=== PATIENT | male | born 1985 | race Caucasian/White ===

== ENCOUNTER 2023-06-08 20:18 | Emergency (ER) | payer OTHER, SELFPAY ==
[2023-06-08] VITALS (8 sets, daily range): BP systolic 119–181; BP diastolic 71–90; PULSE 90–125; RESP 14–55; TEMP 36.6; O2SAT 93–99; BMI 34.7
--- NOTE | 2023-06-08 20:33 | ECG_ITS ---
The [facility] Test Date: 2023-06-08 Pat Name: LOLIS QUINONES Department: Room: - Gender: Male All Source Intelligence: : 1985 Requested By: Order Number: [id number] Reading MD: QUOC KWONG Measurements Intervals [place] Rate: 89 P: 53 WV: 174 QRS: 85 QRSD: 112 T: 35 QT: 370 QTc: 416 Interpretive Statements 1100 Sinus rhythm 2440 Incomplete right bundle branch block 4068 Nonspecific Twave abnormality 9130 borderline ECG No previous ECG available for comparison Electronically Signed On 06-09-2023 18:42:19 EDT by QUOC KWONG
--- NOTE | 2023-06-08 20:34 | ED.GENADUL1 ---
HPI - General Adult General Chief complaint: Headache Stated complaint: STOKE LIKE SYMTOMS Time Seen by Provider: 06/08/23 20:27 History of Present Illness HPI narrative: 38-year-old male presents for a feeling of dizziness. It started about noon, the over eight hours ago. He doesn't seem to complain of a headache but he feels off balance and he felt like he was walking off to the side. He feels like he is spinning and he prefers to keep his eyes closed. No fever cough chest pain or shortness of breath. No localized weakness. Upon arrival he doesn't complain of weakness or headache, he just didn't feel good. He has no personal history of seizures. Related Data Allergies Allergy/AdvReac Type Severity Reaction Status Date / Time fentanyl Allergy Verified 06/08/23 20:27 Review of Systems ROS Narrative A ten point review of systems is negative except as noted above. Exam Narrative Exam Narrative: Nurses note and vital signs reviewed and patient is not hypoxic. General: The patient appears well and in no apparent distress. Patient is resting comfortably on cart. Skin: Warm, dry, no pallor noted. There is no rash noted. Head: Normocephalic, atraumatic Eye: Normal conjunctiva, no drainage, EOMI. PERRL Ears, Nose, Mouth, and Throat: oral mucosa is moist. Nares patent. Cardiovascular: Regular Rate and Rhythm Respiratory: Patient is in no distress, no accessory muscle use, lungs are clear to auscultation, no wheezing, rales or rhonchi Back: non-tender GI: no tenderness to palpation, no masses appreciated. No rebound, guarding, or rigidity noted. Musculoskeletal: The patient has no evidence of calf tenderness, no pitting edema, symmetrical pulses noted bilaterally Neurological: A&O x4, normal speech; upper and lower extremity strength five out five and symmetric. Cranial nerves II through XII are intact. no pronator drift. Psychiatric: Cooperative Constitutional Vital Signs, click to edit/add: Last Vital Signs Temp 97.9 F 06/08/23 20:21 Pulse 113 H 06/08/23 23:35 Resp 16 06/08/23 23:35 BP 135/78 06/08/23 23:35 Pulse Ox 94 L 06/08/23 23:35 O2 Del Method Mechanical Ventilator 09/30/23 23:35 FiO2 70 06/08/23 22:20 Course Vital Signs Vital signs: Vital Signs Temperature 97.9 F 06/08/23 20:21 Pulse Rate 90 06/08/23 20:21 Respiratory Rate 14 06/08/23 20:21 Blood Pressure 141/90 06/08/23 20:21 Pulse Oximetry 94 L 06/08/23 20:21 Temperature 97.9 F 06/08/23 20:21 Pulse Rate 113 H 06/08/23 23:35 Respiratory Rate 16 06/08/23 23:35 Blood Pressure 135/78 06/08/23 23:35 Pulse Oximetry 94 L 06/08/23 23:35 Oxygen Delivery Method Mechanical Ventilator 06/08/23 23:35 Fraction of Inspired Oxygen 70 06/08/23 22:20 Medical Decision Making MDM Narrative Medical decision making narrative: Tests were ordered and this included CAT scan. 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 No acute bleed was found. The patient started stating that he didn't feel good and then he became unresponsive. He appeared to be having a seizure and he was given IV Ativan. This did not change the seizure so he was given more IV Ativan and again this did not have any effect on his seizure. He became tachypneic and his oxygen saturation was dropping and decision was made by me to intubate the patient. He was given IV Ativan and IV etomidate and ultimately IV vecuronium after he was intubated for airway control. I discussed the case thoroughly with his mother and father and they're requesting transfer to [facility]. I've spoken to the accepting physician there, Dr. Barreto who accepts the patient. Family is in agreement. She recommends loading with 4 g of IV Keppra but only 2500 mg are available to me so this was ordered. She also recommended CTA of head and neck and this was ordered as well. Result is pending at the time of this dictation. His workup shows a normal white blood cell count and normal electrolytes. No evidence of urinary tract infection and his drug screen is negative. I've no clinical suspicion of meningitis. Alcohol level is negative. Arrangements are made for transfer. Initial attempt was made to have him flown but due to weather this is not possible so mobile ICU is ordered. He was given another dose of IV vecuronium for the CTA of head and neck. The initial dose of vecuronium had worn off at that point and he does not appear to be having any seizures but was apparently uncomfortable and was moving. Family was updated throughout the entire emergency department encounter. Differential Diagnosis Differential Diagnosis: intracranial hemorrhage, seizure, stroke Lab Data Lab results reviewed: Yes I reviewed the patient's lab results Labs: Lab Results 06/08/23 06/08/23 06/08/23 Range/Units 20:30 22:15 22:16 WBC 8.9 (4.0-11.0) 10^3/uL RBC 5.31 (4.70-6.10) 10^6/uL Hgb 15.8 (14.0-18.0) g/dL Hct 47.4 (42.0-54.0) % MCV 89.3 (80.0-94.0) fL MCH 29.8 (25.9-34.0) pg MCHC 33.3 (29.9-35.2) g/dL RDW 13.3 (11.0-15.0) % Plt Count 266 (150-450) 10^3/uL MPV 10.1 (9.5-13.5) fL Neut % (Auto) 57.9 (43.0-75.0) % Lymph % (Auto) 31.8 (20.5-60.0) % [place] % (Auto) 7.6 (1.7-12.0) % Eos % (Auto) 1.6 (0.9-7.0) % Baso % (Auto) 0.9 (0.2-2.0) % Neut # (Auto) 5.2 (1.4-6.5) 10^3/uL Lymph # (Auto) 2.8 (1.2-3.8) 10^3/uL [place] # (Auto) 0.7 (0.3-0.8) 10^3/uL Eos # (Auto) 0.1 (0.0-0.7) 10^3/uL Baso # (Auto) 0.1 (0.0-0.1) 10^3/uL Abs Immat Gran (auto) 0.02 (0.00-0.03) 10^3/uL Imm/Tot Granulo (auto) 0.2 (0.0-0.5) % Sodium 138 (136-145) mmol/L Potassium 3.7 (3.5-5.1) mmol/L Chloride 104 (98-107) mmol/L Carbon Dioxide 25.7 (21.0-32.0) mmol/L Anion Gap 12.0 BUN 16.0 (7.0-18.0) mg/dL Creatinine 0.79 (0.70-1.30) mg/dL Est GFR ( Amer) >60 (>=60) Est GFR (Non-Af Amer) >60 (>=60) BUN/Creatinine Ratio 20.3 Glucose 107 H (74-106) mg/dL Calcium 8.8 (8.5-10.1) mg/dL Urine Color Lt. yellow (YELLOW) Urine Clarity Clear (CLEAR) Urine pH 6.5 (5.0-9.0) Ur Specific [place] 1.015 (1.005-1.025) Urine Protein Negative (NEG/TRACE) mg/dL Urine Glucose (UA) Negative (NEGATIVE) mg/dL Urine Ketones Negative (NEGATIVE) mg/dL Urine Occult Blood Negative (NEGATIVE) Urine Nitrite Negative (NEGATIVE) Urine Bilirubin Negative (NEGATIVE) Urine Urobilinogen 0.2 (0.2-1.0) EU/dL Ur Leukocyte Esterase Negative (NEGATIVE) Urine RBC 0-2 (0-2) #/HPF Urine WBC 0-2 A (NONE SEEN) #/HPF Ur Squamous Epith Cells Rare (NONE/RARE) #/LPF Urine Crystals None seen (None Seen) #/HPF Urine Bacteria None seen (NONE SEEN) #/HPF Urine Casts Seen A (NONE SEEN) #/LPF Hyaline Casts Few Urine Mucus None seen (NONE SEEN) Urine Opiates Screen Negative (NEGATIVE) Ur Buprenorphine Scrn Negative (NEGATIVE) Ur Oxycodone Screen Negative (NEGATIVE) Urine Methadone Screen Negative (NEGATIVE) Ur Propoxyphene Screen Negative (NEGATIVE) Ur Barbiturates Screen Negative (NEGATIVE) U Tricyclic Antidepress Negative (NEGATIVE) Ur Phencyclidine Scrn Negative (NEGATIVE) Ur Amphetamines Screen Negative (NEGATIVE) U Methamphetamines Scrn Negative (NEGATIVE) U Benzodiazepines Scrn Negative (NEGATIVE) Urine Cocaine Screen Negative (NEGATIVE) U Cannabinoids Screen Negative (NEGATIVE) Ethanol Quant <3 mg/dL Imaging Data CT scan - head: Radiologist's impression: Procedure: CT head/brain wo con EXAM: CT head/brain wo con REASON FOR EXAM: Male, 38 years, dizzy. TECHNIQUE: Computed tomography of the head is performed in the axial projection from the base of the skull to the vertex. Sagittal and coronal reconstructed images are performed. Dose reduction techniques were achieved by using automated exposure control and/or adjustment of mA and/or KVP according to patient size and/or use of iterative reconstruction technique. COMPARISON: MRI 08/03/2015. 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 Normal calvarium. There is slight asymmetry to the ventricles, with the right lateral ventricle larger than the left. Normal brain parenchyma. Normal basal ganglia. Normal brainstem. The foramen magnum appears somewhat small. There is basilar invagination. There is calcification along the falx. There is no evidence for acute ischemia. There is no evidence for acute hemorrhage. The visualized paranasal sinuses are clear. 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 This finding was present on remote MRI is dating back to 04/20/2013 and 07/21/2015. 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 No acute hemorrhage is seen. The artificial intelligence algorithm dustlike this study as positive for intracranial hemorrhage, but this finding is due to the serpiginous vessel in the posterior fossa rather than a true hemorrhage. Electronically authenticated by: FRANCHESKA DANIELLE Date: 06/08/2023 21:40 Procedure: XR chest 1V EXAM: XR chest 1V HISTORY: postintubation COMPARISON: Chest radiographs dated 03/30/2021. TECHNIQUE: One view of the chest was obtained. FINDINGS: ACDF hardware is partially imaged in the lower cervical spine. An endotracheal tube terminates approximately 3.5 cm above the yazan. A nasogastric tube courses toward the upper abdomen though the tip is not seen. The cardiac silhouette is enlarged and increased in size compared to prior examination. There is linear atelectasis in the mid lungs. There are bibasilar opacities. There is no significant pneumothorax or pleural effusion. No acute osseous abnormality is seen. IMPRESSION: 1. An endotracheal tube terminates approximately 3.5 cm above the yazan. 2. Enlarged cardiac silhouette with bibasilar opacities which could represent atelectasis, aspiration changes, and/or pneumonia. Electronically authenticated by: Samara IBANEZ Date: 06/08/2023 22:48 ECG Data Attestation: I personally reviewed and interpreted this ECG as follows: (EKG on my interpretation shows normal sinus rhythm without acute change and a rate of 89.) Critical Care Time Critical Care Time Critical Care Time: Yes Total Critical Care Time: 120 Attestation: Due to the high probability of sudden and clinically significant deterioration in the patient's condition he/she required the highest level of my preparedness to intervene urgently I provided critical care time including documentation time, medication orders and management, reevaluation, vital sign assessment, ordering and reviewing of lab tests, ordering and reviewing of x-ray studies, and admission orders. Aggregate critical care time is 120 minutes including only time during which I was engaged in work directly related to his/her care and did not include time spent treating other patients simultaneously. Discharge Plan Discharge Chief Complaint: Headache Clinical Impression: Respiratory failure, Status epilepticus Patient Disposition: [facility] Time of Disposition Decision: 22:00 Discharge Location: [facility] Condition: Critical Mode of Transportation: EMS Procedures ED Procedure Instructions Procedures Procedures: The following procedure was performed by me. I made the decision to intubate this patient for airway control. His O2 sat was dropping and his teeth were clenched and he was becoming more tachypneic. He was given IV Ativan and IV etomidate. He was orotracheally intubated by me with a 7-0 tube with direct visualization of the tube passing between the cords and appropriate change on the capnometer. O2 saturation came up.
--- NOTE | 2023-06-08 20:41 | PC.NURSE ---
patients states around noon at work he developed some left sided weakness and felt like he had slurred speech. patient states he then went home and tried to get some rest but then around 730pm patientss mother states she is a nurse and assessed patient and felt like he had a left droop. this RN assessed patient and called dr stokes into room to assess patient. this RN did not observe slurred speech, no droop, patient trasferred self from wheelchair to bed. dr stokes at bedside and assessed patient and discussed plan of care with patient and patients mother. both verbalized understanding and agreement. IV established, EKG obtained.
[2023-06-08 20:58] LABS: Basophils Absolute Auto 0.1 10^3/uL (0.0-0.1); Basophils Percent Auto 0.9 % (0.2-2.0); Eosinophils Absolute Auto 0.1 10^3/uL (0.0-0.7); Eosinophils Percent Auto 1.6 % (0.9-7.0); Hematocrit 47.4 % (42.0-54.0); Hemoglobin 15.8 g/dL (14.0-18.0); Immature Granulocytes Abs Auto 0.02 10^3/uL (0.00-0.03); Immature Granulocytes Pct Auto 0.2 % (0.0-0.5); Lymphocytes Absolute Auto 2.8 10^3/uL (1.2-3.8); Lymphocytes Percent Auto 31.8 % (20.5-60.0); Mean Corpuscular HGB Conc 33.3 g/dL (29.9-35.2); Mean Corpuscular Hemoglobin 29.8 pg (25.9-34.0); Mean Corpuscular Volume 89.3 fL (80.0-94.0); Mean Platelet Volume 10.1 fL (9.5-13.5); Monocytes Absolute Auto 0.7 10^3/uL (0.3-0.8); Monocytes Percent Auto 7.6 % (1.7-12.0); Neutrophils Absolute Auto 5.2 10^3/uL (1.4-6.5); Neutrophils Percent Auto 57.9 % (43.0-75.0); Platelet Count 266 10^3/uL (150-450); Red Blood Count 5.31 10^6/uL (4.70-6.10); Red Cell Distribution Width 13.3 % (11.0-15.0); White Blood Count 8.9 10^3/uL (4.0-11.0)
[2023-06-08] MEDS: LORAZEPAM 2 MG/ML 1 ML VIAL 1 MG IV (21:27)
[2023-06-08 21:38] LABS: BUN Creatinine Ratio 20.3; Calcium 8.8 mg/dL (8.5-10.1); Carbon Dioxide 25.7 mmol/L (21.0-32.0); Chloride 104 mmol/L (98-107); Estimated GFR (African America >60 (>=60); Estimated GFR (Non-African Ame >60 (>=60); Glucose 107 mg/dL (74-106); Potassium 3.7 mmol/L (3.5-5.1); Sodium 138 mmol/L (136-145)
[2023-06-08] MEDS: VECURONIUM BROMIDE 10 MG VIAL IV (21:44)
--- NOTE | 2023-06-08 22:00 | XR_ITS ---
The [address] [address] Patient Name: LOLIS QUINONES MRN: [id number] date: 1985 Sex: M Assigned Patient Location: ER Current Patient Location: ER Accession/Order Number: [id number] Exam Date: 06/08/2023 22:01 Report Date: 06/08/2023 22:48 At the request of: ADRIÁN NICKERSON Procedure: XR chest 1V EXAM: XR chest 1V HISTORY: postintubation COMPARISON: Chest radiographs dated 03/30/2021. TECHNIQUE: One view of the chest was obtained. FINDINGS: ACDF hardware is partially imaged in the lower cervical spine. An endotracheal tube terminates approximately 3.5 cm above the yazan. A nasogastric tube courses toward the upper abdomen though the tip is not seen. The cardiac silhouette is enlarged and increased in size compared to prior examination. There is linear atelectasis in the mid lungs. There are bibasilar opacities. There is no significant pneumothorax or pleural effusion. No acute osseous abnormality is seen. XR/XR chest 1V IMPRESSION: 1. An endotracheal tube terminates approximately 3.5 cm above the yazan. 2. Enlarged cardiac silhouette with bibasilar opacities which could represent atelectasis, aspiration changes, and/or pneumonia. Electronically authenticated by: Samara IBANEZ Date: 06/08/2023 22:48
--- NOTE | 2023-06-08 22:15 | CT_ITS ---
[address] [address] Patient Name: LOLIS QUINONES MRN: [id number] date: 1985 Sex: M Assigned Patient Location: ER Current Patient Location: .MAIN Accession/Order Number: [id number] Exam Date: 06/08/2023 23:20 Report Date: 06/09/2023 00:17 At the request of: ADRIÁN NICKERSON Procedure: CT angio head CT angio neck, CT angio head INDICATION:38 years old; headache. Left-sided weakness and slurred speech with headache since noon today. Tingling and numbness in left hand since 7:30 PM.. TECHNIQUE: CT angiogram of the head and neck was performed. Coronal, sagittal and 3-D reformats were created and reviewed. Images were obtained both before and after contrast administration. Carotid stenosis measurements were made according to the NASCET criteria. Ionizing radiation dose reduced via iterative reconstruction/FBP blend and body size kV/mA adjustment. COMPARISON: Head CT dated 06/08/2023 at 8:51 PM. Brain MRI dated 08/03/2015. Chest CT dated 12/11/2021. FINDINGS: NECK FINDINGS: AORTIC ARCH: Normal origin of the innominate, left common carotid and left subclavian arteries. ANTERIOR CIRCULATION: Carotid arteries are patent. Carotid bifurcations are patent. Cervical ICA are patent up to the skull base. There is a vascular loop in the distal cervical ICA on the right. No stenosis or thrombus. No dissection. POSTERIOR CIRCULATION: The V1, V2, and V3 segments of vertebral artery on the left are patent. The right vertebral artery is occluded in the proximal V1 segment. No distal reconstitution is seen. DEVELOPMENTAL ANOMALIES: None. OTHER: Atelectasis versus dense consolidation within the visualized portion of the right lung. Recommend chest CT. HEAD BRAIN: Please see the report of the noncontrast head CT. ANTERIOR CIRCULATION: The intrapetrous, intracavernous, supraclinoid ICA are patent. Intracranial termini are patent. LEONIDAS patent bilaterally. MCA patent bilaterally. No stenosis or thrombus. No large vessel occlusion. Distal distributions are bilaterally symmetric. POSTERIOR CIRCULATION: The right vertebral artery is occluded with no intracranial reconstitution. There is fusiform dilatation and enlargement of the V4 segment of the left vertebral artery and basilar artery consistent with fusiform aneurysmal dilatation. This extends up to the midportion of the basilar artery. The basilar artery measures 10.88 mm in largest diameter. No intraluminal thrombus is appreciated. The AICA on the right arises from the aneurysmal dilatation. The PICA on the left arises from the dilated portion of the distal V4 segment. Basilar tip is a normal appearance. SCA patent bilaterally. PRESSURE WASHER patent bilaterally. Distal PRESSURE WASHER distributions are symmetric. No large vessel occlusion. DEVELOPMENTAL ANOMALIES: None. OTHER: No enhancing masses are seen. CT/CT angio head IMPRESSION: 1. 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 Previous MRI showed normal flow void in the right vertebral artery. 2. 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 Basilar artery measures up to 10.88 mm in largest diameter. The right AICA arises from the aneurysmal portion of the basilar artery. The left PICA arises from the aneurysmal portion of the left vertebral artery. Allowing for differences in technique, this appears to be larger as compared to the prior MRI This study was read during a downtime in the [employer] PACS system. The actual time dictated and approved is in the body of the report. A telephone call regarding the findings in examination was made to and acknowledged by Dr. Nickerson in emergency department at 12:00 AM on 06/09/2023. Electronically authenticated by: NAVEEN BAIRD Date: 06/09/2023 00:17
--- NOTE | 2023-06-08 22:15 | CT_ITS ---
[address] [address] Patient Name: LOLIS QUINONES MRN: [id number] date: 1985 Sex: M Assigned Patient Location: ER Current Patient Location: .MAIN Accession/Order Number: [id number] Exam Date: 06/08/2023 23:20 Report Date: 06/09/2023 00:17 At the request of: ADRIÁN NICKERSON Procedure: CT angio neck CT angio neck, CT angio head INDICATION:38 years old; headache. Left-sided weakness and slurred speech with headache since noon today. Tingling and numbness in left hand since 7:30 PM.. TECHNIQUE: CT angiogram of the head and neck was performed. Coronal, sagittal and 3-D reformats were created and reviewed. Images were obtained both before and after contrast administration. Carotid stenosis measurements were made according to the NASCET criteria. Ionizing radiation dose reduced via iterative reconstruction/FBP blend and body size kV/mA adjustment. COMPARISON: Head CT dated 06/08/2023 at 8:51 PM. Brain MRI dated 08/03/2015. Chest CT dated 12/11/2021. FINDINGS: NECK FINDINGS: AORTIC ARCH: Normal origin of the innominate, left common carotid and left subclavian arteries. ANTERIOR CIRCULATION: Carotid arteries are patent. Carotid bifurcations are patent. Cervical ICA are patent up to the skull base. There is a vascular loop in the distal cervical ICA on the right. No stenosis or thrombus. No dissection. POSTERIOR CIRCULATION: The V1, V2, and V3 segments of vertebral artery on the left are patent. The right vertebral artery is occluded in the proximal V1 segment. No distal reconstitution is seen. DEVELOPMENTAL ANOMALIES: None. OTHER: Atelectasis versus dense consolidation within the visualized portion of the right lung. Recommend chest CT. HEAD BRAIN: Please see the report of the noncontrast head CT. ANTERIOR CIRCULATION: The intrapetrous, intracavernous, supraclinoid ICA are patent. Intracranial termini are patent. LEONIDAS patent bilaterally. MCA patent bilaterally. No stenosis or thrombus. No large vessel occlusion. Distal distributions are bilaterally symmetric. POSTERIOR CIRCULATION: The right vertebral artery is occluded with no intracranial reconstitution. There is fusiform dilatation and enlargement of the V4 segment of the left vertebral artery and basilar artery consistent with fusiform aneurysmal dilatation. This extends up to the midportion of the basilar artery. The basilar artery measures 10.88 mm in largest diameter. No intraluminal thrombus is appreciated. The AICA on the right arises from the aneurysmal dilatation. The PICA on the left arises from the dilated portion of the distal V4 segment. Basilar tip is a normal appearance. SCA patent bilaterally. NET REPAIRER patent bilaterally. Distal NET REPAIRER distributions are symmetric. No large vessel occlusion. DEVELOPMENTAL ANOMALIES: None. OTHER: No enhancing masses are seen. CT/CT angio neck IMPRESSION: 1. 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 Previous MRI showed normal flow void in the right vertebral artery. 2. 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 Basilar artery measures up to 10.88 mm in largest diameter. The right AICA arises from the aneurysmal portion of the basilar artery. The left PICA arises from the aneurysmal portion of the left vertebral artery. Allowing for differences in technique, this appears to be larger as compared to the prior MRI This study was read during a downtime in the [employer] PACS system. The actual time dictated and approved is in the body of the report. A telephone call regarding the findings in examination was made to and acknowledged by Dr. Nickerson in emergency department at 12:00 AM on 06/09/2023. Electronically authenticated by: NAVEEN BAIRD Date: 06/09/2023 00:17
--- NOTE | 2023-06-08 22:35 | PC.NURSE ---
2109 was called to room by mother. Patient had stated to her he could not swallow and felt SOB. Vomited while in the room. Dr aware and orders received. In to medicated at 2214 and found patient unresponsive with grunting respirations and decorticate posturing. Dr called to room. Patient moved to room 6.
[2023-06-08 22:42] LABS: Ethanol <3 mg/dL
--- NOTE | 2023-06-08 22:44 | PC.NURSE ---
Addendum entered by Preeti Louie 06/08/23 23:30: Patient was placed on 70% not 40%. Original Note: 0535 Dr at cart side to intubate with 3 RN's and Respiratory. Placed a #7 ET tube 24 at lip. Vent settings Rate 18 TV 550 O2 40% Peep of 5 and rate of 14.
[2023-06-08 22:58] LABS: Amphetamine Screen Urine NEGATIVE (NEGATIVE); Barbiturates Screen Urine NEGATIVE (NEGATIVE); Benzodiazepines Screen Urine NEGATIVE (NEGATIVE); Buprenorphine Screen Urine NEGATIVE (NEGATIVE); Cannabinoid Screen Urine NEGATIVE (NEGATIVE); Cocaine Screen Urine NEGATIVE (NEGATIVE); Methadone Screen Urine NEGATIVE (NEGATIVE); Methamphetamines Screen Urine NEGATIVE (NEGATIVE); Opiate Screen Urine NEGATIVE (NEGATIVE); Oxycodone Screen Urine NEGATIVE (NEGATIVE); Phencyclidine Screen Urine NEGATIVE (NEGATIVE); Tricyclic Antidepressant Urine NEGATIVE (NEGATIVE)
[2023-06-08 22:59] LABS: Bilirubin Urine NEGATIVE (NEGATIVE); Blood Urine NEGATIVE (NEGATIVE); Clarity Urine CLEAR (CLEAR); Color Urine LT. YELLOW (YELLOW); Glucose Urine UA NEGATIVE (NEGATIVE); Ketones Urine NEGATIVE (NEGATIVE); Leukocyte Esterase Urine NEGATIVE (NEGATIVE); Nitrite Urine NEGATIVE (NEGATIVE); Protein Urine NEGATIVE (NEG/TRACE); Specific Gravity Urine 1.015 (1.005-1.025); Urobilinogen Urine 0.2 EU/dL (0.2-1.0); pH Urine 6.5 (5.0-9.0)
[2023-06-08 23:13] LABS: Bacteria Urine NONE SEEN #/HPF (NONE SEEN); RBC Urine 0-2 #/HPF (0-2); WBC Urine 0-2 #/HPF (NONE SEEN)
[2023-06-08 23:15] LABS: Cast Seen? SEEN #/LPF (NONE SEEN); Crystals Seen? None Seen #/HPF (None Seen); Hyaline Casts Urine FEW; Mucus Urine NONE SEEN (NONE SEEN); Squamous Epithelial Cell Urine RARE #/LPF (NONE/RARE)
--- NOTE | 2023-06-08 23:34 | PC.NURSE ---
2155 #16 Fr. NG placed left nare. Placement verified and hooked to suction with return of reddish cervantes
--- NOTE | 2023-06-08 23:39 | PC.NURSE ---
2215 Soft restraints placed.
[2023-06-09] MEDS: VECURONIUM BROMIDE 10 MG VIAL IV (00:08)
--- NOTE | 2023-06-09 00:58 | PC.NURSE ---
Report to [facility].[phone]
[2023-06-09] MEDS: LORAZEPAM 2 MG/ML 1 ML VIAL IV ×2 (01:01→01:02)
[2023-06-09] MEDS: LORAZEPAM 2 MG/ML 1 ML VIAL 1 MG IV (01:01)
== END 2023-06-09 00:50 | disposition short-term general hospital (02) ==
PROVIDERS: Emergency Provider Emergency Medicine; PCP Family Medicine
DX: G40.801 Other epilepsy, not intractable, with status epilepticus (principal); J96.90 Respiratory failure, unspecified, unspecified whether with hypoxia or hypercapnia
CPT/HCPCS: 31500; 36415; 70450; 70496; 70498; 71045; 80048; 80307; 80320; 81001; 85025; 93005; 94002; 96374; 96375; 96376; 99291; 99292; Q9967

== ENCOUNTER 2023-10-29 16:29 | Outpatient (REF) | payer OTHER, SELFPAY ==
[2023-10-29 16:40] LABS: Estimated GFR (African America >60 (>=60); Estimated GFR (Non-African Ame >60 (>=60)
[2023-10-29 16:48] LABS: Basophils Absolute Auto 0.1 10^3/uL (0.0-0.1); Basophils Percent Auto 0.9 % (0.2-2.0); Eosinophils Absolute Auto 0.2 10^3/uL (0.0-0.7); Hematocrit 32.3 % (42.0-54.0); Hemoglobin 9.2 g/dL (14.0-18.0); Immature Granulocytes Abs Auto 0.04 10^3/uL (0.00-0.03); Immature Granulocytes Pct Auto 0.4 % (0.0-0.5); Lymphocytes Absolute Auto 1.9 10^3/uL (1.2-3.8); Lymphocytes Percent Auto 16.9 % (20.5-60.0); Mean Corpuscular HGB Conc 28.5 g/dL (29.9-35.2); Mean Corpuscular Hemoglobin 25.1 pg (25.9-34.0); Mean Corpuscular Volume 88.3 fL (80.0-94.0); Mean Platelet Volume 11.1 fL (9.5-13.5); Monocytes Absolute Auto 0.5 10^3/uL (0.3-0.8); Monocytes Percent Auto 4.2 % (1.7-12.0); Neutrophils Absolute Auto 8.5 10^3/uL (1.4-6.5); Neutrophils Percent Auto 75.6 % (43.0-75.0); Platelet Count 489 10^3/uL (150-450); Red Blood Count 3.66 10^6/uL (4.70-6.10); Red Cell Distribution Width 18.4 % (11.0-15.0); White Blood Count 11.3 10^3/uL (4.0-11.0)
== END 2023-10-29 16:30 | disposition home or self-care (01) ==
LOC: LAB 16:29
PROVIDERS: PCP Family Medicine
DX: J96.10 Chronic respiratory failure, unspecified whether with hypoxia or hypercapnia (principal)
CPT/HCPCS: 36415; 82565; 85025

== ENCOUNTER 2023-11-04 18:24 | Outpatient (REF) | payer OTHER, SELFPAY ==
[2023-11-04 23:20] LABS: Basophils Absolute Auto 0.1 10^3/uL (0.0-0.1); Basophils Percent Auto 0.9 % (0.2-2.0); Eosinophils Absolute Auto 0.3 10^3/uL (0.0-0.7); Eosinophils Percent Auto 3.9 % (0.9-7.0); Hematocrit 33.4 % (42.0-54.0); Hemoglobin 9.5 g/dL (14.0-18.0); Immature Granulocytes Abs Auto 0.02 10^3/uL (0.00-0.03); Immature Granulocytes Pct Auto 0.2 % (0.0-0.5); Lymphocytes Absolute Auto 2.3 10^3/uL (1.2-3.8); Lymphocytes Percent Auto 27.3 % (20.5-60.0); Mean Corpuscular HGB Conc 28.4 g/dL (29.9-35.2); Mean Corpuscular Hemoglobin 25.5 pg (25.9-34.0); Mean Corpuscular Volume 89.5 fL (80.0-94.0); Mean Platelet Volume 11.4 fL (9.5-13.5); Monocytes Absolute Auto 0.5 10^3/uL (0.3-0.8); Monocytes Percent Auto 6.1 % (1.7-12.0); Neutrophils Absolute Auto 5.3 10^3/uL (1.4-6.5); Neutrophils Percent Auto 61.6 % (43.0-75.0); Platelet Count 469 10^3/uL (150-450); Red Blood Count 3.73 10^6/uL (4.70-6.10); Red Cell Distribution Width 18.6 % (11.0-15.0); White Blood Count 8.6 10^3/uL (4.0-11.0)
[2023-11-04 23:22] LABS: Estimated GFR (African America >60 (>=60); Estimated GFR (Non-African Ame >60 (>=60)
== END 2023-11-04 18:25 | disposition home or self-care (01) ==
LOC: LAB 18:24
PROVIDERS: PCP Family Medicine
DX: J96.00 Acute respiratory failure, unspecified whether with hypoxia or hypercapnia (principal)
CPT/HCPCS: 36415; 82565; 85025

== ENCOUNTER 2023-11-21 07:26 | Emergency (ER) | payer OTHER, SELFPAY ==
[2023-11-21] VITALS (33 sets, daily range): BP systolic 97–150; BP diastolic 57–78; PULSE 75–159; RESP 14–38; TEMP 38.6; O2SAT 91–100; BMI 24.4
--- NOTE | 2023-11-21 07:27 | XR_ITS ---
The [address] [address] Patient Name: LOLIS QUINONES MRN: [id number] date: 1985 Sex: M Assigned Patient Location: ED.MAIN Current Patient Location: ED.MAIN Accession/Order Number: [id number] Exam Date: 11/21/2023 07:40 Report Date: 11/21/2023 08:15 At the request of: ADRIÁN NICKERSON Procedure: XR chest 1V EXAMINATION: XR chest 1V HISTORY: Vomiting, possible aspiration COMPARISON: XR chest 06/08/2023 FINDINGS: LUNGS: Tracheostomy tube versus endotracheal tube with tip 6.2 cm above the yazan. Underexpanded lungs with patchy opacities within right lung base and partial obscuration of left hemidiaphragm. MEDIASTINUM: No abnormal widening. BOWEL GAS PATTERN: Non-obstructed. FREE AIR: None. CALCIFICATIONS: None significant. BONES: No fracture or visible bone lesion. OTHER: Negative. XR/XR chest 1V IMPRESSION: 1. Tracheostomy tube present endotracheal tube with tip 6.2 cm above the yazan. 2. Underexpanded lungs with mild bibasilar infiltrates versus atelectasis, right greater than left. Electronically authenticated by: JOSE DENT Date: 11/21/2023 08:15
--- NOTE | 2023-11-21 07:27 | ECG_ITS ---
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
--- NOTE | 2023-11-21 07:28 | CT_ITS ---
[address] [address] Patient Name: LOLIS QUINONES MRN: [id number] date: 1985 Sex: M Assigned Patient Location: ER Current Patient Location: ER Accession/Order Number: [id number] Exam Date: 11/21/2023 09:15 Report Date: 11/21/2023 10:36 At the request of: ADRIÁN NICKERSON Procedure: CT abdomen pelvis w con EXAMINATION: CT abdomen pelvis w con HISTORY: Vomiting, possible GI bleed COMPARISON: CT abdomen pelvis 01/20/2019 TECHNIQUE: Axial, Coronal, and Sagittal images were obtained without and/or with IV contrast as indicated by examination type. Dose reduction techniques were achieved by using automated exposure control and/or adjustment of mA and/or kV according to patient size and/or use of iterative reconstruction technique. FINDINGS: LUNG BASES: Complete consolidation of the visible portions of bilateral lower lobes. Small left pleural effusion. LIVER: No enlargement, atrophy, suspicious density, or significant focal lesion. BILIARY: No dilatation or calcification. PANCREAS: No lesion, fluid collection, or abnormal duct dilatation. SPLEEN: No enlargement or focal lesion. ADRENALS: No mass or enlargement. KIDNEYS: 2 mm nonobstructing stone within right kidney. Unremarkable left kidney and bilateral ureters. BOWEL/MESENTERY: Questionable mild circumferential wall thickening of distal rectum. PEG tube within stomach without evidence of leakage. No focal wall thickening or appreciable abnormality of the small bowel. AORTA/VASCULAR: No aneurysm or dissection. RETROPERITONEUM: No mass or adenopathy. LYMPH NODES: No adenopathy. URINARY BLADDER: Contains numerous small stones. No wall thickening or inflammatory changes. PELVIC ORGANS: No visible mass. Pelvic organs appropriate for patient age. ABDOMINAL WALL: 6.5 cm fat filled umbilical hernia without strangulation. Small fat filled left inguinal hernia. BONES: Grade 2 left lateral and grade 1 anterior listhesis of L2 on 3 with marked degenerative disc disease resulting in central canal and foraminal stenosis. Prominent degenerative sclerotic endplate changes at this level. OTHER: Negative. CT/CT abdomen pelvis w con IMPRESSION: 1. Consolidation of bilateral lower lobe; pneumonia versus pneumonitis? 2. Small left pleural effusion. 3. Nonobstructing right nephrolithiasis and multiple small stones within urinary bladder. 4. PEG tube within stomach; no appreciable leakage or bowel wall thickening. 5. Questionable circumferential wall thickening of distal rectum; possible mild proctitis. 6. Fat filled umbilical and left inguinal hernias without strangulation. 7. Marked degenerative changes of lumbar spine at L2-3 resulting in central canal and foraminal stenosis; not significantly changed. Electronically authenticated by: JOSE DENT Date: 11/21/2023 10:36
--- NOTE | 2023-11-21 07:31 | ED_ITS ---
HPI - General Adult General Chief complaint: Shortness of Breath/Dyspnea Stated complaint: Shortness of Breath Time Seen by Provider: 11/21/23 07:27 History of Present Illness HPI narrative: 38-year-old male presents to the emergency department for evaluation. Paramedics brought him in from [facility]. He has a trach and they had to suction out a great deal of coffee-ground emesis from the trach and he had vomited it out of his mouth as well. He is nonverbal and is unable to provide us any history at all. Related Data Home Medications Medication Instructions Recorded Confirmed acetaminophen 325 mg tablet (Pain 650 mg PO Q4H PRN fever or pain 11/21/23 11/21/23 Relief (acetaminophen)) albuterol sulfate 2.5 mg/3 mL 2.5 mg inhalation Q4H PRN 11/21/23 11/21/23 (0.083 %) solution for nebulization shortness of breath or wheezing alprazolam 1 mg tablet 1 mg PO TID PRN anxiety 11/21/23 11/21/23 apixaban 5 mg tablet (Eliquis) 5 mg PO Q12H 11/21/23 11/21/23 baclofen 5 mg tablet 5 mg feeding tube Q8H 11/21/23 11/21/23 cetirizine 10 mg capsule (All Day 10 mg PO DAILY 11/21/23 11/21/23 Allergy (cetirizine)) escitalopram oxalate 10 mg tablet 10 mg feeding tube DAILY 11/21/23 11/21/23 gabapentin 250 mg/5 mL oral 300 mg feeding tube TID 11/21/23 11/21/23 solution metoprolol tartrate 25 mg tablet 25 mg feeding tube Q12H 11/21/23 11/21/23 oxycodone 10 mg tablet 10 mg feeding tube Q6H 11/21/23 11/21/23 polyethylene glycol 3350 17 17 g PO DAILY 11/21/23 11/21/23 gram/dose oral powder (ClearLax) sennosides 8.6 mg tablet (Keena-jigar) 8.6 mg PO DAILY 11/21/23 11/21/23 Allergies Allergy/AdvReac Type Severity Reaction Status Date / Time fentanyl Allergy Severe Anaphylaxis Verified 11/21/23 09:59 Calcium Channel Blocking Allergy Unknown Unknown Verified 11/21/23 07:36 Agents-Dih fluoxetine [From Prozac] Allergy Unknown Verified 11/21/23 07:36 Review of Systems ROS Narrative Not obtainable, nonverbal Exam Narrative Exam Narrative: Nurses note and vital signs reviewed and patient is not hypoxic. General: The patient is nonverbal. He appears somewhat pale Skin: Warm, dry, pallor noted. There is no rash noted. Head: Prominent forehead, atraumatic Eye: Normal conjunctiva, no drainage Ears, Nose, Mouth, and Throat: oral mucosa is moist. Nares patent. He has some dried coffee-ground emesis around his mouth Cardiovascular: Regular Rate and Rhythm, tachycardic Respiratory: Tracheostomy in place with bilateral breath sounds GI: The abdomen is mildly distended. He may have a small umbilical hernia Musculoskeletal: No acute joint deformity Neurological: Nonverbal, looking around the room Psychiatric: Cannot be assessed Constitutional Vital Signs, click to edit/add: Last Vital Signs Pulse 145 H 11/21/23 10:45 Resp 19 11/21/23 10:45 BP 108/62 11/21/23 10:45 Pulse Ox 96 11/21/23 10:47 O2 Del Method Mechanical Ventilator 11/21/23 10:47 FiO2 45 11/21/23 10:47 Course Vital Signs Vital signs: Vital Signs Pulse Rate 158 H 11/21/23 07:28 Respiratory Rate 24 11/21/23 07:28 Pulse Oximetry 95 11/21/23 07:28 Pulse Rate 145 H 11/21/23 10:45 Respiratory Rate 19 11/21/23 10:45 Blood Pressure 108/62 11/21/23 10:45 Pulse Oximetry 96 11/21/23 10:47 Oxygen Delivery Method Mechanical Ventilator 11/21/23 10:47 Fraction of Inspired Oxygen 45 11/21/23 10:47 Medical Decision Making MDM Narrative Medical decision making narrative: The patient is found to have pneumonia and a white count of 21,000. Blood cultures were obtained and then he was given IV Zosyn and vancomycin. He had recent biliary issues and had a biliary drain that was removed several weeks ago. CT scan and LFTs however are normal in that regard. No evidence of intracranial process. I have spoken with Dr. Benavidez at the [facility] and the nurse practitioner at the [facility] who accept the patient. Mother is requesting transfer there and he is stable for transfer and she is agreeable to have him transferred there. No evidence of UTI. Differential Diagnosis Differential Diagnosis: Pneumonia, UTI, intra-abdominal infection Medical Records Medical records reviewed: Yes I reviewed the patient's medical records Lab Data Lab results reviewed: Yes I reviewed the patient's lab results Labs: Lab Results 11/21/23 11/21/23 11/21/23 Range/Units 07:30 08:05 08:13 WBC 21.7 H (4.0-11.0) 10^3/uL RBC 4.15 L (4.70-6.10) 10^6/uL Hgb 10.3 L (14.0-18.0) g/dL Hct 35.5 L (42.0-54.0) % MCV 85.5 (80.0-94.0) fL MCH 24.8 L (25.9-34.0) pg MCHC 29.0 L (29.9-35.2) g/dL RDW 17.1 H (11.0-15.0) % Plt Count 496 H (150-450) 10^3/uL MPV 11.1 (9.5-13.5) fL Neut % (Auto) 88.9 H (43.0-75.0) % Lymph % (Auto) 6.3 L (20.5-60.0) % [place] % (Auto) 3.4 (1.7-12.0) % Eos % (Auto) 0.4 L (0.9-7.0) % Baso % (Auto) 0.5 (0.2-2.0) % Neut # (Auto) 19.3 H (1.4-6.5) 10^3/uL Lymph # (Auto) 1.4 (1.2-3.8) 10^3/uL [place] # (Auto) 0.7 (0.3-0.8) 10^3/uL Eos # (Auto) 0.1 (0.0-0.7) 10^3/uL Baso # (Auto) 0.1 (0.0-0.1) 10^3/uL Abs Immat Gran (auto) 0.10 H (0.00-0.03) 10^3/uL Imm/Tot Granulo (auto) 0.5 (0.0-0.5) % Sodium 143 (136-145) mmol/L Potassium 4.1 (3.5-5.1) mmol/L Chloride 101 (98-107) mmol/L Carbon Dioxide 33.6 H (21.0-32.0) mmol/L Anion Gap 12.5 BUN 26.0 H (7.0-18.0) mg/dL Creatinine 0.87 (0.70-1.30) mg/dL Est GFR ( Amer) >60 (>=60) Est GFR (Non-Af Amer) >60 (>=60) BUN/Creatinine Ratio 29.9 Glucose 135 H (74-106) mg/dL Lactate 1.8 (0.4-2.0) mmol/L Calcium 9.6 (8.5-10.1) mg/dL Total Bilirubin 0.3 (0.2-1.0) mg/dL Direct Bilirubin 0.1 (0.0-0.2) mg/dL AST 25 (15-37) U/L ALT 45 (16-63) U/L Alkaline Phosphatase 130 H (46-116) U/L Total Protein 7.3 (6.4-8.2) g/dL Albumin 2.4 L (3.4-5.0) g/dL Globulin 4.9 g/dL Albumin/Globulin Ratio 0.5 Amylase 50 (25-115) U/L Lipase 12.0 L (16.0-77.0) U/L Procalcitonin 0.45 (0.00-0.50) ng/mL Urine Color (YELLOW) Urine Clarity (CLEAR) Urine pH (5.0-9.0) Ur Specific Hydro (1.005-1.025) Urine Protein (NEG/TRACE) mg/dL Urine Glucose (UA) (NEGATIVE) mg/dL Urine Ketones (NEGATIVE) mg/dL Urine Occult Blood (NEGATIVE) Urine Nitrite (NEGATIVE) Urine Bilirubin (NEGATIVE) Urine Urobilinogen (0.2-1.0) EU/dL Ur Leukocyte Esterase (NEGATIVE) Urine RBC (0-2) #/HPF Urine WBC (NONE SEEN) #/HPF Ur Squamous Epith Cells (NONE/RARE) #/LPF Urine Crystals (None Seen) #/HPF Calcium Phosphate Cryst Calcium Oxalate Crystal Amorphous Sediment Urine Bacteria (NONE SEEN) #/HPF Urine Casts (NONE SEEN) #/LPF Urine Mucus (NONE SEEN) Ur Culture Indicated? Stool Occult Blood Negative POC Glucose 123 H (74-106) mg/dL 11/21/23 Range/Units 10:35 WBC (4.0-11.0) 10^3/uL RBC (4.70-6.10) 10^6/uL Hgb (14.0-18.0) g/dL Hct (42.0-54.0) % MCV (80.0-94.0) fL MCH (25.9-34.0) pg MCHC (29.9-35.2) g/dL RDW (11.0-15.0) % Plt Count (150-450) 10^3/uL MPV (9.5-13.5) fL Neut % (Auto) (43.0-75.0) % Lymph % (Auto) (20.5-60.0) % [place] % (Auto) (1.7-12.0) % Eos % (Auto) (0.9-7.0) % Baso % (Auto) (0.2-2.0) % Neut # (Auto) (1.4-6.5) 10^3/uL Lymph # (Auto) (1.2-3.8) 10^3/uL [place] # (Auto) (0.3-0.8) 10^3/uL Eos # (Auto) (0.0-0.7) 10^3/uL Baso # (Auto) (0.0-0.1) 10^3/uL Abs Immat Gran (auto) (0.00-0.03) 10^3/uL Imm/Tot Granulo (auto) (0.0-0.5) % Sodium (136-145) mmol/L Potassium (3.5-5.1) mmol/L Chloride (98-107) mmol/L Carbon Dioxide (21.0-32.0) mmol/L Anion Gap BUN (7.0-18.0) mg/dL Creatinine (0.70-1.30) mg/dL Est GFR ( Amer) (>=60) Est GFR (Non-Af Amer) (>=60) BUN/Creatinine Ratio Glucose (74-106) mg/dL Lactate (0.4-2.0) mmol/L Calcium (8.5-10.1) mg/dL Total Bilirubin (0.2-1.0) mg/dL Direct Bilirubin (0.0-0.2) mg/dL AST (15-37) U/L ALT (16-63) U/L Alkaline Phosphatase (46-116) U/L Total Protein (6.4-8.2) g/dL Albumin (3.4-5.0) g/dL Globulin g/dL Albumin/Globulin Ratio Amylase (25-115) U/L Lipase (16.0-77.0) U/L Procalcitonin (0.00-0.50) ng/mL Urine Color Lt. yellow (YELLOW) Urine Clarity Clear (CLEAR) Urine pH 7.5 (5.0-9.0) Ur Specific Hydro 1.010 (1.005-1.025) Urine Protein Negative (NEG/TRACE) mg/dL Urine Glucose (UA) Negative (NEGATIVE) mg/dL Urine Ketones Negative (NEGATIVE) mg/dL Urine Occult Blood Moderate A (NEGATIVE) Urine Nitrite Negative (NEGATIVE) Urine Bilirubin Negative (NEGATIVE) Urine Urobilinogen 0.2 (0.2-1.0) EU/dL Ur Leukocyte Esterase Large A (NEGATIVE) Urine RBC 2-5 A (0-2) #/HPF Urine WBC 5-10 A (NONE SEEN) #/HPF Ur Squamous Epith Cells Rare (NONE/RARE) #/LPF Urine Crystals Seen A (None Seen) #/HPF Calcium Phosphate Cryst Few Calcium Oxalate Crystal Moderate Amorphous Sediment Few Urine Bacteria Moderate A (NONE SEEN) #/HPF Urine Casts None seen (NONE SEEN) #/LPF Urine Mucus None seen (NONE SEEN) Ur Culture Indicated? Yes Stool Occult Blood POC Glucose (74-106) mg/dL Imaging Data Chest x-ray: Radiologist's impression: ITS Impressions Chest X-Ray 11/21/23 07:27 IMPRESSION: 1. Tracheostomy tube present endotracheal tube with tip 6.2 cm above the yazan. 2. Underexpanded lungs with mild bibasilar infiltrates versus atelectasis, right greater than left. Electronically authenticated by: JOSE DENT Date: 11/21/2023 08:15 Abdomen/Pelvis CT 11/21/23 07:28 IMPRESSION: 1. Consolidation of bilateral lower lobe; pneumonia versus pneumonitis? 2. Small left pleural effusion. 3. Nonobstructing right nephrolithiasis and multiple small stones within urinary bladder. 4. PEG tube within stomach; no appreciable leakage or bowel wall thickening. 5. Questionable circumferential wall thickening of distal rectum; possible mild proctitis. 6. Fat filled umbilical and left inguinal hernias without strangulation. 7. Marked degenerative changes of lumbar spine at L2-3 resulting in central canal and foraminal stenosis; not significantly changed. Electronically authenticated by: JOSE DENT Date: 11/21/2023 10:[address] 11/21/23 07:56 IMPRESSION: 1. No intracranial hemorrhage or appreciable acute abnormality. 2. Patent, but markedly abnormal dilation of the intracranial portions of the vertebral arteries and their confluence leading up to a normal caliber and patent basilar artery. No evidence of thrombus. Electronically authenticated by: JOSE DENT Date: 11/21/2023 10:24 ECG Data Attestation: I personally reviewed and interpreted this ECG as follows: (EKG on my interpretation shows sinus tachycardia with a rate of 149.) Critical Care Time Critical Care Time Critical Care Time: Yes Total Critical Care Time: 45 Attestation: Due to the high probability of sudden and clinically significant deterioration in the patient's condition he/she required the highest level of my preparedness to intervene urgently I provided critical care time including documentation time, medication orders and management, reevaluation, vital sign assessment, ordering and reviewing of lab tests, ordering and reviewing of x-ray studies, and admission orders. Aggregate critical care time is 45 minutes including only time during which I was engaged in work directly related to his/her care and did not include time spent treating other patients simultaneously. Discharge Plan Discharge Chief Complaint: Shortness of Breath/Dyspnea Clinical Impression: Pneumonia Patient Disposition: [facility] Time of Disposition Decision: 11:44 Discharge location: [facility] Mode of Transportation: EMS
[2023-11-21 07:40] LABS: Glucometer 123 mg/dL (74-106)
--- NOTE | 2023-11-21 07:56 | CT_ITS ---
The [address] [address] Patient Name: LOLIS QUINONES MRN: [id number] date: 1985 Sex: M Assigned Patient Location: ED.MAIN Current Patient Location: ED.MAIN Accession/Order Number: [id number] Exam Date: 11/21/2023 09:15 Report Date: 11/21/2023 10:24 At the request of: ADRIÁN NICKERSON Procedure: CT head/brain wo con EXAMINATION: CT head/brain wo con HISTORY: Vomiting, on blood thinner COMPARISON: No relevant comparison available. TECHNIQUE: Axial CT images were obtained without IV contrast. Dose reduction techniques were achieved by using automated exposure control and/or adjustment of mA and/or kV according to patient size and/or use of iterative reconstruction technique. FINDINGS: BRAIN: No edema, hemorrhage, mass, acute infarction, or inappropriate atrophy. CSF SPACES: No hydrocephalus, subarachnoid hemorrhage, or mass. Appropriate for age. SKULL: No fracture, mass, or other significant visible lesion. SINUSES: No significant mucosal thickening or fluid on the limited views. ORBITS: No appreciable abnormality on the limited views. OTHER: Radiopaque contrast within the brain secondary to recent CT abdomen pelvis study. Abnormal dilation of the intracranial portions of the right and left vertebral arteries and their confluence leading up to the normal caliber basilar artery. The left vertebral artery is 11 mm in diameter; the diameter after their confluence is 12 mm. Normal caliber [address]/CT head/brain wo con IMPRESSION: 1. No intracranial hemorrhage or appreciable acute abnormality. 2. Patent, but markedly abnormal dilation of the intracranial portions of the vertebral arteries and their confluence leading up to a normal caliber and patent basilar artery. No evidence of thrombus. Electronically authenticated by: JOSE DENT Date: 11/21/2023 10:24
--- OUTSIDE RECORDS SUMMARY | 2023-11-21 08:03 | XMS_ITS | CCD ---
Author Name Unknown Address [address] [place] [address] Organization [facility] Care Team Providers Care Master Glazier Name Role Phone Christine Ochoa Attending Unavailable ELAINE BHATIA Primary Care Unavailable SELF, REFERRED Referring Unavailable DAT PERALTA Admitting Unavailable Olexa, Tayler Unavailable KRIS, DR ELAINE Alvarado Primary Care Unavailable RHONDA, DR FLORENCIO Rodas Admitting Unavailable RHONDA, DR FLORENCIO Rodas Attending Unavailable RHONDA, DR FLORENCIO Rodas Consulting Unavailable KRIS, DR ELAINE Alvarado Primary Care Unavailable BG, DR HUI David Admitting Unavailabl e REINECK, DR HUI David Attending Unavailabl e REINECK, DR HUI David Consulting Unavailabl e OLEXA, TAYLER Admitting Unavailable OLEXA, TAYLER Attending Unavailable KRIS, DR ELAINE Alvarado Primary Care Unavailable Yandel, DR Ochoa Consulting Unavailable OLEXA, TAYLER Consulting Unavailable SAMSA, HAROLDO Admitting Unavailable SAMHAROLDO SLOAN Attending Unavailable KRIS, DR ELAINE Alvarado Primary Care Unavailable Yandel, DR Ochoa Consulting Unavailable SAMSA, HAROLDO Consulting Unavailable KRIS, DR ELAINE Alvarado Admitting Unavailable KRIS, DR ELAINE Alvarado Attending Unavailable KRIS, DR ELAINE Alvarado Primary Care Unavailable Yandel, DR Ochoa Consulting Unavailable KRIS, DR ELAINE Alvarado Consulting Unavailable KRIS, DR ELAINE Alvarado Admitting Unavailable KRIS, DR ELAINE Alvarado Attending Unavailable KRIS, DR ELAINE Alvarado Primary Care Unavailable Yandel, DR Ochoa Consulting Unavailable KRIS, DR ELAINE Alvarado Consulting Unavailable KRIS, DR ELAINE Alvarado Primary Care Unavailable JYOTSNA CHATTERJEE Admitting Unavailable JYOTSNA CHATTERJEE Attending Unavailable Yandel, DR Ochoa Consulting Unavailable JYOTSNA CHATTERJEE Consulting Unavailable ELAINE PONCE Primary Care Physician Cj SHAFER Attending Unavailable Cj SHAFER Attending Unavailable DELATORRE, ALISA B Referring Unavailable DELATORRE, ALISA B Primary Care Unavailable DELATORRE, ALISA B Referring Unavailable DELATORRE, ALISA B Primary Care Unavailable DELATORRE, ALISA B Primary Care Unavailable CHEHADE, ADOLFO E Attending Unavailable CHEHADE, ADOLFO E Attending Unavailable CHEHADE, ADOLFO E Referring Unavailable DELATORRE, ALISA B Primary Care Unavailable CHEHADE, ADOLFO E Attending Unavailable CHEHADE, ADOLFO E Referring Unavailable DELATORRE, ALISA B Primary Care Unavailable Unavailable Primary Care Provider Unavailabl e CHEHADE, ADOLFO Referring Unavailable MASSIEL, MARCO ANTONIO Admitting Unavailable GAVINO FUNEZ Attending Unavailable Allergies Allergy Classification Reported Allergen(s) Allergy Type Date of Onset Reaction(s) Facility (6 sources) fentaNYL; Translations: [fentaNYL] Drug Allergy 5 [facility] (1 source) alpha blockers; Translations: [alpha blockers] Propensity to adverse reactions (disorder) 8 [facility] (5 sources) Angiotensin Converting Enzyme (Jorge) Inhibitors; Translations: [Angiotensin-conv erting enzyme inhibitor agent (substance)] Propensity to adverse reactions Eruption of skin (disorder) [facility] (7 sources) fentaNYL; Translations: [fentanyl] Drug Allergy 5 anaphylaxis, Moderate (severity modifier) (qualifier value), Shortness of Breath [facility] (1 source) Ciprofloxacin Drug Allergy 9 [facility] Rep[facility] (3 sources) Clindamycin; Translations: [CALCIUM CHANNEL BLOCKING AGENTS-DIHYDROPYR IDINES] Drug Allergy 7 [facility] (4 sources) FLUoxetine; Translations: [fluoxetine] Drug Allergy 3 Suicidal behavior (finding) [facility] (1 source) Adrenergic Beta-Antagonists; Translations: [beta blockers] Propensity to adverse reactions (disorder) [facility] Repository (1 source) Ciprofloxacin; Translations: [ciprofloxacin] Drug Allergy [facility] Repository (1 source) Sodium Chloride; Translations: [sodium chloride] Drug Allergy [facility] Rep[facility] Medications Current Medications Medication Drug Class(es) Dates Sig (Normalized) Sig (Original) ALPRAZolam 1 mg oral tablet (1 source) Benzodiazepine Start: 10-23-2023 End: 10-30-2023 take 1 tablet enteral route every eight hours as needed ALPRAZolam (XANAX) 1 mg tablet 1 tablet by ORAL/FEEDING TUBE route three times a day as needed for up to 7 days. 0 10/23/2023 10/30/2023 Active Comment on above: 1 tablet by ORAL/FEE DING TUBE route three times a day as needed for up to 7 days. gabapentin 50 mg/ml oral solution (2 sources) Anti-epileptic Agent Start: 10-23-2023 End: 11-22-2023 take 6 mL by mouth three times daily gabapentin (NEURONTIN) 300 mg/6 mL (6 mL) oral solution 6 mL by ORAL/FEEDING TUBE route three times a day for 30 days. 0 10/23/2023 11/22/2023 Active Comment on above: 6 mL by ORAL/FEEDING TUBE route three times a day for 30 days. Vistaril (4 sources) Antihistamine Start: 10-03-2020 Vistaril Oral, QID, Refills(s) 0 Start Date: 10/03/20 Status: Ordered take 1 capsule by mouth every ei ght hours Vistaril 25 MG 1 capsule as needed Orally every 8 hrs Active ibuprofen 200 mg oral capsule (1 source) Nonsteroidal Anti-inflammatory Drug Start: 10-02-2021 take 1 mg by mouth every six hours ibuprofen 200 mg oral capsule mg cap(s), Oral, q6hr, Refills(s) 0 Start Date: 10/02/21 Status: Ordered iv contrast (will be provided with radiology test) (1 source) Start: 10-23-2023 End: 10-24-2023 iv contrast (will be provided with radiology test) MRI Pelvis Inject, intravenously, once for 1 dose. No IV access, insert saline lock prior to the beginning of sedation, infusion, injection of imaging exam. Discontinue saline lock post exam. If Pt has a central line or IVAD, may access for administration according to line specific nursing protocol. Once exam is complete flush line and de-access according to line specific nursing protocol in the MR contrast administration guidelines link. 1 Each 0 10/23/2023 10/24/2023 Active Comment on above: MRI Pelvis Inject, i ntravenously, once for 1 dose. No IV access, insert saline lock prior to the beginning of sedation, infusion, injection of imaging exam. Discontinue saline lock post exam. If Pt has a central line or IVAD, may access for administration according to line specific nursing protocol. Once exam is complete flush line and de-access according to line specific nursing protocol in the MR contrast administration guidelines link. Multi Vitamin+ (1 source) Start: 09-30-2019 Multi Vitamin+ Refill(s) 0 Start Date: 09/30/19 Status: Ordered Multivitamin preparation (3 sources) Multivitamin BID PRN Active oxyCODONE hydrochloride 10 mg oral tablet (1 source) Opioid Agonist Start: 10-23-2023 End: 10-26-2023 take 1 tablet by mouth every six hours oxyCODONE IR (ROXICODONE) 10 mg tab 1 tablet by ORAL/FEEDING TUBE route every 6 hours for 3 days. 0 10/23/2023 10/26/2023 Active Comment on above: 1 tablet by ORAL/FEE DING TUBE route every 6 hours for 3 days. Completed/Discontinued Medications Medication Drug Class(es) Dates Sig (Normalized) Sig (Original) acetaminophen 325 mg oral tablet (3 sources) Start: 10-23-2023 take 2 tablets enteral route every four hours as needed acetaminophen (TYLENOL) 325 mg tablet 2 tablets by ORAL/FEEDING TUBE route every 4 hours as needed for fever (specify temp.). 0 10/23/2023 Active Start: 09-30-2019 Tylenol Oral, Refills(s) 0 Start Date: 09/30/19 Status: Ordered Comment on above: 2 tablets by ORAL/FE EDING TUBE route every 4 hours as needed for fever (specify temp.). acetaminophen 325 mg / HYDROcodone bitartrate 5 mg oral tablet (3 sources) Opioid Agonist take 1 tablet by mouth every six hours HYDROcodone-Aceta minophen 5-325 MG 1 tablet as needed Orally every 6 hrs Not-Taking albuterol 0.83 mg/ml inhalation solution (5 sources) beta2-Adrenergic Agonist Start: 10-23-19 24 take 2.5 mg by inhalation every four hours as needed albuterol (PROVENTIL) 2.5 mg /3 mL (0.083 %) nebulizer solution Use 3 mL via nebulizer every 4 hours as needed for wheezing/shortnes s of breath. 0 10/23/2023 Active Start: 10-23-2023 albuterol (PRO VENTIL) 2.5 mg /3 mL (0.083 %) nebulizer solution Use 3 mL via nebulizer two times a day. 0 10/23/2023 Active Start: 10-02-2021 albuterol Refi lls(s) 0 Start Date: 10/02/21 Status: Ordered Comment on above: Use 3 mL via nebuliz er every 4 hours as needed for wheezing/shortness of breath. Use 3 mL via nebuliz er two times a day. apixaban 5 mg oral tablet (2 sources) Factor Xa Inhibitor Start: take 1 tablet by mouth twice daily apixaban (ELIQUIS) 5 mg tab(s) Take 1 tablet by mouth two times a day. 0 10/23/2023 Active Comment on above: Take 1 tablet by stacy th two times a day. baclofen 5 mg oral tablet (2 sources) gamma-Aminobutyric Acid-ergic Agonist Start: take 3 tablets by mouth three times daily baclofen 5 mg tablet 3 tablets by ORAL/FEEDING TUBE route three times a day. 0 10/23/2023 Active Comment on above: 3 tablets by ORAL/FE EDING TUBE route three times a day. cetirizine hydrochloride 10 mg oral tablet (2 sources) Histamine-1 Receptor Antagonist Start: take 1 tablet by mouth once daily cetirizine (ZYRTEC) 10 mg tablet Take 1 tablet by mouth once daily. 0 10/23/2023 Active Comment on above: Take 1 tablet by stacy th once daily. escitalopram 10 mg oral tablet (2 sources) Serotonin Reuptake Inhibitor Start: take 1 tablet by mouth once daily escitalopram oxalate (LEXAPRO) 10 mg tablet 1 tablet by ORAL/FEEDING TUBE route once daily. 0 10/23/2023 Active Comment on above: 1 tablet by ORAL/FEE DING TUBE route once daily. glucagon (rdna) 1 mg injection (2 sources) Antihypoglycemic Agent Start: glucagon 1 mg/mL injection Inject 1 mg subcutaneously as needed. 0 10/23/2023 Active Comment on above: Inject 1 mg subcutan eously as needed. 1000 ml glucose 100 mg/ml injection (4 sources) Start: dextrose (TRUEPLUS) 15 gram/32 mL oral gel Take 32 mL by mouth as needed. 0 10/23/2023 Active Start: 10-23-2023 dextrose 10% I nject 125-250 mL intravenously as needed (low blood sugar). 0 10/23/2023 Active Comment on above: Inject 125-250 mL in travenously as needed (low blood sugar). Take 32 mL by mouth as needed. melatonin 3 mg oral tablet (2 sources) Start: 10-23-19 24 take 1 tablet enteral route every twenty-four hours as needed melatonin 3 mg tablet 1 tablet by ORAL/FEEDING TUBE route at bedtime as needed for insomnia. 0 10/23/2023 Active Comment on above: 1 tablet by ORAL/FEE DING TUBE route at bedtime as needed for insomnia. metoprolol tartrate 25 mg oral tablet (2 sources) beta-Adrenergic Andrew Start: 10-23-19 24 take 0.5 tablet by mouth every twelve hours metoprolol tartrate, short acting, (LOPRESSOR) 25 mg tablet 0.5 tablets by ORAL/FEEDING TUBE route every 12 hours. 0 10/23/2023 Active Comment on above: 0.5 tablets by ORAL/ FEEDING TUBE route every 12 hours. mineral oil 0.2 mg/mg / petrolatum 0.8 mg/mg ophthalmic ointment (2 sources) Start: 10-23-19 24 white petrolatum-mineral oil (SOOTHE LUBRICANT EYE NIGHT TIME OINTMENT) ointment Use 1 Drop in both eyes as needed. 0 10/23/2023 Active Comment on above: Use 1 Drop in both e yes as needed. MULTIVITAMIN ORAL TAB (3 sources) Start: 01-17-20 05 take 1 tablet by mouth once daily MULTIVITAMIN ORAL TAB Take one(1) tablet daily. HOLD 0 01/16/2005 Active Comment on above: Take one(1) tablet d aily. HOLD polyethylene glycol 3350 18897 mg powder for oral solution (2 sources) Osmotic Laxative Start: 10-23-19 24 polyethylene glycol 3350 17 gram packet 1 Packet by ORAL/FEEDING TUBE route once daily. Dissolve dose in 4 - 8 ounces of liquid and take as directed. 0 10/23/2023 Active Comment on above: 1 Packet by ORAL/FEE DING TUBE route once daily. Dissolve dose in 4 - 8 ounces of liquid and take as directed. potassium phosphate 155 mg / sodium phosphate, dibasic 852 mg / sodium phosphate, monobasic 130 mg oral tablet (2 sources) Start: 10-23-19 phosphorus (K PHOS NEUTRAL) 250 mg tablet 1 tablet by ORAL/FEEDING TUBE route as needed (for phosphorus less than 2.5 mg/dL - see admin instructions). 0 10/23/2023 Active Comment on above: 1 tablet by ORAL/FEE DING TUBE route as needed (for phosphorus less than 2.5 mg/dL - see admin instructions). sennosides, senior living 8.6 mg oral tablet (2 sources) Start: 10-23-19 take 1 tablet by mouth twice daily senna (SENOKOT) 8.6 mg tab 1 tablet by ORAL/FEEDING TUBE route two times a day. 0 10/23/2023 Active Comment on above: 1 tablet by ORAL/FEE DING TUBE route two times a day. sodium chloride 70 mg/ml inhalation solution (2 sources) Start: 10-23-19 take 4 mL by inhalation twice daily sodium chloride 7% solution 7 % solution for nebulization Inhale 4 mL as instructed two times a day. 0 10/23/2023 Active Comment on above: Inhale 4 mL as instr ucted two times a day. zinc oxide 130 mg/ml topical cream (4 sources) Start: 10-23-19 zinc oxide (DESITIN) 13 % crea Apply to affected area as needed (incontinence). 0 10/23/2023 Active Comment on above: Apply to affected ar ea as needed (incontinence). Apply to affected ar ea two times a day. Problems Active Problems Problem Classification Problem Date Documented Date Episodic/Chronic Abdominal pain (5 sources) Unspecified abdominal pain; Translations: [Flank pain] Onset: 2 Episodic Acute cerebrovascular disease (3 sources) Ischemic stroke; Translations: [Cerebral infarction, unspecified] Onset: 3 10-10-2023 Chronic Biliary tract disease (3 sources) Calculus of gallbladder with acute cholecystitis; Translations: [Calculus of gallbladder with acute cholecystitis without obstruction] Onset: 4 10-14-2023 Episodic Chronic ulcer of skin (10 sources) Pressure ulcer of unspecified site, unspecified stage; Translations: [Pressure ulcer, unspecified site] Onset: 3 10-09-2023 Chronic Complications of surgical procedures or medical care (3 sources) Ventilator associated pneumonia; Translations: [Ventilator associated pneumonia] Onset: 4 10-12-2023 Episodic Genitourinary symptoms and ill-defined conditions (4 sources) Retention of urine; Translations: [Retention of urine, unspecified] Onset: 3 Episodic Headache; including migraine (3 sources) Refractory migraine variants; Translations: [Migraine with aura, intractable, without status migrainosus] Onset: 4 01-03-2004 Chronic Inflammatory conditions of male genital organs (2 sources) Chronic prostatitis; Translations: [Chronic prostatitis] Onset: 3 Chronic Mood disorders (1 source) Depressive disorder 09-30-2019 Chronic Nutritional deficiencies (3 sources) Malnutrition (calorie); Translations: [Moderate protein-calorie malnutrition] Onset: 4 10-11-2023 Chronic Osteoarthritis (1 source) Arthritis 09-30-2019 Chronic Other acquired deformities (1 source) Scoliosis deformity of spine 09-30-2019 Chronic Other bone disease and musculoskeletal deformities (5 sources) Other idiopathic scoliosis, thoracolumbar region; Translations: [OTH IDIOPATH SCOLIOSIS TL REGION] Onset: 2 Chronic Other connective tissue disease (3 sources) Infective myositis; Translations: [Infective myositis, unspecified left leg] Onset: 4 10-21-2023 Episodic Other connective tissue disease (1 source) Infective myositis, unspecified left leg; Translations: [Infective myositis of left lower extremity] Onset: 4 Episodic Other diseases of bladder and urethra (5 sources) Flaccid neurogenic bladder; 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, not elsewhere classified] Onset: 3 Chronic Other infections; including parasitic (3 sources) H/O: infectious disease; Translations: [Personal history of other infectious and parasitic diseases] Onset: 4 10-12-2023 Episodic Other nervous system disorders (1 source) Other chronic pain; Translations: [OTHER CHRONIC PAIN] Onset: 2 Chronic Other non-traumatic joint disorders (3 sources) Hip pain; Translations: [Pain in left hip] Onset: 4 10-17-2023 Episodic Other non-traumatic joint disorders (3 sources) Effusion of joint of left hip; Translations: [Effusion, left hip] Onset: 4 10-17-2023 Episodic Other screening for suspected conditions (not mental disorders or infectious disease) (6 sources) Electrocardiogram abnormal; Translations: [Abnormal electrocardiogram [ECG] [EKG]] Onset: 4 10-10-2023 Episodic Other upper respiratory disease (3 sources) Tracheostomy present; Translations: [Tracheostomy status] Onset: 4 10-18-2023 Chronic Paralysis (4 sources) 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; 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] Onset: 3 10-10-2023 Chronic Residual codes; unclassified (3 sources) Urinary catheter in situ; Translations: [Presence of other specified devices] Onset: 4 10-12-2023 Episodic Respiratory failure; insufficiency; arrest (adult) (9 sources) Chronic respiratory failure; Translations: [Chronic respiratory failure, unspecified whether with hypoxia or hypercapnia] Onset: 4 10-14-2023 Chronic Septicemia (except in labor) (4 sources) Sepsis, unspecified organism; Translations: [Sepsis] Onset: 4 10-15-2023 Episodic Unclassified (2 sources) LOW BACK PAIN, UNSPECIFIED; Translations: [LOW BACK PAIN, UNSPECIFIED] Onset: 2 Unclassified (1 source) Wound Check Onset: 4 Unclassified (1 source) EMS Onset: 4 Urinary tract infections (3 sources) Urinary tract infection caused by Klebsiella; Translations: [Urinary tract infection, site not specified] Onset: 4 10-12-2023 Episodic Past or Other Problems Problem Classification Problem Date Documented Da te Episodic/Chronic Acquired foot deformities (3 sources) Flat foot [pes planus] (acquired), unspecified foot; Translations: [Flat foot] Onset: 07-02-2003 01-03-2004 Episodic E Codes: Fall (1 source) Fall on same level due to ice and snow, initial encounter; Translations: [FALL SAME LEVEL D/T ICE SNOW INIT] Onset: 10-18-2021 Episodic Fracture of upper limb (8 sources) Unspecified fracture of the lower end of right radius, subsequent encounter for closed fracture with routine healing; Translations: [Unspecified fracture of the lower end of right radius, initial encounter for closed fracture] Onset: 10-17-2021 Resolved: 11-28-2021 Episodic Joint disorders and dislocations; trauma-related (1 source) Recurrent dislocation, right finger; Translations: [RECURRENT DISLOCATION RIGHT FINGER] Onset: 10-18-2021 Episodic Other acquired deformities (1 source) Spondylolisthesis, site unspecified; Translations: [SPONDYLOLISTHESIS SITE UNSPECIFIED] Onset: 03-09-2022 Episodic Other lower respiratory disease (4 sources) Solitary pulmonary nodule; Translations: [SOLITARY PULMONARY NODULE] Onset: 12-11-2021 Episodic Other non-traumatic joint disorders (3 sources) Pain in right wrist; Translations: [PAIN IN RIGHT WRIST] Onset: 10-16-2021 Episodic Spondylosis; intervertebral disc disorders; other back problems (7 sources) Lumbago with sciatica, right side; Translations: [Pain in thoracic spine] Onset: 02-16-2022 Episodic Unclassified (1 source) LOW BACK PAIN, UNSPECIFIED; Translations: [LOW BACK PAIN, UNSPECIFIED] Onset: 01-13-2022 Results Test Name Value Interpretation Reference Range Facility CASE MANAGEMon 10-23-2023 CASE MANAGEM Normal [facility] CBC panel Auto (Bld)on 10-23 Erythrocyte distribution width (RBC) [Ratio] 18.6 % High 11.5-15.0 [facility] Comment on above: Order Comment: Speci men Type: BLOOD SPECIMENOrdering Facility: [facility] Address: [address] [place] [address] Performed By: #### 5 8410-2 ####[facility] LABCLIA [id number] [place] [address] [place] Hematocrit (Bld) [Volume fraction] 34.4 % Low 39.0-51.0 [facility] Comment on above: Order Comment: Speci men Type: BLOOD SPECIMENOrdering Facility: [facility] Address: [address] [place] [address] Performed By: #### 5 8410-2 ####[facility] LABIA [id number] [place] [address] [place] Hemoglobin (Bld) [Mass/Vol] 10.4 g/dL Low 13.0-17.0 [facility] Comment on above: Order Comment: Speci men Type: BLOOD SPECIMENOrdering Facility: [facility] Address: [address] [place] [address] Performed By: #### 5 8410-2 ####[facility] LABIA [id number] [place] [address] [place] MCH (RBC) [Entitic mass] 25.6 pg Low 26.0-34.0 [facility] Comment on above: Order Comment: Speci men Type: BLOOD SPECIMENOrdering Facility: [facility] Address: [address] [place] [address] Performed By: #### 5 8410-2 ####[facility] LABIA [id number] [place] [address] [place] MCHC (RBC) [Mass/Vol] 30.2 g/dL Low 30.5-36.0 [facility] Comment on above: Order Comment: Speci men Type: BLOOD SPECIMENOrdering Facility: [facility] Address: [address] [place] [address] Performed By: #### 5 8410-2 ####[facility] LABIA [id number] [place] [address] [place] MCV (RBC) [Entitic vol] 84.5 fL Normal 80.0-100.0 [facility] Comment on above: Order Comment: Speci men Type: BLOOD SPECIMENOrdering Facility: [facility] Address: [address] [place] [address] Performed By: #### 5 8410-2 ####[facility]CLIA [id number] [place] [address] [place] Nucleated RBC (Bld) [#/Vol] 10*3/uL Normal <0.01 [facility] Comment on above: Order Comment: Speci men Type: BLOOD SPECIMENOrdering Facility: [facility] Address: [address] [place] [address] Performed By: #### 5 8410-2 ####[facility] LABIA [id number] [place] [address] [place] Platelet mean volume (Bld) [Entitic vol] 10.4 fL Normal 9.0-12.7 [facility] Comment on above: Order Comment: Speci men Type: BLOOD SPECIMENOrdering Facility: [facility] Address: [address] [place] [address] Performed By: #### 5 8410-2 ####[facility] LABIA [id number] [place] [address] [place] Platelets (Bld) [#/Vol] 479 10*3/uL High 150-400 [facility] Comment on above: Order Comment: Speci men Type: BLOOD SPECIMENOrdering Facility: [facility] Address: [address] [place] [address] Performed By: #### 5 8410-2 ####[facility] LABIA [id number] [place] [address] [place] RBC (Bld) [#/Vol] 4.07 10*6/uL Low 4.20-6.00 [facility] Comment on above: Order Comment: Speci men Type: BLOOD SPECIMENOrdering Facility: [facility] Address: [address] [place] [address] Performed By: #### 5 8410-2 ####[facility] LABIA [id number] [place] [address] [place] WBC (Bld) [#/Vol] 13.67 10*3/uL High 3.70-11.00 [facility] Comment on above: Order Comment: Speci men Type: BLOOD SPECIMENOrdering Facility: [facility] Address: [address] [place] [address] Performed By: #### 5 8410-2 ####[facility] LABCLIA [id number] [place] [address] [place] CNDSon 10-23-2023 CNDS Normal [facility] CONSULT PROGon 10-23-2023 CONSULT PROG Normal [facility] Comprehensive metabolic 2000 panelon 10-23-2023 Albumin [Mass/Vol] 2.9 g/dL Low 3.9-4.9 [facility] Comment on above: Order Comment: Speci men Type: BLOOD SPECIMENOrdering Facility: [facility] Address: [address] [place] [address] Performed By: #### 2 4323-8, 27703-09, ####[facility] LABCLIA [id number] [place] [address] [place] ALP [Catalytic activity/Vol] 215 U/L High 38-113 [facility] Comment on above: Order Comment: Speci men Type: BLOOD SPECIMENOrdering Facility: [facility] Address: [address] [place] [address] Performed By: #### 2 4323-8, 27703-09, ####[facility] LABCLIA [id number] [address] [address] [place] ALT [Catalytic activity/Vol] 22 U/L Normal 10-54 [facility] Comment on above: Order Comment: Speci men Type: BLOOD SPECIMENOrdering Facility: [facility] Address: [address] [place] [address] Performed By: #### 2 4323-8, 27703-09, ####[facility] LABCLIA [id number] [place] [id number] [place] Anion gap [Moles/Vol] 11 mmol/L Normal 9-18 [facility] Comment on above: Order Comment: Speci men Type: BLOOD SPECIMENOrdering Facility: [facility] Address: [address] [place] [address] Performed By: #### 2 4323-8, 2777-1, ####[facility] LABCLIA [id number] [place] [address] [place] AST [Catalytic activity/Vol] 14 U/L Normal 14-40 [facility] Comment on above: Order Comment: Speci men Type: BLOOD SPECIMENOrdering Facility: [facility] Address: [address] [place] [address] Performed By: #### 2 4323-8, 27771, ####[facility] LABCLIA [id number] [place] [address] [place] Bilirubin [Mass/Vol] 0.2 mg/dL Normal 0.2-1.3 [facility] Comment on above: Order Comment: Speci men Type: BLOOD SPECIMENOrdering Facility: [facility] Address: [address] [place] [address] Performed By: #### 2 4323-8, 27771, ####[facility] LABCLIA [id number] [place] [address] [place] Calcium [Mass/Vol] 9.9 mg/dL Normal 8.5-10.2 [facility] Comment on above: Order Comment: Speci men Type: BLOOD SPECIMENOrdering Facility: [facility] Address: [address] [place] [address] Performed By: #### 2 4323-8, 277-1, ####[facility] LABCLIA [id number] [place] [id number] [place] Chloride [Moles/Vol] 96 mmol/L Low 97-105 [facility] Comment on above: Order Comment: Speci men Type: BLOOD SPECIMENOrdering Facility: [facility] Address: [address] [place], [place] [address] Performed By: #### 2 4323-8, 2777-1, ####[facility] LABCLIA [id number] [place] [id number] [place] CO2 [Moles/Vol] 31 mmol/L High 22-30 [facility] Comment on above: Order Comment: Speci men Type: BLOOD SPECIMENOrdering Facility: [facility] Address: [address] [place] [address] Performed By: #### 2 4323-8, 2777-1, ####[facility] LABCLIA [id number] [place] [address] [place] Creatinine [Mass/Vol] 0.46 mg/dL Low 0.73-1.22 [facility] Comment on above: Order Comment: Speci men Type: BLOOD SPECIMENOrdering Facility: [facility] Address: [address] [place] [address] Performed By: #### 2 4323-8, 27771, ####[facility] LABCLIA [id number] [place] [address] [place] Creatinine and Glomerular filtration rate.predicted panel (S/P/Bld) 136 mL/min/1.73m??? Normal >=60 [facility] Comment on above: Order Comment: Speci men Type: BLOOD SPECIMENOrdering Facility: [facility] Address: [address] [place], [place] [address] Result Comment: Rae mated Glomerular Filtration Rate (eGFR) is calculated using the 2020 CKD-EPI creatinine equation. This equation utilizes serum creatinine, sex, and age as parameters. The creatinine assay has traceable calibration to isotope dilution-mass spectrometry. Refer to KDIGO guidelines for clinical interpretation. In patients with unstable renal function, e.g. those with acute kidney injury, the eGFR may not accurately reflect actual GFR. Performed By: #### 2 4323-8, 2776-09, ####[facility] LABCLIA [id number] [address] [address] [place] Glucose [Mass/Vol] 108 mg/dL High 74-99 [facility] Comment on above: Order Comment: Speci men Type: BLOOD SPECIMENOrdering Facility: [facility] Address: [address] [place] [address] Result Comment: The [place] [employer] (ADA) provides guidance for cutoff values for fasting glucose and random glucose. The ADA defines fasting as no caloric intake for at least 8 hours. Fasting plasma glucose results between 100 to 125 mg/dL indicate increased risk for diabetes (prediabetes).Fasting plasma glucose results greater than or equal to 126 mg/dL meet the criteria for diagnosis of diabetes. In the absence of unequivocal hyperglycemia, results should be confirmed by repeat testing. In a patient with classic symptoms of hyperglycemia or hyperglycemic crisis, random plasma glucose results greater than or equal to 200 mg/dL meet the criteria for diagnosis of diabetes.Reference: Standards of Medical Care in Diabetes 2016, [place] [employer]. Diabetes Care. 2016.39(Suppl 1). Performed By: #### 2 4323-8, 2776-09, ####[facility] LABCLIA [id number] [place] [id number] [place] Potassium [Moles/Vol] 4.3 mmol/L Normal 3.7-5.1 [facility] Comment on above: Order Comment: Darwin men Type: BLOOD SPECIMENOrdering Facility: [facility] Address: [address] [place] [address] Performed By: #### 2 4323-8, 2776-09, ####[facility] LABCLIA [id number] [address] [address] [place] Protein [Mass/Vol] 6.2 g/dL Low 6.3-8.0 [facility] Comment on above: Order Comment: Speci men Type: BLOOD SPECIMENOrdering Facility: [facility] Address: [address] [place] [address] Performed By: #### 2 4323-8, 2776-09, ####[facility] LABCLIA [id number] [place] [address] [place] Urea nitrogen [Mass/Vol] 12 mg/dL Normal 9-24 [facility] Comment on above: Order Comment: Speci men Type: BLOOD SPECIMENOrdering Facility: [facility] Address: [address] [place] [address] Performed By: #### 2 4323-8, 2776-09, ####[facility] LABIA [id number] [place] [address] [place] Gas + CO Pnl BldVon 10-23-19 24 Sodium [Moles/Vol] 138 mmol/L Normal 136-144 [facility] Comment on above: Order Comment: Speci men Type: VENOUS BLOOD SPECIMENOrdering Facility: [facility] Address: [address] [place] [address] Performed By: #### 2 4344-4 ####[facility] LABIA [id number] [place] [address] [place] Order Comment: Speci men Type: BLOOD SPECIMENOrdering Facility: [facility] Address: [address] [place] [address] Performed By: #### 2 4323-8, 2776-09, ####[facility] LABIA [id number] [place] [id number] [place] Gas and Carbon monoxide pane l (BldV)on 10-23-2023 Base excess Calc (BldV) [Moles/Vol] 10 mmol/L High 0-2 [facility] Comment on above: Order Comment: Speci men Type: VENOUS BLOOD SPECIMENOrdering Facility: [facility] Address: [address] [place] [address] Performed By: #### 2 4344-4 ####[facility] LABIA [id number] [place] [address] [place] Body temperature 100.22 [degF] Normal [facility] Comment on above: Order Comment: Speci men Type: VENOUS BLOOD SPECIMENOrdering Facility: [facility] Address: [address] [place] [address] Performed By: #### 2 4344-4 ####[facility] [id number] [place] [address] [place] Calcium.ionized (Bld) [Mass/Vol] 1.25 mmol/L Normal 1.08-1.30 [facility] Comment on above: Order Comment: Speci men Type: VENOUS BLOOD SPECIMENOrdering Facility: [facility] Address: [address] [place] [address] Performed By: #### 2 4344-4 ####[facility] [id number] [place] [address] [place] Calcium.ionized adjusted to pH 7.4 (BldA) [Moles/Vol] 1.26 mmol/L Normal 1.08-1.30 [facility] Comment on above: Order Comment: Speci men Type: VENOUS BLOOD SPECIMENOrdering Facility: [facility] Address: [address] [place] [address] Performed By: #### 2 4344-4 ####[facility] [id number] [place] [address] [place] Carboxyhemoglobin (BldV) [Mass fraction] 1.2 % Normal 0.0-2.0 [facility] Comment on above: Order Comment: Speci men Type: VENOUS BLOOD SPECIMENOrdering Facility: [facility] Address: [address] [place] [address] Result Comment: Carb oxyhemoglobin Reference Range for Smokers: 2.0-8.0% Performed By: #### 2 4344-4 ####[facility] LABCLIA [id number] [facility] [address] [address] [place] CO2 (BldV) [Partial pressure] 56 mm[Hg] High 42-55 [facility] Comment on above: Order Comment: Speci men Type: VENOUS BLOOD SPECIMENOrdering Facility: [facility] Address: [address] [place] [address] Performed By: #### 2 4344-4 ####[facility] LABCLIA [id number] [place] [address] [place] CO2 adjusted to patient's actual temperature (BldV) [Partial pressure] 58 mmHg High 42-55 [facility] Comment on above: Order Comment: Speci men Type: VENOUS BLOOD SPECIMENOrdering Facility: [facility] Address: [address] [place] [address] Performed By: #### 2 4344-4 ####[facility] LABCLIA [id number] [place] [address] [place] FIO2 35 % Normal [facility] Comment on above: Order Comment: Speci men Type: VENOUS BLOOD SPECIMENOrdering Facility: [facility] Address: [address] [place] [address] Performed By: #### 2 4344-4 ####[facility] LABCLIA [id number] [place] [address] [place] Glucose [Mass/Vol] 114 mg/dL High 60-105 [facility] Comment on above: Order Comment: Speci men Type: VENOUS BLOOD SPECIMENOrdering Facility: [facility] Address: [facility] [place] [address] Performed By: #### 2 4344-4 ####[facility] LABCLIA [id number] [address] [address] [place] HCO3 (Bld) [Moles/Vol] 35 mmol/L High 24-28 [facility] Comment on above: Order Comment: Speci men Type: VENOUS BLOOD SPECIMENOrdering Facility: [facility] Address: [address] [place] [address] Performed By: #### 2 4344-4 ####[facility] LABCLIA [id number] [place] [address] [place] Hematocrit (Bld) [Volume fraction] 32.6 % Low 39.0-51.0 [facility] Comment on above: Order Comment: Speci men Type: VENOUS BLOOD SPECIMENOrdering Facility: [facility] Address: [address] [place] [address] Performed By: #### 2 4344-4 ####[facility] LABCLIA [id number] [place] [address] [place] Hemoglobin (Bld) [Mass/Vol] 10.6 g/dL Low 13.0-17.0 [facility] Comment on above: Order Comment: Speci men Type: VENOUS BLOOD SPECIMENOrdering Facility: [facility] Address: [address] [place] [address] Performed By: #### 2 4344-4 ####[facility] LABIA [id number] [place] [address] [place] Lactate [Moles/Vol] 0.9 mmol/L Normal 0.5-2.2 [facility] Comment on above: Order Comment: Speci men Type: VENOUS BLOOD SPECIMENOrdering Facility: [facility] Address: [address] [place] [address] Performed By: #### 2 4344-4 ####[facility] LABCLIA [id number] [place] [address] [place] Methemoglobin (Bld) [Mass fraction] 0.9 % Normal 0.0-1.5 [facility] Comment on above: Order Comment: Speci men Type: VENOUS BLOOD SPECIMENOrdering Facility: [facility] Address: [address] [place] [address] Performed By: #### 2 4344-4 ####[facility] LABCLIA [id number] [address] [address] [place] O2 THERAPY Ventilator Normal [facility] Comment on above: Order Comment: Speci men Type: VENOUS BLOOD SPECIMENOrdering Facility: [facility] Address: [address] [place] [id number] Performed By: #### 2 4344-4 ####[facility] LABCLIA [id number] [address] [address] [place] Oxygen (BldV) [Partial pressure] 54 mm[Hg] High 35-45 [facility] Comment on above: Order Comment: Speci men Type: VENOUS BLOOD SPECIMENOrdering Facility: [facility] Address: [address] [place], [place] [address] Performed By: #### 2 4344-4 ####[facility] LABCLIA [id number] [address] [address] [place] Oxygen adjusted to patient's actual temperature (BldV) [Partial pressure] 58 mmHg High 35-45 [facility] Comment on above: Order Comment: Speci men Type: VENOUS BLOOD SPECIMENOrdering Facility: [facility] Address: [address] [place], [place] [address] Performed By: #### 2 4344-4 ####[facility] LABCLIA [id number] [address] [address] [place] Oxygen saturation in Venous blood 86 % High 60-85 [facility] Comment on above: Order Comment: Speci men Type: VENOUS BLOOD SPECIMENOrdering Facility: [facility] Address: [address] [place] [address] Performed By: #### 2 4344-4 ####[facility] LABCLIA [id number] [address] [address] [place] Oxyhemoglobin (BldV) [Mass fraction] 84 % Normal 60-85 [facility] Comment on above: Order Comment: Speci men Type: VENOUS BLOOD SPECIMENOrdering Facility: [facility] Address: [address] [place] [address] Performed By: #### 2 4344-4 ####[facility] LABIA [id number] [place] [address] [place] pH (BldV) 7.42 [pH] Normal 7.32-7.42 [facility] Comment on above: Order Comment: Speci men Type: VENOUS BLOOD SPECIMENOrdering Facility: [facility] Address: [address] [place] [address] Performed By: #### 2 4344-4 ####[facility] LABIA [id number] [place] [address] [place] pH adjusted to patient's actual temperature (BldV) 7.41 Normal 7.32-7.42 [facility] Comment on above: Order Comment: Speci men Type: VENOUS BLOOD SPECIMENOrdering Facility: [facility] Address: [address] [place] [address] Performed By: #### 2 4344-4 ####[facility] LABIA [id number] [place] [address] [place] Potassium [Moles/Vol] 4.1 mmol/L Normal 3.5-5.0 [facility] Comment on above: Order Comment: Speci men Type: VENOUS BLOOD SPECIMENOrdering Facility: [facility] Address: [address] [place] [address] Performed By: #### 2 4344-4 ####[facility] LABIA [id number] [place] [address] [place] Magnesium SerPl-mCncon 10-23 Magnesium [Mass/Vol] 2.1 mg/dL Normal 1.7-2.3 [facility] Comment on above: Order Comment: Speci men Type: BLOOD SPECIMENOrdering Facility: [facility] Address: [address] [place] [address] Performed By: #### 2 4323-8, 2777-1, 97699-2 ####[facility] LABCLIA [id number] [place] [address] [place] Phosphate SerPl-mCncon 10-23 Phosphate [Mass/Vol] 3.7 mg/dL Normal 2.7-4.8 [facility] Comment on above: Order Comment: Speci men Type: BLOOD SPECIMENOrdering Facility: [facility] Address: [address] [place] [address] Performed By: #### 2 4323-8, 2777-1, 00576-4 ####[facility] LABCLIA [id number] [place] [address] [place] aPTT PPPon 10-23-2023 aPTT Coag (PPP) [Time] 34.2 s High 23.0-32.4 [facility] Comment on above: Order Comment: Speci men Type: BLOOD SPECIMENOrdering Facility: [facility] Address: [address] [place] [address] Performed By: #### 1 4979-9 ####[facility] LABIA [id number] [place] [address] [place] CASE MANAGEMon 10-22-2023 CASE MANAGEM Normal [facility] CBC W Auto Differential pane l (Bld)on 10-22-2023 Basophils (Bld) [#/Vol] 0.09 10*3/uL Normal <0.11 [facility] Comment on above: Order Comment: Speci men Type: BLOOD SPECIMENOrdering Facility: [facility] Address: [address] [place] [address] Performed By: #### 5 8410-2, 13770-5 ####[facility] LABCLIA [id number] [place] [address] [place] Basophils/100 WBC (Bld) 0.6 % Normal [facility] Comment on above: Order Comment: Speci men Type: BLOOD SPECIMENOrdering Facility: [facility] Address: [address] [place] [address] Performed By: #### 5 8410-2, 71958-7 ####[facility] LABCLIA [id number] [place] [address] [place] Differential cell count method Nom (Bld) Auto Normal [facility] Comment on above: Order Comment: Speci men Type: BLOOD SPECIMENOrdering Facility: [facility] Address: [address] [place] [address] Performed By: #### 5 8410-2, 42089-8 ####[facility] LABCLIA [id number] [place] [address] [place] Eosinophils (Bld) [#/Vol] 0.12 10*3/uL Normal <0.46 [facility] Comment on above: Order Comment: Speci men Type: BLOOD SPECIMENOrdering Facility: [facility] Address: [address] [place] [address] Performed By: #### 5 8410-2, 22482-7 ####[facility] LABCLIA [id number] [place] [address] [place] Eosinophils/100 WBC (Bld) 0.8 % Normal [facility] Comment on above: Order Comment: Speci men Type: BLOOD SPECIMENOrdering Facility: [facility] Address: [address] [place] [address] Performed By: #### 5 8410-2, 21678-6 ####[facility] LABCLIA [id number] [place] [address] [place] Immature granulocytes (Bld) [#/Vol] 0.09 10*3/uL Normal <0.10 [facility] Comment on above: Order Comment: Speci men Type: BLOOD SPECIMENOrdering Facility: [facility] Address: [address] [place] [address] Performed By: #### 5 8410-2, 21115-3 ####[facility] LABCLIA [id number] [place] [address] [place] Immature granulocytes/100 WBC (Bld) 0.6 % Normal [facility] Comment on above: Order Comment: Speci men Type: BLOOD SPECIMENOrdering Facility: [facility] Address: [address] [place] [address] Performed By: #### 5 8410-2, 95995-9 ####[facility] LABCLIA [id number] [place] [address] [place] Lymphocytes (Bld) [#/Vol] 1.46 10*3/uL Normal 1.00-4.00 [facility] Comment on above: Order Comment: Speci men Type: BLOOD SPECIMENOrdering Facility: [facility] Address: [address] [place] [address] Performed By: #### 5 8410-2, 64392-0 ####[facility] LABCLIA [id number] [place] [address] [place] Lymphocytes/100 WBC (Bld) 9.1 % Normal [facility] Comment on above: Order Comment: Speci men Type: BLOOD SPECIMENOrdering Facility: [facility] Address: [address] [place] [address] Performed By: #### 5 8410-2, 97761-2 ####[facility] LABCLIA [id number] [place] [address] [place] Monocytes (Bld) [#/Vol] 0.70 10*3/uL Normal <0.87 [facility] Comment on above: Order Comment: Speci men Type: BLOOD SPECIMENOrdering Facility: [facility] Address: [address] [place] [address] Performed By: #### 5 8410-2, 42092-7 ####[facility] LABCLIA [id number] [place] [address] [place] Monocytes/100 WBC (Bld) 4.4 % Normal [facility] Comment on above: Order Comment: Speci men Type: BLOOD SPECIMENOrdering Facility: [facility] Address: [address] [place] [address] Performed By: #### 5 8410-2, 00309-9 ####[facility] LABCLIA [id number] [place] [address] [place] Neutrophils (Bld) [#/Vol] 13.50 10*3/uL High 1.45-7.50 [facility] Comment on above: Order Comment: Speci men Type: BLOOD SPECIMENOrdering Facility: [facility] Address: [address] [place] [address] Performed By: #### 5 8410-2, 96284-1 ####[facility] LABCLIA [id number] [place] [address] [place] Neutrophils/100 WBC (Bld) 84.5 % Normal [facility] Comment on above: Order Comment: Speci men Type: BLOOD SPECIMENOrdering Facility: [facility] Address: [address] [place] [address] Performed By: #### 5 8410-2, 38247-0 ####[facility] LABCLIA [id number] [place] [address] [place] CBC panel Auto (Bld)on 10-22 Erythrocyte distribution width (RBC) [Ratio] 18.4 % High 11.5-15.0 [facility] Comment on above: Order Comment: Speci men Type: BLOOD SPECIMENOrdering Facility: [facility] Address: [address] [place] [address] Performed By: #### 5 8410-2, 77277-4 ####[facility] LABCLIA [id number] [place] [address] [place] Hematocrit (Bld) [Volume fraction] 37.6 % Low 39.0-51.0 [facility] Comment on above: Order Comment: Speci men Type: BLOOD SPECIMENOrdering Facility: [facility] Address: [address] [place] [address] Performed By: #### 5 8410-2, 61232-0 ####[facility] LABCLIA [id number] [place] [address] [place] Hemoglobin (Bld) [Mass/Vol] 11.3 g/dL Low 13.0-17.0 [facility] Comment on above: Order Comment: Speci men Type: BLOOD SPECIMENOrdering Facility: [facility] Address: [address] [place] [address] Performed By: #### 5 8410-2, 33983-6 ####[facility] LABCLIA [id number] [place] [address] [place] MCH (RBC) [Entitic mass] 25.2 pg Low 26.0-34.0 [facility] Comment on above: Order Comment: Speci men Type: BLOOD SPECIMENOrdering Facility: [facility] Address: [address] [place] [address] Performed By: #### 5 8410-2, 12317-3 ####[facility] LABCLIA [id number] [place] [address] [place] MCHC (RBC) [Mass/Vol] 30.1 g/dL Low 30.5-36.0 [facility] Comment on above: Order Comment: Speci men Type: BLOOD SPECIMENOrdering Facility: [facility] Address: [address] [place] [address] Performed By: #### 5 8410-2, 47998-9 ####[facility] LABCLIA [id number] [place] [address] [place] MCV (RBC) [Entitic vol] 83.7 fL Normal 80.0-100.0 [facility] Comment on above: Order Comment: Speci men Type: BLOOD SPECIMENOrdering Facility: [facility] Address: [address] [place] [address] Performed By: #### 5 8410-2, 43762-6 ####[facility] LABCLIA [id number] [place] [address] [place] Nucleated RBC (Bld) [#/Vol] 10*3/uL Normal <0.01 [facility] Comment on above: Order Comment: Speci men Type: BLOOD SPECIMENOrdering Facility: [facility] Address: [address] [place] [address] Performed By: #### 5 8410-2, 15167-5 ####[facility] LABCLIA [id number] [place] [address] [place] Platelet mean volume (Bld) [Entitic vol] 10.2 fL Normal 9.0-12.7 [facility] Comment on above: Order Comment: Speci men Type: BLOOD SPECIMENOrdering Facility: [facility] Address: [address] [place] [address] Performed By: #### 5 8410-2, 04079-9 ####[facility] LABCLIA [id number] [place] [address] [place] Platelets (Bld) [#/Vol] 495 10*3/uL High 150-400 [facility] Comment on above: Order Comment: Speci men Type: BLOOD SPECIMENOrdering Facility: [facility] Address: [address] [place] [address] Performed By: #### 5 8410-2, 63106-6 ####[facility] LABCLIA [id number] [place] [address] [place] RBC (Bld) [#/Vol] 4.49 10*6/uL Normal 4.20-6.00 [facility] Comment on above: Order Comment: Speci men Type: BLOOD SPECIMENOrdering Facility: [facility] Address: [address] [place] [address] Performed By: #### 5 8410-2, 10368-4 ####[facility] LABCLIA [id number] [place] [address] [place] WBC (Bld) [#/Vol] 16.08 10*3/uL High 3.70-11.00 [facility] Comment on above: Order Comment: Speci men Type: BLOOD SPECIMENOrdering Facility: [facility] Address: [address] [place] [address] Performed By: #### 5 8410-2, 77728-0 ####[facility] LABCLIA [id number] [place] [address] [place] CONSULT PROGon 10-22-2023 CONSULT PROG Normal [facility] Comprehensive metabolic 2000 panelon 10-22-2023 Albumin [Mass/Vol] 3.0 g/dL Low 3.9-4.9 [facility] Comment on above: Order Comment: Speci men Type: BLOOD SPECIMENOrdering Facility: [facility] Address: [address] [place] [address] Performed By: #### 2 4323-8, 65067-0 ####[facility] LABCLIA [id number] [place] [address] [place] ALP [Catalytic activity/Vol] 263 U/L High 38-113 [facility] Comment on above: Order Comment: Speci men Type: BLOOD SPECIMENOrdering Facility: [facility] Address: [address] [place] [address] Performed By: #### 2 4323-8, 52451-7 ####[facility] LABCLIA [id number] [place] [address] [place] ALT [Catalytic activity/Vol] 29 U/L Normal 10-54 [facility] Comment on above: Order Comment: Speci men Type: BLOOD SPECIMENOrdering Facility: [facility] Address: [address] [place] [address] Performed By: #### 2 4323-8, 59168-8 ####[facility] LABCLIA [id number] [place] [address] [place] Anion gap [Moles/Vol] 9 mmol/L Normal 9-18 [facility] Comment on above: Order Comment: Speci men Type: BLOOD SPECIMENOrdering Facility: [facility] Address: [address] [place] [address] Performed By: #### 2 4323-8, 74691-5 ####[facility] LABCLIA [id number] [place] [address] [place] AST [Catalytic activity/Vol] 14 U/L Normal 14-40 [facility] Comment on above: Order Comment: Speci men Type: BLOOD SPECIMENOrdering Facility: [facility] Address: [address] [place] [address] Performed By: #### 2 4323-8, 16104-2 ####[facility] LABCLIA [id number] [place] [address] [place] Bilirubin [Mass/Vol] 0.2 mg/dL Normal 0.2-1.3 [facility] Comment on above: Order Comment: Speci men Type: BLOOD SPECIMENOrdering Facility: [facility] Address: [address] [place] [address] Performed By: #### 2 4323-8, 72663-5 ####[facility] LABCLIA [id number] [place] [address] [place] Calcium [Mass/Vol] 9.9 mg/dL Normal 8.5-10.2 [facility] Comment on above: Order Comment: Speci men Type: BLOOD SPECIMENOrdering Facility: [facility] Address: [address] [place] [address] Performed By: #### 2 4323-8, 54777-8 ####[facility] LABCLIA [id number] [place] [address] [place] Chloride [Moles/Vol] 96 mmol/L Low 97-105 [facility] Comment on above: Order Comment: Speci men Type: BLOOD SPECIMENOrdering Facility: [facility] Address: [address] [place] [address] Performed By: #### 2 4323-8, 02880-2 ####[facility] LABIA [id number] [place] [address] [place] CO2 [Moles/Vol] 34 mmol/L High 22-30 [facility] Comment on above: Order Comment: Speci men Type: BLOOD SPECIMENOrdering Facility: [facility] Address: [address] [place] [address] Performed By: #### 2 4323-8, 18404-3 ####[facility] LABIA [id number] [place] [address] [place] Creatinine [Mass/Vol] 0.41 mg/dL Low 0.73-1.22 [facility] Comment on above: Order Comment: Speci men Type: BLOOD SPECIMENOrdering Facility: [facility] Address: [address] [place] [address] Performed By: #### 2 4323-8, 26142-8 ####[facility] LABIA [id number] [place] [address] [place] Creatinine and Glomerular filtration rate.predicted panel (S/P/Bld) 141 mL/min/1.73m??? Normal >=60 [facility] Comment on above: Order Comment: Speci men Type: BLOOD SPECIMENOrdering Facility: [facility] Address: [address] [place] [address] Result Comment: Rae mated Glomerular Filtration Rate (eGFR) is calculated using the 2020 CKD-EPI creatinine equation. This equation utilizes serum creatinine, sex, and age as parameters. The creatinine assay has traceable calibration to isotope dilution-mass spectrometry. Refer to KDIGO guidelines for clinical interpretation. In patients with unstable renal function, e.g. those with acute kidney injury, the eGFR may not accurately reflect actual GFR. Performed By: #### 2 4323-8, 91250-5 ####[facility] LABCLIA [id number] [address] [address] [place] Glucose [Mass/Vol] 106 mg/dL High 74-99 [facility] Comment on above: Order Comment: Darwin schwarz Type: BLOOD SPECIMENOrdering Facility: [facility] Address: [address] [place] [address] Result Comment: The [place] [employer] (ADA) provides guidance for cutoff values for fasting glucose and random glucose. The ADA defines fasting as no caloric intake for at least 8 hours. Fasting plasma glucose results between 100 to 125 mg/dL indicate increased risk for diabetes (prediabetes).Fasting plasma glucose results greater than or equal to 126 mg/dL meet the criteria for diagnosis of diabetes. In the absence of unequivocal hyperglycemia, results should be confirmed by repeat testing. In a patient with classic symptoms of hyperglycemia or hyperglycemic crisis, random plasma glucose results greater than or equal to 200 mg/dL meet the criteria for diagnosis of diabetes.Reference: Standards of Medical Care in Diabetes 2016, [place] [employer]. Diabetes Care. 2016.39(Suppl 1). Performed By: #### 2 4323-8, 17374-3 ####[facility] LABCLIA [id number] [facility] [address] [address] [place] Potassium [Moles/Vol] 4.2 mmol/L Normal 3.7-5.1 [facility] Comment on above: Order Comment: Darwin schwarz Type: BLOOD SPECIMENOrdering Facility: [facility] Address: [address] [place] [address] Performed By: #### 2 4323-8, 27636-1 ####[facility] LABCLIA [id number] [facility] [address] [address] [place] Protein [Mass/Vol] 6.5 g/dL Normal 6.3-8.0 [facility] Comment on above: Order Comment: Speci men Type: BLOOD SPECIMENOrdering Facility: [facility] Address: [address] [place] [address] Performed By: #### 2 4323-8, 98348-4 ####[facility] LABCLIA [id number] [place] [address] [place] Sodium [Moles/Vol] 139 mmol/L Normal 136-144 [facility] Comment on above: Order Comment: Speci men Type: BLOOD SPECIMENOrdering Facility: [facility] Address: [address] [place] [address] Performed By: #### 2 4323-8, 20940-6 ####[facility] LABIA [id number] [place] [address] [place] Urea nitrogen [Mass/Vol] 11 mg/dL Normal 9-24 [facility] Comment on above: Order Comment: Speci men Type: BLOOD SPECIMENOrdering Facility: [facility] Address: [address] [place] [address] Performed By: #### 2 4323-8, 62512-7 ####[facility] LABIA [id number] [place] [address] [place] Procalcitonin SerPl-mCncon 0 10-22-2023 Procalcitonin [Mass/Vol] 0.09 ng/mL High <0.09 [facility] Comment on above: Order Comment: Speci men Type: BLOOD SPECIMENOrdering Facility: [facility] Address: [address] [place] [address] Result Comment: For a guided interpretation of test results, please visit the Change in Procalcitonin Calculator, [email or web address]. Performed By: #### 2 4323-8, 32862-7 ####[facility] LABIA [id number] [place] [address] [place] THERAPY NTon 10-22-2023 THERAPY NT Normal [facility] Urinalysis complete panel (U )on 10-22-2023 Bacteria LM.HPF (Urine sed) [#/Area] Negative Normal Negative [facility] Comment on above: Order Comment: Speci men Type: URINE SPECIMENOrdering Facility: [facility] Address: [address] [place] [address] Performed By: #### 2 4356-8 ####[facility] LABCLIA [id number] [place] [address] [place] Bilirubin Ql (U) Negative Normal Negative [facility] Comment on above: Order Comment: Speci men Type: URINE SPECIMENOrdering Facility: [facility] Address: [address] [place] [address] Performed By: #### 2 4356-8 ####[facility] LABCLIA [id number] [place] [address] [place] Clarity (Unsp spec) Cloudy Abnormal Clear [facility] Comment on above: Order Comment: Speci men Type: URINE SPECIMENOrdering Facility: [facility] Address: [address] [place] [address] Performed By: #### 2 4356-8 ####[facility] LABCLIA [id number] [place] [address] [place] Color (U) Yellow Normal Yellow [facility] Comment on above: Order Comment: Speci men Type: URINE SPECIMENOrdering Facility: [facility] Address: [address] [place] [address] Performed By: #### 2 4356-8 ####[facility] LABCLIA [id number] [place] [address] [place] Epithelial cells LM.HPF (Urine sed) [#/Area] None Seen Normal [facility] Comment on above: Order Comment: Speci men Type: URINE SPECIMENOrdering Facility: [facility] Address: [address] [place] [address] Performed By: #### 2 4356-8 ####[facility] LABCLIA [id number] [place] [address] [place] Glucose Test strip (U) [Mass/Vol] Negative Normal Negative [facility] Comment on above: Order Comment: Speci men Type: URINE SPECIMENOrdering Facility: [facility] Address: [address] [place] [address] Performed By: #### 2 4356-8 ####[facility] LABCLIA [id number] [place] [address] [place] Hemoglobin Ql (U) 2+ Abnormal Negative [facility] Comment on above: Order Comment: Speci men Type: URINE SPECIMENOrdering Facility: [facility] Address: [address] [place] [address] Performed By: #### 2 4356-8 ####[facility] LABCLIA [id number] [place] [address] [place] Hyaline casts (Urine sed) [#/Area] 1-3 /LPF Abnormal 0 /LPF [facility] Comment on above: Order Comment: Speci men Type: URINE SPECIMENOrdering Facility: [facility] Address: [address] [place] [address] Performed By: #### 2 4356-8 ####[facility] LABCLIA [id number] [place] [address] [place] Ketones Ql (U) Negative Normal Negative [facility] Comment on above: Order Comment: Speci men Type: URINE SPECIMENOrdering Facility: [facility] Address: [address] [place] [address] Performed By: #### 2 4356-8 ####[facility] LABCLIA [id number] [place] [address] [place] Leukocyte esterase Test strip Ql (U) Negative Normal Negative [facility] Comment on above: Order Comment: Speci men Type: URINE SPECIMENOrdering Facility: [facility] Address: [address] [place] [address] Performed By: #### 2 4356-8 ####[facility] LABCLIA [id number] [place] [address] [place] Nitrite Ql (U) Negative Normal Negative [facility] Comment on above: Order Comment: Speci men Type: URINE SPECIMENOrdering Facility: [facility] Address: [address] [place] [address] Performed By: #### 2 4356-8 ####[facility] LABCLIA [id number] [place] [address] [place] pH (U) 8.0 [pH] Normal <8.5 [facility] Comment on above: Order Comment: Speci men Type: URINE SPECIMENOrdering Facility: [facility] Address: [address] [place] [address] Performed By: #### 2 4356-8 ####[facility] LABCLIA [id number] [place] [address] [place] Protein (U) [Mass/Vol] 1+ Abnormal Negative [facility] Comment on above: Order Comment: Speci men Type: URINE SPECIMENOrdering Facility: [facility] Address: [address] [place] [address] Performed By: #### 2 4356-8 ####[facility] LABCLIA [id number] [place] [address] [place] RBC LM.HPF (Urine sed) [#/Area] /[HPF] Abnormal 0-2 /HPF [facility] Comment on above: Order Comment: Speci men Type: URINE SPECIMENOrdering Facility: [facility] Address: [address] [place] [address] Performed By: #### 2 4356-8 ####[facility] LABCLIA [id number] [place] [address] [place] Specific gravity (U) [Rel density] 1.016 Normal 1.005-1.030 [facility] Comment on above: Order Comment: Speci men Type: URINE SPECIMENOrdering Facility: [facility] Address: [address] [place] [address] Performed By: #### 2 4356-8 ####[facility] LABCLIA [id number] [place] [address] [place] Urobilinogen Ql (U) 0.2 EU/dL Normal 0.2-1.0 EU/dL [facility] Comment on above: Order Comment: Speci men Type: URINE SPECIMENOrdering Facility: [facility] Address: [address] [place] [address] Performed By: #### 2 4356-8 ####[facility] LABCLIA [id number] [place] [address] [place] WBC LM.HPF (Urine sed) [#/Area] 0-5 /HPF Normal 0-5 /HPF [facility] Comment on above: Order Comment: Speci men Type: URINE SPECIMENOrdering Facility: [facility] Address: [address] [place] [address] Performed By: #### 2 4356-8 ####[facility] LABIA [id number] [place] [address] [place] XR CHEST 1V FRONTAL PORTon 0 10-22-2023 XR CHEST 1V FRONTAL PORT Normal [facility] aPTT PPPon 10-22-2023 aPTT Coag (PPP) [Time] 33.9 s High 23.0-32.4 [facility] Comment on above: Order Comment: Speci men Type: BLOOD SPECIMENOrdering Facility: [facility] Address: [address] [place] [address] Performed By: #### 1 4979-9 ####[facility] LABIA [id number] [place] [address] [place] CASE MANAGEMon 10-21-2023 CASE MANAGEM Normal [facility] CBC panel Auto (Bld)on 10-21 Erythrocyte distribution width (RBC) [Ratio] 18.9 % High 11.5-15.0 [facility] Comment on above: Order Comment: Speci men Type: BLOOD SPECIMENOrdering Facility: [facility] Address: [address] [place] [address] Performed By: #### 5 8410-2 ####[facility] LABIA [id number] [place] [address] [place] Hematocrit (Bld) [Volume fraction] 35.4 % Low 39.0-51.0 [facility] Comment on above: Order Comment: Speci men Type: BLOOD SPECIMENOrdering Facility: [facility] Address: [address] [place] [address] Performed By: #### 5 8410-2 ####[facility] LABIA [id number] [place] [address] [place] Hemoglobin (Bld) [Mass/Vol] 10.4 g/dL Low 13.0-17.0 [facility] Comment on above: Order Comment: Speci men Type: BLOOD SPECIMENOrdering Facility: [facility] Address: [address] [place] [address] Performed By: #### 5 8410-2 ####[facility] LABIA [id number] [place] [address] [place] MCH (RBC) [Entitic mass] 25.1 pg Low 26.0-34.0 [facility] Comment on above: Order Comment: Speci men Type: BLOOD SPECIMENOrdering Facility: [facility] Address: [address] [place] [address] Performed By: #### 5 8410-2 ####[facility] LABCLIA [id number] [place] [address] [place] MCHC (RBC) [Mass/Vol] 29.4 g/dL Low 30.5-36.0 [facility] Comment on above: Order Comment: Speci men Type: BLOOD SPECIMENOrdering Facility: [facility] Address: [address] [place] [address] Performed By: #### 5 8410-2 ####[facility] LABIA [id number] [place] [address] [place] MCV (RBC) [Entitic vol] 85.3 fL Normal 80.0-100.0 [facility] Comment on above: Order Comment: Speci men Type: BLOOD SPECIMENOrdering Facility: [facility] Address: [address] [place] [address] Performed By: #### 5 8410-2 ####[facility] [id number] [place] [address] [place] Nucleated RBC (Bld) [#/Vol] 10*3/uL Normal <0.01 [facility] Comment on above: Order Comment: Speci men Type: BLOOD SPECIMENOrdering Facility: [facility] Address: [address] [place] [address] Performed By: #### 5 8410-2 ####[facility] [id number] [place] [address] [place] Platelet mean volume (Bld) [Entitic vol] 10.4 fL Normal 9.0-12.7 [facility] Comment on above: Order Comment: Speci men Type: BLOOD SPECIMENOrdering Facility: [facility] Address: [address] [place] [address] Performed By: #### 5 8410-2 ####[facility] LABIA [id number] [place] [address] [place] Platelets (Bld) [#/Vol] 530 10*3/uL High 150-400 [facility] Comment on above: Order Comment: Speci men Type: BLOOD SPECIMENOrdering Facility: [facility] Address: [address] [place] [address] Performed By: #### 5 8410-2 ####[facility] [facility] [id number] [address] [address] [place] RBC (Bld) [#/Vol] 4.15 10*6/uL Low 4.20-6.00 [facility] Comment on above: Order Comment: Speci men Type: BLOOD SPECIMENOrdering Facility: [facility] Address: [address] [place] [address] Performed By: #### 5 8410-2 ####[facility] [id number] [place] [address] [place] WBC (Bld) [#/Vol] 11.74 10*3/uL High 3.70-11.00 [facility] Comment on above: Order Comment: Speci men Type: BLOOD SPECIMENOrdering Facility: [facility] Address: [address] [place] [address] Performed By: #### 5 8410-2 ####[facility] [id number] [place] [address] [place] CONSULT PROGon 10-21-2023 CONSULT PROG Normal [facility] Comprehensive metabolic 2000 panelon 10-21-2023 Albumin [Mass/Vol] 2.9 g/dL Low 3.9-4.9 [facility] Comment on above: Order Comment: Speci men Type: BLOOD SPECIMENOrdering Facility: [facility] Address: [address] [place] [address] Performed By: #### 2 4323-8 ####[facility] [id number] [place] [id number] [place] ALP [Catalytic activity/Vol] 290 U/L High 38-113 [facility] Comment on above: Order Comment: Speci men Type: BLOOD SPECIMENOrdering Facility: [facility] Address: [address] [place] [address] Performed By: #### 2 4323-8 ####[facility] [id number] [address] [address] [place] ALT [Catalytic activity/Vol] 34 U/L Normal 10-54 [facility] Comment on above: Order Comment: Speci men Type: BLOOD SPECIMENOrdering Facility: [facility] Address: [address] [place] [address] Performed By: #### 2 4323-8 ####[facility] [id number] [place] [address] [place] Anion gap [Moles/Vol] 11 mmol/L Normal 9-18 [facility] Comment on above: Order Comment: Speci men Type: BLOOD SPECIMENOrdering Facility: [facility] Address: [address] [place] [address] Performed By: #### 2 4323-8 ####[facility] [id number] [place] [address] [place] AST [Catalytic activity/Vol] 13 U/L Low 14-40 [facility] Comment on above: Order Comment: Speci men Type: BLOOD SPECIMENOrdering Facility: [facility] Address: [address] [place], [place] [address] Performed By: #### 2 4323-8 ####[facility] [id number] [place] [address] [place] Bilirubin [Mass/Vol] 0.2 mg/dL Normal 0.2-1.3 [facility] Comment on above: Order Comment: Speci men Type: BLOOD SPECIMENOrdering Facility: [facility] Address: [address] [place] [address] Performed By: #### 2 4323-8 ####[facility] [id number] [place] [id number] [place] Calcium [Mass/Vol] 9.5 mg/dL Normal 8.5-10.2 [facility] Comment on above: Order Comment: Speci men Type: BLOOD SPECIMENOrdering Facility: [facility] Address: [address] [place] [address] Performed By: #### 2 4323-8 ####[facility] [id number] [place] [address] [place] Chloride [Moles/Vol] 96 mmol/L Low 97-105 [facility] Comment on above: Order Comment: Speci men Type: BLOOD SPECIMENOrdering Facility: [facility] Address: [address] [place] [address] Performed By: #### 2 4323-8 ####[facility] [id number] [place] [address] [place] CO2 [Moles/Vol] 33 mmol/L High 22-30 [facility] Comment on above: Order Comment: Speci men Type: BLOOD SPECIMENOrdering Facility: [facility] Address: [address] [place] [address] Performed By: #### 2 4323-8 ####[facility] [id number] [place] [address] [place] Creatinine [Mass/Vol] 0.46 mg/dL Low 0.73-1.22 [facility] Comment on above: Order Comment: Speci men Type: BLOOD SPECIMENOrdering Facility: [facility] Address: [address] [place] [address] Performed By: #### 2 4323-8 ####[facility] [id number] [place] [address] [place] Creatinine and Glomerular filtration rate.predicted panel (S/P/Bld) 136 mL/min/1.73m??? Normal >=60 [facility] Comment on above: Order Comment: Speci men Type: BLOOD SPECIMENOrdering Facility: [facility] Address: [address] [place] [address] Result Comment: Rae mated Glomerular Filtration Rate (eGFR) is calculated using the 2020 CKD-EPI creatinine equation. This equation utilizes serum creatinine, sex, and age as parameters. The creatinine assay has traceable calibration to isotope dilution-mass spectrometry. Refer to KDIGO guidelines for clinical interpretation. In patients with unstable renal function, e.g. those with acute kidney injury, the eGFR may not accurately reflect actual GFR. Performed By: #### 2 4323-8 ####[facility] [id number] [place] [address] [place] Glucose [Mass/Vol] 99 mg/dL Normal 74-99 [facility] Comment on above: Order Comment: Darwin schwarz Type: BLOOD SPECIMENOrdering Facility: [facility] Address: [address] [place] [address] Result Comment: The [place] [employer] (ADA) provides guidance for cutoff values for fasting glucose and random glucose. The ADA defines fasting as no caloric intake for at least 8 hours. Fasting plasma glucose results between 100 to 125 mg/dL indicate increased risk for diabetes (prediabetes).Fasting plasma glucose results greater than or equal to 126 mg/dL meet the criteria for diagnosis of diabetes. In the absence of unequivocal hyperglycemia, results should be confirmed by repeat testing. In a patient with classic symptoms of hyperglycemia or hyperglycemic crisis, random plasma glucose results greater than or equal to 200 mg/dL meet the criteria for diagnosis of diabetes.Reference: Standards of Medical Care in Diabetes 2016, [place] [employer]. Diabetes Care. 2016.39(Suppl 1). Performed By: #### 2 4323-8 ####[facility] [id number] [place] [id number] [place] Potassium [Moles/Vol] 4.3 mmol/L Normal 3.7-5.1 [facility] Comment on above: Order Comment: Darwin schwarz Type: BLOOD SPECIMENOrdering Facility: [facility] Address: [address] [place] [address] Performed By: #### 2 4323-8 ####[facility] [id number] [place] [id number] [place] Protein [Mass/Vol] 6.0 g/dL Low 6.3-8.0 [facility] Comment on above: Order Comment: Speci men Type: BLOOD SPECIMENOrdering Facility: [facility] Address: [address] [place] [address] Performed By: #### 2 4323-8 ####[facility] [id number] [place] [address] [place] Sodium [Moles/Vol] 140 mmol/L Normal 136-144 [facility] Comment on above: Order Comment: Speci men Type: BLOOD SPECIMENOrdering Facility: [facility] Address: [address] [place] [address] Performed By: #### 2 4323-8 ####[facility] [id number] [place] [address] [place] Urea nitrogen [Mass/Vol] 12 mg/dL Normal 9-24 [facility] Comment on above: Order Comment: Speci men Type: BLOOD SPECIMENOrdering Facility: [facility] Address: [address] [place] [address] Performed By: #### 2 4323-8 ####[facility] [id number] [place] [address] [place] NUTRITIONon 10-21-2023 NUTRITION Normal [facility] THERAPY NTon 10-21-2023 THERAPY NT Normal [facility] XR CHEST 1V FRONTAL PORTon 0 10-21-2023 XR CHEST 1V FRONTAL PORT Normal [facility] aPTT PPPon 10-21-2023 aPTT Coag (PPP) [Time] 33.3 s High 23.0-32.4 [facility] Comment on above: Order Comment: Speci men Type: BLOOD SPECIMENOrdering Facility: [facility] Address: [address] [place] [address] Performed By: #### 1 4979-9 ####[facility] [id number] [place] [address] [place] CBC panel Auto (Bld)on 10-20 Erythrocyte distribution width (RBC) [Ratio] 18.6 % High 11.5-15.0 [facility] Comment on above: Order Comment: Speci men Type: BLOOD SPECIMENOrdering Facility: [facility] Address: [address] [place] [address] Performed By: #### 5 8410-2 ####[facility] [id number] [place] [address] [place] Hematocrit (Bld) [Volume fraction] 33.1 % Low 39.0-51.0 [facility] Comment on above: Order Comment: Speci men Type: BLOOD SPECIMENOrdering Facility: [facility] Address: [address] [place] [address] Performed By: #### 5 8410-2 ####[facility] [id number] [address] [place] Hemoglobin (Bld) [Mass/Vol] 9.7 g/dL Low 13.0-17.0 [facility] Comment on above: Order Comment: Speci men Type: BLOOD SPECIMENOrdering Facility: [facility] Address: [address] [place] [address] Performed By: #### 5 8410-2 ####[facility] [id number] [place] [address] [place] MCH (RBC) [Entitic mass] 24.8 pg Low 26.0-34.0 [facility] Comment on above: Order Comment: Speci men Type: BLOOD SPECIMENOrdering Facility: [facility] Address: [address] [place] [address] Performed By: #### 5 8410-2 ####[facility] [id number] [place] [address] [place] MCHC (RBC) [Mass/Vol] 29.3 g/dL Low 30.5-36.0 [facility] Comment on above: Order Comment: Speci men Type: BLOOD SPECIMENOrdering Facility: [facility] Address: [address] [place] [address] Performed By: #### 5 8410-2 ####[facility] [id number] [place] [address] [place] MCV (RBC) [Entitic vol] 84.7 fL Normal 80.0-100.0 [facility] Comment on above: Order Comment: Speci men Type: BLOOD SPECIMENOrdering Facility: [facility] Address: [address] [place] [address] Performed By: #### 5 8410-2 ####[facility] [id number] [place] [address] [place] Nucleated RBC (Bld) [#/Vol] 10*3/uL Normal <0.01 [facility] Comment on above: Order Comment: Speci men Type: BLOOD SPECIMENOrdering Facility: [facility] Address: [address] [place] [address] Performed By: #### 5 8410-2 ####[facility] [id number] [place] [address] [place] Platelet mean volume (Bld) [Entitic vol] 10.1 fL Normal 9.0-12.7 [facility] Comment on above: Order Comment: Speci men Type: BLOOD SPECIMENOrdering Facility: [facility] Address: [address] [place] [address] Performed By: #### 5 8410-2 ####[facility] [id number] [place] [address] [place] Platelets (Bld) [#/Vol] 470 10*3/uL High 150-400 [facility] Comment on above: Order Comment: Speci men Type: BLOOD SPECIMENOrdering Facility: [facility] Address: [address] [place] [address] Performed By: #### 5 8410-2 ####[facility] [id number] [place] [address] [place] RBC (Bld) [#/Vol] 3.91 10*6/uL Low 4.20-6.00 [facility] Comment on above: Order Comment: Speci men Type: BLOOD SPECIMENOrdering Facility: [facility] Address: [address] [place] [address] Performed By: #### 5 8410-2 ####[facility] [id number] [place] [address] [place] WBC (Bld) [#/Vol] 8.55 10*3/uL Normal 3.70-11.00 [facility] Comment on above: Order Comment: Speci men Type: BLOOD SPECIMENOrdering Facility: [facility] Address: [address] [place] [address] Performed By: #### 5 8410-2 ####[facility] [id number] [place] [address] [place] Comprehensive metabolic 2000 panelon 10-20-2023 Albumin [Mass/Vol] 2.8 g/dL Low 3.9-4.9 [facility] Comment on above: Order Comment: Speci men Type: BLOOD SPECIMENOrdering Facility: [facility] Address: [address] [place] [address] Performed By: #### 2 4323-8 ####[facility] [id number] [place] [address] [place] ALP [Catalytic activity/Vol] 328 U/L High 38-113 [facility] Comment on above: Order Comment: Speci men Type: BLOOD SPECIMENOrdering Facility: [facility] Address: [address] [place] [address] Performed By: #### 2 4323-8 ####[facility] [id number] [place] [address] [place] ALT [Catalytic activity/Vol] 45 U/L Normal 10-54 [facility] Comment on above: Order Comment: Speci men Type: BLOOD SPECIMENOrdering Facility: [facility] Address: [address] [place] [address] Performed By: #### 2 4323-8 ####[facility] [id number] [place] [address] [place] Anion gap [Moles/Vol] 8 mmol/L Low 9-18 [facility] Comment on above: Order Comment: Speci men Type: BLOOD SPECIMENOrdering Facility: [facility] Address: [address] [place] [address] Performed By: #### 2 4323-8 ####[facility] [id number] [place] [address] [place] AST [Catalytic activity/Vol] 16 U/L Normal 14-40 [facility] Comment on above: Order Comment: Speci men Type: BLOOD SPECIMENOrdering Facility: [facility] Address: [address] [place] [address] Performed By: #### 2 4323-8 ####[facility] [id number] [place] [address] [place] Bilirubin [Mass/Vol] 0.2 mg/dL Normal 0.2-1.3 [facility] Comment on above: Order Comment: Speci men Type: BLOOD SPECIMENOrdering Facility: [facility] Address: [address] [place], [place] [address] Performed By: #### 2 4323-8 ####[facility] [id number] [place] [address] [place] Calcium [Mass/Vol] 10.0 mg/dL Normal 8.5-10.2 [facility] Comment on above: Order Comment: Speci men Type: BLOOD SPECIMENOrdering Facility: [facility] Address: [address] [place] [address] Performed By: #### 2 4323-8 ####[facility] [id number] [place] [address] [place] Chloride [Moles/Vol] 96 mmol/L Low 97-105 [facility] Comment on above: Order Comment: Speci men Type: BLOOD SPECIMENOrdering Facility: [facility] Address: [address] [place] [address] Performed By: #### 2 4323-8 ####[facility] [id number] [place] [address] [place] CO2 [Moles/Vol] 35 mmol/L High 22-30 [facility] Comment on above: Order Comment: Speci men Type: BLOOD SPECIMENOrdering Facility: [facility] Address: [address] [place] [address] Performed By: #### 2 4323-8 ####[facility] [id number] [place] [address] [place] Creatinine [Mass/Vol] 0.43 mg/dL Low 0.73-1.22 [facility] Comment on above: Order Comment: Speci men Type: BLOOD SPECIMENOrdering Facility: [facility] Address: [address] [place] [address] Performed By: #### 2 4323-8 ####[facility] [id number] [place] [address] [place] Creatinine and Glomerular filtration rate.predicted panel (S/P/Bld) 139 mL/min/1.73m??? Normal >=60 [facility] Comment on above: Order Comment: Speci men Type: BLOOD SPECIMENOrdering Facility: [facility] Address: [address] [place] [address] Result Comment: Rae mated Glomerular Filtration Rate (eGFR) is calculated using the 2020 CKD-EPI creatinine equation. This equation utilizes serum creatinine, sex, and age as parameters. The creatinine assay has traceable calibration to isotope dilution-mass spectrometry. Refer to KDIGO guidelines for clinical interpretation. In patients with unstable renal function, e.g. those with acute kidney injury, the eGFR may not accurately reflect actual GFR. Performed By: #### 2 4323-8 ####[facility] [id number] [place] [address] [place] Glucose [Mass/Vol] 110 mg/dL High 74-99 [facility] Comment on above: Order Comment: Darwin schwarz Type: BLOOD SPECIMENOrdering Facility: [facility] Address: [address] [place] [address] Result Comment: The [place] [employer] (ADA) provides guidance for cutoff values for fasting glucose and random glucose. The ADA defines fasting as no caloric intake for at least 8 hours. Fasting plasma glucose results between 100 to 125 mg/dL indicate increased risk for diabetes (prediabetes).Fasting plasma glucose results greater than or equal to 126 mg/dL meet the criteria for diagnosis of diabetes. In the absence of unequivocal hyperglycemia, results should be confirmed by repeat testing. In a patient with classic symptoms of hyperglycemia or hyperglycemic crisis, random plasma glucose results greater than or equal to 200 mg/dL meet the criteria for diagnosis of diabetes.Reference: Standards of Medical Care in Diabetes 2016, [place] [employer]. Diabetes Care. 2016.39(Suppl 1). Performed By: #### 2 4323-8 ####[facility] [id number] [place] [id number] [place] Potassium [Moles/Vol] 4.2 mmol/L Normal 3.7-5.1 [facility] Comment on above: Order Comment: Darwin schwarz Type: BLOOD SPECIMENOrdering Facility: [facility] Address: [address] [place] [address] Performed By: #### 2 4323-8 ####[facility] [id number] [address] [address] [place] Protein [Mass/Vol] 6.2 g/dL Low 6.3-8.0 [facility] Comment on above: Order Comment: Speci men Type: BLOOD SPECIMENOrdering Facility: [facility] Address: [address] [place] [address] Performed By: #### 2 4323-8 ####[facility] [id number] [place] [address] [place] Sodium [Moles/Vol] 139 mmol/L Normal 136-144 [facility] Comment on above: Order Comment: Speci men Type: BLOOD SPECIMENOrdering Facility: [facility] Address: [address] [place] [address] Performed By: #### 2 4323-8 ####[facility] [id number] [place] [address] [place] Urea nitrogen [Mass/Vol] 8 mg/dL Low 9-24 [facility] Comment on above: Order Comment: Speci men Type: BLOOD SPECIMENOrdering Facility: [facility] Address: [address] [place] [address] Performed By: #### 2 4323-8 ####[facility] [id number] [place] [address] [place] PTT, ANTICOAGULANT THERAPYon 10-20-2023 aPTT Coag (PPP) [Time] 34.6 s High 23.0-32.4 [facility] Comment on above: Order Comment: Speci men Type: BLOOD SPECIMENOrdering Facility: [facility] Address: [address] [place] [address] Performed By: #### P TTAC ####[facility] [id number] [place] [address] [place] CBC panel Auto (Bld)on 10-19 Erythrocyte distribution width (RBC) [Ratio] 18.5 % High 11.5-15.0 [facility] Comment on above: Order Comment: Speci men Type: BLOOD SPECIMENOrdering Facility: [facility] Address: [address] [place] [address] Performed By: #### 5 8410-2 ####[facility] [id number] [place] [address] [place] Hematocrit (Bld) [Volume fraction] 35.4 % Low 39.0-51.0 [facility] Comment on above: Order Comment: Speci men Type: BLOOD SPECIMENOrdering Facility: [facility] Address: [address] [place] [address] Performed By: #### 5 8410-2 ####[facility] [id number] [place] [address] [place] Hemoglobin (Bld) [Mass/Vol] 10.5 g/dL Low 13.0-17.0 [facility] Comment on above: Order Comment: Speci men Type: BLOOD SPECIMENOrdering Facility: [facility] Address: [address] [place] [address] Performed By: #### 5 8410-2 ####[facility] [id number] [place] [address] [place] MCH (RBC) [Entitic mass] 24.9 pg Low 26.0-34.0 [facility] Comment on above: Order Comment: Speci men Type: BLOOD SPECIMENOrdering Facility: [facility] Address: [address] [place] [address] Performed By: #### 5 8410-2 ####[facility] [id number] [place] [address] [place] MCHC (RBC) [Mass/Vol] 29.7 g/dL Low 30.5-36.0 [facility] Comment on above: Order Comment: Speci men Type: BLOOD SPECIMENOrdering Facility: [facility] Address: [address] [place] [address] Performed By: #### 5 8410-2 ####[facility] [id number] [place] [address] [place] MCV (RBC) [Entitic vol] 83.9 fL Normal 80.0-100.0 [facility] Comment on above: Order Comment: Speci men Type: BLOOD SPECIMENOrdering Facility: [facility] Address: [address] [place] [address] Performed By: #### 5 8410-2 ####[facility] [id number] [place] [address] [place] [place] Nucleated RBC (Bld) [#/Vol] 10*3/uL Normal <0.01 [facility] Comment on above: Order Comment: Speci men Type: BLOOD SPECIMENOrdering Facility: [facility] Address: [address] [place] [address] Performed By: #### 5 8410-2 ####[facility] LABCLIA [id number] [place] [address] [place] Platelet mean volume (Bld) [Entitic vol] 10.2 fL Normal 9.0-12.7 [facility] Comment on above: Order Comment: Speci men Type: BLOOD SPECIMENOrdering Facility: [facility] Address: [address] [place] [address] Performed By: #### 5 8410-2 ####[facility] LABCLIA [id number] [place] [address] [place] Platelets (Bld) [#/Vol] 508 10*3/uL High 150-400 [facility] Comment on above: Order Comment: Speci men Type: BLOOD SPECIMENOrdering Facility: [facility] Address: [address] [place] [address] Performed By: #### 5 8410-2 ####[facility] LABCLIA [id number] [place] [address] [place] RBC (Bld) [#/Vol] 4.22 10*6/uL Normal 4.20-6.00 [facility] Comment on above: Order Comment: Speci men Type: BLOOD SPECIMENOrdering Facility: [facility] Address: [address] [place] [address] Performed By: #### 5 8410-2 ####[facility] LABCLIA [id number] [place] [address] [place] WBC (Bld) [#/Vol] 12.37 10*3/uL High 3.70-11.00 [facility] Comment on above: Order Comment: Speci men Type: BLOOD SPECIMENOrdering Facility: [facility] Address: [address] [place] [address] Performed By: #### 5 8410-2 ####[facility] LABCLIA [id number] [place] [address] [place] Comprehensive metabolic 2000 panelon 10-19-2023 Albumin [Mass/Vol] 2.8 g/dL Low 3.9-4.9 [facility] Comment on above: Order Comment: Speci men Type: BLOOD SPECIMENOrdering Facility: [facility] Address: [address] [place] [address] Performed By: #### 2 4323-8 ####[facility] LABCLIA [id number] [place] [address] [place] ALP [Catalytic activity/Vol] 422 U/L High 38-113 [facility] Comment on above: Order Comment: Speci men Type: BLOOD SPECIMENOrdering Facility: [facility] Address: [address] [place] [address] Performed By: #### 2 4323-8 ####[facility] LABCLIA [id number] [place] [address] [place] ALT [Catalytic activity/Vol] 67 U/L High 10-54 [facility] Comment on above: Order Comment: Speci men Type: BLOOD SPECIMENOrdering Facility: [facility] Address: [address] [place], [place] [address] Performed By: #### 2 4323-8 ####[facility] LABCLIA [id number] [place] [address] [place] Anion gap [Moles/Vol] 8 mmol/L Low 9-18 [facility] Comment on above: Order Comment: Speci men Type: BLOOD SPECIMENOrdering Facility: [facility] Address: [address] [place] [address] Performed By: #### 2 4323-8 ####[facility] LABCLIA [id number] [place] [address] [place] AST [Catalytic activity/Vol] 23 U/L Normal 14-40 [facility] Comment on above: Order Comment: Speci men Type: BLOOD SPECIMENOrdering Facility: [facility] Address: [address] [place] [address] Performed By: #### 2 4323-8 ####[facility] LABCLIA [id number] [place] [address] [place] Bilirubin [Mass/Vol] mg/dL Low 0.2-1.3 [facility] Comment on above: Order Comment: Speci men Type: BLOOD SPECIMENOrdering Facility: [facility] Address: [address] [place] [address] Performed By: #### 2 4323-8 ####[facility] LABCLIA [id number] [place] [address] [place] Calcium [Mass/Vol] 9.5 mg/dL Normal 8.5-10.2 [facility] Comment on above: Order Comment: Speci men Type: BLOOD SPECIMENOrdering Facility: [facility] Address: [address] [place] [address] Performed By: #### 2 4323-8 ####[facility] LABCLIA [id number] [place] [address] [place] Chloride [Moles/Vol] 97 mmol/L Normal 97-105 [facility] Comment on above: Order Comment: Speci men Type: BLOOD SPECIMENOrdering Facility: [facility] Address: [address] [place] [address] Performed By: #### 2 4323-8 ####[facility] LABIA [id number] [place] [address] [place] CO2 [Moles/Vol] 34 mmol/L High 22-30 [facility] Comment on above: Order Comment: Speci men Type: BLOOD SPECIMENOrdering Facility: [facility] Address: [address] [place] [address] Performed By: #### 2 4323-8 ####[facility] LABIA [id number] [address] [place] Creatinine [Mass/Vol] 0.46 mg/dL Low 0.73-1.22 [facility] Comment on above: Order Comment: Speci men Type: BLOOD SPECIMENOrdering Facility: [facility] Address: [address] [place] [address] Performed By: #### 2 4323-8 ####[facility] LABIA [id number] [address] [place] [facility] Creatinine and Glomerular filtration rate.predicted panel (S/P/Bld) 136 mL/min/1.73m??? Normal >=60 [facility] Comment on above: Order Comment: Speci men Type: BLOOD SPECIMENOrdering Facility: [facility] Address: [address] [place] [address] Result Comment: Rae mated Glomerular Filtration Rate (eGFR) is calculated using the 2020 CKD-EPI creatinine equation. This equation utilizes serum creatinine, sex, and age as parameters. The creatinine assay has traceable calibration to isotope dilution-mass spectrometry. Refer to KDIGO guidelines for clinical interpretation. In patients with unstable renal function, e.g. those with acute kidney injury, the eGFR may not accurately reflect actual GFR. Performed By: #### 2 4323-8 ####[facility] LABCLIA [id number] [address] [address] [place] Glucose [Mass/Vol] 121 mg/dL High 74-99 [facility] Comment on above: Order Comment: Speci men Type: BLOOD SPECIMENOrdering Facility: [facility] Address: [address] [place] [address] Result Comment: The [place] [employer] (ADA) provides guidance for cutoff values for fasting glucose and random glucose. The ADA defines fasting as no caloric intake for at least 8 hours. Fasting plasma glucose results between 100 to 125 mg/dL indicate increased risk for diabetes (prediabetes).Fasting plasma glucose results greater than or equal to 126 mg/dL meet the criteria for diagnosis of diabetes. In the absence of unequivocal hyperglycemia, results should be confirmed by repeat testing. In a patient with classic symptoms of hyperglycemia or hyperglycemic crisis, random plasma glucose results greater than or equal to 200 mg/dL meet the criteria for diagnosis of diabetes.Reference: Standards of Medical Care in Diabetes 2016, [place] [employer]. Diabetes Care. 2016.39(Suppl 1). Performed By: #### 2 4323-8 ####[facility] LABCLIA [id number] [place] [address] [place] Potassium [Moles/Vol] 3.7 mmol/L Normal 3.7-5.1 [facility] Comment on above: Order Comment: Speci men Type: BLOOD SPECIMENOrdering Facility: [facility] Address: [address] [place] [address] Performed By: #### 2 4323-8 ####[facility] LABCLIA [id number] [place] [id number] [place] Protein [Mass/Vol] 6.0 g/dL Low 6.3-8.0 [facility] Comment on above: Order Comment: Speci men Type: BLOOD SPECIMENOrdering Facility: [facility] Address: [address] [place] [address] Performed By: #### 2 4323-8 ####[facility] LABCLIA [id number] [place] [address] [place] Sodium [Moles/Vol] 139 mmol/L Normal 136-144 [facility] Comment on above: Order Comment: Speci men Type: BLOOD SPECIMENOrdering Facility: [facility] Address: [address] [place] [address] Performed By: #### 2 4323-8 ####[facility] LABCLIA [id number] [place] [address] [place] Urea nitrogen [Mass/Vol] 6 mg/dL Low 9-24 [facility] Comment on above: Order Comment: Speci men Type: BLOOD SPECIMENOrdering Facility: [facility] Address: [address] [place] [address] Performed By: #### 2 4323-8 ####[facility] LABCLIA [id number] [place] [address] [place] TYPE + SCREENon 10-19-2023 ABO A Normal [facility] Comment on above: Order Comment: Speci men Type: BLOOD SPECIMENOrdering Facility: [facility] Address: [address] [place] [address] Performed By: #### T SCR ####[facility] BLOOD BANKCLIA [id number] [place] [address] [place] HISTORICAL AB SCR STATUS Negative Normal [facility] Comment on above: Order Comment: Speci men Type: BLOOD SPECIMENOrdering Facility: [facility] Address: [address] [place] [address] Performed By: #### T SCR ####[facility] B[facility] BANKCLIA [id number] [place] [address] [place] Rh Nom (Bld) Positive Normal [facility] Comment on above: Order Comment: Speci men Type: BLOOD SPECIMENOrdering Facility: [facility] Address: [address] [place] [address] Performed By: #### T SCR ####[facility] BLOOD BANKCLIA [id number] [place] [id number] [place] TYPE AND SCREEN EXPIRATION 10/21/2023 23:59 Normal [facility] Comment on above: Order Comment: Speci men Type: BLOOD SPECIMENOrdering Facility: [facility] Address: [address] [place] [address] Performed By: #### T SCR ####[facility] BLOOD BANKCLIA [id number] [place] [address] [place] aPTT PPPon 10-19-2023 aPTT Coag (PPP) [Time] 110.7 s High 23.0-32.4 [facility] Comment on above: Order Comment: Speci men Type: BLOOD SPECIMENOrdering Facility: [facility] Address: [address] [place] [address] Performed By: #### 1 4979-9 ####[facility] LABCLIA [id number] [address] [place] aPTT Coag (PPP) [Time] 60.6 s High 23.0-32.4 [facility] Comment on above: Order Comment: Speci men Type: BLOOD SPECIMENOrdering Facility: [facility] Address: [address] [place] [address] Performed By: #### 1 4979-9 ####[facility] LABCLIA [id number] [place] [address] [place] CBC panel Auto (Bld)on 10-18 Erythrocyte distribution width (RBC) [Ratio] 18.5 % High 11.5-15.0 [facility] Comment on above: Order Comment: Speci men Type: BLOOD SPECIMENOrdering Facility: [facility] Address: [address] [place] [address] Performed By: #### 5 8410-2 ####[facility] LABCLIA [id number] [place] [address] [place] Hematocrit (Bld) [Volume fraction] 33.6 % Low 39.0-51.0 [facility] Comment on above: Order Comment: Speci men Type: BLOOD SPECIMENOrdering Facility: [facility] Address: [address] [place] [address] Performed By: #### 5 8410-2 ####[facility] LABIA [id number] [place] [address] [place] Hemoglobin (Bld) [Mass/Vol] 10.1 g/dL Low 13.0-17.0 [facility] Comment on above: Order Comment: Speci men Type: BLOOD SPECIMENOrdering Facility: [facility] Address: [address] [place] [address] Performed By: #### 5 8410-2 ####[facility] LABIA [id number] [place] [address] [place] MCH (RBC) [Entitic mass] 25.3 pg Low 26.0-34.0 [facility] Comment on above: Order Comment: Speci men Type: BLOOD SPECIMENOrdering Facility: [facility] Address: [address] [place] [address] Performed By: #### 5 8410-2 ####[facility] LABIA [id number] [place] [address] [place] MCHC (RBC) [Mass/Vol] 30.1 g/dL Low 30.5-36.0 [facility] Comment on above: Order Comment: Speci men Type: BLOOD SPECIMENOrdering Facility: [facility] Address: [address] [place] [address] Performed By: #### 5 8410-2 ####[facility] LABIA [id number] [place] [address] [place] MCV (RBC) [Entitic vol] 84.2 fL Normal 80.0-100.0 [facility] Comment on above: Order Comment: Speci men Type: BLOOD SPECIMENOrdering Facility: [facility] Address: [address] [place] [address] Performed By: #### 5 8410-2 ####[facility] LABCLIA [id number] [place] [address] [place] Nucleated RBC (Bld) [#/Vol] 10*3/uL Normal <0.01 [facility] Comment on above: Order Comment: Speci men Type: BLOOD SPECIMENOrdering Facility: [facility] Address: [address] [place] [address] Performed By: #### 5 8410-2 ####[facility] LABCLIA [id number] [place] [address] [place] Platelet mean volume (Bld) [Entitic vol] 10.7 fL Normal 9.0-12.7 [facility] Comment on above: Order Comment: Speci men Type: BLOOD SPECIMENOrdering Facility: [facility] Address: [address] [place] [address] Performed By: #### 5 8410-2 ####[facility] LABCLIA [id number] [place] [address] [place] Platelets (Bld) [#/Vol] 460 10*3/uL High 150-400 [facility] Comment on above: Order Comment: Speci men Type: BLOOD SPECIMENOrdering Facility: [facility] Address: [address] [place] [address] Performed By: #### 5 8410-2 ####[facility] LABCLIA [id number] [place] [address] [place] RBC (Bld) [#/Vol] 3.99 10*6/uL Low 4.20-6.00 [facility] Comment on above: Order Comment: Speci men Type: BLOOD SPECIMENOrdering Facility: [facility] Address: [address] [place] [address] Performed By: #### 5 8410-2 ####[facility] LABCLIA [id number] [address] [address] [place] WBC (Bld) [#/Vol] 9.57 10*3/uL Normal 3.70-11.00 [facility] Comment on above: Order Comment: Speci men Type: BLOOD SPECIMENOrdering Facility: [facility] Address: [address] [place] [address] Performed By: #### 5 8410-2 ####[facility] LABIA [id number] [place] [address] [place] CONSULT PROGon 10-18-2023 CONSULT PROG Normal [facility] CONSULT PROG Normal [facility] CONSULT PROG Normal [facility] Comprehensive metabolic 2000 panelon 10-18-2023 Albumin [Mass/Vol] 2.5 g/dL Low 3.9-4.9 [facility] Comment on above: Order Comment: Speci men Type: BLOOD SPECIMENOrdering Facility: [facility] Address: [address] [place] [address] Performed By: #### 2 4323-8 ####[facility] LABIA [id number] [place] [address] [place] ALP [Catalytic activity/Vol] 480 U/L High 38-113 [facility] Comment on above: Order Comment: Speci men Type: BLOOD SPECIMENOrdering Facility: [facility] Address: [address] [place] [address] Performed By: #### 2 4323-8 ####[facility] LABIA [id number] [place] [id number] [place] ALT [Catalytic activity/Vol] 87 U/L High 10-54 [facility] Comment on above: Order Comment: Speci men Type: BLOOD SPECIMENOrdering Facility: [facility] Address: [address] [place] [address] Performed By: #### 2 4323-8 ####[facility] LABCLIA [id number] [place] [address] [place] Anion gap [Moles/Vol] 10 mmol/L Normal 9-18 [facility] Comment on above: Order Comment: Speci men Type: BLOOD SPECIMENOrdering Facility: [facility] Address: [address] [place] [address] Performed By: #### 2 4323-8 ####[facility] LABCLIA [id number] [place] [address] [place] AST [Catalytic activity/Vol] 28 U/L Normal 14-40 [facility] Comment on above: Order Comment: Speci men Type: BLOOD SPECIMENOrdering Facility: [facility] Address: [address] [place] [address] Performed By: #### 2 4323-8 ####[facility] LABCLIA [id number] [place] [address] [place] Bilirubin [Mass/Vol] 0.2 mg/dL Normal 0.2-1.3 [facility] Comment on above: Order Comment: Speci men Type: BLOOD SPECIMENOrdering Facility: [facility] Address: [address] [place] [address] Performed By: #### 2 4323-8 ####[facility] LABCLIA [id number] [place] [address] [place] Calcium [Mass/Vol] 9.5 mg/dL Normal 8.5-10.2 [facility] Comment on above: Order Comment: Speci men Type: BLOOD SPECIMENOrdering Facility: [facility] Address: [address] [place] [address] Performed By: #### 2 4323-8 ####[facility] LABCLIA [id number] [place] [address] [place] Chloride [Moles/Vol] 98 mmol/L Normal 97-105 [facility] Comment on above: Order Comment: Speci men Type: BLOOD SPECIMENOrdering Facility: [facility] Address: [address] [place] [address] Performed By: #### 2 4323-8 ####[facility] LABCLIA [id number] [place] [address] [place] CO2 [Moles/Vol] 30 mmol/L Normal 22-30 [facility] Comment on above: Order Comment: Speci men Type: BLOOD SPECIMENOrdering Facility: [facility] Address: [address] [place] [address] Performed By: #### 2 4323-8 ####[facility] LABIA [id number] [address] [place] Creatinine [Mass/Vol] 0.45 mg/dL Low 0.73-1.22 [facility] Comment on above: Order Comment: Speci men Type: BLOOD SPECIMENOrdering Facility: [facility] Address: [address] [place] [address] Performed By: #### 2 4323-8 ####[facility] LABIA [id number] [address] Creatinine and Glomerular filtration rate.predicted panel (S/P/Bld) 137 mL/min/1.73m??? Normal >=60 [facility] Comment on above: Order Comment: Speci men Type: BLOOD SPECIMENOrdering Facility: [facility] Address: [address] [place] [address] Result Comment: Rae mated Glomerular Filtration Rate (eGFR) is calculated using the 2020 CKD-EPI creatinine equation. This equation utilizes serum creatinine, sex, and age as parameters. The creatinine assay has traceable calibration to isotope dilution-mass spectrometry. Refer to KDIGO guidelines for clinical interpretation. In patients with unstable renal function, e.g. those with acute kidney injury, the eGFR may not accurately reflect actual GFR. Performed By: #### 2 4323-8 ####[facility] LABCLIA [id number] [place] [address] [place] Glucose [Mass/Vol] 133 mg/dL High 74-99 [facility] Comment on above: Order Comment: Speci men Type: BLOOD SPECIMENOrdering Facility: [facility] Address: [address] [place] [address] Result Comment: The [place] [employer] (ADA) provides guidance for cutoff values for fasting glucose and random glucose. The ADA defines fasting as no caloric intake for at least 8 hours. Fasting plasma glucose results between 100 to 125 mg/dL indicate increased risk for diabetes (prediabetes).Fasting plasma glucose results greater than or equal to 126 mg/dL meet the criteria for diagnosis of diabetes. In the absence of unequivocal hyperglycemia, results should be confirmed by repeat testing. In a patient with classic symptoms of hyperglycemia or hyperglycemic crisis, random plasma glucose results greater than or equal to 200 mg/dL meet the criteria for diagnosis of diabetes.Reference: Standards of Medical Care in Diabetes 2016, [place] [employer]. Diabetes Care. 2016.39(Suppl 1). Performed By: #### 2 4323-8 ####[facility] LABCLIA [id number] [place] [address] [place] Potassium [Moles/Vol] 3.8 mmol/L Normal 3.7-5.1 [facility] Comment on above: Order Comment: Speci men Type: BLOOD SPECIMENOrdering Facility: [facility] Address: [address] [place] [address] Performed By: #### 2 4323-8 ####[facility] LABCLIA [id number] [place] [address] [place] Protein [Mass/Vol] 5.6 g/dL Low 6.3-8.0 [facility] Comment on above: Order Comment: Speci men Type: BLOOD SPECIMENOrdering Facility: [facility] Address: [address] [place] [address] Performed By: #### 2 4323-8 ####[facility] LABCLIA [id number] [place] [address] [place] Sodium [Moles/Vol] 138 mmol/L Normal 136-144 [facility] Comment on above: Order Comment: Speci men Type: BLOOD SPECIMENOrdering Facility: [facility] Address: [address] [place] [address] Performed By: #### 2 4323-8 ####[facility] LABCLIA [id number] [place] [address] [place] Urea nitrogen [Mass/Vol] 6 mg/dL Low 9-24 [facility] Comment on above: Order Comment: Speci men Type: BLOOD SPECIMENOrdering Facility: [facility] Address: [address] [place] [address] Performed By: #### 2 4323-8 ####[facility] [facility] [id number] [place] [address] [place] XR CHEST 1V FRONTAL PORTon 0 10-18-2023 XR CHEST 1V FRONTAL PORT Normal [facility] aPTT PPPon 10-18-2023 aPTT Coag (PPP) [Time] 63.3 s High 23.0-32.4 [facility] Comment on above: Order Comment: Speci men Type: BLOOD SPECIMENOrdering Facility: [facility] Address: [address] [place] [address] Performed By: #### 1 4979-9 ####[facility] [id number] [place] [address] [place] aPTT Coag (PPP) [Time] 73.9 s High 23.0-32.4 [facility] Comment on above: Order Comment: Speci men Type: BLOOD SPECIMENOrdering Facility: [facility] Address: [address] [place] [address] Performed By: #### 1 4979-9 ####[facility] [id number] [place] [address] [place] Bacteria Fld Culton 10-17-19 24 Bacteria identified Cx Nom (Body fld) CULTURE, BODY FLD: No growth GRAM STAIN: No organisms seen Moderate Polymorphonuclear leukocytes Gram stain from primary specimen Normal [facility] Comment on above: Performed By: #### 6 11-4, 31184-9 ####[facility] [id number] [place] [address] [place] CASE MANAGEMon 10-17-2023 CASE MANAGEM Normal [facility] CBC panel Auto (Bld)on 10-17 Erythrocyte distribution width (RBC) [Ratio] 18.5 % High 11.5-15.0 [facility] Comment on above: Order Comment: Speci men Type: BLOOD SPECIMENOrdering Facility: [facility] Address: [address] [place] [address] Performed By: #### 5 8410-2 ####[facility] [id number] [place] [address] [place] Hematocrit (Bld) [Volume fraction] 33.1 % Low 39.0-51.0 [facility] Comment on above: Order Comment: Speci men Type: BLOOD SPECIMENOrdering Facility: [facility] Address: [address] [place] [address] Performed By: #### 5 8410-2 ####[facility] [id number] [place] [address] [place] Hemoglobin (Bld) [Mass/Vol] 9.8 g/dL Low 13.0-17.0 [facility] Comment on above: Order Comment: Speci men Type: BLOOD SPECIMENOrdering Facility: [facility] Address: [address] [place] [address] Performed By: #### 5 8410-2 ####[facility] [id number] [place] [address] [place] MCH (RBC) [Entitic mass] 24.9 pg Low 26.0-34.0 [facility] Comment on above: Order Comment: Speci men Type: BLOOD SPECIMENOrdering Facility: [facility] Address: [address] [place] [address] Performed By: #### 5 8410-2 ####[facility] [id number] [place] [address] [place] MCHC (RBC) [Mass/Vol] 29.6 g/dL Low 30.5-36.0 [facility] Comment on above: Order Comment: Speci men Type: BLOOD SPECIMENOrdering Facility: [facility] Address: [address] [place] [address] Performed By: #### 5 8410-2 ####[facility] [id number] [place] [address] [place] MCV (RBC) [Entitic vol] 84.2 fL Normal 80.0-100.0 [facility] Comment on above: Order Comment: Speci men Type: BLOOD SPECIMENOrdering Facility: [facility] Address: [address] [place] [address] Performed By: #### 5 8410-2 ####[facility] [id number] [place] [address] [place] Nucleated RBC (Bld) [#/Vol] 10*3/uL Normal <0.01 [facility] Comment on above: Order Comment: Speci men Type: BLOOD SPECIMENOrdering Facility: [facility] Address: [address] [place] [address] Performed By: #### 5 8410-2 ####[facility] [id number] [place] [address] [place] Platelet mean volume (Bld) [Entitic vol] 11.0 fL Normal 9.0-12.7 [facility] Comment on above: Order Comment: Speci men Type: BLOOD SPECIMENOrdering Facility: [facility] Address: [address] [place] [address] Performed By: #### 5 8410-2 ####[facility] [id number] [address] [address] [place] Platelets (Bld) [#/Vol] 476 10*3/uL High 150-400 [facility] Comment on above: Order Comment: Speci men Type: BLOOD SPECIMENOrdering Facility: [facility] Address: [address] [place] [address] Performed By: #### 5 8410-2 ####[facility] [id number] [place] [address] [place] RBC (Bld) [#/Vol] 3.93 10*6/uL Low 4.20-6.00 [facility] Comment on above: Order Comment: Speci men Type: BLOOD SPECIMENOrdering Facility: [facility] Address: [address] [place] [address] Performed By: #### 5 8410-2 ####[facility] [id number] [place] [address] [place] WBC (Bld) [#/Vol] 10.02 10*3/uL Normal 3.70-11.00 [facility] Comment on above: Order Comment: Speci men Type: BLOOD SPECIMENOrdering Facility: [facility] Address: [address] [place] [address] Performed By: #### 5 8410-2 ####[facility] [id number] [place] [id number] [place] CONSULT PROGon 10-17-2023 CONSULT PROG Normal [facility] CONSULT PROG Normal [facility] Comprehensive metabolic 2000 panelon 10-17-2023 Albumin [Mass/Vol] 2.6 g/dL Low 3.9-4.9 [facility] Comment on above: Order Comment: Speci men Type: BLOOD SPECIMENOrdering Facility: [facility] Address: [address] [place] [address] Performed By: #### 2 4323-8 ####[facility] [id number] [place] [address] [place] ALP [Catalytic activity/Vol] 628 U/L High 38-113 [facility] Comment on above: Order Comment: Speci men Type: BLOOD SPECIMENOrdering Facility: [facility] Address: [address] [place] [address] Performed By: #### 2 4323-8 ####[facility] [id number] [place] [address] [place] ALT [Catalytic activity/Vol] 131 U/L High 10-54 [facility] Comment on above: Order Comment: Speci men Type: BLOOD SPECIMENOrdering Facility: [facility] Address: [address] [place] [address] Performed By: #### 2 4323-8 ####[facility] [id number] [place] [address] [place] Anion gap [Moles/Vol] 9 mmol/L Normal 9-18 [facility] Comment on above: Order Comment: Speci men Type: BLOOD SPECIMENOrdering Facility: [facility] Address: [address] [place] [address] Performed By: #### 2 4323-8 ####[facility] [id number] [place] [address] [place] AST [Catalytic activity/Vol] 40 U/L Normal 14-40 [facility] Comment on above: Order Comment: Speci men Type: BLOOD SPECIMENOrdering Facility: [facility] Address: [address] [place], [place] [address] Performed By: #### 2 4323-8 ####[facility] [id number] [place] [id number] [place] Bilirubin [Mass/Vol] 0.2 mg/dL Normal 0.2-1.3 [facility] Comment on above: Order Comment: Speci men Type: BLOOD SPECIMENOrdering Facility: [facility] Address: [address] [place] [place] [id number] Performed By: #### 2 4323-8 ####[facility] [id number] [place] [address] [place] Calcium [Mass/Vol] 9.1 mg/dL Normal 8.5-10.2 [facility] Comment on above: Order Comment: Speci men Type: BLOOD SPECIMENOrdering Facility: [facility] Address: [address] [place], [place] [address] Performed By: #### 2 4323-8 ####[facility] [id number] [place] [address] [place] Chloride [Moles/Vol] 98 mmol/L Normal 97-105 [facility] Comment on above: Order Comment: Speci men Type: BLOOD SPECIMENOrdering Facility: [facility] Address: [address] [place] [address] Performed By: #### 2 4323-8 ####[facility] [id number] [place] [address] [place] CO2 [Moles/Vol] 30 mmol/L Normal 22-30 [facility] Comment on above: Order Comment: Speci men Type: BLOOD SPECIMENOrdering Facility: [facility] Address: [address] [place], [place] [address] Performed By: #### 2 4323-8 ####[facility] [id number] [place] [id number] [place] Creatinine [Mass/Vol] 0.41 mg/dL Low 0.73-1.22 [facility] Comment on above: Order Comment: Speci men Type: BLOOD SPECIMENOrdering Facility: [facility] Address: [address] [place], [place] [address] Performed By: #### 2 4323-8 ####[facility] [id number] [place] [address] [place] Creatinine and Glomerular filtration rate.predicted panel (S/P/Bld) 141 mL/min/1.73m??? Normal >=60 [facility] Comment on above: Order Comment: Darwin schwarz Type: BLOOD SPECIMENOrdering Facility: [facility] Address: [address] [place] [address] Result Comment: Rae mated Glomerular Filtration Rate (eGFR) is calculated using the 2020 CKD-EPI creatinine equation. This equation utilizes serum creatinine, sex, and age as parameters. The creatinine assay has traceable calibration to isotope dilution-mass spectrometry. Refer to KDIGO guidelines for clinical interpretation. In patients with unstable renal function, e.g. those with acute kidney injury, the eGFR may not accurately reflect actual GFR. Performed By: #### 2 4323-8 ####[facility] [id number] [place] [address] [place] Glucose [Mass/Vol] 133 mg/dL High 74-99 [facility] Comment on above: Order Comment: Darwin schwarz Type: BLOOD SPECIMENOrdering Facility: [facility] Address: [address] [place] [address] Result Comment: The [place] [employer] (ADA) provides guidance for cutoff values for fasting glucose and random glucose. The ADA defines fasting as no caloric intake for at least 8 hours. Fasting plasma glucose results between 100 to 125 mg/dL indicate increased risk for diabetes (prediabetes).Fasting plasma glucose results greater than or equal to 126 mg/dL meet the criteria for diagnosis of diabetes. In the absence of unequivocal hyperglycemia, results should be confirmed by repeat testing. In a patient with classic symptoms of hyperglycemia or hyperglycemic crisis, random plasma glucose results greater than or equal to 200 mg/dL meet the criteria for diagnosis of diabetes.Reference: Standards of Medical Care in Diabetes 2016, [place] [employer]. Diabetes Care. 2016.39(Suppl 1). Performed By: #### 2 4323-8 ####[facility] [id number] [place] [address] [place] Potassium [Moles/Vol] 3.6 mmol/L Low 3.7-5.1 [facility] Comment on above: Order Comment: Speci men Type: BLOOD SPECIMENOrdering Facility: [facility] Address: [address] [place] [address] Performed By: #### 2 4323-8 ####[facility] [id number] [place] [address] [place] Protein [Mass/Vol] 5.5 g/dL Low 6.3-8.0 [facility] Comment on above: Order Comment: Speci men Type: BLOOD SPECIMENOrdering Facility: [facility] Address: [address] [place] [address] Performed By: #### 2 4323-8 ####[facility] [id number] [place] [address] [place] Sodium [Moles/Vol] 137 mmol/L Normal 136-144 [facility] Comment on above: Order Comment: Speci men Type: BLOOD SPECIMENOrdering Facility: [facility] Address: [address] [place] [address] Performed By: #### 2 4323-8 ####[facility] [id number] [place] [address] [place] Urea nitrogen [Mass/Vol] 6 mg/dL Low 9-24 [facility] Comment on above: Order Comment: Speci men Type: BLOOD SPECIMENOrdering Facility: [facility] Address: [address] [place] [address] Performed By: #### 2 4323-8 ####[facility] [id number] [place] [address] [place] Microorganism Spec Culton Microorganism identified Cx Nom (Unsp spec) CULTURE, FUNGAL: No Fungus isolated after 28 days FUNGAL SMEAR: No fungus seen Normal [facility] Comment on above: Performed By: #### 6 11-4, 15268-4 ####[facility] [id number] [place] [address] [place] PTT, ANTICOAGULANT THERAPYon 10-17-2023 aPTT Coag (PPP) [Time] 32.6 s High 23.0-32.4 [facility] Comment on above: Order Comment: Speci men Type: BLOOD SPECIMENOrdering Facility: [facility] Address: [address] [place] [address] Performed By: #### P TTAC ####[facility] [id number] [place] [address] [place] SYNOVIAL FL,CRYSTAL ID/STAFF REVon 10-17-2023 CRYSTAL PRELIM, SF PRELIMINARY REPORT N o diagnostic crystals seen. SEE FINAL SF PATH REVIEW Normal [facility] Comment on above: Order Comment: Speci men Type: BODY FLUID SPECIMENOrdering Facility: [facility] Address: [address] [place] [address] Performed By: #### R JORGE ALBERTO HAGEN, [id number] ####[facility] [id number] [place] [address] [place] CRYSTAL REVIEW Reviewed by Oscar Mccarthy MD Normal [facility] Comment on above: Order Comment: Speci men Type: BODY FLUID SPECIMENOrdering Facility: [facility] Address: [address] [place] [address] Performed By: #### R JORGE ALBERTO HAGEN, [id number] ####[facility] [id number] [place] [address] [place] Crystals LM Nom (Syn fld) None seen Normal None seen [facility] Comment on above: Order Comment: Speci men Type: BODY FLUID SPECIMENOrdering Facility: [facility] Address: [address] [place] [address] Performed By: #### R JORGE ALBERTO HAGEN, [id number] ####[facility] [id number] [place] [address] [place] SYNOVIAL FLUID MANUAL DIFFon 10-17-2023 DIF TTL, SYNOVIAL FLUID 100 cells counted Normal [facility] Comment on above: Order Comment: Speci men Type: BODY FLUID SPECIMENOrdering Facility: [facility] Address: [address] [place] [address] Performed By: #### R CHIN HAGENCRID, [id number] ####[facility] [id number] [place] [address] [place] EOSIN %, SF 1 Normal [facility] Comment on above: Order Comment: Speci men Type: BODY FLUID SPECIMENOrdering Facility: [facility] Address: [address] [place] [address] Performed By: #### R CHIN HAGENCRID, [id number] ####[facility] [id number] [place] [address] [place] LYMPH%, SF 16 Normal [facility] Comment on above: Order Comment: Speci men Type: BODY FLUID SPECIMENOrdering Facility: [facility] Address: [address] [place] [address] Performed By: #### R CHIN HAGENCRID, [id number] ####[facility] [id number] [place] [address] [place] MONO%, SF 17 Normal [facility] Comment on above: Order Comment: Speci men Type: BODY FLUID SPECIMENOrdering Facility: [facility] Address: [address] [place] [address] Performed By: #### CHIN CLAIRECRID, [id number] ####[facility] [id number] [place] [address] [place] NEUT% 63 High 0-<25 [facility] Comment on above: Order Comment: Speci men Type: BODY FLUID SPECIMENOrdering Facility: [facility] Address: [address] [place] [address] Performed By: #### JORGE ALBERTO CLAIRE, [id number] ####[facility] [id number] [place] [address] [place] SYNOVIAL C1% 3 Normal [facility] Comment on above: Order Comment: Speci men Type: BODY FLUID SPECIMENOrdering Facility: [facility] Address: [address] [place] [address] Performed By: #### R JORGE ALBERTO HAGEN, [id number] ####[facility] [id number] [place] [address] [place] SYNOVIAL FLUID, ROUTINEon Clarity (Unsp spec) Clear Normal Clear [facility] Comment on above: Order Comment: Speci men Type: BODY FLUID SPECIMENOrdering Facility: [facility] Address: [address] [place] [address] Performed By: #### JORGE ALBERTO CLAIRE, [id number] ####[facility] [id number] [place] [address] [place] Color (Syn fld) Yellow Normal Yellow [facility] Comment on above: Order Comment: Speci men Type: BODY FLUID SPECIMENOrdering Facility: [facility] Address: [address] [place] [address] Performed By: #### JORGE ALBERTO CLAIRE, [id number] ####[facility] [id number] [place] [address] [place] RBC Manual cnt (Syn fld) [#/Vol] <2000 Normal <2000 [facility] Comment on above: Order Comment: Speci men Type: BODY FLUID SPECIMENOrdering Facility: [facility] Address: [address] [place] [address] Performed By: #### JORGE ALBERTO CLAIRE, [id number] ####[facility] [id number] [address] [place] Specimen source Nom (Unsp spec) HIP LEFT Normal [facility] Comment on above: Order Comment: Speci men Type: BODY FLUID SPECIMENOrdering Facility: [facility] Address: [address] [place] [address] Performed By: #### R TSCHRISTIANF, DEEPD, [id number] ####[facility] [id number] [place] [address] [place] WBC Manual cnt (Syn fld) [#/Vol] 1661 /uL High 0-200 [facility] Comment on above: Order Comment: Speci men Type: BODY FLUID SPECIMENOrdering Facility: [facility] Address: [address] [place] [address] Performed By: #### R YULIANAF, DEEPD, [id number] ####[facility] [id number] [place] [address] [place] XR HIP/ILIOPSOAS ASPIRATION LTon 10-17-2023 XR HIP/ILIOPSOAS ASPIRATION LT Normal [facility] aPTT PPPon 10-17-2023 aPTT Coag (PPP) [Time] 53.5 s High 23.0-32.4 [facility] Comment on above: Order Comment: Speci men Type: BLOOD SPECIMENOrdering Facility: [facility] Address: [address] [place] [address] Performed By: #### 1 4979-9 ####[facility] [id number] [address] [place] aPTT Coag (PPP) [Time] 40.4 s High 23.0-32.4 [facility] Comment on above: Order Comment: Speci men Type: BLOOD SPECIMENOrdering Facility: [facility] Address: [address] [place] [address] Performed By: #### 1 4979-9 ####[facility] [id number] [place] [address] [place] CBC W Auto Differential pane l (Bld)on 10-16-2023 Basophils (Bld) [#/Vol] 0.07 10*3/uL Normal <0.11 [facility] Comment on above: Order Comment: Speci men Type: BLOOD SPECIMENOrdering Facility: [facility] Address: [address] [place] [address] Performed By: #### 4 537-7, 55454-6 ####[facility] [id number] [place] [address] [place] Basophils/100 WBC (Bld) 0.8 % Normal [facility] Comment on above: Order Comment: Speci men Type: BLOOD SPECIMENOrdering Facility: [facility] Address: [address] [place] [address] Performed By: #### 4 537-7, 44560-7 ####[facility] [id number] [place] [address] [place] Differential cell count method Nom (Bld) Auto Normal [facility] Comment on above: Order Comment: Speci men Type: BLOOD SPECIMENOrdering Facility: [facility] Address: [address] [place] [address] Performed By: #### 4 537-7, 86572-4 ####[facility] [id number] [place] [address] [place] Eosinophils (Bld) [#/Vol] 0.26 10*3/uL Normal <0.46 [facility] Comment on above: Order Comment: Speci men Type: BLOOD SPECIMENOrdering Facility: [facility] Address: [address] [place] [address] Performed By: #### 4 537-7, 74838-7 ####[facility] [id number] [place] [address] [place] Eosinophils/100 WBC (Bld) 3.0 % Normal [facility] Comment on above: Order Comment: Speci men Type: BLOOD SPECIMENOrdering Facility: [facility] Address: [address] [place] [address] Performed By: #### 4 537-7, 21353-3 ####[facility] [id number] [place] [address] [place] Erythrocyte distribution width (RBC) [Ratio] 18.2 % High 11.5-15.0 [facility] Comment on above: Order Comment: Speci men Type: BLOOD SPECIMENOrdering Facility: [facility] Address: [address] [place] [address] Performed By: #### 4 537-7, 05536-8 ####[facility] [id number] [place] [address] [place] [place] Hematocrit (Bld) [Volume fraction] 32.3 % Low 39.0-51.0 [facility] Comment on above: Order Comment: Speci men Type: BLOOD SPECIMENOrdering Facility: [facility] Address: [address] [place] [address] Performed By: #### 4 537-7, 48465-4 ####[facility] LABIA [id number] [place] [address] [place] Hemoglobin (Bld) [Mass/Vol] 9.6 g/dL Low 13.0-17.0 [facility] Comment on above: Order Comment: Speci men Type: BLOOD SPECIMENOrdering Facility: [facility] Address: [address] [place] [address] Performed By: #### 4 537-7, 64418-3 ####[facility] LABIA [id number] [place] [address] [place] Immature granulocytes (Bld) [#/Vol] 0.07 10*3/uL Normal <0.10 [facility] Comment on above: Order Comment: Speci men Type: BLOOD SPECIMENOrdering Facility: [facility] Address: [address] [place] [address] Performed By: #### 4 537-7, 14418-1 ####[facility] LABIA [id number] [place] [address] [place] Immature granulocytes/100 WBC (Bld) 0.8 % Normal [facility] Comment on above: Order Comment: Speci men Type: BLOOD SPECIMENOrdering Facility: [facility] Address: [address] [place] [address] Performed By: #### 4 537-7, 17168-6 ####[facility] LABIA [id number] [place] [address] [place] Lymphocytes (Bld) [#/Vol] 2.35 10*3/uL Normal 1.00-4.00 [facility] Comment on above: Order Comment: Speci men Type: BLOOD SPECIMENOrdering Facility: [facility] Address: [address] [place] [address] Performed By: #### 4 537-7, 08507-8 ####[facility] LABIA [id number] [place] [address] [place] Lymphocytes/100 WBC (Bld) 27.5 % Normal [facility] Comment on above: Order Comment: Speci men Type: BLOOD SPECIMENOrdering Facility: [facility] Address: [address] [place] [address] Performed By: #### 4 537-7, 06333-6 ####[facility] LABIA [id number] [place] [address] [place] MCH (RBC) [Entitic mass] 24.9 pg Low 26.0-34.0 [facility] Comment on above: Order Comment: Speci men Type: BLOOD SPECIMENOrdering Facility: [facility] Address: [address] [place] [address] Performed By: #### 4 537-7, 30983-6 ####[facility] LABCLIA [id number] [place] [address] [place] MCHC (RBC) [Mass/Vol] 29.7 g/dL Low 30.5-36.0 [facility] Comment on above: Order Comment: Speci men Type: BLOOD SPECIMENOrdering Facility: [facility] Address: [address] [place] [address] Performed By: #### 4 537-7, 60938-3 ####[facility] LABIA [id number] [place] [address] [place] MCV (RBC) [Entitic vol] 83.9 fL Normal 80.0-100.0 [facility] Comment on above: Order Comment: Speci men Type: BLOOD SPECIMENOrdering Facility: [facility] Address: [address] [place] [address] Performed By: #### 4 537-7, 04215-1 ####[facility] LABIA [id number] [place] [address] [place] Monocytes (Bld) [#/Vol] 0.48 10*3/uL Normal <0.87 [facility] Comment on above: Order Comment: Speci men Type: BLOOD SPECIMENOrdering Facility: [facility] Address: [address] [place] [address] Performed By: #### 4 537-7, 18643-3 ####[facility] LABIA [id number] [place] [address] [place] Monocytes/100 WBC (Bld) 5.6 % Normal [facility] Comment on above: Order Comment: Speci men Type: BLOOD SPECIMENOrdering Facility: [facility] Address: [address] [place] [address] Performed By: #### 4 537-7, 19164-4 ####[facility] LABIA [id number] [place] [address] [place] Neutrophils (Bld) [#/Vol] 5.31 10*3/uL Normal 1.45-7.50 [facility] Comment on above: Order Comment: Speci men Type: BLOOD SPECIMENOrdering Facility: [facility] Address: [address] [place] [address] Performed By: #### 4 537-7, 73020-9 ####[facility] LABCLIA [id number] [place] [address] [place] Neutrophils/100 WBC (Bld) 62.3 % Normal [facility] Comment on above: Order Comment: Speci men Type: BLOOD SPECIMENOrdering Facility: [facility] Address: [address] [place] [address] Performed By: #### 4 537-7, 44673-8 ####[facility] LABCLIA [id number] [place] [address] [place] Nucleated RBC (Bld) [#/Vol] 10*3/uL Normal <0.01 [facility] Comment on above: Order Comment: Speci men Type: BLOOD SPECIMENOrdering Facility: [facility] Address: [address] [place] [address] Performed By: #### 4 537-7, 07410-9 ####[facility] LABIA [id number] [place] [address] [place] Nucleated RBC/100 WBC (Bld) [Ratio] 0.0 /100 WBC Normal [facility] Comment on above: Order Comment: Speci men Type: BLOOD SPECIMENOrdering Facility: [facility] Address: [address] [place] [address] Performed By: #### 4 537-7, 42375-3 ####[facility] LABCLIA [id number] [place] [address] [place] Platelet mean volume (Bld) [Entitic vol] 10.1 fL Normal 9.0-12.7 [facility] Comment on above: Order Comment: Speci men Type: BLOOD SPECIMENOrdering Facility: [facility] Address: [address] [place] [address] Performed By: #### 4 537-7, 21597-2 ####[facility] LABCLIA [id number] [place] [address] [place] Platelets (Bld) [#/Vol] 438 10*3/uL High 150-400 [facility] Comment on above: Order Comment: Speci men Type: BLOOD SPECIMENOrdering Facility: [facility] Address: [address] [place] [address] Performed By: #### 4 537-7, 88246-8 ####[facility] LABCLIA [id number] [place] [address] [place] RBC (Bld) [#/Vol] 3.85 10*6/uL Low 4.20-6.00 [facility] Comment on above: Order Comment: Speci men Type: BLOOD SPECIMENOrdering Facility: [facility] Address: [address] [place] [address] Performed By: #### 4 537-7, 28071-9 ####[facility] LABCLIA [id number] [place] [address] [place] WBC (Bld) [#/Vol] 8.54 10*3/uL Normal 3.70-11.00 [facility] Comment on above: Order Comment: Speci men Type: BLOOD SPECIMENOrdering Facility: [facility] Address: [address] [place] [address] Performed By: #### 4 537-7, 76799-6 ####[facility] LABCLIA [id number] [place] [id number] [place] CONSULTon 10-16-2023 CONSULT Normal [facility] CONSULT PROGon 10-16-2023 CONSULT PROG Normal [facility] CRP SerPl-mCncon 10-16-2023 CRP [Mass/Vol] 6.7 mg/dL High <0.9 [facility] Comment on above: Order Comment: Speci men Type: BLOOD SPECIMENOrdering Facility: [facility] Address: [address] [place] [address] Performed By: #### 1 988-5 ####[facility] LABCLIA [id number] [place] [address] [place] CRP [Mass/Vol] 6.7 mg/dL High <0.9 [facility] Comment on above: Order Comment: Speci men Type: BLOOD SPECIMENOrdering Facility: [facility] Address: [address] [place] [address] Performed By: #### 1 988-5, 07207-3 ####[facility] LABCLIA [id number] [place] [address] [place] Comprehensive metabolic 2000 panelon 10-16-2023 Albumin [Mass/Vol] 2.8 g/dL Low 3.9-4.9 [facility] Comment on above: Order Comment: Speci men Type: BLOOD SPECIMENOrdering Facility: [facility] Address: [address] [place] [address] Performed By: #### 1 988-5, 22731-4 ####[facility] LABCLIA [id number] [place] [address] [place] ALP [Catalytic activity/Vol] 772 U/L High 38-113 [facility] Comment on above: Order Comment: Speci men Type: BLOOD SPECIMENOrdering Facility: [facility] Address: [address] [place] [address] Performed By: #### 1 988-5, 12158-9 ####[facility] LABCLIA [id number] [place] [id number] [place] ALT [Catalytic activity/Vol] 187 U/L High 10-54 [facility] Comment on above: Order Comment: Speci men Type: BLOOD SPECIMENOrdering Facility: [facility] Address: [address] [place] [address] Performed By: #### 1 988-5, 45044-4 ####[facility] LABCLIA [id number] [place] [id number] [place] Anion gap [Moles/Vol] 8 mmol/L Low 9-18 [facility] Comment on above: Order Comment: Speci men Type: BLOOD SPECIMENOrdering Facility: [facility] Address: [address] [place] [address] Performed By: #### 1 988-5, 88257-8 ####[facility] LABCLIA [id number] [place] [address] [place] AST [Catalytic activity/Vol] 53 U/L High 14-40 [facility] Comment on above: Order Comment: Speci men Type: BLOOD SPECIMENOrdering Facility: [facility] Address: [address] [place] [address] Performed By: #### 1 988-5, 02924-1 ####[facility] LABCLIA [id number] [place] [address] [place] Bilirubin [Mass/Vol] 0.2 mg/dL Normal 0.2-1.3 [facility] Comment on above: Order Comment: Speci men Type: BLOOD SPECIMENOrdering Facility: [facility] Address: [address] [place] [address] Performed By: #### 1 988-5, 58272-4 ####[facility] LABCLIA [id number] [place] [address] [place] Calcium [Mass/Vol] 9.5 mg/dL Normal 8.5-10.2 [facility] Comment on above: Order Comment: Speci men Type: BLOOD SPECIMENOrdering Facility: [facility] Address: [address] [place] [address] Performed By: #### 1 988-5, 08424-8 ####[facility] LABCLIA [id number] [place] [id number] [place] Chloride [Moles/Vol] 100 mmol/L Normal 97-105 [facility] Comment on above: Order Comment: Speci men Type: BLOOD SPECIMENOrdering Facility: [facility] Address: [address] [place] [address] Performed By: #### 1 988-5, 19893-7 ####[facility] LABCLIA [id number] [place] [address] [place] CO2 [Moles/Vol] 31 mmol/L High 22-30 [facility] Comment on above: Order Comment: Speci men Type: BLOOD SPECIMENOrdering Facility: [facility] Address: [address] [place] [address] Performed By: #### 1 988-5, 08720-2 ####[facility] LABCLIA [id number] [place] [address] [place] Creatinine [Mass/Vol] 0.42 mg/dL Low 0.73-1.22 [facility] Comment on above: Order Comment: Speci men Type: BLOOD SPECIMENOrdering Facility: [facility] Address: [address] [place] [address] Performed By: #### 1 988-5, 07104-9 ####[facility] LABIA [id number] [place] [address] [place] Creatinine and Glomerular filtration rate.predicted panel (S/P/Bld) 140 mL/min/1.73m??? Normal >=60 [facility] Comment on above: Order Comment: Speci men Type: BLOOD SPECIMENOrdering Facility: [facility] Address: [address] [place] [address] Result Comment: Rae mated Glomerular Filtration Rate (eGFR) is calculated using the 2020 CKD-EPI creatinine equation. This equation utilizes serum creatinine, sex, and age as parameters. The creatinine assay has traceable calibration to isotope dilution-mass spectrometry. Refer to KDIGO guidelines for clinical interpretation. In patients with unstable renal function, e.g. those with acute kidney injury, the eGFR may not accurately reflect actual GFR. Performed By: #### 1 988-5, 67000-3 ####[facility] LABCLIA [id number] [place] [address] [place] Glucose [Mass/Vol] 116 mg/dL High 74-99 [facility] Comment on above: Order Comment: Darwin schwarz Type: BLOOD SPECIMENOrdering Facility: [facility] Address: [address] [place] [address] Result Comment: The [place] [employer] (ADA) provides guidance for cutoff values for fasting glucose and random glucose. The ADA defines fasting as no caloric intake for at least 8 hours. Fasting plasma glucose results between 100 to 125 mg/dL indicate increased risk for diabetes (prediabetes).Fasting plasma glucose results greater than or equal to 126 mg/dL meet the criteria for diagnosis of diabetes. In the absence of unequivocal hyperglycemia, results should be confirmed by repeat testing. In a patient with classic symptoms of hyperglycemia or hyperglycemic crisis, random plasma glucose results greater than or equal to 200 mg/dL meet the criteria for diagnosis of diabetes.Reference: Standards of Medical Care in Diabetes 2016, [place] [employer]. Diabetes Care. 2016.39(Suppl 1). Performed By: #### 1 988-5, 22239-8 ####[facility] LABCLIA [id number] [place] [id number] [place] Potassium [Moles/Vol] 4.3 mmol/L Normal 3.7-5.1 [facility] Comment on above: Order Comment: Darwin schwarz Type: BLOOD SPECIMENOrdering Facility: [facility] Address: [address] [place] [address] Performed By: #### 1 988-5, 53223-8 ####[facility] LABCLIA [id number] [place] [id number] [place] Protein [Mass/Vol] 6.0 g/dL Low 6.3-8.0 [facility] Comment on above: Order Comment: Speci men Type: BLOOD SPECIMENOrdering Facility: [facility] Address: [address] [place] [address] Performed By: #### 1 988-5, 32174-5 ####[facility] LABCLIA [id number] [place] [address] [place] Sodium [Moles/Vol] 139 mmol/L Normal 136-144 [facility] Comment on above: Order Comment: Speci men Type: BLOOD SPECIMENOrdering Facility: [facility] Address: [address] [place] [address] Performed By: #### 1 988-5, 16485-5 ####[facility] LABCLIA [id number] [place] [address] [place] Urea nitrogen [Mass/Vol] 7 mg/dL Low 9-24 [facility] Comment on above: Order Comment: Speci men Type: BLOOD SPECIMENOrdering Facility: [facility] Address: [address] [place] [address] Performed By: #### 1 988-5, 46959-3 ####[facility] LABCLIA [id number] [place] [address] [place] ESR Westergren method (Bld) [Velocity]on 10-16-2023 ESR (Bld) [Velocity] 46 mm/h High 0-15 [facility] Comment on above: Order Comment: Speci men Type: BLOOD SPECIMENOrdering Facility: [facility] Address: [address] [place] [address] Performed By: #### 4 537-7 ####[facility] LABCLIA [id number] [place] [address] [place] ESR (Bld) [Velocity] 52 mm/h High 0-15 [facility] Comment on above: Order Comment: Speci men Type: BLOOD SPECIMENOrdering Facility: [facility] Address: [address] [place] [address] Performed By: #### 4 537-7, 09564-9 ####[facility] LABCLIA [id number] [place] [address] [place] NM HEPATOBILIARY WO RXon NM HEPATOBILIARY WO RX Normal [facility] NUTRITIONon 10-16-2023 NUTRITION Normal [facility] PTT, ANTICOAGULANT THERAPYon 10-16-2023 aPTT Coag (PPP) [Time] 83.7 s High 23.0-32.4 [facility] Comment on above: Order Comment: Speci men Type: BLOOD SPECIMENOrdering Facility: [facility] Address: [address] [place] [address] Performed By: #### 1 4979-9, PTTAC ####[facility] LABCLIA [id number] [place] [address] [place] aPTT Coag (PPP) [Time] 88.3 s High 23.0-32.4 [facility] Comment on above: Order Comment: Speci men Type: BLOOD SPECIMENOrdering Facility: [facility] Address: [address] [place] [address] Performed By: #### 1 4979-9, PTTAC ####[facility] LABCLIA [id number] [place] [address] [place] TYPE + SCREENon 10-16-2023 ABO A Normal [facility] Comment on above: Order Comment: Speci men Type: BLOOD SPECIMENOrdering Facility: [facility] Address: [address] [place] [address] Performed By: #### T SCR ####[facility] BLOOD BANKCLIA [id number] [place] [address] [place] HISTORICAL AB SCR STATUS Negative Normal [facility] Comment on above: Order Comment: Speci men Type: BLOOD SPECIMENOrdering Facility: [facility] Address: [address] [place] [address] Performed By: #### T SCR ####[facility] BANKCLIA [id number] [place] [address] [place] Rh Nom (Bld) Positive Normal [facility] Comment on above: Order Comment: Speci men Type: BLOOD SPECIMENOrdering Facility: [facility] Address: [address] [place] [address] Performed By: #### T SCR ####[facility] BLO[facility] BANKCLIA [id number] [place] [address] [place] TYPE AND SCREEN EXPIRATION 10/18/2023 23:59 Normal [facility] Comment on above: Order Comment: Speci men Type: BLOOD SPECIMENOrdering Facility: [facility] Address: [address] [place] [address] Performed By: #### T SCR ####[facility] BLOOD BANKIA [id number] [place] [address] [place] XR HIP 3V PELV+ AP/LAT LTon 10-16-2023 XR HIP 3V PELV+ AP/LAT LT Normal [facility] aPTT PPPon 10-16-2023 aPTT Coag (PPP) [Time] 62.8 s High 23.0-32.4 [facility] Comment on above: Order Comment: Speci men Type: BLOOD SPECIMENOrdering Facility: [facility] Address: [address] [place] [address] Performed By: #### 1 4979-9 ####[facility] LABCLIA [id number] [place] [address] [place] Bacteria Spec Resp Culton Bacteria identified Respiratory culture Nom (Unsp spec) Abnormal [facility] Comment on above: Performed By: #### 3 2355-0 ####[facility] LABCLIA [id number] [place] [address] [place] CBC panel Auto (Bld)on 10-15 Erythrocyte distribution width (RBC) [Ratio] 17.9 % High 11.5-15.0 [facility] Comment on above: Order Comment: Speci men Type: BLOOD SPECIMENOrdering Facility: [facility] Address: [address] [place] [address] Performed By: #### 5 8410-2 ####[facility] LABCLIA [id number] [place] [address] [place] Hematocrit (Bld) [Volume fraction] 32.4 % Low 39.0-51.0 [facility] Comment on above: Order Comment: Speci men Type: BLOOD SPECIMENOrdering Facility: [facility] Address: [address] [place] [address] Performed By: #### 5 8410-2 ####[facility] LABCLIA [id number] [address] [place] Hemoglobin (Bld) [Mass/Vol] 9.6 g/dL Low 13.0-17.0 [facility] Comment on above: Order Comment: Speci men Type: BLOOD SPECIMENOrdering Facility: [facility] Address: [address] [place] [address] Performed By: #### 5 8410-2 ####[facility] LABIA [id number] [place] [address] [place] MCH (RBC) [Entitic mass] 24.7 pg Low 26.0-34.0 [facility] Comment on above: Order Comment: Speci men Type: BLOOD SPECIMENOrdering Facility: [facility] Address: [address] [place] [address] Performed By: #### 5 8410-2 ####[facility] LABCLIA [id number] [place] [address] [place] MCHC (RBC) [Mass/Vol] 29.6 g/dL Low 30.5-36.0 [facility] Comment on above: Order Comment: Speci men Type: BLOOD SPECIMENOrdering Facility: [facility] Address: [address] [place] [address] Performed By: #### 5 8410-2 ####[facility] LABIA [id number] [place] [address] [place] MCV (RBC) [Entitic vol] 83.3 fL Normal 80.0-100.0 [facility] Comment on above: Order Comment: Speci men Type: BLOOD SPECIMENOrdering Facility: [facility] Address: [address] [place] [address] Performed By: #### 5 8410-2 ####[facility] LABIA [id number] [place] [address] [place] Nucleated RBC (Bld) [#/Vol] 10*3/uL Normal <0.01 [facility] Comment on above: Order Comment: Speci men Type: BLOOD SPECIMENOrdering Facility: [facility] Address: [address] [place] [address] Performed By: #### 5 8410-2 ####[facility] LABIA [id number] [place] [address] [place] Platelet mean volume (Bld) [Entitic vol] 10.8 fL Normal 9.0-12.7 [facility] Comment on above: Order Comment: Speci men Type: BLOOD SPECIMENOrdering Facility: [facility] Address: [address] [place] [address] Performed By: #### 5 8410-2 ####[facility] LABIA [id number] [place] [address] [place] Platelets (Bld) [#/Vol] 475 10*3/uL High 150-400 [facility] [facility] Comment on above: Order Comment: Speci men Type: BLOOD SPECIMENOrdering Facility: [facility] Address: [address] [place] [address] Performed By: #### 5 8410-2 ####[facility] LABCLIA [id number] [address] [address] [place] RBC (Bld) [#/Vol] 3.89 10*6/uL Low 4.20-6.00 [facility] Comment on above: Order Comment: Speci men Type: BLOOD SPECIMENOrdering Facility: [facility] Address: [address] [place] [address] Performed By: #### 5 8410-2 ####[facility] LABIA [id number] [address] [address] [place] WBC (Bld) [#/Vol] 5.56 10*3/uL Normal 3.70-11.00 [facility] Comment on above: Order Comment: Speci men Type: BLOOD SPECIMENOrdering Facility: [facility] Address: [address] [place] [address] Performed By: #### 5 8410-2 ####[facility] [id number] [place] [id number] [place] CONSULTon 10-15-2023 CONSULT Normal [facility] CONSULT PROGon 10-15-2023 CONSULT PROG Normal [facility] Comprehensive metabolic 2000 panelon 10-15-2023 Albumin [Mass/Vol] 2.5 g/dL Low 3.9-4.9 [facility] Comment on above: Order Comment: Speci men Type: BLOOD SPECIMENOrdering Facility: [facility] Address: [address] [place] [address] Performed By: #### 2 4323-8, 2777-1, 26383-4 ####[facility] [id number] [place] [id number] [place] ALP [Catalytic activity/Vol] 960 U/L High 38-113 [facility] Comment on above: Order Comment: Speci men Type: BLOOD SPECIMENOrdering Facility: [facility] Address: [address] [place] [address] Performed By: #### 2 4323-8, 27703-09, ####[facility] LABCLIA [id number] [address] [address] [place] ALT [Catalytic activity/Vol] 353 U/L High 10-54 [facility] Comment on above: Order Comment: Speci men Type: BLOOD SPECIMENOrdering Facility: [facility] Address: [address] [place], [place] [address] Performed By: #### 2 4323-8, 27703-09, ####[facility] LABCLIA [id number] [place] [address] [place] Anion gap [Moles/Vol] 7 mmol/L Low 9-18 [facility] Comment on above: Order Comment: Speci men Type: BLOOD SPECIMENOrdering Facility: [facility] Address: [address] [place] [address] Performed By: #### 2 4323-8, 2776-09, ####[facility] LABCLIA [id number] [place] [address] [place] AST [Catalytic activity/Vol] 370 U/L High 14-40 [facility] Comment on above: Order Comment: Speci men Type: BLOOD SPECIMENOrdering Facility: [facility] Address: [address] [place] [address] Performed By: #### 2 4323-8, 2776-09, ####[facility] LABCLIA [id number] [address] [address] [place] Bilirubin [Mass/Vol] 0.3 mg/dL Normal 0.2-1.3 [facility] Comment on above: Order Comment: Speci men Type: BLOOD SPECIMENOrdering Facility: [facility] Address: [address] [place] [address] Performed By: #### 2 4323-8, 27703-09, ####[facility] LABCLIA [id number] [address] [address] [place] Calcium [Mass/Vol] 8.7 mg/dL Normal 8.5-10.2 [facility] Comment on above: Order Comment: Speci men Type: BLOOD SPECIMENOrdering Facility: [facility] Address: [address] [place] [address] Performed By: #### 2 4323-8, 2776-09, ####[facility] LABCLIA [id number] [address] [address] [place] Chloride [Moles/Vol] 100 mmol/L Normal 97-105 [facility] Comment on above: Order Comment: Speci men Type: BLOOD SPECIMENOrdering Facility: [facility] Address: [address] [place] [address] Performed By: #### 2 4323-8, 2776-09, ####[facility] LABCLIA [id number] [place] [id number] [place] CO2 [Moles/Vol] 30 mmol/L Normal 22-30 [facility] Comment on above: Order Comment: Speci men Type: BLOOD SPECIMENOrdering Facility: [facility] Address: [address] [place], [place] [address] Performed By: #### 2 4323-8, 2776-09, ####[facility] LABCLIA [id number] [address] [address] [place] Creatinine [Mass/Vol] 0.41 mg/dL Low 0.73-1.22 [facility] Comment on above: Order Comment: Speci men Type: BLOOD SPECIMENOrdering Facility: [facility] Address: [address] [place] [address] Performed By: #### 2 4323-8, 27703-09, ####[facility] LABCLIA [id number] [place] [address] [place] Creatinine and Glomerular filtration rate.predicted panel (S/P/Bld) 141 mL/min/1.73m??? Normal >=60 [facility] Comment on above: Order Comment: Darwin schwarz Type: BLOOD SPECIMENOrdering Facility: [facility] Address: [address] [place] [address] Result Comment: Rae mated Glomerular Filtration Rate (eGFR) is calculated using the 2020 CKD-EPI creatinine equation. This equation utilizes serum creatinine, sex, and age as parameters. The creatinine assay has traceable calibration to isotope dilution-mass spectrometry. Refer to KDIGO guidelines for clinical interpretation. In patients with unstable renal function, e.g. those with acute kidney injury, the eGFR may not accurately reflect actual GFR. Performed By: #### 2 4323-8, 2777-, ####[facility] LABIA [id number] [place] [address] [place] Glucose [Mass/Vol] 133 mg/dL High 74-99 [facility] Comment on above: Order Comment: Darwin schwarz Type: BLOOD SPECIMENOrdering Facility: [facility] Address: [address] [place] [address] Result Comment: The [place] Diabetes [employer] (ADA) provides guidance for cutoff values for fasting glucose and random glucose. The ADA defines fasting as no caloric intake for at least 8 hours. Fasting plasma glucose results between 100 to 125 mg/dL indicate increased risk for diabetes (prediabetes).Fasting plasma glucose results greater than or equal to 126 mg/dL meet the criteria for diagnosis of diabetes. In the absence of unequivocal hyperglycemia, results should be confirmed by repeat testing. In a patient with classic symptoms of hyperglycemia or hyperglycemic crisis, random plasma glucose results greater than or equal to 200 mg/dL meet the criteria for diagnosis of diabetes.Reference: Standards of Medical Care in Diabetes 2016, [place] [employer]. Diabetes Care. 2016.39(Suppl 1). Performed By: #### 2 4323-8, 2777-1, 79911-1 ####[facility] LABIA [id number] [place] [address] [place] Potassium [Moles/Vol] 3.8 mmol/L Normal 3.7-5.1 [facility] Comment on above: Order Comment: Speci men Type: BLOOD SPECIMENOrdering Facility: [facility] Address: [address] [place] [address] Performed By: #### 2 4323-8, 27703-09, ####[facility] LABCLIA [id number] [place] [address] [place] Protein [Mass/Vol] 5.4 g/dL Low 6.3-8.0 [facility] Comment on above: Order Comment: Speci men Type: BLOOD SPECIMENOrdering Facility: [facility] Address: [address] [place] [address] Performed By: #### 2 4323-8, 2776-09, ####[facility] LABCLIA [id number] [place] [address] [place] Sodium [Moles/Vol] 137 mmol/L Normal 136-144 [facility] Comment on above: Order Comment: Speci men Type: BLOOD SPECIMENOrdering Facility: [facility] Address: [address] [place] [address] Performed By: #### 2 4323-8, 2776-09, ####[facility] LABCLIA [id number] [place] [address] [place] Urea nitrogen [Mass/Vol] 6 mg/dL Low 9-24 [facility] Comment on above: Order Comment: Speci men Type: BLOOD SPECIMENOrdering Facility: [facility] Address: [address] [place] [address] Performed By: #### 2 4323-8, 2776-, ####[facility] LABCLIA [id number] [address] [address] [place] Gas and Carbon monoxide pane l (BldV)on 10-15-2023 Base excess Calc (BldV) [Moles/Vol] 6 mmol/L High 0-2 [facility] Comment on above: Order Comment: Speci men Type: VENOUS BLOOD SPECIMENOrdering Facility: [facility] Address: [address] [place] [address] Performed By: #### 2 4344-4 ####[facility] LABIA [id number] [place] [address] [place] Body temperature 98.6 [degF] Normal [facility] Comment on above: Order Comment: Speci men Type: VENOUS BLOOD SPECIMENOrdering Facility: [facility] Address: [address] [place] [address] Performed By: #### 2 4344-4 ####[facility] LABIA [id number] [place] [address] [place] Calcium.ionized (Bld) [Mass/Vol] 1.22 mmol/L Normal 1.08-1.30 [facility] Comment on above: Order Comment: Speci men Type: VENOUS BLOOD SPECIMENOrdering Facility: [facility] Address: [address] [place] [address] Performed By: #### 2 4344-4 ####[facility] LABIA [id number] [place] [address] [place] Calcium.ionized adjusted to pH 7.4 (BldA) [Moles/Vol] 1.21 mmol/L Normal 1.08-1.30 [facility] Comment on above: Order Comment: Speci men Type: VENOUS BLOOD SPECIMENOrdering Facility: [facility] Address: [address] [place] [address] Performed By: #### 2 4344-4 ####[facility] LABCLIA [id number] [place] [address] [place] Carboxyhemoglobin (BldV) [Mass fraction] 1.5 % Normal 0.0-2.0 [facility] Comment on above: Order Comment: Speci men Type: VENOUS BLOOD SPECIMENOrdering Facility: [facility] Address: [address] [place] [address] Result Comment: Carb oxyhemoglobin Reference Range for Smokers: 2.0-8.0% Performed By: #### 2 4344-4 ####[facility] LABCLIA [id number] [place] [address] [place] CO2 (BldV) [Partial pressure] 52 mm[Hg] Normal 42-55 [facility] Comment on above: Order Comment: Speci men Type: VENOUS BLOOD SPECIMENOrdering Facility: [facility] Address: [address] [place] [address] Performed By: #### 2 4344-4 ####[facility] LABCLIA [id number] [place] [address] [place] FIO2 30 % Normal [facility] Comment on above: Order Comment: Speci men Type: VENOUS BLOOD SPECIMENOrdering Facility: [facility] Address: [address] [place] [address] Performed By: #### 2 4344-4 ####[facility] LABCLIA [id number] [place] [address] [place] Glucose [Mass/Vol] 111 mg/dL High 60-105 [facility] Comment on above: Order Comment: Speci men Type: VENOUS BLOOD SPECIMENOrdering Facility: [facility] Address: [address] [place] [address] Performed By: #### 2 4344-4 ####[facility] LABCLIA [id number] [place] [address] [place] HCO3 (Bld) [Moles/Vol] 32 mmol/L High 24-28 [facility] Comment on above: Order Comment: Speci men Type: VENOUS BLOOD SPECIMENOrdering Facility: [facility] Address: [address] [place] [address] Performed By: #### 2 4344-4 ####[facility] LABIA [id number] [place] [address] [place] Hematocrit (Bld) [Volume fraction] 31.0 % Low 39.0-51.0 [facility] Comment on above: Order Comment: Speci men Type: VENOUS BLOOD SPECIMENOrdering Facility: [facility] Address: [address] [place] [address] Performed By: #### 2 4344-4 ####[facility] LABIA [id number] [place] [address] [place] Hemoglobin (Bld) [Mass/Vol] 10.0 g/dL Low 13.0-17.0 [facility] Comment on above: Order Comment: Speci men Type: VENOUS BLOOD SPECIMENOrdering Facility: [facility] Address: [address] [place] [address] Performed By: #### 2 4344-4 ####[facility] LABIA [id number] [place] [address] [place] Lactate [Moles/Vol] 0.9 mmol/L Normal 0.5-2.2 [facility] Comment on above: Order Comment: Speci men Type: VENOUS BLOOD SPECIMENOrdering Facility: [facility] Address: [address] [place] [address] Performed By: #### 2 4344-4 ####[facility] LABIA [id number] [place] [address] [place] Methemoglobin (Bld) [Mass fraction] 0.8 % Normal 0.0-1.5 [facility] Comment on above: Order Comment: Speci men Type: VENOUS BLOOD SPECIMENOrdering Facility: [facility] Address: [address] [place] [address] Performed By: #### 2 4344-4 ####[facility] [id number] [place] [address] [id number] [address] [place] O2 THERAPY Ventilator Normal [facility] Comment on above: Order Comment: Speci men Type: VENOUS BLOOD SPECIMENOrdering Facility: [facility] Address: [address] [place] [id number] Performed By: #### 2 4344-4 ####[facility] LABCLIA [id number] [address] [address] [place] Oxygen (BldV) [Partial pressure] 51 mm[Hg] High 35-45 [facility] Comment on above: Order Comment: Speci men Type: VENOUS BLOOD SPECIMENOrdering Facility: [facility] Address: [address] [place], [place] [address] Performed By: #### 2 4344-4 ####[facility] LABCLIA [id number] [place] [address] [place] Oxygen saturation in Venous blood 83 % Normal 60-85 [facility] Comment on above: Order Comment: Speci men Type: VENOUS BLOOD SPECIMENOrdering Facility: [facility] Address: [address] [place], [place] [address] Performed By: #### 2 4344-4 ####[facility] LABCLIA [id number] [place] [address] [place] Oxyhemoglobin (BldV) [Mass fraction] 82 % Normal 60-85 [facility] Comment on above: Order Comment: Speci men Type: VENOUS BLOOD SPECIMENOrdering Facility: [facility] Address: [address] [place], [place] [address] Performed By: #### 2 4344-4 ####[facility] LABCLIA [id number] [place] [id number] [place] PEEP/CPAP 5 cmH2O Normal [facility] Comment on above: Order Comment: Speci men Type: VENOUS BLOOD SPECIMENOrdering Facility: [facility] Address: [address] [place], [place] [address] Performed By: #### 2 4344-4 ####[facility] LABCLIA [id number] [place] [address] [place] pH (BldV) 7.40 [pH] Normal 7.32-7.42 [facility] Comment on above: Order Comment: Speci men Type: VENOUS BLOOD SPECIMENOrdering Facility: [facility] Address: [address] [place] [address] Performed By: #### 2 4344-4 ####[facility] LABCLIA [id number] [place] [address] [place] Potassium [Moles/Vol] 3.9 mmol/L Normal 3.5-5.0 [facility] Comment on above: Order Comment: Speci men Type: VENOUS BLOOD SPECIMENOrdering Facility: [facility] Address: [address] [place] [address] Performed By: #### 2 4344-4 ####[facility] LABCLIA [id number] [place] [address] [place] Sodium [Moles/Vol] 137 mmol/L Normal 136-144 [facility] Comment on above: Order Comment: Speci men Type: VENOUS BLOOD SPECIMENOrdering Facility: [facility] Address: [address] [place] [address] Performed By: #### 2 4344-4 ####[facility] LABCLIA [id number] [place] [address] [place] Magnesium SerPl-mCncon 10-15 Magnesium [Mass/Vol] 2.0 mg/dL Normal 1.7-2.3 [facility] Comment on above: Order Comment: Speci men Type: BLOOD SPECIMENOrdering Facility: [facility] Address: [address] [place] [address] Performed By: #### 2 4323-8, 2777-1, 58110-8 ####[facility] LABCLIA [id number] [place] [address] [place] Phosphate SerPl-mCncon 10-15 Phosphate [Mass/Vol] 3.0 mg/dL Normal 2.7-4.8 [facility] Comment on above: Order Comment: Speci men Type: BLOOD SPECIMENOrdering Facility: [facility] Address: [address] [place] [address] Performed By: #### 2 4323-8, 2777-1, 15530-0 ####[facility] LABCLIA [id number] [place] [address] [place] US ABD RIGHT UPPER QUADRANTo n 10-15-2023 US ABD RIGHT UPPER QUADRANT Normal [facility] US ABD SPLEEN -NBon 10-15-19 US ABD SPLEEN -NB Normal [facility] XR CHEST 1V FRONTAL PORTon 0 10-15-2023 XR CHEST 1V FRONTAL PORT Normal [facility] aPTT PPPon 10-15-2023 aPTT Coag (PPP) [Time] 67.1 s High 23.0-32.4 [facility] Comment on above: Order Comment: Speci men Type: BLOOD SPECIMENOrdering Facility: [facility] Address: [address] [place] [address] Performed By: #### 1 4979-9 ####[facility] LABCLIA [id number] [place] [address] [place] ALLIED HEALTHon 10-14-2023 ALLIED HEALTH Normal [facility] CASE MANAGEMon 10-14-2023 CASE MANAGEM Normal [facility] CASE MANAGEM Normal [facility] CASE MGT INIT ASSESon 2023 CASE MGT INIT ASSES Normal [facility] CBC panel Auto (Bld)on 10-14 Erythrocyte distribution width (RBC) [Ratio] 18.2 % High 11.5-15.0 [facility] Comment on above: Order Comment: Speci men Type: BLOOD SPECIMENOrdering Facility: [facility] Address: [address] [place] [address] Performed By: #### 5 8410-2 ####[facility] LABCLIA [id number] [place] [address] [place] Hematocrit (Bld) [Volume fraction] 32.8 % Low 39.0-51.0 [facility] Comment on above: Order Comment: Speci men Type: BLOOD SPECIMENOrdering Facility: [facility] Address: [address] [place] [address] Performed By: #### 5 8410-2 ####[facility] LABIA [id number] [place] [address] [place] Hemoglobin (Bld) [Mass/Vol] 9.4 g/dL Low 13.0-17.0 [facility] Comment on above: Order Comment: Speci men Type: BLOOD SPECIMENOrdering Facility: [facility] Address: [address] [place] [address] Performed By: #### 5 8410-2 ####[facility] [id number] [place] [address] [place] MCH (RBC) [Entitic mass] 24.6 pg Low 26.0-34.0 [facility] Comment on above: Order Comment: Speci men Type: BLOOD SPECIMENOrdering Facility: [facility] Address: [address] [place] [address] Performed By: #### 5 8410-2 ####[facility] [id number] [place] [address] [place] MCHC (RBC) [Mass/Vol] 28.7 g/dL Low 30.5-36.0 [facility] Comment on above: Order Comment: Speci men Type: BLOOD SPECIMENOrdering Facility: [facility] Address: [address] [place] [address] Performed By: #### 5 8410-2 ####[facility] [id number] [place] [address] [place] MCV (RBC) [Entitic vol] 85.9 fL Normal 80.0-100.0 [facility] Comment on above: Order Comment: Speci men Type: BLOOD SPECIMENOrdering Facility: [facility] Address: [address] [place] [address] Performed By: #### 5 8410-2 ####[facility] LABCLIA [id number] [place] [address] [place] Nucleated RBC (Bld) [#/Vol] 10*3/uL Normal <0.01 [facility] Comment on above: Order Comment: Speci men Type: BLOOD SPECIMENOrdering Facility: [facility] Address: [address] [place] [address] Performed By: #### 5 8410-2 ####[facility] LABIA [id number] [place] [address] [place] Platelet mean volume (Bld) [Entitic vol] 10.9 fL Normal 9.0-12.7 [facility] Comment on above: Order Comment: Speci men Type: BLOOD SPECIMENOrdering Facility: [facility] Address: [address] [place] [address] Performed By: #### 5 8410-2 ####[facility] LABIA [id number] [place] [address] [place] Platelets (Bld) [#/Vol] 448 10*3/uL High 150-400 [facility] Comment on above: Order Comment: Speci men Type: BLOOD SPECIMENOrdering Facility: [facility] Address: [address] [place] [address] Performed By: #### 5 8410-2 ####[facility] LABIA [id number] [place] [address] [place] RBC (Bld) [#/Vol] 3.82 10*6/uL Low 4.20-6.00 [facility] Comment on above: Order Comment: Speci men Type: BLOOD SPECIMENOrdering Facility: [facility] Address: [address] [place] [address] Performed By: #### 5 8410-2 ####[facility] LABIA [id number] [place] [address] [place] WBC (Bld) [#/Vol] 8.07 10*3/uL Normal 3.70-11.00 [facility] Comment on above: Order Comment: Speci men Type: BLOOD SPECIMENOrdering Facility: [facility] Address: [address] [place] [address] Performed By: #### 5 8410-2 ####[facility] LABIA [id number] [place] [address] [place] CNCOon 10-14-2023 CNCO Letter Text Normal [facility] metabolic 2000 panelon 10-14-2023 Albumin [Mass/Vol] 2.4 g/dL Low 3.9-4.9 [facility] Comment on above: Order Comment: Speci men Type: BLOOD SPECIMENOrdering Facility: [facility] Address: [address] [place] [address] Performed By: #### 1 9123-9, 2777-1, 07954-7 ####[facility]IA [id number] [place] [address] [place] ALP [Catalytic activity/Vol] 387 U/L High 38-113 [facility] Comment on above: Order Comment: Speci men Type: BLOOD SPECIMENOrdering Facility: [facility] Address: [address] [place] [address] Performed By: #### 1 9123-9, 2777-1, 07351-7 ####[facility]IA [id number] [place] [address] [place] ALT [Catalytic activity/Vol] 60 U/L High 10-54 [facility] Comment on above: Order Comment: Speci men Type: BLOOD SPECIMENOrdering Facility: [facility] Address: [address] [place] [address] Performed By: #### 1 9123-9, 2777-1, 21173-1 ####[facility] LABCLIA [id number] [place] [address] [place] Anion gap [Moles/Vol] 11 mmol/L Normal 9-18 [facility] Comment on above: Order Comment: Speci men Type: BLOOD SPECIMENOrdering Facility: [facility] Address: [address] [place] [address] Performed By: #### 1 9123-9, 27771, 65915-7 ####[facility] LABCLIA [id number] [place] [address] [place] AST [Catalytic activity/Vol] 86 U/L High 14-40 [facility] Comment on above: Order Comment: Speci men Type: BLOOD SPECIMENOrdering Facility: [facility] Address: [address] [place] [address] Performed By: #### 1 9123-9, 2777, 54892-3 ####[facility] LABCLIA [id number] [place] [address] [place] Bilirubin [Mass/Vol] mg/dL Low 0.2-1.3 [facility] Comment on above: Order Comment: Speci men Type: BLOOD SPECIMENOrdering Facility: [facility] Address: [address] [place] [address] Performed By: #### 1 9123-9, 27703-09, 30055-3 ####[facility]IA [id number] [place] [address] [place] Calcium [Mass/Vol] 8.9 mg/dL Normal 8.5-10.2 [facility] Comment on above: Order Comment: Speci men Type: BLOOD SPECIMENOrdering Facility: [facility] Address: [address] [place] [address] Performed By: #### 1 9123-9, 2777-, 46763-8 ####[facility] LABCLIA [id number] [address] [address] [place] Chloride [Moles/Vol] 103 mmol/L Normal 97-105 [facility] Comment on above: Order Comment: Speci men Type: BLOOD SPECIMENOrdering Facility: [facility] Address: [address] [place] [address] Performed By: #### 1 9123-9, 27703-09, 58789-2 ####[facility]IA [id number] [place] [address] [place] CO2 [Moles/Vol] 25 mmol/L Normal 22-30 [facility] Comment on above: Order Comment: Speci men Type: BLOOD SPECIMENOrdering Facility: [facility] Address: [address] [place] [address] Performed By: #### 1 9123-9, 27703-09, 33456-4 ####[facility]IA [id number] [place] [address] [place] Creatinine [Mass/Vol] 0.40 mg/dL Low 0.73-1.22 [facility] Comment on above: Order Comment: Speci men Type: BLOOD SPECIMENOrdering Facility: [facility] Address: [address] [place] [address] Performed By: #### 1 9123-9, 27703-09, 17691-5 ####[facility] LABIA [id number] [place] [id number] [place] Creatinine and Glomerular filtration rate.predicted panel (S/P/Bld) 142 mL/min/1.73m??? Normal >=60 [facility] Comment on above: Order Comment: Speci men Type: BLOOD SPECIMENOrdering Facility: [facility] Address: [address] [place] [address] Result Comment: Rae mated Glomerular Filtration Rate (eGFR) is calculated using the 2020 CKD-EPI creatinine equation. This equation utilizes serum creatinine, sex, and age as parameters. The creatinine assay has traceable calibration to isotope dilution-mass spectrometry. Refer to KDIGO guidelines for clinical interpretation. In patients with unstable renal function, e.g. those with acute kidney injury, the eGFR may not accurately reflect actual GFR. Performed By: #### 1 9123-9, 2777, ####[facility] LABCLIA [id number] [address] [address] [place] Glucose [Mass/Vol] 120 mg/dL High 74-99 [facility] Comment on above: Order Comment: Speci men Type: BLOOD SPECIMENOrdering Facility: [facility] Address: [address] [place] [address] Result Comment: The [place] [employer] (ADA) provides guidance for cutoff values for fasting glucose and random glucose. The ADA defines fasting as no caloric intake for at least 8 hours. Fasting plasma glucose results between 100 to 125 mg/dL indicate increased risk for diabetes (prediabetes).Fasting plasma glucose results greater than or equal to 126 mg/dL meet the criteria for diagnosis of diabetes. In the absence of unequivocal hyperglycemia, results should be confirmed by repeat testing. In a patient with classic symptoms of hyperglycemia or hyperglycemic crisis, random plasma glucose results greater than or equal to 200 mg/dL meet the criteria for diagnosis of diabetes.Reference: Standards of Medical Care in Diabetes 2016, [place] [employer]. Diabetes Care. 2016.39(Suppl 1). Performed By: #### 1 9123-9, 2776-09, ####[facility]IA [id number] [address] [address] [place] Potassium [Moles/Vol] 3.8 mmol/L Normal 3.7-5.1 [facility] Comment on above: Order Comment: Darwin schwarz Type: BLOOD SPECIMENOrdering Facility: [facility] Address: [address] [place] [address] Performed By: #### 1 9123-9, 27703-09, ####[facility] LABCLIA [id number] [place] [address] [place] Protein [Mass/Vol] 5.5 g/dL Low 6.3-8.0 [facility] Comment on above: Order Comment: Speci men Type: BLOOD SPECIMENOrdering Facility: [facility] Address: [address] [place] [address] Performed By: #### 1 9123-9, 2777-1, 47725-9 ####[facility] LABCLIA [id number] [place] [address] [place] Sodium [Moles/Vol] 139 mmol/L Normal 136-144 [facility] Comment on above: Order Comment: Speci men Type: BLOOD SPECIMENOrdering Facility: [facility] Address: [address] [place] [address] Performed By: #### 1 9123-9, 2777-1, 45472-1 ####[facility]IA [id number] [place] [address] [place] Urea nitrogen [Mass/Vol] 9 mg/dL Normal 9-24 [facility] Comment on above: Order Comment: Speci men Type: BLOOD SPECIMENOrdering Facility: [facility] Address: [address] [place] [address] Performed By: #### 1 9123-9, 2777-1, 20234-3 ####[facility] LABCLIA [id number] [place] [address] [place] GGT SerPl-cCncon 10-14-2023 Gamma glutamyl transferase [Catalytic activity/Vol] 272 U/L High 10-70 [facility] Comment on above: Order Comment: Speci men Type: BLOOD SPECIMENOrdering Facility: [facility] Address: [address] [place] [address] Performed By: #### 2 324-2 ####[facility] LABCLIA [id number] [place] [address] [place] MRI PELVIS WO/W IVCONon 02-0 MRI PELVIS WO/W IVCON Normal [facility] Magnesium SerPl-mCncon 10-14 Magnesium [Mass/Vol] 1.8 mg/dL Normal 1.7-2.3 [facility] Comment on above: Order Comment: Speci men Type: BLOOD SPECIMENOrdering Facility: [facility] Address: [address] [place] [address] Performed By: #### 1 9123-9, 2777-1, 97024-4 ####[facility] LABCLIA [id number] [place] [address] [place] NURSING PROGon 10-14-2023 NURSING PROG Normal [facility] PTT, ANTICOAGULANT THERAPYon 10-14-2023 aPTT Coag (PPP) [Time] 72.9 s High 23.0-32.4 [facility] Comment on above: Order Comment: Speci men Type: BLOOD SPECIMENOrdering Facility: [facility] Address: [address] [place] [address] Performed By: #### P TTAC ####[facility] LABIA [id number] [address] [place] aPTT Coag (PPP) [Time] 72.2 s High 23.0-32.4 [facility] Comment on above: Order Comment: Speci men Type: BLOOD SPECIMENOrdering Facility: [facility] Address: [address] [place] [address] Performed By: #### P TTAC ####[facility] LABIA [id number] [place] [address] [place] Phosphate SerPl-mCncon 10-14 Phosphate [Mass/Vol] 2.9 mg/dL Normal 2.7-4.8 [facility] Comment on above: Order Comment: Speci men Type: BLOOD SPECIMENOrdering Facility: [facility] Address: [address] [place] [address] Performed By: #### 1 9123-9, 2777-1, 83549-0 ####[facility]IA [id number] [place] [address] [place] THERAPY NTon 10-14-2023 THERAPY NT Normal [facility] CBC panel Auto (Bld)on 10-13 Erythrocyte distribution width (RBC) [Ratio] 18.1 % High 11.5-15.0 [facility] Comment on above: Order Comment: Speci men Type: BLOOD SPECIMENOrdering Facility: [facility] Address: [address] [place] [address] Performed By: #### 5 8410-2 ####[facility] [id number] [address] [place] Hematocrit (Bld) [Volume fraction] 31.1 % Low 39.0-51.0 [facility] Comment on above: Order Comment: Speci men Type: BLOOD SPECIMENOrdering Facility: [facility] Address: [address] [place] [address] Performed By: #### 5 8410-2 ####[facility]IA [id number] [address] [place] Hemoglobin (Bld) [Mass/Vol] 9.0 g/dL Low 13.0-17.0 [facility] Comment on above: Order Comment: Speci men Type: BLOOD SPECIMENOrdering Facility: [facility] Address: [address] [place] [address] Performed By: #### 5 8410-2 ####[facility] [id number] [place] [address] [place] MCH (RBC) [Entitic mass] 24.7 pg Low 26.0-34.0 [facility] Comment on above: Order Comment: Speci men Type: BLOOD SPECIMENOrdering Facility: [facility] Address: [address] [place] [address] Performed By: #### 5 8410-2 ####[facility]IA [id number] [place] [address] [place] MCHC (RBC) [Mass/Vol] 28.9 g/dL Low 30.5-36.0 [facility] Comment on above: Order Comment: Speci men Type: BLOOD SPECIMENOrdering Facility: [facility] Address: [address] [place] [address] Performed By: #### 5 8410-2 ####[facility]IA [id number] [place] [address] [place] MCV (RBC) [Entitic vol] 85.2 fL Normal 80.0-100.0 [facility] Comment on above: Order Comment: Speci men Type: BLOOD SPECIMENOrdering Facility: [facility] Address: [address] [place] [address] Performed By: #### 5 8410-2 ####[facility]IA [id number] [place] [address] [place] Nucleated RBC (Bld) [#/Vol] 10*3/uL Normal <0.01 [facility] Comment on above: Order Comment: Speci men Type: BLOOD SPECIMENOrdering Facility: [facility] Address: [address] [place] [address] Performed By: #### 5 8410-2 ####[facility]IA [id number] [place] [address] [place] Platelet mean volume (Bld) [Entitic vol] 10.9 fL Normal 9.0-12.7 [facility] Comment on above: Order Comment: Speci men Type: BLOOD SPECIMENOrdering Facility: [facility] Address: [address] [place] [address] Performed By: #### 5 8410-2 ####[facility]IA [id number] [place] [address] [place] Platelets (Bld) [#/Vol] 433 10*3/uL High 150-400 [facility] Comment on above: Order Comment: Speci men Type: BLOOD SPECIMENOrdering Facility: [facility] Address: [address] [place] [address] Performed By: #### 5 8410-2 ####[facility] LABCLIA [id number] [place] [address] [place] RBC (Bld) [#/Vol] 3.65 10*6/uL Low 4.20-6.00 [facility] Comment on above: Order Comment: Speci men Type: BLOOD SPECIMENOrdering Facility: [facility] Address: [address] [place] [address] Performed By: #### 5 8410-2 ####[facility] LABCLIA [id number] [place] [address] [place] WBC (Bld) [#/Vol] 9.13 10*3/uL Normal 3.70-11.00 [facility] Comment on above: Order Comment: Speci men Type: BLOOD SPECIMENOrdering Facility: [facility] Address: [address] [place] [address] Performed By: #### 5 8410-2 ####[facility] LABCLIA [id number] [place] [address] [place] Comprehensive metabolic 2000 panelon 10-13-2023 Albumin [Mass/Vol] 2.6 g/dL Low 3.9-4.9 [facility] Comment on above: Order Comment: Speci men Type: BLOOD SPECIMENOrdering Facility: [facility] Address: [address] [place] [address] Performed By: #### 2 4323-8 ####[facility] LABCLIA [id number] [place] [address] [place] ALP [Catalytic activity/Vol] 188 U/L High 38-113 [facility] Comment on above: Order Comment: Speci men Type: BLOOD SPECIMENOrdering Facility: [facility] Address: [address] [place] [id number] Performed By: #### 2 4323-8 ####[facility] LABCLIA [id number] [place] [address] [place] ALT [Catalytic activity/Vol] 18 U/L Normal 10-54 [facility] Comment on above: Order Comment: Speci men Type: BLOOD SPECIMENOrdering Facility: [facility] Address: [address] [place] [address] Performed By: #### 2 4323-8 ####[facility] LABCLIA [id number] [place] [address] [place] Anion gap [Moles/Vol] 8 mmol/L Low 9-18 [facility] Comment on above: Order Comment: Speci men Type: BLOOD SPECIMENOrdering Facility: [facility] Address: [address] [place] [address] Performed By: #### 2 4323-8 ####[facility] LABCLIA [id number] [place] [address] [place] AST [Catalytic activity/Vol] 9 U/L Low 14-40 [facility] Comment on above: Order Comment: Speci men Type: BLOOD SPECIMENOrdering Facility: [facility] Address: [address] [place], [place] [address] Performed By: #### 2 4323-8 ####[facility] LABCLIA [id number] [place] [address] [place] Bilirubin [Mass/Vol] 0.2 mg/dL Normal 0.2-1.3 [facility] Comment on above: Order Comment: Speci men Type: BLOOD SPECIMENOrdering Facility: [facility] Address: [address] [place] [address] Performed By: #### 2 4323-8 ####[facility] LABCLIA [id number] [place] [address] [place] Calcium [Mass/Vol] 9.0 mg/dL Normal 8.5-10.2 [facility] Comment on above: Order Comment: Speci men Type: BLOOD SPECIMENOrdering Facility: [facility] Address: [address] [place] [address] Performed By: #### 2 4323-8 ####[facility] LABCLIA [id number] [place] [address] [place] Chloride [Moles/Vol] 105 mmol/L Normal 97-105 [facility] Comment on above: Order Comment: Speci men Type: BLOOD SPECIMENOrdering Facility: [facility] Address: [address] [place] [address] Performed By: #### 2 4323-8 ####[facility] LABCLIA [id number] [place] [address] [place] CO2 [Moles/Vol] 28 mmol/L Normal 22-30 [facility] Comment on above: Order Comment: Speci men Type: BLOOD SPECIMENOrdering Facility: [facility] Address: [address] [place] [address] Performed By: #### 2 4323-8 ####[facility] LABCLIA [id number] [place] [address] [place] Creatinine [Mass/Vol] 0.48 mg/dL Low 0.73-1.22 [facility] Comment on above: Order Comment: Speci men Type: BLOOD SPECIMENOrdering Facility: [facility] Address: [address] [place] [address] Performed By: #### 2 4323-8 ####[facility] LABCLIA [id number] [place] [address] [place] Creatinine and Glomerular filtration rate.predicted panel (S/P/Bld) 135 mL/min/1.73m??? Normal >=60 [facility] Comment on above: Order Comment: Darwin schwarz Type: BLOOD SPECIMENOrdering Facility: [facility] Address: [address] [place] [address] Result Comment: Rae mated Glomerular Filtration Rate (eGFR) is calculated using the 2020 CKD-EPI creatinine equation. This equation utilizes serum creatinine, sex, and age as parameters. The creatinine assay has traceable calibration to isotope dilution-mass spectrometry. Refer to KDIGO guidelines for clinical interpretation. In patients with unstable renal function, e.g. those with acute kidney injury, the eGFR may not accurately reflect actual GFR. Performed By: #### 2 4323-8 ####[facility]IA [id number] [place] [address] [place] Glucose [Mass/Vol] 115 mg/dL High 74-99 [facility] Comment on above: Order Comment: Darwin schwarz Type: BLOOD SPECIMENOrdering Facility: [facility] Address: [address] [place] [address] Result Comment: The [place] Diabetes [employer] (ADA) provides guidance for cutoff values for fasting glucose and random glucose. The ADA defines fasting as no caloric intake for at least 8 hours. Fasting plasma glucose results between 100 to 125 mg/dL indicate increased risk for diabetes (prediabetes).Fasting plasma glucose results greater than or equal to 126 mg/dL meet the criteria for diagnosis of diabetes. In the absence of unequivocal hyperglycemia, results should be confirmed by repeat testing. In a patient with classic symptoms of hyperglycemia or hyperglycemic crisis, random plasma glucose results greater than or equal to 200 mg/dL meet the criteria for diagnosis of diabetes.Reference: Standards of Medical Care in Diabetes 2016, [place] [employer]. Diabetes Care. 2016.39(Suppl 1). Performed By: #### 2 4323-8 ####[facility]IA [id number] [place] [address] [place] Potassium [Moles/Vol] 3.6 mmol/L Low 3.7-5.1 [facility] Comment on above: Order Comment: Darwin schwarz Type: BLOOD SPECIMENOrdering Facility: [facility] Address: [address] [place] [address] Performed By: #### 2 4323-8 ####[facility] LABCLIA [id number] [place] [address] [place] Protein [Mass/Vol] 5.6 g/dL Low 6.3-8.0 [facility] Comment on above: Order Comment: Speci men Type: BLOOD SPECIMENOrdering Facility: [facility] Address: [address] [place] [address] Performed By: #### 2 4323-8 ####[facility]IA [id number] [place] [address] [place] Sodium [Moles/Vol] 141 mmol/L Normal 136-144 [facility] Comment on above: Order Comment: Speci men Type: BLOOD SPECIMENOrdering Facility: [facility] Address: [address] [place] [address] Performed By: #### 2 4323-8 ####[facility]IA [id number] [place] [address] [place] Urea nitrogen [Mass/Vol] 11 mg/dL Normal 9-24 [facility] Comment on above: Order Comment: Speci men Type: BLOOD SPECIMENOrdering Facility: [facility] Address: [address] [place] [address] Performed By: #### 2 4323-8 ####[facility] [id number] [place] [address] [place] Gas and Carbon monoxide pane l (BldV)on 10-13-2023 Base excess Calc (BldV) [Moles/Vol] 4 mmol/L High 0-2 [facility] Comment on above: Order Comment: Speci men Type: VENOUS BLOOD SPECIMENOrdering Facility: [facility] Address: [address] [place] [address] Performed By: #### 2 4344-4 ####[facility] [id number] [place] [address] [place] Body temperature 98.6 [degF] Normal [facility] Comment on above: Order Comment: Speci men Type: VENOUS BLOOD SPECIMENOrdering Facility: [facility] Address: [address] [place] [address] Performed By: #### 2 4344-4 ####[facility] LABCLIA [id number] [place] [address] [place] Calcium.ionized (Bld) [Mass/Vol] 1.26 mmol/L Normal 1.08-1.30 [facility] Comment on above: Order Comment: Speci men Type: VENOUS BLOOD SPECIMENOrdering Facility: [facility] Address: [address] [place] [address] Performed By: #### 2 4344-4 ####[facility] LABCLIA [id number] [place] [address] [place] Calcium.ionized adjusted to pH 7.4 (BldA) [Moles/Vol] 1.25 mmol/L Normal 1.08-1.30 [facility] Comment on above: Order Comment: Speci men Type: VENOUS BLOOD SPECIMENOrdering Facility: [facility] Address: [address] [place] [address] Performed By: #### 2 4344-4 ####[facility] LABIA [id number] [place] [address] [place] Carboxyhemoglobin (BldV) [Mass fraction] 1.5 % Normal 0.0-2.0 [facility] Comment on above: Order Comment: Speci men Type: VENOUS BLOOD SPECIMENOrdering Facility: [facility] Address: [address] [place] [address] Result Comment: Carb oxyhemoglobin Reference Range for Smokers: 2.0-8.0% Performed By: #### 2 4344-4 ####[facility] LABCLIA [id number] [place] [address] [place] CO2 (BldV) [Partial pressure] 49 mm[Hg] Normal 42-55 [facility] Comment on above: Order Comment: Speci men Type: VENOUS BLOOD SPECIMENOrdering Facility: [facility] Address: [address] [place] [address] Performed By: #### 2 4344-4 ####[facility] LABCLIA [id number] [place] [address] [place] FIO2 35 % Normal [facility] Comment on above: Order Comment: Speci men Type: VENOUS BLOOD SPECIMENOrdering Facility: [facility] Address: [address] [place] [address] Performed By: #### 2 4344-4 ####[facility] LABCLIA [id number] [place] [address] [place] Glucose [Mass/Vol] 117 mg/dL High 60-105 [facility] Comment on above: Order Comment: Speci men Type: VENOUS BLOOD SPECIMENOrdering Facility: [facility] Address: [address] [place] [address] Performed By: #### 2 4344-4 ####[facility] LABCLIA [id number] [place] [address] [place] HCO3 (Bld) [Moles/Vol] 29 mmol/L High 24-28 [facility] Comment on above: Order Comment: Speci men Type: VENOUS BLOOD SPECIMENOrdering Facility: [facility] Address: [address] [place] [address] Performed By: #### 2 4344-4 ####[facility] LABCLIA [id number] [place] [address] [place] Hematocrit (Bld) [Volume fraction] 28.2 % Low 39.0-51.0 [facility] Comment on above: Order Comment: Speci men Type: VENOUS BLOOD SPECIMENOrdering Facility: [facility] Address: [address] [place] [address] Performed By: #### 2 4344-4 ####[facility] LABCLIA [id number] [address] [address] [place] Hemoglobin (Bld) [Mass/Vol] 9.1 g/dL Low 13.0-17.0 [facility] Comment on above: Order Comment: Speci men Type: VENOUS BLOOD SPECIMENOrdering Facility: [facility] Address: [address] [place] [address] Performed By: #### 2 4344-4 ####[facility] LABIA [id number] [place] [address] [place] Lactate [Moles/Vol] 0.8 mmol/L Normal 0.5-2.2 [facility] Comment on above: Order Comment: Speci men Type: VENOUS BLOOD SPECIMENOrdering Facility: [facility] Address: [address] [place] [address] Performed By: #### 2 4344-4 ####[facility] LABIA [id number] [place] [address] [place] Methemoglobin (Bld) [Mass fraction] 0.7 % Normal 0.0-1.5 [facility] Comment on above: Order Comment: Speci men Type: VENOUS BLOOD SPECIMENOrdering Facility: [facility] Address: [address] [place] [address] Performed By: #### 2 4344-4 ####[facility] LABIA [id number] [place] [address] [place] O2 THERAPY Ventilator Normal [facility] Comment on above: Order Comment: Speci men Type: VENOUS BLOOD SPECIMENOrdering Facility: [facility] Address: [address] [place] [address] Performed By: #### 2 4344-4 ####[facility] LABIA [id number] [place] [address] [place] Oxygen (BldV) [Partial pressure] 50 mm[Hg] High 35-45 [facility] Comment on above: Order Comment: Speci men Type: VENOUS BLOOD SPECIMENOrdering Facility: [facility] Address: [address] [place] [id number] Performed By: #### 2 4344-4 ####[facility] LABCLIA [id number] [address] [address] [place] Oxygen saturation in Venous blood 82 % Normal 60-85 [facility] Comment on above: Order Comment: Speci men Type: VENOUS BLOOD SPECIMENOrdering Facility: [facility] Address: [address] [place], [place] [address] Performed By: #### 2 4344-4 ####[facility] LABCLIA [id number] [place] [address] [place] Oxyhemoglobin (BldV) [Mass fraction] 80 % Normal 60-85 [facility] Comment on above: Order Comment: Speci men Type: VENOUS BLOOD SPECIMENOrdering Facility: [facility] Address: [address] [place] [address] Performed By: #### 2 4344-4 ####[facility] LABCLIA [id number] [place] [address] [place] PEEP/CPAP 5 cmH2O Normal [facility] Comment on above: Order Comment: Speci men Type: VENOUS BLOOD SPECIMENOrdering Facility: [facility] Address: [address] [place], [place] [address] Performed By: #### 2 4344-4 ####[facility] LABCLIA [id number] [place] [id number] [place] pH (BldV) 7.39 [pH] Normal 7.32-7.42 [facility] Comment on above: Order Comment: Speci men Type: VENOUS BLOOD SPECIMENOrdering Facility: [facility] Address: [address] [place], [place] [address] Performed By: #### 2 4344-4 ####[facility] LABCLIA [id number] [place] [address] [place] Potassium [Moles/Vol] 3.5 mmol/L Normal 3.5-5.0 [facility] Comment on above: Order Comment: Speci men Type: VENOUS BLOOD SPECIMENOrdering Facility: [facility] Address: [address] [place] [address] Performed By: #### 2 4344-4 ####[facility] LABCLIA [id number] [place] [address] [place] Sodium [Moles/Vol] 140 mmol/L Normal 136-144 [facility] Comment on above: Order Comment: Speci men Type: VENOUS BLOOD SPECIMENOrdering Facility: [facility] Address: [address] [place] [address] Performed By: #### 2 4344-4 ####[facility] LABCLIA [id number] [place] [address] [place] PTT, ANTICOAGULANT THERAPYon 10-13-2023 aPTT Coag (PPP) [Time] 33.6 s High 23.0-32.4 [facility] Comment on above: Order Comment: Speci men Type: BLOOD SPECIMENOrdering Facility: [facility] Address: [address] [place] [address] Performed By: #### P TTAC ####[facility] LABCLIA [id number] [place] [address] [place] TYPE + SCREENon 10-13-2023 ABO A Normal [facility] Comment on above: Order Comment: Speci men Type: BLOOD SPECIMENOrdering Facility: [facility] Address: [address] [place] [address] Performed By: #### T SCR ####[facility] BLOOD BANKCLIA [id number] [place] [address] [place] HISTORICAL AB SCR STATUS Negative Normal [facility] Comment on above: Order Comment: Speci men Type: BLOOD SPECIMENOrdering Facility: [facility] Address: [address] [place] [address] Performed By: #### T SCR ####[facility] B[facility] BANKCLIA [id number] [place] [id number] [place] Rh Nom (Bld) Positive Normal [facility] Comment on above: Order Comment: Speci men Type: BLOOD SPECIMENOrdering Facility: [facility] Address: [address] [place] [address] Performed By: #### T SCR ####[facility] BLO[facility] BANKCLIA [id number] [place] [address] [place] TYPE AND SCREEN EXPIRATION 10/16/2023 23:59 Normal [facility] Comment on above: Order Comment: Speci men Type: BLOOD SPECIMENOrdering Facility: [facility] Address: [address] [place] [address] Performed By: #### T SCR ####[facility] BLOOD BANKCLIA [id number] [place] [id number] [place] aPTT PPPon 10-13-2023 aPTT Coag (PPP) [Time] 88.5 s High 23.0-32.4 [facility] Comment on above: Order Comment: Speci men Type: BLOOD SPECIMENOrdering Facility: [facility] Address: [address] [place] [address] Performed By: #### 1 4979-9 ####[facility] LABCLIA [id number] [place] [id number] [place] aPTT Coag (PPP) [Time] 36.7 s High 23.0-32.4 [facility] Comment on above: Order Comment: Speci men Type: BLOOD SPECIMENOrdering Facility: [facility] Address: [address] [place] [address] Performed By: #### 1 4979-9 ####[facility] LABCLIA [id number] [place] [address] [place] aPTT Coag (PPP) [Time] 33.3 s High 23.0-32.4 [facility] Comment on above: Order Comment: Speci men Type: BLOOD SPECIMENOrdering Facility: [facility] Address: [address] [place] [address] Performed By: #### 1 4979-9 ####[facility] LABCLIA [id number] [place] [address] [place] CBC panel Auto (Bld)on 10-12 Erythrocyte distribution width (RBC) [Ratio] 18.3 % High 11.5-15.0 [facility] Comment on above: Order Comment: Speci men Type: BLOOD SPECIMENOrdering Facility: [facility] Address: [address] [place] [address] Performed By: #### 5 8410-2 ####[facility] LABCLIA [id number] [place] [address] [place] Hematocrit (Bld) [Volume fraction] 30.4 % Low 39.0-51.0 [facility] Comment on above: Order Comment: Speci men Type: BLOOD SPECIMENOrdering Facility: [facility] Address: [address] [place] [address] Performed By: #### 5 8410-2 ####[facility] LABCLIA [id number] [place] [address] [place] Hemoglobin (Bld) [Mass/Vol] 8.7 g/dL Low 13.0-17.0 [facility] Comment on above: Order Comment: Speci men Type: BLOOD SPECIMENOrdering Facility: [facility] Address: [address] [place] [address] Performed By: #### 5 8410-2 ####[facility] LABCLIA [id number] [place] [address] [place] MCH (RBC) [Entitic mass] 24.4 pg Low 26.0-34.0 [facility] Comment on above: Order Comment: Speci men Type: BLOOD SPECIMENOrdering Facility: [facility] Address: [address] [place] [address] Performed By: #### 5 8410-2 ####[facility] LABIA [id number] [place] [address] [place] MCHC (RBC) [Mass/Vol] 28.6 g/dL Low 30.5-36.0 [facility] Comment on above: Order Comment: Speci men Type: BLOOD SPECIMENOrdering Facility: [facility] Address: [address] [place] [address] Performed By: #### 5 8410-2 ####[facility] [id number] [place] [address] [place] MCV (RBC) [Entitic vol] 85.4 fL Normal 80.0-100.0 [facility] Comment on above: Order Comment: Speci men Type: BLOOD SPECIMENOrdering Facility: [facility] Address: [address] [place] [address] Performed By: #### 5 8410-2 ####[facility] [id number] [place] [address] [place] Nucleated RBC (Bld) [#/Vol] 10*3/uL Normal <0.01 [facility] Comment on above: Order Comment: Speci men Type: BLOOD SPECIMENOrdering Facility: [facility] Address: [address] [place] [address] Performed By: #### 5 8410-2 ####[facility] LABROCKING[facility] [id number] [place] [address] [place] Platelet mean volume (Bld) [Entitic vol] 11.0 fL Normal 9.0-12.7 [facility] Comment on above: Order Comment: Speci men Type: BLOOD SPECIMENOrdering Facility: [facility] Address: [address] [place] [address] Performed By: #### 5 8410-2 ####[facility] LABCLIA [id number] [address] [address] [place] Platelets (Bld) [#/Vol] 467 10*3/uL High 150-400 [facility] Comment on above: Order Comment: Speci men Type: BLOOD SPECIMENOrdering Facility: [facility] Address: [address] [place] [address] Performed By: #### 5 8410-2 ####[facility] LABIA [id number] [place] [address] [place] RBC (Bld) [#/Vol] 3.56 10*6/uL Low 4.20-6.00 [facility] Comment on above: Order Comment: Speci men Type: BLOOD SPECIMENOrdering Facility: [facility] Address: [address] [place] [address] Performed By: #### 5 8410-2 ####[facility] LABIA [id number] [place] [address] [place] WBC (Bld) [#/Vol] 9.91 10*3/uL Normal 3.70-11.00 [facility] Comment on above: Order Comment: Speci men Type: BLOOD SPECIMENOrdering Facility: [facility] Address: [address] [place] [address] Performed By: #### 5 8410-2 ####[facility] LABIA [id number] [place] [id number] [place] CONSULTon 10-12-2023 CONSULT Normal [facility] Comp Metab 2000 Pnl SerPlon 10-12-2023 Sodium [Moles/Vol] 143 mmol/L Normal 136-144 [facility] Comment on above: Order Comment: Speci men Type: BLOOD SPECIMENOrdering Facility: [facility] Address: [address] [place] [address] Performed By: #### 2 4323-8 ####[facility] LABCLIA [id number] [place] [address] [place] Order Comment: Speci men Type: VENOUS BLOOD SPECIMENOrdering Facility: [facility] Address: [address] [place] [address] Performed By: #### 2 4344-4 ####[facility] LABCLIA [id number] [place] [address] [place] Comprehensive metabolic 2000 panelon 10-12-2023 Albumin [Mass/Vol] 2.7 g/dL Low 3.9-4.9 [facility] Comment on above: Order Comment: Speci men Type: BLOOD SPECIMENOrdering Facility: [facility] Address: [address] [place] [address] Performed By: #### 2 4323-8 ####[facility] LABIA [id number] [place] [address] [place] ALP [Catalytic activity/Vol] 222 U/L High 38-113 [facility] Comment on above: Order Comment: Speci men Type: BLOOD SPECIMENOrdering Facility: [facility] Address: [address] [place] [address] Performed By: #### 2 4323-8 ####[facility] LABIA [id number] [place] [address] [place] ALT [Catalytic activity/Vol] 22 U/L Normal 10-54 [facility] Comment on above: Order Comment: Speci men Type: BLOOD SPECIMENOrdering Facility: [facility] Address: [address] [place] [address] Performed By: #### 2 4323-8 ####[facility] LABCLIA [id number] [place] [address] [place] Anion gap [Moles/Vol] 11 mmol/L Normal 9-18 [facility] Comment on above: Order Comment: Speci men Type: BLOOD SPECIMENOrdering Facility: [facility] Address: [address] [place] [id number] Performed By: #### 2 4323-8 ####[facility] LABCLIA [id number] [place] [address] [place] AST [Catalytic activity/Vol] 11 U/L Low 14-40 [facility] Comment on above: Order Comment: Speci men Type: BLOOD SPECIMENOrdering Facility: [facility] Address: [address] [place] [address] Performed By: #### 2 4323-8 ####[facility] LABCLIA [id number] [place] [address] [place] Bilirubin [Mass/Vol] 0.2 mg/dL Normal 0.2-1.3 [facility] Comment on above: Order Comment: Speci men Type: BLOOD SPECIMENOrdering Facility: [facility] Address: [address] [place] [address] Performed By: #### 2 4323-8 ####[facility] LABCLIA [id number] [place] [address] [place] Calcium [Mass/Vol] 9.2 mg/dL Normal 8.5-10.2 [facility] Comment on above: Order Comment: Speci men Type: BLOOD SPECIMENOrdering Facility: [facility] Address: [address] [place] [address] Performed By: #### 2 4323-8 ####[facility] LABCLIA [id number] [place] [address] [place] Chloride [Moles/Vol] 107 mmol/L High 97-105 [facility] Comment on above: Order Comment: Speci men Type: BLOOD SPECIMENOrdering Facility: [facility] Address: [address] [place] [address] Performed By: #### 2 4323-8 ####[facility] LABCLIA [id number] [place] [address] [place] CO2 [Moles/Vol] 25 mmol/L Normal 22-30 [facility] Comment on above: Order Comment: Speci men Type: BLOOD SPECIMENOrdering Facility: [facility] Address: [address] [place] [address] Performed By: #### 2 4323-8 ####[facility] LABCLIA [id number] [place] [address] [place] Creatinine [Mass/Vol] 0.53 mg/dL Low 0.73-1.22 [facility] Comment on above: Order Comment: Speci men Type: BLOOD SPECIMENOrdering Facility: [facility] Address: [address] [place] [address] Performed By: #### 2 4323-8 ####[facility] LABCLIA [id number] [place] [address] [place] Creatinine and Glomerular filtration rate.predicted panel (S/P/Bld) 131 mL/min/1.73m??? Normal >=60 [facility] Comment on above: Order Comment: Speci men Type: BLOOD SPECIMENOrdering Facility: [facility] Address: [address] [place] [address] Result Comment: Rae mated Glomerular Filtration Rate (eGFR) is calculated using the 2020 CKD-EPI creatinine equation. This equation utilizes serum creatinine, sex, and age as parameters. The creatinine assay has traceable calibration to isotope dilution-mass spectrometry. Refer to KDIGO guidelines for clinical interpretation. In patients with unstable renal function, e.g. those with acute kidney injury, the eGFR may not accurately reflect actual GFR. Performed By: #### 2 4323-8 ####[facility] LABCLIA [id number] [place] [address] [place] Glucose [Mass/Vol] 102 mg/dL High 74-99 [facility] Comment on above: Order Comment: Speci men Type: BLOOD SPECIMENOrdering Facility: [facility] Address: [address] [place] [address] Result Comment: The [place] [employer] (ADA) provides guidance for cutoff values for fasting glucose and random glucose. The ADA defines fasting as no caloric intake for at least 8 hours. Fasting plasma glucose results between 100 to 125 mg/dL indicate increased risk for diabetes (prediabetes).Fasting plasma glucose results greater than or equal to 126 mg/dL meet the criteria for diagnosis of diabetes. In the absence of unequivocal hyperglycemia, results should be confirmed by repeat testing. In a patient with classic symptoms of hyperglycemia or hyperglycemic crisis, random plasma glucose results greater than or equal to 200 mg/dL meet the criteria for diagnosis of diabetes.Reference: Standards of Medical Care in Diabetes 2016, [place] [employer]. Diabetes Care. 2016.39(Suppl 1). Performed By: #### 2 4323-8 ####[facility] LABCLIA [id number] [place] [address] [place] Potassium [Moles/Vol] 3.3 mmol/L Low 3.7-5.1 [facility] Comment on above: Order Comment: Speci men Type: BLOOD SPECIMENOrdering Facility: [facility] Address: [address] [place] [address] Performed By: #### 2 4323-8 ####[facility] LABCLIA [id number] [place] [address] [place] Protein [Mass/Vol] 5.8 g/dL Low 6.3-8.0 [facility] Comment on above: Order Comment: Speci men Type: BLOOD SPECIMENOrdering Facility: [facility] Address: [address] [place] [address] Performed By: #### 2 4323-8 ####[facility] LABCLIA [id number] [place] [address] [place] Urea nitrogen [Mass/Vol] 10 mg/dL Normal 9-24 [facility] Comment on above: Order Comment: Speci men Type: BLOOD SPECIMENOrdering Facility: [facility] Address: [address] [place] [address] Performed By: #### 2 4323-8 ####[facility] LABCLIA [id number] [place] [address] [place] Gas and Carbon monoxide pane l (BldV)on 10-12-2023 Base excess Calc (BldV) [Moles/Vol] 3 mmol/L High 0-2 [facility] Comment on above: Order Comment: Speci men Type: VENOUS BLOOD SPECIMENOrdering Facility: [facility] Address: [address] [place] [address] Performed By: #### 2 4344-4 ####[facility] [id number] [place] [address] [place] Body temperature 98.24 [degF] Normal [facility] Comment on above: Order Comment: Speci men Type: VENOUS BLOOD SPECIMENOrdering Facility: [facility] Address: [address] [place] [address] Performed By: #### 2 4344-4 ####[facility] [id number] [place] [address] [place] Calcium.ionized (Bld) [Mass/Vol] 1.26 mmol/L Normal 1.08-1.30 [facility] Comment on above: Order Comment: Speci men Type: VENOUS BLOOD SPECIMENOrdering Facility: [facility] Address: [address] [place] [address] Performed By: #### 2 4344-4 ####[facility] [facility] [id number] [place] [address] [place] Calcium.ionized adjusted to pH 7.4 (BldA) [Moles/Vol] 1.29 mmol/L Normal 1.08-1.30 [facility] Comment on above: Order Comment: Speci men Type: VENOUS BLOOD SPECIMENOrdering Facility: [facility] Address: [address] [place] [address] Performed By: #### 2 4344-4 ####[facility] [id number] [place] [address] [place] Carboxyhemoglobin (BldV) [Mass fraction] 1.8 % Normal 0.0-2.0 [facility] Comment on above: Order Comment: Speci men Type: VENOUS BLOOD SPECIMENOrdering Facility: [facility] Address: [address] [place] [address] Result Comment: Carb oxyhemoglobin Reference Range for Smokers: 2.0-8.0% Performed By: #### 2 4344-4 ####[facility] LABCLIA [id number] [place] [address] [place] CO2 (BldV) [Partial pressure] 41 mm[Hg] Low 42-55 [facility] Comment on above: Order Comment: Speci men Type: VENOUS BLOOD SPECIMENOrdering Facility: [facility] Address: [address] [place] [address] Performed By: #### 2 4344-4 ####[facility] LABCLIA [id number] [address] [place] CO2 adjusted to patient's actual temperature (BldV) [Partial pressure] 41 mmHg Low 42-55 [facility] Comment on above: Order Comment: Speci men Type: VENOUS BLOOD SPECIMENOrdering Facility: [facility] Address: [address] [place] [address] Performed By: #### 2 4344-4 ####[facility] LABCL[facility] [id number] [place] [address] [place] FIO2 35 % Normal [facility] Comment on above: Order Comment: Speci men Type: VENOUS BLOOD SPECIMENOrdering Facility: [facility] Address: [address] [place] [address] Performed By: #### 2 4344-4 ####[facility] LABCL[facility] [id number] [place] [address] [place] Glucose [Mass/Vol] 107 mg/dL High 60-105 [facility] Comment on above: Order Comment: Speci men Type: VENOUS BLOOD SPECIMENOrdering Facility: [facility] Address: [address] [place] [address] Performed By: #### 2 4344-4 ####[facility] LABCL[facility] [id number] [place] [address] [place] HCO3 (Bld) [Moles/Vol] 27 mmol/L Normal 24-28 [facility] Comment on above: Order Comment: Speci men Type: VENOUS BLOOD SPECIMENOrdering Facility: [facility] Address: [address] [place] [address] Performed By: #### 2 4344-4 ####[facility] LABCL[facility] [id number] [place] [address] [place] Hematocrit (Bld) [Volume fraction] 28.4 % Low 39.0-51.0 [facility] Comment on above: Order Comment: Speci men Type: VENOUS BLOOD SPECIMENOrdering Facility: [facility] Address: [address] [place] [address] Performed By: #### 2 4344-4 ####[facility] LABCL[facility] [id number] [place] [address] [place] Hemoglobin (Bld) [Mass/Vol] 9.1 g/dL Low 13.0-17.0 [facility] Comment on above: Order Comment: Speci men Type: VENOUS BLOOD SPECIMENOrdering Facility: [facility] Address: [address] [place] [address] Performed By: #### 2 4344-4 ####[facility] LABCLIA [id number] [place] [address] [place] Lactate [Moles/Vol] 0.8 mmol/L Normal 0.5-2.2 [facility] Comment on above: Order Comment: Speci men Type: VENOUS BLOOD SPECIMENOrdering Facility: [facility] Address: [address] [place] [address] Performed By: #### 2 4344-4 ####[facility] LABCLIA [id number] [address] [address] [place] Methemoglobin (Bld) [Mass fraction] 0.9 % Normal 0.0-1.5 [facility] Comment on above: Order Comment: Speci men Type: VENOUS BLOOD SPECIMENOrdering Facility: [facility] Address: [address] [place], [place] [address] Performed By: #### 2 4344-4 ####[facility] LABCLIA [id number] [place] [id number] [place] O2 THERAPY Ventilator Normal [facility] Comment on above: Order Comment: Speci men Type: VENOUS BLOOD SPECIMENOrdering Facility: [facility] Address: [address] [place] [address] Performed By: #### 2 4344-4 ####[facility] LABCLIA [id number] [place] [address] [place] Oxygen (BldV) [Partial pressure] 58 mm[Hg] High 35-45 [facility] Comment on above: Order Comment: Speci men Type: VENOUS BLOOD SPECIMENOrdering Facility: [facility] Address: [address] [place], [place] [address] Performed By: #### 2 4344-4 ####[facility] LABCLIA [id number] [place] [address] [place] Oxygen adjusted to patient's actual temperature (BldV) [Partial pressure] 57 mmHg High 35-45 [facility] Comment on above: Order Comment: Speci men Type: VENOUS BLOOD SPECIMENOrdering Facility: [facility] Address: [address] [place], [place] [address] Performed By: #### 2 4344-4 ####[facility] LABCL[facility] [id number] [address] [address] [place] Oxygen saturation in Venous blood 90 % High 60-85 [facility] Comment on above: Order Comment: Speci men Type: VENOUS BLOOD SPECIMENOrdering Facility: [facility] Address: [address] [place] [id number] Performed By: #### 2 4344-4 ####[facility] LABCL[facility] [id number] [place] [address] [place] Oxyhemoglobin (BldV) [Mass fraction] 87 % High 60-85 [facility] Comment on above: Order Comment: Speci men Type: VENOUS BLOOD SPECIMENOrdering Facility: [facility] Address: [address] [place] [address] Performed By: #### 2 4344-4 ####[facility]CL[facility] [id number] [place] [address] [place] PEEP/CPAP 5 cmH2O Normal [facility] Comment on above: Order Comment: Speci men Type: VENOUS BLOOD SPECIMENOrdering Facility: [facility] Address: [address] [place] [address] Performed By: #### 2 4344-4 ####[facility] LABCLIA [id number] [place] [address] [place] pH (BldV) 7.44 [pH] High 7.32-7.42 [facility] Comment on above: Order Comment: Speci men Type: VENOUS BLOOD SPECIMENOrdering Facility: [facility] Address: [address] [place], [place] [address] Performed By: #### 2 4344-4 ####[facility] LABCLIA [id number] [place] [id number] [place] pH adjusted to patient's actual temperature (BldV) 7.44 High 7.32-7.42 [facility] Comment on above: Order Comment: Speci men Type: VENOUS BLOOD SPECIMENOrdering Facility: [facility] Address: [address] [place], [place] [address] Performed By: #### 2 4344-4 ####[facility] LABCL[facility] [id number] [place] [address] [place] Potassium [Moles/Vol] 3.2 mmol/L Low 3.5-5.0 [facility] Comment on above: Order Comment: Speci men Type: VENOUS BLOOD SPECIMENOrdering Facility: [facility] Address: [address] [place] [address] Performed By: #### 2 4344-4 ####[facility] LABIA [id number] [place] [address] [place] PTT, ANTICOAGULANT THERAPYon 10-12-2023 aPTT Coag (PPP) [Time] 50.1 s High 23.0-32.4 [facility] Comment on above: Order Comment: Speci men Type: BLOOD SPECIMENOrdering Facility: [facility] Address: [address] [place] [address] Performed By: #### P TTAC ####[facility] LABCL[facility] [id number] [address] [place] [facility] aPTT Coag (PPP) [Time] 55.6 s High 23.0-32.4 [facility] Comment on above: Order Comment: Speci men Type: BLOOD SPECIMENOrdering Facility: [facility] Address: [address] [place] [address] Performed By: #### P TTAC ####[facility] LABIA [id number] [place] [address] [place] THERAPY NTon 10-12-2023 THERAPY NT Normal [facility] aPTT PPPon 10-12-2023 aPTT Coag (PPP) [Time] 56.1 s High 23.0-32.4 [facility] Comment on above: Order Comment: Speci men Type: BLOOD SPECIMENOrdering Facility: [facility] Address: [address] [place] [address] Performed By: #### 1 4979-9 ####[facility]CL[facility] [id number] [place] [address] [place] CBC panel Auto (Bld)on 10-11 Erythrocyte distribution width (RBC) [Ratio] 18.3 % High 11.5-15.0 [facility] Comment on above: Order Comment: Speci men Type: BLOOD SPECIMENOrdering Facility: [facility] Address: [address] [place] [address] Performed By: #### 5 8410-2 ####[facility] LABCL[facility] [id number] [place] [address] [place] Hematocrit (Bld) [Volume fraction] 33.0 % Low 39.0-51.0 [facility] Comment on above: Order Comment: Speci men Type: BLOOD SPECIMENOrdering Facility: [facility] Address: [address] [place] [address] Performed By: #### 5 8410-2 ####[facility] LABCL[facility] [id number] [address] [place] Hemoglobin (Bld) [Mass/Vol] 9.7 g/dL Low 13.0-17.0 [facility] Comment on above: Order Comment: Speci men Type: BLOOD SPECIMENOrdering Facility: [facility] Address: [address] [place] [address] Performed By: #### 5 8410-2 ####[facility] LABIA [id number] [place] [address] [place] MCH (RBC) [Entitic mass] 25.2 pg Low 26.0-34.0 [facility] Comment on above: Order Comment: Speci men Type: BLOOD SPECIMENOrdering Facility: [facility] Address: [address] [place] [address] Performed By: #### 5 8410-2 ####[facility]CL[facility] [id number] [place] [address] [place] MCHC (RBC) [Mass/Vol] 29.4 g/dL Low 30.5-36.0 [facility] Comment on above: Order Comment: Speci men Type: BLOOD SPECIMENOrdering Facility: [facility] Address: [address] [place] [address] Performed By: #### 5 8410-2 ####[facility] LABIA [id number] [place] [address] [place] MCV (RBC) [Entitic vol] 85.7 fL Normal 80.0-100.0 [facility] Comment on above: Order Comment: Speci men Type: BLOOD SPECIMENOrdering Facility: [facility] Address: [address] [place] [address] Performed By: #### 5 8410-2 ####[facility] [id number] [place] [address] [place] Nucleated RBC (Bld) [#/Vol] 10*3/uL Normal <0.01 [facility] Comment on above: Order Comment: Speci men Type: BLOOD SPECIMENOrdering Facility: [facility] Address: [address] [place] [address] Performed By: #### 5 8410-2 ####[facility] [id number] [place] [address] [place] Platelet mean volume (Bld) [Entitic vol] 11.1 fL Normal 9.0-12.7 [facility] Comment on above: Order Comment: Speci men Type: BLOOD SPECIMENOrdering Facility: [facility] Address: [address] [place] [address] Performed By: #### 5 8410-2 ####[facility] LABIA [id number] [place] [address] [place] Platelets (Bld) [#/Vol] 443 10*3/uL High 150-400 [facility] Comment on above: Order Comment: Speci men Type: BLOOD SPECIMENOrdering Facility: [facility] Address: [address] [place] [address] Performed By: #### 5 8410-2 ####[facility] LABCLIA [id number] [place] [address] [place] RBC (Bld) [#/Vol] 3.85 10*6/uL Low 4.20-6.00 [facility] Comment on above: Order Comment: Speci men Type: BLOOD SPECIMENOrdering Facility: [facility] Address: [address] [place] [address] Performed By: #### 5 8410-2 ####[facility] LABIA [id number] [place] [address] [place] WBC (Bld) [#/Vol] 9.74 10*3/uL Normal 3.70-11.00 [facility] Comment on above: Order Comment: Speci men Type: BLOOD SPECIMENOrdering Facility: [facility] Address: [address] [place] [address] Performed By: #### 5 8410-2 ####[facility] LABIA [id number] [place] [address] [place] CONSULTon 10-11-2023 CONSULT Normal [facility] CONSULT PROGon 10-11-2023 CONSULT PROG Normal [facility] CT ABD/PEL W IVCONon 024 CT ABD/PEL W IVCON Invalid Interpretation Code [facility] Comprehensive metabolic 2000 panelon 10-11-2023 Albumin [Mass/Vol] 2.9 g/dL Low 3.9-4.9 [facility] Comment on above: Order Comment: Speci men Type: BLOOD SPECIMENOrdering Facility: [facility] Address: [address] [place] [address] Performed By: #### 2 4323-8 ####[facility] LABIA [id number] [place] [address] [place] ALP [Catalytic activity/Vol] 250 U/L High 38-113 [facility] Comment on above: Order Comment: Speci men Type: BLOOD SPECIMENOrdering Facility: [facility] Address: [address] [place] [id number] Performed By: #### 2 4323-8 ####[facility] LABCLIA [id number] [place] [address] [place] ALT [Catalytic activity/Vol] 22 U/L Normal 10-54 [facility] Comment on above: Order Comment: Speci men Type: BLOOD SPECIMENOrdering Facility: [facility] Address: [address] [place] [address] Performed By: #### 2 4323-8 ####[facility] LABCLIA [id number] [place] [address] [place] Anion gap [Moles/Vol] 12 mmol/L Normal 9-18 [facility] Comment on above: Order Comment: Speci men Type: BLOOD SPECIMENOrdering Facility: [facility] Address: [address] [place] [address] Performed By: #### 2 4323-8 ####[facility] LABCLIA [id number] [place] [address] [place] AST [Catalytic activity/Vol] 12 U/L Low 14-40 [facility] Comment on above: Order Comment: Speci men Type: BLOOD SPECIMENOrdering Facility: [facility] Address: [address] [place], [place] [address] Performed By: #### 2 4323-8 ####[facility] LABCLIA [id number] [place] [address] [place] Bilirubin [Mass/Vol] 0.4 mg/dL Normal 0.2-1.3 [facility] Comment on above: Order Comment: Speci men Type: BLOOD SPECIMENOrdering Facility: [facility] Address: [address] [place], [place] [address] Performed By: #### 2 4323-8 ####[facility] LABCLIA [id number] [place] [address] [place] Calcium [Mass/Vol] 9.4 mg/dL Normal 8.5-10.2 [facility] Comment on above: Order Comment: Speci men Type: BLOOD SPECIMENOrdering Facility: [facility] Address: [address] [place] [address] Performed By: #### 2 4323-8 ####[facility] LABCLIA [id number] [place] [address] [place] Chloride [Moles/Vol] 109 mmol/L High 97-105 [facility] Comment on above: Order Comment: Speci men Type: BLOOD SPECIMENOrdering Facility: [facility] Address: [address] [place] [address] Performed By: #### 2 4323-8 ####[facility] LABCLIA [id number] [place] [address] [place] CO2 [Moles/Vol] 23 mmol/L Normal 22-30 [facility] Comment on above: Order Comment: Speci men Type: BLOOD SPECIMENOrdering Facility: [facility] Address: [address] [place] [address] Performed By: #### 2 4323-8 ####[facility]CL[facility] [id number] [place] [address] [place] Creatinine [Mass/Vol] 0.52 mg/dL Low 0.73-1.22 [facility] Comment on above: Order Comment: Speci men Type: BLOOD SPECIMENOrdering Facility: [facility] Address: [address] [place] [address] Performed By: #### 2 4323-8 ####[facility] LABCL[facility] [id number] [place] [address] [place] Creatinine and Glomerular filtration rate.predicted panel (S/P/Bld) 131 mL/min/1.73m??? Normal >=60 [facility] Comment on above: Order Comment: Speci men Type: BLOOD SPECIMENOrdering Facility: [facility] Address: [address] [place] [address] Result Comment: Rae mated Glomerular Filtration Rate (eGFR) is calculated using the 2020 CKD-EPI creatinine equation. This equation utilizes serum creatinine, sex, and age as parameters. The creatinine assay has traceable calibration to isotope dilution-mass spectrometry. Refer to KDIGO guidelines for clinical interpretation. In patients with unstable renal function, e.g. those with acute kidney injury, the eGFR may not accurately reflect actual GFR. Performed By: #### 2 4323-8 ####[facility] LABIA [id number] [place] [address] [place] Glucose [Mass/Vol] 94 mg/dL Normal 74-99 [facility] Comment on above: Order Comment: Darwin schwarz Type: BLOOD SPECIMENOrdering Facility: [facility] Address: [address] [place] [address] Result Comment: The [place] [employer] (ADA) provides guidance for cutoff values for fasting glucose and random glucose. The ADA defines fasting as no caloric intake for at least 8 hours. Fasting plasma glucose results between 100 to 125 mg/dL indicate increased risk for diabetes (prediabetes).Fasting plasma glucose results greater than or equal to 126 mg/dL meet the criteria for diagnosis of diabetes. In the absence of unequivocal hyperglycemia, results should be confirmed by repeat testing. In a patient with classic symptoms of hyperglycemia or hyperglycemic crisis, random plasma glucose results greater than or equal to 200 mg/dL meet the criteria for diagnosis of diabetes.Reference: Standards of Medical Care in Diabetes 2016, [place] [employer]. Diabetes Care. 2016.39(Suppl 1). Performed By: #### 2 4323-8 ####[facility] LABIA [id number] [place] [id number] [place] Potassium [Moles/Vol] 4.0 mmol/L Normal 3.7-5.1 [facility] Comment on above: Order Comment: Darwin schwarz Type: BLOOD SPECIMENOrdering Facility: [facility] Address: [address] [place] [address] Performed By: #### 2 4323-8 ####[facility] LABCLIA [id number] [place] [address] [place] Protein [Mass/Vol] 6.0 g/dL Low 6.3-8.0 [facility] Comment on above: Order Comment: Speci men Type: BLOOD SPECIMENOrdering Facility: [facility] Address: [address] [place] [address] Performed By: #### 2 4323-8 ####[facility] LABCLIA [id number] [place] [address] [place] Sodium [Moles/Vol] 144 mmol/L Normal 136-144 [facility] Comment on above: Order Comment: Speci men Type: BLOOD SPECIMENOrdering Facility: [facility] Address: [address] [place] [address] Performed By: #### 2 4323-8 ####[facility] LABIA [id number] [place] [address] [place] Urea nitrogen [Mass/Vol] 10 mg/dL Normal 9-24 [facility] Comment on above: Order Comment: Speci men Type: BLOOD SPECIMENOrdering Facility: [facility] Address: [address] [place] [address] Performed By: #### 2 4323-8 ####[facility] LABIA [id number] [place] [address] [place] Gas and Carbon monoxide pane l (BldV)on 10-11-2023 Base excess Calc (BldV) [Moles/Vol] 3 mmol/L High 0-2 [facility] Comment on above: Order Comment: Speci men Type: VENOUS BLOOD SPECIMENOrdering Facility: [facility] Address: [address] [place] [address] Performed By: #### 2 4344-4 ####[facility] LABCLIA [id number] [id number] [address] [place] Body temperature 98.96 [degF] Normal [facility] Comment on above: Order Comment: Speci men Type: VENOUS BLOOD SPECIMENOrdering Facility: [facility] Address: [address] [place] [address] Performed By: #### 2 4344-4 ####[facility] LABCLIA [id number] [place] [address] [place] Calcium.ionized (Bld) [Mass/Vol] 1.26 mmol/L Normal 1.08-1.30 [facility] Comment on above: Order Comment: Speci men Type: VENOUS BLOOD SPECIMENOrdering Facility: [facility] Address: [address] [place] [address] Performed By: #### 2 4344-4 ####[facility] LABCLIA [id number] [place] [address] [place] Calcium.ionized adjusted to pH 7.4 (BldA) [Moles/Vol] 1.29 mmol/L Normal 1.08-1.30 [facility] Comment on above: Order Comment: Speci men Type: VENOUS BLOOD SPECIMENOrdering Facility: [facility] Address: [address] [place] [address] Performed By: #### 2 4344-4 ####[facility] LABIA [id number] [place] [address] [place] Carboxyhemoglobin (BldV) [Mass fraction] 1.7 % Normal 0.0-2.0 [facility] Comment on above: Order Comment: Speci men Type: VENOUS BLOOD SPECIMENOrdering Facility: [facility] Address: [address] [place] [address] Result Comment: Carb oxyhemoglobin Reference Range for Smokers: 2.0-8.0% Performed By: #### 2 4344-4 ####[facility] LABCLIA [id number] [place] [address] [place] CO2 (BldV) [Partial pressure] 41 mm[Hg] Low 42-55 [facility] Comment on above: Order Comment: Speci men Type: VENOUS BLOOD SPECIMENOrdering Facility: [facility] Address: [address] [id number] Performed By: #### 2 4344-4 ####[facility] LABCLIA [id number] [address] [address] [place] CO2 adjusted to patient's actual temperature (BldV) [Partial pressure] 41 mmHg Low 42-55 [facility] Comment on above: Order Comment: Speci men Type: VENOUS BLOOD SPECIMENOrdering Facility: [facility] Address: [address] [place], [place] [address] Performed By: #### 2 4344-4 ####[facility] LABCLIA [id number] [place] [address] [place] FIO2 35 % Normal [facility] Comment on above: Order Comment: Speci men Type: VENOUS BLOOD SPECIMENOrdering Facility: [facility] Address: [address] [place], [place] [address] Performed By: #### 2 4344-4 ####[facility] LABCLIA [id number] [place] [address] [place] Glucose [Mass/Vol] 98 mg/dL Normal 60-105 [facility] Comment on above: Order Comment: Speci men Type: VENOUS BLOOD SPECIMENOrdering Facility: [facility] Address: [address] [id number] Performed By: #### 2 4344-4 ####[facility] LABCLIA [id number] [address] [address] [place] HCO3 (Bld) [Moles/Vol] 27 mmol/L Normal 24-28 [facility] Comment on above: Order Comment: Speci men Type: VENOUS BLOOD SPECIMENOrdering Facility: [facility] Address: [address] [id number] Performed By: #### 2 4344-4 ####[facility] LABCLIA [id number] [place] [address] [place] Hematocrit (Bld) [Volume fraction] 30.0 % Low 39.0-51.0 [facility] Comment on above: Order Comment: Speci men Type: VENOUS BLOOD SPECIMENOrdering Facility: [facility] Address: [address] [place] [address] Performed By: #### 2 4344-4 ####[facility] LABIA [id number] [place] [address] [place] Hemoglobin (Bld) [Mass/Vol] 9.7 g/dL Low 13.0-17.0 [facility] Comment on above: Order Comment: Speci men Type: VENOUS BLOOD SPECIMENOrdering Facility: [facility] Address: [address] [place] [address] Performed By: #### 2 4344-4 ####[facility] LABIA [id number] [place] [address] [place] Lactate [Moles/Vol] 0.8 mmol/L Normal 0.5-2.2 [facility] Comment on above: Order Comment: Speci men Type: VENOUS BLOOD SPECIMENOrdering Facility: [facility] Address: [address] [place] [address] Performed By: #### 2 4344-4 ####[facility] LABIA [id number] [place] [address] [place] Methemoglobin (Bld) [Mass fraction] 1.1 % Normal 0.0-1.5 [facility] Comment on above: Order Comment: Speci men Type: VENOUS BLOOD SPECIMENOrdering Facility: [facility] Address: [address] [place] [address] Performed By: #### 2 4344-4 ####[facility] LABIA [id number] [place] [address] [place] O2 THERAPY Ventilator Normal [facility] Comment on above: Order Comment: Speci men Type: VENOUS BLOOD SPECIMENOrdering Facility: [facility] Address: [address] [place] [address] Performed By: #### 2 4344-4 ####[facility] LABCLIA [id number] [address] [address] [place] Oxygen (BldV) [Partial pressure] 70 mm[Hg] High 35-45 [facility] Comment on above: Order Comment: Speci men Type: VENOUS BLOOD SPECIMENOrdering Facility: [facility] Address: [address] [place] [address] Performed By: #### 2 4344-4 ####[facility] LABCLIA [id number] [address] [address] [place] Oxygen adjusted to patient's actual temperature (BldV) [Partial pressure] 71 mmHg High 35-45 [facility] Comment on above: Order Comment: Speci men Type: VENOUS BLOOD SPECIMENOrdering Facility: [facility] Address: [address] [place] [address] Performed By: #### 2 4344-4 ####[facility] LABCLIA [id number] [address] [address] [place] Oxygen saturation in Venous blood 95 % High 60-85 [facility] Comment on above: Order Comment: Speci men Type: VENOUS BLOOD SPECIMENOrdering Facility: [facility] Address: [address] [place] [address] Performed By: #### 2 4344-4 ####[facility] LABCLIA [id number] [address] [address] [place] Oxyhemoglobin (BldV) [Mass fraction] 92 % High 60-85 [facility] Comment on above: Order Comment: Speci men Type: VENOUS BLOOD SPECIMENOrdering Facility: [facility] Address: [address] [place] [address] Performed By: #### 2 4344-4 ####[facility] LABCLIA [id number] [place] [address] [place] PEEP/CPAP 5 cmH2O Normal [facility] Comment on above: Order Comment: Speci men Type: VENOUS BLOOD SPECIMENOrdering Facility: [facility] Address: [address] [place] [address] Performed By: #### 2 4344-4 ####[facility] LABCLIA [id number] [place] [address] [place] pH (BldV) 7.44 [pH] High 7.32-7.42 [facility] Comment on above: Order Comment: Speci men Type: VENOUS BLOOD SPECIMENOrdering Facility: [facility] Address: [address] [place] [address] Performed By: #### 2 4344-4 ####[facility] LABCLIA [id number] [place] [address] [place] pH adjusted to patient's actual temperature (BldV) 7.43 High 7.32-7.42 [facility] Comment on above: Order Comment: Speci men Type: VENOUS BLOOD SPECIMENOrdering Facility: [facility] Address: [address] [place] [address] Performed By: #### 2 4344-4 ####[facility] LABIA [id number] [place] [address] [place] Potassium [Moles/Vol] 4.3 mmol/L Normal 3.5-5.0 [facility] Comment on above: Order Comment: Speci men Type: VENOUS BLOOD SPECIMENOrdering Facility: [facility] Address: [address] [place] [address] Performed By: #### 2 4344-4 ####[facility] LABCLIA [id number] [place] [address] [place] Sodium [Moles/Vol] 143 mmol/L Normal 136-144 [facility] Comment on above: Order Comment: Speci men Type: VENOUS BLOOD SPECIMENOrdering Facility: [facility] Address: [address] [place] [address] Performed By: #### 2 4344-4 ####[facility] LABIA [id number] [address] [id number] [place] NUTRITIONon 10-11-2023 NUTRITION Normal [facility] PTT, ANTICOAGULANT THERAPYon 10-11-2023 aPTT Coag (PPP) [Time] 24.9 s Normal 23.0-32.4 [facility] Comment on above: Order Comment: Speci men Type: BLOOD SPECIMENOrdering Facility: [facility] Address: [address] [place] [address] Performed By: #### P TTAC ####[facility] LABIA [id number] [place] [address] [place] aPTT Coag (PPP) [Time] 40.3 s High 23.0-32.4 [facility] Comment on above: Order Comment: Speci men Type: BLOOD SPECIMENOrdering Facility: [facility] Address: [address] [place] [address] Performed By: #### P TTAC ####[facility] LABIA [id number] [place] [address] [place] aPTT Coag (PPP) [Time] 35.6 s High 23.0-32.4 [facility] Comment on above: Order Comment: Speci men Type: BLOOD SPECIMENOrdering Facility: [facility] Address: [address] [place] [address] Performed By: #### P TTAC ####[facility] LABIA [id number] [place] [address] [place] THERAPY NTon 10-11-2023 THERAPY NT Normal [facility] THERAPY NT Normal [facility] aPTT PPPon 10-11-2023 aPTT Coag (PPP) [Time] 118.8 s High 23.0-32.4 [facility] Comment on above: Order Comment: Speci men Type: BLOOD SPECIMENOrdering Facility: [facility] Address: [address] [place] [address] Result Comment: Renata woo checked for clot.Result rechecked. Performed By: #### 1 4979-9 ####[facility] LABCLIA [id number] [place] [address] [place] BRIEF OP NOTon 10-10-2023 BRIEF OP NOT Normal [facility] Bacteria Bld Culton 10-10-19 24 Bacteria identified Cx Nom (Bld) CULTURE, BLOOD: No growth 5 days Normal [facility] Comment on above: Performed By: #### 6 00-7 ####[facility] LABCLIA [id number] [place] [address] [place] Bacteria identified Cx Nom (Bld) CULTURE, BLOOD: No growth 5 days Normal [facility] Comment on above: Performed By: #### 6 00-7 ####[facility] LABCLIA [id number] [place] [address] [place] Bacteria Spec Resp Culton Bacteria identified Respiratory culture Nom (Unsp spec) Abnormal [facility] Comment on above: Performed By: #### 3 2355-0 ####[facility] LABCLIA [id number] [place] [address] [place] Bacteria Ur Culton 4 Bacteria identified Cx Nom (U) Abnormal [facility] Comment on above: Performed By: #### 6 30-4 ####[facility] LABCLIA [id number] [place] [address] [place] Bacteria Wnd Culton 10-10-19 24 Bacteria identified Cx Nom (Wound) Abnormal [facility] Comment on above: Performed By: #### 6 462-6 ####[facility] LABCLIA [id number] [place] [address] [place] CBC panel Auto (Bld)on 10-10 Erythrocyte distribution width (RBC) [Ratio] 18.0 % High 11.5-15.0 [facility] Comment on above: Order Comment: Speci men Type: BLOOD SPECIMENOrdering Facility: [facility] Address: [address] [place] [address] Performed By: #### 5 8410-2 ####[facility] LABIA [id number] [place] [address] [place] Hematocrit (Bld) [Volume fraction] 32.9 % Low 39.0-51.0 [facility] Comment on above: Order Comment: Speci men Type: BLOOD SPECIMENOrdering Facility: [facility] Address: [address] [place] [address] Performed By: #### 5 8410-2 ####[facility] LABIA [id number] [address] [place] Hemoglobin (Bld) [Mass/Vol] 9.7 g/dL Low 13.0-17.0 [facility] Comment on above: Order Comment: Speci men Type: BLOOD SPECIMENOrdering Facility: [facility] Address: [address] [place] [address] Performed By: #### 5 8410-2 ####[facility] LABIA [id number] [place] [address] [place] MCH (RBC) [Entitic mass] 25.1 pg Low 26.0-34.0 [facility] Comment on above: Order Comment: Speci men Type: BLOOD SPECIMENOrdering Facility: [facility] Address: [address] [place] [address] Performed By: #### 5 8410-2 ####[facility] LABCLIA [id number] [place] [address] [place] MCHC (RBC) [Mass/Vol] 29.5 g/dL Low 30.5-36.0 [facility] Comment on above: Order Comment: Speci men Type: BLOOD SPECIMENOrdering Facility: [facility] Address: [address] [place] [address] Performed By: #### 5 8410-2 ####[facility] LABIA [id number] [place] [address] [place] MCV (RBC) [Entitic vol] 85.2 fL Normal 80.0-100.0 [facility] Comment on above: Order Comment: Speci men Type: BLOOD SPECIMENOrdering Facility: [facility] Address: [address] [place] [address] Performed By: #### 5 8410-2 ####[facility] LABIA [id number] [place] [address] [place] Nucleated RBC (Bld) [#/Vol] 10*3/uL Normal <0.01 [facility] Comment on above: Order Comment: Speci men Type: BLOOD SPECIMENOrdering Facility: [facility] Address: [address] [place] [address] Performed By: #### 5 8410-2 ####[facility] LABIA [id number] [place] [address] [place] Platelet mean volume (Bld) [Entitic vol] 11.2 fL Normal 9.0-12.7 [facility] Comment on above: Order Comment: Speci men Type: BLOOD SPECIMENOrdering Facility: [facility] Address: [address] [place] [address] Performed By: #### 5 8410-2 ####[facility] LABIA [id number] [place] [address] [place] Platelets (Bld) [#/Vol] 446 10*3/uL High 150-400 [facility] Comment on above: Order Comment: Speci men Type: BLOOD SPECIMENOrdering Facility: [facility] Address: [address] [place] [address] Performed By: #### 5 8410-2 ####[facility] LABCLIA [id number] [place] [address] [place] RBC (Bld) [#/Vol] 3.86 10*6/uL Low 4.20-6.00 [facility] Comment on above: Order Comment: Speci men Type: BLOOD SPECIMENOrdering Facility: [facility] Address: [address] [place] [address] Performed By: #### 5 8410-2 ####[facility] LABCLIA [id number] [place] [address] [place] WBC (Bld) [#/Vol] 10.27 10*3/uL Normal 3.70-11.00 [facility] Comment on above: Order Comment: Speci men Type: BLOOD SPECIMENOrdering Facility: [facility] Address: [address] [place] [address] Performed By: #### 5 8410-2 ####[facility] LABCLIA [id number] [place] [address] [place] CONFIRM BLOOD TYPEon 024 ABO A Normal [facility] Comment on above: Order Comment: Speci men Type: BLOOD SPECIMENOrdering Facility: [facility] Address: [address] [place] [address] Performed By: #### C ONABO ####[facility] BLOOD BANKCLIA [id number] [place] [address] [place] Rh Nom (Bld) Positive Normal [facility] Comment on above: Order Comment: Speci men Type: BLOOD SPECIMENOrdering Facility: [facility] Address: [address] [place] [address] Performed By: #### C ONABO ####[facility] BLOOD BANKCLIA [id number] [place] [address] [place] CONSULTon 10-10-2023 CONSULT Normal [facility] CONSULT Normal [facility] CONSULT PROGon 10-10-2023 CONSULT PROG Normal [facility] CONSULT PROG Normal [facility] Comprehensive metabolic 2000 panelon 10-10-2023 Albumin [Mass/Vol] 3.0 g/dL Low 3.9-4.9 [facility] Comment on above: Order Comment: Speci men Type: BLOOD SPECIMENOrdering Facility: [facility] Address: [address] [place] [address] Performed By: #### H STNT, 10615-3 ####[facility] LABCLIA [id number] [place] [address] [place] ALP [Catalytic activity/Vol] 295 U/L High 38-113 [facility] Comment on above: Order Comment: Speci men Type: BLOOD SPECIMENOrdering Facility: [facility] Address: [address] [place] [address] Performed By: #### H STNT, 32168-1 ####[facility] LABCLIA [id number] [place] [address] [place] ALT [Catalytic activity/Vol] 38 U/L Normal 10-54 [facility] Comment on above: Order Comment: Speci men Type: BLOOD SPECIMENOrdering Facility: [facility] Address: [address] [place] [address] Performed By: #### H STNT, 13930-0 ####[facility] LABCLIA [id number] [place] [address] [place] Anion gap [Moles/Vol] 14 mmol/L Normal 9-18 [facility] Comment on above: Order Comment: Speci men Type: BLOOD SPECIMENOrdering Facility: [facility] Address: [address] [place] [address] Performed By: #### H STNT, 88948-7 ####[facility] LABCLIA [id number] [place] [address] [place] AST [Catalytic activity/Vol] 26 U/L Normal 14-40 [facility] Comment on above: Order Comment: Speci men Type: BLOOD SPECIMENOrdering Facility: [facility] Address: [address] [place] [address] Performed By: #### H STNT, 22909-4 ####[facility] LABCLIA [id number] [place] [address] [place] Bilirubin [Mass/Vol] 0.5 mg/dL Normal 0.2-1.3 [facility] Comment on above: Order Comment: Speci men Type: BLOOD SPECIMENOrdering Facility: [facility] Address: [address] [place] [address] Performed By: #### H STNT, 84346-9 ####[facility] LABCLIA [id number] [place] [address] [place] Calcium [Mass/Vol] 9.4 mg/dL Normal 8.5-10.2 [facility] Comment on above: Order Comment: Speci men Type: BLOOD SPECIMENOrdering Facility: [facility] Address: [address] [place] [address] Performed By: #### H STNT, 59246-6 ####[facility] LABCLIA [id number] [place] [address] [place] Chloride [Moles/Vol] 106 mmol/L High 97-105 [facility] Comment on above: Order Comment: Speci men Type: BLOOD SPECIMENOrdering Facility: [facility] Address: [address] [place] [address] Performed By: #### H STNT, 34706-2 ####[facility] LABCLIA [id number] [place] [address] [place] CO2 [Moles/Vol] 25 mmol/L Normal 22-30 [facility] Comment on above: Order Comment: Speci men Type: BLOOD SPECIMENOrdering Facility: [facility] Address: [address] [place] [address] Performed By: #### H STNT, 85040-7 ####[facility] LABIA [id number] [place] [id number] [place] Creatinine [Mass/Vol] 0.51 mg/dL Low 0.73-1.22 [facility] Comment on above: Order Comment: Speci men Type: BLOOD SPECIMENOrdering Facility: [facility] Address: [address] [place] [address] Performed By: #### H STNT, 09153-4 ####[facility] LABIA [id number] [place] [address] [place] Creatinine and Glomerular filtration rate.predicted panel (S/P/Bld) 132 mL/min/1.73m??? Normal >=60 [facility] Comment on above: Order Comment: Speci men Type: BLOOD SPECIMENOrdering Facility: [facility] Address: [address] [place] [address] Result Comment: Rea mated Glomerular Filtration Rate (eGFR) is calculated using the 2020 CKD-EPI creatinine equation. This equation utilizes serum creatinine, sex, and age as parameters. The creatinine assay has traceable calibration to isotope dilution-mass spectrometry. Refer to KDIGO guidelines for clinical interpretation. In patients with unstable renal function, e.g. those with acute kidney injury, the eGFR may not accurately reflect actual GFR. Performed By: #### H STNT, 83264-2 ####[facility] LABIA [id number] [place] [address] [place] Glucose [Mass/Vol] 83 mg/dL Normal 74-99 [facility] Comment on above: Order Comment: Speci men Type: BLOOD SPECIMENOrdering Facility: [facility] Address: [address] [place] [address] Result Comment: The [place] [employer] (ADA) provides guidance for cutoff values for fasting glucose and random glucose. The ADA defines fasting as no caloric intake for at least 8 hours. Fasting plasma glucose results between 100 to 125 mg/dL indicate increased risk for diabetes (prediabetes).Fasting plasma glucose results greater than or equal to 126 mg/dL meet the criteria for diagnosis of diabetes. In the absence of unequivocal hyperglycemia, results should be confirmed by repeat testing. In a patient with classic symptoms of hyperglycemia or hyperglycemic crisis, random plasma glucose results greater than or equal to 200 mg/dL meet the criteria for diagnosis of diabetes.Reference: Standards of Medical Care in Diabetes 2016, [place] [employer]. Diabetes Care. 2016.39(Suppl 1). Performed By: #### H STNT, ####[facility] LABCLIA [id number] [place] [address] [place] Potassium [Moles/Vol] 3.7 mmol/L Normal 3.7-5.1 [facility] Comment on above: Order Comment: Speci men Type: BLOOD SPECIMENOrdering Facility: [facility] Address: [address] [place] [address] Performed By: #### H STNT, ####[facility] LABCLIA [id number] [place] [address] [place] Protein [Mass/Vol] 6.3 g/dL Normal 6.3-8.0 [facility] Comment on above: Order Comment: Speci men Type: BLOOD SPECIMENOrdering Facility: [facility] Address: [address] [place] [address] Performed By: #### H STNT, ####[facility] LABCLIA [id number] [place] [address] [place] Sodium [Moles/Vol] 145 mmol/L High 136-144 [facility] Comment on above: Order Comment: Speci men Type: BLOOD SPECIMENOrdering Facility: [facility] Address: [address] [place] [address] Performed By: #### H STNT, ####[facility] LABCLIA [id number] [place] [address] [place] Urea nitrogen [Mass/Vol] 12 mg/dL Normal 9-24 [facility] Comment on above: Order Comment: Speci men Type: BLOOD SPECIMENOrdering Facility: [facility] Address: [address] [place] [address] Performed By: #### H STNT, 71710-5 ####[facility] LABCLIA [id number] [place] [address] [place] ECG COMPLETEon 10-10-2023 ECG COMPLETE Normal [facility] Gas and Carbon monoxide pane l (BldV)on 10-10-2023 Base excess Calc (BldV) [Moles/Vol] 4 mmol/L High 0-2 [facility] Comment on above: Order Comment: Speci men Type: VENOUS BLOOD SPECIMENOrdering Facility: [facility] Address: [address] [place] [address] Performed By: #### 2 4344-4 ####[facility] LABCLIA [id number] [place] [address] [place] Body temperature 99.32 [degF] Normal [facility] Comment on above: Order Comment: Speci men Type: VENOUS BLOOD SPECIMENOrdering Facility: [facility] Address: [address] [place] [address] Performed By: #### 2 4344-4 ####[facility] LABCLIA [id number] [place] [address] [place] Calcium.ionized (Bld) [Mass/Vol] 1.26 mmol/L Normal 1.08-1.30 [facility] Comment on above: Order Comment: Speci men Type: VENOUS BLOOD SPECIMENOrdering Facility: [facility] Address: [address] [place] [address] Performed By: #### 2 4344-4 ####[facility] LABIA [id number] [place] [address] [place] Calcium.ionized adjusted to pH 7.4 (BldA) [Moles/Vol] 1.32 mmol/L High 1.08-1.30 [facility] Comment on above: Order Comment: Speci men Type: VENOUS BLOOD SPECIMENOrdering Facility: [facility] Address: [address] [place] [address] Performed By: #### 2 4344-4 ####[facility] LABCLIA [id number] [place] [address] [place] Carboxyhemoglobin (BldV) [Mass fraction] 2.2 % High 0.0-2.0 [facility] Comment on above: Order Comment: Speci men Type: VENOUS BLOOD SPECIMENOrdering Facility: [facility] Address: [address] [place] [address] Result Comment: Carb oxyhemoglobin Reference Range for Smokers: 2.0-8.0% Performed By: #### 2 4344-4 ####[facility] LABCLIA [id number] [place] [address] [place] CO2 (BldV) [Partial pressure] 36 mm[Hg] Low 42-55 [facility] Comment on above: Order Comment: Speci men Type: VENOUS BLOOD SPECIMENOrdering Facility: [facility] Address: [address] [place] [address] Performed By: #### 2 4344-4 ####[facility] LABCLIA [id number] [place] [address] [place] CO2 adjusted to patient's actual temperature (BldV) [Partial pressure] 37 mmHg Low 42-55 [facility] Comment on above: Order Comment: Speci men Type: VENOUS BLOOD SPECIMENOrdering Facility: [facility] Address: [address] [place] [address] Performed By: #### 2 4344-4 ####[facility] LABCLIA [id number] [place] [address] [place] FIO2 40 % Normal [facility] Comment on above: Order Comment: Speci men Type: VENOUS BLOOD SPECIMENOrdering Facility: [facility] Address: [address] [place] [id number] Performed By: #### 2 4344-4 ####[facility] LABCLIA [id number] [place] [address] [place] Glucose [Mass/Vol] 87 mg/dL Normal 60-105 [facility] Comment on above: Order Comment: Speci men Type: VENOUS BLOOD SPECIMENOrdering Facility: [facility] Address: [address] [place] [address] Performed By: #### 2 4344-4 ####[facility] LABCLIA [id number] [place] [address] [place] HCO3 (Bld) [Moles/Vol] 27 mmol/L Normal 24-28 [facility] Comment on above: Order Comment: Speci men Type: VENOUS BLOOD SPECIMENOrdering Facility: [facility] Address: [address] [place] [address] Performed By: #### 2 4344-4 ####[facility] LABCLIA [id number] [place] [address] [place] Hematocrit (Bld) [Volume fraction] 30.0 % Low 39.0-51.0 [facility] Comment on above: Order Comment: Speci men Type: VENOUS BLOOD SPECIMENOrdering Facility: [facility] Address: [address] [place] [address] Performed By: #### 2 4344-4 ####[facility] LABCLIA [id number] [place] [id number] [place] Hemoglobin (Bld) [Mass/Vol] 9.7 g/dL Low 13.0-17.0 [facility] Comment on above: Order Comment: Speci men Type: VENOUS BLOOD SPECIMENOrdering Facility: [facility] Address: [address] [place] [address] Performed By: #### 2 4344-4 ####[facility] LABCLIA [id number] [place] [id number] [place] Lactate [Moles/Vol] 0.8 mmol/L Normal 0.5-2.2 [facility] Comment on above: Order Comment: Speci men Type: VENOUS BLOOD SPECIMENOrdering Facility: [facility] Address: [address] [place] [address] Performed By: #### 2 4344-4 ####[facility] LABIA [id number] [place] [address] [place] Methemoglobin (Bld) [Mass fraction] 0.9 % Normal 0.0-1.5 [facility] Comment on above: Order Comment: Speci men Type: VENOUS BLOOD SPECIMENOrdering Facility: [facility] Address: [address] [place] [address] Performed By: #### 2 4344-4 ####[facility] LABIA [id number] [place] [address] [place] O2 THERAPY Ventilator Normal [facility] Comment on above: Order Comment: Speci men Type: VENOUS BLOOD SPECIMENOrdering Facility: [facility] Address: [address] [place] [address] Performed By: #### 2 4344-4 ####[facility] LABIA [id number] [place] [address] [place] Oxygen (BldV) [Partial pressure] 56 mm[Hg] High 35-45 [facility] Comment on above: Order Comment: Speci men Type: VENOUS BLOOD SPECIMENOrdering Facility: [facility] Address: [address] [place], [place] [address] Performed By: #### 2 4344-4 ####[facility] LABCLIA [id number] [place] [id number] [place] Oxygen adjusted to patient's actual temperature (BldV) [Partial pressure] 57 mmHg High 35-45 [facility] Comment on above: Order Comment: Speci men Type: VENOUS BLOOD SPECIMENOrdering Facility: [facility] Address: [address] [place] [address] Performed By: #### 2 4344-4 ####[facility] LABCLIA [id number] [address] [address] [place] Oxygen saturation in Venous blood 90 % High 60-85 [facility] Comment on above: Order Comment: Speci men Type: VENOUS BLOOD SPECIMENOrdering Facility: [facility] Address: [address] [place], [place] [address] Performed By: #### 2 4344-4 ####[facility] LABCLIA [id number] [place] [address] [place] Oxyhemoglobin (BldV) [Mass fraction] 87 % High 60-85 [facility] Comment on above: Order Comment: Speci men Type: VENOUS BLOOD SPECIMENOrdering Facility: [facility] Address: [address] [place] [address] Performed By: #### 2 4344-4 ####[facility] LABCLIA [id number] [place] [address] [place] PEEP/CPAP 5 cmH2O Normal [facility] Comment on above: Order Comment: Speci men Type: VENOUS BLOOD SPECIMENOrdering Facility: [facility] Address: [address] [place], [place] [address] Performed By: #### 2 4344-4 ####[facility] LABCLIA [id number] [place] [id number] [place] pH (BldV) 7.49 [pH] High 7.32-7.42 [facility] Comment on above: Order Comment: Speci men Type: VENOUS BLOOD SPECIMENOrdering Facility: [facility] Address: [address] [place], [place] [address] Performed By: #### 2 4344-4 ####[facility] LABCLIA [id number] [place] [address] [place] pH adjusted to patient's actual temperature (BldV) 7.48 High 7.32-7.42 [facility] Comment on above: Order Comment: Speci men Type: VENOUS BLOOD SPECIMENOrdering Facility: [facility] Address: [address] [place] [address] Performed By: #### 2 4344-4 ####[facility] LABCLIA [id number] [place] [address] [place] Potassium [Moles/Vol] 3.2 mmol/L Low 3.5-5.0 [facility] Comment on above: Order Comment: Speci men Type: VENOUS BLOOD SPECIMENOrdering Facility: [facility] Address: [address] [place] [address] Performed By: #### 2 4344-4 ####[facility] LABCLIA [id number] [place] [address] [place] Sodium [Moles/Vol] 145 mmol/L High 136-144 [facility] Comment on above: Order Comment: Speci men Type: VENOUS BLOOD SPECIMENOrdering Facility: [facility] Address: [address] [place] [address] Performed By: #### 2 4344-4 ####[facility] LABCLIA [id number] [place] [address] [place] Base excess Calc (BldV) [Moles/Vol] 5 mmol/L High 0-2 [facility] Comment on above: Order Comment: Speci men Type: VENOUS BLOOD SPECIMENOrdering Facility: [facility] Address: [address] [place] [address] Performed By: #### 2 4344-4 ####[facility] LABCLIA [id number] [place] [address] [place] Body temperature 99.32 [degF] Normal [facility] Comment on above: Order Comment: Speci men Type: VENOUS BLOOD SPECIMENOrdering Facility: [facility] Address: [address] [place] [address] Performed By: #### 2 4344-4 ####[facility] LABIA [id number] [place] [address] [place] Calcium.ionized (Bld) [Mass/Vol] 1.25 mmol/L Normal 1.08-1.30 [facility] Comment on above: Order Comment: Speci men Type: VENOUS BLOOD SPECIMENOrdering Facility: [facility] Address: [address] [place] [address] Performed By: #### 2 4344-4 ####[facility] [id number] [place] [address] [place] Calcium.ionized adjusted to pH 7.4 (BldA) [Moles/Vol] 1.32 mmol/L High 1.08-1.30 [facility] Comment on above: Order Comment: Speci men Type: VENOUS BLOOD SPECIMENOrdering Facility: [facility] Address: [address] [place] [address] Performed By: #### 2 4344-4 ####[facility] [id number] [place] [address] [place] Carboxyhemoglobin (BldV) [Mass fraction] 1.2 % Normal 0.0-2.0 [facility] Comment on above: Order Comment: Speci men Type: VENOUS BLOOD SPECIMENOrdering Facility: [facility] Address: [address] [place] [address] Result Comment: Carb oxyhemoglobin Reference Range for Smokers: 2.0-8.0% Performed By: #### 2 4344-4 ####[facility] [id number] [place] [address] [place] CO2 (BldV) [Partial pressure] 36 mm[Hg] Low 42-55 [facility] Comment on above: Order Comment: Speci men Type: VENOUS BLOOD SPECIMENOrdering Facility: [facility] Address: [address] [place] [address] Performed By: #### 2 4344-4 ####[facility] LABCLIA [id number] [place] [address] [place] CO2 adjusted to patient's actual temperature (BldV) [Partial pressure] 36 mmHg Low 42-55 [facility] Comment on above: Order Comment: Speci men Type: VENOUS BLOOD SPECIMENOrdering Facility: [facility] Address: [address] [place] [address] Performed By: #### 2 4344-4 ####[facility] LABCLIA [id number] [place] [address] [place] FIO2 40 % Normal [facility] Comment on above: Order Comment: Speci men Type: VENOUS BLOOD SPECIMENOrdering Facility: [facility] Address: [address] [place] [address] Performed By: #### 2 4344-4 ####[facility] LABCLIA [id number] [place] [address] [place] Glucose [Mass/Vol] 87 mg/dL Normal 60-105 [facility] Comment on above: Order Comment: Speci men Type: VENOUS BLOOD SPECIMENOrdering Facility: [facility] Address: [address] [place] [address] Performed By: #### 2 4344-4 ####[facility] LABCLIA [id number] [place] [address] [place] HCO3 (Bld) [Moles/Vol] 28 mmol/L Normal 24-28 [facility] Comment on above: Order Comment: Speci men Type: VENOUS BLOOD SPECIMENOrdering Facility: [facility] Address: [address] [place] [id number] Performed By: #### 2 4344-4 ####[facility] LABCLIA [id number] [place] [address] [place] Hematocrit (Bld) [Volume fraction] 30.6 % Low 39.0-51.0 [facility] Comment on above: Order Comment: Speci men Type: VENOUS BLOOD SPECIMENOrdering Facility: [facility] Address: [address] [place] [address] Performed By: #### 2 4344-4 ####[facility] LABCLIA [id number] [place] [address] [place] Hemoglobin (Bld) [Mass/Vol] 9.9 g/dL Low 13.0-17.0 [facility] Comment on above: Order Comment: Speci men Type: VENOUS BLOOD SPECIMENOrdering Facility: [facility] Address: [address] [place] [address] Performed By: #### 2 4344-4 ####[facility] LABCLIA [id number] [place] [address] [place] Lactate [Moles/Vol] 1.1 mmol/L Normal 0.5-2.2 [facility] Comment on above: Order Comment: Speci men Type: VENOUS BLOOD SPECIMENOrdering Facility: [facility] Address: [address] [place] [address] Performed By: #### 2 4344-4 ####[facility] LABCLIA [id number] [place] [address] [place] Methemoglobin (Bld) [Mass fraction] 0.9 % Normal 0.0-1.5 [facility] Comment on above: Order Comment: Speci men Type: VENOUS BLOOD SPECIMENOrdering Facility: [facility] Address: [address] [place] [address] Performed By: #### 2 4344-4 ####[facility] LABCLIA [id number] [place] [address] [place] O2 THERAPY Ventilator Normal [facility] Comment on above: Order Comment: Speci men Type: VENOUS BLOOD SPECIMENOrdering Facility: [facility] Address: [address] [place] [address] Performed By: #### 2 4344-4 ####[facility] LABCLIA [id number] [address] [address] [place] Oxygen (BldV) [Partial pressure] 60 mm[Hg] High 35-45 [facility] Comment on above: Order Comment: Speci men Type: VENOUS BLOOD SPECIMENOrdering Facility: [facility] Address: [address] [place], [place] [address] Performed By: #### 2 4344-4 ####[facility] LABCLIA [id number] [address] [address] [place] Oxygen adjusted to patient's actual temperature (BldV) [Partial pressure] 61 mmHg High 35-45 [facility] Comment on above: Order Comment: Speci men Type: VENOUS BLOOD SPECIMENOrdering Facility: [facility] Address: [address] [place], [place] [address] Performed By: #### 2 4344-4 ####[facility] LABCLIA [id number] [address] [address] [place] Oxygen saturation in Venous blood 91 % High 60-85 [facility] Comment on above: Order Comment: Speci men Type: VENOUS BLOOD SPECIMENOrdering Facility: [facility] Address: [address] [place], [place] [address] Performed By: #### 2 4344-4 ####[facility] LABCLIA [id number] [address] [address] [place] Oxyhemoglobin (BldV) [Mass fraction] 89 % High 60-85 [facility] Comment on above: Order Comment: Speci men Type: VENOUS BLOOD SPECIMENOrdering Facility: [facility] Address: [address] [place] [address] Performed By: #### 2 4344-4 ####[facility] LABCLIA [id number] [address] [address] [place] PEEP/CPAP 5 cmH2O Normal [facility] Comment on above: Order Comment: Speci men Type: VENOUS BLOOD SPECIMENOrdering Facility: [facility] Address: [address] [place] [address] Performed By: #### 2 4344-4 ####[facility] LABIA [id number] [place] [address] [place] pH (BldV) 7.50 [pH] High 7.32-7.42 [facility] Comment on above: Order Comment: Speci men Type: VENOUS BLOOD SPECIMENOrdering Facility: [facility] Address: [address] [place] [address] Performed By: #### 2 4344-4 ####[facility] LABIA [id number] [place] [address] [place] pH adjusted to patient's actual temperature (BldV) 7.50 High 7.32-7.42 [facility] Comment on above: Order Comment: Speci men Type: VENOUS BLOOD SPECIMENOrdering Facility: [facility] Address: [address] [place] [address] Performed By: #### 2 4344-4 ####[facility] LABIA [id number] [place] [address] [place] Potassium [Moles/Vol] 3.5 mmol/L Normal 3.5-5.0 [facility] Comment on above: Order Comment: Speci men Type: VENOUS BLOOD SPECIMENOrdering Facility: [facility] Address: [address] [place] [address] Performed By: #### 2 4344-4 ####[facility] LABIA [id number] [place] [address] [place] Sodium [Moles/Vol] 145 mmol/L High 136-144 [facility] Comment on above: Order Comment: Speci men Type: VENOUS BLOOD SPECIMENOrdering Facility: [facility] Address: [address] [place], [place] [address] Performed By: #### 2 4344-4 ####[facility] LABCLIA [id number] [place] [address] [place] HIGH SENSITIVITY TROPONIN To n 10-10-2023 Troponin T.cardiac High sensitivity method [Mass/Vol] 66 ng/L High <12 [facility] Comment on above: Order Comment: Darwin schwarz Type: BLOOD SPECIMENOrdering Facility: [facility] Address: [address] [place] [address] Result Comment: When assessing risk for acute coronary syndromes: In patients undergoing blood draw greater than or equal to 2 hours from symptom onset, with history of very low to moderate risk and non-ischemic ECG, an initial hs-Troponin T less than 12 ng/L AND a 1 hour delta hs-Troponin T less than 3 ng/L should be considered very low risk for 30 day MACE. Performed By: #### H STNT ####[facility] LABIA [id number] [address] [place] Troponin T.cardiac High sensitivity method [Mass/Vol] 66 ng/L High <12 [facility] Comment on above: Order Comment: Darwin schwarz Type: BLOOD SPECIMENOrdering Facility: [facility] Address: [address] [place] [address] Result Comment: When assessing risk for acute coronary syndromes: In patients undergoing blood draw greater than or equal to 2 hours from symptom onset, with history of very low to moderate risk and non-ischemic ECG, an initial hs-Troponin T less than 12 ng/L AND a 1 hour delta hs-Troponin T less than 3 ng/L should be considered very low risk for 30 day MACE. Performed By: #### H STNT, 73561-9 ####[facility] LABCLIA [id number] [place] [address] [place] HISTORY PHYSICALon HISTORY PHYSICAL Normal [facility] IR PERC KWASI EXISTING ACCES Son 10-10-2023 IR PERC KWASI EXISTING ACCESS Normal [facility] PT EDon 10-10-2023 PT ED Normal [facility] PT panel Coag (PPP)on 2023 INR Coag (PPP) [Relative time] 1.1 {INR} Normal 0.9-1.3 [facility] Comment on above: Order Comment: Darwin schwarz Type: BLOOD SPECIMENOrdering Facility: [facility] Address: [address] [place] [address] Result Comment: Edilma min K Antagonist (VKA) Therapeutic Range: INR 2 to 3 (Target INR of 2.5)Note: For patients treated with VKA drugs, such as warfarin, the [employer] [place] [employer] 2012 Guideline recommends a therapeutic INR range of 2 to 3 (target INR of 2.5). This recommendation includes high-risk patients with antiphospholipid syndrome with previous arterial or venous thromboembolism, current-generation mechanical or bioprosthetic aortic heart valve replacement.Note: Patients with mechanical aortic valve replacement and additional risk factors for thromboembolic events (atrial fibrillation, previous thromboembolism, LV dysfunction, hypercoagulable conditions) or an older generation mechanical AVR (i.e., ball in-Cage) or any mechanical MVR should have a INR therapeutic range of 2.5 to 3.5 (target INR of 3).oHlger LLANES, et al. Chest 2012, 141:7S-47SNishimyong RA, et al. [facility] 2017, 70: 252-289 Performed By: #### 3 4528-0, 15848-7 ####[facility] LABIA [id number] [place] [address] [place] PT Coag (PPP) [Time] 12.0 s Normal 9.7-13.0 [facility] Comment on above: Order Comment: Darwin schwarz Type: BLOOD SPECIMENOrdering Facility: [facility] Address: [address] [place] [address] Performed By: #### 3 4528-0, 55370-1 ####[facility] LABIA [id number] [place] [address] [place] PTT, ANTICOAGULANT THERAPYon 10-10-2023 aPTT Coag (PPP) [Time] 28.6 s Normal 23.0-32.4 [facility] Comment on above: Order Comment: Speci men Type: BLOOD SPECIMENOrdering Facility: [facility] Address: [address] [place] [address] Performed By: #### P TTAC ####[facility] LABCLIA [id number] [place] [address] [place] STAPH AUREUS PCRon S. aureus and MRSA panel COMPA+probe (Nose) Normal Negative [facility] Comment on above: Order Comment: Speci men Type: SWAB OF INTERNAL NOSEOrdering Facility: [facility] Address: [address] [place] [address] Result Comment: Nega tive for Staphylococcus aureus by PCR.Negative for MRSA by PCR Performed By: #### S APCR ####[facility] LABCLIA [id number] [place] [address] [place] TYPE + SCREENon 10-10-2023 ABO A Normal [facility] Comment on above: Order Comment: Speci men Type: BLOOD SPECIMENOrdering Facility: [facility] Address: [address] [place] [address] Performed By: #### T SCR ####[facility] BLOOD BANKCLIA [id number] [place] [address] [place] HISTORICAL AB SCR STATUS Negative Normal [facility] Comment on above: Order Comment: Speci men Type: BLOOD SPECIMENOrdering Facility: [facility] Address: [address] [place] [address] Performed By: #### T SCR ####[facility] BLO[facility] BANKCLIA [id number] [place] [id number] [place] Rh Nom (Bld) Positive Normal [facility] Comment on above: Order Comment: Speci men Type: BLOOD SPECIMENOrdering Facility: [facility] Address: [address] [place] [address] Performed By: #### T SCR ####CC [facility] BLOOD BANKCLIA [id number] [place] [address] [place] TYPE AND SCREEN EXPIRATION 10/12/2023 23:59 Normal [facility] Comment on above: Order Comment: Speci men Type: BLOOD SPECIMENOrdering Facility: [facility] Address: [address] [place] [address] Performed By: #### T SCR ####CC [facility] BLOOD [facility] [id number] [place] [address] [place] URINALYSIS, REFLEX MICROSCOP ICon 10-10-2023 BACTERIA UL >9821 High Negative [facility] Comment on above: Order Comment: Speci men Type: URINE SPECIMENOrdering Facility: [facility] Address: [address] [place] [address] Performed By: #### L [id number] ####[facility] LABCLIA [id number] [place] [address] [place] Bilirubin Ql (U) 1+ Abnormal Negative [facility] Comment on above: Order Comment: Speci men Type: URINE SPECIMENOrdering Facility: [facility] Address: [address] [place] [address] Result Comment: Sugg est correlation with clinical findings and serum bilirubin if clinically indicated. Performed By: #### L [id number] ####[facility] LABCLIA [id number] [place] [address] [place] CALCIUM OXALATE CRYSTALS (UA) Few Abnormal None Seen [facility] Comment on above: Order Comment: Speci men Type: URINE SPECIMENOrdering Facility: [facility] Address: [address] [place] [address] Performed By: #### L [id number] ####[facility] LABCLIA [id number] [place] [address] [place] Clarity (Unsp spec) Turbid Abnormal Clear [facility] Comment on above: Order Comment: Speci men Type: URINE SPECIMENOrdering Facility: [facility] Address: [address] [place] [address] Performed By: #### L [id number] ####[facility] LABCLIA [id number] [place] [address] [place] Color (U) Dark Yellow Abnormal Yellow [facility] Comment on above: Order Comment: Speci men Type: URINE SPECIMENOrdering Facility: [facility] Address: [address] [place] [address] Performed By: #### L [id number] ####[facility] LABCLIA [id number] [place] [address] [place] Epithelial cells LM.HPF (Urine sed) [#/Area] None Seen Normal [facility] Comment on above: Order Comment: Speci men Type: URINE SPECIMENOrdering Facility: [facility] Address: [address] [place] [address] Performed By: #### L [id number] ####[facility] LABCLIA [id number] [place] [address] [place] Glucose Test strip (U) [Mass/Vol] Negative Normal Negative [facility] Comment on above: Order Comment: Speci men Type: URINE SPECIMENOrdering Facility: [facility] Address: [address] [place] [address] Performed By: #### L [id number] ####[facility] LABCLIA [id number] [place] [address] [place] Hemoglobin Ql (U) 3+ Abnormal Negative [facility] Comment on above: Order Comment: Speci men Type: URINE SPECIMENOrdering Facility: [facility] Address: [address] [place] [address] Performed By: #### L [id number] ####[facility] LABCLIA [id number] [place] [address] [place] Hyaline casts (Urine sed) [#/Area] 4-10 /LPF Abnormal 0 /LPF [facility] Comment on above: Order Comment: Speci men Type: URINE SPECIMENOrdering Facility: [facility] Address: [address] [place] [address] Performed By: #### L [id number] ####[facility] LABCLIA [id number] [place] [address] [place] Ketones Ql (U) 2+ Abnormal Negative [facility] Comment on above: Order Comment: Speci men Type: URINE SPECIMENOrdering Facility: [facility] Address: [address] [place] [address] Performed By: #### L [id number] ####[facility] LABCLIA [id number] [place] [address] [place] Leukocyte esterase Test strip Ql (U) 1+ Abnormal Negative [facility] Comment on above: Order Comment: Speci men Type: URINE SPECIMENOrdering Facility: [facility] Address: [address] [place] [address] Performed By: #### L [id number] ####[facility] LABCLIA [id number] [place] [address] [place] Nitrite Ql (U) Positive Abnormal Negative [facility] Comment on above: Order Comment: Speci men Type: URINE SPECIMENOrdering Facility: [facility] Address: [address] [place] [address] Performed By: #### L [id number] ####[facility] LABCLIA [id number] [place] [address] [place] pH (U) 5.5 [pH] Normal <8.5 [facility] Comment on above: Order Comment: Speci men Type: URINE SPECIMENOrdering Facility: [facility] Address: [address] [place] [address] Performed By: #### L [id number] ####[facility] LABCLIA [id number] [place] [address] [place] Protein (U) [Mass/Vol] 1+ Abnormal Negative [facility] Comment on above: Order Comment: Speci men Type: URINE SPECIMENOrdering Facility: [facility] Address: [address] [place] [address] Performed By: #### L [id number] ####[facility] [id number] [place] [address] [place] RBC LM.HPF (Urine sed) [#/Area] /[HPF] Abnormal 0-2 /HPF [facility] Comment on above: Order Comment: Speci men Type: URINE SPECIMENOrdering Facility: [facility] Address: [address] [place] [address] Performed By: #### L [id number] ####[facility] [id number] [place] [address] [place] Specific gravity (U) [Rel density] 1.037 High 1.005-1.030 [facility] Comment on above: Order Comment: Speci men Type: URINE SPECIMENOrdering Facility: [facility] Address: [address] [place] [address] Performed By: #### L [id number] ####[facility] [id number] [place] [address] [place] Urobilinogen Ql (U) 1.0 EU/dL Normal 0.2-1.0 EU/dL [facility] Comment on above: Order Comment: Speci men Type: URINE SPECIMENOrdering Facility: [facility] Address: [address] [place] [address] Performed By: #### L [id number] ####[facility] [id number] [place] [address] [place] WBC LM.HPF (Urine sed) [#/Area] /[HPF] Abnormal 0-5 /HPF [facility] Comment on above: Order Comment: Speci men Type: URINE SPECIMENOrdering Facility: [facility] Address: [address] [place] [address] Performed By: #### L [id number] ####[facility] LABCLIA [id number] [place] [id number] [place] US ABD RIGHT UPPER QUADRANTo n 10-10-2023 US ABD RIGHT UPPER QUADRANT Normal [facility] XR ABDOMEN 1V SUPINEon 10-10 XR ABDOMEN 1V SUPINE Normal [facility] XR CHEST 1V FRONTAL PORTon 0 10-10-2023 XR CHEST 1V FRONTAL PORT Normal [facility] aPTT PPPon 10-10-2023 aPTT Coag (PPP) [Time] 47.7 s High 23.0-32.4 [facility] Comment on above: Order Comment: Speci men Type: BLOOD SPECIMENOrdering Facility: [facility] Address: [address] [place] [address] Performed By: #### 1 4979-9 ####[facility] [id number] [address] [place] aPTT Coag (PPP) [Time] 24.9 s Normal 23.0-32.4 [facility] Comment on above: Order Comment: Speci men Type: BLOOD SPECIMENOrdering Facility: [facility] Address: [address] [place] [address] Performed By: #### 3 4528-0, 21833-2 ####[facility] [id number] [place] [address] [place] HISTORY PHYSICALon HISTORY PHYSICAL Normal [facility] SARS/FLU A+B/RSV by NAAT/Mol ecularon 10-09-2023 SARS/FLU A+B/RSV by NAAT/Molecular FLU A PCR Negative (qualifier value) FLU B PCR Negative (qualifier value) RSV by PCR Negative (qualifier value) SARS CoV 2 Not detected (qualifier value) NOTE The Xpert Xpress SARS-CoV-2/Flu/RSV Plus test is a rapid, multiplexed real-time RT-PCR test intended for the simultaneous qualitative detection and differentiation of SARS-CoV-2, influenza A, influenza B and respiratory syncytial virus (RSV) viral RNA from individuals suspected of respiratory viral infection consistent with COVID-19 by their healthcare provider. This test has not been validated in asymptomatic patients. The Xpert Xpress SARS-CoV-2 test is intended for use by qualified and trained operators who are performing tests using either GeneQuanttus DX or KeVita systems and is limited to laboratories that meet the CLIA requirements to perform high and moderate complexity tests. The Xpert Xpress SARS-CoV-2/Flu/RSV Plus is only for use under the Food and Drug Administration's Emergency Use Authorization. Results are for the simultaneous detection and differentiation of SARS-CoV-2, influenza A, influenza B and RSV nucleic acids in clinical specimens. SARS-CoV-2, influenza A, influenza B and RSV RNA identified by this test are generally detectable in upper respiratory samples during the acute phase of infection. Positive results are indicative of the presence of the identified virus, but do not rule out bacterial infection or co-infection with other pathogens not detected by this test. Clinical correlation with patient history and other diagnostic information is necessary to determine patient infection status. The agent detected may not be the definite cause of disease. Negative results do not preclude SARS-CoV-2, influenza A, influenza B and RSV infection and should not be used as the sole basis for treatment or other patient management decisions. Negative results must be combined with clinical observations, patient history and epidemiological information. An Invalid result may occur with specimen-associated inhibition unable to be resolved with specimen repeat. Fact Sheet for Healthcare Providers: https://www.fda.gov/m edia/031083/download Fact Sheet for Patients: https://www.fda.gov/m edia/937545/download Normal [facility] Comment on above: Performed By: #### C DOM, ALYSSA, 3040-3, 73896-5, 52318-9, 88177- 9, 84019-2, PINR, 57121-2 #### [facility] ([id number]) [address] [place] [address], [place] [id number] BLOOD CULTUREon 10-08-2023 Bacteria identified Aer cx Nom (Bld) SPECIMEN NOTES RAC CULTURE RESULTS NO GROWTH 5 DAYS Normal [facility] Comment on above: Performed By: #### C BCA, CMP, 3040-3, 46093-3, 92886-4, 05547- 9, 47266-3, PINR, 34970-2 #### [facility] ([id number]) [address] [place] [address]1245 Bacteria identified Aer cx Nom (Bld) SPECIMEN NOTES LAC CULTURE RESULTS NO GROWTH 5 DAYS Normal [facility] Comment on above: Performed By: #### C BCA, CMP, 3040-3, 50717-5, 80517-9, 70379- 9, 96618-7, PINR, 88518-5 #### [facility] ([id number]) [address] [place] [address] 46756 CBC AND AUTO DIFFon 10-08-19 24 ABSOLUTE BASOPHIL 0.1 X10E9/L Normal 0.0-0.2 [facility] Comment on above: Performed By: #### C BCA, CMP, 3040-3, 16160-7, 66402-6, 20093- 9, 21240-0, PINR, 10433-7 #### [facility] ([id number]) [address] [place] [address] 71667 ABSOLUTE NEUTROPHIL 7.8 X10E9/L High 1.5-6.6 [facility] Comment on above: Performed By: #### C BCA, CMP, 3040-3, 59819-1, 23775-9, 08077- 9, 42204-1, PINR, 13090-6 #### [facility] ([id number]) [address] [place] [address] 05272 Basophils/100 WBC (Bld) 0.9 % Normal [facility] Comment on above: Performed By: #### C BCA, CMP, 3040-3, 49874-5, 92063-3, 47380- 9, 18017-2, PINR, 77172-8 #### [facility] ([id number]) [address] [place] [address] 83306 Eosinophils (Bld) [#/Vol] 0.3 10*3/uL Normal 0.0-0.4 [facility] Comment on above: Performed By: #### C BCA, CMP, 3040-3, 33898-1, 89243-3, 07870- 9, 52267-5, PINR, 05449-9 #### [facility] ([id number]) [address] [place] [address] 21317 Eosinophils/100 WBC (Bld) 2.8 % Normal [facility] Comment on above: Performed By: #### C BCA, CMP, 3040-3, 68859-0, 12852-3, 63999- 9, 28163-2, PINR, 60430-5 #### [facility] ([id number]) [address] [place] [address] 93263 Erythrocyte distribution width (RBC) [Ratio] 20.1 % High 11.5-15.0 [facility] Comment on above: Performed By: #### C BCA, CMP, 3040-3, 93221-3, 90328-2, 78499- 9, 27675-4, PINR, 79429-4 #### [facility] ([id number]) [address] [place] [address] 93330 Hematocrit (Bld) [Volume fraction] 35.6 % Low 39-49 [facility] Comment on above: Performed By: #### C BCA, CMP, 3040-3, 89961-2, 42754-7, 17083- 9, 96122-2, PINR, 52284-7 #### [facility] ([id number]) [address] [place] [address] 09134 Hemoglobin (Bld) [Mass/Vol] 11.1 g/dL Low 13.0-17.0 [facility] Comment on above: Performed By: #### C BCA, CMP, 3040-3, 79581-4, 77033-8, 59993- 9, 72655-8, PINR, 10542-3 #### [facility] ([id number]) [address] [place] [address] 00300 Lymphocytes (Bld) [#/Vol] 1.8 10*3/uL Normal 1.0-3.5 [facility] Comment on above: Performed By: #### C BCA, CMP, 3040-3, 90562-2, 86977-7, 36107- 9, 78122-4, PINR, 58434-2 #### [facility] ([id number]) [address] [place] [address] 05795 Lymphocytes/100 WBC (Bld) 17.1 % Normal [facility] Comment on above: Performed By: #### C BCA, CMP, 3040-3, 62173-9, 19361-8, 65506- 9, 62596-6, PINR, 61462-2 #### [facility] ([id number]) [address] [place] [address] 02498 MCH (RBC) [Entitic mass] 24.9 pg Low 27-34 [facility] Comment on above: Performed By: #### C BCA, CMP, 3040-3, 07285-8, 40383-5, 67859- 9, 57537-4, PINR, 21247-1 #### [facility] ([id number]) [address] [place] [address] 79699 MCHC (RBC) [Mass/Vol] 31.2 g/dL Low 32-36 [facility] Comment on above: Performed By: #### C BCA, CMP, 3040-3, 83106-3, 17777-2, 58075- 9, 84882-5, PINR, 62977-0 #### [facility] ([id number]) [address] [place] [address] 20345 MCV (RBC) [Entitic vol] 80 fL Normal 80-100 [facility] Comment on above: Performed By: #### C BCA, CMP, 3040-3, 34850-0, 41691-9, 13636- 9, 44504-9, PINR, 27893-5 #### [facility] ([id number]) [address] [place] [address] 43035 Monocytes (Bld) [#/Vol] 0.6 10*3/uL Normal 0-0.9 [facility] Comment on above: Performed By: #### C BCA, CMP, 3040-3, 27938-1, 25309-4, 30476- 9, 11358-1, PINR, 79712-7 #### [facility] ([id number]) [address] [place] [address] 17808 Monocytes/100 WBC (Bld) 5.9 % Normal [facility] Comment on above: Performed By: #### C BCA, CMP, 3040-3, 94366-6, 18399-6, 28036- 9, 67399-6, PINR, 94986-4 #### [facility] ([id number]) [address] [place] [address] 30509 Neutrophils/100 WBC (Bld) 73.3 % Normal [facility] Comment on above: Performed By: #### C BCA, CMP, 3040-3, 69929-7, 55969-3, 95874- 9, 79870-6, PINR, 52847-9 #### [facility] ([id number]) [address] [place] [address] 57739 Platelet mean volume (Bld) [Entitic vol] 8.7 fL Normal 7-12 [facility] Comment on above: Performed By: #### C BCA, CMP, 3040-3, 32275-2, 79902-1, 47996- 9, 42791-0, PINR, 12901-4 #### [facility] ([id number]) [address] [place] [address] 42826 Platelets (Bld) [#/Vol] 429 10*3/uL Normal 150-450 [facility] Comment on above: Performed By: #### C BCA, CMP, 3040-3, 64950-0, 19530-3, 35050- 9, 67041-0, PINR, 39357-1 #### [facility] ([id number]) [address] [place] [address] 54543 RBC COUNT 4.46 X10E12/L Normal 4.10-5.70 [facility] Comment on above: Performed By: #### C BCA, CMP, 3040-3, 79728-8, 60314-3, 12390- 9, 59097-8, PINR, 94952-2 #### [facility] ([id number]) [address] [place] [address] 32421 WBC (Bld) [#/Vol] 10.6 10*3/uL Normal 4.0-11.0 [facility] Comment on above: Performed By: #### C BCA, CMP, 3040-3, 37940-1, 33253-2, 02160- 9, 56579-2, PINR, 92409-4 #### [facility] ([id number]) [address] [place] [address] 93613 COMPREHENSIVE METABOLIC PANE Ever 10-08-2023 Albumin [Mass/Vol] 2.7 g/dL Low 3.2-5.3 [facility] Comment on above: Performed By: #### C BCA, CMP, 3040-3, 12306-9, 56489-2, 27647- 9, 12564-1, PINR, 47430-4 #### [facility] ([id number]) [address] [place] [address] 79412 ALP [Catalytic activity/Vol] 318 U/L High 39-130 [facility] Comment on above: Performed By: #### C BCA, CMP, 3040-3, 10550-3, 59853-0, 19828- 9, 12738-9, PINR, 34553-8 #### [facility] ([id number]) [address] [place] [address] 77430 ALT [Catalytic activity/Vol] 58 U/L High 0-40 [facility] Comment on above: Performed By: #### C BCA, CMP, 3040-3, 28736-7, 93271-8, 16303- 9, 63261-0, PINR, 33127-8 #### [facility] ([id number]) [address] [place] [address] 39854 Anion gap [Moles/Vol] 9 mmol/L Normal 5-15 [facility] Comment on above: Performed By: #### C BCA, CMP, 3040-3, 39602-4, 54287-8, 45909- 9, 38463-3, PINR, 14483-9 #### [facility] ([id number]) [address] [place] [address] 92674 AST [Catalytic activity/Vol] 30 U/L Normal 0-41 [facility] Comment on above: Performed By: #### C BCA, CMP, 3040-3, 10566-4, 55633-7, 64985- 9, 04658-1, PINR, 43954-6 #### [facility] ([id number]) [address] [place] [address] 75804 Bilirubin [Mass/Vol] 0.5 mg/dL Normal 0.3-1.2 [facility] Comment on above: Performed By: #### C BCA, CMP, 3040-3, 97438-0, 00605-3, 31182- 9, 67878-1, PINR, 22577-1 #### [facility] ([id number]) [address] [place] [address] 02395 Calcium [Mass/Vol] 9.2 mg/dL Normal 8.5-10.5 [facility] Comment on above: Performed By: #### C BCA, CMP, 3040-3, 73763-8, 62070-5, 38340- 9, 60051-0, PINR, 32684-8 #### [facility] ([id number]) [address] [place] [address] 14029 Chloride [Moles/Vol] 99 mmol/L Normal 98-109 [facility] Comment on above: Performed By: #### C BCA, CMP, 3040-3, 70420-2, 13043-8, 15769- 9, 53525-8, PINR, 65359-1 #### [facility] ([id number]) [address] [place] [address] 61265 CO2 [Moles/Vol] 31 mmol/L Normal 22-32 [facility] Comment on above: Performed By: #### C BCA, CMP, 3040-3, 61800-3, 97593-0, 67743- 9, 88090-1, PINR, 37579-9 #### [facility] ([id number]) [address] [place] [address] 37233 Creatinine [Mass/Vol] 0.51 mg/dL Low 0.70-1.20 [facility] Comment on above: Result Comment: METH OD TRACEABLE TO IDMS STANDARD Performed By: #### C BCA, CMP, 3040-3, 55697-8, 05515-5, 12213-5, 47529-3, PINR, 78471-1 #### [facility] ([id number]) [address] [place] [address] 31397 eGFR (CKD-EPI) NON-RACE DEPENDENT >90 Normal >59 [facility] Comment on above: Result Comment: Reported eGFR is based on the CKD-EPI 2020 equation that does not use a race coefficient. Performed By: #### C BCA, CMP, 3040-3, 07989-2, 25817-4, 21338-9, 78736-3, PINR, 29244-1 #### [facility] ([id number]) [address] [place] [address] [id number] Glucose [Mass/Vol] 114 mg/dL High 65-99 [facility] Comment on above: Performed By: #### C BCA, CMP, 3040-3, 31203-6, 76472-0, 67370- 9, 64867-2, PINR, 02316-4 #### [facility] ([id number]) [address] [place] [address] [id number] Potassium [Moles/Vol] 4.3 mmol/L Normal 3.5-5.0 [facility] Comment on above: Performed By: #### C BCA, CMP, 3040-3, 73209-1, 41548-7, 33408- 9, 87841-8, PINR, 60111-9 #### [facility] ([id number]) [address] [place], [place] [address] Protein [Mass/Vol] 7.2 g/dL Normal 6.0-8.0 [facility] Comment on above: Performed By: #### C BCA, CMP, 3040-3, 85499-4, 07580-3, 58806- 9, 74799-8, PINR, 71205-7 #### [facility] ([id number]) [address] [place] [address]139 Sodium [Moles/Vol] 139 mmol/L Normal 134-146 [facility] Comment on above: Performed By: #### C BCA, CMP, 3040-3, 25640-1, 96422-7, 06390- 9, 14984-5, PINR, 14142-9 #### [facility] ([id number]) [address] [place] [address] 04846 Urea nitrogen [Mass/Vol] 20 mg/dL Normal 5-23 [facility] Comment on above: Performed By: #### C BCA, CMP, 3040-3, 87199-8, 30902-2, 52045- 9, 26345-1, PINR, 96673-3 #### [facility] ([id number]) [address] [place] [address] CT LUMBAR SPINE W CONTon CT LUMBAR SPINE W CONT CT LUMBAR SPINE W CONT CT lumbar spine following myelogram History: Sacral wound. 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 Abnormal physical examination. Deep wound Comparison: 06/22/2023 Technique: Following the myelogram the patient was sent to the CT suite. Imaging through the lumbar spine was obtained. Initially axial images were obtained followed by sagittal and coronal reconstructed images. Automated exposure control was used Findings: Air and soft tissue defect is appreciated superficial to the sacrococcygeal junction. No CT evidence of osteomyelitis. No obvious cortical destruction or heterotopic calcification. Wound nearly abuts the sacrococcygeal junction. If concern for infection persists consider follow-up MR. Chronic changes about L1-2 are appreciated. These have slightly progressed since the prior study this protrusion osteophyte complex formation is appreciated. There is underlying scoliosis noted. Asymmetric disc collapse is appreciated at this level. Intramedullary pyramids of the kidneys are increased in their attenuation. Small urinary bladder stones are appreciated layering dependently. Catheter is noted in the bladder. Impression: * No CT evidence of osteomyelitis. Air and soft tissue abnormality abuts the sacrococcygeal junction. No drainable abscess is seen. If concern for osteomyelitis remains consider follow-up MR imaging. Additional more chronic findings are detailed above. Follow-up is requested All CT scans at this facility use dose modulation, iterative reconstruction, and/or weight based dosing when appropriate to reduce radiation dose to as low as reasonably achievable. Finalized by Catina Kimbrough MD on 10/08/2023 1:33 PM Normal [facility] LIPASEon 10-08-2023 Lipase [Catalytic activity/Vol] 23 U/L Normal 17-40 [facility] Comment on above: Performed By: #### C BCA, CMP, 3040-3, 55524-2, 62091-9, 03688- 9, 80418-4, PINR, 47392-0 #### [facility] ([id number]) [address] [place] [address] 07068 Lactate (P rufina) [Moles/Vol]o n 10-08-2023 LACTATE W/REFLEX 1.1 mmol/L Normal 0.4-2.0 [facility] Comment on above: Result Comment: Result did not trigger repeat Lactate, re-order if needed. Performed By: #### C BCA, CMP, 3040-3, 22090-3, 91173-7, 57638-9, 09324-9, PINR, 64402-5 #### [facility] ([id number]) [address] [place] [address] MAGNESIUMon 10-08-2023 Magnesium [Mass/Vol] 2.1 mg/dL Normal 1.8-2.6 [facility] Comment on above: Performed By: #### C BCA, CMP, 3040-3, 64061-4, 67962-5, 34124- 9, 53189-0, PINR, 29277-3 #### [facility] ([id number]) [address] [place] [address] 98531 Natriuretic peptide B [Mass/ Vol]on 10-08-2023 BRN NATRIURETIC PEP <5 Normal <100.0 [facility] Comment on above: Performed By: #### C BCA, CMP, 3040-3, 83306-5, 23233-9, 96415- 9, 26384-6, PINR, 78081-8 #### [facility] ([id number]) [address] [place] [address] 57345 PROTIME AND INRon 10-08-2023 INR Coag (PPP) [Relative time] 1.4 {INR} High 0.8-1.1 [facility] Comment on above: Performed By: #### C BCA, CMP, 3040-3, 76345-7, 63319-4, 71056- 9, 82122-4, PINR, 17075-8 #### [facility] ([id number]) [address] [place] [address] 36948 PT Coag (PPP) [Time] 16.3 s High 9.8-13.2 [facility] Comment on above: Result Comment: NEW REFERENCE RANGE Performed By: #### C BCA, CMP, 3040-3, 31977-2, 51869-0, 89649-3, 18706-8, PINR, 73538-5 #### [facility] ([id number]) [address] [place] [address] 46362 SUPERFICIAL WOUND CULTUREon 10-08-2023 Bacteria identified Aer cx Nom (Wound) GRAM STAIN 0 WHITE BLOOD CELLS/LPF 0 to 1 SQUAMOUS EPITHELIAL CELLS/LPF MODERATE GRAM POSITIVE COCCI IN PAIRS CULTURE RESULTS FEW MIXED GRAM POSITIVE AND GRAM NEGATIVE ORGANISMS NO STAPHYLOCOCCUS AUREUS ISOLATED NO BETA HEMOLYTIC STREPTOCOCCI ISOLATED NO PSEUDOMONAS AERUGINOSA ISOLATED Normal [facility] Comment on above: Performed By: #### C BCA, CMP, 3040-3, 90133-3, 57930-2, 37871- 9, 60750-9, PINR, 94125-9 #### [facility] ([id number]) [address] [place] [address] 03410 TROPONIN Ion 10-08-2023 Troponin I.cardiac [Mass/Vol] 0.03 ng/mL Normal 0.00-0.04 [facility] Comment on above: Performed By: #### C BCA, CMP, 3040-3, 38344-1, 45032-8, 49959- 9, 15380-3, PINR, 65748-8 #### [facility] ([id number]) [address] [place] [address] 75339 XR CHEST 1 VWon 10-08-2023 XR CHEST 1 VW XR CHEST 1 VW Clinical history: Sepsis Views: 1 Comparison: 08/23/2023 Findings/Impression: 1. Shallow inspiration with lower lobe atelectasis and small effusions. Findings are similar to the previous exam. 2. Heart size stable. 3. Tracheostomy unchanged in position. Finalized by Tayler Mccoy MD on 10/08/2023 12:59 PM Normal [facility] aPTT Coag (PPP) [Time]on aPTT Coag (Bld) [Time] 38 s High 26-37 [facility] Comment on above: Result Comment: NEW REFERENCE RANGE Performed By: #### C BCA, CMP, 3040-3, 01653-0, 99063-2, 96950-3, 50247-9, PINR, 79092-8 #### [facility] ([id number]) [address] [place] [address], [place] [address] XR CHEST PORTABLEon 07-25-20 XR CHEST PORTABLE EXAMINATION: ONE XRAY VIEW OF THE CHEST 07/25/2023 8:08 am COMPARISON: 07/22/2023 HISTORY: ORDERING SYSTEM PROVIDED HISTORY: pneumonia TECHNOLOGIST PROVIDED HISTORY: Reason for Exam:->pneumonia Height:157.5cm Weight:80.287kg Reason for Exam: pneumonia FINDINGS: Stable tracheostomy tube. Suboptimal inspiration.. Slightly improved bibasal infiltrates and small bilateral pleural effusions.. No evidence of pneumothorax. No other significant changes are seen. IMPRESSION: Slightly improved bibasal infiltrates and small bilateral pleural effusions when compared to the prior exam Interpreted by: Thom Rhoades MD Signed by: Thom Rhoades MD 07/25/23 Final result Normal [facility] XR CHEST PORTABLEon 07-22-20 XR CHEST PORTABLE EXAMINATION: ONE XRAY VIEW OF THE CHEST 07/22/2023 9:20 am COMPARISON: 07/19/2023 HISTORY: ORDERING SYSTEM PROVIDED HISTORY: f/u RLL infiltrate TECHNOLOGIST PROVIDED HISTORY: Reason for Exam:->f/u RLL infiltrate Portable?->Yes Height:157.5cm Weight:78.926kg Reason for Exam: rll infiltrate FINDINGS: Cardiac silhouette is within normal limits. Pulmonary vasculature is within normal limits. Tracheostomy tube is stable. No pneumothorax is identified. There is persistent increased density in the retrocardiac left lung and medially at the right lung base. Infiltrates cannot be excluded. Fusion hardware is noted in the cervical spine. IMPRESSION: Stable bibasilar increased density suspicious for infiltrates. Follow-up recommended. Interpreted by: Logan aVlera MD Signed by: Logan Valera MD 07/22/23 Final result Normal [facility] XR CHEST PORTABLEon 07-19-20 XR CHEST PORTABLE EXAMINATION: ONE XRAY VIEW OF THE CHEST 07/19/2023 9:32 am COMPARISON: 07/15/2023 HISTORY: ORDERING SYSTEM PROVIDED HISTORY: fever TECHNOLOGIST PROVIDED HISTORY: Reason for Exam:->fever Height:157.5cm Weight:83.915kg Reason for Exam: fever FINDINGS: Tracheostomy tube remains place. Heart size stable. Increased bibasilar opacities. No pneumothorax. IMPRESSION: Increased bibasilar opacities suggesting multifocal pneumonia Interpreted by: Nghia Suarez MD Signed by: Nghia Suarez MD 07/19/23 Final result Normal [facility] XR CHEST PORTABLEon 07-15-20 XR CHEST PORTABLE EXAMINATION: ONE XRAY VIEW OF THE CHEST 07/15/2023 6:55 am COMPARISON: 07/11/2023 HISTORY: ORDERING SYSTEM PROVIDED HISTORY: pneumonia TECHNOLOGIST PROVIDED HISTORY: Reason for Exam:->pneumonia Portable?->Yes Height:157.5cm Weight:81.194kg Reason for Exam: Pneumonia FINDINGS: Tracheostomy tube remains in place. Heart size stable. Bibasilar hypoaeration. Persistent consolidation in the right lower lobe. No pneumothorax. IMPRESSION: Persistent right lower lobe consolidation suggesting pneumonia Interpreted by: Nghia Suarez MD Signed by: Nghia Suarez MD 07/15/23 Final result Normal [facility] XR CHEST PORTABLEon 07-11-20 XR CHEST PORTABLE EXAMINATION: ONE XRAY VIEW OF THE CHEST 07/11/2023 10:46 am COMPARISON: 07/07/2023 HISTORY: ORDERING SYSTEM PROVIDED HISTORY: resp failure TECHNOLOGIST PROVIDED HISTORY: Reason for Exam:->resp failure Height:157.5cm Weight:82.555kg Reason for Exam: respiratory failure FINDINGS: Tracheostomy tube remains in place. Improved aeration in the left lower lobe. Stable right basilar infiltrate. Right pleural effusion. No pneumothorax. IMPRESSION: Improved aeration left lower lobe Persistent right lower lobe infiltrate Interpreted by: Nghia Suarez MD Signed by: Nghia Suarez MD 07/11/23 Final result Normal [facility] XR CHEST PORTABLEon 07-07-20 XR CHEST PORTABLE EXAMINATION: ONE XRAY VIEW OF THE CHEST 07/07/2023 9:08 am COMPARISON: None HISTORY: ORDERING SYSTEM PROVIDED HISTORY: resp failure TECHNOLOGIST PROVIDED HISTORY: Reason for Exam:->resp failure Portable?->Yes Height:157.5cm Weight:84.369kg Reason for Exam: resp failure FINDINGS: Stable tracheostomy. Bilateral lower lobe infiltrates worse on the left consistent with pneumonia. Increased opacity over the left chest likely representing pleural effusion. Cardiomegaly. IMPRESSION: Stable tracheostomy. Bilateral lower lobe infiltrates worse on the left with likely pleural effusions worse on the left. Pneumonia is likely. Aspiration should be considered. Interpreted by: Heavenly Kent MD Signed by: Heavenly Kent MD 07/07/23 Final result Normal [facility] Retail - Clinical Noteon Retail - Clinical Note [id number]:127 Normal [facility] Ambulatory Visit Summaryon 0 10-01-2022 Ambulatory Visit Summary LOLIS SALCEDO III :1985 Visit Date:10/01/2022 Ambulatory Visit Instructions Your Diagnosis Chronic prostatitis Flaccid neurogenic bladder Incomplete bladder emptying Tests Performed Urnls Dip Stick Auto w/o Microscopy POC 09459 Your Care Team Attending Physician - Cj SHAFER MD Primary Care Physician - ELAINE PONCE MD This Is Your Medications List Contact prescribing physician if questions or concerns acetaminophen (Tylenol) albuterol hydrOXYzine (Vistaril) ibuprofen (ibuprofen 200 mg oral capsule) multivitamin (Multi Vitamin+) Procedures Performed Diagnostic endoscopic examination on colon (01/22/2019), back surgery, Repair of inguinal hernia. Discharge Vitals Heart Rate (Peripheral) 70 Respiratory Rate 16 Blood Pressure 129/80 Height 160 cm Height 63 in Weight 95 kg Weight 209 lb BMI 37.11 What to do next Scheduled Follow-Up Appointments Saturday 10:15 AM EST With: ANNABELLE ANGUIANO, jC Rodas Where: [facility] Normal [facility] Patient Educationon 10-01-19 Patient Education Infectious Disease Prostatitis Prostatitis is swelling or inflammation of the prostate gland. The prostate is a walnut-sized gland that is involved in the production of semen. It is located below a man's bladder, in front of the rectum. There are four types of prostatitis: ? Chronic nonbacterial prostatitis. This is the most common type of prostatitis. It may be associated with a viral infection or autoimmune disorder. ? Acute bacterial prostatitis. This is the least common type of prostatitis. It starts quickly and is usually associated with a bladder infection, high fever, and shaking chills. It can occur at any age. ? Chronic bacterial prostatitis. This type usually results from acute bacterial prostatitis that happens repeatedly (is recurrent) or has not been treated properly. It can occur in men of any age but is most common among middle-aged men whose prostate has begun to get larger. The symptoms are not as severe as symptoms caused by acute bacterial prostatitis. ? Prostatodynia or chronic pelvic pain syndrome (CPPS). This type is also called pelvic floor disorder. It is associated with increased muscular tone in the pelvis surrounding the prostate. What are the causes? Bacterial prostatitis is caused by infection from bacteria. Chronic nonbacterial prostatitis may be caused by: ? Urinary tract infections (UTIs). ? Nerve damage. ? A response by the body?s disease-fighting system (autoimmune response). ? Chemicals in the urine. The causes of the other types of prostatitis are usually not known. What are the signs or symptoms? Symptoms of this condition vary depending upon the type of prostatitis. If you have acute bacterial prostatitis, you may experience: ? Urinary symptoms, such as: ? Painful urination. ? Burning during urination. ? Frequent and sudden urges to urinate. ? Inability to start urinating. ? A weak or interrupted stream of urine. ? Vomiting. ? Nausea. ? Fever. ? Chills. ? Inability to empty the bladder completely. ? Pain in the: ? Muscles or joints. ? Lower back. ? Lower abdomen. If you have any of the other types of prostatitis, you may experience: ? Urinary symptoms, such as: ? Sudden urges to urinate. ? Frequent urination. ? Difficulty starting urination. ? Weak urine stream. ? Dribbling after urination. ? Discharge from the urethra. The urethra is a tube that opens at the end of the penis. ? Pain in the: ? Testicles. ? Penis or tip of the penis. ? Rectum. ? Area in front of the rectum and below the scrotum (perineum). ? Problems with sexual function. ? Painful ejaculation. ? Bloody semen. How is this diagnosed? This condition may be diagnosed based on: ? A physical and medical exam. ? Your symptoms. ? A urine test to check for bacteria. ? An exam in which a health care provider uses a finger to feel the prostate (digital rectal exam). ? A test of a sample of semen. ? Blood tests. ? Ultrasound. ? Removal of prostate tissue to be examined under a microscope (biopsy). ? Tests to check how your body handles urine (urodynamic tests). ? A test to look inside your bladder or urethra (cystoscopy). How is this treated? Treatment for this condition depends on the type of prostatitis. Treatment may involve: ? Medicines to relieve pain or inflammation. ? Medicines to help relax your muscles. ? Physical therapy. ? Heat therapy. ? Techniques to help you control certain body functions (biofeedback). ? Relaxation exercises. ? Antibiotic medicine, if your condition is caused by bacteria. ? Warm water baths (sitz baths). Sitz baths help with relaxing your pelvic floor muscles, which helps to relieve pressure on the prostate. Follow these instructions at home: ? Take khhe-byc-fqvcvjg and prescription medicines only as told by your health care provider. ? If you were prescribed an antibiotic, take it as told by your health care provider. Do not stop taking the antibiotic even if you start to feel better. ? If physical therapy, biofeedback, or relaxation exercises were prescribed, do exercises as instructed. ? Take sitz baths as directed by your health care provider. For a sitz bath, sit in warm water that is deep enough to cover your hips and buttocks. ? Keep all follow-up visits as told by your health care provider. This is important. Contact a health care provider if: ? Your symptoms get worse. ? You have a fever. Get help right away if: ? You have chills. ? You feel nauseous. ? You vomit. ? You feel light-headed or feel like you are going to faint. ? You are unable to urinate. ? You have blood or blood clots in your urine. This information is not intended to replace advice given to you by your health care provider. Make sure you discuss any questions you have with your health care provider. Document Released: 08/23/2001 Document Revised: 11/08/2018 Docum (more content not included)... Normal [facility] Urology Office/Clinic Noteon 10-01-2022 Urology Office/Clinic Note Chief Complaint 1 year f/u HPI Staff Pt is here for 1 year f/u. Previous dx of chronic prostatitis, flaccid neurogenic bladder and incomplete emptying of bladder. Pt states that he is doing CIC daily 4-6x. Dysuria: pt does not void on his own Incomplete bladder emptying: yes he does CIC Hematuria: no Frequency: no Urgency: no Nocturia: no Stream: does not void on his own Leaking: no Post void dripping: no Wearing pads/ Depends: no Urge incontinence: no Stress incontinence: no Incontinence without Sensory Awareness: no Abdominal pain: no Flank pain: has back pain due to scoliosis Sexual complaints: no History of Present Illness Tests reviewed: reviewed UA. I have reviewed the previous health record information and history for this patient from Dr. Shafer. I have reviewed and verified the staff HPI to be accurate for this encounter. There have been no associated fever, chills, flank pain, or blood in the urine. Denies any urinary infections since last encounter. Review of Systems PHQ Score Initial Depression Screen Score: 0 ROS - Provider Constitutional: denies weight loss, denies hot flashes. Eyes: denies eye problems. Gastrointestinal: denies nausea, denies vomiting. Cardiovascular: denies chest pain or angina. Integumentary: no dryness Musculoskeletal: denies musculoskeletal symptoms. ENMT: denies otolaryngeal symptoms. Respiratory: no shortness of breath. Heme/Lymph: denies easy bleeding tendency, denies easy bruising tendency. Psychiatric: no confusion, no anxiety. Genitourinary: See HPI. Physical Exam Vitals & Measurements HR: 70(Peripheral) RR: 16 BP: 129/80 HT: 63 in HT: 160 cm WT: 95 kg WT: 209 lb BMI: 37.11 General Appearance: alert, no distress, well nourished, well developed male. Genitourinary: normal scrotum, normal testes, normal urethra, normal epididymis, normal vas deferens/spermatic cord. Flank Pain: none. Bladder: nonpalpable. Assessment/Plan 1. Chronic prostatitis (N41.1: Chronic prostatitis) Pt reports [facility] Was having lower pain, discharge. Completed abx course for 1 month. Has not had any infections since. Pt to call if he has an infection. Overall pt is doing well and has only had 1 infections since our last encounter. Follow up in 1 year. All questions/concerns were discussed. Pt to call the office if heencounters any issues prior. Pt acknowledges understanding and agrees with plan. 2. 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 Pt does not void on his own. Continues CIC 4-6x/day. UA today shows small leuks, pt does CIC. Pt not taking any bladder or prostate medications. 3. Incomplete bladder emptying (R33.9: Retention of urine, unspecified) Pt continues CIC 4-6x/day. Occasionally has the urge to urinate Pt will cath before bed and does not always sleep until morning, will have to cath in the night. 2pm is the largest volume. Has not been leaking. Pt to not make any changes and to continue CIC. Follow-up With When Contact Information ANNABELLE ANGUIANO, Cj Rodas, URL [facility] [address], [place] [address]- Additional Instructions: f/u 1 yr Patient Education Prostatitis Sapphire Hightower, personally scribed for Dr. Shafer on 10/01/2022 11:20:11. . Documentation recorded by the scribe, Sapphire Fuller, accurately reflects the services(s) I performed and decisions made by me. Authenticated by Dr. Shafer on 10/01/2022 11:21:22. Problem List/Past Medical History Ongoing Chronic prostatitis Flaccid neurogenic bladder Flank pain Incomplete bladder emptying Retention of urine Weak urinary stream Historical Arthritis Depression Scoliosis Procedure/Surgical History Diagnostic endoscopic examination on colon (01/22/2019), back surgery, Repair of inguinal hernia. Medications albuterol ibuprofen 200 mg oral capsule, Oral, q6hr Multi Vitamin+ Tylenol, Oral Vistaril, Oral, QID Allergies JORGE inhibitors (Rash) PROzac (Suicidal behavior) fentaNYL (Moderate) Social History Tobacco Never (less than 100 in lifetime) Tobacco Use:., 10/05/2019 Never (less than 100 in lifetime) Tobacco Use:., 09/30/2019 Family History Family history is unknown Immunizations Vaccine Date Status Comments influenza virus vaccine, inactivated 06/11/2022 Recorded SARS-CoV-2 (COVID-19) mRNA-1273 vaccine 09/12/2021 Recorded influenza virus vaccine, inactivated 07/03/2021 Recorded influenza virus vaccine, inactivated 06/2021 Recorded SARS-CoV-2 (COVID-19) mRNA-1273 vaccine 10/21/2020 Recorded SARS-CoV-2 (COVID-19) mRNA-1273 vaccine 09/23/2020 Recorded SARS-CoV-2 (COVID-19) mRNA-1273 vaccine 2020 Recorded Pt has had all 3 shots to date but does not have his card today. influenza virus vaccine, inac (more content not included)... Normal [facility] Comment on above: Result Comment: Elec tronically Signed By: Cj SHAFER MD R\.br\Date and Time Signed: 10/01/22 11:21 EST\.br\Electronically Co-Signed By: Sapphire Fuller\.br\Date and Time Co-Signed: 10/01/22 11:20 EST ER URINE PROFILEon 2 Bilirubin Ql (U) Negative Normal NEGATIVE [facility] Comment on above: Performed By: #### CATHY BOGGS #### [facility] [address] [place] [address] Dr. Alecia Trejo Clarity (U) CLEAR Normal CLEAR [facility] Comment on above: Performed By: #### REMY BOGGSRO #### [facility] [address] [place] [address] Dr. Alecia Trejo Color (U) LT. YELLOW Normal YELLOW [facility] Comment on above: Performed By: #### REMY BOGGSRO #### [facility] [address] [place] [address] Dr. Alecia Treoj ERUANJUD A micrscopic examination will be performed if indicated. Normal [facility] Comment on above: Performed By: #### REMY BOGGSRO #### [facility] [address] [place] [address] Dr. Alecia Trejo Glucose Ql (U) Negative Normal NEGATIVE [facility] Comment on above: Performed By: #### REMY BOGGSRO #### [facility] [address] [place] [address] Dr. Alecia Trejo Hemoglobin Ql (U) Negative Normal NEGATIVE [facility] Comment on above: Performed By: #### REMY BOGGSRO #### [facility] [address] [place] [address] Dr. Alecia Trejo Ketones Ql (U) Negative Normal NEGATIVE [facility] Comment on above: Performed By: #### REMY BOGGSRO #### [facility] [address] [place] [address] Dr. Alecia Trejo LEUKOCYTES TRACE Abnormal NEGATIVE [facility] Comment on above: Performed By: #### REMY BOGGSRO #### [facility] [address] [place] [address] Dr. Alecia Trejo Nitrite Ql (U) Negative Normal NEGATIVE [facility] Comment on above: Performed By: #### REMY BOGGSRO #### [facility] [address] [place] [address] Dr. Alecia Trejo pH (U) 6.5 [pH] Normal 5-9 [facility] Comment on above: Performed By: #### REMY BOGGSRO #### [facility] [address] [place] [address] Dr. Alecia Trejo SPEC GRAVITY 1.015 Normal 1.005-<=1.02 5 [facility] Comment on above: Performed By: #### REMY BOGGSRO #### [facility] [address] [place] [address] Dr. Alecia Trejo UA PROTEIN Negative Normal NEGATIVE/ TRACE The [facility] Comment on above: Performed By: #### REMY BOGGSRO #### [facility] [address] [place] [address] Dr. Alecia Trejo UR MICRO IND INDICATED Normal [facility] Comment on above: Performed By: #### E RUR, UMICRO #### [facility] [address] [place] [address] Dr. Alecia Trejo Urobilinogen Qn (U) 0.2 {Mayra'U}/dL Normal 0.2 - 1. 0 [facility] Comment on above: Performed By: #### E RUR, UMICRO #### [facility] [address] [place] [address] Dr. Alecia Trejo URINE MICROSCOPIC ONLYon BACTERIA NONE SEEN Normal NONE SEEN The [facility] Comment on above: Performed By: #### E RUR, UMICRO #### [facility] [address] [place] [address] Dr. Alecia Trejo Bacteria identified Cx Nom (U) NOT INDICATED Normal [facility] Comment on above: Performed By: #### E RUR, UMICRO #### [facility] [address] [place] [address] Dr. Alecia Trejo CAST NONE SEEN Normal NONE SEEN [facility] Comment on above: Performed By: #### E RUR, UMICRO #### [facility] [address] [place] [address] Dr. Alecia Trejo Crystals LM Nom (Urine sed) NONE SEEN Normal NONE SEEN [facility] Comment on above: Performed By: #### E RUR, UMICRO #### [facility] [address] [place] [address] Dr. Alecia Trejo Epithelial cells LM Ql (Urine sed) NONE SEEN Normal NONE SEEN /RARE The [facility] Comment on above: Performed By: #### E RUR, UMICRO #### [facility] [address] [place] [address] Dr. Alecia Trejo MUCOUS NONE SEEN Normal NONE SEEN The [facility] Comment on above: Performed By: #### E RUR, UMICRO #### [facility] [address] [place] [address] Dr. Alecia Trejo RBC 0-2 Normal 0-2 The [facility] Comment on above: Performed By: #### E RUR, UMICRO #### [facility] [address] [place], [place] [address] Dr. Alecia Trejo WBC 0-2 Abnormal NONE SEEN The [facility] Comment on above: Performed By: #### E CATHY SAAVEDRA #### [facility] [address] [place], [place] [address] Dr. Alecia Trejo MRI LSPINE WO CONon 03-07-20 MRI LSPINE WO CON EXAMINATION: MRI LSPINE WO CON HISTORY: Lumbago co-occurrent with right-side sciatica COMPARISON: No relevant comparison available. TECHNIQUE: A variety of imaging planes and parameters were utilized for visualization of suspected pathology. FINDINGS: For the purposes of numbering, sagittal T2 image # 10 extends from the T10 vertebral body superiorly to the S3 level inferiorly. PARASPINAL AREA: Normal with no visible mass. BONES: Rotatory levoscoliosis. 5 mm retrolisthesis of right L1 on L2. Degenerative spondylosis. Moderate decreased T1 increased T2 signal lower half of the L1 and upper half of the L3 vertebral bodies, Modic 2 changes CORD/CAUDA EQUINA: Normal caliber, contour, and signal intensity. DISC LEVELS: 12-L1: Disc desiccation. Mild posterior broad-based disc protrusion and facet osteoarthropathy. No definite central or foraminal stenosis. L1-L2: Disc collapse with endplate sclerosis right greater than left. 5 mm retrolisthesis of the right L1 on L2. Moderate diffuse disc/osteophyte complex and facet osteoarthropathy Moderate central canal stenosis best seen on axial image #9. Moderate right and mild left foraminal stenosis L2-L3: Disc desiccation. Minimal diffuse disc bulge and facet osteoarthropathy. No central or foraminal stenosis L3-L4: Disc desiccation. Minimal diffuse disc bulge and facet osteoarthropathy. No central or right foraminal stenosis. Mild left foraminal stenosis L4-L5: Disc desiccation. Minimal diffuse disc bulge and facet osteoarthropathy. No central or right foraminal stenosis. Mild left foraminal stenosis L5-S1: No significant disc/facet abnormality, spinal stenosis, or foraminal stenosis. IMPRESSION: Severe degenerative changes and asymmetric spondylolisthesis along the right L1-L2 vertebral body. Associated significant central and foraminal stenosis Additional degenerative changes resulting in mild left L3-L4 and L4-L5 foraminal stenosis Modic type I changes at the L1-L2 level suggesting edema and inflammation Electronically authenticated by: CLAIR CORTES Date: 2022-03-07 14:18 Normal [facility] XR CSPINE 2_3 VIEWSon 2021 XR CSPINE 2_3 VIEWS EXAMINATION: XR TSPINE 3 VIEWS, XR CSPINE 2_3 VIEWS, XR LSPINE MIN 4 VIEWS HISTORY: Idiopathic scoliosis of thoracic and lumbar spine COMPARISON: No relevant comparison available. FINDINGS: BONES: Reversal of normal cervical lordosis with 2 mm anterolisthesis of C4 on C5. Anterior fusion C5-C7. 20 degrees of cervicothoracic levocurvature measured from C2 to T2. No thoracic spondylolisthesis. 7 mm of retrolisthesis of L1 on L2. Rotatory levoscoliosis of the thoracolumbar spine measuring 23 degrees from T12 to L4. Moderate to severe degenerative spondylosis L1-L2 DISC SPACES: Disc collapse at L1-L2 with sclerosis of the vertebral bodies. Interbody spacer C5-6 and C6-C7 PARASPINOUS: Negative. No paraspinous abnormality is seen. IMPRESSION: Levoscoliosis of the cervical thoracic spine and thoracolumbar spine as detailed above Moderate to severe diffuse degenerative changes 7 mm retrolisthesis of L1 on L2 Electronically authenticated by: CLAIR CORTES Date: 2022-02-12 20:52 Normal [facility] ELBOW LEFT 3 VWSon 2 ELBOW LEFT 3 [facility] Department of Radiology [address] [place] [id number] Patient Name: LOLIS SALCEDO : 1985 Sex: M Age: Race: White Pt. Location: [facility] Patient Status: E Ordered Date: 12/22/2021 5:55:00 PM Completed Date: 12/22/2021 06:12 PM Requesting Provider: CHRISTINE OCHOA Attending Provider: DAT PERALTA Report Copy To: Signs & Symptoms: Pain History: Comments: FX Exam: ELBOW LEFT 3 [facility] ELBOW LEFT 3 [facility] 12/22/2021 6:12 PM CLINICAL INDICATIONS: Pain TECHNOLOGIST COMMENTS: pt states he fell on his elbows today at 4:00pm, pain in bilateral elbows, history of dislocation to both elbows twice each best possible images QUESTION FOR THE RADIOLOGIST: FX PROTOCOL: AP,Lateral and Oblique views were obtained. COMPARISON: None FINDINGS: Posterior soft tissue swelling. No elbow joint effusion. No acute fracture. No dislocation. IMPRESSION: 1. No acute osseous abnormalities or elbow joint effusion. 2. Posterior soft tissue swelling. Electronically signed: Haroldo Trivedi. Transcribed by: [email or web address], User Resident: Electronically Signed by: HAROLDO TRIVEDI @ 12/22/2021 06:22 PM Normal [facility] Comment on above: Order Comment: FX ELBOW RIGHT 3 [facility] 12-23-19 22 ELBOW RIGHT 3 [facility] Department of Radiology [address] [place] [phone] Patient Name: LOLIS SALCEDO : 1985 Sex: M Age: Race: White Pt. Location: [facility] Patient Status: E Ordered Date: 12/22/2021 5:55:00 PM Completed Date: 12/22/2021 06:10 PM Requesting Provider: CHRISTINE OCHOA Attending Provider: DAT PERALTA Report Copy To: Signs & Symptoms: Pain History: Comments: FX Exam: ELBOW RIGHT 3 VWS ELBOW RIGHT 3 VWS 12/22/2021 6:10 PM CLINICAL INDICATIONS: Pain TECHNOLOGIST COMMENTS: pt states he fell on both of his elbows at 4:00pm today, pain in bilateral elbows, history of dislocations to both elbows 2 times best possible images QUESTION FOR THE RADIOLOGIST: FX PROTOCOL: AP,Lateral and Oblique views were obtained. COMPARISON: 01/31/2018 FINDINGS: No elbow joint effusion. No fracture or dislocation. Posterior soft tissue swelling. IMPRESSION: 1. No acute osseous abnormalities or elbow joint effusion. 2. Posterior soft tissue swelling. Electronically signed: Haroldo Trivedi. Transcribed by: [email or web address], User Resident: Electronically Signed by: HAROLDO TRIVEDI @ 12/22/2021 06:23 PM Normal [facility] Comment on above: Order Comment: FX CT CHEST WO CONon 12-11-2021 CT CHEST WO CON EXAMINATION: CT CHES T WO CON HISTORY: Solitary nodule of lung COMPARISON: 05/22/2021 TECHNIQUE: Multi-planar CT images were created with IV contrast. Axial, Coronal, and Sagittal images. Dose reduction techniques were achieved by using automated exposure control and/or adjustment of mA and/or kV according to patient size and/or use of iterative reconstruction technique. FINDINGS: LUNGS: 1.9 x 1.4 cm centrally calcified lobular mildly spiculated left lower lobe nodule best seen on axial image 105, stable from the prior exam. No additional pulmonary nodule or mass. No bronchiectasis or peribronchial thickening. PLEURA: No mass, effusion, or pneumothorax. VASCULATURE: No abnormality. YESIKA: Calcified left hilar lymph nodes MEDIASTINUM: No pathologic lymphadenopathy CARDIAC: No enlargement, pericardial thickening, or significant calcification. AORTA: No aneurysm or dissection. CHEST WALL: No mass or axillary adenopathy. BONES: No bone lesion or fracture. LIMITED ABDOMEN: No suspicious findings. Limited images of the upper abdomen. OTHER: Negative. IMPRESSION: Stable centrally calcified 1.9 cm left lower lobe nodule. Electronically authenticated by: CLAIR CORTES Date: 2021-12-11 15:45 Normal [facility] XR wrist RT 2Von 11-28-2021 XR wrist RT 2V [facility] Main [place] [id number] XRay Report Signed Patient: Lolis Salcedo III MR#: [id number] : 1985 Acct:[id number] Age/Sex: 36 / M ADM Date: 11/28/21 Loc: [facility] Room: Type: [facility] CLI Attending Dr: Tayler Dill MD Ordering Provider: Tayler Dill MD Date of Service: 11/28/21 XR/XR wrist RT 2V: Closed fracture of distal end of right radius with routine h Copies to: Tayler Dill MD 2 viewsRIGHT wrist plain film COMPARISON:11/07/21 HISTORY:Status post RIGHT distal radius fracture Healing distal fibular fracture identified. Bony alignment unchanged. Old ulnar styloid fracture identified. Distal radioulnar dissociation redemonstrated. 1st metacarpal phalangeal dislocation present. XR/XR wrist RT 2V IMPRESSION:Healing distal radius fracture. Impression dictated by: Ivan Allan M.D.11/28/2021 1:13 PM Dictation Location: [place] [address] Transcribed By: [facility] 11/28/21 1313 Dictated By: Ivan Allan DO 11/28/21 1311 Signed By: 11/28/21 1313 Normal [facility] XR chest 2V*on 03-30-2021 XR chest 2V* [facility] Main [address] [address] XRay Report Signed Patient: Lolis Salcedo III MR#: [id number] : 1985 Acct:[id number] Age/Sex: 36 / M ADM Date: 03/30/21 Loc: [facility] Room: Type: [facility] CLI Attending Dr: Eden Healy NP Ordering Provider: Eden Healy NP Date of Service: 03/30/21 XR/XR chest 2V*: Cough Copies to: Eden Healy [employer]ILY [employer] PA AND LATERAL CHEST: CLINICAL HISTORY: Dry cough, shortness of breath, wheezing and chest congestion COMPARISON: CT abdomen 01/20/[address] 03/27/2011. There is a nodular symmetry at the periphery of the left lung base that may correlate with a nodule seen on the comparison [address] It was not present in 2010. Minor chronic appearing interstitial changes noted. There is no focal parenchymal consolidation, effusion or pneumothorax. The heart is top normal in size. The visualized bony structures are osteopenic. There is slight dextroscoliotic curvature. As a fusion plate at the lower cervical spine. XR/XR chest 2V* IMPRESSION: LEFT LOWER LOBE NODULARITY. THIS IS PROBABLY THE SAME NODULE SEEN IN 2019 HOWEVER IT WAS NOT PRESENT IN 2010. FOLLOW-UP COULD BE CONSIDERED TO ASSURE STABILITY. MINOR NONSPECIFIC INTERSTITIAL CHANGE. NO OTHER ACUTE FINDINGS. Impression dictated by: Kathie Salamanca M.D.03/30/2021 3:35 PM Dictation Location: [place] [address] Transcribed By: [facility] 03/30/21 1535 Dictated By: Kathie Salamanca MD 03/30/21 1455 Signed By: 03/30/21 1535 [facility] Vital Signs Date Time Vital Sign Value Performing Clinician Facility 10-01-2022 10:11-0500 Blood Pressure Location Cj SHAFER [facility] 10-01-2022 10:11-0500 Diastolic blood pressure 80 mm[Hg] Cj SHAFER [facility] 10-01-2022 10:11-0500 Heart rate 70 /min Cj SHAFER [facility] 10-01-2022 10:11-0500 Respiratory rate 16 /min Cj SHAFER [facility] 10-01-2022 10:11-0500 Systolic blood pressure 129 mm[Hg] Cj SHAFER [facility] 10-17-2021 14:15-0500 Body height 160.02 cm Tayler Hurstxa Other [facility] Other 10-17-2021 14:15-0500 Body mass index (BMI) [Ratio] 34.54 kg/m2 Tayler Olexa Other [facility] Other 10-17-2021 14:15-0500 Body weight 88.45 kg Tayler Olexa Other [facility] Other Encounters Encounter Date Encounter Type Care Provider Facility Start: 11-08-2023 ambulatory Leon Plascencia MD Work Phone: Infectious Disease Comment on above: [employer] Start: 10-24-2023 ambulatory Leon Plascencia MD Work Phone: Infectious Disease Comment on above: [employer] Start: 10-23-2023 ambulatory Leon Plascencia MD Work Phone: Infectious Disease Comment on above: [employer] [facility] Start: 10-17-2023 End: 10-17-2023 Evaluation and management of inpatient ADOLFO VALENTINE Facility:[facility] Start: 10-16-2023 End: 10-16-2023 Evaluation and management of inpatient ADOLFOCALIN VALENTINE Facility:[facility] Start: 10-10-2023 End: 10-10-2023 ambulatory ALISA Mcdaniel [facility] Start: 10-10-2023 End: 10-23-2023 Evaluation and management of inpatient ADOLFO SERGE Facility:[facility] Start: 10-08-2023 End: 10-10-2023 [facility] Start: 10-08-2023 End: 10-09-2023 Emergency department patient visit ALISA DELATORRE [facility] Start: 10-07-2023 ambulatory Cj Todd ty:[facility]LYE [facility] Start: 08-26-2023 End: 08-26-2023 ambulatory ALISA Jonas DELATORRE [facility] Start: 10-01-2022 End: 10-02-2022 ambulatory Cj SHAFER Facility:[facility] Start: 10-01-2022 End: 10-01-2022 Patient encounter procedure Cj SHAFER [facility] Start: 08-18-2022 End: 08-18-[address] ELAINE PONCE Facility: Start: 03-07-2022 End: 03-08-[address] ELAINE PONCE Facility: Start: 02-12-2022 End: 02-13-[address] ELAINE PONCE Facility: Start: 01-13-2022 End: 01-13-[address] ELAINE PONCE Facility: Start: 12-22-2021 End: 12-22-2021 Emergency department patient visit Christine Ochoa Facility:[facility] Start: 12-11-2021 End: 12-12-2021 ambulatory HAROLDO ORTIZ Facility: Start: 11-28-2021 End: 11-28-2021 ambulatory Tayler Olexa Other [facility] Other Start: 11-28-2021 Postop follow up vis it related to original px Tayler Olexa [facility] Start: 11-07-2021 End: 11-08-2021 ambulatory TAYLER OLEXA [facility] [employer] Other Start: 11-07-2021 Postop follow up vis it related to original px Tayler Olexa [facility] Start: 10-17-2021 End: 10-17-2021 ambulatory Tayler Olexa Other [facility] Other Start: 10-17-2021 [facility] visit new patient Tayler Hurstxa [facility] Start: 10-16-2021 End: 10-16-[address] ELAINE PONCE Facility: Procedures Date Procedure Procedure Detail Performing Clinician Start: 10-19-2023 Antibody screen ADOLFO RUIZ Comment on above: Order Comment: Speci men Type: BLOOD SPECIMENOrdering Facility: [facility] Address: [address] [place] [address] Performed By: #### T SCR ####CC MAIN BLOOD BANKCLIA [id number] [address] Start: 10-18-2023 H/O: tracheostomy History of tracheostomy Leon Plascencia MD Work Phone: Start: 10-16-2023 Antibody screen ADOLFO RUIZ Comment on above: Order Comment: Speci men Type: BLOOD SPECIMENOrdering Facility: [facility] Address: [address] [place] [address] Performed By: #### T SCR ####CC MAIN BLOOD BANKCLIA [id number] [address] Start: 10-13-2023 Antibody screen ADOLFO RUIZ Comment on above: Order Comment: Speci men Type: BLOOD SPECIMENOrdering Facility: [facility] Address: [address] [place] [address] Performed By: #### T SCR ####CC MAIN BLOOD BANKCLIA [id number] [address] Start: 10-10-2023 Maia VALENTINE Start: 10-10-2023 Antibody screen ADOLFO RUIZ Comment on above: Order Comment: Speci men Type: BLOOD SPECIMENOrdering Facility: [facility] Address: [address] [place] [address] Performed By: #### T SCR ####CC MAIN BLOOD BANKCLIA [id number] [address] Start: 06-11-2023 Lipid 1996 panel - S emely or Plasma Leon Plascencia MD Work Phone: Start: 01-22-2019 Diagnostic endoscopi c examination on colon Cj SHAFER back surgery Cjmaurice SHAFER Repair of inguinal hernia Kian lairdsarah SHAFER Plan of Treatment Date Care Activity Detail Author Start: 06-11-2028 Lipid panel Lipid Screening [facility] Start: 09-09-2023 Depression Assessment Depression Ass essment [facility] Start: 05-10-2023 Covid-19 Vaccine () Covid-19 Vaccine () [facility] Start: 05-10-2023 Influenza vaccination Influenza Vacc ine (#1) [facility] Start: 01-29-2003 Urine microalbumin profile DTa P,Tdap,Td Vaccine (1 - Tdap) [facility] Start: 01-29-2002 Hepatitis C screening Hepatitis C Sc reening [facility] Start: 01-29-2002 HIV screening HIV Screening [facility] Start: 1985 Hepatitis B Vaccine (1 of 3 - 3-dose series) Hepatitis B Vaccine (1 of 3 - 3-dose series) [facility] Immunizations Immunization Date Immunization Notes Care Provider Fa cility 06-11-2022 influenza virus vaccine, unspecified formulation Cj SHAFER [facility] 09-12-2021 SARS-CoV-2 (COVID-19 ) mRNA-1273 vaccine Cj SHAFER [facility] 07-03-2021 influenza virus vaccine, unspecified formulation Cj SHAFER [facility] 06-09-2021 influenza virus vaccine, unspecified formulation Cj SHAFER [facility] 10-21-2020 SARS-CoV-2 (COVID-19 ) mRNA-1273 vaccine Cj SHAFER [facility] 09-23-2020 SARS-CoV-2 (COVID-19 ) mRNA-1273 vaccine Cj SHAFER [facility] 09-09-2020 SARS-CoV-2 (COVID-19 ) mRNA-1273 vaccine Cj SHAFER [facility] Comment on above: Result Comment: Pt h as had all 3 shots to date but does not have his card today. 06-23-2020 influenza virus vaccine, unspecified formulation Cj SHAFER [facility] 06-20-2020 influenza virus vaccine, unspecified formulation Cj SHAFER [facility] 06-23-2019 influenza virus vaccine, unspecified formulation Cj SHAFER [facility] 06-02-2018 influenza virus vaccine, unspecified formulation Cj SHAFER [facility] 06-05-2017 influenza virus vaccine, unspecified formulation Cj SHAFER [facility] 07-17-2016 influenza virus vaccine, unspecified formulation Cj SHAFER [facility] 02-09-2014 influenza virus vaccine, unspecified formulation Cj SHAFER [facility] 02-13-2007 hepatitis B vaccine, pediatric or pediatric/adolescent dosage Cj SHAFER [facility] 10-16-2006 hepatitis B vaccine, pediatric or pediatric/adolescent dosage Cj SHAFER [facility] 08-28-2006 hepatitis B vaccine, pediatric or pediatric/adolescent dosage Cj SHAFER [facility] Payers Date Payer Category Payer Unknown MMO MMO SUPERMED PPO [id number] 2023-Present [phone] [address] [place] [address] PPO [id number] 2020 Worker's Compensation [id number] 1985 Unknown [id number] [id number]. 647 1984 Unknown [id number] 2.16.840.1.782344.3.579.2. 593 1985 Unknown [id number] 2.16.840.1.054281.3.579.2. 593 1984 Unknown [id number] 2.16.840.1.349332.3.579.2. 593 1984 Unknown [id number] 2.16.840.1.611048.3.579.2. 593 1984 Unknown [id number] 2.16.840.1.870438.3.579.2. 593 1984 Unknown [id number] 2.16.840.1.114154.3.579.2. 593 1984 Unknown [id number] 2.16.840.1.034527.3.579.2. 593 1984 Unknown [id number] 2.16.840.1.518800.3.579.2. 727 1984 Unknown [id number] 2.16.840.1.585874.3.579.2. 727 1984 Unknown [id number] 2.16.840.1.661191.3.579.2. 1286 1984 Unknown [id number] 2.16.840.1.713052.3.579.2. 1286 1984 Unknown [id number] 2.16.840.1.095394.3.579.2. 1286 1984 Unknown [id number] 2.16.840.1.819408.3.579.2. 1286 1984 Unknown [id number] 2.16.840.1.837521.3.579.2. 1286 1959 Unknown [id number] [id number] Social History Date Type Detail Facility Start: 10-10-2023 Sex Assigned At F [facility] Start: 10-05-2019 Tobacco smoking status Never s moked tobacco (finding) [facility] Start: 10-10-2023 Alcohol intake Current non-dr gladys of alcohol (finding) [facility] Start: 10-10-2023 History of Social function [facility] Start: 1985 Sex Assigned At Not on file C [facility] Functional Status Date Assessment Result Facility 10-01-2022 Functional Status N/A [facility] Clinical Notes 10-16-2021 to 11-08-2023 Iveth Kelly - 11/08/2023 2:05 PM EST Note Date & Type Note Facility 11-08-2023 Note HNO ID: [id number] Author: ?, ?, ? Service: ? Author Type: ? Type: Progress Notes Filed: 11/08/2023 14:05 Note Text: [place] copat stop date No follow up needed [facility] 11-08-2023 History of Presen t illness Narrative [place] copat stop date No follow up needed documented in this encounter [facility] 10-22-2023 Note [facility] 10-21-2023 Note [facility] 10-20-2023 Note [facility] 10-19-2023 Note [facility] 10-18-2023 Note [facility] 10-17-2023 Note [facility] 10-16-2023 Note [facility] 10-16-2023 Note [facility] 10-16-2023 Note [facility] 10-15-2023 Note [facility] 10-15-2023 Note [facility] 10-14-2023 Note [facility] 10-13-2023 Note [facility] 10-12-2023 Note [facility] 10-11-2023 Note [facility] [facility] 10-11-2023 Note [facility] 10-11-2023 Note [facility] 10-10-2023 Note [facility] 10-01-2022 Hospital Discharg e instructions Patient Education 10/01/2022 08:20:01 Prostatitis Prostatitis Prostatitis is swelling or inflammation of the prostate gland. The prostate is a walnut-sized gland that is involved in the production of semen. It is located below a man's bladder, in front of the rectum. There are four types of prostatitis: Chronic nonbacterial prostatitis. This is the most common type of prostatitis. It may be associated with a viral infection or autoimmune disorder. Acute bacterial prostatitis. This is the least common type of prostatitis. It starts quickly and is usually associated with a bladder infection, high fever, and shaking chills. It can occur at any age. Chronic bacterial prostatitis. This type usually results from acute bacterial prostatitis that happens repeatedly (is recurrent) or has not been treated properly. It can occur in men of any age but is most common among middle-aged men whose prostate has begun to get larger. The symptoms are not as severe as symptoms caused by acute bacterial prostatitis. Prostatodynia or chronic pelvic pain syndrome (CPPS). This type is also called pelvic floor disorder. It is associated with increased muscular tone in the pelvis surrounding the prostate. What are the causes? Bacterial prostatitis is caused by infection from bacteria. Chronic nonbacterial prostatitis may be caused by: Urinary tract infections (UTIs). Nerve damage. A response by the body s disease-fighting system (autoimmune response). Chemicals in the urine. The causes of the other types of prostatitis are usually not known. What are the signs or symptoms? Symptoms of this condition vary depending upon the type of prostatitis. If you have acute bacterial prostatitis, you may experience: Urinary symptoms, such as: ?Painful urination. ?Burning during urination. ?Frequent and sudden urges to urinate. ?Inability to start urinating. ?A weak or interrupted stream of urine. Vomiting. Nausea. Fever. Chills. Inability to empty the bladder completely. Pain in the: ?Muscles or joints. ?Lower back. ?Lower abdomen. If you have any of the other types of prostatitis, you may experience: Urinary symptoms, such as: ?Sudden urges to urinate. ?Frequent urination. ?Difficulty starting urination. ?Weak urine stream. ?Dribbling after urination. Discharge from the urethra. The urethra is a tube that opens at the end of the penis. Pain in the: ?Testicles. ?Penis or tip of the penis. ?Rectum. ?Area in front of the rectum and below the scrotum (perineum). Problems with sexual function. Painful ejaculation. Bloody semen. How is this diagnosed? This condition may be diagnosed based on: A physical and medical exam. Your symptoms. A urine test to check for bacteria. An exam in which a health care provider uses a finger to feel the prostate (digital rectal exam). A test of a sample of semen. Blood tests. Ultrasound. Removal of prostate tissue to be examined under a microscope (biopsy). Tests to check how your body handles urine (urodynamic tests). A test to look inside your bladder or urethra (cystoscopy). How is this treated? Treatment for this condition depends on the type of prostatitis. Treatment may involve: Medicines to relieve pain or inflammation. Medicines to help relax your muscles. Physical therapy. Heat therapy. Techniques to help you control certain body functions (biofeedback). Relaxation exercises. Antibiotic medicine, if your condition is caused by bacteria. Warm water baths (sitz baths). Sitz baths help with relaxing your pelvic floor muscles, which helps to relieve pressure on the prostate. Follow these instructions at home: Take [id number] and prescription medicines only as told by your health care provider. If you were prescribed an antibiotic, take it as told by your health care provider. Do not stop taking the antibiotic even if you start to feel better. If physical therapy, biofeedback, or relaxation exercises were prescribed, do exercises as instructed. Take sitz baths as directed by your health care provider. For a sitz bath, sit in warm water that is deep enough to cover your hips and buttocks. Keep all follow-up visits as told by your health care provider. This is important. Contact a health care provider if: Your symptoms get worse. You have a fever. Get help right away if: You have chills. You feel nauseous. You vomit. You feel light-headed or feel like you are going to faint. You are unable to urinate. You have blood or blood clots in your urine. This information is not intended to replace advice given to you by your health care provider. Make sure you discuss any questions you have with your health care provider. Document Released: 08/23/2001 Document Revised: 11/08/2018 Document Reviewed: 05/16/2017 [employer] Patient [employer]. Follow Up Care 10/02/2021 11:05:28 With:ANNABELLE ANGUIANO, Cj Rodas, URL Address: [facility] [address] , [place] [id number]- When: Unknown [facility] 11-28-2021 Evaluation note Encounter Date Diagnosis Assessment Notes Nov, Closed fracture of distal end of right radius with routine healing, unspecified fracture morphology, subsequent encounter (ICD-10 - S52.501D) Radiographs reviewed with patient as healed fracture. May progress activity at this time. Continue motion and strengthenin g. Call with questions/co ncerns. [employer] Other 03-01-2022 NotePROCEDURE: XR WRIST RT 2V COMPARISON: 10/16/2021 HISTORY: Closed fracture of distal end of radius FINDINGS: BONES:Stable appearance of the distal radius with no interval sclerosis. No acute or subacute fracture suspected. Persistent dislocation first carpal metacarpal and first metacarpal phalangeal joints SOFT TISSUES:Negative. No visible soft tissue swelling. EFFUSION:None visible. OTHER: Negative. IMPRESSION: No interval healing to suggest a radius fracture Electronically authenticated by: CLAIR CORTES Date: 2021-11-07 14:07[facility]03-01-[facility] Evaluation note* Encounter Date Diagnosis Assessment Notes Treatment Notes Treatment Clinical Notes Nov, Closed fracture of distal end of right radius with routine healing, unspecified fracture morphology, subsequent encounter (ICD-10 - S52.501D) Radiographs reviewed with patient. Instructed on continued avoidance of strenuous activity of the wrist, as well as continued use of the splint. May remove splint for gentle range of motion exercises. Call with questions/concerns . Patient may continue off work at this time. [employer] Other 02-08-2022 Evaluation note* Encounter Date Diagnosis Assessment Notes Treatment Notes Treatment Clinical Notes Oct, Closed fracture of distal end of right radius, unspecified fracture morphology, initial encounter (ICD-10 - S52.501A) Radiographs reviewed with patient and company. The patient has suffered a minimally displaced radius fracture. This fracture is stable and we will treat this non-operatively. We will treat this in a removable splint. The patient appears to be tolerating this well. We discussed that this injury can take at least six weeks to have early healing will need gentle motion and strength exercise for months after healing. We discussed the need to limit any weight bearing to arm or strenuous activity such as lifting. We discussed the need to keep the splint clean and dry. We discussed that this injury can lead to group home pain and wrist stiffness. [employer] Other 02-07-2022 NotePROCEDURE: XR WRIST RT MIN 3 V COMPARISON: None. HISTORY: Injury of right wrist FINDINGS: BONES:Contour deformity of the distal radius, I favor a nondisplaced acute fracture with possible intra-articular extension. Ulna styloid process fracture, corticated bone fragment suggests a remote injury. Contour deformity of the scaphoid, remote injury favored. Dislocation of the first carpometacarpal joint and suspected dislocation of the first metacarpal phalangeal joint SOFT TISSUES:Negative. No visible soft tissue swelling. EFFUSION:None visible. OTHER: Negative. IMPRESSION: Dislocation of the first carpometacarpal and metacarpophalangeal joints, lack of soft tissue swelling makes the dislocation indeterminate Suspected nondisplaced intra-articular fracture of the distal radius Electronically authenticated by: CLAIR CORTES Date: 2021-10-16 11:24[facility] Future Appointments Appointment Date:10/07/2023 10:15:00 AM Scheduled Provider:Cj SHAFER MD Location:[facility] Appointment Type:URO Office Visit [facility] TappTime History general Narrative - Reported* Type Description Date Medical History hypertension Surgical History Foot Surgery Surgical History tonsillectomy and adenoidectomy Hospitalization History See Above [facility] Other Hospital course Narrative No data available for this section [facility] [employer]Time progress note No data available for this section [facility] [employer] Summary Purpose Family History No Family History Records FoundNo Family History Records FoundNo Family History Records FoundNo Family History Records FoundNo Family History Records FoundNo Family History Records FoundNo Family History Records FoundNo Family History Records Found Advance Directives No Advanced Directives Records FoundLatest Code Status on File Code Status Date Activated Date Inactivated Comments Full Code 10/09/2023 11:25 PM Question Answer Comments Full Code Order Discussed With: Patient Latest Code Status on File Code Status Date Activated Date Inactivated Comments Full Code 10/09/2023 11:25 PM 10/23/2023 7:56 PM Question Answer Comments Full Code Order Discussed With: Patient Additional Source Comments (unrecognized sect ion and content) No Status Records FoundNo Status Records FoundNo Status Records FoundNo Status Records FoundNo Status Records FoundNo Status Records FoundNo Status Records FoundNo Status Records Found INFORMATION SOURCE (unrecogn ized section and content) DATE CREATED AUTHOR 11/29/2021 [facility] DATE CREATED AUTHOR AUTHOR'S ORGANIZ ATION 12/27/2021 [facility] DATE CREATED AUTHOR AUTHOR'S ORGANIZ ATION 08/20/2022 [facility] DATE CREATED AUTHOR AUTHOR'S ORGANIZ ATION 11/05/2022 [facility] DATE CREATED AUTHOR AUTHOR'S ORGANIZ ATION 07/27/2023 [facility] DATE CREATED AUTHOR AUTHOR'S ORGANIZ ATION 10/13/2023 [facility] DATE CREATED AUTHOR AUTHOR'S ORGANIZ ATION 10/13/2023 [facility] DATE CREATED AUTHOR AUTHOR'S ORGANIZ ATION 11/16/2023 [facility] REASON FOR VISIT (unrecogniz ed section and content) Reason Comments [employer] Reason Comments [employer] Reason Comments [employer] Patient Care team informatio n (unrecognized section and content) Personnel Name: ELAINE PONCE MD Address: Address: [address] [place], [place] [address] Source Comments (unrecognize d section and content) In the event this informatio n is protected by the Federal Confidentiality of Alcohol and Drug Abuse Patient Records regulations: The Federal rules restrict any use of the information to criminally investigate or prosecute any alcohol or drug abuse patient.[facility] the event this information is protected by the Federal Confidentiality of Alcohol and Drug Abuse Patient Records regulations: The Federal rules restrict any use of the information to criminally investigate or prosecute any alcohol or drug abuse patient.[facility] the event this information is protected by the Federal Confidentiality of Alcohol and Drug Abuse Patient Records regulations: The Federal rules restrict any use of the information to criminally investigate or prosecute any alcohol or drug abuse patient.[facility] FOR RECORDS PERTAINING TO PATIENTS WHO ARE OR HAVE BEEN ENROLLED IN A CHEMICAL DEPENDENCY/SUBSTANCEABUSE PROGRAM, SOME INFORMATION MAY BE OMITTED. This clinical summary was aggregated from multiple sources. Caution should be exercised in using it in the provision of clinical care. This summary normalizes information from multiple sources, and as a consequence, information in this document may materially change the coding, format and clinical context of patient data. In addition, data may be omitted in some cases. CLINICAL DECISIONS SHOULD BE BASED ON THE PRIMARY CLINICAL RECORDS. [facility]. provides no warranty or guarantee of the accuracy or completeness of information in this document.
[2023-11-21] MEDS: 0.9 % SODIUM CHLORIDE 1,000 ML 1000 ML IV ×2 (08:13→10:22)
[2023-11-21 08:23] LABS: Occult Blood Negative
[2023-11-21 08:27] LABS: Basophils Absolute Auto 0.1 10^3/uL (0.0-0.1); Basophils Percent Auto 0.5 % (0.2-2.0); Eosinophils Absolute Auto 0.1 10^3/uL (0.0-0.7); Eosinophils Percent Auto 0.4 % (0.9-7.0); Hematocrit 35.5 % (42.0-54.0); Hemoglobin 10.3 g/dL (14.0-18.0); Immature Granulocytes Pct Auto 0.5 % (0.0-0.5); Lymphocytes Absolute Auto 1.4 10^3/uL (1.2-3.8); Lymphocytes Percent Auto 6.3 % (20.5-60.0); Mean Corpuscular Hemoglobin 24.8 pg (25.9-34.0); Mean Corpuscular Volume 85.5 fL (80.0-94.0); Mean Platelet Volume 11.1 fL (9.5-13.5); Monocytes Absolute Auto 0.7 10^3/uL (0.3-0.8); Monocytes Percent Auto 3.4 % (1.7-12.0); Neutrophils Absolute Auto 19.3 10^3/uL (1.4-6.5); Neutrophils Percent Auto 88.9 % (43.0-75.0); Platelet Count 496 10^3/uL (150-450); Red Blood Count 4.15 10^6/uL (4.70-6.10); Red Cell Distribution Width 17.1 % (11.0-15.0); White Blood Count 21.7 10^3/uL (4.0-11.0)
[2023-11-21 08:34] LABS: Anion Gap 12.5; BUN Creatinine Ratio 29.9; Calcium 9.6 mg/dL (8.5-10.1); Carbon Dioxide 33.6 mmol/L (21.0-32.0); Chloride 101 mmol/L (98-107); Estimated GFR (African America >60 (>=60); Estimated GFR (Non-African Ame >60 (>=60); Glucose 135 mg/dL (74-106); Potassium 4.1 mmol/L (3.5-5.1); Sodium 143 mmol/L (136-145)
[2023-11-21 08:37] LABS: Alanine Aminotransferase 45 U/L (16-63); Albumin Globulin Ratio 0.5; Albumin Level 2.4 g/dL (3.4-5.0); Alkaline Phosphatase 130 U/L (46-116); Amylase 50 U/L (25-115); Aspartate Amino Transferase 25 U/L (15-37); Bilirubin Direct 0.1 mg/dL (0.0-0.2); Bilirubin Total 0.3 mg/dL (0.2-1.0); Globulin 4.9 g/dL; Total Protein 7.3 g/dL (6.4-8.2)
[2023-11-21 08:40] LABS: Lactate/Lactic Acid 1.8 mmol/L (0.4-2.0)
[2023-11-21] MEDS: PIPERACILLIN SODIUM/TAZOBACTAM 3.375 GM in 0.9 % SODIUM CHLORIDE 50 ML IV (08:45)
[2023-11-21] MEDS: PANTOPRAZOLE SODIUM 40 MG VIAL IV (08:46)
[2023-11-21] MEDS: ONDANSETRON PF 4 MG/2 ML VIAL IV (08:46)
[2023-11-21] MEDS: ACETAMINOPHEN 650 MG RECTAL SUPPOSITORY PR (08:47)
[2023-11-21 09:12] LABS: PROCALCITONIN 0.45 ng/mL (0.00-0.50)
[2023-11-21] MEDS: VANCOMYCIN HCL 1,250 MG in 0.9 % SODIUM CHLORIDE 250 ML 166.667000000000002 MG IV (09:46)
[2023-11-21 10:50] LABS: Bilirubin Urine NEGATIVE (NEGATIVE); Blood Urine MODERATE (NEGATIVE); Clarity Urine CLEAR (CLEAR); Color Urine LT. YELLOW (YELLOW); Glucose Urine UA NEGATIVE (NEGATIVE); Ketones Urine NEGATIVE (NEGATIVE); Leukocyte Esterase Urine LARGE (NEGATIVE); Nitrite Urine NEGATIVE (NEGATIVE); Protein Urine NEGATIVE (NEG/TRACE); Urobilinogen Urine 0.2 EU/dL (0.2-1.0); pH Urine 7.5 (5.0-9.0)
[2023-11-21 10:54] LABS: Urine Microscopic Indicated YES
[2023-11-21 11:07] LABS: Bacteria Urine MODERATE #/HPF (NONE SEEN); Calcium Oxalate Crystals Urine MODERATE; Crystals Seen? Seen #/HPF (None Seen); Mucus Urine NONE SEEN (NONE SEEN)
[2023-11-21 11:11] LABS: Amorphous Sediment Urine FEW; Calcium Phosphate Crystals Ur FEW; Cast Seen? NONE SEEN #/LPF (NONE SEEN); Squamous Epithelial Cell Urine RARE #/LPF (NONE/RARE)
[2023-11-21 11:12] LABS: Urine Culture Indicated YES
[2023-11-21 12:21] LABS: Influenza Virus A Antigen Negative; Influenza Virus B Antigen Negative; Internal Control Within Normal Limits; SARS-CoV-2 Ag NEGATIVE (NEGATIVE)
--- NOTE | 2023-11-21 12:23 | PC.NURSE ---
Report given to Ariadne bed coordinator at [facility]. Bed assignment received, ICU bed #2, accepting physician Dr. Schrader. Mother at bedside and updated on room assignment. [facility] transport ETA 60-90 minutes, patient and Mother aware of transport time.
[2023-11-21] MEDS: MORPHINE SULFATE 4 MG/ML VIAL IV (13:05)
--- NOTE | 2023-11-21 13:30 | PC.NURSE ---
[facility] transport arrives at this time. Bedside report given to transport team.
--- NOTE | 2023-11-21 13:56 | PC.NURSE ---
Report called to JEWELL Camilo at [facility].
== END 2023-11-21 13:57 | disposition short-term general hospital (02) ==
PROVIDERS: Emergency Provider Emergency Medicine; PCP Family Medicine
DX: J18.9 Pneumonia, unspecified organism (principal); Z93.0 Tracheostomy status; Z79.899 Other long term (current) drug therapy; Z79.01 Long term (current) use of anticoagulants; Z20.822 Contact with and (suspected) exposure to COVID-19
CPT/HCPCS: 36415; 70450; 71045; 74177; 80048; 80076; 81001; 82150; 83605; 83690; 84145; 85025; 87040; 87086; 87150; 87186; 87804; 87811; 93005; 96361; 96365; 96375; 99291; 99292; G0328; J3370; Q9967

== ENCOUNTER 2024-01-20 15:38 | Inpatient (IN) | payer OTHER, SELFPAY ==
[2024-01-20] VITALS (40 sets, daily range): BP systolic 93–121; BP diastolic 49–71; PULSE 89–116; TEMP 37.3–37.5; O2SAT 93–99; BMI 34.5; BMI 27.1
--- NOTE | 2024-01-20 15:49 | ED_ITS ---
HPI HPI - General Adult General Chief complaint: GI Bleed Stated complaint: POSS GI BLEED Time Seen by Provider: 01/20/24 15:49 Source: caregiver and EMR Mode of arrival: ambulance Limitations: language barrier, altered mental status and physical limitation History of Present Illness HPI narrative: Patient is a 38-year-old male who is presenting to ER by EMS staff from longterm home secondary to bleeding concerns from rectum, nasal, tracheostomy, PEG tube. Patient is on Eliquis. Patient is a full code. Patient has history of traumatic brain injury, seizures, cerebral infarction, trach, neuromuscular dysfunction of the bladder, GERD, malnutrition, acute respiratory failure with hypoxia, incomplete right bundle branch block, hernias. Patient was initially sent to the ER secondary to concern for blood noted rectum, G-tube, possibly left in the ER and in the trach by nursing staff. I do not see any evidence of any type of bleeding that was in patient's nostrils, respiratory staff did suction and trach care when he initially arrived, no blood noted in the trachea, scant amount of sputum, this was collected and sent to the lab as a sputum culture. It is noted that patient will answer yes with looking down with his eyes. He will answer no with looking up with his eyes. This is help patient is able to answer questions, he is nonverbal. 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 Some the vomiting came out of patient's left nostril. Mother was not aware of any type of bleeding from trach or nostril, and neither we. There may been a false nursing report or incorrect communication with the concern of blood coming from nostril or trach. Mother is not aware of this nor do we see any evidence on initial physical exam. Other says that patient has had 2 gastrointestinal bleeds in the past, he has eliquis. Mother did not see any significant evidence of bleeding at the nursing facility today. Mother states that patient is able to answers questions With looking up or down, which looking up is NO, looking down is YES. Patient is also able to squeeze his eyes for yes. Patient can give pain scales as well on how many times he will squint his eyes out of 10. All systems are negative except as noted/marked. All systems reviewed and otherwise negative. Nurses note and vital signs reviewed and patient is not hypoxic. General: The patient appears stable. Patient is resting comfortably on cart. Patient is not toxic, lethargic, or listless. Patient does not appear to be in pain. Skin: Warm, dry, no pallor noted. There is no rash noted. No petechiae, purpura. Patient does have a stage III ulceration to his sacrum that is packed, no drainage, mild stage I ulceration to sacrum around the opening of the stage III ulceration to his sacrum . No ulcers or signs of skin infections. No other signs of open sores. Head: Normocephalic, atraumatic, chronic changes to patient's eyes, head slightly swollen, normal for his baseline. Eye: Normal conjunctiva, no drainage, EOMI. PERRL, 3/2, sluggish bilateral, patient is able to look up and down and answer questions appropriately. Patient will look down for the answer yes patient will look up for the answer of no Ears, Nose, Mouth, and Throat: oral mucosa is moist. Mucous membranes are moist, no obvious signs of intraoral pathology. Patient does have clear secretions coming from his mouth, no obstruction, no airway compromise. Nares patent. Mouth without vesicles. Cardiovascular: Regular Rate and Rhythm, no murmur, gallop, rub Respiratory: Patient is in no distress, no accessory muscle use, lungs are clear to auscultation, no wheezing, rales or rhonchi. Trach is intact, Back: non-tender, no CVA tenderness bilaterally to percussion. No CT LS midline pain GI: no tenderness to palpation, no masses appreciated. No rebound, guarding, or rigidity noted. No distention. Obese, PEG tube is in place, is clear, dry, intact. Musculoskeletal: Patient no purposeful movement to all extremities Neurological: A&O x0, patient is trach dependent, nonverbal Psychiatric: Cooperative Related Data Home Medications ?Medication ?Instructions ?Recorded ?Confirmed acetaminophen 325 mg tablet (Pain 650 mg PO Q4H PRN fever or pain 11/21/23 01/20/24 Relief (acetaminophen)) albuterol sulfate 2.5 mg/3 mL 2.5 mg inhalation Q4H PRN 11/21/23 01/20/24 (0.083 %) solution for nebulization shortness of breath or wheezing alprazolam 1 mg tablet 1 mg PO TID PRN anxiety 11/21/23 01/20/24 apixaban 5 mg tablet (Eliquis) 5 mg PO Q12H 11/21/23 01/20/24 baclofen 5 mg tablet 5 mg feeding tube Q8H 11/21/23 01/20/24 cetirizine 10 mg capsule (All Day 10 mg PO DAILY 11/21/23 01/20/24 Allergy (cetirizine)) escitalopram oxalate 10 mg tablet 10 mg feeding tube DAILY 11/21/23 01/20/24 gabapentin 250 mg/5 mL oral 300 mg feeding tube TID 11/21/23 01/20/24 solution metoprolol tartrate 25 mg tablet 25 mg feeding tube Q12H 11/21/23 01/20/24 oxycodone 10 mg tablet 10 mg feeding tube Q6H 11/21/23 01/20/24 polyethylene glycol 3350 17 17 g PO DAILY 11/21/23 01/20/24 gram/dose oral powder (ClearLax) sennosides 8.6 mg tablet (Keena-jigar) 8.6 mg PO DAILY 11/21/23 01/20/24 buspirone 5 mg tablet 5 mg PO BID 01/20/24 01/20/24 esomeprazole magnesium 40 mg 40 mg G-tube Q24H 01/20/24 01/20/24 granules delayed release for susp melatonin 3 mg capsule 3 mg PO DAILY 01/20/24 01/20/24 sucralfate 1 gram tablet 1 g feeding tube Q6H 01/20/24 01/20/24 Allergies Allergy/AdvReac Type Severity Reaction Status Date / Time fentanyl Allergy Severe Anaphylaxis Verified 11/21/23 09:59 Calcium Channel Blocking Allergy Unknown Unknown Verified 11/21/23 07:36 Agents-Dih fluoxetine [From Prozac] Allergy Unknown Verified 11/21/23 07:36 Opioid HPI Opioid Management Most Recent Opioid Data: Last Pain Scale 7 01/20/24 19:01 Last MAR Pain Assessment 01/20/24 19:01 Ur Phencyclidine Scrn Negative (NEGATIVE) 06/08/23 22:16 Exam Constitutional Vital Signs, click to edit/add: Last Vital Signs Pulse 99 H 01/20/24 19:15 Resp 21 H 01/20/24 19:15 BP 103/65 01/20/24 19:15 Pulse Ox 95 01/20/24 19:15 O2 Del Method Trach Collar, Mechanical Ventilator 01/20/24 15:41 FiO2 45 01/20/24 17:39 Course Vital Signs Vital signs: Vital Signs Pulse Rate 116 H 01/20/24 15:41 Respiratory Rate 14 01/20/24 15:41 Blood Pressure 111/71 01/20/24 15:41 Pulse Oximetry 98 01/20/24 15:41 Oxygen Delivery Method Trach Collar, Mechanical Ventilator 01/20/24 15:41 Pulse Rate 99 H 01/20/24 19:15 Respiratory Rate 21 H 01/20/24 19:15 Blood Pressure 103/65 01/20/24 19:15 Pulse Oximetry 95 01/20/24 19:15 Oxygen Delivery Method Trach Collar, Mechanical Ventilator 01/20/24 15:41 Fraction of Inspired Oxygen 45 01/20/24 17:39 Medical Decision Making [facility] Narrative Medical decision making narrative: 1700 patient's Iverson catheter has a significant amount of sediment noted in the tubing. Patient was started on Zosyn prophylactically. Patient does have a white blood cell count of 19.5, pH is 7.45. Troponin negative. D-dimer negative. CT of the abdomen pelvis was done secondary right lower quadrant pain was producing grimace and pain to the patient with palpation, no rigidity, no tympany. Patient would look in the direction of down which me yes for his nonverbal communication where he moves his eyes down for yes and he will look up for the answer of no Patient has been given IV fluids, patient is given Zosyn prophylactically initially. Patient's urine did come back with significant urinary tract infection noted. Dr. Roe was contacted, he can be available for consult for admission. Patient has questionable infiltrate findings on chest x-ray. Patient has had no fever, no hypoxia. Patient has possible concern for aspiration from one episode of vomiting earlier this afternoon. Patient does have urinary tract infection, sediment noted in the Iverson catheter. Iverson catheter will be changed out, urine culture will be resent from a new urine sample from the new Iverson catheter. Patient was given IV Zosyn. I did speak to Dr. Solomon recently about this admission. I also spoke into the lipstick molder, Dr. Roe, he is going to be in consultation. Patient has been admitted once to the [facility], and once to [facility]. Patient's PCP is Dr. Root. There has been no evidence of any type of obvious bleeding. There is no bleeding coming from nostrils, trachea, no continuous or obvious bleeding coming from PEG tube, no bleeding from rectum, brown stool, Hemoccult was sent. Patient will be admitted to the ICU, patient received 2 L of IV fluid, so sent. Patient will be admitted to the intensive care unit, parents agree to this. Patient has not been hypoxic, IV fluids have helped improve patient's heart rate. Abdominal CT shows no acute findings. Dr Hall had a 15 minute conversation with parents and patient at disposition time. Patient would like to stay in the intensive care unit at [facility], patient understands decision he is making, parents agree with this decision. Father is the guardian/power of [place] attorney. Patient be admitted for further evaluation and treatment. Critical care time 35 minutes exclusive from separate billable procedures that were performed. The following was considered in the determination of critical care but not limited to the level of medical decision making, intensive cardiac and/or respiratory monitoring, frequent vital sign monitoring, evaluation of laboratory studies, evaluation of radiographic studies, oxygen monitoring, and constant monitoring and speaking to family at bedside Lab Data Lab results reviewed: Yes I reviewed the patient's lab results Labs: Lab Results 01/20/24 01/20/24 Range/Units 16:00 16:20 WBC 19.5 H (4.0-11.0) 10^3/uL RBC 4.51 L (4.70-6.10) 10^6/uL Hgb 11.0 L (14.0-18.0) g/dL Hct 38.4 L (42.0-54.0) % MCV 85.1 (80.0-94.0) fL MCH 24.4 L (25.9-34.0) pg MCHC 28.6 L (29.9-35.2) g/dL RDW 19.1 H (11.0-15.0) % Plt Count 358 (150-450) 10^3/uL MPV 11.8 (9.5-13.5) fL Neut % (Auto) 88.1 H (43.0-75.0) % Lymph % (Auto) 7.5 L (20.5-60.0) % [place] % (Auto) 3.4 (1.7-12.0) % Eos % (Auto) 0.2 L (0.9-7.0) % Baso % (Auto) 0.5 (0.2-2.0) % Neut # (Auto) 17.3 H (1.4-6.5) 10^3/uL Lymph # (Auto) 1.5 (1.2-3.8) 10^3/uL [place] # (Auto) 0.7 (0.3-0.8) 10^3/uL Eos # (Auto) 0.0 (0.0-0.7) 10^3/uL Baso # (Auto) 0.1 (0.0-0.1) 10^3/uL Abs Immat Gran (auto) 0.05 H (0.00-0.03) 10^3/uL Imm/Tot Granulo (auto) 0.3 (0.0-0.5) % PT 11.4 (9.0-11.6) sec INR 1.08 APTT 29.1 (22.3-36.2) sec Fibrinogen 643 H (200-400) mg/dL D-Dimer 0.32 (<=0.59) mg/L FEU VBG pH 7.451 H (7.330-7.430) VBG pCO2 47.1 (40.0-52.0) mmHg Sodium 141 (136-145) mmol/L Potassium 4.0 (3.5-5.1) mmol/L Chloride 103 (98-107) mmol/L Carbon Dioxide 31.3 (21.0-32.0) mmol/L Anion Gap 10.7 BUN 20.0 H (7.0-18.0) mg/dL Creatinine 0.73 (0.70-1.30) mg/dL Est GFR ( Amer) >60 (>=60) Est GFR (Non-Af Amer) >60 (>=60) BUN/Creatinine Ratio 27.4 Glucose 117 H (74-106) mg/dL Lactate 1.9 (0.4-2.0) mmol/L Calcium 9.5 (8.5-10.1) mg/dL Magnesium 2.1 (1.8-2.4) mg/dL Total Bilirubin 0.4 (0.2-1.0) mg/dL AST 18 (15-37) U/L ALT 33 (16-63) U/L Alkaline Phosphatase 118 H (46-116) U/L Troponin I High Sens 7.2 (4.0-76.1) pg/mL NT-Pro-B Natriuret Pep 104.0 (<=450.0) pg/mL Total Protein 7.0 (6.4-8.2) g/dL Albumin 2.6 L (3.4-5.0) g/dL Globulin 4.4 g/dL Albumin/Globulin Ratio 0.6 Procalcitonin 1.14 H (0.00-0.50) ng/mL Urine Color Yellow (YELLOW) Urine Clarity Sl cloudy (CLEAR) Urine pH 7.5 (5.0-9.0) Ur Specific [place] 1.015 (1.005-1.025) Urine Protein Negative (NEG/TRACE) mg/dL Urine Glucose (UA) Negative (NEGATIVE) mg/dL Urine Ketones Negative (NEGATIVE) mg/dL Urine Occult Blood Trace-i (NEGATIVE) Urine Nitrite Positive A (NEGATIVE) Urine Bilirubin Negative (NEGATIVE) Urine Urobilinogen 0.2 (0.2-1.0) EU/dL Ur Leukocyte Esterase Large A (NEGATIVE) Urine RBC 2-5 A (0-2) #/HPF Urine WBC 50-75 A (NONE SEEN) #/HPF Ur Squamous Epith Cells Few A (NONE/RARE) #/LPF Urine Crystals None seen (None Seen) #/HPF Urine Bacteria Moderate A (NONE SEEN) #/HPF Urine Casts None seen (NONE SEEN) #/LPF Urine Mucus None seen (NONE SEEN) Blood Type A Positive Antibody Screen Negative ECG Data Attestation: I personally reviewed and interpreted this ECG as follows: (EKG interpretation. Sinus tachycardia at 107. Normal axis deviation. Q waves noted throughout, QTc of 394. Incomplete right bundle branch block noted.) Discharge Plan Discharge Chief Complaint: GI Bleed Clinical Impression: UTI (urinary tract infection) due to urinary indwelling Iverson catheter, Leukocytosis, Abdominal pain, Vomiting Patient Disposition: Admitted As Inpatient Time of Disposition Decision: 18:55 Condition: Good
--- NOTE | 2024-01-20 15:54 | XR_ITS ---
The [address] [address] Patient Name: LOLIS QUINONES MRN: [id number] date: 1985 Sex: M Assigned Patient Location: ED.MAIN Current Patient Location: ED.MAIN Accession/Order Number: [id number] Exam Date: 01/20/2024 16:00 Report Date: 01/20/2024 16:34 At the request of: ARTEM ALLEN Procedure: XR chest 1V EXAMINATION: XR chest 1V HISTORY: sob COMPARISON: 11/21/2023 TECHNIQUE: FINDINGS: LUNGS: Right hilar fullness possibly related to rotation. Moderate infiltrate left mid to lower lung zone obscuring the left hemidiaphragm. Tracheostomy cannula is stable VASCULATURE: No increased pulmonary vasculature. PLEURA: No pneumothorax. Left pleural effusion CARDIAC: No cardiomegaly or cardiac silhouette abnormality. MEDIASTINUM: No visible mass or adenopathy. BONES: No fracture or visible bone lesion. OTHER: Negative. XR/XR chest 1V IMPRESSION: Moderate left parenchymal infiltrates and small pleural effusion Right perihilar infiltrate versus rotation Electronically authenticated by: CLAIR CORTES Date: 01/20/2024 16:34
--- NOTE | 2024-01-20 15:54 | ECG_ITS ---
The 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
[2024-01-20 16:10] LABS: PCO2 VBG 47.1 mmHg (40.0-52.0); pH VBG 7.451 (7.330-7.430)
[2024-01-20 16:11] LABS: Basophils Absolute Auto 0.1 10^3/uL (0.0-0.1); Basophils Percent Auto 0.5 % (0.2-2.0); Eosinophils Percent Auto 0.2 % (0.9-7.0); Hematocrit 38.4 % (42.0-54.0); Immature Granulocytes Abs Auto 0.05 10^3/uL (0.00-0.03); Immature Granulocytes Pct Auto 0.3 % (0.0-0.5); Lymphocytes Absolute Auto 1.5 10^3/uL (1.2-3.8); Lymphocytes Percent Auto 7.5 % (20.5-60.0); Mean Corpuscular HGB Conc 28.6 g/dL (29.9-35.2); Mean Corpuscular Hemoglobin 24.4 pg (25.9-34.0); Mean Corpuscular Volume 85.1 fL (80.0-94.0); Mean Platelet Volume 11.8 fL (9.5-13.5); Monocytes Absolute Auto 0.7 10^3/uL (0.3-0.8); Monocytes Percent Auto 3.4 % (1.7-12.0); Neutrophils Absolute Auto 17.3 10^3/uL (1.4-6.5); Neutrophils Percent Auto 88.1 % (43.0-75.0); Platelet Count 358 10^3/uL (150-450); Red Blood Count 4.51 10^6/uL (4.70-6.10); Red Cell Distribution Width 19.1 % (11.0-15.0); White Blood Count 19.5 10^3/uL (4.0-11.0)
[2024-01-20 16:33] LABS: Alanine Aminotransferase 33 U/L (16-63); Albumin Globulin Ratio 0.6; Albumin Level 2.6 g/dL (3.4-5.0); Alkaline Phosphatase 118 U/L (46-116); Anion Gap 10.7; Aspartate Amino Transferase 18 U/L (15-37); BUN Creatinine Ratio 27.4; Bilirubin Total 0.4 mg/dL (0.2-1.0); Calcium 9.5 mg/dL (8.5-10.1); Carbon Dioxide 31.3 mmol/L (21.0-32.0); Chloride 103 mmol/L (98-107); Estimated GFR (African America >60 (>=60); Estimated GFR (Non-African Ame >60 (>=60); Globulin 4.4 g/dL; Glucose 117 mg/dL (74-106); Sodium 141 mmol/L (136-145)
[2024-01-20 16:34] LABS: Lactate/Lactic Acid 1.9 mmol/L (0.4-2.0)
[2024-01-20] MEDS: LACTATED RINGER'S SOLUTION 1,000 ML 999 ML IV (16:35)
[2024-01-20 16:40] LABS: Magnesium 2.1 mg/dL (1.8-2.4); Troponin I High Sensitivity 7.2 pg/mL (4.0-76.1)
[2024-01-20 16:45] LABS: Bilirubin Urine NEGATIVE (NEGATIVE); Blood Urine TRACE-I (NEGATIVE); Clarity Urine SL CLOUDY (CLEAR); Color Urine YELLOW (YELLOW); Glucose Urine UA NEGATIVE (NEGATIVE); Ketones Urine NEGATIVE (NEGATIVE); Leukocyte Esterase Urine LARGE (NEGATIVE); Nitrite Urine POSITIVE (NEGATIVE); Protein Urine NEGATIVE (NEG/TRACE); Specific Gravity Urine 1.015 (1.005-1.025); Urobilinogen Urine 0.2 EU/dL (0.2-1.0); pH Urine 7.5 (5.0-9.0)
[2024-01-20 16:51] LABS: D Dimer 0.32 mg/L FEU (<=0.59); INR 1.08; Partial Thromboplastin Time 29.1 sec (22.3-36.2); Prothrombin Time 11.4 sec (9.0-11.6)
--- NOTE | 2024-01-20 17:02 | CT_ITS ---
[address] [address] Patient Name: LOLIS QUINONES MRN: [id number] date: 1985 Sex: M Assigned Patient Location: ER Current Patient Location: Accession/Order Number: [id number] Exam Date: 01/20/2024 17:22 Report Date: 01/20/2024 18:19 At the request of: ARTEM ALLEN Procedure: CT abdomen pelvis w con EXAM: CT abdomen pelvis w con; [id number] REASON FOR EXAM: rlq pain TECHNIQUE: Helical CT images of the abdomen and pelvis were obtained after the administration of IV contrast. Multiplanar reformats were generated at the scanner. Dose reduction technique used: Automated exposure control and/or adjustment of the mA and/or kV according to patient size and/or use of iterative reconstruction technique. COMPARISON: CT abdomen/pelvis 11/21/2023 and PET/CT 06/10/2021. FINDINGS: Visualized Chest: -Moderate bibasilar consolidation with volume loss, mildly improved in the right base compared with 11/21/2023. -Small left pleural effusion, similar. -Mild/moderate cardiomegaly. Abdomen: Liver: Borderline hepatomegaly with the liver measuring 18.2 cm (normal up to 18 cm). Gallbladder: No calcified gallstones. No acute inflammatory changes. Bile Ducts: No significant biliary ductal dilatation. Pancreas: No mass, ductal dilatation, or inflammatory changes. Spleen: No splenomegaly or focal lesion. Adrenals: No nodules. Kidneys: -Single nonobstructing 3 mm stone in the right kidney. No left-sided stones and no hydronephrosis. -No mass. Vascular: No aortic aneurysm. Lymph Nodes: No adenopathy. Abdominal Wall: Medium-sized fat-containing left renal hernia. Large fat-containing periumbilical hernia. Left upper quadrant percutaneous gastrostomy tube is appropriately positioned. Pelvis: The bladder is partially decompressed with a Iverson catheter. Layering hyperattenuation in the dependent bladder likely representing small bladder stones. Bowel/Peritoneal Cavity/Mesentery: -There is pre-existing hyperdense material within the colon. -No bowel obstruction or significant ileus. -No acute inflammatory changes. -No free air or free fluid. Musculoskeletal: No acute fracture or suspicious osseous lesion. Moderate leftward listhesis and retrolisthesis of L2 on L3 with severe spondylosis at that level.. CT/CT abdomen pelvis w con IMPRESSION: 1. Note that there is oral contrast versus other hyperattenuating material in the colon which would obscure an active colonic bleed. 2. No acute intra-abdominal abnormality demonstrated. 3. Borderline hepatomegaly. 4. The bladder is only partially decompressed by the Iverson catheter. Several layering bladder stones are present. Electronically authenticated by: COLETTE PATEL Date: 01/20/2024 18:19
[2024-01-20 17:07] LABS: PROCALCITONIN 1.14 ng/mL (0.00-0.50)
[2024-01-20 17:08] LABS: WBC Urine 50-75 #/HPF (NONE SEEN)
[2024-01-20 17:09] LABS: Bacteria Urine MODERATE #/HPF (NONE SEEN); Cast Seen? NONE SEEN #/LPF (NONE SEEN); Crystals Seen? None Seen #/HPF (None Seen); Mucus Urine NONE SEEN (NONE SEEN); Squamous Epithelial Cell Urine FEW #/LPF (NONE/RARE)
[2024-01-20 17:42] LABS: Fibrinogen 643 mg/dL (200-400)
--- NOTE | 2024-01-20 17:45 | RESP.RT ---
Pt PPV'd for transport to CT and back without incident.
[2024-01-20] MEDS: LACTATED RINGER'S SOLUTION 1,000 ML 1000 ML IV (17:53)
[2024-01-20] MEDS: PIPERACILLIN SODIUM/TAZOBACTAM 3.375 GM in 0.9 % SODIUM CHLORIDE 50 ML IV (17:54)
[2024-01-20] MEDS: ONDANSETRON PF 4 MG/2 ML VIAL IV (19:01)
[2024-01-20] MEDS: MORPHINE SULFATE 4 MG/ML VIAL IV (19:01)
[2024-01-20] MEDS: LACTATED RINGER'S SOLUTION 1,000 ML 125 ML IV (20:15)
[2024-01-20] MEDS: SENNOSIDES/DOCUSATE SODIUM 1 TAB TABLET PEG (21:49)
[2024-01-20] MEDS: APIXABAN 5 MG TABLET G-TUBE (21:49)
[2024-01-20] MEDS: METOPROLOL TARTRATE 25 MG TABLET G-TUBE (21:49)
[2024-01-20] MEDS: SUCRALFATE 1 GM TABLET G-TUBE (21:49)
[2024-01-20] MEDS: BACLOFEN 10 MG TABLET 5 MG FEED TUBE (21:49)
[2024-01-20] MEDS: GABAPENTIN 300 MG CAPSULE PO (21:49)
[2024-01-20] MEDS: POLYETHYLENE GLYCOL 3350 17 GM POWDER PACKET G-TUBE (21:49)
[2024-01-20] MEDS: OXYCODONE HCL 5 MG TABLET 10 MG PO (21:50)
[2024-01-21] VITALS (132 sets, daily range): BP systolic 82–102; BP diastolic 40–58; PULSE 80–119; TEMP 37.2; O2SAT 84–99; BMI 27.1
[2024-01-21] MEDS: PIPERACILLIN SODIUM/TAZOBACTAM 3.375 GM in 0.9 % SODIUM CHLORIDE 50 ML IV ×3 (01:04→16:00)
[2024-01-21] MEDS: LACTATED RINGER'S SOLUTION 1,000 ML 125 ML IV ×3 (03:55→19:57)
[2024-01-21 04:21] LABS: Basophils Absolute Auto 0.1 10^3/uL (0.0-0.1); Basophils Percent Auto 0.7 % (0.2-2.0); Eosinophils Absolute Auto 0.3 10^3/uL (0.0-0.7); Eosinophils Percent Auto 2.1 % (0.9-7.0); Hematocrit 34.2 % (42.0-54.0); Hemoglobin 9.7 g/dL (14.0-18.0); Immature Granulocytes Abs Auto 0.04 10^3/uL (0.00-0.03); Immature Granulocytes Pct Auto 0.3 % (0.0-0.5); Lymphocytes Absolute Auto 1.9 10^3/uL (1.2-3.8); Lymphocytes Percent Auto 12.9 % (20.5-60.0); Mean Corpuscular HGB Conc 28.4 g/dL (29.9-35.2); Mean Corpuscular Hemoglobin 24.6 pg (25.9-34.0); Mean Corpuscular Volume 86.6 fL (80.0-94.0); Mean Platelet Volume 11.7 fL (9.5-13.5); Monocytes Absolute Auto 0.6 10^3/uL (0.3-0.8); Monocytes Percent Auto 4.2 % (1.7-12.0); Neutrophils Absolute Auto 11.6 10^3/uL (1.4-6.5); Neutrophils Percent Auto 79.8 % (43.0-75.0); Platelet Count 281 10^3/uL (150-450); Red Blood Count 3.95 10^6/uL (4.70-6.10); Red Cell Distribution Width 19.2 % (11.0-15.0); White Blood Count 14.6 10^3/uL (4.0-11.0)
[2024-01-21 04:22] LABS: PCO2 VBG 50.9 mmHg (40.0-52.0); pH VBG 7.422 (7.330-7.430)
[2024-01-21 04:40] LABS: Alanine Aminotransferase 24 U/L (16-63); Albumin Globulin Ratio 0.6; Albumin Level 2.4 g/dL (3.4-5.0); Alkaline Phosphatase 100 U/L (46-116); Anion Gap 3.5; Aspartate Amino Transferase 11 U/L (15-37); BUN Creatinine Ratio 23.4; Bilirubin Total 0.7 mg/dL (0.2-1.0); Calcium 9.5 mg/dL (8.5-10.1); Carbon Dioxide 34.2 mmol/L (21.0-32.0); Chloride 107 mmol/L (98-107); Estimated GFR (African America >60 (>=60); Estimated GFR (Non-African Ame >60 (>=60); Globulin 3.8 g/dL; Glucose 79 mg/dL (74-106); Potassium 3.7 mmol/L (3.5-5.1); Sodium 141 mmol/L (136-145); Total Protein 6.2 g/dL (6.4-8.2)
[2024-01-21] MEDS: OXYCODONE HCL 5 MG TABLET 10 MG PO ×3 (05:23→17:57)
[2024-01-21] MEDS: BACLOFEN 10 MG TABLET 5 MG FEED TUBE ×3 (05:24→21:23)
[2024-01-21] MEDS: ACETAMINOPHEN 325 MG TABLET 650 MG G-TUBE ×2 (05:24→15:58)
[2024-01-21] MEDS: GABAPENTIN 300 MG CAPSULE PO ×3 (05:24→21:23)
--- NOTE | 2024-01-21 07:20 | PM.PLCN ---
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 No active bleeding was noted in ER, but UA was suggestive of UTI with sepsis. WBC 19.5, procalcitonin 1.14, lactate 1.9. He was admitted to the ICU d/t the ventilator and I was consulted for vent management. Mother is present and is able to give history. His baseline FiO2 is ~40%, though currently FiO2 is 45% with SpO2 88%. I spoke with RN and RT - they have been suctioning some thick green secretions. The patient has a cough reflex during suctioning, but does not have a good arrieta maneuver. Mother notes that he has increased thick greenish secretions recently. He was seen in [facility] ER 11/21/2023 with pneumonia and Klebsiella/Acinetobacter UTI (transferred to [facility]). Abdominal/pevlic CT 01/20/2024 notes moderate bibasilar consolidations which have mildly improved from 11/21/2023. 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) [facility] Social History Highest level of school completed/degree received: Associate degree: occupational, technical, vocational program Gender Identity: male Meds Home Medications and Allergies Home Medications ?Medication ?Instructions ?Recorded ?Confirmed ?Type acetaminophen 325 mg tablet (Pain 650 mg PO Q4H PRN fever or pain 11/21/23 01/20/24 History Relief (acetaminophen)) albuterol sulfate 2.5 mg/3 mL 2.5 mg inhalation Q4H PRN 11/21/23 01/20/24 History (0.083 %) solution for nebulization shortness of breath or wheezing alprazolam 1 mg tablet 1 mg PO TID PRN anxiety 11/21/23 01/20/24 History apixaban 5 mg tablet (Eliquis) 5 mg PO Q12H 11/21/23 01/20/24 History baclofen 5 mg tablet 5 mg feeding tube Q8H 11/21/23 01/20/24 History cetirizine 10 mg capsule (All Day 10 mg PO DAILY 11/21/23 01/20/24 History Allergy (cetirizine)) escitalopram oxalate 10 mg tablet 10 mg feeding tube DAILY 11/21/23 01/20/24 History gabapentin 250 mg/5 mL oral 300 mg feeding tube TID 11/21/23 01/20/24 History solution metoprolol tartrate 25 mg tablet 25 mg feeding tube Q12H 11/21/23 01/20/24 History oxycodone 10 mg tablet 10 mg feeding tube Q6H 11/21/23 01/20/24 History polyethylene glycol 3350 17 17 g PO DAILY 11/21/23 01/20/24 History gram/dose oral powder (ClearLax) sennosides 8.6 mg tablet (Keena-jigar) 8.6 mg PO DAILY 11/21/23 01/20/24 History buspirone 5 mg tablet 5 mg PO BID 01/20/24 01/20/24 History esomeprazole magnesium 40 mg 40 mg G-tube Q24H 01/20/24 01/20/24 History granules delayed release for susp melatonin 3 mg capsule 3 mg PO DAILY 01/20/24 01/20/24 History sucralfate 1 gram tablet 1 g feeding tube Q6H 01/20/24 01/20/24 History Allergies Allergy/AdvReac Type Severity Reaction Status Date / Time fentanyl Allergy Severe Anaphylaxis Verified 11/21/23 09:59 Calcium Channel Blocking Allergy Unknown Unknown Verified 11/21/23 07:36 Agents-Dih fluoxetine [From Prozac] Allergy Unknown Verified 11/21/23 07:36 Exam Constitutional Vital Signs, click to edit/add: Last Vital Signs Temp 99.2 F 01/20/24 23:05 Pulse 88 01/21/24 05:52 Resp 15 01/21/24 05:15 BP 95/49 01/21/24 05:15 Pulse Ox 94 L 01/21/24 05:15 O2 Del Method Mechanical Ventilator 01/21/24 05:15 FiO2 45 01/21/24 05:15 Documenting provider has reviewed patient's vital signs: yes Common normals: no apparent distress HENMT Common normals: normocephalic Neck & C-Spine General: trachea midline and tracheostomy present; no tracheal deviation Chest Common normals: inspection of chest normal Respiratory Other: Diffuse bilateral inspiratory and expiratory moist rhonchi. No wheezes. Cardio Common normals: regular rate and regular rhythm GI Inspection: normal to inspection Extremity General: edema (1+ BLE) Neuro Other: Limited movement, confined mainly to eyes and a few other facial gestures Psych Attitude: calm Results Laboratory Findings ABG, PT/INR, D-dimer: PT/INR, D-dimer PT 11.4 sec (9.0-11.6) 01/20/24 16:00 INR 1.08 01/20/24 16:00 D-Dimer 0.32 mg/L FEU (<=0.59) 01/20/24 16:00 Abnormal lab findings: Abnormal Labs 01/20/24 01/20/24 01/21/24 16:00 16:20 04:15 WBC 19.5 H 14.6 H RBC 4.51 L 3.95 L Hgb 11.0 L 9.7 L Hct 38.4 L 34.2 L MCH 24.4 L 24.6 L MCHC 28.6 L 28.4 L RDW 19.1 H 19.2 H Neut % (Auto) 88.1 H 79.8 H Lymph % (Auto) 7.5 L 12.9 L Eos % (Auto) 0.2 L Neut # (Auto) 17.3 H 11.6 H Abs Immat Gran (auto) 0.05 H 0.04 H Fibrinogen 643 H VBG pH 7.451 H Carbon Dioxide 34.2 H BUN 20.0 H Glucose 117 H AST 11 L Alkaline Phosphatase 118 H Total Protein 6.2 L Albumin 2.6 L 2.4 L Procalcitonin 1.14 H Urine Nitrite Positive A Ur Leukocyte Esterase Large A Urine RBC 2-5 A Urine WBC 50-75 A Ur Squamous Epith Cells Few A Urine Bacteria Moderate A Assessment and Plan Assessment and Plan (1) Acute and chronic respiratory failure with hypoxia: Assessment and Plan: 1. [id number] hypoxic respiratory failure. 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 Acute is secondary to severe sepsis +/- HCAP given change in secretions. SpO2 currently 88% on FiO2 45%. Unclear if there is chronic hypercapnic respiratory failure or not - VBG suggests a degree of CO2 retention, but unclear if it meets the actual threshold of pCO2 55 to diagnose hypercapnic respiratory failure. Will obtain ABG to better evaluate the pH, pCO2, and pO2 status for this patient. 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 2. HCAP. Working diagnosis. Had HCAP 11/21/2023 and was transferred to [facility]. I do not have any sputum or culture results from [facility] regarding this. Abdominal/pelvic CT 01/20/2024 notes persistent moderate bilateral consolidations, though mildly improved from 11/21/2023. Patient is currently on Zosyn for UTI, which should have good coverage for typical HCAP agents. Do not feel he requires vancomycin at this time. He needs a good pulmonary toilet - he is quite rhonchorus. Will add hypertonic saline nebs to help loosen secretions. If this fails, will consider Mucomyst. 3. UTI. History of Klebsiella pneumoniae and Acinetobacter baumanii UTI 11/20/2013. Acinetobacter was susceptible to Zosyn in November, so reasonable to start with that. Awaiting C&S. 4. Severe sepsis seondary to #2 & #3. Though lactate is just below threshold of 2 for severe sepsis criteria, he did present with HR 116 and RR 23 along with WBC 19.5. There is end-organ involvement as he is hypoxic on baseline FiO2 settings - SpO2 88% on FiO2 45%. Continue to treat underlying conditions. 5. GI bleed. Presenting complaint - no active GI bleeding seen at this time. On Eliquis d/t stroke. 6. 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 Affects pulmonary toilet and communication. He is able to communicate with eyes however.
[2024-01-21 07:46] LABS: pH ABG 7.389 (7.350-7.450)
[2024-01-21 07:48] LABS: ABG PCO2 54.8 mmHg (35.0-45.0); HCO3 ABG 33.1 mmol/L (22.0-26.0); PO2 ABG 56.7 mmHg (80.0-100.0)
[2024-01-21 07:49] LABS: Allen Test POSITIVE (POSITIVE); Base Excess ABG 8.1 mmol/L (-2.0-2.0); O2 Mode VENT; Oxygen Saturation ABG 90.6 %
[2024-01-21 07:50] LABS: Fractionated Inspired Oxygen 45 %; Puncture Site L RAD; Rate 14; Tidal Volume 400; Vent Mode A/C
[2024-01-21] MEDS: SODIUM CHLORIDE 3% INHALATION 15 ML NEB 3 ML IH ×3 (07:58→20:05)
[2024-01-21] MEDS: ALBUTEROL SULFATE 2.5 MG/3 ML VIAL NEB IH ×3 (07:58→20:05)
[2024-01-21] MEDS: SENNOSIDES/DOCUSATE SODIUM 1 TAB TABLET PEG (08:17)
[2024-01-21] MEDS: SUCRALFATE 1 GM TABLET G-TUBE ×4 (08:18→21:22)
[2024-01-21] MEDS: APIXABAN 5 MG TABLET G-TUBE ×2 (08:18→21:24)
[2024-01-21] MEDS: BUSPIRONE HCL 10 MG TABLET 5 MG G-TUBE (08:18)
[2024-01-21] MEDS: POLYETHYLENE GLYCOL 3350 17 GM POWDER PACKET G-TUBE (08:18)
[2024-01-21] MEDS: OMEPRAZOLE 40 MG CAPSULE.DR G-TUBE (08:18)
[2024-01-21] MEDS: METOPROLOL TARTRATE 25 MG TABLET G-TUBE (08:18)
[2024-01-21] MEDS: ESCITALOPRAM 10 MG TABLET G-TUBE (08:18)
[2024-01-21] MEDS: CETIRIZINE HCL 10 MG TABLET FEED TUBE (08:18)
--- NOTE | 2024-01-21 09:39 | SWNOTE1 ---
Pt is from [facility] checking to verify if he is rn long term care or skilled.
--- NOTE | 2024-01-21 10:01 | P.HP_ITS ---
<Statement entered by Rad Solomon MD - 01/21/24 13:16> Patient seen and examined, agree with assessment and plan below. Presented with pneumonia and UTI. Noted worsening hypoxia and pulmonology managing. Resumed home medication. Continue zosyn and await cultures. Wound care consulted. Diagnosis: 1. Pneumonia 2. Catheter associated UTI 3. Acute on chronic hypoxic respiratory failure 4. Sepsis 5. Cerebrovascular disease 6. 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 Emesis 8. 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 The patient reportedly vomited yesterday and emesis reportedly came out of his nose and was noted to be dark in color. Aspirate from his G-tube was checked for Gastroccult and was reportedly positive at the facility. He was sent to the ED for further evaluation. Workup in the ED revealed leukocytosis (19.5 with left shift), tachycardia (116), tachypnea (up to 33 in ED), soft blood pressures (96/58). Lactic acid was high normal (1.9), but a procalcitonin was positive in the sepsis range (1.14) and a UA was positive for UTI. A chest x-ray revealed moderate left parenchymal infiltrates and right perihilar infiltrate. As the patient complained of abdominal pain on exam, a CT of the abdomen was obtained which was unremarkable. There was no evidence of bleeding in the ED and a fecal occult blood was reportedly negative although we do not see that in the electronic chart. The patient's hemoglobin is stable at his baseline chronic anemia (11.0). He was admitted overnight as an inpatient for a UTI and pneumonia to the hospitalist service. At the time of my exam the patient is resting in bed in the ICU. He has been seen in consult by Dr. Roe, head operator sulfide, who was providing ventilator management and we appreciate his assistance with this patient's care. The patient is requiring higher O2 delivery than his baseline (40%) and thus is exhibiting acute on chronic respiratory failure with hypoxia. HCAP is suspected and possibly aspiration pneumonia. His FIO2 has been increased to 50% d/t persistent hypoxia (88-89% on 45% FIO2). His BP remains soft with a MAP of 55 early this morning (MAP 70-80s overnight). We do not see any evidence of bleeding, but we will repeat a Gastroccult test. For now we have continued his apixaban due to his recent ischemic stroke. Opioid HPI Opioid Management Most Recent Opioid Data: Last Pain Scale 4 01/21/24 09:00 Last Pain Assessment 01/21/24 10:00 Last MAR Pain Assessment 01/21/24 06:15 Last ORT Total Score 2 01/20/24 20:19 Last ORT Risk Category Low Risk 01/20/24 20:19 Ur Phencyclidine Scrn Negative (NEGATIVE) 06/08/23 22:16 Review of Systems ROS Status of ROS 10 or more systems reviewed and unremark able except as noted in history and below (answers yes/no questions by blinking. ) [facility] Medical History (Updated 01/21/24 @ 11:22 by Danii Bartholomew NP) HTN (hypertension) ?I10 - Essential (primary) hypertension (ICD-10) Decubital ulcer ?L89.90 - Pressure ulcer of unspecified site, unspecified stage (ICD-10) Anemia ?D64.9 - Anemia, unspecified (ICD-10) 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 ?G83.5 - 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 (ICD-10) CVA (cerebral vascular accident) ?I63.9 - Cerebral infarction, unspecified (ICD-10) Status epilepticus ?G40.901 - Epilepsy, unspecified, not intractable, with status epilepticus (ICD-10) Respiratory failure ?J96.90 - Respiratory failure, unspecified, unspecified whether with hypoxia or hypercapnia (ICD-10) Social History Highest level of school completed/degree received: Associate degree: occupational, technical, vocational program Gender Identity: male Meds Home Medications and Allergies Home Medications ?Medication ?Instructions ?Recorded ?Confirmed ?Type acetaminophen 325 mg tablet (Pain 650 mg feeding tube Q4H PRN fever 11/21/23 01/21/24 History Relief (acetaminophen)) or pain albuterol sulfate 2.5 mg/3 mL 2.5 mg inhalation Q4H PRN 11/21/23 01/20/24 History (0.083 %) solution for nebulization shortness of breath or wheezing alprazolam 1 mg tablet 1 mg PO TID PRN anxiety 11/21/23 01/20/24 History apixaban 5 mg tablet (Eliquis) 5 mg PO Q12H 11/21/23 01/20/24 History baclofen 5 mg tablet 5 mg feeding tube Q8H 11/21/23 01/20/24 History cetirizine 10 mg capsule (All Day 10 mg PO DAILY 11/21/23 01/20/24 History Allergy (cetirizine)) escitalopram oxalate 10 mg tablet 10 mg feeding tube DAILY 11/21/23 01/21/24 History gabapentin 250 mg/5 mL oral 300 mg feeding tube TID 11/21/23 01/20/24 History solution metoprolol tartrate 25 mg tablet 25 mg feeding tube Q12H 11/21/23 01/20/24 History oxycodone 10 mg tablet 10 mg feeding tube Q6H 11/21/23 01/20/24 History polyethylene glycol 3350 17 17 g PO DAILY 11/21/23 01/20/24 History gram/dose oral powder (ClearLax) sennosides 8.6 mg tablet (Keena-jigar) 8.6 mg PO BID 11/21/23 01/21/24 History buspirone 5 mg tablet 5 mg feeding tube BID 01/20/24 01/21/24 History esomeprazole magnesium 40 mg 40 mg G-tube Q24H 01/20/24 01/20/24 History granules delayed release for susp melatonin 3 mg capsule 3 mg PO .QHS 01/20/24 01/21/24 History sucralfate 1 gram tablet 1 g feeding tube TID 01/20/24 01/21/24 History albuterol sulfate 2.5 mg/3 mL 2.5 mg inhalation BID 01/21/24 01/21/24 History (0.083 %) solution for nebulization alprazolam 1 mg tablet (Xanax) 1 mg PO .QHS 01/21/24 01/21/24 History carboxymethylcellulose sodium 1 % 1 drp ophthalmic (eye) Q6H 01/21/24 01/21/24 History eye drops (Artificial Tears (carboxymethylcellulose)) glucagon 1 mg solution for 1 mg subcut PRN PRN hypoglycemia 01/21/24 01/21/24 History injection (Glucagon Emergency Kit) Allergies Allergy/AdvReac Type Severity Reaction Status Date / Time fentanyl Allergy Severe Anaphylaxis Verified 11/21/23 09:59 Calcium Channel Blocking Allergy Unknown Unknown Verified 11/21/23 07:36 Agents-Dih fluoxetine [From Prozac] Allergy Unknown Verified 11/21/23 07:36 Exam Constitutional Vital Signs, click to edit/add: Last Vital Signs Temp 99.2 F 01/20/24 23:05 Pulse 103 H 01/21/24 08:40 Resp 22 H 01/21/24 08:03 BP 102/53 01/21/24 08:16 Pulse Ox 86 L 01/21/24 08:40 O2 Del Method Mechanical Ventilator 01/21/24 08:01 FiO2 50 01/21/24 08:47 Common normals: no apparent distress, alert and well nourished General appearance: cooperative Orientation/consciousness: Yes awake HENMT Common normals: normocephalic, head/scalp atraumatic, hearing grossly normal bilaterally, external nose normal and moist oral mucous membranes Eye Common normals: PERRL, EOMs intact bilaterally, conjunctivae normal and no scleral icterus Alignment: alignment normal Eyelid: eyelids normal Neck & C-Spine Common normals: full ROM, supple and no JVD Chest Common normals: inspection of chest normal Chest: symmetrical chest wall rise Respiratory Common normals: normal respiratory effort, no retractions and no use of accessory muscles Auscultation: rales (Faint, scattered ) and rhonchi (R side, worse RLL) Cardio Common normals: no JVD, regular rate, regular rhythm, S1 normal heart sound, S2 normal heart sound, no gallops, no clicks, no murmurs, no rub and peripheral pulses 2+ throughout GI Common normals: Normal to inspection, nondistended, normoactive bowel sounds present, soft to palpation, no hepatosplenomegaly, no masses and no bruits Palpation: tender (RUQ 7/10. 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 Awake/alert. Answers yes/no questions appropriately. All limbs flaccid. Flat faccies.) Results Labs Labs: Short CBC 01/20/24 01/21/24 Range/Units 16:00 04:15 WBC 19.5 H 14.6 H (4.0-11.0) 10^3/uL Hgb 11.0 L 9.7 L (14.0-18.0) g/dL Hct 38.4 L 34.2 L (42.0-54.0) % Plt Count 358 281 (150-450) 10^3/uL BMP 01/20/24 01/21/24 16:00 04:15 Sodium 141 141 Potassium 4.0 3.7 Chloride 103 107 Carbon Dioxide 31.3 34.2 H BUN 20.0 H 18.0 Creatinine 0.73 0.77 Glucose 117 H 79 Calcium 9.5 9.5 Liver Function 01/20/24 01/21/24 Range/Units 16:00 04:15 Total Bilirubin 0.4 0.7 (0.2-1.0) mg/dL AST 18 11 L (15-37) U/L ALT 33 24 (16-63) U/L Alkaline Phosphatase 118 H 100 (46-116) U/L Albumin 2.6 L 2.4 L (3.4-5.0) g/dL Urine 01/20/24 Range/Units 16:20 Urine Color Yellow (YELLOW) Urine Clarity Sl cloudy (CLEAR) Urine pH 7.5 (5.0-9.0) Ur Specific [place] 1.015 (1.005-1.025) Urine Protein Negative (NEG/TRACE) mg/dL Urine Glucose (UA) Negative (NEGATIVE) mg/dL ABG ABG results: 01/20/24 01/21/24 01/21/24 16:00 04:15 07:36 ABG pH 7.389 ABG pCO2 54.8 H* ABG pO2 56.7 L* ABG HCO3 33.1 H ABG O2 Saturation 90.6 ABG Base Excess 8.1 H VBG pH 7.451 H 7.422 VBG pCO2 47.1 50.9 Pulse Oximetry Attestation: I have reviewed the pertinent pulse oximetry results. Imaging CT scan - abdomen: Attestation: I have reviewed the pertinent imaging results. Radiologist's impression: IMPRESSION: 1. Note that there is oral contrast versus other hyperattenuating material in the colon which would obscure an active colonic bleed. 2. No acute intra-abdominal abnormality demonstrated. 3. Borderline hepatomegaly. 4. The bladder is only partially decompressed by the Iverson catheter. Several layering bladder stones are present. Chest x-ray: Attestation: I have reviewed the pertinent imaging results. Radiologist's impression: IMPRESSION: Moderate left parenchymal infiltrates and small pleural effusion Right perihilar infiltrate versus rotation Assessment and Plan Assessment and Plan (1) Sepsis: Assessment and Plan: Acute * Adm inpatient * We anticipate greater than a 2 midnight stay for medically necessary hospital care including IVF, IV antibiotics, close nursing monitoring of VS, specialty pulmonology care * AEB: * SEP1 criteria (Severe Sepsis): Tachycardia (116), Tachypnea (33), SBP (96/58), WBC (19,500), Source - Pneumonia, UTI * SEP3 criteria (Sepsis w/o septic opal): SOFA score of 4 (PF ratio 124 on support, MAP < 70), Source - Pneumonia, UTI * 2 Liter IVF boluses administered in the ED * LR at 125/hr for maintenance * BP remains soft but stable with a MAP > 70 at the time of exam * Low threshold to give further IVF boluses pending clinical course * Hold home antihypertensives for now d/t hypotension * ABX - see below * Lactic acid WNL in ED * Blood cultures x 2 obtained in the ED - pending * Procalcitonin elevated to sepsis level in ED (1.14) - repeat in AM * CBC, CMP daily Qualifiers: Sepsis type: sepsis due to unspecified organism Sepsis acute organ dysfunction status: with acute organ dysfunction Severe sepsis acute organ dysfunction type: acute respiratory failure Acute respiratory failure type: with hypoxia Severe sepsis shock status: without septic shock Qualified Code(s): A41.9 - Sepsis, unspecified organism; R65.20 - Severe sepsis without septic shock; J96.01 - Acute respiratory failure with hypoxia (2) HCAP (healthcare-associated pneumonia): Assessment and Plan: Acute * IVPB Zosyn for broad spectrum coverage * Consider adding MRSA coverage with Vanco pending clinical course. * Risk for ventilator associated infection - Zosyn adequate treatment for now as it covers pseudomonas * Consult Dr Roe, pulmonology - we appreciate his assistance with this pt's care * Defer ventilator managment to Dr Roe * Sputum culture - sent from ED, but secretions are now thick and yellow/green. Repeat sputum culture today. * CBC, CMP daily (3) Acute and chronic respiratory failure with hypoxia: Assessment and Plan: Acute * 2/2 HCAP/aspiration/vent associated infection * Currently requiring 50% FIO2 delivery - sats 91-94% * Baseline FIO2 delivery 40% * Defer management to pulmonology (4) UTI (urinary tract infection) due to urinary indwelling Iverson catheter: Assessment and Plan: Acute * IVPB Zosyn - broad coverage for gram neg pathogens * UA C&S pending Qualifiers: Indwelling urinary catheter type: indwelling urethral catheter Encounter type: initial encounter Qualified Code(s): T83.511A - Infection and i nflammatory reaction due to indwelling urethral catheter, initial encounter; N39.0 - Urinary tract infection, site not specified (5) Vomiting: Assessment and Plan: Acute * Unclear etiology * CT abdomen neg for acute pathology * Zofran for nausea - currently denies * Resume TF per dietary recommendations - slow initiation Qualifiers: Vomiting type: unspecified Nausea presence: unspecified Qualified Code(s): R11.10 - Vomiting, unspecified (6) Abdominal pain: Assessment and Plan: Acute * benign in absence of palpation * CT abdomen neg for acute liver/gallbladder/pancreas pathology or inflammation * Monitor Qualifiers: Abdominal location: right upper quadrant Qualified Code(s): R10.11 - Right upper quadrant pain (7) GIB (gastrointestinal bleeding): Assessment and Plan: Suspected * Reported from NH, but no clinical evidence of bleeding since arrival in ED * Gastroccult from GT aspirate * Repeat fecal occult blood test * Continue home Apixaban for now * Continue home PPI and sucralfate (8) 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 * Communication possible w/ Yes/No questions or using blinking to spell out words * Supportive care (9) CVA (cerebral vascular accident): Assessment and Plan: Chronic * Ischemic brainstem CVA 05/2023 * Continue home apixaban (10) Anemia: Assessment and Plan: Chronic * Stable at baseline * Pt following outpatient with hematology for complete work up * Obtain LDH in AM as pt unable to obtain to date as outpatient * Consider venofer infusion pending clinical course (11) Decubital ulcer: Assessment and Plan: Chronic * Wound nurse c/s (12) HTN (hypertension): Assessment and Plan: Chronic * Hold home metoprolol for now d/t hypotension/sepsis Urinary Catheter Management Urinary Catheter Management Urethral: Cath placed during this visit: yes Urethral indwelling: Yes Reason for continuing: prolonged immobilization Insertion date: 01/20/24 Insertion time: 19:13
--- NOTE | 2024-01-21 10:13 | W.PM.WC ---
Wound Consult Note Assessment and Plan (1) Acute and chronic respiratory failure with hypoxia: Plan Consult: Coccyx ulcer Patient seen today in ICU bed. Mom at bedside. States patient developed stage 4 pressure ulcer (was once down to bone) after having a brain stem stroke and was hospitalized. States it has been debrided multiple times at the bedside and was treated with Negative Pressure Wound Therapy (NPWT) at the senior living nursing facility he is currently residing at. No other areas of skin breakdown noted. He does have edema to BLE and BUE. Puffy hands and feet. No breakdown or dryness noted. Heels intact. Mom assisted with repositioning to assess coccyx ulcer. Dressing removed. Green/yellow drainage noted with some odor noted as well. Wound bed is smooth, red, moist. No visible slough or eschar. Edges slightly macerated. Measurements [id number] with 3cm undermining from 9:00-3:00. Recommendations: Dakins moist dressing to open coccyx ulcer, tuck loosely. Cover with ABD pad. Change daily. Reposition frequently Air mattress overlay Float heels off bed Photo taken. Orders placed in chart. Please call [phone] for any questions or concerns. Ramírez Marion, GWENDOLYNN, RN, CWON
--- NOTE | 2024-01-21 10:48 | CM.NOTE ---
Rounds made with Dr. Solomon. Dr. Solomon discusses plan of care and tests results with Mother and Mr. Salcedo. No plan for discharge today.
--- NOTE | 2024-01-21 11:18 | SWNOTE1 ---
Pt is fpc at [facility], pending medicaid, no bed hold. Viky at [facility] did let DAMEON know that she does try to skill him when he leaves facility and returns. DAMEON sent updates, Viky let SW know they are not going to try to skill him and he can return at any time.
--- NOTE | 2024-01-21 11:36 | DIETREC ---
Recommend Jevity 1.5 formula@ 45 mL/hour continuous feed. Flush tube w/125 mL water q4 hours/6x daily. Provide 30 mL PRO-stat BID.
[2024-01-21 11:43] LABS: Internal Control Within Normal Limits; Occult Blood Gastric Fluid NEGATIVE; pH Gastric Fluid 4
[2024-01-21 13:32] LABS: Glucometer 90 mg/dL (74-106)
--- NOTE | 2024-01-21 13:57 | PC.NURSE ---
pt diaphoretic, checked bg, 90.
[2024-01-21] MEDS: SODIUM HYPOCHLORITE HALF STRENGTH (0.25%) 473 ML BOTTLE 30 ML TOPICAL (14:00)
--- NOTE | 2024-01-21 14:45 | SWNOTE1 ---
DAMEON spoke with pt's mother and father in [facility] as they were walking out. DAMEON did ask pt's parents if they were happy with his care at [facility]. They voiced they are very happy with his care and he is in the vent unit. Pt's mother stated if there are any issues, [facility] does address them. Plan is for pt to return. Pt's mother did ask SW about medicaid. SW let her know that Viky in admissions at [facility] did let SW know that it is still pending. Pt's mother did ask if SW knew anything more about medicaid. DAMEON advised pt's mother that the nursing facilities tend to know more about longterm medicaid at facilities. She voiced understanding. DAMEON did assure pt's mother that there are various medicaid programs and it is not always cut and dry in regards to qualifications when it comes to longterm.
[2024-01-21] MEDS: JEVITY 1.5 CAL 237 ML LIQUID 10 ML G-TUBE (15:18)
--- NOTE | 2024-01-21 15:31 | RESP.RT ---
trach gauze changed
[2024-01-21] MEDS: PROSTAT 15 GM PROTEIN/100 CAL 30 ML LIQUID PACKET PO (21:22)
[2024-01-21] MEDS: ALPRAZOLAM 1 MG TABLET G-TUBE (21:22)
[2024-01-21] MEDS: LACTATED RINGER'S SOLUTION 1,000 ML 500 ML IV (23:49)
[2024-01-22] VITALS (163 sets, daily range): BP systolic 75–137; BP diastolic 41–88; PULSE 60–130; TEMP 36.5–38.4; O2SAT 83–100
[2024-01-22] MEDS: PIPERACILLIN SODIUM/TAZOBACTAM 3.375 GM in 0.9 % SODIUM CHLORIDE 50 ML IV ×3 (00:53→17:17)
[2024-01-22] MEDS: OXYCODONE HCL 5 MG TABLET 10 MG PO ×5 (00:57→22:45)
[2024-01-22] MEDS: ALBUTEROL SULFATE 2.5 MG/3 ML VIAL NEB IH (01:28)
--- NOTE | 2024-01-22 01:35 | RESP.RT ---
Sp02 ranging from 87%-89% and Vent alarming low tidal volume. Pt taken off of vent and PPV was provided and saline was instilled and RT suctioned trach and thick creamy secretions were obtained. Gauze also changed around trach.
[2024-01-22] MEDS: ACETYLCYSTEINE 400 MG/4 ML VIAL 100 MG IH (03:04)
[2024-01-22] MEDS: GUAIFENESIN 200 MG/10 ML LIQUID G-TUBE (03:16)
[2024-01-22 04:58] LABS: Basophils Percent Auto 0.2 % (0.2-2.0); Eosinophils Absolute Auto 0.1 10^3/uL (0.0-0.7); Eosinophils Percent Auto 0.8 % (0.9-7.0); Hematocrit 29.3 % (42.0-54.0); Hemoglobin 8.1 g/dL (14.0-18.0); Immature Granulocytes Abs Auto 0.02 10^3/uL (0.00-0.03); Immature Granulocytes Pct Auto 0.2 % (0.0-0.5); Lymphocytes Absolute Auto 1.2 10^3/uL (1.2-3.8); Lymphocytes Percent Auto 9.1 % (20.5-60.0); Mean Corpuscular HGB Conc 27.6 g/dL (29.9-35.2); Mean Corpuscular Volume 86.9 fL (80.0-94.0); Mean Platelet Volume 12.3 fL (9.5-13.5); Monocytes Absolute Auto 0.4 10^3/uL (0.3-0.8); Neutrophils Absolute Auto 11.2 10^3/uL (1.4-6.5); Neutrophils Percent Auto 86.7 % (43.0-75.0); Platelet Count 261 10^3/uL (150-450); Red Blood Count 3.37 10^6/uL (4.70-6.10); Red Cell Distribution Width 18.9 % (11.0-15.0); White Blood Count 12.9 10^3/uL (4.0-11.0)
[2024-01-22 05:21] LABS: Alanine Aminotransferase 20 U/L (16-63); Albumin Globulin Ratio 0.6; Albumin Level 2.1 g/dL (3.4-5.0); Alkaline Phosphatase 90 U/L (46-116); Aspartate Amino Transferase 14 U/L (15-37); BUN Creatinine Ratio 23.2; Bilirubin Total 0.3 mg/dL (0.2-1.0); Calcium 8.9 mg/dL (8.5-10.1); Carbon Dioxide 32.1 mmol/L (21.0-32.0); Chloride 103 mmol/L (98-107); Estimated GFR (African America >60 (>=60); Estimated GFR (Non-African Ame >60 (>=60); Globulin 3.8 g/dL; Glucose 166 mg/dL (74-106); Potassium 3.1 mmol/L (3.5-5.1); Sodium 141 mmol/L (136-145); Total Protein 5.9 g/dL (6.4-8.2)
[2024-01-22 05:22] LABS: Lactate Dehydrogenase 165 U/L (85-227)
[2024-01-22] MEDS: LACTATED RINGER'S SOLUTION 1,000 ML 125 ML IV ×2 (05:25→15:00)
[2024-01-22] MEDS: BACLOFEN 10 MG TABLET 5 MG FEED TUBE ×3 (05:25→22:45)
[2024-01-22 05:28] LABS: PROCALCITONIN 1.05 ng/mL (0.00-0.50)
--- NOTE | 2024-01-22 05:57 | PC.NURSE ---
Patient was turned Q2H. When the Patient was turned to his left side his blood pressure would drop significantly this shift. He was cradled this morning instead of turning on his left side and the blood pressure stayed stable. Patient resting comfortable. Tube feed infusing at 45 ml/hr and Patient tolerating it well. Minimal residual noted.UOP 325cc for the shift. Patient was suctioned every hour with thick creamy secretion brought up.Will continue to monitor.
[2024-01-22] MEDS: GABAPENTIN 300 MG CAPSULE PO ×3 (06:15→22:44)
[2024-01-22] MEDS: SUCRALFATE 1 GM TABLET G-TUBE ×3 (06:49→22:45)
--- NOTE | 2024-01-22 07:12 | XR_ITS ---
The [address] [address] Patient Name: LOLIS QUINONES MRN: [id number] date: 1985 Sex: M Assigned Patient Location: ICU Current Patient Location: ICU Accession/Order Number: [id number] Exam Date: 01/22/2024 07:35 Report Date: 01/22/2024 08:12 At the request of: HAROLDO ORTIZ Procedure: XR chest 1V EXAM: XR chest 1V HISTORY: Respiratory failure, pneumonia COMPARISON: 01/20/2024 TECHNIQUE: AP semierect portable FINDINGS: LUNGS: Moderate bilateral mid to lower lung infiltrates obscuring the left hemidiaphragm, significantly increased. Stable tracheostomy cannula VASCULATURE: No increased pulmonary vasculature. PLEURA: No pneumothorax. Likely left pleural effusion CARDIAC: No cardiomegaly or cardiac silhouette abnormality. MEDIASTINUM: No visible mass or adenopathy. BONES: No fracture or visible bone lesion. Cervical fusion hardware OTHER: Negative. XR/XR chest 1V IMPRESSION: Progression of moderate bilateral parenchymal infiltrates left greater than right Electronically authenticated by: CLAIR CORTES Date: 01/22/2024 08:12
--- NOTE | 2024-01-22 07:14 | PM.PLPN ---
Progress Note: A&P Assessment and Plan (1) Acute and chronic respiratory failure with hypoxia: Assessment and Plan: 1. Tstsp-cd-[id number] hypoxic respiratory failure. 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 Acute is secondary to severe sepsis +/- HCAP given change in secretions. ?Increased FiO2 requirements ? unclear if related to severe sepsis, worsening HCAP, etc.? Borderline hypercapnia with pCO2 54.8.? 2. HCAP. Sputum C&S pending.? Increased secretions yesterday ? hypertonic saline had some benefit, but had episode last night (? mucus plugging) with 1 dose of Mucomyst administered.? Currently less rhonchi, but has increased FiO2 requirements and breathing over vent.? Will check CXR. ?More aggressive pulmonary toilet ? change albuterol to levalbuterol given tachycardia and add ipratropium scheduled TID in conjunction with hypertonic saline ? as well as PRN use.? Discussed possibility for bronchoscopy if patient is having recurrent episodes of mucus plugging. 3. UTI. History of Klebsiella pneumoniae and Acinetobacter baumanii UTI 11/20/2013. ?UA consistent with another UTI ? awaiting C&S. 4. Severe sepsis seondary to #2 & #3. Procalcitonin and WBC still elevated, but slight improvement today. 5. GI bleed. Currently no objective evidence of active GI bleed, but Hb has dropped from 11 to 8.1 in the past ~40 hours (? dilutional).? Defer to hospitalist for plan of care. 6. Normocytic anemia. As above, question GI loss, dilutional, etc.? Transfuse if Hb <7. 7. 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 Remains on Eliquis for now.? Communicates with blinks and eye movements. Subjective Subjective Interval history: Discussed case with RN and RT. Addition yesterday of hypertonic saline produced increased amount of secretions. Despite this, last night he developed increased respiratory distress and required a minor period requiring bagging and a dose of Mucomyst. Currently appears calm. Reviewed labs - Hb has dropped to 8.1 from 11 two days ago, though no active source is currently seen. Procalcitonin and WBC still elevated but trending down. ABG showed borderline hypercapnia with pCO2 54.8. Exam Constitutional Vital Signs, click to edit/add: Last Vital Signs Temp 97.8 F 01/22/24 00:00 Pulse 107 H 01/22/24 05:00 Resp 17 01/22/24 03:04 BP 117/63 01/22/24 01:30 Pulse Ox 96 01/22/24 05:00 O2 Del Method Mechanical Ventilator 01/22/24 03:04 FiO2 60 01/22/24 05:40 Documenting provider has reviewed patient's vital signs: yes Common normals: no apparent distress General appearance: patient mechanically ventilated HENNC Common normals: normocephalic Eye Other: Able to blink and move eyes Neck & C-Spine General: trachea midline and tracheostomy present (No exudate or bleeding); no tracheal deviation Chest Common normals: inspection of chest normal Respiratory Other: Slightly more air movement than yesterday with decreased rhonchi. RR ~24 (over vent settings) Cardio Other: Sinus tachycardia - regular rhythm GI Inspection: normal to inspection and GI tube present Bladder/kidney exam: catheter in place Extremity General: edema (1+ BLE) Neuro Other: Limited movement, confined mainly to eyes and a few other facial gestures Psych Attitude: calm
[2024-01-22] MEDS: [UNRECOGNIZED DRUG - REMARK] 125 EACH PO ×3 (08:00→16:00)
[2024-01-22] MEDS: OMEPRAZOLE 40 MG CAPSULE.DR G-TUBE (08:06)
[2024-01-22] MEDS: JEVITY 1.5 CAL 237 ML LIQUID 45 ML G-TUBE ×3 (08:06→23:53)
[2024-01-22] MEDS: ESCITALOPRAM 10 MG TABLET G-TUBE (08:07)
[2024-01-22] MEDS: BUSPIRONE HCL 10 MG TABLET 5 MG G-TUBE ×2 (08:07→21:04)
[2024-01-22] MEDS: APIXABAN 5 MG TABLET G-TUBE ×2 (08:07→21:04)
[2024-01-22] MEDS: SENNOSIDES 8.6 MG TABLET 8.59999999999999964 MG PO (08:07)
[2024-01-22] MEDS: POTASSIUM CHLORIDE 10 MEQ ER TABLET 40 MEQ G-TUBE (08:07)
[2024-01-22] MEDS: PROSTAT 15 GM PROTEIN/100 CAL 30 ML LIQUID PACKET PO ×2 (08:08→21:04)
[2024-01-22] MEDS: CETIRIZINE HCL 10 MG TABLET FEED TUBE (08:08)
[2024-01-22] MEDS: POLYETHYLENE GLYCOL 3350 17 GM POWDER PACKET G-TUBE (08:08)
[2024-01-22] MEDS: LEVALBUTEROL HCL 0.63 MG/3 ML VIAL.NEB 0.630000000000000004 MG IH ×3 (08:34→21:44)
[2024-01-22] MEDS: IPRATROPIUM BROMIDE 0.5 MG/2.5 ML VIAL.NEB IH ×3 (08:35→21:44)
[2024-01-22] MEDS: POTASSIUM CHLORIDE 40 MEQ in 0.9 % SODIUM CHLORIDE 250 ML 67.5 MEQ IV (08:35)
[2024-01-22] MEDS: SODIUM CHLORIDE 3% INHALATION 15 ML NEB 3 ML IH ×3 (08:35→21:44)
--- NOTE | 2024-01-22 10:40 | P.PN_ITS ---
Progress Note: Subjective Subjective Interval history: Patient not doing well today. Worsening respiratory status with increased oxygen demands. Continues to have thick secretions. Pulmonology monitoring and will perform bronchoscopy later today. Afebrile. WBC improved but still elevated. Reviewed dietary recommendations. Hgb decreased since admission. No evidence of GI bleeding and gastro occult negative. Occult stool pending. Cultures pending. Exam Constitutional Vital Signs, click to edit/add: Last Vital Signs Temp 97.8 F 01/22/24 07:00 Pulse 115 H 01/22/24 10:00 Resp 19 01/22/24 09:40 BP 96/50 01/22/24 09:00 Pulse Ox 94 L 01/22/24 10:00 O2 Del Method Mechanical Ventilator 01/22/24 09:40 O2 Flow Rate 14 01/22/24 07:00 FiO2 60 01/22/24 10:00 Documenting provider has reviewed patient's vital signs: yes Common normals: no apparent distress and alert HENMT Common normals: normocephalic Eye Common normals: PERRL and EOMs intact bilaterally Respiratory Auscultation: rhonchi throughout Cardio Common normals: regular rate, regular rhythm, no gallops, no murmurs and no rub GI Common normals: Normal to inspection, nondistended, normoactive bowel sounds present and non-tender Extremity General: edema (1+ nonpitting edema) Progress Note: Objective Labs Labs: Short CBC 01/22/24 Range/Units 04:30 WBC 12.9 H (4.0-11.0) 10^3/uL Hgb 8.1 L (14.0-18.0) g/dL Hct 29.3 L (42.0-54.0) % Plt Count 261 (150-450) 10^3/uL BMP 01/22/24 04:30 Sodium 141 Potassium 3.1 L Chloride 103 Carbon Dioxide 32.1 H BUN 16.0 Creatinine 0.69 L Glucose 166 H Calcium 8.9 Liver Function 01/22/24 Range/Units 04:30 Total Bilirubin 0.3 (0.2-1.0) mg/dL AST 14 L (15-37) U/L ALT 20 (16-63) U/L Alkaline Phosphatase 90 (46-116) U/L Albumin 2.1 L (3.4-5.0) g/dL Progress Note: A&P Assessment and Plan (1) HCAP (healthcare-associated pneumonia): (2) UTI (urinary tract infection) due to urinary indwelling Iverson catheter: Qualifiers: Encounter type: initial encounter Indwelling urinary catheter type: indwelling urethral catheter Qualified Code(s): T83.511A - Infection and inflammatory reaction due to indwelling urethral catheter, initial encounter; N39.0 - Urinary tract infection, site not specified (3) Acute and chronic respiratory failure with hypoxia: (4) Sepsis: Qualifiers: Sepsis type: sepsis due to unspecified organism Sepsis acute organ dysfunction status: with acute organ dysfunction Severe sepsis acute organ dy sfunction type: acute respiratory failure Acute respiratory failure type: with hypoxia Severe sepsis shock status: without septic shock Qualified Code(s): A41.9 - Sepsis, unspecified organism; R65.20 - Severe sepsis without septic shock; J96.01 - Acute respiratory failure with hypoxia (5) Anemia: Qualifiers: Anemia type: other cause Other causes of anemia: nutritional, protein deficiency Qualified Code(s): D53.0 - Protein deficiency anemia (6) Decubital ulcer: (7) Moderate protein-calorie malnutrition: (8) HTN (hypertension): Qualifiers: Hypertension type: primary hypertension Qualified Code(s): I10 - Essential (primary) hypertension (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 Cultures pending and add vanco and continue zosyn. Pulmonology will perform bronchoscopy later today. Monitor labs and vitals. Hgb decreased and possibly dilutional, no evidence of acute GI bleeding. Will continue to monitor. Urinary Catheter Management Urinary Catheter Management Urethral: Cath placed during this visit: yes Urethral indwelling: Yes Reason for continuing: prolonged immobilization Insertion date: 01/20/24 Insertion time: 19:13
--- NOTE | 2024-01-22 10:48 | CM.NOTE ---
Rounds made with Dr. Solomon. Dr. Solomon explains plan of care to father and to Mr. Salcedo. Plan for bronchoscopy today.
--- NOTE | 2024-01-22 11:16 | RESP.RT ---
titrated down to 50%
--- NOTE | 2024-01-22 11:18 | SWNOTE1 ---
DAMEON sent updates to Viky at [facility]. Updates included pulmonolgy note, physician note, wound care note, labs, vitals, dietary recommendations and notes, diagnostic imaging, and nursing notes. No discharge today, plan for a bronch around noon.
--- NOTE | 2024-01-22 11:51 | PT.DAILY ---
Physical Therapy Daily Note PT Daily Note/Assess Start: 01/22/24 11:43 Freq: Status: Active Protocol: Document 01/22/24 11:44 CHINTANTOSHIARODO (Rec: 01/22/24 11:51 TROY [id number]) Physical Therapy Daily Note/Assessment Time In/Time Out Time In 11:07 Time Out 11:20 Pain In Pain N/A Pain Out Pain N/A Subjective Subjective Pt supine upon arrival. His father is present. Pt does give consent for treatment by blinking and looking down for YES. Therapeutic Exercise Time Therapeutic Exercise Minutes (minutes) 10 Therapeutic Exercise Units 1 Therapeutic Exercise Treatment Therapeutic Exercise Treatment PROM performed to bilat UE and L LE - unable to get R leg out from under his left due to severe contractor. Remains supine upon completion with respiratory therapy present. Total Physical Therapy Time Total Therapy Minutes 10 Total Physical Therapy Units 1 Summary Daily Note Summary Fair tolerance to PROM stretches with no signs of distress. Was unable to stretch R LE due to position and severe contractor into knee flexion.
[2024-01-22] MEDS: MIDAZOLAM HCL 5 MG/ML VIAL 10 MG IV (12:09)
--- NOTE | 2024-01-22 12:50 | W.PM.PROCNOT ---
Date of procedure: 01/22/24 Procedure: Procedure Diagnostic and therapeutic flexible bronchoscopy with bronchoalveolar lavage (BAL) Indication Pneumonia with worsening infiltrates, mucus plugging Findings 1. Diffuse small mucus plugs throughout the bronchial tree 2. Granulation tissue in the right lower lobe consistent with suction trauma 3. Diffuse inflammation throughout the bronchial tree Anesthesia Moderate sedation (20 minutes) with Versed 10mg IV push Specimens BAL of the right middle lobe Estimated blood loss 0 Complications None Description Informed consent was obtained after risks, benefits, and alternatives were discussed with the patient and father who provided consent on the patient's behalf as his guardian.? Time out was initiated to confirm the correct patient, site, and procedure with all present voicing in the affirmative. 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 The bronchoscopy was performed at the patient's bedside in the ICU. Moderate sedation was administered and supervised by myself. Versed 10mg was administered and adequate sedation was achieved. Towel was placed over the patient's eyes to prevent spillage of secretions. The inner cannula of the tracheostomy was removed, the capnography was detached, and the swivel adapter was placed in circuit to allow insertion of the bronchoscope. The BFlex 2 Regular 5.0 bronchoscope was inserted into the circuit and passed into the trachea, advancing to the main yazan. Mildly diffuse inflammation was noted. The bronchoscope was then advanced through the right main bronchus to the right upper lobe, where the apical, posterior, and anterior segments were visualized.? The bronchoscope was advanced through the bronchus intermedius to the right middle lobe or the medial and lateral segments visualized.? The bronchoscope was then advanced to the right lower lobe superior, medial, anterior, lateral, and posterior basilar segments.? Granulation tissue was noted in the right lower lobe carinii consistent with suction trauma. Diffuse mild inflammation was seen throughout. Mild scatted mucus plugging was noted. The bronchoscope was then wedged into the right middle lobe where a BAL was obtained of opaque yellow & orangish secretions were obtained for culture. Next bronchoscope was retracted to the main yazan and advanced through the left main bronchus to the left upper lobe where the upper division apicoposterior and anterior, as well as lingular superior and inferior segments were visualized.? The bronchoscope was then advanced into the left lower lobe where the superior, anteromedial, lateral, and posterior basilar segments visualized.? As with the right side, mildly diffuse inflammation and scattered mucus plugs were noted throughout the left lung. The scattered mucus plugs were lavaged and suctioned, attempting to clear the secretions. Once the major airways appeared clear of secretions, the bronchoscope was removed. The inner cannula was inserted back into the tracheostomy, the capnography was placed back on the outer cannula, and the swivel adapter was removed and the ventilator tubing was reattached in circut. The patient tolerated the procedure well. The patient's father was updated on the findings. Anesthesia: Moderate Sedation Surgeon: Leonel Roe Condition: stable Disposition: ICU
--- NOTE | 2024-01-22 13:40 | SWNOTE1 ---
Operative and PT note sent to Viky at [facility].
[2024-01-22] MEDS: SODIUM HYPOCHLORITE HALF STRENGTH (0.25%) 473 ML BOTTLE 30 ML TOPICAL (13:53)
[2024-01-22] MEDS: VANCOMYCIN HCL 1,500 MG in 0.9 % SODIUM CHLORIDE 500 ML 250 MG IV ×2 (13:58→22:50)
[2024-01-22 15:16] LABS: Occult Blood Negative
[2024-01-22] MEDS: ACETAMINOPHEN 325 MG TABLET 650 MG G-TUBE (15:19)
[2024-01-22] MEDS: FUROSEMIDE 40 MG/4 ML VIAL IVP (16:10)
[2024-01-22] MEDS: NOREPINEPHRINE BITARTRATE/D5W 4 MG/250 ML PREMIX 30 MG IV (18:11)
[2024-01-22] MEDS: LEVOFLOXACIN IN DEXTROSE 5 % 750 MG/150 ML IV.SOLN 100 MG IV (21:04)
[2024-01-22] MEDS: WATER 125 EACH FEED TUBE ×2 (21:04→22:45)
[2024-01-23] VITALS (174 sets, daily range): BP systolic 84–147; BP diastolic 44–90; PULSE 78–130; TEMP 36.9–39.3; O2SAT 84–98
[2024-01-23] MEDS: NOREPINEPHRINE BITARTRATE/D5W 4 MG/250 ML PREMIX 30 MG IV (00:53)
[2024-01-23] MEDS: IPRATROPIUM BROMIDE 0.5 MG/2.5 ML VIAL.NEB IH ×4 (01:04→21:47)
[2024-01-23] MEDS: LEVALBUTEROL HCL 0.63 MG/3 ML VIAL.NEB 0.630000000000000004 MG IH ×4 (01:04→21:47)
[2024-01-23] MEDS: PIPERACILLIN SODIUM/TAZOBACTAM 3.375 GM in 0.9 % SODIUM CHLORIDE 50 ML IV ×3 (01:33→16:29)
[2024-01-23] MEDS: WATER 125 EACH FEED TUBE ×6 (03:10→22:36)
[2024-01-23] MEDS: LACTATED RINGER'S SOLUTION 1,000 ML 125 ML IV ×3 (03:10→22:27)
[2024-01-23 04:45] LABS: Basophils Absolute Auto 0.1 10^3/uL (0.0-0.1); Basophils Percent Auto 0.5 % (0.2-2.0); Eosinophils Absolute Auto 0.4 10^3/uL (0.0-0.7); Eosinophils Percent Auto 2.9 % (0.9-7.0); Hematocrit 30.7 % (42.0-54.0); Hemoglobin 8.5 g/dL (14.0-18.0); Immature Granulocytes Abs Auto 0.04 10^3/uL (0.00-0.03); Immature Granulocytes Pct Auto 0.3 % (0.0-0.5); Lymphocytes Absolute Auto 1.7 10^3/uL (1.2-3.8); Lymphocytes Percent Auto 12.2 % (20.5-60.0); Mean Corpuscular HGB Conc 27.7 g/dL (29.9-35.2); Mean Corpuscular Hemoglobin 24.1 pg (25.9-34.0); Mean Platelet Volume 12.3 fL (9.5-13.5); Monocytes Absolute Auto 0.7 10^3/uL (0.3-0.8); Monocytes Percent Auto 4.9 % (1.7-12.0); Neutrophils Absolute Auto 10.8 10^3/uL (1.4-6.5); Neutrophils Percent Auto 79.2 % (43.0-75.0); Platelet Count 293 10^3/uL (150-450); Red Blood Count 3.53 10^6/uL (4.70-6.10); Red Cell Distribution Width 18.9 % (11.0-15.0); White Blood Count 13.6 10^3/uL (4.0-11.0)
--- NOTE | 2024-01-23 04:48 | PC.NURSE ---
Patient suctioned via Trach for thick yellow/cervantes secretions. SPO2 increased to 92%
--- NOTE | 2024-01-23 04:54 | PC.NURSE ---
RT in with patient for low SPO2 levels, 88-89%. FIO2 increased from 55% to 65%.
[2024-01-23 05:25] LABS: Alanine Aminotransferase 16 U/L (16-63); Albumin Globulin Ratio 0.5; Alkaline Phosphatase 106 U/L (46-116); Anion Gap 7.5; Aspartate Amino Transferase 17 U/L (15-37); BUN Creatinine Ratio 15.9; Bilirubin Total 0.3 mg/dL (0.2-1.0); Calcium 8.7 mg/dL (8.5-10.1); Carbon Dioxide 32.1 mmol/L (21.0-32.0); Chloride 104 mmol/L (98-107); Estimated GFR (African America >60 (>=60); Estimated GFR (Non-African Ame >60 (>=60); Globulin 3.9 g/dL; Glucose 124 mg/dL (74-106); Potassium 3.6 mmol/L (3.5-5.1); Sodium 140 mmol/L (136-145); Total Protein 5.9 g/dL (6.4-8.2)
[2024-01-23 05:30] LABS: PROCALCITONIN 0.74 ng/mL (0.00-0.50)
[2024-01-23] MEDS: JEVITY 1.5 CAL 237 ML LIQUID 45 ML G-TUBE (06:20)
[2024-01-23] MEDS: VANCOMYCIN HCL 1,500 MG in 0.9 % SODIUM CHLORIDE 500 ML 250 MG IV (06:21)
[2024-01-23] MEDS: OXYCODONE HCL 5 MG TABLET 10 MG PO ×4 (06:21→22:36)
[2024-01-23] MEDS: BACLOFEN 10 MG TABLET 5 MG FEED TUBE ×3 (06:21→22:35)
[2024-01-23] MEDS: GABAPENTIN 300 MG CAPSULE PO ×3 (06:21→22:36)
--- NOTE | 2024-01-23 07:32 | PC.NURSE ---
Patient care in progress. Patient is Tachypneic with care and turning. Patient suctioned via inline suctioning for moderate amount of creamy cervantes, thick mucous.
--- NOTE | 2024-01-23 07:40 | RESP.RT ---
Pt had an episode of desaturation into low to mid 80s. Pt put on 100% FiO2, Instilled saline and bag suctioned patient . SpO2 back to 94% on 60%
--- NOTE | 2024-01-23 08:00 | XR_ITS ---
The [address] [address] Patient Name: LOLIS QUINONES MRN: [id number] date: 1985 Sex: M Assigned Patient Location: ICU Current Patient Location: ICU Accession/Order Number: [id number] Exam Date: 01/23/2024 08:20 Report Date: 01/23/2024 08:50 At the request of: HAROLDO ORTIZ Procedure: XR chest 1V EXAM: Portable chest REASON FOR EXAM: Pneumonia with acute hypoxic respiratory failure. TECHNIQUE: A portable frontal view of the chest was obtained. COMPARISON: 01/22/2024. FINDINGS: The lungs are grossly stable in appearance. The tracheostomy tube is stable in position. The heart and mediastinum are stable in appearance. There is no mass or pathologic adenopathy. Osseous structures are normal. XR/XR chest 1V IMPRESSION: Overall stable exam. The appearance of lungs could be seen with bilateral pneumonia or with changes of congestive heart failure. Electronically authenticated by: NAVEEN NAVA Date: 01/23/2024 08:50
[2024-01-23] MEDS: SUCRALFATE 1 GM TABLET G-TUBE ×4 (08:03→22:36)
[2024-01-23] MEDS: SODIUM CHLORIDE 3% INHALATION 15 ML NEB 3 ML IH ×3 (08:08→21:47)
--- NOTE | 2024-01-23 08:12 | PM.PLPN ---
Progress Note: A&P Assessment and Plan (1) Acute and chronic respiratory failure with hypoxia: Assessment and Plan: 1. Udtmg-ib-hkiumvg hypoxic respiratory failure. 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 Acute is secondary to severe sepsis +/- HCAP given change in secretions. ?Bronchoscopy yesterday (01/22/2024) cleared mucus plugging, but he continues to have episodes of copious secretions occasionally causing acute desaturations. Ordering CXR to evaluate for any new abnormalities to suggest further mucus plugging. 2. Pneumonia secondary to Klebsiella pneumoniae, Pseudomonas aeruginosa, and Streptococcus agalactiae. Sensitivities pending.? With light growth of Pseudomonas & Streptococcus, unclear if colonization vs. active infection.? Bronchoscopy yesterday (01/22/2024) noted scattered mucus plugging.? BAL of RML was obtained ? hopefully these deeper cultures can better determine the true infective agent(s).? He had fever yesterday afternoon (101.2?F ~ 14:30-15:19), but that could be secondary to the bronchoscopy; last recorded temperature was 97.7?F last evening @ 20:10.? Given presence of Pseudomonas, added Levaquin on top of Zosyn for double coverage; remains on vancomycin ? though majority of bacteria are Gram negative, will await to see Steptococcus sensitivities to determine if we can discontinue that or not. 3. UTI, secondary to Morganella morganii. Klebsiella pneumoniae present, but with 30,000 - 40,000 CFU/mL, question colonization.? However, Klebsiella pneumoniae is also noted in the sputum, so question colonization there or translocation.? Sensitivities are pending ? depending on the patterns, can tell if same or different strain.? History of Klebsiella pneumoniae and Acinetobacter baumanii UTI 11/20/2013. ?Will also compare sensitivities with prior Klebsiella urine culture. 4. Severe sepsis seondary to #2 & #3. Procalcitonin trending down, but WBC up slightly to 13.6.? There can be a transient increase in WBC post-bronchoscopy.? Continue to monitor WBC, temps. 5. GI bleed. Patient had large stool this AM when I was in the room.? It was pasty and brown ? I did not see any gross hematochezia. 6. Normocytic anemia. Hb currently @ 8.5g/dL.? ?GI bleed, dilutional, etc.? Transfuse if Hb <7. 7. 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 Remains on Eliquis for now.? Communicates with blinks and eye movements.? Status unchanged. Subjective Subjective Interval history: Case discussed with RN & RT. Bronchoscopy was performed yesterday at bedside. Scattered mucus plugs were removed. BAL obtained from [facility] with cultures pending. UA returned positive for Morganella morganii & Klebsiella pneumoniae, though Klebsiella was only 30,000 - 40,000 CFU/mL. Sputum returned positive for Klebsiella pneumoniae, Pseudomonas aeruginosa, and Streptococcus agalactiae - the former was moderate growth and latter two were light growth. Patient had fever of 101.2'F post-bronchoscopy. Though the fever could be associated with the bronchoscopy, Levaquin was added on top of Zosyn for double coverage of Pseudomonas. He continues to have occasional episodes of transient desaturations. FiO2 required occasional increases. He was okay this AM @ 06:50 when I saw him, had large stool without evidence of mason blood/hematochezia. Had another desaturation episode ~07:50. RT & RN continue to suction thick secretions out at times. Overall though, he is less rhonchorous on exam. Exam Constitutional Vital Signs, click to edit/add: Last Vital Signs Temp 97.7 F 01/22/24 20:10 Pulse 109 H 01/23/24 07:16 Resp 20 01/23/24 07:15 BP 139/75 01/23/24 07:15 Pulse Ox 90 L 01/23/24 07:16 O2 Del Method Mechanical Ventilator 01/23/24 08:10 O2 Flow Rate 14 01/22/24 07:00 FiO2 65 01/23/24 07:15 Documenting provider has reviewed patient's vital signs: yes General appearance: patient mechanically ventilated Other: Had large bowel movement, being cleaned by nurses. HENMT Common normals: normocephalic Eye Other: Able to blink and move eyes Neck & C-Spine General: trachea midline and tracheostomy present (No exudate or bleeding - site appears clean); no tracheal deviation Chest Common normals: inspection of chest normal Respiratory Other: Slightly more air movement than yesterday with decreased rhonchi. RR ~24 (over vent settings) Cardio Other: Continues to have sinus tachycardia - regular rhythm; rate 100-110's. GI Inspection: normal to inspection and GI tube present Bladder/kidney exam: catheter in place Extremity General: edema (1+ BLE) Neuro Other: Limited movement, confined mainly to eyes and a few other facial gestures - no change Psych Attitude: calm
[2024-01-23] MEDS: PROSTAT 15 GM PROTEIN/100 CAL 30 ML LIQUID PACKET PO ×2 (09:19→21:18)
[2024-01-23] MEDS: OMEPRAZOLE 40 MG CAPSULE.DR G-TUBE (09:20)
[2024-01-23] MEDS: APIXABAN 5 MG TABLET G-TUBE ×2 (09:20→21:18)
[2024-01-23] MEDS: GUAIFENESIN 200 MG/10 ML LIQUID G-TUBE ×2 (09:20→21:18)
[2024-01-23] MEDS: BUSPIRONE HCL 10 MG TABLET 5 MG G-TUBE ×2 (09:20→21:18)
[2024-01-23] MEDS: CETIRIZINE HCL 10 MG TABLET FEED TUBE (09:21)
[2024-01-23] MEDS: SENNOSIDES 8.6 MG TABLET 8.59999999999999964 MG PO (09:21)
[2024-01-23] MEDS: NOREPINEPHRINE BITARTRATE/D5W 4 MG/250 ML PREMIX 26.25 MG IV (09:22)
[2024-01-23] MEDS: ESCITALOPRAM 10 MG TABLET G-TUBE (09:23)
[2024-01-23] MEDS: SODIUM HYPOCHLORITE HALF STRENGTH (0.25%) 473 ML BOTTLE 30 ML TOPICAL (09:24)
--- NOTE | 2024-01-23 10:00 | PC.NURSE ---
O2 placed at 100%, Trach care performed, inner cannula cleaned using sterile kit and replaced, cleaned around trach with sterile water, new dressing placed. Patient tolerated well.
--- NOTE | 2024-01-23 10:23 | PM.PN ---
Progress Note: Subjective Subjective Interval history: Continues to have thick secretions. Patient had bronchoscopy yesterday and removed mucus plugs. Urine culture showed UTI due to K. pneumonia and M. morganii both sensitive to zosyn. Sputum with k. pneumonia and same sensitivity as urine. Sputum also growing Pseudomonas and group B strep with pending sensitivity. Pulmonology added levaquin. Afebrile. Continues to have increased oxygen requirements. C/o SOB but no pain. Exam Constitutional Vital Signs, click to edit/add: Last Vital Signs Temp 97.7 F 01/22/24 20:10 Pulse 93 H 01/23/24 08:11 Resp 23 H 01/23/24 08:11 BP 139/75 01/23/24 07:15 Pulse Ox 90 L 01/23/24 07:16 O2 Del Method Mechanical Ventilator 01/23/24 08:10 O2 Flow Rate 14 01/22/24 07:00 FiO2 65 01/23/24 08:11 Documenting provider has reviewed patient's vital signs: yes Common normals: no apparent distress and alert HENKY Common normals: normocephalic Eye Common normals: PERRL and EOMs intact bilaterally Respiratory Common normals: normal respiratory effort Auscultation: rhonchi Cardio Common normals: regular rate, regular rhythm, no gallops, no murmurs and no rub GI Common normals: Normal to inspection, nondistended, normoactive bowel sounds present and non-tender Extremity General: edema (1+ bipedal edema) Progress Note: Objective Labs Labs: Short CBC 01/23/24 Range/Units 03:54 WBC 13.6 H (4.0-11.0) 10^3/uL Hgb 8.5 L (14.0-18.0) g/dL Hct 30.7 L (42.0-54.0) % Plt Count 293 (150-450) 10^3/uL BMP 01/23/24 03:54 Sodium 140 Potassium 3.6 Chloride 104 Carbon Dioxide 32.1 H BUN 11.0 Creatinine 0.69 L Glucose 124 H Calcium 8.7 Liver Function 01/23/24 Range/Units 03:54 Total Bilirubin 0.3 (0.2-1.0) mg/dL AST 17 (15-37) U/L ALT 16 (16-63) U/L Alkaline Phosphatase 106 (46-116) U/L Albumin 2.0 L (3.4-5.0) g/dL Progress Note: A&P Assessment and Plan (1) HCAP (healthcare-associated pneumonia): (2) UTI (urinary tract infection) due to urinary indwelling Iverson catheter: Qualifiers: Encounter type: initial encounter Indwelling urinary catheter type: indwelling urethral catheter Qualified Code(s): T83.511A - Infection and inflammatory reaction due to indwelling urethral catheter, initial encounter; N39.0 - Urinary tract infection, site not specified (3) Acute and chronic respiratory failure with hypoxia: (4) Sepsis: Qualifiers: Sepsis type: sepsis due to unspecified organism Sepsis acute organ dysfunction status: with acute organ dysfunction Severe sepsis acute organ dysfunction type: acute respiratory failure Acute respiratory failure type: with hypoxia Severe sepsis shock status: without septic shock Qualified Code(s): A41.9 - Sepsis, unspecified organism; R65.20 - Severe sepsis without septic shock; J96.01 - Acute respiratory failure with hypoxia (5) Anemia: Qualifiers: Anemia type: other cause Other causes of anemia: nutritional, protein deficiency Qualified Code(s): D53.0 - Protein deficiency anemia (6) Decubital ulcer: (7) Moderate protein-calorie malnutrition: (8) HTN (hypertension): Qualifiers: Hypertension type: primary hypertension Qualified Code(s): I10 - Essential (primary) hypertension (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 Pulmonology following. Await sensitivity of sputum and can adjust antibiotics. Occult blood negative and no evidence of GI bleed. Will monitor. Monitor labs and vitals. Urinary Catheter Management Urinary Catheter Management Urethral: Cath placed during this visit: yes Urethral indwelling: Yes Reason for continuing: prolonged immobilization Insertion date: 01/20/24 Insertion time: 19:13
--- NOTE | 2024-01-23 10:29 | CM.NOTE ---
Rounds made with Dr. Solomon. Dr. Solomon discussed plan of care, bronchoscopy results, urine and sputum culture results with patient. No plan for discharge today.
--- NOTE | 2024-01-23 10:29 | PT.DAILY ---
Physical Therapy Daily Note PT Daily Note/Assess Start: 01/22/24 11:43 Freq: Status: Active Protocol: Document 01/23/24 10:06 TROY (Rec: 01/23/24 10:27 TROY [id number]) Physical Therapy Daily Note/Assessment Time In/Time Out Time In 09:30 Time Out 10:05 Pain In Pain N/A Pain Out Pain N/A Subjective Subjective Pt supine upon arrival. His dad is present. Pt able to consent to PROM by blinking and looking down for YES. Therapeutic Exercise Time Therapeutic Exercise Minutes (minutes) 25 Therapeutic Exercise Units 2 Therapeutic Exercise Treatment Therapeutic Exercise Treatment PROM performed to bilat LE and UE on this date. In a favorable position to stretch both LEs on this date. Has notable tone/spasticity in R>L LE. CROM rotation and lateral flexion performs 10x ea. Therapeutic Activity Time Therapeutic Activity Minutes (minutes) 5 Therapeutic Activity Units 0 Therapeutic Activity Treatment Bed Mobility Ability Total Assist,2 Person Assist Therapeutic Activity Comments Assisted nursing to reposition pt in bed from laying on L side to R side with total assist of two to scoot him up in bed and to reposition pillows to avoid pressure sores. Manual Therapy Time Manual Therapy Minutes (minutes) 10 Manual Therapy Units 1 Joint Mobilization Joint Mobilization *MANUAL THERAPY* Retrograde massage to bilat hands and wrists with lotion to reduce edema- 5 min ea. Total Physical Therapy Time Total Therapy Minutes 40 Total Physical Therapy Units 3 Summary Daily Note Summary Min discomfort noticed with repositioning. R LE more spastic vs L with PROM stretches. Edit Result 01/23/24 10:06 TROY (Rec: 01/23/24 10:28 TROY [id number]) Physical Therapy Daily Note/Assessment Time In/Time Out Time In 09:20
--- NOTE | 2024-01-23 10:39 | SWNOTE1 ---
No discharge to pt today. DAMEON sent updated pulmonology notes, physician notes, labs, med list, culture results, vitals, respiratory notes, and diagnostic imaging to Viky at [facility].
--- NOTE | 2024-01-23 10:41 | SWNOTE1 ---
Also sent PT note from today and nursing notes.
[2024-01-23] MEDS: JEVITY 1.5 CAL 237 ML LIQUID G-TUBE ×3 (11:35→21:19)
[2024-01-23] MEDS: ACETAMINOPHEN 325 MG TABLET 650 MG G-TUBE (14:14)
[2024-01-23 14:17] LABS: Vancomycin Trough 28.7 ug/mL (5.0-20.0)
--- NOTE | 2024-01-23 15:15 | RESP.RT ---
Addendum entered by Sadaf Canales, LEGAL SUPPORT ASSISTANT 01/23/24 15:18: post tx SpO2 dropped to 88%. Sx small amount thick cream/yellow and SpO2 recovered Original Note: No Sx, as nurse just sx prior to tx
[2024-01-23] MEDS: VANCOMYCIN HCL 1,250 MG in 0.9 % SODIUM CHLORIDE 250 ML 166.667000000000002 MG IV (18:06)
[2024-01-23] MEDS: NOREPINEPHRINE BITARTRATE/D5W 4 MG/250 ML PREMIX 18.75 MG IV (19:45)
[2024-01-23] MEDS: LEVOFLOXACIN IN DEXTROSE 5 % 750 MG/150 ML IV.SOLN 100 MG IV (21:18)
[2024-01-24] VITALS (90 sets, daily range): BP systolic 96–137; BP diastolic 49–78; PULSE 93–116; TEMP 37–37.6; O2SAT 90–98
[2024-01-24] MEDS: PIPERACILLIN SODIUM/TAZOBACTAM 3.375 GM in 0.9 % SODIUM CHLORIDE 50 ML IV ×2 (01:35→08:38)
[2024-01-24] MEDS: JEVITY 1.5 CAL 237 ML LIQUID G-TUBE ×4 (01:36→18:17)
[2024-01-24] MEDS: WATER 125 EACH FEED TUBE ×6 (04:14→22:04)
[2024-01-24] MEDS: GUAIFENESIN 200 MG/10 ML LIQUID G-TUBE ×3 (04:14→18:16)
[2024-01-24 04:42] LABS: Hematocrit 26.1 % (42.0-54.0); Hemoglobin 7.2 g/dL (14.0-18.0); Mean Corpuscular HGB Conc 27.6 g/dL (29.9-35.2); Platelet Count 212 10^3/uL (150-450)
[2024-01-24 05:01] LABS: Alanine Aminotransferase 13 U/L (16-63); Albumin Globulin Ratio 0.5; Albumin Level 1.7 g/dL (3.4-5.0); Alkaline Phosphatase 96 U/L (46-116); Anion Gap 4.5; Aspartate Amino Transferase 11 U/L (15-37); Bilirubin Total 0.3 mg/dL (0.2-1.0); Calcium 8.2 mg/dL (8.5-10.1); Carbon Dioxide 34.9 mmol/L (21.0-32.0); Chloride 106 mmol/L (98-107); Estimated GFR (African America >60 (>=60); Estimated GFR (Non-African Ame >60 (>=60); Globulin 3.6 g/dL; Glucose 112 mg/dL (74-106); Potassium 3.4 mmol/L (3.5-5.1); Sodium 142 mmol/L (136-145); Total Protein 5.3 g/dL (6.4-8.2)
[2024-01-24 05:35] LABS: Band Neutrophils Absolute 0.2 10^3/uL (0.0-0.3); Basophils Abs Manual 0.09 10^3/uL (0.00-0.10); Eosinophils Absolute Manual 0.36 10^3/uL (0.00-0.70); Lymphocytes Absolute Manual 1.89 10^3/uL (1.20-3.80); Monocytes Absolute Manual 0.18 10^3/uL (0.30-0.80)
[2024-01-24 05:36] LABS: Hypochromasia 1+
[2024-01-24 05:57] LABS: PROCALCITONIN 0.38 ng/mL (0.00-0.50)
[2024-01-24] MEDS: LACTATED RINGER'S SOLUTION 1,000 ML 125 ML IV ×2 (06:11→20:30)
[2024-01-24] MEDS: GABAPENTIN 300 MG CAPSULE PO ×3 (06:11→21:48)
[2024-01-24] MEDS: BACLOFEN 10 MG TABLET 5 MG FEED TUBE ×3 (06:11→21:48)
[2024-01-24] MEDS: VANCOMYCIN HCL 1,250 MG in 0.9 % SODIUM CHLORIDE 250 ML 166 MG IV (06:11)
[2024-01-24] MEDS: OXYCODONE HCL 5 MG TABLET 10 MG PO ×4 (06:11→21:47)
[2024-01-24] MEDS: SUCRALFATE 1 GM TABLET G-TUBE ×4 (07:46→21:48)
[2024-01-24] MEDS: OMEPRAZOLE 40 MG CAPSULE.DR G-TUBE (08:36)
[2024-01-24] MEDS: PROSTAT 15 GM PROTEIN/100 CAL 30 ML LIQUID PACKET PO ×2 (08:36→21:47)
[2024-01-24] MEDS: APIXABAN 5 MG TABLET G-TUBE ×2 (08:37→21:48)
[2024-01-24] MEDS: CETIRIZINE HCL 10 MG TABLET FEED TUBE (08:37)
[2024-01-24] MEDS: ESCITALOPRAM 10 MG TABLET G-TUBE (08:37)
[2024-01-24] MEDS: BUSPIRONE HCL 10 MG TABLET 5 MG G-TUBE ×2 (08:37→21:48)
[2024-01-24] MEDS: SENNOSIDES 8.6 MG TABLET 8.59999999999999964 MG PO (08:37)
[2024-01-24] MEDS: POLYETHYLENE GLYCOL 3350 17 GM POWDER PACKET G-TUBE (08:37)
[2024-01-24] MEDS: SODIUM CHLORIDE 3% INHALATION 15 ML NEB 3 ML IH ×3 (10:03→19:56)
[2024-01-24] MEDS: LEVALBUTEROL HCL 0.63 MG/3 ML VIAL.NEB 0.630000000000000004 MG IH ×3 (10:03→19:56)
[2024-01-24] MEDS: IPRATROPIUM BROMIDE 0.5 MG/2.5 ML VIAL.NEB IH ×3 (10:03→19:56)
[2024-01-24] MEDS: ACETAMINOPHEN 500 MG TABLET 1000 MG PO (10:18)
[2024-01-24] MEDS: DIPHENHYDRAMINE HCL 50 MG/ML (1ML) VIAL 25 MG IV (10:19)
[2024-01-24] MEDS: SODIUM HYPOCHLORITE HALF STRENGTH (0.25%) 473 ML BOTTLE 30 ML TOPICAL (10:20)
--- NOTE | 2024-01-24 10:50 | PT.DAILY ---
Physical Therapy Daily Note PT Daily Note/Assess Start: 01/22/24 11:43 Freq: Status: Active Protocol: Document 01/24/24 10:43 TROY (Rec: 01/24/24 10:50 TROY [id number]) Physical Therapy Daily Note/Assessment Time In/Time Out Time In 09:45 Time Out 10:40 Pain In Pain N/A Pain Out Pain N/A Subjective Subjective Pt supine upon arrival. Nursing present. Pt gives consents for session by blinking twice and looking down for YES. Therapeutic Exercise Time Therapeutic Exercise Minutes (minutes) 25 Therapeutic Exercise Units 2 Therapeutic Exercise Treatment Therapeutic Exercise Treatment PROM performed to bilat LE and UE on this date. Pt is in favorable position for stretches today - supine. Some facial grimmis with hip abd on L side initially today but after the first rep pt is not as apprehensive and hip does loosen up for stretches. Pt has increased bilat foot edema today R > L. Minimal range with bilat ankles achieved today. No new sores on feet or legs. CROM rotation and lateral flexion complete 10x ea. *use caution with UE stretches as dad reports pt having multiple elbow dislocations throughout his life* Manual Therapy Time Manual Therapy Minutes (minutes) 20 Manual Therapy Units 1 Joint Mobilization Joint Mobilization *MANUAL THERAPY* retro grade massage with lotion to bilat hands and feet/lower legs on this date for 5 min ea to reduce edema and flush fluid out of extremities. Boots donned after massage. Nursing present for blood transfusion at this time. Total Physical Therapy Time Total Therapy Minutes 45 Total Physical Therapy Units 3 Summary Daily Note Summary Increased edema noticed in R foot on this date - retrograde massage applied. Min discomfort with first rep of hip abd on L but subsides with further stretches. No other signs of discomfort or pain throughout session.
--- NOTE | 2024-01-24 11:12 | CM.NOTE ---
Rounds made with Dr. Solomon. Plan for PRBCs explained to Carlos d/t low hemoglobin. Understands with blinking eyes. No plan for discharge today.
--- NOTE | 2024-01-24 11:26 | PM.PN ---
Progress Note: Subjective Subjective Interval history: Patient improved this am. WBC improved and afebrile. Secretions starting to slow and not as thick. Sputum culture shows pneumonia due to Pseudomonas, K. pneumonia, P. mirabilis, and group B strep. Currently on vanco, levaquin, and zosyn. Vitals stable. Hgb down to 7.5 this am but no active bleeding. Denies pain. Exam Constitutional Vital Signs, click to edit/add: Last Vital Signs Temp 98.6 F 01/24/24 10:55 Pulse 102 H 01/24/24 10:55 Resp 20 01/24/24 10:55 BP 114/67 01/24/24 10:55 Pulse Ox 95 01/24/24 10:55 O2 Del Method Mechanical Ventilator 01/24/24 10:55 O2 Flow Rate 14 01/22/24 07:00 FiO2 60 01/24/24 10:05 Documenting provider has reviewed patient's vital signs: yes Common normals: no apparent distress and alert HENMT Common normals: normocephalic Eye Common normals: PERRL and EOMs intact bilaterally Respiratory Auscultation: rhonchi; no wheezes Cardio Common normals: regular rate, regular rhythm, no gallops, no murmurs and no rub GI Common normals: Normal to inspection, nondistended, normoactive bowel sounds present and non-tender Extremity General: edema (1+ bipedal edema) Progress Note: Objective Labs Labs: Short CBC 01/24/24 Range/Units 04:00 WBC 9.0 (4.0-11.0) 10^3/uL Hgb 7.2 L (14.0-18.0) g/dL Hct 26.1 L (42.0-54.0) % Plt Count 212 (150-450) 10^3/uL BMP 01/24/24 04:00 Sodium 142 Potassium 3.4 L Chloride 106 Carbon Dioxide 34.9 H BUN 9.0 Creatinine 0.69 L Glucose 112 H Calcium 8.2 L Liver Function 01/24/24 Range/Units 04:00 Total Bilirubin 0.3 (0.2-1.0) mg/dL AST 11 L (15-37) U/L ALT 13 L (16-63) U/L Alkaline Phosphatase 96 (46-116) U/L Albumin 1.7 L (3.4-5.0) g/dL Progress Note: A&P Assessment and Plan (1) HCAP (healthcare-associated pneumonia): (2) UTI (urinary tract infection) due to urinary indwelling Iverson catheter: Qualifiers: Encounter type: initial encounter Indwelling urinary catheter type: indwelling urethral catheter Qualified Code(s): T83.511A - Infection and inflammatory reaction due to indwelling urethral catheter, initial encounter; N39.0 - Urinary tract infection, site not specified (3) Acute and chronic respiratory failure with hypoxia: (4) Sepsis: Qualifiers: Sepsis type: sepsis due to unspecified organism Sepsis acute organ dysfunction status: with acute organ dysfunction Severe sepsis acute organ dysfunction type: acute respiratory failure Acute respiratory failure type: with hypoxia Severe sepsis shock status: without septic shock Qualified Code(s): A41.9 - Sepsis, unspecified organism; R65.20 - Severe sepsis without septic shock; J96.01 - Acute respiratory failure with hypoxia (5) Anemia: Qualifiers: Anemia type: other cause Other causes of anemia: nutritional, protein deficiency Qualified Code(s): D53.0 - Protein deficiency anemia (6) Decubital ulcer: (7) Moderate protein-calorie malnutrition: (8) HTN (hypertension): Qualifiers: Hypertension type: primary hypertension Qualified Code(s): I10 - Essential (primary) hypertension (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 Sensitivity returned on sputum. Will stop vanco and zosyn and continue levaquin. Add rocephin and combination will cover organisms in sputum and urine. Continue to wean oxygen as tolerated. Suction PRN. Monitor vitals. Urinary Catheter Management Urinary Catheter Management Urethral: Cath placed during this visit: yes Urethral indwelling: Yes Reason for continuing: prolonged immobilization Insertion date: 01/20/24 Insertion time: 19:13
--- NOTE | 2024-01-24 11:53 | PC.NURSE ---
Trach care done per policy
[2024-01-24] MEDS: FUROSEMIDE 20 MG/2 ML VIAL IVP (13:11)
[2024-01-24] MEDS: IMIPENEM/CILASTATIN SODIUM 1,000 MG in 0.9 % SODIUM CHLORIDE 100 ML 100 MG IV ×2 (15:29→21:55)
[2024-01-24 16:48] LABS: Hematocrit 31.6 % (42.0-54.0); Hemoglobin 9.2 g/dL (14.0-18.0); Mean Corpuscular HGB Conc 29.1 g/dL (29.9-35.2); Mean Corpuscular Hemoglobin 25.3 pg (25.9-34.0); Mean Corpuscular Volume 86.8 fL (80.0-94.0); Mean Platelet Volume 11.5 fL (9.5-13.5); Platelet Count 227 10^3/uL (150-450); Red Blood Count 3.64 10^6/uL (4.70-6.10); Red Cell Distribution Width 18.7 % (11.0-15.0); White Blood Count 9.4 10^3/uL (4.0-11.0)
[2024-01-24] MEDS: LEVOFLOXACIN IN DEXTROSE 5 % 750 MG/150 ML IV.SOLN 100 MG IV (21:50)
[2024-01-24 23:33] LABS: Glucometer 94 mg/dL (74-106)
[2024-01-25] VITALS (27 sets, daily range): BP systolic 101–122; BP diastolic 53–65; PULSE 82–98; TEMP 37.4; O2SAT 92–919
[2024-01-25] MEDS: JEVITY 1.5 CAL 237 ML LIQUID G-TUBE ×3 (01:08→10:25)
[2024-01-25] MEDS: GUAIFENESIN 200 MG/10 ML LIQUID G-TUBE ×3 (01:08→12:14)
[2024-01-25] MEDS: ACETAMINOPHEN 325 MG TABLET 650 MG G-TUBE ×2 (01:08→09:35)
[2024-01-25 05:31] LABS: Basophils Percent Auto 0.5 % (0.2-2.0); Eosinophils Absolute Auto 0.4 10^3/uL (0.0-0.7); Eosinophils Percent Auto 4.4 % (0.9-7.0); Hematocrit 30.3 % (42.0-54.0); Hemoglobin 8.8 g/dL (14.0-18.0); Immature Granulocytes Abs Auto 0.02 10^3/uL (0.00-0.03); Immature Granulocytes Pct Auto 0.2 % (0.0-0.5); Lymphocytes Absolute Auto 1.4 10^3/uL (1.2-3.8); Lymphocytes Percent Auto 16.1 % (20.5-60.0); Mean Corpuscular Hemoglobin 25.1 pg (25.9-34.0); Mean Corpuscular Volume 86.3 fL (80.0-94.0); Mean Platelet Volume 11.6 fL (9.5-13.5); Monocytes Absolute Auto 0.5 10^3/uL (0.3-0.8); Monocytes Percent Auto 5.5 % (1.7-12.0); Neutrophils Absolute Auto 6.4 10^3/uL (1.4-6.5); Neutrophils Percent Auto 73.3 % (43.0-75.0); Platelet Count 222 10^3/uL (150-450); Red Blood Count 3.51 10^6/uL (4.70-6.10); White Blood Count 8.7 10^3/uL (4.0-11.0)
[2024-01-25 05:44] LABS: Alanine Aminotransferase 12 U/L (16-63); Albumin Globulin Ratio 0.4; Albumin Level 1.7 g/dL (3.4-5.0); Alkaline Phosphatase 110 U/L (46-116); Anion Gap 2.7; Aspartate Amino Transferase 11 U/L (15-37); Bilirubin Total 0.3 mg/dL (0.2-1.0); Calcium 8.5 mg/dL (8.5-10.1); Carbon Dioxide 37.7 mmol/L (21.0-32.0); Chloride 106 mmol/L (98-107); Estimated GFR (African America >60 (>=60); Estimated GFR (Non-African Ame >60 (>=60); Globulin 3.9 g/dL; Glucose 122 mg/dL (74-106); Potassium 3.4 mmol/L (3.5-5.1); Sodium 143 mmol/L (136-145); Total Protein 5.6 g/dL (6.4-8.2)
[2024-01-25] MEDS: BACLOFEN 10 MG TABLET 5 MG FEED TUBE (06:04)
[2024-01-25] MEDS: OXYCODONE HCL 5 MG TABLET 10 MG PO ×2 (06:04→12:14)
[2024-01-25] MEDS: GABAPENTIN 300 MG CAPSULE PO (06:04)
[2024-01-25] MEDS: LACTATED RINGER'S SOLUTION 1,000 ML 125 ML IV (06:05)
[2024-01-25] MEDS: IMIPENEM/CILASTATIN SODIUM 1,000 MG in 0.9 % SODIUM CHLORIDE 100 ML 100 MG IV ×2 (06:06→10:24)
[2024-01-25] MEDS: WATER 125 EACH FEED TUBE ×3 (06:07→10:24)
--- NOTE | 2024-01-25 08:31 | PM.PN ---
Progress Note: Subjective Subjective Interval history: Patient improved this am. WBC improved and afebrile. Secretions starting to slow and not as thick. Sputum culture shows pneumonia due to Pseudomonas, K. pneumonia, P. mirabilis, and group B strep. Currently on vanco, levaquin, and zosyn. Vitals stable. Hgb down to 7.5 this am but no active bleeding. Denies pain. Exam Constitutional Vital Signs, click to edit/add: Last Vital Signs Temp 99.3 F 01/25/24 01:08 Pulse 94 H 01/25/24 06:00 Resp 17 01/25/24 04:15 BP 101/55 01/25/24 00:00 Pulse Ox 93 L 01/25/24 06:00 O2 Del Method Mechanical Ventilator 01/25/24 04:15 O2 Flow Rate 14 01/22/24 07:00 FiO2 60 01/25/24 04:15 Progress Note: Objective Labs Labs: Short CBC 01/24/24 01/25/24 Range/Units 16:30 04:30 WBC 9.4 8.7 (4.0-11.0) 10^3/uL Hgb 9.2 L 8.8 L (14.0-18.0) g/dL Hct 31.6 L 30.3 L (42.0-54.0) % Plt Count 227 222 (150-450) 10^3/uL BMP 01/25/24 04:30 Sodium 143 Potassium 3.4 L Chloride 106 Carbon Dioxide 37.7 H BUN 9.0 Creatinine 0.69 L Glucose 122 H Calcium 8.5 Liver Function 01/25/24 Range/Units 04:30 Total Bilirubin 0.3 (0.2-1.0) mg/dL AST 11 L (15-37) U/L ALT 12 L (16-63) U/L Alkaline Phosphatase 110 (46-116) U/L Albumin 1.7 L (3.4-5.0) g/dL Progress Note: A&P Assessment and Plan (1) HCAP (healthcare-associated pneumonia): (2) UTI (urinary tract infection) due to urinary indwelling Iverson catheter: Qualifiers: Encounter type: initial encounter Indwelling urinary catheter type: indwelling urethral catheter Qualified Code(s): T83.511A - Infection and inflammatory reaction due to indwelling urethral catheter, initial encounter; N39.0 - Urinary tract infection, site not specified (3) Acute and chronic respiratory failure with hypoxia: (4) Sepsis: Qualifiers: Sepsis type: sepsis due to unspecified organism Sepsis acute organ dysfunction status: with acute organ dysfunction Severe sepsis acute organ dysfunction type: acute respiratory failure Acute respiratory failure type: with hypoxia Severe sepsis shock status: without septic shock Qualified Code(s): A41.9 - Sepsis, unspecified organism; R65.20 - Severe sepsis without septic shock; J96.01 - Acute respiratory failure with hypoxia (5) Anemia: Qualifiers: Anemia type: other cause Other causes of anemia: nutritional, protein deficiency Qualified Code(s): D53.0 - Protein deficiency anemia (6) Decubital ulcer: (7) Moderate protein-calorie malnutrition: (8) HTN (hypertension): Qualifiers: Hypertension type: primary hypertension Qualified Code(s): I10 - Essential (primary) hypertension (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
--- NOTE | 2024-01-25 09:18 | P.DS_ITS ---
DS: Providers Provider Date of admission: 01/20/24 19:52 Primary care physician: ALISA DELATORRE Consults: 01/21/24 Consult to Dietitian Routine Reason for consultation: NPO, Gastric tube feeds Consult to Wound Care Routine Consulting Provider: Ramírez Marion Reason for consultation: sacral decub 01/21/24 07:00 Consult to Pulmonology Routine Consulting Provider: Leonel Roe Reason for consultation: Trach/Vent management Has provider been notified: Yes 01/21/24 09:00 Occupational Therapy Eval and Treat Routine Reason for consultation: debility Physical Therapy Eval and Treat Routine Reason for consultation: Debility Has provider been notified: No DS: Diagnosis Discharge Diagnosis (1) HCAP (healthcare-associated pneumonia): (2) UTI (urinary tract infection) due to urinary indwelling Iverson catheter: Qualifiers: Encounter type: initial encounter Indwelling urinary catheter type: indwelling urethral catheter Qualified Code(s): T83.511A - Infection and inflammatory reaction due to indwelling urethral catheter, initial encounter; N39.0 - Urinary tract infection, site not specified (3) Acute and chronic respiratory failure with hypoxia: (4) Sepsis: Qualifiers: Acute respiratory failure type: with hypoxia Sepsis acute organ dysfunction status: with acute organ dysfunction Sepsis type: sepsis due to unspecified organism Severe sepsis acute organ dysfunction type: acute respiratory failure Severe sepsis shock status: without septic shock Qualified Code(s): A41.9 - Sepsis, unspecified organism; R65.20 - Severe sepsis without septic shock; J96.01 - Acute respiratory failure with hypoxia (5) Anemia: Qualifiers: Anemia type: other cause Other causes of anemia: nutritional, protein deficiency Qualified Code(s): D53.0 - Protein deficiency anemia (6) Decubital ulcer: (7) Moderate protein-calorie malnutrition: (8) HTN (hypertension): Qualifiers: Hypertension type: primary hypertension Qualified Code(s): I10 - Essential (primary) hypertension (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 Improving at the time of discharge. Sepsis: Due to the pneumonia and UTI. Check on blood cultures. Labs improving at the time of discharge. Anemia: Fairly stable at the time of discharge, Hemoccult pending Decubital ulcer: Long-term treatment Severe protein-calorie malnutrition: Tube feeding suggested on the day of dis charge HTN (hypertension): By history. 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 In ER patient found to have severe sepsis with septic shock. Given fluids for the fever, tachycardia, respiratory distress, leukocytosis. Levophed used initially to improve blood pressure. Has been off of Levophed for couple days now. White blood cell count continues to improve. He has a total of 4 different organisms between the sputum and urine culture. Klebsiella initially sensitive to Levaquin, repeat sputum from bronchoscopy showed Klebsiella resistant to levofloxacin. Will require imipenem for period of 10 more days. Will Levaquin to cover the rest of the organisms is found. Checking on his status for his baseline FiO2. Currently at 50%. If this is close to his baseline FiO2 at his long-term care facility, he will be transferred back to his long-term care facility in improving condition. Medications see list. Follow-up with his routine care providers at a long-term care facility. Status at Discharge Overall status at discharge: patient is not back to baseline Time Spent with Patient Time attestation: Total time spent providing and/or coordinating discharge services: Time spent: greater than 30 minutes Exam Constitutional Vital Signs, click to edit/add: Last Vital Signs Temp 99.3 F 01/25/24 01:08 Pulse 94 H 01/25/24 06:00 Resp 17 01/25/24 04:15 BP 101/55 01/25/24 00:00 Pulse Ox 93 L 01/25/24 06:00 O2 Del Method Mechanical Ventilator 01/25/24 04:15 O2 Flow Rate 14 01/22/24 07:00 FiO2 60 01/25/24 04:15 Documenting provider has reviewed patient's vital signs: yes Common normals: no apparent distress Exam limitations: no altered mental status (Answers questions by blinking) HENMN Common normals: normocephalic and head/scalp atraumatic Respiratory Common normals: normal respiratory effort (On ventilator) Effort & inspection: no respiratory distress Auscultation: diminished lung sounds Cardio Common normals: regular rate and regular rhythm Neuro Common normals: oriented x3 (Answer questions by blinking) DS: Data Data Completed and Pending Labs on day of discharge: Labs from last 24 hours 01/25/24 01/24/24 01/24/24 04:30 23:27 16:30 WBC 8.7 9.4 RBC 3.51 L 3.64 L Hgb 8.8 L 9.2 L Hct 30.3 L 31.6 L MCV 86.3 86.8 MCH 25.1 L 25.3 L MCHC 29.0 L 29.1 L RDW 19.0 H 18.7 H Plt Count 222 227 MPV 11.6 11.5 Neut % (Auto) 73.3 Lymph % (Auto) 16.1 L [place] % (Auto) 5.5 Eos % (Auto) 4.4 Baso % (Auto) 0.5 Neut # (Auto) 6.4 Lymph # (Auto) 1.4 [place] # (Auto) 0.5 Eos # (Auto) 0.4 Baso # (Auto) 0.0 Abs Immat Gran (auto) 0.02 Imm/Tot Granulo (auto) 0.2 Sodium 143 Potassium 3.4 L Chloride 106 Carbon Dioxide 37.7 H Anion Gap 2.7 BUN 9.0 Creatinine 0.69 L Est GFR ( Amer) >60 Est GFR (Non-Af Amer) >60 BUN/Creatinine Ratio 13.0 Glucose 122 H Calcium 8.5 Total Bilirubin 0.3 AST 11 L ALT 12 L Alkaline Phosphatase 110 Total Protein 5.6 L Albumin 1.7 L Globulin 3.9 Albumin/Globulin Ratio 0.4 POC Glucose 94 Blood Type Antibody Screen Crossmatch 01/24/24 08:50 WBC RBC Hgb Hct MCV MCH MCHC RDW Plt Count MPV Neut % (Auto) Lymph % (Auto) [place] % (Auto) Eos % (Auto) Baso % (Auto) Neut # (Auto) Lymph # (Auto) [place] # (Auto) Eos # (Auto) Baso # (Auto) Abs Immat Gran (auto) Imm/Tot Granulo (auto) Sodium Potassium Chloride Carbon Dioxide Anion Gap BUN Creatinine Est GFR ( Amer) Est GFR (Non-Af Amer) BUN/Creatinine Ratio Glucose Calcium Total Bilirubin AST ALT Alkaline Phosphatase Total Protein Albumin Globulin Albumin/Globulin Ratio POC Glucose Blood Type A Positive Antibody Screen Negative Crossmatch See Detail Preliminary micro results at discharge 01/21/24 10:50 Sputum Culture - Preliminary Sputum - Endotracheal Tube Aspirate Pseudomonas aeruginosa Klebsiella pneumoniae Strep agalactiae - (group b) Proteus mirabilis 01/22/24 12:35 Bronchoalveolar Lavage Culture - Preliminary Bronchial Washings Pseudomonas aeruginosa Klebsiella pneumoniae Proteus mirabilis 01/20/24 16:10 - Preliminary Blood NO GROWTH AT 36-48 HOURS. FINAL TO FOLLOW. 01/20/24 16:00 Blood Culture Result 1 - Preliminary Blood NO GROWTH AT 36-48 HOURS. FINAL TO FOLLOW. Discharge Plan Discharge Disposition: Xfer [facility] Condition: Good Discharge Medications: New Pro-Stat Sugar Free 15 gram- 100 kcal/30 mL Liquid In Packet 1 ea PO BID Qty: 2880 12RF ipratropium bromide 0.02 % Solution 0.5 mg inhalation Q2H PRN (Reason: Shortness Of Breath Or Wheezing) Qty: 150 12RF ipratropium bromide 0.02 % Solution 0.5 mg inhalation RTTID Qty: 150 11RF Jevity 1.5 Khurram 0.06 gram-1.5 kcal/mL Liquid 1 ea G-tube Q4H Qty: 9000 11RF Imipenem/Cilastatin Sodium [Primaxin 500 mg Vial] 1000 MG 0.9 % Sodium Chloride [Sodium Chloride 0.9% 100 ml] 100 ML 100 mls/hr IV Q6H Ordered By: Wilder Phelps MD Last Taken: 01/25/24 06:06 100 mls/hr levalbuterol HCl 0.63 mg/3 mL Solution For Nebulization 0.63 mg inhalation Q2H PRN (Reason: Shortness Of Breath Or Wheezing) Qty: 90 11RF levalbuterol HCl 0.63 mg/3 mL Solution For Nebulization 0.63 mg inhalation RTTID Qty: 90 7RF levofloxacin in D5W 750 mg/150 mL Piggyback 750 mg IV Q24H Qty: 3600 0RF sodium chloride 3 % Solution For Nebulization 3 ml inhalation RTTID Qty: 750 12RF Dakin's Solution 0.25 % Solution 30 ml topical QD Qty: 473 12RF potassium chloride 10 mEq Tablet,Er Particles/Crystals 20 meq G-tube BID Qty: 120 11RF Continued alprazolam 1 mg tablet 1 mg PO TID PRN (Reason: anxiety) Eliquis 5 mg tablet 5 mg PO Q12H baclofen 5 mg tablet 5 mg feeding tube Q8H escitalopram oxalate 10 mg tablet 10 mg feeding tube DAILY Rx Instructions: G-TUBE gabapentin 250 mg/5 mL solution 300 mg feeding tube TID metoprolol tartrate 25 mg tablet 25 mg feeding tube Q12H Patient Comments: HOLD FOR SBP < 100 HOLD FOR HR < 60 oxycodone 10 mg tablet 10 mg feeding tube Q6H acetaminophen [Pain Relief (acetaminophen)] 325 mg tablet 650 mg feeding tube Q4H PRN (Reason: fever or pain) Rx Instructions: GTUBE All Day Allergy (cetirizine) 10 mg capsule 10 mg PO DAILY polyethylene glycol 3350 [ClearLax] 17 gram/dose powder 17 g PO DAILY sennosides [Keena-jigar] 8.6 mg tablet 8.6 mg PO BID esomeprazole magnesium [address] for susp in packet 40 mg G-tube Q24H sucralfate 1 gram tablet 1 g feeding tube TID buspirone 5 mg tablet 5 mg feeding tube BID Rx Instructions: GTUBE melatonin 3 mg capsule 3 mg PO .QHS Rx Instructions: G-TUBE Artificial Tears (cmc) 1 % drops 1 drp ophthalmic (eye) Q6H Glucagon Emergency Kit (human) 1 mg recon soln 1 mg subcut PRN PRN (Reason: hypoglycemia) Rx Instructions: until target blood sugar attained Discontinued albuterol sulfate 2.5 mg /3 mL (0.083 %) solution for nebulization 2.5 mg inhalation Q4H PRN (Reason: shortness of breath or wheezing) albuterol sulfate 2.5 mg /3 mL (0.083 %) solution for nebulization 2.5 mg inhalation BID alprazolam [Xanax] 1 mg tablet 1 mg PO .QHS Print Language: Eritrean Forms: Portal Instructions
[2024-01-25] MEDS: POLYETHYLENE GLYCOL 3350 17 GM POWDER PACKET G-TUBE (09:35)
[2024-01-25] MEDS: SUCRALFATE 1 GM TABLET G-TUBE ×2 (09:35→12:14)
[2024-01-25] MEDS: ESCITALOPRAM 10 MG TABLET G-TUBE (09:35)
[2024-01-25] MEDS: POTASSIUM CHLORIDE 10 MEQ ER TABLET 20 MEQ G-TUBE (09:35)
[2024-01-25] MEDS: APIXABAN 5 MG TABLET G-TUBE (09:35)
[2024-01-25] MEDS: PROSTAT 15 GM PROTEIN/100 CAL 30 ML LIQUID PACKET PO (09:35)
[2024-01-25] MEDS: OMEPRAZOLE 40 MG CAPSULE.DR G-TUBE (09:35)
[2024-01-25] MEDS: CETIRIZINE HCL 10 MG TABLET FEED TUBE (09:35)
[2024-01-25] MEDS: ALPRAZOLAM 1 MG TABLET G-TUBE (09:35)
[2024-01-25] MEDS: SENNOSIDES 8.6 MG TABLET 8.59999999999999964 MG PO (09:35)
[2024-01-25] MEDS: BUSPIRONE HCL 10 MG TABLET 5 MG G-TUBE (09:35)
[2024-01-25] MEDS: LEVALBUTEROL HCL 0.63 MG/3 ML VIAL.NEB 0.630000000000000004 MG IH (09:36)
[2024-01-25] MEDS: SODIUM HYPOCHLORITE HALF STRENGTH (0.25%) 473 ML BOTTLE 30 ML TOPICAL (09:36)
[2024-01-25] MEDS: SODIUM CHLORIDE 3% INHALATION 15 ML NEB 3 ML IH (09:37)
[2024-01-25] MEDS: IPRATROPIUM BROMIDE 0.5 MG/2.5 ML VIAL.NEB IH (09:37)
--- NOTE | 2024-01-25 10:47 | PC.NURSE ---
patient is baseline non verbal but communicates through eye movements. Patient answering yes and no questions appropriately via eye movements.
--- NOTE | 2024-01-25 13:08 | PC.NURSE ---
report given to Nke[facility] at [facility]. All questions answered
== END 2024-01-25 13:19 | DRG 870 ==
LOC: ER 19:07 → ICU 19:56
PROVIDERS: Family Medicine; Internal Medicine; Registered Nurse; Admitting Provider Nurse Practitioner; Emergency Provider Emergency Medicine; PCP Internal Medicine; Visit Provider Family Medicine
DX: A41.9 Sepsis, unspecified organism (principal); L89.153 Pressure ulcer of sacral region, stage 3; G83.5 Locked-in state; J96.21 Acute and chronic respiratory failure with hypoxia; J15.0 Pneumonia due to Klebsiella pneumoniae; J15.1 Pneumonia due to Pseudomonas; J15.3 Pneumonia due to streptococcus, group B; T83.511A Infection and inflammatory reaction due to indwelling urethral catheter, initial encounter; T17.590A Other foreign object in bronchus causing asphyxiation, initial encounter; Z99.11 Dependence on respirator [ventilator] status; N39.0 Urinary tract infection, site not specified; E44.0 Moderate protein-calorie malnutrition; Z66 Do not resuscitate; W44.F9XA Other object of natural or organic material, entering into or through a natural orifice, initial encounter; R65.20 Severe sepsis without septic shock; Z87.820 Personal history of traumatic brain injury; K21.9 Gastro-esophageal reflux disease without esophagitis; F41.9 Anxiety disorder, unspecified; B96.4 Proteus (mirabilis) (morganii) as the cause of diseases classified elsewhere; D53.0 Protein deficiency anemia; I10 Essential (primary) hypertension; G40.909 Epilepsy, unspecified, not intractable, without status epilepticus; R10.9 Unspecified abdominal pain; I69.898 Other sequelae of other cerebrovascular disease; F32.A Depression, unspecified; Y95 Nosocomial condition; N31.9 Neuromuscular dysfunction of bladder, unspecified; Z93.1 Gastrostomy status; Z93.0 Tracheostomy status; I45.10 Unspecified right bundle-branch block; Z88.5 Allergy status to narcotic agent; Z79.01 Long term (current) use of anticoagulants; Z88.8 Allergy status to other drugs, medicaments and biological substances; Z79.899 Other long term (current) drug therapy; Z86.19 Personal history of other infectious and parasitic diseases; Z68.23 Body mass index [BMI] 23.0-23.9, adult; Z79.891 Long term (current) use of opiate analgesic
CPT/HCPCS: 36410; 36415; 36430; 36592; 36600; 51702; 71045; 74177; 80053; 80202; 81001; 82271; 82800; 82805; 82948; 83605; 83615; 83735; 83880; 84145; 84484; 85007; 85025; 85027; 85378; 85384; 85610; 85730; 86850; 86900; 86901; 87040; 87070; 87086; 87150; 87186; 87205; 93005; 94002; 94003; 94640; 94761; 96361; 96365; 96366; 96367; 96368; 96375; 96376; 97110; 97140; 97162; 99291; C1887; G0328; J3370; J3480; P9016; Q9967

== ENCOUNTER 2024-03-23 00:14 | Inpatient (IN) | payer OTHER, SELFPAY ==
[2024-03-23] VITALS (94 sets, daily range): BP systolic 93–145; BP diastolic 45–91; PULSE 61–133; TEMP 36.7–39.2; O2SAT 4–100; BMI 33.3; BMI 31.4
--- NOTE | 2024-03-23 00:21 | XR_ITS ---
[facility] [place] [id number] Patient Name: LOLIS QUINONES MRN: [id number] date: 1985 Sex: M Assigned Patient Location: ED.MAIN Current Patient Location: ED.MAIN Accession/Order Number: [id number] Exam Date: 03/23/2024 00:50 Report Date: 03/23/2024 02:59 At the request of: BROOKS CABA Procedure: XR chest 1V CLINICAL HISTORY: Short of breath COMPARISON: Most recent chest radiograph 01/23/2024 FINDINGS: Portable AP view of the chest obtained. Cardiomediastinal silhouette is markedly enlarged. Dense consolidation is present in the lung bases, right greater than left. Moderate left effusion. The patient has a tracheostomy. No acute bony abnormality. XR/XR chest 1V IMPRESSION: Marked cardiomegaly with dense bibasilar consolidation, right greater than left, and left-sided pleural effusion. Electronically authenticated by: DEIB PINA Date: 03/23/2024 02:59
--- NOTE | 2024-03-23 00:21 | ECG_ITS ---
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
--- NOTE | 2024-03-23 00:21 | ED.GENADUL1 ---
HPI HPI - General Adult General Chief complaint: Shortness of Breath/Dyspnea Stated complaint: OTHER Time Seen by Provider: 03/23/24 00:21 Source: family Limitations: physical limitation Limitations comment: Pt has trach History of Present Illness HPI narrative: This 39-year-old male was transferred from the [facility] where he currently resides for evaluation of copious secretions and hypoxia. We did not receive a usp report but according to EMS they were called because the patient was desaturating. Patient has a trach and PEG. They stated that they suctioned approximately 200 cc of secretions out of his mouth and from his trach. Upon arrival the patient is febrile, tachycardic with frothy sputum in his mouth. Respiratory therapy was called and he was suctioned and placed back on a ventilator. Additional history was obtained from the patient's mother. 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 Since that time he has had a trach and PEG. He was recently treated with antibiotics. He finished Levaquin on 03/15/24 and he finished Levaquin on 03/17/2024 for pneumonia. She states that for the past several days he has had marked secretions and every time they roll him the secretions are coming up. She states he also has a history of congestive heart failure. He also developed a back eye with subconjunctival hemorrhage to the right eye - his mom thinks this may be related to his excessive coughing. She is not aware of any episodes of aspiration. Pt is a Full Code Related Data Home Medications ?Medication ?Instructions ?Recorded ?Confirmed acetaminophen 325 mg tablet (Pain 650 mg feeding tube Q4H PRN fever 11/21/23 03/23/24 Relief (acetaminophen)) or pain alprazolam 1 mg tablet 1 mg PO TID PRN anxiety 11/21/23 03/23/24 apixaban 5 mg tablet (Eliquis) 5 mg PO Q12H 11/21/23 03/23/24 baclofen 5 mg tablet 5 mg feeding tube Q8H 11/21/23 03/23/24 cetirizine 10 mg capsule (All Day 10 mg PO DAILY 11/21/23 03/23/24 Allergy (cetirizine)) escitalopram oxalate 10 mg tablet 10 mg feeding tube DAILY 11/21/23 03/23/24 gabapentin 250 mg/5 mL oral 300 mg feeding tube TID 11/21/23 03/23/24 solution metoprolol tartrate 25 mg tablet 25 mg feeding tube Q12H 11/21/23 03/23/24 oxycodone 10 mg tablet 10 mg feeding tube Q6H 11/21/23 03/23/24 polyethylene glycol 3350 17 17 g PO DAILY 11/21/23 03/23/24 gram/dose oral powder (ClearLax) sennosides 8.6 mg tablet (Keena-jigar) 8.6 mg PO BID 11/21/23 03/23/24 buspirone 5 mg tablet 10 mg feeding tube BID 01/20/24 03/23/24 esomeprazole magnesium 40 mg 40 mg G-tube Q24H 01/20/24 03/23/24 granules delayed release for susp melatonin 3 mg capsule 3 mg PO .QHS 01/20/24 03/23/24 sucralfate 1 gram tablet 1 g feeding tube TID 01/20/24 03/23/24 carboxymethylcellulose sodium 1 % 1 drp ophthalmic (eye) Q6H 01/21/24 03/23/24 eye drops (Artificial Tears (carboxymethylcellulose)) glucagon 1 mg solution for 1 mg subcut PRN PRN hypoglycemia 01/21/24 03/23/24 injection (Glucagon Emergency Kit) cholecalciferol (vitamin D3) 25 1,000 unit feeding tube DAILY 03/23/24 03/23/24 mcg (1,000 unit) capsule ferrous sulfate 325 mg (65 mg 325 mg feeding tube DAILY 03/23/24 03/23/24 iron) tablet (Feosol) folic acid 1 mg tablet 1 mg feeding tube DAILY 03/23/24 03/23/24 food supplemt, lactose-reduced 300 ea feeding tube .Q4hour 03/23/24 03/23/24 0.05 gram-1.2 kcal/mL liquid for tube feed (Isosource HN) ipratropium 0.5 mg-albuterol 3 mg 3 ml inhalation Q8H 03/23/24 03/23/24 (2.5 mg base)/3 mL nebulization soln sodium chloride 3 % for 4 ml inhalation Q6H PRN secretions 03/23/24 03/23/24 nebulization Previous Rx's ?Medication ?Instructions ?Recorded amino acids-protein hydrolysate 15 1 ea PO BID #2,880 mL 01/25/24 gram-100 kcal/30 mL oral liquid pkt (Pro-Stat Sugar Free) potassium chloride 10 mEq 20 meq (2 x 10 mEq) G-tube BID 01/25/24 tablet,extended release(part/cryst) #120 tabs sodium hypochlorite 0.25 % 30 ml topical QD #473 mL 01/25/24 solution (Dakin's Solution) Allergies Allergy/AdvReac Type Severity Reaction Status Date / Time fentanyl Allergy Severe Anaphylaxis Verified 11/21/23 09:59 Calcium Channel Blocking Allergy Unknown Unknown Verified 11/21/23 07:36 Agents-Dih fluoxetine [From Prozac] Allergy Unknown Verified 11/21/23 07:36 Opioid HPI Opioid Management Most Recent Opioid Data: Last Pain Scale 5 01/25/24 13:00 Last ORT Total Score 2 01/20/24 20:19 Last ORT Risk Category Low Risk 01/20/24 20:19 Ur Phencyclidine Scrn Negative (NEGATIVE) 06/08/23 22:16 Review of Systems ROS Status of ROS 10 or more systems reviewed and unremarkable except as noted in history and below [facility] Medical History (Updated 03/23/24 @ 02:51 by Linda Del Toro MD) Moderate protein-calorie malnutrition ?E44.0 - Moderate protein-calorie malnutrition (ICD-10) HTN (hypertension) ?I10 - Essential (primary) hypertension (ICD-10) Decubital ulcer ?L89.90 - Pressure ulcer of unspecified site, unspecified stage (ICD-10) Anemia ?D64.9 - Anemia, unspecified (ICD-10) HCAP (healthcare-associated pneumonia) ?J18.9 - Pneumonia, unspecified organism (ICD-10) 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 ?G83.5 - 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 (ICD-10) CVA (cerebral vascular accident) ?I63.9 - Cerebral infarction, unspecified (ICD-10) Sepsis ?A41.9 - Sepsis, unspecified organism (ICD-10) Acute and chronic respiratory failure with hypoxia ?J96.21 - Acute and chronic respiratory failure with hypoxia (ICD-10) UTI (urinary tract infection) due to urinary indwelling Iverson catheter ?T83.511A - Infection and inflammatory reaction due to indwelling urethral catheter, initial encounter (ICD-10) ?N39.0 - Urinary tract infection, site not specified (ICD-10) GIB (gastrointestinal bleeding) ?K92.2 - Gastrointestinal hemorrhage, unspecified (ICD-10) Leukocytosis ?D72.829 - Elevated white blood cell count, unspecified (ICD-10) Abdominal pain ?R10.9 - Unspecified abdominal pain (ICD-10) Vomiting ?R11.10 - Vomiting, unspecified (ICD-10) Status epilepticus ?G40.901 - Epilepsy, unspecified, not intractable, with status epilepticus (ICD-10) Respiratory failure ?J96.90 - Respiratory failure, unspecified, unspecified whether with hypoxia or hypercapnia (ICD-10) Social History Highest level of school completed/degree received: Associate degree: occupational, technical, vocational program Gender Identity: male Exam Narrative Exam Narrative: Vital signs and Nursing Notes reviewed: Patient is febrile, tachycardic with a pulse in the 120s, blood pressure is stable at 145/91, he was noted to be hypoxic with pulse ox of 89% General: Awake, alert, answers questions by blinking his eyes, chronically ill-appearing male HEENT: Normocephalic atraumatic, right periorbital ecchymosis is noted, face is edematous, lips are chapped and tongue is partially sticking out of his mouth and appears dry Neck: Supple, tracheostomy in neck with copious secretions suctioned by respiratory therapy- secretions were sent for culture Chest: Lungs are coarse diffusely, no rales appreciated CVS: Regular rate and rhythm, tachycardic at 120 ABD: Obese, soft, PEG tube in mid abdomen Extremities: Lower extremities are in soft boots, pts knees are bent in the bed Skin: Clean, dry, no rashes Neuro: Chronically debilitated with tracheostomy and PEG tube Constitutional Vital Signs, click to edit/add: Last Vital Signs Temp 101.9 F H 03/23/24 00:21 Pulse 131 H 03/23/24 02:10 Resp 22 H 03/23/24 02:10 BP 103/69 03/23/24 01:25 Pulse Ox 98 03/23/24 02:10 O2 Del Method Mechanical Ventilator 03/23/24 01:59 O2 Flow Rate 80 03/23/24 01:10 FiO2 70 03/23/24 01:59 Course Vital Signs Vital signs: Vital Signs Temperature 101.9 F H 03/23/24 00:21 Pulse Rate 61 03/23/24 00:21 Respiratory Rate 24 H 03/23/24 00:21 Blood Pressure 140/82 03/23/24 00:21 Pulse Oximetry 89 L 03/23/24 00:21 Oxygen Delivery Method Trach Collar, Ambu Bag 03/23/24 00:21 Oxygen Delivery Flow Rate 15 03/23/24 00:21 Temperature 101.9 F H 03/23/24 00:21 Pulse Rate 131 H 03/23/24 02:10 Respiratory Rate 22 H 03/23/24 02:10 Blood Pressure 103/69 03/23/24 01:25 Pulse Oximetry 98 03/23/24 02:10 Oxygen Delivery Method Mechanical Ventilator 03/23/24 01:59 Oxygen Delivery Flow Rate 80 03/23/24 01:10 Fraction of Inspired Oxygen 70 03/23/24 01:59 Medical Decision Making MDM Narrative Medical decision making narrative: This 39-year-old male who had a stroke in 2022 and is currently residing in an extended care facility is transferred for evaluation of copious secretions with fever and recent cough. He was recently treated for pneumonia with Augmentin and Levaquin. Upon arrival the patient was noted to be febrile, tachycardic, he is ill-appearing. He does have a PEG tube and a trach. The patient's mother provided additional history. She did not think that he had had any episodes of aspiration. He has had pneumonia in the past and had A bronchoscopy with Dr. Roe in which he had mucous plugs removed and a lavage. An IV established and he was treated with IV fluids, Tylenol was given to him via his PEG tube. Respiratory therapy was called and suctioned copious secretions from him and placed him back on the ventilator with clinical improvement. Septic workup was ordered including 2 sets of blood cultures, lactic acid, CBC with differential, comprehensive metabolic profile, COVID-19, urinalysis and BNP as the patient has a history of congestive heart failure according to his mother. His white count is elevated at 14.8. Hemoglobin is stable. Lactic acid is normal. Comprehensive metabolic profile is essentially normal. BNP is normal. Urinalysis is positive for greater than 100 white blood cells per high-power field however this was taken from the bag and may not be an accurate reflection of his urine. Culture is pending at this time. COVID 19 testing is negative. Chest x-ray shows a right lower lobe infiltrate and left-sided pleural effusion. He was treated for healthcare acquired pneumonia with IV Zosyn and vancomycin. After IV fluids and Tylenol his temperature did not respond and he was given ibuprofen via the PEG tube. The results and findings of the labs and x-ray were discussed with the patient's family. They are in agreement with admission to this facility. The case was discussed with the hospitalist service and he is excepted for admission to the ICU. Medical Records Medical records narrative: [place] [address] XRay Report Draft Patient: LOLIS QUINONES III MR#: [id number] : 1985 Acct:[id number] Age/Sex: 39 / M ADM Date: 03/23/24 Loc: ER Attending Dr: Ordering Physician: Linda Del Toro Date of Service: 03/23/24 Procedure(s): XR chest 1V Accession Number(s): [id number] cc: ~ [facility] [place] [address] Patient Name: LOLIS QUINONES MRN: [id number] date: 1985 Sex: M Assigned Patient Location: ED.MAIN Current Patient Location: ER Accession/Order Number: [id number] Exam Date: 03/23/2024 00:50 Report Date: 03/23/2024 01:39 At the request of: LINDA DEL TORO Procedure: XR chest 1V CLINICAL HISTORY: Short of breath COMPARISON: Most recent chest radiograph 01/23/2024 FINDINGS: Portable AP view of the chest obtained. Cardiomediastinal silhouette is markedly enlarged. Dense consolidation is present in the lung bases, right greater than left. Moderate left effusion. The patient has a tracheostomy. No acute bony abnormality. XR/XR chest 1V IMPRESSION: Marked cardiomegaly with dense bibasilar consolidation, right greater than left, and left-sided pleural effusion. Electronically authenticated by: DEBI PINA Date: 03/23/2024 01:39 Lab Data Lab results reviewed: Yes I reviewed the patient's lab results Labs: Lab Results 0703/23/24 03/23/24 Range/Units 00:45 01:05 01:57 WBC 14.8 H (4.0-11.0) 10^3/uL RBC 4.16 L (4.70-6.10) 10^6/uL Hgb 10.8 L (14.0-18.0) g/dL Hct 36.6 L (42.0-54.0) % MCV 88.0 (80.0-94.0) fL MCH 26.0 (25.9-34.0) pg MCHC 29.5 L (29.9-35.2) g/dL RDW 17.7 H (11.0-15.0) % Plt Count 284 (150-450) 10^3/uL MPV 11.7 (9.5-13.5) fL Neut % (Auto) 88.0 H (43.0-75.0) % Lymph % (Auto) 5.2 L (20.5-60.0) % Foard % (Auto) 4.1 (1.7-12.0) % Eos % (Auto) 2.1 (0.9-7.0) % Baso % (Auto) 0.4 (0.2-2.0) % Neut # (Auto) 13.1 H (1.4-6.5) 10^3/uL Lymph # (Auto) 0.8 L (1.2-3.8) 10^3/uL Foard # (Auto) 0.6 (0.3-0.8) 10^3/uL Eos # (Auto) 0.3 (0.0-0.7) 10^3/uL Baso # (Auto) 0.1 (0.0-0.1) 10^3/uL Abs Immat Gran (auto) 0.03 (0.00-0.03) 10^3/uL Imm/Tot Granulo (auto) 0.2 (0.0-0.5) % Sodium 137 (136-145) mmol/L Potassium 4.6 (3.5-5.1) mmol/L Chloride 100 (98-107) mmol/L Carbon Dioxide 35.7 H (21.0-32.0) mmol/L Anion Gap 5.9 BUN 20.0 H (7.0-18.0) mg/dL Creatinine 0.72 (0.70-1.30) mg/dL Est GFR ( Amer) >60 (>=60) Est GFR (Non-Af Amer) >60 (>=60) BUN/Creatinine Ratio 27.8 Glucose 114 H (74-106) mg/dL Lactate 1.4 (0.4-2.0) mmol/L Calcium 9.2 (8.5-10.1) mg/dL Total Bilirubin 0.4 (0.2-1.0) mg/dL AST 27 (15-37) U/L ALT 65 H (16-63) U/L Alkaline Phosphatase 227 H (46-116) U/L NT-Pro-B Natriuret Pep 112.0 (<=450.0) pg/mL Total Protein 7.9 (6.4-8.2) g/dL Albumin 2.3 L (3.4-5.0) g/dL Globulin 5.6 g/dL Albumin/Globulin Ratio 0.4 Urine Color Lt. yellow (YELLOW) Urine Clarity Clear (CLEAR) Urine pH 7.0 (5.0-9.0) Ur Specific [place] 1.020 (1.005-1.025) Urine Protein 30 A (NEG/TRACE) mg/dL Urine Glucose (UA) Negative (NEGATIVE) mg/dL Urine Ketones Negative (NEGATIVE) mg/dL Urine Occult Blood Large A (NEGATIVE) Urine Nitrite Negative (NEGATIVE) Urine Bilirubin Negative (NEGATIVE) Urine Urobilinogen 0.2 (0.2-1.0) EU/dL Ur Leukocyte Esterase Large A (NEGATIVE) Urine RBC 5-10 A (0-2) #/HPF Urine WBC >100 A (NONE SEEN) #/HPF Ur Squamous Epith Cells None seen (NONE/RARE) #/LPF Urine Crystals None seen (None Seen) #/HPF Urine Bacteria Moderate A (NONE SEEN) #/HPF Urine Casts None seen (NONE SEEN) #/LPF Urine Mucus None seen (NONE SEEN) Ur Culture Indicated? Already ordered SARS-CoV-2 Ag (CV2AG) Negative (NEGATIVE) ECG Data Attestation: I personally reviewed and interpreted this ECG as follows: (Sinus tachycardia at 121 bpm, normal axis, nonspecific ST changes, no acute ST segment elevation or T wave inversion) Critical Care Time Critical Care Time Critical Care Time: Yes Total Critical Care Time: 40 Attestation: . Discharge Plan Discharge Chief Complaint: Shortness of Breath/Dyspnea Clinical Impression: Pneumonia, Sepsis, Acute UTI Patient Disposition: Admitted As Inpatient Time of Disposition Decision: 02:50 Condition: Serious Prescriptions / Home Meds: No Action alprazolam 1 mg tablet 1 mg PO TID PRN (Reason: anxiety) Eliquis 5 mg tablet 5 mg PO Q12H baclofen 5 mg tablet 5 mg feeding tube Q8H escitalopram oxalate 10 mg tablet 10 mg feeding tube DAILY Rx Instructions: G-TUBE gabapentin 250 mg/5 mL solution 300 mg feeding tube TID metoprolol tartrate 25 mg tablet 25 mg feeding tube Q12H Patient Comments: HOLD FOR SBP < 100 HOLD FOR HR < 60 oxycodone 10 mg tablet 10 mg feeding tube Q6H acetaminophen [Pain Relief (acetaminophen)] 325 mg tablet 650 mg feeding tube Q4H PRN (Reason: fever or pain) Rx Instructions: GTUBE All Day Allergy (cetirizine) 10 mg capsule 10 mg PO DAILY polyethylene glycol 3350 [ClearLax] 17 gram/dose powder 17 g PO DAILY sennosides [Keena-jigar] 8.6 mg tablet 8.6 mg PO BID esomeprazole magnesium [address] for susp in packet 40 mg G-tube Q24H sucralfate 1 gram tablet 1 g feeding tube TID buspirone 5 mg tablet 10 mg feeding tube BID Rx Instructions: GTUBE melatonin 3 mg capsule 3 mg PO .QHS Rx Instructions: G-TUBE Artificial Tears (cmc) 1 % drops 1 drp ophthalmic (eye) Q6H Glucagon Emergency Kit (human) 1 mg recon soln 1 mg subcut PRN PRN (Reason: hypoglycemia) Rx Instructions: until target blood sugar attained Pro-Stat Sugar Free 15 gram- 100 kcal/30 mL Liquid In Packet 1 ea PO BID Qty: 2880 12RF Dakin's Solution 0.25 % Solution 30 ml topical QD Qty: 473 12RF potassium chloride 10 mEq Tablet,Er Particles/Crystals 20 meq G-tube BID Qty: 120 11RF ferrous sulfate [Feosol] 325 mg (65 mg iron) tablet 325 mg feeding tube DAILY folic acid 1 mg tablet 1 mg feeding tube DAILY ipratropium-albuterol 0.5 mg-3 mg(2.5 mg base)/3 mL solution for nebulization 3 ml INHALATION Q8H cholecalciferol (vitamin D3) 25 mcg (1,000 unit) capsule 1,000 unit feeding tube DAILY Isosource HN 0.05 gram- 1.2 kcal/mL liquid 300 ea feeding tube .Q4hour Rx Instructions: Isosource 1.2 300ml bolus. Administer first bolus at 275mL then advance to 300mL for next bolus. May use formulary interchange per RD recommendation sodium chloride 3 % Solution For Nebulization 4 ml inhalation Q6H PRN (Reason: secretions) Print Language: German Referrals: ALISA DELATORRE [Primary Care Provider] - 1 week
[2024-03-23 01:18] LABS: Basophils Absolute Auto 0.1 10^3/uL (0.0-0.1); Basophils Percent Auto 0.4 % (0.2-2.0); Eosinophils Absolute Auto 0.3 10^3/uL (0.0-0.7); Eosinophils Percent Auto 2.1 % (0.9-7.0); Hematocrit 36.6 % (42.0-54.0); Hemoglobin 10.8 g/dL (14.0-18.0); Immature Granulocytes Abs Auto 0.03 10^3/uL (0.00-0.03); Immature Granulocytes Pct Auto 0.2 % (0.0-0.5); Lymphocytes Absolute Auto 0.8 10^3/uL (1.2-3.8); Lymphocytes Percent Auto 5.2 % (20.5-60.0); Mean Corpuscular HGB Conc 29.5 g/dL (29.9-35.2); Mean Platelet Volume 11.7 fL (9.5-13.5); Monocytes Absolute Auto 0.6 10^3/uL (0.3-0.8); Monocytes Percent Auto 4.1 % (1.7-12.0); Neutrophils Absolute Auto 13.1 10^3/uL (1.4-6.5); Platelet Count 284 10^3/uL (150-450); Red Blood Count 4.16 10^6/uL (4.70-6.10); Red Cell Distribution Width 17.7 % (11.0-15.0); White Blood Count 14.8 10^3/uL (4.0-11.0)
[2024-03-23] MEDS: 0.9 % SODIUM CHLORIDE 1,000 ML 999 ML IV (01:19)
[2024-03-23] MEDS: ACETAMINOPHEN 160 MG/5 ML ORAL.SUSP 640 MG G-TUBE (01:20)
[2024-03-23 01:34] LABS: Bilirubin Urine NEGATIVE (NEGATIVE); Blood Urine LARGE (NEGATIVE); Clarity Urine CLEAR (CLEAR); Color Urine LT. YELLOW (YELLOW); Glucose Urine UA NEGATIVE (NEGATIVE); Ketones Urine NEGATIVE (NEGATIVE); Leukocyte Esterase Urine LARGE (NEGATIVE); Nitrite Urine NEGATIVE (NEGATIVE); Protein Urine 30 mg/dL (NEG/TRACE); Urobilinogen Urine 0.2 EU/dL (0.2-1.0)
[2024-03-23 01:37] LABS: Urine Microscopic Indicated YES
[2024-03-23 01:41] LABS: Alanine Aminotransferase 65 U/L (16-63); Albumin Globulin Ratio 0.4; Albumin Level 2.3 g/dL (3.4-5.0); Alkaline Phosphatase 227 U/L (46-116); Anion Gap 5.9; Aspartate Amino Transferase 27 U/L (15-37); BUN Creatinine Ratio 27.8; Bilirubin Total 0.4 mg/dL (0.2-1.0); Calcium 9.2 mg/dL (8.5-10.1); Carbon Dioxide 35.7 mmol/L (21.0-32.0); Chloride 100 mmol/L (98-107); Estimated GFR (African America >60 (>=60); Estimated GFR (Non-African Ame >60 (>=60); Globulin 5.6 g/dL; Glucose 114 mg/dL (74-106); Potassium 4.6 mmol/L (3.5-5.1); Sodium 137 mmol/L (136-145); Total Protein 7.9 g/dL (6.4-8.2)
[2024-03-23 01:42] LABS: Bacteria Urine MODERATE #/HPF (NONE SEEN); Crystals Seen? None Seen #/HPF (None Seen); Mucus Urine NONE SEEN (NONE SEEN); Squamous Epithelial Cell Urine NONE SEEN #/LPF (NONE/RARE); WBC Urine >100 #/HPF (NONE SEEN)
[2024-03-23 01:43] LABS: Cast Seen? NONE SEEN #/LPF (NONE SEEN); Urine Culture Indicated ALREADY ORDERED
[2024-03-23 01:44] LABS: Lactate/Lactic Acid 1.4 mmol/L (0.4-2.0)
[2024-03-23] MEDS: ONDANSETRON PF 4 MG/2 ML VIAL IV (01:48)
[2024-03-23] MEDS: PIPERACILLIN SODIUM/TAZOBACTAM 3.375 GM in 0.9 % SODIUM CHLORIDE 50 ML IV ×3 (01:48→16:22)
[2024-03-23] MEDS: MORPHINE SULFATE 4 MG/ML VIAL IV (01:48)
[2024-03-23 02:13] LABS: Internal Control Within Normal Limits; SARS-CoV-2 Ag NEGATIVE (NEGATIVE)
[2024-03-23] MEDS: VANCOMYCIN HCL 1,500 MG in 0.9 % SODIUM CHLORIDE 500 ML 250 MG IV (02:23)
[2024-03-23] MEDS: IBUPROFEN 200 MG/10 ML ORAL.SUSP 600 MG PO (02:51)
[2024-03-23] MEDS: 0.9 % SODIUM CHLORIDE 1,000 ML 126 ML IV (04:34)
[2024-03-23] MEDS: BACLOFEN 10 MG TABLET 5 MG FEED TUBE ×3 (06:28→21:53)
[2024-03-23] MEDS: OXYCODONE HCL 5 MG TABLET 10 MG PO ×4 (06:28→22:04)
[2024-03-23] MEDS: SUCRALFATE 1 GM TABLET G-TUBE ×3 (06:28→21:52)
--- NOTE | 2024-03-23 07:40 | P.HP_ITS ---
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 Normally he does respond with blinking to answer questions yes and no. In ER found to have pneumonia with copious amounts of secretions, possible aspiration with a large amount of residual in his PEG tube aspirate. Also found to have possible acute UTI When I saw the patient up in the intensive care unit, patient was not resting comfortably, seems somewhat labored with his breathing, and was not responding like he typically has in the past. 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 - 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 (ICD-10) Moderate protein-calorie malnutrition ?E44.0 - Moderate protein-calorie malnutrition (ICD-10) HTN (hypertension) ?I10 - Essential (primary) hypertension (ICD-10) Decubital ulcer ?L89.90 - Pressure ulcer of unspecified site, unspecified stage (ICD-10) Anemia ?D64.9 - Anemia, unspecified (ICD-10) 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 ?G83.5 - 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 (ICD-10) CVA (cerebral vascular accident) ?I63.9 - Cerebral infarction, unspecified (ICD-10) Sepsis ?A41.9 - Sepsis, unspecified organism (ICD-10) Acute and chronic respiratory failure with hypoxia ?J96.21 - Acute and chronic respiratory failure with hypoxia (ICD-10) UTI (urinary tract infection) due to urinary indwelling Iverson catheter ?T83.511A - Infection and inflammatory reaction due to indwelling urethral catheter, initial encounter (ICD-10) ?N39.0 - Urinary tract infection, site not specified (ICD-10) GIB (gastrointestinal bleeding) ?K92.2 - Gastrointestinal hemorrhage, unspecified (ICD-10) Leukocytosis ?D72.829 - Elevated white blood cell count, unspecified (ICD-10) Abdominal pain ?R10.9 - Unspecified abdominal pain (ICD-10) Vomiting ?R11.10 - Vomiting, unspecified (ICD-10) Status epilepticus ?G40.901 - Epilepsy, unspecified, not intractable, with status epilepticus (ICD-10) Respiratory failure ?J96.90 - Respiratory failure, unspecified, unspecified whether with hypoxia or hypercapnia (ICD-10) Social History Highest level of school completed/degree received: Associate degree: occupational, technical, vocational program Gender Identity: male Meds Home Medications and Allergies Home Medications ?Medication ?Instructions ?Recorded ?Confirmed ?Type acetaminophen 325 mg tablet (Pain 650 mg feeding tube Q4H PRN fever 11/21/23 03/23/24 History Relief (acetaminophen)) or pain alprazolam 1 mg tablet 1 mg PO TID PRN anxiety 11/21/23 03/23/24 History apixaban 5 mg tablet (Eliquis) 5 mg PO Q12H 11/21/23 03/23/24 History baclofen 5 mg tablet 5 mg feeding tube Q8H 11/21/23 03/23/24 History cetirizine 10 mg capsule (All Day 10 mg PO DAILY 11/21/23 03/23/24 History Allergy (cetirizine)) escitalopram oxalate 10 mg tablet 10 mg feeding tube DAILY 11/21/23 03/23/24 History gabapentin 250 mg/5 mL oral 300 mg feeding tube TID 11/21/23 03/23/24 History solution metoprolol tartrate 25 mg tablet 25 mg feeding tube Q12H 11/21/23 03/23/24 History oxycodone 10 mg tablet 10 mg feeding tube Q6H 11/21/23 03/23/24 History polyethylene glycol 3350 17 17 g PO DAILY 11/21/23 03/23/24 History gram/dose oral powder (ClearLax) sennosides 8.6 mg tablet (Keena-jigar) 8.6 mg PO BID 11/21/23 03/23/24 History buspirone 5 mg tablet 10 mg feeding tube BID 01/20/24 03/23/24 History esomeprazole magnesium 40 mg 40 mg G-tube DAILY 01/20/24 03/23/24 History granules delayed release for susp melatonin 3 mg capsule 3 mg PO .QHS 01/20/24 03/23/24 History sucralfate 1 gram tablet 1 g feeding tube TID 01/20/24 03/23/24 History carboxymethylcellulose sodium 1 % 1 drp ophthalmic (eye) Q6H 01/21/24 03/23/24 History eye drops (Artificial Tears (carboxymethylcellulose)) glucagon 1 mg solution for 1 mg subcut PRN PRN hypoglycemia 01/21/24 03/23/24 History injection (Glucagon Emergency Kit) potassium chloride 10 mEq 20 meq (2 x 10 mEq) G-tube BID 01/25/24 03/23/24 Rx tablet,extended release(part/cryst) #120 tabs cholecalciferol (vitamin D3) 25 1,000 unit feeding tube DAILY 03/23/24 03/23/24 History mcg (1,000 unit) capsule ferrous sulfate 325 mg (65 mg 325 mg feeding tube DAILY 03/23/24 03/23/24 History iron) tablet (Feosol) folic acid 1 mg tablet 1 mg feeding tube DAILY 03/23/24 03/23/24 History food supplemt, lactose-reduced 300 ea feeding tube .Q4hour 03/23/24 03/23/24 History 0.05 gram-1.2 kcal/mL liquid for tube feed (Isosource HN) guaifenesin 200 mg/5 mL oral 400 mg feeding tube .q12 03/23/24 03/23/24 History liquid (Liquituss GG) ipratropium 0.5 mg-albuterol 3 mg 3 ml inhalation Q8H 03/23/24 03/23/24 History (2.5 mg base)/3 mL nebulization soln sodium chloride 3 % for 4 ml inhalation Q6H PRN secretions 03/23/24 03/23/24 History nebulization Allergies Allergy/AdvReac Type Severity Reaction Status Date / Time fentanyl Allergy Severe Anaphylaxis Verified 11/21/23 09:59 Calcium Channel Blocking Allergy Unknown Unknown Verified 11/21/23 07:36 Agents-Dih fluoxetine [From Prozac] Allergy Unknown Verified 11/21/23 07:36 Exam Constitutional Vital Signs, click to edit/add: Last Vital Signs Temp 98.9 F 03/23/24 04:00 Pulse 99 H 03/23/24 12:00 Resp 18 03/23/24 12:00 BP 96/57 03/23/24 06:30 Pulse Ox 92 L 03/23/24 12:00 O2 Del Method Mechanical Ventilator 03/23/24 11:23 O2 Flow Rate 80 03/23/24 01:10 FiO2 40 03/23/24 11:23 Common normals: apparent distress (Moderate rest) Exam limitations: altered mental status Eye General eye: abnormal appearance of eye(s) Eyelid: eyelid(s) not normal (Little bruising over the eyelid,) Conjunctiva: conjunctiva(e) not normal (Right-sided sub conjunctival hemorrhage) Chest Common normals: inspection of chest normal Respiratory Common normals: no retractions; abnormal respiratory effort Auscultation: rhonchi and diminished lung sounds GI Common normals: negative for Normal to inspection, nondistended, normoactive bowel sounds present (Peg tube in place, abdomen soft) Extremity Common normals: normal to inspection, full ROM and no clubbing, cyanosis or edema Results Labs Labs: Short CBC 03/23/24 Range/Units 01:05 WBC 14.8 H (4.0-11.0) 10^3/uL Hgb 10.8 L (14.0-18.0) g/dL Hct 36.6 L (42.0-54.0) % Plt Count 284 (150-450) 10^3/uL BMP 03/23/24 01:05 Sodium 137 Potassium 4.6 Chloride 100 Carbon Dioxide 35.7 H BUN 20.0 H Creatinine 0.72 Glucose 114 H Calcium 9.2 Liver Function 03/23/24 Range/Units 01:05 Total Bilirubin 0.4 (0.2-1.0) mg/dL AST 27 (15-37) U/L ALT 65 H (16-63) U/L Alkaline Phosphatase 227 H (46-116) U/L Albumin 2.3 L (3.4-5.0) g/dL Urine 03/23/24 Range/Units 00:45 Urine Color Lt. yellow (YELLOW) Urine Clarity Clear (CLEAR) Urine pH 7.0 (5.0-9.0) Ur Specific [place] 1.020 (1.005-1.025) Urine Protein 30 A (NEG/TRACE) mg/dL Urine Glucose (UA) Negative (NEGATIVE) mg/dL ABG ABG results: 03/23/24 09:00 ABG pH 7.332 L ABG pCO2 63.3 H* ABG pO2 63.3 L ABG HCO3 33.5 H ABG O2 Saturation 92.2 ABG Base Excess 7.6 H Assessment and Plan Assessment and Plan (1) HCAP (healthcare-associated pneumonia): (2) Acute UTI: (3) Sepsis: Plan Fever of 2.5, sinus tachycardia, respiratory distress, significant hypotension with blood pressure 93/45, mean arterial pressure of 62, leukocytosis, CO2 retention, elevated liver function test secondary to healthcare acquired pneumonia resulting in sepsis with acute hypercapnic respiratory failure. Expand antibiotic coverage, consult to pulmonology for ventilator management and evaluation and management of healthcare acquired pneumonia. 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 Not as responsive as typically but sounds like did not sleep significantly last night and obviously ill as outlined above. Subconjunctival hemorrhage, also bruising over the upper eyelid, will check CT scan of head Moderate protein calorie malnutrition-diet supplement but will hold off on feeding today as he did have a large residual possible developing ileus secondary to the pneumonia and UTI History of blood clots, continue with Eliquis History of gastric bleed-continue with current medications Admission status: Patient was attended to be treated as an outpatient for his pneumonia, failing treatment and increasing respiratory distress and developing acute hypercapnic respiratory failure secondary to healthcare acquired pneumonia, medically necessary treatment will span more than 2 midnights, inpatient status.
--- NOTE | 2024-03-23 07:42 | PM.HP ---
HPI H&P: HPI History of Present Illness Chief complaint: OTHER PNEUMONIA SEPSIS UTI Opioid HPI Opioid Management Most Recent Pain and Opioid Data: Last Pain Scale 5 03/23/24 02:51 Last Pain Assessment 03/23/24 06:09 Last MAR Pain Assessment 03/23/24 06:28 Last ORT Total Score 2 03/23/24 04:18 Last ORT Risk Category Low Risk 03/23/24 04:18 Ur Phencyclidine Scrn Negative (NEGATIVE) 06/08/23 22:16 PFSH PFSH Medical History (Updated 03/23/24 @ 04:44 by Catina Mendez) 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 ?G83.5 - 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 (ICD-10) Moderate protein-calorie malnutrition ?E44.0 - Moderate protein-calorie malnutrition (ICD-10) HTN (hypertension) ?I10 - Essential (primary) hypertension (ICD-10) Decubital ulcer ?L89.90 - Pressure ulcer of unspecified site, unspecified stage (ICD-10) Anemia ?D64.9 - Anemia, unspecified (ICD-10) HCAP (healthcare-associated pneumonia) ?J18.9 - Pneumonia, unspecified organism (ICD-10) 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 ?G83.5 - 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 (ICD-10) CVA (cerebral vascular accident) ?I63.9 - Cerebral infarction, unspecified (ICD-10) Sepsis ?A41.9 - Sepsis, unspecified organism (ICD-10) Acute and chronic respiratory failure with hypoxia ?J96.21 - Acute and chronic respiratory failure with hypoxia (ICD-10) UTI (urinary tract infection) due to urinary indwelling Iverson catheter ?T83.511A - Infection and inflammatory reaction due to indwelling urethral catheter, initial encounter (ICD-10) ?N39.0 - Urinary tract infection, site not specified (ICD-10) GIB (gastrointestinal bleeding) ?K92.2 - Gastrointestinal hemorrhage, unspecified (ICD-10) Leukocytosis ?D72.829 - Elevated white blood cell count, unspecified (ICD-10) Abdominal pain ?R10.9 - Unspecified abdominal pain (ICD-10) Vomiting ?R11.10 - Vomiting, unspecified (ICD-10) Status epilepticus ?G40.901 - Epilepsy, unspecified, not intractable, with status epilepticus (ICD-10) Respiratory failure ?J96.90 - Respiratory failure, unspecified, unspecified whether with hypoxia or hypercapnia (ICD-10) Social History Highest level of school completed/degree received: Associate degree: occupational, technical, vocational program Gender Identity: male Meds Home Medications and Allergies Home Medications ?Medication ?Instructions ?Recorded ?Confirmed ?Type acetaminophen 325 mg tablet (Pain 650 mg feeding tube Q4H PRN fever 11/21/23 03/23/24 History Relief (acetaminophen)) or pain alprazolam 1 mg tablet 1 mg PO TID PRN anxiety 11/21/23 03/23/24 History apixaban 5 mg tablet (Eliquis) 5 mg PO Q12H 11/21/23 03/23/24 History baclofen 5 mg tablet 5 mg feeding tube Q8H 11/21/23 03/23/24 History cetirizine 10 mg capsule (All Day 10 mg PO DAILY 11/21/23 03/23/24 History Allergy (cetirizine)) escitalopram oxalate 10 mg tablet 10 mg feeding tube DAILY 11/21/23 03/23/24 History gabapentin 250 mg/5 mL oral 300 mg feeding tube TID 11/21/23 03/23/24 History solution metoprolol tartrate 25 mg tablet 25 mg feeding tube Q12H 11/21/23 03/23/24 History oxycodone 10 mg tablet 10 mg feeding tube Q6H 11/21/23 03/23/24 History polyethylene glycol 3350 17 17 g PO DAILY 11/21/23 03/23/24 History gram/dose oral powder (ClearLax) sennosides 8.6 mg tablet (Keena-jigar) 8.6 mg PO BID 11/21/23 03/23/24 History buspirone 5 mg tablet 10 mg feeding tube BID 01/20/24 03/23/24 History esomeprazole magnesium 40 mg 40 mg G-tube DAILY 01/20/24 03/23/24 History granules delayed release for susp melatonin 3 mg capsule 3 mg PO .QHS 01/20/24 03/23/24 History sucralfate 1 gram tablet 1 g feeding tube TID 01/20/24 03/23/24 History carboxymethylcellulose sodium 1 % 1 drp ophthalmic (eye) Q6H 01/21/24 03/23/24 History eye drops (Artificial Tears (carboxymethylcellulose)) glucagon 1 mg solution for 1 mg subcut PRN PRN hypoglycemia 01/21/24 03/23/24 History injection (Glucagon Emergency Kit) potassium chloride 10 mEq 20 meq (2 x 10 mEq) G-tube BID 01/25/24 03/23/24 Rx tablet,extended release(part/cryst) #120 tabs cholecalciferol (vitamin D3) 25 1,000 unit feeding tube DAILY 03/23/24 03/23/24 History mcg (1,000 unit) capsule ferrous sulfate 325 mg (65 mg 325 mg feeding tube DAILY 03/23/24 03/23/24 History iron) tablet (Feosol) folic acid 1 mg tablet 1 mg feeding tube DAILY 03/23/24 03/23/24 History food supplemt, lactose-reduced 300 ea feeding tube .Q4hour 03/23/24 03/23/24 History 0.05 gram-1.2 kcal/mL liquid for tube feed (Isosource HN) guaifenesin 200 mg/5 mL oral 400 mg feeding tube .q12 03/23/24 03/23/24 History liquid (Liquituss GG) ipratropium 0.5 mg-albuterol 3 mg 3 ml inhalation Q8H 03/23/24 03/23/24 History (2.5 mg base)/3 mL nebulization soln sodium chloride 3 % for 4 ml inhalation Q6H PRN secretions 03/23/24 03/23/24 History nebulization Allergies Allergy/AdvReac Type Severity Reaction Status Date / Time fentanyl Allergy Severe Anaphylaxis Verified 11/21/23 09:59 Calcium Channel Blocking Allergy Unknown Unknown Verified 11/21/23 07:36 Agents-Dih fluoxetine [From Prozac] Allergy Unknown Verified 11/21/23 07:36 Exam Constitutional Vital Signs, click to edit/add: Last Vital Signs Temp 98.9 F 03/23/24 04:00 Pulse 102 H 03/23/24 07:13 Resp 25 H 03/23/24 07:13 BP 96/57 03/23/24 06:30 Pulse Ox 99 03/23/24 07:13 O2 Del Method Mechanical Ventilator 03/23/24 07:13 O2 Flow Rate 80 03/23/24 01:10 FiO2 60 03/23/24 07:13 Results Labs Labs: Short CBC 03/23/24 Range/Units 01:05 WBC 14.8 H (4.0-11.0) 10^3/uL Hgb 10.8 L (14.0-18.0) g/dL Hct 36.6 L (42.0-54.0) % Plt Count 284 (150-450) 10^3/uL BMP 03/23/24 01:05 Sodium 137 Potassium 4.6 Chloride 100 Carbon Dioxide 35.7 H BUN 20.0 H Creatinine 0.72 Glucose 114 H Calcium 9.2 Liver Function 03/23/24 Range/Units 01:05 Total Bilirubin 0.4 (0.2-1.0) mg/dL AST 27 (15-37) U/L ALT 65 H (16-63) U/L Alkaline Phosphatase 227 H (46-116) U/L Albumin 2.3 L (3.4-5.0) g/dL Urine 03/23/24 Range/Units 00:45 Urine Color Lt. yellow (YELLOW) Urine Clarity Clear (CLEAR) Urine pH 7.0 (5.0-9.0) Ur Specific [place] 1.020 (1.005-1.025) Urine Protein 30 A (NEG/TRACE) mg/dL Urine Glucose (UA) Negative (NEGATIVE) mg/dL
--- NOTE | 2024-03-23 07:51 | P.PLCN_ITS ---
History of Present Illness History of Present Illness Consult date: 03/23/24 Requesting physician: Wilder Phelps Reason for consult: pneumonia Chief complaint: OTHER PNEUMONIA SEPSIS UTI Narrative: 39yo male on a ventilator chronically secondary to locked-in syndrome presents from [facility] with increased secretions. Patient was admitted to [facility] mid-January with pneumonia & respiratory failure. Performed a bronchoscopy on 01/22/2024 with clearance of multiple mucous plugs. BAL cultures were positive for Klebsiella pneumoniae, Pseudomonas aeruginosa, and Streptococcus agalactiae. He was treated with Levaquin ~2 weeks ago for increased secretions. Yesterday, he once again had increased secretions and this time was unable to maintain his saturations. He was brought to [facility] ER and was found to have worsening right-sided infiltrate, leukocytosis (WBC 14.8), febrile (102.5F), and tachycardic (133). RT suctioned him aggressively. He was started on Zosyn and Vancomycin. Discussed with RN. Temperature and HR are improved, but BP is dropping - BP is 96/57 (MAP 70). 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 ?G83.5 - 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 (ICD-10) Moderate protein-calorie malnutrition ?E44.0 - Moderate protein-calorie malnutrition (ICD-10) HTN (hypertension) ?I10 - Essential (primary) hypertension (ICD-10) Decubital ulcer ?L89.90 - Pressure ulcer of unspecified site, unspecified stage (ICD-10) Anemia ?D64.9 - Anemia, unspecified (ICD-10) 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 ?G83.5 - 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 (ICD-10) CVA (cerebral vascular accident) ?I63.9 - Cerebral infarction, unspecified (ICD-10) Sepsis ?A41.9 - Sepsis, unspecified organism (ICD-10) Acute and chronic respiratory failure with hypoxia ?J96.21 - Acute and chronic respiratory failure with hypoxia (ICD-10) UTI (urinary tract infection) due to urinary indwelling Iverson catheter ?T83.511A - Infection and inflammatory reaction due to indwelling urethral catheter, initial encounter (ICD-10) ?N39.0 - Urinary tract infection, site not specified (ICD-10) GIB (gastrointestinal bleeding) ?K92.2 - Gastrointestinal hemorrhage, unspecified (ICD-10) Leukocytosis ?D72.829 - Elevated white blood cell count, unspecified (ICD-10) Abdominal pain ?R10.9 - Unspecified abdominal pain (ICD-10) Vomiting ?R11.10 - Vomiting, unspecified (ICD-10) Status epilepticus ?G40.901 - Epilepsy, unspecified, not intractable, with status epilepticus (ICD-10) Respiratory failure ?J96.90 - Respiratory failure, unspecified, unspecified whether with hypoxia or hypercapnia (ICD-10) Social History Highest level of school completed/degree received: Associate degree: occupational, technical, vocational program Gender Identity: male Meds Home Medications and Allergies Home Medications ?Medication ?Instructions ?Recorded ?Confirmed ?Type acetaminophen 325 mg tablet (Pain 650 mg feeding tube Q4H PRN fever 11/21/23 03/23/24 History Relief (acetaminophen)) or pain alprazolam 1 mg tablet 1 mg PO TID PRN anxiety 11/21/23 03/23/24 History apixaban 5 mg tablet (Eliquis) 5 mg PO Q12H 11/21/23 03/23/24 History baclofen 5 mg tablet 5 mg feeding tube Q8H 11/21/23 03/23/24 History cetirizine 10 mg capsule (All Day 10 mg PO DAILY 11/21/23 03/23/24 History Allergy (cetirizine)) escitalopram oxalate 10 mg tablet 10 mg feeding tube DAILY 11/21/23 03/23/24 History gabapentin 250 mg/5 mL oral 300 mg feeding tube TID 11/21/23 03/23/24 History solution metoprolol tartrate 25 mg tablet 25 mg feeding tube Q12H 11/21/23 03/23/24 History oxycodone 10 mg tablet 10 mg feeding tube Q6H 11/21/23 03/23/24 History polyethylene glycol 3350 17 17 g PO DAILY 11/21/23 03/23/24 History gram/dose oral powder (ClearLax) sennosides 8.6 mg tablet (Keena-jigar) 8.6 mg PO BID 11/21/23 03/23/24 History buspirone 5 mg tablet 10 mg feeding tube BID 01/20/24 03/23/24 History esomeprazole magnesium 40 mg 40 mg G-tube DAILY 01/20/24 03/23/24 History granules delayed release for susp melatonin 3 mg capsule 3 mg PO .QHS 01/20/24 03/23/24 History sucralfate 1 gram tablet 1 g feeding tube TID 01/20/24 03/23/24 History carboxymethylcellulose sodium 1 % 1 drp ophthalmic (eye) Q6H 01/21/24 03/23/24 History eye drops (Artificial Tears (carboxymethylcellulose)) glucagon 1 mg solution for 1 mg subcut PRN PRN hypoglycemia 01/21/24 03/23/24 History injection (Glucagon Emergency Kit) potassium chloride 10 mEq 20 meq (2 x 10 mEq) G-tube BID 01/25/24 03/23/24 Rx tablet,extended release(part/cryst) #120 tabs cholecalciferol (vitamin D3) 25 1,000 unit feeding tube DAILY 03/23/24 03/23/24 History mcg (1,000 unit) capsule ferrous sulfate 325 mg (65 mg 325 mg feeding tube DAILY 03/23/24 03/23/24 History iron) tablet (Feosol) folic acid 1 mg tablet 1 mg feeding tube DAILY 03/23/24 03/23/24 History food supplemt, lactose-reduced 300 ea feeding tube .Q4hour 03/23/24 03/23/24 History 0.05 gram-1.2 kcal/mL liquid for tube feed (Isosource HN) guaifenesin 200 mg/5 mL oral 400 mg feeding tube .q12 03/23/24 03/23/24 History liquid (Liquituss GG) ipratropium 0.5 mg-albuterol 3 mg 3 ml inhalation Q8H 03/23/24 03/23/24 History (2.5 mg base)/3 mL nebulization soln sodium chloride 3 % for 4 ml inhalation Q6H PRN secretions 03/23/24 03/23/24 History nebulization Allergies Allergy/AdvReac Type Severity Reaction Status Date / Time fentanyl Allergy Severe Anaphylaxis Verified 11/21/23 09:59 Calcium Channel Blocking Allergy Unknown Unknown Verified 11/21/23 07:36 Agents-Dih fluoxetine [From Prozac] Allergy Unknown Verified 11/21/23 07:36 Exam Constitutional Vital Signs, click to edit/add: Last Vital Signs Temp 98.9 F 03/23/24 04:00 Pulse 102 H 03/23/24 07:13 Resp 25 H 03/23/24 07:13 BP 96/57 03/23/24 06:30 Pulse Ox 99 03/23/24 07:13 O2 Del Method Mechanical Ventilator 03/23/24 07:13 O2 Flow Rate 80 03/23/24 01:10 FiO2 60 03/23/24 07:13 Documenting provider has reviewed patient's vital signs: yes General appearance: patient mechanically ventilated Eye Other: Small ecchymosis right eyelid Neck & C-Spine General: trachea midline and tracheostomy present (No exudate or bleeding - site appears clean); no tracheal deviation Chest Common normals: inspection of chest normal Chest: symmetrical chest wall rise Respiratory Other: Diminished breath sounds on left side. Right side diffuse rhonchi and expiratory wheezes. Cardio Other: RRR - currently in the 90's GI Inspection: normal to inspection and GI tube present Bladder/kidney exam: catheter in place Extremity Other: Trace edema Neuro Other: Does not spontaneously move extremities Psych Attitude: calm Results Laboratory Findings Abnormal lab findings: Abnormal Labs 03/23/24 03/23/24 00:45 01:05 WBC 14.8 H RBC 4.16 L Hgb 10.8 L Hct 36.6 L MCHC 29.5 L RDW 17.7 H Neut % (Auto) 88.0 H Lymph % (Auto) 5.2 L Neut # (Auto) 13.1 H Lymph # (Auto) 0.8 L Carbon Dioxide 35.7 H BUN 20.0 H Glucose 114 H ALT 65 H Alkaline Phosphatase 227 H Albumin 2.3 L Urine Protein 30 A Urine Occult Blood Large A Ur Leukocyte Esterase Large A Urine RBC 5-10 A Urine WBC >100 A Urine Bacteria Moderate A Assessment and Plan Assessment and Plan (1) HCAP (healthcare-associated pneumonia): Assessment and Plan: 1. Healthcare acquired pneumonia - right lung. Cultures currently pending. Prior bronchoscopy 01/22/2024 BAL was positive for Klebsiella pneumoniae, Pseudomonas aeruginosa, and Streptococcus agalactiae - unclear if any of these were colonization vs. actual pneumonia. For now, he remains on Zosyn + Vancomycin (was on these in January) and completed a course of Levaquin 1 week ago (was on this in January as well). Awaiting cultures. Will recheck CXR tomorrow - if infiltrates are worsening, will consider bronchoscopy. 2. Severe sepsis secondary to pneumonia. SIRS criteria on admission. Required increase in FiO2 in ER to 100% d/t SpO2 86% on baseline FiO2 60%. MAP 70 - goal is >65. May need to consider pressors if MAP <65. Changing IVF from NS to LR to reduce risk of developing hyperchloremic acidosis on top of his chronic respiratory acidosis. 3. [id number] hypoxic respiratory failure. As above. Monitor SpO2. May require bronchoscopy for clearance of secretions if mucus plugging seems to worsen. 4. Chronic hypercapnic respiratory failure. HCO3 35.7 - will attempt to obtain ABG. 5. 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 Remains on Eliquis.
--- NOTE | 2024-03-23 08:01 | CM.NOTE ---
Rounds made with Dr. Phelps. Continue with current treatment plan. No discharge today.
[2024-03-23] MEDS: CETIRIZINE HCL 10 MG TABLET PO (08:06)
[2024-03-23] MEDS: ESCITALOPRAM 10 MG TABLET G-TUBE (08:06)
[2024-03-23] MEDS: SENNOSIDES 8.6 MG TABLET PO ×2 (08:06→20:32)
[2024-03-23] MEDS: FERROUS SULFATE 325 MG TABLET G-TUBE (08:06)
[2024-03-23] MEDS: FOLIC ACID 1 MG TABLET G-TUBE (08:06)
[2024-03-23] MEDS: BUSPIRONE HCL 10 MG TABLET FEED TUBE ×2 (08:06→20:32)
[2024-03-23] MEDS: LACTATED RINGER'S SOLUTION 1,000 ML 125 ML IV ×2 (08:11→16:25)
[2024-03-23] MEDS: CHOLECALCIFEROL (VITAMIN D3) 25 MCG/1,000 UNITS TABLET FEED TUBE (08:28)
[2024-03-23] MEDS: GUAIFENESIN 200 MG/10 ML LIQUID 400 MG G-TUBE (08:28)
[2024-03-23] MEDS: ACETAMINOPHEN 500 MG TABLET 1000 MG G-TUBE (09:05)
[2024-03-23 09:11] LABS: Base Excess ABG 7.6 mmol/L (-2.0-2.0); HCO3 ABG 33.5 mmol/L (22.0-26.0); Oxygen Saturation ABG 92.2 %; PO2 ABG 63.3 mmHg (80.0-100.0); pH ABG 7.332 (7.350-7.450)
[2024-03-23 09:12] LABS: Allen Test POSITIVE (POSITIVE); Fractionated Inspired Oxygen 40 %; O2 Mode VENTILATOR; Puncture Site RIGHT RADIAL; Rate 18; Tidal Volume 400; Vent Mode AC VC
[2024-03-23 09:13] LABS: Minute Volume 7.7
[2024-03-23 09:14] LABS: ABG PCO2 63.3 mmHg (35.0-45.0)
--- NOTE | 2024-03-23 10:11 | DIETREC ---
Recommend Jevity 1.5 formula, 200 mL bolus q4 hours to provide 100 kcal, 77 gm PRO, 912 mL free water in 1200 mL TV. Recommend 30 mL PRO-stat BID to provide 200 kcal, 30 gm PRO in 60 mL TV. Provide 125 mL water flushes q4 hours.
--- NOTE | 2024-03-23 10:25 | SWNOTE1 ---
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 SW faxed over updates to Viky at [facility]. No discharge today.
[2024-03-23] MEDS: IPRATROPIUM/ALBUTEROL SULFATE 3 ML AMPUL.NEB IH ×3 (11:21→20:32)
[2024-03-23] MEDS: SODIUM CHLORIDE 0.9% IV (11:56)
[2024-03-23] MEDS: JEVITY 1.5 CAL 237 ML LIQUID FEED TUBE ×4 (11:56→23:57)
[2024-03-23] MEDS: AMIKACIN SULFATE IV (11:56)
[2024-03-23] MEDS: ARTIFICIAL TEARS 300 DROP/15 ML BOTTLE OP ×3 (11:56→23:57)
[2024-03-23] MEDS: VANCOMYCIN HCL 1,250 MG in 0.9 % SODIUM CHLORIDE 250 ML 166.667 MG IV ×2 (13:31→20:43)
--- NOTE | 2024-03-23 14:09 | SWNOTE1 ---
DAMEON met with pt's mother in room. DAMEON confirmed with pt's mother that the plan is for pt to return to [facility] at discharge. She voiced that is the plan and the staff take great care of him. She did voice concerns that the columnist is talking about cutting staffing hours. She would like the number for the [facility], DAMEON provided her with the number. No other concerns at this time.
--- NOTE | 2024-03-23 14:11 | CT_ITS ---
The [address] [address] Patient Name: LOLIS QUINONES MRN: [id number] date: 1985 Sex: M Assigned Patient Location: ICU Current Patient Location: ICU Accession/Order Number: [id number] Exam Date: 03/23/2024 14:34 Report Date: 03/23/2024 15:20 At the request of: JEFF VERDUZCO Procedure: CT head/brain wo con EXAM: CT head/brain wo con HISTORY: R eye swelling COMPARISON: CT brain 11/21/2023. TECHNIQUE: Axial CT scans through the head were obtained without IV contrast administration. Dose reduction techniques were achieved by using: automated exposure control and/or adjustment of mA and /or kV according to patient size and/or use of iterative reconstruction technique. FINDINGS: There is no acute intracranial hemorrhage or abnormal extra-axial fluid collection. No mass effect or midline shift is seen. There is no evidence of large acute territorial infarction. There is no hydrocephalus. To the limit of CT, the posterior fossa appears unremarkable. Redemonstrated is dolichoectasia of bilateral V4 vertebral arteries. 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 No acute fracture. The extra cranial soft tissues are unremarkable. The visualized orbits show no abnormality. There is near complete opacification of ethmoid air cells and partially visualized bilateral maxillary sinuses. There is aplasia of bilateral frontal and hypoplasia of bilateral sphenoid sinuses. There are opacifications of bilateral mastoid air cells and middle ear cavities. CT/CT head/brain wo con IMPRESSION: No acute intracranial process. 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 Partially visualized paranasal sinus disease, as described. Opacification within the mastoid air cells and middle ear cavities bilaterally. Recommend clinical correlation for bilateral otitis media, mastoiditis and sinusitis. Electronically authenticated by: [facility] Date: 03/23/2024 15:20
[2024-03-23] MEDS: GABAPENTIN 300 MG CAPSULE PO ×2 (16:22→21:53)
[2024-03-23] MEDS: SODIUM HYPOCHLORITE 30 ML TOPICAL (16:23)
[2024-03-23 18:51] LABS: A. calcoaceticus-baumannii Cpx NOT DETECTED (NOT DETECTE); Bacteroides fragilis NOT DETECTED (NOT DETECTE); Candida albicans NOT DETECTED (NOT DETECTE); Candida auris NOT DETECTED (NOT DETECTE); Candida glabrata NOT DETECTED (NOT DETECTE); Candida krusei NOT DETECTED (NOT DETECTE); Candida parapsilosis NOT DETECTED (NOT DETECTE); Candida tropicalis NOT DETECTED (NOT DETECTE); Cryptococcus neoformans/gattii NOT DETECTED (NOT DETECTE); Enterobacter cloacae complex NOT DETECTED (NOT DETECTE); Enterobacterales NOT DETECTED (NOT DETECTE); Enterococcus faecalis NOT DETECTED (NOT DETECTE); Enterococcus faecium NOT DETECTED (NOT DETECTE); Haemophilus influenzae NOT DETECTED (NOT DETECTE); Klebsiella aerogenes NOT DETECTED (NOT DETECTE); Klebsiella pneumoniae group NOT DETECTED (NOT DETECTE); Listeria monocytogenes NOT DETECTED (NOT DETECTE); Neisseria meningitidis NOT DETECTED (NOT DETECTE); Proteus spp. NOT DETECTED (NOT DETECTE); Pseudomonas aeruginosa NOT DETECTED (NOT DETECTE); Salmonella spp. NOT DETECTED (NOT DETECTE); Serratia marcescens NOT DETECTED (NOT DETECTE); Staphylococcus epidermidis NOT DETECTED (NOT DETECTE); Staphylococcus lugdunensis NOT DETECTED (NOT DETECTE); Stenotrophomonas maltophilia NOT DETECTED (NOT DETECTE); Streptococcus agalactiae NOT DETECTED (NOT DETECTE); Streptococcus pneumoniae NOT DETECTED (NOT DETECTE); Streptococcus pyogenes NOT DETECTED (NOT DETECTE); Streptococcus spp. NOT DETECTED (NOT DETECTE)
[2024-03-23] MEDS: APIXABAN 5 MG TABLET PO (20:32)
[2024-03-23] MEDS: METOPROLOL TARTRATE 25 MG TABLET G-TUBE (20:32)
[2024-03-23 21:50] LABS: Source BLOOD; Staphylococcus spp. DETECTED (NOT DETECTE)
[2024-03-24] VITALS (93 sets, daily range): BP systolic 86–157; BP diastolic 44–95; PULSE 95–125; TEMP 36.6–39.4; O2SAT 88–99
[2024-03-24] MEDS: GUAIFENESIN 200 MG/10 ML LIQUID 400 MG G-TUBE ×4 (02:20→22:12)
[2024-03-24] MEDS: ALPRAZOLAM 1 MG TABLET PO (02:21)
[2024-03-24] MEDS: ACETAMINOPHEN 500 MG TABLET 1000 MG G-TUBE ×2 (02:21→16:36)
[2024-03-24] MEDS: VANCOMYCIN HCL 1,250 MG in 0.9 % SODIUM CHLORIDE 250 ML 167 MG IV (04:12)
[2024-03-24] MEDS: IPRATROPIUM/ALBUTEROL SULFATE 3 ML AMPUL.NEB IH ×4 (05:04→20:22)
[2024-03-24] MEDS: BACLOFEN 10 MG TABLET 5 MG FEED TUBE ×3 (05:32→22:13)
[2024-03-24] MEDS: SUCRALFATE 1 GM TABLET G-TUBE ×3 (05:32→22:12)
[2024-03-24] MEDS: OMEPRAZOLE 40 MG CAPSULE.DR G-TUBE (05:33)
[2024-03-24] MEDS: GABAPENTIN 300 MG CAPSULE PO ×3 (05:33→22:12)
[2024-03-24] MEDS: OXYCODONE HCL 5 MG TABLET 10 MG PO ×4 (05:33→22:12)
[2024-03-24] MEDS: ARTIFICIAL TEARS 300 DROP/15 ML BOTTLE OP ×3 (05:33→18:24)
--- NOTE | 2024-03-24 06:00 | XR_ITS ---
[address] [address] Patient Name: LOLIS QUINONES MRN: [id number] date: 1985 Sex: M Assigned Patient Location: ICU Current Patient Location: ICU Accession/Order Number: [id number] Exam Date: 03/24/2024 06:00 Report Date: 03/24/2024 07:28 At the request of: HAROLDO ORTIZ Procedure: XR chest 1V EXAM: XR chest 1V HISTORY: Right lung pneumonia COMPARISON: 03/23/2024 TECHNIQUE: Portable FINDINGS: LUNGS: Tracheostomy cannula is stable, the tip projects over the upper trachea. Moderate bibasilar infiltrates partially obscuring the right hemidiaphragm, slightly increased on the right, slightly improved on the left VASCULATURE: No increased pulmonary vasculature. PLEURA: No pneumothorax. Likely right pleural effusion CARDIAC: No cardiomegaly or cardiac silhouette abnormality. MEDIASTINUM: No visible mass or adenopathy. BONES: No fracture or visible bone lesion. OTHER: Right PICC catheter tip projects over the right atrium XR/XR chest 1V IMPRESSION: Moderate bilateral parenchymal infiltrates, slightly increased on the right, slightly improved on the left Electronically authenticated by: CLAIR CORTES Date: 03/24/2024 07:28
[2024-03-24 06:08] LABS: Basophils Absolute Auto 0.1 10^3/uL (0.0-0.1); Basophils Percent Auto 0.4 % (0.2-2.0); Eosinophils Absolute Auto 0.7 10^3/uL (0.0-0.7); Eosinophils Percent Auto 4.7 % (0.9-7.0); Hematocrit 30.4 % (42.0-54.0); Hemoglobin 8.6 g/dL (14.0-18.0); Immature Granulocytes Abs Auto 0.04 10^3/uL (0.00-0.03); Immature Granulocytes Pct Auto 0.3 % (0.0-0.5); Lymphocytes Absolute Auto 1.4 10^3/uL (1.2-3.8); Mean Corpuscular HGB Conc 28.3 g/dL (29.9-35.2); Mean Corpuscular Hemoglobin 25.4 pg (25.9-34.0); Mean Corpuscular Volume 89.7 fL (80.0-94.0); Monocytes Absolute Auto 0.7 10^3/uL (0.3-0.8); Neutrophils Absolute Auto 10.9 10^3/uL (1.4-6.5); Neutrophils Percent Auto 79.6 % (43.0-75.0); Platelet Count 237 10^3/uL (150-450); Red Blood Count 3.39 10^6/uL (4.70-6.10); Red Cell Distribution Width 17.9 % (11.0-15.0); White Blood Count 13.7 10^3/uL (4.0-11.0)
[2024-03-24 06:30] LABS: Alanine Aminotransferase 36 U/L (16-63); Albumin Globulin Ratio 0.4; Albumin Level 1.7 g/dL (3.4-5.0); Alkaline Phosphatase 174 U/L (46-116); Anion Gap 4.6; Aspartate Amino Transferase 13 U/L (15-37); BUN Creatinine Ratio 18.5; Bilirubin Total 0.4 mg/dL (0.2-1.0); Calcium 8.7 mg/dL (8.5-10.1); Carbon Dioxide 35.1 mmol/L (21.0-32.0); Chloride 105 mmol/L (98-107); Estimated GFR (African America >60 (>=60); Estimated GFR (Non-African Ame >60 (>=60); Globulin 4.8 g/dL; Glucose 128 mg/dL (74-106); Potassium 3.7 mmol/L (3.5-5.1); Sodium 141 mmol/L (136-145); Total Protein 6.5 g/dL (6.4-8.2)
--- NOTE | 2024-03-24 06:49 | RESP.RT ---
Pt resting comfortably. No indication for suctioning at this time.
--- NOTE | 2024-03-24 08:10 | P.PN_ITS ---
Progress Note: Subjective Subjective Interval history: Not as alert as in the past, seems more comfortable with his breathing though Exam Constitutional Vital Signs, click to edit/add: Last Vital Signs Temp 98.1 F 03/24/24 06:00 Pulse 97 H 03/24/24 07:34 Resp 18 03/24/24 06:45 BP 94/49 03/24/24 06:00 Pulse Ox 93 L 03/24/24 07:34 O2 Del Method Mechanical Ventilator 03/24/24 06:00 O2 Flow Rate 80 03/23/24 01:10 FiO2 30 03/24/24 06:45 Common normals: apparent distress (Moderate rest) Exam limitations: altered mental status Eye General eye: abnormal appearance of eye(s) Eyelid: eyelid(s) not normal (Little bruising over the eyelid,) Conjunctiva: conjunctiva(e) not normal (Right-sided sub conjunctival hemorrhage) Chest Common normals: inspection of chest normal Respiratory Common normals: no retractions; abnormal respiratory effort Auscultation: rhonchi (Better air changed today) and diminished lung sounds GI Common normals: negative for Normal to inspection, nondistended, normoactive bowel sounds present (Peg tube in place, abdomen soft) Extremity Common normals: normal to inspection and full ROM General: edema (1+ edema-chronic for him) Progress Note: Objective Labs Labs: Short CBC 03/24/24 Range/Units 04:40 WBC 13.7 H (4.0-11.0) 10^3/uL Hgb 8.6 L (14.0-18.0) g/dL Hct 30.4 L (42.0-54.0) % Plt Count 237 (150-450) 10^3/uL BMP 03/24/24 04:40 Sodium 141 Potassium 3.7 Chloride 105 Carbon Dioxide 35.1 H BUN 15.0 Creatinine 0.81 Glucose 128 H Calcium 8.7 Liver Function 03/24/24 Range/Units 04:40 Total Bilirubin 0.4 (0.2-1.0) mg/dL AST 13 L (15-37) U/L ALT 36 (16-63) U/L Alkaline Phosphatase 174 H (46-116) U/L Albumin 1.7 L (3.4-5.0) g/dL Progress Note: A&P Assessment and Plan (1) HCAP (healthcare-associated pneumonia): (2) Acute UTI: (3) Sepsis: Plan Finding on admission: Fever of 102.5, sinus tachycardia, respiratory distress, significant hypotension with blood pressure 93/45, mean arterial pressure of 62, leukocytosis, CO2 retention, elevated liver function test secondary to healthcare acquired pneumonia resulting in severe sepsis with acute hypercapnic respiratory failure. Discussed care with pulmonology this morning, will check lactate level, consider changing antibiotics with fever spike overnight, hypotensive this morning, small fluid bolus, pulmonology planning bronchoscopy later today Bilateral pleural effusion-evaluation by pulmonology Cardiomegaly-consider echocardiogram but will hold off at this time not likely to change treatment plan Acute UTI-culture pending, blood cultures pending Elevated liver function test on admission-improved today. 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 Not as responsive as typically but sounds like did not sleep significantly last night and obviously ill as outlined above. Subconjunctival hemorrhage, also bruising over the upper eyelid, head CT without significant findings around the eye Moderate protein calorie malnutrition-diet supplement but will hold off on feeding today as he did have a large residual possible developing ileus secondary to the pneumonia and UTI if continues to improve tomorrow likely restart feeds History of blood clots, continue with Eliquis History of gastric bleed-continue with current medications Admission status: Patient was attended to be treated as an outpatient for his pneumonia, failing treatment and increasing respiratory distress and developing acute hypercapnic respiratory failure secondary to healthcare acquired pneumonia, medically necessary treatment will span more than 2 midnights, inpatient status. Urinary Catheter Management Urinary Catheter Management Urethral: Cath placed during this visit: no
[2024-03-24] MEDS: POLYETHYLENE GLYCOL 3350 17 GM POWDER PACKET PO (08:20)
[2024-03-24] MEDS: SENNOSIDES 8.6 MG TABLET PO ×2 (08:21→22:13)
[2024-03-24] MEDS: FOLIC ACID 1 MG TABLET G-TUBE (08:21)
[2024-03-24] MEDS: BUSPIRONE HCL 10 MG TABLET FEED TUBE ×2 (08:21→22:12)
[2024-03-24] MEDS: CETIRIZINE HCL 10 MG TABLET PO (08:21)
[2024-03-24] MEDS: PIPERACILLIN SODIUM/TAZOBACTAM 3.375 GM in 0.9 % SODIUM CHLORIDE 50 ML IV ×3 (08:21→16:40)
[2024-03-24] MEDS: ESCITALOPRAM 10 MG TABLET G-TUBE (08:21)
[2024-03-24] MEDS: CHOLECALCIFEROL (VITAMIN D3) 25 MCG/1,000 UNITS TABLET FEED TUBE (08:21)
[2024-03-24] MEDS: FERROUS SULFATE 325 MG TABLET G-TUBE (08:21)
[2024-03-24] MEDS: APIXABAN 5 MG TABLET PO ×2 (08:21→22:13)
[2024-03-24] MEDS: JEVITY 1.5 CAL 237 ML LIQUID FEED TUBE ×2 (08:22→14:00)
--- NOTE | 2024-03-24 08:28 | CM.NOTE ---
Rounds made with Dr. Phelps. Dr. Phelps explains that labs will be ordered and continue with current treatment plan. No discharge today.
[2024-03-24 08:46] LABS: Lactate/Lactic Acid 0.7 mmol/L (0.4-2.0)
[2024-03-24] MEDS: 0.9 % SODIUM CHLORIDE 500 ML IV (09:28)
--- NOTE | 2024-03-24 09:49 | REH.PTDLY ---
Physical Therapy Daily Note PT Daily Note/Assess Start: 03/23/24 11:48 Freq: Status: Active Protocol: Document 03/24/24 09:45 NIALL (Rec: 03/24/24 09:49 NIALL [id number]) Visit Not Completed Visit Not Completed Due to: Nursing request to hold Other Reason Visit Not Completed Danilo CORCORAN states 'Getting a bronch in an hour. Pt spiked a fever last night and has not been able to wake him this morning'. Requests to hold at this time. Physical Therapy Daily Note/Assessment Time In 09:40 Time Out 09:41
[2024-03-24] MEDS: AMIKACIN SULFATE IV (10:45)
[2024-03-24] MEDS: LACTATED RINGER'S SOLUTION 1,000 ML 125 ML IV ×2 (10:45)
[2024-03-24] MEDS: SODIUM CHLORIDE 0.9% IV (10:45)
[2024-03-24] MEDS: MIDAZOLAM HCL 2 MG/2 ML VIAL 4 MG IV (12:30)
[2024-03-24] MEDS: VANCOMYCIN HCL 1,250 MG in 0.9 % SODIUM CHLORIDE 250 ML 166 MG IV (14:04)
--- NOTE | 2024-03-24 14:17 | SWNOTE1 ---
Updates sent to [facility]. Updates included physician note from today, vitals, labs, nursing notes, med list, PT/OT notes, and diagnostic imaging.
[2024-03-24 14:25] LABS: Base Excess ABG 7.4 mmol/L (-2.0-2.0); HCO3 ABG 33.2 mmol/L (22.0-26.0); PO2 ABG 75.2 mmHg (80.0-100.0); pH ABG 7.338 (7.350-7.450)
[2024-03-24 14:26] LABS: Allen Test POSITIVE (POSITIVE); Fractionated Inspired Oxygen 40 %; O2 Mode VENT; Oxygen Saturation ABG 95.4 %; Puncture Site L RADIAL; Vent Mode AC-VC
[2024-03-24 14:27] LABS: Minute Volume 7.21; Rate 18; Tidal Volume 400
[2024-03-24 14:29] LABS: ABG PCO2 61.8 mmHg (35.0-45.0)
--- NOTE | 2024-03-24 14:47 | XR_ITS ---
The [address] [address] Patient Name: LOLIS QUINONES MRN: [id number] date: 1985 Sex: M Assigned Patient Location: ICU Current Patient Location: ICU Accession/Order Number: [id number] Exam Date: 03/24/2024 14:40 Report Date: 03/24/2024 14:58 At the request of: JEFF VERDUZCO Procedure: XR chest 1V EXAM: XR chest 1V HISTORY: elevated CO2 COMPARISON: None. TECHNIQUE: 03/24/2024 FINDINGS: LUNGS: Low lung volumes. Moderate parenchymal infiltrates with a mid to lower lung predominance, significantly progressed from the prior exam obscuring both hemidiaphragms and partially obscuring the heart borders. Stable tracheostomy VASCULATURE: Increased pulmonary vascularity, slightly progressed PLEURA: No pneumothorax. Bilateral pleural effusions CARDIAC: No cardiomegaly or cardiac silhouette abnormality. MEDIASTINUM: No visible mass or adenopathy. BONES: No fracture or visible bone lesion. Cervical fusion hardware OTHER: Right PICC catheter tip projects over the cavoatrial junction XR/XR chest 1V IMPRESSION: Slight progression of pulmonary vascular congestion Significant interval progression of bilateral parenchymal infiltrates/pleural effusions Electronically authenticated by: CLAIR CORTES Date: 03/24/2024 14:58
--- NOTE | 2024-03-24 14:47 | PM.PLPN ---
Progress Note: A&P Assessment and Plan (1) HCAP (healthcare-associated pneumonia): Assessment and Plan: 1. Healthcare acquired pneumonia right lung. Cultures remain pending. Currently on Zosyn + Vancomycin. Transient temp spike last night. Slight decrease in WBC. Copious amount of secretions note. Previously had bronchoscopy 01/22/2024 with BAL positive for Klebsiella pneumoniae, Pseudomonas aeruginosa, and Streptococcus agalactiae. CXR worse on right today - this is the side with the mucus plugging in January. Discussed with patient's father, who is his POA, about a bronchoscopy. Discussed risks including pain, bleeding, additional infection, and pneumothorax. He is allergic to fentanyl. Consent was obtained, bronchoscopy to be performed. From a pulmonary toilet standpoint, will see if vest helps to mobilize secretions. Also, encourage nebulized mucolytics to thin secretions (saline or hypertonic saline or Mucomyst) on a more regular basis outpatient to prevent further mucus plugging. 2. Severe sepsis secondary to pneumonia. Had isolated temp spike last night. WBC down slightly from admission. Check lactate to see if worsening. Procalcitonin would be send-out currently 3. Rnels-xm-zfgbbm hypoxic respiratory failure. Monitoring oxygenation improvement. 4. Uclbx-jm-txxygeo hypercapnic respiratory failure. Patient has mild increase in CO2 compared to baseline ~55. Concerned that mucus plugging is affecting tidal volume to expunge CO2. 5. 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 Remains on Eliquis. Subjective Subjective Interval history: Discussed with RN and RT. Patient has been relatively somnolent. CXR this AM showed worsening of right lung and slight improvement in left. Copious amounts of secretions are being suctioned. Had transient temp spike last night but none since. Exam Constitutional Vital Signs, click to edit/add: Last Vital Signs Temp 99.1 F 03/24/24 14:32 Pulse 105 H 03/24/24 14:30 Resp 20 03/24/24 14:11 BP 112/61 03/24/24 14:00 Pulse Ox 94 L 03/24/24 14:30 O2 Del Method Mechanical Ventilator 03/24/24 11:10 O2 Flow Rate 80 03/23/24 01:10 FiO2 40 03/24/24 14:11 Documenting provider has reviewed patient's vital signs: yes General appearance: patient mechanically ventilated Eye Other: Small ecchymosis right eyelid Neck & C-Spine General: trachea midline and tracheostomy present (No exudate or bleeding - site appears clean); no tracheal deviation Chest Common normals: inspection of chest normal Chest: symmetrical chest wall rise Respiratory Other: Wheezes on right are decreased with more rhonchi. Left remains diminished. Cardio Other: RRR - currently in the 90's GI Inspection: normal to inspection and GI tube present Bladder/kidney exam: catheter in place Extremity Other: Trace edema Neuro Other: Does not spontaneously move extremities Psych Other: Somnolent
--- NOTE | 2024-03-24 15:00 | W.PM.PROCNOT ---
Date of procedure: 03/24/24 Procedure: Procedure Diagnostic and therapeutic flexible bronchoscopy Indication Pneumonia with mucus plugging Findings Large mucus plug in the right mainstem bronchus extending down to the right middle and lower lobes Anesthesia Moderate sedation (managed by me) 15 minutes. Versed 4mg IVP administered. Specimens Bronchoalveolar lavage of the right lower lobe Estimated blood loss None Complications None Description Informed consent was obtained after risks, benefits, and alternatives were discussed with the patient?s fatherwho provided consent on the patient's behalf as his guardian.? Time out was initiated to confirm the correct patient, site, and procedure with all present voicing in the affirmative. 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 The bronchoscopy was performed at the patient's bedside in the ICU. Moderate sedation was administered and supervised by myself with Versed 4mg was administered and adequate sedation was achieved. Towel was placed over the patient's eyes to prevent spillage of secretions. The inner cannula of the tracheostomy was removed and the swivel adapter was placed in circuit to allow insertion of the bronchoscope. The BFlex 2 Regular 5.0 bronchoscope was inserted into the circuit and passed into the trachea, advancing to the main yazan. A moderate amount of secretions were noted and suctioned.? As the bronchoscope advanced towards the main yazan, a large mucus plug was noted in the right mainstem bronchus.? This was suctioned, and as the bronchoscope was advanced, the plug was noted to be extending from the right middle and lower lobes.? Once this mucus plug was removed, further examination of the airways were performed.? The bronchoscope was then advanced through the right main bronchus to the right upper lobe, where the apical, posterior, and anterior segments were visualized.? The bronchoscope was advanced through the bronchus intermedius to the right middle lobe or the medial and lateral segments visualized.? The bronchoscope was then advanced to the right lower lobe superior, medial, anterior, lateral, and posterior basilar segments.? Once again, granulation tissue was noted in the right lower lobe carinii consistent with suction trauma. Diffuse mild inflammation was seen throughout. Mild scatted mucus plugging was noted, mostly in the right lower lobe, lesser in the right middle lobe. Next, bronchoscope was wedged into the right lower lobe and a BAL was obtained.? Following this, the bronchoscope was retracted to the main yazan and advanced through the left main bronchus to the left upper lobe where the upper division apicoposterior and anterior, as well as lingular superior and inferior segments were visualized.? The bronchoscope was then advanced into the left lower lobe where the superior, anteromedial, lateral, and posterior basilar segments visualized.? Only scattered mucus was noted in the left bronchial tree, along with mild inflammation. The right bronchial tree was once again scanned and remnant mucus plugs and secretions were removed.? The bronchoscope was withdrawn.? The inner cannula was inserted back into the tracheostomy and the patient was attached back on the ventilator circuit.? The family was updated of the findings and the patient?s condition. Surgeon: Leonel Roe Disposition: ICU
[2024-03-24 21:07] LABS: Vancomycin Trough 32.8 ug/mL (5.0-20.0)
--- NOTE | 2024-03-24 21:08 | PC.NURSE ---
Critcal Vancomycin trough called 32.8 results verified and will tiger text night hopsitalist.
--- NOTE | 2024-03-24 21:21 | PC.NURSE ---
night hospitalist contacted with critical Vancomycin trough and then was told to contact night pharmacy. told to hold off on 2100 dose and will be adjusted.
[2024-03-24] MEDS: METOPROLOL TARTRATE 25 MG TABLET G-TUBE (22:12)
[2024-03-24] MEDS: SODIUM HYPOCHLORITE 30 ML TOPICAL (22:13)
[2024-03-25] VITALS (40 sets, daily range): BP systolic 85–128; BP diastolic 45–68; PULSE 87–110; TEMP 36.5–36.6; O2SAT 92–100
[2024-03-25] MEDS: ARTIFICIAL TEARS 300 DROP/15 ML BOTTLE OP ×5 (00:30→23:11)
[2024-03-25] MEDS: PIPERACILLIN SODIUM/TAZOBACTAM 3.375 GM in 0.9 % SODIUM CHLORIDE 50 ML IV (01:09)
[2024-03-25 04:44] LABS: Basophils Absolute Auto 0.1 10^3/uL (0.0-0.1); Basophils Percent Auto 0.4 % (0.2-2.0); Eosinophils Absolute Auto 0.9 10^3/uL (0.0-0.7); Eosinophils Percent Auto 6.7 % (0.9-7.0); Hematocrit 30.2 % (42.0-54.0); Hemoglobin 8.6 g/dL (14.0-18.0); Immature Granulocytes Abs Auto 0.07 10^3/uL (0.00-0.03); Immature Granulocytes Pct Auto 0.5 % (0.0-0.5); Lymphocytes Absolute Auto 1.7 10^3/uL (1.2-3.8); Lymphocytes Percent Auto 12.7 % (20.5-60.0); Mean Corpuscular HGB Conc 28.5 g/dL (29.9-35.2); Mean Corpuscular Hemoglobin 25.4 pg (25.9-34.0); Mean Corpuscular Volume 89.1 fL (80.0-94.0); Mean Platelet Volume 11.4 fL (9.5-13.5); Monocytes Absolute Auto 0.8 10^3/uL (0.3-0.8); Monocytes Percent Auto 6.1 % (1.7-12.0); Neutrophils Percent Auto 73.6 % (43.0-75.0); Platelet Count 243 10^3/uL (150-450); Red Blood Count 3.39 10^6/uL (4.70-6.10); Red Cell Distribution Width 18.2 % (11.0-15.0); White Blood Count 13.6 10^3/uL (4.0-11.0)
[2024-03-25] MEDS: IPRATROPIUM/ALBUTEROL SULFATE 3 ML AMPUL.NEB IH ×4 (04:54→20:13)
[2024-03-25 05:07] LABS: Alanine Aminotransferase 28 U/L (16-63); Albumin Globulin Ratio 0.3; Albumin Level 1.7 g/dL (3.4-5.0); Alkaline Phosphatase 169 U/L (46-116); Anion Gap 6.9; Aspartate Amino Transferase 15 U/L (15-37); BUN Creatinine Ratio 10.8; Bilirubin Total 0.5 mg/dL (0.2-1.0); Carbon Dioxide 33.1 mmol/L (21.0-32.0); Chloride 104 mmol/L (98-107); Estimated GFR (African America 56 (>=60); Estimated GFR (Non-African Ame 46 (>=60); Globulin 5.1 g/dL; Glucose 88 mg/dL (74-106); Sodium 140 mmol/L (136-145); Total Protein 6.8 g/dL (6.4-8.2)
[2024-03-25] MEDS: GUAIFENESIN 200 MG/10 ML LIQUID 400 MG G-TUBE ×4 (05:32→20:56)
[2024-03-25] MEDS: OXYCODONE HCL 5 MG TABLET 10 MG PO ×3 (05:32→23:10)
[2024-03-25] MEDS: BACLOFEN 10 MG TABLET 5 MG FEED TUBE ×3 (05:34→23:10)
[2024-03-25] MEDS: GABAPENTIN 300 MG CAPSULE PO ×3 (05:34→23:10)
[2024-03-25] MEDS: SUCRALFATE 1 GM TABLET G-TUBE ×3 (05:34→23:11)
[2024-03-25] MEDS: OMEPRAZOLE 40 MG CAPSULE.DR G-TUBE (05:35)
[2024-03-25] MEDS: FUROSEMIDE 40 MG/4 ML VIAL 60 MG IVP (06:51)
[2024-03-25] MEDS: LEVOFLOXACIN IN DEXTROSE 5 % 750 MG/150 ML IV.SOLN 100 MG IV (06:53)
[2024-03-25 07:27] LABS: Allen Test POSITIVE (POSITIVE); Base Excess ABG 6.8 mmol/L (-2.0-2.0); Fractionated Inspired Oxygen 30 %; O2 Mode VENT; Oxygen Saturation ABG 92.3 %; Puncture Site L RADIAL; pH ABG 7.379 (7.350-7.450)
[2024-03-25 07:28] LABS: Rate 18; Tidal Volume 450; Vent Mode AC/VC
[2024-03-25 07:30] LABS: ABG PCO2 54.3 mmHg (35.0-45.0); PO2 ABG 59.7 mmHg (80.0-100.0)
--- NOTE | 2024-03-25 07:43 | PM.PLPN ---
Progress Note: A&P Assessment and Plan (1) HCAP (healthcare-associated pneumonia): Assessment and Plan: 1. Healthcare acquired pneumonia right lung. Cultures are still pending. s/p bronchoscopy 03/24/2024 with removal of mucus plugging from right lung. Prior bronchoscopy 01/22/2024 was positive for Klebsiella pneumoniae, Pseudomonas aeruginosa, and Streptococcus agalactiae. d/t worsening renal function, Zosyn was changed to Invanz and Levaquin was added. Need to pay careful attention to cultures as Invanz does not have good coverage with Pseudomonas and he was just on Levaquin. Continue with pulmonary toilet - vest for now, consider scheduled saline vs. Mucomyst outpatient. 2. Severe sepsis secondary to pneumonia. Lactate yesterday was 0.7. No further temperature spikes. WBC down only slightly, but that could be d/t bronchoscopy yesterday. CXR appeared worse yesterday s/p bronchoscopy because I instilled saline and agitated the secretions. 3. Vynnl-id-ejedlv hypoxic respiratory failure. FiO2 weaned down to 30% - improved from prior to bronchoscopy yesterday. pO2 was 59 - will have goal SpO2 88-92% to avoid hyperoxic-induced hypercapnia. 4. Qtahx-oh-bfriget hypercapnic respiratory failure. Improved with ventilator change tidal volume from 400 to 450mL. 5. Acute renal failure. Creatinine doubled from 0.81 to 1.67. Etiology unclear. 6. 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 Remains on Eliquis. Head CT did not show any evidence of intracranial hemorrhage. Subjective Subjective Interval history: Bronchoscopy was done yesterday with right bronchial mucus plugging. ABG was done after the bronchoscopy and he continued to have mild uzgam-ep-qefazmg hypercapnia. Adjusted ventilator (increased Vt to 450mL). Repeated ABG this morning, and it improved and is near his baseline - pH 7.379 and pCO2 54.3. Added vest external percussive device to see if it would help mobilize secretions. The patient remains somnolent. He is opening his eyes a little more, but then goes back to sleep. WBC has a miniscule decrease from yesterday (13.7 to 13.6). No further temp spikes. BUN normal range 18, but creatinine doubled from 0.81 to 1.67. Exam Constitutional Vital Signs, click to edit/add: Last Vital Signs Temp 97.8 F 03/25/24 00:00 Pulse 102 H 03/25/24 06:36 Resp 19 03/25/24 06:36 BP 115/66 03/25/24 06:51 Pulse Ox 93 L 03/25/24 06:36 O2 Del Method Mechanical Ventilator 03/25/24 05:00 O2 Flow Rate 80 03/23/24 01:10 FiO2 30 03/25/24 06:36 Documenting provider has reviewed patient's vital signs: yes General appearance: patient mechanically ventilated Eye Other: Small ecchymosis right eyelid Neck & C-Spine General: trachea midline and tracheostomy present (No exudate or bleeding - site appears clean); no tracheal deviation Chest Common normals: inspection of chest normal Chest: symmetrical chest wall rise Respiratory Other: Improved aeration of right lung - scattered mild crackles. Diminished on left. Cardio Other: Mild sinus tachycardia - regular rhyhtm (HR 102) GI Inspection: normal to inspection and GI tube present Bladder/kidney exam: catheter in place Extremity Other: Trace edema Neuro Other: Does not spontaneously move extremities Psych Other: Remains somnolent
--- NOTE | 2024-03-25 08:20 | P.PN_ITS ---
Progress Note: Subjective Subjective Interval history: Still not as alert as in the past. Exam Constitutional Vital Signs, click to edit/add: Last Vital Signs Temp 97.8 F 03/25/24 00:00 Pulse 102 H 03/25/24 06:36 Resp 19 03/25/24 06:36 BP 115/66 03/25/24 06:51 Pulse Ox 93 L 03/25/24 06:36 O2 Del Method Mechanical Ventilator 03/25/24 05:00 O2 Flow Rate 80 03/23/24 01:10 FiO2 30 03/25/24 06:36 Common normals: apparent distress (Moderate rest) Exam limitations: altered mental status Eye General eye: abnormal appearance of eye(s) Eyelid: eyelid(s) not normal (Little bruising over the eyelid,) Conjunctiva: conjunctiva(e) not normal (Right-sided sub conjunctival hemorrhage) Chest Common normals: inspection of chest normal Respiratory Common normals: no retractions; abnormal respiratory effort Auscultation: rales (New today), rhonchi (Persisting today) and diminished lung sounds GI Common normals: negative for Normal to inspection, nondistended, normoactive bowel sounds present (Peg tube in place, abdomen soft) Extremity Common normals: normal to inspection and full ROM General: edema (2-3+ edema today) Progress Note: Objective Labs Labs: Short CBC 03/25/24 Range/Units 04:10 WBC 13.6 H (4.0-11.0) 10^3/uL Hgb 8.6 L (14.0-18.0) g/dL Hct 30.2 L (42.0-54.0) % Plt Count 243 (150-450) 10^3/uL BMP 03/25/24 04:10 Sodium 140 Potassium 4.0 Chloride 104 Carbon Dioxide 33.1 H BUN 18.0 Creatinine 1.67 H Glucose 88 Calcium 9.0 Liver Function 03/25/24 Range/Units 04:10 Total Bilirubin 0.5 (0.2-1.0) mg/dL AST 15 (15-37) U/L ALT 28 (16-63) U/L Alkaline Phosphatase 169 H (46-116) U/L Albumin 1.7 L (3.4-5.0) g/dL Progress Note: A&P Assessment and Plan (1) HCAP (healthcare-associated pneumonia): (2) Acute UTI: (3) Sepsis: Plan Finding on admission: Fever of 102.5, sinus tachycardia, respiratory distress, significant hypotension with blood pressure 93/45, mean arterial pressure of 62, leukocytosis, CO2 retention, elevated liver function test secondary to healthcare acquired pneumonia resulting in severe sepsis with acute hypercapnic respiratory failure. Discussed care with pulmonology this morning, adjusted antibiotics secondary to acute renal failure. Check ammonia level for the alt ered mental status. S Staph infection noted on screening blood culture. Final blood culture pending., Altered mental status-likely secondary to the severe sepsis as outlined above- check ammonia level Acute renal failure likely secondary to IV antibiotics. He is 232% above his baseline creatinine. Baseline creatinine 0.72, 1.67 today. Fluid overload-edema worse, BNP now elevated, 1 dose of IV Lasix, still trying to protect kidneys. Bilateral pleural effusion-evaluation by pulmonology Cardiomegaly-consider echocardiogram but will hold off at this time not likely to change treatment plan Acute UTI due to Iverson catheter-culture pending, blood cultures pending Elevated liver function test on admission-improved today. 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 Not as responsive as typically but sounds like did not sleep significantly last night and obviously ill as outlined above. Subconjunctival hemorrhage, also bruising over the upper eyelid, head CT without significant findings around the eye Severe protein calorie malnutrition-resume tube feeds today History of blood clots, continue with Eliquis History of gastric bleed-continue with current medications Admission status: Patient was attended to be treated as an outpatient for his pneumonia, failing treatment and increasing respiratory distress and developing acute hypercapnic respiratory failure secondary to healthcare acquired pneumonia, medically necessary treatment will span more than 2 midnights, inpatient status. Overall condition worse today, minimum 2-3 more days. Culture still pending. Urinary Catheter Management Urinary Catheter Management Urethral: Cath placed during this visit: no
--- NOTE | 2024-03-25 08:27 | CM.NOTE ---
Rounds made with Dr. Phelps. Plan to order additional labs and change IV antibiotics. No discharge today.
--- NOTE | 2024-03-25 08:48 | REH.PTDLY ---
Physical Therapy Daily Note PT Daily Note/Assess Start: 03/23/24 11:48 Freq: Status: Active Protocol: Document 03/25/24 08:45 NIALL (Rec: 03/25/24 08:48 NIALL [id number]) Physical Therapy Daily Note/Assessment Time In 08:20 Time Out 08:40 Subjective Nursing in room with mom. Pt able to open eyes. Agreeable to therapy by blinking twice. Therapeutic Exercise Minutes (minutes) 8 Therapeutic Exercise Units 1 Therapeutic Exercise Treatment PROM to B LEs to reduce tightness and improve contractures. Pt blinks twice to say that the stretching feels good. Therapeutic Activity Minutes (minutes) 5 Therapeutic Activity Units 0 Therapeutic Activity Comments Repositioned pt with nursing to roll pt to opposite side, pt is a total assist. Total Therapy Minutes 13 Total Physical Therapy Units 1 Daily Note Summary PROM to legs to help reduce contractures. [facility] [place]
[2024-03-25 09:01] LABS: Ammonia 30 umol/L (11-32)
[2024-03-25] MEDS: JEVITY 1.5 CAL 237 ML LIQUID FEED TUBE ×4 (09:05→20:56)
[2024-03-25] MEDS: CHOLECALCIFEROL (VITAMIN D3) 25 MCG/1,000 UNITS TABLET FEED TUBE (09:06)
[2024-03-25] MEDS: SENNOSIDES 8.6 MG TABLET PO ×2 (09:06→20:56)
[2024-03-25] MEDS: CETIRIZINE HCL 10 MG TABLET PO (09:06)
[2024-03-25] MEDS: FOLIC ACID 1 MG TABLET G-TUBE (09:06)
[2024-03-25] MEDS: FERROUS SULFATE 325 MG TABLET G-TUBE (09:06)
[2024-03-25] MEDS: BUSPIRONE HCL 10 MG TABLET FEED TUBE ×2 (09:06→20:57)
[2024-03-25] MEDS: POLYETHYLENE GLYCOL 3350 17 GM POWDER PACKET PO (09:06)
[2024-03-25] MEDS: ESCITALOPRAM 10 MG TABLET G-TUBE (09:06)
[2024-03-25] MEDS: ERTAPENEM SODIUM 1 GM in 0.9 % SODIUM CHLORIDE 50 ML IV (09:07)
[2024-03-25] MEDS: SODIUM HYPOCHLORITE 30 ML TOPICAL (09:08)
[2024-03-25] MEDS: APIXABAN 5 MG TABLET PO ×2 (09:13→20:56)
[2024-03-25] MEDS: LINEZOLID IN DEXTROSE 5% 600 MG/300 ML PIGGYBACK 300 MG IV ×2 (10:39→23:10)
--- NOTE | 2024-03-25 10:41 | SWNOTE1 ---
Updates sent to [facility]. Updates included physician note from today, pulmonology note from yesterday and today, vitals, vent settings, labs, surgery note, PT note, and nursing notes.
[2024-03-25 13:09] LABS: Procalcitonin 0.18 ng/mL (0.00-0.08)
[2024-03-25] MEDS: METOPROLOL TARTRATE 25 MG TABLET G-TUBE (20:56)
[2024-03-26] VITALS (114 sets, daily range): BP systolic 89–127; BP diastolic 47–70; PULSE 70–109; TEMP 37.4; O2SAT 90–99
[2024-03-26] MEDS: JEVITY 1.5 CAL 237 ML LIQUID FEED TUBE ×6 (00:48→20:05)
[2024-03-26] MEDS: GUAIFENESIN 200 MG/10 ML LIQUID 400 MG G-TUBE ×4 (04:00→20:06)
[2024-03-26] MEDS: IPRATROPIUM/ALBUTEROL SULFATE 3 ML AMPUL.NEB IH ×4 (04:05→20:25)
[2024-03-26 05:04] LABS: Basophils Percent Auto 0.3 % (0.2-2.0); Eosinophils Absolute Auto 0.9 10^3/uL (0.0-0.7); Eosinophils Percent Auto 8.4 % (0.9-7.0); Hematocrit 28.3 % (42.0-54.0); Hemoglobin 8.2 g/dL (14.0-18.0); Immature Granulocytes Abs Auto 0.05 10^3/uL (0.00-0.03); Immature Granulocytes Pct Auto 0.5 % (0.0-0.5); Lymphocytes Absolute Auto 1.5 10^3/uL (1.2-3.8); Mean Corpuscular Hemoglobin 25.5 pg (25.9-34.0); Mean Corpuscular Volume 87.9 fL (80.0-94.0); Mean Platelet Volume 11.6 fL (9.5-13.5); Monocytes Absolute Auto 0.6 10^3/uL (0.3-0.8); Monocytes Percent Auto 5.9 % (1.7-12.0); Neutrophils Absolute Auto 7.1 10^3/uL (1.4-6.5); Neutrophils Percent Auto 69.9 % (43.0-75.0); Platelet Count 247 10^3/uL (150-450); Red Blood Count 3.22 10^6/uL (4.70-6.10); Red Cell Distribution Width 17.7 % (11.0-15.0); White Blood Count 10.2 10^3/uL (4.0-11.0)
[2024-03-26] MEDS: OXYCODONE HCL 5 MG TABLET 10 MG PO ×4 (05:09→22:53)
[2024-03-26] MEDS: ARTIFICIAL TEARS 300 DROP/15 ML BOTTLE OP ×3 (05:10→17:14)
[2024-03-26 05:27] LABS: Alanine Aminotransferase 20 U/L (16-63); Albumin Globulin Ratio 0.3; Albumin Level 1.7 g/dL (3.4-5.0); Alkaline Phosphatase 154 U/L (46-116); Anion Gap 8.1; Aspartate Amino Transferase 13 U/L (15-37); BUN Creatinine Ratio 9.6; Bilirubin Total 0.3 mg/dL (0.2-1.0); Calcium 8.9 mg/dL (8.5-10.1); Carbon Dioxide 33.6 mmol/L (21.0-32.0); Chloride 101 mmol/L (98-107); Estimated GFR (African America 39 (>=60); Estimated GFR (Non-African Ame 32 (>=60); Globulin 4.9 g/dL; Glucose 109 mg/dL (74-106); Potassium 3.7 mmol/L (3.5-5.1); Sodium 139 mmol/L (136-145); Total Protein 6.6 g/dL (6.4-8.2)
[2024-03-26] MEDS: BACLOFEN 10 MG TABLET 5 MG FEED TUBE ×3 (06:02→20:08)
[2024-03-26] MEDS: OMEPRAZOLE 40 MG CAPSULE.DR G-TUBE (06:02)
[2024-03-26] MEDS: GABAPENTIN 300 MG CAPSULE PO ×3 (06:02→20:07)
[2024-03-26] MEDS: SUCRALFATE 1 GM TABLET G-TUBE ×3 (06:03→20:07)
--- NOTE | 2024-03-26 06:25 | P.PN_ITS ---
Progress Note: Subjective Subjective Interval history: Much more alert today. I saw him late last night was alert as well. Exam Constitutional Vital Signs, click to edit/add: Last Vital Signs Temp 97.7 F 03/25/24 08:00 Pulse 107 H 03/26/24 04:19 Resp 26 H 03/26/24 04:19 BP 99/62 03/25/24 22:00 Pulse Ox 95 03/26/24 04:19 O2 Del Method Mechanical Ventilator 03/26/24 04:19 O2 Flow Rate 30 03/25/24 20:13 FiO2 30 03/26/24 04:19 Common normals: apparent distress (Moderate rest) Exam limitations: altered mental status Eye General eye: abnormal appearance of eye(s) Eyelid: eyelid(s) not normal (Little bruising over the eyelid,) Conjunctiva: conjunctiva(e) not normal (Right-sided sub conjunctival hemorrhage) Chest Common normals: inspection of chest normal Respiratory Common normals: no retractions; abnormal respiratory effort (Still dyspneic but more comfortable) Auscultation: rales (Minimal today), rhonchi (Improved from previous day) and diminished lung sounds GI Common normals: negative for Normal to inspection, nondistended, normoactive bowel sounds present (Peg tube in place, abdomen soft) Extremity Common normals: normal to inspection and full ROM General: edema (1-2+ edema today closer to his baseline) Progress Note: Objective Labs Labs: Short CBC 03/26/24 Range/Units 04:50 WBC 10.2 (4.0-11.0) 10^3/uL Hgb 8.2 L (14.0-18.0) g/dL Hct 28.3 L (42.0-54.0) % Plt Count 247 (150-450) 10^3/uL BMP 03/26/24 04:50 Sodium 139 Potassium 3.7 Chloride 101 Carbon Dioxide 33.6 H BUN 22.0 H Creatinine 2.29 H Glucose 109 H Calcium 8.9 Liver Function 03/26/24 Range/Units 04:50 Total Bilirubin 0.3 (0.2-1.0) mg/dL AST 13 L (15-37) U/L ALT 20 (16-63) U/L Alkaline Phosphatase 154 H (46-116) U/L Albumin 1.7 L (3.4-5.0) g/dL Progress Note: A&P Assessment and Plan (1) HCAP (healthcare-associated pneumonia): (2) Acute UTI: (3) Sepsis: Plan Finding on admission: Fever of 102.5, sinus tachycardia, respiratory distress, significant hypotension with blood pressure 93/45, mean arterial pressure of 62, leukocytosis, CO2 retention, elevated liver function test secondary to healthcare acquired pneumonia resulting in severe sepsis with acute hypercapnic respiratory failure. much improved from previous day. Still awaiting final results on cultures. Blood culture initially showed staph but not a species. Altered mental status-likely secondary to the severe sepsis as outlined above-improved from previous day Acute renal failure likely secondary to IV antibiotics. Creatinine further elevated today. I still suspect this is likely secondary to antibiotics given. He has been off those for 24 hours but anticipate improvement tomorrow. 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 Not as responsive as typically but sounds like did not sleep significantly last night and obviously ill as outlined above. Subconjunctival hemorrhage, also bruising over the upper eyelid, head CT without significant findings around the eye Severe protein calorie malnutrition-resume tube feeds today History of blood clots, continue with Eliquis History of gastric bleed-continue with current medications Admission status: Patient was attended to be treated as an outpatient for his pneumonia, failing treatment and increasing respiratory distress and developing acute hypercapnic respiratory failure secondary to healthcare acquired pneumonia, medically necessary treatment will span more than 2 midnights, inpatient status. Improved today. If continues to make significant improvement he could be transferred back to his facility tomorrow Urinary Catheter Management Urinary Catheter Management Urethral: Cath placed during this visit: no
[2024-03-26] MEDS: BUSPIRONE HCL 10 MG TABLET FEED TUBE ×2 (08:18→20:05)
[2024-03-26] MEDS: CHOLECALCIFEROL (VITAMIN D3) 25 MCG/1,000 UNITS TABLET FEED TUBE (08:18)
[2024-03-26] MEDS: SENNOSIDES 8.6 MG TABLET PO ×2 (08:18→20:06)
[2024-03-26] MEDS: CETIRIZINE HCL 10 MG TABLET PO (08:19)
[2024-03-26] MEDS: POLYETHYLENE GLYCOL 3350 17 GM POWDER PACKET PO (08:19)
[2024-03-26] MEDS: FOLIC ACID 1 MG TABLET G-TUBE (08:19)
[2024-03-26] MEDS: FERROUS SULFATE 325 MG TABLET G-TUBE (08:19)
[2024-03-26] MEDS: ESCITALOPRAM 10 MG TABLET G-TUBE (08:19)
[2024-03-26] MEDS: METOPROLOL TARTRATE 25 MG TABLET G-TUBE ×2 (08:22→20:06)
[2024-03-26] MEDS: APIXABAN 5 MG TABLET PO ×2 (08:22→20:05)
[2024-03-26] MEDS: 0.9 % SODIUM CHLORIDE 250 ML 10 ML IV (08:49)
[2024-03-26] MEDS: ERTAPENEM SODIUM 1 GM in 0.9 % SODIUM CHLORIDE 50 ML IV (08:49)
--- NOTE | 2024-03-26 08:54 | CM.NOTE ---
06:[address] Phelps discussed labs and awaiting cultures and need to continue to monitor kidney function. No discharge planned for today
[2024-03-26] MEDS: LINEZOLID IN DEXTROSE 5% 600 MG/300 ML PIGGYBACK 300 MG IV ×2 (09:24→22:53)
[2024-03-26] MEDS: SODIUM HYPOCHLORITE 30 ML TOPICAL (09:26)
--- NOTE | 2024-03-26 10:09 | REH.PTDLY ---
Physical Therapy Daily Note PT Daily Note/Assess Start: 03/23/24 11:48 Freq: Status: Active Protocol: Document 03/26/24 10:04 NIALL (Rec: 03/26/24 10:08 NIALL [id number]) Physical Therapy Daily Note/Assessment Time In 09:43 Time Out 09:55 Subjective Pt agrees to therapy with two blinks meaning yes. Father in room with pt reading. Therapeutic Exercise Minutes (minutes) 9 Therapeutic Exercise Units 1 Therapeutic Exercise Treatment Performed PROM to B LEs to reduce stiffness. Pt denies any pain when asked with one blink meaning no. Performed ankle, knee, and hip PROM 10x ea direction. Assisted nursing with bed mobility of turning pt to opposite side to prevent bed sores. Total Therapy Minutes 9 Total Physical Therapy Units 1 Daily Note Summary PROM to B LEs to help reduce tightness and for pt comfort. Pt denies pain when performing .
[2024-03-26] MEDS: SODIUM CHLORIDE 3% INHALATION 15 ML NEB 4 ML IH ×2 (10:43→20:25)
[2024-03-26 13:11] LABS: Procalcitonin 1.05 ng/mL (0.00-0.08)
--- NOTE | 2024-03-26 14:24 | SWNOTE1 ---
SW sent updates to [facility] including; physician notes, PT note, vitals, nursing notes, labs, and med list.
[2024-03-27] VITALS (53 sets, daily range): BP systolic 94–120; BP diastolic 54–74; PULSE 83–900; TEMP 36.6–37.3; O2SAT 92–96
[2024-03-27] MEDS: ARTIFICIAL TEARS 300 DROP/15 ML BOTTLE OP ×3 (00:07→11:47)
[2024-03-27] MEDS: JEVITY 1.5 CAL 237 ML LIQUID FEED TUBE ×3 (00:07→11:46)
[2024-03-27] MEDS: IPRATROPIUM/ALBUTEROL SULFATE 3 ML AMPUL.NEB IH ×3 (04:06→14:39)
[2024-03-27] MEDS: GUAIFENESIN 200 MG/10 ML LIQUID 400 MG G-TUBE ×3 (04:19→14:38)
[2024-03-27] MEDS: OMEPRAZOLE 40 MG CAPSULE.DR G-TUBE ×2 (05:09→11:47)
[2024-03-27] MEDS: OXYCODONE HCL 5 MG TABLET 10 MG PO ×3 (05:09→16:17)
[2024-03-27] MEDS: GABAPENTIN 300 MG CAPSULE PO ×2 (05:09→14:38)
[2024-03-27] MEDS: SUCRALFATE 1 GM TABLET G-TUBE ×2 (05:09→14:38)
[2024-03-27] MEDS: LEVOFLOXACIN IN DEXTROSE 5 % 750 MG/150 ML IV.SOLN 100 MG IV (05:12)
[2024-03-27] MEDS: BACLOFEN 10 MG TABLET 5 MG FEED TUBE ×2 (05:12→14:39)
[2024-03-27 06:06] LABS: Basophils Absolute Auto 0.1 10^3/uL (0.0-0.1); Basophils Percent Auto 0.7 % (0.2-2.0); Eosinophils Absolute Auto 0.8 10^3/uL (0.0-0.7); Eosinophils Percent Auto 7.6 % (0.9-7.0); Hematocrit 28.1 % (42.0-54.0); Hemoglobin 8.2 g/dL (14.0-18.0); Immature Granulocytes Abs Auto 0.07 10^3/uL (0.00-0.03); Immature Granulocytes Pct Auto 0.7 % (0.0-0.5); Lymphocytes Absolute Auto 1.9 10^3/uL (1.2-3.8); Mean Corpuscular HGB Conc 29.2 g/dL (29.9-35.2); Mean Corpuscular Hemoglobin 25.5 pg (25.9-34.0); Mean Corpuscular Volume 87.5 fL (80.0-94.0); Mean Platelet Volume 11.9 fL (9.5-13.5); Monocytes Absolute Auto 0.7 10^3/uL (0.3-0.8); Monocytes Percent Auto 6.8 % (1.7-12.0); Neutrophils Absolute Auto 6.9 10^3/uL (1.4-6.5); Neutrophils Percent Auto 66.2 % (43.0-75.0); Platelet Count 274 10^3/uL (150-450); Red Blood Count 3.21 10^6/uL (4.70-6.10); Red Cell Distribution Width 18.3 % (11.0-15.0); White Blood Count 10.4 10^3/uL (4.0-11.0)
[2024-03-27 06:28] LABS: Alanine Aminotransferase 18 U/L (16-63); Albumin Globulin Ratio 0.3; Albumin Level 1.7 g/dL (3.4-5.0); Alkaline Phosphatase 143 U/L (46-116); Anion Gap 8.4; Aspartate Amino Transferase 12 U/L (15-37); BUN Creatinine Ratio 9.4; Bilirubin Total 0.3 mg/dL (0.2-1.0); Calcium 8.9 mg/dL (8.5-10.1); Carbon Dioxide 34.8 mmol/L (21.0-32.0); Chloride 104 mmol/L (98-107); Estimated GFR (African America 32 (>=60); Estimated GFR (Non-African Ame 27 (>=60); Glucose 91 mg/dL (74-106); Potassium 4.2 mmol/L (3.5-5.1); Sodium 143 mmol/L (136-145); Total Protein 6.7 g/dL (6.4-8.2)
--- NOTE | 2024-03-27 08:21 | P.DS_ITS ---
DS: Providers Provider Date of admission: 03/23/24 03:41 Primary care physician: ALISA DELATORRE Consults: 03/23/24 Consult to Dietitian Routine Reason for consultation: decubitis wound, gastric tube fed Wound Assessment Consult Routine Consulting Provider: Wilder Phelps Reason for consultation: decub ulcer with wound vac dressing only to his coccyx 03/23/24 05:54 Consult to Pharmacy Routine Consulting Provider: Reason for consultation: Please [place] me when Med Rec is Updated Has provider been notified: No Occupational Therapy Eval and Treat Routine Reason for consultation: Only if needed for Rehab Has provider been notified: No Physical Therapy Eval and Treat Routine Reason for consultation: Eval and Treat Has provider been notified: No 03/23/24 07:00 Consult to Pulmonology Routine Consulting Provider: Leonel Roe Reason for consultation: Chronic respiratory failure s/p trach; [place] Has provider been notified: No 03/23/24 09:00 Occupational Therapy Eval and Treat Routine Reason for consultation: Debility Has provider been notified: No Physical Therapy Eval and Treat Routine Reason for consultation: Debility Has provider been notified: No DS: Diagnosis Discharge Diagnosis (1) HCAP (healthcare-associated pneumonia): (2) Acute UTI: (3) Sepsis: Plan Finding on admission: Fever of 102.5, sinus tachycardia, respiratory distress, significant hypotension with blood pressure 93/45, mean arterial pressure of 62, leukocytosis, CO2 retention, elevated liver function test secondary to healthcare acquired pneumonia resulting in severe sepsis with acute hypercapnic respiratory failure. much improved from previous day. Still awaiting final results on cultures. Blood culture initially showed staph but not a species. Altered mental status-likely secondary to the severe sepsis as outlined above- improved from previous day Acute upper gastrointestinal blood loss anemia secondary to acute upper gastrointestinal bleeding-stable at discharge Acute renal failure likely secondary to IV antibiotics. Creatinine further elevated today. I still suspect this is likely secondary to antibiotics given. He has been off those for 24 hours but anticipate improvement tomorrow. 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 Not as responsive as typically but sounds like did not sleep significantly last night and obviously ill as outlined above. Subconjunctival hemorrhage, also bruising over the upper eyelid, head CT without significant findings around the eye Severe protein calorie malnutrition-resume tube feeds today History of blood clots, continue with Eliquis History of gastric bleed-continue with current medications Admission status: Patient was attended to be treated as an outpatient for his pneumonia, failing treatment and increasing respiratory distress and developing acute hypercapnic respiratory failure secondary to healthcare acquired pneumonia, medically necessary treatment will span more than 2 midnights, inpatient status. Improved today. If continues to make significant improvement he could be transferred back to his facility tomorrow DS: Summary Hospital Course Hospital Course: Patient admitted with Fever of 102.5, sinus tachycardia, respiratory distress, significant hypotension with blood pressure 93/45, mean arterial pressure of 62, leukocytosis, CO2 retention, elevated liver function test secondary to healthcare acquired pneumonia resulting in severe sepsis with acute hypercapnic respiratory failure. Patient did not respond to initial antibiotic choices, those were adjusted to ertapenem, levofloxacin, linezolid. He did receive doses of amikacin and vancomycin based on previous culture results. He developed acute renal failure secondary to those antibiotics. His kidney function is up a little bit today. Will give Bactrim a little bit of fluids before discharge. Medically respiratory howard he is much improved. Mental status is much improved. Does have staph growing in 1 blood culture, with white blood cell count down to normal he is likely responding to these 3 agents. Will maintain those 3 until all final cultures blood, sputum, urine have returned. Patient also had acute upper gastrointestinal blood loss anemia secondary to acute upper gastrointestinal bleeding-on omeprazole and Carafate, increase the dose of the omeprazole, hemoglobin has been stable over the last 24 hours or not continuing to bleed but will need to be monitored as an outpatient Medications see list. Follow-up PCP at his long-term care facility Time Spent with Patient Time attestation: Total time spent providing and/or coordinating discharge services: Exam Constitutional Vital Signs, click to edit/add: Last Vital Signs Temp 97.9 F 03/27/24 00:32 Pulse 99 H 03/27/24 06:10 Resp 18 03/27/24 05:52 BP 110/73 03/27/24 06:00 Pulse Ox 95 03/27/24 06:10 O2 Del Method Mechanical Ventilator 03/27/24 04:15 O2 Flow Rate 30 03/25/24 20:13 FiO2 30 03/27/24 04:15 Common normals: apparent distress (Moderate rest) Exam limitations: altered mental status Eye General eye: abnormal appearance of eye(s) (Does have some drainage from the left eye.) Eyelid: eyelid(s) not normal (Little bruising over the eyelid,) Conjunctiva: conjunctiva(e) not normal (Right-sided sub conjunctival hemorrhage) Chest Common normals: inspection of chest normal Respiratory Common normals: no retractions; abnormal respiratory effort (Still dyspneic but more comfortable) Auscultation: rales (Persisting but still overall improved from 2 to 3 days ago), rhonchi (Stable from previous day.) and diminished lung sounds GI Common normals: negative for Normal to inspection, nondistended, normoactive bowel sounds present (Peg tube in place, abdomen soft) Extremity Common normals: normal to inspection and full ROM General: edema (1-2+ edema today closer to his baseline) DS: Data Data Completed and Pending Labs on day of discharge: Labs from last 24 hours 03/27/24 03/24/24 05:20 08:00 WBC 10.4 RBC 3.21 L Hgb 8.2 L Hct 28.1 L MCV 87.5 MCH 25.5 L MCHC 29.2 L RDW 18.3 H Plt Count 274 MPV 11.9 Neut % (Auto) 66.2 Lymph % (Auto) 18.0 L [place] % (Auto) 6.8 Eos % (Auto) 7.6 H Baso % (Auto) 0.7 Neut # (Auto) 6.9 H Lymph # (Auto) 1.9 [place] # (Auto) 0.7 Eos # (Auto) 0.8 H Baso # (Auto) 0.1 Abs Immat Gran (auto) 0.07 H Imm/Tot Granulo (auto) 0.7 H Sodium 143 Potassium 4.2 Chloride 104 Carbon Dioxide 34.8 H Anion Gap 8.4 BUN 25.0 H Creatinine 2.66 H Est GFR ( Amer) 32 L Est GFR (Non-Af Amer) 27 L BUN/Creatinine Ratio 9.4 Glucose 91 Calcium 8.9 Total Bilirubin 0.3 AST 12 L ALT 18 Alkaline Phosphatase 143 H NT-Pro-B Natriuret Pep 220.0 Total Protein 6.7 Albumin 1.7 L Globulin 5.0 Albumin/Globulin Ratio 0.3 Procalcitonin 1.05 H Preliminary micro results at discharge 03/23/24 23:49 - Preliminary Sputum Spc Sputum Suction Trap 03/24/24 13:00 - Preliminary Bronchial Alveo Lavage Pseudomonas aeruginosa 03/24/24 13:00 - Preliminary Bronchial Alveo Lavage 03/24/24 13:00 - Preliminary Bronchial Alveo Lavage 03/23/24 01:05 - Preliminary Blood Discharge Plan Discharge Disposition: Xfer LTC Condition: Serious Discharge Medications: New neomycin-polymyxin B-dexameth 3.5mg/mL-10,000 unit/mL-0.1 % Drops,Suspension 1 drp ophthalmic (eye) QID Qty: 5 0RF linezolid in dextrose 5% 600 mg/300 mL Piggyback 600 mg IV Q12H Qty: 3000 0RF levofloxacin in D5W 750 mg/150 mL Piggyback 750 mg IV Q48H Qty: 3600 0RF Ertapenem Sodium [Invanz] 1 GM 0.9 % Sodium Chloride [Sodium Chloride 0.9% 50 ml] 50 ML 100 mls/hr IV Q24H Ordered By: Wilder Phelps MD Last Taken: 03/27/24 08:42 100 mls/hr Continued alprazolam 1 mg tablet 1 mg PO TID PRN (Reason: anxiety) Eliquis 5 mg tablet 5 mg PO Q12H baclofen 5 mg tablet 5 mg feeding tube Q8H escitalopram oxalate 10 mg tablet 10 mg feeding tube DAILY Rx Instructions: G-TUBE gabapentin 250 mg/5 mL solution 300 mg feeding tube TID metoprolol tartrate 25 mg tablet 25 mg feeding tube Q12H Patient Comments: HOLD FOR SBP < 100 HOLD FOR HR < 60 oxycodone 10 mg tablet 10 mg feeding tube Q6H acetaminophen [Pain Relief (acetaminophen)] 325 mg tablet 650 mg feeding tube Q4H PRN (Reason: fever or pain) Rx Instructions: GTUBE All Day Allergy (cetirizine) 10 mg capsule 10 mg PO DAILY polyethylene glycol 3350 [ClearLax] 17 gram/dose powder 17 g PO DAILY sennosides [Keena-jigar] 8.6 mg tablet 8.6 mg PO BID esomeprazole magnesium [address] for susp in packet 40 mg G-tube DAILY sucralfate 1 gram tablet 1 g feeding tube TID buspirone 5 mg tablet 10 mg feeding tube BID Rx Instructions: GTUBE melatonin 3 mg capsule 3 mg PO .QHS Rx Instructions: G-TUBE Artificial Tears (cmc) 1 % drops 1 drp ophthalmic (eye) Q6H Glucagon Emergency Kit (human) 1 mg recon soln 1 mg subcut PRN PRN (Reason: hypoglycemia) Rx Instructions: until target blood sugar attained potassium chloride 10 mEq Tablet,Er Particles/Crystals 20 meq G-tube BID Qty: 120 11RF ferrous sulfate [Feosol] 325 mg (65 mg iron) tablet 325 mg feeding tube DAILY folic acid 1 mg tablet 1 mg feeding tube DAILY ipratropium-albuterol 0.5 mg-3 mg(2.5 mg base)/3 mL solution for nebulization 3 ml INHALATION Q8H cholecalciferol (vitamin D3) 25 mcg (1,000 unit) capsule 1,000 unit feeding tube DAILY Isosource HN 0.05 gram- 1.2 kcal/mL liquid 300 ea feeding tube .Q4hour Rx Instructions: Isosource 1.2 300ml bolus. Administer first bolus at 275mL then advance to 300mL for next bolus. May use formulary interchange per RD recommendation sodium chloride 3 % Solution For Nebulization 4 ml inhalation Q6H PRN (Reason: secretions) Liquituss GG 200 mg/5 mL liquid 400 mg feeding tube .q12 Print Language: Luxembourgish [employer] Instructions: Patient is returning to [facility] long-term. Forms: Portal Instructions
[2024-03-27] MEDS: APIXABAN 5 MG TABLET PO (08:41)
[2024-03-27] MEDS: FOLIC ACID 1 MG TABLET G-TUBE (08:42)
[2024-03-27] MEDS: CHOLECALCIFEROL (VITAMIN D3) 25 MCG/1,000 UNITS TABLET FEED TUBE (08:42)
[2024-03-27] MEDS: BUSPIRONE HCL 10 MG TABLET FEED TUBE (08:42)
[2024-03-27] MEDS: SENNOSIDES 8.6 MG TABLET PO (08:42)
[2024-03-27] MEDS: METOPROLOL TARTRATE 25 MG TABLET G-TUBE (08:42)
[2024-03-27] MEDS: ESCITALOPRAM 10 MG TABLET G-TUBE (08:42)
[2024-03-27] MEDS: FERROUS SULFATE 325 MG TABLET G-TUBE (08:42)
[2024-03-27] MEDS: ERTAPENEM SODIUM 1 GM in 0.9 % SODIUM CHLORIDE 50 ML IV (08:42)
[2024-03-27] MEDS: CETIRIZINE HCL 10 MG TABLET PO (08:44)
[2024-03-27] MEDS: 0.9 % SODIUM CHLORIDE 500 ML 250 ML IV (08:44)
--- NOTE | 2024-03-27 08:54 | CM.NOTE ---
Rounds made with Dr. Phelps. 500cc IVF bolus and potential discharge back to [facility] with IV antibiotics.
[2024-03-27] MEDS: NEOMYCIN/POLYMYXIN B/DEXAMETHA OP SUSP 100 DROP/5 ML BOTTLE OP ×2 (08:59→11:47)
--- NOTE | 2024-03-27 08:59 | SWNOTE1 ---
Pt is ready for dc back to [facility]. He will be dc with PICC line and 3 IV antibiotics. SW has voicemail and email out to Raquel at [facility] to make sure pt can return on those without precert.
--- NOTE | 2024-03-27 09:26 | SWNOTE1 ---
DAMEON attempted to call [facility] again, no answer from admissions. DAMEON sent text message to Raquel in admissions.
[2024-03-27] MEDS: LINEZOLID IN DEXTROSE 5% 600 MG/300 ML PIGGYBACK 300 MG IV (09:41)
--- NOTE | 2024-03-27 10:04 | SWNOTE1 ---
DAMEON received an email back from Raquel at [facility] and pt is good to come back on the 3 IV antibiotics. He will return halfway. DAMEON took CRF back to nursing and will wait for nursing to let SW know when he is ready for dc.
[2024-03-27 10:13] LABS: Internal Control Within Normal Limits; Occult Blood Positive
--- NOTE | 2024-03-27 10:57 | SWNOTE1 ---
Pt is ready for dc back to [place]. DAMEON did send over dc med rec to [place] and updated labs. DAMEON called [facility] and they are not able to be here until 6:00. DAMEON called [facility] and they have no availability today. DAMEON called [facility] back and they are coming around 5:00 now. SW completed paperwork for [facility] and updated packet and took back to ICU. Patient is returning detention.
--- NOTE | 2024-03-27 12:07 | US_ITS ---
[facility] [place] [id number] Patient Name: LOLIS QUINONES MRN: [id number] date: 1985 Sex: M Assigned Patient Location: ICU Current Patient Location: ICU Accession/Order Number: [id number] Exam Date: 03/27/2024 12:30 Report Date: 03/27/2024 13:17 At the request of: JEFF VERDUZCO Procedure: US soft tissue head and neck EXAMINATION: US soft tissue head and neck HISTORY: Left neck mass ; patient on ventilator with left cheek swelling and redness COMPARISON: No relevant comparison available. FINDINGS: Trace amount of subcutaneous edema within left cheek when compared to right cheek. No mass or fluid collection. US/US soft tissue head and neck IMPRESSION: 1. Trace amount of subcutaneous edema. Otherwise unremarkable left cheek soft tissues. Electronically authenticated by: JOSE DENT Date: 03/27/2024 13:17
--- NOTE | 2024-03-27 14:01 | CT_ITS ---
The [address] [address] Patient Name: LOLIS QUINONES MRN: [id number] date: 1985 Sex: M Assigned Patient Location: ICU Current Patient Location: ICU Accession/Order Number: [id number] Exam Date: 03/27/2024 14:15 Report Date: 03/27/2024 15:10 At the request of: JEFF VERDUZCO Procedure: CT soft tissue neck wo con EXAM: CT soft tissue neck wo con HISTORY: Swelling and redness over the left cheek. COMPARISON: Ultrasound performed earlier the same day. TECHNIQUE: A noncontrast scan was performed. Sagittal and coronal reformatted images were produced. Dose reduction techniques were achieved by using automated exposure control and/or adjustment of mA and/or kV according to patient size and/or use of iterative reconstruction technique. FINDINGS: Sensitivity of the exam is reduced by the lack of IV contrast. No obvious solid or cystic masses are seen. There are no pathologically enlarged lymph nodes. No focal abnormality is seen directly under the BB marker on the left side of the neck. The salivary glands are grossly normal in size and appearance. The thyroid gland is normal. The tracheostomy tube is in good position. There is a partially visualized right sided PICC line. The epiglottis and aryepiglottic folds are grossly normal. No suspicious or destructive bone lesions are seen. There are surgical changes of anterior fusion of the lower cervical spine. Mucosal thickening is seen extensively in the visualized paranasal sinuses. The rest of the visualized structures are grossly normal in appearance. CT/CT soft tissue neck wo con IMPRESSION: Limited but grossly negative for an acute process involving the soft tissues of the left cheek. Extensive sinus disease. Electronically authenticated by: NAVEEN NAVA Date: 03/27/2024 15:10
[2024-03-27] MEDS: SODIUM CHLORIDE 3% INHALATION 15 ML NEB 4 ML IH (14:40)
== END 2024-03-27 18:12 | DRG 870 ==
LOC: ER 02:50 → ICU 03:43
PROVIDERS: Internal Medicine; Admitting Provider Family Medicine; Emergency Provider Emergency Medicine; PCP Internal Medicine; Visit Provider Family Medicine
DX: A41.52 Sepsis due to Pseudomonas (principal); L89.324 Pressure ulcer of left buttock, stage 4; E43 Unspecified severe protein-calorie malnutrition; G83.5 Locked-in state; J18.9 Pneumonia, unspecified organism; J96.21 Acute and chronic respiratory failure with hypoxia; J96.22 Acute and chronic respiratory failure with hypercapnia; T83.511A Infection and inflammatory reaction due to indwelling urethral catheter, initial encounter; N39.0 Urinary tract infection, site not specified; E87.29 Other acidosis; T17.590A Other foreign object in bronchus causing asphyxiation, initial encounter; J90 Pleural effusion, not elsewhere classified; D62 Acute posthemorrhagic anemia; K92.2 Gastrointestinal hemorrhage, unspecified; N17.9 Acute kidney failure, unspecified; Z99.11 Dependence on respirator [ventilator] status; A41.54 Sepsis due to Acinetobacter baumannii; D50.9 Iron deficiency anemia, unspecified; Y95 Nosocomial condition; R79.89 Other specified abnormal findings of blood chemistry; I69.398 Other sequelae of cerebral infarction; I51.7 Cardiomegaly; H11.31 Conjunctival hemorrhage, right eye; Z93.1 Gastrostomy status; Z93.0 Tracheostomy status; E66.9 Obesity, unspecified; R65.20 Severe sepsis without septic shock; Z20.822 Contact with and (suspected) exposure to COVID-19; G40.901 Epilepsy, unspecified, not intractable, with status epilepticus; Z68.31 Body mass index [BMI] 31.0-31.9, adult; Z79.01 Long term (current) use of anticoagulants; Z79.899 Other long term (current) drug therapy; T36.95XA Adverse effect of unspecified systemic antibiotic, initial encounter; B95.62 Methicillin resistant Staphylococcus aureus infection as the cause of diseases classified elsewhere
CPT/HCPCS: 36415; 36569; 36592; 36600; 70450; 70490; 71045; 76536; 80053; 80202; 81001; 82140; 82805; 83605; 83880; 84145; 85025; 87040; 87070; 87076; 87077; 87086; 87102; 87116; 87150; 87186; 87205; 87206; 87635; 87811; 89220; 93005; 94002; 94003; 94640; 94667; 94668; 94761; 96365; 96366; 96367; 96368; 96375; 97110; 97161; 99285; C1887; G0328; J0278; J1335; J1940; J2020; J2250; J2270; J2405; J2543; J3370

== ENCOUNTER 2024-04-17 17:11 | Outpatient (REF) | payer OTHER, SELFPAY ==
--- OUTSIDE RECORDS SUMMARY | 2024-04-17 17:21 | XMS_ITS | CCD ---
Author Organization [facility] CliniSyri Care Team Providers Care 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 Name Role Phone Christine Ochoa Attending Unavailable ELAINE BHATIA Primary Care Unavailable SELF, REFERRED Referring Unavailable DAT PERALTA Admitting Unavailable Olexa, Tayler Unavailable KRIS, DR ELAINE Alvarado Primary Care Unavailable RHONDA, DR FLORENCIO Rodas Admitting Unavailable RHONDA, DR FLORENCIO Rodas Attending Unavailable RHONDA, DR FLORENCIO Rodas Consulting Unavailable KRIS, DR ELAINE Alvarado Primary Care Unavailable BG, DR HUI David Admitting Unavailabl e REINVIRGIL, DR HUI David Attending Unavailabl e REINECK, DR HUI David Consulting Unavailabl e OLEXA, TAYLER Admitting Unavailable OLEXA, TAYLER Attending Unavailable KRIS, DR ELAINE Alvarado Primary Care Unavailable Yandel, DR Ochoa Consulting Unavailable JULIA, TAYLER Consulting Unavailable SAMSA, HAROLDO Admitting Unavailable SAM, HAROLDO Attending Unavailable KRIS, DR ELAINE Alvarado Primary Care Unavailable Yandel, DR Ochoa Consulting Unavailable SAM, HAROLDO Consulting Unavailable KRIS, DR ELAINE Alvarado [...] DR ELAINE Alvarado Primary Care Unavailable JYOTSNA RODGERS Admitting Unavailable JYOTSNA RODGESR Attending Unavailable Yandel, DR Ochoa Consulting Unavailable JYOTSNA RODGERS Consulting Unavailable ELAINE PONCE Primary Care Physician [phone] Cj ALANIS Attending Unavailable Cj ALANIS Attending Unavailable ESRGEI ROOT Referring Unavailable SERGEI ROOT Primary Care Unavailable SERGEI ROOT Referring Unavailable SERGEI ROOT Primary Care Unavailable SERGEI ROOT Primary Care Unavailable CHEHADE, ADOLFO E Attending Unavailable ADOLFO VALENTINE E Attending Unavailable ADOLFO VALENTINE E Referring Unavailable SERGEI ROOT Primary Care Unavailable CHEHADE, ADOLFO E Attending Unavailable SERGE, ADOLFO E Referring Unavailable SERGEI ROOT Primary Care Unavailable Unavailable Primary Care Provider UnavailNIGEL Nayak Attending Unavailable SERGEI ALATORRE Unavailable NIMA SCHRADER Admitting Unavailable IVAN COOK Referring Unavailable CAL MORRIS Attending Unavailable TONIA TARANGO Referring Unavailable Dk CASTILLO MD, Daniel B Primary Care Provider JF WALDRON Attending Unavailable SERGEI ROOT II Primary Care Unavailable FLORINHAMIRTA, ADOLFO Referring Unavailable MASSIEL, MARCO ANTONIO Admitting Unavailable VARUN FUNEZ Attending Unavailable Allergies Allergy Classification Reported Allergen(s) Allergy Type Date of Onset Reaction(s) Facility Lincosamides (antibiotic) (1 source) Clindamycin Drug Allergy 7 Unknown [facility] Opioid Agonists (1 source) fentaNYL Drug Allergy 5 Shortness of Breath [facility] Work Phone: Quinolones (antibiotic) (1 source) Ciprofloxacin Drug Allergy 9 Unknown [facility] Serotonin Reuptake Inhibitors (SSRIs) (1 source) FLUoxetine Drug Allergy 3 Mental Status Change, Other: See Comments [facility] Sodium Chloride (1 source) Sodium Chloride Drug Allergy 4 Unknown [facility] (7 sources) fentaNYL; Translations: [fentaNYL] Drug Allergy 5 [facility] Repository (1 source) alpha blockers; Translations: [alpha blockers] Propensity to adverse reactions (disorder) 8 [facility] Repository (11 sources) Angiotensin Converting Enzyme (Jorge) Inhibitors; Translations: [Angiotensin-conv erting enzyme inhibitor agent (substance)] Propensity to adverse reactions 9 Eruption of skin (disorder), Rash, Unknown [facility] (14 sources) fentaNYL; Translations: [fentanyl] Drug Allergy 5 anaphylaxis, Moderate (severity modifier) (qualifier value), Shortness of Breath [facility] (1 source) Ciprofloxacin Drug Allergy 9 [facility] Repository (4 sources) Clindamycin; Translations: [CALCIUM CHANNEL BLOCKING AGENTS-DIHYDROPYR IDINES] Drug Allergy 7 [facility] Repository (9 sources) FLUoxetine; Translations: [fluoxetine] Drug Allergy 3 Suicidal behavior (finding), Mental Status Change, Other: See Comments [facility] (1 source) Adrenergic Beta-Antagonists; Translations: [beta blockers] Propensity to adverse reactions (disorder) [facility] Repository (6 sources) Ciprofloxacin; Translations: [ciprofloxacin] Drug Allergy 9 Unknown [facility] Repository (6 sources) Sodium Chloride; Translations: [sodium chloride] Drug Allergy 4 Unknown [facility] Repository (6 sources) beta-Blocking agent; Translations: [BETA-BLOCKERS (BETA-ADRENERGIC BLOCKING AGTS)] Drug Allergy 4 Unknown [facility] (5 sources) Clindamycin; Translations: [CLINDAMYCIN] Drug Allergy 7 Unknown [facility] (5 sources) Calcium Channel Blocking Agents-Dihydropyr idines Drug Allergy 7 Rash [facility] Medications Current Medications Medication Drug Class(es) Dates Sig (Normalized) Sig (Original) acetaminophen 325 mg oral tablet (11 sources) Start: 10-23-2023 take 2 tablets enteral [...] hours as needed for fever (specify temp.). albuterol 0.83 mg/ml inhalation solution (20 sources) beta2-Adrenergic Agonist Start: 4 take 2.5 mg by inhalation every four [...] via nebuliz er two times a day. ALPRAZolam 1 mg oral tablet (8 sources) Benzodiazepine Start: 10-23-19 End: 10-30-19 take 1 tablet enteral route every eight hours as needed ALPRAZolam (XANAX) 1 mg tablet 1 tablet by ORAL/FEEDING TUBE route three times a day as needed for up to 7 days. 0 10/23/2023 10/30/2023 Active Comment on above: 1 tablet by ORAL/FEE DING TUBE route three times a day as needed for up to 7 days. 1 mg by G-TUBE route three times a day as needed for anxiety. apixaban 5 mg oral tablet (10 sources) Factor Xa Inhibitor Start: 11-28-19 apixaban (ELIQUIS) 5 mg tab(s) 1 tablet by G-TUBE route two times a day. 0 11/28/2023 Active Start: 10-23-2023 End: 11-28-2023 take 1 tablet by mouth twice daily apixaban (ELIQUIS) 5 mg tab(s) Take 1 tablet by mouth two times a day. 0 10/23/2023 11/28/2023 Discontinued Comment on above: Take 1 tablet by stacy th two times a day. 1 tablet by G-TUBE r oute two times a day. carboxymethylcellulose sodiu m 10 mg/ml ophthalmic solution (7 sources) carboxymethylcel lulose sodium (ARTIFICIAL TEARS) 1 % drops Use 1 Drop in both eyes three times a day. 0 Active Comment on above: Use 1 Drop in both e yes three times a day. cetirizine hydrochloride 10 mg oral tablet (10 sources) Histamine-1 Receptor Antagonist Start: 024 cetirizine (ZYRTEC) 10 mg tablet 1 tablet by G-TUBE route once daily. 0 11/28/2023 Active Start: 10-23-2023 End: 11-28-2023 take 1 tablet by mouth once daily cetirizine (ZYRTEC) 10 mg tablet Take 1 tablet by mouth once daily. 0 10/23/2023 11/28/2023 Discontinued Comment on above: Take 1 tablet by stacy th once daily. 1 tablet by G-TUBE r oute once daily. escitalopram 10 mg oral tablet (10 sources) Serotonin Reuptake Inhibitor Start: take 1 tablet by mouth once daily escitalopram oxalate (LEXAPRO) 10 mg tablet 1 tablet by ORAL/FEEDING TUBE route once daily. 0 10/23/2023 Active Comment on above: 1 tablet by ORAL/FEE DING TUBE route once daily. ferrous sulfate 325 mg oral tablet (2 sources) Start: End: ferrous sulfate (IRON) 325 mg (65 mg iron) tablet 1 tablet once daily. Please provide appropriate medication for peg tube 90 tablet 3 01/21/2024 01/15/2025 Active folic acid 1 mg oral tablet (2 sources) Start: End: folic acid 1 mg tablet 1 tablet once daily. Please provide appropriate medication for peg tube 90 tablet 3 01/21/2024 01/20/2025 Active gabapentin 50 mg/ml oral solution (7 sources) Anti-epileptic Agent Start: End: take 6 mL by mouth three times daily gabapentin (NEURONTIN) 300 mg/6 mL (6 mL) oral solution 6 mL by ORAL/FEEDING TUBE route three times a day for 30 days. 0 10/23/2023 Active Comment on above: 6 mL by ORAL/FEEDING TUBE route three times a day for 30 days. glucagon (rdna) 1 mg injection (10 sources) Antihypoglycemic Agent Start: glucagon 1 mg/mL injection Inject 1 mg subcutaneously as needed. 0 10/23/2023 Active Comment on above: Inject 1 mg subcutan eously as needed. Vistaril (4 sources) Antihistamine Start: Vistaril Oral, QID, Refills(s) 0 Start Date: 10/03/20 Status: Ordered take 1 capsule by mouth every ei ght hours Vistaril 25 MG 1 capsule as needed Orally every 8 hrs Active sodium hypochlorite 1.25 mg/ml topical solution (7 sources) sodium hypochlor ite (DAKIN'S SOLUTION) 0.125 % soln Irrigate as instructed once daily. Apply to gauze; change daily as needed for wound care for sacrum 0 Active Comment on above: Irrigate as instruct ed once daily. Apply to gauze; change daily as needed for wound care for sacrum ibuprofen 200 mg oral capsule (1 source) Nonsteroidal Anti-inflammatory Drug Start: take 1 mg by mouth every six hours ibuprofen 200 mg oral capsule mg cap(s), Oral, q6hr, Refills(s) 0 Start Date: 10/02/21 Status: Ordered iv contrast (will be provided with radiology test) (1 source) Start: End: iv contrast (will be provided with radiology [...] in the MR contrast administration guidelines link. melatonin 3 mg oral tablet (10 sources) Start: take 1 tablet enteral route every twenty-four hours as needed melatonin 3 mg tablet 1 tablet by ORAL/FEEDING TUBE route at bedtime as needed for insomnia. 0 10/23/2023 Active Comment on above: 1 tablet by ORAL/FEE DING TUBE route at bedtime as needed for insomnia. mineral oil 0.2 mg/mg / petrolatum 0.8 mg/mg ophthalmic ointment (10 sources) Start: End: white petrolatum-mineral oil (SOOTHE LUBRICANT EYE NIGHT TIME OINTMENT) ointment Use 1 Drop in both eyes as needed (dry eye). 0 11/28/2023 Active Comment on above: Use 1 Drop in both e yes as needed. Use 1 Drop in both e yes as needed (dry eye). Multi Vitamin+ (1 source) Start: Multi Vitamin+ Refill(s) 0 Start Date: 09/30/19 Status: Ordered Multivitamin preparation (3 sources) Multivitamin BID PRN Active oxyCODONE hydrochloride 10 mg oral tablet (8 sources) Opioid Agonist Start: End: take 1 tablet by mouth every six hours oxyCODONE IR (ROXICODONE) 10 mg tab 1 tablet by ORAL/FEEDING TUBE route every 6 hours for 3 days. 0 10/23/2023 10/26/2023 Active Comment on above: 1 tablet by ORAL/FEE DING TUBE route every 6 hours for 3 days. 10 mg by G-TUBE rout e every 6 hours. polyethylene glycol 3350 63984 mg powder for oral solution (10 sources) Osmotic Laxative Start: polyethylene glycol 3350 17 gram packet 1 Packet by ORAL/FEEDING TUBE route once daily. Dissolve dose in 4 - 8 ounces of liquid and take as directed. 0 10/23/2023 Active Comment on above: 1 Packet by ORAL/FEE DING TUBE route once daily. Dissolve dose in 4 - 8 ounces of liquid and take as directed. sennosides, alf 8.6 mg oral tablet (10 sources) Start: take 1 tablet by mouth twice daily senna (SENOKOT) 8.6 mg tab 1 tablet by ORAL/FEEDING TUBE route two times a day. 0 10/23/2023 Active Comment on above: 1 tablet by ORAL/FEE DING TUBE route two times a day. sodium chloride 70 mg/ml inhalation solution (10 sources) Start: take 4 mL by inhalation twice daily sodium chloride 7% solution 7 % solution for nebulization Inhale 4 mL as instructed two times a day. 0 10/23/2023 Active Comment on above: Inhale 4 mL as instr ucted two times a day. zinc oxide 130 mg/ml topical cream (20 sources) Start: zinc oxide (DESITIN) 13 % crea Apply to affected area as needed (incontinence). 0 10/23/2023 Active Comment on above: Apply to affected ar ea as needed (incontinence). Apply to affected ar ea two times a day. Completed/Discontinued Medications Medication Drug Class(es) Dates Sig (Normalized) Sig (Original) acetaminophen 325 mg / HYDROcodone bitartrate 5 mg oral tablet (3 sources) Opioid Agonist take 1 tablet by mouth every six hours HYDROcodone-Acetam inophen 5-325 MG 1 tablet as needed Orally every 6 hrs Not-Taking baclofen 5 mg oral tablet (10 sources) gamma-Aminobutyr ic Acid-ergic Agonist Start: 10-23-2023 End: 11-22-2023 take 3 tablets by mouth three times daily baclofen 5 mg tablet 3 tablets by ORAL/FEEDING TUBE route three times a day. 0 10/23/2023 11/22/2023 Discontinued (Dosage adjustment) baclofen 5 mg ta blet 5 mg by G-TUBE route three times a day. 0 Active Comment on above: 3 tablets by ORAL/FE EDING TUBE route three times a day. 5 mg by G-TUBE route three times a day. 1000 ml glucose 100 mg/ml injection (6 sources) Start: 10-23-2023 End: 11-22-2023 dextrose (TRUEPLUS) 15 gram/32 mL oral gel Take 32 mL by mouth as needed. 0 10/23/2023 11/22/2023 Discontinued Start: 10-23-2023 End: 11-22-2023 dextrose 10% Inject 125-250 mL intravenously as needed (low blood sugar). 0 10/23/2023 11/22/2023 Discontinued Comment on above: Inject 125-250 mL in travenously as needed (low blood sugar). Take 32 mL by mouth as needed. metoprolol tartrate 25 mg oral tablet (10 sources) beta-Adrenergic Andrew Start: End: take 0.5 tablet by mouth every twelve hours metoprolol tartrate, short acting, (LOPRESSOR) 25 mg tablet 0.5 tablets by ORAL/FEEDING TUBE route every 12 hours. 0 10/23/2023 11/22/2023 Discontinued (Dosage adjustment) metoprolol tartr ate, short acting, (LOPRESSOR) 25 mg tablet 25 mg by G-TUBE route two times a day. Hold for SBP less than 100, hold for HR less than 60 0 Active Comment on above: 0.5 tablets by ORAL/ FEEDING TUBE route every 12 hours. 25 mg by G-TUBE rout e two times a day. Hold for SBP less than 100, hold for HR less than 60 MULTIVITAMIN ORAL TAB (4 sources) Start: End: take 1 tablet by mouth once daily MULTIVITAMIN ORAL TAB Take one(1) tablet daily. HOLD 0 01/16/2005 11/22/2023 Discontinued Start: 01-16-2005 take 1 tablet by stacy th once daily MULTIVITAMIN ORAL TAB Take one(1) tablet daily. HOLD 0 01/16/2005 Active Comment on above: Take one(1) tablet d aily. HOLD potassium phosphate 155 mg / sodium phosphate, dibasic 852 mg / sodium phosphate, monobasic 130 mg oral tablet (3 sources) Start: 10-23-2023 End: 11-22-2023 phosphorus (K PHOS NEUTRAL) 250 mg tablet 1 tablet by ORAL/FEEDING TUBE route as needed (for phosphorus less than 2.5 mg/dL - see admin instructions). 0 10/23/2023 11/22/2023 Discontinued Comment on above: 1 tablet by ORAL/FEE DING TUBE route as needed (for phosphorus less than 2.5 mg/dL - see admin instructions). Problems Active Problems Problem Classification Problem Date Documented Da te Episodic/Chronic Abdominal pain (5 sources) Unspecified abdominal pain; Translations: [Flank pain] Onset: 08-18-2022 Episodic Acute cerebrovascular disease (11 sources) Ischemic stroke; Translations: [Cerebral infarction, unspecified] Onset: 07-03-2023 10-10-2023 Chronic Chronic ulcer of skin (20 sources) Pressure ulcer of unspecified site, unspecified stage; Translations: [Pressure ulcer, unspecified site] Onset: 08-13-2023 10-09-2023 Chronic Deficiency and other anemia (1 source) Iron deficiency anemia due to blood loss; Translations: [Iron deficiency anemia secondary to blood loss (chronic)] 01-03-2024 Chronic Genitourinary symptoms and ill-defined conditions (4 sources) Retention of urine; Translations: [Retention of urine, unspecified] Onset: 10-01-2022 Episodic Headache; including migraine (11 sources) Refractory migraine variants; Translations: [Migraine with aura, intractable, without status migrainosus] Onset: 12-31-2003 01-03-2004 Chronic Inflammatory conditions of male genital organs (2 sources) Chronic prostatitis; Translations: [Chronic prostatitis] Onset: 10-01-2022 Chronic Mood disorders (1 source) Depressive disorder 09-30-2019 Chronic Nutritional deficiencies (11 sources) Malnutrition (calorie); Translations: [Moderate protein-calorie malnutrition] Onset: 10-11-2023 10-11-2023 Chronic Osteoarthritis (1 source) Arthritis 09-30-2019 Chronic Other acquired deformities (1 source) Scoliosis deformity of spine 09-30-2019 Chronic Other bone disease and musculoskeletal deformities (5 sources) Other idiopathic scoliosis, thoracolumbar region; Translations: [OTH IDIOPATH SCOLIOSIS TL REGION] Onset: 02-12-2022 Chronic Other diseases of bladder and urethra (13 sources) Flaccid neurogenic bladder; 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, not elsewhere classified] Onset: 10-01-2022 Chronic Other nervous system disorders (1 source) Other chronic pain; Translations: [OTHER CHRONIC PAIN] Onset: 02-16-2022 Chronic Other upper respiratory disease (11 sources) Tracheostomy present; Translations: [Tracheostomy status] Onset: 10-10-2023 10-18-2023 Chronic Paralysis (12 sources) 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; 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] Onset: 07-03-2023 10-10-2023 Chronic Rehabilitation care; fitting of prostheses; and adjustment of devices (8 sources) Patient encounter status; Translations: [Encounter for fitting and adjustment of other specified devices] Onset: 11-22-2023 11-22-2023 Chronic Respiratory failure; insufficiency; arrest (adult) (20 sources) Chronic respiratory failure; Translations: [Chronic respiratory failure, unspecified whether with hypoxia or hypercapnia] Onset: 10-10-2023 10-14-2023 Chronic Unclassified (2 sources) LOW BACK PAIN, UNSPECIFIED; Translations: [LOW BACK PAIN, UNSPECIFIED] Onset: 01-16-2022 Unclassified (1 source) Wound Check Onset: 10-08-2023 Unclassified (1 source) EMS Onset: 10-08-2023 Past or Other Problems Problem Classification Problem Date Documented Da te Episodic/Chronic Acquired foot deformities (11 sources) Flat foot [pes planus] (acquired), unspecified foot; Translations: [Flat foot] Onset: 3 01-03-2004 Episodic Acute and unspecified renal failure (5 sources) Acute renal failure syndrome; Translations: [Acute kidney failure, unspecified] Onset: 4 Resolved: 4 11-26-2023 Episodic Aspiration pneumonitis; food/vomitus (8 sources) Aspiration pneumonia due to regurgitated gastric secretions; Translations: [Pneumonitis due to inhalation of food and vomit] Onset: 4 11-22-2023 Episodic Biliary tract disease (11 sources) Calculus of gallbladder with acute cholecystitis; Translations: [Calculus of gallbladder with acute cholecystitis without obstruction] Onset: 4 10-14-2023 Episodic Blindness and vision defects (8 sources) Visual hallucinations; Translations: [Visual hallucinations] Onset: 4 11-24-2023 Episodic Cardiac dysrhythmias (5 sources) Tachycardia; Translations: [Tachycardia, unspecified] Onset: 4 Resolved: 4 11-26-2023 Episodic Complication of device; implant or graft (8 sources) Urinary tract infectious disease; Translations: [Infection and inflammatory reaction due to indwelling urethral catheter, initial encounter] Onset: 4 11-22-2023 Episodic Complications of surgical procedures or medical care (11 sources) Ventilator associated pneumonia; Translations: [Ventilator associated pneumonia] Onset: 4 10-12-2023 Episodic E Codes: Fall (1 source) Fall on same level due to ice and snow, initial encounter; Translations: [FALL SAME LEVEL D/T ICE SNOW INIT] Onset: 2 Episodic Fracture of upper limb (8 sources) Unspecified fracture of the lower end of right radius, subsequent encounter for closed fracture with routine healing; Translations: [Unspecified fracture of the lower end of right radius, initial encounter for closed fracture] Onset: 2 Resolved: 2 Episodic Gastrointestinal hemorrhage (8 sources) Coffee ground vomiting; Translations: [Hematemesis] Onset: 4 11-21-2023 Episodic Joint disorders and dislocations; trauma-related (1 source) Recurrent dislocation, right finger; Translations: [RECURRENT DISLOCATION RIGHT FINGER] Onset: 2 Episodic Open wounds of head; neck; and trunk (8 sources) Finding of sacral region; Translations: [Unspecified open wound of lower back and pelvis without penetration into retroperitoneum, initial encounter] Onset: 4 11-23-2023 Episodic Other acquired deformities (1 source) Spondylolisthesis, site unspecified; Translations: [SPONDYLOLISTHESIS SITE UNSPECIFIED] Onset: 2 Episodic Other circulatory disease (8 sources) History of cerebrovascular accident; Translations: [Personal history of transient ischemic attack (TIA), and cerebral infarction without residual deficits] Onset: 4 11-24-2023 Episodic Other connective tissue disease (11 sources) Infective myositis; Translations: [Infective myositis, unspecified left leg] Onset: 4 10-21-2023 Episodic Other connective tissue disease (1 source) Infective myositis, unspecified left leg; Translations: [Infective myositis of left lower extremity] Onset: 4 Episodic Other gastrointestinal disorders (8 sources) Incontinence of feces; Translations: [Full incontinence of feces] Onset: 4 11-22-2023 Episodic Other infections; including parasitic (11 sources) H/O: infectious disease; Translations: [Personal history of other infectious and parasitic diseases] Onset: 4 10-12-2023 Episodic Other lower respiratory disease (4 sources) Solitary pulmonary nodule; Translations: [SOLITARY PULMONARY NODULE] Onset: 2 Episodic Other nervous system disorders (8 sources) Tremor; Translations: [Tremor, unspecified] Onset: 4 11-24-2023 Episodic Other non-traumatic joint disorders (3 sources) Pain in right wrist; Translations: [PAIN IN RIGHT WRIST] Onset: 2 Episodic Other non-traumatic joint disorders (11 sources) Hip pain; Translations: [Pain in left hip] Onset: 4 10-17-2023 Episodic Other non-traumatic joint disorders (11 sources) Effusion of joint of left hip; Translations: [Effusion, left hip] Onset: 4 10-17-2023 Episodic Other screening for suspected conditions (not mental disorders or infectious disease) (20 sources) Electrocardiogram abnormal; Translations: [Abnormal electrocardiogram [ECG] [EKG]] Onset: 4 10-10-2023 Episodic Phlebitis; thrombophlebitis and thromboembolism (8 sources) H/O: Deep vein thrombosis; Translations: [Personal history of other venous thrombosis and embolism] Onset: 4 11-21-2023 Episodic Pneumonia (except that caused by tuberculosis or sexually transmitted disease) (8 sources) Infective pneumonia; Translations: [Pneumonia, unspecified organism] Onset: 4 11-22-2023 Episodic Residual codes; unclassified (11 sources) Urinary catheter in situ; Translations: [Presence of other specified devices] Onset: 4 10-12-2023 Episodic Septicemia (except in labor) (13 sources) Sepsis, unspecified organism; Translations: [Sepsis] Onset: 4 10-15-2023 Episodic Spondylosis; intervertebral disc disorders; other back problems (7 sources) Lumbago with sciatica, right side; Translations: [Pain in thoracic spine] Onset: 2 Episodic Unclassified (1 source) LOW BACK PAIN, UNSPECIFIED; Translations: [LOW BACK PAIN, UNSPECIFIED] Onset: 2 Urinary tract infections (11 sources) Urinary tract infection caused by Klebsiella; Translations: [Urinary tract infection, site not specified] Onset: 4 10-12-2023 Episodic Results Test Name Value Interpretation Reference Range [facility] 01-03-2024 [facility] Normal [facility] 01-01-2024 [facility] Normal [facility] 12-20-2023 [facility] Normal [facility] Albumin SerPl-mCncon 024 Albumin [Mass/Vol] 2.8 g/dL Low 3.9-4.9 [facility] Comment on above: Order Comment: Speci men Type: BLOOD SPECIMEN Ordering Facility: [facility] Address: [address] [place] [id number] Performed By: #### 3 [id number], [id number], [id number] #### [facility] CLIA [id number] [place] [address] [place] Basic metabolic 2000 panelon 11-28-2023 Anion gap [Moles/Vol] 7 mmol/L Low 9-18 [facility] Comment on above: Order Comment: Speci men Type: BLOOD SPECIMEN Ordering Facility: [facility] Address: [address] [place] [id number] Performed By: #### 3 [id number], [id number], [id number] #### [facility] CLIA [id number] [place] [address] [place] Calcium [Mass/Vol] 8.4 mg/dL Low 8.5-10.2 [facility] Comment on above: Order Comment: Speci men Type: BLOOD SPECIMEN Ordering Facility: [facility] Address: [address] [place] [address] Performed By: #### 3 3959-8, 23065-9, 11770-1 #### [facility] [place] [id number] [address] [place] [address] [place] Chloride [Moles/Vol] 104 mmol/L Normal 97-105 [facility] Comment on above: Order Comment: Speci men Type: BLOOD SPECIMEN Ordering Facility: [facility] Address: [address] [place] [address] Performed By: #### 3 3959-8, 69667-6, 00297-7 #### [facility] CLIA [id number] [address] [place] [address] [place] CO2 [Moles/Vol] 26 mmol/L Normal 22-30 [facility] ital Comment on above: Order Comment: Speci men Type: BLOOD SPECIMEN Ordering Facility: [facility] Address: [address] [place] [address] Performed By: #### 3 3959-8, 84117-9, 05531-2 #### [facility] CLIA [id number] [address] [place] [address] [place] Creatinine [Mass/Vol] 0.58 mg/dL Low 0.73-1.22 [facility] Comment on above: Order Comment: Darwin schwarz Type: BLOOD SPECIMEN Ordering Facility: [facility] Address: [address] [place] [address] Performed By: #### 3 3959-8, 96274-3, 40266-2 #### [facility] CLIA [id number] [address] [place] [address] [place] Creatinine and Glomerular filtration rate.predicted panel (S/P/Bld) 127 mL/min/1.73m??? Normal >=60 [facility] Comment on above: Order Comment: Darwin [facility] Type: BLOOD SPECIMEN Ordering Facility: [facility] Address: [address] [place] [address] Result Comment: Rae mated Glomerular Filtration Rate [...] accurately reflect actual GFR. Performed By: #### 3 3959-8, 53369-7, 95468-0 #### [facility] CLIA [id number] [address] [place] [address] [place] Glucose [Mass/Vol] 118 mg/dL High 74-99 [facility] Comment on above: Order Comment: Darwin schwarz Type: BLOOD SPECIMEN Ordering Facility: [facility] Address: [address] [place] [address] Result Comment: The [place] Diabetes [employer] (ADA) provides guidance for cutoff values for fasting glucose and random glucose. The ADA defines fasting as no caloric intake for at least 8 hours. Fasting plasma glucose results between 100 to 125 mg/dL indicate increased risk for diabetes (prediabetes). Fasting plasma glucose results greater than or equal to 126 mg/dL meet the criteria for diagnosis of diabetes. In the absence of unequivocal hyperglycemia, results should be confirmed by repeat testing. In a patient with classic symptoms of hyperglycemia or hyperglycemic crisis, random plasma glucose results greater than or equal to 200 mg/dL meet the criteria for diagnosis of diabetes. Reference: Standards of Medical Care in Diabetes 2016, [place] [employer]. Diabetes Care. 2016.39(Suppl 1). Performed By: #### 3 3959-8, 56060-8, 76068-6 #### [facility] CLIA [id number] [address] [place] [address] [place] Potassium [Moles/Vol] 3.5 mmol/L Low 3.7-5.1 [facility] Comment on above: Order Comment: Darwin schwarz Type: BLOOD SPECIMEN Ordering Facility: [facility] Address: [address] [place] [address] Performed By: #### 3 3959-8, 45980-1, 23403-1 #### [facility] CLIA [id number] [address] [place] [address] [place] Sodium [Moles/Vol] 137 mmol/L Normal 136-144 [facility] Comment on above: Order Comment: Darwin schwarz Type: BLOOD SPECIMEN Ordering Facility: [facility] Address: [address] [place] [address] Performed By: #### 3 3959-8, 54857-8, 22920-1 #### [facility] CLIA [id number] [address] [place] [address] [place] Urea nitrogen [Mass/Vol] 7 mg/dL Low 9-24 [facility] Comment on above: Order Comment: Gabrielai karishma Type: BLOOD SPECIMEN Ordering Facility: [facility] Address: [address] [place] [address] Performed By: #### 3 3959-8, 86292-7, 95722-6 #### [facility] CLIA [id number] [address] [place] [address] [place] CBC panel Auto (Bld)on 11-27 Erythrocyte distribution width (RBC) [Ratio] 18.0 % High 11.5-15.0 [facility] Comment on above: Order Comment: Speci men Type: BLOOD SPECIMENOrdering Facility: [facility] Address: [address] [place] [address] Performed By: #### 5 8410-2 ####[facility] [id number] [place] [address] [facility] [place] Hematocrit (Bld) [Volume fraction] 27.3 % Low 39.0-51.0 [facility] Comment on above: Order Comment: Speci men Type: BLOOD SPECIMENOrdering Facility: [facility] Address: [address] [place] [address] Performed By: #### 5 8410-2 ####[facility] [id number] [place] [address] [place] Hemoglobin (Bld) [Mass/Vol] 8.4 g/dL Low 13.0-17.0 [facility] Comment on above: Order Comment: Speci men Type: BLOOD SPECIMENOrdering Facility: [facility] Address: [address] [place] [address] Performed By: #### 5 8410-2 ####[facility] [id number] [place] [address] [place] MCH (RBC) [Entitic mass] 25.1 pg Low 26.0-34.0 [facility] Comment on above: Order Comment: Speci men Type: BLOOD SPECIMENOrdering Facility: [facility] Address: [address] [place] [address] Performed By: #### 5 8410-2 ####[facility] [id number] [place] [id number] [place] MCHC (RBC) [Mass/Vol] 30.8 g/dL Normal 30.5-36.0 [facility] Comment on above: Order Comment: Speci men Type: BLOOD SPECIMENOrdering Facility: [facility] Address: [address] [place] [address] Performed By: #### 5 8410-2 ####[facility] [id number] [place] [address] [facility] [place] MCV (RBC) [Entitic vol] 81.7 fL Normal 80.0-100.0 [facility] Comment on above: Order Comment: Speci men Type: BLOOD SPECIMENOrdering Facility: [facility] Address: [address] [place] [address] Performed By: #### 5 8410-2 ####[facility] [id number] [place] [address] [facility] [place] Nucleated RBC (Bld) [#/Vol] 10*3/uL Normal <0.01 [facility] Comment on above: Order Comment: Speci men Type: BLOOD SPECIMENOrdering Facility: [facility] Address: [address] [place] [address] Performed By: #### 5 8410-2 ####[facility] [id number] [place] [address] [place] Platelet mean volume (Bld) [Entitic vol] 10.8 fL Normal 9.0-12.7 [facility] l Comment on above: Order Comment: Speci men Type: BLOOD SPECIMENOrdering Facility: [facility] Address: [address] [place] [address] Performed By: #### 5 8410-2 ####[facility] [id number] [facility] [place] [address] [place] Platelets (Bld) [#/Vol] 365 10*3/uL Normal 150-400 [facility] Comment on above: Order Comment: Speci men Type: BLOOD SPECIMENOrdering Facility: [facility] Address: [address] [place] [address] Performed By: #### 5 8410-2 ####[facility] [id number] [place] [address] [place] RBC (Bld) [#/Vol] 3.34 10*6/uL Low 4.20-6.00 [facility] Comment on above: Order Comment: Speci men Type: BLOOD SPECIMENOrdering Facility: [facility] Address: [address] [place] [address] Performed By: #### 5 8410-2 ####[facility]ORY[facility]IA [id number] [place] [address] [place] WBC (Bld) [#/Vol] 11.22 10*3/uL High 3.70-11.00 [facility] Comment on above: Order Comment: Speci men Type: BLOOD SPECIMENOrdering Facility: [facility] Address: [address] [place] [address] Performed By: #### 5 8410-2 ####[facility]ORY[facility]IA [id number] [place] [address] [place] Magnesium SerPl-mCncon 11-27 Magnesium [Mass/Vol] 2.1 mg/dL Normal 1.7-2.3 [facility] Comment on above: Order Comment: Speci men Type: BLOOD SPECIMEN Ordering Facility: [facility] Address: [address] [place] [address] Performed By: #### 3 3959-8, 89977-3, 27978-6 #### [facility] CLIA [id number] [address] [place] [address] [place] Phosphate SerPl-mCncon 11-27 Phosphate [Mass/Vol] 3.3 mg/dL Normal 2.7-4.8 [facility] Comment on above: Order Comment: Speci men Type: BLOOD SPECIMEN Ordering Facility: [facility] Address: [address] [place], [place] [address] Performed By: #### 3 3959-8, 47040-7, 68082-0 #### [facility] CLIA [id number] [address] [place] [address] [place] Albumin SerPl-mCncon 024 Albumin [Mass/Vol] 2.7 g/dL Low 3.9-4.9 [facility] Comment on above: Order Comment: Speci men Type: SWAB OF INTERNAL NOSE Ordering Facility: [facility] Address: [address] [place] [address] Performed By: #### S APCR #### [facility] CLIA [id number] [address] [place] [address] [place] Basic metabolic 2000 panelon 11-27-2023 Anion gap [Moles/Vol] 9 mmol/L Normal 9-18 [facility] Comment on above: Order Comment: Speci men Type: SWAB OF INTERNAL NOSE Ordering Facility: [facility] Address: [address] [place] [address] Performed By: #### S APCR #### [facility] CLIA [id number] [address] [place] [address] [place] Calcium [Mass/Vol] 8.6 mg/dL Normal 8.5-10.2 [facility] Comment on above: Order Comment: Speci men Type: SWAB OF INTERNAL NOSE Ordering Facility: [facility] Address: [address] [place] [address] Performed By: #### S APCR #### [facility] CLIA [id number] [address] [place] [address] [place] Chloride [Moles/Vol] 105 mmol/L Normal 97-105 [facility] Comment on above: Order Comment: Speci men Type: SWAB OF INTERNAL NOSE Ordering Facility: [facility] Address: [address] [place] [address] Performed By: #### S APCR #### [facility] CLIA [id number] [address] [place] [address] [place] CO2 [Moles/Vol] 26 mmol/L Normal 22-30 [facility] Comment on above: Order Comment: Speci men Type: SWAB OF INTERNAL NOSE Ordering Facility: [facility] Address: [address] [place] [address] Performed By: #### S APCR #### [facility] CLIA [id number] [address] [place] [address] [place] Creatinine [Mass/Vol] 0.62 mg/dL Low 0.73-1.22 [facility] Comment on above: Order Comment: Darwin schwarz Type: SWAB OF INTERNAL NOSE Ordering Facility: [facility] Address: [address] [place] [address] Performed By: #### S APCR #### [facility] CLIA [id number] [address] [place] [address] [place] Creatinine and Glomerular filtration rate.predicted panel (S/P/Bld) 125 mL/min/1.73m??? Normal >=60 [facility] Comment on above: Order Comment: Darwin schwarz Type: SWAB INTERNAL NOSE Ordering Facility: [facility] Address: [address] [place] [address] Result Comment: Rae mated Glomerular Filtration Rate [...] accurately reflect actual GFR. Performed By: #### S APCR #### [facility] CLIA [id number] [address] [place] [address] [place] Glucose [Mass/Vol] 100 mg/dL High 74-99 [facility] on above: Order Comment: Darwin schwarz Type: SWAB OF INTERNAL NOSE Ordering Facility: [facility] Address: [address] [place] [address] Result Comment: The [place] Diabetes Association (ADA) provides guidance for cutoff values for fasting glucose and random glucose. The ADA defines fasting as no caloric intake for at least 8 hours. Fasting plasma glucose results between 100 to 125 mg/dL indicate increased risk for diabetes (prediabetes). Fasting plasma glucose results greater than or equal to 126 mg/dL meet the criteria for diagnosis of diabetes. In the absence of unequivocal hyperglycemia, results should be confirmed by repeat testing. In a patient with classic symptoms of hyperglycemia or hyperglycemic crisis, random plasma glucose results greater than or equal to 200 mg/dL meet the criteria for diagnosis of diabetes. Reference: Standards of Medical Care in Diabetes 2016, [place] [employer] Association. Diabetes Care. 2016.39(Suppl 1). Performed By: #### S APCR #### [facility] CLIA [id number] [address] [place] [address] [place] Potassium [Moles/Vol] 3.6 mmol/L Low 3.7-5.1 [facility] Comment on above: Order Comment: Speci men Type: SWAB OF INTERNAL NOSE Ordering Facility: [facility] Address: [address] [place] [address] Performed By: #### S APCR #### [facility] CLIA [id number] [address] [place] [address] [place] Sodium [Moles/Vol] 140 mmol/L Normal 136-144 [facility] Comment on above: Order Comment: Speci men Type: SWAB OF INTERNAL NOSE Ordering Facility: [facility] Address: [address] [place] [address] Performed By: #### S APCR #### [facility] CLIA [id number] [address] [place] [address] [place] Urea nitrogen [Mass/Vol] 7 mg/dL Low 9-24 [facility] Comment on above: Order Comment: Speci men Type: SWAB OF INTERNAL NOSE Ordering Facility: [facility] Address: [address] [place] [address] Performed By: #### S APCR #### [facility] CLIA [id number] [address] [place] [address] [place] CBC panel Auto (Bld)on 11-26 Erythrocyte distribution width (RBC) [Ratio] 17.9 % High 11.5-15.0 [facility] Comment on above: Order Comment: Speci men Type: BLOOD SPECIMENOrdering Facility: [facility] Address: [address] [place] [address] Performed By: #### 5 8410-2 ####[facility] [id number] [address] [place] Hematocrit (Bld) [Volume fraction] 30.1 % Low 39.0-51.0 [facility] Comment on above: Order Comment: Speci men Type: BLOOD SPECIMENOrdering Facility: [facility] Address: [address] [place] [address] Performed By: #### 5 8410-2 ####[facility] [id number] [address] [place] Hemoglobin (Bld) [Mass/Vol] 9.0 g/dL Low 13.0-17.0 [facility] Comment on above: Order Comment: Speci men Type: BLOOD SPECIMENOrdering Facility: [facility] Address: [address] [place] [address] Performed By: #### 5 8410-2 ####[facility] [id number] [address] [place] MCH (RBC) [Entitic mass] 25.4 pg Low 26.0-34.0 [facility] Comment on above: Order Comment: Speci men Type: BLOOD SPECIMENOrdering Facility: [facility] Address: [address] [place] [address] Performed By: #### 5 8410-2 ####[facility] [id number] [place] [id number] [place] MCHC (RBC) [Mass/Vol] 29.9 g/dL Low 30.5-36.0 [facility] Comment on above: Order Comment: Speci men Type: BLOOD SPECIMENOrdering Facility: [facility] Address: [address] [place] [address] Performed By: #### 5 8410-2 ####[facility] [id number] [place] [address] [place] MCV (RBC) [Entitic vol] 84.8 fL Normal 80.0-100.0 [facility] Comment on above: Order Comment: Speci men Type: BLOOD SPECIMENOrdering Facility: [facility] Address: [address] [place] [address] Performed By: #### 5 8410-2 ####[facility] [id number] [facility] [place] [address] [place] Nucleated RBC (Bld) [#/Vol] 10*3/uL Normal <0.01 [facility] Comment on above: Order Comment: Speci men Type: BLOOD SPECIMENOrdering Facility: [facility] Address: [address] [place] [address] Performed By: #### 5 8410-2 ####[facility] [id number] [place] [address] [place] Platelet mean volume (Bld) [Entitic vol] 10.8 fL Normal 9.0-12.7 [facility] l Comment on above: Order Comment: Speci men Type: BLOOD SPECIMENOrdering Facility: [facility] Address: [address] [place] [address] Performed By: #### 5 8410-2 ####[facility] [id number] [place] [address] [place] Platelets (Bld) [#/Vol] 401 10*3/uL High 150-400 [facility] Comment on above: Order Comment: Speci men Type: BLOOD SPECIMENOrdering Facility: [facility] Address: [address] [place] [address] Performed By: #### 5 8410-2 ####[facility] [id number] [place] [address] [place] RBC (Bld) [#/Vol] 3.55 10*6/uL Low 4.20-6.00 [facility] Comment on above: Order Comment: Speci men Type: BLOOD SPECIMENOrdering Facility: [facility] Address: [address] [place] [address] Performed By: #### 5 8410-2 ####[facility]ORYCLIA [id number] [facility] [place] [address] [place] WBC (Bld) [#/Vol] 15.59 10*3/uL High 3.70-11.00 [facility] Comment on above: Order Comment: Speci men Type: BLOOD SPECIMENOrdering Facility: [facility] Address: [address] [place] [place] [id number] Performed By: #### 5 8410-2 ####[facility]ORYCLIA [id number] [facility] [place] [address] [facility] CNDSon 11-27-2023 CNDS HNO ID: [id number] Author: NIGEL GUTIERREZ MD Service: Critical Care Author Type: Nurse Practitioner Type: Discharge Summary Filed: 11/28/2023 13:21 Note Text: Attestation signed by Nigel Gutierrez MD at 11/28/2023 1:21 PM Attending Note Reviewed the discharge summary for this patient being cared for by the ICU team and agree with its content and above plan of care unless otherwise indicated. Time spent: 15 minutes. Signature: Nigel Gutierrez MD Date: November 28, 2023 Time: 1:21 PM DISCHARGE SUMMARY PATIENT NAME: Lolis Quinones III ADMISSION DATE: 11/21/2023 DISCHARGE DATE: 11/28/2023 Attending Physician: Nigel Gutierrez MD Code Status: Full Code Highest Readmission Risk Score: 26 The 30 day readmissions risk score is derived from an internally validated risk model which evaluates patient level characteristics, utilization history, medication orders and lab results up until the day of discharge. Patients with a score of 40 or above are considered highest risk for readmission. Specific patient level drivers will be listed at the bottom of the summary. Reason for Hospitalization: Sepsis, Chronic Respiratory Failure on Ventilatory support Principal Problem: Sepsis (HCC) (POA: Yes) Active Problems: Decubitus ulcer (POA: Yes) Chronic respiratory failure (HCC) (POA: Yes) Ischemic stroke (HCC) (POA: Yes) Malnutrition of moderate degree (HCC) (POA: Yes) History of DVT (deep vein thrombosis) (POA: Unknown) Coffee ground emesis (POA: Unknown) Incontinence of feces (POA: Yes) Encounter for management of wound VAC (POA: Unknown) Pneumonia of both lower lobes due to infectious organism (POA: Unknown) Urinary tract infection associated with indwelling urethral catheter (HCC) (HCC) (POA: Unknown) Aspiration pneumonia of both lower lobes due to gastric secretions (HCC) (POA: Unknown) Sacral wound, initial encounter (POA: Unknown) History of ischemic vertebrobasilar artery brainstem stroke (POA: Unknown) Tremor (POA: Unknown) Visual hallucinations (POA: Unknown) Resolved Problems: ITZEL (acute kidney injury) (HCC) (POA: Unknown) Tachycardia (POA: Unknown) Operations During Hospitalization: None Procedures During Hospitalization: EGD Hospital Course: Patient is a 38 year old male with a past medical 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 According to ED provider, he was never hypotensive and did not have a lactate. Fever was 102+ and he was tachycardic into the 140s. He remained on his baseline vent settings with VT 400, RR 14, 45% and PEEP 5 without issue. Vitals included HR 145, RR 19, BP 108/62 and SPO2 96 on 45% FIO2. He received 2L IVF and was started on broad spectrum antibiotics. ED report noted WBC 21,700, Hgb 10.3, Hct35.5, Na 143, K 4.1, BUN 26, CR 0.87, Lactate 1.8. CXR: underexpanded lungs with mild bibasilar infiltrates versus atelectasis right greater than left. CT ABD/P Negative for acute process, CT Brain negative for acute process. Recently, he was treated for acute cholecystitis and had a percutaneous kwasi tube placed at [facility] which was removed 10/10/2022. ED provider initially requested patient to transfer to MICU at [facility] per family request but due to bed availability, patient is to be admitted to ICU at [facility] for Sepsis and Chronic Respiratory Failure requiring continuous ventilator support. While in [facility] ICU patient was treated for suspected pneumonia and UTI with cultures + for carbapenem resistant A. Baumannii and carbapenem sensitive Klebsiella Pneumoniae. ID has followed course. Patient has finished full course of meropenem and has improved clinically. 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 Early in course neurology also followed given chronic neuro history and encephalopathy now thought related more to sepsis. 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 Patient was also followed by GI during course due to anemia encountered as well as one episode of coffee ground drainage from PEG. Patient had presented on apixaban, which has been held. Patient received one transfusion of 1 (more content not included)... Normal [facility] CONSULT PROGon 11-27-2023 CONSULT PROG HNO ID: [id number] Author: DEONNA ANAND APRN.FUNERAL DRIVER Service: Wound/Ostomy Author Type: Nurse Practitioner Type: Consult Progress Note Filed: 11/27/2023 14:21 Note Text: WOUND/OSTOMY SERVICE PROGRESS NOTE SERVICE DATE: 11/27/2023 SERVICE TIME: 12:45 PM Subjective CHIEF COMPLAINT: See Initial Consult Note Patient is being seen by wound care service for: Wound care. INTERVAL HISTORY OF PRESENT ILLNESS: Wound vac dressing changed per nursing on Saturday11/25/23. ON TF's. Nurse reports patient positive for fecal incontinence. Family at bedside. Patient with possible discharge back to nursing facility tomorrow. No reports of fever. Current Facility-Administered Medications Medication Dose Route Frequency potassium chloride 20-40 mEq oral powder (KLOR-CON) 20-40 mEq ORAL/FEEDING TUBE PRN Or potassium chloride ER 20-40 mEq tab(s) (KLOR-CON) 20-40 mEq ORAL PRN Or potassium chloride iv piggyback 20 mEq/100 mL 20 mEq INTRAVENOUS PRN Or potassium phosphate 15 mmol in NaCl 0.9% 250 mL 15 mmol INTRAVENOUS PRN Or potassium phosphate 30 mmol in NaCl 0.9% 250 mL 30 mmol INTRAVENOUS PRN Or potassium phosphate 45 mmol in NaCl 0.9% 500 mL 45 mmol INTRAVENOUS PRN magnesium sulfate iv piggyback in sterile water 2 g 50 mL 2 g INTRAVENOUS PRN phosphorus 500 mg tab(s) (K PHOS NEUTRAL) 500 mg ORAL/FEEDING TUBE PRN Or sodium phosphate 15 mmol in D5W 250 mL 15 mmol INTRAVENOUS PRN Or sodium phosphate 30 mmol in D5W 250 mL 30 mmol INTRAVENOUS PRN Or sodium phosphate 45 mmol in D5W 250 mL 45 mmol INTRAVENOUS PRN meropenem 1 g in NaCl 0.9% 100 mL Vial-Bag (MERREM) 1 g INTRAVENOUS q 8 H docusate 100 mg oral liquid (COLACE) 100 mg PEG BID polyethylene glycol 3350 17 g packet 17 g PEG DAILY ALPRAZolam 1 mg tab(s) (XANAX) 1 mg PEG AT BEDTIME oxyCODONE 10 mg oral liquid (ROXICODONE) 10 mg ORAL/FEEDING TUBE q 6 H dextrose 5% in NaCl 0.45% iv infusion 30-150 mL/hr INTRAVENOUS PRN sodium hypochlorite 0.125 % (DAKIN'S QUARTER STRENGTH) TOPICAL DAILY acetylcysteine 200 mg/mL (20 %) 400 mg (MUCOMYST) 400 mg INHALATION Daily (3 PM) sucralfate 1 g tab(s) (CARAFATE) 1 g PEG BID AC dextrose 15 gram/32 mL 15 g (TRUEPLUS) 15 g ORAL PRN Or glucagon 1 mg injection 1 mg INTRAMUSCULAR PRN Or dextrose 10% iv bolus 12.5 g INTRAVENOUS PRN NaCl 0.9% iv flush bag 20 mL INTRAVENOUS PRN Chlorhexidine Gluconate 0.12 % 15 mL (PERIDEX) 15 mL ORAL QID ondansetron 4 mg tab(s) (ZOFRAN) 4 mg ORAL q 6 H PRN Or ondansetron (PF) 4 mg injection (ZOFRAN) 4 mg INTRAVENOUS q 6 H PRN bisacodyl 10 mg suppository (DULCOLAX) 10 mg RECTAL DAILY PRN insulin lispro injection (rapid acting) (ADMElog) SUBCUTANEOUS q 6 H gabapentin 300 mg oral liquid (NEURONTIN) 300 mg ORAL/FEEDING TUBE TID cetirizine 10 mg tab(s) (ZYRTEC) 10 mg ORAL/FEEDING TUBE DAILY albuterol 2.5 mg /3 mL (0.083 %) 2.5 mg (PROVENTIL) 2.5 mg INHALATION BID albuterol 2.5 mg /3 mL (0.083 %) 2.5 mg (PROVENTIL) 2.5 mg INHALATION q 4 H PRN white petrolatum-mineral oil 1 Drop ophthalmic ointment (Soothe Lubricant Eye Night Time Ointment) 1 Drop BOTH EYES PRN sodium chloride 7% solution 4 mL INHALATION ONLY 4 mL INHALATION BID melatonin 3 mg tab(s) 3 mg ORAL/FEEDING TUBE AT BEDTIME PRN escitalopram oxalate 10 mg tab(s) (LEXAPRO) 10 mg ORAL/FEEDING TUBE DAILY baclofen 5 mg tab(s) 5 mg ORAL/FEEDING TUBE TID acetaminophen 650 mg CUP (TYLENOL) 650 mg ORAL/FEEDING TUBE q 4 H PRN metoprolol tartrate (short acting) 25 mg tab(s) (LOPRESSOR) 25 mg ORAL/FEEDING TUBE q 12 H Objective PHYSICAL EXAM: BP 122/76 Pulse 88 Temp (Src) 98.3 (Axillary) Resp 20 Ht 5' 4 (1.63m) Wt 163 lb 9.3 oz (74.2kg) SpO2 99% BMI 28.06 kg/(m2). O2 Therapy: Ventilator, %FIO2: 50 General: No Distress, trached Skin: Skin warm and dry : Iverson Wound: Sacral wound with wound vac continuous suction 125 mm HG, good seal, julissa-wound with no surrounding erythema. Cannister with serosanguinous drainage Extremities: No edema. Bilateral heels with blanching erythema and intact skin DATA: Diagnostic tests reviewed for today's visit: Most recent labs CBC with diff: WBC 15.59 11/27/2023 RBC 3.55 11/27/2023 Hemoglobin 9.0 11/27/2023 Hematocrit 30.1 11/27/2023 MCV 84.8 11/27/2023 MCH 25.4 11/27/2023 MCHC 29.9 11/27/2023 RDW-CV 17.9 11/27/2023 Platelet Count 401 11/27/2023 MPV 10.8 11/27/2023 Neutrophils % 91.0 11/21/2023 Lymphocytes % 6.0 11/21/2023 Monocytes % 3.0 11/21/2023 Eosinophils % 0.8 10/21/2023 Basophils % 0.0 11/21/2023 Abs Neut 19.91 11/21/2023 Abs [place] 0.66 11/21/2023 Abs Eosin 0.00 11/21/2023 Abs Baso 0.00 11/21/2023 Glucose (mg/dL) Date Value 11/27/2023 100 01/16/2005 63 Potassium (mmol/L) Date Value 11/27/2023 3.6 08/18/2023 4.3 01/16/2005 4.6 Sodium (mmol/L) Date Value 11/27/2023 140 06/15/2023 144 01/16/2005 142 Chloride (mmol/L) Date Value 11/27/2023 105 06/15/2023 102 01/16/2005 106 CO2 (mmol/L) Date (more content not included)... Normal [facility] Magnesium [facility] 11-26 Magnesium [Mass/Vol] 2.1 mg/dL Normal 1.7-2.3 [facility] Comment on above: Order Comment: Speci men Type: BLOOD SPECIMENOrdering Facility: [facility] Address: [address] [place] [address] Performed By: #### 2 4321-2, 2777-1, 1751-7, 79533-4 ####[facility] LABORATORYCLIA [id number] [facility] [place] [address] [place] [facility] Phosphate [Mass/Vol] 2.9 mg/dL Normal 2.7-4.8 [facility] Comment on above: Order Comment: Speci men Type: BLOOD SPECIMENOrdering Facility: [facility] Address: [address] [place] [id number] Performed By: #### 2 4321-2, 2777-1, 1751-7, 76822-7 ####[facility] LABORATORYCLIA [id number] [facility] [place] [address] [place] ANES POSTPROC EVALon 024 ANES POSTPROC EVAL HNO ID: [id number] Author: CLAIR DAVIES MD Service: Anesthesiology Author Type: Anesthesiologist Type: Anesthesia Postprocedure Evaluation Filed: 11/26/2023 15:30 Note Text: POST ANESTHESIA EVALUATION NOTE : 1985 Procedure Summary Date: 11/26/23 Room / Location: Procedures Anesthesia Start: 1314 Anesthesia Stop: 1405 Procedure: EGD DIAGNOSTIC Diagnosis: (Suspected upper GI bleeding) Scheduled Providers: Sergei Alatorre MD; Chemo Rosales MD; Cal Morris APRN.IRONER MACHINE; Safia Perez RN Responsible Provider: Chemo Rosales MD Anesthesia Type: general ASA Status: 4 Anesthesia Type: general Airway Type: tracheal airway Last Vitals Vitals Value Taken Time BP 104/50 11/26/23 1515 Temp 11/26/23 1530 Pulse 93 11/26/23 1529 Resp 21 11/26/23 1529 SpO2 95 % 11/26/23 1529 Vitals shown include unfiled device data. Post Anesthesia Patient Status Patient Evaluation: bedside. Anticipated Disposition: ICU planned admission. Neurological Status: aware and responsive. Pulmonary Status: breathing comfortably on supplemental oxygen Airway Control: returned to baseline unsupported. Cardiovascular Status: stable. Pain Management: clinically adequate Postoperative Hydration: acceptable. Intraoperative Events: no significant anesthesia events Post Operative Nausea/Vomiting Status: no significant post operative nausea or vomiting Recommendation: continue current plan of care. Anesthesia Observations No Documentation SIGNATURE: Clair Davies MD PATIENT NAME: Lolis Quinones III DATE: November 26, 2023 TIME: 3:30 PM CSN: [id number] Normal [facility] ANES PRE-OPon 11-26-2023 ANES PRE-OP HNO ID: [id number] Author: CHEMO ROSALES MD Service: Anesthesiology Author Type: Anesthesiologist Type: Anesthesia Preprocedure Evaluation Filed: 11/26/2023 11:54 Note Text: ANESTHESIOLOGY DAY OF SURGERY NOTE : 1985 Procedure Information Date/Time: 11/26/23 1245 Scheduled providers: Sergei Alatorre MD; Chemo Rosales MD; Cal Morris APRN.IRONER MACHINE; Safia Perez RN Procedure: EGD DIAGNOSTIC Location: Procedures Estimated body mass index is 28.84 kg/m? as calculated from the following: Height as of 11/21/23: 162.6 cm (5' 4 ). Weight as of 11/25/23: 76.2 kg (167 lb 15.9 oz). Most recent hematocrit and potassium results: Hematocrit 27.2 11/26/2023 Potassium 3.4 11/26/2023 Relevant Problems CARDIO (+) CLUSTER HEADACHE NEURO-PSYCH (+) CLUSTER HEADACHE (+) History of DVT (deep vein thrombosis) (+) History of ESBL Klebsiella pneumoniae infection (+) History of ischemic vertebrobasilar artery brainstem stroke (+) Ischemic stroke (HCC) PULMONARY (+) Aspiration pneumonia of both lower lobes due to gastric secretions (HCC) (+) Chronic respiratory failure (HCC) (+) History of ESBL Klebsiella pneumoniae infection (+) Pneumonia of both lower lobes due to infectious organism (+) Tracheostomy tube present (HCC) (+) VAP (ventilator-associated pneumonia) (HCC) Neurology (+) 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 Tracheostomy tube present DENTAL Dental findings: teeth intact. Additional exam findings: no II - ANESTHESIA PLAN ASA Score: 4 Anesthetic Plan: general Airway type: tracheal airway NPO Status: adequate Beta Andrew Monitoring Plan Monitoring plan: Standard ASA. Post Procedure Analgesic Plan Postoperative analgesic plan: parenteral or oral opioids, multimodal analgesia and go to ICU. Informed Consent Anesthetic risks, benefits, alternatives, personnel and consent discussed: yes. Patient / Responsible Alliance Party agrees to proceed: yes Patient / Surrogate agrees to blood products: yes DNR status not reviewed with patient and/or family prior to surgery. Significant changes in the patient condition since the History and Physical, not otherwise documented in primary service progress note: no. Potential Anesthesia issues that may suggest increased risk of complications or contraindication to planned procedure: none. No vitals data found for the desired time range. Facility-Administered Medications as of 11/26/2023 Medication Dose Route Frequency - [COMPLETED] potassium chloride iv piggyback 20 mEq/100 mL 20 mEq INTRAVENOUS ONCE - [COMPLETED] potassium chloride iv piggyback 20 mEq/100 mL 20 mEq INTRAVENOUS q 1 H - docusate 100 mg oral liquid (COLACE) 100 mg PEG BID - polyethylene glycol 3350 17 g packet 17 g PEG DAILY - ALPRAZolam 1 mg tab(s) (XANAX) 1 mg PEG AT BEDTIME - oxyCODONE 10 mg oral liquid (ROXICODONE) 10 mg ORAL/FEEDING TUBE q 6 H - dextrose 5% in NaCl 0.45% iv infusion 30-150 mL/hr INTRAVENOUS PRN - sodium hypochlorite 0.125 % (DAKIN'S QUARTER STRENGTH) TOPICAL DAILY - pantoprazole 40 mg oral liquid (PROTONIX) 40 mg ORAL/FEEDING TUBE BID AC (0600/1600) - acetylcysteine 200 mg/mL (20 %) 400 mg (MUCOMYST) 400 mg INHALATION Daily (3 PM) - sucralfate 1 g tab(s) (CARAFATE) 1 g PEG BID AC - dextrose 15 gram/32 mL 15 g (TRUEPLUS) 15 g ORAL PRN Or - glucagon 1 mg injection 1 mg INTRAMUSCULAR PRN Or - dextrose 10% iv bolus 12.5 g INTRAVENOUS PRN - NaCl 0.9% iv flush bag 20 mL INTRAVENOUS PRN - Chlorhexidine Gluconate 0.12 % 15 mL (PERIDEX) 15 mL ORAL QID - ondansetron 4 mg tab(s) (ZOFRAN) 4 mg ORAL q 6 H PRN Or - ondansetron (PF) 4 mg injection (ZOFRAN) 4 mg INTRAVENOUS q 6 H PRN - bisacodyl 10 mg suppository (DULCOLAX) 10 mg RECTAL DAILY PRN - insulin lispro injection (rapid acting) (ADMElog) SUBCUTANEOUS q 6 H - meropenem 1 g in NaCl 0.9% 100 mL Vial-Bag (MERREM) 1 g INTRAVENOUS q 8 H - gabapentin 300 mg oral liquid (NEURONTIN) 300 mg ORAL/FEEDING TUBE TID - cetirizine 10 mg tab(s) (ZYRTEC) 10 mg ORAL/FEEDING TUBE DAILY - albuterol 2.5 mg /3 mL (0.083 %) 2.5 mg (PROVENTIL) 2.5 mg INHALATION BID - albuterol 2.5 mg /3 mL (0.083 %) 2.5 mg (PROVENTIL) 2.5 mg INHALATION q 4 H PRN - white petrolatum-mineral oil 1 Drop ophthalmic ointment (Soothe Lubricant Eye Night Time Ointment) 1 Drop BOTH EYES PRN - sodium chloride 7% solution 4 mL INHALATION ONLY 4 mL INHALATION BID - melatonin 3 mg tab(s) 3 mg ORAL/FEEDING TUBE AT BEDTIME PRN - escitalopram oxalate 10 mg tab(s) (LEXAPRO) 10 mg ORAL/FEEDING TUBE DAILY - baclofen 5 mg tab(s) 5 mg ORAL/FEEDING TUBE TID - acetaminophen 650 mg CUP (TYLENOL) 650 mg ORAL/FEEDING TUBE q 4 H PRN - metoprolol tartrate (short acting) 25 mg tab(s) (LOPRESSOR) 25 mg ORAL/FEEDING TUBE q 12 H No current outpatient medications on file as of 11/26/2023. I have interviewed and examined the patient. I have reviewed the medica (more content not included)... Normal [facility] Albumin SerPl-mCncon 024 Albumin [Mass/Vol] 2.8 g/dL Low 3.9-4.9 [facility]spital Comment on above: Order Comment: Speci men Type: BLOOD SPECIMENOrdering Facility: [facility] Address: [address] [place] [address] Performed By: #### 1 9123-9, 1757, 2570-8, 29374-8 ####[facility] LABORATORYCLIA [id number] [facility] [place] [address] [place] Basic metabolic 2000 panelon 11-26-2023 Anion gap [Moles/Vol] 7 mmol/L Low -18 [facility] Comment on above: Order Comment: Speci men Type: BLOOD SPECIMENOrdering Facility: [facility] Address: [address] [place] [address] Performed By: #### 1 9123-9, 175-7, 2570-8, 29762-5 ####[facility] LABORATORYCLIA [id number] [facility] [place] [address] [place] Calcium [Mass/Vol] 8.8 mg/dL Normal 8.5-10.2 [facility] Comment on above: Order Comment: Speci men Type: BLOOD SPECIMENOrdering Facility: [facility] Address: [address] [place] [address] Performed By: #### 1 9123-9, 7, 8, 73478-8 ####[facility] LABORATORYCLIA [id number] [place] [address] [place] Chloride [Moles/Vol] 106 mmol/L High 97-105 [facility] Comment on above: Order Comment: Speci men Type: BLOOD SPECIMENOrdering Facility: [facility] Address: [address] [place] [address] Performed By: #### 1 9123-9, 1751-03, 2571-04, 30188-5 ####[facility] HOSPITALIA [id number] [place] [address] [place] CO2 [Moles/Vol] 28 mmol/L Normal 22-30 [facility] ital Comment on above: Order Comment: Speci men Type: BLOOD SPECIMENOrdering Facility: [facility] Address: [address] [place] [address] Performed By: #### 1 9123-9, 1751-03, 2571-04, 70539-7 ####[facility] HOSPITALIA [id number] [place] [address] [place] Creatinine [Mass/Vol] 0.50 mg/dL Low 0.73-1.22 [facility] Comment on above: Order Comment: Speci men Type: BLOOD SPECIMENOrdering Facility: [facility] Address: [address] [place] [address] Performed By: #### 1 9123-9, 7, 8, 98440-3 ####[facility] LABORATORYIA [id number] [facility] [place] [address] [place] Creatinine and Glomerular filtration rate.predicted panel (S/P/Bld) 133 mL/min/1.73m??? Normal >=60 [facility] Comment on above: Order Comment: Gabrieladominic schwarz Type: BLOOD SPECIMENOrdering Facility: [facility] Address: [address] [place] [address] Result Comment: Rae mated Glomerular Filtration Rate [...] actual GFR. Performed By: #### 1 9123-9, 1751-7, 2571-8, 25145-7 ####[facility] VISTACLIA [id number] [facility] [place] [address] [place] Glucose [Mass/Vol] 94 mg/dL Normal 74-99 [facility]spital Comment on above: Order Comment: Darwin schwarz Type: BLOOD SPECIMENOrdering Facility: [facility] Address: [address] [place] [address] Result Comment: The [place] [employer] (ADA) provides guidance for cutoff values for fasting glucose and random glucose. The ADA defines fasting as no caloric intake for at least 8 hours. Fasting plasma glucose results between 100 to 125 mg/dL indicate increased risk for diabetes (prediabetes). Fasting plasma glucose results greater than or equal to 126 mg/dL meet the criteria for diagnosis of diabetes. In the absence of unequivocal hyperglycemia, results should be confirmed by repeat testing. In a patient with classic symptoms of hyperglycemia or hyperglycemic crisis, random plasma glucose results greater than or equal to 200 mg/dL meet the criteria for diagnosis of diabetes. Reference: Standards of Medical Care in Diabetes 2016, [place] [employer] Association. Diabetes Care. 2016.39(Suppl 1). Performed By: #### 1 9123-9, 1751-7, 2571-8, 20818-7 ####[facility] LABORATORYIA [id number] [place] [address] [place] Potassium [Moles/Vol] 3.4 mmol/L Low 3.7-5.1 [facility] Comment on above: Order Comment: Speci men Type: BLOOD SPECIMENOrdering Facility: [facility] Address: [address] [place] [address] Performed By: #### 1 9123-9, 1751-7, 2571-8, 48862-3 ####[facility] LABORATORYCLIA [id number] [place] [id number] [place] Sodium [Moles/Vol] 141 mmol/L Normal 136-144 [facility]ital Comment on above: Order Comment: Speci men Type: BLOOD SPECIMENOrdering Facility: [facility] Address: [address] [place] [address] Performed By: #### 1 9123-9, 1751-7, 2571-8, 18206-6 ####[facility] HOSPITALIA [id number] [place] [id number] [place] Urea nitrogen [Mass/Vol] 7 mg/dL Low 9-24 [facility] Comment on above: Order Comment: Speci men Type: BLOOD SPECIMENOrdering Facility: [facility] Address: [address] [place] [address] Performed By: #### 1 9123-9, 1751-7, 2571-8, 85610-3 ####[facility]OSPITALIA [id number] [place] [id number] [place] CBC panel Auto (Bld)on 11-25 Erythrocyte distribution width (RBC) [Ratio] 17.5 % High 11.5-15.0 [facility] Comment on above: Order Comment: Speci men Type: BLOOD SPECIMENOrdering Facility: [facility] Address: [address] [place] [address] Performed By: #### 5 8410-2 ####[facility] LABORATORYIA [id number] [place] [address] [place] Hematocrit (Bld) [Volume fraction] 27.2 % Low 39.0-51.0 [facility] Comment on above: Order Comment: Speci men Type: BLOOD SPECIMENOrdering Facility: [facility] Address: [address] [place] [address] Performed By: #### 5 8410-2 ####[facility] LABORATORYIA [id number] [place] [address] [place] Hemoglobin (Bld) [Mass/Vol] 8.3 g/dL Low 13.0-17.0 [facility] Comment on above: Order Comment: Speci men Type: BLOOD SPECIMENOrdering Facility: [facility] Address: [address] [place] [address] Performed By: #### 5 8410-2 ####[facility] HOSPITALIA [id number] [place] [address] [place] MCH (RBC) [Entitic mass] 25.2 pg Low 26.0-34.0 [facility] Comment on above: Order Comment: Speci men Type: BLOOD SPECIMENOrdering Facility: [facility] Address: [address] [place] [address] Performed By: #### 5 8410-2 ####[facility]OSPITALIA [id number] [address] [place] MCHC (RBC) [Mass/Vol] 30.5 g/dL Normal 30.5-36.0 [facility] Comment on above: Order Comment: Speci men Type: BLOOD SPECIMENOrdering Facility: [facility] Address: [address] [place] [address] Performed By: #### 5 8410-2 ####[facility] LABORATORYIA [id number] [address] [place] MCV (RBC) [Entitic vol] 82.7 fL Normal 80.0-100.0 [facility] Comment on above: Order Comment: Speci men Type: BLOOD SPECIMENOrdering Facility: [facility] Address: [address] [place] [address] Performed By: #### 5 8410-2 ####[facility] LABORATORYCLIA [id number] [facility] [place] [address] [place] Nucleated RBC (Bld) [#/Vol] 10*3/uL Normal <0.01 [facility] Comment on above: Order Comment: Speci men Type: BLOOD SPECIMENOrdering Facility: [facility] Address: [address] [place] [address] Performed By: #### 5 8410-2 ####[facility] LABORATORYIA [id number] [place] [address] [place] Platelet mean volume (Bld) [Entitic vol] 10.5 fL Normal 9.0-12.7 [facility] Comment on above: Order Comment: Speci men Type: BLOOD SPECIMENOrdering Facility: [facility] Address: [address] [place] [address] Performed By: #### 5 8410-2 ####[facility]OSPITALIA [id number] [place] [address] [place] Platelets (Bld) [#/Vol] 321 10*3/uL Normal 150-400 [facility] Comment on above: Order Comment: Speci men Type: BLOOD SPECIMENOrdering Facility: [facility] Address: [address] [place] [address] Performed By: #### 5 8410-2 ####[facility] LABORATORYIA [id number] [place] [address] [place] RBC (Bld) [#/Vol] 3.29 10*6/uL Low 4.20-6.00 [facility] Comment on above: Order Comment: Speci men Type: BLOOD SPECIMENOrdering Facility: [facility] Address: [address] [place] [address] Performed By: #### 5 8410-2 ####[facility] LABORATORYIA [id number] [place] [address] [place] WBC (Bld) [#/Vol] 10.68 10*3/uL Normal 3.70-11.00 [facility] Comment on above: Order Comment: Speci men Type: BLOOD SPECIMENOrdering Facility: [facility] Address: [address] [place] [address] Performed By: #### 5 8410-2 ####[facility] LABORATORYCLIA [id number] [facility] [place] [address] [place] HISTORY PHYSICALon HISTORY PHYSICAL HNO ID: [id number] Author: SERGEI ALATORRE MD Service: Gastroenterology Author Type: Physician Type: H&P Filed: 11/26/2023 12:55 Note Text: HISTORY AND PHYSICAL Lolis Quinones III, 38 year old male with a past medical history 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 No Indication for procedure: GI bleeding PROCEDURE(S) SCHEDULED FOR: EGD (Esophagogastroduodeno scopy) with or without biopsies, removal of polyps or lesions, dilation ( any means), treatment of bleeding ( any means), Barrx treatment of Nabil's Esophagus, image tube placement or cryo therapy treatment based on clinical findings. BASELINE BEHAVIOR: Calm BASELINE ORIENTATION: A AND O x3 All medications and allergies reviewed: Yes Skin Assessment: Warm dry mucus membranes pink Airway/Respiratory Assessment: Airway: visualization of the uvula- Yes Mouth: opening greater than 2 fingerbreadths- Yes Neck: full range of motion- Yes Breath sounds clear/equal- Yes Cardiac Assessment: Regular rate and rhythm without murmur Abdominal Assessment: Abdomen soft, non-tender, no masses or organomegaly. Sedation Plan: MAC Additional Comments: None Sergei Alatorre MD Normal [facility] Magnesium SerPl-mCncon 11-25 Magnesium [Mass/Vol] 2.1 mg/dL Normal 1.7-2.3 [facility] Comment on above: Order Comment: Speci men Type: BLOOD SPECIMENOrdering Facility: [facility] Address: [address] [place] [address] Performed By: #### 1 9123-9, 1751-7, 2571-8, 18059-0 ####[facility] LABORATORYCLIA [id number] [facility].[place] [id number] [place] Phosphate SerPl-mCncon 11-25 Phosphate [Mass/Vol] 3.2 mg/dL Normal 2.7-4.8 [facility] Comment on above: Order Comment: Speci men Type: BLOOD SPECIMENOrdering Facility: [facility] Address: [address] [place] [address] Performed By: #### 2 777-1 ####[facility]ACLIA [id number] [address] SURGICAL PATHOLOGYon 024 ADDENDUM 1: Normal [facility] Comment on above: Order Comment: Speci men Type: TISSUE SPECIMENOrdering Facility: [facility] Address: [address] [place] [address] Result Comment: Izaiah David iven the background of chronic gastritis, a Helicobacter pylori immunostain is performed on block A and is negative for Helicobacter pylori organisms. - Although the histology is somewhat suggestive of Helicobacter pylori, the immuno histochemical stain shows no evidence of Helicobacter pylori organisms. This can sometimes be explained on the basis of prior antibiotic exposure or migration of organisms in the seting of proton pump inhibitors. Laboratory Developed Test (LDT) Disclaimer: Performance characteristics of immunohistochemical, immunofluorescent and chromogenic in-situ hybridization tests have been determined by the performing laboratory within [facility]???s [facility] [place] ([facility], [facility], [facility], [facility], [facility], [facility], or [facility]) in a manner consistent with CLIA requirements. One or more of these tests have not been cleared or approved by the FDA. [facility] is regulated under CLIA as qualified to perform high-complexity testing. These tests are used for clinical purposes. They should not be regarded as investigational or for research. Positive and negative controls stain appropriately. Addendum electronically signed by Christine Gomez MD on 11/30/2023 at 10:15 AM Performed By: #### S ####[facility] LABORATORYCLIA [id number] [address] LABCLIA [id number] [address] CASE REPORT [facility] Comment on above: Order Comment: Speci men Type: TISSUE SPECIMENOrdering Facility: [facility] Address: [address] [place] [address] Result Comment: [facility] Pathology Report Case: [id number] Authorizing Provider: Sergei Alatorre MD Collected: 11/26/2023 01:43 PM Ordering Location: Procedures Received: 11/26/2023 01:57 PM Pathologist: Christine Gomez MD Specimen: STOMACH BIOPSY, r/o h. pylori Performed By: #### S ####[facility] LABORATORYCLIA [id number] [address] LABCLIA [id number] [address] DIAGNOSIS COMMENT A. Immunohistochemic al staining for Helicobacter pylori organisms is pending; the result will be reported as an addendum. [facility] Comment on above: Order Comment: Speci men Type: TISSUE SPECIMENOrdering Facility: [facility] Address: [address] [place] [address] Performed By: #### S ####[facility] LABORATORYCLIA [id number] [address] LABCLIA [id number] [address] FINAL DIAGNOSIS Normal [facility] Comment on above: Order Comment: Speci men Type: TISSUE SPECIMENOrdering Facility: [facility] Address: [address] [place] [address] Result Comment: Izaiah quezada, biopsy: - Chronic active gastritis; see comment. Performed By: #### S ####[facility] [id number] [address] LABCLIA [id number] [address] [place] FINAL PERFORMING LAB Normal [facility] Comment on above: Order Comment: Speci men Type: TISSUE SPECIMENOrdering Facility: [facility] Address: [address] [place] [address] Result Comment: Diag nostic interpretation performed at [facility], [address] [address] CLIA# [id number] Doughnut Glazier: Christine Gomez M.D. Performed By: #### S ####[facility] LABORATORYCLIA [id number] [address] LABCLIA [id number] [address] [place] GROSS DESCRIPTION [facility] Comment on above: Order Comment: Speci men Type: TISSUE SPECIMENOrdering Facility: [facility] Address: [address] [place] [address] Result Comment: A. S TOMACH BIOPSY Received in formalin are multiple pieces of cervantes, soft tissue aggregating to 0.9 x 0.2 x 0.1 cm. Totally submitted in one cassette. SS November 26, 2023 7:43 PM Gross examination performed at [facility], [address] [place] [address] Performed By: #### S ####[facility] LABORATORYCLIA [id number] [address] LABCLIA [id number] [place] [address] [place] Trigl SerPl-mCncon 4 Triglyceride [Mass/Vol] 187 mg/dL High <150 [facility] Comment on above: Order Comment: Speci men Type: BLOOD SPECIMENOrdering Facility: [facility] Address: [address] [place] [address] Result Comment: <150 mg/dL, Normal 150-199 mg/dL, Borderline high 200-499 mg/dL, High >499 mg/dL, Very high Reference: 1. National Cholesterol Education Program ATP III Guideline At-A-Glance Quick Desk Reference: National Heart, Lung, and Blood [place]. National Institutes of Health. 2001: NIH Publication No. 01-3305. Performed By: #### 1 9123-9, 1751-7, 2571-8, 60310-4 ####[facility] LABORATORYCLIA [id number] [facility] [place] [address] [place] [facility] Triglyceride [Mass/Vol]on FASTING TIME 24 hrs Normal [facility] Comment on above: Order Comment: Speci men Type: BLOOD SPECIMENOrdering Facility: [facility] Address: [address] [place] [address] Performed By: #### 1 9123-9, 1751-7, 2571-8, 60250-6 ####[facility] LABORATORYCLIA [id number] [facility] [place] [address] [facility] [place] Upper GI endoscopyon 024 Upper GI endoscopy [facility] Gastrointestinal Endoscopy Patient Name: Lolis Quinones Procedure Date: 11/26/2023 12:54 PM Date of : 1985 Admit Type: Inpatient Age: 38 Room: [place] [address] Gender: Male Note Status: Finalized Attending MD: Sergei Alatorre MD, [id number] Procedure: Upper GI endoscopy Indications: Suspected upper gastrointestinal bleeding Providers: Sergei Alatorre MD Patient Profile: This is a 38 year old male with a past medical 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 Refer to note in patient chart for documentation of history and physical. Referring Physician: Tonia Tarango CNP (Referring MD) Medicines: Monitored Anesthesia Care Complications: No immediate complications. Requesting Provider: Procedure: Pre-Anesthesia Assessment: - Prior to the procedure, a History and Physical was performed, and patient medications and allergies were reviewed. The patient's tolerance of previous anesthesia was also reviewed. The risks and benefits of the procedure and the sedation options and risks were discussed with the patient. All questions were answered, and informed consent was obtained. Prior Anticoagulants: The patient has taken Eliquis (apixaban), last dose was 5 days prior to procedure. ASA Grade Assessment: III - A patient with severe systemic disease. After reviewing the risks and benefits, the patient was deemed in satisfactory condition to undergo the procedure. After obtaining informed consent, the endoscope was passed under direct vision. Throughout the procedure, the patient's blood pressure, pulse, and oxygen saturations were monitored continuously. The Endoscope was introduced through the mouth, and advanced to the second part of duodenum. The 3155 was introduced through the mouth, and advanced to the second part of duodenum. The upper GI endoscopy was accomplished without difficulty. The patient tolerated the procedure well. Moderate Sedation: MAC anesthesia was administered by the anesthesia team. Total Procedure Duration: 0 hours 5 minutes 10 seconds Findings: The examined duodenum was normal. Diffuse moderate inflammation with hemorrhage characterized by erythema was found in the gastric body and in the gastric antrum. Biopsies were taken with a cold forceps for Helicobacter pylori testing. The pathology specimen was placed into Bottle A. There was evidence of an intact gastrostomy with a patent G-tube present in the gastric body. This was characterized by healthy appearing mucosa. The exam of the stomach was otherwise normal. The Z-line was found 38 cm from the incisors. The examined esophagus was normal. Edematous/narrow hypopharynx requiring pediatric endoscope. Impression: - Normal examined duodenum. - Gastritis with hemorrhage. Biopsied. - Intact gastrostomy with a patent G-tube present characterized by healthy appearing mucosa. - Z-line, 38 cm from the incisors. - Normal esophagus. - Edematous/narrow hypopharynx requiring pediatric endoscope. - No major findings to explain coffee ground emesis, but hemorrhagic gastritis in the setting of apixaban may cause bloody emesis Recommendation: - Return patient to hospital [facility] for ongoing care. - Resume previous diet. - Continue present medications. - Continue daily PPI therapy - Restart anticoagulant therapy no earlier than tomorrow morning - The patient is not currently taking anticoagulant or antiplatelet agents. - Await pathology results. - No ibuprofen, naproxen, or other non-steroidal anti-inflammatory drugs. - Return to referring physician as previously scheduled. - Written discharge instructions were provided to the patient. Procedure Code(s): --- Professional --- 65442, Esophagogastroduodenos copy, flexible, transoral; with biopsy, single or multiple Diagnosis Code(s): --- Professional --- K31.89, Other diseases of stomach and duodenum K29.71, Gastritis, unspecified, with bleeding CPT copyright 2020 [place] [employer]. All rights reserved. The codes documented in this report are preliminary and upon fiction and nonfiction writer prose review may be revised to meet current compliance requirements. Attending Participation: I personally performed the entire procedure. Scope In: 1:32:00 PM Scope Out: 1:37:10 PM MD Sergei Coleman MD 11/26/2023 1:57:13 PM This report has been signed electronically by Sergei Alatorre MD Number of Addenda: 0 Note Initiated On: 11/26/2023 12:54 PM Estimated Blood Loss: Estimated blood loss was minimal. Normal [facility] Basic metabolic 2000 panelon 11-25-2023 Anion gap [Moles/Vol] 8 mmol/L Low 05-27 [facility] Comment on above: Order Comment: Speci karishma Type: BLOOD SPECIMENOrdering Facility: [facility] Address: [address] [place], [place] [address] Performed By: #### 1 988-5, 24093-2, 40785-7, ####[facility] LABORATORYCLIA [id number] [place] [address] [place] Calcium [Mass/Vol] 8.6 mg/dL Normal 8.5-10.2 [facility] ospital Comment on above: Order Comment: Speci karishma Type: BLOOD SPECIMENOrdering Facility: [facility] Address: [address] [place] [address] Performed By: #### 1 988-5, 05682-3, 18864-2, ####[facility] LABORATORYCLIA [id number] [place] [address] [place] Chloride [Moles/Vol] 103 mmol/L Normal 97-105 [facility] Comment on above: Order Comment: Speci men Type: BLOOD SPECIMENOrdering Facility: [facility] Address: [address] [place] [address] Performed By: #### 1 988-5, 05157-4, 71764-6, ####[facility] LABORATORYCLIA [id number] [place] [address] [place] CO2 [Moles/Vol] 27 mmol/L Normal 22-30 [facility] Comment on above: Order Comment: Speci men Type: BLOOD SPECIMENOrdering Facility: [facility] Address: [address] [place] [address] Performed By: #### 1 988-5, 12349-7, 39859-6, ####[facility] LABORATORYCLIA [id number] [place] [address] [place] Creatinine [Mass/Vol] 0.52 mg/dL Low 0.73-1.22 [facility] Comment on above: Order Comment: Speci men Type: BLOOD SPECIMENOrdering Facility: [facility] Address: [address] [place] [address] Performed By: #### 1 988-5, 45184-5, 47414-4, ####[facility] LABORATORYCLIA [id number] [place] [address] [place] Creatinine and Glomerular filtration rate.predicted panel (S/P/Bld) 131 mL/min/1.73m??? Normal >=60 [facility] l Comment on above: Order Comment: Speci [facility] Type: BLOOD SPECIMENOrdering Facility: [facility] Address: [address] [place] [address] Result Comment: Rae mated Glomerular Filtration Rate [...] actual GFR. Performed By: #### 1 988-5, 38866-2, 17797-1, ####[facility] LABORATORYIA [id number] [place] [address] [place] Glucose [Mass/Vol] 99 mg/dL Normal 74-99 [facility] Comment on above: Order Comment: Speci men Type: BLOOD SPECIMENOrdering Facility: [facility] Address: [address] [place] [address] Result Comment: The [place] [employer] (ADA) provides guidance for cutoff values for fasting glucose and random glucose. The ADA defines fasting as no caloric intake for at least 8 hours. Fasting plasma glucose results between 100 to 125 mg/dL indicate increased risk for diabetes (prediabetes). Fasting plasma glucose results greater than or equal to 126 mg/dL meet the criteria for diagnosis of diabetes. In the absence of unequivocal hyperglycemia, results should be confirmed by repeat testing. In a patient with classic symptoms of hyperglycemia or hyperglycemic crisis, random plasma glucose results greater than or equal to 200 mg/dL meet the criteria for diagnosis of diabetes. Reference: Standards of Medical Care in Diabetes 2016, [place] [employer]. Diabetes Care. 2016.39(Suppl 1). Performed By: #### 1 988-5, 97824-0, 57748-4, ####[facility]OSPITALIA [id number] [place] [address] [place] Potassium [Moles/Vol] 3.9 mmol/L Normal 3.7-5.1 [facility] Comment on above: Order Comment: Speci men Type: BLOOD SPECIMENOrdering Facility: [facility] Address: [address] [place] [address] Performed By: #### 1 988-5, 66788-3, 89951-4, ####[facility] HOSPITALIA [id number] [facility] [place] [address] [place] Sodium [Moles/Vol] 138 mmol/L Normal 136-144 [facility] Comment on above: Order Comment: Speci men Type: BLOOD SPECIMENOrdering Facility: [facility] Address: [address] [place], [place] [address] Performed By: #### 1 988-5, 98997-3, 62925-5, 53409-0 ####[facility] LABORATORYCLIA [id number] [place] [address] [place] Urea nitrogen [Mass/Vol] 9 mg/dL Normal 9-24 [facility] Comment on above: Order Comment: Speci men Type: BLOOD SPECIMENOrdering Facility: [facility] Address: [address] [place], [place] [address] Performed By: #### 1 988-5, 08684-3, 20505-8, 96507-3 ####[facility] LABORATORYCLIA [id number] [place] [address] [place] CBC panel Auto (Bld)on 11-24 Erythrocyte distribution width (RBC) [Ratio] 17.1 % High 11.5-15.0 [facility] Comment on above: Order Comment: Speci men Type: BLOOD SPECIMEN [facility] Address: [address] [place], [place] [address] Performed By: #### 3 3959-8, 82834-5, 33267-5 #### [facility] CLIA [id number] [place] [address] [place] Hematocrit (Bld) [Volume fraction] 27.4 % Low 39.0-51.0 [facility] Comment on above: Order Comment: Speci men Type: BLOOD SPECIMEN [facility] Address: [address] [place] [address] Performed By: #### 3 3959-8, 28765-2, 03836-1 #### [facility] CLIA [id number] [address] [place] [address] [place] Hemoglobin (Bld) [Mass/Vol] 8.4 g/dL Low 13.0-17.0 [facility] Comment on above: Order Comment: Speci men Type: BLOOD SPECIMEN [facility] Address: [address] [place] [address] Performed By: #### 3 3959-8, 55129-3, 74223-7 #### [facility] CLIA [id number] [address] [place] [address] [place] [facility] MCH (RBC) [Entitic mass] 25.5 pg Low 26.0-34.0 [facility] Comment on above: Order Comment: Speci men Type: BLOOD SPECIMEN [facility] Address: [address] [place] [address] Performed By: #### 3 3959-8, 00599-4, 18071-4 #### [facility] CLIA [id number] [address] [place] [address] [facility] [place] MCHC (RBC) [Mass/Vol] 30.7 g/dL Normal 30.5-36.0 [facility] Comment on above: Order Comment: Speci men Type: BLOOD SPECIMEN [facility] Address: [address] [place] [address] Performed By: #### 3 3959-8, 54780-0, 03481-7 #### [facility] CLIA [id number] [place] MCV (RBC) [Entitic vol] 83.0 fL Normal 80.0-100.0 [facility] Comment on above: Order Comment: Speci men Type: BLOOD SPECIMEN [facility] Address: [address] [place] [address] Performed By: #### 3 3959-8, 71748-5, 33057-4 #### [facility] CLIA [id number] [address] [place] [address] [facility] [place] Nucleated RBC (Bld) [#/Vol] 10*3/uL Normal <0.01 [facility] Comment on above: Order Comment: Speci men Type: BLOOD SPECIMEN [facility] Address: [address] [place] [address] Performed By: #### 3 3959-8, 15118-4, 81224-2 #### [facility] CLIA [id number] [facility] [address] [place] Platelet mean volume (Bld) [Entitic vol] 11.1 fL Normal 9.0-12.7 [facility] Comment on above: Order Comment: Speci men Type: BLOOD SPECIMEN [facility] Address: [address] [place] [address] Performed By: #### 3 3959-8, 33962-2, 27854-6 #### [facility] CLIA [id number] [address] [place] [address] [place] Platelets (Bld) [#/Vol] 343 10*3/uL Normal 150-400 [facility] Comment on above: Order Comment: Speci men Type: BLOOD SPECIMEN [facility] Address: [address] [place] [address] Performed By: #### 3 3959-8, 31530-6, 88563-9 #### [facility] CLIA [id number] [address] [place] [address] [place] RBC (Bld) [#/Vol] 3.30 10*6/uL Low 4.20-6.00 [facility] Comment on above: Order Comment: Speci men Type: BLOOD SPECIMEN [facility] Address: [address] [place] [address] Performed By: #### 3 3959-8, 68214-8, 53338-6 #### [facility] CLIA [id number] [address] [place] [address] [place] WBC (Bld) [#/Vol] 12.71 10*3/uL High 3.70-11.00 [facility] Comment on above: Order Comment: Speci men Type: BLOOD SPECIMEN [facility] Address: [address] [place] [address] Performed By: #### 3 3959-8, 91339-9, 65673-4 #### [facility] CLIA [id number] [place] [address] [place] CONSULT PROGon 11-25-2023 CONSULT PROG HNO ID: [id number] Author: TONIA TARANGO APRN.CNP Service: Gastroenterology Author Type: Nurse Practitioner Type: Consult Progress Note Filed: 11/25/2023 15:10 Note Text: Brief GI plan of care: Patient was seen at bedside with Dr. Alatorre. Father present. Pt has had no further concern for ongoing GIB and hgb stable at 8.4. EGD was discussed as an option to pursue possible cause of UGIB given this is the patient's second episode over the past few months and he did have an approx 3 pt drop from baseline hgb. Dr. Alatorre explained in details the indication for EGD including risks and benefits; additionally the plan to give a paralytic to attempt to open the mouth wide enough to allow the scope to pass. He did explain this may or may not be successful and we may not be able to perform the EGD-father expressed understanding. Anesthesia has thoroughly reviewed case and will decide on safest medications for patient as well as safest location to be done. NPO after MN for procedure. Normal [facility] CRP SerPl-mCncon 11-25-2023 CRP [Mass/Vol] 3.8 mg/dL High <0.9 [facility] anastasia Comment on above: Order Comment: Speci karishma Type: BLOOD SPECIMENOrdering Facility: [facility] Address: [address] [place] [address] Performed By: #### 1 988-5, 78080-6, 17567-2, ####[facility] LABORATORYCLIA [id number] [place] [address] [place] Hepatic function 2000 panelo n 11-25-2023 Albumin [Mass/Vol] 2.7 g/dL Low 3.9-4.9 [facility]spital Comment on above: Order Comment: Gabrielai karishma Type: BLOOD SPECIMENOrdering Facility: [facility] Address: [address] [place] [address] Performed By: #### 1 988-5, 85292-1, 07010-4, ####[facility] LABORATORYCLIA [id number] [place] [address] [place] ALP [Catalytic activity/Vol] 90 U/L Normal 38-113 [facility] Comment on above: Order Comment: Speci men Type: BLOOD SPECIMENOrdering Facility: [facility] Address: [address] [place] [address] Performed By: #### 1 988-5, 52959-8, 80992-9, ####[facility]ITAL[facility] [id number] [place] [address] [place] ALT [Catalytic activity/Vol] 7 U/L Low 10-54 [facility] Comment on above: Order Comment: Speci men Type: BLOOD SPECIMENOrdering Facility: [facility] Address: [address] [place] [address] Performed By: #### 1 988-5, 98601-5, 18344-6, ####[facility]ITAL[facility] [id number] [place] [address] [place] AST [Catalytic activity/Vol] 11 U/L Low 14-40 [facility] Comment on above: Order Comment: Speci men Type: BLOOD SPECIMENOrdering Facility: [facility] Address: [address] [place] [address] Performed By: #### 1 988-5, 59081-2, 88854-0, ####[facility] [id number] [place] [address] [place] Bilirubin [Mass/Vol] 0.2 mg/dL Normal 0.2-1.3 [facility] Comment on above: Order Comment: Speci men Type: BLOOD SPECIMENOrdering Facility: [facility] Address: [address] [place] [address] Performed By: #### 1 988-5, 59810-1, 63411-6, ####[facility] LABORATORYIA [id number] [place] [address] [place] Bilirubin.conjugated [Mass/Vol] mg/dL Normal <0.2 [facility] Comment on above: Order Comment: Speci men Type: BLOOD SPECIMENOrdering Facility: [facility] Address: [facility] [place] [address] Performed By: #### 1 988-5, 82420-5, 37875-2, 81245-8 ####[facility] LABORATORYCLIA [id number] [place] [address] [place] Protein [Mass/Vol] 5.5 g/dL Low 6.3-8.0 [facility] ospital Comment on above: Order Comment: Speci men Type: BLOOD SPECIMENOrdering Facility: [facility] Address: [address] [place], [place] [address] [address] Performed By: #### 1 988-5, 62768-3, 56532-5, ####[facility] HOSPITALIA [id number] [place] [id number] [facility] Magnesium SerPl-mCncon 11-24 Magnesium [Mass/Vol] 2.0 mg/dL Normal 1.7-2.3 [facility] Comment on above: Order Comment: Speci men Type: BLOOD SPECIMENOrdering Facility: [facility] Address: [address] [place], [place] [address] [address] Performed By: #### 1 988-5, 03051-9, 22309-0, ####[facility] [id number] [place] [address] [place] NUTRITIONon 11-25-2023 NUTRITION HNO ID: [id number] Author: PATY XIONG RD Service: Nutrition Therapy Author Type: Registered Dietitian Type: Nutrition Filed: 11/25/2023 14:58 Note Text: NUTRITION THERAPY PROGRESS NOTE SERVICE DATE: 11/25/2023 SERVICE TIME: 1155 Nutrition Assessment: Recommended Malnutrition Diagnosis: Moderate Protein-Calorie Malnutrition (11/22/23 0915 : Paty Xiong RD) Estimated kilocalorie needs: 3248-5709 Calorie Calculation Method: (23-28 kcals/kg) Estimated protein needs (grams): 88-117 (146gm; 2gm/kg) Grams protein determined by: 1.2 - 1.6 g/kg Care Plan: NPO and start TFing today Enteral Nutrition Tube Feeding Formula Type: Osmolite 1.2 (Start today) Goal Rate (mL/hr x hours): 65mL x 24hrs:1560mL, 1872kcals, 87gm and 1279mL free water Water Flush Volume (mL x frequency: 125mL x 6/day (every 4hrs or per ICU MD) Modular: ProSouce NoCarb Neutral Recommended Enteral Access: PEG Parenteral Nutrition Recommended Parenteral Access: PICC Parenteral Needs: Discontinue (Let current bag of CPN finish and start TFing) Lipids: SMOFlipid (will pend to discontinue) Monitor and Evaluation: Monitor fluid/electrolyte balance, Monitor labs, I/Os, vital signs, weight, Monitor bowel function, Monitor tolerance to tube feeding, Meet greater than 75% of estimated needs Discharge Recommendations: Enteral Tube Feeding Enteral/Tube Feedings: As above Interval History: Follow up with pt today d/t TPN was started 3 days ago while r/o UGIB; 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 Anthropometrics: Height: 162.6 cm (5' 4 ) Weight: 76.2 kg (167 lb 15.9 oz) Dosing Weight: 76.2 kg (167 lb 15.9 oz) Body mass index is 28.84 kg/m?. Intake History: Current Nutrition Intake: Less than 50% estimated energy needs Current Intake Over time: (3-4 days) Average Daily Calorie Intake (kcal): 1113 kcal Average Daily Protein Intake (gm): 80 gm Average intake over: (2 full bags of PPN with one bag of lipids) Diet Orders (From admission, onward) Start Ordered 11/25/23 1400 DIET TUBE FEED - CONTIN (NO TRAY) START NOW Question Answer Comment TF Product (26 years and up) OSMOLITE 1.2 [place] Approved Secondary TF Product (Do Not Change) Isosource HN TF Total mL per 24 hours 1560 Number of Liter Bags 2 TF Goal Rate (mL/hr) 65 TF Route GASTROSTOMY TF Initial Rate (mL/hr) 15 TF Advance by (mL/hr) 10 TF Advance every (hrs) 4 TF Water Flush Amount (mL) 125 TF Water Flush Frequency Every 4 Hours TF Additive Product 1 (26 years and up) PROSOURCE NOCARB NEUTRAL TF Additive 1 Frequency (times/day) 3 11/25/23 1355 Stool Amount: WNL Stool Consistency: Semi-formed (11/23 1 soft BM) MNT Billing: $ Reassessment: 1-15 minutes SIGNATURE: Paty Xiong RD PATIENT NAME: Lolis Quinones III DATE: November 25, 2023 TIME: 2:55 PM Normal [facility] Phosphate [facility] 11-24 Phosphate [Mass/Vol] 3.4 mg/dL Normal 2.7-4.8 [facility] Comment on above: Order Comment: Speci men Type: BLOOD SPECIMENOrdering Facility: [facility] Address: [address] [place] [address] Performed By: #### 2 777-1 ####[facility] LABORATORYCLIA [id number] [facility] [place] [address] [facility] ALLIED HEALTH 11-24-2023 ALLIED HEALTH HNO ID: [id number] Author: BERENICE GARDUNO RT(R) Service: ? Author Type: Technologist Type: Allied Health Filed: 11/24/2023 18:38 Note Text: Radiology Service Progress Note PATIENT NAME: Lolis Quinones III DATE OF SERVICE: November 24, 2023 TIME: 6:38 PM PATIENT IDENTITY VERIFICATION COMPLETED USING TWO (2) IDENTIFIERS: Name and Date of confirmed by patient verbally and Name and Date of confirmed by identification band. FALL SCREENING: Has the patient had 2 falls in the last year or 1 fall with injury or currently using an Ambulatory Assistive Device (Walker, Cane, Wheelchair, Crutches, etc.)? Inpatient: Screened on floor PATIENT GENDER DATA: Male PATIENT RELEVANT IMPLANT DATA REVIEWED: Yes PATIENT PRESENTS WITH AN IMPLANTABLE OR ATTACHED ANALYTICAL STATISTICIAN: No RADIOLOGY DEPARTMENT: MR; Exam(s) Completed: Head: Routine Brain PERIPHERAL IV DATA: Not applicable SIGNED BY: RT Leonel(R)(MR) RT Milan(R) November 24, 2023 6:38 PM Normal [facility] Albumin [facility] 024 Albumin [Mass/Vol] 2.8 g/dL Low 3.9-4.9 [facility] Comment on above: Order Comment: Speci men Type: BLOOD SPECIMENOrdering Facility: [facility] Address: [address] [place] [address] Performed By: #### 2 4321-2, 7, , 2776-09 ####[facility] [id number] [place] [address] [place] Basic metabolic 2000 panelon 11-24-2023 Anion gap [Moles/Vol] 9 mmol/L Normal 9-18 [facility] Comment on above: Order Comment: Speci men Type: BLOOD SPECIMENOrdering Facility: [facility] Address: [address] [place] [address] Performed By: #### 2 4321-2, 1751-03, , 2776-09 ####[facility] [id number] [place] [address] [place] Calcium [Mass/Vol] 8.7 mg/dL Normal 8.5-10.2 [facility] Comment on above: Order Comment: Speci men Type: BLOOD SPECIMENOrdering Facility: [facility] Address: [address] [place] [address] Performed By: #### 2 4321-2, 1751-03, , 2776-09 ####[facility] [id number] [place] [address] [place] Chloride [Moles/Vol] 105 mmol/L Normal 97-105 [facility] Comment on above: Order Comment: Speci men Type: BLOOD SPECIMENOrdering Facility: [facility] Address: [address] [place] [address] Performed By: #### 2 4321-2, 1751-03, , 2776- ####[facility] [id number] [place] [address] [place] CO2 [Moles/Vol] 26 mmol/L Normal 22-30 [facility] Comment on above: Order Comment: Speci men Type: BLOOD SPECIMENOrdering Facility: [facility] Address: [address] [place] [address] Performed By: #### 2 4321-2, 1751-03, , 2776-09 ####[facility] LABORATORYCLIA [id number] [facility] [place] [address] [place] Creatinine [Mass/Vol] 0.46 mg/dL Low 0.73-1.22 [facility] Comment on above: Order Comment: Speci men Type: BLOOD SPECIMENOrdering Facility: [facility] Address: [address] [place] [address] Performed By: #### 2 4321-2, 1751-03, , 2776-09 ####[facility] LABORATORYCLIA [id number] [facility] [place] [address] [place] Creatinine and Glomerular filtration rate.predicted panel (S/P/Bld) 136 mL/min/1.73m??? Normal >=60 [facility] Comment on above: Order Comment: Gabrielai men Type: BLOOD SPECIMENOrdering Facility: [facility] Address: [address] [place] [address] Result Comment: Rae mated Glomerular Filtration Rate [...] reflect actual GFR. Performed By: #### 2 4321-2, 1751-03, , 2776-09 ####[facility] LABORATORYCLIA [id number] [place] [address] [place] Glucose [Mass/Vol] 102 mg/dL High 74-99 [facility] Comment on above: Order Comment: Speci men Type: BLOOD SPECIMENOrdering Facility: [facility] Address: [address] [place], [place] [id number] Result Comment: The [place] Diabetes Association (ADA) provides guidance for cutoff values for fasting glucose and random glucose. The ADA defines fasting as no caloric intake for at least 8 hours. Fasting plasma glucose results between 100 to 125 mg/dL indicate increased risk for diabetes (prediabetes). Fasting plasma glucose results greater than or equal to 126 mg/dL meet the criteria for diagnosis of diabetes. In the absence of unequivocal hyperglycemia, results should be confirmed by repeat testing. In a patient with classic symptoms of hyperglycemia or hyperglycemic crisis, random plasma glucose results greater than or equal to 200 mg/dL meet the criteria for diagnosis of diabetes. Reference: Standards of Medical Care in Diabetes 2016, [place] [employer] Association. Diabetes Care. 2016.39(Suppl 1). Performed By: #### 2 4321-2, 1751-03, , 2776-09 ####[facility] LABORATORYCLIA [id number] [facility] [place] [address] [place] Potassium [Moles/Vol] 3.9 mmol/L Normal 3.7-5.1 [facility] Comment on above: Order Comment: Speci men Type: BLOOD SPECIMENOrdering Facility: [facility] Address: [address] [place] [address] Performed By: #### 2 4321-2, 1751-03, , 2776-09 ####[facility] LABORATORYCLIA [id number] [place] [address] [place] Sodium [Moles/Vol] 140 mmol/L Normal 136-144 [facility]spital Comment on above: Order Comment: Speci men Type: BLOOD SPECIMENOrdering Facility: [facility] Address: [address] [place] [address] Performed By: #### 2 4321-2, 1751-03, , 2776-09 ####[facility] LABORATORYCLIA [id number] [place] [address] [place] Urea nitrogen [Mass/Vol] 11 mg/dL Normal 9-24 [facility] Comment on above: Order Comment: Speci men Type: BLOOD SPECIMENOrdering Facility: [facility] Address: [address] [place] [address] Performed By: #### 2 4321-2, 1751-7, 81186-6, 2777-1 ####[facility] LABORATORYCLIA [id number] [place] [address] [place] CBC panel Auto (Bld)on 11-23 Erythrocyte distribution width (RBC) [Ratio] 17.1 % High 11.5-15.0 [facility] Comment on above: Order Comment: Speci men Type: BLOOD SPECIMENOrdering Facility: [facility] Address: [address] [place] [address] Performed By: #### 5 8410-2 ####[facility] [id number] [address] [place] Hematocrit (Bld) [Volume fraction] 31.1 % Low 39.0-51.0 [facility] Comment on above: Order Comment: Speci men Type: BLOOD SPECIMENOrdering Facility: [facility] Address: [address] [place] [address] Performed By: #### 5 8410-2 ####[facility] [id number] [place] [address] [place] Hemoglobin (Bld) [Mass/Vol] 9.1 g/dL Low 13.0-17.0 [facility] Comment on above: Order Comment: Speci men Type: BLOOD SPECIMENOrdering Facility: [facility] Address: [address] [place] [address] Performed By: #### 5 8410-2 ####[facility] LABORATORYIA [id number] [place] [id number] [place] MCH (RBC) [Entitic mass] 25.1 pg Low 26.0-34.0 [facility] Comment on above: Order Comment: Speci men Type: BLOOD SPECIMENOrdering Facility: [facility] Address: [address] [place] [address] Performed By: #### 5 8410-2 ####[facility] LABORATORYCLIA [id number] [place] [address] [place] MCHC (RBC) [Mass/Vol] 29.3 g/dL Low 30.5-36.0 [facility] Comment on above: Order Comment: Speci men Type: BLOOD SPECIMENOrdering Facility: [facility] Address: [address] [place] [address] Performed By: #### 5 8410-2 ####[facility] [id number] [place] [address] [place] MCV (RBC) [Entitic vol] 85.7 fL Normal 80.0-100.0 [facility] Comment on above: Order Comment: Speci men Type: BLOOD SPECIMENOrdering Facility: [facility] Address: [address] [place] [address] Performed By: #### 5 8410-2 ####[facility] [id number] [place] [id number] [place] Nucleated RBC (Bld) [#/Vol] 10*3/uL Normal <0.01 [facility] Comment on above: Order Comment: Speci men Type: BLOOD SPECIMENOrdering Facility: [facility] Address: [address] [place] [address] Performed By: #### 5 8410-2 ####[facility] [id number] [place] [id number] [place] Platelet mean volume (Bld) [Entitic vol] 11.1 fL Normal 9.0-12.7 [facility] Comment on above: Order Comment: Speci men Type: BLOOD SPECIMENOrdering Facility: [facility] Address: [address] [place] [address] Performed By: #### 5 8410-2 ####[facility] [id number] [place] [address] [place] Platelets (Bld) [#/Vol] 347 10*3/uL Normal 150-400 [facility] Comment on above: Order Comment: Speci men Type: BLOOD SPECIMENOrdering Facility: [facility] Address: [address] [place] [address] Performed By: #### 5 8410-2 ####[facility] [id number] [place] [address] [facility] RBC (Bld) [#/Vol] 3.63 10*6/uL Low 4.20-6.00 [facility] Comment on above: Order Comment: Speci men Type: BLOOD SPECIMENOrdering Facility: [facility] Address: [address] [place] [address] Performed By: #### 5 8410-2 ####[facility] [id number] [place] [address] [facility] WBC (Bld) [#/Vol] 12.34 10*3/uL High 3.70-11.00 [facility] Comment on above: Order Comment: Speci men Type: BLOOD SPECIMENOrdering Facility: [facility] Address: [address] [place] [address] Performed By: #### 5 8410-2 ####[facility] [id number] [place] [id number] [facility] CONSULTon 11-24-2023 CONSULT HNO ID: [id number] Author: CAROLINA VILLALBA MD, PhD Service: Neurology General Author Type: Physician Type: Consults Filed: 11/24/2023 15:20 Note Text: TELENEUROLOGY VISIT - NEW CONSULTATION Name and :Lolis Quinones III 1985 Patient consented to teleneurology visit on order for consult. The Teleneurologist or MARIZA is available from 8 am to 5 pm on WEEKDAYS. Rounding hours are: [facility]: 1 pm to 5 pm [place]: 1 pm to 4:30 pm [facility]: 8 am to 12 pm [place]: 8 am to 10 am [place]: 1 pm to 5 pm [place]: 1 pm to 5 pm [facility]: 10 am to 12 pm During weekends, coverage is only during rounding hours. [facility]: 1 pm to 5 pm [place]: 8 am to 12 pm [facility]: 8 am to 12 pm [facility]: 10 am to 12 pm [place]: 1 pm to 5 pm [place]: 1 pm to 5 pm [facility]: 8 am to to 12 pm Statutory holidays do not have teleneuro coverage. [facility]: During Off hours for Teleneurology please page (not call) [place] [facility] [phone] communication spec for concerns. [place]: During Off hours for Teleneurology please page (not call) [place] [facility] [phone] communication spec for concerns. [facility]: There is no off-hours coverage for Teleneurology. Name: Lolis Quinones III Age: [age] year old Gender: male Reason for consult: tremor and involuntary eye movements in pt with locked in syndrome . Admission Date: 11/21/2023 Consult Requested By: Ivan Cook, recommendations will be communicated by shared medical record. 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 Mom concerned about: - head tremor since 11/22 PM or 11/23 AM - 1 week ago mentioned visual hallucinations of people he knows that he's had since his stroke; occurs throughout the day. - eye movements up/down since 11/23 AM - normally right eye goes towards his nose, left eye does not drift towards his nose. Now his left eye has been drifting towards his nose. - spasmodic movements since stroke, curling forwards Communicates with eyes. Looking up = no. Looking down = yes. History of sacral decubitus ulcer. Admitted with aspiration PNA and vomiting; has trach and PEG. 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 due to left-sided weakness, slurred speech, diplopia. While there, he was noted to have tonic posturing of his extremities and was given a total of 6 mg of Ativan after suspecting seizures. Due to his ongoing posturing he was loaded with levetiracetam, intubated and sedated, and transferred to [facility] for further evaluation management. His initial CT head without contrast was negative. 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 MR venogram head was negative for any venous sinus thrombosis. The patient continued to be intubated with minimal responsiveness while off sedation with reactive pupils and negative corneals and cough. 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 On his second day of admission, patient was noted to have intact vertical eye movement with restricted horizontal movements. He was able to open his eyes and move vertically in response to commands however he had no spontaneous movements over his 4 limbs. Given these findings, the patient was thought to be in locked in syndrome especially given his MRI findings of pontomedullary infarcts. He was started on aspirin 81 mg once daily and subcu heparin for DVT prophylaxis. Given his MRI findings, his abnormal movements initially were thought to be posturing due to brainstem infarct not due to seizures, video EEG monitoring was discontinued, antiepileptics including levetiracetam and valproic acid were weaned down and eventually discontinued. The patient continued to show a stable exam consistent with locked-in syndrome with intact consciousness and no spontaneous/purposeful movements over his 4 extremities. After discussion with his family, we proceeded with tracheostomy and PEG tube placement, both were placed on 06/20/2023. His stay was complicated with many problems including pneumonia treated with antibiotics, blurry effusion treated with furosemide, prolonged bed stay complicated by stage I decubitus ulcer, dysphagia due to mental status and weakness managed with PEG tube placement, respirator (more content not included)... [facility] CONSULT PROGon 11-24-2023 CONSULT PROG HNO ID: [id number] Author: JOSE ROE MD Service: Infectious Disease Author Type: Physician Type: Consult Progress Note Filed: 11/24/2023 10:03 Note Text: INFECTIOUS DISEASE CONSULT SERVICE PROGRESS NOTE Date: November 24, 2023 Patient Name: Lolis Quinones III Examined and assessed parents in room Patient in ICU on respirator Locked-in syndrome History reviewed locked-in syndrome due to stroke last May Has been in subacute facility Communicates with eyes Looking up means no looking down means yes with mom he states seeing some hallucininations but not auditory Interval Events: No new issues overnight MEDICATIONS Medications reviewed. Current antibiotics include: meropenem EXAMINATION: Vital signs: BP 117/80 Pulse 111 Temp 37.2 ?C (99 ?F) (Axillary) Resp 27 Ht 162.6 cm (5' 4 ) Wt 76.7 kg (169 lb 1.5 oz) SpO2 93% BMI 29.02 kg/m? Constitutional: no distress, resting comfortably on baseline vent settings does communicate with eyes movements intubated via tracheostomy Skin: no rash Eyes: no scleral icterus Head/Face/Neck: supple neck Respiratory/Chest: clear bilaterally anteriorly but slightly diminished, no crackles or rhonchi, no wheeze Cardiovascular: rrr, no murmur Gastrointestinal: non tender, normal sounds, nondistended PEG tube in place : Iverson in place not turned but photo of deep sacral decubitus in chart (appears clean) Musculoskeletal: no joint swelling Extremities: contractures no rash, no edema Exam unchanged as compared with 11/22 other than edited above. Personally reivewed imaging studies, lab results, and microbiology results. LABORATORY DATA: Lab reviewed MICROBIOLOGY DATA: 11/20 l ( klebsiella and acientobacter susceptibilities pending) urine cx klebsiella pneumonia >100,000 Antibiotic Interpretation Method Status Ampicillin Resistant MINIMUM INHIBITORY CONCENTRATION(VITEK) Final Cefazolin Resistant MINIMUM INHIBITORY CONCENTRATION(VITEK) Final For uncomplicated urinary tract infections, cefazolin results can be used to predict susceptibility or resistance to cephalexin. Ceftriaxone Resistant MINIMUM INHIBITORY CONCENTRATION(VITEK) Final Cefepime Resistant MINIMUM INHIBITORY CONCENTRATION(VITEK) Final Ertapenem Susceptible MINIMUM INHIBITORY CONCENTRATION(VITEK) Final Meropenem Susceptible MINIMUM INHIBITORY CONCENTRATION(VITEK) Final Gentamicin Susceptible MINIMUM INHIBITORY CONCENTRATION(VITEK) Final Tobramycin Susceptible MINIMUM INHIBITORY CONCENTRATION(VITEK) Final Trimeth sulfameth Resistant MINIMUM INHIBITORY CONCENTRATION(VITEK) Final Ciprofloxacin Intermediate MINIMUM INHIBITORY CONCENTRATION(VITEK) Final Nitrofurantoin Resistant MINIMUM INHIBITORY CONCENTRATION(VITEK) Final 11/20 blood cx NGTD 08/13/2023: Respiratory culture from [facility] with ESBL Klebsiella (obtained from care everywhere) Other microbiology data: 11/21/2023: Strep pneumo urine antigen negative, Legionella urine antigen pending 11/21/2023: Staph aureus nasal PCR negative 11/21/2023: COVID-19, influenza, RSV testing negative imaging 11/22/2023 CT abd and chest reviewed 1. Consolidation and airways disease throughout the right lower lobe and in the posterior aspects of the remaining right lung. Left lower lung consolidation with a small left pleural effusion. Bilateral subsegmental airway mucus plugging. Findings are concerning for pneumonia or other pneumonitis such as aspiration. 2. Redemonstration of a sacral decubitus ulcer, which appears mildly smaller compared to the prior exam. No underlying osseous erosions to suggest acute osteomyelitis. Consolidation and airways disease throughout the right lower lobe and in the posterior aspects of the remaining right lung. Left lower lung consolidation with a small left pleural effusion. Bilateral subsegmental airway mucus plugging. Findings are concerning for pneumonia or other pneumonitis such as aspiration. ASSESSMENT: Aspiration pneumonia in the setting of tracheostomy chronic vent dependence --- Patient with history of chronic trach with ventilator dependence, and PEG tube presenting with increased shortness of breath, fevers, and leukocytosis after reported vomiting episodes prior to admission and in the ED --- Patient was febrile to 38.5 with a leukocytosis of 21.88 on admission --- Sputum cultures are pending with mixed sumanth and gram-positive diplococci but Staph aureus MRSA swab was negative --- Has a prior history of ESBL Klebsiella from sputum cultures in [place] --- Patient is currently stable on his baseline vent settings, white count is trending down, fevers also down --- CT of the chest demonstrating consolidations in the bilateral lungs, with some evidence of mucous plugging --- Given his reported vomiting episodes, most likely has developed aspiration pneumonia --- He is currently on IV meropenem with Acinetobacter and (more content not included)... Normal [facility] MRI BRAIN WO IVCONon 024 MRI BRAIN WO IVCON * * *Final Report* * * DATE OF EXAM: Nov 24 2023 6:29PM [facility] 0294 - MRI BRAIN WO IVCON / PROCEDURE REASON: Stroke, follow up * * * * Physician Interpretation * * * * EXAMINATION: MRI BRAIN WO IVCON CLINICAL HISTORY: Stroke follow-up. TECHNIQUE: Routine noncontrast MRI protocol including diffusion images. MQ: [id number] COMPARISON: None. RESULT: Acute Change: There is no evidence of restricted diffusion to suggest an acute infarct. Hemorrhage: Prior hemorrhage is present in the brainstem around the dilated tortuous left intracranial vertebral artery and basilar artery which indent the medulla and adalberto. Mass Lesion/ Mass Effect: No evidence of an intracranial mass or extra-axial fluid collection. No significant mass effect. Chronic Change: Mild chronic microvascular ischemic change. Remote pontine infarct. Parenchyma: There is moderate generalized parenchymal volume loss. The brain parenchyma is otherwise within normal limits of signal intensity and morphology. Ventricles: Ventriculomegaly corresponds to the degree of parenchymal volume loss. Skull Base: Hypothalamic and pituitary region are grossly normal. 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 Severe degenerative changes C3-4 and inferiorly extend off the ewqpz-km-olxf of the brain examination. No significant marrow replacement process. Vasculature: Marked dilation and tortuosity of the left intracranial vertebral artery and the proximal basilar artery indenting the adalberto and medullary junction on the left aspect of the medulla.. Other: The visualized paranasal sinuses and mastoid air cells are clear. The orbits and extracranial soft tissues are unremarkable. IMPRESSION: No acute infarct or any other evidence of an acute intracranial abnormality. Marked tortuosity and dilation of the left intracranial vertebral artery and proximal basilar artery which indents the adalberto and adjacent medulla. There is associated remote ischemic change and prior petechial hemorrhage in the brainstem around the dilated vessel. Minimal microvascular ischemic change and moderate volume loss. Suspect advanced cervical spondylosis C3-4 and inferiorly, only partially included in the vundf-jz-iqmc of the examination. Chemical Pathologist: BENOIT Transcribe Date/Time: Nov 24 2023 6:30P Dictated by : SERGEI JOSEPH MD This examination was interpreted and the report reviewed and electronically signed by: SERGEI JOSEPH MD on Nov 24 2023 6:34PM EST [id number] Normal [facility] Magnesium SerPl-mCncon 11-23 Magnesium [Mass/Vol] 1.9 mg/dL Normal 1.7-2.3 [facility] Comment on above: Order Comment: Speci men Type: BLOOD SPECIMENOrdering Facility: [facility] Address: [address] [place] [address] Performed By: #### 2 4321-2, 1751-7, 63665-4, 2777-1 ####[facility] LABORATORYCLIA [id number] [facility] [place] [address] [place] NUTRITIONon 11-24-2023 NUTRITION HNO ID: [id number] Author: ALDA WONG RD Service: Nutrition Therapy Author Type: Registered Dietitian Type: Nutrition Filed: 11/24/2023 11:02 Note Text: PARENTERAL NUTRITION PROGRESS NOTE SERVICE DATE: 11/24/2023 SERVICE TIME: 1020 RD offsite for weekend coverage, assessment completed remotely Nutrition Assessment: Recommended Malnutrition Diagnosis: Moderate Protein-Calorie Malnutrition (11/22/23 0915 : Paty Xiong RD) In the context of: Acute Illness or Injury Based on: Muscle Loss, Unintentional Weight Loss Recommendations: Enteral Nutrition Tube Feeding Formula Type: Osmolite 1.2 (TF on hold for possible GIB) Goal Rate (mL/hr x hours): 65mL x 24hrs:1560mL, 1872kcals, 87gm and 1279mL free water Water Flush Volume (mL x frequency: 125mL x 6/day (every 4hrs or per ICU MD) Modular: ProSouce NoCarb Neutral (TID for 45 extra grams of protein (total 132gm; 1.8gm/73.2kg)) Recommended Enteral Access: PEG (currently on hold) Parenteral Nutrition Recommended Parenteral Access: PICC (being placed today 11/23) Parenteral Needs: Continue Indications: GI Bleed PN Type: CPN Volume (mL): 2000 Infusion Hours: 24 PN Additives: Zinc Lipids: SMOFlipid Dextrose: (915 kcal, increased by 100 g dextrose, transition to TPN) Protein: At goal Interval History: - TF remains on hold d/t GIB - ADDENDUM: PICC placed today, transition to TPN. Dextrose increased. Changes highlighted above Parenteral Nutrition Assessment: Stool Amount: (11/21) MNT Billing: $ Routine Care : 1-15 minutes SIGNATURE: Alda Wong RD PATIENT NAME: Lolis Quinones III DATE: November 24, 2023 TIME: 10:24 AM Normal [facility] PT EDon 11-24-2023 PT ED HNO ID: [id number] Author: JENNIFER EVANS RN Service: PICC Team Author Type: Registered Nurse Type: Patient Education Filed: 11/24/2023 10:37 Note Text: AMBULATORY PATIENT EDUCATION TOPIC: procedure: PICC READINESS TO LEARN COGNITIVE ABILITY: critically ill, unable to assess MOTIVATION TO LEARN: Critically Ill FAMILY SUPPORT: High - Very involved in pt care INSTRUCTION PROVIDED TO: Patient and family member PATIENT LEARNS BEST BY: Individual Instruction Verbal Instruction FACTORS AFFECTING LEARNING: None PHYSICAL LIMITATIONS AFFECTING LEARNING: Critically ill LEARNING RESPONSE DIAGNOSIS: infection METHOD OF INSTRUCTION: Individual instruction Verbal instruction PATIENT / FAMILY RESPONSE: Verbalizes understanding of: POST-PROCEDURE INSTRUCTIONS-Correct actions to take to reduce post procedure complications PRE-PROCEDURE INSTRUCTIONS-Correct action to take to follow pre-procedure instructions FOLLOW-UP PLAN: Recommend - Recommend continued instruction and follow up as directed SUPPLEMENTAL MATERIAL: None REFERRAL (RECOMMENDATION): None Electronically Signed By: Jennifer Evans RN In Department: [facility] Normal [facility] Phosphate [Mass/Vol] 3.8 mg/dL Normal 2.7-4.8 [facility] Comment on above: Order Comment: Speci men Type: BLOOD SPECIMENOrdering Facility: [facility] Address: [address] [place] [address] Performed By: #### 2 4321-2, 1751-7, 20056-5, 2776-1 ####[facility] LABORATORYCLIA [id number] [address] OF [facility] Albumin [facility] Albumin [Mass/Vol] 2.8 g/dL Low 3.9-4.9 [facility] Comment on above: Order Comment: Darwin schwarz Type: BLOOD SPECIMENOrdering Facility: [facility] Address: [address] [place] [address] Performed By: #### 1 751-7, 2777-1, 09662-9, 75385-7 ####[facility] LABORATORYCLIA [id number] [place] [address] [place] Basic metabolic 2000 panelon 11-23-2023 Anion gap [Moles/Vol] 9 mmol/L Normal 9-18 [facility] Comment on above: Order Comment: Speci men Type: BLOOD SPECIMENOrdering Facility: [facility] Address: [address] [place] [address] Performed By: #### 1 751-7, 2777-1, 50953-2, 28511-8 ####[facility] LABORATORYCLIA [id number] [place] [address] [place] Calcium [Mass/Vol] 8.8 mg/dL Normal 8.5-10.2 [facility] Comment on above: Order Comment: Speci men Type: BLOOD SPECIMENOrdering Facility: [facility] Address: [address] [place] [address] Performed By: #### 1 751-7, 2777-1, , 21696-2 ####[facility]OSPITALIA [id number] [place] [address] [place] Chloride [Moles/Vol] 107 mmol/L High 97-105 [facility] Comment on above: Order Comment: Speci men Type: BLOOD SPECIMENOrdering Facility: [facility] Address: [address] [place] [address] Performed By: #### 1 751-7, 2777-1, , 16007-4 ####[facility]OSPITALIA [id number] [place] [address] [place] CO2 [Moles/Vol] 30 mmol/L Normal 22-30 [facility] ital Comment on above: Order Comment: Speci men Type: BLOOD SPECIMENOrdering Facility: [facility] Address: [address] [place] [address] Performed By: #### 1 751-7, 2777-1, , 99391-6 ####[facility] LABORATORYIA [id number] [place] [address] [place] Creatinine [Mass/Vol] 0.58 mg/dL Low 0.73-1.22 [facility] Comment on above: Order Comment: Darwin schwarz Type: BLOOD SPECIMENOrdering Facility: [facility] Address: [address] [place] [address] Performed By: #### 1 751-7, 2777-1, 30364-9, 32949-6 ####[facility] LABORATORYCLIA [id number] [place] [address] [place] Creatinine and Glomerular filtration rate.predicted panel (S/P/Bld) 127 mL/min/1.73m??? Normal >=60 [facility] Comment on above: Order Comment: [facility] Type: BLOOD SPECIMENOrdering Facility: [facility] Address: [address] [place] [address] Result Comment: Rae mated Glomerular Filtration Rate [...] reflect actual GFR. Performed By: #### 1 751-7, 2777-1, 94311-5, 68110-5 ####[facility] LABORATORYCLIA [id number] [place] [address] [place] Glucose [Mass/Vol] 123 mg/dL High 74-99 [facility] Comment on above: Order Comment: Darwin schwarz Type: BLOOD SPECIMENOrdering Facility: [facility] Address: [address] [place] [address] Result Comment: The [place] [employer] (ADA) provides guidance for cutoff values for fasting glucose and random glucose. The ADA defines fasting as no caloric intake for at least 8 hours. Fasting plasma glucose results between 100 to 125 mg/dL indicate increased risk for diabetes (prediabetes). Fasting plasma glucose results greater than or equal to 126 mg/dL meet the criteria for diagnosis of diabetes. In the absence of unequivocal hyperglycemia, results should be confirmed by repeat testing. In a patient with classic symptoms of hyperglycemia or hyperglycemic crisis, random plasma glucose results greater than or equal to 200 mg/dL meet the criteria for diagnosis of diabetes. Reference: Standards of Medical Care in Diabetes 2016, [place] [employer]. Diabetes Care. 2016.39(Suppl 1). Performed By: #### 1 751-7, 2777-, , 76556-4 ####[facility] LABORATORYCLIA [id number] [facility] [place] [address] [place] Potassium [Moles/Vol] 3.3 mmol/L Low 3.7-5.1 [facility] Comment on above: Order Comment: Speci men Type: BLOOD SPECIMENOrdering Facility: [facility] Address: [address] [place] [address] Performed By: #### 1 751-7, 2776-, , ####[facility] LABORATORYCLIA [id number] [place] [address] [place] Sodium [Moles/Vol] 146 mmol/L High 136-144 [facility] Comment on above: Order Comment: Speci [facility] Type: BLOOD SPECIMENOrdering Facility: [facility] Address: [address] [place] [id number] Performed By: #### 1 751-7, 27703-09, , ####[facility] VISTACLIA [id number] [place] [address] [place] Urea nitrogen [Mass/Vol] 14 mg/dL Normal 9-24 [facility] Comment on above: Order Comment: Speci men Type: BLOOD SPECIMENOrdering Facility: [facility] Address: [address] [place] [address] Performed By: #### 1 751-7, 2776-09, , 65855-7 ####[facility] LABORATORYIA [id number] [facility] [place] [address] [place] CBC panel Auto (Bld)on 11-22 Erythrocyte distribution width (RBC) [Ratio] 16.7 % High 11.5-15.0 [facility] Comment on above: Order Comment: Speci men Type: SWAB OF INTERNAL NOSE [facility] Address: [address] [place] [address] Performed By: #### S APCR #### [facility] CLIA [id number] [address] [place] [address] [place] Hematocrit (Bld) [Volume fraction] 28.3 % Low 39.0-51.0 [facility] Comment on above: Order Comment: Speci men Type: SWAB OF INTERNAL NOSE [facility] Address: [address] [place] [address] Performed By: #### S APCR #### [facility] CLIA [id number] [address] [place] [address] [place] Hemoglobin (Bld) [Mass/Vol] 8.2 g/dL Low 13.0-17.0 [facility] Comment on above: Order Comment: Speci men Type: SWAB OF INTERNAL NOSE [facility] Address: [address] [place] [address] Performed By: #### S APCR #### [facility] CLIA [id number] [address] [place] [address] [place] MCH (RBC) [Entitic mass] 25.2 pg Low 26.0-34.0 [facility] Comment on above: Order Comment: Speci men Type: SWAB OF INTERNAL NOSE [facility] Address: [address] [place] [address] Performed By: #### S APCR #### [facility] CLIA [id number] [address] [place] [address] [place] MCHC (RBC) [Mass/Vol] 29.0 g/dL Low 30.5-36.0 [facility] Comment on above: Order Comment: Speci men Type: SWAB OF INTERNAL NOSE [facility] Address: [address] [place] [address] Performed By: #### S APCR #### [facility] CLIA [id number] [address] [place] [address] [place] MCV (RBC) [Entitic vol] 86.8 fL Normal 80.0-100.0 [facility] Comment on above: Order Comment: Speci men Type: SWAB OF INTERNAL NOSE [facility] Address: [address] [place] [address] Performed By: #### S APCR #### [facility] CLIA [id number] [address] [place] [address] [place] Nucleated RBC (Bld) [#/Vol] 10*3/uL Normal <0.01 [facility] Comment on above: Order Comment: Speci men Type: SWAB OF INTERNAL NOSE [facility] Address: [address] [place] [address] Performed By: #### S APCR #### [facility] CLIA [id number] [address] [place] [address] [place] Platelet mean volume (Bld) [Entitic vol] 10.9 fL Normal 9.0-12.7 [facility] Comment on above: Order Comment: Speci men Type: SWAB OF INTERNAL NOSE [facility] Address: [address] [place] [address] Performed By: #### S APCR #### [facility] CLIA [id number] [address] [place] [address] [place] Platelets (Bld) [#/Vol] 356 10*3/uL Normal 150-400 [facility] Comment on above: Order Comment: Speci men Type: SWAB OF INTERNAL NOSE [facility] Address: [address] [place] [address] Performed By: #### S APCR #### [facility] CLIA [id number] [address] [place] [address] [place] RBC (Bld) [#/Vol] 3.26 10*6/uL Low 4.20-6.00 [facility] Comment on above: Order Comment: Speci men Type: SWAB OF INTERNAL NOSE [facility] Address: [address] [place] [address] Performed By: #### S APCR #### [facility] CLIA [id number] [address] [place] [address] [place] WBC (Bld) [#/Vol] 12.18 10*3/uL High 3.70-11.00 [facility] Comment on above: Order Comment: Speci men Type: SWAB OF INTERNAL NOSE [facility] Address: [address] [place] [address] Performed By: #### S APCR #### [facility] CLIA [id number] [address] [place] [address] [place] CONSULT PROGon 11-23-2023 CONSULT PROG HNO ID: [id number] Author: JOSE ROE MD Service: Infectious Disease Author Type: Physician Type: Consult Progress Note Filed: 11/23/2023 13:58 Note Text: INFECTIOUS DISEASE CONSULT SERVICE PROGRESS NOTE Date: November 23, 2023 Patient Name: Lolis Quinones III Examined and assessed Patient in ICU on respirator Locked-in syndrome Brother at 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 Current antibiotics include: meropenem EXAMINATION: Vital signs: BP 109/67 Pulse 113 Temp 36.9 ?C (98.5 ?F) (Axillary) Resp 20 Ht 162.6 cm (5' 4 ) Wt 75.8 kg (167 lb 1.7 oz) SpO2 96% BMI 28.68 kg/m? Constitutional: no distress, resting comfortably on baseline vent settings does communicate with eyes movements intubated via tracheostomy Skin: no rash Eyes: no scleral icterus Head/Face/Neck: supple neck Respiratory/Chest: clear bilaterally anteriorly but slightly diminished, no crackles or rhonchi, no wheeze Cardiovascular: rrr, no murmur Gastrointestinal: non tender, normal sounds, nondistended : Iverson in place not turned but photo of deep sacral decubitus in chart (appears clean) Musculoskeletal: no joint swelling Extremities: contractures no rash, no edema LABORATORY DATA: Lab reviewed MICROBIOLOGY DATA: 11/20 lac positive gnb (likely klebsiella) urine cx klebsiella pneumonia >100,000 11/20 blood cx NGTD 08/13/2023: Respiratory culture from [facility] with ESBL Klebsiella (obtained from care everywhere) Other microbiology data: 11/21/2023: Strep pneumo urine antigen negative, Legionella urine antigen pending 11/21/2023: Staph aureus nasal PCR negative 11/21/2023: COVID-19, influenza, RSV testing negative imaging 11/22/2023 CT abd and chest reviewed 1. Consolidation and airways disease throughout the right lower lobe and in the posterior aspects of the remaining right lung. Left lower lung consolidation with a small left pleural effusion. Bilateral subsegmental airway mucus plugging. Findings are concerning for pneumonia or other pneumonitis such as aspiration. 2. Redemonstration of a sacral decubitus ulcer, which appears mildly smaller compared to the prior exam. No underlying osseous erosions to suggest acute osteomyelitis. Consolidation and airways disease throughout the right lower lobe and in the posterior aspects of the remaining right lung. Left lower lung consolidation with a small left pleural effusion. Bilateral subsegmental airway mucus plugging. Findings are concerning for pneumonia or other pneumonitis such as aspiration. ASSESSMENT: Aspiration pneumonia in the setting of tracheostomy chronic vent dependence --- Patient with history of chronic trach with ventilator dependence, and PEG tube presenting with increased shortness of breath, fevers, and leukocytosis after reported vomiting episodes prior to admission and in the ED --- Patient was febrile to 38.5 with a leukocytosis of 21.88 on admission --- Sputum cultures are pending with mixed sumanth and gram-positive diplococci but Staph aureus MRSA swab was negative --- Has a prior history of ESBL Klebsiella from sputum cultures in [place] --- Patient is currently stable on his baseline vent settings, white count is trending down, fevers also down --- CT of the chest demonstrating consolidations in the bilateral lungs, with some evidence of mucous plugging --- Given his reported vomiting episodes, most likely has developed aspiration pneumonia --- He is currently on IV meropenem and vancomycin, okay to discontinue vancomycin 2. Coffee-ground emesis --- Hemoglobin from 9-7.5 today, patient presenting with episodes of vomiting --- GI on board and unable to proceed with endoscopy is unable to open jaw to pass scope --- Was on apixaban for history of DVT, on hold 3. History of sacral decubitus ulcer, complicated by prior myositis --- Patient treated for left piriformis and obturator intermedius muscle fluid collections, suspected pyogenic myositis with a course of IV meropenem back in October --- Reviewed sacral wound images and discussed the case with wound care, the wound appears to be clean with no purulent drainage and healthy tissue --- A follow-up CT abdomen/pelvis this admission with decrease in size of the decubitus ulcer and no obvious abscess within the limitation of noncontrast CT SUGGESTIONS / PLAN: 1. Continue IV meropenem 2. Follow sputum culture results and tailor antibiotics accordingly spoke with brother at [facility] I spent a total of 35 minutes on the date of the service which included preparing to see the patient, [id number] patient care, completing clinical documentation, obtaining and/or reviewing separately obtained (more content not included)... Normal [facility] Fibrinogen PPP-[facility] 2023 Fibrinogen Coag (PPP) [Mass/Vol] 719 mg/dL High 200-400 [facility] Comment on above: Order Comment: Speci men Type: BLOOD SPECIMEN [facility] Address: [address] [place] [address] Performed By: #### 3 3959-8, 69047-8, 30616-2 #### [facility] CLIA [id number] [facility] [place] [address] [place] Magnesium SerPl-[facility] 11-22 Magnesium [Mass/Vol] 2.0 mg/dL Normal 1.7-2.3 [facility] Comment on above: Order Comment: Speci men Type: BLOOD SPECIMENOrdering Facility: [facility] Address: [address] [place] [address] Performed By: #### 1 751-7, 2777-1, 93465-2, 70879-6 ####[facility] LABORATORYCLIA [id number] [place], [place] [address] [place] [address] NUTRITIONon 11-23-2023 NUTRITION HNO ID: [id number] Author: ALDA WONG RD Service: Nutrition Therapy Author Type: Registered Dietitian Type: Nutrition Filed: 11/23/2023 14:26 Note Text: PARENTERAL NUTRITION PROGRESS NOTE SERVICE DATE: 11/23/2023 SERVICE TIME: 1400 Nutrition Assessment: Recommended Malnutrition Diagnosis: Moderate Protein-Calorie Malnutrition (11/22/23 0915 : Paty Xiong RD) In the context of: Acute Illness or Injury Based on: Muscle Loss, Unintentional Weight Loss Recommendations: Enteral Nutrition Tube Feeding Formula Type: Osmolite 1.2 (TF on hold for possible GIB) Goal Rate (mL/hr x hours): 65mL x 24hrs:1560mL, 1872kcals, 87gm and 1279mL free water Water Flush Volume (mL x frequency: 125mL x 6/day (every 4hrs or per ICU MD) Modular: ProSouce NoCarb Neutral (TID for 45 extra grams of protein (total 132gm; 1.8gm/73.2kg)) Recommended Enteral Access: PEG ((currently on hold)) Parenteral Nutrition Recommended Parenteral Access: (P-IV) Parenteral Needs: Continue Indications: GI Bleed PN Type: PPN Volume (mL): 2000 Infusion Hours: 24 Electrolytes: Increase Increase Lytes: increase slightly kphos, limited d/t ppn PN Additives: Zinc Lipids: SMOFlipid Dextrose: Increase (575 kcal limited d/t ppn) Protein: At goal (for pn) Interval History: - PN infusing - Plan to return to TF as able Parenteral Nutrition Assessment: High Lab Interpretation: Na;Cl Low Lab Interpretation: Creatinine;K+ Glucose: WNL (99-118 mg/dl x 24 hours) Input/Output Assessment: Positive fluid balance Temperature: Afebrile Edema/Ascites: Generalized MNT Billing: $ Reassessment: 1-15 minutes SIGNATURE: Alda Wong RD PATIENT NAME: Lolis Quinones III DATE: November 23, 2023 TIME: 2:23 PM Normal [facility] PT panel Coag (PPP)on 2023 INR Coag (PPP) [Relative time] 1.2 {INR} Normal 0.9-1.3 [facility] Comment on above: Order Comment: Darwin schwarz Type: BLOOD SPECIMEN [facility] [facility] Address: [address] [place] [address] Result Comment: Edilma min K Antagonist (VKA) Therapeutic Range: INR 2 to 3 (Target INR of 2.5) Note: For patients treated with VKA drugs, such as warfarin, the [place] [employer] 2012 Guideline recommends a therapeutic INR range of 2 to 3 (target INR of 2.5). This recommendation includes high-risk patients with antiphospholipid syndrome with previous arterial or venous thromboembolism, current-generation mechanical or bioprosthetic aortic heart valve replacement. Note: Patients with mechanical aortic valve replacement and additional risk factors for thromboembolic events (atrial fibrillation, previous thromboembolism, LV dysfunction, hypercoagulable conditions) or an older generation mechanical AVR (i.e., ball in-Cage) or any mechanical MVR should have a INR therapeutic range of 2.5 to 3.5 (target INR of 3). Holger LLANES, et al. Chest 2012, 141:7S-47S Oh RA, et al. [facility] 2017, 70: 252-289 Performed By: #### 3 3959-8, 02485-9, 64788-2 #### [facility] CLIA [id number] [facility] [place] [address] [place] PT Coag (PPP) [Time] 12.4 s Normal 9.7-13.0 [facility] Comment on above: Order Comment: Darwin schwarz Type: BLOOD SPECIMEN Ordering Facility: [facility] Address: [address] [place] [address] Performed By: #### 3 3959-8, 51840-0, 70391-8 #### [facility] CLIA [id number] [facility] [place] [address] [place] Phosphate SerPl-mCncon 11-22 Phosphate [Mass/Vol] 2.8 mg/dL Normal 2.7-4.8 [facility] Comment on above: Order Comment: Darwin schwarz Type: BLOOD SPECIMENOrdering Facility: [facility] Address: [address] [place] [address] Performed By: #### 1 751-7, 2777-1, 09309-6, 67581-1 ####[facility]ORY[facility]IA [id number] [place] [address] [place] aPTT PPPon 11-23-2023 aPTT Coag (PPP) [Time] 33.7 s High 23.0-32.4 [facility] Comment on above: Order Comment: Speci men Type: BLOOD SPECIMEN Ordering Facility: [facility] Address: [address] [place] [address] Performed By: #### 3 3959-8, 29422-0, 12281-3 #### [facility] CLIA [id number] [address] [place] [address] [place] Bacteria Spec Resp Culton Bacteria identified Respiratory culture Nom (Unsp spec) ORGANISM ID: 1 Many Acinetobacter baumannii complex ORGANISM ID: 2 Few Klebsiella pneumoniae GRAM STAIN: Moderate Gram negative diplococci Rare Mixed oral sumanth Many Polymorphonuclear leukocytes Abnormal [facility] Comment on above: Performed By: #### 3 2355-0 ####[facility] LABCLIA [id number] [address] [address] [place] Basic metabolic 2000 panelon 11-22-2023 Anion gap [Moles/Vol] 9 mmol/L Normal 9-18 [facility] Comment on above: Order Comment: Speci men Type: BLOOD SPECIMEN Ordering Facility: [facility] Address: [address] [place], [place] [address] Performed By: #### 3 3959-8, 04965-4, 59044-7 #### [facility] CLIA [id number] [address] [place] [address] [place] Calcium [Mass/Vol] 9.1 mg/dL Normal 8.5-10.2 [facility] Comment on above: Order Comment: Speci men Type: BLOOD SPECIMEN Ordering Facility: [facility] Address: [address] [place] [address] Performed By: #### 3 3959-8, 07822-1, 50707-5 #### [facility] CLIA [id number] [address] [place] [address] [place] Chloride [Moles/Vol] 106 mmol/L High 97-105 [facility] Comment on above: Order Comment: Speci men Type: BLOOD SPECIMEN Ordering Facility: [facility] Address: [address] [place] [address] Performed By: #### 3 3959-8, 01687-8, 98543-4 #### [facility] CLIA [id number] [address] [place] [address] [place] CO2 [Moles/Vol] 32 mmol/L High 22-30 [facility] Comment on above: Order Comment: Speci men Type: BLOOD SPECIMEN Ordering Facility: [facility] Address: [address] [place] [address] Performed By: #### 3 3959-8, 53510-3, 86490-0 #### [facility] CLIA [id number] [address] [place] [address] [place] Creatinine [Mass/Vol] 0.55 mg/dL Low 0.73-1.22 [facility] Comment on above: Order Comment: Speci men Type: BLOOD SPECIMEN Ordering Facility: [facility] Address: [address] [place] [address] Performed By: #### 3 3959-8, 03524-1, 00568-4 #### [facility] CLIA [id number] [address] [place] [address] [place] Creatinine and Glomerular filtration rate.predicted panel (S/P/Bld) 129 mL/min/1.73m??? Normal >=60 [facility] Comment on above: Order Comment: Speci men Type: BLOOD SPECIMEN Ordering Facility: [facility] Address: [address] [place] [address] Result Comment: Rae mated Glomerular Filtration Rate [...] accurately reflect actual GFR. Performed By: #### 3 3959-8, 14079-2, 63678-8 #### [facility] CLIA [id number] [address] [place] [address] [place] Glucose [Mass/Vol] 98 mg/dL Normal 74-99 [facility] Comment on above: Order Comment: Speci men Type: BLOOD SPECIMEN Ordering Facility: [facility] Address: [address] [place] [id number] Result Comment: The [place] [employer] (ADA) provides guidance for cutoff values for fasting glucose and random glucose. The ADA defines fasting as no caloric intake for at least 8 hours. Fasting plasma glucose results between 100 to 125 mg/dL indicate increased risk for diabetes (prediabetes). Fasting plasma glucose results greater than or equal to 126 mg/dL meet the criteria for diagnosis of diabetes. In the absence of unequivocal hyperglycemia, results should be confirmed by repeat testing. In a patient with classic symptoms of hyperglycemia or hyperglycemic crisis, random plasma glucose results greater than or equal to 200 mg/dL meet the criteria for diagnosis of diabetes. Reference: Standards of Medical Care in Diabetes 2016, [place] [employer] Association. Diabetes Care. 2016.39(Suppl 1). Performed By: #### 3 3959-8, 07187-6, 69166-0 #### [facility] CLIA [id number] [address] [place] [address] [place] Potassium [Moles/Vol] 3.6 mmol/L Low 3.7-5.1 [facility] Comment on above: Order Comment: Speci men Type: BLOOD SPECIMEN Ordering Facility: [facility] Address: [address] [place] [address] Performed By: #### 3 3959-8, 55152-5, 19112-9 #### [facility] CLIA [id number] [address] [place] [address] [place] Sodium [Moles/Vol] 147 mmol/L High 136-144 [facility] Comment on above: Order Comment: Speci men Type: BLOOD SPECIMEN Ordering Facility: [facility] Address: [address] [place] [address] Performed By: #### 3 3959-8, 45306-9, 61015-7 #### [facility] CLIA [id number] [address] [place] [address] [facility] Urea nitrogen [Mass/Vol] 16 mg/dL Normal 9-24 [facility] Comment on above: Order Comment: Speci men Type: BLOOD SPECIMEN Ordering Facility: [facility] Address: [address] [place] [address] Performed By: #### 3 3959-8, 58927-8, 40487-7 #### [facility] CLIA [id number] [address] [place] [address] [facility] CASE MANAGEMon 11-22-2023 CASE MANAGEM HNO ID: [id number] Author: MONTSE FONG RN Service: ? 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 Ischemic Stroke (Hcc) Pressure Injury of Deep Tissue of Left Ankle Tracheostomy Tube Present (Hcc) Difficulty Liberating From Mechanical Ventilation (Hcc) Abnormal Ekg Acute On Chronic Respiratory Failure With Hypoxemia (Hcc) Malnutrition of Moderate Degree (Hcc) Abnormal CT of The Abdomen Urinary Tract Infection Due to Esbl Klebsiella History of Esbl Klebsiella Pneumoniae Infection Vap (Ventilator-Associated Pneumonia) ([facility]) Chronic Indwelling Iverson Catheter Calculus of Gallbladder With Acute Cholecystitis Without Obstruction Sepsis (Hcc) Left Hip Pain Hip Joint Effusion, Left History of Tracheostomy Infective Myositis of Left Lower Extremity History of Dvt (Deep Vein Thrombosis) Itzel (Acute Kidney Injury) ([facility]) Tachycardia Coffee Ground Emesis Incontinence of Feces Attendees Present at Rounds: Supervisor Special Effects: Patient: Lolis Quinones III Pharmacy: Provider: Respiratory Therapy: Staff Nurse: Needs Discussed on Rounds: Discharge Needs Equipment: Respiratory Equipment Oxygen and vent / trach Mobility Psycho/Social Plan of Care Anticipated Discharge Disposition: Half-Way Facility - return Last Vitals: BP 103/59 Pulse 112 Temp (Src) 100 (Axillary) Resp 21 Ht 5' 4 (1.63m) Wt 167 lb 1.7 oz (75.8kg) SpO2 97% BMI 28.67 kg/(m2). O2 Therapy: Ventilator, %FIO2: 45 Nursing: Risk for Infection Intervention(s) Plan: Assess and Administer Medications;Assess Signs/Symptom of Infection;Assess Vital Signs;Dressing Changes per Protocol;Monitor Labs and Cultures;Provide Urinary Catheter Care;Notify LIP for Changes to Baseline Status Risk for Infection Goals/Outcomes: Patient Without Signs/Symptoms of Infections Risk For Infection Goal Target Achievement Date: 11/24/23 Respiratory Alteration Goals/Outcomes: Decrease of Respiratory Distress;Patient Demonstrates Adequate Ventilation Respiratory Goal Target Achievement Date: 11/24/23 DOCUMENTED BY: Montse Fong RN PATIENT NAME: Lolis Quinones III DATE: November 22, 2023 TIME: 10:44 AM CSN: [id number] [facility] CASE MGT [facility] [id number] Author: MONTSE FONG RN Service: ? Author Type: Registered Nurse Type: Care Mgt Initial Assessment Filed: 11/22/2023 15:36 Note Text: CARE MANAGEMENT: ASSESSMENT AND DISCHARGE PLAN SERVICE DATE: November 22, 2023 SERVICE TIME: 3:28 pm PCP: No primary care provider on file. Primary Contact: Extended Emergency Contact Information Primary Emergency Contact: Lolis Quinones (guardian) Mobile Relation: Father Secondary Emergency Contact: Clara Quinones Address: [address] [place] [address] Relation: Mother Admission Status: Inpatient - came from [facility] for fever AND increased SOB HX: CVA 06-09-23, locked in syndrome Insurance Provider: [employer] PPO Discharge Planning requested by: Per Department Practice Potential Transition Plans Other: See Comment (return to SNF) Advance Directives Current Advance Directive: Other Document: See Comment (Legal guardianship) In Chart: Yes Up To Date and Valid: Yes Current Living Arrangements and Support Lives with: Alone Type of Residence: Half-Way Facility Does the patient have to climb stairs at home?: No Support: Family members How do you manage to accomplish the following: Dependent: Transportation to appointments/community ;Bathe/Shower;Dress;Me als/Meal Prep;Going to the bathroom;Medication Management Current Services/Equipment Current Post-Acute Service(s): DME Current DME Type: Oxygen (other equipment per facility) Discharge Planning Patient Goal(s): (unable to answer) Logan of Choice Explained: Logan of Choice Given: Yes Level of Care Discussed: Half-Way Facility Are you interested in bedside delivery of your medications? Yes Discharge Planning Participant(s): Family Patient/Family Comments: Caregiver Assessment: Caregiver is ready, willing and able to meet the patient's needs as recommended by the inter-professional team: Yes Name of Caregiver: per facility Transport at Discharge: Needs Prior to Discharge: Needs Prior to Discharge: To Be Determined Post-Acute Discharge Plan: Did assessment with patient's father / legal guardian , he is very supportive. Wants patient [facility] where he [facility] prior to admission, referral made and they accepted. Patient is O2 dependent - has trach / vent. Infectious disease on consult. Wound care on consult for sacral decub. Has chronic iverson, trach and PEG. CM Department will continue to follow. SIGNATURE: Montse Fong RN PATIENT NAME: Lolis Quinones III DATE: November 22, 2023 TIME: 3:28 PM CONTACT #: [phone] Normal [facility] CBC panel Auto (Bld)on 11-21 Erythrocyte distribution width (RBC) [Ratio] 17.2 % High 11.5-15.0 [facility] Comment on above: Order Comment: Speci men Type: BLOOD SPECIMENOrdering Facility: [facility] Address: [address] [place] [address] Performed By: #### 5 8410-2 ####[facility]ORYCLIA [id number] [facility] [address] [place] Hematocrit (Bld) [Volume fraction] 22.9 % Low 39.0-51.0 [facility] Comment on above: Order Comment: Speci men Type: BLOOD SPECIMENOrdering Facility: [facility] Address: [address] [place] [address] Performed By: #### 5 8410-2 ####[facility]ORY[facility] [id number] [place] [address] [place] Hemoglobin (Bld) [Mass/Vol] 6.8 g/dL Low 13.0-17.0 [facility] Comment on above: Order Comment: Speci men Type: BLOOD SPECIMENOrdering Facility: [facility] Address: [address] [place] [address] Performed By: #### 5 8410-2 ####[facility] [id number] [place] [address] [place] MCH (RBC) [Entitic mass] 24.8 pg Low 26.0-34.0 [facility] Comment on above: Order Comment: Speci men Type: BLOOD SPECIMENOrdering Facility: [facility] Address: [address] [place] [address] Performed By: #### 5 8410-2 ####[facility] [id number] [place] [address] [place] MCHC (RBC) [Mass/Vol] 29.7 g/dL Low 30.5-36.0 [facility] Comment on above: Order Comment: Speci men Type: BLOOD SPECIMENOrdering Facility: [facility] Address: [address] [place] [address] Performed By: #### 5 8410-2 ####[facility]ATORYIA [id number] [place] [address] [place] MCV (RBC) [Entitic vol] 83.6 fL Normal 80.0-100.0 [facility] Comment on above: Order Comment: Speci men Type: BLOOD SPECIMENOrdering Facility: [facility] Address: [address] [place] [address] Performed By: #### 5 8410-2 ####[facility] [id number] [place] [address] [place] Nucleated RBC (Bld) [#/Vol] 10*3/uL Normal <0.01 [facility] Comment on above: Order Comment: Speci men Type: BLOOD SPECIMENOrdering Facility: [facility] Address: [address] [place] [address] Performed By: #### 5 8410-2 ####[facility]ATORYIA [id number] [place] [address] [place] Platelet mean volume (Bld) [Entitic vol] 11.1 fL Normal 9.0-12.7 [facility] Comment on above: Order Comment: Speci men Type: BLOOD SPECIMENOrdering Facility: [facility] Address: [address] [place] [address] Performed By: #### 5 8410-2 ####[facility] [id number] [place] [address] [place] Platelets (Bld) [#/Vol] 319 10*3/uL Normal 150-400 [facility] Comment on above: Order Comment: Speci men Type: BLOOD SPECIMENOrdering Facility: [facility] Address: [address] [place] [address] Performed By: #### 5 8410-2 ####[facility] [id number] [facility] [place] [address] [place] RBC (Bld) [#/Vol] 2.74 10*6/uL Low 4.20-6.00 [facility] Comment on above: Order Comment: Speci men Type: BLOOD SPECIMENOrdering Facility: [facility] Address: [address] [place] [address] Performed By: #### 5 8410-2 ####[facility]ATORYIA [id number] [facility] [place] [address] [place] WBC (Bld) [#/Vol] 11.27 10*3/uL High 3.70-11.00 [facility] Comment on above: Order Comment: Speci men Type: BLOOD SPECIMENOrdering Facility: [facility] Address: [address] [place] [address] Performed By: #### 5 8410-2 ####[facility] [id number] [place] [address] [place] Erythrocyte distribution width (RBC) [Ratio] 17.2 % High 11.5-15.0 [facility] Comment on above: Order Comment: Speci men Type: BLOOD SPECIMENOrdering Facility: [facility] Address: [address] [place] [address] Performed By: #### 5 8410-2 ####[facility] [id number] [address] [place] Hematocrit (Bld) [Volume fraction] 25.5 % Low 39.0-51.0 [facility] Comment on above: Order Comment: Speci men Type: BLOOD SPECIMENOrdering Facility: [facility] Address: [address] [place] [address] Performed By: #### 5 8410-2 ####[facility] [id number] [place] [address] [place] Hemoglobin (Bld) [Mass/Vol] 7.2 g/dL Low 13.0-17.0 [facility] Comment on above: Order Comment: Speci men Type: BLOOD SPECIMENOrdering Facility: [facility] Address: [address] [place] [address] Performed By: #### 5 8410-2 ####[facility] [id number] [place] [address] [place] MCH (RBC) [Entitic mass] 24.5 pg Low 26.0-34.0 [facility] Comment on above: Order Comment: Speci men Type: BLOOD SPECIMENOrdering Facility: [facility] Address: [address] [place] [address] Performed By: #### 5 8410-2 ####[facility] [id number] [place] [address] [place] MCHC (RBC) [Mass/Vol] 28.2 g/dL Low 30.5-36.0 [facility] Comment on above: Order Comment: Speci men Type: BLOOD SPECIMENOrdering Facility: [facility] Address: [address] [place] [address] Performed By: #### 5 8410-2 ####[facility]ATORYIA [id number] [place] [address] [place] MCV (RBC) [Entitic vol] 86.7 fL Normal 80.0-100.0 [facility] Comment on above: Order Comment: Speci men Type: BLOOD SPECIMENOrdering Facility: [facility] Address: [address] [place] [address] Performed By: #### 5 8410-2 ####[facility] [id number] [place] [address] [place] Nucleated RBC (Bld) [#/Vol] 10*3/uL Normal <0.01 [facility] Comment on above: Order Comment: Speci men Type: BLOOD SPECIMENOrdering Facility: [facility] Address: [address] [place] [address] Performed By: #### 5 8410-2 ####[facility] [id number] [place] [address] [place] Platelet mean volume (Bld) [Entitic vol] 11.4 fL Normal 9.0-12.7 [facility] Comment on above: Order Comment: Speci men Type: BLOOD SPECIMENOrdering Facility: [facility] Address: [address] [place] [address] Performed By: #### 5 8410-2 ####[facility] [id number] [place] [address] [place] Platelets (Bld) [#/Vol] 350 10*3/uL Normal 150-400 [facility] Comment on above: Order Comment: Speci men Type: BLOOD SPECIMENOrdering Facility: [facility] Address: [address] [place] [address] Performed By: #### 5 8410-2 ####[facility]ORATORYIA [id number] [place] [id number] [place] RBC (Bld) [#/Vol] 2.94 10*6/uL Low 4.20-6.00 [facility] Comment on above: Order Comment: Speci men Type: BLOOD SPECIMENOrdering Facility: [facility] Address: [address] [place] [address] Performed By: #### 5 8410-2 ####[facility] [id number] [place] [address] [place] WBC (Bld) [#/Vol] 11.54 10*3/uL High 3.70-11.00 [facility] Comment on above: Order Comment: Speci men Type: BLOOD SPECIMENOrdering Facility: [facility] Address: [address] [place] [address] Performed By: #### 5 8410-2 ####[facility] [id number] [place] [address] [place] Erythrocyte distribution width (RBC) [Ratio] 17.1 % High 11.5-15.0 [facility] Comment on above: Order Comment: Speci men Type: BLOOD SPECIMENOrdering Facility: [facility] Address: [address] [place] [address] Performed By: #### 5 8410-2 ####[facility] [id number] [place] [id number] [place] Hematocrit (Bld) [Volume fraction] 28.0 % Low 39.0-51.0 [facility] Comment on above: Order Comment: Speci men Type: BLOOD SPECIMENOrdering Facility: [facility] Address: [address] [place] [address] Performed By: #### 5 8410-2 ####[facility]ATORYIA [id number] [place] [id number] [place] Hemoglobin (Bld) [Mass/Vol] 7.9 g/dL Low 13.0-17.0 [facility] Comment on above: Order Comment: Speci men Type: BLOOD SPECIMENOrdering Facility: [facility] Address: [address] [place] [address] Performed By: #### 5 8410-2 ####[facility] [id number] [address] [place] MCH (RBC) [Entitic mass] 24.5 pg Low 26.0-34.0 [facility] Comment on above: Order Comment: Speci men Type: BLOOD SPECIMENOrdering Facility: [facility] Address: [address] [place] [address] Performed By: #### 5 8410-2 ####[facility] [id number] [address] [place] MCHC (RBC) [Mass/Vol] 28.2 g/dL Low 30.5-36.0 [facility] Comment on above: Order Comment: Speci men Type: BLOOD SPECIMENOrdering Facility: [facility] Address: [address] [place] [address] Performed By: #### 5 8410-2 ####[facility] [id number] [address] [place] MCV (RBC) [Entitic vol] 87.0 fL Normal 80.0-100.0 [facility] Comment on above: Order Comment: Speci men Type: BLOOD SPECIMENOrdering Facility: [facility] Address: [address] [place] [address] Performed By: #### 5 8410-2 ####[facility] [id number] [address] [place] Nucleated RBC (Bld) [#/Vol] 10*3/uL Normal <0.01 [facility] Comment on above: Order Comment: Speci men Type: BLOOD SPECIMENOrdering Facility: [facility] Address: [address] [place] [address] Performed By: #### 5 8410-2 ####[facility] [id number] [facility] [address] [place] Platelet mean volume (Bld) [Entitic vol] 11.4 fL Normal 9.0-12.7 [facility] Comment on above: Order Comment: Speci men Type: BLOOD SPECIMENOrdering Facility: [facility] Address: [address] [place] [address] Performed By: #### 5 8410-2 ####[facility] [id number] [place] [address] [facility] Platelets (Bld) [#/Vol] 354 10*3/uL Normal 150-400 [facility] Comment on above: Order Comment: Speci men Type: BLOOD SPECIMENOrdering Facility: [facility] Address: [address] [place] [address] Performed By: #### 5 8410-2 ####[facility] [id number] [place] [address] [place] RBC (Bld) [#/Vol] 3.22 10*6/uL Low 4.20-6.00 [facility] Comment on above: Order Comment: Speci men Type: BLOOD SPECIMENOrdering Facility: [facility] Address: [address] [place] [address] Performed By: #### 5 8410-2 ####[facility] [id number] [facility] [place] [address] [place] WBC (Bld) [#/Vol] 14.07 10*3/uL High 3.70-11.00 [facility] Comment on above: Order Comment: Speci men Type: BLOOD SPECIMENOrdering Facility: [facility] Address: [address] [place] [address] Performed By: #### 5 8410-2 ####[facility] [id number] [place] [address] [facility] CONSULTon 11-22-2023 CONSULT HNO ID: [id number] Author: TONIA TARANGO APRN.FUNERAL DRIVER Service: Gastroenterology Author Type: Nurse Practitioner Type: Consults Filed: 11/22/2023 13:56 Note Text: CONSULT: GI SERVICE SERVICE DATE: 11/22/2023 SERVICE TIME: 12:40 PM REASON FOR CONSULT: coffee ground emesis, anemia, +FOB, on eliquis REQUESTING PHYSICIAN: Dr. Schrader PRIMARY CARE PHYSICIAN: No primary care provider on file. Subjective Mr. 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 According to ED provider, he was never hypotensive and did not have a lactate. Fever was 102+ and he was tachycardic into the 140s. He remained on his baseline vent settings with VT 400, RR 14, 45% and PEEP 5 without issue. Vitals included HR 145, RR 19, BP 108/62 and SPO2 96 on 45% FIO2. He received 2L IVF and was started on broad spectrum antibiotics. ED report noted WBC 21,700, Hgb 10.3, Hct 35.5, Na 143, K 4.1, BUN 26, CR 0.87, Lactate 1.8. CXR: underexpanded lungs with mild bibasilar infiltrates versus atelectasis right greater than left. CT ABD/P Negative for acute process, CT Brain negative for acute process. GI c/s requested after patient had coffee ground contents surrounding trach and also similar appearing contents coming from PEG tube via suction. Pt mother and father providing history since patient unable. State this is not the first time he had an issue with GIB, happened a few months back and they were able to get approx 500 ml out via PEG/suction canister as NGT could not be placed and treated the patient with supportive care. Explains son's jaw in locked position and only opens few centimeters so endoscopy is not an option. Per RN-pt had normal, brown stool today. He is on Eliquis BID-last dose last night. Recently, he was treated for acute cholecystitis and had a percutaneous kwasi tube placed at [facility] which was removed 10/10/2022. ED provider initially requested patient to transfer to MICU at [facility] per family request but due to bed availability, patient is to be admitted to ICU at [facility] for Sepsis and Chronic Respiratory Failure requiring continuous ventilator support. 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 Apply to gauze; change daily as needed for wound care for sacrum, Disp: , Rfl: , Unknown baclofen 5 mg tablet, 5 mg by G-TUBE route three times a day., Disp: , Rfl: , Unknown carboxymethylcellulose sodium (ARTIFICIAL TEARS) 1 % drops, Use 1 Drop in both eyes three times a day., Disp: , Rfl: , Unknown metoprolol tartrate, short acting, (LOPRESSOR) 25 mg tablet, 25 mg by G-TUBE route two times a day. Hold for SBP less than 100, hold for HR less than 60, Disp: , Rfl: , Unknown oxyCODONE IR (ROXICODONE) 10 mg tab, 10 mg by G-TUBE route every 6 hours., Disp: , Rfl: , Unknown ALPRAZolam (XANAX) 1 mg tablet, 1 mg by G-TUBE route three times a day as needed for anxiety., Disp: , Rfl: , Unknown acetaminophen (TYLENOL) 325 mg tablet, 2 tablets by ORAL/FEEDING TUBE route every 4 hours as needed for fever (specify temp.)., Disp: , Rfl: , Unknown albuterol (PROVENTIL) 2.5 mg /3 mL (0.083 %) nebulizer solution, Use 3 mL via nebulizer every 4 hours as needed for wheezing/shortness of breath., Disp: , Rfl: , Unknown apixaban (ELIQUIS) 5 mg tab(s), Take 1 tablet by mouth two times a day. (Patient taking differently: 5 mg by G-TUBE route two times a day.), Disp: , Rfl: , Unknown cetirizine (ZYRTEC) 10 mg tablet, Take 1 tablet by mouth once daily. (Patient taking differently: 10 mg by G-TUBE route once daily.), Disp: , Rfl: , Unknown escitalopram oxalate (LEXAPRO) 10 mg tablet, 1 tablet by ORAL/FEEDING TUBE route once daily., Disp: (more content not included)... 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 Patient was reportedly febrile to 102 and tachycardic in the 140s in the ED but was maintained on his baseline 4 to 5% FiO2 and 5 of PEEP. Patient reported to have white count of 21.7 at [facility] with a lactate of 1.8. Per MICU HANDP he had a CT abdomen/pelvis and CT brain at [facility] that was negative. Family had requested the patient be transferred to [facility] MICU but due to bed availability the patient was transferred to [facility] ICU for further management. On discussion with the patient's mother and father at bedside they note that there was concern he he was throwing up prior to admission. Mother notes that the nursing facility stated that he had dark fluids coming out of his nose and trachea. She also noted that he had been vomiting in the ED on arrival. Discussed with nursing who noted fluids with consistency of his PEG tube around the trachea on admission. There was also concern for coffee-ground emesis. On admission here the patient was febrile to 38.5 with leukocytosis. Blood pressure was soft and the patient was tachycardic to 124. He remained on his baseline vent settings of 45% FiO2. Labs revealed a white count of 21.88, neutrophil count 19.91, creatinine 0.59, Pro-Khurram 0.86, BNP was 236, hemoglobin 9.5 decreased to 7.2 today. Blood cultures are pending. Staph aureus nasal PCR was negative. Respiratory cultures so far with mixed oral sumanth. Strep pneumo/Legionella urine antigen is pending. COVID-19, influenza, RSV testing was negative. Chest x-ray with stable bibasilar infiltrates. GI was consulted for concern of possible upper GI bleed but patient is not a candidate for endoscopy due to immobility of his jaw. Allergies: ALLERGIES Allergen Reactions Fentanyl Shortness of Breath Current Antibiotics: Antibiotic / Dose / Interval Dates 1) IV vancomycin per pharmacy dosing 11/21- 2) IV meropenem 1 g every 8 11/20- 3) 4) 5) Current Medications: Current Facility-Administered Medications Medication Dose Route Frequency vancomycin iv piggyback 1 g in D5W 200 mL (VANCOCIN) 1 g INTRAVENOUS q 12 HR potassium phosphate 15 mmol in NaCl 0.9% 250 mL 15 mmol INTRAVENOUS ONCE dextrose 15 gram/32 mL 15 g (TRUEPLUS) 15 g ORAL PRN Or glucagon 1 mg injection 1 mg INTRAMUSCULAR PRN Or dextrose 10% iv bolus 12.5 g INTRAVENOUS PRN NaCl 0.9% iv flush bag 20 mL INTRAVENOUS PRN lactated ringers iv infusion 75 mL/hr INTRAVENOUS CONTINUOUS Chlorhexidine Gluconate 0.12 % 15 mL (PERIDEX) 15 mL ORAL QID pantoprazole 40 mg oral liquid (PROTONIX) 40 mg ORAL/FEEDING TUBE DAILY (6 AM) ondansetron 4 mg tab(s) (ZOFRAN) 4 mg ORAL q 6 H PRN Or ondansetron (PF) 4 mg injection (ZOFRAN) 4 mg INTRAVENOUS q 6 H PRN bisacodyl 10 mg suppository (DULCOLAX) 10 mg RECTAL DAILY PRN vancomycin dosing and monitoring per pharmacy OTHER As Directed insulin lispro injection (rapid acting) (ADMElog) SUBCUTANEOUS q 6 H meropenem 1 g in NaCl 0.9% 100 mL Vial-Bag (MERREM) 1 g INTRAVENOUS q 8 H docusate 100 mg oral liquid (COLACE) 100 mg ORAL/FEEDING TUBE BID PRN gabapentin 300 mg oral liquid (NEURONTIN) 300 mg ORAL/FEEDING TUBE TID cetirizine 10 mg tab(s) (ZYRTEC) 10 mg ORAL/FEEDING TUBE DAILY albuterol 2.5 mg /3 mL (0.083 %) 2.5 mg (PROVENTIL) 2.5 mg INHALATION BID albuterol 2.5 mg /3 mL (0.083 %) 2.5 mg (PROVENTIL) 2.5 mg INHALATION q 4 H PRN apixaban 5 mg tab(s) (ELIQUIS) 5 mg ORAL/FEEDING TUBE BID white petrolatum-mineral oil 1 Drop ophthalmic ointment (Soothe Lubricant Eye Night Time Ointment) 1 Drop BOTH EYES PRN sodium chloride 7% solution 4 mL INHALATION ONLY 4 mL INHALATION BID melatonin 3 mg tab(s) 3 mg ORAL/FEEDING TUBE AT BEDTIME PRN escitalopram oxalate 10 mg tab(s) (LEXAPRO) 10 mg ORAL/FEEDING TUBE DAILY baclofen 5 mg tab(s) 5 mg ORAL/FEEDING TUBE TID acetaminophen 650 mg CUP (TYLENOL) 650 mg ORAL/FEEDING TUBE q 4 H PRN oxyCODONE 10 mg oral liquid (ROXICODONE) 10 mg ORAL/FE (more content not included)... [facility] CONSULT PROGon 11-22-2023 CONSULT PROG HNO ID: [id number] Author: ADOLFO CORMIER RPh Service: Pharmacy Author Type: Pharmacist Type: Consult Progress Note Filed: 11/22/2023 12:23 Note Text: PHARMACY VANCOMYCIN DOSING NOTE Patient Name: Lolis Quinones III Admission Date: 11/21/2023 Date of Consult: 11/22/2023 Time of Consult: 12:23 PM Indication: Source unknown; empiric Goal Range: 15-20 mcg/mL RECOMMENDATIONS/PLAN: Vancomycin therapy has been discontinued. Vancomycin level(s) have been discontinued: Not Applicable. Pharmacy vancomycin dosing service will sign off. Thank you for allowing us to participate in this patient's care. Please contact pharmacy if there are questions. Adolfo Cormier [facility] CONSULT PROG HNO ID: [id number] Author: DEONNA ANAND APRN.FUNERAL DRIVER Service: Wound/Ostomy Author Type: Nurse Practitioner Type: Consult Progress Note Filed: 11/22/2023 13:16 Note Text: WOUND/OSTOMY SERVICE PROGRESS NOTE SERVICE DATE: 11/22/2023 SERVICE TIME: 11:37 AM Subjective CHIEF COMPLAINT: See Initial Consult Note Patient is being seen by wound care service for: Wound care. INTERVAL HISTORY OF PRESENT ILLNESS: Patient's family at bedside this morning. Mom is a nurse and provides wound history. Mom reports sacral wound started as stage 2 May of 2023 and progressively worsened. Sacral debridement at [facility] in October. Mother reports imaging done at [facility] showed fluid collection in piliformis muscle. Patient discharged to [facility]. Follows with wound nurse and DIRT SUPERVISOR. Patient has current orders from facility for wound vac placement but they waiting for pump to be delivered. Wound information: Location: Sacrum Onset: May 2023 Aggravating factors: Debility, immobility, malnutrition, Wound etiology: Pressure Associated pain with wound: No , patient uses his eye to communicate that he is does not have wound pain Treatments: Dakin's moist cause and orders wound vac to be placed Current Facility-Administered Medications Medication Dose Route Frequency vancomycin iv piggyback 1 g in D5W 200 mL (VANCOCIN) 1 g INTRAVENOUS q 12 HR lidocaine (PF) 10 mg/mL (1 %) 10-20 mg injection (XYLOCAINE) 1-2 mL INTRADERMAL ONCE enteric contrast (radiology procedure) ORAL DIRECTED PRN oxyCODONE 10 mg oral liquid (ROXICODONE) 10 mg ORAL/FEEDING TUBE q 6 H dextrose 15 gram/32 mL 15 g (TRUEPLUS) 15 g ORAL PRN Or glucagon 1 mg injection 1 mg INTRAMUSCULAR PRN Or dextrose 10% iv bolus 12.5 g INTRAVENOUS PRN NaCl 0.9% iv flush bag 20 mL INTRAVENOUS PRN lactated ringers iv infusion 75 mL/hr INTRAVENOUS CONTINUOUS Chlorhexidine Gluconate 0.12 % 15 mL (PERIDEX) 15 mL ORAL QID pantoprazole 40 mg oral liquid (PROTONIX) 40 mg ORAL/FEEDING TUBE DAILY (6 AM) ondansetron 4 mg tab(s) (ZOFRAN) 4 mg ORAL q 6 H PRN Or ondansetron (PF) 4 mg injection (ZOFRAN) 4 mg INTRAVENOUS q 6 H PRN bisacodyl 10 mg suppository (DULCOLAX) 10 mg RECTAL DAILY PRN vancomycin dosing and monitoring per pharmacy OTHER As Directed insulin lispro injection (rapid acting) (ADMElog) SUBCUTANEOUS q 6 H meropenem 1 g in NaCl 0.9% 100 mL Vial-Bag (MERREM) 1 g INTRAVENOUS q 8 H docusate 100 mg oral liquid (COLACE) 100 mg ORAL/FEEDING TUBE BID PRN gabapentin 300 mg oral liquid (NEURONTIN) 300 mg ORAL/FEEDING TUBE TID cetirizine 10 mg tab(s) (ZYRTEC) 10 mg ORAL/FEEDING TUBE DAILY albuterol 2.5 mg /3 mL (0.083 %) 2.5 mg (PROVENTIL) 2.5 mg INHALATION BID albuterol 2.5 mg /3 mL (0.083 %) 2.5 mg (PROVENTIL) 2.5 mg INHALATION q 4 H PRN white petrolatum-mineral oil 1 Drop ophthalmic ointment (Soothe Lubricant Eye Night Time Ointment) 1 Drop BOTH EYES PRN sodium chloride 7% solution 4 mL INHALATION ONLY 4 mL INHALATION BID melatonin 3 mg tab(s) 3 mg ORAL/FEEDING TUBE AT BEDTIME PRN escitalopram oxalate 10 mg tab(s) (LEXAPRO) 10 mg ORAL/FEEDING TUBE DAILY baclofen 5 mg tab(s) 5 mg ORAL/FEEDING TUBE TID acetaminophen 650 mg CUP (TYLENOL) 650 mg ORAL/FEEDING TUBE q 4 H PRN metoprolol tartrate (short acting) 25 mg tab(s) (LOPRESSOR) 25 mg ORAL/FEEDING TUBE q 12 H sodium hypochlorite 0.125 % (DAKIN'S QUARTER STRENGTH) TOPICAL BID Objective PHYSICAL EXAM: BP 91/54 Pulse 104 Temp (Src) 100 (Axillary) Resp 20 Ht 5' 4 (1.63m) Wt 167 lb 1.7 oz (75.8kg) SpO2 98% BMI 28.67 kg/(m2). O2 Therapy: Ventilator, %FIO2: 45 General: No Distress, tached and ventilated Musculoskeletal: Full assist with turn Skin: Skin warm and dry Wound: NEGATIVE PRESSURE DRESSING APPLICATION: The sacral wound was cleaned and measured. Measurements: 5 x 4 x 2.2 Tissue in wound bed: Red and scant yellow. No odor. Julissa-wound intact. No surrounding erythema The wound was packed with black foam. Total pieces in the wound: 2 pieces and 1 piece for bridge Suction pad was placed and dressing compressed and seal was achieved. Previous dressings used: Dakin's moist gauze Procedure was explained to guardian and patient and there was a verbal agreement to having the dressing placed. Settings: 125 mm HG DATA: Diagnostic tests reviewed for today's visit: Wound photo Most recent labs CBC with diff: WBC 14.07 11/22/2023 RBC 3.22 11/22/2023 Hemoglobin 7.9 11/22/2023 Hematocrit 28.0 11/22/2023 MCV 87.0 11/22/2023 MCH 24.5 11/22/2023 MCHC 28.2 11/22/2023 RDW-CV 17.1 11/22/2023 Platelet Count 354 11/22/2023 MPV 11.4 11/22/2023 Neutrophils % 91.0 11/21/2023 Lymphocytes % 6.0 11/21/2023 Monocytes % 3.0 11/21/2023 Eosinophils % 0.8 10/21/2023 Basophils % 0.0 11/21/2023 Abs Neut 19.91 11/21/2023 Abs [place] 0.66 11/21/2023 Abs Eosin 0.00 11/21/2023 Abs Baso 0.00 11/21/2023 Glucose (mg/dL) Date Value 11/22/2023 98 01/16/2005 (more content not included)... [facility] CONSULT PROG HNO ID: [id number] Author: CAT MARTIN RPh Service: Pharmacy Author Type: Pharmacist Type: Consult Progress Note Filed: 11/22/2023 05:29 Note Text: PHARMACY VANCOMYCIN DOSING NOTE Patient Name: Lolis Quinones III Admission Date: 11/21/2023 Date of Consult: 11/22/2023 Time of Consult: 5:27 AM Indication: Source unknown; empiric Goal Range: 15-20 mcg/mL RECOMMENDATIONS/PLAN: Pharmacy consulted for vancomycin dosing for Lolis Quinones III, a 38 year old male. 1. Patient is currently ordered Vancomycin dosed by level. Today is day 2 of therapy. 2. The most recent vancomycin level was <4.0 mcg/mL drawn at 0431 on 11/22/23. This is a ~19 hour level on the 2nd day of therapy. 3. Vancomycin level is below therapeutic goal. Will start vancomycin 1 g IV q12h based on improved renal function. 4. The next vancomycin level will be ordered for 11/25/23 unless clinically indicated sooner. (Pharmacy will order) We will follow patient renal function, vancomycin levels and doses with you during the course of therapy. Additional recommendations will appear in follow up notes. If you have any questions, please contact Pharmacy at [phone]. Age: [age] year old Allergies: ALLERGIES Allergen Reactions Fentanyl Shortness of Breath Last 3 Encounter Wt Readings: Date: Wt: 11/21/2023 73.2 kg (161 lb 6 oz) 10/09/2023 80.3 kg (177 lb 0.5 oz) 01/16/2005 85.7 kg (189 lb) Last 1 Encounter Ht Readings: Date: Ht: 11/21/2023 162.6 cm (5' 4 ) CrCl: 165.3 mL/min Temp (24hrs), Av.3 ?C (99.1 ?F), Min:36.6 ?C (97.9 ?F), Max:38.5 ?C (101.3 ?F) - Current Temp: 37.2 ?C (99 ?F) Labs BUN (mg/dL) Date Value 11/22/2023 16 11/21/2023 22 10/22/2023 12 Creatinine (mg/dL) Date Value 11/22/2023 0.55 (L) 11/21/2023 0.59 (L) 10/22/2023 0.46 (L) WBC (k/uL) Date Value 11/22/2023 14.07 (H) 11/21/2023 21.88 (H) 10/22/2023 13.67 (H) Vancomycin Levels: Vancomycin (ug/mL) Date/Time Value 11/22/2023 0431 <4.0 (L) [facility] CT ABD/PEL WO IVCONon 2023 CT ABD/PEL WO IVCON * * *Final Report* * * DATE OF EXAM: Nov 22 2023 10:59AM [facility] 0531 - CT ABD/PEL WO IVCON / PROCEDURE REASON: Sepsis * * * * Physician Interpretation * * * * EXAMINATION: CT CHEST WO IVCON, CT ABD/PEL WO IVCON CLINICAL HISTORY: Aspiration (accession [id number]), Sepsis (accession [id number]) TECHNIQUE: CT of the chest from the thoracic inlet to the upper abdomen was performed without intravenous contrast. CT of the abdomen and pelvis was performed using standard technique, scanning from just above the dome of the diaphragm to the symphysis pubis. Contrast: None CT Radiation dose: Integrated Dose-length product (DLP) for this visit = 1419 mGy*cm. CT Dose Reduction Employed: Automated exposure control(AEC) and iterative recon COMPARISON: Chest radiograph dated 11/22/2023. CT abdomen/pelvis dated 10/11/2023. FINDINGS: Limitations: - Lack of intravenous contrast limits evaluation of the vascular structures, the solid organs, and for certain processes/fluid collections - Lack of oral contrast limits evaluation of the gastrointestinal tract - Beam hardening artifact due to patient's arms within the scanning field - Patient generated motion artifact. CHEST: Lines, tubes, and devices: Tracheostomy cannula present within the trachea, with the tip terminating 5.6 cm superior to the yazan. Lung parenchyma, pleura, and airways: Consolidation and alveolar opacities throughout the right lower lobe, as well as alveolar opacities within the posterior aspects of the right middle and right upper lobes. Small left pleural effusion with overlying consolidation throughout the majority of the left lower lobe. Stable ill-defined high density structures in the left infrahilar region and posteroinferior left lower lobe, possibly representing calcified granulomas. No obvious discrete masses. Mucus plugging with intermittent obstruction in the subsegmental airways of the bilateral lower lobes. Lower neck, lymph nodes, and mediastinum: The imaged thyroid gland is normal. Mildly enlarged right supraclavicular lymph node measuring up to 1.2 cm in the short axis (series 602 image 113). Prominent, although not enlarged mediastinal and hilar lymph nodes. These may be reactive in nature. Heart, pericardium, and thoracic vessels: The heart is mildly enlarged. There are coronary artery calcifications which appear mild, although the study is not optimized for coronary assessment. There is trace pericardial effusion. The thoracic aorta appears normal in caliber. Incidental note is made of a normal variant shared origin of the brachiocephalic and left common carotid arteries. Thoracic Bones/Soft Tissues: No acute findings. Partial visualization of anterior-approach cervical spinal fusion hardware. ABDOMEN AND PELVIS: Liver: No mass. Biliary: No bile duct dilation. Spleen: No mass. Upper normal size, measuring up to 13.2 cm in the craniocaudal dimension. Pancreas: No mass or duct dilation. Adrenals: No mass. Kidneys: No significant change compared to the prior exam. Punctate nonobstructing right upper pole nephrolith. Wedge-shaped hyperdense region in the left upper pole. No hydroureteronephrosis. A Iverson catheter is in place, with subsequent decompression of the urinary bladder. There is increased density along the left aspect of the bladder lumen/Iverson balloon, which may reflect residual excreted contrast material. GI tract: There is a PEG tube present, with the balloon in the gastric body. There are no dilated loops of bowel to suggest obstruction. Possible colonic wall thickening at the rectum (series 3 image 116 and series 604 image 69). No evidence of acute appendicitis. Lymph nodes: No abdominal or pelvic lymphadenopathy. Mesentery/Peritoneum: No ascites or free intraperitoneal air. Retroperitoneum: No mass. Vasculature: No abdominal aortic aneurysm. Limited evaluation as above. Pelvis: No distinct mass. Abdominal Bones/Soft Tissues: Redemonstration of a sacral decubitus ulcer with associated subcutaneous emphysema and edema. No underlying osseous erosions to suggest acute osteomyelitis. Mild prominence of the left piriformis musculature, slightly improved compared to the prior exam. No obvious fluid collections, although exam is limited as above. Mild improvement in diffuse body wall edema. No acute osseous findings. Stable levoconvex curvature of the lumbar spine with left lateral listhesis of L2 over L3. [employer] (topogram) images: No additional findings. IMPRESSION: 1. Consolidation and airways disease throughout the right lower lobe and in the posterior aspects of the remaining right lung. Left lower lung consolidation with a small left pleural effusion. Bilateral subsegmental airway mucus plugging. Findings are concerning for pneumonia or other pneumonitis such as aspiration. 2. Redemonstration of a sacral dec (more content not included)... Normal [facility] CT CHEST WO IVCONon 11-22-[address] CHEST WO IVCON * * *Final Report* * * DATE OF EXAM: Nov 22 2023 10:59AM [facility] 0541 - CT CHEST WO IVCON / PROCEDURE REASON: Aspiration * * * * Physician Interpretation * * * * EXAMINATION: CT CHEST WO IVCON, CT ABD/PEL WO IVCON CLINICAL HISTORY: Aspiration (accession [id number]), Sepsis (accession [id number]) TECHNIQUE: CT of the chest from the thoracic inlet to the upper abdomen was performed without intravenous contrast. CT of the abdomen and pelvis was performed using standard technique, scanning from just above the dome of the diaphragm to the symphysis pubis. Contrast: None CT Radiation dose: Integrated Dose-length product (DLP) for this visit = 1419 mGy*cm. CT Dose Reduction Employed: Automated exposure control(AEC) and iterative recon COMPARISON: Chest radiograph dated 11/22/2023. CT abdomen/pelvis dated 10/11/2023. FINDINGS: Limitations: - Lack of intravenous contrast limits evaluation of the vascular structures, the solid organs, and for certain processes/fluid collections - Lack of oral contrast limits evaluation of the gastrointestinal tract - Beam hardening artifact due to patient's arms within the scanning field - Patient generated motion artifact. CHEST: Lines, tubes, and devices: Tracheostomy cannula present within the trachea, with the tip terminating 5.6 cm superior to the yazan. Lung parenchyma, pleura, and airways: Consolidation and alveolar opacities throughout the right lower lobe, as well as alveolar opacities within the posterior aspects of the right middle and right upper lobes. Small left pleural effusion with overlying consolidation throughout the majority of the left lower lobe. Stable ill-defined high density structures in the left infrahilar region and posteroinferior left lower lobe, possibly representing calcified granulomas. No obvious discrete masses. Mucus plugging with intermittent obstruction in the subsegmental airways of the bilateral lower lobes. Lower neck, lymph nodes, and mediastinum: The imaged thyroid gland is normal. Mildly enlarged right supraclavicular lymph node measuring up to 1.2 cm in the short axis (series 602 image 113). Prominent, although not enlarged mediastinal and hilar lymph nodes. These may be reactive in nature. Heart, pericardium, and thoracic vessels: The heart is mildly enlarged. There are coronary artery calcifications which appear mild, although the study is not optimized for coronary assessment. There is trace pericardial effusion. The thoracic aorta appears normal in caliber. Incidental note is made of a normal variant shared origin of the brachiocephalic and left common carotid arteries. Thoracic Bones/Soft Tissues: No acute findings. Partial visualization of anterior-approach cervical spinal fusion hardware. ABDOMEN AND PELVIS: Liver: No mass. Biliary: No bile duct dilation. Spleen: No mass. Upper normal size, measuring up to 13.2 cm in the craniocaudal dimension. Pancreas: No mass or duct dilation. Adrenals: No mass. Kidneys: No significant change compared to the prior exam. Punctate nonobstructing right upper pole nephrolith. Wedge-shaped hyperdense region in the left upper pole. No hydroureteronephrosis. A Iverson catheter is in place, with subsequent decompression of the urinary bladder. There is increased density along the left aspect of the bladder lumen/Iverson balloon, which may reflect residual excreted contrast material. GI tract: There is a PEG tube present, with the balloon in the gastric body. There are no dilated loops of bowel to suggest obstruction. Possible colonic wall thickening at the rectum (series 3 image 116 and series 604 image 69). No evidence of acute appendicitis. Lymph nodes: No abdominal or pelvic lymphadenopathy. Mesentery/Peritoneum: No ascites or free intraperitoneal air. Retroperitoneum: No mass. Vasculature: No abdominal aortic aneurysm. Limited evaluation as above. Pelvis: No distinct mass. Abdominal Bones/Soft Tissues: Redemonstration of a sacral decubitus ulcer with associated subcutaneous emphysema and edema. No underlying osseous erosions to suggest acute osteomyelitis. Mild prominence of the left piriformis musculature, slightly improved compared to the prior exam. No obvious fluid collections, although exam is limited as above. Mild improvement in diffuse body wall edema. No acute osseous findings. Stable levoconvex curvature of the lumbar spine with left lateral listhesis of L2 over L3. [employer] (topogram) images: No additional findings. IMPRESSION: 1. Consolidation and airways disease throughout the right lower lobe and in the posterior aspects of the remaining right lung. Left lower lung consolidation with a small left pleural effusion. Bilateral subsegmental airway mucus plugging. Findings are concerning for pneumonia or other pneumonitis such as aspiration. 2. Redemonstration of a sacral d (more content not included)... Normal [facility] Gas and Carbon monoxide pane l (BldV)on 11-22-2023 Base excess Calc (BldV) [Moles/Vol] 10 mmol/L High 0-2 [facility] Comment on above: Order Comment: Darwin schwarz Type: BLOOD SPECIMEN Ordering Facility: [facility] Address: [address] [place] [address] Performed By: #### 3 3959-8, 70206-6, 63870-9 #### [facility] CLIA [id number] [address] [place] [address] [place] Body temperature 98.96 [degF] Normal [facility] Comment on above: Order Comment: Gabrielai karishma Type: BLOOD SPECIMEN Ordering Facility: [facility] Address: [address] [place] [address] Performed By: #### 3 3959-8, 06372-9, 25239-0 #### [facility] CLIA [id number] [address] [place], [place] [id number] [place] [address] [place] Calcium.ionized (Bld) [Mass/Vol] 1.22 mmol/L Normal 1.08-1.30 [facility] Comment on above: Order Comment: Gabrielai karishma Type: BLOOD SPECIMEN Ordering Facility: [facility] Address: [address] [place] [address] Performed By: #### 3 3959-8, 33614-6, 80925-3 #### [facility] CLIA [id number] [address] [place], [place] [id number] [place] [address] [place] Calcium.ionized adjusted to pH 7.4 (BldA) [Moles/Vol] 1.25 mmol/L Normal 1.08-1.30 [facility] Comment on above: Order Comment: Speci men Type: BLOOD SPECIMEN Ordering Facility: [facility] Address: [address] [place] [address] Performed By: #### 3 3959-8, 05994-3, 43387-7 #### [facility] CLIA [id number] [address] [place] [address] [place] Carboxyhemoglobin (BldV) [Mass fraction] 2.8 % High 0.0-2.0 [facility] Comment on above: Order Comment: Speci men Type: BLOOD SPECIMEN Ordering Facility: [facility] Address: [address] [place] [address] Result Comment: Carb oxyhemoglobin Reference Range for Smokers: 2.0-8.0% Performed By: #### 3 3959-8, 92291-0, 74790-4 #### [facility] CLIA [id number] [address] [place] [address] [place] CO2 (BldV) [Partial pressure] 51 mm[Hg] Normal 42-55 [facility] Comment on above: Order Comment: Speci men Type: BLOOD SPECIMEN Ordering Facility: [facility] Address: [address] [place] [address] Performed By: #### 3 3959-8, 69903-8, 39359-6 #### [facility] CLIA [id number] [address] [place] [address] [place] CO2 adjusted to patient's actual temperature (BldV) [Partial pressure] 52 mmHg Normal 42-55 [facility] Comment on above: Order Comment: Speci men Type: BLOOD SPECIMEN Ordering Facility: [facility] Address: [address] [place] [address] Performed By: #### 3 3959-8, 58650-8, 53120-4 #### [facility] CLIA [id number] [address] [place] [address] [place] Glucose [Mass/Vol] 97 mg/dL Normal 60-105 [facility] Comment on above: Order Comment: Speci men Type: BLOOD SPECIMEN Ordering Facility: [facility] Address: [address] [place] [address] Performed By: #### 3 3959-8, 53925-2, 01568-2 #### [facility] CLIA [id number] [address] [place] [address] [place] HCO3 (Bld) [Moles/Vol] 35 mmol/L High 24-28 [facility] Comment on above: Order Comment: Speci men Type: BLOOD SPECIMEN Ordering Facility: [facility] Address: [address] [place] [address] Performed By: #### 3 3959-8, 63410-1, 31525-9 #### [facility] CLIA [id number] [address] [place] [address] [place] Hematocrit (Bld) [Volume fraction] 25.8 % Low 39.0-51.0 [facility] Comment on above: Order Comment: Speci men Type: BLOOD SPECIMEN Ordering Facility: [facility] Address: [address] [place] [address] Performed By: #### 3 3959-8, 46165-6, 62584-4 #### [facility] CLIA [id number] [address] [place] [address] [place] Hemoglobin (Bld) [Mass/Vol] 8.4 g/dL Low 13.0-17.0 [facility] Comment on above: Order Comment: Speci men Type: BLOOD SPECIMEN Ordering Facility: [facility] Address: [address] [place], [place] [address] [address] Performed By: #### 3 3959-8, 84953-1, 90955-7 #### [facility] CLIA [id number] [address] [place] [address] [place] Lactate [Moles/Vol] 1.2 mmol/L Normal 0.5-2.2 [facility] Comment on above: Order Comment: Speci men Type: BLOOD SPECIMEN Ordering Facility: [facility] Address: [address] [place] [address] Performed By: #### 3 3959-8, 34741-2, 56927-4 #### [facility] CLIA [id number] [address] [place] [address] [place] Methemoglobin (Bld) [Mass fraction] % Normal 0.0-1.5 [facility] Comment on above: Order Comment: Speci men Type: BLOOD SPECIMEN Ordering Facility: [facility] Address: [address] [place] [address] Performed By: #### 3 3959-8, 17271-6, 06838-9 #### [facility] CLIA [id number] [address] [place] [address] [place] O2 THERAPY Hi-Flow Trach Adapter-Heated Normal [facility] Comment on above: Order Comment: Speci men Type: BLOOD SPECIMEN Ordering Facility: [facility] Address: [address] [place] [address] Performed By: #### 3 3959-8, 43734-5, 07514-6 #### [facility] CLIA [id number] [address] [place] [address] [place] Oxygen (BldV) [Partial pressure] 67 mm[Hg] High 35-45 [facility] Comment on above: Order Comment: Speci men Type: BLOOD SPECIMEN Ordering Facility: [facility] Address: [address] [place] [address] Performed By: #### 3 3959-8, 95491-9, 63063-1 #### [facility] CLIA [id number] [address] [place] [address] [place] Oxygen adjusted to patient's actual temperature (BldV) [Partial pressure] 68 mmHg High 35-45 [facility] Comment on above: Order Comment: Speci men Type: BLOOD SPECIMEN Ordering Facility: [facility] Address: [address] [place] [address] Performed By: #### 3 3959-8, 57997-6, 43064-2 #### [facility] CLIA [id number] [address] [place] [address] [place] Oxygen saturation in Venous blood 94 % High 60-85 [facility] Comment on above: Order Comment: Speci men Type: BLOOD SPECIMEN Ordering Facility: [facility] Address: [address] [place] [address] Performed By: #### 3 3959-8, 44586-4, 70619-0 #### [facility] CLIA [id number] [address] [place] [address] [place] Oxyhemoglobin (BldV) [Mass fraction] 92 % High 60-85 [facility] Comment on above: Order Comment: Speci men Type: BLOOD SPECIMEN Ordering Facility: [facility] Address: [address] [place] [address] Performed By: #### 3 3959-8, 32952-0, 59902-3 #### [facility] CLIA [id number] [address] [place] [address] [place] pH (BldV) 7.44 [pH] High 7.32-7.42 [facility] Comment on above: Order Comment: Speci men Type: BLOOD SPECIMEN Ordering Facility: [facility] Address: [address] [place] [address] Result Comment: Veno us specimen received in vacutainer. Suitable only for assessment of acid base status. Performed By: #### 3 3959-8, 11865-7, 65529-5 #### [facility] CLIA [id number] [address] [place] [address] [place] pH adjusted to patient's actual temperature (BldV) 7.44 High 7.32-7.42 [facility] Comment on above: Order Comment: Speci men Type: BLOOD SPECIMEN Ordering Facility: [facility] Address: [address] [place] [address] Performed By: #### 3 3959-8, 64669-1, 32688-0 #### [facility] CLIA [id number] [address] [place] [address] [place] Potassium [Moles/Vol] 3.5 mmol/L Normal 3.5-5.0 [facility] Comment on above: Order Comment: Speci men Type: BLOOD SPECIMEN Ordering Facility: [facility] Address: [address] [place] [address] Performed By: #### 3 3959-8, 75469-4, 39812-2 #### [facility] CLIA [id number] [address] [place] [address] [place] Sodium [Moles/Vol] 149 mmol/L High 136-144 [facility] Comment on above: Order Comment: Speci men Type: BLOOD SPECIMEN Ordering Facility: [facility] Address: [address] [place] [address] Performed By: #### 3 3959-8, 41590-8, 66204-9 #### [facility] CLIA [id number] [address] [place] [address] [place] Legionella Ag Ur Qlon 2023 Legionella sp Ag Ql (U) Negative Normal Negative [facility] Comment on above: Order Comment: Speci [facility] Type: URINE SPECIMENOrdering Facility: [facility] Address: [address] [place] [address] Result Comment: Legi onella urinary antigen test is used as an aid in diagnosis of infection with Legionella pneumophila serogroup 1. It may be detected from a few days to several months after onset of signs and symptoms despite antibiotic therapy or disease resolution. A negative result cannot exclude Legionellosis. Clinical correlation is required. Performed By: #### 3 2781-7 ####[facility]IA [id number] [facility] [id number] [address] [place] Lipid 1996 panelon 4 Cholesterol [Mass/Vol] 91 mg/dL Normal <200 [facility] Comment on above: Order Comment: Speci men Type: BLOOD SPECIMEN Ordering Facility: [facility] Address: [address] [place] [address] Result Comment: <200 mg/dL, Desirable 200-239 mg/dL, Borderline high >239 mg/dL, High Performed By: #### 3 3959-8, 42691-4, 33390-9 #### [facility] CLIA [id number] [address] [place] [address] [place] Cholesterol in HDL [Mass/Vol] 24 mg/dL Low >39 [facility] Comment on above: Order Comment: Darwin karishma Type: BLOOD SPECIMEN Ordering Facility: [facility] Address: [address] [place] [address] Result Comment: 40-5 9 mg/dL, Acceptable >59 mg/dL, High: Negative risk factor for coronary heart disease <40 mg/dL, Low: Positive risk factor for coronary heart disease Performed By: #### 3 3959-8, 89083-5, 06093-8 #### [facility] CLIA [id number] [address] [facility] [place] [address] [facility] Cholesterol in LDL [Mass/Vol] 47 mg/dL Normal <100 [facility] Comment on above: Order Comment: Darwin schwarz Type: BLOOD SPECIMEN Ordering Facility: [facility] Address: [address] [place] [address] Result Comment: <100 mg/dL, Optimal 100-129 mg/dL, Near optimal/above optimal 130-159 mg/dL, Borderline high 160-189 mg/dL, High >189 mg/dL, Very high Secondary prevention optimal LDL Cholesterol levels are recommended to be < 70 mg/dL Performed By: #### 3 3959-8, 16972-7, 23661-2 #### [facility] CLIA [id number] [address] [facility] [place] [address] [facility] Cholesterol in LDL/Cholesterol in HDL [Mass ratio] 1.96 {ratio} Normal <2.54 [facility] Comment on above: Order Comment: Darwin karishma Type: BLOOD SPECIMEN Ordering Facility: [facility] Address: [address] [place] [address] Result Comment: Refe rence: 1. National Cholesterol Education Program ATP III Guideline At-A-Glance Quick Desk Reference: National Heart, Lung, and Blood [place]. National Institutes of Health. 2001: NIH Publication No. 01-3305. 2. An International Atherosclerosis Society position paper: global recommendations for the management of dyslipidemia: executive summary, Atherosclerosis. 2014: 232(2):410-413. Performed By: #### 3 3959-8, 76441-9, 48121-8 #### [facility] CLIA [id number] [address] [place] [address] [place] Cholesterol in VLDL [Mass/Vol] 20 mg/dL Normal <30 [facility] Comment on above: Order Comment: Speci men Type: BLOOD SPECIMEN Ordering Facility: [facility] Address: [address] [place] [address] Performed By: #### 3 3959-8, 07876-4, 83919-1 #### [facility] CLIA [id number] [address] [place] [address] [place] Cholesterol non HDL [Mass/Vol] 67 mg/dL Normal <130 [facility] Comment on above: Order Comment: Speci men Type: BLOOD SPECIMEN Ordering Facility: [facility] Address: [address] [place] [address] Result Comment: <130 mg/dL, Optimal 130-159 mg/dL, Near optimal/above optimal 160-189 mg/dL, Borderline high 190-219 mg/dL, High >219 mg/dL, Very high Secondary prevention optimal non HDL Cholesterol levels are recommended to be <100 mg/dL Performed By: #### 3 3959-8, 45053-2, 71321-2 #### [facility] CLIA [id number] [address] [place] [address] [place] Cholesterol.total/Cho lesterol in HDL [Mass ratio] 3.79 {ratio} Normal <5.10 [facility] Comment on above: Order Comment: Speci men Type: BLOOD SPECIMEN Ordering Facility: [facility] Address: [address] [place] [address] Performed By: #### 3 3959-8, 91147-2, 02940-4 #### [facility] CLIA [id number] [address] [place] [address] [place] FASTING TIME 10 hrs Normal [facility] Comment on above: Order Comment: Speci men Type: BLOOD SPECIMEN Ordering Facility: [facility] Address: [address] [place] [address] Performed By: #### 3 3959-8, 30942-0, 91000-5 #### [facility] CLIA [id number] [address] [place], [place] [address] [place] [address] [place] [facility] Triglyceride [Mass/Vol] 98 mg/dL Normal <150 [facility] Comment on above: Order Comment: Speci men Type: BLOOD SPECIMEN Ordering Facility: [facility] Address: [address] [place] [address] Result Comment: <150 mg/dL, Normal 150-199 mg/dL, Borderline high 200-499 mg/dL, High >499 mg/dL, Very high Performed By: #### 3 3959-8, 05138-8, 25992-9 #### [facility] CLIA [id number] [address] [place], [place] [address] [place] [address] MYCOPLASMA PNEUM PCRon 11-21 MYCOPLASMA PNEUM PCR SPECIMEN SOURCE (MYCPCR): Tracheal Aspirate MYCOPLASMA PNEUM DNA: Not Detected NOT DETECTED - A negative result does not rule out the presence of PCR inhibitors in the patient specimen or assay specific nucleic acid in concentrations below the level of detection by the assay. INTERPRETIVE INFORMATION: Mycoplasma pneumoniae by PCR This test was developed and its performance characteristics determined by [facility]. It has not been cleared or approved by the [place] Food and Drug Administration. This test was performed in a CLIA certified laboratory and is intended for clinical purposes. Performed By: [facility] [address] [place] [address] [employer]: Kenny Francis MD, PhD CLIA Number: [id number] [facility] Comment on above: Performed By: #### M YCPCR ####[facility] [id number] [place] [address] Magnesium SerPl-mCncon 11-21 Magnesium [Mass/Vol] 2.0 mg/dL Normal 1.7-2.3 [facility] Comment on above: Order Comment: Speci men Type: BLOOD SPECIMEN Ordering Facility: [facility] Address: [address] [place] [address] Performed By: #### 3 3959-8, 17410-1, 28902-9 #### [facility] CLIA [id number] [address] [place] [address] [facility] NURSING PROGon 11-22-2023 NURSING PROG HNO ID: [id number] Author: JASON RODGERS RN Service: PICC Team Author Type: Registered Nurse Type: Nursing Progress Note Filed: 11/22/2023 13:44 Note Text: PICC/VASCULAR ACCESS PROGRESS NOTE SERVICE DATE: 11/22/2023 SERVICE TIME: 0911 Patient ordered PICC line with blood cultures drawn yesterday. Ordering provider aware that blood cultures will need to be negative for 48 hours prior to placing central line. Patient has working IV at this time. SIGNATURE: Jason Rodgers RN PATIENT NAME: Lolis Quinones III DATE: November 22, 2023 TIME: 9:12 AM PAGER/CONTACT #: [phone] [facility] NUTRITIONon 11-22-2023 NUTRITION HNO ID: [id number] Author: PATY XIONG RD Service: Nutrition Therapy Author Type: Registered Dietitian Type: Nutrition Filed: 11/22/2023 12:10 Note Text: NUTRITION THERAPY INITIAL ASSESSMENT SERVICE DATE: 11/22/2023 SERVICE TIME: 1125 Nutrition Assessment: Recommended Malnutrition Diagnosis: Moderate Protein-Calorie Malnutrition In the context of: Acute Illness or Injury Based on: Muscle Loss, Unintentional Weight Loss Nutrition Diagnosis: Problem: Suboptimal oral intake Related to: Acute illness As evidenced by: Depletion of fat/muscle stores, Wound(s), Medical condition, Imaging studies, Weight loss (coffee grd emesis; possible GIB) Estimated kilocalorie needs: 2101-0798 Calorie Calculation Method: (23-28 kcals/kg) Estimated protein needs (grams): 88-117 (146gm; 2gm/kg) Grams protein determined by: 1.2 - 1.6 g/kg Care Plan: Enteral Nutrition Tube Feeding Formula Type: Osmolite 1.2 (TF on HOLD for possible GIB.) Goal Rate (mL/hr x hours): 65mL x 24hrs:1560mL, 1872kcals, 87gm and 1279mL free water Water Flush Volume (mL x frequency: 125mL x 6/day (every 4hrs or per ICU MD) Modular: ProSouce NoCarb Neutral (TID for 45 extra grams of protein (total 132gm; 1.8gm/73.2kg)) Recommended Enteral Access: PEG (TF on Hold for now) Parenteral Nutrition Recommended Parenteral Access: (P-IV) Parenteral Needs: Start Indications: GI Bleed PN Type: PPN Volume (mL): 2000 Infusion Hours: 24 Electrolytes: Increase, Decrease Decrease Lytes: No sodium in PPN solution Increase Lytes: KPO4, Ca++, Mag and a little KCl PN Additives: Zinc Lipids: SMOFlipid Dextrose: Increase Protein: Increase Monitor and Evaluation: Monitor fluid/electrolyte balance, Monitor labs, I/Os, vital signs, weight, Monitor bowel function Discharge Recommendations: Enteral Tube Feeding Enteral/Tube Feedings: Likely will return to TFing: Osmolite 1.2 @ 65mL x 24 hrs with 125mL water flush x6/day with Protein Modular TID (prosource NoCarb Neutral) I have confirmed and edited as necessary the HPI obtained by Prashant Leyva CNP on 11/20 and all reflects current status. 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 Recently, he was treated for acute cholecystitis and had a percutaneous kwasi tube placed at [facility] which was removed 10/10/2022. ED provider initially requested patient to transfer to MICU at [facility] per family request but due to bed availability, patient is to be admitted to ICU at [facility] for Sepsis and Chronic Respiratory Failure requiring continuous ventilator support. Intake History: Nutrition Intake Prior to Admission: Greater than 75% estimated energy needs greater than or equal to 1 month (Osmolite 1.2 @65mL/hr) Current Nutrition Intake: NPO Current Intake Over time: (New admit <1 day) Mother very helpful and father too. Diet Orders (From admission, onward) Start Ordered 11/21/23 1500 DIET NPO START NOW 11/21/23 1508 Anthropometrics: Height: 162.6 cm (5' 4 ) Weight: 75.8 kg (167 lb 1.7 oz) Dosing Weight: 73.2 kg (161 lb 6 oz) (BMI: 27.7) Usual Weight: 87.3 kg (192 lb 8 oz) Per mother and father pt use to range between 190-195# prior to Jun 08, 2023 Usual Weight Obtained From: Family/Caregiver Body mass index is 28.68 kg/m?. Weight change percentage over time: -18.6% x 5-6 mths (06/10/23: 90kg) Weight Change: Clinically signficant weight loss Physical Exam: Subcutaneous fat loss: No fat loss Muscle loss: Mild (Mother states pt's legs are thinner and his belly is a little smaller) Potential micronutrient deficiency: Skin Edema/Ascites: Generalized GI Symptoms: None (Pt can answer Yes and No questions with his eyes: No abd pain or nausea) Stool Amount: WNL Stool Consistency: Semi-formed (+BM today) Functional Status: Not related to malnutrition status Potential Signs of Inflammation: Hypoalbuminemia, Tachycardia, Microbiologic cultures, Leukocytosis, Imaging studies (+Tracheal aspirate cx; UCx in process) MNT Billing: $ Initial Assessment: 1-15 minutes SIGNATURE: Paty Xiong RD PATIENT NAME: Lolis Quinones III DATE: November 22, 2023 TIME: 12:07 PM [facility] Phosphate SerPl-mCncon 11-21 Phosphate [Mass/Vol] 2.6 mg/dL Low 2.7-4.8 [facility] Comment on above: Order Comment: Speci men Type: BLOOD SPECIMEN [facility]ing Facility: [facility] Address: [address] [place] [address] Performed By: #### 3 3959-8, 68620-8, 45339-6 #### [facility] CLIA [id number] [facility] [place] [address] [place] STREPTOCOCCUS PNEUMONIAE AGo n 11-22-2023 STREPTOCOCCUS PNEUMONIAE AG STREP PNEUMO AG RESULT: Negative for Streptococcus pneumoniae antigen. Presumptive negative for pneumococcal pneumonia, suggesting no current or recent pneumococcal infection. Infection due to S.pneumoniae cannot be ruled out since the antigen present in the sample may be below the detection limit of the test. Normal [facility] Comment on above: Performed By: #### S PNAG ####[facility] LABCLIA [id number] [facility]STERPooja [place], [place] [address] [place] TYPE + SCREENon 11-22-2023 ABO A Normal [facility] Comment on above: Order Comment: Speci men Type: BLOOD SPECIMENOrdering Facility: [facility] Address: [address] [place] [address] Performed By: #### T SCR ####[facility] BANKCLIA [id number] [place] [id number] [facility] [place] HISTORICAL AB SCR STATUS Negative [facility] Comment on above: Order Comment: Speci men Type: BLOOD SPECIMENOrdering Facility: [facility] Address: [address] [place] [address] Performed By: #### T SCR ####[facility]LO[facility] BANKCLIA [id number] [place] [id number] [place] Rh Nom (Bld) Positive Normal [facility] l Comment on above: Order Comment: Speci men Type: BLOOD SPECIMENOrdering Facility: [facility] Address: [address] [place] [address] Performed By: #### T SCR ####[facility]LOOD BANKCLIA [id number] [place] [id number] [place] TYPE AND SCREEN EXPIRATION 11/25/2023 23:59 [facility] Comment on above: Order Comment: Speci men Type: BLOOD SPECIMENOrdering Facility: [facility] Address: [address] [place] [address] Performed By: #### T SCR ####[facility] BLOOD BANKCLIA [id number] [place] [address] [place] US ARM VEIN DVT [facility]o n 11-22-2023 ARM VEIN DVT [facility] Non-Invasive Vascular Laboratory [facility] Upper Extremity Venous Duplex Bilateral/Complete Date of service/time: 11/22/2023 10:01:48 AM Name: MR. LOLIS QUINONES III Date: 1985 Age: 38 years Gender: M Clinical Indication Upper extremity swelling. TECHNIQUE -------- A venous duplex ultrasound examination was performed, including grayscale imaging with compression maneuvers and color Doppler and spectral Doppler examination with augmentation maneuvers and response to respiration of the below mentioned veins. FINDINGS -------- RIGHT SIDE Internal jugular vein Doppler: normal flow. Compression: normal. Subclavian vein Doppler: normal flow. Compression: normal. Axillary vein Doppler: normal flow. Compression: normal. Brachial vein Doppler: normal flow. Compression: normal. Basilic vein Compression: normal. Cephalic vein Compression: normal. LEFT SIDE Subclavian vein Doppler: normal flow. Compression: normal. Axillary vein Doppler: normal flow. Compression: normal. Brachial vein Doppler: normal flow. Compression: normal. Basilic vein Compression: normal. Cephalic vein Compression: normal. IMPRESSION Technically difficult exam due to patient positioning. RIGHT SIDE - DEEP VEINS Negative for acute deep vein thrombosis. LEFT SIDE - DEEP VEINS Negative for acute deep vein thrombosis. Unable to visualize the internal jugular vein. Technologist: Wilder Stubbs [facility] Ordering physician: NIMA SCHRADER Referring physician: NIMA SCHRADER MD Interpreting physician: Richie Martinez MD Final CC [facility] : [id number] csSISUID See Link below for Image Normal [facility] US LEG VEIN DVT [facility] LABo n 11-22-2023 LEG VEIN DVT [facility] Non-Invasive Vascular Laboratory [facility] Lower Extremity Venous Duplex Bilateral/Complete Date of service/time: 11/22/2023 9:46:01 AM Name: MR. LOLIS QUINONES III Date of : 1985 Age: 38 years Gender: M Clinical Indication Lower extremity swelling. TECHNIQUE -------- A venous duplex ultrasound examination was performed, including grayscale imaging with compression maneuvers and color Doppler and spectral Doppler examination with augmentation maneuvers and response to respiration of the below mentioned veins. FINDINGS -------- RIGHT SIDE Distal external iliac vein Doppler: normal flow. Compression: normal. Common femoral vein Doppler: normal flow. Compression: normal. Femoral vein Doppler: normal flow. Compression: normal. Popliteal vein Doppler: normal flow. Compression: normal. Posterior tibial veins Compression: normal. Great saphenous vein Compression: normal. Small saphenous vein Compression: normal. LEFT SIDE Distal external iliac vein Doppler: normal flow. Compression: normal. Common femoral vein Doppler: normal flow. Compression: normal. Femoral vein Doppler: normal flow. Compression: normal. Popliteal vein Doppler: normal flow. Compression: normal. Posterior tibial veins Compression: normal. Great saphenous vein Compression: normal. Small saphenous vein Compression: normal. IMPRESSION Technically difficult exam due to patient positioning. RIGHT SIDE - DEEP VEINS Negative for acute deep vein thrombosis. Unable to visualize the peroneal veins. LEFT SIDE - DEEP VEINS Negative for acute deep vein thrombosis. Unable to visualize the peroneal veins. Technologist: Wilder Stubbs [place] Ordering physician: NIMA SCHRADER Referring physician: NIMA SCHRADER MD Interpreting physician: Richie Martinez MD Final CC [facility] : [id number] sSISUID See Link below for Image Normal [facility] Vancomycin Cache SerPl-mCncon 11-22-2023 Vancomycin random [Mass/Vol] <4.0 Low 10.0-20.0 [facility] Comment on above: Order Comment: Speci men Type: BLOOD SPECIMENOrdering Facility: [facility] Address: [address] [place] [address] Result Comment: Refe rence ranges and high/low indicator flags are provided as general guidelines only. The treating physician must determine appropriate target levels/dosing based on the specific clinical situation. Performed By: #### 4 091-5 ####[facility] LABORATORYCLIA [id number] [facility] [place] [address] [place] XR CHEST 1V FRONTAL PORTon 0 11-22-2023 XR CHEST 1V FRONTAL PORT * * *Final Report* * * DATE OF EXAM: Nov 22 2023 6:29AM VHX [id number] - XR CHEST 1V FRONTAL PORT / PROCEDURE REASON: Shortness of breath * * * * Physician Interpretation * * * * EXAMINATION: CHEST RADIOGRAPH (PORTABLE SINGLE VIEW AP) Exam Date/Time: 11/22/2023 6:29 AM CLINICAL HISTORY: Shortness of breath MQ: XCPR_5 Comparison: X-ray 11/21/2023 RESULT: Lines, tubes, and devices: Tracheostomy tube 6.9 cm above the yazan. Lungs and pleura: No pneumothorax. Consolidative opacities in the lung bases bilaterally, right greater than left. May be mildly worsened on the right compared to prior study. Cardiomediastinal silhouette: Cardiomegaly Other: . IMPRESSION: Consolidative opacities in the lung bases bilaterally, right greater than left. May be mild the worsened on the right when compared to prior study. Chemical Pathologist: PSCB Transcribe Date/Time: Nov 22 2023 11:50A Dictated by : TONA BECKFORD MD This examination was interpreted and the report reviewed and electronically signed by: TONA BECKFORD MD on Nov 22 2023 11:53AM EST [id number] Normal [facility] Bacteria Bld Culton 11-21-19 24 Bacteria identified Cx Nom (Bld) CULTURE, BLOOD: No growth 5 days Normal [facility] Comment on above: Performed By: #### 6 00-7 ####[facility] LABCLIA [id number] [place] [address] [place] Bacteria identified Cx Nom (Bld) CULTURE, BLOOD: No growth 5 days Normal [facility] Comment on above: Performed By: #### 6 00-7 ####[facility] LABCLIA [id number] [place] [address] [place] Bacteria Spec Resp Culton Bacteria identified Respiratory culture Nom (Unsp spec) ORGANISM ID: 1 Many Acinetobacter baumannii complex This is a corrected result. Previous organism was Acinetobacter baumannii on 11/26/2023 at 12:42 PM EDT. ORGANISM ID: 2 Moderate Klebsiella pneumoniae Extended-spectrum beta-lactamase (ESBL) production detected in this isolate. ESBL producing strains are considered resistant to all cephalosporins, penicillins, and aztreonam. GRAM STAIN: Few Mixed oral sumanth Rare Polymorphonuclear leukocytes ORGANISM ID: 1 (ACINETOBACTER BAUMANNII COMPLEX) -- ANTIBIOTIC INTERPRETATION JEFFREY STATUS REFERENCE RANGE -- Meropenem R >8 F Susceptible <=2 , Intermediate >2 , Resistant >4 Ampicillin/Sulbact R F Piperacillin/Tazobac R >128 F Susceptible <=16 , Intermediate >16 , Resistant >64 Gentamicin S <=2 F Susceptible <=4 , Intermediate >4 , Resistant >8 Tobramycin S <=2 F Susceptible <=4 , Intermediate >4 , Resistant >8 Trimeth sulfameth S <=1 F Susceptible <=2 , Resistant >2 Ciprofloxacin R >2 F Susceptible <=1 , Intermediate >1 , Resistant >2 Minocycline S <=1 F Susceptible <=4 , Intermediate >4 , Resistant >8 This is an addended report. These results have been addended to a previously final verified report. Colistin S 0.5 F Susceptible <=2 , Resistant >2 Polymyxin B S <=0.25 F ORGANISM ID: 2 (KLEBSIELLA PNEUMONIAE) -- ANTIBIOTIC INTERPRETATION JEFFREY STATUS REFERENCE RANGE -- Ampicillin R >=32 F Susceptible <=8 , Intermediate >8 , Resistant >16 Ceftriaxone R >=64 F Susceptible <=1 , Intermediate >1 , Resistant >=4 Cefepime R F Ertapenem S <=0.5 F Susceptible <=0.5 , Intermediate >.5 , Resistant >1 Meropenem S <=0.25 F Susceptible <=1 , Intermediate >1 , Resistant >2 Gentamicin S <=1 F Susceptible <=2 , Intermediate >2 , Resistant >=8 Tobramycin S <=1 F Susceptible <4 , Intermediate >=4 , Resistant >=8 Trimeth sulfameth R >=320 F Susceptible <=40 , Resistant >40 Ciprofloxacin I 0.5 F Susceptible <0.5 , Intermediate >=.5 , Resistant >=1 Abnormal [facility] Comment on above: Performed By: #### 3 2355-0 ####[facility] [id number] [place] [address] [place] Bacteria Ur Culton 4 Bacteria identified Cx Nom (U) ORGANISM ID: 1 >=100,000 CFU/ml Klebsiella pneumoniae Extended-spectrum beta-lactamase (ESBL) production detected in this isolate. ESBL producing strains are considered resistant to all cephalosporins, penicillins, and aztreonam. ORGANISM ID: 1 (KLEBSIELLA PNEUMONIAE) -- ANTIBIOTIC INTERPRETATION JEFFREY STATUS REFERENCE RANGE -- Ampicillin R >=32 F Susceptible <=8 , Intermediate >8 , Resistant >16 Cefazolin R >=64 F Susceptible 0-16 , Intermediate <0 or >16 , Resistant >16 For uncomplicated urinary tract infections, cefazolin results can be used to predict susceptibility or resistance to cephalexin. Ceftriaxone R >=64 F Susceptible <=1 , Intermediate >1 , Resistant >=4 Cefepime R F Ertapenem S <=0.5 F Susceptible <=0.5 , Intermediate >.5 , Resistant >1 Meropenem S <=0.25 F Susceptible <=1 , Intermediate >1 , Resistant >2 Gentamicin S <=1 F Susceptible <=4 , Intermediate >4 , Resistant >8 Tobramycin S <=1 F Susceptible <=4 , Intermediate >4 , Resistant >8 Trimeth sulfameth R >=320 F Susceptible <=40 , Resistant >40 Ciprofloxacin I 0.5 F Susceptible <0.5 , Intermediate >=.5 , Resistant >=1 Nitrofurantoin R 128 F Susceptible <=32 , Intermediate >32 , Resistant >64 Abnormal [facility] Comment on above: Performed By: #### 6 30-4 ####[facility] LABSATYAIA [id number] [place] [address] [place] CBC W Auto Differential pane l (Bld)on 11-21-2023 Anisocytosis Ql (Bld) Present Normal [facility] Comment on above: Order Comment: Speci men Type: BLOOD SPECIMENOrdering Facility: [facility] Address: [address] [place] [address] Performed By: #### 5 7021-8 ####[facility] LABORATORYCLIA [id number] [place] [address] [place] Basophils (Bld) [#/Vol] 0.00 10*3/uL Normal <0.11 [facility] Comment on above: Order Comment: Speci men Type: BLOOD SPECIMENOrdering Facility: [facility] Address: [address] [place] [address] Performed By: #### 5 7021-8 ####[facility] LABORATORYCLIA [id number] [place] [address] [place] Basophils/100 WBC (Bld) 0.0 % Normal [facility] Comment on above: Order Comment: Speci men Type: BLOOD SPECIMENOrdering Facility: [facility] Address: [address] [place] [address] Performed By: #### 5 7021-8 ####[facility]ITALIA [id number] [place] [id number] [place] Differential cell count method Nom (Bld) Manual Normal [facility] Comment on above: Order Comment: Speci men Type: BLOOD SPECIMENOrdering Facility: [facility] Address: [address] [place] [address] Performed By: #### 5 7021-8 ####[facility] LABORATORYIA [id number] [place] [address] [place] Eosinophils (Bld) [#/Vol] 0.00 10*3/uL Normal <0.46 [facility] Comment on above: Order Comment: Speci men Type: BLOOD SPECIMENOrdering Facility: [facility] Address: [address] [place] [address] Performed By: #### 5 7021-8 ####[facility] LABORATORYCLIA [id number] [facility] [place] [address] [place] Eosinophils/100 WBC (Bld) 0.0 % Normal [facility] Comment on above: Order Comment: Speci men Type: BLOOD SPECIMENOrdering Facility: [facility] Address: [address] [place] [address] Performed By: #### 5 7021-8 ####[facility]ITALIA [id number] [place] [address] [place] Erythrocyte distribution width (RBC) [Ratio] 17.2 % High 11.5-15.0 [facility] Comment on above: Order Comment: Speci men Type: BLOOD SPECIMENOrdering Facility: [facility] Address: [address] [place] [address] Performed By: #### 5 7021-8 ####[facility]OSPITALIA [id number] [place] [address] [place] Hematocrit (Bld) [Volume fraction] 33.1 % Low 39.0-51.0 [facility] Comment on above: Order Comment: Speci men Type: BLOOD SPECIMENOrdering Facility: [facility] Address: [address] [place] [address] Performed By: #### 5 7021-8 ####[facility] [id number] [place] [address] [place] Hemoglobin (Bld) [Mass/Vol] 9.5 g/dL Low 13.0-17.0 [facility] Comment on above: Order Comment: Speci men Type: BLOOD SPECIMENOrdering Facility: [facility] Address: [address] [place] [address] Performed By: #### 5 7021-8 ####[facility]ITALIA [id number] [place] [address] [place] Lymphocytes (Bld) [#/Vol] 1.31 10*3/uL Normal 1.00-4.00 [facility] Comment on above: Order Comment: Speci men Type: BLOOD SPECIMENOrdering Facility: [facility] Address: [address] [place] [address] Performed By: #### 5 7021-8 ####[facility] LABORATORYIA [id number] [facility] [address] [place] Lymphocytes/100 WBC (Bld) 6.0 % Normal [facility] Comment on above: Order Comment: Speci men Type: BLOOD SPECIMENOrdering Facility: [facility] Address: [address] [place] [address] Performed By: #### 5 7021-8 ####[facility] LABORATORYIA [id number] [address] [place] MCH (RBC) [Entitic mass] 24.8 pg Low 26.0-34.0 [facility] Comment on above: Order Comment: Speci men Type: BLOOD SPECIMENOrdering Facility: [facility] Address: [address] [place] [address] Performed By: #### 5 7021-8 ####[facility]ITALIA [id number] [address] [place] MCHC (RBC) [Mass/Vol] 28.7 g/dL Low 30.5-36.0 [facility] Comment on above: Order Comment: Speci men Type: BLOOD SPECIMENOrdering Facility: [facility] Address: [address] [place] [address] Performed By: #### 5 7021-8 ####[facility] [id number] [address] [place] MCV (RBC) [Entitic vol] 86.4 fL Normal 80.0-100.0 [facility] Comment on above: Order Comment: Speci men Type: BLOOD SPECIMENOrdering Facility: [facility] Address: [address] [place] [address] Performed By: #### 5 7021-8 ####[facility] LABORATORYIA [id number] [address] [place] Monocytes (Bld) [#/Vol] 0.66 10*3/uL Normal <0.87 [facility] Comment on above: Order Comment: Speci men Type: BLOOD SPECIMENOrdering Facility: [facility] Address: [address] [place] [address] Performed By: #### 5 7021-8 ####[facility] LABORATORYCLIA [id number] [place] [address] [place] Monocytes/100 WBC (Bld) 3.0 % Normal [facility] Comment on above: Order Comment: Speci men Type: BLOOD SPECIMENOrdering Facility: [facility] Address: [address] [place] [address] Performed By: #### 5 7021-8 ####[facility] LABORATORYIA [id number] [place] [address] [place] Neutrophils (Bld) [#/Vol] 19.91 10*3/uL High 1.45-7.50 [facility] Comment on above: Order Comment: Speci men Type: BLOOD SPECIMENOrdering Facility: [facility] Address: [address] [place] [address] Performed By: #### 5 7021-8 ####[facility] LABORATORYIA [id number] [place] [address] [place] Neutrophils/100 WBC (Bld) 91.0 % Normal [facility] Comment on above: Order Comment: Speci men Type: BLOOD SPECIMENOrdering Facility: [facility] Address: [address] [place] [address] Performed By: #### 5 7021-8 ####[facility]ITALIA [id number] [place] [address] [place] Nucleated RBC (Bld) [#/Vol] 10*3/uL Normal <0.01 [facility] Comment on above: Order Comment: Speci men Type: BLOOD SPECIMENOrdering Facility: [facility] Address: [address] [place] [address] Performed By: #### 5 7021-8 ####[facility] LABORATORYIA [id number] [place] [address] [place] Nucleated RBC/100 WBC (Bld) [Ratio] 0.0 /100 WBC Normal [facility] Comment on above: Order Comment: Speci men Type: BLOOD SPECIMENOrdering Facility: [facility] Address: [address] [place] [address] Performed By: #### 5 7021-8 ####[facility] LABORATORYCLIA [id number] [facility] [place] [address] [place] Platelet mean volume (Bld) [Entitic vol] 11.5 fL Normal 9.0-12.7 [facility] Comment on above: Order Comment: Speci men Type: BLOOD SPECIMENOrdering Facility: [facility] Address: [address] [place] [address] Performed By: #### 5 7021-8 ####[facility]ITALIA [id number] [place] [address] [place] Platelets (Bld) [#/Vol] 435 10*3/uL High 150-400 [facility] Comment on above: Order Comment: Speci men Type: BLOOD SPECIMENOrdering Facility: [facility] Address: [address] [place] [address] Performed By: #### 5 7021-8 ####[facility]ITALIA [id number] [place] [address] [place] Platelets Estimate (Bld) [#/Vol] Increased Normal [facility] Comment on above: Order Comment: Speci men Type: BLOOD SPECIMENOrdering Facility: [facility] Address: [address] [place] [address] Performed By: #### 5 7021-8 ####[facility] LABORATORYIA [id number] [place] [address] [place] Polychromasia LM Ql (Bld) Slight Normal [facility] Comment on above: Order Comment: Speci men Type: BLOOD SPECIMENOrdering Facility: [facility] Address: [address] [place] [address] Performed By: #### 5 7021-8 ####[facility] LABORATORYIA [id number] [place] [address] [place] RBC (Bld) [#/Vol] 3.83 10*6/uL Low 4.20-6.00 [facility] Comment on above: Order Comment: Speci men Type: BLOOD SPECIMENOrdering Facility: [facility] Address: [address] [place] [address] Performed By: #### 5 7021-8 ####[facility] LABORATORYCLIA [id number] [place] [address] [place] RED CELL MORPH Reviewed: see result s of individual morphologies Normal [facility] Comment on above: Order Comment: Speci men Type: BLOOD SPECIMENOrdering Facility: [facility] Address: [address] [place] [address] Performed By: #### 5 7021-8 ####[facility] LABORATORYCLIA [id number] [place] [address] [place] WBC (Bld) [#/Vol] 21.88 10*3/uL High 3.70-11.00 [facility] Comment on above: Order Comment: Speci men Type: BLOOD SPECIMENOrdering Facility: [facility] Address: [address] [place] [address] Performed By: #### 5 7021-8 ####[facility] LABORATORYCLIA [id number] [place] [address] [place] CNCRITCRon 11-21-2023 CNCRITCR Normal [facility] CONSULTon 11-21-2023 CONSULT HNO ID: [id number] Author: DEONNA ANAND APRN.FUNERAL DRIVER Service: Wound/Ostomy Author Type: Nurse Practitioner Type: Consults Filed: 11/22/2023 10:00 Note Text: WOUND CARE SERVICE CONSULT NOTE SERVICE DATE: 11/21/2023 SERVICE TIME: 3:03 PM Consultation requested by Nima Schrader MD for an opinion regarding Coccyx. My final recommendations will be communicated back to requesting provider by way of shared medical record. Subjective HISTORY OF PRESENT ILLNESS: Lolis Quinones III is a 38 year old male is being seen with the admitting diagnosis of Sepsis. Resides at [facility] and transfer from [facility]. 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 Information obtained by: Chart Patient recently admitted to [facility] from 10/09-10/23/23 for stage 4 sacral wound. Patient was evaluated by ID, wound care and plastic surgery. Patient underwent bedside debridement sacral ulcer per plastic surgery on 10/15/23. Patient discharged to SNF on 10/23/23. No family available during wound visit REVIEW OF SYSTEMS: Unable to obtain. 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 PAST SURGICAL HISTORY Procedure Laterality Date TONSILLECTOMY AND ADENOIDECTOMY Tonsil/adenoidectomy Social History Tobacco Use Smoking status: Never Substance Use Topics Alcohol use: No FAMILY HISTORY Problem Relation Age of Onset Ischemic Heart Disease Paternal Grandfather NV at 36 MEDICATIONS: Current Facility-Administered Medications Medication Dose Route Frequency dextrose 15 gram/32 mL 15 g (TRUEPLUS) 15 g ORAL PRN Or glucagon 1 mg injection 1 mg INTRAMUSCULAR PRN Or dextrose 10% iv bolus 12.5 g INTRAVENOUS PRN NaCl 0.9% iv flush bag 20 mL INTRAVENOUS PRN lactated ringers iv infusion 75 mL/hr INTRAVENOUS CONTINUOUS Chlorhexidine Gluconate 0.12 % 15 mL (PERIDEX) 15 mL ORAL QID pantoprazole 40 mg oral liquid (PROTONIX) 40 mg ORAL/FEEDING TUBE DAILY (6 AM) ondansetron 4 mg tab(s) (ZOFRAN) 4 mg ORAL q 6 H PRN Or ondansetron (PF) 4 mg injection (ZOFRAN) 4 mg INTRAVENOUS q 6 H PRN bisacodyl 10 mg suppository (DULCOLAX) 10 mg RECTAL DAILY PRN vancomycin dosing and monitoring per pharmacy OTHER As Directed insulin lispro injection (rapid acting) (ADMElog) SUBCUTANEOUS q 6 H meropenem 1 g in NaCl 0.9% 100 mL Vial-Bag (MERREM) 1 g INTRAVENOUS q 8 H docusate 100 mg oral liquid (COLACE) 100 mg ORAL/FEEDING TUBE BID PRN gabapentin 300 mg oral liquid (NEURONTIN) 300 mg ORAL/FEEDING TUBE TID cetirizine 10 mg tab(s) (ZYRTEC) 10 mg ORAL/FEEDING TUBE DAILY albuterol 2.5 mg /3 mL (0.083 %) 2.5 mg (PROVENTIL) 2.5 mg INHALATION BID albuterol 2.5 mg /3 mL (0.083 %) 2.5 mg (PROVENTIL) 2.5 mg INHALATION q 4 H PRN white petrolatum-mineral oil 1 Drop ophthalmic ointment (Soothe Lubricant Eye Night Time Ointment) 1 Drop BOTH EYES PRN sodium chloride 7% solution 4 mL INHALATION ONLY 4 mL INHALATION BID melatonin 3 mg tab(s) 3 mg ORAL/FEEDING TUBE AT BEDTIME PRN escitalopram oxalate 10 mg tab(s) (LEXAPRO) 10 mg ORAL/FEEDING TUBE DAILY baclofen 5 mg tab(s) 5 mg ORAL/FEEDING TUBE TID acetaminophen 650 mg CUP (TYLENOL) 650 mg ORAL/FEEDING TUBE q 4 H PRN metoprolol tartrate (short acting) 25 mg tab(s) (LOPRESSOR) 25 mg ORAL/FEEDING TUBE q 12 H sodium hypochlorite 0.125 % (DAKIN'S QUARTER STRENGTH) TOPICAL BID vancomycin iv piggyback 1 g in D5W 200 mL (VANCOCIN) 1 g INTRAVENOUS q 12 HR potassium phosphate 15 mmol in NaCl 0.9% 250 mL 15 mmol INTRAVENOUS ONCE lidocaine (PF) 10 mg/mL (1 %) 10-20 mg injection (XYLOCAINE) 1-2 mL INTRADERMAL ONCE enteric contrast (radiology procedure) ORAL DIRECTED PRN oxyCODONE 10 mg oral liquid (ROXICODONE) 10 mg ORAL/FEEDING TUBE q 6 H ALLERGIES Allergen Reactions Fentanyl Shortness of Breath Objective PHYSICAL EXAM: There were no vitals taken for this visit. General: No Distress Musculoskeletal: Positive for contractures Skin: Skin warm and dry Wound: Location: Sacrum Type: Pressure Stage: Stage 4 Exposed structure: None Wound measurements (cm): Approximately 5 x 4 x 2.2 Full Thickness:Yes Tunneling/undermining: Undermining 3 cm at 3 o'clock Wound tissue: Red and scant yellow Julissa-wound: (more content not included)... [facility] CONSULT PROGon 11-21-2023 CONSULT PROG STEFANIEO ID: [id number] Author: ADOLFO CORMIER RPh Service: Pharmacy Author Type: Pharmacist Type: Consult Progress Note Filed: 11/21/2023 15:50 Note Text: PHARMACY VANCOMYCIN DOSING NOTE Patient Name: Lolis Quinones III Admission Date: 11/21/2023 Date of Consult: 11/21/2023 Time of Consult: 3:43 PM Indication: Source unknown; empiric Goal Range: 15-20 mcg/mL RECOMMENDATIONS/PLAN: Pharmacy consulted for vancomycin dosing for Lolis Quinones III, a 38 year old male. 1. Patient is currently ordered Vancomycin 1 g IV once. Today is day 1 of therapy. Per outside hospital, patient received Vanco 1.25 g IV once today at 0946. 2. No vancomycin level has been drawn for this dosing regimen. 3. Serum creatinine and/or urine output have changed markedly in the previous days, therefore will discontinue vancomycin at this time and dose by level. (SCr 0.87 mg/dL per outside hospital records) 4. The next vancomycin level has been ordered for tomorrow with morning labs (Completed) We will follow patient renal function, vancomycin levels and doses with you during the course of therapy. Additional recommendations will appear in follow up notes. If you have any questions, please contact pharmacist at extension [phone]. Age: [age] year old Allergies: ALLERGIES Allergen Reactions Fentanyl Shortness of Breath Last 3 Encounter Wt Readings: Date: Wt: 10/09/2023 80.3 kg (177 lb 0.5 oz) 01/16/2005 85.7 kg (189 lb) Last 1 Encounter Ht Readings: Date: Ht: 10/09/2023 160 cm (5' 3 ) Estimated CrCl: > 100 mL/min (using SCr of 0.87 mg/dL and weight of 74.8 kg from outside hospital records; both were noted today) No data recorded. - Current Labs BUN (mg/dL) Date Value 10/22/2023 12 10/21/2023 11 10/20/2023 12 Creatinine (mg/dL) Date Value 10/22/2023 0.46 (L) 10/21/2023 0.41 (L) 10/20/2023 0.46 (L) WBC (k/uL) Date Value 10/22/2023 13.67 (H) 10/21/2023 16.08 (H) 10/20/2023 11.74 (H) Vancomycin Levels: No results found for: FEDERICO Cormier, [facility] Normal [facility] Comprehensive metabolic 2000 panelon 11-21-2023 Albumin [Mass/Vol] 3.0 g/dL Low 3.9-4.9 [facility]spital Comment on above: Order Comment: Speci men Type: BLOOD SPECIMEN [facility] Address: [address] [place] [address] Performed By: #### 3 3959-8, 31737-9, 45797-8 #### [facility] CLIA [id number] [place] [address] [place] ALP [Catalytic activity/Vol] 118 U/L High 38-113 [facility] Comment on above: Order Comment: Speci men Type: BLOOD SPECIMEN [facility] Address: [address] [place] [address] Performed By: #### 3 3959-8, 93032-0, 83992-8 #### [facility] CLIA [id number] [address] [place] [address] [place] ALT [Catalytic activity/Vol] 26 U/L Normal 10-54 [facility] Comment on above: Order Comment: Speci men Type: BLOOD SPECIMEN [facility] Address: [address] [place] [address] Performed By: #### 3 3959-8, 62620-1, 07509-2 #### [facility] CLIA [id number] [address] [place] [address] [place] Anion gap [Moles/Vol] 11 mmol/L Normal 9-18 [facility] Comment on above: Order Comment: Speci men Type: BLOOD SPECIMEN [facility] Address: [address] [place] [address] Performed By: #### 3 3959-8, 08358-9, 13939-1 #### [facility] CLIA [id number] [address] [place] [address] [place] AST [Catalytic activity/Vol] 20 U/L Normal 14-40 [facility] Comment on above: Order Comment: Speci men Type: BLOOD SPECIMEN [facility] Address: [address] [place] [address] Performed By: #### 3 3959-8, 35329-4, 43191-5 #### [facility] CLIA [id number] [address] [place] [address] [place] Bilirubin [Mass/Vol] 0.3 mg/dL Normal 0.2-1.3 [facility] Comment on above: Order Comment: Speci men Type: BLOOD SPECIMEN [facility] Address: [address] [place] [address] Performed By: #### 3 3959-8, 09423-7, 69550-4 #### [facility] CLIA [id number] [address] [place] [address] [place] Calcium [Mass/Vol] 9.0 mg/dL Normal 8.5-10.2 [facility] Comment on above: Order Comment: Speci men Type: BLOOD SPECIMEN [facility] Address: [address] [place] [address] Performed By: #### 3 3959-8, 98771-1, 45108-1 #### [facility] CLIA [id number] [address] [place] [address] [place] Chloride [Moles/Vol] 104 mmol/L Normal 97-105 [facility] Comment on above: Order Comment: Speci men Type: BLOOD SPECIMEN [facility] Address: [address] [place] [address] Performed By: #### 3 3959-8, 76179-6, 03700-9 #### [facility] CLIA [id number] [facility] [place] [address] [place] CO2 [Moles/Vol] 30 mmol/L Normal 22-30 [facility] Comment on above: Order Comment: Speci men Type: BLOOD SPECIMEN [facility] Address: [address] [place] [address] Performed By: #### 3 3959-8, 97802-6, 65615-7 #### [facility] CLIA [id number] [address] [facility] [place] [address] [place] Creatinine [Mass/Vol] 0.59 mg/dL Low 0.73-1.22 [facility] Comment on above: Order Comment: Speci men Type: BLOOD SPECIMEN [facility] Address: [address] [place] [address] Performed By: #### 3 3959-8, 26859-8, 82289-7 #### [facility] CLIA [id number] [facility] [place] [address] [place] Creatinine and Glomerular filtration rate.predicted panel (S/P/Bld) 127 mL/min/1.73m??? Normal >=60 [facility] Comment on above: Order Comment: Speci men Type: BLOOD SPECIMEN [facility] Address: [address] [place] [address] Result Comment: Rae mated Glomerular Filtration Rate [...] accurately reflect actual GFR. Performed By: #### 3 3959-8, 46683-4, 41477-0 #### [facility] CLIA [id number] [facility] [place] [address] [place] Glucose [Mass/Vol] 141 mg/dL High 74-99 [facility] Comment on above: Order Comment: Speci men Type: BLOOD SPECIMEN [facility] Address: [address] [place] [address] Result Comment: The [place] Diabetes Association (ADA) provides guidance for cutoff values for fasting glucose and random glucose. The ADA defines fasting as no caloric intake for at least 8 hours. Fasting plasma glucose results between 100 to 125 mg/dL indicate increased risk for diabetes (prediabetes). Fasting plasma glucose results greater than or equal to 126 mg/dL meet the criteria for diagnosis of diabetes. In the absence of unequivocal hyperglycemia, results should be confirmed by repeat testing. In a patient with classic symptoms of hyperglycemia or hyperglycemic crisis, random plasma glucose results greater than or equal to 200 mg/dL meet the criteria for diagnosis of diabetes. Reference: Standards of Medical Care in Diabetes 2016, [place] [employer] Diabetes Association. Diabetes Care. 2016.39(Suppl 1). Performed By: #### 3 3959-8, 15249-2, 51889-2 #### [facility] CLIA [id number] [address] [place] [address] [place] Potassium [Moles/Vol] 4.0 mmol/L Normal 3.7-5.1 [facility] Comment on above: Order Comment: Gabrielai men Type: BLOOD SPECIMEN [facility] Address: [address] [place] [address] Performed By: #### 3 3959-8, 75751-6, 29510-2 #### [facility] CLIA [id number] [place] [address] [place] Protein [Mass/Vol] 6.4 g/dL Normal 6.3-8.0 [facility] Comment on above: Order Comment: Speci men Type: BLOOD SPECIMEN [facility] Address: [address] [place] [address] Performed By: #### 3 3959-8, 13804-7, 68228-5 #### [facility] CLIA [id number] [address] [place] [address] [place] Sodium [Moles/Vol] 145 mmol/L High 136-144 [facility] Comment on above: Order Comment: Speci men Type: BLOOD SPECIMEN [facility] Address: [address] [place] [address] Performed By: #### 3 3959-8, 74637-9, 31912-3 #### [facility] CLIA [id number] [address] [place] [address] [facility] Urea nitrogen [Mass/Vol] 22 mg/dL Normal 9-24 [facility] Comment on above: Order Comment: Speci men Type: BLOOD SPECIMEN [facility] Address: [address] [place] [address] Performed By: #### 3 3959-8, 64405-7, 19955-8 #### [facility] CLIA [id number] [address] [place] [address] [facility] ECG COMPLETEon 11-21-2023 ECG COMPLETE Ventricular Rate : 1 21 BPM Atrial Rate : 121 BPM P-R Interval : 135 ms QRS Duration : 103 ms Q-T Interval : 297 ms QTC Calculation(Bazett) : 422 ms Calculated P Deerfield : 39 degrees Calculated R [place] : 88 degrees Calculated T [place]field : -64 degrees Sinus tachycardia Borderline T abnormalities, diffuse leads Borderline ECG Confirmed by TING NEWELL M.D. ([id number]) on 11/21/2023 6:14:58 PM NAME : LOLIS QUINONES PID : [id number] : 1985 Gender : Male Race : ORD : [id number] Procedure Date : Nov 21 2023 16:35:57 Edit Date : Nov 21 2023 18:14:59 Diagnosis: Sinus tachycardia Borderline T abnormalities, diffuse leads Borderline ECG Confirmed by TING NEWELL M.D. ([id number]) on 11/21/2023 6:14:58 PM Test Reason : Arrhythmia Location : 300 : EKG ICU Overread By : TING NEWELL M.D. Edited By : TING NEWELL M.D. Referred By : IVAN COOK Acquired by : AURELIO SCHULTE [facility] FLUABV+SARS-CoV-2+RSV Pnl Re sp COMPA+probeon 11-21-2023 FLUABV+SARS-CoV-2+RSV Pnl Resp COMPA+probe COVID 19 RESULT: Not detected The method used is RT-PCR or an equivalent NAAT method. Reference Range(the expected result in uninfected individuals): Not detected INFLUENZA A PCR: Not detected INFLUENZA B PCR: Not detected RSV PCR: Not detected Normal [facility] Comment on above: Performed By: #### 9 5941-1 ####[facility] LABORATORYCLIA [id number] [facility] [id number] [facility] GASTRIC OCC BLDon 11-21-2023 Hemoglobin.gastrointe stinal Ql (Gm fld) Positive Abnormal Negative [facility] Comment on above: Order Comment: Speci men Type: GASTRIC FLUID SPECIMENOrdering Facility: [facility] Address: [address] [place] [address] Performed By: #### F GSTRO ####[facility] LABCLIA [id number] [facility] HISTORY PHYSICALon HISTORY PHYSICAL HNO ID: [id number] Author: THERON LEYVA APRN.FUNERAL DRIVER Service: Critical Care Author Type: Nurse Practitioner Type: H&P Filed: 11/21/2023 17:59 Note Text: SERVICE DATE: 11/21/2023 SERVICE TIME: 5:54 PM [facility] HANDP NOTE HPI: This is a 38 year old male with a past medical history of 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 According to ED provider, he was never hypotensive and did not have a lactate. Fever was 102+ and he was tachycardic into the 140s. He remained on his baseline vent settings with VT 400, RR 14, 45% and PEEP 5 without issue. Vitals included HR 145, RR 19, BP 108/62 and SPO2 96 on 45% FIO2. He received 2L IVF and was started on broad spectrum antibiotics. ED report noted WBC 21,700, Hgb 10.3, Hct 35.5, Na 143, K 4.1, BUN 26, CR 0.87, Lactate 1.8. CXR: underexpanded lungs with mild bibasilar infiltrates versus atelectasis right greater than left. CT ABD/P Negative for acute process, CT Brain negative for acute process. Recently, he was treated for acute cholecystitis and had a percutaneous kwasi tube placed at [facility] which was removed 10/10/2022. ED provider initially requested patient to transfer to MICU at [facility] per family request but due to bed availability, patient is to be admitted to ICU at [facility] for Sepsis and Chronic Respiratory Failure requiring continuous ventilator support. 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[facility]) 10/10/2023 PAST SURGICAL HISTORY Procedure Laterality Date - TONSILLECTOMY AND ADENOIDECTOMY Tonsil/adenoidectomy FAMILY HISTORY Problem Relation Age of Onset - Ischemic Heart Disease Paternal Grandfather NV at 36 Social History Occupational History 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 [employer] Tobacco Use Smoking status: Never Smokeless tobacco: Not on file Substance and Sexual Activity Alcohol use: No Drug use: Not on file Sexual activity: Not on file ALLERGIES Allergen Reactions - Fentanyl Shortness of Breath PRIOR TO ADMISSION MEDICATIONS acetaminophen (TYLENOL) 325 mg tablet, 2 tablets by ORAL/FEEDING TUBE route every 4 hours as needed for fever (specify temp.)., Disp: , Rfl: albuterol (PROVENTIL) 2.5 mg /3 mL (0.083 %) nebulizer solution, Use 3 mL via nebulizer every 4 hours as needed for wheezing/shortness of breath., Disp: , Rfl: apixaban (ELIQUIS) 5 mg tab(s), Take 1 tablet by mouth two times a day., Disp: , Rfl: baclofen 5 mg tablet, 3 tablets by ORAL/FEEDING TUBE route three times a day., Disp: , Rfl: cetirizine (ZYRTEC) 10 mg tablet, Take 1 tablet by mouth once daily., Disp: , Rfl: dextrose 10%, Inject 125-250 mL intravenously as needed (low blood sugar)., Disp: , Rfl: dextrose (TRUEPLUS) 15 gram/32 mL oral gel, Take 32 mL by mouth as needed., Disp: , Rfl: escitalopram oxalate (LEXAPRO) 10 mg tablet, 1 tablet by ORAL/FEEDING TUBE route once daily., Disp: , Rfl: gabapentin (NEURONTIN) 300 mg/6 mL (6 mL) oral solution, 6 mL by ORAL/FEEDING TUBE route three times a day for 30 days., Disp: , Rfl: glucagon 1 mg/mL injection, Inject 1 mg subcutaneously as needed., Disp: , Rfl: melatonin 3 mg tablet, 1 tablet by ORAL/FEEDING TUBE route at bedtime as needed for insomnia., Disp: , Rfl: metoprolol tartrate, short acting, (LOPRESSOR) 25 mg tablet, 0.5 tablets by ORAL/FEEDING TUBE route every 12 hours., Disp: , Rfl: phosphorus (K PHOS NEUTRAL) 250 mg tablet, 1 tablet by ORAL/FEEDING TUBE route as needed (for phosphorus less than 2.5 mg/dL - see admin instructions)., Disp: , Rfl: polyethylene glycol 3350 17 gram packet, 1 Packet by ORAL/FEEDING TUBE route once daily. Dissolve dose in 4 - 8 ounces of liquid and take as directed., Disp: , Rfl: senna (SENOKOT) 8.6 mg tab, 1 tablet by ORAL/FEEDING TUBE route two times a day., Disp: , Rfl: sodium chloride 7% solution 7 % solution for nebulization, Inhale 4 mL as instructed two times a day., Disp: , Rfl: albuterol (PROVENTIL) 2.5 mg /3 mL (0.083 %) nebulizer solution, Use 3 mL via nebulizer two times a day., Disp: , Rfl: white petrolatum-mineral oil (SOOTHE LUBRICANT EYE NIGHT TIME OINTMENT) ointment, Use 1 Drop in both eyes as needed., Disp: , Rfl: zinc oxide (DESITIN) 13 % crea, Apply to affected area as needed (incontinence)., Disp: , Rfl: zinc ox (more content not included)... Normal [facility] NT-proBNP SerPl-mCncon 11-20 Natriuretic peptide.B prohormone N-Terminal [Mass/Vol] 236 pg/mL High <125 [facility] Comment on above: Order Comment: Speci karishma Type: BLOOD SPECIMEN [facility] Facility[facility] Address: [address] [place] [address] Performed By: #### 3 3959-8, 61166-6, 52608-7 #### [facility] CLIA [id number] [place] [address] [place] Procalcitonin SerPl-ncon 0 11-21-2023 Procalcitonin [Mass/Vol] 0.86 ng/mL High <0.09 [facility] Comment on above: Order Comment: Speci karishma Type: BLOOD SPECIMEN Ordering Facility: [facility] Address: [address] [place] [address] Result Comment: For a guided interpretation of test results, please visit the Change in Procalcitonin Calculator, [email or web address]. Performed By: #### 3 3959-8, 29692-1, 94239-5 #### [facility] CLIA [id number] [address] [place] [address] [place] SEPSIS LACTATEon 11-21-2023 Lactate [Moles/Vol] 1.2 mmol/L Normal 0.0-2.0 [facility] Comment on above: Order Comment: Speci karishma Type: BLOOD SPECIMENOrdering Facility: [facility] Address: [address] [place] [address] Performed By: #### S LACT ####[facility] LABORATORYCLIA [id number] [place] [address] [place] STAPH AUREUS PCRon S. aureus and MRSA panel COMPA+probe (Nose) Normal Negative [facility] Comment on above: Order Comment: Speci karishma Type: SWAB OF INTERNAL NOSE [facility] Facility: [facility] Address: [address] [place] [address] Result Comment: Nega tive for Staphylococcus aureus by PCR. Negative for MRSA by PCR Performed By: #### S APCR #### [facility] CLIA [id number] [address] [place] [address] [id number] [place] [address] [place] Urinalysis complete panel (U )on 11-21-2023 Bacteria LM.HPF (Urine sed) [#/Area] Many Abnormal None [facility]en [facility] Comment on above: Order Comment: Speci men Type: URINE SPECIMENOrdering Facility: [facility] Address: [address] [place] [address] Performed By: #### 2 4356-8 ####[facility] [id number] [place] [id number] [place] Bilirubin Ql (U) Negative Normal Negative [facility] Comment on above: Order Comment: Speci men Type: URINE SPECIMENOrdering Facility: [facility] Address: [address] [place] [address] Performed By: #### 2 4356-8 ####[facility] [id number] [place] [address] [place] Clarity (Unsp spec) Dense Turbid Abnormal Clear [facility] Comment on above: Order Comment: Speci men Type: URINE SPECIMENOrdering Facility: [facility] Address: [address] [place] [address] Performed By: #### 2 4356-8 ####[facility] [id number] [place] [address] [place] Color (U) Yellow Normal yellow [facility] Comment on above: Order Comment: Speci men Type: URINE SPECIMENOrdering Facility: [facility] Address: [address] [place] [address] Performed By: #### 2 4356-8 ####[facility] [id number] [place] [address] [place] Glucose Test strip (U) [Mass/Vol] Negative Normal Trace, Negative [facility] Comment on above: Order Comment: Speci men Type: URINE SPECIMENOrdering Facility: [facility] Address: [address] [place] [address] Performed By: #### 2 4356-8 ####[facility] [id number] [place] [address] [place] Hemoglobin Ql (U) 3+ Abnormal Negative, Trace [facility] Comment on above: Order Comment: Speci men Type: URINE SPECIMENOrdering Facility: [facility] Address: [address] [place] [address] Performed By: #### 2 4356-8 ####[facility] [id number] [place] [address] [place] Ketones Ql (U) Negative Normal Negative, Trace [facility] Comment on above: Order Comment: Speci men Type: URINE SPECIMENOrdering Facility: [facility] Address: [address] [place] [address] Performed By: #### 2 4356-8 ####[facility] [id number] [place] [address] [place] Leukocyte esterase Test strip Ql (U) 500 Benjy/uL Abnormal Negative, 25 Benjy/uL [facility] Comment on above: Order Comment: Speci men Type: URINE SPECIMENOrdering Facility: [facility] Address: [address] [place] [address] Performed By: #### 2 4356-8 ####[facility] [id number] [place] [address] [place] Nitrite Ql (U) 1+ Abnormal Negative [facility] Comment on above: Order Comment: Speci men Type: URINE SPECIMENOrdering Facility: [facility] Address: [address] [place] [address] Performed By: #### 2 4356-8 ####[facility] [id number] [place] [address] [place] pH (U) 7.0 [pH] Normal 5.0-8.0 [facility] Comment on above: Order Comment: Speci men Type: URINE SPECIMENOrdering Facility: [facility] Address: [address] [place] [address] Performed By: #### 2 4356-8 ####[facility] [id number] [place] [address] [place] Protein (U) [Mass/Vol] 1+ Abnormal Trace, Negative [facility] Comment on above: Order Comment: Speci men Type: URINE SPECIMENOrdering Facility: [facility] Address: [address] [place] [address] Performed By: #### 2 4356-8 ####[facility] [id number] [place] [id number] [place] RBC LM.HPF (Urine sed) [#/Area] /[HPF] Abnormal 0-3 /HPF [facility] Comment on above: Order Comment: Speci men Type: URINE SPECIMENOrdering Facility: [facility] Address: [address] [place] [address] Performed By: #### 2 4356-8 ####[facility] [id number] [place] [address] [place] Specific gravity (U) [Rel density] 1.042 High 1.005-1.030 [facility] Comment on above: Order Comment: Speci men Type: URINE SPECIMENOrdering Facility: [facility] Address: [address] [place] [address] Performed By: #### 2 4356-8 ####[facility] [id number] [place] [address] [place] Urobilinogen Ql (U) Normal Normal Normal [facility] Comment on above: Order Comment: Speci men Type: URINE SPECIMENOrdering Facility: [facility] Address: [address] [place] [address] Performed By: #### 2 4356-8 ####[facility] [id number] [place] [address] [place] WBC LM.HPF (Urine sed) [#/Area] /[HPF] Abnormal 0-5 /HPF [facility] Comment on above: Order Comment: Speci men Type: URINE SPECIMENOrdering Facility: [facility] Address: [address] [place] [address] Performed By: #### 2 4356-8 ####[facility] LABORATORYCLIA [id number] [place] [address] [place] XR CHEST 1V FRONTAL PORTon 0 11-21-2023 XR CHEST 1V FRONTAL PORT * * *Final Report* * * DATE OF EXAM: Nov 21 2023 4:39PM VHX [id number] - XR CHEST 1V FRONTAL PORT / PROCEDURE REASON: Shortness of breath * * * * Physician Interpretation * * * * EXAMINATION: CHEST RADIOGRAPH (PORTABLE SINGLE VIEW AP) Exam Date/Time: 11/21/2023 4:39 PM CLINICAL HISTORY: Shortness of breath MQ: XCPR_5 Comparison: 10/22/2023, and others RESULT: Lines, tubes, and devices: Stable tracheostomy tube. Lungs and pleura: Persistent retrocardiac left basilar consolidation and patchy right basilar airspace opacities. Little significant interval change given differences in technique. Cardiomediastinal silhouette: Normal cardiomediastinal silhouette. Other: No acute bony abnormalities. IMPRESSION: Essentially stable bibasilar infiltrates and/or atelectasis. Chemical Pathologist: BENOIT Transcribe Date/Time: Nov 21 2023 4:50P Dictated by : ROWAN GARCIA MD This examination was interpreted and the report reviewed and electronically signed by: ROWAN GARCIA MD on Nov 21 2023 4:51PM EST [id number] Normal [facility] CASE MANAGEMon 10-23-2023 CASE MANAGEM Normal [facility] CBC panel Auto (Bld)on 10-23 Erythrocyte distribution width (RBC) [Ratio] 18.6 % High 11.5-15.0 [facility] Comment on above: Order Comment: Speci men Type: BLOOD SPECIMENOrdering Facility: [facility] Address: [address] [place] [address] Performed By: #### 5 8410-2 ####[facility] LABCLIA [id number] [place] [address] [place] Hematocrit (Bld) [Volume fraction] 34.4 % Low 39.0-51.0 [facility] Comment on above: Order Comment: Speci men Type: BLOOD SPECIMENOrdering Facility: [facility] Address: [address] [place] [address] Performed By: #### 5 8410-2 ####[facility] LABCLIA [id number] [place] [address] [place] Hemoglobin (Bld) [Mass/Vol] 10.4 g/dL Low 13.0-17.0 [facility] Comment on above: Order Comment: Speci men Type: BLOOD SPECIMENOrdering Facility: [facility] Address: [address] [place] [address] Performed By: #### 5 8410-2 ####[facility] LABCLIA [id number] [place] [address] [place] MCH (RBC) [Entitic mass] 25.6 pg Low 26.0-34.0 [facility] Comment on above: Order Comment: Speci men Type: BLOOD SPECIMENOrdering Facility: [facility] Address: [address] [place] [address] Performed By: #### 5 8410-2 ####[facility] LABIA [id number] [place] [address] [place] MCHC (RBC) [Mass/Vol] 30.2 g/dL Low 30.5-36.0 [facility] Comment on above: Order Comment: Speci men Type: BLOOD SPECIMENOrdering Facility: [facility] Address: [address] [place] [address] Performed By: #### 5 8410-2 ####[facility] LABCLIA [id number] [place] [address] [place] MCV (RBC) [Entitic vol] 84.5 fL Normal 80.0-100.0 [facility] Comment on above: Order Comment: Speci men Type: BLOOD SPECIMENOrdering Facility: [facility] Address: [address] [place] [address] Performed By: #### 5 8410-2 ####[facility] LABIA [id number] [place] [address] [place] Nucleated RBC (Bld) [#/Vol] 10*3/uL Normal <0.01 [facility] Comment on above: Order Comment: Speci men Type: BLOOD SPECIMENOrdering Facility: [facility] Address: [address] [place] [address] Performed By: #### 5 8410-2 ####[facility] LABIA [id number] [place] [address] [place] Platelet mean volume (Bld) [Entitic vol] 10.4 fL Normal 9.0-12.7 [facility] Comment on above: Order Comment: Speci men Type: BLOOD SPECIMENOrdering Facility: [facility] Address: [address] [place] [address] Performed By: #### 5 8410-2 ####[facility] LABIA [id number] [place] [address] [place] Platelets (Bld) [#/Vol] 479 10*3/uL High 150-400 [facility] Comment on above: Order Comment: Speci men Type: BLOOD SPECIMENOrdering Facility: [facility] Address: [address] [place] [address] Performed By: #### 5 8410-2 ####[facility] LABIA [id number] [place] [address] [place] RBC (Bld) [#/Vol] 4.07 10*6/uL Low 4.20-6.00 [facility] Comment on above: Order Comment: Speci men Type: BLOOD SPECIMENOrdering Facility: [facility] Address: [address] [place] [address] Performed By: #### 5 8410-2 ####[facility] LABCLIA [id number] [place] [address] [place] WBC (Bld) [#/Vol] 13.67 10*3/uL High 3.70-11.00 [facility] Comment on above: Order Comment: Speci men Type: BLOOD SPECIMENOrdering Facility: [facility] Address: [address] [place] [address] Performed By: #### 5 8410-2 ####[facility] LABCLIA [id number] [place] [address] [place] CNDSon 10-23-2023 CNDS Normal [facility] CONSULT PROGon 10-23-2023 CONSULT PROG Normal [facility] Comprehensive metabolic 2000 panelon 10-23-2023 Albumin [Mass/Vol] 2.9 g/dL Low 3.9-4.9 [facility] Comment on above: Order Comment: Speci men Type: BLOOD SPECIMENOrdering Facility: [facility] Address: [address] [place] [address] Performed By: #### 2 4323-8, 27703-09, ####[facility] LABIA [id number] [place] [address] [place] ALP [Catalytic activity/Vol] 215 U/L High 38-113 [facility] Comment on above: Order Comment: Speci men Type: BLOOD SPECIMENOrdering Facility: [facility] Address: [address] [place] [address] Performed By: #### 2 4323-8, 2777-, ####[facility] LABIA [id number] [place] [address] [place] ALT [Catalytic activity/Vol] 22 U/L Normal 10-54 [facility] Comment on above: Order Comment: Speci men Type: BLOOD SPECIMENOrdering Facility: [facility] Address: [address] [place] [address] Performed By: #### 2 4323-8, 2777-1, ####[facility] LABCLIA [id number] [place] [address] [place] Anion gap [Moles/Vol] 11 mmol/L Normal 9-18 [facility] Comment on above: Order Comment: Speci men Type: BLOOD SPECIMENOrdering Facility: [facility] Address: [address] [place] [address] Performed By: #### 2 4323-8, 27703-09, ####[facility] LABCLIA [id number] [place] [address] [place] AST [Catalytic activity/Vol] 14 U/L Normal 14-40 [facility] Comment on above: Order Comment: Speci men Type: BLOOD SPECIMENOrdering Facility: [facility] Address: [address] [place] [address] Performed By: #### 2 4323-8, 27703-09, ####[facility] LABIA [id number] [place] [address] [place] Bilirubin [Mass/Vol] 0.2 mg/dL Normal 0.2-1.3 [facility] Comment on above: Order Comment: Speci men Type: BLOOD SPECIMENOrdering Facility: [facility] Address: [address] [place] [address] Performed By: #### 2 4323-8, 27703-09, ####[facility] LABIA [id number] [place] [address] [place] Calcium [Mass/Vol] 9.9 mg/dL Normal 8.5-10.2 [facility] Comment on above: Order Comment: Speci men Type: BLOOD SPECIMENOrdering Facility: [facility] Address: [address] [place] [address] Performed By: #### 2 4323-8, 2777-, ####[facility] LABCLIA [id number] [address] [address] [place] Chloride [Moles/Vol] 96 mmol/L Low 97-105 [facility] Comment on above: Order Comment: Speci men Type: BLOOD SPECIMENOrdering Facility: [facility] Address: [address] [place] [address] Performed By: #### 2 4323-8, 2777, ####[facility] LABIA [id number] [place] [id number] [place] CO2 [Moles/Vol] 31 mmol/L High 22-30 [facility] Comment on above: Order Comment: Speci men Type: BLOOD SPECIMENOrdering Facility: [facility] Address: [address] [place] [address] Performed By: #### 2 4323-8, 2777, ####[facility] LABIA [id number] [place] [address] [place] Creatinine [Mass/Vol] 0.46 mg/dL Low 0.73-1.22 [facility] Comment on above: Order Comment: Speci men Type: BLOOD SPECIMENOrdering Facility: [facility] Address: [address] [place] [address] Performed By: #### 2 4323-8, 27703-09, ####[facility] LABIA [id number] [address] [address] [place] Creatinine and Glomerular filtration rate.predicted panel (S/P/Bld) 136 mL/min/1.73m??? Normal >=60 [facility] Comment on above: Order Comment: Speci men Type: BLOOD SPECIMENOrdering Facility: [facility] Address: [address] [place] [address] Result Comment: Rae mated Glomerular Filtration Rate [...] GFR. Performed By: #### 2 4323-8, 2777-, ####[facility] LABCLIA [id number] [place] [address] [place] Glucose [Mass/Vol] 108 mg/dL High 74-99 [facility] Comment on above: Order Comment: Darwin schwarz Type: BLOOD SPECIMENOrdering Facility: [facility] Address: [address] [place] [address] Result Comment: The [place] [employer] (ADA) provides guidance for cutoff [...] Standards of Medical Care in Diabetes 2016, [place] [employer]. Diabetes Care. 2016.39(Suppl 1). Performed By: #### 2 4323-8, 2777, ####[facility] LABCLIA [id number] [address] [address] [place] Potassium [Moles/Vol] 4.3 mmol/L Normal 3.7-5.1 [facility] Comment on above: Order Comment: Darwin schwarz Type: BLOOD SPECIMENOrdering Facility: [facility] Address: [address] [place] [address] Performed By: #### 2 4323-8, 2777, ####[facility] LABCLIA [id number] [place] [address] [place] Protein [Mass/Vol] 6.2 g/dL Low 6.3-8.0 [facility] Comment on above: Order Comment: Speci men Type: BLOOD SPECIMENOrdering Facility: [facility] Address: [address] [place] [address] Performed By: #### 2 4323-8, 2777, ####[facility] LABIA [id number] [place] [address] [place] Urea nitrogen [Mass/Vol] 12 mg/dL Normal 9-24 [facility] Comment on above: Order Comment: Speci men Type: BLOOD SPECIMENOrdering Facility: [facility] Address: [address] [place] [address] Performed By: #### 2 4323-8, 2776-09, ####[facility] [id number] [place] [address] [place] Gas + CO Pnl BldVon 10-23-19 24 Sodium [Moles/Vol] 138 mmol/L Normal 136-144 [facility] Comment on above: Order Comment: Speci men Type: VENOUS BLOOD SPECIMENOrdering Facility: [facility] Address: [address] [place] [address] Performed By: #### 2 4344-4 ####[facility] LABIA [id number] [place] [address] [place] Order Comment: Speci men Type: BLOOD SPECIMENOrdering Facility: [facility] Address: [address] [place] [address] Performed By: #### 2 4323-8, 27703-09, ####[facility] LABIA [id number] [address] [address] [place] Gas and Carbon monoxide pane l (BldV)on 10-23-2023 Base excess Calc (BldV) [Moles/Vol] 10 mmol/L High 0-2 [facility] Comment on above: Order Comment: Speci men Type: VENOUS BLOOD SPECIMENOrdering Facility: [facility] Address: [address] [place] [address] Performed By: #### 2 4344-4 ####[facility] LABCLIA [id number] [place] [address] [place] Body temperature 100.22 [degF] Normal [facility] Comment on above: Order Comment: Speci men Type: VENOUS BLOOD SPECIMENOrdering Facility: [facility] Address: [address] [place] [address] Performed By: #### 2 4344-4 ####[facility] LABIA [id number] [place] [address] [place] Calcium.ionized (Bld) [Mass/Vol] 1.25 mmol/L Normal 1.08-1.30 [facility] Comment on above: Order Comment: Speci men Type: VENOUS BLOOD SPECIMENOrdering Facility: [facility] Address: [address] [place] [address] Performed By: #### 2 4344-4 ####[facility] LABIA [id number] [place] [address] [place] Calcium.ionized adjusted to pH 7.4 (BldA) [Moles/Vol] 1.26 mmol/L Normal 1.08-1.30 [facility] Comment on above: Order Comment: Speci men Type: VENOUS BLOOD SPECIMENOrdering Facility: [facility] Address: [address] [place] [address] Performed By: #### 2 4344-4 ####[facility] LABIA [id number] [place] [address] [place] Carboxyhemoglobin (BldV) [Mass fraction] 1.2 % Normal 0.0-2.0 [facility] Comment on above: Order Comment: Speci men Type: VENOUS BLOOD SPECIMENOrdering Facility: [facility] Address: [address] [place] [address] Result Comment: Carb oxyhemoglobin Reference Range for Smokers: 2.0-8.0% Performed By: #### 2 4344-4 ####[facility] LABCLIA [id number] [place] [id number] [place] CO2 (BldV) [Partial pressure] 56 mm[Hg] High 42-55 [facility] Comment on above: Order Comment: Speci men Type: VENOUS BLOOD SPECIMENOrdering Facility: [facility] Address: [address] [place] [address] Performed By: #### 2 4344-4 ####[facility] LABCLIA [id number] [place] [address] [place] CO2 adjusted to patient's actual temperature (BldV) [Partial pressure] 58 mmHg High 42-55 [facility] Comment on above: Order Comment: Speci men Type: VENOUS BLOOD SPECIMENOrdering Facility: [facility] Address: [address] [place] [address] Performed By: #### 2 4344-4 ####[facility] LABCLIA [id number] [place] [address] [place] FIO2 35 % Normal [facility] Comment on above: Order Comment: Speci men Type: VENOUS BLOOD SPECIMENOrdering Facility: [facility] Address: [address] [place] [address] Performed By: #### 2 4344-4 ####[facility] LABCLIA [id number] [place] [address] [place] Glucose [Mass/Vol] 114 mg/dL High 60-105 [facility] Comment on above: Order Comment: Speci men Type: VENOUS BLOOD SPECIMENOrdering Facility: [facility] Address: [address] [place] [address] Performed By: #### 2 4344-4 ####[facility] LABCLIA [id number] [place] [address] [place] HCO3 (Bld) [Moles/Vol] 35 mmol/L High 24-28 [facility] Comment on above: Order Comment: Speci men Type: VENOUS BLOOD SPECIMENOrdering Facility: [facility] Address: [address] [place] [address] Performed By: #### 2 4344-4 ####[facility] LABCLIA [id number] [place] [address] [place] Hematocrit (Bld) [Volume fraction] 32.6 % Low 39.0-51.0 [facility] Comment on above: Order Comment: Speci men Type: VENOUS BLOOD SPECIMENOrdering Facility: [facility] Address: [address] [place] [address] Performed By: #### 2 4344-4 ####[facility] LABIA [id number] [place] [address] [place] Hemoglobin (Bld) [Mass/Vol] 10.6 g/dL Low 13.0-17.0 [facility] Comment on above: Order Comment: Speci men Type: VENOUS BLOOD SPECIMENOrdering Facility: [facility] Address: [address] [place] [address] Performed By: #### 2 4344-4 ####[facility] LABIA [id number] [place] [address] [place] Lactate [Moles/Vol] 0.9 mmol/L Normal 0.5-2.2 [facility] Comment on above: Order Comment: Speci men Type: VENOUS BLOOD SPECIMENOrdering Facility: [facility] Address: [address] [place] [address] Performed By: #### 2 4344-4 ####[facility] LABCLIA [id number] [place] [address] [place] Methemoglobin (Bld) [Mass fraction] 0.9 % Normal 0.0-1.5 [facility] Comment on above: Order Comment: Speci men Type: VENOUS BLOOD SPECIMENOrdering Facility: [facility] Address: [address] [place] [address] Performed By: #### 2 4344-4 ####[facility] LABCLIA [id number] [address] [address] [place] O2 THERAPY Ventilator Normal [facility] Comment on above: Order Comment: Speci men Type: VENOUS BLOOD SPECIMENOrdering Facility: [facility] Address: [address] [place] [address] Performed By: #### 2 4344-4 ####[facility] LABCLIA [id number] [place] [address] [place] Oxygen (BldV) [Partial pressure] 54 mm[Hg] High 35-45 [facility] Comment on above: Order Comment: Speci men Type: VENOUS BLOOD SPECIMENOrdering Facility: [facility] Address: [address] [place] [address] Performed By: #### 2 4344-4 ####[facility] LABCLIA [id number] [address] [place] Oxygen adjusted to patient's actual temperature (BldV) [Partial pressure] 58 mmHg High 35-45 [facility] Comment on above: Order Comment: Speci men Type: VENOUS BLOOD SPECIMENOrdering Facility: [facility] Address: [address] [id number] Performed By: #### 2 4344-4 ####[facility] LABCLIA [id number] [place] [id number] [place] Oxygen saturation in Venous blood 86 % High 60-85 [facility] Comment on above: Order Comment: Speci men Type: VENOUS BLOOD SPECIMENOrdering Facility: [facility] Address: [address] [place], [place] [address] Performed By: #### 2 4344-4 ####[facility] LABCLIA [id number] [place] [address] [place] Oxyhemoglobin (BldV) [Mass fraction] 84 % Normal 60-85 [facility] Comment on above: Order Comment: Speci men Type: VENOUS BLOOD SPECIMENOrdering Facility: [facility] Address: [address] [place] [address] Performed By: #### 2 4344-4 ####[facility] LABIA [id number] [place] [address] [place] pH (BldV) 7.42 [pH] Normal 7.32-7.42 [facility] Comment on above: Order Comment: Speci men Type: VENOUS BLOOD SPECIMENOrdering Facility: [facility] Address: [address] [place] [address] Performed By: #### 2 4344-4 ####[facility] LABIA [id number] [place] [address] [place] pH adjusted to patient's actual temperature (BldV) 7.41 Normal 7.32-7.42 [facility] Comment on above: Order Comment: Speci men Type: VENOUS BLOOD SPECIMENOrdering Facility: [facility] Address: [address] [place] [address] Performed By: #### 2 4344-4 ####[facility] LABIA [id number] [place] [address] [place] Potassium [Moles/Vol] 4.1 mmol/L Normal 3.5-5.0 [facility] Comment on above: Order Comment: Speci men Type: VENOUS BLOOD SPECIMENOrdering Facility: [facility] Address: [address] [place] [address] Performed By: #### 2 4344-4 ####[facility] LABIA [id number] [place] [address] [place] Magnesium SerPl-mCncon 10-23 Magnesium [Mass/Vol] 2.1 mg/dL Normal 1.7-2.3 [facility] Comment on above: Order Comment: Speci men Type: BLOOD SPECIMENOrdering Facility: [facility] Address: [address] [place] [address] Performed By: #### 2 4323-8, 2777-1, 63780-8 ####[facility] LABIA [id number] [address] [address] [place] Phosphate SerPl-mCncon 10-23 Phosphate [Mass/Vol] 3.7 mg/dL Normal 2.7-4.8 [facility] Comment on above: Order Comment: Speci men Type: BLOOD SPECIMENOrdering Facility: [facility] Address: [address] [place] [address] Performed By: #### 2 4323-8, 2777-1, 24324-8 ####[facility] LABIA [id number] [place] [id number] [place] aPTT PPPon 10-23-2023 aPTT Coag (PPP) [Time] 34.2 s High 23.0-32.4 [facility] Comment on above: Order Comment: Speci men Type: BLOOD SPECIMENOrdering Facility: [facility] Address: [address] [place] [address] Performed By: #### 1 4979-9 ####[facility] [id number] [place] [id number] [place] CASE MANAGEMon 10-22-2023 CASE MANAGEM Normal [facility] CBC W Auto Differential pane l (Bld)on 10-22-2023 Basophils (Bld) [#/Vol] 0.09 10*3/uL Normal <0.11 [facility] Comment on above: Order Comment: Speci men Type: BLOOD SPECIMENOrdering Facility: [facility] Address: [address] [place] [address] Performed By: #### 5 8410-2, 09406-3 ####[facility] LABCLIA [id number] [place] [address] [place] Basophils/100 WBC (Bld) 0.6 % Normal [facility] Comment on above: Order Comment: Speci men Type: BLOOD SPECIMENOrdering Facility: [facility] Address: [address] [place] [address] Performed By: #### 5 8410-2, 97604-3 ####[facility] LABCLIA [id number] [place] [address] [place] Differential cell count method Nom (Bld) Auto Normal [facility] Comment on above: Order Comment: Speci men Type: BLOOD SPECIMENOrdering Facility: [facility] Address: [address] [place] [address] Performed By: #### 5 8410-2, 90562-9 ####[facility] LABCLIA [id number] [place] [address] [place] Eosinophils (Bld) [#/Vol] 0.12 10*3/uL Normal <0.46 [facility] Comment on above: Order Comment: Speci men Type: BLOOD SPECIMENOrdering Facility: [facility] Address: [address] [place] [address] Performed By: #### 5 8410-2, 36447-5 ####[facility] LABCLIA [id number] [place] [address] [place] Eosinophils/100 WBC (Bld) 0.8 % Normal [facility] Comment on above: Order Comment: Speci men Type: BLOOD SPECIMENOrdering Facility: [facility] Address: [address] [place] [address] Performed By: #### 5 8410-2, 02301-3 ####[facility] LABCLIA [id number] [place] [address] [place] Immature granulocytes (Bld) [#/Vol] 0.09 10*3/uL Normal <0.10 [facility] Comment on above: Order Comment: Speci men Type: BLOOD SPECIMENOrdering Facility: [facility] Address: [address] [place] [address] Performed By: #### 5 8410-2, 32784-1 ####[facility] LABCLIA [id number] [place] [address] [place] Immature granulocytes/100 WBC (Bld) 0.6 % Normal [facility] Comment on above: Order Comment: Speci men Type: BLOOD SPECIMENOrdering Facility: [facility] Address: [address] [place] [address] Performed By: #### 5 8410-2, 06623-6 ####[facility] LABCLIA [id number] [place] [address] [place] Lymphocytes (Bld) [#/Vol] 1.46 10*3/uL Normal 1.00-4.00 [facility] Comment on above: Order Comment: Speci men Type: BLOOD SPECIMENOrdering Facility: [facility] Address: [address] [place] [address] Performed By: #### 5 8410-2, 66263-4 ####[facility] LABCLIA [id number] [place] [address] [place] Lymphocytes/100 WBC (Bld) 9.1 % Normal [facility] Comment on above: Order Comment: Speci men Type: BLOOD SPECIMENOrdering Facility: [facility] Address: [address] [place] [address] Performed By: #### 5 8410-2, 13213-5 ####[facility] LABCLIA [id number] [place] [address] [place] Monocytes (Bld) [#/Vol] 0.70 10*3/uL Normal <0.87 [facility] Comment on above: Order Comment: Speci men Type: BLOOD SPECIMENOrdering Facility: [facility] Address: [address] [place] [address] Performed By: #### 5 8410-2, 27411-5 ####[facility] LABCLIA [id number] [place] [address] [place] Monocytes/100 WBC (Bld) 4.4 % Normal [facility] Comment on above: Order Comment: Speci men Type: BLOOD SPECIMENOrdering Facility: [facility] Address: [address] [place] [address] Performed By: #### 5 8410-2, 12323-1 ####[facility] LABCLIA [id number] [place] [address] [place] Neutrophils (Bld) [#/Vol] 13.50 10*3/uL High 1.45-7.50 [facility] Comment on above: Order Comment: Speci men Type: BLOOD SPECIMENOrdering Facility: [facility] Address: [address] [place] [address] Performed By: #### 5 8410-2, 47955-0 ####[facility] LABCLIA [id number] [place] [address] [place] Neutrophils/100 WBC (Bld) 84.5 % Normal [facility] Comment on above: Order Comment: Speci men Type: BLOOD SPECIMENOrdering Facility: [facility] Address: [address] [place] [address] Performed By: #### 5 8410-2, 64904-3 ####[facility] LABIA [id number] [place] [address] [place] CBC panel Auto (Bld)on 10-22 Erythrocyte distribution width (RBC) [Ratio] 18.4 % High 11.5-15.0 [facility] Comment on above: Order Comment: Speci men Type: BLOOD SPECIMENOrdering Facility: [facility] Address: [address] [place] [address] Performed By: #### 5 8410-2, 85226-8 ####[facility] LABCLIA [id number] [place] [address] [place] Hematocrit (Bld) [Volume fraction] 37.6 % Low 39.0-51.0 [facility] Comment on above: Order Comment: Speci men Type: BLOOD SPECIMENOrdering Facility: [facility] Address: [address] [place] [address] Performed By: #### 5 8410-2, 71501-3 ####[facility] LABCLIA [id number] [place] [address] [place] Hemoglobin (Bld) [Mass/Vol] 11.3 g/dL Low 13.0-17.0 [facility] Comment on above: Order Comment: Speci men Type: BLOOD SPECIMENOrdering Facility: [facility] Address: [address] [place] [address] Performed By: #### 5 8410-2, 68488-4 ####[facility] LABIA [id number] [place] [address] [place] MCH (RBC) [Entitic mass] 25.2 pg Low 26.0-34.0 [facility] Comment on above: Order Comment: Speci men Type: BLOOD SPECIMENOrdering Facility: [facility] Address: [address] [place] [address] Performed By: #### 5 8410-2, 83351-2 ####[facility] LABCLIA [id number] [place] [address] [place] MCHC (RBC) [Mass/Vol] 30.1 g/dL Low 30.5-36.0 [facility] Comment on above: Order Comment: Speci men Type: BLOOD SPECIMENOrdering Facility: [facility] Address: [address] [place] [address] Performed By: #### 5 8410-2, 82680-4 ####[facility] LABCLIA [id number] [place] [address] [place] MCV (RBC) [Entitic vol] 83.7 fL Normal 80.0-100.0 [facility] Comment on above: Order Comment: Speci men Type: BLOOD SPECIMENOrdering Facility: [facility] Address: [address] [place] [address] Performed By: #### 5 8410-2, 52224-3 ####[facility] LABCLIA [id number] [place] [address] [place] Nucleated RBC (Bld) [#/Vol] 10*3/uL Normal <0.01 [facility] Comment on above: Order Comment: Speci men Type: BLOOD SPECIMENOrdering Facility: [facility] Address: [address] [place] [address] Performed By: #### 5 8410-2, 56393-4 ####[facility] LABIA [id number] [place] [address] [place] Platelet mean volume (Bld) [Entitic vol] 10.2 fL Normal 9.0-12.7 [facility] Comment on above: Order Comment: Speci men Type: BLOOD SPECIMENOrdering Facility: [facility] Address: [address] [place] [address] Performed By: #### 5 8410-2, 38937-6 ####[facility] LABIA [id number] [place] [address] [place] Platelets (Bld) [#/Vol] 495 10*3/uL High 150-400 [facility] Comment on above: Order Comment: Speci men Type: BLOOD SPECIMENOrdering Facility: [facility] Address: [address] [place] [address] Performed By: #### 5 8410-2, 91415-3 ####[facility] LABIA [id number] [place] [address] [place] RBC (Bld) [#/Vol] 4.49 10*6/uL Normal 4.20-6.00 [facility] Comment on above: Order Comment: Speci men Type: BLOOD SPECIMENOrdering Facility: [facility] Address: [address] [place] [address] Performed By: #### 5 8410-2, 37179-4 ####[facility] LABCLIA [id number] [place] [address] [place] WBC (Bld) [#/Vol] 16.08 10*3/uL High 3.70-11.00 [facility] Comment on above: Order Comment: Speci men Type: BLOOD SPECIMENOrdering Facility: [facility] Address: [address] [place] [address] Performed By: #### 5 8410-2, 22934-8 ####[facility] LABCLIA [id number] [place] [address] [place] CONSULT PROGon 10-22-2023 CONSULT PROG Normal [facility] Comprehensive metabolic 2000 panelon 10-22-2023 Albumin [Mass/Vol] 3.0 g/dL Low 3.9-4.9 [facility] Comment on above: Order Comment: Speci men Type: BLOOD SPECIMENOrdering Facility: [facility] Address: [address] [place] [address] Performed By: #### 2 4323-8, 32538-6 ####[facility] LABIA [id number] [place] [address] [place] ALP [Catalytic activity/Vol] 263 U/L High 38-113 [facility] Comment on above: Order Comment: Speci men Type: BLOOD SPECIMENOrdering Facility: [facility] Address: [address] [place] [address] Performed By: #### 2 4323-8, 92242-3 ####[facility] LABCLIA [id number] [place] [address] [place] ALT [Catalytic activity/Vol] 29 U/L Normal 10-54 [facility] Comment on above: Order Comment: Speci men Type: BLOOD SPECIMENOrdering Facility: [facility] Address: [address] [place] [address] Performed By: #### 2 4323-8, 99551-4 ####[facility] LABCLIA [id number] [place] [address] [place] Anion gap [Moles/Vol] 9 mmol/L Normal 9-18 [facility] Comment on above: Order Comment: Speci men Type: BLOOD SPECIMENOrdering Facility: [facility] Address: [address] [place] [address] Performed By: #### 2 4323-8, 01959-3 ####[facility] LABCLIA [id number] [place] [address] [place] AST [Catalytic activity/Vol] 14 U/L Normal 14-40 [facility] Comment on above: Order Comment: Speci men Type: BLOOD SPECIMENOrdering Facility: [facility] Address: [address] [place] [address] Performed By: #### 2 4323-8, 10223-5 ####[facility] LABCLIA [id number] [place] [address] [place] Bilirubin [Mass/Vol] 0.2 mg/dL Normal 0.2-1.3 [facility] Comment on above: Order Comment: Speci men Type: BLOOD SPECIMENOrdering Facility: [facility] Address: [address] [place] [address] Performed By: #### 2 4323-8, 31279-6 ####[facility] LABCLIA [id number] [place] [address] [place] Calcium [Mass/Vol] 9.9 mg/dL Normal 8.5-10.2 [facility] Comment on above: Order Comment: Speci men Type: BLOOD SPECIMENOrdering Facility: [facility] Address: [address] [place] [address] Performed By: #### 2 4323-8, 42345-9 ####[facility] LABCLIA [id number] [place] [address] [place] Chloride [Moles/Vol] 96 mmol/L Low 97-105 [facility] Comment on above: Order Comment: Speci men Type: BLOOD SPECIMENOrdering Facility: [facility] Address: [address] [place] [address] Performed By: #### 2 4323-8, 18848-1 ####[facility] LABCLIA [id number] [place] [address] [place] CO2 [Moles/Vol] 34 mmol/L High 22-30 [facility] Comment on above: Order Comment: Speci men Type: BLOOD SPECIMENOrdering Facility: [facility] Address: [address] [place] [address] Performed By: #### 2 4323-8, 47097-4 ####[facility] LABCLIA [id number] [place] [address] [place] Creatinine [Mass/Vol] 0.41 mg/dL Low 0.73-1.22 [facility] Comment on above: Order Comment: Speci men Type: BLOOD SPECIMENOrdering Facility: [facility] Address: [address] [place] [address] Performed By: #### 2 4323-8, 17375-9 ####[facility] LABCLIA [id number] [place] [address] [place] Creatinine and Glomerular filtration rate.predicted panel (S/P/Bld) 141 mL/min/1.73m??? Normal >=60 [facility] Comment on above: Order Comment: Speci men Type: BLOOD SPECIMENOrdering Facility: [facility] Address: [address] [place] [address] Result Comment: Rae mated Glomerular Filtration Rate [...] actual GFR. Performed By: #### 2 4323-8, 74937-6 ####[facility] LABIA [id number] [place] [address] [place] Glucose [Mass/Vol] 106 mg/dL High 74-99 [facility] Comment on above: Order Comment: Specdominic schwarz Type: BLOOD SPECIMENOrdering Facility: [facility] Address: [address] [place] [address] Result Comment: The [place] [employer] (ADA) provides guidance for cutoff [...] Standards of Medical Care in Diabetes 2016, [place] [employer]. Diabetes Care. 2016.39(Suppl 1). Performed By: #### 2 4323-8, 40551-8 ####[facility] LABIA [id number] [place] [id number] [place] Potassium [Moles/Vol] 4.2 mmol/L Normal 3.7-5.1 [facility] Comment on above: Order Comment: Darwin schwarz Type: BLOOD SPECIMENOrdering Facility: [facility] Address: [address] [place] [address] Performed By: #### 2 4323-8, 54572-7 ####[facility] LABCLIA [id number] [place] [address] [place] Protein [Mass/Vol] 6.5 g/dL Normal 6.3-8.0 [facility] Comment on above: Order Comment: Speci men Type: BLOOD SPECIMENOrdering Facility: [facility] Address: [address] [place] [address] Performed By: #### 2 4323-8, 79136-2 ####[facility] LABIA [id number] [place] [address] [place] Sodium [Moles/Vol] 139 mmol/L Normal 136-144 [facility] Comment on above: Order Comment: Speci men Type: BLOOD SPECIMENOrdering Facility: [facility] Address: [address] [place] [address] Performed By: #### 2 4323-8, 25215-9 ####[facility] LABIA [id number] [place] [address] [place] Urea nitrogen [Mass/Vol] 11 mg/dL Normal 9-24 [facility] Comment on above: Order Comment: Speci men Type: BLOOD SPECIMENOrdering Facility: [facility] Address: [address] [place] [address] Performed By: #### 2 4323-8, 08744-9 ####[facility] LABIA [id number] [place] [address] [place] Procalcitonin SerPl-mCncon 0 10-22-2023 Procalcitonin [Mass/Vol] 0.09 ng/mL High <0.09 [facility] Comment on above: Order Comment: Speci men Type: BLOOD SPECIMENOrdering Facility: [facility] Address: [address] [place] [address] Result Comment: For a guided interpretation of test results, please visit the Change in Procalcitonin Calculator, [email or web address]. Performed By: #### 2 4323-8, 16241-8 ####[facility] LABCLIA [id number] [place] [address] [place] THERAPY NTon 10-22-2023 THERAPY NT Normal [facility] Urinalysis complete panel (U )on 10-22-2023 Bacteria LM.HPF (Urine sed) [#/Area] Negative Normal Negative [facility] Comment on above: Order Comment: Speci men Type: URINE SPECIMENOrdering Facility: [facility] Address: [address] [place] [address] Performed By: #### 2 4356-8 ####[facility] LABIA [id number] [place] [address] [place] Bilirubin Ql (U) Negative Normal Negative [facility] Comment on above: Order Comment: Speci men Type: URINE SPECIMENOrdering Facility: [facility] Address: [address] [place] [address] Performed By: #### 2 4356-8 ####[facility] LABCLIA [id number] [place] [address] [place] Clarity (Unsp spec) Cloudy Abnormal Clear [facility] Comment on above: Order Comment: Speci men Type: URINE SPECIMENOrdering Facility: [facility] Address: [address] [place] [address] Performed By: #### 2 4356-8 ####[facility] LABCLIA [id number] [place] [address] [place] Color (U) Yellow Normal Yellow [facility] Comment on above: Order Comment: Speci men Type: URINE SPECIMENOrdering Facility: [facility] Address: [address] [place] [address] Performed By: #### 2 4356-8 ####[facility] LABCLIA [id number] [place] [address] [place] Epithelial cells LM.HPF (Urine sed) [#/Area] None Seen Normal [facility] Comment on above: Order Comment: Speci men Type: URINE SPECIMENOrdering Facility: [facility] Address: [address] [place] [address] Performed By: #### 2 4356-8 ####[facility] LABCLIA [id number] [place] [address] [place] Glucose Test strip (U) [Mass/Vol] Negative Normal Negative [facility] Comment on above: Order Comment: Speci men Type: URINE SPECIMENOrdering Facility: [facility] Address: [address] [place] [address] Performed By: #### 2 4356-8 ####[facility] LABCLIA [id number] [place] [address] [place] Hemoglobin Ql (U) 2+ Abnormal Negative [facility] Comment on above: Order Comment: Speci men Type: URINE SPECIMENOrdering Facility: [facility] Address: [address] [place] [address] Performed By: #### 2 4356-8 ####[facility] LABCLIA [id number] [place] [address] [place] Hyaline casts (Urine sed) [#/Area] 1-3 /LPF Abnormal 0 /LPF [facility] Comment on above: Order Comment: Speci men Type: URINE SPECIMENOrdering Facility: [facility] Address: [address] [place] [address] Performed By: #### 2 4356-8 ####[facility] LABCLIA [id number] [place] [address] [place] Ketones Ql (U) Negative Normal Negative [facility] Comment on above: Order Comment: Speci men Type: URINE SPECIMENOrdering Facility: [facility] Address: [address] [place] [address] Performed By: #### 2 4356-8 ####[facility] [facility] LABCLIA [id number] [place] [address] [place] Leukocyte esterase Test strip Ql (U) Negative Normal Negative [facility] Comment on above: Order Comment: Speci men Type: URINE SPECIMENOrdering Facility: [facility] Address: [address] [place] [address] Performed By: #### 2 4356-8 ####[facility] LABCLIA [id number] [place] [address] [place] Nitrite Ql (U) Negative Normal Negative [facility] Comment on above: Order Comment: Speci men Type: URINE SPECIMENOrdering Facility: [facility] Address: [address] [place] [address] Performed By: #### 2 4356-8 ####[facility] LABCLIA [id number] [place] [address] [place] pH (U) 8.0 [pH] Normal <8.5 [facility] Comment on above: Order Comment: Speci men Type: URINE SPECIMENOrdering Facility: [facility] Address: [address] [place] [address] Performed By: #### 2 4356-8 ####[facility] LABCLIA [id number] [place] [address] [place] Protein (U) [Mass/Vol] 1+ Abnormal Negative [facility] Comment on above: Order Comment: Speci men Type: URINE SPECIMENOrdering Facility: [facility] Address: [address] [place] [address] Performed By: #### 2 4356-8 ####[facility] LABCLIA [id number] [place] [address] [place] RBC LM.HPF (Urine sed) [#/Area] /[HPF] Abnormal 0-2 /HPF [facility] Comment on above: Order Comment: Speci men Type: URINE SPECIMENOrdering Facility: [facility] Address: [address] [place] [address] Performed By: #### 2 4356-8 ####[facility] [id number] [place] [address] [place] Specific gravity (U) [Rel density] 1.016 Normal 1.005-1.030 [facility] Comment on above: Order Comment: Speci men Type: URINE SPECIMENOrdering Facility: [facility] Address: [address] [place] [address] Performed By: #### 2 4356-8 ####[facility] [id number] [place] [address] [place] Urobilinogen Ql (U) 0.2 EU/dL Normal 0.2-1.0 EU/dL [facility] Comment on above: Order Comment: Speci men Type: URINE SPECIMENOrdering Facility: [facility] Address: [address] [place] [address] Performed By: #### 2 4356-8 ####[facility] [id number] [place] [address] [place] WBC LM.HPF (Urine sed) [#/Area] 0-5 /HPF Normal 0-5 /HPF [facility] Comment on above: Order Comment: Speci men Type: URINE SPECIMENOrdering Facility: [facility] Address: [address] [place] [address] Performed By: #### 2 4356-8 ####[facility] [id number] [place] [id number] [place] XR CHEST 1V FRONTAL PORTon 0 10-22-2023 XR CHEST 1V FRONTAL PORT Normal [facility] aPTT PPPon 10-22-2023 aPTT Coag (PPP) [Time] 33.9 s High 23.0-32.4 [facility] Comment on above: Order Comment: Speci men Type: BLOOD SPECIMENOrdering Facility: [facility] Address: [address] [place] [address] Performed By: #### 1 4979-9 ####[facility] LABIA [id number] [place] [address] [place] CASE MANAGEMon 10-21-2023 CASE MANAGEM Normal [facility] CBC panel Auto (Bld)on 10-21 Erythrocyte distribution width (RBC) [Ratio] 18.9 % High 11.5-15.0 [facility] Comment on above: Order Comment: Speci men Type: BLOOD SPECIMENOrdering Facility: [facility] Address: [address] [place] [address] Performed By: #### 5 8410-2 ####[facility] [id number] [place] [address] [place] Hematocrit (Bld) [Volume fraction] 35.4 % Low 39.0-51.0 [facility] Comment on above: Order Comment: Speci men Type: BLOOD SPECIMENOrdering Facility: [facility] Address: [address] [place] [address] Performed By: #### 5 8410-2 ####[facility] [id number] [place] [address] [place] Hemoglobin (Bld) [Mass/Vol] 10.4 g/dL Low 13.0-17.0 [facility] Comment on above: Order Comment: Speci men Type: BLOOD SPECIMENOrdering Facility: [facility] Address: [address] [place] [address] Performed By: #### 5 8410-2 ####[facility] [id number] [place] [address] [place] MCH (RBC) [Entitic mass] 25.1 pg Low 26.0-34.0 [facility] Comment on above: Order Comment: Speci men Type: BLOOD SPECIMENOrdering Facility: [facility] Address: [address] [place] [address] Performed By: #### 5 8410-2 ####[facility] LABIA [id number] [place] [address] [place] MCHC (RBC) [Mass/Vol] 29.4 g/dL Low 30.5-36.0 [facility] Comment on above: Order Comment: Speci men Type: BLOOD SPECIMENOrdering Facility: [facility] Address: [address] [place] [address] Performed By: #### 5 8410-2 ####[facility] LABIA [id number] [place] [address] [place] MCV (RBC) [Entitic vol] 85.3 fL Normal 80.0-100.0 [facility] Comment on above: Order Comment: Speci men Type: BLOOD SPECIMENOrdering Facility: [facility] Address: [address] [place] [address] Performed By: #### 5 8410-2 ####[facility] [id number] [place] [address] [place] Nucleated RBC (Bld) [#/Vol] 10*3/uL Normal <0.01 [facility] Comment on above: Order Comment: Speci men Type: BLOOD SPECIMENOrdering Facility: [facility] Address: [address] [place] [address] Performed By: #### 5 8410-2 ####[facility] LABIA [id number] [place] [address] [place] Platelet mean volume (Bld) [Entitic vol] 10.4 fL Normal 9.0-12.7 [facility] Comment on above: Order Comment: Speci men Type: BLOOD SPECIMENOrdering Facility: [facility] Address: [address] [place] [address] Performed By: #### 5 8410-2 ####[facility] LABIA [id number] [place] [address] [place] Platelets (Bld) [#/Vol] 530 10*3/uL High 150-400 [facility] Comment on above: Order Comment: Speci men Type: BLOOD SPECIMENOrdering Facility: [facility] Address: [address] [place] [address] Performed By: #### 5 8410-2 ####[facility] LABCLIA [id number] [address] [address] [place] RBC (Bld) [#/Vol] 4.15 10*6/uL Low 4.20-6.00 [facility] Comment on above: Order Comment: Speci men Type: BLOOD SPECIMENOrdering Facility: [facility] Address: [address] [place] [address] Performed By: #### 5 8410-2 ####[facility] LABCLIA [id number] [place] [address] [place] WBC (Bld) [#/Vol] 11.74 10*3/uL High 3.70-11.00 [facility] Comment on above: Order Comment: Speci men Type: BLOOD SPECIMENOrdering Facility: [facility] Address: [address] [place] [address] Performed By: #### 5 8410-2 ####[facility] LABCLIA [id number] [place] [address] [place] CONSULT PROGon 10-21-2023 CONSULT PROG Normal [facility] Comprehensive metabolic 2000 panelon 10-21-2023 Albumin [Mass/Vol] 2.9 g/dL Low 3.9-4.9 [facility] Comment on above: Order Comment: Speci men Type: BLOOD SPECIMENOrdering Facility: [facility] Address: [address] [place] [address] Performed By: #### 2 4323-8 ####[facility] LABCLIA [id number] [place] [address] [place] ALP [Catalytic activity/Vol] 290 U/L High 38-113 [facility] Comment on above: Order Comment: Speci men Type: BLOOD SPECIMENOrdering Facility: [facility] Address: [address] [place] [id number] Performed By: #### 2 4323-8 ####[facility] LABCLIA [id number] [address] [address] [place] ALT [Catalytic activity/Vol] 34 U/L Normal 10-54 [facility] Comment on above: Order Comment: Speci men Type: BLOOD SPECIMENOrdering Facility: [facility] Address: [address] [place] [address] Performed By: #### 2 4323-8 ####[facility] LABCLIA [id number] [place] [address] [place] Anion gap [Moles/Vol] 11 mmol/L Normal 9-18 [facility] Comment on above: Order Comment: Speci men Type: BLOOD SPECIMENOrdering Facility: [facility] Address: [address] [place] [address] Performed By: #### 2 4323-8 ####[facility] LABCLIA [id number] [place] [address] [place] AST [Catalytic activity/Vol] 13 U/L Low 14-40 [facility] Comment on above: Order Comment: Speci men Type: BLOOD SPECIMENOrdering Facility: [facility] Address: [address] [place], [place] [address] Performed By: #### 2 4323-8 ####[facility] LABCLIA [id number] [place] [id number] [place] Bilirubin [Mass/Vol] 0.2 mg/dL Normal 0.2-1.3 [facility] Comment on above: Order Comment: Speci men Type: BLOOD SPECIMENOrdering Facility: [facility] Address: [address] [place], [place] [address] Performed By: #### 2 4323-8 ####[facility] LABCLIA [id number] [place] [address] [place] Calcium [Mass/Vol] 9.5 mg/dL Normal 8.5-10.2 [facility] Comment on above: Order Comment: Speci men Type: BLOOD SPECIMENOrdering Facility: [facility] Address: [address] [place] [address] Performed By: #### 2 4323-8 ####[facility] LABCLIA [id number] [place] [address] [place] Chloride [Moles/Vol] 96 mmol/L Low 97-105 [facility] Comment on above: Order Comment: Speci men Type: BLOOD SPECIMENOrdering Facility: [facility] Address: [address] [place] [address] Performed By: #### 2 4323-8 ####[facility] LABCLIA [id number] [place] [address] [place] CO2 [Moles/Vol] 33 mmol/L High 22-30 [facility] Comment on above: Order Comment: Speci men Type: BLOOD SPECIMENOrdering Facility: [facility] Address: [address] [place] [address] Performed By: #### 2 4323-8 ####[facility] LABCLIA [id number] [place] [address] [place] Creatinine [Mass/Vol] 0.46 mg/dL Low 0.73-1.22 [facility] Comment on above: Order Comment: Speci men Type: BLOOD SPECIMENOrdering Facility: [facility] Address: [address] [place] [address] Performed By: #### 2 4323-8 ####[facility] LABCLIA [id number] [place] [address] [place] Creatinine and Glomerular filtration rate.predicted panel (S/P/Bld) 136 mL/min/1.73m??? Normal >=60 [facility] Comment on above: Order Comment: Darwin schwarz Type: BLOOD SPECIMENOrdering Facility: [facility] Address: [address] [place] [address] Result Comment: Rae mated Glomerular Filtration Rate [...] actual GFR. Performed By: #### 2 4323-8 ####[facility] LABIA [id number] [place] [address] [place] Glucose [Mass/Vol] 99 mg/dL Normal 74-99 [facility] Comment on above: Order Comment: Darwin schwarz Type: BLOOD SPECIMENOrdering Facility: [facility] Address: [address] [place] [address] Result Comment: The [place] [employer] (ADA) provides guidance for cutoff [...] Standards of Medical Care in Diabetes 2016, [place] [employer]. Diabetes Care. 2016.39(Suppl 1). Performed By: #### 2 4323-8 ####[facility] [id number] [place] [address] [place] Potassium [Moles/Vol] 4.3 mmol/L Normal 3.7-5.1 [facility] Comment on above: Order Comment: Darwin schwarz Type: BLOOD SPECIMENOrdering Facility: [facility] Address: [address] [place] [id number] Performed By: #### 2 4323-8 ####[facility] LABCLIA [id number] [address] [address] [place] Protein [Mass/Vol] 6.0 g/dL Low 6.3-8.0 [facility] Comment on above: Order Comment: Speci men Type: BLOOD SPECIMENOrdering Facility: [facility] Address: [address] [place] [address] Performed By: #### 2 4323-8 ####[facility] LABCLIA [id number] [place] [address] [place] Sodium [Moles/Vol] 140 mmol/L Normal 136-144 [facility] Comment on above: Order Comment: Speci men Type: BLOOD SPECIMENOrdering Facility: [facility] Address: [address] [place] [address] Performed By: #### 2 4323-8 ####[facility] LABCLIA [id number] [place] [address] [place] Urea nitrogen [Mass/Vol] 12 mg/dL Normal 9-24 [facility] Comment on above: Order Comment: Speci men Type: BLOOD SPECIMENOrdering Facility: [facility] Address: [address] [place] [address] Performed By: #### 2 4323-8 ####[facility] LABIA [id number] [place] [id number] [place] NUTRITIONon 10-21-2023 NUTRITION Normal [facility] THERAPY NTon 10-21-2023 THERAPY NT Normal [facility] XR CHEST 1V FRONTAL PORTon 0 10-21-2023 XR CHEST 1V FRONTAL PORT Normal [facility] aPTT PPPon 10-21-2023 aPTT Coag (PPP) [Time] 33.3 s High 23.0-32.4 [facility] Comment on above: Order Comment: Speci men Type: BLOOD SPECIMENOrdering Facility: [facility] Address: [address] [place] [address] Performed By: #### 1 4979-9 ####[facility] LABIA [id number] [place] [address] [place] CBC panel Auto (Bld)on 10-20 Erythrocyte distribution width (RBC) [Ratio] 18.6 % High 11.5-15.0 [facility] Comment on above: Order Comment: Speci men Type: BLOOD SPECIMENOrdering Facility: [facility] Address: [address] [place] [address] Performed By: #### 5 8410-2 ####[facility] [id number] [place] [address] [place] Hematocrit (Bld) [Volume fraction] 33.1 % Low 39.0-51.0 [facility] Comment on above: Order Comment: Speci men Type: BLOOD SPECIMENOrdering Facility: [facility] Address: [address] [place] [address] Performed By: #### 5 8410-2 ####[facility] [id number] [place] [address] [place] Hemoglobin (Bld) [Mass/Vol] 9.7 g/dL Low 13.0-17.0 [facility] Comment on above: Order Comment: Speci men Type: BLOOD SPECIMENOrdering Facility: [facility] Address: [address] [place] [address] Performed By: #### 5 8410-2 ####[facility] [id number] [place] [address] [place] MCH (RBC) [Entitic mass] 24.8 pg Low 26.0-34.0 [facility] Comment on above: Order Comment: Speci men Type: BLOOD SPECIMENOrdering Facility: [facility] Address: [address] [place] [address] Performed By: #### 5 8410-2 ####[facility] LABCLIA [id number] [place] [address] [place] MCHC (RBC) [Mass/Vol] 29.3 g/dL Low 30.5-36.0 [facility] Comment on above: Order Comment: Speci men Type: BLOOD SPECIMENOrdering Facility: [facility] Address: [address] [place] [address] Performed By: #### 5 8410-2 ####[facility] LABIA [id number] [place] [address] [place] MCV (RBC) [Entitic vol] 84.7 fL Normal 80.0-100.0 [facility] Comment on above: Order Comment: Speci men Type: BLOOD SPECIMENOrdering Facility: [facility] Address: [address] [place] [address] Performed By: #### 5 8410-2 ####[facility] LABIA [id number] [place] [address] [place] Nucleated RBC (Bld) [#/Vol] 10*3/uL Normal <0.01 [facility] Comment on above: Order Comment: Speci men Type: BLOOD SPECIMENOrdering Facility: [facility] Address: [address] [place] [address] Performed By: #### 5 8410-2 ####[facility] LABIA [id number] [place] [address] [place] Platelet mean volume (Bld) [Entitic vol] 10.1 fL Normal 9.0-12.7 [facility] Comment on above: Order Comment: Speci men Type: BLOOD SPECIMENOrdering Facility: [facility] Address: [address] [place] [address] Performed By: #### 5 8410-2 ####[facility] LABIA [id number] [place] [address] [place] Platelets (Bld) [#/Vol] 470 10*3/uL High 150-400 [facility] Comment on above: Order Comment: Speci men Type: BLOOD SPECIMENOrdering Facility: [facility] Address: [address] [place] [address] Performed By: #### 5 8410-2 ####[facility] LABCLIA [id number] [place] [address] [place] RBC (Bld) [#/Vol] 3.91 10*6/uL Low 4.20-6.00 [facility] Comment on above: Order Comment: Speci men Type: BLOOD SPECIMENOrdering Facility: [facility] Address: [address] [place] [address] Performed By: #### 5 8410-2 ####[facility] LABCLIA [id number] [place] [address] [place] WBC (Bld) [#/Vol] 8.55 10*3/uL Normal 3.70-11.00 [facility] Comment on above: Order Comment: Speci men Type: BLOOD SPECIMENOrdering Facility: [facility] Address: [address] [place] [address] Performed By: #### 5 8410-2 ####[facility] LABCLIA [id number] [place] [address] [place] Comprehensive metabolic 2000 panelon 10-20-2023 Albumin [Mass/Vol] 2.8 g/dL Low 3.9-4.9 [facility] Comment on above: Order Comment: Speci men Type: BLOOD SPECIMENOrdering Facility: [facility] Address: [address] [place] [address] Performed By: #### 2 4323-8 ####[facility] LABCLIA [id number] [place] [address] [place] ALP [Catalytic activity/Vol] 328 U/L High 38-113 [facility] Comment on above: Order Comment: Speci men Type: BLOOD SPECIMENOrdering Facility: [facility] Address: [address] [place] [id number] Performed By: #### 2 4323-8 ####[facility] LABCLIA [id number] [place] [address] [place] ALT [Catalytic activity/Vol] 45 U/L Normal 10-54 [facility] Comment on above: Order Comment: Speci men Type: BLOOD SPECIMENOrdering Facility: [facility] Address: [address] [place] [address] Performed By: #### 2 4323-8 ####[facility] LABCLIA [id number] [place] [address] [place] Anion gap [Moles/Vol] 8 mmol/L Low 9-18 [facility] Comment on above: Order Comment: Speci men Type: BLOOD SPECIMENOrdering Facility: [facility] Address: [address] [place] [address] Performed By: #### 2 4323-8 ####[facility] LABCLIA [id number] [place] [address] [place] AST [Catalytic activity/Vol] 16 U/L Normal 14-40 [facility] Comment on above: Order Comment: Speci men Type: BLOOD SPECIMENOrdering Facility: [facility] Address: [address] [place], [place] [address] Performed By: #### 2 4323-8 ####[facility] LABCLIA [id number] [place] [address] [place] Bilirubin [Mass/Vol] 0.2 mg/dL Normal 0.2-1.3 [facility] Comment on above: Order Comment: Speci men Type: BLOOD SPECIMENOrdering Facility: [facility] Address: [address] [place], [place] [address] Performed By: #### 2 4323-8 ####[facility] LABCLIA [id number] [place] [address] [place] Calcium [Mass/Vol] 10.0 mg/dL Normal 8.5-10.2 [facility] Comment on above: Order Comment: Speci men Type: BLOOD SPECIMENOrdering Facility: [facility] Address: [address] [place] [address] Performed By: #### 2 4323-8 ####[facility] LABCLIA [id number] [place] [address] [place] Chloride [Moles/Vol] 96 mmol/L Low 97-105 [facility] Comment on above: Order Comment: Speci men Type: BLOOD SPECIMENOrdering Facility: [facility] Address: [address] [place] [address] Performed By: #### 2 4323-8 ####[facility] LABCLIA [id number] [place] [address] [place] CO2 [Moles/Vol] 35 mmol/L High 22-30 [facility] Comment on above: Order Comment: Speci men Type: BLOOD SPECIMENOrdering Facility: [facility] Address: [address] [place] [address] Performed By: #### 2 4323-8 ####[facility] LABCLIA [id number] [place] [address] [place] Creatinine [Mass/Vol] 0.43 mg/dL Low 0.73-1.22 [facility] Comment on above: Order Comment: Speci men Type: BLOOD SPECIMENOrdering Facility: [facility] Address: [address] [place] [address] Performed By: #### 2 4323-8 ####[facility] LABCLIA [id number] [place] [address] [place] Creatinine and Glomerular filtration rate.predicted panel (S/P/Bld) 139 mL/min/1.73m??? Normal >=60 [facility] Comment on above: Order Comment: Speci men Type: BLOOD SPECIMENOrdering Facility: [facility] Address: [address] [place] [address] Result Comment: Rae mated Glomerular Filtration Rate [...] actual GFR. Performed By: #### 2 4323-8 ####[facility] LABIA [id number] [place] [address] [place] Glucose [Mass/Vol] 110 mg/dL High 74-99 [facility] Comment on above: Order Comment: Darwin schwarz Type: BLOOD SPECIMENOrdering Facility: [facility] Address: [address] [place] [address] Result Comment: The [place] [employer] (ADA) provides guidance for cutoff [...] Standards of Medical Care in Diabetes 2016, [place] [employer]. Diabetes Care. 2016.39(Suppl 1). Performed By: #### 2 4323-8 ####[facility] LABIA [id number] [place] [address] [place] Potassium [Moles/Vol] 4.2 mmol/L Normal 3.7-5.1 [facility] Comment on above: Order Comment: Darwin schwarz Type: BLOOD SPECIMENOrdering Facility: [facility] Address: [address] [place] [address] Performed By: #### 2 4323-8 ####[facility] LABCLIA [id number] [place] [address] [place] Protein [Mass/Vol] 6.2 g/dL Low 6.3-8.0 [facility] Comment on above: Order Comment: Speci men Type: BLOOD SPECIMENOrdering Facility: [facility] Address: [address] [place] [address] Performed By: #### 2 4323-8 ####[facility] LABIA [id number] [place] [address] [place] Sodium [Moles/Vol] 139 mmol/L Normal 136-144 [facility] Comment on above: Order Comment: Speci men Type: BLOOD SPECIMENOrdering Facility: [facility] Address: [address] [place] [address] Performed By: #### 2 4323-8 ####[facility] LABIA [id number] [place] [address] [place] Urea nitrogen [Mass/Vol] 8 mg/dL Low 9-24 [facility] Comment on above: Order Comment: Speci men Type: BLOOD SPECIMENOrdering Facility: [facility] Address: [address] [place] [address] Performed By: #### 2 4323-8 ####[facility] LABIA [id number] [place] [address] [place] PTT, ANTICOAGULANT THERAPYon 10-20-2023 aPTT Coag (PPP) [Time] 34.6 s High 23.0-32.4 [facility] Comment on above: Order Comment: Speci men Type: BLOOD SPECIMENOrdering Facility: [facility] Address: [address] [place] [address] Performed By: #### P TTAC ####[facility] LABIA [id number] [place] [address] [place] CBC panel Auto (Bld)on 10-19 Erythrocyte distribution width (RBC) [Ratio] 18.5 % High 11.5-15.0 [facility] Comment on above: Order Comment: Speci men Type: BLOOD SPECIMENOrdering Facility: [facility] Address: [address] [place] [address] Performed By: #### 5 8410-2 ####[facility] LABIA [id number] [place] [address] [place] Hematocrit (Bld) [Volume fraction] 35.4 % Low 39.0-51.0 [facility] Comment on above: Order Comment: Speci men Type: BLOOD SPECIMENOrdering Facility: [facility] Address: [address] [place] [address] Performed By: #### 5 8410-2 ####[facility] LABIA [id number] [place] [address] [place] Hemoglobin (Bld) [Mass/Vol] 10.5 g/dL Low 13.0-17.0 [facility] Comment on above: Order Comment: Speci men Type: BLOOD SPECIMENOrdering Facility: [facility] Address: [address] [place] [address] Performed By: #### 5 8410-2 ####[facility] LABIA [id number] [place] [address] [place] MCH (RBC) [Entitic mass] 24.9 pg Low 26.0-34.0 [facility] Comment on above: Order Comment: Speci men Type: BLOOD SPECIMENOrdering Facility: [facility] Address: [address] [place] [address] Performed By: #### 5 8410-2 ####[facility] LABIA [id number] [place] [address] [place] MCHC (RBC) [Mass/Vol] 29.7 g/dL Low 30.5-36.0 [facility] Comment on above: Order Comment: Speci men Type: BLOOD SPECIMENOrdering Facility: [facility] Address: [address] [place] [address] Performed By: #### 5 8410-2 ####[facility] LABCLIA [id number] [place] [address] [place] MCV (RBC) [Entitic vol] 83.9 fL Normal 80.0-100.0 [facility] Comment on above: Order Comment: Speci men Type: BLOOD SPECIMENOrdering Facility: [facility] Address: [address] [place] [address] Performed By: #### 5 8410-2 ####[facility] LABCLIA [id number] [place] [address] [place] Nucleated RBC (Bld) [#/Vol] 10*3/uL Normal <0.01 [facility] Comment on above: Order Comment: Speci men Type: BLOOD SPECIMENOrdering Facility: [facility] Address: [address] [place] [address] Performed By: #### 5 8410-2 ####[facility] LABCLIA [id number] [place] [address] [place] Platelet mean volume (Bld) [Entitic vol] 10.2 fL Normal 9.0-12.7 [facility] Comment on above: Order Comment: Speci men Type: BLOOD SPECIMENOrdering Facility: [facility] Address: [address] [place] [address] Performed By: #### 5 8410-2 ####[facility] LABCLIA [id number] [place] [address] [place] Platelets (Bld) [#/Vol] 508 10*3/uL High 150-400 [facility] Comment on above: Order Comment: Speci men Type: BLOOD SPECIMENOrdering Facility: [facility] Address: [address] [place] [address] Performed By: #### 5 8410-2 ####[facility] LABCLIA [id number] [address] [address] [place] RBC (Bld) [#/Vol] 4.22 10*6/uL Normal 4.20-6.00 [facility] Comment on above: Order Comment: Speci men Type: BLOOD SPECIMENOrdering Facility: [facility] Address: [address] [place] [address] Performed By: #### 5 8410-2 ####[facility] LABIA [id number] [place] [address] [place] WBC (Bld) [#/Vol] 12.37 10*3/uL High 3.70-11.00 [facility] Comment on above: Order Comment: Speci men Type: BLOOD SPECIMENOrdering Facility: [facility] Address: [address] [place] [address] Performed By: #### 5 8410-2 ####[facility] [id number] [place] [address] [place] Comprehensive metabolic 2000 panelon 10-19-2023 Albumin [Mass/Vol] 2.8 g/dL Low 3.9-4.9 [facility] Comment on above: Order Comment: Speci men Type: BLOOD SPECIMENOrdering Facility: [facility] Address: [address] [place] [address] Performed By: #### 2 4323-8 ####[facility] LABIA [id number] [place] [address] [place] ALP [Catalytic activity/Vol] 422 U/L High 38-113 [facility] Comment on above: Order Comment: Speci men Type: BLOOD SPECIMENOrdering Facility: [facility] Address: [address] [place] [address] Performed By: #### 2 4323-8 ####[facility] LABIA [id number] [address] [address] [place] ALT [Catalytic activity/Vol] 67 U/L High 10-54 [facility] Comment on above: Order Comment: Speci men Type: BLOOD SPECIMENOrdering Facility: [facility] Address: [address] [place] [id number] Performed By: #### 2 4323-8 ####[facility] LABCLIA [id number] [place] [address] [place] Anion gap [Moles/Vol] 8 mmol/L Low 9-18 [facility] Comment on above: Order Comment: Speci men Type: BLOOD SPECIMENOrdering Facility: [facility] Address: [address] [place] [address] Performed By: #### 2 4323-8 ####[facility] LABCLIA [id number] [place] [address] [place] AST [Catalytic activity/Vol] 23 U/L Normal 14-40 [facility] Comment on above: Order Comment: Speci men Type: BLOOD SPECIMENOrdering Facility: [facility] Address: [address] [place] [address] Performed By: #### 2 4323-8 ####[facility] LABCLIA [id number] [place] [address] [place] Bilirubin [Mass/Vol] mg/dL Low 0.2-1.3 [facility] Comment on above: Order Comment: Speci men Type: BLOOD SPECIMENOrdering Facility: [facility] Address: [address] [place] [address] Performed By: #### 2 4323-8 ####[facility] LABCLIA [id number] [place] [address] [place] Calcium [Mass/Vol] 9.5 mg/dL Normal 8.5-10.2 [facility] Comment on above: Order Comment: Speci men Type: BLOOD SPECIMENOrdering Facility: [facility] Address: [address] [place] [address] Performed By: #### 2 4323-8 ####[facility] LABCLIA [id number] [place] [address] [place] Chloride [Moles/Vol] 97 mmol/L Normal 97-105 [facility] Comment on above: Order Comment: Speci men Type: BLOOD SPECIMENOrdering Facility: [facility] Address: [address] [place] [address] Performed By: #### 2 4323-8 ####[facility] LABCLIA [id number] [place] [address] [place] CO2 [Moles/Vol] 34 mmol/L High 22-30 [facility] Comment on above: Order Comment: Speci men Type: BLOOD SPECIMENOrdering Facility: [facility] Address: [address] [place] [address] Performed By: #### 2 4323-8 ####[facility] LABCLIA [id number] [place] [address] [place] Creatinine [Mass/Vol] 0.46 mg/dL Low 0.73-1.22 [facility] Comment on above: Order Comment: Speci men Type: BLOOD SPECIMENOrdering Facility: [facility] Address: [address] [place] [address] Performed By: #### 2 4323-8 ####[facility] LABIA [id number] [place] [address] [place] Creatinine and Glomerular filtration rate.predicted panel (S/P/Bld) 136 mL/min/1.73m??? Normal >=60 [facility] Comment on above: Order Comment: Speci men Type: BLOOD SPECIMENOrdering Facility: [facility] Address: [address] [place] [address] Result Comment: Rae mated Glomerular Filtration Rate [...] actual GFR. Performed By: #### 2 4323-8 ####[facility] LABCLIA [id number] [place] [address] [place] Glucose [Mass/Vol] 121 mg/dL High 74-99 [facility] Comment on above: Order Comment: Speci men Type: BLOOD SPECIMENOrdering Facility: [facility] Address: [address] [place] [address] Result Comment: The [place] [employer] (ADA) provides guidance for cutoff [...] Standards of Medical Care in Diabetes 2016, [place] [employer]. Diabetes Care. 2016.39(Suppl 1). Performed By: #### 2 4323-8 ####[facility] LABCLIA [id number] [place] [id number] [place] Potassium [Moles/Vol] 3.7 mmol/L Normal 3.7-5.1 [facility] Comment on above: Order Comment: Speci men Type: BLOOD SPECIMENOrdering Facility: [facility] Address: [address] [place] [address] Performed By: #### 2 4323-8 ####[facility] LABCLIA [id number] [address] [address] [place] Protein [Mass/Vol] 6.0 g/dL Low 6.3-8.0 [facility] Comment on above: Order Comment: Speci men Type: BLOOD SPECIMENOrdering Facility: [facility] Address: [address] [place] [address] Performed By: #### 2 4323-8 ####[facility] LABCLIA [id number] [place] [address] [place] Sodium [Moles/Vol] 139 mmol/L Normal 136-144 [facility] Comment on above: Order Comment: Speci men Type: BLOOD SPECIMENOrdering Facility: [facility] Address: [address] [place] [address] Performed By: #### 2 4323-8 ####[facility] LABCLIA [id number] [place] [address] [place] Urea nitrogen [Mass/Vol] 6 mg/dL Low 9-24 [facility] Comment on above: Order Comment: Speci men Type: BLOOD SPECIMENOrdering Facility: [facility] Address: [address] [place] [address] Performed By: #### 2 4323-8 ####[facility] LABCLIA [id number] [place] [address] [place] TYPE + SCREENon 10-19-2023 ABO A Normal [facility] Comment on above: Order Comment: Speci men Type: BLOOD SPECIMENOrdering Facility: [facility] Address: [address] [place] [address] Performed By: #### T SCR ####[facility] BLOOD BANKCLIA [id number] [place] [address] [place] HISTORICAL AB SCR STATUS Negative Normal [facility] Comment on above: Order Comment: Speci men Type: BLOOD SPECIMENOrdering Facility: [facility] Address: [address] [place] [address] Performed By: #### T SCR ####[facility] BLOOD BANKCLIA [id number] [place] [id number] [place] Rh Nom (Bld) Positive Normal [facility] Comment on above: Order Comment: Speci men Type: BLOOD SPECIMENOrdering Facility: [facility] Address: [address] [place] [address] Performed By: #### T SCR ####[facility] [id number] [place] [id number] [place] [facility] TYPE AND SCREEN EXPIRATION 10/21/2023 23:59 Normal [facility] Comment on above: Order Comment: Speci men Type: BLOOD SPECIMENOrdering Facility: [facility] Address: [address] [place] [address] Performed By: #### T SCR ####[facility] [id number] [place] [address] [place] aPTT PPPon 10-19-2023 aPTT Coag (PPP) [Time] 110.7 s High 23.0-32.4 [facility] Comment on above: Order Comment: Speci men Type: BLOOD SPECIMENOrdering Facility: [facility] Address: [address] [place] [address] Performed By: #### 1 4979-9 ####[facility] [id number] [place] [address] [place] [facility] aPTT Coag (PPP) [Time] 60.6 s High 23.0-32.4 [facility] Comment on above: Order Comment: Speci men Type: BLOOD SPECIMENOrdering Facility: [facility] Address: [address] [place] [address] Performed By: #### 1 4979-9 ####[facility] [id number] [place] [address] [place] CBC panel Auto (Bld)on 10-18 Erythrocyte distribution width (RBC) [Ratio] 18.5 % High 11.5-15.0 [facility] Comment on above: Order Comment: Speci men Type: BLOOD SPECIMENOrdering Facility: [facility] Address: [address] [place] [address] Performed By: #### 5 8410-2 ####[facility] LABIA [id number] [place] [address] [place] Hematocrit (Bld) [Volume fraction] 33.6 % Low 39.0-51.0 [facility] Comment on above: Order Comment: Speci men Type: BLOOD SPECIMENOrdering Facility: [facility] Address: [address] [place] [address] Performed By: #### 5 8410-2 ####[facility] LABIA [id number] [place] [address] [place] Hemoglobin (Bld) [Mass/Vol] 10.1 g/dL Low 13.0-17.0 [facility] Comment on above: Order Comment: Speci men Type: BLOOD SPECIMENOrdering Facility: [facility] Address: [address] [place] [address] Performed By: #### 5 8410-2 ####[facility] LABIA [id number] [place] [address] [place] MCH (RBC) [Entitic mass] 25.3 pg Low 26.0-34.0 [facility] Comment on above: Order Comment: Speci men Type: BLOOD SPECIMENOrdering Facility: [facility] Address: [address] [place] [address] Performed By: #### 5 8410-2 ####[facility] LABIA [id number] [place] [address] [place] MCHC (RBC) [Mass/Vol] 30.1 g/dL Low 30.5-36.0 [facility] Comment on above: Order Comment: Speci men Type: BLOOD SPECIMENOrdering Facility: [facility] Address: [address] [place] [address] Performed By: #### 5 8410-2 ####[facility] LABIA [id number] [place] [address] [place] MCV (RBC) [Entitic vol] 84.2 fL Normal 80.0-100.0 [facility] Comment on above: Order Comment: Speci men Type: BLOOD SPECIMENOrdering Facility: [facility] Address: [address] [place] [address] Performed By: #### 5 8410-2 ####[facility] LABCLIA [id number] [place] [address] [place] Nucleated RBC (Bld) [#/Vol] 10*3/uL Normal <0.01 [facility] Comment on above: Order Comment: Speci men Type: BLOOD SPECIMENOrdering Facility: [facility] Address: [address] [place] [address] Performed By: #### 5 8410-2 ####[facility] LABCLIA [id number] [place] [address] [place] Platelet mean volume (Bld) [Entitic vol] 10.7 fL Normal 9.0-12.7 [facility] Comment on above: Order Comment: Speci men Type: BLOOD SPECIMENOrdering Facility: [facility] Address: [address] [place] [address] Performed By: #### 5 8410-2 ####[facility] LABIA [id number] [place] [address] [place] Platelets (Bld) [#/Vol] 460 10*3/uL High 150-400 [facility] Comment on above: Order Comment: Speci men Type: BLOOD SPECIMENOrdering Facility: [facility] Address: [address] [place] [address] Performed By: #### 5 8410-2 ####[facility] LABCLIA [id number] [place] [address] [place] RBC (Bld) [#/Vol] 3.99 10*6/uL Low 4.20-6.00 [facility] Comment on above: Order Comment: Speci men Type: BLOOD SPECIMENOrdering Facility: [facility] Address: [address] [place] [address] Performed By: #### 5 8410-2 ####[facility] LABCLIA [id number] [address] [address] [place] WBC (Bld) [#/Vol] 9.57 10*3/uL Normal 3.70-11.00 [facility] Comment on above: Order Comment: Speci men Type: BLOOD SPECIMENOrdering Facility: [facility] Address: [address] [place] [address] Performed By: #### 5 8410-2 ####[facility] LABCLIA [id number] [place] [address] [place] CONSULT PROGon 10-18-2023 CONSULT PROG Normal [facility] CONSULT PROG Normal [facility] CONSULT PROG Normal [facility] Comprehensive metabolic 2000 panelon 10-18-2023 Albumin [Mass/Vol] 2.5 g/dL Low 3.9-4.9 [facility] Comment on above: Order Comment: Speci men Type: BLOOD SPECIMENOrdering Facility: [facility] Address: [address] [place] [address] Performed By: #### 2 4323-8 ####[facility] LABCLIA [id number] [place] [address] [place] ALP [Catalytic activity/Vol] 480 U/L High 38-113 [facility] Comment on above: Order Comment: Speci men Type: BLOOD SPECIMENOrdering Facility: [facility] Address: [address] [place] [address] Performed By: #### 2 4323-8 ####[facility] LABCLIA [id number] [place] [id number] [place] ALT [Catalytic activity/Vol] 87 U/L High 10-54 [facility] Comment on above: Order Comment: Speci men Type: BLOOD SPECIMENOrdering Facility: [facility] Address: [address] [place], [place] [address] Performed By: #### 2 4323-8 ####[facility] LABCLIA [id number] [place] [address] [place] Anion gap [Moles/Vol] 10 mmol/L Normal 9-18 [facility] Comment on above: Order Comment: Speci men Type: BLOOD SPECIMENOrdering Facility: [facility] Address: [address] [place] [address] Performed By: #### 2 4323-8 ####[facility] LABCLIA [id number] [place] [address] [place] AST [Catalytic activity/Vol] 28 U/L Normal 14-40 [facility] Comment on above: Order Comment: Speci men Type: BLOOD SPECIMENOrdering Facility: [facility] Address: [address] [place] [address] Performed By: #### 2 4323-8 ####[facility] LABCLIA [id number] [place] [address] [place] Bilirubin [Mass/Vol] 0.2 mg/dL Normal 0.2-1.3 [facility] Comment on above: Order Comment: Speci men Type: BLOOD SPECIMENOrdering Facility: [facility] Address: [address] [place], [place] [address] Performed By: #### 2 4323-8 ####[facility] LABCLIA [id number] [place] [address] [place] Calcium [Mass/Vol] 9.5 mg/dL Normal 8.5-10.2 [facility] Comment on above: Order Comment: Speci men Type: BLOOD SPECIMENOrdering Facility: [facility] Address: [address] [place], [place] [address] Performed By: #### 2 4323-8 ####[facility] LABCLIA [id number] [place] [address] [place] Chloride [Moles/Vol] 98 mmol/L Normal 97-105 [facility] Comment on above: Order Comment: Speci men Type: BLOOD SPECIMENOrdering Facility: [facility] Address: [address] [place] [address] Performed By: #### 2 4323-8 ####[facility] LABCLIA [id number] [place] [address] [place] CO2 [Moles/Vol] 30 mmol/L Normal 22-30 [facility] Comment on above: Order Comment: Speci men Type: BLOOD SPECIMENOrdering Facility: [facility] Address: [address] [place] [address] Performed By: #### 2 4323-8 ####[facility] LABCLIA [id number] [place] [address] [place] Creatinine [Mass/Vol] 0.45 mg/dL Low 0.73-1.22 [facility] Comment on above: Order Comment: Speci men Type: BLOOD SPECIMENOrdering Facility: [facility] Address: [address] [place] [address] Performed By: #### 2 4323-8 ####[facility] LABIA [id number] [place] [address] [place] Creatinine and Glomerular filtration rate.predicted panel (S/P/Bld) 137 mL/min/1.73m??? Normal >=60 [facility] Comment on above: Order Comment: Speci men Type: BLOOD SPECIMENOrdering Facility: [facility] Address: [address] [place] [address] Result Comment: Rae mated Glomerular Filtration Rate [...] actual GFR. Performed By: #### 2 4323-8 ####[facility] LABIA [id number] [place] [address] [place] Glucose [Mass/Vol] 133 mg/dL High 74-99 [facility] Comment on above: Order Comment: Speci men Type: BLOOD SPECIMENOrdering Facility: [facility] Address: [address] [place] [address] Result Comment: The [place] [employer] (ADA) provides guidance for cutoff [...] Standards of Medical Care in Diabetes 2016, [place] [employer]. Diabetes Care. 2016.39(Suppl 1). Performed By: #### 2 4323-8 ####[facility] LABIA [id number] [place] [address] [place] Potassium [Moles/Vol] 3.8 mmol/L Normal 3.7-5.1 [facility] Comment on above: Order Comment: Speci men Type: BLOOD SPECIMENOrdering Facility: [facility] Address: [address] [place] [address] Performed By: #### 2 4323-8 ####[facility] LABIA [id number] [place] [address] [place] Protein [Mass/Vol] 5.6 g/dL Low 6.3-8.0 [facility] Comment on above: Order Comment: Speci men Type: BLOOD SPECIMENOrdering Facility: [facility] Address: [address] [place] [address] Performed By: #### 2 4323-8 ####[facility] LABCLIA [id number] [address] [address] [place] Sodium [Moles/Vol] 138 mmol/L Normal 136-144 [facility] Comment on above: Order Comment: Speci men Type: BLOOD SPECIMENOrdering Facility: [facility] Address: [address] [place] [address] Performed By: #### 2 4323-8 ####[facility] LABCLIA [id number] [place] [address] [place] Urea nitrogen [Mass/Vol] 6 mg/dL Low 9-24 [facility] Comment on above: Order Comment: Speci men Type: BLOOD SPECIMENOrdering Facility: [facility] Address: [address] [place] [address] Performed By: #### 2 4323-8 ####[facility] LABCLIA [id number] [place] [address] [place] XR CHEST 1V FRONTAL PORTon 0 10-18-2023 XR CHEST 1V FRONTAL PORT Normal [facility] aPTT PPPon 10-18-2023 aPTT Coag (PPP) [Time] 63.3 s High 23.0-32.4 [facility] Comment on above: Order Comment: Speci men Type: BLOOD SPECIMENOrdering Facility: [facility] Address: [address] [place] [address] Performed By: #### 1 4979-9 ####[facility] LABCLIA [id number] [place] [id number] [place] aPTT Coag (PPP) [Time] 73.9 s High 23.0-32.4 [facility] Comment on above: Order Comment: Speci men Type: BLOOD SPECIMENOrdering Facility: [facility] Address: [address] [place] [address] Performed By: #### 1 4979-9 ####[facility] LABCLIA [id number] [place] [address] [place] Bacteria Fld Culton 10-17-19 24 Bacteria identified Cx Nom (Body fld) CULTURE, BODY FLD: No growth GRAM STAIN: No organisms seen Moderate Polymorphonuclear leukocytes Gram stain from primary specimen Normal [facility] Comment on above: Performed By: #### 6 11-4, 03968-4 ####[facility] LABIA [id number] [place] [address] [place] CASE MANAGEMon 10-17-2023 CASE MANAGEM Normal [facility] CBC panel Auto (Bld)on 10-17 Erythrocyte distribution width (RBC) [Ratio] 18.5 % High 11.5-15.0 [facility] Comment on above: Order Comment: Speci men Type: BLOOD SPECIMENOrdering Facility: [facility] Address: [address] [place] [address] Performed By: #### 5 8410-2 ####[facility] LABIA [id number] [place] [address] [place] Hematocrit (Bld) [Volume fraction] 33.1 % Low 39.0-51.0 [facility] Comment on above: Order Comment: Speci men Type: BLOOD SPECIMENOrdering Facility: [facility] Address: [address] [place] [address] Performed By: #### 5 8410-2 ####[facility] LABIA [id number] [place] [address] [place] Hemoglobin (Bld) [Mass/Vol] 9.8 g/dL Low 13.0-17.0 [facility] Comment on above: Order Comment: Speci men Type: BLOOD SPECIMENOrdering Facility: [facility] Address: [address] [place] [address] Performed By: #### 5 8410-2 ####[facility] LABIA [id number] [place] [address] [place] MCH (RBC) [Entitic mass] 24.9 pg Low 26.0-34.0 [facility] Comment on above: Order Comment: Speci men Type: BLOOD SPECIMENOrdering Facility: [facility] Address: [address] [place] [address] Performed By: #### 5 8410-2 ####[facility] LABCLIA [id number] [place] [address] [place] MCHC (RBC) [Mass/Vol] 29.6 g/dL Low 30.5-36.0 [facility] Comment on above: Order Comment: Speci men Type: BLOOD SPECIMENOrdering Facility: [facility] Address: [address] [place] [address] Performed By: #### 5 8410-2 ####[facility] LABCLIA [id number] [place] [address] [place] MCV (RBC) [Entitic vol] 84.2 fL Normal 80.0-100.0 [facility] Comment on above: Order Comment: Speci men Type: BLOOD SPECIMENOrdering Facility: [facility] Address: [address] [place] [address] Performed By: #### 5 8410-2 ####[facility] LABIA [id number] [place] [address] [place] Nucleated RBC (Bld) [#/Vol] 10*3/uL Normal <0.01 [facility] Comment on above: Order Comment: Speci men Type: BLOOD SPECIMENOrdering Facility: [facility] Address: [address] [place] [address] Performed By: #### 5 8410-2 ####[facility] LABCLIA [id number] [place] [address] [place] Platelet mean volume (Bld) [Entitic vol] 11.0 fL Normal 9.0-12.7 [facility] Comment on above: Order Comment: Speci men Type: BLOOD SPECIMENOrdering Facility: [facility] Address: [address] [place] [address] Performed By: #### 5 8410-2 ####[facility] LABIA [id number] [place] [address] [place] Platelets (Bld) [#/Vol] 476 10*3/uL High 150-400 [facility] Comment on above: Order Comment: Speci men Type: BLOOD SPECIMENOrdering Facility: [facility] Address: [address] [place] [address] Performed By: #### 5 8410-2 ####[facility] LABIA [id number] [place] [address] [place] RBC (Bld) [#/Vol] 3.93 10*6/uL Low 4.20-6.00 [facility] Comment on above: Order Comment: Speci men Type: BLOOD SPECIMENOrdering Facility: [facility] Address: [address] [place] [address] Performed By: #### 5 8410-2 ####[facility] LABIA [id number] [place] [address] [place] WBC (Bld) [#/Vol] 10.02 10*3/uL Normal 3.70-11.00 [facility] Comment on above: Order Comment: Speci men Type: BLOOD SPECIMENOrdering Facility: [facility] Address: [address] [place] [address] Performed By: #### 5 8410-2 ####[facility] LABIA [id number] [place] [address] [place] CONSULT PROGon 10-17-2023 CONSULT PROG Normal [facility] CONSULT PROG Normal [facility] Comprehensive metabolic 2000 panelon 10-17-2023 Albumin [Mass/Vol] 2.6 g/dL Low 3.9-4.9 [facility] Comment on above: Order Comment: Speci men Type: BLOOD SPECIMENOrdering Facility: [facility] Address: [address] [place] [id number] Performed By: #### 2 4323-8 ####[facility] LABCLIA [id number] [place] [id number] [place] ALP [Catalytic activity/Vol] 628 U/L High 38-113 [facility] Comment on above: Order Comment: Speci men Type: BLOOD SPECIMENOrdering Facility: [facility] Address: [address] [place], [place] [address] Performed By: #### 2 4323-8 ####[facility] LABCLIA [id number] [place] [address] [place] ALT [Catalytic activity/Vol] 131 U/L High 10-54 [facility] Comment on above: Order Comment: Speci men Type: BLOOD SPECIMENOrdering Facility: [facility] Address: [address] [place] [address] Performed By: #### 2 4323-8 ####[facility] LABCLIA [id number] [place] [address] [place] Anion gap [Moles/Vol] 9 mmol/L Normal 9-18 [facility] Comment on above: Order Comment: Speci men Type: BLOOD SPECIMENOrdering Facility: [facility] Address: [address] [place], [place] [address] Performed By: #### 2 4323-8 ####[facility] LABCLIA [id number] [place] [id number] [place] AST [Catalytic activity/Vol] 40 U/L Normal 14-40 [facility] Comment on above: Order Comment: Speci men Type: BLOOD SPECIMENOrdering Facility: [facility] Address: [address] [place], [place] [address] Performed By: #### 2 4323-8 ####[facility] LABCLIA [id number] [place] [address] [place] Bilirubin [Mass/Vol] 0.2 mg/dL Normal 0.2-1.3 [facility] Comment on above: Order Comment: Speci men Type: BLOOD SPECIMENOrdering Facility: [facility] Address: [address] [place] [address] Performed By: #### 2 4323-8 ####[facility] LABCLIA [id number] [place] [address] [place] Calcium [Mass/Vol] 9.1 mg/dL Normal 8.5-10.2 [facility] Comment on above: Order Comment: Speci men Type: BLOOD SPECIMENOrdering Facility: [facility] Address: [address] [place] [address] Performed By: #### 2 4323-8 ####[facility] LABCLIA [id number] [place] [address] [place] Chloride [Moles/Vol] 98 mmol/L Normal 97-105 [facility] Comment on above: Order Comment: Speci men Type: BLOOD SPECIMENOrdering Facility: [facility] Address: [address] [place] [address] Performed By: #### 2 4323-8 ####[facility] LABCLIA [id number] [place] [address] [place] CO2 [Moles/Vol] 30 mmol/L Normal 22-30 [facility] Comment on above: Order Comment: Speci men Type: BLOOD SPECIMENOrdering Facility: [facility] Address: [address] [place], [place] [address] Performed By: #### 2 4323-8 ####[facility] LABCLIA [id number] [place] [address] [place] Creatinine [Mass/Vol] 0.41 mg/dL Low 0.73-1.22 [facility] Comment on above: Order Comment: Speci men Type: BLOOD SPECIMENOrdering Facility: [facility] Address: [address] [place] [address] Performed By: #### 2 4323-8 ####[facility] LABIA [id number] [place] [address] [place] Creatinine and Glomerular filtration rate.predicted panel (S/P/Bld) 141 mL/min/1.73m??? Normal >=60 [facility] Comment on above: Order Comment: Darwin schwarz Type: BLOOD SPECIMENOrdering Facility: [facility] Address: [address] [place] [address] Result Comment: Rae mated Glomerular Filtration Rate [...] actual GFR. Performed By: #### 2 4323-8 ####[facility] LABCLIA [id number] [place] [address] [place] Glucose [Mass/Vol] 133 mg/dL High 74-99 [facility] Comment on above: Order Comment: Darwin schwarz Type: BLOOD SPECIMENOrdering Facility: [facility] Address: [address] [place] [address] Result Comment: The [place] Diabetes [employer] (ADA) provides guidance for cutoff [...] Standards of Medical Care in Diabetes 2016, [place] [employer]. Diabetes Care. 2016.39(Suppl 1). Performed By: #### 2 4323-8 ####[facility] LABCLIA [id number] [place] [address] [place] Potassium [Moles/Vol] 3.6 mmol/L Low 3.7-5.1 [facility] Comment on above: Order Comment: Speci men Type: BLOOD SPECIMENOrdering Facility: [facility] Address: [address] [place] [address] Performed By: #### 2 4323-8 ####[facility] LABCLIA [id number] [place] [address] [place] Protein [Mass/Vol] 5.5 g/dL Low 6.3-8.0 [facility] Comment on above: Order Comment: Speci men Type: BLOOD SPECIMENOrdering Facility: [facility] Address: [address] [place] [address] Performed By: #### 2 4323-8 ####[facility] LABIA [id number] [place] [address] [place] Sodium [Moles/Vol] 137 mmol/L Normal 136-144 [facility] Comment on above: Order Comment: Speci men Type: BLOOD SPECIMENOrdering Facility: [facility] Address: [address] [place] [address] Performed By: #### 2 4323-8 ####[facility] LABIA [id number] [place] [address] [place] Urea nitrogen [Mass/Vol] 6 mg/dL Low 9-24 [facility] Comment on above: Order Comment: Speci men Type: BLOOD SPECIMENOrdering Facility: [facility] Address: [address] [place] [address] Performed By: #### 2 4323-8 ####[facility] LABIA [id number] [place] [address] [place] Microorganism Spec Culton Microorganism identified Cx Nom (Unsp spec) CULTURE, FUNGAL: No Fungus isolated after 28 days FUNGAL SMEAR: No fungus seen Normal [facility] Comment on above: Performed By: #### 6 11-4, 38733-4 ####[facility] LABCLIA [id number] [place] [address] [place] Microorganism identified Cx Nom (Unsp spec) CULTURE, AFB: No Acid Fast Bacilli isolated after 42 days AFB STAIN: No acid fast bacilli seen by flurochrome stain Normal [facility] Comment on above: Performed By: #### 6 11-4, 81902-0 ####[facility] LABCLIA [id number] [place] [address] [place] PTT, ANTICOAGULANT THERAPYon 10-17-2023 aPTT Coag (PPP) [Time] 32.6 s High 23.0-32.4 [facility] Comment on above: Order Comment: Speci men Type: BLOOD SPECIMENOrdering Facility: [facility] Address: [address] [place] [address] Performed By: #### P TTAC ####[facility] LABIA [id number] [place] [address] [place] SYNOVIAL FL,CRYSTAL ID/STAFF REVon 10-17-2023 CRYSTAL PRELIM, SF PRELIMINARY REPORT N o diagnostic crystals seen. SEE FINAL SF PATH REVIEW Normal [facility] Comment on above: Order Comment: Speci men Type: BODY FLUID SPECIMENOrdering Facility: [facility] Address: [address] [place] [address] Performed By: #### R XIAO, SFCRID, [id number] ####[facility] LABIA [id number] [place] [address] [place] CRYSTAL REVIEW Reviewed by Oscar Mccarthy MD Normal [facility] Comment on above: Order Comment: Speci men Type: BODY FLUID SPECIMENOrdering Facility: [facility] Address: [address] [place] [address] Performed By: #### R XIAO, SFCRID, [id number] ####[facility] LABCLIA [id number] [facility] [place] [address] [place] Crystals LM Nom (Syn fld) None seen Normal None seen [facility] Comment on above: Order Comment: Speci men Type: BODY FLUID SPECIMENOrdering Facility: [facility] Address: [address] [place] [address] Performed By: #### R JORGE ALBERTO HAGEN, [id number] ####[facility] LABCLIA [id number] [place] [address] [place] SYNOVIAL FLUID MANUAL DIFFon 10-17-2023 DIF TTL, SYNOVIAL FLUID 100 cells counted Normal [facility] Comment on above: Order Comment: Speci men Type: BODY FLUID SPECIMENOrdering Facility: [facility] Address: [address] [place] [address] Performed By: #### JORGE ALBERTO CLAIRE, [id number] ####[facility] LABCLIA [id number] [place] [address] [place] EOSIN %, SF 1 Normal [facility] Comment on above: Order Comment: Speci men Type: BODY FLUID SPECIMENOrdering Facility: [facility] Address: [address] [place] [address] Performed By: #### JORGE ALBERTO CLAIRE, [id number] ####[facility] LABCLIA [id number] [place] [id number] [place] LYMPH%, SF 16 Normal [facility] Comment on above: Order Comment: Speci men Type: BODY FLUID SPECIMENOrdering Facility: [facility] Address: [address] [place] [address] Performed By: #### R JORGE ALBERTO HAGEN, [id number] ####[facility] LABCLIA [id number] [place] [id number] [place] MONO%, SF 17 Normal [facility] Comment on above: Order Comment: Speci men Type: BODY FLUID SPECIMENOrdering Facility: [facility] Address: [facility] [place] [address] Performed By: #### JORGE ALBERTO CLAIRE, [id number] ####[facility] LABCLIA [id number] [facility] [address] [address] [place] NEUT% 63 High 0-<25 [facility] Comment on above: Order Comment: Speci men Type: BODY FLUID SPECIMENOrdering Facility: [facility] Address: [address] [place] [address] Performed By: #### JORGE ALBERTO CLAIRE, [id number] ####[facility] LABCLIA [id number] [place] [address] [place] SYNOVIAL C1% 3 Normal [facility] Comment on above: Order Comment: Speci men Type: BODY FLUID SPECIMENOrdering Facility: [facility] Address: [address] [place] [address] Performed By: #### DEEP CLAIRED, [id number] ####[facility] LABCLIA [id number] [facility] [place] [address] [place] SYNOVIAL FLUID, ROUTINEon Clarity (Unsp spec) Clear Normal Clear [facility] Comment on above: Order Comment: Speci men Type: BODY FLUID SPECIMENOrdering Facility: [facility] Address: [address] [place] [address] Performed By: #### DEEP CLAIRED, [id number] ####[facility] LABCLIA [id number] [place] [address] [place] Color (Syn fld) Yellow Normal Yellow [facility] Comment on above: Order Comment: Speci men Type: BODY FLUID SPECIMENOrdering Facility: [facility] Address: [address] [place] [address] Performed By: #### R JORGE ALBERTO HAGEN, [id number] ####[facility] LABCLIA [id number] [address] [address] [place] RBC Manual cnt (Syn fld) [#/Vol] <2000 Normal <2000 [facility] Comment on above: Order Comment: Speci men Type: BODY FLUID SPECIMENOrdering Facility: [facility] Address: [address] [place] [address] Performed By: #### JORGE ALBERTO CLAIRE, [id number] ####[facility] LABIA [id number] [place] [address] [place] Specimen source Nom (Unsp spec) HIP LEFT Normal [facility] Comment on above: Order Comment: Speci men Type: BODY FLUID SPECIMENOrdering Facility: [facility] Address: [address] [place] [address] Performed By: #### JORGE ALBERTO CLAIRE, [id number] ####[facility] LABCLIA [id number] [place] [address] [place] WBC Manual cnt (Syn fld) [#/Vol] 1661 /uL High 0-200 [facility] Comment on above: Order Comment: Speci men Type: BODY FLUID SPECIMENOrdering Facility: [facility] Address: [address] [place] [address] Performed By: #### JORGE ALBERTO CLAIRE, [id number] ####[facility] LABIA [id number] [place] [address] [place] XR HIP/ILIOPSOAS ASPIRATION LTon 10-17-2023 XR HIP/ILIOPSOAS ASPIRATION LT Normal [facility] aPTT PPPon 10-17-2023 aPTT Coag (PPP) [Time] 53.5 s High 23.0-32.4 [facility] Comment on above: Order Comment: Speci men Type: BLOOD SPECIMENOrdering Facility: [facility] Address: [address] [place] [address] Performed By: #### 1 4979-9 ####[facility] LABCLIA [id number] [place] [address] [place] aPTT Coag (PPP) [Time] 40.4 s High 23.0-32.4 [facility] Comment on above: Order Comment: Speci men Type: BLOOD SPECIMENOrdering Facility: [facility] Address: [address] [place] [address] Performed By: #### 1 4979-9 ####[facility] LABCLIA [id number] [place] [address] [place] CBC W Auto Differential pane l (Bld)on 10-16-2023 Basophils (Bld) [#/Vol] 0.07 10*3/uL Normal <0.11 [facility] Comment on above: Order Comment: Speci men Type: BLOOD SPECIMENOrdering Facility: [facility] Address: [address] [place] [address] Performed By: #### 4 537-7, 62892-4 ####[facility] LABCLIA [id number] [place] [address] [place] Basophils/100 WBC (Bld) 0.8 % Normal [facility] Comment on above: Order Comment: Speci men Type: BLOOD SPECIMENOrdering Facility: [facility] Address: [address] [place] [address] Performed By: #### 4 537-7, 03708-6 ####[facility] LABCLIA [id number] [place] [address] [place] Differential cell count method Nom (Bld) Auto Normal [facility] Comment on above: Order Comment: Speci men Type: BLOOD SPECIMENOrdering Facility: [facility] Address: [address] [place] [address] Performed By: #### 4 537-7, 73517-0 ####[facility] LABCLIA [id number] [place] [address] [place] Eosinophils (Bld) [#/Vol] 0.26 10*3/uL Normal <0.46 [facility] Comment on above: Order Comment: Speci men Type: BLOOD SPECIMENOrdering Facility: [facility] Address: [address] [place] [address] Performed By: #### 4 537-7, 70139-9 ####[facility] LABCLIA [id number] [place] [address] [place] Eosinophils/100 WBC (Bld) 3.0 % Normal [facility] Comment on above: Order Comment: Speci men Type: BLOOD SPECIMENOrdering Facility: [facility] [facility] Address: [address] [place] [address] Performed By: #### 4 537-7, 56889-3 ####[facility] LABCLIA [id number] [place] [address] [place] Erythrocyte distribution width (RBC) [Ratio] 18.2 % High 11.5-15.0 [facility] Comment on above: Order Comment: Speci men Type: BLOOD SPECIMENOrdering Facility: [facility] Address: [address] [place] [address] Performed By: #### 4 537-7, 62901-7 ####[facility] LABCLIA [id number] [place] [address] [place] Hematocrit (Bld) [Volume fraction] 32.3 % Low 39.0-51.0 [facility] Comment on above: Order Comment: Speci men Type: BLOOD SPECIMENOrdering Facility: [facility] Address: [address] [place] [address] Performed By: #### 4 537-7, 13495-4 ####[facility] LABCLIA [id number] [place] [address] [place] Hemoglobin (Bld) [Mass/Vol] 9.6 g/dL Low 13.0-17.0 [facility] Comment on above: Order Comment: Speci men Type: BLOOD SPECIMENOrdering Facility: [facility] Address: [address] [place] [address] Performed By: #### 4 537-7, 51183-7 ####[facility] LABCLIA [id number] [place] [address] [place] Immature granulocytes (Bld) [#/Vol] 0.07 10*3/uL Normal <0.10 [facility] Comment on above: Order Comment: Speci men Type: BLOOD SPECIMENOrdering Facility: [facility] Address: [address] [place] [address] Performed By: #### 4 537-7, 18959-9 ####[facility] LABCLIA [id number] [place] [address] [place] Immature granulocytes/100 WBC (Bld) 0.8 % Normal [facility] Comment on above: Order Comment: Speci men Type: BLOOD SPECIMENOrdering Facility: [facility] Address: [address] [place] [address] Performed By: #### 4 537-7, 78962-9 ####[facility] LABCLIA [id number] [place] [address] [place] Lymphocytes (Bld) [#/Vol] 2.35 10*3/uL Normal 1.00-4.00 [facility] Comment on above: Order Comment: Speci men Type: BLOOD SPECIMENOrdering Facility: [facility] Address: [address] [place] [address] Performed By: #### 4 537-7, 73176-3 ####[facility] LABCLIA [id number] [place] [address] [place] Lymphocytes/100 WBC (Bld) 27.5 % Normal [facility] Comment on above: Order Comment: Speci men Type: BLOOD SPECIMENOrdering Facility: [facility] Address: [address] [place] [address] Performed By: #### 4 537-7, 47949-1 ####[facility] LABIA [id number] [place] [address] [place] MCH (RBC) [Entitic mass] 24.9 pg Low 26.0-34.0 [facility] Comment on above: Order Comment: Speci men Type: BLOOD SPECIMENOrdering Facility: [facility] Address: [address] [place] [address] Performed By: #### 4 537-7, 13196-7 ####[facility] [id number] [place] [address] [place] MCHC (RBC) [Mass/Vol] 29.7 g/dL Low 30.5-36.0 [facility] Comment on above: Order Comment: Speci men Type: BLOOD SPECIMENOrdering Facility: [facility] Address: [address] [place] [address] Performed By: #### 4 537-7, 88200-6 ####[facility] [id number] [place] [address] [place] MCV (RBC) [Entitic vol] 83.9 fL Normal 80.0-100.0 [facility] Comment on above: Order Comment: Speci men Type: BLOOD SPECIMENOrdering Facility: [facility] Address: [address] [place] [address] Performed By: #### 4 537-7, 16430-7 ####[facility] [id number] [place] [address] [place] Monocytes (Bld) [#/Vol] 0.48 10*3/uL Normal <0.87 [facility] Comment on above: Order Comment: Speci men Type: BLOOD SPECIMENOrdering Facility: [facility] Address: [address] [place] [address] Performed By: #### 4 537-7, 43230-3 ####[facility] LABCLIA [id number] [place] [address] [place] Monocytes/100 WBC (Bld) 5.6 % Normal [facility] Comment on above: Order Comment: Speci men Type: BLOOD SPECIMENOrdering Facility: [facility] Address: [address] [place] [address] Performed By: #### 4 537-7, 69621-8 ####[facility] LABCLIA [id number] [place] [address] [place] Neutrophils (Bld) [#/Vol] 5.31 10*3/uL Normal 1.45-7.50 [facility] Comment on above: Order Comment: Speci men Type: BLOOD SPECIMENOrdering Facility: [facility] Address: [address] [place] [address] Performed By: #### 4 537-7, 34099-4 ####[facility] LABIA [id number] [place] [address] [place] Neutrophils/100 WBC (Bld) 62.3 % Normal [facility] Comment on above: Order Comment: Speci men Type: BLOOD SPECIMENOrdering Facility: [facility] Address: [address] [place] [address] Performed By: #### 4 537-7, 13792-2 ####[facility] LABCLIA [id number] [place] [address] [place] Nucleated RBC (Bld) [#/Vol] 10*3/uL Normal <0.01 [facility] Comment on above: Order Comment: Speci men Type: BLOOD SPECIMENOrdering Facility: [facility] Address: [address] [place] [address] Performed By: #### 4 537-7, 64818-3 ####[facility] LABIA [id number] [place] [address] [place] Nucleated RBC/100 WBC (Bld) [Ratio] 0.0 /100 WBC Normal [facility] Comment on above: Order Comment: Speci men Type: BLOOD SPECIMENOrdering Facility: [facility] Address: [address] [place] [address] Performed By: #### 4 537-7, 23993-0 ####[facility] LABIA [id number] [place] [address] [place] Platelet mean volume (Bld) [Entitic vol] 10.1 fL Normal 9.0-12.7 [facility] Comment on above: Order Comment: Speci men Type: BLOOD SPECIMENOrdering Facility: [facility] Address: [address] [place] [address] Performed By: #### 4 537-7, 66408-2 ####[facility] LABCLIA [id number] [place] [address] [place] Platelets (Bld) [#/Vol] 438 10*3/uL High 150-400 [facility] Comment on above: Order Comment: Speci men Type: BLOOD SPECIMENOrdering Facility: [facility] Address: [address] [place] [address] Performed By: #### 4 537-7, 83622-8 ####[facility] LABIA [id number] [place] [address] [place] RBC (Bld) [#/Vol] 3.85 10*6/uL Low 4.20-6.00 [facility] Comment on above: Order Comment: Speci men Type: BLOOD SPECIMENOrdering Facility: [facility] Address: [address] [place] [address] Performed By: #### 4 537-7, 39275-6 ####[facility] LABCLIA [id number] [place] [address] [place] WBC (Bld) [#/Vol] 8.54 10*3/uL Normal 3.70-11.00 [facility] Comment on above: Order Comment: Speci men Type: BLOOD SPECIMENOrdering Facility: [facility] Address: [address] [place] [address] Performed By: #### 4 537-7, 01534-3 ####[facility] LABCLIA [id number] [address] [place] CONSULTon 10-16-2023 CONSULT Normal [facility] CONSULT PROGon 10-16-2023 CONSULT PROG Normal [facility] CRP SerPl-mCncon 10-16-2023 CRP [Mass/Vol] 6.7 mg/dL High <0.9 [facility] Comment on above: Order Comment: Speci men Type: BLOOD SPECIMENOrdering Facility: [facility] Address: [address] [place] [address] Performed By: #### 1 988-5 ####[facility] LABCLIA [id number] [address] [place] CRP [Mass/Vol] 6.7 mg/dL High <0.9 [facility] Comment on above: Order Comment: Speci men Type: BLOOD SPECIMENOrdering Facility: [facility] Address: [address] [place] [address] Performed By: #### 2 4323-8, 1988-01 ####[facility] LABCLIA [id number] [place] [address] [place] Comprehensive metabolic 2000 panelon 10-16-2023 Albumin [Mass/Vol] 2.8 g/dL Low 3.9-4.9 [facility] Comment on above: Order Comment: Speci men Type: BLOOD SPECIMENOrdering Facility: [facility] Address: [address] [place] [address] Performed By: #### 2 4323-8, 1988-01 ####[facility] LABCLIA [id number] [place] [id number] [place] ALP [Catalytic activity/Vol] 772 U/L High 38-113 [facility] Comment on above: Order Comment: Speci men Type: BLOOD SPECIMENOrdering Facility: [facility] Address: [address] [place], [place] [address] Performed By: #### 2 4328, 1988-01 ####[facility] LABCLIA [id number] [place] [address] [place] ALT [Catalytic activity/Vol] 187 U/L High 10-54 [facility] Comment on above: Order Comment: Speci men Type: BLOOD SPECIMENOrdering Facility: [facility] Address: [address] [place] [address] Performed By: #### 2 4323-04, 1988-01 ####[facility] LABCLIA [id number] [place] [address] [place] Anion gap [Moles/Vol] 8 mmol/L Low 9-18 [facility] Comment on above: Order Comment: Speci men Type: BLOOD SPECIMENOrdering Facility: [facility] Address: [address] [place] [address] Performed By: #### 2 4323-04, 1988-01 ####[facility] LABCLIA [id number] [place] [address] [place] AST [Catalytic activity/Vol] 53 U/L High 14-40 [facility] Comment on above: Order Comment: Speci men Type: BLOOD SPECIMENOrdering Facility: [facility] Address: [address] [place], [place] [address] Performed By: #### 2 4328, 1988-01 ####[facility] LABCLIA [id number] [place] [address] [place] Bilirubin [Mass/Vol] 0.2 mg/dL Normal 0.2-1.3 [facility] Comment on above: Order Comment: Speci men Type: BLOOD SPECIMENOrdering Facility: [facility] Address: [address] [place] [address] Performed By: #### 2 4323-04, 1988-01 ####[facility] LABCLIA [id number] [address] [address] [place] Calcium [Mass/Vol] 9.5 mg/dL Normal 8.5-10.2 [facility] Comment on above: Order Comment: Speci men Type: BLOOD SPECIMENOrdering Facility: [facility] Address: [address] [place], [place] [address] Performed By: #### 2 4323-04, 1988-01 ####[facility] LABCLIA [id number] [place] [address] [place] Chloride [Moles/Vol] 100 mmol/L Normal 97-105 [facility] Comment on above: Order Comment: Speci men Type: BLOOD SPECIMENOrdering Facility: [facility] Address: [address] [place], [place] [address] Performed By: #### 2 4323-04, 1988-01 ####[facility] LABCLIA [id number] [place] [address] [place] CO2 [Moles/Vol] 31 mmol/L High 22-30 [facility] Comment on above: Order Comment: Speci men Type: BLOOD SPECIMENOrdering Facility: [facility] Address: [address] [place] [address] Performed By: #### 2 4323-04, 1988-01 ####[facility] LABCLIA [id number] [address] [address] [place] Creatinine [Mass/Vol] 0.42 mg/dL Low 0.73-1.22 [facility] Comment on above: Order Comment: Speci men Type: BLOOD SPECIMENOrdering Facility: [facility] Address: [address] [place] [address] Performed By: #### 2 4323-04, 1988-01 ####[facility] [id number] [place] [address] [place] Creatinine and Glomerular filtration rate.predicted panel (S/P/Bld) 140 mL/min/1.73m??? Normal >=60 [facility] Comment on above: Order Comment: Specdominic schwarz Type: BLOOD SPECIMENOrdering Facility: [facility] Address: [address] [place] [address] Result Comment: Rae mated Glomerular Filtration Rate [...] actual GFR. Performed By: #### 2 4323-8, 1988-01 ####[facility] [id number] [place] [address] [place] Glucose [Mass/Vol] 116 mg/dL High 74-99 [facility] Comment on above: Order Comment: Darwin schwarz Type: BLOOD SPECIMENOrdering Facility: [facility] Address: [address] [place] [address] Result Comment: The [place] [employer] (ADA) provides guidance for cutoff [...] Standards of Medical Care in Diabetes 2016, [place] [employer]. Diabetes Care. 2016.39(Suppl 1). Performed By: #### 2 4323-8, 1988-01 ####[facility] [id number] [place] [address] [place] Potassium [Moles/Vol] 4.3 mmol/L Normal 3.7-5.1 [facility] Comment on above: Order Comment: Speci men Type: BLOOD SPECIMENOrdering Facility: [facility] Address: [address] [place], [place] [address] Performed By: #### 2 4328, 1988-01 ####[facility] LABCLIA [id number] [place] [address] [place] Protein [Mass/Vol] 6.0 g/dL Low 6.3-8.0 [facility] Comment on above: Order Comment: Speci men Type: BLOOD SPECIMENOrdering Facility: [facility] Address: [address] [place] [address] Performed By: #### 2 4328, 1988-01 ####[facility] LABIA [id number] [place] [address] [place] Sodium [Moles/Vol] 139 mmol/L Normal 136-144 [facility] Comment on above: Order Comment: Speci men Type: BLOOD SPECIMENOrdering Facility: [facility] Address: [address] [place] [address] Performed By: #### 2 43211-14, 1988-01 ####[facility] LABIA [id number] [place] [address] [place] Urea nitrogen [Mass/Vol] 7 mg/dL Low 9-24 [facility] Comment on above: Order Comment: Speci men Type: BLOOD SPECIMENOrdering Facility: [facility] Address: [address] [place] [address] Performed By: #### 2 4328, 1988-01 ####[facility] LABCLIA [id number] [place] [id number] [place] ESR Westergren method (Bld) [Velocity]on 10-16-2023 ESR (Bld) [Velocity] 46 mm/h High 0-15 [facility] Comment on above: Order Comment: Speci men Type: BLOOD SPECIMENOrdering Facility: [facility] Address: [address] [place] [address] Performed By: #### 4 537-7 ####[facility] LABCLIA [id number] [place] [address] [place] ESR (Bld) [Velocity] 52 mm/h High 0-15 [facility] Comment on above: Order Comment: Speci men Type: BLOOD SPECIMENOrdering Facility: [facility] Address: [address] [place] [address] Performed By: #### 4 537-7, 98365-4 ####[facility] LABIA [id number] [place] [address] [place] NM HEPATOBILIARY WO RXon NM HEPATOBILIARY WO RX Normal [facility] NUTRITIONon 10-16-2023 NUTRITION Normal [facility] PTT, ANTICOAGULANT THERAPYon 10-16-2023 aPTT Coag (PPP) [Time] 83.7 s High 23.0-32.4 [facility] Comment on above: Order Comment: Speci men Type: BLOOD SPECIMENOrdering Facility: [facility] Address: [address] [place] [address] Performed By: #### P TTAC, 53623-4 ####[facility] LABCLIA [id number] [place] [address] [place] aPTT Coag (PPP) [Time] 88.3 s High 23.0-32.4 [facility] Comment on above: Order Comment: Speci men Type: BLOOD SPECIMENOrdering Facility: [facility] Address: [address] [place] [address] Performed By: #### P TTAC, 83977-8 ####[facility] LABCLIA [id number] [place] [address] [place] TYPE + SCREENon 10-16-2023 ABO A Normal [facility] Comment on above: Order Comment: Speci men Type: BLOOD SPECIMENOrdering Facility: [facility] Address: [address] [place] [address] Performed By: #### T SCR ####[facility]ANKCLIA [id number] [place] [address] [place] HISTORICAL AB SCR STATUS Negative Normal [facility] Comment on above: Order Comment: Speci men Type: BLOOD SPECIMENOrdering Facility: [facility] Address: [address] [place] [address] Performed By: #### T SCR ####[facility] BANKCLIA [id number] [place] [address] [place] Rh Nom (Bld) Positive Normal [facility] Comment on above: Order Comment: Speci men Type: BLOOD SPECIMENOrdering Facility: [facility] Address: [address] [place] [address] Performed By: #### T SCR ####[facility]ANKCLIA [id number] [place] [address] [place] TYPE AND SCREEN EXPIRATION 10/18/2023 23:59 Normal [facility] Comment on above: Order Comment: Speci men Type: BLOOD SPECIMENOrdering Facility: [facility] Address: [address] [place] [address] Performed By: #### T SCR ####[facility] BANKCLIA [id number] [place] [address] [place] XR HIP 3V PELV+ AP/LAT LTon 10-16-2023 XR HIP 3V PELV+ AP/LAT LT Normal [facility] aPTT PPPon 10-16-2023 aPTT Coag (PPP) [Time] 62.8 s High 23.0-32.4 [facility] Comment on above: Order Comment: Speci men Type: BLOOD SPECIMENOrdering Facility: [facility] Address: [address] [place] [address] Performed By: #### 1 4979-9 ####[facility] LABCLIA [id number] [place] [address] [place] Bacteria Spec Resp Culton Bacteria identified Respiratory culture Nom (Unsp spec) Abnormal [facility] Comment on above: Performed By: #### 3 2355-0 ####[facility] LABCLIA [id number] [place] [address] [place] CBC panel Auto (Bld)on 10-15 Erythrocyte distribution width (RBC) [Ratio] 17.9 % High 11.5-15.0 [facility] Comment on above: Order Comment: Speci men Type: BLOOD SPECIMENOrdering Facility: [facility] Address: [address] [place] [address] Performed By: #### 5 8410-2 ####[facility] LABIA [id number] [address] [place] Hematocrit (Bld) [Volume fraction] 32.4 % Low 39.0-51.0 [facility] Comment on above: Order Comment: Speci men Type: BLOOD SPECIMENOrdering Facility: [facility] Address: [address] [place] [address] Performed By: #### 5 8410-2 ####[facility] LABIA [id number] [place] [address] [place] Hemoglobin (Bld) [Mass/Vol] 9.6 g/dL Low 13.0-17.0 [facility] Comment on above: Order Comment: Speci men Type: BLOOD SPECIMENOrdering Facility: [facility] Address: [address] [place] [address] Performed By: #### 5 8410-2 ####[facility] LABCLIA [id number] [place] [address] [place] MCH (RBC) [Entitic mass] 24.7 pg Low 26.0-34.0 [facility] Comment on above: Order Comment: Speci men Type: BLOOD SPECIMENOrdering Facility: [facility] Address: [address] [place] [address] Performed By: #### 5 8410-2 ####[facility] LABCLIA [id number] [place] [address] [place] MCHC (RBC) [Mass/Vol] 29.6 g/dL Low 30.5-36.0 [facility] Comment on above: Order Comment: Speci men Type: BLOOD SPECIMENOrdering Facility: [facility] Address: [address] [place] [address] Performed By: #### 5 8410-2 ####[facility] LABIA [id number] [place] [address] [place] MCV (RBC) [Entitic vol] 83.3 fL Normal 80.0-100.0 [facility] Comment on above: Order Comment: Speci men Type: BLOOD SPECIMENOrdering Facility: [facility] Address: [address] [place] [address] Performed By: #### 5 8410-2 ####[facility] LABIA [id number] [place] [address] [place] Nucleated RBC (Bld) [#/Vol] 10*3/uL Normal <0.01 [facility] Comment on above: Order Comment: Speci men Type: BLOOD SPECIMENOrdering Facility: [facility] Address: [address] [place] [address] Performed By: #### 5 8410-2 ####[facility] LABIA [id number] [place] [address] [place] Platelet mean volume (Bld) [Entitic vol] 10.8 fL Normal 9.0-12.7 [facility] Comment on above: Order Comment: Speci men Type: BLOOD SPECIMENOrdering Facility: [facility] Address: [address] [place] [address] Performed By: #### 5 8410-2 ####[facility] LABCLIA [id number] [place] [address] [place] Platelets (Bld) [#/Vol] 475 10*3/uL High 150-400 [facility] Comment on above: Order Comment: Speci men Type: BLOOD SPECIMENOrdering Facility: [facility] Address: [address] [place] [address] Performed By: #### 5 8410-2 ####[facility] LABCLIA [id number] [place] [address] [place] RBC (Bld) [#/Vol] 3.89 10*6/uL Low 4.20-6.00 [facility] Comment on above: Order Comment: Speci men Type: BLOOD SPECIMENOrdering Facility: [facility] Address: [address] [place] [address] Performed By: #### 5 8410-2 ####[facility] LABIA [id number] [place] [address] [place] WBC (Bld) [#/Vol] 5.56 10*3/uL Normal 3.70-11.00 [facility] Comment on above: Order Comment: Speci men Type: BLOOD SPECIMENOrdering Facility: [facility] Address: [address] [place] [address] Performed By: #### 5 8410-2 ####[facility] LABIA [id number] [place] [address] [place] CONSULTon 10-15-2023 CONSULT Normal [facility] CONSULT PROGon 10-15-2023 CONSULT PROG Normal [facility] Comprehensive metabolic 2000 panelon 10-15-2023 Albumin [Mass/Vol] 2.5 g/dL Low 3.9-4.9 [facility] Comment on above: Order Comment: Speci men Type: BLOOD SPECIMENOrdering Facility: [facility] Address: [address] [place] [address] Performed By: #### 2 4323-8, 2771, ####[facility] LABCLIA [id number] [place] [address] [place] ALP [Catalytic activity/Vol] 960 U/L High 38-113 [facility] Comment on above: Order Comment: Speci men Type: BLOOD SPECIMENOrdering Facility: [facility] Address: [address] [place] [address] Performed By: #### 2 4323-8, 27703-09, ####[facility] LABCLIA [id number] [place] [address] [place] ALT [Catalytic activity/Vol] 353 U/L High 10-54 [facility] Comment on above: Order Comment: Speci men Type: BLOOD SPECIMENOrdering Facility: [facility] Address: [address] [place] [address] Performed By: #### 2 4323-8, 27703-09, ####[facility] LABIA [id number] [place] [address] [place] Anion gap [Moles/Vol] 7 mmol/L Low 9-18 [facility] Comment on above: Order Comment: Speci men Type: BLOOD SPECIMENOrdering Facility: [facility] Address: [address] [place] [address] Performed By: #### 2 4323-8, 27703-09, ####[facility] LABCLIA [id number] [place] [address] [place] AST [Catalytic activity/Vol] 370 U/L High 14-40 [facility] Comment on above: Order Comment: Speci men Type: BLOOD SPECIMENOrdering Facility: [facility] Address: [address] [place], [place] [address] Performed By: #### 2 4323-8, 27703-09, ####[facility] LABCLIA [id number] [address] [address] [place] Bilirubin [Mass/Vol] 0.3 mg/dL Normal 0.2-1.3 [facility] Comment on above: Order Comment: Speci men Type: BLOOD SPECIMENOrdering Facility: [facility] Address: [address] [place] [address] Performed By: #### 2 4323-8, 2776-09, ####[facility] LABCLIA [id number] [place] [address] [place] Calcium [Mass/Vol] 8.7 mg/dL Normal 8.5-10.2 [facility] Comment on above: Order Comment: Speci men Type: BLOOD SPECIMENOrdering Facility: [facility] Address: [address] [place] [address] Performed By: #### 2 4323-8, 2776-09, ####[facility] LABCLIA [id number] [place] [address] [place] Chloride [Moles/Vol] 100 mmol/L Normal 97-105 [facility] Comment on above: Order Comment: Speci men Type: BLOOD SPECIMENOrdering Facility: [facility] Address: [address] [place] [address] Performed By: #### 2 4323-8, 2776-09, ####[facility] LABCLIA [id number] [address] [address] [place] CO2 [Moles/Vol] 30 mmol/L Normal 22-30 [facility] Comment on above: Order Comment: Speci men Type: BLOOD SPECIMENOrdering Facility: [facility] Address: [address] [place] [address] Performed By: #### 2 4323-8, 2776-09, ####[facility] LABIA [id number] [address] [address] [place] Creatinine [Mass/Vol] 0.41 mg/dL Low 0.73-1.22 [facility] Comment on above: Order Comment: Specdominic schwarz Type: BLOOD SPECIMENOrdering Facility: [facility] Address: [address] [place] [address] Performed By: #### 2 4323-8, 2777-, ####[facility] LABIA [id number] [place] [id number] [place] Creatinine and Glomerular filtration rate.predicted panel (S/P/Bld) 141 mL/min/1.73m??? Normal >=60 [facility] Comment on above: Order Comment: Darwin schwarz Type: BLOOD SPECIMENOrdering Facility: [facility] Address: [address] [place] [address] Result Comment: Rae mated Glomerular Filtration Rate [...] actual GFR. Performed By: #### 2 4323-8, 2777, ####[facility] LABIA [id number] [place] [id number] [place] Glucose [Mass/Vol] 133 mg/dL High 74-99 [facility] Comment on above: Order Comment: Speci karishma Type: BLOOD SPECIMENOrdering Facility: [facility] Address: [address] [place] [id number] Result Comment: The [place] [employer] (ADA) provides guidance for cutoff [...] Standards of Medical Care in Diabetes 2016, [place] [employer]. Diabetes Care. 2016.39(Suppl 1). Performed By: #### 2 4323-8, 27703-09, ####[facility] LABCLIA [id number] [address] [address] [place] Potassium [Moles/Vol] 3.8 mmol/L Normal 3.7-5.1 [facility] Comment on above: Order Comment: Speci men Type: BLOOD SPECIMENOrdering Facility: [facility] Address: [address] [place] [address] Performed By: #### 2 4323-8, 2776-09, ####[facility] LABCLIA [id number] [place] [address] [place] Protein [Mass/Vol] 5.4 g/dL Low 6.3-8.0 [facility] Comment on above: Order Comment: Speci men Type: BLOOD SPECIMENOrdering Facility: [facility] Address: [address] [place] [address] Performed By: #### 2 4323-8, 2776-09, ####[facility] LABCLIA [id number] [place] [address] [place] Sodium [Moles/Vol] 137 mmol/L Normal 136-144 [facility] Comment on above: Order Comment: Speci men Type: BLOOD SPECIMENOrdering Facility: [facility] Address: [address] [place] [address] Performed By: #### 2 4323-8, 27703-09, ####[facility] LABCLIA [id number] [place] [address] [place] Urea nitrogen [Mass/Vol] 6 mg/dL Low 9-24 [facility] Comment on above: Order Comment: Speci men Type: BLOOD SPECIMENOrdering Facility: [facility] Address: [address] [place] [address] Performed By: #### 2 4323-8, 2777-1, 47161-2 ####[facility] LABCLIA [id number] [place] [address] [place] Gas and Carbon monoxide pane l (BldV)on 10-15-2023 Base excess Calc (BldV) [Moles/Vol] 6 mmol/L High 0-2 [facility] Comment on above: Order Comment: Speci men Type: VENOUS BLOOD SPECIMENOrdering Facility: [facility] Address: [address] [place] [address] Performed By: #### 2 4344-4 ####[facility] LABIA [id number] [place] [address] [place] Body temperature 98.6 [degF] Normal [facility] Comment on above: Order Comment: Speci men Type: VENOUS BLOOD SPECIMENOrdering Facility: [facility] Address: [address] [place] [address] Performed By: #### 2 4344-4 ####[facility] LABIA [id number] [place] [address] [place] Calcium.ionized (Bld) [Mass/Vol] 1.22 mmol/L Normal 1.08-1.30 [facility] Comment on above: Order Comment: Speci men Type: VENOUS BLOOD SPECIMENOrdering Facility: [facility] Address: [address] [place] [address] Performed By: #### 2 4344-4 ####[facility] LABCLIA [id number] [place] [address] [place] Calcium.ionized adjusted to pH 7.4 (BldA) [Moles/Vol] 1.21 mmol/L Normal 1.08-1.30 [facility] Comment on above: Order Comment: Speci men Type: VENOUS BLOOD SPECIMENOrdering Facility: [facility] Address: [address] [place] [address] Performed By: #### 2 4344-4 ####[facility] LABCLIA [id number] [place] [address] [place] Carboxyhemoglobin (BldV) [Mass fraction] 1.5 % Normal 0.0-2.0 [facility] Comment on above: Order Comment: Speci men Type: VENOUS BLOOD SPECIMENOrdering Facility: [facility] Address: [address] [place] [address] Result Comment: Carb oxyhemoglobin Reference Range for Smokers: 2.0-8.0% Performed By: #### 2 4344-4 ####[facility] LABCLIA [id number] [place] [address] [place] CO2 (BldV) [Partial pressure] 52 mm[Hg] Normal 42-55 [facility] Comment on above: Order Comment: Speci men Type: VENOUS BLOOD SPECIMENOrdering Facility: [facility] Address: [address] [place] [address] Performed By: #### 2 4344-4 ####[facility] LABCLIA [id number] [place] [address] [place] FIO2 30 % Normal [facility] Comment on above: Order Comment: Speci men Type: VENOUS BLOOD SPECIMENOrdering Facility: [facility] Address: [address] [place] [address] Performed By: #### 2 4344-4 ####[facility] LABCLIA [id number] [place] [address] [place] Glucose [Mass/Vol] 111 mg/dL High 60-105 [facility] Comment on above: Order Comment: Speci men Type: VENOUS BLOOD SPECIMENOrdering Facility: [facility] Address: [address] [place] [address] Performed By: #### 2 4344-4 ####[facility] LABCLIA [id number] [place] [address] [place] HCO3 (Bld) [Moles/Vol] 32 mmol/L High 24-28 [facility] Comment on above: Order Comment: Speci men Type: VENOUS BLOOD SPECIMENOrdering Facility: [facility] Address: [address] [place] [address] Performed By: #### 2 4344-4 ####[facility] LABCLIA [id number] [place] [address] [place] Hematocrit (Bld) [Volume fraction] 31.0 % Low 39.0-51.0 [facility] Comment on above: Order Comment: Speci men Type: VENOUS BLOOD SPECIMENOrdering Facility: [facility] Address: [address] [place] [address] Performed By: #### 2 4344-4 ####[facility] LABCLIA [id number] [place] [address] [place] Hemoglobin (Bld) [Mass/Vol] 10.0 g/dL Low 13.0-17.0 [facility] Comment on above: Order Comment: Speci men Type: VENOUS BLOOD SPECIMENOrdering Facility: [facility] Address: [address] [place] [address] Performed By: #### 2 4344-4 ####[facility] LABCLIA [id number] [place] [address] [place] Lactate [Moles/Vol] 0.9 mmol/L Normal 0.5-2.2 [facility] Comment on above: Order Comment: Speci men Type: VENOUS BLOOD SPECIMENOrdering Facility: [facility] Address: [address] [place] [address] Performed By: #### 2 4344-4 ####[facility] LABCLIA [id number] [address] [address] [place] Methemoglobin (Bld) [Mass fraction] 0.8 % Normal 0.0-1.5 [facility] Comment on above: Order Comment: Speci men Type: VENOUS BLOOD SPECIMENOrdering Facility: [facility] Address: [address] [place], [place] [address] Performed By: #### 2 4344-4 ####[facility] LABCLIA [id number] [address] [address] [place] O2 THERAPY Ventilator Normal [facility] Comment on above: Order Comment: Speci men Type: VENOUS BLOOD SPECIMENOrdering Facility: [facility] Address: [address] [place], [place] [address] Performed By: #### 2 4344-4 ####[facility] LABCLIA [id number] [address] [address] [place] Oxygen (BldV) [Partial pressure] 51 mm[Hg] High 35-45 [facility] Comment on above: Order Comment: Speci men Type: VENOUS BLOOD SPECIMENOrdering Facility: [facility] Address: [address] [place] [address] Performed By: #### 2 4344-4 ####[facility] LABCLIA [id number] [address] [address] [place] Oxygen saturation in Venous blood 83 % Normal 60-85 [facility] Comment on above: Order Comment: Speci men Type: VENOUS BLOOD SPECIMENOrdering Facility: [facility] Address: [address] [place] [address] Performed By: #### 2 4344-4 ####[facility] LABCLIA [id number] [address] [address] [place] Oxyhemoglobin (BldV) [Mass fraction] 82 % Normal 60-85 [facility] Comment on above: Order Comment: Speci men Type: VENOUS BLOOD SPECIMENOrdering Facility: [facility] Address: [address] [place] [id number] Performed By: #### 2 4344-4 ####[facility] LABCLIA [id number] [place] [address] [place] PEEP/CPAP 5 cmH2O Normal [facility] Comment on above: Order Comment: Speci men Type: VENOUS BLOOD SPECIMENOrdering Facility: [facility] Address: [address] [place] [address] Performed By: #### 2 4344-4 ####[facility] LABCLIA [id number] [place] [address] [place] pH (BldV) 7.40 [pH] Normal 7.32-7.42 [facility] Comment on above: Order Comment: Speci men Type: VENOUS BLOOD SPECIMENOrdering Facility: [facility] Address: [address] [place] [address] Performed By: #### 2 4344-4 ####[facility] LABIA [id number] [place] [address] [place] Potassium [Moles/Vol] 3.9 mmol/L Normal 3.5-5.0 [facility] Comment on above: Order Comment: Speci men Type: VENOUS BLOOD SPECIMENOrdering Facility: [facility] Address: [address] [place], [place] [address] Performed By: #### 2 4344-4 ####[facility] LABCLIA [id number] [place] [address] [place] Sodium [Moles/Vol] 137 mmol/L Normal 136-144 [facility] Comment on above: Order Comment: Speci men Type: VENOUS BLOOD SPECIMENOrdering Facility: [facility] Address: [address] [place], [place] [address] Performed By: #### 2 4344-4 ####[facility] LABIA [id number] [place] [id number] [place] Magnesium SerPl-mCncon 10-15 Magnesium [Mass/Vol] 2.0 mg/dL Normal 1.7-2.3 [facility] Comment on above: Order Comment: Speci men Type: BLOOD SPECIMENOrdering Facility: [facility] Address: [address] [place] [address] Performed By: #### 2 4323-8, 2777-1, 84378-3 ####[facility] LABCLIA [id number] [place] [address] [place] Phosphate SerPl-mCncon 10-15 Phosphate [Mass/Vol] 3.0 mg/dL Normal 2.7-4.8 [facility] Comment on above: Order Comment: Speci men Type: BLOOD SPECIMENOrdering Facility: [facility] Address: [address] [place] [address] Performed By: #### 2 4323-8, 2777-1, ####[facility] LABCLIA [id number] [place] [id number] [place] US ABD RIGHT UPPER QUADRANTo n 10-15-2023 US ABD RIGHT UPPER QUADRANT Normal [facility] US ABD SPLEEN -NBon 10-15-19 US ABD SPLEEN -NB Normal [facility] XR CHEST 1V FRONTAL PORTon 0 10-15-2023 XR CHEST 1V FRONTAL PORT Normal [facility] aPTT PPPon 10-15-2023 aPTT Coag (PPP) [Time] 67.1 s High 23.0-32.4 [facility] Comment on above: Order Comment: Speci men Type: BLOOD SPECIMENOrdering Facility: [facility] Address: [address] [place] [address] Performed By: #### 1 4979-9 ####[facility] LABCLIA [id number] [place] [id number] [place] ALLIED HEALTHon 10-14-2023 ALLIED HEALTH Normal [facility] CASE MANAGEMon 10-14-2023 CASE MANAGEM Normal [facility] CASE MANAGEM Normal [facility] CASE MGT INIT ASSESon 2023 CASE MGT INIT ASSES Normal [facility] CBC panel Auto (Bld)on 10-14 Erythrocyte distribution width (RBC) [Ratio] 18.2 % High 11.5-15.0 [facility] Comment on above: Order Comment: Speci men Type: BLOOD SPECIMENOrdering Facility: [facility] Address: [address] [place] [address] Performed By: #### 5 8410-2 ####[facility] LABIA [id number] [place] [address] [place] Hematocrit (Bld) [Volume fraction] 32.8 % Low 39.0-51.0 [facility] Comment on above: Order Comment: Speci men Type: BLOOD SPECIMENOrdering Facility: [facility] Address: [address] [place] [address] Performed By: #### 5 8410-2 ####[facility] LABIA [id number] [place] [address] [place] Hemoglobin (Bld) [Mass/Vol] 9.4 g/dL Low 13.0-17.0 [facility] Comment on above: Order Comment: Speci men Type: BLOOD SPECIMENOrdering Facility: [facility] Address: [address] [place] [address] Performed By: #### 5 8410-2 ####[facility] LABIA [id number] [place] [address] [place] MCH (RBC) [Entitic mass] 24.6 pg Low 26.0-34.0 [facility] Comment on above: Order Comment: Speci men Type: BLOOD SPECIMENOrdering Facility: [facility] Address: [address] [place] [address] Performed By: #### 5 8410-2 ####[facility] LABIA [id number] [place] [address] [place] MCHC (RBC) [Mass/Vol] 28.7 g/dL Low 30.5-36.0 [facility] Comment on above: Order Comment: Speci men Type: BLOOD SPECIMENOrdering Facility: [facility] Address: [address] [place] [address] Performed By: #### 5 8410-2 ####[facility] LABCLIA [id number] [place] [address] [place] MCV (RBC) [Entitic vol] 85.9 fL Normal 80.0-100.0 [facility] Comment on above: Order Comment: Speci men Type: BLOOD SPECIMENOrdering Facility: [facility] Address: [address] [place] [address] Performed By: #### 5 8410-2 ####[facility] LABCLIA [id number] [place] [address] [place] Nucleated RBC (Bld) [#/Vol] 10*3/uL Normal <0.01 [facility] Comment on above: Order Comment: Speci men Type: BLOOD SPECIMENOrdering Facility: [facility] Address: [address] [place] [address] Performed By: #### 5 8410-2 ####[facility] LABIA [id number] [place] [address] [place] Platelet mean volume (Bld) [Entitic vol] 10.9 fL Normal 9.0-12.7 [facility] Comment on above: Order Comment: Speci men Type: BLOOD SPECIMENOrdering Facility: [facility] Address: [address] [place] [address] Performed By: #### 5 8410-2 ####[facility] LABCLIA [id number] [place] [address] [place] Platelets (Bld) [#/Vol] 448 10*3/uL High 150-400 [facility] Comment on above: Order Comment: Speci men Type: BLOOD SPECIMENOrdering Facility: [facility] Address: [address] [place] [address] Performed By: #### 5 8410-2 ####[facility] LABCLIA [id number] [place] [address] [place] RBC (Bld) [#/Vol] 3.82 10*6/uL Low 4.20-6.00 [facility] Comment on above: Order Comment: Speci men Type: BLOOD SPECIMENOrdering Facility: [facility] Address: [address] [place] [address] Performed By: #### 5 8410-2 ####[facility] LABIA [id number] [place] [address] [place] WBC (Bld) [#/Vol] 8.07 10*3/uL Normal 3.70-11.00 [facility] Comment on above: Order Comment: Speci men Type: BLOOD SPECIMENOrdering Facility: [facility] Address: [address] [place] [address] Performed By: #### 5 8410-2 ####[facility] LABIA [id number] [place] [address] [place] CNCOon 10-14-2023 CNCO Letter Text Normal [facility] Comprehensive metabolic 2000 panelon 10-14-2023 Albumin [Mass/Vol] 2.4 g/dL Low 3.9-4.9 [facility] Comment on above: Order Comment: Speci men Type: BLOOD SPECIMENOrdering Facility: [facility] Address: [address] [place] [address] Performed By: #### 1 9123-9, 86556-7, 2777-1 ####[facility] LABCLIA [id number] [place] [address] [place] ALP [Catalytic activity/Vol] 387 U/L High 38-113 [facility] Comment on above: Order Comment: Speci men Type: BLOOD SPECIMENOrdering Facility: [facility] Address: [address] [place] [address] Performed By: #### 1 9123-9, 55244-9, 2777- ####[facility] LABCLIA [id number] [place] [id number] [place] ALT [Catalytic activity/Vol] 60 U/L High 10-54 [facility] Comment on above: Order Comment: Speci men Type: BLOOD SPECIMENOrdering Facility: [facility] Address: [address] [place] [address] Performed By: #### 1 9123-9, 83925-0, 2777- ####[facility] LABCLIA [id number] [place] [address] [place] Anion gap [Moles/Vol] 11 mmol/L Normal 9-18 [facility] Comment on above: Order Comment: Speci men Type: BLOOD SPECIMENOrdering Facility: [facility] Address: [address] [place] [address] Performed By: #### 1 9123-9, 27350-4, 2777- ####[facility] LABIA [id number] [place] [address] [place] AST [Catalytic activity/Vol] 86 U/L High 14-40 [facility] Comment on above: Order Comment: Speci men Type: BLOOD SPECIMENOrdering Facility: [facility] Address: [address] [place], [place] [address] Performed By: #### 1 9123-9, 00058-6, 2777- ####[facility] LABIA [id number] [place] [id number] [place] Bilirubin [Mass/Vol] mg/dL Low 0.2-1.3 [facility] Comment on above: Order Comment: Speci men Type: BLOOD SPECIMENOrdering Facility: [facility] Address: [address] [place] [address] Performed By: #### 1 9123-9, 76179-9, 2777- ####[facility] LABCLIA [id number] [place] [id number] [place] Calcium [Mass/Vol] 8.9 mg/dL Normal 8.5-10.2 [facility] Comment on above: Order Comment: Speci men Type: BLOOD SPECIMENOrdering Facility: [facility] Address: [address] [place] [address] Performed By: #### 1 9123-9, 07156-0, 277- ####[facility] LABCLIA [id number] [place] [address] [place] Chloride [Moles/Vol] 103 mmol/L Normal 97-105 [facility] Comment on above: Order Comment: Speci men Type: BLOOD SPECIMENOrdering Facility: [facility] [facility] Address: [address] [place] [address] Performed By: #### 1 9123-9, 53337-2, 27703-09 ####[facility] LABIA [id number] [place] [address] [place] CO2 [Moles/Vol] 25 mmol/L Normal 22-30 [facility] Comment on above: Order Comment: Speci men Type: BLOOD SPECIMENOrdering Facility: [facility] Address: [address] [place], [place] [address] Performed By: #### 1 9123-9, 46402-8, 27703-09 ####[facility] LABIA [id number] [place] [address] [place] Creatinine [Mass/Vol] 0.40 mg/dL Low 0.73-1.22 [facility] Comment on above: Order Comment: Speci men Type: BLOOD SPECIMENOrdering Facility: [facility] Address: [address] [place] [address] Performed By: #### 1 9123-9, 79315-8, 277- ####[facility] LABCLIA [id number] [place] [address] [place] Creatinine and Glomerular filtration rate.predicted panel (S/P/Bld) 142 mL/min/1.73m??? Normal >=60 [facility] Comment on above: Order Comment: Darwin schwarz Type: BLOOD SPECIMENOrdering Facility: [facility] Address: [address] [place] [address] Result Comment: Rae mated Glomerular Filtration Rate [...] actual GFR. Performed By: #### 1 9123-9, 28712-7, 277- ####[facility] LABCLIA [id number] [place] [address] [place] Glucose [Mass/Vol] 120 mg/dL High 74-99 [facility] Comment on above: Order Comment: Darwin schwarz Type: BLOOD SPECIMENOrdering Facility: [facility] Address: [address] [place] [address] Result Comment: The [place] [employer] (ADA) provides guidance for cutoff [...] Standards of Medical Care in Diabetes 2016, [place] [employer]. Diabetes Care. 2016.39(Suppl 1). Performed By: #### 1 9123-9, 34660-8, 2777- ####[facility] LABCLIA [id number] [address] [address] [place] Potassium [Moles/Vol] 3.8 mmol/L Normal 3.7-5.1 [facility] Comment on above: Order Comment: Speci men Type: BLOOD SPECIMENOrdering Facility: [facility] Address: [address] [place], [place] [address] Performed By: #### 1 9123-9, 72865-2, 2776- ####[facility] LABCLIA [id number] [address] [address] [place] Protein [Mass/Vol] 5.5 g/dL Low 6.3-8.0 [facility] Comment on above: Order Comment: Speci men Type: BLOOD SPECIMENOrdering Facility: [facility] Address: [address] [place] [address] Performed By: #### 1 9123-9, , 2776-09 ####[facility] LABIA [id number] [place] [address] [place] Sodium [Moles/Vol] 139 mmol/L Normal 136-144 [facility] Comment on above: Order Comment: Speci men Type: BLOOD SPECIMENOrdering Facility: [facility] Address: [address] [place] [address] Performed By: #### 1 9123-9, 11951-6, 2776-09 ####[facility] LABCLIA [id number] [address] [address] [place] Urea nitrogen [Mass/Vol] 9 mg/dL Normal 9-24 [facility] Comment on above: Order Comment: Speci men Type: BLOOD SPECIMENOrdering Facility: [facility] Address: [address] [place], [place] [address] Performed By: #### 1 9123-9, 05752-3, 2777- ####[facility] LABCLIA [id number] [place] [address] [place] GGT SerPl-cCncon 10-14-2023 Gamma glutamyl transferase [Catalytic activity/Vol] 272 U/L High 10-70 [facility] Comment on above: Order Comment: Speci men Type: BLOOD SPECIMENOrdering Facility: [facility] Address: [address] [place] [address] Performed By: #### 2 324-2 ####[facility] LABCLIA [id number] [place] [address] [place] MRI PELVIS WO/W IVCONon 02-0 MRI PELVIS WO/W IVCON Normal [facility] Magnesium SerPl-mCncon 10-14 Magnesium [Mass/Vol] 1.8 mg/dL Normal 1.7-2.3 [facility] Comment on above: Order Comment: Speci men Type: BLOOD SPECIMENOrdering Facility: [facility] Address: [address] [place] [address] Performed By: #### 1 9123-9, 76600-6, 2777-1 ####[facility] LABCLIA [id number] [place] [address] [place] NURSING PROGon 10-14-2023 NURSING PROG Normal [facility] PTT, ANTICOAGULANT THERAPYon 10-14-2023 aPTT Coag (PPP) [Time] 72.9 s High 23.0-32.4 [facility] Comment on above: Order Comment: Speci men Type: BLOOD SPECIMENOrdering Facility: [facility] Address: [address] [place] [address] Performed By: #### P TTAC ####[facility] LABIA [id number] [place] [address] [place] aPTT Coag (PPP) [Time] 72.2 s High 23.0-32.4 [facility] Comment on above: Order Comment: Speci men Type: BLOOD SPECIMENOrdering Facility: [facility] Address: [address] [place] [address] Performed By: #### P TTAC ####[facility] LABIA [id number] [place] [address] [place] Phosphate SerPl-mCncon 10-14 Phosphate [Mass/Vol] 2.9 mg/dL Normal 2.7-4.8 [facility] Comment on above: Order Comment: Speci men Type: BLOOD SPECIMENOrdering Facility: [facility] Address: [address] [place] [address] Performed By: #### 1 9123-9, 67932-0, 2777-1 ####[facility] LABIA [id number] [address] [place] THERAPY NTon 10-14-2023 THERAPY NT Normal [facility] CBC panel Auto (Bld)on 10-13 Erythrocyte distribution width (RBC) [Ratio] 18.1 % High 11.5-15.0 [facility] Comment on above: Order Comment: Speci men Type: BLOOD SPECIMENOrdering Facility: [facility] Address: [address] [place] [address] Performed By: #### 5 8410-2 ####[facility] LABIA [id number] [address] [place] Hematocrit (Bld) [Volume fraction] 31.1 % Low 39.0-51.0 [facility] Comment on above: Order Comment: Speci men Type: BLOOD SPECIMENOrdering Facility: [facility] Address: [address] [place] [address] Performed By: #### 5 8410-2 ####[facility] LABIA [id number] [place] [address] [place] Hemoglobin (Bld) [Mass/Vol] 9.0 g/dL Low 13.0-17.0 [facility] Comment on above: Order Comment: Speci men Type: BLOOD SPECIMENOrdering Facility: [facility] Address: [address] [place] [address] Performed By: #### 5 8410-2 ####[facility] LABIA [id number] [place] [address] [place] MCH (RBC) [Entitic mass] 24.7 pg Low 26.0-34.0 [facility] Comment on above: Order Comment: Speci men Type: BLOOD SPECIMENOrdering Facility: [facility] Address: [address] [place] [address] Performed By: #### 5 8410-2 ####[facility] LABIA [id number] [place] [address] [place] MCHC (RBC) [Mass/Vol] 28.9 g/dL Low 30.5-36.0 [facility] Comment on above: Order Comment: Speci men Type: BLOOD SPECIMENOrdering Facility: [facility] Address: [address] [place] [address] Performed By: #### 5 8410-2 ####[facility] LABIA [id number] [place] [address] [place] MCV (RBC) [Entitic vol] 85.2 fL Normal 80.0-100.0 [facility] Comment on above: Order Comment: Speci men Type: BLOOD SPECIMENOrdering Facility: [facility] Address: [address] [place] [address] Performed By: #### 5 8410-2 ####[facility] LABIA [id number] [place] [address] [place] Nucleated RBC (Bld) [#/Vol] 10*3/uL Normal <0.01 [facility] Comment on above: Order Comment: Speci men Type: BLOOD SPECIMENOrdering Facility: [facility] Address: [address] [place] [address] Performed By: #### 5 8410-2 ####[facility] LABIA [id number] [place] [address] [place] Platelet mean volume (Bld) [Entitic vol] 10.9 fL Normal 9.0-12.7 [facility] Comment on above: Order Comment: Speci men Type: BLOOD SPECIMENOrdering Facility: [facility] Address: [address] [place] [address] Performed By: #### 5 8410-2 ####[facility] LABIA [id number] [place] [address] [place] Platelets (Bld) [#/Vol] 433 10*3/uL High 150-400 [facility] Comment on above: Order Comment: Speci men Type: BLOOD SPECIMENOrdering Facility: [facility] Address: [address] [place] [address] Performed By: #### 5 8410-2 ####[facility] LABIA [id number] [place] [address] [place] RBC (Bld) [#/Vol] 3.65 10*6/uL Low 4.20-6.00 [facility] Comment on above: Order Comment: Speci men Type: BLOOD SPECIMENOrdering Facility: [facility] Address: [address] [place] [address] Performed By: #### 5 8410-2 ####[facility] LABIA [id number] [place] [address] [place] WBC (Bld) [#/Vol] 9.13 10*3/uL Normal 3.70-11.00 [facility] Comment on above: Order Comment: Speci men Type: BLOOD SPECIMENOrdering Facility: [facility] Address: [address] [place] [address] Performed By: #### 5 8410-2 ####[facility] LABCLIA [id number] [place] [address] [place] Comprehensive metabolic 2000 panelon 10-13-2023 Albumin [Mass/Vol] 2.6 g/dL Low 3.9-4.9 [facility] Comment on above: Order Comment: Speci men Type: BLOOD SPECIMENOrdering Facility: [facility] Address: [address] [place] [address] Performed By: #### 2 4323-8 ####[facility] LABCLIA [id number] [place] [address] [place] ALP [Catalytic activity/Vol] 188 U/L High 38-113 [facility] Comment on above: Order Comment: Speci men Type: BLOOD SPECIMENOrdering Facility: [facility] Address: [address] [place] [address] Performed By: #### 2 4323-8 ####[facility] LABCLIA [id number] [place] [address] [place] ALT [Catalytic activity/Vol] 18 U/L Normal 10-54 [facility] Comment on above: Order Comment: Speci men Type: BLOOD SPECIMENOrdering Facility: [facility] Address: [address] [place] [address] Performed By: #### 2 4323-8 ####[facility] LABCLIA [id number] [place] [address] [place] Anion gap [Moles/Vol] 8 mmol/L Low 9-18 [facility] Comment on above: Order Comment: Speci men Type: BLOOD SPECIMENOrdering Facility: [facility] Address: [address] [place] [address] Performed By: #### 2 4323-8 ####[facility] LABCLIA [id number] [place] [address] [place] AST [Catalytic activity/Vol] 9 U/L Low 14-40 [facility] Comment on above: Order Comment: Speci men Type: BLOOD SPECIMENOrdering Facility: [facility] Address: [address] [place] [address] Performed By: #### 2 4323-8 ####[facility] LABCLIA [id number] [facility] [place] [address] [place] Bilirubin [Mass/Vol] 0.2 mg/dL Normal 0.2-1.3 [facility] Comment on above: Order Comment: Speci men Type: BLOOD SPECIMENOrdering Facility: [facility] Address: [address] [place] [address] Performed By: #### 2 4323-8 ####[facility] LABCLIA [id number] [facility] [place] [place] [address] [place] Calcium [Mass/Vol] 9.0 mg/dL Normal 8.5-10.2 [facility] Comment on above: Order Comment: Speci men Type: BLOOD SPECIMENOrdering Facility: [facility] Address: [address] [place] [address] Performed By: #### 2 4323-8 ####[facility] LABCLIA [id number] [place] [address] [place] Chloride [Moles/Vol] 105 mmol/L Normal 97-105 [facility] Comment on above: Order Comment: Speci men Type: BLOOD SPECIMENOrdering Facility: [facility] Address: [address] [place] [address] Performed By: #### 2 4323-8 ####[facility] LABCLIA [id number] [place] [address] [place] CO2 [Moles/Vol] 28 mmol/L Normal 22-30 [facility] Comment on above: Order Comment: Speci men Type: BLOOD SPECIMENOrdering Facility: [facility] Address: [address] [place] [address] Performed By: #### 2 4323-8 ####[facility] LABCLIA [id number] [place] [address] [place] Creatinine [Mass/Vol] 0.48 mg/dL Low 0.73-1.22 [facility] Comment on above: Order Comment: Darwin schwarz Type: BLOOD SPECIMENOrdering Facility: [facility] Address: [address] [place] [address] Performed By: #### 2 4323-8 ####[facility] LABCLIA [id number] [place] [address] [place] Creatinine and Glomerular filtration rate.predicted panel (S/P/Bld) 135 mL/min/1.73m??? Normal >=60 [facility] Comment on above: Order Comment: Darwin schwarz Type: BLOOD SPECIMENOrdering Facility: [facility] Address: [address] [place] [address] Result Comment: Rae mated Glomerular Filtration Rate [...] actual GFR. Performed By: #### 2 4323-8 ####[facility] LABCLIA [id number] [place] [address] [place] Glucose [Mass/Vol] 115 mg/dL High 74-99 [facility] Comment on above: Order Comment: Darwin schwarz Type: BLOOD SPECIMENOrdering Facility: [facility] Address: [address] [place] [address] Result Comment: The [place] Diabetes [employer] (ADA) provides guidance for cutoff [...] Standards of Medical Care in Diabetes 2016, [place] [employer]. Diabetes Care. 2016.39(Suppl 1). Performed By: #### 2 4323-8 ####[facility] LABCLIA [id number] [place] [address] [place] Potassium [Moles/Vol] 3.6 mmol/L Low 3.7-5.1 [facility] Comment on above: Order Comment: Speci men Type: BLOOD SPECIMENOrdering Facility: [facility] Address: [address] [place] [address] Performed By: #### 2 4323-8 ####[facility] LABCLIA [id number] [place] [address] [place] Protein [Mass/Vol] 5.6 g/dL Low 6.3-8.0 [facility] Comment on above: Order Comment: Speci men Type: BLOOD SPECIMENOrdering Facility: [facility] Address: [address] [place] [address] Performed By: #### 2 4323-8 ####[facility] LABIA [id number] [place] [address] [place] Sodium [Moles/Vol] 141 mmol/L Normal 136-144 [facility] Comment on above: Order Comment: Speci men Type: BLOOD SPECIMENOrdering Facility: [facility] Address: [address] [place] [address] Performed By: #### 2 4323-8 ####[facility] LABCLIA [id number] [place] [address] [place] Urea nitrogen [Mass/Vol] 11 mg/dL Normal 9-24 [facility] Comment on above: Order Comment: Speci men Type: BLOOD SPECIMENOrdering Facility: [facility] Address: [address] [place] [address] Performed By: #### 2 4323-8 ####[facility] LABCLIA [id number] [address] [place] Gas and Carbon monoxide pane l (BldV)on 10-13-2023 Base excess Calc (BldV) [Moles/Vol] 4 mmol/L High 0-2 [facility] Comment on above: Order Comment: Speci men Type: VENOUS BLOOD SPECIMENOrdering Facility: [facility] Address: [address] [place] [address] Performed By: #### 2 4344-4 ####[facility] LABIA [id number] [place] [address] [place] Body temperature 98.6 [degF] Normal [facility] Comment on above: Order Comment: Speci men Type: VENOUS BLOOD SPECIMENOrdering Facility: [facility] Address: [address] [place] [address] Performed By: #### 2 4344-4 ####[facility] LABIA [id number] [place] [address] [place] Calcium.ionized (Bld) [Mass/Vol] 1.26 mmol/L Normal 1.08-1.30 [facility] Comment on above: Order Comment: Speci men Type: VENOUS BLOOD SPECIMENOrdering Facility: [facility] Address: [address] [place] [address] Performed By: #### 2 4344-4 ####[facility] LABIA [id number] [place] [address] [place] Calcium.ionized adjusted to pH 7.4 (BldA) [Moles/Vol] 1.25 mmol/L Normal 1.08-1.30 [facility] Comment on above: Order Comment: Speci men Type: VENOUS BLOOD SPECIMENOrdering Facility: [facility] Address: [address] [place] [address] Performed By: #### 2 4344-4 ####[facility] LABIA [id number] [place] [address] [place] Carboxyhemoglobin (BldV) [Mass fraction] 1.5 % Normal 0.0-2.0 [facility] Comment on above: Order Comment: Speci men Type: VENOUS BLOOD SPECIMENOrdering Facility: [facility] Address: [address] [place] [address] Result Comment: Carb oxyhemoglobin Reference Range for Smokers: 2.0-8.0% Performed By: #### 2 4344-4 ####[facility] LABCLIA [id number] [place] [address] [place] CO2 (BldV) [Partial pressure] 49 mm[Hg] Normal 42-55 [facility] Comment on above: Order Comment: Speci men Type: VENOUS BLOOD SPECIMENOrdering Facility: [facility] Address: [address] [place] [address] Performed By: #### 2 4344-4 ####[facility] LABCLIA [id number] [place] [address] [place] FIO2 35 % Normal [facility] Comment on above: Order Comment: Speci men Type: VENOUS BLOOD SPECIMENOrdering Facility: [facility] Address: [address] [place] [address] Performed By: #### 2 4344-4 ####[facility] LABCLIA [id number] [place] [address] [place] Glucose [Mass/Vol] 117 mg/dL High 60-105 [facility] Comment on above: Order Comment: Speci men Type: VENOUS BLOOD SPECIMENOrdering Facility: [facility] Address: [address] [place] [address] Performed By: #### 2 4344-4 ####[facility] LABCLIA [id number] [place] [address] [place] HCO3 (Bld) [Moles/Vol] 29 mmol/L High 24-28 [facility] Comment on above: Order Comment: Speci men Type: VENOUS BLOOD SPECIMENOrdering Facility: [facility] Address: [address] [place] [address] Performed By: #### 2 4344-4 ####[facility] LABCLIA [id number] [place] [address] [place] Hematocrit (Bld) [Volume fraction] 28.2 % Low 39.0-51.0 [facility] Comment on above: Order Comment: Speci men Type: VENOUS BLOOD SPECIMENOrdering Facility: [facility] Address: [address] [place] [address] Performed By: #### 2 4344-4 ####[facility] LABIA [id number] [place] [address] [place] Hemoglobin (Bld) [Mass/Vol] 9.1 g/dL Low 13.0-17.0 [facility] Comment on above: Order Comment: Speci men Type: VENOUS BLOOD SPECIMENOrdering Facility: [facility] Address: [address] [place] [address] Performed By: #### 2 4344-4 ####[facility] LABIA [id number] [place] [address] [place] Lactate [Moles/Vol] 0.8 mmol/L Normal 0.5-2.2 [facility] Comment on above: Order Comment: Speci men Type: VENOUS BLOOD SPECIMENOrdering Facility: [facility] Address: [address] [place] [address] Performed By: #### 2 4344-4 ####[facility] LABCLIA [id number] [place] [address] [place] Methemoglobin (Bld) [Mass fraction] 0.7 % Normal 0.0-1.5 [facility] Comment on above: Order Comment: Speci men Type: VENOUS BLOOD SPECIMENOrdering Facility: [facility] Address: [address] [place] [address] Performed By: #### 2 4344-4 ####[facility] LABCLIA [id number] [address] [address] [place] O2 THERAPY Ventilator Normal [facility] Comment on above: Order Comment: Speci men Type: VENOUS BLOOD SPECIMENOrdering Facility: [facility] Address: [address] [place] [id number] Performed By: #### 2 4344-4 ####[facility] LABCLIA [id number] [address] [address] [place] Oxygen (BldV) [Partial pressure] 50 mm[Hg] High 35-45 [facility] Comment on above: Order Comment: Speci men Type: VENOUS BLOOD SPECIMENOrdering Facility: [facility] Address: [address] [place] [address] Performed By: #### 2 4344-4 ####[facility] LABCLIA [id number] [place] [address] [place] Oxygen saturation in Venous blood 82 % Normal 60-85 [facility] Comment on above: Order Comment: Speci men Type: VENOUS BLOOD SPECIMENOrdering Facility: [facility] Address: [address] [place], [place] [address] Performed By: #### 2 4344-4 ####[facility] LABCLIA [id number] [address] [address] [place] Oxyhemoglobin (BldV) [Mass fraction] 80 % Normal 60-85 [facility] Comment on above: Order Comment: Speci men Type: VENOUS BLOOD SPECIMENOrdering Facility: [facility] Address: [address] [place] [address] Performed By: #### 2 4344-4 ####[facility] LABCLIA [id number] [place] [id number] [place] PEEP/CPAP 5 cmH2O Normal [facility] Comment on above: Order Comment: Speci men Type: VENOUS BLOOD SPECIMENOrdering Facility: [facility] Address: [address] [place], [place] [address] Performed By: #### 2 4344-4 ####[facility] LABCLIA [id number] [place] [address] [place] pH (BldV) 7.39 [pH] Normal 7.32-7.42 [facility] Comment on above: Order Comment: Speci men Type: VENOUS BLOOD SPECIMENOrdering Facility: [facility] Address: [address] [place] [address] Performed By: #### 2 4344-4 ####[facility] LABIA [id number] [place] [address] [place] Potassium [Moles/Vol] 3.5 mmol/L Normal 3.5-5.0 [facility] Comment on above: Order Comment: Speci men Type: VENOUS BLOOD SPECIMENOrdering Facility: [facility] Address: [address] [place] [address] Performed By: #### 2 4344-4 ####[facility] LABIA [id number] [place] [address] [place] Sodium [Moles/Vol] 140 mmol/L Normal 136-144 [facility] Comment on above: Order Comment: Speci men Type: VENOUS BLOOD SPECIMENOrdering Facility: [facility] Address: [address] [place] [address] Performed By: #### 2 4344-4 ####[facility] LABIA [id number] [place] [address] [place] PTT, ANTICOAGULANT THERAPYon 10-13-2023 aPTT Coag (PPP) [Time] 33.6 s High 23.0-32.4 [facility] Comment on above: Order Comment: Speci men Type: BLOOD SPECIMENOrdering Facility: [facility] Address: [address] [place] [address] Performed By: #### P TTAC ####[facility] LABIA [id number] [place] [address] [place] TYPE + SCREENon 10-13-2023 ABO A Normal [facility] Comment on above: Order Comment: Speci men Type: BLOOD SPECIMENOrdering Facility: [facility] Address: [address] [place] [address] Performed By: #### T SCR ####CC MAIN BLOOD BANKCLIA [id number] [place] [address] [place] HISTORICAL AB SCR STATUS Negative Normal [facility] Comment on above: Order Comment: Speci men Type: BLOOD SPECIMENOrdering Facility: [facility] Address: [address] [place] [address] Performed By: #### T SCR ####CC MAIN BLOOD BANKCLIA [id number] [place] [address] [place] Rh Nom (Bld) Positive Normal [facility] Comment on above: Order Comment: Speci men Type: BLOOD SPECIMENOrdering Facility: [facility] Address: [address] [place] [address] Performed By: #### T SCR ####[facility] BLOOD BANKCLIA [id number] [place] [address] [place] TYPE AND SCREEN EXPIRATION 10/16/2023 23:59 Normal [facility] Comment on above: Order Comment: Speci men Type: BLOOD SPECIMENOrdering Facility: [facility] Address: [address] [place] [address] Performed By: #### T SCR ####CC MAIN BLOOD BANKCLIA [id number] [place] [address] [place] aPTT PPPon 10-13-2023 aPTT Coag (PPP) [Time] 88.5 s High 23.0-32.4 [facility] Comment on above: Order Comment: Speci men Type: BLOOD SPECIMENOrdering Facility: [facility] Address: [address] [place] [address] Performed By: #### 1 4979-9 ####[facility] LABCLIA [id number] [place] [address] [place] aPTT Coag (PPP) [Time] 36.7 s High 23.0-32.4 [facility] Comment on above: Order Comment: Speci men Type: BLOOD SPECIMENOrdering Facility: [facility] Address: [address] [place] [address] Performed By: #### 1 4979-9 ####[facility] LABCLIA [id number] [place] [address] [place] aPTT Coag (PPP) [Time] 33.3 s High 23.0-32.4 [facility] Comment on above: Order Comment: Speci men Type: BLOOD SPECIMENOrdering Facility: [facility] Address: [address] [place] [address] Performed By: #### 1 4979-9 ####[facility] LABIA [id number] [place] [address] [place] CBC panel Auto (Bld)on 10-12 Erythrocyte distribution width (RBC) [Ratio] 18.3 % High 11.5-15.0 [facility] Comment on above: Order Comment: Speci men Type: BLOOD SPECIMENOrdering Facility: [facility] Address: [address] [place] [address] Performed By: #### 5 8410-2 ####[facility] LABIA [id number] [place] [address] [place] Hematocrit (Bld) [Volume fraction] 30.4 % Low 39.0-51.0 [facility] Comment on above: Order Comment: Speci men Type: BLOOD SPECIMENOrdering Facility: [facility] Address: [address] [place] [address] Performed By: #### 5 8410-2 ####[facility] LABCLIA [id number] [place] [address] [place] Hemoglobin (Bld) [Mass/Vol] 8.7 g/dL Low 13.0-17.0 [facility] Comment on above: Order Comment: Speci men Type: BLOOD SPECIMENOrdering Facility: [facility] Address: [address] [place] [address] Performed By: #### 5 8410-2 ####[facility] LABIA [id number] [place] [address] [place] MCH (RBC) [Entitic mass] 24.4 pg Low 26.0-34.0 [facility] Comment on above: Order Comment: Speci men Type: BLOOD SPECIMENOrdering Facility: [facility] Address: [address] [place] [address] Performed By: #### 5 8410-2 ####[facility] LABIA [id number] [place] [address] [place] MCHC (RBC) [Mass/Vol] 28.6 g/dL Low 30.5-36.0 [facility] Comment on above: Order Comment: Speci men Type: BLOOD SPECIMENOrdering Facility: [facility] Address: [address] [place] [address] Performed By: #### 5 8410-2 ####[facility] LABIA [id number] [place] [address] [place] MCV (RBC) [Entitic vol] 85.4 fL Normal 80.0-100.0 [facility] Comment on above: Order Comment: Speci men Type: BLOOD SPECIMENOrdering Facility: [facility] Address: [address] [place] [address] Performed By: #### 5 8410-2 ####[facility] LABIA [id number] [place] [address] [place] Nucleated RBC (Bld) [#/Vol] 10*3/uL Normal <0.01 [facility] Comment on above: Order Comment: Speci men Type: BLOOD SPECIMENOrdering Facility: [facility] Address: [address] [place] [address] Performed By: #### 5 8410-2 ####[facility] LABCLIA [id number] [place] [address] [place] Platelet mean volume (Bld) [Entitic vol] 11.0 fL Normal 9.0-12.7 [facility] Comment on above: Order Comment: Speci men Type: BLOOD SPECIMENOrdering Facility: [facility] Address: [address] [place] [address] Performed By: #### 5 8410-2 ####[facility] LABCLIA [id number] [place] [address] [place] Platelets (Bld) [#/Vol] 467 10*3/uL High 150-400 [facility] Comment on above: Order Comment: Speci men Type: BLOOD SPECIMENOrdering Facility: [facility] Address: [address] [place] [address] Performed By: #### 5 8410-2 ####[facility] LABCLIA [id number] [place] [address] [place] RBC (Bld) [#/Vol] 3.56 10*6/uL Low 4.20-6.00 [facility] Comment on above: Order Comment: Speci men Type: BLOOD SPECIMENOrdering Facility: [facility] Address: [address] [place] [address] Performed By: #### 5 8410-2 ####[facility] LABCLIA [id number] [place] [address] [place] WBC (Bld) [#/Vol] 9.91 10*3/uL Normal 3.70-11.00 [facility] Comment on above: Order Comment: Speci men Type: BLOOD SPECIMENOrdering Facility: [facility] Address: [address] [place] [address] Performed By: #### 5 8410-2 ####[facility] LABCLIA [id number] [place] [address] [place] CONSULTon 10-12-2023 CONSULT Normal [facility] Comp Metab 2000 Pnl SerPlon 10-12-2023 Sodium [Moles/Vol] 143 mmol/L Normal 136-144 [facility] Comment on above: Order Comment: Speci men Type: BLOOD SPECIMENOrdering Facility: [facility] Address: [address] [place] [address] Performed By: #### 2 4323-8 ####[facility] LABCLIA [id number] [place] [address] [place] Order Comment: Speci men Type: VENOUS BLOOD SPECIMENOrdering Facility: [facility] Address: [address] [place] [address] Performed By: #### 2 4344-4 ####[facility] LABCLIA [id number] [place] [address] [place] Comprehensive metabolic 2000 panelon 10-12-2023 Albumin [Mass/Vol] 2.7 g/dL Low 3.9-4.9 [facility] Comment on above: Order Comment: Speci men Type: BLOOD SPECIMENOrdering Facility: [facility] Address: [address] [place] [address] Performed By: #### 2 4323-8 ####[facility] LABCLIA [id number] [place] [address] [place] ALP [Catalytic activity/Vol] 222 U/L High 38-113 [facility] Comment on above: Order Comment: Speci men Type: BLOOD SPECIMENOrdering Facility: [facility] Address: [address] [place] [address] Performed By: #### 2 4323-8 ####[facility] LABCLIA [id number] [place] [address] [place] ALT [Catalytic activity/Vol] 22 U/L Normal 10-54 [facility] Comment on above: Order Comment: Speci men Type: BLOOD SPECIMENOrdering Facility: [facility] Address: [address] [place] [id number] Performed By: #### 2 4323-8 ####[facility] LABCLIA [id number] [place] [id number] [place] Anion gap [Moles/Vol] 11 mmol/L Normal 9-18 [facility] Comment on above: Order Comment: Speci men Type: BLOOD SPECIMENOrdering Facility: [facility] Address: [address] [place] [address] Performed By: #### 2 4323-8 ####[facility] LABCLIA [id number] [place] [address] [place] AST [Catalytic activity/Vol] 11 U/L Low 14-40 [facility] Comment on above: Order Comment: Speci men Type: BLOOD SPECIMENOrdering Facility: [facility] Address: [address] [place] [address] Performed By: #### 2 4323-8 ####[facility] LABCLIA [id number] [place] [address] [place] Bilirubin [Mass/Vol] 0.2 mg/dL Normal 0.2-1.3 [facility] Comment on above: Order Comment: Speci men Type: BLOOD SPECIMENOrdering Facility: [facility] Address: [address] [place] [id number] Performed By: #### 2 4323-8 ####[facility] LABCLIA [id number] [place] [address] [place] Calcium [Mass/Vol] 9.2 mg/dL Normal 8.5-10.2 [facility] Comment on above: Order Comment: Speci men Type: BLOOD SPECIMENOrdering Facility: [facility] Address: [address] [place], [place] [address] Performed By: #### 2 4323-8 ####[facility] LABCLIA [id number] [place] [address] [place] Chloride [Moles/Vol] 107 mmol/L High 97-105 [facility] Comment on above: Order Comment: Speci men Type: BLOOD SPECIMENOrdering Facility: [facility] Address: [address] [place] [address] Performed By: #### 2 4323-8 ####[facility] LABCLIA [id number] [place] [address] [place] CO2 [Moles/Vol] 25 mmol/L Normal 22-30 [facility] Comment on above: Order Comment: Speci men Type: BLOOD SPECIMENOrdering Facility: [facility] Address: [address] [place] [address] Performed By: #### 2 4323-8 ####[facility] LABCLIA [id number] [place] [address] [place] Creatinine [Mass/Vol] 0.53 mg/dL Low 0.73-1.22 [facility] Comment on above: Order Comment: Speci men Type: BLOOD SPECIMENOrdering Facility: [facility] Address: [address] [place] [address] Performed By: #### 2 4323-8 ####[facility] LABIA [id number] [address] [place] Creatinine and Glomerular filtration rate.predicted panel (S/P/Bld) 131 mL/min/1.73m??? Normal >=60 [facility] Comment on above: Order Comment: Speci men Type: BLOOD SPECIMENOrdering Facility: [facility] Address: [address] [place] [address] Result Comment: Rae mated Glomerular Filtration Rate [...] actual GFR. Performed By: #### 2 4323-8 ####[facility] LABIA [id number] [place] [address] [place] Glucose [Mass/Vol] 102 mg/dL High 74-99 [facility] Comment on above: Order Comment: Speci men Type: BLOOD SPECIMENOrdering Facility: [facility] Address: [address] [place] [address] Result Comment: The [place] [employer] (ADA) provides guidance for cutoff [...] Standards of Medical Care in Diabetes 2016, [place] [employer]. Diabetes Care. 2016.39(Suppl 1). Performed By: #### 2 4323-8 ####[facility] LABIA [id number] [place] [address] [place] Potassium [Moles/Vol] 3.3 mmol/L Low 3.7-5.1 [facility] Comment on above: Order Comment: Speci men Type: BLOOD SPECIMENOrdering Facility: [facility] Address: [address] [place] [address] Performed By: #### 2 4323-8 ####[facility] [id number] [place] [address] [place] Protein [Mass/Vol] 5.8 g/dL Low 6.3-8.0 [facility] Comment on above: Order Comment: Speci men Type: BLOOD SPECIMENOrdering Facility: [facility] Address: [address] [place] [address] Performed By: #### 2 4323-8 ####[facility] LABCLIA [id number] [place] [address] [place] Urea nitrogen [Mass/Vol] 10 mg/dL Normal 9-24 [facility] Comment on above: Order Comment: Speci men Type: BLOOD SPECIMENOrdering Facility: [facility] Address: [address] [place] [address] Performed By: #### 2 4323-8 ####[facility] LABCLIA [id number] [place] [address] [place] Gas and Carbon monoxide pane l (BldV)on 10-12-2023 Base excess Calc (BldV) [Moles/Vol] 3 mmol/L High 0-2 [facility] Comment on above: Order Comment: Speci men Type: VENOUS BLOOD SPECIMENOrdering Facility: [facility] Address: [address] [place] [address] Performed By: #### 2 4344-4 ####[facility] LABIA [id number] [place] [address] [place] Body temperature 98.24 [degF] Normal [facility] Comment on above: Order Comment: Speci men Type: VENOUS BLOOD SPECIMENOrdering Facility: [facility] Address: [address] [place] [address] Performed By: #### 2 4344-4 ####[facility] LABCLIA [id number] [place] [address] [place] Calcium.ionized (Bld) [Mass/Vol] 1.26 mmol/L Normal 1.08-1.30 [facility] Comment on above: Order Comment: Speci men Type: VENOUS BLOOD SPECIMENOrdering Facility: [facility] Address: [address] [place] [address] Performed By: #### 2 4344-4 ####[facility] LABCLIA [id number] [place] [address] [place] Calcium.ionized adjusted to pH 7.4 (BldA) [Moles/Vol] 1.29 mmol/L Normal 1.08-1.30 [facility] Comment on above: Order Comment: Speci men Type: VENOUS BLOOD SPECIMENOrdering Facility: [facility] Address: [address] [place] [address] Performed By: #### 2 4344-4 ####[facility] LABIA [id number] [place] [address] [place] Carboxyhemoglobin (BldV) [Mass fraction] 1.8 % Normal 0.0-2.0 [facility] Comment on above: Order Comment: Speci men Type: VENOUS BLOOD SPECIMENOrdering Facility: [facility] Address: [address] [place] [address] Result Comment: Carb oxyhemoglobin Reference Range for Smokers: 2.0-8.0% Performed By: #### 2 4344-4 ####[facility] LABCLIA [id number] [place] [address] [place] CO2 (BldV) [Partial pressure] 41 mm[Hg] Low 42-55 [facility] Comment on above: Order Comment: Speci men Type: VENOUS BLOOD SPECIMENOrdering Facility: [facility] Address: [address] [place] [address] Performed By: #### 2 4344-4 ####[facility] LABCLIA [id number] [place] [address] [place] CO2 adjusted to patient's actual temperature (BldV) [Partial pressure] 41 mmHg Low 42-55 [facility] Comment on above: Order Comment: Speci men Type: VENOUS BLOOD SPECIMENOrdering Facility: [facility] Address: [address] [place] [address] Performed By: #### 2 4344-4 ####[facility] LABCLIA [id number] [place] [address] [place] FIO2 35 % Normal [facility] Comment on above: Order Comment: Speci men Type: VENOUS BLOOD SPECIMENOrdering Facility: [facility] Address: [address] [place] [place] [id number] Performed By: #### 2 4344-4 ####[facility] LABCLIA [id number] [place] [address] [place] Glucose [Mass/Vol] 107 mg/dL High 60-105 [facility] Comment on above: Order Comment: Speci men Type: VENOUS BLOOD SPECIMENOrdering Facility: [facility] Address: [address] [place] [address] Performed By: #### 2 4344-4 ####[facility] LABCLIA [id number] [place] [address] [place] HCO3 (Bld) [Moles/Vol] 27 mmol/L Normal 24-28 [facility] Comment on above: Order Comment: Speci men Type: VENOUS BLOOD SPECIMENOrdering Facility: [facility] Address: [address] [place], [place] [address] Performed By: #### 2 4344-4 ####[facility] LABCLIA [id number] [place] [address] [place] Hematocrit (Bld) [Volume fraction] 28.4 % Low 39.0-51.0 [facility] Comment on above: Order Comment: Speci men Type: VENOUS BLOOD SPECIMENOrdering Facility: [facility] Address: [address] [place] [id number] Performed By: #### 2 4344-4 ####[facility] LABCLIA [id number] [place] [address] [place] Hemoglobin (Bld) [Mass/Vol] 9.1 g/dL Low 13.0-17.0 [facility] Comment on above: Order Comment: Speci men Type: VENOUS BLOOD SPECIMENOrdering Facility: [facility] Address: [address] [place], [place] [address] Performed By: #### 2 4344-4 ####[facility] LABCLIA [id number] [place] [address] [place] Lactate [Moles/Vol] 0.8 mmol/L Normal 0.5-2.2 [facility] Comment on above: Order Comment: Speci men Type: VENOUS BLOOD SPECIMENOrdering Facility: [facility] Address: [address] [place] [address] Performed By: #### 2 4344-4 ####[facility] LABCLIA [id number] [place] [address] [place] Methemoglobin (Bld) [Mass fraction] 0.9 % Normal 0.0-1.5 [facility] Comment on above: Order Comment: Speci men Type: VENOUS BLOOD SPECIMENOrdering Facility: [facility] Address: [address] [place] [address] Performed By: #### 2 4344-4 ####[facility] LABIA [id number] [place] [address] [place] O2 THERAPY Ventilator Normal [facility] Comment on above: Order Comment: Speci men Type: VENOUS BLOOD SPECIMENOrdering Facility: [facility] Address: [address] [place] [address] Performed By: #### 2 4344-4 ####[facility] LABCLIA [id number] [place] [address] [place] Oxygen (BldV) [Partial pressure] 58 mm[Hg] High 35-45 [facility] Comment on above: Order Comment: Speci men Type: VENOUS BLOOD SPECIMENOrdering Facility: [facility] Address: [address] [place], [place] [address] Performed By: #### 2 4344-4 ####[facility] LABCLIA [id number] [place] [address] [place] Oxygen adjusted to patient's actual temperature (BldV) [Partial pressure] 57 mmHg High 35-45 [facility] Comment on above: Order Comment: Speci men Type: VENOUS BLOOD SPECIMENOrdering Facility: [facility] Address: [address] [place] [address] Performed By: #### 2 4344-4 ####[facility] LABCLIA [id number] [address] [address] [place] Oxygen saturation in Venous blood 90 % High 60-85 [facility] Comment on above: Order Comment: Speci men Type: VENOUS BLOOD SPECIMENOrdering Facility: [facility] Address: [address] [place], [place] [address] Performed By: #### 2 4344-4 ####[facility] LABCLIA [id number] [place] [address] [place] Oxyhemoglobin (BldV) [Mass fraction] 87 % High 60-85 [facility] Comment on above: Order Comment: Speci men Type: VENOUS BLOOD SPECIMENOrdering Facility: [facility] Address: [address] [place], [place] [address] Performed By: #### 2 4344-4 ####[facility] LABCLIA [id number] [place] [address] [place] PEEP/CPAP 5 cmH2O Normal [facility] Comment on above: Order Comment: Speci men Type: VENOUS BLOOD SPECIMENOrdering Facility: [facility] Address: [address] [place], [place] [address] Performed By: #### 2 4344-4 ####[facility] LABCLIA [id number] [place] [id number] [place] pH (BldV) 7.44 [pH] High 7.32-7.42 [facility] Comment on above: Order Comment: Speci men Type: VENOUS BLOOD SPECIMENOrdering Facility: [facility] Address: [address] [place] [place] [id number] Performed By: #### 2 4344-4 ####[facility] LABCLIA [id number] [place] [address] [place] pH adjusted to patient's actual temperature (BldV) 7.44 High 7.32-7.42 [facility] Comment on above: Order Comment: Speci men Type: VENOUS BLOOD SPECIMENOrdering Facility: [facility] Address: [address] [place] [address] Performed By: #### 2 4344-4 ####[facility] LABIA [id number] [place] [address] [place] Potassium [Moles/Vol] 3.2 mmol/L Low 3.5-5.0 [facility] Comment on above: Order Comment: Speci men Type: VENOUS BLOOD SPECIMENOrdering Facility: [facility] Address: [address] [place] [address] Performed By: #### 2 4344-4 ####[facility] LABIA [id number] [place] [address] [place] PTT, ANTICOAGULANT THERAPYon 10-12-2023 aPTT Coag (PPP) [Time] 50.1 s High 23.0-32.4 [facility] Comment on above: Order Comment: Speci men Type: BLOOD SPECIMENOrdering Facility: [facility] Address: [address] [place] [address] Performed By: #### P TTAC ####[facility] LABIA [id number] [place] [address] [place] aPTT Coag (PPP) [Time] 55.6 s High 23.0-32.4 [facility] Comment on above: Order Comment: Speci men Type: BLOOD SPECIMENOrdering Facility: [facility] Address: [address] [place] [address] Performed By: #### P TTAC ####[facility] LABIA [id number] [place] [address] [place] THERAPY NTon 10-12-2023 THERAPY NT Normal [facility] aPTT PPPon 10-12-2023 aPTT Coag (PPP) [Time] 56.1 s High 23.0-32.4 [facility] Comment on above: Order Comment: Speci men Type: BLOOD SPECIMENOrdering Facility: [facility] Address: [address] [place] [address] Performed By: #### 1 4979-9 ####[facility] LABIA [id number] [place] [address] [place] CBC panel Auto (Bld)on 10-11 Erythrocyte distribution width (RBC) [Ratio] 18.3 % High 11.5-15.0 [facility] Comment on above: Order Comment: Speci men Type: BLOOD SPECIMENOrdering Facility: [facility] Address: [address] [place] [address] Performed By: #### 5 8410-2 ####[facility] LABIA [id number] [place] [address] [place] Hematocrit (Bld) [Volume fraction] 33.0 % Low 39.0-51.0 [facility] Comment on above: Order Comment: Speci men Type: BLOOD SPECIMENOrdering Facility: [facility] Address: [address] [place] [address] Performed By: #### 5 8410-2 ####[facility] LABIA [id number] [place] [address] [place] Hemoglobin (Bld) [Mass/Vol] 9.7 g/dL Low 13.0-17.0 [facility] Comment on above: Order Comment: Speci men Type: BLOOD SPECIMENOrdering Facility: [facility] Address: [address] [place] [address] Performed By: #### 5 8410-2 ####[facility] LABIA [id number] [place] [address] [place] MCH (RBC) [Entitic mass] 25.2 pg Low 26.0-34.0 [facility] Comment on above: Order Comment: Speci men Type: BLOOD SPECIMENOrdering Facility: [facility] Address: [address] [place] [address] Performed By: #### 5 8410-2 ####[facility] LABCLIA [id number] [place] [address] [place] MCHC (RBC) [Mass/Vol] 29.4 g/dL Low 30.5-36.0 [facility] Comment on above: Order Comment: Speci men Type: BLOOD SPECIMENOrdering Facility: [facility] Address: [address] [place] [address] Performed By: #### 5 8410-2 ####[facility] LABCLIA [id number] [place] [address] [place] MCV (RBC) [Entitic vol] 85.7 fL Normal 80.0-100.0 [facility] Comment on above: Order Comment: Speci men Type: BLOOD SPECIMENOrdering Facility: [facility] Address: [address] [place] [address] Performed By: #### 5 8410-2 ####[facility] LABIA [id number] [place] [address] [place] Nucleated RBC (Bld) [#/Vol] 10*3/uL Normal <0.01 [facility] Comment on above: Order Comment: Speci men Type: BLOOD SPECIMENOrdering Facility: [facility] Address: [address] [place] [address] Performed By: #### 5 8410-2 ####[facility] LABCLIA [id number] [place] [address] [place] Platelet mean volume (Bld) [Entitic vol] 11.1 fL Normal 9.0-12.7 [facility] Comment on above: Order Comment: Speci men Type: BLOOD SPECIMENOrdering Facility: [facility] Address: [address] [place] [address] Performed By: #### 5 8410-2 ####[facility] LABCLIA [id number] [place] [address] [place] Platelets (Bld) [#/Vol] 443 10*3/uL High 150-400 [facility] Comment on above: Order Comment: Speci men Type: BLOOD SPECIMENOrdering Facility: [facility] Address: [address] [place] [address] Performed By: #### 5 8410-2 ####[facility] LABIA [id number] [place] [address] [place] RBC (Bld) [#/Vol] 3.85 10*6/uL Low 4.20-6.00 [facility] Comment on above: Order Comment: Speci men Type: BLOOD SPECIMENOrdering Facility: [facility] Address: [address] [place] [address] Performed By: #### 5 8410-2 ####[facility] LABIA [id number] [place] [address] [place] WBC (Bld) [#/Vol] 9.74 10*3/uL Normal 3.70-11.00 [facility] Comment on above: Order Comment: Speci men Type: BLOOD SPECIMENOrdering Facility: [facility] Address: [address] [place] [address] Performed By: #### 5 8410-2 ####[facility] LABIA [id number] [place] [address] [place] CONSULTon 10-11-2023 CONSULT Normal [facility] CONSULT PROGon 10-11-2023 CONSULT PROG Normal [facility] CT ABD/PEL W IVCONon 024 CT ABD/PEL W IVCON Invalid Interpretation Code [facility] metabolic 2000 panelon 10-11-2023 Albumin [Mass/Vol] 2.9 g/dL Low 3.9-4.9 [facility] Comment on above: Order Comment: Speci men Type: BLOOD SPECIMENOrdering Facility: [facility] Address: [address] [place] [address] Performed By: #### 2 4323-8 ####[facility] LABCLIA [id number] [place] [address] [place] ALP [Catalytic activity/Vol] 250 U/L High 38-113 [facility] Comment on above: Order Comment: Speci men Type: BLOOD SPECIMENOrdering Facility: [facility] Address: [address] [place] [address] Performed By: #### 2 4323-8 ####[facility] LABCLIA [id number] [place] [address] [place] ALT [Catalytic activity/Vol] 22 U/L Normal 10-54 [facility] Comment on above: Order Comment: Speci men Type: BLOOD SPECIMENOrdering Facility: [facility] Address: [address] [place] [address] Performed By: #### 2 4323-8 ####[facility] LABCLIA [id number] [place] [address] [place] Anion gap [Moles/Vol] 12 mmol/L Normal 9-18 [facility] Comment on above: Order Comment: Speci men Type: BLOOD SPECIMENOrdering Facility: [facility] Address: [address] [place] [address] Performed By: #### 2 4323-8 ####[facility] LABCLIA [id number] [place] [address] [place] AST [Catalytic activity/Vol] 12 U/L Low 14-40 [facility] Comment on above: Order Comment: Speci men Type: BLOOD SPECIMENOrdering Facility: [facility] Address: [address] [place] [address] Performed By: #### 2 4323-8 ####[facility] LABCLIA [id number] [address] [address] [place] Bilirubin [Mass/Vol] 0.4 mg/dL Normal 0.2-1.3 [facility] Comment on above: Order Comment: Speci men Type: BLOOD SPECIMENOrdering Facility: [facility] Address: [address] [place], [place] [address] Performed By: #### 2 4323-8 ####[facility] LABCLIA [id number] [place] [address] [place] Calcium [Mass/Vol] 9.4 mg/dL Normal 8.5-10.2 [facility] Comment on above: Order Comment: Speci men Type: BLOOD SPECIMENOrdering Facility: [facility] Address: [address] [place] [address] Performed By: #### 2 4323-8 ####[facility] LABCLIA [id number] [place] [address] [place] Chloride [Moles/Vol] 109 mmol/L High 97-105 [facility] Comment on above: Order Comment: Speci men Type: BLOOD SPECIMENOrdering Facility: [facility] Address: [address] [place], [place] [address] Performed By: #### 2 4323-8 ####[facility] LABCLIA [id number] [place] [id number] [place] CO2 [Moles/Vol] 23 mmol/L Normal 22-30 [facility] Comment on above: Order Comment: Speci men Type: BLOOD SPECIMENOrdering Facility: [facility] Address: [address] [place], [place] [address] Performed By: #### 2 4323-8 ####[facility] LABCLIA [id number] [address] [address] [place] Creatinine [Mass/Vol] 0.52 mg/dL Low 0.73-1.22 [facility] Comment on above: Order Comment: Darwin schwarz Type: BLOOD SPECIMENOrdering Facility: [facility] Address: [address] [place] [address] Performed By: #### 2 4323-8 ####[facility] LABCLIA [id number] [place] [address] [place] Creatinine and Glomerular filtration rate.predicted panel (S/P/Bld) 131 mL/min/1.73m??? Normal >=60 [facility] Comment on above: Order Comment: Darwin schwarz Type: BLOOD SPECIMENOrdering Facility: [facility] Address: [address] [place] [address] Result Comment: Rae mated Glomerular Filtration Rate [...] actual GFR. Performed By: #### 2 4323-8 ####[facility] LABIA [id number] [place] [address] [place] Glucose [Mass/Vol] 94 mg/dL Normal 74-99 [facility] Comment on above: Order Comment: Darwin schwarz Type: BLOOD SPECIMENOrdering Facility: [facility] Address: [address] [place] [address] Result Comment: The [place] [employer] (ADA) provides guidance for cutoff [...] Standards of Medical Care in Diabetes 2016, [place] [employer]. Diabetes Care. 2016.39(Suppl 1). Performed By: #### 2 4323-8 ####[facility] LABCLIA [id number] [place] [address] [place] Potassium [Moles/Vol] 4.0 mmol/L Normal 3.7-5.1 [facility] Comment on above: Order Comment: Speci men Type: BLOOD SPECIMENOrdering Facility: [facility] Address: [address] [place] [address] Performed By: #### 2 4323-8 ####[facility] LABCLIA [id number] [place] [address] [place] Protein [Mass/Vol] 6.0 g/dL Low 6.3-8.0 [facility] Comment on above: Order Comment: Speci men Type: BLOOD SPECIMENOrdering Facility: [facility] Address: [address] [place] [address] Performed By: #### 2 4323-8 ####[facility] LABIA [id number] [place] [address] [place] Sodium [Moles/Vol] 144 mmol/L Normal 136-144 [facility] Comment on above: Order Comment: Speci men Type: BLOOD SPECIMENOrdering Facility: [facility] Address: [address] [place] [address] Performed By: #### 2 4323-8 ####[facility] LABCLIA [id number] [place] [id number] [place] Urea nitrogen [Mass/Vol] 10 mg/dL Normal 9-24 [facility] Comment on above: Order Comment: Speci men Type: BLOOD SPECIMENOrdering Facility: [facility] Address: [address] [place] [address] Performed By: #### 2 4323-8 ####[facility] LABCLIA [id number] [place] [id number] [place] Gas and Carbon monoxide pane l (BldV)on 10-11-2023 Base excess Calc (BldV) [Moles/Vol] 3 mmol/L High 0-2 [facility] Comment on above: Order Comment: Speci men Type: VENOUS BLOOD SPECIMENOrdering Facility: [facility] Address: [address] [place] [address] Performed By: #### 2 4344-4 ####[facility] LABIA [id number] [place] [address] [place] Body temperature 98.96 [degF] Normal [facility] Comment on above: Order Comment: Speci men Type: VENOUS BLOOD SPECIMENOrdering Facility: [facility] Address: [address] [place] [address] Performed By: #### 2 4344-4 ####[facility] LABIA [id number] [place] [address] [place] Calcium.ionized (Bld) [Mass/Vol] 1.26 mmol/L Normal 1.08-1.30 [facility] Comment on above: Order Comment: Speci men Type: VENOUS BLOOD SPECIMENOrdering Facility: [facility] Address: [address] [place] [address] Performed By: #### 2 4344-4 ####[facility] LABIA [id number] [place] [address] [place] Calcium.ionized adjusted to pH 7.4 (BldA) [Moles/Vol] 1.29 mmol/L Normal 1.08-1.30 [facility] Comment on above: Order Comment: Speci men Type: VENOUS BLOOD SPECIMENOrdering Facility: [facility] Address: [address] [place] [address] Performed By: #### 2 4344-4 ####[facility] LABCLIA [id number] [place] [address] [place] Carboxyhemoglobin (BldV) [Mass fraction] 1.7 % Normal 0.0-2.0 [facility] Comment on above: Order Comment: Speci men Type: VENOUS BLOOD SPECIMENOrdering Facility: [facility] Address: [address] [place] [address] Result Comment: Carb oxyhemoglobin Reference Range for Smokers: 2.0-8.0% Performed By: #### 2 4344-4 ####[facility] LABCLIA [id number] [place] [address] [place] CO2 (BldV) [Partial pressure] 41 mm[Hg] Low 42-55 [facility] Comment on above: Order Comment: Speci men Type: VENOUS BLOOD SPECIMENOrdering Facility: [facility] Address: [address] [place] [address] Performed By: #### 2 4344-4 ####[facility] LABCLIA [id number] [place] [address] [place] CO2 adjusted to patient's actual temperature (BldV) [Partial pressure] 41 mmHg Low 42-55 [facility] Comment on above: Order Comment: Speci men Type: VENOUS BLOOD SPECIMENOrdering Facility: [facility] Address: [address] [place] [address] Performed By: #### 2 4344-4 ####[facility] LABCLIA [id number] [place] [address] [place] FIO2 35 % Normal [facility] Comment on above: Order Comment: Speci men Type: VENOUS BLOOD SPECIMENOrdering Facility: [facility] Address: [address] [place] [address] Performed By: #### 2 4344-4 ####[facility] LABCLIA [id number] [place] [address] [place] Glucose [Mass/Vol] 98 mg/dL Normal 60-105 [facility] Comment on above: Order Comment: Speci men Type: VENOUS BLOOD SPECIMENOrdering Facility: [facility] Address: [address] [place] [address] Performed By: #### 2 4344-4 ####[facility] LABCLIA [id number] [place] [address] [place] HCO3 (Bld) [Moles/Vol] 27 mmol/L Normal 24-28 [facility] Comment on above: Order Comment: Speci men Type: VENOUS BLOOD SPECIMENOrdering Facility: [facility] Address: [address] [place] [address] Performed By: #### 2 4344-4 ####[facility] LABCLIA [id number] [place] [address] [place] Hematocrit (Bld) [Volume fraction] 30.0 % Low 39.0-51.0 [facility] Comment on above: Order Comment: Speci men Type: VENOUS BLOOD SPECIMENOrdering Facility: [facility] Address: [address] [place] [address] Performed By: #### 2 4344-4 ####[facility] LABIA [id number] [place] [address] [place] Hemoglobin (Bld) [Mass/Vol] 9.7 g/dL Low 13.0-17.0 [facility] Comment on above: Order Comment: Speci men Type: VENOUS BLOOD SPECIMENOrdering Facility: [facility] Address: [address] [place] [address] Performed By: #### 2 4344-4 ####[facility] LABCLIA [id number] [place] [address] [place] Lactate [Moles/Vol] 0.8 mmol/L Normal 0.5-2.2 [facility] Comment on above: Order Comment: Speci men Type: VENOUS BLOOD SPECIMENOrdering Facility: [facility] Address: [address] [place] [address] Performed By: #### 2 4344-4 ####[facility] LABIA [id number] [place] [address] [place] Methemoglobin (Bld) [Mass fraction] 1.1 % Normal 0.0-1.5 [facility] Comment on above: Order Comment: Speci men Type: VENOUS BLOOD SPECIMENOrdering Facility: [facility] Address: [address] [place] [id number] Performed By: #### 2 4344-4 ####[facility] LABCLIA [id number] [place] [id number] [place] O2 THERAPY Ventilator Normal [facility] Comment on above: Order Comment: Speci men Type: VENOUS BLOOD SPECIMENOrdering Facility: [facility] Address: [address] [place] [address] Performed By: #### 2 4344-4 ####[facility] LABCLIA [id number] [place] [id number] [place] Oxygen (BldV) [Partial pressure] 70 mm[Hg] High 35-45 [facility] Comment on above: Order Comment: Speci men Type: VENOUS BLOOD SPECIMENOrdering Facility: [facility] Address: [address] [place] [id number] Performed By: #### 2 4344-4 ####[facility] LABCLIA [id number] [place] [id number] [place] Oxygen adjusted to patient's actual temperature (BldV) [Partial pressure] 71 mmHg High 35-45 [facility] Comment on above: Order Comment: Speci men Type: VENOUS BLOOD SPECIMENOrdering Facility: [facility] Address: [address] [place] [id number] Performed By: #### 2 4344-4 ####[facility] LABCLIA [id number] [place] [id number] [place] Oxygen saturation in Venous blood 95 % High 60-85 [facility] Comment on above: Order Comment: Speci men Type: VENOUS BLOOD SPECIMENOrdering Facility: [facility] Address: [address] [place] [id number] Performed By: #### 2 4344-4 ####[facility] LABCLIA [id number] [place] [address] [place] Oxyhemoglobin (BldV) [Mass fraction] 92 % High 60-85 [facility] Comment on above: Order Comment: Speci men Type: VENOUS BLOOD SPECIMENOrdering Facility: [facility] Address: [address] [place] [address] Performed By: #### 2 4344-4 ####[facility] LABCLIA [id number] [place] [address] [place] PEEP/CPAP 5 cmH2O Normal [facility] Comment on above: Order Comment: Speci men Type: VENOUS BLOOD SPECIMENOrdering Facility: [facility] Address: [address] [place] [address] Performed By: #### 2 4344-4 ####[facility] LABCLIA [id number] [place] [address] [place] pH (BldV) 7.44 [pH] High 7.32-7.42 [facility] Comment on above: Order Comment: Speci men Type: VENOUS BLOOD SPECIMENOrdering Facility: [facility] Address: [address] [place] [address] Performed By: #### 2 4344-4 ####[facility] LABCLIA [id number] [place] [address] [place] pH adjusted to patient's actual temperature (BldV) 7.43 High 7.32-7.42 [facility] Comment on above: Order Comment: Speci men Type: VENOUS BLOOD SPECIMENOrdering Facility: [facility] Address: [address] [place], [place] [address] Performed By: #### 2 4344-4 ####[facility] LABCLIA [id number] [place] [address] [place] Potassium [Moles/Vol] 4.3 mmol/L Normal 3.5-5.0 [facility] Comment on above: Order Comment: Speci men Type: VENOUS BLOOD SPECIMENOrdering Facility: [facility] Address: [address] [place] [address] Performed By: #### 2 4344-4 ####[facility] LABCLIA [id number] [place] [address] [place] Sodium [Moles/Vol] 143 mmol/L Normal 136-144 [facility] Comment on above: Order Comment: Speci men Type: VENOUS BLOOD SPECIMENOrdering Facility: [facility] Address: [address] [place] [address] Performed By: #### 2 4344-4 ####[facility] LABCLIA [id number] [place] [address] [place] NUTRITIONon 10-11-2023 NUTRITION Normal [facility] PTT, ANTICOAGULANT THERAPYon 10-11-2023 aPTT Coag (PPP) [Time] 24.9 s Normal 23.0-32.4 [facility] Comment on above: Order Comment: Speci men Type: BLOOD SPECIMENOrdering Facility: [facility] Address: [address] [place] [address] Performed By: #### P TTAC ####[facility] LABCLIA [id number] [place] [address] [place] aPTT Coag (PPP) [Time] 40.3 s High 23.0-32.4 [facility] Comment on above: Order Comment: Speci men Type: BLOOD SPECIMENOrdering Facility: [facility] Address: [address] [place] [address] Performed By: #### P TTAC ####[facility] LABCLIA [id number] [place] [address] [place] aPTT Coag (PPP) [Time] 35.6 s High 23.0-32.4 [facility] Comment on above: Order Comment: Speci men Type: BLOOD SPECIMENOrdering Facility: [facility] Address: [address] [place] [address] Performed By: #### P TTAC ####[facility] LABCLIA [id number] [place] [address] [place] THERAPY NTon 10-11-2023 THERAPY NT Normal [facility] THERAPY NT Normal [facility] aPTT PPPon 10-11-2023 aPTT Coag (PPP) [Time] 118.8 s High 23.0-32.4 [facility] Comment on above: Order Comment: Speci men Type: BLOOD SPECIMENOrdering Facility: [facility] Address: [address] [place] [address] Result Comment: Renata woo checked for clot.Result rechecked. Performed By: #### 1 4979-9 ####[facility] LABCLIA [id number] [place] [address] [place] BRIEF OP NOTon 10-10-2023 BRIEF OP NOT Normal [facility] Bacteria Bld Culton 10-10-19 24 Bacteria identified Cx Nom (Bld) CULTURE, BLOOD: No growth 5 days Normal [facility] Comment on above: Performed By: #### 6 00-7 ####[facility] LABCLIA [id number] [place] [address] [place] Bacteria identified Cx Nom (Bld) CULTURE, BLOOD: No growth 5 days Normal [facility] Comment on above: Performed By: #### 6 00-7 ####[facility] LABCLIA [id number] [place] [id number] [place] Bacteria Spec Resp Culton Bacteria identified Respiratory culture Nom (Unsp spec) Abnormal [facility] Comment on above: Performed By: #### 3 2355-0 ####[facility] LABCLIA [id number] [place] [address] [place] Bacteria Ur Culton 4 Bacteria identified Cx Nom (U) Abnormal [facility] Comment on above: Performed By: #### 6 30-4 ####[facility] LABCLIA [id number] [place] [address] [place] Bacteria Wnd Culton 10-10-19 24 Bacteria identified Cx Nom (Wound) Abnormal [facility] Comment on above: Performed By: #### 6 462-6 ####[facility] LABCLIA [id number] [place] [address] [place] CBC panel Auto (Bld)on 10-10 Erythrocyte distribution width (RBC) [Ratio] 18.0 % High 11.5-15.0 [facility] Comment on above: Order Comment: Speci men Type: BLOOD SPECIMENOrdering Facility: [facility] Address: [address] [place] [address] Performed By: #### 5 8410-2 ####[facility] LABIA [id number] [place] [address] [place] Hematocrit (Bld) [Volume fraction] 32.9 % Low 39.0-51.0 [facility] Comment on above: Order Comment: Speci men Type: BLOOD SPECIMENOrdering Facility: [facility] Address: [address] [place] [address] Performed By: #### 5 8410-2 ####[facility] LABCLIA [id number] [place] [address] [place] Hemoglobin (Bld) [Mass/Vol] 9.7 g/dL Low 13.0-17.0 [facility] Comment on above: Order Comment: Speci men Type: BLOOD SPECIMENOrdering Facility: [facility] Address: [address] [place] [address] Performed By: #### 5 8410-2 ####[facility] LABCLIA [id number] [address] [id number] [address] [place] MCH (RBC) [Entitic mass] 25.1 pg Low 26.0-34.0 [facility] Comment on above: Order Comment: Speci men Type: BLOOD SPECIMENOrdering Facility: [facility] Address: [address] [place] [address] Performed By: #### 5 8410-2 ####[facility] LABCLIA [id number] [place] [address] [place] MCHC (RBC) [Mass/Vol] 29.5 g/dL Low 30.5-36.0 [facility] Comment on above: Order Comment: Speci men Type: BLOOD SPECIMENOrdering Facility: [facility] Address: [address] [place] [address] Performed By: #### 5 8410-2 ####[facility] LABCLIA [id number] [place] [address] [place] MCV (RBC) [Entitic vol] 85.2 fL Normal 80.0-100.0 [facility] Comment on above: Order Comment: Speci men Type: BLOOD SPECIMENOrdering Facility: [facility] Address: [address] [place] [address] Performed By: #### 5 8410-2 ####[facility] LABIA [id number] [place] [address] [place] Nucleated RBC (Bld) [#/Vol] 10*3/uL Normal <0.01 [facility] Comment on above: Order Comment: Speci men Type: BLOOD SPECIMENOrdering Facility: [facility] Address: [address] [place] [address] Performed By: #### 5 8410-2 ####[facility] LABCLIA [id number] [place] [address] [place] Platelet mean volume (Bld) [Entitic vol] 11.2 fL Normal 9.0-12.7 [facility] Comment on above: Order Comment: Speci men Type: BLOOD SPECIMENOrdering Facility: [facility] Address: [address] [place] [address] Performed By: #### 5 8410-2 ####[facility] LABIA [id number] [address] [address] [place] Platelets (Bld) [#/Vol] 446 10*3/uL High 150-400 [facility] Comment on above: Order Comment: Speci men Type: BLOOD SPECIMENOrdering Facility: [facility] Address: [address] [place] [address] Performed By: #### 5 8410-2 ####[facility] LABIA [id number] [place] [address] [place] RBC (Bld) [#/Vol] 3.86 10*6/uL Low 4.20-6.00 [facility] Comment on above: Order Comment: Speci men Type: BLOOD SPECIMENOrdering Facility: [facility] Address: [address] [place] [address] Performed By: #### 5 8410-2 ####[facility] LABIA [id number] [place] [address] [place] WBC (Bld) [#/Vol] 10.27 10*3/uL Normal 3.70-11.00 [facility] Comment on above: Order Comment: Speci men Type: BLOOD SPECIMENOrdering Facility: [facility] Address: [address] [place] [address] Performed By: #### 5 8410-2 ####[facility] LABIA [id number] [place] [address] [place] CONFIRM BLOOD TYPEon 024 ABO A Normal [facility] Comment on above: Order Comment: Speci men Type: BLOOD SPECIMENOrdering Facility: [facility] Address: [address] [place] [address] Performed By: #### C ONABO ####[facility] BLOOD BANKCLIA [id number] [address] [address] [place] Rh Nom (Bld) Positive Normal [facility] Comment on above: Order Comment: Speci men Type: BLOOD SPECIMENOrdering Facility: [facility] Address: [address] [place] [address] Performed By: #### C ONABO ####[facility] BLOOD BANKCLIA [id number] [place] [address] [place] CONSULTon 10-10-2023 CONSULT Normal [facility] CONSULT Normal [facility] CONSULT PROGon 10-10-2023 CONSULT PROG Normal [facility] CONSULT PROG Normal [facility] Comprehensive metabolic 2000 panelon 10-10-2023 Albumin [Mass/Vol] 3.0 g/dL Low 3.9-4.9 [facility] Comment on above: Order Comment: Speci men Type: BLOOD SPECIMENOrdering Facility: [facility] Address: [address] [place] [address] Performed By: #### 2 4323-8, HSTNT ####[facility] LABCLIA [id number] [place] [address] [place] ALP [Catalytic activity/Vol] 295 U/L High 38-113 [facility] Comment on above: Order Comment: Speci men Type: BLOOD SPECIMENOrdering Facility: [facility] Address: [address] [place] [address] Performed By: #### 2 4323-8, HSTNT ####[facility] LABCLIA [id number] [place] [address] [place] ALT [Catalytic activity/Vol] 38 U/L Normal 10-54 [facility] Comment on above: Order Comment: Speci men Type: BLOOD SPECIMENOrdering Facility: [facility] Address: [address] [place] [address] Performed By: #### 2 4323-8, HSTNT ####[facility] LABCLIA [id number] [place] [address] [place] Anion gap [Moles/Vol] 14 mmol/L Normal 9-18 [facility] Comment on above: Order Comment: Speci men Type: BLOOD SPECIMENOrdering Facility: [facility] Address: [address] [place] [address] Performed By: #### 2 4323-8, HSTNT ####[facility] LABCLIA [id number] [place] [address] [place] AST [Catalytic activity/Vol] 26 U/L Normal 14-40 [facility] Comment on above: Order Comment: Speci men Type: BLOOD SPECIMENOrdering Facility: [facility] Address: [address] [place] [address] Performed By: #### 2 4323-8, HSTNT ####[facility] LABCLIA [id number] [place] [address] [place] Bilirubin [Mass/Vol] 0.5 mg/dL Normal 0.2-1.3 [facility] Comment on above: Order Comment: Speci men Type: BLOOD SPECIMENOrdering Facility: [facility] Address: [address] [place] [address] Performed By: #### 2 4323-8, HSTNT ####[facility] LABIA [id number] [place] [address] [place] Calcium [Mass/Vol] 9.4 mg/dL Normal 8.5-10.2 [facility] Comment on above: Order Comment: Speci men Type: BLOOD SPECIMENOrdering Facility: [facility] Address: [address] [place] [address] Performed By: #### 2 4323-8, HSTNT ####[facility] LABCLIA [id number] [place] [address] [place] Chloride [Moles/Vol] 106 mmol/L High 97-105 [facility] Comment on above: Order Comment: Speci men Type: BLOOD SPECIMENOrdering Facility: [facility] Address: [address] [place] [address] Performed By: #### 2 4323-8, HSTNT ####[facility] LABCLIA [id number] [place] [address] [place] CO2 [Moles/Vol] 25 mmol/L Normal 22-30 [facility] Comment on above: Order Comment: Speci men Type: BLOOD SPECIMENOrdering Facility: [facility] Address: [address] [place] [address] Performed By: #### 2 4323-8, HSTNT ####[facility] LABCLIA [id number] [place] [address] [place] Creatinine [Mass/Vol] 0.51 mg/dL Low 0.73-1.22 [facility] Comment on above: Order Comment: Speci men Type: BLOOD SPECIMENOrdering Facility: [facility] Address: [address] [place] [address] Performed By: #### 2 4323-8, HSTNT ####[facility] LABIA [id number] [place] [address] [place] Creatinine and Glomerular filtration rate.predicted panel (S/P/Bld) 132 mL/min/1.73m??? Normal >=60 [facility] Comment on above: Order Comment: Speci men Type: BLOOD SPECIMENOrdering Facility: [facility] Address: [address] [place] [address] Result Comment: Rae mated Glomerular Filtration Rate [...] actual GFR. Performed By: #### 2 4323-8, HSTNT ####[facility] LABCLIA [id number] [place] [address] [place] Glucose [Mass/Vol] 83 mg/dL Normal 74-99 [facility] Comment on above: Order Comment: Speci men Type: BLOOD SPECIMENOrdering Facility: [facility] Address: [address] [place] [address] Result Comment: The [place] [employer] (ADA) provides guidance for cutoff [...] Standards of Medical Care in Diabetes 2016, [place] [employer]. Diabetes Care. 2016.39(Suppl 1). Performed By: #### 2 4323-8, HSTNT ####[facility] LABIA [id number] [place] [address] [place] Potassium [Moles/Vol] 3.7 mmol/L Normal 3.7-5.1 [facility] Comment on above: Order Comment: Speci men Type: BLOOD SPECIMENOrdering Facility: [facility] Address: [address] [place] [address] Performed By: #### 2 4323-8, HSTNT ####[facility] LABIA [id number] [place] [address] [place] Protein [Mass/Vol] 6.3 g/dL Normal 6.3-8.0 [facility] Comment on above: Order Comment: Speci men Type: BLOOD SPECIMENOrdering Facility: [facility] Address: [address] [place] [address] Performed By: #### 2 4323-8, HSTNT ####[facility] LABCLIA [id number] [place] [address] [place] Sodium [Moles/Vol] 145 mmol/L High 136-144 [facility] Comment on above: Order Comment: Speci men Type: BLOOD SPECIMENOrdering Facility: [facility] Address: [address] [place] [address] Performed By: #### 2 4323-8, HSTNT ####[facility] LABCLIA [id number] [place] [address] [place] Urea nitrogen [Mass/Vol] 12 mg/dL Normal 9-24 [facility] Comment on above: Order Comment: Speci men Type: BLOOD SPECIMENOrdering Facility: [facility] Address: [address] [place] [address] Performed By: #### 2 4323-8, HSTNT ####[facility] LABCLIA [id number] [place] [address] [place] ECG COMPLETEon 10-10-2023 ECG COMPLETE Normal [facility] Gas and Carbon monoxide pane l (BldV)on 10-10-2023 Base excess Calc (BldV) [Moles/Vol] 4 mmol/L High 0-2 [facility] Comment on above: Order Comment: Speci men Type: VENOUS BLOOD SPECIMENOrdering Facility: [facility] Address: [address] [place] [address] Performed By: #### 2 4344-4 ####[facility] LABCLIA [id number] [place] [address] [place] Body temperature 99.32 [degF] Normal [facility] Comment on above: Order Comment: Speci men Type: VENOUS BLOOD SPECIMENOrdering Facility: [facility] Address: [address] [place] [address] Performed By: #### 2 4344-4 ####[facility] LABCLIA [id number] [place] [address] [place] Calcium.ionized (Bld) [Mass/Vol] 1.26 mmol/L Normal 1.08-1.30 [facility] Comment on above: Order Comment: Speci men Type: VENOUS BLOOD SPECIMENOrdering Facility: [facility] Address: [address] [place] [address] Performed By: #### 2 4344-4 ####[facility] LABIA [id number] [place] [address] [place] Calcium.ionized adjusted to pH 7.4 (BldA) [Moles/Vol] 1.32 mmol/L High 1.08-1.30 [facility] Comment on above: Order Comment: Speci men Type: VENOUS BLOOD SPECIMENOrdering Facility: [facility] Address: [address] [place] [address] Performed By: #### 2 4344-4 ####[facility] [id number] [place] [address] [place] Carboxyhemoglobin (BldV) [Mass fraction] 2.2 % High 0.0-2.0 [facility] Comment on above: Order Comment: Speci men Type: VENOUS BLOOD SPECIMENOrdering Facility: [facility] Address: [address] [place] [address] Result Comment: Carb oxyhemoglobin Reference Range for Smokers: 2.0-8.0% Performed By: #### 2 4344-4 ####[facility] LABIA [id number] [place] [address] [place] CO2 (BldV) [Partial pressure] 36 mm[Hg] Low 42-55 [facility] Comment on above: Order Comment: Speci men Type: VENOUS BLOOD SPECIMENOrdering Facility: [facility] Address: [address] [place] [address] Performed By: #### 2 4344-4 ####[facility] LABIA [id number] [place] [address] [place] CO2 adjusted to patient's actual temperature (BldV) [Partial pressure] 37 mmHg Low 42-55 [facility] Comment on above: Order Comment: Speci men Type: VENOUS BLOOD SPECIMENOrdering Facility: [facility] Address: [address] [place] [address] Performed By: #### 2 4344-4 ####[facility] LABCLIA [id number] [place] [address] [place] FIO2 40 % Normal [facility] Comment on above: Order Comment: Speci men Type: VENOUS BLOOD SPECIMENOrdering Facility: [facility] Address: [address] [place] [address] Performed By: #### 2 4344-4 ####[facility] LABCLIA [id number] [place] [address] [place] Glucose [Mass/Vol] 87 mg/dL Normal 60-105 [facility] Comment on above: Order Comment: Speci men Type: VENOUS BLOOD SPECIMENOrdering Facility: [facility] Address: [address] [place] [address] Performed By: #### 2 4344-4 ####[facility] LABCLIA [id number] [place] [address] [place] HCO3 (Bld) [Moles/Vol] 27 mmol/L Normal 24-28 [facility] Comment on above: Order Comment: Speci men Type: VENOUS BLOOD SPECIMENOrdering Facility: [facility] Address: [address] [place] [address] Performed By: #### 2 4344-4 ####[facility] LABCLIA [id number] [place] [address] [place] Hematocrit (Bld) [Volume fraction] 30.0 % Low 39.0-51.0 [facility] Comment on above: Order Comment: Speci men Type: VENOUS BLOOD SPECIMENOrdering Facility: [facility] Address: [address] [place] [address] Performed By: #### 2 4344-4 ####[facility] LABCLIA [id number] [address] [place] Hemoglobin (Bld) [Mass/Vol] 9.7 g/dL Low 13.0-17.0 [facility] Comment on above: Order Comment: Speci men Type: VENOUS BLOOD SPECIMENOrdering Facility: [facility] Address: [address] [place] [address] Performed By: #### 2 4344-4 ####[facility] LABCLIA [id number] [place] [address] [place] Lactate [Moles/Vol] 0.8 mmol/L Normal 0.5-2.2 [facility] Comment on above: Order Comment: Speci men Type: VENOUS BLOOD SPECIMENOrdering Facility: [facility] Address: [address] [place] [address] Performed By: #### 2 4344-4 ####[facility] LABIA [id number] [place] [address] [place] Methemoglobin (Bld) [Mass fraction] 0.9 % Normal 0.0-1.5 [facility] Comment on above: Order Comment: Speci men Type: VENOUS BLOOD SPECIMENOrdering Facility: [facility] Address: [address] [place] [address] Performed By: #### 2 4344-4 ####[facility] LABCLIA [id number] [place] [address] [place] O2 THERAPY Ventilator Normal [facility] Comment on above: Order Comment: Speci men Type: VENOUS BLOOD SPECIMENOrdering Facility: [facility] Address: [address] [place] [address] Performed By: #### 2 4344-4 ####[facility] LABCLIA [id number] [address] [id number], [place] [address] [place] Oxygen (BldV) [Partial pressure] 56 mm[Hg] High 35-45 [facility] Comment on above: Order Comment: Speci men Type: VENOUS BLOOD SPECIMENOrdering Facility: [facility] Address: [address] [place] [address] Performed By: #### 2 4344-4 ####[facility] LABCLIA [id number] [address] [address] [place] Oxygen adjusted to patient's actual temperature (BldV) [Partial pressure] 57 mmHg High 35-45 [facility] Comment on above: Order Comment: Speci men Type: VENOUS BLOOD SPECIMENOrdering Facility: [facility] Address: [address] [place] [address] Performed By: #### 2 4344-4 ####[facility] LABCLIA [id number] [place] [address] [place] Oxygen saturation in Venous blood 90 % High 60-85 [facility] Comment on above: Order Comment: Speci men Type: VENOUS BLOOD SPECIMENOrdering Facility: [facility] Address: [address] [place] [address] Performed By: #### 2 4344-4 ####[facility] LABCLIA [id number] [place] [address] [place] Oxyhemoglobin (BldV) [Mass fraction] 87 % High 60-85 [facility] Comment on above: Order Comment: Speci men Type: VENOUS BLOOD SPECIMENOrdering Facility: [facility] Address: [address] [place] [address] Performed By: #### 2 4344-4 ####[facility] LABCLIA [id number] [place] [address] [place] PEEP/CPAP 5 cmH2O Normal [facility] Comment on above: Order Comment: Speci men Type: VENOUS BLOOD SPECIMENOrdering Facility: [facility] Address: [address] [place] [address] Performed By: #### 2 4344-4 ####[facility] LABCLIA [id number] [place] [address] [place] pH (BldV) 7.49 [pH] High 7.32-7.42 [facility] Comment on above: Order Comment: Speci men Type: VENOUS BLOOD SPECIMENOrdering Facility: [facility] Address: [address] [place] [address] Performed By: #### 2 4344-4 ####[facility] LABIA [id number] [place] [address] [place] pH adjusted to patient's actual temperature (BldV) 7.48 High 7.32-7.42 [facility] Comment on above: Order Comment: Speci men Type: VENOUS BLOOD SPECIMENOrdering Facility: [facility] Address: [address] [place] [address] Performed By: #### 2 4344-4 ####[facility] LABIA [id number] [place] [address] [place] Potassium [Moles/Vol] 3.2 mmol/L Low 3.5-5.0 [facility] Comment on above: Order Comment: Speci men Type: VENOUS BLOOD SPECIMENOrdering Facility: [facility] Address: [address] [place] [address] Performed By: #### 2 4344-4 ####[facility] LABIA [id number] [place] [address] [place] Sodium [Moles/Vol] 145 mmol/L High 136-144 [facility] Comment on above: Order Comment: Speci men Type: VENOUS BLOOD SPECIMENOrdering Facility: [facility] Address: [address] [place] [address] Performed By: #### 2 4344-4 ####[facility] LABIA [id number] [place] [address] [place] Base excess Calc (BldV) [Moles/Vol] 5 mmol/L High 0-2 [facility] Comment on above: Order Comment: Speci men Type: VENOUS BLOOD SPECIMENOrdering Facility: [facility] Address: [address] [place] [address] Performed By: #### 2 4344-4 ####[facility] LABIA [id number] [place] [address] [place] Body temperature 99.32 [degF] Normal [facility] Comment on above: Order Comment: Speci men Type: VENOUS BLOOD SPECIMENOrdering Facility: [facility] Address: [address] [place] [address] Performed By: #### 2 4344-4 ####[facility] LABIA [id number] [place] [address] [place] Calcium.ionized (Bld) [Mass/Vol] 1.25 mmol/L Normal 1.08-1.30 [facility] Comment on above: Order Comment: Speci men Type: VENOUS BLOOD SPECIMENOrdering Facility: [facility] Address: [address] [place] [address] Performed By: #### 2 4344-4 ####[facility] LABIA [id number] [place] [address] [place] Calcium.ionized adjusted to pH 7.4 (BldA) [Moles/Vol] 1.32 mmol/L High 1.08-1.30 [facility] Comment on above: Order Comment: Speci men Type: VENOUS BLOOD SPECIMENOrdering Facility: [facility] Address: [address] [place] [address] Performed By: #### 2 4344-4 ####[facility] LABIA [id number] [place] [address] [place] Carboxyhemoglobin (BldV) [Mass fraction] 1.2 % Normal 0.0-2.0 [facility] Comment on above: Order Comment: Speci men Type: VENOUS BLOOD SPECIMENOrdering Facility: [facility] Address: [address] [place] [address] Result Comment: Carb oxyhemoglobin Reference Range for Smokers: 2.0-8.0% Performed By: #### 2 4344-4 ####[facility] LABCLIA [id number] [address] [address] [place] CO2 (BldV) [Partial pressure] 36 mm[Hg] Low 42-55 [facility] Comment on above: Order Comment: Speci men Type: VENOUS BLOOD SPECIMENOrdering Facility: [facility] Address: [address] [place] [address] Performed By: #### 2 4344-4 ####[facility] LABCLIA [id number] [place] [address] [place] CO2 adjusted to patient's actual temperature (BldV) [Partial pressure] 36 mmHg Low 42-55 [facility] Comment on above: Order Comment: Speci men Type: VENOUS BLOOD SPECIMENOrdering Facility: [facility] Address: [address] [place] [address] Performed By: #### 2 4344-4 ####[facility] LABCLIA [id number] [place] [address] [place] FIO2 40 % Normal [facility] Comment on above: Order Comment: Speci men Type: VENOUS BLOOD SPECIMENOrdering Facility: [facility] Address: [address] [place] [address] Performed By: #### 2 4344-4 ####[facility] LABCLIA [id number] [place] [address] [place] Glucose [Mass/Vol] 87 mg/dL Normal 60-105 [facility] Comment on above: Order Comment: Speci men Type: VENOUS BLOOD SPECIMENOrdering Facility: [facility] Address: [address] [place], [place] [address] Performed By: #### 2 4344-4 ####[facility] LABCLIA [id number] [place] [address] [place] HCO3 (Bld) [Moles/Vol] 28 mmol/L Normal 24-28 [facility] Comment on above: Order Comment: Speci men Type: VENOUS BLOOD SPECIMENOrdering Facility: [facility] Address: [address] [place] [address] Performed By: #### 2 4344-4 ####[facility] LABCLIA [id number] [place] [address] [place] Hematocrit (Bld) [Volume fraction] 30.6 % Low 39.0-51.0 [facility] Comment on above: Order Comment: Speci men Type: VENOUS BLOOD SPECIMENOrdering Facility: [facility] Address: [address] [place] [address] Performed By: #### 2 4344-4 ####[facility] LABIA [id number] [place] [address] [place] Hemoglobin (Bld) [Mass/Vol] 9.9 g/dL Low 13.0-17.0 [facility] Comment on above: Order Comment: Speci men Type: VENOUS BLOOD SPECIMENOrdering Facility: [facility] Address: [address] [place] [address] Performed By: #### 2 4344-4 ####[facility] LABIA [id number] [place] [address] [place] Lactate [Moles/Vol] 1.1 mmol/L Normal 0.5-2.2 [facility] Comment on above: Order Comment: Speci men Type: VENOUS BLOOD SPECIMENOrdering Facility: [facility] Address: [address] [place] [address] Performed By: #### 2 4344-4 ####[facility] LABCLIA [id number] [place] [address] [place] Methemoglobin (Bld) [Mass fraction] 0.9 % Normal 0.0-1.5 [facility] Comment on above: Order Comment: Speci men Type: VENOUS BLOOD SPECIMENOrdering Facility: [facility] Address: [address] [place] [id number] Performed By: #### 2 4344-4 ####[facility] LABCLIA [id number] [address] [address] [place] O2 THERAPY Ventilator Normal [facility] Comment on above: Order Comment: Speci men Type: VENOUS BLOOD SPECIMENOrdering Facility: [facility] Address: [address] [place] [address] Performed By: #### 2 4344-4 ####[facility] LABCLIA [id number] [place] [address] [place] Oxygen (BldV) [Partial pressure] 60 mm[Hg] High 35-45 [facility] Comment on above: Order Comment: Speci men Type: VENOUS BLOOD SPECIMENOrdering Facility: [facility] Address: [address] [place], [place] [address] Performed By: #### 2 4344-4 ####[facility] LABCLIA [id number] [place] [address] [place] Oxygen adjusted to patient's actual temperature (BldV) [Partial pressure] 61 mmHg High 35-45 [facility] Comment on above: Order Comment: Speci men Type: VENOUS BLOOD SPECIMENOrdering Facility: [facility] Address: [address] [place], [place] [address] Performed By: #### 2 4344-4 ####[facility] LABCLIA [id number] [place] [id number] [place] Oxygen saturation in Venous blood 91 % High 60-85 [facility] Comment on above: Order Comment: Speci men Type: VENOUS BLOOD SPECIMENOrdering Facility: [facility] Address: [address] [place], [place] [address] Performed By: #### 2 4344-4 ####[facility] LABCLIA [id number] [place] [address] [place] Oxyhemoglobin (BldV) [Mass fraction] 89 % High 60-85 [facility] Comment on above: Order Comment: Speci men Type: VENOUS BLOOD SPECIMENOrdering Facility: [facility] Address: [address] [place] [address] Performed By: #### 2 4344-4 ####[facility] LABCLIA [id number] [place] [address] [place] PEEP/CPAP 5 cmH2O Normal [facility] Comment on above: Order Comment: Speci men Type: VENOUS BLOOD SPECIMENOrdering Facility: [facility] Address: [address] [place] [address] Performed By: #### 2 4344-4 ####[facility] LABCLIA [id number] [place] [address] [place] pH (BldV) 7.50 [pH] High 7.32-7.42 [facility] Comment on above: Order Comment: Speci men Type: VENOUS BLOOD SPECIMENOrdering Facility: [facility] Address: [address] [place] [address] Performed By: #### 2 4344-4 ####[facility] LABCLIA [id number] [place] [address] [place] pH adjusted to patient's actual temperature (BldV) 7.50 High 7.32-7.42 [facility] Comment on above: Order Comment: Speci men Type: VENOUS BLOOD SPECIMENOrdering Facility: [facility] Address: [address] [place], [place] [address] Performed By: #### 2 4344-4 ####[facility] LABCLIA [id number] [place] [address] [place] Potassium [Moles/Vol] 3.5 mmol/L Normal 3.5-5.0 [facility] Comment on above: Order Comment: Speci men Type: VENOUS BLOOD SPECIMENOrdering Facility: [facility] Address: [address] [place] [address] Performed By: #### 2 4344-4 ####[facility] LABCLIA [id number] [place] [address] [place] Sodium [Moles/Vol] 145 mmol/L High 136-144 [facility] Comment on above: Order Comment: Gabrielai men Type: VENOUS BLOOD SPECIMENOrdering Facility: [facility] Address: [address] [place] [address] Performed By: #### 2 4344-4 ####[facility] LABIA [id number] [place] [address] [place] HIGH SENSITIVITY TROPONIN To n 10-10-2023 Troponin T.cardiac High sensitivity method [Mass/Vol] 66 ng/L High <12 [facility] Comment on above: Order Comment: Darwin karishma Type: BLOOD SPECIMENOrdering Facility: [facility] Address: [address] [place] [address] Result Comment: When assessing risk for acute [...] day MACE. Performed By: #### H STNT ####[facility] LABIA [id number] [place] [address] [place] Troponin T.cardiac High sensitivity method [Mass/Vol] 66 ng/L High <12 [facility] Comment on above: Order Comment: Gabrieladominic schwarz Type: BLOOD SPECIMENOrdering Facility: [facility] Address: [address] [place] [address] Result Comment: When assessing risk for acute [...] for 30 day MACE. Performed By: #### 2 4323-8, HSTNT ####[facility] LABCLIA [id number] [address] [place] HISTORY PHYSICALon HISTORY PHYSICAL Normal [facility] IR PERC KWASI EXISTING ACCES Son 10-10-2023 IR PERC KWASI EXISTING ACCESS Normal [facility] PT EDon 10-10-2023 PT ED Normal [facility] PT panel Coag (PPP)on 2023 INR Coag (PPP) [Relative time] 1.1 {INR} Normal 0.9-1.3 [facility] Comment on above: Order Comment: Speci men Type: BLOOD SPECIMENOrdering Facility: [facility] Address: [address] [place] [address] Result Comment: Edilma min K Antagonist (VKA) Therapeutic Range: INR 2 to 3 (Target INR of 2.5)Note: For patients treated with VKA drugs, such as warfarin, the [place] [employer] 2012 Guideline recommends [...] of 2.5 to 3.5 (target INR of 3).Holger GH, et al. Chest 2012, 141:7S-47SNishimura RA, et al. JAC 2017, 70: 252-289 Performed By: #### 3 4528-0, 56865-2 ####[facility] LABCLIA [id number] [address] [place] PT Coag (PPP) [Time] 12.0 s Normal 9.7-13.0 [facility] Comment on above: Order Comment: Speci men Type: BLOOD SPECIMENOrdering Facility: [facility] Address: [address] [place] [address] Performed By: #### 3 4528-0, 32602-4 ####[facility] LABCLIA [id number] [place] [address] [place] PTT, ANTICOAGULANT THERAPYon 10-10-2023 aPTT Coag (PPP) [Time] 28.6 s Normal 23.0-32.4 [facility] Comment on above: Order Comment: Speci men Type: BLOOD SPECIMENOrdering Facility: [facility] Address: [address] [place] [address] Performed By: #### P TTAC ####[facility] LABCLIA [id number] [place] [address] [place] STAPH AUREUS PCRon S. aureus and MRSA panel COMPA+probe (Nose) Normal Negative [facility] Comment on above: Order Comment: Speci men Type: SWAB OF INTERNAL NOSEOrdering Facility: [facility] Address: [address] [place] [address] Result Comment: Nega tive for Staphylococcus aureus by PCR.Negative for MRSA by PCR Performed By: #### S APCR ####[facility] LABCLIA [id number] [place] [address] [place] TYPE + SCREENon 10-10-2023 ABO A Normal [facility] Comment on above: Order Comment: Speci men Type: BLOOD SPECIMENOrdering Facility: [facility] Address: [address] [place] [address] Performed By: #### T SCR ####[facility] BLOOD BANKCLIA [id number] [place] [address] [place] HISTORICAL AB SCR STATUS Negative Normal [facility] Comment on above: Order Comment: Speci men Type: BLOOD SPECIMENOrdering Facility: [facility] Address: [address] [place] [address] Performed By: #### T SCR ####[facility] BLOOD BANKCLIA [id number] [place] [address] [place] Rh Nom (Bld) Positive Normal [facility] Comment on above: Order Comment: Speci men Type: BLOOD SPECIMENOrdering Facility: [facility] Address: [address] [place] [address] Performed By: #### T SCR ####[facility] BLOOD BANKIA [id number] [place] [address] [place] [facility] TYPE AND SCREEN EXPIRATION 10/12/2023 23:59 Normal [facility] Comment on above: Order Comment: Speci men Type: BLOOD SPECIMENOrdering Facility: [facility] Address: [address] [place] [address] Performed By: #### T SCR ####[facility] BLOOD BANKIA [id number] [place] [address] [place] URINALYSIS, REFLEX MICROSCOP ICon 10-10-2023 BACTERIA UL >9821 High Negative [facility] Comment on above: Order Comment: Speci men Type: URINE SPECIMENOrdering Facility: [facility] Address: [address] [place] [address] Performed By: #### L [id number] ####[facility] LABCLIA [id number] [place] [address] [place] Bilirubin Ql (U) 1+ Abnormal Negative [facility] Comment on above: Order Comment: Speci men Type: URINE SPECIMENOrdering Facility: [facility] Address: [address] [place] [address] Result Comment: Sugg est correlation with clinical findings and serum bilirubin if clinically indicated. Performed By: #### L [id number] ####[facility] LABCLIA [id number] [place] [address] [place] CALCIUM OXALATE CRYSTALS (UA) Few Abnormal None Seen [facility] Comment on above: Order Comment: Speci men Type: URINE SPECIMENOrdering Facility: [facility] Address: [address] [place] [address] Performed By: #### L [id number] ####[facility] LABCLIA [id number] [place] [address] [place] Clarity (Unsp spec) Turbid Abnormal Clear [facility] Comment on above: Order Comment: Speci men Type: URINE SPECIMENOrdering Facility: [facility] Address: [address] [place] [address] Performed By: #### L [id number] ####[facility] LABCLIA [id number] [place] [address] [place] Color (U) Dark Yellow Abnormal Yellow [facility] Comment on above: Order Comment: Speci men Type: URINE SPECIMENOrdering Facility: [facility] Address: [address] [place] [address] Performed By: #### L [id number] ####[facility] LABCLIA [id number] [place] [address] [place] Epithelial cells LM.HPF (Urine sed) [#/Area] None Seen Normal [facility] Comment on above: Order Comment: Speci men Type: URINE SPECIMENOrdering Facility: [facility] Address: [address] [place] [address] Performed By: #### L [id number] ####[facility] LABCLIA [id number] [place] [address] [place] Glucose Test strip (U) [Mass/Vol] Negative Normal Negative [facility] Comment on above: Order Comment: Speci men Type: URINE SPECIMENOrdering Facility: [facility] Address: [address] [place] [address] Performed By: #### L [id number] ####[facility] LABCLIA [id number] [place] [address] [place] Hemoglobin Ql (U) 3+ Abnormal Negative [facility] Comment on above: Order Comment: Speci men Type: URINE SPECIMENOrdering Facility: [facility] Address: [address] [place] [address] Performed By: #### L [id number] ####[facility] LABCLIA [id number] [place] [address] [place] Hyaline casts (Urine sed) [#/Area] 4-10 /LPF Abnormal 0 /LPF [facility] Comment on above: Order Comment: Speci men Type: URINE SPECIMENOrdering Facility: [facility] Address: [address] [place] [address] Performed By: #### L [id number] ####[facility] LABCLIA [id number] [place] [address] [place] Ketones Ql (U) 2+ Abnormal Negative [facility] Comment on above: Order Comment: Speci men Type: URINE SPECIMENOrdering Facility: [facility] Address: [address] [place] [address] Performed By: #### L [id number] ####[facility] LABCLIA [id number] [place] [address] [place] Leukocyte esterase Test strip Ql (U) 1+ Abnormal Negative [facility] Comment on above: Order Comment: Speci men Type: URINE SPECIMENOrdering Facility: [facility] Address: [address] [place] [address] Performed By: #### L [id number] ####[facility] LABCLIA [id number] [place] [address] [place] Nitrite Ql (U) Positive Abnormal Negative [facility] Comment on above: Order Comment: Speci men Type: URINE SPECIMENOrdering Facility: [facility] Address: [address] [place] [address] Performed By: #### L [id number] ####[facility] LABCLIA [id number] [place] [address] [place] pH (U) 5.5 [pH] Normal <8.5 [facility] Comment on above: Order Comment: Speci men Type: URINE SPECIMENOrdering Facility: [facility] Address: [address] [place] [address] Performed By: #### L [id number] ####[facility] LABIA [id number] [place] [address] [place] Protein (U) [Mass/Vol] 1+ Abnormal Negative [facility] Comment on above: Order Comment: Speci men Type: URINE SPECIMENOrdering Facility: [facility] Address: [address] [place] [address] Performed By: #### L [id number] ####[facility] [id number] [place] [address] [place] RBC LM.HPF (Urine sed) [#/Area] /[HPF] Abnormal 0-2 /HPF [facility] Comment on above: Order Comment: Speci men Type: URINE SPECIMENOrdering Facility: [facility] Address: [address] [place] [address] Performed By: #### L [id number] ####[facility] LABIA [id number] [place] [address] [place] Specific gravity (U) [Rel density] 1.037 High 1.005-1.030 [facility] Comment on above: Order Comment: Speci men Type: URINE SPECIMENOrdering Facility: [facility] Address: [address] [place] [address] Performed By: #### L [id number] ####[facility] LABIA [id number] [place] [address] [place] Urobilinogen Ql (U) 1.0 EU/dL Normal 0.2-1.0 EU/dL [facility] Comment on above: Order Comment: Speci men Type: URINE SPECIMENOrdering Facility: [facility] Address: [address] [place] [address] Performed By: #### L [id number] ####[facility] LABCLIA [id number] [place] [address] [place] WBC LM.HPF (Urine sed) [#/Area] /[HPF] Abnormal 0-5 /HPF [facility] Comment on above: Order Comment: Speci men Type: URINE SPECIMENOrdering Facility: [facility] Address: [address] [place] [address] Performed By: #### L [id number] ####[facility] LABCLIA [id number] [place] [address] [place] US ABD RIGHT UPPER QUADRANTo n 10-10-2023 US ABD RIGHT UPPER QUADRANT Normal [facility] XR ABDOMEN 1V SUPINEon 10-10 XR ABDOMEN 1V SUPINE [facility] XR CHEST 1V FRONTAL PORTon 0 10-10-2023 XR CHEST 1V FRONTAL PORT Normal [facility] aPTT PPPon 10-10-2023 aPTT Coag (PPP) [Time] 47.7 s High 23.0-32.4 [facility] Comment on above: Order Comment: Speci men Type: BLOOD SPECIMENOrdering Facility: [facility] Address: [address] [place] [address] Performed By: #### 1 4979-9 ####[facility] LABCLIA [id number] [place] [address] [place] aPTT Coag (PPP) [Time] 24.9 s Normal 23.0-32.4 [facility] Comment on above: Order Comment: Speci men Type: BLOOD SPECIMENOrdering Facility: [facility] Address: [address] [place] [address] Performed By: #### 3 4528-0, 34551-8 ####[facility] LABCLIA [id number] [address] [place] [address] [place] HISTORY PHYSICALon HISTORY PHYSICAL Normal [facility] SARS/FLU A+B/RSV by NAAT/Mol ecularon 10-09-2023 [...] operators who are performing tests using either [employer] or [employer] systems and is limited to laboratories that [...] specimen repeat. Fact Sheet for Healthcare Providers: https://www.fda.gov/me tasha/756885/download Fact Sheet for Patients: https://www.fda.gov/ms tasha/263217/download Normal [facility] Comment on above: Performed By: #### C BCA, CMP, 3040-3, 23252-1, 13161-4, 84915- 9, 94933-9, PINR, [id number] #### [facility] ([id number]) [address] [place] [address] BLOOD CULTUREon 10-08-2023 Bacteria identified Aer cx Nom (Bld) SPECIMEN NOTES RAC CULTURE RESULTS NO GROWTH 5 DAYS Normal [facility] Comment on above: Performed By: #### C BCA, CMP, 3040-3, 44172-5, 64801-7, 10115- 9, 15079-2, PINR, [id number] #### [facility] ([id number]) [address] [place] [address] Bacteria identified Aer cx Nom (Bld) SPECIMEN NOTES LAC CULTURE RESULTS NO GROWTH 5 DAYS Normal [facility] Comment on above: Performed By: #### C BCA, CMP, 3040-3, 59512-0, 61513-9, 85790- 9, 94380-4, PINR, [id number] #### [facility] ([id number]) [address] [place] [address] [place] [address] CBC AND AUTO DIFFon 10-08-19 24 ABSOLUTE BASOPHIL 0.1 X10E9/L Normal 0.0-0.2 [facility] Comment on above: Performed By: #### C BCA, CMP, 3040-3, 91599-3, 55827-9, 26560- 9, 58692-7, PINR, [id number] #### [facility] ([id number]) [address] [place] [address] ABSOLUTE NEUTROPHIL 7.8 X10E9/L High 1.5-6.6 [facility] Comment on above: Performed By: #### C BCA, CMP, 3040-3, 78779-9, 96541-6, 25851- 9, 84466-0, PINR, [id number] #### [facility] ([id number]) [address] [place] [address] Basophils/100 WBC (Bld) 0.9 % Normal [facility] Comment on above: Performed By: #### C BCA, CMP, 3040-3, 64386-1, 33461-1, 36034- 9, 84536-5, PINR, [id number] #### [facility] ([id number]) [address] [place] [address] 19692 Eosinophils (Bld) [#/Vol] 0.3 10*3/uL Normal 0.0-0.4 [facility] Comment on above: Performed By: #### C BCA, CMP, 3040-3, 39484-4, 04585-8, 92479- 9, 58079-0, PINR, [id number] #### [facility] ([id number]) [address] [place] [address]8399 Eosinophils/100 WBC (Bld) 2.8 % Normal [facility] Comment on above: Performed By: #### C BCA, CMP, 3040-3, 31571-5, 45611-3, 53026- 9, 10191-9, PINR, [id number] #### [facility] ([id number]) [address] [place] [address] Erythrocyte distribution width (RBC) [Ratio] 20.1 % High 11.5-15.0 [facility] Comment on above: Performed By: #### C BCA, CMP, 3040-3, 49833-6, 61347-3, 55667- 9, 48529-0, PINR, [id number] #### [facility] [facility] ([id number]) [address] [place] [address] 01534 Hematocrit (Bld) [Volume fraction] 35.6 % Low 39-49 [facility] Comment on above: Performed By: #### C BCA, CMP, 3040-3, 20817-8, 65855-4, 77689- 9, 43147-4, PINR, 07376-5 #### [facility] ([id number]) [address] [place] [address] 09096 Hemoglobin (Bld) [Mass/Vol] 11.1 g/dL Low 13.0-17.0 [facility] Comment on above: Performed By: #### C BCA, CMP, 3040-3, 66446-9, 14788-1, 85043- 9, 87243-0, PINR, 97775-8 #### [facility] ([id number]) [address] [place] [address] 18300 Lymphocytes (Bld) [#/Vol] 1.8 10*3/uL Normal 1.0-3.5 [facility] Comment on above: Performed By: #### C BCA, CMP, 3040-3, 88732-6, 62778-6, 70853- 9, 10911-0, PINR, 64406-9 #### [facility] ([id number]) [address] [place] [address] 02232 Lymphocytes/100 WBC (Bld) 17.1 % Normal [facility] Comment on above: Performed By: #### C BCA, CMP, 3040-3, 62500-8, 28439-5, 70492- 9, 39608-5, PINR, 73516-3 #### [facility] ([id number]) [address] [place] [address] 65569 MCH (RBC) [Entitic mass] 24.9 pg Low 27-34 [facility] Comment on above: Performed By: #### C BCA, CMP, 3040-3, 08323-4, 03783-7, 99791- 9, 73439-3, PINR, 63495-8 #### [facility] ([id number]) [address] [place] [address] 17426 MCHC (RBC) [Mass/Vol] 31.2 g/dL Low 32-36 [facility] Comment on above: Performed By: #### C BCA, CMP, 3040-3, 15607-2, 65318-8, 83632- 9, 68314-9, PINR, 45544-1 #### [facility] ([id number]) [address] [place] [address] 22331 MCV (RBC) [Entitic vol] 80 fL Normal 80-100 [facility] Comment on above: Performed By: #### C BCA, CMP, 3040-3, 51802-0, 25859-6, 96596- 9, 18240-4, PINR, 31202-3 #### [facility] ([id number]) [address] [place] [address] 09250 Monocytes (Bld) [#/Vol] 0.6 10*3/uL Normal 0-0.9 [facility] Comment on above: Performed By: #### C BCA, CMP, 3040-3, 78601-1, 75215-9, 58720- 9, 23592-7, PINR, 58197-6 #### [facility] ([id number]) [address] [place] [address] 18788 Monocytes/100 WBC (Bld) 5.9 % Normal [facility] Comment on above: Performed By: #### C BCA, CMP, 3040-3, 82547-9, 06855-4, 93986- 9, 51119-0, PINR, 09392-7 #### [facility] ([id number]) [address] [place] [address] 72899 Neutrophils/100 WBC (Bld) 73.3 % Normal [facility] Comment on above: Performed By: #### C BCA, CMP, 3040-3, 41698-4, 04839-6, 24844- 9, 45679-0, PINR, 42464-8 #### [facility] ([id number]) [address] [place] [address] 04055 Platelet mean volume (Bld) [Entitic vol] 8.7 fL Normal 7-12 [facility] Comment on above: Performed By: #### C BCA, CMP, 3040-3, 74561-5, 60035-5, 05975- 9, 99929-7, PINR, 77179-4 #### [facility] ([id number]) [address] [place] [address] 07077 Platelets (Bld) [#/Vol] 429 10*3/uL Normal 150-450 [facility] Comment on above: Performed By: #### C BCA, CMP, 3040-3, 66275-4, 49063-4, 72310- 9, 65785-6, PINR, 34104-4 #### [facility] ([id number]) [address] [place] [address] 21913 RBC COUNT 4.46 X10E12/L Normal 4.10-5.70 [facility] Comment on above: Performed By: #### C BCA, CMP, 3040-3, 12562-6, 69597-1, 38504- 9, 38886-3, PINR, 18765-1 #### [facility] ([id number]) [address] [place] [address] 67359 WBC (Bld) [#/Vol] 10.6 10*3/uL Normal 4.0-11.0 [facility] Comment on above: Performed By: #### C BCA, CMP, 3040-3, 50170-5, 73290-4, 15437- 9, 22257-8, PINR, 29762-7 #### [facility] ([id number]) [address] [place] [address] 48029 COMPREHENSIVE METABOLIC PANE Ever 10-08-2023 Albumin [Mass/Vol] 2.7 g/dL Low 3.2-5.3 [facility] Comment on above: Performed By: #### C BCA, CMP, 3040-3, 94196-1, 84271-4, 20600- 9, 96391-6, PINR, 33962-4 #### [facility] ([id number]) [address] [place] [address] 31994 ALP [Catalytic activity/Vol] 318 U/L High 39-130 [facility] Comment on above: Performed By: #### C BCA, CMP, 3040-3, 85572-4, 22437-1, 86523- 9, 36258-3, PINR, 42379-9 #### [facility] ([id number]) [address] [place] [address] 35712 ALT [Catalytic activity/Vol] 58 U/L High 0-40 [facility] Comment on above: Performed By: #### C BCA, CMP, 3040-3, 80011-4, 32052-2, 95124- 9, 99343-1, PINR, 97509-7 #### [facility] ([id number]) [address] [place] [address] 27033 Anion gap [Moles/Vol] 9 mmol/L Normal 5-15 [facility] Comment on above: Performed By: #### C BCA, CMP, 3040-3, 04658-2, 92809-8, 28433- 9, 67800-9, PINR, 86450-8 #### [facility] ([id number]) [address] [place] [address] 11947 AST [Catalytic activity/Vol] 30 U/L Normal 0-41 [facility] Comment on above: Performed By: #### C BCA, CMP, 3040-3, 71966-7, 86246-1, 13009- 9, 89645-2, PINR, 93478-3 #### [facility] ([id number]) [address] [place] [address] 21135 Bilirubin [Mass/Vol] 0.5 mg/dL Normal 0.3-1.2 [facility] Comment on above: Performed By: #### C BCA, CMP, 3040-3, 65008-5, 49516-1, 76949- 9, 06675-4, PINR, 79244-2 #### [facility] ([id number]) [address] [place] [address] 28529 Calcium [Mass/Vol] 9.2 mg/dL Normal 8.5-10.5 [facility] Comment on above: Performed By: #### C BCA, CMP, 3040-3, 14062-2, 25858-2, 54216- 9, 89593-2, PINR, 95519-2 #### [facility] ([id number]) [address] [place] [address] 51062 Chloride [Moles/Vol] 99 mmol/L Normal 98-109 [facility] Comment on above: Performed By: #### C BCA, CMP, 3040-3, 36962-6, 61409-3, 61897- 9, 36567-1, PINR, 51371-3 #### [facility] ([id number]) [address] [place] [address] 92771 CO2 [Moles/Vol] 31 mmol/L Normal 22-32 [facility] Comment on above: Performed By: #### C BCA, CMP, 3040-3, 67313-8, 59460-8, 84934- 9, 72214-6, PINR, 92511-6 #### [facility] ([id number]) [address] [place] [address] 63059 Creatinine [Mass/Vol] 0.51 mg/dL Low 0.70-1.20 [facility] Comment on above: Result Comment: METH OD TRACEABLE TO IDMS STANDARD Performed By: #### C BCA, CMP, 3040-3, 27942-9, 42630-0, 18788-9, 85080-5, PINR, 72598-6 #### [facility] ([id number]) [address] [place] [address] 17421 eGFR (CKD-EPI) NON-RACE DEPENDENT >90 Normal >59 [facility] Comment on above: Result Comment: Reported eGFR is based on the CKD-EPI 2020 equation that does not use a race coefficient. Performed By: #### C BCA, CMP, 3040-3, 98509-9, 83496-3, 60453-5, 14190-1, PINR, 01675-2 #### [facility] ([id number]) [address] [place] [address] 88068 Glucose [Mass/Vol] 114 mg/dL High 65-99 [facility] Comment on above: Performed By: #### C BCA, CMP, 3040-3, 77567-0, 76883-5, 21908- 9, 45332-5, PINR, 00085-0 #### [facility] ([id number]) [address] [place] [address] 68734 Potassium [Moles/Vol] 4.3 mmol/L Normal 3.5-5.0 [facility] Comment on above: Performed By: #### C BCA, CMP, 3040-3, 06770-1, 41768-1, 60555- 9, 52857-7, PINR, 99751-8 #### [facility] ([id number]) [address] [place] [address] 60822 Protein [Mass/Vol] 7.2 g/dL Normal 6.0-8.0 [facility] Comment on above: Performed By: #### C BCA, CMP, 3040-3, 37872-1, 39763-7, 62227- 9, 51863-1, PINR, 39138-1 #### [facility] ([id number]) [address] [place] [address] 23282 Sodium [Moles/Vol] 139 mmol/L Normal 134-146 [facility] Comment on above: Performed By: #### C BCA, CMP, 3040-3, 97048-2, 18603-9, 12920- 9, 01687-8, PINR, 24481-2 #### [facility] ([id number]) [address] [place] [address] Urea nitrogen [Mass/Vol] 20 mg/dL Normal 5-23 [facility] Comment on above: Performed By: #### C BCA, CMP, 3040-3, 53485-8, 82952-1, 89576- 9, 97621-8, PINR, 45285-2 #### [facility] ([id number]) [address] [place] [address] CT LUMBAR SPINE W CONTon CT LUMBAR [...] Kimbrough MD on 10/08/2023 1:33 PM Normal [facility] LIPASEon 10-08-2023 Lipase [Catalytic activity/Vol] 23 U/L Normal 17-40 [facility] Comment on above: Performed By: #### C BCA, CMP, 3040-3, 54480-1, 05423-6, 14024- 9, 52148-6, PINR, 63769-2 #### [facility] ([id number]) [address] [place] [address] 78670 Lactate (P rufina) [Moles/Vol]o n 10-08-2023 LACTATE W/REFLEX 1.1 mmol/L Normal 0.4-2.0 [facility] Comment on above: Result Comment: Result did not trigger repeat Lactate, re-order if needed. Performed By: #### C BCA, CMP, 3040-3, 70762-9, 88257-7, 91706-6, 61317-6, PINR, 68271-7 #### [facility] ([id number]) [address] [place] [address] 33722 MAGNESIUMon 10-08-2023 Magnesium [Mass/Vol] 2.1 mg/dL Normal 1.8-2.6 [facility] Comment on above: Performed By: #### C BCA, CMP, 3040-3, 36454-0, 81023-9, 18988- 9, 11041-5, PINR, 87940-0 #### [facility] ([id number]) [address] [place] [address] 02912 Natriuretic peptide B [Mass/ Vol]on 10-08-2023 BRN NATRIURETIC PEP <5 Normal <100.0 [facility] Comment on above: Performed By: #### C BCA, CMP, 3040-3, 24661-5, 94538-4, 30428- 9, 68996-1, PINR, 57264-5 #### [facility] ([id number]) [address] [place] [address] 63881 PROTIME AND INRon 10-08-2023 INR Coag (PPP) [Relative time] 1.4 {INR} High 0.8-1.1 [facility] Comment on above: Performed By: #### C BCA, CMP, 3040-3, 52519-8, 83063-8, 34709- 9, 72189-6, PINR, 15615-7 #### [facility] ([id number]) [address] [place] [address] 51955 PT Coag (PPP) [Time] 16.3 s High 9.8-13.2 [facility] Comment on above: Result Comment: NEW REFERENCE RANGE Performed By: #### C BCA, CMP, 3040-3, 70952-0, 75342-2, 83584-3, 81507-8, PINR, 66198-0 #### [facility] ([id number]) [address] [place] [address] 96529 SUPERFICIAL WOUND CULTUREon 10-08-2023 Bacteria identified Aer cx Nom (Wound) GRAM STAIN 0 WHITE BLOOD CELLS/LPF 0 to 1 SQUAMOUS EPITHELIAL CELLS/LPF MODERATE GRAM POSITIVE COCCI IN PAIRS CULTURE RESULTS FEW MIXED GRAM POSITIVE AND GRAM NEGATIVE ORGANISMS NO STAPHYLOCOCCUS AUREUS ISOLATED NO BETA HEMOLYTIC STREPTOCOCCI ISOLATED NO PSEUDOMONAS AERUGINOSA ISOLATED Normal [facility] Comment on above: Performed By: #### C BCA, CMP, 3040-3, 04111-4, 94121-7, 09978- 9, 52525-3, PINR, 56513-2 #### [facility] ([id number]) [address] [place] [address] 68590 TROPONIN Ion 10-08-2023 Troponin I.cardiac [Mass/Vol] 0.03 ng/mL Normal 0.00-0.04 [facility] Comment on above: Performed By: #### C BCA, CMP, 3040-3, 49682-9, 52925-6, 52244- 9, 19977-9, PINR, 17872-8 #### [facility] ([id number]) [address] [place] [address] 21596 XR CHEST 1 VWon 10-08-2023 XR CHEST 1 VW XR CHEST 1 VW Clinical history: Sepsis Views: 1 Comparison: 08/23/2023 Findings/Impression: 1. Shallow inspiration with lower lobe atelectasis and small effusions. Findings are similar to the previous exam. 2. Heart size stable. 3. Tracheostomy unchanged in position. Finalized by Tayler Mccoy MD on 10/08/2023 12:59 PM Normal [facility] aPTT Coag (PPP) [Time]on aPTT Coag (Bld) [Time] 38 s High 26-37 [facility] Comment on above: Result Comment: NEW REFERENCE RANGE Performed By: #### C BCA, CMP, 3040-3, 72893-0, 90420-1, 46390-9, 59283-1, PINR, 16003-8 #### [facility] ([id number]) [address] [place] [address] 57633 XR CHEST PORTABLEon 07-25-20 XR CHEST PORTABLE [...] Thom Rhoades MD 07/25/23 Final result Normal [facility] XR CHEST PORTABLEon 07-22-20 XR CHEST [...] for infiltrates. Follow-up recommended. Interpreted by: Logan Valera MD Signed by: Logan Valera MD 07/22/23 Final result Normal [facility] XR CHEST PORTABLEon 07-19-20 XR CHEST [...] Nghia Suarez MD 07/19/23 Final result Normal [facility] XR CHEST PORTABLEon 07-15-20 XR CHEST [...] Nghia Suarez MD 07/15/23 Final result Normal [facility] XR CHEST PORTABLEon 07-11-20 XR CHEST [...] Nghia Suarez MD 07/11/23 Final result Normal [facility] XR CHEST PORTABLEon 07-07-20 XR CHEST [...] Heavenly Kent MD 07/07/23 Final result Normal [facility] Retail - Clinical Noteon Retail - Clinical Note [id number] Normal [facility] Ambulatory Visit Summaryon 0 10-01-2022 Ambulatory Visit Summary LOLIS QUINONES III :1985 Visit Date:10/01/2022 Ambulatory Visit Instructions Your Diagnosis Chronic prostatitis Flaccid neurogenic bladder Incomplete bladder emptying Tests Performed Urnls Dip Stick Auto w/o Microscopy POC 82071 Your Care Team Attending Physician - ANNABELLE ANGUIANO, Cj Rodas Primary Care Physician - ELAINE PONCE MD [...] Saturday 10:15 AM EST With: ANNABELLE ANGUIANO, Cj Rodas Where: [facility] Joselyn Normal [facility] Patient Educationon 10-01-19 Patient Education Infectious Disease [...] Follow these instructions at home: ? Take mzoj-wjr-wxnklox and prescription medicines only as told by [...] 11/08/2018 Docum (more content not included)... Normal [facility] Urology Office/Clinic Noteon 10-01-2022 Urology Office/Clinic [...] and history for this patient from Dr. Alanis. I have reviewed and verified the staff [...] he had a likely prostatitis infection around gi. Was having lower pain, discharge. Completed abx [...] URL [facility] [address], [place] [address]- Additional Instructions: f/u 1 yr Patient Education Prostatitis I, Sapphire Fuller, personally scribed for Dr. Alanis on 10/01/2022 11:20:11. . Documentation recorded by the scribe, Sapphire Fuller, accurately reflects the services(s) I performed and decisions made by me. Authenticated by Dr. Alanis on 10/01/2022 11:21:22. Problem List/Past Medical History [...] vaccine, inac (more content not included)... Normal [facility] Comment on above: Result Comment: Elec tronically Signed By: Cj ALANIS MD\.br\Date and Time Signed: 10/01/22 11:21 EST\.br\Electronically Co-Signed By: Sapphire Fuller\.br\Date and Time Co-Signed: 10/01/22 11:20 EST ER URINE PROFILEon 2 Bilirubin Ql (U) Negative Normal NEGATIVE [facility] Comment on above: Performed By: #### CATHY BOGGS #### [facility] [address] [place] [address] Dr. Alecia Trejo Clarity (U) CLEAR Normal CLEAR [facility] Comment on above: Performed By: #### Brandin SAAVEDRA UMICRO #### [facility] [address] [place] [address] Dr. Alecia Trejo Color (U) LT. YELLOW Normal YELLOW [facility] Comment on above: Performed By: #### Brandin SAAVEDRA UMICRO #### [facility] [address] [place] [address] Dr. Alecia Trejo ERUAHD A micrscopic examination will be performed if indicated. Normal [facility] Comment on above: Performed By: #### Brandin SAAVEDRA UMICRO #### [facility] [address] [place] [address] Dr. Alecia Trejo Glucose Ql (U) Negative Normal NEGATIVE [facility] Comment on above: Performed By: #### Brandin SAAVEDRA UMICRO #### [facility] [address] [place] [address] Dr. Alecia Trejo Hemoglobin Ql (U) Negative Normal NEGATIVE [facility] Comment on above: Performed By: #### Brandin SAAVEDRA UMICRO #### [facility] [address] [place] [address] Dr. Alecia Trejo Ketones Ql (U) Negative Normal NEGATIVE [facility] Comment on above: Performed By: #### Brandin SAAVEDRA UMICRO #### [facility] [address] [place] [address] Dr. Alecia Trejo LEUKOCYTES TRACE Abnormal NEGATIVE [facility] Comment on above: Performed By: #### Brandin SAAVEDRA UMICRO #### [facility] [address] [place] [address] Dr. Alecia Trejo Nitrite Ql (U) Negative Normal NEGATIVE [facility] Comment on above: Performed By: #### Brandin SAAVEDRA UMICRO #### [facility] [address] [place] [address] Dr. Alecia Trejo pH (U) 6.5 [pH] Normal 5-9 [facility] Comment on above: Performed By: #### E RUR, UMICRO #### [facility] [address] [place] [address] Dr. Alecia Trejo SPEC GRAVITY 1.015 Normal 1.005-<=1.02 5 [facility] Comment on above: Performed By: #### Brandin SAAVEDRA UMICRO #### [facility] [address] [place] [address] Dr. Alecia Trejo UA PROTEIN Negative Normal NEGATIVE/ TRACE [facility] Comment on above: Performed By: #### REMY BOGGSRO #### [facility] [address] [place] [address] Dr. Alecia Trejo UR MICRO IND INDICATED Normal [facility] Comment on above: Performed By: #### REMY BOGGSRO #### [facility] [address] [place] [address] Dr. Alecia Trejo Urobilinogen Qn (U) 0.2 {Mayra'U}/dL Normal 0.2 - 1. 0 [facility] Comment on above: Performed By: #### Brandin SAVAEDRA UMICRO #### [facility] [address] [place] [address] Dr. Alecia Trejo URINE MICROSCOPIC ONLYon BACTERIA NONE SEEN Normal NONE SEEN [facility] Comment on above: Performed By: #### Brandin SAAVEDRA UMICRO #### [facility] [address] [place] [address] Dr. Alecia Trejo Bacteria identified Cx Nom (U) NOT INDICATED Normal [facility] Comment on above: Performed By: #### DEON BOGGSICRO #### [facility] [address] [place] [address] Dr. Alecia Trejo CAST NONE SEEN Normal NONE SEEN [facility] Comment on above: Performed By: #### DEON BOGGSICRO #### [facility] [address] [place] [address] Dr. Alecia Trejo Crystals LM Nom (Urine sed) NONE SEEN Normal NONE SEEN [facility] Comment on above: Performed By: #### REMY BOGGSRO #### [facility] [address] [place] [address] Dr. Alecia Trejo Epithelial cells LM Ql (Urine sed) NONE SEEN Normal NONE SEEN /RARE [facility] Comment on above: Performed By: #### E REMY SAAVEDRARO #### [facility] [address] [address] [address] Alecia Trejo MUCOUS NONE SEEN Normal NONE SEEN [facility] Comment on above: Performed By: #### REMY BOGGSRO #### [facility] [address] [address] [address] Alecia Trejo RBC 0-2 Normal 0-2 [facility] Comment on above: Performed By: #### E REMY SAAVEDRARO #### [facility] [address] [place] [address] Dr. Alecia Trejo WBC 0-2 Abnormal NONE SEEN [facility] Comment on above: Performed By: #### REMY BOGGSRO #### [facility] [address] [place] [address] Dr. Alecia Trejo MRI LSPINE WO CONon [...] by: CLAIR CORTES Date: 2022-03-07 14:18 Normal [facility] XR CSPINE 2_3 VIEWSon 2021 XR CSPINE 2_3 VIEWS EXAMINATION: XR TSPI NE 3 VIEWS, XR CSPINE 2_3 VIEWS, XR [...] by: CLAIR CORTES Date: 2022-02-12 20:52 Normal [facility] ELBOW LEFT 3 VWSon 2 ELBOW LEFT 3 VWS [facility] Department of Radiology [address] [place] [id number] ======== Patient Name: LOLIS QUINONES : 1985 Sex: M Age: Race: White Pt. Location: [facility] Patient Status: E Ordered Date: 12/22/2021 5:55:00 PM Completed Date: 12/22/2021 06:12 PM Requesting Provider: CHRISTINE OCHOA Attending Provider: DAT PERALTA Report Copy To: Signs & Symptoms: Pain History: Comments: FX Exam: ELBOW LEFT 3 [facility] ======== ELBOW LEFT 3 [facility] 12/22/2021 6:12 PM CLINICAL INDICATIONS: Pain [...] swelling. Electronically signed: Haroldo Trivedi. Transcribed by: [email or web address], User Resident: Electronically Signed by: HAROLDO TRIVEDI @ 12/22/2021 06:22 PM Normal [facility] Comment on above: Order Comment: FX ELBOW RIGHT 3 [facility] 12-23-19 ELBOW RIGHT 3 [facility] Department of Radiology [address] [place] [phone] ======== Patient Name: LOLIS QUINONES : 1985 Sex: M Age: Race: White Pt. Location: [facility] Patient Status: E Ordered Date: 12/22/2021 5:55:00 PM Completed Date: 12/22/2021 06:10 PM Requesting Provider: CHRISTINE OCHOA Attending Provider: DAT PERALTA Report Copy To: Signs & Symptoms: Pain History: Comments: FX Exam: ELBOW RIGHT 3 [facility] ======== ELBOW RIGHT 3 [facility] 12/22/2021 6:10 PM [...] swelling. Electronically signed: Haroldo Trivedi. Transcribed by: [email or web address], User Resident: Electronically Signed by: HAROLDO TRIVEDI @ 12/22/2021 06:23 PM Normal [facility] Comment on above: Order Comment: FX CT [...] by: CLAIR CORTES Date: 2021-12-11 15:45 Normal [facility] XR wrist RT 2Von 11-28-2021 XR wrist RT 2V [facility] [place] [address] [place] [address] XRay Report Signed Patient: Lolis Quinones III MR#: [id number] : 1985 Acct:[id number] Age/Sex: 36 / M ADM Date: 11/28/21 Loc: [facility] Room: Type[facility] Attending Dr: Tayler Dill MD Ordering Provider: [...] Ivan Allan M.D.11/28/2021 1:13 PM Dictation Location: [place] [address] Transcribed By: [facility] 11/28/21 1313 Dictated By: Ivan Allan DO 11/28/21 1311 Signed By: 11/28/21 1313 [facility] XR chest 2V*on 03-30-2021 XR chest 2V* [facility] [place] [address] [place] [id number] XRay Report Signed Patient: Lolis Quinones III MR#: [id number] : 1985 Acct:[id number] Age/Sex: 36 / M ADM Date: 03/30/21 Loc: [facility] Room: Type: [facility] Attending Dr: Eden Healy NP Ordering Provider: Eden Healy NP Date of Service: 03/30/21 XR/XR chest 2V*: Cough Copies to: Eden Healy NP PA AND LATERAL CHEST: CLINICAL HISTORY: Dry [...] Kathie Salamanca M.D.03/30/2021 3:35 PM Dictation Location: [place] [address] Transcribed By: [facility] 03/30/21 1535 Dictated By: Kathie Salamanca MD 03/30/21 1455 Signed By: 03/30/21 1535 [facility] Vital Signs Date Time Vital Sign Value Performing Clinician Facility 10-01-2022 10:11-0500 Blood Pressure Location Cj ALANIS [facility] 10-01-2022 10:11-0500 Diastolic blood pressure 80 mm[Hg] Cj ALANIS [facility] 10-01-2022 10:11-0500 Heart rate 70 /min Cj ALANIS [facility] 10-01-2022 10:11-0500 Respiratory rate 16 /min Cj ALANIS [facility] 10-01-2022 10:11-0500 Systolic blood pressure 129 mm[Hg] Cj ALANIS [facility] 10-17-2021 14:15-0500 Body height 160.02 cm Tayler Dill Other [employer] Other 10-17-2021 14:15-0500 Body mass index (BMI) [Ratio] 34.54 kg/m2 Tayler Dill Other [employer] Other 10-17-2021 14:15-0500 Body weight 88.45 kg Tayler Dill Other [employer] Other Encounters Encounter Date Encounter Type Care Provider Facility Start: 04-01-2024 End: 04-01-2024 Subsequent hospital visit by physician Mri 6 [facility] Main Q (I-Stat/1.5t/3t) Work Phone: MRI Q Comment on above: Canceled (CC cx: Err or or Template Change) Start: 01-03-2024 End: 01-03-2024 ambulatory JF WALDRON Facility:[facility] Start: 01-03-2024 End: 01-03-2024 ambulatory Jf Waldron MD Work Phone: Hematology/Oncology Comment on above: Iron deficiency anem ia due to chronic blood loss (Primary Dx) Start: 01-03-2024 End: 01-03-2024 Telemedicine consultation with patient Jf Waldron MD Work Phone: Hematology/Oncology Start: 01-03-2024 Telephone encounter Jf conti MD Work Phone: Cancer Appts Comment on above: Results Start: 01-02-2024 Chart abstracting Yancy Perez MA Hem atology/Oncology Start: 01-01-2024 Telephone encounter Varun Funez MD Work Phone: Pulmonary Medicine Comment on above: Patient Question Start: 12-23-2023 End: 12-23-2023 Subsequent hospital visit by physician Mri [facility] (Lg Bore/1.5t) Radiology MRI Comment on above: Canceled (CC cx: Err or or Template Change) Start: 12-20-2023 Telephone encounter Radiologis t Radiology Work Phone: MR IMAGING Start: 11-26-2023 End: 11-26-2023 Evaluation and management of inpatient CAL MORRIS Facility:[facility] Start: 11-21-2023 End: 11-28-2023 Evaluation and management of inpatient ENDRIT ANTONIO Facility:[facility] Start: 11-21-2023 ambulatory Yash Clemente MENDIOLAFUNERAL DRIVER Work Phone: Critical Care Start: 11-08-2023 ambulatory Leon Plascencia MD Work Phone: Infectious Disease Comment on above: [employer] Start: 10-24-2023 ambulatory Leon Plascencia MD Work Phone: Infectious Disease Comment on above: [employer] [facility] Start: 10-23-2023 ambulatory Leon Plascencia MD Work Phone: Infectious Disease Comment on above: [employer] Start Start: 10-17-2023 End: 10-17-2023 Evaluation and management of inpatient JF BRUNONATALITIMO Facility:[facility] Start: 10-16-2023 End: 10-16-2023 Evaluation and management of inpatient JF BRUNONATALITIMO Facility:[facility] Start: 10-10-2023 End: 10-10-2023 ambulatory SERGEI ROOT [facility] Start: 10-10-2023 End: 10-23-2023 Evaluation and management of inpatient ADOLFO VALENTINE Facility:[facility] Start: 10-08-2023 End: 10-10-2023 Emergency department patient visit ADOLFO VALENTINE [facility] Start: 10-08-2023 End: 10-09-2023 Emergency department patient visit SERGEI ROOT [facility] Start: 10-07-2023 ambulatory Cj Fernandezi ty:[facility] Start: 08-26-2023 End: 08-26-2023 ambulatory SERGEI ROOT [facility] Start: 10-01-2022 End: 10-02-2022 ambulatory Cj ALANIS Facility:[facility] Start: 10-01-2022 End: 10-01-2022 Patient encounter procedure Cj ALANIS [facility] Start: 08-18-2022 End: 08-18-[address] ELAINE PONCE Facility:[facility] Start: 03-07-2022 End: 03-08-[address] ELAINE PONCE Facility:[facility] Start: 02-12-2022 End: 02-13-[address] ELAINE PONCE Facility:[facility] Start: 01-13-2022 End: 01-13-[address] ELAINE PONCE Facility:[facility] Start: 12-22-2021 End: 12-22-2021 Emergency department patient visit Christine Ochoa Facility:[facility] Start: 12-11-2021 End: 12-12-2021 ambulatory HAROLDO ORTIZ Facility:[facility] Start: 11-28-2021 End: 11-28-2021 ambulatory Tayler Olexa Other [employer] Other Start: 11-28-2021 Postop follow up vis it related to original px Tayler Olexa [facility] Start: 11-07-2021 End: 11-08-2021 ambulatory TAYLER OLEXA [facility] [employer] Other Start: 11-07-2021 Postop follow up vis it related to original px Tayler Dill [facility] Start: 10-17-2021 End: 10-17-2021 ambulatory Tayler Dill Other [employer] Other Start: 10-17-2021 [facility] visit new patient Tayler Dill [facility] Start: 10-16-2021 End: 10-16-[address] ELAINE PONCE Facility:[facility] Procedures Date Procedure Procedure Detail Performing Clinician Start: 11-22-2023 Antibody screen NIGEL GUTIERREZ Comment on above: Order Comment: Speci men Type: BLOOD SPECIMENOrdering Facility: [facility] Address: [address] [place] [address] Performed By: #### T SCR ####JOHANNE BLOOD BANKCLIA [id number] [address] Start: 11-22-2023 Lipid 1996 panel - S emely or Plasma Yash Cornejo APRN.CNP Work Phone: Start: 10-19-2023 Antibody screen JF HALEY Comment on above: Order Comment: Speci men Type: BLOOD SPECIMENOrdering Facility: [facility] Address: [address] [place] [address] Performed By: #### T SCR ####CC MAIN BLOOD BANKCLIA [id number] [address] Start: 10-18-2023 H/O: tracheostomy History of tracheostomy Leon Plascencia MD Work Phone: Start: 10-16-2023 Antibody screen JF HALEY Comment on above: Order Comment: Speci men Type: BLOOD SPECIMENOrdering Facility: [facility] Address: [address] [place] [address] Performed By: #### T SCR ####CC MAIN BLOOD BANKCLIA [id number] [address] Start: 10-13-2023 Antibody screen JF HALEY Comment on above: Order Comment: Speci men Type: BLOOD SPECIMENOrdering Facility: [facility] Address: [address] [place] [address] Performed By: #### T SCR ####CC MAIN BLOOD BANKCLIA [id number] [address] Start: 10-10-2023 Echocardiography JF WALDRON Start: 10-10-2023 Antibody screen JF HALEY Comment on above: Order Comment: Speci men Type: BLOOD SPECIMENOrdering Facility: [facility] Address: [address] [place] [address] Performed By: #### T SCR ####CC MAIN BLOOD BANKCLIA [id number] [address] Start: 06-11-2023 Lipid 1996 panel - S emely or Plasma Leon Plascencia MD Work Phone: Start: 01-22-2019 Diagnostic endoscopi c examination on colon Cj ALANIS back surgery Cj ANNABELLE Repair of inguinal hernia Kian ALANIS Plan of Treatment Date Care Activity Detail Author Start: 11-21-2028 Lipid panel [facility] Start: 06-11-2028 Lipid [facility] Start: 05-20-2024 End: 05-20-2024 Patient encounter procedure 05/20/2024 4:40 PM EDT Appointment MRI Q [address] [address] MRI PELVIS WOW/IVCON MRI Q Comment on above: MRI PELVIS WOW/IVCON Start: 05-10-2024 Influenza [facility] Start: 01-28-2024 End: 01-28-2024 Patient encounter procedure 01/28/2024 3:00 PM EDT Appointment MRI Q [address] [address] [facility] and has outside respiratory therapist to manage the ventilator. Arriving in wheel chair as quadriplegic w/no mobility. MRI Q Comment on above: Coming [facility] w/ventilator and has outside respiratory therapist to manage the ventilator. Arriving in wheel chair as quadriplegic w/no mobility. Start: 01-03-2024 End: 01-03-2024 ambulatory 01/03/2024 3:30 PM EDT [facility] Hematology/Oncology [address] [place] [address] Jf Waldron MD [address] [place] [address] [place] [address] CHRONIC ANEMIA Hematology/Oncology Comment on above: CHRONIC ANEMIA Start: 01-03-2024 End: 01-02-2025 CBC W Auto Differential panel - Blood COMPLETE BLOOD COUNT AND DIFFERENTIAL Lab Routine Iron deficiency anemia due to chronic blood loss Expected: 01/03/2024, Expires: 01/02/2025 [facility] Work Phone: Comment on above: Expected: 01/03/2024 , Expires: 01/02/2025 Start: 01-03-2024 End: 01-02-2025 Cobalamin (Vitamin B12) [Mass/volume] in Serum or Plasma VITAMIN B12 Lab Routine Iron deficiency anemia due to chronic blood loss Expected: 01/03/2024, Expires: 01/02/2025 [facility] Comment on above: Expected: 01/03/2024 , Expires: 01/02/2025 Start: 01-03-2024 End: 01-02-2025 Comprehensive metabolic 2000 panel - Serum or Plasma COMPREHENSIVE METABOLIC PANEL Lab Routine Iron deficiency anemia due to chronic blood loss Expected: 01/03/2024, Expires: 01/02/2025 [facility] Comment on above: Expected: 01/03/2024 , Expires: 01/02/2025 Start: 01-03-2024 End: 04-03-2024 Erythropoietin (EPO) [Units/volume] in Serum or Plasma ERYTHROPOIETIN/EPO Lab Routine Iron deficiency anemia due to chronic blood loss Expected: 01/03/2024, Expires: 04/03/2024 [facility] Comment on above: Expected: 01/03/2024 , Expires: 04/03/2024 Start: 01-03-2024 End: 01-02-2025 Ferritin [Mass/volume] in Serum or Plasma FERRITIN Lab Routine Iron deficiency anemia due to chronic blood loss Expected: 01/03/2024, Expires: 01/02/2025 [facility] Comment on above: Expected: 01/03/2024 , Expires: 01/02/2025 Start: 01-03-2024 End: 01-02-2025 Folate [Mass/volume] in Serum or Plasma FOLATE, SERUM Lab Routine Iron deficiency anemia due to chronic blood loss Expected: 01/03/2024, Expires: 01/02/2025 [facility] Comment on above: Expected: 01/03/2024 , Expires: 01/02/2025 Start: 01-03-2024 End: 04-03-2024 Haptoglobin [Mass/volume] in Serum or Plasma HAPTOGLOBIN Lab Routine Iron deficiency anemia due to chronic blood loss Expected: 01/03/2024, Expires: 04/03/2024 [facility] Comment on above: Expected: 01/03/2024 , Expires: 04/03/2024 Start: 01-03-2024 End: 01-02-2025 Iron and Iron binding capacity panel - Serum or Plasma IRON AND TIBC Lab Routine Iron deficiency anemia due to chronic blood loss Expected: 01/03/2024, Expires: 01/02/2025 [facility] Comment on above: Expected: 01/03/2024 , Expires: 01/02/2025 Start: 01-03-2024 End: 04-03-2024 Lactate dehydrogenase [Enzymatic activity/volume] in Serum or Plasma LACTATE DEHYDROGENASE Lab Routine Iron deficiency anemia due to chronic blood loss Expected: 01/03/2024, Expires: 04/03/2024 [facility] Comment on above: Expected: 01/03/2024 , Expires: 04/03/2024 Start: 01-03-2024 End: 04-03-2024 RETICULOCYTE COUNT RETICULOCYTE COUNT Lab Routine Iron deficiency anemia due to chronic blood loss Expected: 01/03/2024, Expires: 04/03/2024 [facility] Comment on above: Expected: 01/03/2024 , Expires: 04/03/2024 Start: 09-09-2023 Behavioral Health Screening Behavioral Health Screening [facility] Start: 09-09-2023 Depression Assessment Depression Ass essment [facility] Start: 05-10-2023 Covid-19 Vaccine ( season) Covid-19 Vaccine ( season) [facility] Start: 05-10-2023 Influenza vaccination Influenza Vacc ine (#1) [facility] Start: 01-29-2003 Hepatitis B Vaccine (1 of 3 - 19+ 3-dose series) Hepatitis B Vaccine (1 of 3 - 19+ 3-dose series) [facility] Start: 01-29-2003 Urine microalbumin profile DTaP,Tdap,Td Vaccine (1 - Tdap) [facility] Start: 01-29-2002 Anxiety Screening Anxiety Screening [facility] Start: 01-29-2002 Depression Screening Depression Scre ening [facility] Start: 01-29-2002 Hepatitis C screening Hepatitis C Sc aniket [facility] Start: 01-29-2002 HIV screening HIV Screening [facility] Start: 1984 Hepatitis B Vaccine (1 of 3 - 3-dose series) Hepatitis B Vaccine (1 of 3 - 3-dose series) [facility] Immunizations Immunization Date Immunization Notes Care Provider Fa and[facility] 06-11-2022 influenza virus vaccine, unspecified formulation Cj ALANIS [facility] 06-11-2022 Seasonal, quadrivale nt, recombinant, injectable influenza vaccine, preservative free [facility] 09-12-2021 SARS-CoV-2 (COVID-19 ) mRNA-1273 vaccine Cj ALANIS [facility] 07-03-2021 influenza virus vaccine, unspecified formulation Cj ALANIS [facility] 07-03-2021 influenza, seasonal, injectable [facility] 06-09-2021 influenza virus vaccine, unspecified formulation Cj ALANIS [facility] 10-21-2020 SARS-CoV-2 (COVID-19 ) mRNA-1273 vaccine Cj ALANIS [facility] 09-23-2020 SARS-CoV-2 (COVID-19 ) mRNA-1273 vaccine Cj ALANIS [facility] 09-09-2020 SARS-CoV-2 (COVID-19 ) mRNA-1273 vaccine Cj ALANIS [facility] Comment on above: Result Comment: Pt h as had all 3 shots to date but does not have his card today. 06-23-2020 influenza virus vaccine, unspecified formulation Cj ALANIS [facility] 06-23-2020 influenza, injectabl e, quadrivalent, preservative free [facility] 06-20-2020 influenza virus vaccine, unspecified formulation Cj ALANIS [facility] 06-23-2019 influenza virus vaccine, unspecified formulation Jc ALANIS [facility] 06-23-2019 influenza, injectabl e, quadrivalent, preservative free [facility] 06-02-2018 influenza virus vaccine, unspecified formulation Cj ALANIS [facility] 06-05-2017 influenza virus vaccine, unspecified formulation Cj ALANIS [facility] 06-05-2017 influenza, seasonal, injectable [facility] 07-17-2016 influenza virus vaccine, unspecified formulation Cj ALANIS [facility] 07-17-2016 influenza, seasonal, injectable, preservative free [facility] 02-09-2014 influenza virus vaccine, unspecified formulation Cj ALANIS [facility] 02-09-2014 influenza, injectabl e, quadrivalent, preservative free [facility] 02-13-2007 hepatitis B vaccine, pediatric or pediatric/adolescent dosage Cj ALANIS [facility] 10-16-2006 hepatitis B vaccine, pediatric or pediatric/adolescent dosage Cj ALANIS [facility] 08-28-2006 hepatitis B vaccine, pediatric or pediatric/adolescent dosage Cj ALANIS [facility] Payers Date Payer Category Payer Worker's Compensation [id number] 2019 Unknown [id number] 1984 Unknown [id number] 2.16.8 [id number] 1984 Unknown [id number] 2.16.84 0.1.681816.3.579.2.593 1984 Unknown [id number] 2.16.84 0.1.202857.3.579.2.593 1984 Unknown [id number] 2.16.84 0.1.702510.3.579.2.593 1984 Unknown [id number] 2.16.84 0.1.994924.3.579.2.593 1984 Unknown [id number] 2.16.84 0.1.213954.3.579.2.593 1984 Unknown [id number] 2.16.84 0.1.755447.3.579.2.593 1984 Unknown [id number] 2.16.84 0.1.379698.3.579.2.593 1984 Unknown [id number] 2.16.8 40.1.060732.3.579.2.727 1984 Unknown [id number] 2.16.8 40.1.207263.3.579.2.727 1984 Unknown [id number] 2.16.8 40.1.769883.3.579.2.1286 1984 Unknown [id number] 2.16.840 .1.893731.3.579.2.1286 1984 Unknown [id number] 2.16.8 40.1.337046.3.579.2.1286 1984 Unknown [id number] 2.16.8 40.1.986487.3.579.2.1286 1984 Unknown [id number] 2.16.8 40.1.627409.3.579.2.1286 1959 Unknown [id number] 2.16.8 40.1.751299.19 Social History Date Type Detail Facility Start: 10-10-2023 End: 01-03-2024 Sex Assigned At [facility] Start: 10-05-2019 End: 01-02-2024 Tobacco smoking status Never smoked tobacco (finding) [facility] Start: 10-10-2023 End: 01-02-2024 Alcohol intake Current non-drinker of alcohol (finding) [facility] Start: 10-10-2023 End: 01-03-2024 History of Social function [facility] Start: 1985 Sex Assigned At Not on file [facility] Has the [employer], or [employer] threatened to shut off services in your home in past 12Mo No [facility] (I/We) worried wheth er (my/our) food would run out before (I/we) got money to buy more. Never true [facility] In the past 12 month s, has lack of transportation kept you from medical appointments or from getting medications? No [facility] History of tobacco use Passive smoker [facility] Start: 01-02-2024 Tobacco use and exposure Smoke less tobacco non-user [facility] Functional Status Date Assessment Result Facility 10-01-2022 Functional Status N/A [facility] Notes 10-16-2021 to 01-21-2024 Telephone Encounter - Shanna Roa RN - 01/21/2024 2:58 PM EDTTelephone Encounter - Shanna Roa RN - 01/21/2024 2:58 PM EDTTelephone Encounter - Jf Waldron MD - 01/21/2024 2:35 PM EDT Note Date & Type Note Facility 01-21-2024 Telephone encounter Note RX did not print. Sheree gagnon notified and provided number for [facility], that is used for pt care at their facility. Called [phone] and spoke with Diomedes Mata. She will add the Iron and Folic acid, as prescribed to pt MAR and notify facility of new medications to be given, as prescribed. They will call if any concerns/issues arise. Shanna Roa RN [facility] 01-21-2024 Miscellaneous Notes RX did not print. Sheree gagnon notified and provided number for [facility], that is used for pt care at their facility. Called [phone] and spoke with Diomedes Mata. She will add the Iron and Folic acid, as prescribed to pt MAR and notify facility of new medications to be given, as prescribed. They will call if any concerns/issues arise. Shanna Roa RN Signed. maria victoria Spoke with mother. Pt admitted last night to [facility], for aspiration of tube feed. She is aware of Luis Miguel's message and recommendations. She is asking if these can be increased in his tube feeding to continue with conservative treatment vs transferring for IV Iron. I will call to discuss with Sheree Gagnon. Called to Sheree Gagnon. 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 Pt being given Osmolyte 1.2. No additional RX for Iron or Folic acid being given. If RX's recommended, she requests we fax to [phone]. Luis Miguel: pended Folic acid and Iron to be given per peg tube. Please review and sign, if agreeable. Shanna Roa RN His iron is a little low and may benefit from an IV infusion. However, he doesn't appear to have a significant demand since his Epo level isn't that high. Maybe his body doesn't feel the need to have a higher Hgb/Hct. His folic acid is quite low though, and that is an easy supplementation in the tube feeds I assume - he will need 1000 mcgs, Folic acid once daily - any appropriate formation that can be placed in his tube is fine. Luis Miguel: please review scanned labs and advise Shanna Roa RN Labs awaiting final results per [place]. Will check back Saturday. Shanna Roa RN Call placed to [facility] labs not all resulted. She will fax all results, once finalized. Shanna Roa RN Faxed lab orders to [phone] per Charis's request. Ashley Beltran Images from the original note were not included. Triage: Please see Dr. Bolanos's recommendations below for follow up. Thanks! I printed lab orders and will have them sent to facility. Jf Mann MD P [facility] Clerical Pool 1. Draw labs at facility a. Send labs orders to them b. Triage call results to Clara (his mother) in 1 week i. Will plan follow up 2. Continue tube feeding with iron and folic acid supplementation. documented in this encounter [facility] 01-21-2024 Telephone encounter Note Signed. thanks [facility] 01-21-2024 Telephone encounter Note Spoke with mother. Pt admitted last night to [facility], for aspiration of tube feed. She is aware of Luis Miguel's message and recommendations. She is asking if these can be increased in his tube feeding to continue with conservative treatment vs transferring for IV Iron. I will call to discuss with Sheree Gagnon. Called to Sheree Gagnon. 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 Pt being given Osmolyte 1.2. No additional RX for Iron or Folic acid being given. If RX's recommended, she requests we fax to [phone]. Luis Miguel: pended Folic acid and Iron to be given per peg tube. Please review and sign, if agreeable. Shanna Roa RN [facility] 01-21-2024 Telephone encounter Note His iron is a little low and may benefit from an IV infusion. However, he doesn't appear to have a significant demand since his Epo level isn't that high. Maybe his body doesn't feel the need to have a higher Hgb/Hct. His folic acid is quite low though, and that is an easy supplementation in the tube feeds I assume - he will need 1000 mcgs, Folic acid once daily - any appropriate formation that can be placed in his tube is fine. [facility] 01-20-2024 Telephone encounter Note Luis Miguel: please review scanned labs and advise Shanna Roa RN [facility] 01-16-2024 Telephone encounter Note Labs awaiting final results per [place]. Will check back Saturday. Shanna Roa RN [facility] 01-13-2024 Telephone encounter Note Call placed to [facility] labs not all resulted. She will fax all results, once finalized. Shanna Roa RN [facility] 01-06-2024 Telephone encounter Note Faxed lab orders to [phone] per Charis's request. Ashley Beltran T [facility] 01-03-2024 Note [facility] 01-03-2024 Telephone encounter Note Images from the original note were not included. Triage: Please see Dr. Bolanos's recommendations below for follow up. Thanks! I printed lab orders and will have them sent to facility. Jf Mann MD P [facility] Clerical Pool 1. Draw labs at facility a. Send labs orders to them b. Triage call results to Clara (his mother) in 1 week i. Will plan follow up 2. Continue tube feeding with iron and folic acid supplementation. [facility] 01-03-2024 Instructions Jf Waldron MD - 01/03/2024 4:04 PM EDT Draw labs at facility Send labs orders to them Triage call results to Clara (his mother) in 1 week Will plan follow up Continue tube feeding with iron and folic acid supplementation. documented in this encounter [facility] 01-03-2024 History of Presen t illness Narrative Images from the original note were not included. NAME: Lolis Quinones [facility] NO.: [id number] DATE OF SERVICE: January 03, 2024 (Sunil) Referring Provider: Self Referred Consultation requested by Self Referred for an opinion regarding Mr. Lolis Quinones III, and my final recommendations will be communicated back to the requesting physician by way of shared medical record or letter via [place] mail. Additional Clinicians involved in Lolis Quinones III's care: VIRTUAL VISIT PROGRESS NOTE This is a virtual visit using [employer] Video Visit. It required patient-provider interaction for the medical decision making as documented below. I have communicated my name and active licensure. The patient's identity and physical location were verified at the time of this visit. Either the patient or their legal manufacturer's representative has been informed of the risks and benefits of -- and alternatives to -- treatment through a remote evaluation and consents to proceed with the evaluation remotely. DIAGNOSIS: Anemia - GI bleed ASSESSMENT: 38 year old man with multiple chronic issues and locked-Syndrome with chronic Tube feeding. He had a GI bleed and was admitted to [facility] in November 2023 with Sepsis and GI bleeding. He had been on Eliquis which worsened the situation. He is now on Carafate and PPI that has helped improve the ulcers. Tube feeds do have iron and folic acid in them. He should continue to gradually improve without additional intervention. He likely has a baseline anemia associated with chronic disease but hopefully he will still recover to certain degree. PLAN: Draw labs at facility Send labs orders to them Triage call results to Clara (his mother) in 1 week Will plan follow up Continue tube feeding with iron and folic acid supplementation. HPI: CASE HISTORY: Reverse Chronological Order 11/28/2023 - CBC: 11.22 > 8.4 / 27.3 < 365 11/21/2023 - CBC: 21.88 > 9.5 / 33.1 < 435 11/21/2023-11/28/2023 - Admitted to [facility] for sepsis & GI bleeds 10/22/2023 - CBC: 13.67 > 10.4 / 33.4 < 479 10/09/2023 - CBC: 10.27 > 9.7 / 32.9 < 446 10/09/2023-10/23/2023 - Admitted to [facility] for decubitus ulcer Initial Visit, January 03, 2024: Virtual Visit Lolis Quinones III presents today for a virtual Hematology and Oncology evaluation. He is a 38 year old male with chronic anemia. 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 Most recent CBC from 11/28/2023: 11.22 > 8.4 / 27.3 < 365. He was hospitalized twice for GI bleeds, Protonix and carafate seem to be helping now. He does not have any current bleeds. He currently has decubitus ulcers. His nutritional supplements have folic acid and iron, and he is on Eliquis. Patient's mother Clara is with him. He is unable to provide any meaningful ROS. REVIEW OF SYSTEMS Per HPI and otherwise negative by full review of organ systems. ECOG PERFORMANCE STATUS: 4 PHYSICAL EXAMINATION: Vitals: There were no vitals taken for this visit. There is no height or weight on file to calculate BSA. No exam He only interacts with his eyes and slight facial expressions. ALLERGIES: ALLERGIES Allergen Reactions Jorge Inhibitors Rash, Unknown Beta-Blockers (Beta* Unknown Ciprofloxacin Unknown Fentanyl Shortness of Breath Fluoxetine Mental Status Change, Other: See Comments Sodium Chloride Unknown Calcium Channel Blo* Rash Clindamycin Unknown MEDICATIONS: apixaban (ELIQUIS) 5 mg tab(s) 1 tablet by G-TUBE route two times a day. cetirizine (ZYRTEC) 10 mg tablet 1 tablet by G-TUBE route once daily. white petrolatum-mineral oil (SOOTHE LUBRICANT EYE NIGHT TIME OINTMENT) ointment Use 1 Drop in both eyes as needed (dry eye). sodium hypochlorite (DAKIN'S SOLUTION) 0.125 % soln Irrigate as instructed once daily. Apply to gauze; change daily as needed for wound care for sacrum baclofen 5 mg tablet 5 mg by G-TUBE route three times a day. carboxymethylcellulose sodium (ARTIFICIAL TEARS) 1 % drops Use 1 Drop in both eyes three times a day. metoprolol tartrate, short acting, (LOPRESSOR) 25 mg tablet 25 mg by G-TUBE route two times a day. Hold for SBP less than 100, hold for HR less than 60 oxyCODONE IR (ROXICODONE) 10 mg tab 10 mg by G-TUBE route every 6 hours. ALPRAZolam (XANAX) 1 mg tablet 1 mg by G-TUBE route three times a day as needed for anxiety. acetaminophen (TYLENOL) 325 mg tablet 2 tablets by ORAL/FEEDING TUBE route every 4 hours as needed for fever (specify temp.). albuterol (PROVENTIL) 2.5 mg /3 mL (0.083 %) nebulizer solution Use 3 mL via nebulizer every 4 hours as needed for wheezing/shortness of breath. escitalopram oxalate (LEXAPRO) 10 mg tablet 1 tablet by ORAL/FEEDING TUBE route once daily. gabapentin (NEURONTIN) 300 mg/6 mL (6 mL) oral solution 6 mL by ORAL/FEEDING TUBE route three times a day for 30 days. glucagon 1 mg/mL injection Inject 1 mg subcutaneously as needed. melatonin 3 mg tablet 1 tablet by ORAL/FEEDING TUBE route at bedtime as needed for insomnia. polyethylene glycol 3350 17 gram packet 1 Packet by ORAL/FEEDING TUBE route once daily. Dissolve dose in 4 - 8 ounces of liquid and take as directed. senna (SENOKOT) 8.6 mg tab 1 tablet by ORAL/FEEDING TUBE route two times a day. sodium chloride 7% solution 7 % solution for nebulization Inhale 4 mL as instructed two times a day. albuterol (PROVENTIL) 2.5 mg /3 mL (0.083 %) nebulizer solution Use 3 mL via nebulizer two times a day. zinc oxide (DESITIN) 13 % crea Apply to affected area as needed (incontinence). zinc oxide (DESITIN) 13 % crea Apply to affected area two times a day. LABORATORY VALUES: WBC (k/uL) Date Value 11/28/2023 11.22 (H) RBC (m/uL) Date Value 11/28/2023 3.34 (L) Hemoglobin (g/dL) Date Value 11/28/2023 8.4 (L) Hematocrit (%) Date Value 11/28/2023 27.3 (L) MCV (fL) Date Value 11/28/2023 81.7 MCH (pg) Date Value 11/28/2023 25.1 (L) MCHC (g/dL) Date Value 11/28/2023 30.8 RDW-CV (%) Date Value 11/28/2023 18.0 (H) Platelet Count (k/uL) Date Value 11/28/2023 365 MPV (fL) Date Value 11/28/2023 10.8 Glucose (mg/dL) Date Value 11/28/2023 118 (H) BUN (mg/dL) Date Value 11/28/2023 7 (L) Creatinine (mg/dL) Date Value 11/28/2023 0.58 (L) Sodium (mmol/L) Date Value 11/28/2023 137 Potassium (mmol/L) Date Value 11/28/2023 3.5 (L) Chloride (mmol/L) Date Value 11/28/2023 104 CO2 (mmol/L) Date Value 11/28/2023 26 Protein, Total (g/dL) Date Value 11/25/2023 5.5 (L) Albumin (g/dL) Date Value 11/28/2023 2.8 (L) Calcium, Total (mg/dL) Date Value 11/28/2023 8.4 (L) Alkaline Phosphatase (U/L) Date Value 11/25/2023 90 Bilirubin, Total (mg/dL) Date Value 11/25/2023 0.2 AST (U/L) Date Value 11/25/2023 11 (L) ALT (U/L) Date Value 11/25/2023 7 (L) Cholesterol, Total (mg/dL) Date Value 11/22/2023 91 Triglyceride (mg/dL) Date Value 11/26/2023 187 (H) DIAGNOSIS: (D50.0) Iron deficiency anemia due to chronic blood loss (primary encounter diagnosis) Plan: COMPLETE BLOOD COUNT AND DIFFERENTIAL, COMPREHENSIVE METABOLIC PANEL, IRON AND TIBC, FERRITIN, VITAMIN B12, FOLATE, SERUM, ERYTHROPOIETIN/EPO, RETICULOCYTE COUNT, LACTATE DEHYDROGENASE, HAPTOGLOBIN PAST MEDICAL HISTORY Diagnosis Date Chronic respiratory failure with hypoxia (HCC) 10/10/2023 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 Ischemic stroke (HCC) 07/03/2023 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) 07/03/2023 Pressure injury of sacral region, stage 4 (HCC) 10/10/2023 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 PAST SURGICAL HISTORY Procedure Laterality Date TONSILLECTOMY & ADENOIDECTOMY <AGE 11 Tonsil/adenoidectomy Social History Tobacco Use Smoking status: Never Passive exposure: Past Smokeless tobacco: Never Substance Use Topics Alcohol use: No FAMILY HISTORY Problem Relation Age of Onset Ischemic Heart Disease Paternal Grandfather NV at 36 I spent a total of 60 minutes on the date of the service which included preparing to see the patient, [id number] patient care, completing clinical documentation, obtaining and/or reviewing separately obtained history, counseling and educating the patient/family/caregiver, ordering medications, tests, or procedures, independently interpreting results (not separately reported), communicating results to the patient/family/caregiver, and care coordination (not separately reported). Jf Waldron MD, CPE Hematology and Oncology Services Provided at: [place], [place] Scribe Attestation: This note was scribed by Nima Navarro on January 03, 2024 under the direction and supervision of Dr. Jf Waldron. I attest that all of the information documented is correct to the best of my knowledge. Provider Attestation: I, Jf Waldron MD, attest that all information documented by the above scribe is correct, and was supervised by me and under my direction. CC: SELF Sergei Root II, MD, MD [address] [facility] [address] [id number] documented in this encounter [facility] 01-02-2024 Telephone encounter Note Pt's mom called saying she spoke with pt's insurance company and they would need a PA for the MRI [facility] 01-02-2024 Miscellaneous Notes Pt's mom called saying she spoke with pt's insurance company and they would need a PA for the MRI Clara, pt's mom, called saying a follow-up MRI is supposed to be done originating from 10/14/23 MRI. I didn't see an order for an MRI, but she is needing a facility closer to where she's located since pt is quadriplegic. I did let her know that at your discretion, you would need to write an order for it. She is going to call around for a facility and will call back. documented in this encounter [facility] 01-01-2024 Telephone encounter Note Clara, pt's mom, called saying a follow-up MRI is supposed to be done originating from 10/14/23 MRI. I didn't see an order for an MRI, but she is needing a facility closer to where she's located since pt is quadriplegic. I did let her know that at your discretion, you would need to write an order for it. She is going to call around for a facility and will call back. [facility] 12-20-2023 Miscellaneous Notes Patient unable to get scan at [facility], needs a hosptial for a lift. Spoke to patients father who is also Lolis Quinones., I rescheduled this patient for [facility] on 01/17/24 @ 5pm. Patient is immobile & would need a hospital setting with the proper equipment to lift patient on & off the table. documented in this encounter [facility] 11-27-2023 Note HNO ID: [id number] Author: KATHIE BURROWS RN Service: Care Management Author Type: Registered Nurse Type: Care Mgt Progress Note Filed: 11/27/2023 15:06 Note Text: CARE MANAGEMENT DISCHARGE NOTE SERVICE DATE: November 27, 2023 SERVICE TIME: 3:02 PM Admission Date: 11/21/2023 LOS: 6 days Discharge Arrangement Discharge Arrangement: Half-Way Facility Caregiver Assessment Caregiver is ready, willing and able to meet the patient's needs as recommended by the inter-professional team: Yes Name of Caregiver: confirmed with facility patient can return Transportation Arrangements Transportation Arrangements: Ambulance Transportation Agency and Phone #:: [facility] [phone] Date of Trip: 11/28/23 Time of Trip: 1230 Type of Service: ALS Non-emergency Is Patient Medicaid Pending?: No Associate Professor Of Education Location: [facility] Destination: [facility] Handoff Communication: Handoff to: Other Caregiver Other Caregiver Name/Phone: updated Jackie CORCORAN with number for report [phone] and plan for DC tomorrow @ 12:30 pm Discharge Information Row Name Admission (Current) from 11/21/2023 in [facility] Intensive Care Unit Half-Way Facility Agency [facility] Met with father Lolis at bedside, he is in agreement with plan for return to [facility] tomorrow. He became tearful when expressing gratitude for the care his son has been provided, stated nurses are angels . 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 According to ED provider, he was never hypotensive and did not have a lactate. Fever was 102+ and he was tachycardic into the 140s. He remained on his baseline vent settings with VT 400, RR 14, 45% and PEEP 5 without issue. Vitals included HR 145, RR 19, BP 108/62 and SPO2 96 on 45% FIO2. He received 2L IVF and was started on broad spectrum antibiotics. ED report noted WBC 21,700, Hgb 10.3, Hct 35.5, Na 143, K 4.1, BUN 26, CR 0.87, Lactate 1.8. CXR: underexpanded lungs with mild bibasilar infiltrates versus atelectasis right greater than left. CT ABD/P Negative for acute process, CT Brain negative for acute process. Recently, he was treated for acute cholecystitis and had a percutaneous kwasi tube placed at [facility] which was removed 10/10/2022. ED provider initially requested patient to transfer to MICU at [facility] per family request but due to bed availability, patient is to be admitted to ICU at [facility] for Sepsis and Chronic Respiratory Failure requiring continuous ventilator support. 11/25 no fevers, baseline vent settings, EGD showed gastritis 11/26 no change, WBC decreasing, can be discharged tomorrow once last antibiotic dose is given Subjective INTERVAL EVENTS: No Change Objective MEDICATIONS: Current medications and allergies reviewed. Recommended/planned medication changes discussed in detail in the A/P section below. Please refer to [facility] for list of inpatient medications. VITAL SIGNS: BP 98/66 Pulse 87 Temp 36.8 ?C (98.3 ?F) (Axillary) Resp 20 Ht 162.6 cm (5' 4 ) Wt 74.2 kg (163 lb 9.3 oz) SpO2 96% BMI 28.08 kg/m? Current Weight: Weight: 76.2 kg (167 lb 15.9 oz) Admission Weight: Weight: 73.2 kg (161 lb 6 oz) PHYSICAL EXAM: General: Alert, no distress, cooperative, Obese Skin: Skin color, texture, turgor normal. No rashes or lesions. Eyes: PERRLA, EOMI Lungs: Coarse lung sounds bilaterally, on baseline vent settings, quite the amount of secretions Cardiac: Normal S1 and S2; no rubs, murmurs, or gallops, Rhythm: regular rate and rhythm, Rate: normal Abdomen: non revealing, positive bowel sounds, PEG in place Neuro: contractures on all extremities, can move eyes up and down, can move eyebrows and squeezes eyes shut. Good capacity to make decisions it seems by quick interview I had with him(appropriate answers(up for no and down for yes) Pulses: present Wound: sacral wound dressed, clean DATA: Diagnostic tests reviewed for today's visit: Most recent labs and imaging results. Most recent EKG ICU Checklist Last Documented/Reviewed time: 11/27/2023 11:45 AM A= Assess, Prevent, Manage Pain Pain adequately controlled?: Yes C= Choice of Sedation and Analgesia RASS at Goal?: Yes B= Both Spontaneous Awakening and Breathing Trials Ventilator: None D= Delirium: Assess, Prevent and Manage ICU Delirium Status: CAM Negative - no action required Sleep adequate?: Yes Restraint Status: None E= Early Mobility/Excercise ICU Mobility: ICU Mobility-Pt Has Been Out of Bed: No - Specify (Comment: bed bound) F= Family Engagement and Empowerment ICU plan of care visit at bedside in last 24 hours: Yes, Provider, RN, Patient/ designee ICU Disposition: ICU Disposition- Is Patient Clinically Ready to Transfer to [facility] or SDU?: No Discharge Planning: LTACH Prevention: Line Status: None Iverson Status: Present, will discontinue today Pressure Injury Status: Present on admission, specify GI/Stress Ulcer Prophylaxis: PPI Nutrition is at Goal: Yes VTE Prophylaxis: Chemoprophylaxis: No chemoprophylaxis Mechanical Prophylaxis: Knee high SCD No Chemoprophylaxis Reason: Bleeding risk Assessment AND Plan Neurology Ischemic stroke (HCC)- (present on admission) 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 According to ED provider, he was never hypotensive and did not have a lactate. Fever was 102+ and he was tachycardic into the 140s. He remained on his baseline vent settings with VT 400, RR 14, 45% and PEEP 5 without issue. Vitals included HR 145, RR 19, BP 108/62 and SPO2 96 on 45% FIO2. He received 2L IVF and was started on broad spectrum antibiotics. ED report noted WBC 21,700, Hgb 10.3, Hct 35.5, Na 143, K 4.1, BUN 26, CR 0.87, Lactate 1.8. CXR: underexpanded lungs with mild bibasilar infiltrates versus atelectasis right greater than left. CT ABD/P Negative for acute process, CT Brain negative for acute process. Recently, he was treated for acute cholecystitis and had a percutaneous kwasi tube placed at [facility] which was removed 10/10/2022. ED provider initially requested patient to transfer to MICU at [facility] per family request but due to bed availability, patient is to be admitted to ICU at [facility] for Sepsis and Chronic Respiratory Failure requiring continuous ventilator support. 11/25 no fevers, baseline vent settings, EGD showed gastritis Subjective INTERVAL EVENTS: No Change Objective MEDICATIONS: Current medications and allergies reviewed. Recommended/planned medication changes discussed in detail in the A/P section below. Please refer to [facility] for list of inpatient medications. VITAL SIGNS: BP 125/82 Pulse 113 Temp 37.9 ?C (100.2 ?F) (Axillary) Resp 21 Ht 162.6 cm (5' 4 ) Wt 76.2 kg (167 lb 15.9 oz) SpO2 92% BMI 28.84 kg/m? Current Weight: Weight: 76.2 kg (167 lb 15.9 oz) Admission Weight: Weight: 73.2 kg (161 lb 6 oz) PHYSICAL EXAM: General: Alert, no distress, cooperative, Obese Skin: Skin color, texture, turgor normal. No rashes or lesions. Eyes: PERRLA, EOMI Lungs: Coarse lung sounds bilaterally, on baseline vent settings, quite the amount of secretions Cardiac: Normal S1 and S2; no rubs, murmurs, or gallops, Rhythm: regular rate and rhythm, Rate: normal Abdomen: non revealing, positive bowel sounds, PEG in place Neuro: contractures on all extremities, can move eyes up and down, can move eyebrows and squeezes eyes shut. Good capacity to make decisions it seems by quick interview I had with him(appropriate answers(up for no and down for yes) Pulses: present Wound: sacral wound dressed, clean DATA: Diagnostic tests reviewed for today's visit: Most recent labs and imaging results. Most recent EKG ICU Checklist Last Documented/Reviewed time: 11/26/2023 6:08 PM A= Assess, Prevent, Manage Pain Pain adequately controlled?: Yes C= Choice of Sedation and Analgesia RASS at Goal?: Yes B= Both Spontaneous Awakening and Breathing Trials Ventilator: None D= Delirium: Assess, Prevent and Manage ICU Delirium Status: CAM Negative - no action required Sleep adequate?: Yes Restraint Status: None E= Early Mobility/Excercise ICU Mobility: ICU Mobility-Pt Has Been Out of Bed: No - Specify (Comment: bed bound) F= Family Engagement and Empowerment ICU plan of care visit at bedside in last 24 hours: Yes, Provider, RN, Patient/ designee ICU Disposition: ICU Disposition- Is Patient Clinically Ready to Transfer to RNF or SDU?: No Discharge Planning: LTACH Prevention: Line Status: None Iverson Status: Present, will maintain Iverson Status Details: Urinary retention or obstruction Pressure Injury Status: Present on admission, specify GI/Stress Ulcer Prophylaxis: PPI Nutrition is at Goal: Advancing to goal VTE Prophylaxis: Chemoprophylaxis: No chemoprophylaxis Mechanical Prophylaxis: Knee high SCD No Chemoprophylaxis Reason: Bleeding risk Assessment AND Plan Neurology Ischemic stroke (HCC)- (present on admission) 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 [facility] 11-26-2023 Note HNO ID: [id number] Author: SHANNA SMITH APRN.FUNERAL DRIVER Service: Gastroenterology Author Type: Nurse Practitioner Type: Plan of Care Filed: 11/26/2023 14:19 Note Text: S/p EGD with Dr. Alatorre today Impression: - Normal examined duodenum. - Gastritis with hemorrhage. Biopsied. - Intact gastrostomy with a patent G-tube present characterized by healthy appearing mucosa. - Z-line, 38 cm from the incisors. - Normal esophagus. - Edematous/narrow hypopharynx requiring pediatric endoscope. - No major findings to explain coffee ground emesis, but hemorrhagic gastritis in the setting of apixaban may cause bloody emesis Recommendation: - Resume previous diet. - Continue present medications. - Continue daily PPI therapy - Restart anticoagulant therapy no earlier than tomorrow morning - The patient is not currently taking anticoagulant or antiplatelet agents. - Await pathology results. - No ibuprofen, naproxen, or other non-steroidal anti-inflammatory drugs. - Return to referring physician as previously scheduled. No urgent GI needs. Will follow as needed [facility] 11-26-2023 Note HNO ID: [id number] Author: KELSEY DEGROOT APRN.LAYA Service: Neurology General Author Type: Nurse Practitioner Type: Plan of Care Filed: 11/26/2023 12:59 Note Text: TELENEUROLOGY CONSULT PROGRESS NOTE Patient seen using [facility]. Recommendations are placed in the chart. Please review. For questions after hours, when teleneurologist is not available, for CHILO: Please Page [phone] for the [facility] from 5P to 8A Please follow normal inpatient acute stroke procedures per routine as needed. SERVICE DATE: 11/26/2023 SERVICE TIME: 12:58 PM Results of chart reviewed and the recommendations are: Incidentally noted, partially imaged cervical spine stenosis can be followed outpatient in spine [facility]. Reportedly already has history of C spine surgery. Hx of locked-in syndrome Teleneurology will not follow this patient. Please call for additional assistance. SIGNATURE: Kelsey Degroot APRN.LAYA PATIENT NAME: Lolis Quinones III DATE: November 26, 2023 TIME: 12:58 PM PAGER/CONTACT #: [facility] 11-26-2023 Note HNO ID: [id number] Author: KATHIE BURROWS RN Service: Care Management Author Type: Registered Nurse Type: Care Mgt Progress Note Filed: 11/26/2023 12:05 Note Text: CARE MANAGEMENT PROGRESS NOTE SERVICE DATE: 11/26/2023 SERVICE TIME: 12:04 PM LOS: 5 days Updated clinical sent to [facility]. Plan is to return when medically cleared. Interdisciplinary rounds occurred this am. SIGNATURE: Kathie Burrows RN PATIENT NAME: Lolis Quinones III DATE: November 26, 2023 TIME: 12:04 PM PAGER/CONTACT #: [phone] [facility] 11-26-2023 Note HNO ID: [id number] Author: GENEVA SHARP MD Service: Infectious Disease Author Type: Physician Type: Progress Notes Filed: 11/26/2023 11:45 Note Text: INFECTIOUS DISEASE - PROGRESS NOTE Patient Name: Lolis Quinones III Date of : 1985 SUBJECTIVE: Chief complaint / reason for follow up visit: Continuing to follow for aspiration pneumonia. Interval Events: No acute events. Remains afebrile with improved leukocytosis. Stable on baseline vent settings. Review of Systems: As above otherwise negative. OBJECTIVE: BP 113/72 Pulse 91 Temp 36.7 ?C (98 ?F) (Axillary) Resp 20 Ht 162.6 cm (5' 4 ) Wt 76.2 kg (167 lb 15.9 oz) SpO2 94% BMI 28.84 kg/m? Physical Examination: Constitutional: no distress, resting comfortably on baseline vent settings Skin: no rash Eyes: no scleral icterus Head/Face/Neck: supple neck Respiratory/Chest: clear bilaterally and anteriorly, no crackles or rhonchi, no wheeze Cardiovascular: rrr, no murmur Gastrointestinal: non tender, normal sounds, peg in place : iverson in place Musculoskeletal: no joint swelling Extremities: no rash, no edema Neurological: bed bound, communicates with eyes (up is no , down is yes ) Psychological: appropriate behavior Stool: Date 11/25/23 07 - 11/26/23 0659 11/26/23 07 - 11/27/23 0659 Shift 6709-9056 0467-6687 4437-7538 24 Hour Total 3164-2912 4286-7781 3482-2998 24 Hour Total INTAKE IV 200 200 Volume (mL) (potassium chloride iv piggyback 20 mEq/100 mL) 100 100 Volume (mL) (meropenem 1 g in NaCl 0.9% 100 mL Vial-Bag (MERREM)) 100 100 Shift Total 200 200 OUTPUT Urine 268 648 3223 2675 Output ( Indwelling Urinary Catheter 11/21/23 1600 [facility] Coude 16 Fr) 491 073 1092 2675 Shift Total 782 705 0254 2675 Weight (kg) 76.2 76.2 76.2 76.2 76.2 76.2 76.2 76.2 Laboratory Studies (I personally reviewed the clinical labs and microbiology data): WBC (k/uL) Date Value 11/26/2023 10.68 Creatinine (mg/dL) Date Value 11/26/2023 0.50 01/16/2005 1.0 Estimated Creatinine Clearance: 185.2 mL/min (A) (based on SCr of 0.5 mg/dL (L)). Microbiology: 11/20 l ( klebsiella and acientobacter susceptibilities pending) urine cx klebsiella pneumonia >100,000 Antibiotic Interpretation Method Status Ampicillin Resistant MINIMUM INHIBITORY CONCENTRATION(VITEK) Final Cefazolin Resistant MINIMUM INHIBITORY CONCENTRATION(VITEK) Final For uncomplicated urinary tract infections, cefazolin results can be used to predict susceptibility or resistance to cephalexin. Ceftriaxone Resistant MINIMUM INHIBITORY CONCENTRATION(VITEK) Final Cefepime Resistant MINIMUM INHIBITORY CONCENTRATION(VITEK) Final Ertapenem Susceptible MINIMUM INHIBITORY CONCENTRATION(VITEK) Final Meropenem Susceptible MINIMUM INHIBITORY CONCENTRATION(VITEK) Final Gentamicin Susceptible MINIMUM INHIBITORY CONCENTRATION(VITEK) Final Tobramycin Susceptible MINIMUM INHIBITORY CONCENTRATION(VITEK) Final Trimeth sulfameth Resistant MINIMUM INHIBITORY CONCENTRATION(VITEK) Final Ciprofloxacin Intermediate MINIMUM INHIBITORY CONCENTRATION(VITEK) Final Nitrofurantoin Resistant MINIMUM INHIBITORY CONCENTRATION(VITEK) Final 11/20 blood cx NGTD 08/13/2023: Respiratory culture from [facility] with ESBL Klebsiella (obtained from care everywhere) Other microbiology data: 11/21/2023: Strep pneumo urine antigen negative, Legionella urine antigen pending 11/21/2023: Staph aureus nasal PCR negative 11/21/2023: COVID-19, influenza, RSV testing negative Imaging (I personally visualized the films below): 11/22/2023 CT abd and chest reviewed 1. Consolidation and airways disease throughout the right lower lobe and in the posterior aspects of the remaining right lung. Left lower lung consolidation with a small left pleural effusion. Bilateral subsegmental airway mucus plugging. Findings are concerning for pneumonia or other pneumonitis such as aspiration. 2. Redemonstration of a sacral decubitus ulcer, which appears mildly smaller compared to the prior exam. No underlying osseous erosions to suggest acute osteomyelitis. Consolidation and airways disease throughout the right lower lobe and in the posterior aspects of the remaining right lung. Left lower lung consolidation with a small left pleural effusion. Bilateral subsegmental airway mucus plugging. Findings are concerning for pneumonia or other pneumonitis such as aspiration. IMPRESSIONS: 1. Aspiration pneumonia in the setting of tracheostomy chronic vent dependence --- Hx of chronic trach with ventilator dependence, and PEG tube presenting with increased shortness of breath, fevers, and leukocytosis after reported vomiting episodes prior to admission and in the ED --- Febrile to 38.5 with a leukocytosis of 21.88 on admission --- Sputum with acinetobacter baumannii (with multiple resistances, s to bactrim) and klebsiella pneumonia (more content not included)... [facility] 11-25-2023 Note HNO ID: [id number] Author: NIGEL GUTIERREZ MD Service: Anesthesiology Author Type: Anesthesiologist Type: Progress Notes Filed: 11/25/2023 19:34 Note Text: SERVICE DATE: 11/25/2023 SERVICE TIME: 5:42 PM [facility] PROGRESS NOTE BRIEF HPI: Subjective INTERVAL EVENTS: No Change Objective MEDICATIONS: Current medications and allergies reviewed. Recommended/planned medication changes discussed in detail in the A/P section below. Please refer to [facility] for list of inpatient medications. VITAL SIGNS: BP 127/70 Pulse 92 Temp 37.3 ?C (99.1 ?F) (Axillary) Resp 20 Ht 162.6 cm (5' 4 ) Wt 76.2 kg (167 lb 15.9 oz) SpO2 96% BMI 28.84 kg/m? Current Weight: Weight: 76.2 kg (167 lb 15.9 oz) Admission Weight: Weight: 73.2 kg (161 lb 6 oz) PHYSICAL EXAM: General: Alert, no distress, cooperative, Obese Skin: Skin color, texture, turgor normal. No rashes or lesions. Eyes: PERRLA, EOMI Lungs: Coarse lung sounds bilaterally, on baseline vent settings, quite the amount of secretions Cardiac: Normal S1 and S2; no rubs, murmurs, or gallops, Rhythm: regular rate and rhythm, Rate: normal Abdomen: non revealing, positive bowel sounds, PEG in place Neuro: contractures on all extremities, can move eyes up and down, can move eyebrows and squeezes eyes shut. Good capacity to make decisions it seems by quick interview I had with him(appropriate answers(up for no and down for yes) Pulses: present Wound: sacral wound dressed, clean per report DATA: Diagnostic tests reviewed for today's visit: Most recent labs and imaging results. Most recent EKG ICU Checklist Last Documented/Reviewed time: 11/25/2023 4:58 PM A= Assess, Prevent, Manage Pain Pain adequately controlled?: Yes C= Choice of Sedation and Analgesia RASS at Goal?: Yes B= Both Spontaneous Awakening and Breathing Trials Ventilator: None D= Delirium: Assess, Prevent and Manage ICU Delirium Status: CAM Negative - no action required Sleep adequate?: Yes Restraint Status: None E= Early Mobility/Excercise ICU Mobility: ICU Mobility-Pt Has Been Out of Bed: No - Specify (Comment: bed bound) F= Family Engagement and Empowerment ICU plan of care visit at bedside in last 24 hours: Yes, Provider, RN, Patient/ designee ICU Disposition: ICU Disposition- Is Patient Clinically Ready to Transfer to [facility] or SDU?: No Discharge Planning: LTACH Prevention: Line Status: None Iverson Status: Present, will maintain Iverson Status Details: Urinary retention or obstruction Pressure Injury Status: Present on admission, specify GI/Stress Ulcer Prophylaxis: PPI Nutrition is at Goal: Advancing to goal VTE Prophylaxis: Chemoprophylaxis: No chemoprophylaxis Mechanical Prophylaxis: Knee high SCD No Chemoprophylaxis Reason: Bleeding risk Assessment AND Plan Neurology Ischemic stroke (HCC)- (present on admission) 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 Baseline Vent settings Needs aggressive bronchopulmonary hygiene and when feasible 90degree turning on the side to help with secretion clearance Chronic respiratory failure (HCC)- (present on admission) on baseline vent settings aspiration? cultures positive for carbapenem resistant A. Baumannii and carbapenem sensitive K.Pneumoniae, has improved on meropenem, continue for now, likely Acinetobacter colonization Discuss with ID the utility of inhaled aminoglycozides Aggressive bronchopulmonary hygiene Gastrointestinal Coffee ground emesis GI to perform EGD tomorrow PPI and sucralfate Malnutrition of moderate degree (HCC)- (present on admission) restart tube feeds, DC TPN. Nephrology Urinary tract infection associated with indwelling urethral catheter (HCC) (HCC) On meropenem, unfortunately has urinary retention without iverson Allergy/Immunology * Sepsis (HCC)- (present on admission) Urine vs pulmonary source Continue meropenem given clinical improvement Low threshold for inhaled aminoglycozides Dermatology Sacral wound, initial encounter see decubitus ulcer Other History of DVT (deep vein thrombosis) holding eliquis due to potential GI bleed, awaiting GI procedure(tomorrow under anesthesia) Decubitus ulcer- (present on admission) optimize nutrition, Turn q2h, wound consult. Unlikely the source of infection Medication and Non-Pharmacologic VTE Prophylaxis/Anticoagulants 11/21/23 1500 activity - mobilize patient (fl,oh) VTE Prophylaxis: Contraindicated GI bleed p (more content not included)... [facility] 11-25-2023 Note HNO ID: [id number] Author: GENEVA SHARP MD Service: Infectious Disease Author Type: Physician Type: Progress Notes Filed: 11/25/2023 11:51 Note Text: INFECTIOUS DISEASE - PROGRESS NOTE Patient Name: Lolis Quinones III Date of : 1985 SUBJECTIVE: Chief complaint / reason for follow up visit: Continuing to follow for aspiration pneumonia. Interval Events: No acute events. Remains on baseline vent settings. No fevers. Review of Systems: As above otherwise negative. OBJECTIVE: BP 127/70 Pulse 92 Temp 37.3 ?C (99.1 ?F) (Axillary) Resp 20 Ht 162.6 cm (5' 4 ) Wt 76.2 kg (167 lb 15.9 oz) SpO2 98% BMI 28.84 kg/m? Physical Examination: Constitutional: no distress, resting comfortably on baseline vent settings Skin: no rash Eyes: no scleral icterus Head/Face/Neck: supple neck Respiratory/Chest: clear bilaterally and anteriorly, no crackles or rhonchi, no wheeze Cardiovascular: rrr, no murmur Gastrointestinal: non tender, normal sounds, peg in place : iverson in place Musculoskeletal: no joint swelling Extremities: no rash, no edema Neurological: no focal deficits, no speech difficulties Psychological: appropriate behavior Stool: Date 11/24/23 0700 - 11/25/23 0659 11/25/23 0700 - 11/26/23 0659 Shift 3785-7168 1464-0990 6026-5885 24 Hour Total 0356-6449 3633-7757 2161-9467 24 Hour Total INTAKE IV 1282 1282 Volume (mL) (meropenem 1 g in NaCl 0.9% 100 mL Vial-Bag (MERREM)) 100 100 Volume (mL) (lactated ringers iv infusion) 1182 1182 TPN/PPN 1826 1826 Volume (mL) (Parenteral Nutrition - Adult) 1182 1182 Volume (mL) (Parenteral Nutrition - Adult) 644 644 Irrigants 50 90 60 200 Irrigant/Flush Amount In mL (I/O) (GI/ Feeding Gastric Right Abdomen) 50 90 60 200 Shift Total 50 90 3168 3308 OUTPUT Urine 8048 665 7648 2865 300 300 Output ( Indwelling Urinary Catheter 11/21/23 1600 [facility] Coude 16 Fr) 4310 890 6931 2865 300 300 Tubes 140 160 300 Output mL (I/O) (GI/ Feeding Gastric Right Abdomen) 140 160 300 # of BMs Stool Incontinence 1 x 1 x Number of BMs 1 x 1 x Shift Total 4920 791 3216 3165 300 300 Weight (kg) 76.7 76.7 76.2 76.2 76.2 76.2 76.2 76.2 Laboratory Studies (I personally reviewed the clinical labs and microbiology data): WBC (k/uL) Date Value 11/25/2023 12.71 Creatinine (mg/dL) Date Value 11/25/2023 0.52 01/16/2005 1.0 Estimated Creatinine Clearance: 178 mL/min (A) (based on SCr of 0.52 mg/dL (L)). Microbiology: 11/20 l ( klebsiella and acientobacter susceptibilities pending) urine cx klebsiella pneumonia >100,000 Antibiotic Interpretation Method Status Ampicillin Resistant MINIMUM INHIBITORY CONCENTRATION(VITEK) Final Cefazolin Resistant MINIMUM INHIBITORY CONCENTRATION(VITEK) Final For uncomplicated urinary tract infections, cefazolin results can be used to predict susceptibility or resistance to cephalexin. Ceftriaxone Resistant MINIMUM INHIBITORY CONCENTRATION(VITEK) Final Cefepime Resistant MINIMUM INHIBITORY CONCENTRATION(VITEK) Final Ertapenem Susceptible MINIMUM INHIBITORY CONCENTRATION(VITEK) Final Meropenem Susceptible MINIMUM INHIBITORY CONCENTRATION(VITEK) Final Gentamicin Susceptible MINIMUM INHIBITORY CONCENTRATION(VITEK) Final Tobramycin Susceptible MINIMUM INHIBITORY CONCENTRATION(VITEK) Final Trimeth sulfameth Resistant MINIMUM INHIBITORY CONCENTRATION(VITEK) Final Ciprofloxacin Intermediate MINIMUM INHIBITORY CONCENTRATION(VITEK) Final Nitrofurantoin Resistant MINIMUM INHIBITORY CONCENTRATION(VITEK) Final 11/20 blood cx NGTD 08/13/2023: Respiratory culture from [facility] with ESBL Klebsiella (obtained from care everywhere) Other microbiology data: 11/21/2023: Strep pneumo urine antigen negative, Legionella urine antigen pending 11/21/2023: Staph aureus nasal PCR negative 11/21/2023: COVID-19, influenza, RSV testing negative Imaging (I personally visualized the films below): 11/22/2023 CT abd and chest reviewed 1. Consolidation and airways disease throughout the right lower lobe and in the posterior aspects of the remaining right lung. Left lower lung consolidation with a small left pleural effusion. Bilateral subsegmental airway mucus plugging. Findings are concerning for pneumonia or other pneumonitis such as aspiration. 2. Redemonstration of a sacral decubitus ulcer, which appears mildly smaller compared to the prior exam. No underlying osseous erosions to suggest acute osteomyelitis. Consolidation and airways disease throughout the right lower lobe and in the posterior aspects of the remaining right lung. Left lower lung consolidation with a small left pleural effusion. Bilateral subsegmental airway mucus plugging. Findings are concerning for pneumonia or other pneumonitis such as aspiration. IMPRESSIONS: 1. Aspiration pneumonia in the setting of tracheostomy chronic vent dependence --- Hx of chronic trach w (more content not included)... [facility] 11-25-2023 Note HNO ID: [id number] Author: CASIE OLIVEIRA PA-C Service: Neurology General Author Type: Physician Allocation Analyst Type: Plan of Care Filed: 11/25/2023 10:55 Note Text: TELENEUROLOGY CONSULT PROGRESS NOTE Patient seen using [facility]. Recommendations are placed in the chart. Please review. For questions after hours, when telene[facility]rologist is not available, [facility]: Please Page [phone] for the [facility] from 5 pm to 8 am Please follow normal inpatient acute stroke procedures per routine as needed. SERVICE DATE: 11/25/2023 SERVICE TIME: 1044 Called and spoke with patient's Father Adam regarding MRI results per request. Discussed that no acute findings on MRI brain. Discussed the tortuosity in left vertebral artery, but this was seen previously based on radiology reports. Discussed that this can have many causes, the most common being high blood pressure. Per Dr. Villalba's note, thought symptoms were more related to metabolic encephalopathy. MRI brain did show degenerative changes in the cervical spine. Per Adam, patient had cervical spine surgery around 2015 in [place], although he cannot recall specifics. Could consider referral to [facility] although focus may be on pain management if patient can feel pain. Have not yet seen an examined patient. Will decide on need for referral after seeing. Teleneurology service will follow up pending studies. 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 According to ED provider, he was never hypotensive and did not have a lactate. Fever was 102+ and he was tachycardic into the 140s. He remained on his baseline vent settings with VT 400, RR 14, 45% and PEEP 5 without issue. Vitals included HR 145, RR 19, BP 108/62 and SPO2 96 on 45% FIO2. He received 2L IVF and was started on broad spectrum antibiotics. ED report noted WBC 21,700, Hgb 10.3, Hct 35.5, Na 143, K 4.1, BUN 26, CR 0.87, Lactate 1.8. CXR: underexpanded lungs with mild bibasilar infiltrates versus atelectasis right greater than left. CT ABD/P Negative for acute process, CT Brain negative for acute process. Recently, he was treated for acute cholecystitis and had a percutaneous kwasi tube placed at [facility] which was removed 10/10/2022. ED provider initially requested patient to transfer to MICU at [facility] per family request but due to bed availability, patient is to be admitted to ICU at [facility] for Sepsis and Chronic Respiratory Failure requiring continuous ventilator support. Subjective INTERVAL EVENTS: No further signs of bleeding; PICC placed for TPN Objective MEDICATIONS: Current medications and allergies reviewed. Recommended/planned medication changes discussed in detail in the A/P section below. Please refer to [facility] for list of inpatient medications. VITAL SIGNS: BP 117/80 Pulse 91 Temp 37.2 ?C (99 ?F) (Axillary) Resp 22 Ht 162.6 cm (5' 4 ) Wt 76.7 kg (169 lb 1.5 oz) SpO2 98% BMI 29.02 kg/m? Current Weight: Weight: 76.7 kg (169 lb 1.5 oz) Admission Weight: Weight: 73.2 kg (161 lb 6 oz) PHYSICAL EXAM: NAD Oscillatory head and eye movements; still able to answer yes/no with eyes HDS, NSR Baseline vent settings, still with secretions Adequate UOP +BMs DATA: Diagnostic tests reviewed for today's visit: Most recent labs ICU Checklist Last Documented/Reviewed time: 11/24/2023 2:34 PM A= Assess, Prevent, Manage Pain Pain adequately controlled?: Yes C= Choice of Sedation and Analgesia RASS at Goal?: Yes B= Both Spontaneous Awakening and Breathing Trials Ventilator: None D= Delirium: Assess, Prevent and Manage ICU Delirium Status: CAM Negative - no action required Sleep adequate?: Yes Restraint Status: None E= Early Mobility/Excercise ICU Mobility: ICU Mobility-Pt Has Been Out of Bed: No - Specify F= Family Engagement and Empowerment ICU plan of care visit at bedside in last 24 hours: Yes, Provider, RN, Patient/ designee ICU Disposition: ICU Disposition- Is Patient Clinically Ready to Transfer to [facility] or SDU?: No Discharge Planning: SNF Prevention: Line Status: None Iverson Status: Present, will maintain Iverson Status Details: Urinary retention or obstruction Pressure Injury Status: Present on admission, specify GI/Stress Ulcer Prophylaxis: PPI Nutrition is at Goal: No, nutrition consult indicated VTE Prophylaxis: Chemoprophylaxis: No chemoprophylaxis Mechanical Prophylaxis: Knee high SCD No Chemoprophylaxis Reason: Bleeding risk Assessment AND Plan #Acute on chronic hypoxic respiratory failure #Sepsis ?-fevers, leukocytosis - improved ?-multiple potential sources: pneumonia most likely but also gallbladder, urine, and known sacral wound ?-cultures as noted above Urine +Klebsiella Tracheal aspirate +Acinetobacter, Klebsiella ?-UA with +nitrites, +LE, many bacteria - iverson exchanged on admission #Pneumonia ?-likely aspiration 2/2 emesis, in turn likely d/t GI bleed ?-on baseline vent settings ?-CT with evidence of subsegmental mucous plugging - already receiving hypertonic saline, continue mucomyst and cough assist for airway clearance ?-continue meropenem for hx ESBL Klebsiella pneumonia #Coffee ground emesis ?-GI consulted ?-not a candidate for endoscopy due to locked jaw, only able to open mouth several centimeters - per parents this is mostly d/t muscular rigidity as opposed to anatomi (more content not included)... [facility] 11-24-2023 Note HNO ID: [id number] Author: JENNIFER EVANS RN Service: PICC Team Author Type: Registered Nurse Type: Procedures Filed: 11/24/2023 10:54 Note Text: PICC NURSE INSERTION NOTE DATE OF PROCEDURE: November 24, 2023 TIME OF PROCEDURE: 1030 ORDERING PHYSICIAN: Dr. Schrader INFORMED CONSENT: Obtained per hospital policy. INDICATION FOR LINE PLACEMENT: IV access CONDITION OF LINE PLACEMENT: Sterile PRIMARY PROCEDURALIST: Amy Cedillo RN NEW ACCOUNTS BANKING REPRESENTATIVE: Jennifer Evans RN PRE-PROCEDURE REVIEW ALLERGIES Allergen Reactions Fentanyl Shortness of Breath Known History of Upper Venous Thrombosis: Yes, Pt's mother reports he has a remote history of DVTs both arms Known History of Permanent Pacemaker or Automated Implanted Cardiac Device: No Previous Breast Surgery of Lymph Node Dissection: No Estimated Glomerular Filtration Rate Date Value Ref Range Status 11/24/2023 136 >=60 mL/min/1.73m? Final Comment: Estimated Glomerular Filtration Rate (eGFR) is calculated using the 2020 CKD-EPI creatinine equation. This equation utilizes serum creatinine, sex, and age as parameters. The creatinine assay has traceable calibration to isotope dilution-mass spectrometry. Refer to KDIGO guidelines for clinical interpretation. In patients with unstable renal function, e.g. those with acute kidney injury, the eGFR may not accurately reflect actual GFR. History of Renal Disease: No Ultrasound Assessment Complete: Yes PROCEDURE NARRATIVE SAFE PRACTICE Hand Hygiene per Hospital Policy: Yes Skin Preparation Unit Dose Applicator Used: Chloraprep (CHG + alcohol), allowed to dry. Procedure Surface Cleansed with Antimicrobial Wipes: Yes Barriers Used by Proceduralist and all Assisting Personnel: Yes UNIVERSAL PROTOCOL / SAFETY CHECKLIST Procedure to be Performed: PICC Sign In: A Moment of CARE was completed. Personnel directly involved with the procedure wore the appropriate PPE (Personal Protective Equipment). Patient/Surrogate Stated/Verified: PATIENT VERIFIED(optional for EMERGENT procedures): Patient name, Date of , Relevant allergies, and The intended procedure Time Out Communication: Intended patient and procedure match the source documents. Consent documented and matches the intended procedure. Relevant labs, photos, and/or imaging studies have been reviewed. Correct side/site marked and visible. Medications required for procedure verified. Fire risk assessed and interventions discussed. Sign Out: SIGN OUT (optional for EMERGENT procedures): No specimen collected. Jennifer Evans RN CATHETER PLACEMENT Brand: [employer] Lot: [id number] Number of Lumens: 2 Type of PICC: Power Injectable PICC Lumen Size: 5 Italian PLACEMENT TECHNIQUE Lidocaine: Yes, Lidocaine 1% Volume 2 mL Subcutaneous Modified Seldinger Technique Used to Place Line via the Left Basilic Ultrasound Guidance: Yes Number of Attempts at Insertion: 1 Ensured control of guidewire during all aspects of the procedure: Yes Accounted for entire guidewire upon removal: Yes Internal Length: 42 cm External Length: 0 cm Trim Length: 42 cm Mid-Arm Circumference: 30 centimeters Post Insertion Pain Level Related to Procedure: 0 Action Taken to Address Pain: None needed Verified Placement: Blood return and flushes with ease and Tip location system or device indicates the tip is located in the SVC/CAJ. Line was Flushed with 20 mL normal saline Line Secured with: Securement device Sterile Dressing Applied and Dated: Yes Sterile Caps on all Ports Prior to Leaving Procedure Area: Yes, Disinfection caps applied SPECIMENS: None COMPLICATIONS: None Patient Education Materials: Placed in chart [facility] Central Line Insertion checklist was utilized during this procedure. 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 According to ED provider, he was never hypotensive and did not have a lactate. Fever was 102+ and he was tachycardic into the 140s. He remained on his baseline vent settings with VT 400, RR 14, 45% and PEEP 5 without issue. Vitals included HR 145, RR 19, BP 108/62 and SPO2 96 on 45% FIO2. He received 2L IVF and was started on broad spectrum antibiotics. ED report noted WBC 21,700, Hgb 10.3, Hct 35.5, Na 143, K 4.1, BUN 26, CR 0.87, Lactate 1.8. CXR: underexpanded lungs with mild bibasilar infiltrates versus atelectasis right greater than left. CT ABD/P Negative for acute process, CT Brain negative for acute process. Recently, he was treated for acute cholecystitis and had a percutaneous kwasi tube placed at [facility] which was removed 10/10/2022. ED provider initially requested patient to transfer to MICU at [facility] per family request but due to bed availability, patient is to be admitted to ICU at [facility] for Sepsis and Chronic Respiratory Failure requiring continuous ventilator support. Subjective INTERVAL EVENTS: received 1u pRBCs for Hgb 6.8-->8.2 Objective MEDICATIONS: Current medications and allergies reviewed. Recommended/planned medication changes discussed in detail in the A/P section below. Please refer to [facility] for list of inpatient medications. VITAL SIGNS: BP 109/67 Pulse 113 Temp 36.9 ?C (98.5 ?F) (Axillary) Resp 20 Ht 162.6 cm (5' 4 ) Wt 75.8 kg (167 lb 1.7 oz) SpO2 96% BMI 28.68 kg/m? Current Weight: Weight: 75.8 kg (167 lb 1.7 oz) Admission Weight: Weight: 73.2 kg (161 lb 6 oz) PHYSICAL EXAM: Well nourished, NAD HDS, NSR Baseline vent settings; thick secretions Adequate UOP +BMs DATA: Diagnostic tests reviewed for today's visit: Most recent labs Urine Culture: >100K CFU Klebsiella pneumoniae, susceptibilities pending Blood Culture: NGTD Respiratory culture: Many Acinetobacter baumannii; Moderate Klebsiella pneumoniae ICU Checklist Last Documented/Reviewed time: 11/23/2023 11:33 AM A= Assess, Prevent, Manage Pain Pain adequately controlled?: Yes C= Choice of Sedation and Analgesia RASS at Goal?: Yes B= Both Spontaneous Awakening and Breathing Trials Ventilator: None D= Delirium: Assess, Prevent and Manage ICU Delirium Status: CAM Negative - no action required Sleep adequate?: Yes Restraint Status: None E= Early Mobility/Excercise ICU Mobility: ICU Mobility-Pt Has Been Out of Bed: No - Specify F= Family Engagement and Empowerment ICU plan of care visit at bedside in last 24 hours: Patient/ Family updated ICU Disposition: ICU Disposition- Is Patient Clinically Ready to Transfer to [facility] or SDU?: No Discharge Planning: SNF Prevention: Line Status: None Iverson Status: Present, will maintain Iverson Status Details: Urinary retention or obstruction Pressure Injury Status: Present on admission, specify GI/Stress Ulcer Prophylaxis: PPI Nutrition is at Goal: No, nutrition consult indicated VTE Prophylaxis: Chemoprophylaxis: No chemoprophylaxis Mechanical Prophylaxis: Knee high SCD No Chemoprophylaxis Reason: Bleeding risk, Active bleeding Assessment AND Plan #Acute on chronic hypoxic respiratory failure #Sepsis -fevers, leukocytosis - improved -multiple potential sources: pneumonia most likely but also gallbladder, urine, and known sacral wound -cultures as noted above Urine +Klebsiella Tracheal aspirate +Acinetobacter, Klebsiella -UA with +nitrites, +LE, many bacteria - iverson exchanged on admission #Pneumonia -likely aspiration 2/2 emesis, in turn likely d/t GI bleed -on baseline vent settings -CT with evidence of subsegmental mucous plugging - already receiving hypertonic saline, continue mucomyst and cough assist for airway clearance -continue meropenem for hx ESBL Klebsiella pneumonia #Coffee ground emesis -GI consulted -not a candidate for endoscopy due to locked jaw, only able to open mouth several centimeters - per parents this is mostly d/t muscular rigidity as opposed to anatomic; will r (more content not included)... 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 According to ED provider, he was never hypotensive and did not have a lactate. Fever was 102+ and he was tachycardic into the 140s. He remained on his baseline vent settings with VT 400, RR 14, 45% and PEEP 5 without issue. Vitals included HR 145, RR 19, BP 108/62 and SPO2 96 on 45% FIO2. He received 2L IVF and was started on broad spectrum antibiotics. ED report noted WBC 21,700, Hgb 10.3, Hct 35.5, Na 143, K 4.1, BUN 26, CR 0.87, Lactate 1.8. CXR: underexpanded lungs with mild bibasilar infiltrates versus atelectasis right greater than left. CT ABD/P Negative for acute process, CT Brain negative for acute process. Recently, he was treated for acute cholecystitis and had a percutaneous kwasi tube placed at [facility] which was removed 10/10/2022. ED provider initially requested patient to transfer to MICU at [facility] per family request but due to bed availability, patient is to be admitted to ICU at [facility] for Sepsis and Chronic Respiratory Failure requiring continuous ventilator support. Subjective INTERVAL EVENTS: No change Objective MEDICATIONS: Current medications and allergies reviewed. Recommended/planned medication changes discussed in detail in the A/P section below. Please refer to [facility] for list of inpatient medications. VITAL SIGNS: BP 106/60 Pulse 104 Temp 37.8 ?C (100 ?F) (Axillary) Resp 20 Ht 162.6 cm (5' 4 ) Wt 75.8 kg (167 lb 1.7 oz) SpO2 96% BMI 28.68 kg/m? Current Weight: Weight: 75.8 kg (167 lb 1.7 oz) Admission Weight: Weight: 73.2 kg (161 lb 6 oz) PHYSICAL EXAM: Awake, alert HDS, sinus tachycardia Baseline vent settings Adequate UOP PEG to suction +BM this am, nonbloody, not melanotic DATA: Diagnostic tests reviewed for today's visit: Most recent labs and imaging results. CT C/A/P 11/22/23: IMPRESSION: 1. Consolidation and airways disease throughout the right lower lobe and in the posterior aspects of the remaining right lung. Left lower lung consolidation with a small left pleural effusion. Bilateral subsegmental airway mucus plugging. Findings are concerning for pneumonia or other pneumonitis such as aspiration. 2. Redemonstration of a sacral decubitus ulcer, which appears mildly smaller compared to the prior exam. No underlying osseous erosions to suggest acute osteomyelitis. 3. Mild asymmetric prominence of the left piriformis musculature, slightly improved compared to the prior exam. No obvious evidence of abscess, although evaluation is significantly limited due to lack of intravenous contrast. 4. Tracheostomy cannula, PEG tube, and Iverson catheter present as above. 5. Possible wall thickening at the rectum. Consider correlation with endoscopy after resolution of acute symptoms. Chemical Pathologist: PSCJonas Transcribe Date/Time: Nov 22 2023 1:14P Dictated by : IVAN RIVERA MD This examination was interpreted and the report reviewed and electronically signed by: IVAN RIVERA MD on Nov 22 2023 2:05PM EST DVT US BLE, BUE performed 11/22/23: preliminarily negative for acute DVT ICU Checklist Last Documented/Reviewed time: 11/21/2023 4:29 PM A= Assess, Prevent, Manage Pain Pain adequately controlled?: Yes C= Choice of Sedation and Analgesia RASS at Goal?: Yes B= Both Spontaneous Awakening and Breathing Trials Ventilator: None D= Delirium: Assess, Prevent and Manage ICU Delirium Status: CAM Negative - no action required Sleep adequate?: Yes Restraint Status: None E= Early Mobility/Excercise ICU Mobility: ICU Mobility-Pt Has Been Out of Bed: No - Specify F= Family Engagement and Empowerment ICU plan of care visit at bedside in last 24 hours: Patient/ Family updated ICU Disposition: ICU Disposition- Is Patient Clinically Ready to Transfer to RNF or SDU?: No Discharge Planning: SNF Prevention: Line Status: None Iverson Status: Present, will maintain Iverson Status Details: Urinary retention or obstruction Pressure Injury Status: Present on admission, specify GI/Stress Ulcer Prophylaxis: PPI Nutri (more content not included)... [facility] 11-22-2023 Note HNO ID: [id number] Author: ADOLFO CORMIER RPh Service: Pharmacy Author Type: Pharmacist Type: Plan of Care Filed: 11/22/2023 11:12 Note Text: PHARMACY MEDICATION REVIEW Patient Name: Lolis Quinones III : 1985 The following medications were updated within the CHILD MONITOR medication list: Medications ADDED to CHILD MONITOR medication list Dakin's solution Artificial tears Oxycodone Alprazolam Medications CHANGED on CHILD MONITOR medication list Route changed for apixaban Baclofen changed from 15 mg TID to 5 mg TID Metoprolol changed from 12.5 mg BID to 25 mg BID PRN indication added to eye ointment Medications REMOVED from CHILD MONITOR medication list Dextrose IV Dextrose gel KPhos Multivitamin Additional comments: Medications given at outside hospital:Vancomycin 1.25 g and pip-tazo 3.375 g given at outside ED prior to [facility] admission The below information represents the best possible medication history: Yes Medication history completed by: Pharmacist: Adolfo Cormier RPh Source of history: half-way/Other NOV - [facility] and Outside hospital records - Name:[facility] (spoke to their inpatient pharmacist 11/21) Medication nonadherence identified: Unable to assess; MAR not included with paperwork Reconciliation completed: Yes Completed by: Adolfo Cormier RPh All CHILD MONITOR medications addressed by LIP Patient interested in Bedside Delivery Services or using OP Pharmacy at discharge? No Preferred outpatient pharmacy: [facility] Allergies: Fentanyl Shortness of Breath Prior to Admission Medications Prescriptions Last Dose Informant Patient Reported? Taking? ALPRAZolam (XANAX) 1 mg tablet Unknown Yes Yes Si mg by G-TUBE route three times a day as needed for anxiety. acetaminophen (TYLENOL) 325 mg tablet Unknown No Yes Si tablets by ORAL/FEEDING TUBE route every 4 hours as needed for fever (specify temp.). albuterol (PROVENTIL) 2.5 mg /3 mL (0.083 %) nebulizer solution Unknown No Yes Sig: Use 3 mL via nebulizer every 4 hours as needed for wheezing/shortness of breath. albuterol (PROVENTIL) 2.5 mg /3 mL (0.083 %) nebulizer solution Unknown No Yes Sig: Use 3 mL via nebulizer two times a day. apixaban (ELIQUIS) 5 mg tab(s) Unknown No Yes Sig: Take 1 tablet by mouth two times a day. Patient taking differently: 5 mg by G-TUBE route two times a day. baclofen 5 mg tablet Unknown Yes Yes Si mg by G-TUBE route three times a day. carboxymethylcellulose sodium (ARTIFICIAL TEARS) 1 % drops Unknown Yes Yes Sig: Use 1 Drop in both eyes three times a day. cetirizine (ZYRTEC) 10 mg tablet Unknown No Yes Sig: Take 1 tablet by mouth once daily. Patient taking differently: 10 mg by G-TUBE route once daily. escitalopram oxalate (LEXAPRO) 10 mg tablet Unknown No Yes Si tablet by ORAL/FEEDING TUBE route once daily. gabapentin (NEURONTIN) 300 mg/6 mL (6 mL) oral solution Unknown No Yes Si mL by ORAL/FEEDING TUBE route three times a day for 30 days. glucagon 1 mg/mL injection Unknown No Yes Sig: Inject 1 mg subcutaneously as needed. Patient taking differently: Inject 1 mg subcutaneously as needed (hypoglycemia). melatonin 3 mg tablet Unknown No Yes Si tablet by ORAL/FEEDING TUBE route at bedtime as needed for insomnia. metoprolol tartrate, short acting, (LOPRESSOR) 25 mg tablet Unknown Yes Yes Si mg by G-TUBE route two times a day. Hold for SBP less than 100, hold for HR less than 60 oxyCODONE IR (ROXICODONE) 10 mg tab Unknown Yes Yes Si mg by G-TUBE route every 6 hours. polyethylene glycol 3350 17 gram packet Unknown No Yes Si Packet by ORAL/FEEDING TUBE route once daily. Dissolve dose in 4 - 8 ounces of liquid and take as directed. senna (SENOKOT) 8.6 mg tab Unknown No Yes Si tablet by ORAL/FEEDING TUBE route two times a day. sodium chloride 7% solution 7 % solution for nebulization Unknown No Yes Sig: Inhale 4 mL as instructed two times a day. sodium hypochlorite (DAKIN'S SOLUTION) 0.125 % soln Unknown Yes Yes Sig: Irrigate as instructed once daily. Apply to gauze; change daily as needed for wound care for sacrum white petrolatum-mineral oil (SOOTHE LUBRICANT EYE NIGHT TIME OINTMENT) ointment Unknown No Yes Sig: Use 1 Drop in both eyes as needed. Patient taking differently: Use 1 Drop in both eyes as needed (dry eye). zinc oxide (DESITIN) 13 % crea Unknown No Yes Sig: Apply to affected area as needed (incontinence). zinc oxide (DESITIN) 13 % crea Unknown No Yes Sig: Apply to affected area two times a day. Facility-Administered Medications: None Adolfo Cormier [facility] 11/22/2023 [facility] 11-22-2023 Note HNO ID: [id number] Author: EVARISTO FERNÁNDEZ RT(R) Service: ? Author Type: Technologist Type: Progress Notes Filed: 11/22/2023 10:19 Note Text: Radiology Service Progress Note PATIENT NAME: Lolis Quinones III DATE OF SERVICE: November 22, 2023 TIME: 10:19 AM PATIENT IDENTITY VERIFICATION COMPLETED USING TWO (2) IDENTIFIERS: Name and Date of confirmed by patient verbally and Name and Date of confirmed by identification band. FALL SCREENING: Has the patient had 2 falls in the last year or 1 fall with injury or currently using an Ambulatory Assistive Device (Walker, Cane, Wheelchair, Crutches, etc.)? Inpatient: Screened on floor PATIENT GENDER DATA: Male PATIENT RELEVANT IMPLANT DATA REVIEWED: Not Applicable PATIENT PRESENTS WITH AN IMPLANTABLE OR ATTACHED ANALYTICAL STATISTICIAN: No RADIOLOGY DEPARTMENT: CT; Exam(s) Completed: Chest Abdomen Pelvis PERIPHERAL IV DATA: Not applicable SIGNED BY: RT Flaquita(R) November 22, 2023 10:19 AM [facility] 11-22-2023 Note HNO ID: [id number] Author: ORIANA VAUGHAN RT(R) Service: ? Author Type: Technologist Type: Progress Notes Filed: 11/22/2023 06:29 Note Text: Radiology Service Progress Note PATIENT NAME: Lolis Quinones III DATE OF SERVICE: November 22, 2023 TIME: 6:29 AM PATIENT IDENTITY VERIFICATION COMPLETED USING TWO (2) IDENTIFIERS: Name and Date of confirmed by identification band. FALL SCREENING: Has the patient had 2 falls in the last year or 1 fall with injury or currently using an Ambulatory Assistive Device (Walker, Cane, Wheelchair, Crutches, etc.)? Inpatient: Screened on floor PATIENT GENDER DATA: Male PATIENT RELEVANT IMPLANT DATA REVIEWED: Not Applicable PATIENT PRESENTS WITH AN IMPLANTABLE OR ATTACHED ANALYTICAL STATISTICIAN: No RADIOLOGY DEPARTMENT: General X-ray: Exam(s) Completed: Chest X-Ray PERIPHERAL IV DATA: Not applicable SIGNED BY: RT Michael(Clark) November 22, 2023 6:29 AM [facility] 11-21-2023 Note HNO ID: [id number] Author: SHA DANGELO RT(R) Service: Radiology Author Type: Technologist Type: Progress Notes Filed: 11/21/2023 16:37 Note Text: Radiology Service Progress Note PATIENT NAME: Lolis Quinones III DATE OF SERVICE: November 21, 2023 TIME: 4:36 PM PATIENT IDENTITY VERIFICATION COMPLETED USING TWO (2) IDENTIFIERS: Name and Date of confirmed by identification band and Name and Date of obtained from a relative, guardian or prior caregiver.. FALL SCREENING: Has the patient had 2 falls in the last year or 1 fall with injury or currently using an Ambulatory Assistive Device (Walker, Cane, Wheelchair, Crutches, etc.)? Inpatient: Screened on floor PATIENT GENDER DATA: Male PATIENT RELEVANT IMPLANT DATA REVIEWED: Not Applicable PATIENT PRESENTS WITH AN IMPLANTABLE OR ATTACHED ANALYTICAL STATISTICIAN: No RADIOLOGY DEPARTMENT: General X-ray: Exam(s) Completed: Chest X-Ray PERIPHERAL IV DATA: Not applicable SIGNED BY: Sha Dangelo RT(R) November 21, 2023 4:36 PM [facility] 11-21-2023 Note [facility] 11-21-2023 History of Past i llness Narrative Problem Noted Date Diagnosed Date Resolved Date ITZEL (acute kidney injury) 11/21/2023 Last Assessment & Plan: BUN 26, CR 0.9 in ED Baseline: BUN 12, CR 0.46 Repeat in ICU: BUN 22. CR 0.59 Urinary retention due to misplaced catheter noted when iverson catheter exchanged for culture PLAN: -Improving with IVF -Continuous LR while NPO -Monitor BMP daily -Strict I/O -Avoid nephrotoxic agents Tachycardia 11/21/2023 11/26/2023 Last Assessment & Plan: Tachycardic in ED into 140s. Improved with IVF 110-120 in ICU PLAN: -Continue home dose metoprolol documented as of this encounter (statuses as of 12/03/2023) [facility]03-14-2024 History of Past illness Narrative* Problem Noted Date Diagnosed Date Resolved Date ITZEL (acute kidney injury) 11/21/2023 Last Assessment & Plan: BUN 26, CR 0.9 in ED Baseline: BUN 12, CR 0.46 Repeat in ICU: BUN 22. CR 0.59 Urinary retention due to misplaced catheter noted when iverson catheter exchanged for culture PLAN: -Improving with IVF -Continuous LR while NPO -Monitor BMP daily -Strict I/O -Avoid nephrotoxic agents Tachycardia 11/21/2023 11/26/2023 Last Assessment & Plan: Tachycardic in ED into 140s. Improved with IVF 110-120 in ICU PLAN: -Continue home dose metoprolol documented as of this encounter (statuses as of 12/20/2023) [facility]03-14-2024 History of Past illness Narrative* Problem Noted Date Diagnosed Date Resolved Date ITZEL (acute kidney injury) 11/21/2023 Last Assessment & Plan: BUN 26, CR 0.9 in ED Baseline: BUN 12, CR 0.46 Repeat in ICU: BUN 22. CR 0.59 Urinary retention due to misplaced catheter noted when iverson catheter exchanged for culture PLAN: -Improving with IVF -Continuous LR while NPO -Monitor BMP daily -Strict I/O -Avoid nephrotoxic agents Tachycardia 11/21/2023 11/26/2023 Last Assessment & Plan: Tachycardic in ED into 140s. Improved with IVF 110-120 in ICU PLAN: -Continue home dose metoprolol documented as of this encounter (statuses as of 12/26/2023) [facility]03-14-2024 History of Present illness Narrative* Yash Cornejo APRN.FUNERAL DRIVER - 11/21/2023 1:52 PM EDT Images from the original note were not included. CRITICAL CARE TRANSPORT MEDICAL CONTROL CONSULT NOTE Patient Name: Lolis Quinones III Service Date: November 21, 2023 Referring Facility: [facility] Accepting Facility: [facility] REASON FOR TRANSPORT: Aspiration Pneumonia REASON FOR CONSULT: Sustained tachycardia CCT MEDICAL CONTROL CONSULT SUMMARY: History, physical exam findings, and available background patient information from CCT Transport Nurse were reviewed at the time of consult. Pertinent additional information was reviewed as follows: CCT transport request log In brief, Lolis Quinones III is a 38 year old male with a history, known at time of consult, significant for ischemic stroke in LTAC, pressure ulcer, pneumonia, UTI [facility]. Presented tachycardic hypotensive requiring requiring volume resuscitation and covered with vanc/zosyn for HCAP. PLAN: Multiple factors considered including: patient history/condition/trajectory/stability, referring and receiving destinations, duration of transport time, medications and therapies available during calloway sport, patient safety, as well as crew capabilities. Orders given for: lopressor 5 mg Plan of care and orders confirmed and read back via telephone with CCT Transport film crew member, Paola RichardsRN SIGNATURE: Yash Cornejo APRN.CNP Acute Care Nurse Practitioner Critical Care Transport documented in this encounterA[facility] NoteHNO ID: [id number] Author: ?, ?, ? Service: ? Author Type: ? Type: Progress Notes Filed: 11/08/2023 14:05 Note Text: [place] copat stop date No [facility] History of Present illness Narrative* Iveth Kelly - 11/08/2023 2:05 PM EST [place] copat stop date No follow up needed documented in this encounterA[facility] NoteOhio[facility] Note[facility] Note[facility] Note [facility]02-08-2024 [facility] 10-16-2023 [facility]-04-2024 Note[facility]-2024 Note [facility]02-02-2024 [facility]-20[facility] Note[facility] 10-10-2023 [facility]23 Hospital Discharge instructions Patient Education 10/01/2022 08:20:01 Prostatitis Prostatitis Prostatitis is swelling or inflammation of the prostate gland. The prostate is a walnut-sized glandthat is involved in the production of semen. It is located below a man's bladder, in front of the rectum. There are four types of prostatitis: Chronic nonbacterial prostatitis. This is the most common type of prostatitis. It may be associatedwith a viral infection or autoimmune disorder. Acute bacterial prostatitis. This is the least common type of prostatitis. It starts quickly and isusually associated with a bladder infection, high fever, [...] infection from bacteria. Chronic nonbacterial prostatitis may becaused by: Urinary tract infections (UTIs). Nerve damage. A response by the body s disease-fighting system (autoimmune response). Chemicals in the urine. The causes of the other types of prostatitis are usually not known. What are the signs or symptoms? Symptoms of this condition vary depending upon the type of prostatitis. If you have acute bacterialprostatitis, you may experience: Urinary symptoms, such as: [...] with relaxing your pelvic floor muscles, which helpsto relieve pressure on the prostate. Follow these instructions at home: Take [id number] and prescription medicines only as told by [...] 08/23/2001 Document Revised: 11/08/2018 Document Reviewed: 05/16/2017 [employer] Patient Education 2020 [facility] [employer]. Follow Up Care 10/02/2021 11:05:28 With:ANNABELLE ANGUIANO, Cj Rodas, URL Address: [facility] [address], [place] [address]- When: Unknown [facility] 03-22-2022 Evaluation note* Encounter Date Diagnosis Assessment Notes Treatment Notes Treatment Clinical Notes Nov, Closed fracture of distal end of right radius with routine healing, unspecified fracture morphology, subsequent encounter (ICD-10 - S52.501D) Radiographs reviewed with patient as healed fracture. May progress activity at this time. Continue motion and strengthening. Call with questions/concern s. [employer] Other 03-01-2022 NotePROCEDURE: XR WRIST RT 2V [...] Electronically authenticated by: CLAIR CORTES Date: 2021-11-07 14:07[facility]03-01-2022 Evaluation note* Encounter Date Diagnosis Assessment Notes [...] may continue off work at this time. 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 [employer] Other 02-07-2022 NotePROCEDURE: XR WRIST RT MIN [...] Electronically authenticated by: CLAIR CORTES Date: 2021-10-16 [facility]:24[facility] Future Appointments Appointment Date:10/07/2023 10:15:00 AM Scheduled Provider:Cj ALANIS MD Location:[facility] Appointment Type:URO Office Visit [facility] evaluation note* Diagnosis Iron deficiency anemia due to chronic blood loss- Primary Iron deficiency anemia secondary to blood loss (chronic) documented in this encounter [facility] general Narrative - Reported* Type Description Date Medical History hypertension Surgical History Foot Surgery Surgical History tonsillectomy and adenoidectomy Hospitalization History See Above [employer] Other Hospital course Narrative No data available for this section [facility] [employer] progress note No data available for this section [facility] [employer] Summary Purpose Family History No Family History Records FoundNo Family History Records FoundNo Family History Records FoundNo Family History Records FoundNo Family History Records FoundNo Family History Records FoundNo Family History Records FoundNo Family History Records FoundNo Family History Records Found Advance Directives Latest Code Status on File Code Status Date Activated Date Inactivated Comments Full Code 10/09/2023 11:25 PM Question Answer Comments Full Code Order Discussed With: Patient Latest Code Status on File Code Status Date Activated Date Inactivated Comments Full Code 10/09/2023 11:25 PM 10/23/2023 7:56 PM Question Answer Comments Full Code Order Discussed With: Patient Date Activated Date Inactivated Comments 11/22/2023 8:46 PM 11/28/2023 4:13 PM Question Answer Comments Full Code Order Discussed With: Surrogate Decisi on Maker Surrogate Decision Maker Name: Marlon alvarado(Father and Mother) Date Activated Date Inactivated Comments 10/09/2023 11:25 PM 10/23/2023 7:56 PM Question Answer Comments Full Code Order Discussed With: Patient Date Activated Date Inactivated Comments 11/22/2023 8:46 PM 11/28/2023 4:13 PM Question Answer Comments Full Code Order Discussed With: Surrogate Decisi on Maker Surrogate Decision Maker Name: Marlon alvarado(Father and Mother) Date Activated Date Inactivated Comments 10/09/2023 11:25 PM 10/23/2023 7:56 PM Question Answer Comments Full Code Order Discussed With: Patient Health Concerns Infection Onset Date Last Indicated Resolved Time COVID-19 Rule-Out 11/21/2023 11/21/2023 11/21/2023 7:00 PM EDT Reason for Referral Specialty Diagnoses / Procedures Referred By Katie t Referred To Contact Jf Waldron MD [address] [place] [address] [place] [address] Referral ID Status Reason Start Date Expiration Date V isits Requested Visits Authorized [id number] Pending Review 1 1 Additional Source Comments (unrecognized sect ion and content) No Status Records FoundNo Status Records FoundNo Status Records FoundNo Status Records FoundNo Status Records FoundNo Status Records FoundNo Status Records FoundNo Status Records FoundNo Status Records Found INFORMATION SOURCE (unrecogn ized section and content) DATE CREATED AUTHOR 11/29/2021 [facility] DATE CREATED AUTHOR AUTHOR'S ORGANIZ ATION 12/27/2021 [facility] DATE CREATED AUTHOR AUTHOR'S ORGANIZ ATION 08/20/2022 [facility] DATE CREATED AUTHOR AUTHOR'S ORGANIZ ATION 11/05/2022 [facility] DATE CREATED AUTHOR AUTHOR'S ORGANIZ ATION 07/27/2023 [facility] DATE CREATED AUTHOR AUTHOR'S ORGANIZ ATION 10/13/2023 [facility] DATE CREATED AUTHOR AUTHOR'S ORGANIZ ATION 10/13/2023 [facility] DATE CREATED AUTHOR AUTHOR'S ORGANIZ ATION 12/01/2023 [facility] DATE CREATED AUTHOR AUTHOR'S ORGANIZ ATION 01/23/2024 [facility] REASON FOR VISIT (unrecogniz ed section and content) Reason Comments CoPat Start Reason Comments CoPat Agency Reason Comments CoPat Stop Reason Comments Critical Care Transport Reason Comments Consult Anemia Reason Comments Patient Question Reason Comments Results Patient Care team informatio n (unrecognized section and content) 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 Specialty Start Date End Date Sergei Root II, MD [address] [facility] [address] [place] [address] PCP - General Internal Medicine 12/27/23 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 Specialty Start Date End Date Sergei Root II, MD [address] [facility] [address] [place] [address] PCP - General Internal Medicine 12/27/23 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 Specialty Start Date End Date Sergei Root II, MD [address] [facility] [address] [place] [address] PCP - General Internal Medicine 12/27/23 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 Specialty Start Date End Date Sergei Root II, MD [address] [facility] [address] [place] [address] PCP - General Internal Medicine 12/27/23 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 Start Date End Date Sergei Root II, MD [address] [place] [address] PCP - General Internal Medicine 12/27/23 Source Comments (unrecognize d section and content) In the event this informatio n is protected by the Federal Confidentiality of Alcohol and Drug Abuse Patient Records regulations: The Federal rules restrict any use of the information to criminally investigate or prosecute any alcohol or drug abuse patient.[facility] the event this information is protected by the Federal Confidentiality of Alcohol and Drug Abuse Patient Records regulations: The Federal rules restrict any use of the information to criminally investigate or prosecute any alcohol or drug abuse patient.[facility] the event this information is protected by the Federal Confidentiality of Alcohol and Drug Abuse Patient Records regulations: The Federal rules restrict any use of the information to criminally investigate or prosecute any alcohol or drug abuse patient.[facility] the event this information is protected by the Federal Confidentiality of Alcohol and Drug Abuse Patient Records regulations: The Federal rules restrict any use of the information to criminally investigate or prosecute any alcohol or drug abuse patient.[facility] the event this information is protected by the Federal Confidentiality of Alcohol and Drug Abuse Patient Records regulations: The Federal rules restrict any use of the information to criminally investigate or prosecute any alcohol or drug abuse patient.[facility] the event this information is protected by the Federal Confidentiality of Alcohol and Drug Abuse Patient Records regulations: The Federal rules restrict any use of the information to criminally investigate or prosecute any alcohol or drug abuse patient.[facility] the event this information is protected by the Federal Confidentiality of Alcohol and Drug Abuse Patient Records regulations: The Federal rules restrict any use of the information to criminally investigate or prosecute any alcohol or drug abuse patient.[facility] the event this information is protected by the Federal Confidentiality of Alcohol and Drug Abuse Patient Records regulations: The Federal rules restrict any use of the information to criminally investigate or prosecute any alcohol or drug abuse patient.[facility] the event this information is protected by the Federal Confidentiality of Alcohol and Drug Abuse Patient Records regulations: The Federal rules restrict any use of the information to criminally investigate or prosecute any alcohol or drug abuse patient.[facility] the event this information is protected by the Federal Confidentiality of Alcohol and Drug Abuse Patient Records regulations: The Federal rules restrict any use of the information to criminally investigate or prosecute any alcohol or drug abuse patient.[facility] the event this information is protected by the Federal Confidentiality of Alcohol and Drug Abuse Patient Records regulations: The Federal rules restrict any use of the information to criminally investigate or prosecute any alcohol or drug abuse patient.[facility] Inactive Administered Medications - up to 3 most recent administrations Administered Medications (un recognized section and content) Medication Order MAR Action Action Date Dose Rate Site metoprolol 5 mg injection (LOPRESSOR) 5 mg, INTRAVENOUS, ONCE, 1 dose, On Kelly 11/21/23 at 1400, Administer IV push over 2-5 minutes. CCT Only: Given (No Charge) 11/21/2023 1:43 PM EDT 5 mg FOR RECORDS PERTAINING TO PATIENTS WHO ARE [...] BE BASED ON THE PRIMARY CLINICAL RECORDS. [employer] provides no warranty or guarantee of the accuracy or completeness of information in this document.
[2024-04-17 17:34] LABS: Basophils Absolute Auto 0.1 10^3/uL (0.0-0.1); Basophils Percent Auto 0.7 % (0.2-2.0); Eosinophils Absolute Auto 0.4 10^3/uL (0.0-0.7); Hematocrit 28.4 % (42.0-54.0); Immature Granulocytes Abs Auto 0.04 10^3/uL (0.00-0.03); Immature Granulocytes Pct Auto 0.3 % (0.0-0.5); Lymphocytes Absolute Auto 1.6 10^3/uL (1.2-3.8); Mean Corpuscular HGB Conc 28.2 g/dL (29.9-35.2); Mean Corpuscular Hemoglobin 25.2 pg (25.9-34.0); Mean Corpuscular Volume 89.6 fL (80.0-94.0); Mean Platelet Volume 12.5 fL (9.5-13.5); Monocytes Absolute Auto 0.8 10^3/uL (0.3-0.8); Monocytes Percent Auto 6.4 % (1.7-12.0); Neutrophils Absolute Auto 9.4 10^3/uL (1.4-6.5); Neutrophils Percent Auto 76.6 % (43.0-75.0); Platelet Count 226 10^3/uL (150-450); Red Cell Distribution Width 18.6 % (11.0-15.0); White Blood Count 12.3 10^3/uL (4.0-11.0)
[2024-04-17 17:39] LABS: Anion Gap 6.9; BUN Creatinine Ratio 28.8; Carbon Dioxide 37.7 mmol/L (21.0-32.0); Chloride 108 mmol/L (98-107); Estimated GFR (African America 39 (>=60); Estimated GFR (Non-African Ame 32 (>=60); Glucose 128 mg/dL (74-106); Potassium 4.6 mmol/L (3.5-5.1); Sodium 148 mmol/L (136-145)
[2024-04-17 18:28] LABS: Red Blood Count 3.17 10^6/uL (4.70-6.10)
== END 2024-04-17 17:12 | disposition home or self-care (01) ==
LOC: LAB 17:11
PROVIDERS: PCP Internal Medicine
DX: A41.9 Sepsis, unspecified organism (principal)
CPT/HCPCS: 36415; 80048; 85025

== ENCOUNTER 2025-06-23 14:51 | Outpatient (OUT) | payer MEDICAID, SELFPAY ==
--- NOTE | 2025-06-23 14:53 | CT_ITS ---
The [address] [address] Patient Name: LOLIS QUINONES MRN: [id number] date: 1985 Sex: M Assigned Patient Location: CT Current Patient Location: Accession/Order Number: [id number] Exam Date: 06/23/2025 15:00 Report Date: 06/24/2025 07:57 At the request of: MONY HERRERA NP Procedure: CT chest wo con CT CHEST WITHOUT CONTRAST CLINICAL DATA: Nonspecific abnormal finding lung field COMPARISON: Chest x-ray 03/24/2024 Spiral images were obtained through the chest without contrast. Images were reviewed using both narrow and wide window settings. This CT exam was performed using one or more following dose reduction techniques: Automated exposure control, adjustment of the mA and/or kV according to patient size, or use of iterative reconstruction technique. There is some artifact related to body habitus and patient's arms. A tracheostomy tube is again visualized. The heart is mildly prominent. There is no pericardial effusion. Minor coronary artery disease is seen. No aortic aneurysm is identified. There are multiple small scattered mediastinal lymph nodes. There are hilar granulomas on the left. Mild bilateral gynecomastia is seen. There is dextroscoliotic curvature. Prior lower cervical fusion is seen. There is a small layering pleural effusion on the left and a trace amount of pleural fluid at the costophrenic angle on the right. There is subtle groundglass density bilaterally. Patchy airspace opacity is seen at the left upper lobe and at both lower lobes where there are bronchograms. There are also nodular changes at the lingula and a left lower lobe calcified granuloma. No pneumothorax is seen. Limited cuts through the upper abdomen show no contributory findings. CT/CT chest wo con IMPRESSION: MILD CARDIOMEGALY. BILATERAL PLEURAL-PARENCHYMAL CHANGES, GREATER ON THE LEFT. CORRELATION AND FOLLOW-UP TO RESOLUTION ARE SUGGESTED. GRANULOMATOUS DISEASE. Impression dictated by: Kathie Salamanca M.D. 06/24/2025 7:57 AM Dictation Location: [place] [address] Electronically authenticated by: [id number] Date: 06/24/2025 07:57
--- OUTSIDE RECORDS SUMMARY | 2025-06-23 14:56 | XMS_ITS | CCD ---
Author Organization [facility] CliniSytn Care Team Providers Care Mental Telepathist Name Role Phone Christine Ochoa Attending Unavailable DANII BHATIA Primary Care Unavailable SELF, REFERRED Referring Unavailable DAT PERALTA Admitting Unavailable Olexa, Tayler Unavailable KRIS, DR DANII Alvarado Primary Care Unavailable RHONDA, DR FLORENCIO Rodas Admitting Unavailable RHONDA, DR FLORENCIO Rodas Attending Unavailable RHONDA, DR FLORENCIO Rodas Consulting Unavailable KRIS, DR DANII Alvarado Primary Care Unavailable BG, DR HUI David Admitting Unavailabl e BG, DR HUI David Attending Unavailabl e BG, DR HUI David Consulting Unavailabl e OLEXA, TAYLER Admitting Unavailable OLEXA, TAYLER Attending Unavailable KRIS, DR DANII Alvarado Primary Care Unavailable Yandel, DR Ochoa Consulting Unavailable JULIA, TAYLER Consulting Unavailable SAMSA, HAROLDO Admitting Unavailable SAM, HAROLDO Attending Unavailable KRIS, DR DANII Alvarado Primary Care Unavailable Yandel, DR Ochoa Consulting Unavailable ANGEL, HAROLDO Consulting Unavailable KRIS, DR DANII Alvarado Admitting Unavailable KRIS, DR DANII Alvarado Attending Unavailable KRIS, DR DANII Alvarado Primary Care Unavailable Yandel, DR Ochoa Consulting Unavailable KRIS, DR DANII Alvarado Consulting Unavailable KRIS, DR DANII Alvarado Admitting Unavailable KRIS, DR DANII Alvarado Attending Unavailable KRIS, DR DANII Alvarado Primary Care Unavailable Yandel, DR Ochoa Consulting Unavailable KRIS, DR DANII Alvarado Consulting Unavailable KRIS, DR DANII Alvarado Primary Care Unavailable JYOTSNA RODGERS Admitting Unavailable JYOTSNA RODGERS Attending Unavailable Yandel, DR Ochoa Consulting Unavailable JYOTSNA RODGERS Consulting Unavailable DANII MCNEIL Primary Care Physician Cj ALANIS Attending Unavailable Cj ALANIS Attending Unavailable Unavailable Primary Care Provider UnavailNIGEL Nayak Attending Unavailable SERGEI ALATORRE Consulting Unavailable NIMA SCHRADER Admitting Unavailable IVAN COOK Referring Unavailable CAL MORRIS Attending Unavailable TONIA TARANGO Referring Unavailable Dk CASTILLO MD, Daniel B Primary Care Provider SERGEI ROOT II Primary Care Unavailable VARUN FUNEZ Referring Unavailable SERGEI ROOT II Primary Care Unavailable JF WALDRON Attending Unavailable ADOLFO VALENTINE Referring Unavailable MASSIEL, MARCO ANTONIO Admitting Unavailable VARUN FUNEZ Attending Unavailable Danii Mcneil MD Unavailable Sergei Root MD Unavailable Sergei Root MD Primary Care Provider Sergei Root MD Primary Care Provider [phone] JACKIE SIMMONS Attending Unavailable CHRISTINA EVANS Attending Unavailable RADHA AVILES Attending Unavailable ERLINDA TEJADA Admitting Unavailable ERLINDA TEJADA Attending Unavailable DK SERGEI B Primary Care Unavailable RAJEEV SALAMANCA Referring Unavailable DK SERGEI B Primary Care Unavailable DK SEGREI B Referring Unavailable KD SERGEI B Primary Care Unavailable ERLINDA TEJADA Admitting Unavailable ERLINDA TEJADA Attending Unavailable DK SERGEI B Primary Care Unavailable ERLINDA TEJADA Admitting Unavailable ERLINDA TEJADA Attending Unavailable DK SERGEI B Primary Care Unavailable MARTY ARRIAGA Attending Unavailable RAJEEV SALAMANCA Referring Unavailable DK SERGEI B Primary Care Unavailable MARTY ARRIAGA Attending Unavailable MARTY ARRIAGA Referring Unavailable DK SERGEI B Primary Care Unavailable Allergies Allergy Classification Reported Allergen(s) Allergy Type Date of Onset Reaction(s) Facility Lincosamides (antibiotic) (1 source) Clindamycin Drug Allergy 03-01-20 17 Unknown [facility] Opioid Agonists (1 source) fentaNYL Drug Allergy 01-17-20 05 Shortness of Breath [facility] Work Phone: Quinolones (antibiotic) (1 source) Ciprofloxacin Drug Allergy 08-11-20 19 Unknown [facility] Serotonin Reuptake Inhibitors (SSRIs) (1 source) FLUoxetine Drug Allergy 07-03-20 23 Mental Status Change, Other: See Comments [facility] Sodium Chloride (1 source) Sodium Chloride Drug Allergy 01-02-20 24 Unknown [facility] (7 sources) fentaNYL; Translations: [fentaNYL] Drug Allergy 01-17-[address] [facility] Repository (1 source) alpha blockers; Translations: [alpha blockers] Propensity to adverse reactions (disorder) 01-31-[address] [facility] Repository (15 sources) Angiotensin Converting Enzyme (Jorge) Inhibitors; Translations: [Angiotensin-conver ting enzyme inhibitor agent (substance)] Propensity to adverse reactions 01-23-20 19 Eruption of skin (disorder), Rash, Unknown [facility] (20 sources) fentaNYL; Translations: [fentanyl] Drug Allergy 01-17-20 05 anaphylaxis, Moderate (severity modifier) (qualifier value), Shortness of Breath, Unknown [facility] (1 source) Ciprofloxacin Drug Allergy 08-11-20 [address] [facility] Repository (4 sources) Clindamycin; Translations: [CALCIUM CHANNEL BLOCKING AGENTS-DIHYDROPYRID ZA] Drug Allergy 03-01-20 [address] [facility] Repository (20 sources) FLUoxetine; Translations: [fluoxetine] Drug Allergy 07-03-20 Suicidal behavior (finding), Mental Status Change, Other: See Comments, Hallucinations , Unknown, Wheezing [facility] (1 source) Adrenergic Beta-Antagonists; Translations: [beta blockers] Propensity to adverse reactions (disorder) [facility] Repository (20 sources) Ciprofloxacin; Translations: [ciprofloxacin] Drug Allergy 08-11-20 19 Unknown [facility] Repository (10 sources) Sodium Chloride; Translations: [sodium chloride] Drug Allergy 01-02-20 24 Unknown [facility] Repository (10 sources) beta-Blocking agent; Translations: [BETA-BLOCKERS (BETA-ADRENERGIC BLOCKING AGTS)] Drug Allergy 01-02-20 24 Unknown [facility] (20 sources) Clindamycin; Translations: [CLINDAMYCIN] Drug Allergy 03-01-20 17 Unknown [facility] (16 sources) Calcium Channel Blocking Agents-Dihydropyrid za Drug Allergy 04-18-20 17 [facility] (11 sources) dilTIAZem Drug Allergy 11-11-19 25 Hives [facility] (11 sources) Other Allergy to substance 01-02-20 24 Unknown [facility] Work Phone: (7 sources) Sulfamethoxazole / Trimethoprim; Translations: [SULFAMETHOXAZOLE-T RIMETHOPRIM] Drug Allergy 03-15-20 25 [facility] Medications Current Medications Medication Drug Class(es) Dates Sig (Normalized) Sig (Original) acetaminophen 325 mg oral tablet (20 sources) Start: 10-23-2023 take 2 tablets enteral route every four hours as needed acetaminophen (TYLENOL) 325 mg tablet 2 tablets by ORAL/FEEDING TUBE route every 4 hours as needed for fever (specify temp.). 10/23/2023 Active Start: 07-30-2023 take 2 tablets enter al route every six hours as needed for fever acetaminophen (TYLENOL) 325 mg tablet Administer 2 tablets (650 mg total) per tube every 6 (six) hours as needed for fever. 07/30/2023 Active Start: 09-30-2019 Tylenol Oral, Refills(s) 0 Start Date: 09/30/19 Status: Ordered take 2 tablets by mo uth every four hours as needed for pain and pain and fever acetaminophen (Tylenol) 325 MG tablet 650 mg by Per G Tube route every 4 (four) hours if needed for mild pain, moderate pain or fever Active Comment on above: 2 tablets by ORAL/FE EDING TUBE route every 4 hours as needed for fever (specify temp.). albuterol 0.83 mg/ml inhalation solution (20 sources) beta2-Adrenergic Agonist Start: take 2.5 mg by inhalation in the morning albuterol (2.5 MG/3ML) 0.083% nebulizer solution Inhale 2.5 mg in the morning and 2.5 mg in the evening. 10/23/2023 Active Start: 10-23-2023 take 2.5 mg by inhal ation every four hours as needed albuterol (PROVENTIL) 2.5 mg /3 mL (0.083 %) nebulizer solution Use 3 mL via nebulizer every 4 hours as needed for wheezing/shortness of breath. 10/23/2023 Active Start: 10-23-2023 albuterol (PRO VENTIL) 2.5 mg /3 mL (0.083 %) nebulizer solution Use 3 mL via nebulizer two times a day. 10/23/2023 Active Start: 10-02-2021 albuterol Refi lls(s) 0 Start Date: 10/02/21 Status: Ordered take 2.5 mg by inhal ation every six hours as needed for wheezing albuterol (PROVENTIL,VENTOLIN) 2.5 mg /3 mL (0.083 %) nebulizer solution Inhale 3 mL (2.5 mg total) by nebulization every 6 (six) hours as needed for wheezing. Active Comment on above: Use 3 mL via nebuliz er every 4 hours as needed for wheezing/shortness of breath. Use 3 mL via nebuliz er two times a day. 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 08/23/2023 Active ipratropium-albu terol (Duo-Neb) 0.5-2.5 mg/3 mL nebulizer solution Take 3 mL by nebulization 3 (three) times a day as needed for wheezing or shortness of breath Active ALPRAZolam 1 mg oral tablet (20 sources) Benzodiazepine Start: 10-23-2023 End: 10-30-2023 take 1 tablet enteral route every eight hours as needed ALPRAZolam (XANAX) 1 mg tablet 1 tablet by ORAL/FEEDING TUBE route three times a day as needed for up to 7 days. 0 10/23/2023 10/30/2023 Active ALPRAZolam (Preethi vam) 1 MG disintegrating tablet Take 1 mg by mouth as needed at bedtime for anxiety Active Comment on above: 1 tablet by ORAL/FEE DING TUBE route three times a day as needed for up to 7 days. 1 mg by G-TUBE route three times a day as needed for anxiety. apixaban 5 mg oral tablet (20 sources) Factor Xa Inhibitor Start: 11-28-2023 apixaban (ELIQUIS) 5 mg tab(s) 1 tablet by G-TUBE route two times a day. 11/28/2023 Active Start: 07-03-2023 End: 11-28-2023 take 1 tablet by mouth in the morning, then take 1 tablet by mouth at bedtime apixaban (ELIQUIS) 5 mg tablet Take 1 tablet (5 mg total) by mouth in the morning and 1 tablet (5 mg total) before bedtime. 60 tablet 3 07/03/2023 Active apixaban (Eliqui s) 5 MG tablet 5 mg by Per G Tube route in the morning and 5 mg before bedtime. Active Comment on above: Take 1 tablet by stacy th two times a day. 1 tablet by G-TUBE r oute two times a day. bacitracin 0.5 unt/mg ophthalmic ointment (6 sources) bacitracin ophth almic ointment Indications: blepharoconjunctivitis Administer 1 Application to both eyes once daily at bedtime Indications: blepharoconjunctivitis, an inflammatory disorder of the eyes. Active busPIRone hydrochloride 10 mg oral tablet (20 sources) busPIRone (BUSPA R) 10 mg tablet Indications: generalized anxiety disorder Administer 1 tablet (10 mg total) per tube every 8 (eight) hours Indications: repeated episodes of anxiety. Active busPIRone (Buspa r) 10 MG tablet 10 mg by Per G Tube route in the morning and 10 mg in the evening and 10 mg before bedtime. Active carboxymethylcellulose sodiu m 10 mg/ml ophthalmic solution (20 sources) carboxymethylcel lulose 1 % ophthalmic solution Administer 1 drop into affected eye(s) in the morning and 1 drop at noon and 1 drop in the evening and 1 drop before bedtime. Active carboxymethylcel lulose sodium (ARTIFICIAL TEARS) 1 % drops Use 1 Drop in both eyes three times a day. Active Comment on above: Use 1 Drop in both e yes three times a day. cetirizine hydrochloride 10 mg oral tablet (20 sources) Histamine-1 Receptor Antagonist Start: 11-28-2023 cetirizine (ZYRTEC) 10 mg tablet 1 tablet by G-TUBE route once daily. 11/28/2023 Active Start: 10-23-2023 End: 11-28-2023 take 1 tablet by mouth once daily cetirizine (ZYRTEC) 10 mg tablet Take 1 tablet by mouth once daily. 0 10/23/2023 11/28/2023 Discontinued cetirizine (ZyrT EC) 10 MG chewable tablet 10 mg by Per G Tube route Daily Active End: 05-07-2025 cetirizine (ZyrTEC) 10 MG ch ewable tablet Administer 1 tablet (10 mg total) per tube in the morning. 05/07/2025 Discontinued Comment on above: Take 1 tablet by stacy th once daily. 1 tablet by G-TUBE r oute once daily. chlorhexidine gluconate 1.2 mg/ml mouthwash (18 sources) Start: 08-23-20 take 15 mL by mouth in the morning chlorhexidine (PERIDEX) 0.12 % solution Apply 15 mL to the mouth or throat in the morning and 15 mL before bedtime. 08/23/2023 Active cholecalciferol 0.025 mg oral tablet (20 sources) Vitamin D cholecalciferol 1,000 units tablet Administer 1 tablet (1,000 Units total) per tube in the morning. Active Cholecalciferol 25 MCG (1000 UT) chewable tablet 25 mcg by Per G Tube route Daily Active ciprofloxacin 250 mg oral tablet (17 sources) Quinolone Antimicrobial ciproflo xacin HCl (CIPRO) 250 mg tablet Administer 1 tablet (250 mg total) per tube in the morning and 1 tablet (250 mg total) before bedtime. osteomyelitis. Active ciprofloxacin (C ipro) 250 MG tablet 250 mg by Per G Tube route in the morning and 250 mg before bedtime. For osteomyelitis. Active docusate sodium 50 mg / sennosides, long-term 8.6 mg oral tablet (7 sources) Start: 07-29-2023 sennosides-docusate sodium (SENOKOT-S) 8.6-50 mg Administer 2 tablets per tube in the morning and 2 tablets before bedtime. 07/29/2023 Active escitalopram 10 mg oral tablet (20 sources) Serotonin Reuptake Inhibitor Start: 10-23-2023 take 1 tablet by mouth once daily escitalopram oxalate (LEXAPRO) 10 mg tablet 1 tablet by ORAL/FEEDING TUBE route once daily. 10/23/2023 Active Start: 07-04-2023 End: 05-07-2025 take 1 tablet by mouth in the morning escitalopram (LEXAPRO) 10 mg tablet Take 1 tablet (10 mg total) by mouth in the morning. 30 tablet 3 07/04/2023 05/07/2025 Discontinued escitalopram (Le xapro) 10 MG tablet 10 mg by Per G Tube route Daily Active Comment on above: 1 tablet by ORAL/FEE DING TUBE route once daily. esomeprazole 40 mg delayed release oral capsule (17 sources) Proton Pump Inhibitor take 1 capsule by mouth once daily before breakfast esomeprazole (NexIUM) 40 mg capsule Indications: gastroesophageal reflux disease Take 1 capsule (40 mg total) by mouth every morning before breakfast Indications: gastroesophageal reflux disease. Active esomeprazole (Ne xIUM) 40 MG packet 40 mg in the morning. Take before meals. Active ferrous sulfate 325 mg oral tablet (20 sources) Start: 01-21-2024 End: 01-15-2025 ferrous sulfate (IRON) 325 m g (65 mg iron) tablet 1 tablet once daily. Please provide appropriate medication for peg tube 90 tablet 3 01/21/2024 01/15/2025 Active take 1 tablet by stacy th in the morning, then take 1 tablet by mouth at mealtime ferrous sulfate 325 (65 FE) mg EC tablet Take 1 tablet (325 mg total) by mouth in the morning and 1 tablet (325 mg total) in the evening. Take with meals. G-tube. Active ferrous sulfate 325 (65 Fe) MG tablet 325 mg by Per G Tube route in the morning and 325 mg before bedtime. Active fexofenadine hydrochloride 180 mg oral tablet (3 sources) Histamine-1 Receptor Antagonist take 1 tablet by mouth in the morning fexofenadine (MAKSIM) 180 mg tablet Take 1 tablet (180 mg total) by mouth in the morning. Active folic acid 1 mg oral tablet (20 sources) Start: 01-21-20 24 End: 01-21-20 folic acid 1 mg tablet 1 tablet once daily. Please provide appropriate medication for peg tube 90 tablet 3 01/21/2024 01/20/2025 Active take 1 tablet by mouth in the mo rning folic acid (FOLVITE) 1 mg tablet Take 1 tablet (1 mg total) by mouth in the morning. Active folic acid (Folv ite) 1 MG tablet 1 mg by Per G Tube route Daily Active furosemide 40 mg oral tablet (18 sources) Loop Diuretic End: 05-07-2025 furosemide (LASIX) 40 mg tablet Administer 1 tablet (40 mg total) per tube daily. Active furosemide (Lasi x) 40 MG tablet 40 mg by Per G Tube route Daily Active gabapentin 100 mg oral capsule (20 sources) Anti-epileptic Agent Start: 03-09-2025 gabapenti n (NEURONTIN) 100 mg capsule Administer 1 capsule (100 mg total) per tube 3 (three) times a day. 03/09/2025 Active Start: 11-13-2024 gabapentin (NE URONTIN) 400 mg capsule Administer 1 capsule (400 mg total) per tube 3 (three) times a day. 11/13/2024 Active Start: 11-13-2024 End: 03-13-2025 gabapentin (Neurontin) 400 M G capsule Indications: Nystagmus 1 capsule (400 mg) by Per G Tube route in the morning and 1 capsule (400 mg) in the evening and 1 capsule (400 mg) before bedtime. 90 capsule 3 11/13/2024 Active Start: 10-23-2023 End: 11-22-2023 take 6 mL by mouth three times daily gabapentin (NEURONTIN) 300 mg/6 mL (6 mL) oral solution 6 mL by ORAL/FEEDING TUBE route three times a day for 30 days. 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 90 mL 3 07/03/2023 05/07/2025 Discontinued gabapentin (Neur ontin) 300 MG capsule 300 mg by Per G Tube route in the morning and 300 mg in the evening and 300 mg before bedtime. Active Comment on above: 6 mL by ORAL/FEEDING TUBE route three times a day for 30 days. glucagon (rdna) 1 mg injection (14 sources) Antihypoglycemic Agent Start: glucagon 1 mg/mL injection Inject 1 mg subcutaneously as needed. 10/23/2023 Active Comment on above: Inject 1 mg subcutan eously as needed. guaiFENesin 20 mg/ml oral solution (5 sources) take 10 mL by mouth in the morning guaiFENesin (ROBITUSSIN) 100 mg/5 mL syrup Take 10 mL (200 mg total) by mouth in the morning. Active End: 01-12-2025 guaiFENesin (ROBITUSSIN) 100 mg/5 mL syrup Administer 15 mL (300 mg total) per tube 3 (three) times a day. 01/12/2025 Discontinued (Therapy completed) Vistaril (20 sources) Antihistamine Start: 10-03-2020 Vistaril Oral, QID, Refills(s) 0 Start Date: 10/03/20 Status: Ordered take 1 capsule by mo uth three times daily as needed for anxiety hydrOXYzine (VISTARIL) 50 mg capsule Pio e 1 capsule (50 mg total) by mouth 3 (three) times a day as needed for anxiety. Active take 1 capsule by mo uth every eight hours as needed for anxiety hydrOXYzine pamoate (Vistaril) 50 MG capsule 50 mg by Per G Tube route every 8 (eight) hours if needed for anxiety Do not give with Ativan Active take 1 capsule by mo uth every eight hours Vistaril 25 MG 1 capsule as needed Orall y every 8 hrs Active ibuprofen 200 mg [...] in the MR contrast administration guidelines link. lamoTRIgine 25 mg oral tablet (17 sources) Mood Stabilizer, Anti-epileptic Agent take 2 tablets by mouth at bedtime lamoTRIgine (LaMICtal) 25 mg tablet Take 2 tablets (50 mg total) by mouth before bedtime. Active lamoTRIgine (Martinez ICtal) 25 MG tablet 50 mg by Per G Tube route at bedtime Active lansoprazole 30 mg disintegrating oral tablet (1 source) Proton Pump Inhibitor lansoprazo le (PREVACID SOLUTAB) 30 mg disintegrating tablet Administer 1 tablet (30 mg total) per tube in the morning. 0 Active lidocaine hydrochloride 20 mg/ml mucous membrane topical solution (6 sources) Antiarrhythmic, Amide Local Anesthetic lidocaine viscous (lidocaine) 2 % solution 6 mL 3 (three) times a day as needed (for tooth pain). Active LORazepam 1 mg oral tablet (20 sources) Benzodiazepine Start: End: 025 take 1 tablet by mouth every eight hours as needed for anxiety and anxiety and anxiety LORazepam (Ativan) 0.5 MG tablet Indications: Anxiety Take 1 tablet (0.5 mg) by mouth every 8 (eight) hours if needed for anxiety for up to 14 days 42 tablet 05/15/2025 Active Start: 04-14-2025 End: 05-17-2025 take 1 tablet by mouth three times daily as needed for anxiety LORazepam (Ativan) 0.5 MG tablet Indications: Anxiety Take 1 tablet (0.5 mg) by mouth 3 (three) times a day as needed for anxiety for up to 14 days 42 tablet 05/03/2025 Active Start: 06-25-2024 End: 09-30-2025 take 1 tablet by mouth in the morning, then take 1 tablet by mouth in the evening, then take 1 tablet by mouth at bedtime LORazepam (Ativan) 1 MG tablet Indications: Chronic pain syndrome Take 1 tablet (1 mg) by mouth in the morning and 1 tablet (1 mg) in the evening and 1 tablet (1 mg) before bedtime. 90 tablet 3 06/02/2025 09/30/2025 Active take 1 tablet entera l route every eight hours as needed for anxiety LORazepam (ATIVAN) 1 mg tablet Administer 1 tablet (1 mg total) per tube every 8 (eight) hours as needed for anxiety. Active magnesium hydroxide 80 mg/ml oral suspension (1 source) magnesium hydrox georgina 400 mg/5 mL suspension Administer 30 mL per tube 3 (three) times a week. 0 Active melatonin 3 mg oral tablet (20 sources) Start: 10-23-2023 take 1 tablet enteral route every twenty-four hours as needed melatonin 3 mg tablet 1 tablet by ORAL/FEEDING TUBE route at bedtime as needed for insomnia. 10/23/2023 Active melatonin (CIRCA DIN) tablet Administer 5 tablets (5 mg total) per tube nightly. Active melatonin 5 MG t ablet 5 mg by Per G Tube route at bedtime Active melatonin (CIRCA DIN) tablet Administer 3 tablets (3 mg total) per tube nightly. 0 Active Comment on above: 1 tablet by ORAL/FEE DING TUBE route at bedtime as needed for insomnia. methenamine hippurate 1000 mg oral tablet (18 sources) methenamine (HIP SHO) 1 gram tablet Administer 1 tablet (1 g total) per tube in the morning and 1 tablet (1 g total) before bedtime. Active methenamine eliseo urate (Hiprex) 1 g tablet 1 g by Per G Tube route in the morning and 1 g before bedtime. For UTI prevention. Active End: 05-07-2025 take 1 tablet by mouth at mealtime methenamine (HIPREX) 1 gram tablet Take 1 tablet (1 g total) by mouth in the morning and 1 tablet (1 g total) in the evening. Take with meals. 05/07/2025 Discontinued metoclopramide 5 mg oral tablet (17 sources) Dopamine-2 Receptor Antagonist metoclopramide (REGL AN) 5 mg tablet Administer 1 tablet (5 mg total) per tube in the morning and at bedtime. Active metoclopramide ( Reglan) 5 MG tablet 5 mg by Per G Tube route in the morning and 5 mg before bedtime. Active take 1 tablet by mouth at bedtim e metoclopramide (REGLAN) 5 mg tablet Take 1 tablet (5 mg total) by mouth in the morning and at bedtime. Active metOLazone 5 mg oral tablet (6 sources) Thiazide-like Diuretic metOLazon e (ZAROXOLYN) 5 mg tablet Administer 0.5 tablets (2.5 mg total) per tube 2 (two) times a day. Saturday, Saturday, Saturday 30 mins before lasix Active metOLazone (ZARO XOLYN) 5 mg tablet Take 1 tablet (5 mg total) by mouth. Saturday, Saturday, Saturday 30 mins before lasix Active mineral oil 0.2 mg/mg / petrolatum 0.8 mg/mg ophthalmic ointment (14 sources) Start: 10-23-2023 End: 11-28-2023 white petrolatum-mineral oil (SOOTHE LUBRICANT EYE NIGHT TIME OINTMENT) ointment Use 1 Drop in both eyes as needed (dry eye). 11/28/2023 Active Comment on above: Use 1 Drop in both e yes as needed. Use 1 Drop in both e yes as needed (dry eye). Multi Vitamin+ (1 source) Start: 09-30-2019 Multi Vitamin+ Refill(s) 0 Start Date: 09/30/19 Status: Ordered [id number] alcium &mins (THERAGRAN-M) 9 mg iron-400 mcg tablet (1 source) Start: 07-30-2023 [id number]-[id number]-calciu m &mins (THERAGRAN-M) 9 mg iron-400 mcg tablet Administer 1 tablet per tube in the morning. 0 07/30/2023 Active Multivitamin preparation (3 sources) Multivitamin BID PRN Active omega 9-wqb-blu-fish oil (Fish OiL) 300-1,000 mg capsule (1 source) omega 3-dha-epa- fish oil (Fish OiL) 300-1,000 mg capsule Administer 1 capsule per tube in the morning. 0 Active ondansetron 4 mg oral tablet (3 sources) Serotonin-3 Receptor Antagonist take 1 tablet by mouth every six hours as needed for nausea and vomiting ondansetron (ZOFRAN) 4 mg tablet Take 1 tablet (4 mg total) by mouth every 6 (six) hours as needed for nausea or vomiting. Active 24 hr oxybutynin chloride 5 mg extended release oral tablet (6 sources) Cholinergic Muscarinic Antagonist take 1 tablet by mouth every twenty-four hours in the morning oxybutynin XL (DITROPAN-XL) 5 mg 24 hr tablet Take 2.5 mg by mouth in the morning. Active oxyCODONE hydrochloride 10 mg oral tablet (20 sources) Opioid Agonist Start: 06-02-2025 End: 07-02-2025 take 1 tablet by mouth every eight hours oxyCODONE (Roxicodone) 10 MG immediate release tablet Indications: Chronic pain syndrome Take 1 tablet (10 mg) by mouth every 8 (eight) hours 90 tablet 06/02/2025 07/02/2025 Active Start: 04-14-2025 End: 05-14-2025 take 1 tablet enteral route every eight hours as needed oxyCODONE (ROXICODONE) 5 mg immediate release tablet Administer 1 tablet (5 mg total) per tube every 8 (eight) hours as needed. 04/14/2025 05/14/2025 Active Start: 04-14-2025 End: 05-14-2025 take 1 tablet by mouth every eight hours for pain oxyCODONE (Roxicodone) 5 MG immediate release tablet Indications: Chronic pain syndrome Take 1 tablet (5 mg) by mouth every 8 (eight) hours if needed for severe pain 90 tablet 04/14/2025 05/14/2025 Active Start: 02-23-2025 End: 04-17-2025 take 1 tablet by mouth in the morning, then take 1 tablet by mouth in the evening, then take 1 tablet by mouth at bedtime oxyCODONE (Roxicodone) 10 MG immediate release tablet Indications: Chronic pain syndrome Take 1 tablet (10 mg) by mouth in the morning and 1 tablet (10 mg) in the evening and 1 tablet (10 mg) before bedtime. 90 tablet 03/18/2025 04/17/2025 Active Start: 10-27-2024 End: 02-20-2025 take 1 tablet by mouth in the morning, then take 1 tablet by mouth in the evening, then take 1 tablet by mouth at bedtime oxyCODONE (Roxicodone) 10 MG immediate release tablet Indications: Chronic pain syndrome Take 1 tablet (10 mg) by mouth in the morning and 1 tablet (10 mg) in the evening and 1 tablet (10 mg) before bedtime. 90 tablet 01/21/2025 02/20/2025 Active Start: 09-18-2024 End: 10-18-2024 oxyCODONE (Roxicodone) 10 MG immediate release tablet Indications: Chronic pain syndrome 1 tablet (10 mg) by Per G Tube route every 8 (eight) hours 90 tablet 09/18/2024 10/18/2024 Active Start: 07-28-2024 End: 09-18-2024 take 1 tablet by mouth every six hours oxyCODONE (Roxicodone) 10 MG immediate release tablet Indications: Chronic pain syndrome Take 1 tablet (10 mg) by mouth every 6 (six) hours 120 tablet 08/23/2024 09/18/2024 Discontinued Start: 06-25-2024 End: 07-25-2024 take 1 tablet by mouth every six hours for pain and pain oxyCODONE (Roxicodone) 10 MG immediate release tablet Indications: Pain Take 1 tablet (10 mg) by mouth every 6 (six) hours 120 tablet 06/25/2024 07/25/2024 Active Start: 04-20-2024 End: 06-19-2024 take 1 tablet by mouth every six hours for pain and pain oxyCODONE (Roxicodone) 10 MG immediate release tablet Indications: Pain Take 1 tablet (10 mg) by mouth every 6 (six) hours 120 tablet 05/20/2024 06/19/2024 Active Start: 10-23-2023 End: 10-26-2023 take 1 tablet by mouth every six hours oxyCODONE IR (ROXICODONE) 10 mg tab 1 tablet by ORAL/FEEDING TUBE route every 6 hours for 3 days. 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 Max Daily Amount: 30 mg 6 mL 08/23/2023 05/07/2025 Discontinued Comment on above: 1 tablet by ORAL/FEE DING TUBE route every 6 hours for 3 days. 10 mg by G-TUBE rout e every 6 hours. polyethylene glycol 3350 29465 mg powder for oral solution (20 sources) Osmotic Laxative Start: 10-23-2023 polyethylene glycol 3350 17 gram packet 1 Packet by ORAL/FEEDING TUBE route once daily. Dissolve dose in 4 - 8 ounces of liquid and take as directed. 10/23/2023 Active Start: 07-30-2023 polyethylene g lycol (GLYCOLAX) 17 gram packet Administer 17 g per tube in the morning. 07/30/2023 Active polyethylene gly col, PEG, 3350 (Miralax) 17 g packet 17 g Daily Active Comment on above: 1 Packet by ORAL/FEE DING TUBE route once daily. Dissolve dose in 4 - 8 ounces of liquid and take as directed. potassium chloride 1.33 meq/ml oral solution (20 sources) potassium chlori de (KAYCIEL) 20 mEq/15 mL solution Administer 30 mL (40 mEq total) per tube in the morning. Active Potassium Chlori de 20 MEQ/15ML (10%) solution 20 mEq by Per G Tube route Daily Active take 20 mEq by mouth in the morn ing potassium chloride (Klor-Con) 20 MEQ packet Take 20 mEq by mouth in the morning and 20 mEq before bedtime. Active potassium chlori de (KAYCIEL) 20 mEq/15 mL solution Take 15 mL (20 mEq total) by mouth in the morning. Active 72 hr scopolamine 0.0139 mg/hr transdermal system (17 sources) Anticholinergic apply 1 dose transdermal route once daily scopolamine (TRANSDERM-SCOP) 1 mg/[address] 1 patch on the skin every third day. Active scopolamine (Tra nsderm-Scop) 1 mg/72 hr patch [address] 1 patch on the skin every 3rd (third) day For secretions Active sennosides, long-term 8.6 mg oral tablet (20 sources) Start: 10-23-2023 take 1 tablet by mouth twice daily senna (SENOKOT) 8.6 mg tab 1 tablet by ORAL/FEEDING TUBE route two times a day. 10/23/2023 Active sennosides (Seno jigar) 8.6 MG tablet 1 tablet by Per G Tube route in the morning and 1 tablet before bedtime. Active Comment on above: 1 tablet by ORAL/FEE DING TUBE route two times a day. sodium chloride 70 mg/ml inhalation solution (20 sources) Start: 10-23-19 take 4 mL by inhalation twice daily sodium chloride 7% solution 7 % solution for nebulization Inhale 4 mL as instructed two times a day. 10/23/2023 Active sodium chloride (OCEAN) 0.65 % nasal spray Administer 1 spray into each nostril in the morning and 1 spray at noon and 1 spray before bedtime. Active sodium chloride 3 % nebulizer solution Take 4 mL by nebulization every 6 (six) hours if needed (secretions) Active sodium chloride (OCEAN) 0.65 % nasal spray Administer 1 spray into each nostril 3 (three) times a day. 0 Active Comment on above: Inhale 4 mL as instr ucted two times a day. sucralfate 1000 mg oral tablet (20 sources) Aluminum Complex sucralfate (CAR AFATE) 1 gram tablet Administer 1 tablet (1 g total) per tube 3 (three) times a day. Active sucralfate (Gloria fate) 1 g tablet 1 g by Per G Tube route in the morning and 1 g in the evening and 1 g before bedtime. Active End: 05-07-2025 take 10 mL by mouth three times daily sucralfate (CARAFATE) 100 mg/mL suspension Take 10 mL (1,000 mg total) by mouth 3 (three) times a day. 05/07/2025 Discontinued zinc oxide 130 mg/ml topical cream (20 sources) Start: 10-23-2023 zinc oxide (DE SITIN) 13 % crea Apply to affected area as needed (incontinence). 10/23/2023 Active Comment on above: Apply to [...] hrs Not-Taking baclofen 5 mg oral tablet (20 sources) gamma-Aminobutyr ic Acid-ergic Agonist Start: 10-23-2023 End: 11-22-2023 take 3 tablets by mouth three times daily baclofen 5 mg tablet 3 tablets by ORAL/FEEDING TUBE route three times a day. 0 10/23/2023 11/22/2023 Discontinued (Dosage adjustment) baclofen (LIORES AL) 10 mg tablet Administer 1 tablet (10 mg total) per tube in the morning and 1 tablet (10 mg total) at noon and 1 tablet (10 mg total) before bedtime. Active baclofen (Liores al) 10 MG tablet 10 mg by Per G Tube route in the morning and 10 mg in the evening and 10 mg before bedtime. Active baclofen 5 mg ta blet 5 mg by G-TUBE route three times a day. Active take 5 mg by mouth i n the morning, then take 5 mg by mouth in the evening, then take 5 mg by mouth at bedtime baclofen (Lioresal) 10 MG tablet Take 5 mg by mouth in the morning and 5 mg in the evening and 5 mg before bedtime. Active baclofen (LIORES AL) 10 mg tablet Administer 1.5 tablets (15 mg total) per tube 3 (three) times a day. 0 Active Comment on above: 3 tablets by ORAL/FE EDING TUBE route three times a day. 5 mg by G-TUBE route three times a day. dexamethasone 1 mg/ml / neomycin 3.5 mg/ml / polymyxin b 88633 unt/ml ophthalmic suspension (4 sources) Aminoglycoside Antibacterial, Polymyxin-class Antibacterial, Corticosteroid End: 05-07 apply 1 drop(s) into the eye(s) at bedtime zoxxlriw-odxuoslxg-ajlMFWOQ asone (MAXITROL) 3.5mg/mL-10,000 unit/mL-0.1 % ophthalmic suspension Indications: blepharoconjunctivitis Administer 1 drop to both eyes before bedtime. Indications: blepharoconjunctivitis, an inflammatory disorder of the eyes. ointment. 05/07/2025 Discontinued dextromethorphan hydrobromide 2 mg/ml / guaiFENesin 20 mg/ml oral solution (4 sources) Uncompetitive Z-gdrnnf-G-aspartat e Receptor Antagonist, Sigma-1 Agonist End: 05-07 take 10 mL by mouth once daily in the morning dextromethorphan-guaiFENesi n (ROBITUSSIN-DM) 10-100 mg/5 mL liquid Take 10 mL by mouth every morning. 05/07/2025 Discontinued fluticasone propionate 0.05 mg/actuat metered dose nasal spray (5 sources) Corticosteroid Start : 07-04 End: 05-07 take 2 spray(s) nasal route in the morning fluticasone propionate (FLONASE) 50 mcg/actuation nasal spray Administer 2 sprays into each nostril in the morning. 18.2 mL 3 07/04/2023 05/07/2025 Discontinued 1000 ml glucose 100 mg/ml injection (6 sources) Start : 10-23 End: 11-21 dextrose (TRUEPLUS) 15 gram/32 mL oral gel Take 32 mL by mouth as needed. 0 10/23/2023 11/22/2023 Discontinued Start: 10-23-2023 End: 11-22-2023 dextrose 10% Inject 125-250 mL intravenously as needed (low blood sugar). 0 10/23/2023 11/22/2023 Discontinued Comment on above: Inject 125-250 mL in travenously as needed (low blood sugar). Take 32 mL by mouth as needed. sodium hypochlorite 1.25 mg/ml topical solution (13 sources) Start: 08-23-2023 End: 01-12-2025 sodium hypochlorite (DAKIN'S 1/4 STRENGTH) 0.125 % solution external solution Apply 1 Application topically in the morning. 08/23/2023 01/12/2025 Discontinued (Therapy completed) sodium hypochlor ite (DAKIN'S SOLUTION) 0.125 % soln Irrigate as instructed once daily. Apply to gauze; change daily as needed for wound care for sacrum Active Comment on above: Irrigate as instruct ed once daily. Apply to gauze; change daily as needed for wound care for sacrum hypromellose 5 mg/ml ophthalmic solution (5 sources) Start: End: artificial tears,hypromellose, (ISOPTO TEARS) 0.5 % ophthalmic solution Administer 1 drop to both eyes 4 (four) times a day as needed (dry eye). 15 mL 3 07/03/2023 05/07/2025 Discontinued metoprolol tartrate 25 mg oral tablet (20 sources) beta-Adrenergic Andrew Start: 4 End: take 0.5 tablet by mouth every twelve hours metoprolol tartrate, short acting, (LOPRESSOR) 25 mg tablet 0.5 tablets by ORAL/FEEDING TUBE route every 12 hours. 0 10/23/2023 11/22/2023 Discontinued (Dosage adjustment) Start: 07-03-2023 take 1 tablet by stacy th in the morning, then take 1 tablet by mouth at bedtime metoprolol tartrate (LOPRESSOR) 50 mg tablet Take 1 tablet (50 mg total) by mouth in the morning and 1 tablet (50 mg total) before bedtime. 60 tablet 3 07/03/2023 Active metoprolol tartr ate (Lopressor) 25 MG tablet 25 mg by Per G Tube route in the morning and 25 mg before bedtime. Active metoprolol tartr ate, short acting, (LOPRESSOR) 25 mg tablet 25 mg by G-TUBE route two times a day. Hold for SBP less than 100, hold for HR less than 60 Active Comment on above: 0.5 tablets by ORAL/ FEEDING TUBE route every 12 hours. 25 mg by G-TUBE rout e two times a day. Hold for SBP less than 100, hold for HR less than 60 MULTIVITAMIN ORAL TAB (4 sources) Start: 5 End: take 1 tablet by mouth once [...] than 2.5 mg/dL - see admin instructions). tamsulosin hydrochloride 0.4 mg oral capsule (2 sources) alpha-Adrenergic Andrew End: 01-12-2025 tamsulosin (FLOMAX) 0.4 mg capsule 1 capsule (0.4 mg total) in the morning. Give via G-tube. 01/12/2025 Discontinued (Therapy completed) Problems Active Problems Problem Classification Problem Date Documented Da te Episodic/Chronic Acute cerebrovascular disease (19 sources) Ischemic stroke; Translations: [Cerebral infarction, unspecified] Onset: 07-03-2023 10-10-2023 Chronic Anxiety disorders (6 sources) Anxiety; Translations: [Anxiety disorder, unspecified] 06-25-2024 Chronic Chronic ulcer of skin (20 sources) Pressure ulcer of unspecified site, unspecified stage; Translations: [Pressure ulcer, unspecified site] Onset: 06-14-2023 Resolved: 08-13-2023 10-09-2023 Chronic Conduction disorders (7 sources) Right bundle branch block; Translations: [Unspecified right bundle-branch block] Onset: 08-20-2017 08-20-2017 Chronic Congestive heart failure; nonhypertensive (5 sources) Chronic heart failure co-occurrent with normal ejection fraction; Translations: [Chronic diastolic (congestive) heart failure] Onset: 05-07-2025 05-07-2025 Chronic Deficiency and other anemia (1 source) Iron deficiency anemia due to blood loss; Translations: [Iron deficiency anemia secondary to blood loss (chronic)] 01-03-2024 Chronic Epilepsy; convulsions (7 sources) Status epilepticus; Translations: [Epilepsy, unspecified, not intractable, with status epilepticus] Onset: 06-09-2023 06-09-2023 Chronic Headache; including migraine (15 sources) Refractory migraine variants; Translations: [Migraine with aura, intractable, without status migrainosus] Onset: 12-31-2003 01-03-2004 Chronic Infective arthritis and osteomyelitis (except that caused by tuberculosis or sexually transmitted disease) (2 sources) Osteomyelitis; Translations: [Osteomyelitis, unspecified] 05-28-2024 Chronic Inflammatory conditions of male genital organs (2 sources) Chronic prostatitis; Translations: [Chronic prostatitis] Onset: 10-01-2022 Chronic Mood disorders (1 source) Depressive disorder 09-30-2019 Chronic Nutritional deficiencies (15 sources) Malnutrition (calorie); Translations: [Moderate protein-calorie malnutrition] Onset: 10-11-2023 10-11-2023 Chronic Osteoarthritis (1 source) Arthritis 09-30-2019 Chronic Other acquired deformities (1 source) Scoliosis deformity of spine 09-30-2019 Chronic Other and ill-defined heart disease (5 sources) Cardiomegaly; Translations: [Cardiomegaly] Onset: 05-07-2025 05-07-2025 Chronic Other and ill-defined heart disease (1 source) Cardiomegaly; Translations: [Cardiomegaly] Onset: 05-07-2025 Chronic Other bone disease and musculoskeletal deformities (5 sources) Other idiopathic scoliosis, thoracolumbar region; Translations: [OTH IDIOPATH SCOLIOSIS TL REGION] Onset: 02-12-2022 Chronic Other connective tissue disease (4 sources) Spasticity; Translations: [Cramp and spasm] 05-28-2024 Episodic Other diseases of bladder and urethra (17 sources) Flaccid neurogenic bladder; 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, not elsewhere classified] Onset: 10-01-2022 Chronic Other eye disorders (2 sources) Nystagmus present; Translations: [Unspecified nystagmus] 01-13-2025 Chronic Other nervous system disorders (1 source) Other chronic pain; Translations: [OTHER CHRONIC PAIN] Onset: 02-16-2022 Chronic Other nervous system disorders (10 sources) Chronic pain syndrome; Translations: [Chronic pain syndrome] 07-28-2024 Chronic Other nervous system disorders (7 sources) Neuropathy; Translations: [Polyneuropathy, unspecified] Onset: 08-20-2017 08-20-2017 Chronic Other upper respiratory disease (15 sources) Tracheostomy present; Translations: [Tracheostomy status] Onset: 10-10-2023 10-18-2023 Chronic Other upper respiratory disease (1 source) Tracheostomy status; Translations: [Tracheostomy status] Onset: 11-18-2024 Chronic Paralysis (20 sources) 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; Translations: [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] Onset: 07-03-2023 10-10-2023 Chronic Rehabilitation care; fitting of prostheses; and adjustment of devices (12 sources) Patient encounter status; Translations: [Encounter for fitting and adjustment of other specified devices] Onset: 11-22-2023 11-22-2023 Chronic Residual codes; unclassified (2 sources) Pain; Translations: [Pain, unspecified] 06-25-2024 Episodic Residual codes; unclassified (3 sources) Edema, generalized; Translations: [Generalized edema] Onset: 05-07-2025 05-07-2025 Episodic Respiratory failure; insufficiency; arrest (adult) (20 sources) Chronic respiratory failure; Translations: [Chronic respiratory failure, unspecified whether with hypoxia or hypercapnia] Onset: 10-10-2023 10-14-2023 Chronic Respiratory failure; insufficiency; arrest (adult) (1 source) Respiratory failure; insufficiency; arrest (adult) Onset: 11-18-2024 Spondylosis; intervertebral disc disorders; other back problems (7 sources) Cervical spondylosis; Translations: [Other spondylosis with myelopathy, cervical region] Onset: 08-27-2017 08-27-2017 Chronic Unclassified (2 sources) LOW BACK PAIN, UNSPECIFIED; Translations: [LOW BACK PAIN, UNSPECIFIED] Onset: 01-16-2022 Unclassified (3 sources) Autogenerated Problem Onset: 12-30-2024 12-30-2024 Unclassified (1 source) OPENED IN ERROR 03-11-2025 Unclassified (1 source) New Patient Onset: 05-07-2025 Past or Other Problems Problem Classification Problem Date Documented Da te Episodic/Chronic Abdominal pain (6 sources) Unspecified abdominal pain; Translations: [Flank pain] Onset: 2 Episodic Acquired foot deformities (15 sources) Flat foot [pes planus] (acquired), unspecified foot; Translations: [Flat foot] Onset: 3 01-03-2004 Episodic Acute and unspecified renal failure (9 sources) Acute renal failure syndrome; Translations: [Acute kidney failure, unspecified] Onset: 4 Resolved: 4 11-26-2023 Episodic Aspiration pneumonitis; food/vomitus (12 sources) Aspiration pneumonia due to regurgitated gastric secretions; Translations: [Pneumonitis due to inhalation of food and vomit] Onset: 4 11-22-2023 Episodic Biliary tract disease (15 sources) Calculus of gallbladder with acute cholecystitis; Translations: [Calculus of gallbladder with acute cholecystitis without obstruction] Onset: 4 10-14-2023 Episodic Blindness and vision defects (12 sources) Visual hallucinations; Translations: [Visual hallucinations] Onset: 4 11-24-2023 Episodic Cardiac dysrhythmias (9 sources) Tachycardia; Translations: [Tachycardia, unspecified] Onset: 4 Resolved: 4 11-26-2023 Episodic Complication of device; implant or graft (12 sources) Urinary tract infectious disease; Translations: [Infection and inflammatory reaction due to indwelling urethral catheter, initial encounter] Onset: 4 11-22-2023 Episodic Complications of surgical procedures or medical care (15 sources) Ventilator associated pneumonia; Translations: [Ventilator associated [...] Onset: 2 Resolved: 2 Episodic Gastrointestinal hemorrhage (12 sources) Coffee ground vomiting; Translations: [Hematemesis] Onset: 4 11-21-2023 Episodic Genitourinary symptoms and ill-defined conditions (11 sources) Retention of urine; Translations: [Retention of urine, unspecified] Onset: 7 Episodic Joint disorders and dislocations; trauma-related (8 sources) Recurrent dislocation, right finger; Translations: [Subluxation of joint of cervical spine] Onset: 7 07-26-2017 Episodic Mood disorders (7 sources) Mood disorders Onset: 3 08-13-2023 Open wounds of head; neck; and trunk (12 sources) Finding of sacral region; Translations: [Unspecified open wound of lower back and pelvis without penetration into retroperitoneum, initial encounter] Onset: 4 11-23-2023 Episodic Other acquired deformities (1 source) Spondylolisthesis, site unspecified; Translations: [SPONDYLOLISTHESIS SITE UNSPECIFIED] Onset: 2 Episodic Other acquired deformities (7 sources) Lumbar spondylolisthesis; Translations: [Spondylolisthesis, lumbar region] Onset: 7 07-26-2017 Episodic Other circulatory disease (12 sources) History of cerebrovascular accident; Translations: [Personal history of transient ischemic attack (TIA), and cerebral infarction without residual deficits] Onset: 4 11-24-2023 Episodic Other connective tissue disease (16 sources) Infective myositis; Translations: [Infective myositis, unspecified left leg] Onset: 4 10-21-2023 Episodic Other connective tissue disease (1 source) Infective myositis, unspecified left leg; Translations: [Infective myositis of left lower extremity] Onset: 4 Episodic Other gastrointestinal disorders (12 sources) Incontinence of feces; Translations: [Full incontinence of feces] Onset: 4 11-22-2023 Episodic Other infections; including parasitic (15 sources) H/O: infectious disease; Translations: [Personal history of other infectious and parasitic diseases] Onset: 4 10-12-2023 Episodic Other lower respiratory disease (4 sources) Solitary pulmonary nodule; Translations: [SOLITARY PULMONARY NODULE] Onset: 2 Episodic Other nervous system disorders (12 sources) Tremor; Translations: [Tremor, unspecified] Onset: 4 11-24-2023 Episodic Other non-traumatic joint disorders (3 sources) Pain in right wrist; Translations: [PAIN IN RIGHT WRIST] Onset: 2 Episodic Other non-traumatic joint disorders (15 sources) Hip pain; Translations: [Pain in left hip] Onset: 4 10-17-2023 Episodic Other non-traumatic joint disorders (15 sources) Effusion of joint of left hip; Translations: [Effusion, left hip] Onset: 4 10-17-2023 Episodic Other non-traumatic joint disorders (7 sources) Limitation of joint movement; Translations: [Stiffness of unspecified joint, not elsewhere classified] Onset: 7 08-20-2017 Episodic Other screening for suspected conditions (not mental disorders or infectious disease) (20 sources) Electrocardiogram abnormal; Translations: [Abnormal electrocardiogram [ECG] [EKG]] Onset: 4 10-10-2023 Episodic Phlebitis; thrombophlebitis and thromboembolism (12 sources) H/O: Deep vein thrombosis; Translations: [Personal history of other venous thrombosis and embolism] Onset: 4 11-21-2023 Episodic Pneumonia (except that caused by tuberculosis or sexually transmitted disease) (20 sources) Infective pneumonia; Translations: [Pneumonia, unspecified organism] Onset: 3 11-22-2023 Episodic Residual codes; unclassified (15 sources) Urinary catheter in situ; Translations: [Presence of other specified devices] Onset: 4 10-12-2023 Episodic Septicemia (except in labor) (16 sources) Sepsis; Translations: [Sepsis, unspecified organism] Onset: 4 Resolved: 4 10-15-2023 Episodic Spondylosis; intervertebral disc disorders; other back problems (14 sources) Lumbago with sciatica, right side; Translations: [Pain in thoracic spine] Onset: 7 Episodic Unclassified (1 source) LOW BACK PAIN, UNSPECIFIED; Translations: [LOW BACK PAIN, UNSPECIFIED] Onset: 2 Urinary tract infections (15 sources) Urinary tract infection caused by Klebsiella; Translations: [Urinary tract infection, site not specified] Onset: 4 10-12-2023 Episodic Results Test Name Value Interpretation Reference Range Facility [employer] SMEARon 03-15-2025 AFB CULTURE CONCENTRATED INCLUDES AFB SMEAR CULTURE RESULTS NO ACID FAST BACILLI ISOLATED IN 8 WEEKS AFB SMEAR No Acid Fast Bacili (Concentrated Smear) Normal [place] Comment on above: Order Comment: Pre-o p diagnosis:Chronic respiratory failure, unspecified whether with hypoxia or hypercapnia ([facility]) [J96.10]Ventilator dependence ([facility]) [Z99.11]Tracheostomy status ([facility]) [Z93.0] Performed By: #### 6 24-7 #### [facility] ([id number]) [address], [address] [place] [address] BODY FLUID CELL COUNTon 07-[address] 0 /uL Normal [place] Comment on above: Order Comment: Pre-o p diagnosis:Chronic respiratory failure, unspecified whether with hypoxia or hypercapnia (CMS-HCC) [J96.10]Ventilator dependence (CMS-HCC) [Z99.11]Tracheostomy status (CMS-HCC) [Z93.0]Reference values for this fluid type are undefined, as fluid accumulation is considered abnormal. Performed By: #### 6 24-7 #### [facility] ([id number]) [address], [address] [place] [address] 603 /uL Normal [facility] Comment on above: Order Comment: Pre-o p diagnosis:Chronic respiratory failure, unspecified whether with hypoxia or hypercapnia (CMS-HCC) [J96.10]Ventilator dependence (CMS-HCC) [Z99.11]Tracheostomy status (CMS-HCC) [Z93.0]Reference values for this fluid type are undefined, as fluid accumulation is considered abnormal. Performed By: #### 6 24-7 #### [facility] ([id number]) [address], [address] [place] [address] PM FLUID CLARITY Hazy Normal [facility] Comment on above: Order Comment: Pre-o p diagnosis:Chronic respiratory failure, unspecified whether with hypoxia or hypercapnia (CMS-HCC) [J96.10]Ventilator dependence (CMS-HCC) [Z99.11]Tracheostomy status ([facility]) [Z93.0]Reference values for this fluid type are undefined, as fluid accumulation is considered abnormal. Performed By: #### 6 24-7 #### [facility] ([id number]) [address], [address] [place] [address] PM FLUID COLOR Colorless Normal [place] Comment on above: Order Comment: Pre-o p diagnosis:Chronic respiratory failure, unspecified whether with hypoxia or hypercapnia (CMS-HCC) [J96.10]Ventilator dependence (CMS-HCC) [Z99.11]Tracheostomy status (CMS-HCC) [Z93.0]Reference values for this fluid type are undefined, as fluid accumulation is considered abnormal. Performed By: #### 6 24-7 #### [facility] ([id number]) [address], [address] [place] [address] FUNGAL CULTURE INCLUDES LIONEL AL SMEARon 03-15-2025 FUNGAL CULTURE INCLUDES FUNGAL SMEAR CULTURE RESULTS NO FUNGUS ISOLATED AFTER 4 WEEKS FUNGAL SMEAR No fungal elements seen On Concentrated Smear Normal [place] Comment on above: Order Comment: Pre-o p diagnosis:Chronic respiratory failure, unspecified whether with hypoxia or hypercapnia (CMS-HCC) [J96.10]Ventilator dependence ([facility]-HCC) [Z99.11]Tracheostomy status ([facility]) [Z93.0] Performed By: #### 6 24-7 #### [facility] ([id number]) [address], [address] [place] [address] LOWER RESP CULTURE SPUTUM CU LTURE INC GRAM STAINon 03-15-2025 LOWER RESP CULTURE SPUTUM CULTURE INC GRAM STAIN CULTURE RESULTS PSEUDOMONAS SPECIES Few Pseudomonas species NON-LACTOSE FERMENTING GRAM NEGATIVE BACILLI Few Non-lactose fermenting gram negative bacilli Not Pseudomonas aeruginosa GRAM STAIN >25 White Blood Cells/LPF 0 Squamous Epithelial Cells/LPF 0 Ciliated Epithelial Cells/LPF Rare Gram positive coccobacilli Abnormal [place] Comment on above: Order Comment: Pre-o p diagnosis:Chronic respiratory failure, unspecified whether with hypoxia or hypercapnia ([facility]-HCC) [J96.10]Ventilator dependence ([facility]) [Z99.11]Tracheostomy status ([facility]) [Z93.0]Along with Moderate Normal Res[facility]. Performed By: #### 6 24-7 #### [facility] ([id number]) [address], [address] [place] [address] REFLEXED BODY FLUID CELL COU NT DIFFERENTIALon 03-15-2025 FLUID EOSINOPHIL RELATIVE PERCENT BY MANUAL COUNT 1 % Normal [place] Comment on above: Order Comment: Pre-o p diagnosis:Chronic respiratory failure, unspecified whether with hypoxia or hypercapnia (CMS-HCC) [J96.10]Ventilator dependence (CMS-HCC) [Z99.11]Tracheostomy status (CMS-HCC) [Z93.0]Reference values for this fluid type are undefined, as fluid accumulation is considered abnormal. Performed By: #### 6 24-7 #### [facility] ([id number]) [address], [address] [place] [address] FLUID LYMPHOCYTE RELATIVE PERCENT BY MANUAL COUNT 1 % Normal [place] Comment on above: Order Comment: Pre-o p diagnosis:Chronic respiratory failure, unspecified whether with hypoxia or hypercapnia (CMS-HCC) [J96.10]Ventilator dependence (CMS-HCC) [Z99.11]Tracheostomy status (CMS-HCC) [Z93.0]Reference values for this fluid type are undefined, as fluid accumulation is considered abnormal. Performed By: #### 6 24-7 #### [facility] ([id number]) [address], [address] [place] [address] FLUID MACROPHAGE RELATIVE PERCENT BY MANUAL COUNT 3 % Normal [place] Comment on above: Order Comment: Pre-o p diagnosis:Chronic respiratory failure, unspecified whether with hypoxia or hypercapnia (CMS-HCC) [J96.10]Ventilator dependence (CMS-HCC) [Z99.11]Tracheostomy status (CMS-HCC) [Z93.0]Reference values for this fluid type are undefined, as fluid accumulation is considered abnormal. Performed By: #### 6 24-7 #### [facility] ([id number]) [address], [address] [place] [address] FLUID NEUTROPHILS RELATIVE PERCENT BY MANUAL COUNT 95 % Normal [place] Comment on above: Order Comment: Pre-o p diagnosis:Chronic respiratory failure, unspecified whether with hypoxia or hypercapnia (CMS-HCC) [J96.10]Ventilator dependence (CMS-HCC) [Z99.11]Tracheostomy status (CMS-HCC) [Z93.0]Reference values for this fluid type are undefined, as fluid accumulation is considered abnormal. Performed By: #### 6 24-7 #### [facility] ([id number]) [address], [address] [place] [address] TOTAL CELLS COUNTED 100 % Normal [facility] Comment on above: Order Comment: Pre-o p diagnosis:Chronic respiratory failure, unspecified whether with hypoxia or hypercapnia ([facility]) [J96.10]Ventilator dependence ([facility]) [Z99.11]Tracheostomy status ([facility]) [Z93.0]Reference values for this fluid type are undefined, as fluid accumulation is considered abnormal. Performed By: #### 6 24-7 #### [facility] ([id number]) [address], [address] [place] [address] AFB CULTURE CONCENTRATED INC DEANN [employer] SMEARon 01-26-2025 AFB CULTURE CONCENTRATED INCLUDES AFB SMEAR CULTURE RESULTS NO ACID FAST BACILLI ISOLATED IN 8 WEEKS AFB SMEAR No Acid Fast Bacili (Concentrated Smear) Normal [place] Comment on above: Order Comment: Pre-o p diagnosis:CHRONIC RESPIRATORY FAILURERESPIRATOR DEPENDENTTRACHEOSTOMY STATUS Performed By: #### 6 24-7 #### [facility] ([id number]) [address] [place] [address] BODY FLUID CELL COUNTon 01-[address] 7 /uL Normal [place] Comment on above: Order Comment: Pre-o p diagnosis: CHRONIC RESPIRATORY FAILURE RESPIRATOR DEPENDENT TRACHEOSTOMY STATUS Reference values for this fluid type are undefined, as fluid accumulation is considered abnormal. Performed By: #### B FCT #### [facility] ([facility]) [address] [place] [address] 34 /uL Normal [facility] Comment on above: Order Comment: Pre-o p diagnosis: CHRONIC RESPIRATORY FAILURE RESPIRATOR DEPENDENT TRACHEOSTOMY STATUS Reference values for this fluid type are undefined, as fluid accumulation is considered abnormal. Performed By: #### B FCT #### [facility] ([facility]) [address] [place] [address] VIR PM FLUID CLARITY Clear Normal [facility] Comment on above: Order Comment: Pre-o p diagnosis: CHRONIC RESPIRATORY FAILURE RESPIRATOR DEPENDENT TRACHEOSTOMY STATUS Reference values for this fluid type are undefined, as fluid accumulation is considered abnormal. Performed By: #### B FCT #### [facility] ([facility]) [address] [place] [address] VIR PM FLUID COLOR Colorless Normal [place] Comment on above: Order Comment: Pre-o p diagnosis: CHRONIC RESPIRATORY FAILURE RESPIRATOR DEPENDENT TRACHEOSTOMY STATUS Reference values for this fluid type are undefined, as fluid accumulation is considered abnormal. Performed By: #### B FCT #### [facility] ([facility]) [address] [place] [address] VIR FUNGAL CULTURE INCLUDES LIONEL AL SMEARon 01-26-2025 FUNGAL CULTURE INCLUDES FUNGAL SMEAR CULTURE RESULTS NO FUNGUS ISOLATED AFTER 4 WEEKS FUNGAL SMEAR No fungal elements seen On Concentrated Smear Normal [place] Comment on above: Order Comment: Pre-o p diagnosis: CHRONIC RESPIRATORY FAILURE RESPIRATOR DEPENDENT TRACHEOSTOMY STATUS Performed By: #### F MORENO #### [facility] ([facility]) [address] [place] [address] VIR LOWER RESP CULTURE SPUTUM CU LTURE INC GRAM STAINon 01-26-2025 LOWER RESP CULTURE SPUTUM CULTURE INC GRAM STAIN CULTURE RESULTS Unable to evaluate for bacterial pathogens due to overgrowth of Proteus species. Suggest repeat specimen. LACTOSE FERMENTING GRAM NEGATIVE BACILLI Rare Lactose fermenting gram negative bacilli NON-LACTOSE FERMENTING GRAM NEGATIVE BACILLI Rare Non-lactose fermenting gram negative bacilli LACTOSE FERMENTING GRAM NEGATIVE BACILLI Rare Lactose fermenting gram negative bacilli GRAM STAIN 0 to 1 White Blood Cells/LPF 0 Squamous Epithelial Cells/LPF 0 Ciliated Epithelial Cells/LPF Corrected result: Previously reported as Rare Gram positive bacilli on 01/26/2025 at 2051 EDT. Rare Gram positive bacilli Abnormal [place] Comment on above: Order Comment: Pre-o p diagnosis: CHRONIC RESPIRATORY FAILURE RESPIRATOR DEPENDENT TRACHEOSTOMY STATUS Performed By: #### L RT #### [facility] ([facility]) [address] [place] [address] VIR REFLEXED BODY FLUID CELL COU NT DIFFERENTIALon 01-26-2025 FLUID EOSINOPHIL RELATIVE PERCENT BY MANUAL COUNT 1 % Normal [place] Comment on above: Order Comment: Pre-o p diagnosis: CHRONIC RESPIRATORY FAILURE RESPIRATOR DEPENDENT TRACHEOSTOMY STATUS Performed By: #### B FCT1 #### [facility] ([facility]) [address] [place] [address] VIR FLUID LYMPHOCYTE RELATIVE PERCENT BY MANUAL COUNT 4 % Normal [place] Comment on above: Order Comment: Pre-o p diagnosis: CHRONIC RESPIRATORY FAILURE RESPIRATOR DEPENDENT TRACHEOSTOMY STATUS Performed By: #### B FCT1 #### [facility] ([facility]) [address] [place] [address] VIR FLUID MACROPHAGE RELATIVE PERCENT BY MANUAL COUNT 21 % Normal [place] Comment on above: Order Comment: Pre-o p diagnosis: CHRONIC RESPIRATORY FAILURE RESPIRATOR DEPENDENT TRACHEOSTOMY STATUS Performed By: #### B FCT1 #### [facility] ([facility]) [address] [place] [address] VIR FLUID NEUTROPHILS RELATIVE PERCENT BY MANUAL COUNT 74 % Normal [place] Comment on above: Order Comment: Pre-o p diagnosis: CHRONIC RESPIRATORY FAILURE RESPIRATOR DEPENDENT TRACHEOSTOMY STATUS Performed By: #### B FCT1 #### [facility] ([facility]) [address] [place] [address] VIR TOTAL CELLS COUNTED 100 % Normal [facility] Comment on above: Order Comment: Pre-o p diagnosis: CHRONIC RESPIRATORY FAILURE RESPIRATOR DEPENDENT TRACHEOSTOMY STATUS Performed By: #### B FCT1 #### [facility] ([facility]) [address] [place] [address] ABDOMEN AND PELVIS W CONT on 12-09-2024 CT ABDOMEN AND PELVIS W CONT CT ABDOMEN AND PELVIS W CONT Clinical history: Right lower quadrant abdominal pain. Technique: Spiral CT of the abdomen and pelvis was performed after the intravenous administration of contrast material. Sagittal and coronal reformatted imaging was performed. All CT scans at this facility use dose modulation, iterative reconstruction, and/or weight based dosing when appropriate to reduce radiation dose to as low as reasonably achievable. Comparisons: 08/13/2023. Findings: Small left pleural effusion is increased in size. There is bibasilar consolidation fairly similar to prior exam. No pneumoperitoneum. Gastrostomy tube appears appropriately positioned within the stomach. Large fat-containing periumbilical hernia again seen. The liver, spleen, adrenal glands and pancreas appear unremarkable. Kidneys appear unremarkable. Renal collecting systems and ureters are not dilated. Abdominal aorta is not aneurysmal. No retroperitoneal nor mesenteric lymphadenopathy. No dilated bowel loops. No retroperitoneal nor intraperitoneal fluid collections. The appendix appears normal. Iverson catheter is present within nondistended urinary bladder. Large sacral decubitus ulcer has progressed significantly in the interim. The ulcer crater extends to the coccyx which is fragmented and destroyed consistent with osteomyelitis. No drainable soft tissue fluid collection. No acute fracture elsewhere. Advanced degenerative disc disease again noted at L1-L2. Fat-containing left inguinal hernia. IMPRESSION: 1. Large sacral decubitus ulcer with bony destruction and fragmentation of the underlying coccyx suggests osteomyelitis. No drainable fluid collection. 2. Interval increase in size of nonspecific left pleural effusion with persistent nonspecific bibasilar consolidation. Finalized by Rowan Melendrez MD on 12/09/2024 9:41 AM Normal [place] [employer] CULTURE(CONCENTRATED)on 11-18-2024 Mycobacterium sp identified Org specific cx Nom (Unsp spec) AFB SMEAR NO ACID FAST BACILLI (CONCENTRATED SMEAR) CULTURE RESULTS NO ACID FAST BACILLI ISOLATED IN 8 WEEKS Normal [place] Comment on above: Performed By: #### 5 43-9 #### [facility] ([id number]) [address] [place] [address] AND DIFFon 2024 BODY FLUID COMMENT Interpreta tion -------- Normal [place] Comment on above: Result Comment: Refe rence values for this fluid type are undefined, as fluid accumulation is considered abnormal. Assorted lining cells present. Performed By: #### B FCT #### [facility] ([id number]) [address], [address] [place] [address] FLUID CLARITY HAZY Normal [place] Comment on above: Performed By: #### B FCT #### [facility] ([id number]) [address] [place] [address] FLUID COLOR COLORLESS Normal [place] Comment on above: Performed By: #### B FCT #### [facility] ([id number]) [address] [place] [address] FLUID EOSINOPHIL 2 % Normal [facility] Comment on above: Performed By: #### B FCT #### [facility] ([id number]) [address] [place] [address] FLUID LYMPHOCYTE 1 % Normal [facility] Comment on above: Performed By: #### B FCT #### [facility] ([id number]) [address] [place] [address] FLUID NEUTROPHILS 58 % Normal [facility] Comment on above: Performed By: #### B FCT #### [facility] ([id number]) [address] [place] [address] 368 /uL Normal [place] Comment on above: Performed By: #### B FCT #### [facility] ([id number]) [address] [place] [address] FLUID SPECIMEN TYPE BRONCHOALVEOLAR LAVAGE Normal [place] Comment on above: Result Comment: LUNG , LOWER LOBE LEFT Corrected on 11/18 AT 1029: Previously reported as FLUID Performed By: #### B FCT #### [facility] ([id number]) [address] [place] [address] MACROPHAGES 39 % Normal [place] Comment on above: Performed By: #### B FCT #### [facility] ([id number]) [address] [place] [address] 435 /uL Normal [facility] Comment on above: Performed By: #### B FCT #### [facility] ([id number]) [address] [place] [address], [address] [address] Cytologyon 11-18-2024 Cytology Normal [place] Comment on above: Result Comment: [facility] [address] [place] [address] Cytology Consultation Patient Name:LOLIS QUINONES IIIDOB:1985 (Age: 39)Gender:MTaken:11/18/2024Reported:11/19/2024 17:26Physician(s):Erlinda Tejada MD ([phone])Copy To: Rec. #:[id number]: #[id number] Final Cytologic Diagnosis Left lower lobe bronchoalveolar lavage: No malignant cells identified. wak/11/19/2024 [place] [address], License number: [id number].Electronically Signed Out By Akin Palomino MD Clinical History Chronic respitory failure, Tracheostomy status, Dependence on respirator (ventilator) status. Z99.11, Tracheostomy status Z93.0 Gross Description Received was 20ml of cloudy colorless fluid unfixed labeled as [place], Left lower lobe, BAL . CytoLyt added in lab. Specimen placed in formalin at 17:00 and had a total fixation time of 8 hours. Source of Specimen Left lower lobe bronchoalveolar lavage Cell block for Non-gynecologist (M), Level 2 H&E, Non ADULT AND PEDIATRIC NEUROLOGIST ThinPrep Fee Code(s): 1; 83906, 98921 FUNGAL CULTUREon 11-18-2024 Fungus identified Cx Nom (Unsp spec) FUNGAL SMEAR NO FUNGAL ELEMENTS SEEN ON CONCENTRATED SMEAR CULTURE RESULTS NERI GLABRATA Abnormal [place] Comment on above: Performed By: #### 5 80-1 #### [facility] ([id number]) [address] [place] [address], [address] [place] [address] LOWER RESPIRATORY CULTUREon 11-18-2024 Bacteria identified Respiratory culture Nom (Sput) GRAM STAIN 10 to 24 WHITE BLOOD CELLS/LPF 0 SQUAMOUS EPITHELIAL CELLS/LPF 0 to 1 CILIATED EPITHELIAL CELLS/LPF NO ORGANISMS SEEN CULTURE RESULTS RARE STAPHYLOCOCCUS AUREUS METHICILLIN RESISTANT ALONG WITH RARE NORMAL ORAL CRUZ [ S = SUSCEPTIBLE R = RESISTANT I = INTERMEDIATE S-DO = Susceptible-dose dependent NS = Non-suscceptible NO = No Interpretation ] Organism: STAPHYLOCOCCUS AUREUS Antibiotic Interpretation JEFFREY Status CEFAZOLIN R F CLINDAMYCIN R 0.25 F INDUCIBLE RESISTANCE TO CLINDAMYCIN DETECTED OXACILLIN R >=4 F TRIMETH/SULFAMETHOXAZOLE S <=.5/9.5 F VANCOMYCIN S <=0.5 F DOXYCYCLINE S 1 F Susceptible [place] Comment on above: Performed By: #### 6 24-7 #### [facility] ([id number]) [address] [place] [address] CNPNon 06-16-2024 CNPN Normal [facility] MR Pelvis WO and W contrast Moris 05-21-2024 IMPRESSION: Sacrococcygeal osteomyelitis with overlying deep decubitus ulceration extending to the bone. Lens Assistant: [facility] Transcribe Date/Time: May 21 2024 9:56A Dictated by : NEDRA SAHU MD This examination was interpreted and the report reviewed and electronically signed by: NEDRA SAHU MD on May 21 2024 10:06AM [facility] DIVISION OF RADIOLOGY * * *Final Report* * * DATE OF EXAM: May 20 2024 6:16PM [facility] 0742 - MRI PELVIS WO/W IVCON / PROCEDURE REASON: Infective myositis of left lower extremity * * * * Physician Interpretation * * * * EXAMINATION: MRI PELVIS WO/W IVCON TECHNIQUE: Pre and postcontrast multiplanar MRI of the bony pelvis was performed utilizing T1-weighted and fluid sensitive sequences. HISTORY: Infective myositis of left lower extremity Abdominal abscess (Ped 0-18y) COMPARISON: CT abdomen/pelvis dated 11/22/2023. RESULT: There is decubitus ulceration over the sacrococcygeal junction with associated marrow edema/enhancement in T1 marrow replacement involving the distal coccyx and proximal sacrum. No other concerning marrow signal abnormality is identified. There are probably degenerative foci of marrow signal along the iliac margin of the right sacroiliac joint. Small nonspecific left hip joint effusion. No right hip joint effusion. No iliopsoas or trochanteric bursitis in either hip. There is nonspecific low-grade bilateral gluteal muscle edema. 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 No significant enhancement of these muscles to suggest myositis. There is bilateral gluteal muscle fatty infiltration. There appears to be an area of devitalized subcutaneous fat over the distal aspect of the right gluteus zachary muscle with some surrounding soft tissue edema. No acute tendon tearing. Nonspecific mildly enlarged left external iliac lymph node may be reactive. There is no soft tissue collection. DIVISION OF RADIOLOGY Provider, [facility] - 05/21/2024 * * *Final Report* * * DATE OF EXAM: May 20 2024 6:16PM [facility] 0742 - MRI PELVIS WO/W IVCON / PROCEDURE REASON: Infective myositis of left lower extremity * * * * Physician Interpretation * * * * EXAMINATION: MRI PELVIS WO/W IVCON TECHNIQUE: Pre and postcontrast multiplanar MRI of the bony pelvis was performed utilizing T1-weighted and fluid sensitive sequences. HISTORY: Infective myositis of left lower extremity Abdominal abscess (Ped 0-18y) COMPARISON: CT abdomen/pelvis dated 11/22/2023. RESULT: There is decubitus ulceration over the sacrococcygeal junction with associated marrow edema/enhancement in T1 marrow replacement involving the distal coccyx and proximal sacrum. No other concerning marrow signal abnormality is identified. There are probably degenerative foci of marrow signal along the iliac margin of the right sacroiliac joint. Small nonspecific left hip joint effusion. No right hip joint effusion. No iliopsoas or trochanteric bursitis in either hip. There is nonspecific low-grade bilateral gluteal muscle edema. 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 No significant enhancement of these muscles to suggest myositis. There is bilateral gluteal muscle fatty infiltration. There appears to be an area of devitalized subcutaneous fat over the distal aspect of the right gluteus zachary muscle with some surrounding soft tissue edema. No acute tendon tearing. Nonspecific mildly enlarged left external iliac lymph node may be reactive. There is no soft tissue collection. IMPRESSION IMPRESSION: Sacrococcygeal osteomyelitis with overlying deep decubitus ulceration extending to the bone. Lens Assistant: [facility] Transcribe Date/Time: May 21 2024 9:56A Dictated by : NEDRA SAHU MD This examination was interpreted and the report reviewed and electronically signed by: NEDRA SAHU MD on May 21 2024 10:06AM EST [facility] MR Pelvis WO and W contrast IVOrdered By: [facility] Provider on 05-21-2024 [facility] MR Pelvis WO and W contrast Moris 05-20-2024 Radiology Study observation (narrative) [facility] MRI PELVIS WO/W IVCONon 05-10 MRI PELVIS WO/W IVCON Normal [facility] CNPNon 01-03-2024 CNPN Normal [facility] CNPNon 01-01-2024 CNPN Normal [facility] CNPNon 12-20-2023 CNPN Normal [facility] Albumin SerPl-mCncon 024 Albumin [Mass/Vol] 2.8 g/dL Low 3.9-4.9 [facility] Comment on above: Order Comment: Speci men Type: BLOOD SPECIMEN Ordering Facility: [facility] Address: [address] [place] [address] Performed By: #### 3 3959-8, 97143-4, 48712-0 #### [facility] CLIA [id number] [address] [place] [address] [place] Basic metabolic 2000 panelon 11-28-2023 Anion gap [Moles/Vol] 7 mmol/L Low 9-18 [facility] Comment on above: Order Comment: Speci men Type: BLOOD SPECIMEN Ordering Facility: [facility] Address: [address] [place], [place] [address] Performed By: #### 3 3959-8, 04154-5, 14733-2 #### [facility] CLIA [id number] [address] [place] [address] [place] Calcium [Mass/Vol] 8.4 mg/dL Low 8.5-10.2 [facility] Comment on above: Order Comment: Speci men Type: BLOOD SPECIMEN Ordering Facility: [facility] Address: [address] [place] [address] Performed By: #### 3 3959-8, 39868-7, 70944-9 #### [facility] CLIA [id number] [address] [place] [address] [place] Chloride [Moles/Vol] 104 mmol/L Normal 97-105 [facility] Comment on above: Order Comment: Speci men Type: BLOOD SPECIMEN [facility] [facility] Address: [address] [place] [address] Performed By: #### 3 3959-8, 04298-3, 35264-0 #### [facility] CLIA [id number] [address] [place] [address] [place] CO2 [Moles/Vol] 26 mmol/L Normal 22-30 [facility] Comment on above: Order Comment: Speci men Type: BLOOD SPECIMEN Ordering Facility: [facility] Address: [address] [place] [address] Performed By: #### 3 3959-8, 17537-8, 31817-7 #### [facility] CLIA [id number] [address] [place] [address] [place] Creatinine [Mass/Vol] 0.58 mg/dL Low 0.73-1.22 [facility] Comment on above: Order Comment: Speci men Type: BLOOD SPECIMEN Ordering Facility: [facility] Address: [address] [place] [address] Performed By: #### 3 3959-8, 99662-1, 94267-8 #### [facility] CLIA [id number] [address] [place] [address] [place] Creatinine and Glomerular filtration rate.predicted panel (S/P/Bld) 127 mL/min/1.73m??? Normal >=60 [facility] Comment on above: Order Comment: Speci men Type: BLOOD SPECIMEN Ordering Facility: [facility] Address: [address] [place] [address] Result Comment: Rae mated Glomerular Filtration Rate [...] actual GFR. Performed By: #### 3 3959-8, 13962-0, 43969-6 #### [facility] CLIA [id number] [address] [place] [address] [place] Glucose [Mass/Vol] 118 mg/dL High 74-99 [facility] Comment on above: Order Comment: Darwin schwarz Type: BLOOD SPECIMEN Ordering [facility]: [facility] Address: [address] [place] [address] Result Comment: The [place] Diabetes Association (ADA) provides guidance for cutoff [...] Standards of Medical Care in Diabetes 2016, [place] [employer]. Diabetes Care. 2016.39(Suppl 1). Performed By: #### 3 3959-8, 89687-8, 57241-8 #### [facility] CLIA [id number] [address] [place] [address] [place] Potassium [Moles/Vol] 3.5 mmol/L Low 3.7-5.1 [facility] Comment on above: Order Comment: Darwin schwarz Type: BLOOD SPECIMEN Ordering Facility: [facility] Address: [address] [place] [address] Performed By: #### 3 3959-8, 67129-4, 51101-6 #### [facility] CLIA [id number] [address] [place] [address] [place] Sodium [Moles/Vol] 137 mmol/L Normal 136-144 [facility] Comment on above: Order Comment: Speci men Type: BLOOD SPECIMEN [facility]ing [facility]: [facility] Address: [address] [place] [address] Performed By: #### 3 3959-8, 84729-6, 76983-5 #### [facility] CLIA [id number] [address] [place] [address] [place] Urea nitrogen [Mass/Vol] 7 mg/dL Low 9-24 [facility] Comment on above: Order Comment: Speci men Type: BLOOD SPECIMEN [facility]ing [facility]: [facility] Address: [address] [place] [address] Performed By: #### 3 3959-8, 95942-5, 01095-5 #### [facility] CLIA [id number] [address] [place] [address] [place] CBC panel Auto (Bld)on 11-27 Erythrocyte distribution width (RBC) [Ratio] 18.0 % High 11.5-15.0 [facility] Comment on above: Order Comment: Speci men Type: BLOOD SPECIMENOrdering Facility: [facility] Address: [address] [place] [address] Performed By: #### 5 8410-2 ####[facility]ORYCLIA [id number] [place] [address] [place] Hematocrit (Bld) [Volume fraction] 27.3 % Low 39.0-51.0 [facility] Comment on above: Order Comment: Speci men Type: BLOOD SPECIMENOrdering Facility: [facility] Address: [address] [place] [address] Performed By: #### 5 8410-2 ####[facility]ORYCLIA [id number] [place] [address] [place] Hemoglobin (Bld) [Mass/Vol] 8.4 g/dL Low 13.0-17.0 [facility] Comment on above: Order Comment: Speci men Type: BLOOD SPECIMENOrdering Facility: [facility] Address: [address] [place] [address] Performed By: #### 5 8410-2 ####[facility] [id number] [place] [id number] [place] MCH (RBC) [Entitic mass] 25.1 pg Low 26.0-34.0 [facility] Comment on above: Order Comment: Speci men Type: BLOOD SPECIMENOrdering Facility: [facility] Address: [address] [place] [address] Performed By: #### 5 8410-2 ####[facility] [id number] [address] [place] MCHC (RBC) [Mass/Vol] 30.8 g/dL Normal 30.5-36.0 [facility] Comment on above: Order Comment: Speci men Type: BLOOD SPECIMENOrdering Facility: [facility] Address: [address] [place] [address] Performed By: #### 5 8410-2 ####[facility] [id number] [place] [address] [place] MCV (RBC) [Entitic vol] 81.7 fL Normal 80.0-100.0 [facility] Comment on above: Order Comment: Speci men Type: BLOOD SPECIMENOrdering Facility: [facility] Address: [address] [place] [address] Performed By: #### 5 8410-2 ####[facility] [id number] [address] [place] Nucleated RBC (Bld) [#/Vol] 10*3/uL Normal <0.01 [facility] Comment on above: Order Comment: Speci men Type: BLOOD SPECIMENOrdering Facility: [facility] Address: [address] [place] [address] Performed By: #### 5 8410-2 ####[facility] [id number] [place] [id number] [place] Platelet mean volume (Bld) [Entitic vol] 10.8 fL Normal 9.0-12.7 [facility] Comment on above: Order Comment: Speci men Type: BLOOD SPECIMENOrdering Facility: [facility] Address: [address] [place] [address] Performed By: #### 5 8410-2 ####[facility]ORYCLIA [id number] [place] [address] [place] Platelets (Bld) [#/Vol] 365 10*3/uL Normal 150-400 [facility] Comment on above: Order Comment: Speci men Type: BLOOD SPECIMENOrdering Facility: [facility] Address: [address] [place] [address] Performed By: #### 5 8410-2 ####[facility] [id number] [place] [address] [place] RBC (Bld) [#/Vol] 3.34 10*6/uL Low 4.20-6.00 [facility] Comment on above: Order Comment: Speci men Type: BLOOD SPECIMENOrdering Facility: [facility] Address: [address] [place] [address] Performed By: #### 5 8410-2 ####[facility] [id number] [place] [id number] [place] WBC (Bld) [#/Vol] 11.22 10*3/uL High 3.70-11.00 [facility] Comment on above: Order Comment: Speci men Type: BLOOD SPECIMENOrdering Facility: [facility] Address: [address] [place] [address] Performed By: #### 5 8410-2 ####[facility] [id number] [place] [id number] [place] Magnesium SerPl-mCncon 11-27 Magnesium [Mass/Vol] 2.1 mg/dL Normal 1.7-2.3 [facility] Comment on above: Order Comment: Speci men Type: BLOOD SPECIMEN [facility] Address: [address] [place] [address] Performed By: #### 3 3959-8, 50704-8, 91086-4 #### [facility] CLIA [id number] [address] [place] [address] [place] Phosphate [facility] 11-27 Phosphate [Mass/Vol] 3.3 mg/dL Normal 2.7-4.8 [facility] Comment on above: Order Comment: Speci men Type: BLOOD SPECIMEN [facility] Address: [address] [place] [address] Performed By: #### 3 3959-8, 28941-2, 96373-3 #### [facility] [place] [id number] [address] [place] [address] [place] Albumin [facility] 024 Albumin [Mass/Vol] 2.7 g/dL Low 3.9-4.9 [facility] Comment on above: Order Comment: Speci men Type: SWAB OF INTERNAL NOSE Order[facility] Address: [address] [place] [address] Performed By: #### S APCR #### [facility] CLIA [id number] [address] [place] [address] [place] Basic metabolic 2000 panelon 11-27-2023 Anion gap [Moles/Vol] 9 mmol/L Normal 9-18 [facility] Comment on above: Order Comment: Speci men Type: SWAB OF INTERNAL NOSE Order[facility] Address: [address] [place] [address] Performed By: #### S APCR #### [facility] CLIA [id number] [address] [place] [address] [place] Calcium [Mass/Vol] 8.6 mg/dL Normal 8.5-10.2 [facility] Comment on above: Order Comment: Speci men Type: SWAB OF INTERNAL NOSE Order[facility] Address: [address] [place] [address] Performed By: #### S APCR #### [facility] CLIA [id number] [address] [place] [address] [place] Chloride [Moles/Vol] 105 mmol/L Normal 97-105 [facility] Comment on above: Order Comment: Speci men Type: SWAB OF INTERNAL NOSE [facility] Address: [address] [place] [address] Performed By: #### S APCR #### [facility] CLIA [id number] [address] [place] [address] [place] CO2 [Moles/Vol] 26 mmol/L Normal 22-30 [facility] Comment on above: Order Comment: Speci men Type: SWAB OF INTERNAL NOSE [facility] Address: [address] [place] [address] Performed By: #### S APCR #### [facility] CLIA [id number] [address] [place] [address] [place] Creatinine [Mass/Vol] 0.62 mg/dL Low 0.73-1.22 [facility] Comment on above: Order Comment: Speci men Type: SWAB OF INTERNAL NOSE [facility] Address: [address] [place] [address] Performed By: #### S APCR #### [facility] CLIA [id number] [address] [place] [address] [place] Creatinine and Glomerular filtration rate.predicted panel (S/P/Bld) 125 mL/min/1.73m??? Normal >=60 [facility] Comment on above: Order Comment: Speci men Type: SWAB OF INTERNAL NOSE [facility] Address: [address] [place] [address] Result Comment: Rae mated Glomerular Filtration Rate [...] GFR. Performed By: #### S APCR #### [facility] CLIA [id number] [address] [place] [address] [place] Glucose [Mass/Vol] 100 mg/dL High 74-99 [facility] Comment on above: Order Comment: Speci men Type: SWAB OF INTERNAL NOSE [facility] Address: [address] [place] [address] Result Comment: The [place] Diabetes Association (ADA) provides guidance for cutoff [...] Standards of Medical Care in Diabetes 2016, [place] [employer]. Diabetes Care. 2016.39(Suppl 1). Performed By: #### S APCR #### [facility] CLIA [id number] [address] [place] [address] [place] Potassium [Moles/Vol] 3.6 mmol/L Low 3.7-5.1 [facility] Comment on above: Order Comment: Speci men Type: SWAB OF INTERNAL NOSE [facility] Address: [address] [place] [address] Performed By: #### S APCR #### [facility] CLIA [id number] [address] [place] [address] [place] Sodium [Moles/Vol] 140 mmol/L Normal 136-144 [facility] Comment on above: Order Comment: Speci men Type: SWAB OF INTERNAL NOSE [facility] Address: [address] [place] [address] Performed By: #### S APCR #### [facility] CLIA [id number] [address] [place] [address] [place] Urea nitrogen [Mass/Vol] 7 mg/dL Low 9-24 [facility] Comment on above: Order Comment: Speci men Type: SWAB OF INTERNAL NOSE [facility] Address: [address] [place] [address] Performed By: #### S APCR #### [facility] CLIA [id number] [address] [place] [address] [place] CBC panel Auto (Bld)on 11-26 Erythrocyte distribution width (RBC) [Ratio] 17.9 % High 11.5-15.0 [facility] Comment on above: Order Comment: Speci men Type: BLOOD SPECIMENOrdering Facility: [facility] Address: [address] [place] [address] Performed By: #### 5 8410-2 ####[facility]ITALIA [id number] [facility] [address] [place] [address] [place] Hematocrit (Bld) [Volume fraction] 30.1 % Low 39.0-51.0 [facility] Comment on above: Order Comment: Speci men Type: BLOOD SPECIMENOrdering Facility: [facility] Address: [address] [place] [address] Performed By: #### 5 8410-2 ####[facility]ORYIA [id number] [facility] [place] [address] [place] Hemoglobin (Bld) [Mass/Vol] 9.0 g/dL Low 13.0-17.0 [facility] Comment on above: Order Comment: Speci men Type: BLOOD SPECIMENOrdering Facility: [facility] Address: [address] [place] [address] Performed By: #### 5 8410-2 ####[facility]ORYIA [id number] [facility] [place] [address] [place] MCH (RBC) [Entitic mass] 25.4 pg Low 26.0-34.0 [facility] Comment on above: Order Comment: Speci men Type: BLOOD SPECIMENOrdering Facility: [facility] Address: [address] [place] [address] Performed By: #### 5 8410-2 ####[facility]ORYIA [id number] [place] [address] [place] MCHC (RBC) [Mass/Vol] 29.9 g/dL Low 30.5-36.0 [facility] Comment on above: Order Comment: Speci men Type: BLOOD SPECIMENOrdering Facility: [facility] Address: [address] [place] [address] Performed By: #### 5 8410-2 ####[facility]ITALIA [id number] [place] [address] [place] MCV (RBC) [Entitic vol] 84.8 fL Normal 80.0-100.0 [facility] Comment on above: Order Comment: Speci men Type: BLOOD SPECIMENOrdering Facility: [facility] Address: [address] [place] [address] Performed By: #### 5 8410-2 ####[facility] [id number] [place] [address] [place] Nucleated RBC (Bld) [#/Vol] 10*3/uL Normal <0.01 [facility] Comment on above: Order Comment: Speci men Type: BLOOD SPECIMENOrdering Facility: [facility] Address: [address] [place] [address] Performed By: #### 5 8410-2 ####[facility]ORYIA [id number] [place] [address] [place] Platelet mean volume (Bld) [Entitic vol] 10.8 fL Normal 9.0-12.7 [facility] Comment on above: Order Comment: Speci men Type: BLOOD SPECIMENOrdering Facility: [facility] Address: [address] [place] [address] Performed By: #### 5 8410-2 ####[facility]ORYCLIA [id number] [facility] [place] [address] [facility] [place] Platelets (Bld) [#/Vol] 401 10*3/uL High 150-400 [facility] Comment on above: Order Comment: Darwin scwharz Type: BLOOD SPECIMENOrdering Facility: [facility] Address: [address] [place] [address] Performed By: #### 5 8410-2 ####[facility]ORYCLIA [id number] [facility] [place] [address] [facility] [place] RBC (Bld) [#/Vol] 3.55 10*6/uL Low 4.20-6.00 [facility] Comment on above: Order Comment: Darwin schwarz Type: BLOOD SPECIMENOrdering Facility: [facility] Address: [address] [place] [address] Performed By: #### 5 8410-2 ####[facility]ITALIA [id number] [place] [id number] [facility] [place] WBC (Bld) [#/Vol] 15.59 10*3/uL High 3.70-11.00 [facility] Comment on above: Order Comment: Darwin schwarz Type: BLOOD SPECIMENOrdering Facility: [facility] Address: [address] [place] [address] Performed By: #### 5 8410-2 ####[facility]ATORYCLIA [id number] [facility] [place] [id number] [facility] CNDSon 11-27-2023 CNDS HNO ID: [id number] Author: NIGEL GUTIERREZ MD Service: Critical Care Author Type: Nurse Practitioner Type: Discharge Summary Filed: 11/28/2023 13:21 Note Text: -------- Attestation signed by Nigel Gutierrez MD at 11/28/2023 1:21 PM Attending Note Reviewed the discharge summary for this patient being cared for by the ICU team and agree with its content and above plan of care unless otherwise indicated. Time spent: 15 minutes. Signature: Nigel Gutierrez MD Date: November 28, 2023 Time: 1:21 PM -------- DISCHARGE SUMMARY PATIENT NAME: Lolis Quinones III [...] and cervical spinal stenosis who resides [facility] in [facility] who presented to [place] ED for fever and increased SOB. According [...] had a percutaneous kwasi tube placed at [facility] which was removed 10/10/2022. ED provider initially requested patient to transfer to MICU at [facility] per family request but due to bed availability, patient is to be admitted to ICU at [facility] for Sepsis and Chronic Respiratory Failure requiring continuous ventilator support. While in [facility] ICU patient was treated for suspected pneumonia [...] transfusion of 1 (more content not included)... [facility] CONSULT PROGon 11-27-2023 CONSULT PROG HNO ID: [id number] Author: DEONNA ANAND APRN.GRID MOLDER Service: Wound/Ostomy Author Type: Nurse Practitioner Type: [...] 0.0 11/21/2023 Abs Neut 19.91 11/21/2023 Abs [place] 0.66 11/21/2023 Abs Eosin 0.00 11/21/2023 Abs Baso 0.00 11/21/2023 Glucose (mg/dL) Date Value 11/27/2023 100 01/16/2005 63 Potassium (mmol/L) Date Value 11/27/2023 3.6 08/18/2023 4.3 01/16/2005 4.6 Sodium (mmol/L) Date Value 11/27/2023 140 06/15/2023 144 01/16/2005 142 Chloride (mmol/L) Date Value 11/27/2023 105 06/15/2023 102 01/16/2005 106 CO2 (mmol/L) Date (more content not included)... Normal [facility] Magnesium [facility] 11-26 Magnesium [Mass/Vol] 2.1 mg/dL Normal 1.7-2.3 [facility] Comment on above: Order Comment: [facility] Type: BLOOD SPECIMENOrdering Facility: [facility] Address: [address] [place], [place] [address] Performed By: #### 2 4321-2, 2777-1, 7, ####[facility]ATORYCLIA [id number] [place] [address] [facility] Phosphate [facility] 11-26 Phosphate [Mass/Vol] 2.9 mg/dL Normal 2.7-4.8 [facility] Comment on above: Order Comment: [facility] Type: BLOOD SPECIMENOrdering Facility: [facility] Address: [address] [place] [address] Performed By: #### 2 4321-2, 2777-1, 1751-03, ####[facility]ORATORYCLIA [id number] [place] [address] [facility] [place] ANES POSTPROC EVALon 024 ANES POSTPROC EVAL HNO ID: [id number] Author: CLAIR DAVIES MD Service: Anesthesiology Author Type: Anesthesiologist Type: Anesthesia Postprocedure Evaluation Filed: 11/26/2023 15:30 Note Text: POST ANESTHESIA EVALUATION NOTE : 1985 Procedure Summary Date: 11/26/23 Room / Location: Procedures Anesthesia Start: 1314 Anesthesia Stop: 1405 Procedure: EGD DIAGNOSTIC Diagnosis: (Suspected upper GI bleeding) Scheduled Providers: Sergei Alatorre MD; Chemo Rosales MD; Cal Morris APRN.[employer]; Safia Perez RN Responsible Provider: Chemo Rosales [...] November 26, 2023 TIME: 3:30 PM CSN: [id number] [facility] ANES PRE-OPon 11-26-2023 ANES PRE-OP HNO ID: [id number] Author: CHEMO ROSALES MD Service: Anesthesiology Author Type: Anesthesiologist Type: Anesthesia Preprocedure Evaluation Filed: 11/26/2023 11:54 Note Text: ANESTHESIOLOGY DAY OF SURGERY NOTE : 1985 Procedure Information Date/Time: 11/26/23 1245 Scheduled providers: Sergei Alatorre MD; Chemo Rosales MD; Cal Morris APRN.[employer]; Safia Perez RN Procedure: EGD DIAGNOSTIC Location: [...] pneumonia) (HCC) Neurology (+) 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 Patient / Responsible [employer] agrees to proceed: yes Patient / [...] the medica (more content not included)... Normal [facility]in [facility] 024 Albumin [Mass/Vol] 2.8 g/dL Low 3.9-4.9 [facility] Comment on above: Order Comment: Speci men Type: BLOOD SPECIMENOrdering Facility: [facility] Address: [address] [place] [address] Performed By: #### 1 9123-9, 1751-7, 2571-8, 98081-6 ####[facility]ORATORYCLIA [id number] [place] [address] [place] Basic metabolic 2000 panelon 11-26-2023 Anion gap [Moles/Vol] 7 mmol/L Low 9-18 [facility] Comment on above: Order Comment: Speci men Type: BLOOD SPECIMENOrdering Facility: [facility] Address: [address] [place] [address] Performed By: #### 1 9123-9, 1750-7, 2570-8, 15257-2 ####[facility]ORATORYCLIA [id number] [place] [address] [place] Calcium [Mass/Vol] 8.8 mg/dL Normal 8.5-10.2 [facility] Comment on above: Order Comment: Speci men Type: BLOOD SPECIMENOrdering Facility: [facility] Address: [address] [place] [address] Performed By: #### 1 9123-9, 1750-7, 2570-8, 74454-6 ####[facility]ORATORYCLIA [id number] [place] [address] [place] Chloride [Moles/Vol] 106 mmol/L High 97-105 [facility] Comment on above: Order Comment: Speci men Type: BLOOD SPECIMENOrdering Facility: [facility] Address: [address] [place] [address] Performed By: #### 1 9123-9, 1750-7, 257-8, 07470-8 ####[facility]ORATORYCLIA [id number] [place] [address] [place] CO2 [Moles/Vol] 28 mmol/L Normal 22-30 [facility] Comment on above: Order Comment: Speci men Type: BLOOD SPECIMENOrdering Facility: [facility] Address: [address] [place] [address] Performed By: #### 1 9123-9, 175-7, 2570-8, 21082-1 ####[facility] LABORATORYCLIA [id number] [place] [address] [place] Creatinine [Mass/Vol] 0.50 mg/dL Low 0.73-1.22 [facility] Comment on above: Order Comment: Speci men Type: BLOOD SPECIMENOrdering Facility: [facility] Address: [address] [place] [address] Performed By: #### 1 9123-9, 1750-7, 2570-8, 68877-5 ####[facility]ORATORYCLIA [id number] [place] [address] [place] Creatinine and Glomerular filtration rate.predicted panel (S/P/Bld) 133 mL/min/1.73m??? Normal >=60 [facility] Comment on above: Order Comment: Speci men Type: BLOOD SPECIMENOrdering Facility: [facility] Address: [address] [place] [address] Result Comment: Rae mated Glomerular Filtration Rate [...] actual GFR. Performed By: #### 1 9123-9, 175-7, 2570-8, 58819-0 ####[facility]ORATORYCLIA [id number] [place] [address] [place] Glucose [Mass/Vol] 94 mg/dL Normal 74-99 [facility] Comment on above: Order Comment: Speci men Type: BLOOD SPECIMENOrdering Facility: [facility] Address: [address] [place] [address] Result Comment: The [place] Diabetes Association (ADA) provides guidance for cutoff [...] Standards of Medical Care in Diabetes 2016, [place] [employer] Association. Diabetes Care. 2016.39(Suppl 1). Performed By: #### 1 9123-9, 1751-7, 2570-8, 16281-9 ####[facility] LABORATORYCLIA [id number] [place] [address] [place] Potassium [Moles/Vol] 3.4 mmol/L Low 3.7-5.1 [facility] Comment on above: Order Comment: Gabrielai men Type: BLOOD SPECIMENOrdering Facility: [facility] Address: [address] [place] [address] Performed By: #### 1 9123-9, 175-7, 2570-8, 39922-8 ####[facility] LABORATORYCLIA [id number] [place] [address] [place] Sodium [Moles/Vol] 141 mmol/L Normal 136-144 [facility] Comment on above: Order Comment: Gabrielai men Type: BLOOD SPECIMENOrdering Facility: [facility] Address: [address] [place] [address] Performed By: #### 1 9123-9, 1751-7, 257-8, 20002-4 ####[facility] LABORATORYCLIA [id number] [place] [address] [place] Urea nitrogen [Mass/Vol] 7 mg/dL Low 9-24 [facility] Comment on above: Order Comment: Gabrielai men Type: BLOOD SPECIMENOrdering Facility: [facility] Address: [address] [place] [address] Performed By: #### 1 9123-9, 1751-7, 2571-8, 23652-4 ####[facility] LABORATORYCLIA [id number] [place] [address] [facility] CBC panel Auto (Bld)on 11-25 Erythrocyte distribution width (RBC) [Ratio] 17.5 % High 11.5-15.0 [facility] Comment on above: Order Comment: Speci men Type: BLOOD SPECIMENOrdering Facility: [facility] Address: [address] [place] [address] Performed By: #### 5 8410-2 ####[facility] LABORATORYIA [id number] [place] [id number] [facility] [place] Hematocrit (Bld) [Volume fraction] 27.2 % Low 39.0-51.0 [facility] Comment on above: Order Comment: Speci men Type: BLOOD SPECIMENOrdering Facility: [facility] Address: [address] [place] [address] Performed By: #### 5 8410-2 ####[facility] HOSPITALIA [id number] [address] [place] Hemoglobin (Bld) [Mass/Vol] 8.3 g/dL Low 13.0-17.0 [facility] Comment on above: Order Comment: Speci men Type: BLOOD SPECIMENOrdering Facility: [facility] Address: [address] [place] [address] Performed By: #### 5 8410-2 ####[facility] LABORATORYIA [id number] [place] [address] [place] MCH (RBC) [Entitic mass] 25.2 pg Low 26.0-34.0 [facility] Comment on above: Order Comment: Speci men Type: BLOOD SPECIMENOrdering Facility: [facility] Address: [address] [place] [address] Performed By: #### 5 8410-2 ####[facility] LABORATORYIA [id number] [place] [address] [facility] MCHC (RBC) [Mass/Vol] 30.5 g/dL Normal 30.5-36.0 [facility] Comment on above: Order Comment: Speci men Type: BLOOD SPECIMENOrdering Facility: [facility] Address: [address] [place] [address] Performed By: #### 5 8410-2 ####[facility] LABORATORYIA [id number] [place] [address] [place] MCV (RBC) [Entitic vol] 82.7 fL Normal 80.0-100.0 [facility] Comment on above: Order Comment: Speci men Type: BLOOD SPECIMENOrdering Facility: [facility] Address: [address] [place] [address] Performed By: #### 5 8410-2 ####[facility] [id number] [place] [id number] [place] Nucleated RBC (Bld) [#/Vol] 10*3/uL Normal <0.01 [facility] Comment on above: Order Comment: Speci men Type: BLOOD SPECIMENOrdering Facility: [facility] Address: [address] [place] [address] Performed By: #### 5 8410-2 ####[facility] HOSPITALIA [id number] [address] [place] Platelet mean volume (Bld) [Entitic vol] 10.5 fL Normal 9.0-12.7 [facility] Comment on above: Order Comment: Speci men Type: BLOOD SPECIMENOrdering Facility: [facility] Address: [address] [place] [address] Performed By: #### 5 8410-2 ####[facility]PITALIA [id number] [place] [id number] [place] Platelets (Bld) [#/Vol] 321 10*3/uL Normal 150-400 [facility] Comment on above: Order Comment: Speci men Type: BLOOD SPECIMENOrdering Facility: [facility] Address: [address] [place] [address] Performed By: #### 5 8410-2 ####[facility] LABORATORYIA [id number] [place] [address] [place] RBC (Bld) [#/Vol] 3.29 10*6/uL Low 4.20-6.00 [facility] Comment on above: Order Comment: Speci men Type: BLOOD SPECIMENOrdering Facility: [facility] Address: [address] [place] [address] Performed By: #### 5 8410-2 ####[facility] HOSPITALIA [id number] [place] [address] [place] WBC (Bld) [#/Vol] 10.68 10*3/uL Normal 3.70-11.00 [facility] Comment on above: Order Comment: Speci men Type: BLOOD SPECIMENOrdering Facility: [facility] Address: [address] [place] [address] Performed By: #### 5 8410-2 ####[facility] HOSPITALIA [id number] [place] [address] [place] HISTORY PHYSICALon HISTORY PHYSICAL HNO ID: [id number] Author: SERGEI ALATORRE MD Service: Gastroenterology Author [...] procedure: GI bleeding PROCEDURE(S) SCHEDULED FOR: EGD (Esophagogastroduodenosc opy) with or without biopsies, removal of polyps [...] non-tender, no masses or organomegaly. Sedation Plan: [facility] Additional Comments: None Sergei Alatorre MD [facility] Magnesium [facility] 11-25 Magnesium [Mass/Vol] 2.1 mg/dL Normal 1.7-2.3 [facility] Comment on above: Order Comment: Darwin schwarz Type: BLOOD SPECIMENOrdering Facility: [facility] Address: [address] [place] [address] Performed By: #### 1 9123-9, 1751-7, 2571-8, 89862-8 ####[facility] HOSPITALIA [id number] [address] Phosphate [facility] 11-25 Phosphate [Mass/Vol] 3.2 mg/dL Normal 2.7-4.8 [facility] Comment on above: Order Comment: Darwin schwarz Type: BLOOD SPECIMENOrdering Facility: [facility] Address: [address] [place] [address] Performed By: #### 2 777-1 ####[facility] HOSPITALIA [id number] [address] SURGICAL PATHOLOGYon 024 ADDENDUM 1: [facility] Comment on above: Order Comment: Darwin schwarz Type: TISSUE SPECIMENOrdering Facility: [facility] Address: [address] [place] [address] Result Comment: Izaiah David iven the background [...] been determined by the performing laboratory within [facility]???s Rowan Aggarwal Pathology and Laboratory Medicine [place] ([facility], [facility], [facility], [facility], [facility], [facility], or [facility]) in a manner consistent with CLIA [...] at 10:15 AM Performed By: #### S ####[facility] [id number] [address] LABCLIA [id number] [address] CASE REPORT [facility] Comment on above: Order Comment: Speci men Type: TISSUE SPECIMENOrdering Facility: [facility] Address: [address] [place] [address] Result Comment: Surg [facility] Pathology Report Case: [id number] Authorizing Provider: Sergei Alatorre MD Collected: 11/26/2023 01:43 PM Ordering Location: Procedures Received: 11/26/2023 01:57 PM Pathologist: Christine Gomez MD Specimen: STOMACH BIOPSY, r/o h. pylori Performed By: #### S ####[facility]FIELDIA [id number] [address] LABCLIA [id number] [address] DIAGNOSIS COMMENT A. Immunohistochemic al staining for Helicobacter pylori organisms is pending; the result will be reported as an addendum. [facility] Comment on above: Order Comment: Gabrielai men Type: TISSUE SPECIMENOrdering Facility: [facility] Address: [address] [place] [address] Performed By: #### S ####[facility] LABORATORYCLIA [id number] [address] LABCLIA [id number] [address] FINAL DIAGNOSIS [facility] Comment on above: Order Comment: Speci men Type: TISSUE SPECIMENOrdering Facility: [facility] Address: [address] [place] [address] Result Comment: Izaaih zuleta, biopsy: - Chronic active gastritis; see comment. Performed By: #### S ####[facility] LABORATORYCLIA [id number] [address] LABCLIA [id number] [address] FINAL PERFORMING LAB [facility] Comment on above: Order Comment: Speci men Type: TISSUE SPECIMENOrdering Facility: [facility] Address: [address] [place] [address] Result Comment: Diag nostic interpretation performed at [facility], [address] [place] [address] CLIA# [id number] Mastercam Programmer: Christine Gomez M.D. Performed By: #### S ####[facility] LABORATORYCLIA [id number] [address] LABCLIA [id number] [address] GROSS DESCRIPTION [facility] Comment on above: Order Comment: Speci men Type: TISSUE SPECIMENOrdering Facility: [facility] Address: [address] [place] [address] Result Comment: Jenny. Jose ZULETA BIOPSY Received in formalin are multiple pieces of cervantes, soft tissue aggregating to 0.9 x 0.2 x 0.1 cm. Totally submitted in one cassette. SS November 26, 2023 7:43 PM Gross examination performed at [facility], [address] [place] [address] Performed By: #### S ####[facility] LABORATORYCLIA [id number] [place] [address] [place] [facility] LABCLIA [id number] [place] [address] [id number] [place] Trigl SerPl-mCncon Triglyceride [Mass/Vol] 187 mg/dL High <150 [facility] Comment on above: Order Comment: Speci men Type: BLOOD SPECIMENOrdering Facility: [facility] Address: [address] [place] [address] Result Comment: <150 mg/dL, Normal 150-199 mg/dL, Borderline high 200-499 mg/dL, High >499 mg/dL, Very high Reference: 1. National Cholesterol Education Program ATP III Guideline At-A-Glance Quick Desk Reference: National Heart, Lung, and Blood [place]. National Institutes of Health. 2001: NIH Publication No. 01-3305. Performed By: #### 1 9123-9, 1751-7, 2571-8, 07919-5 ####[facility]USCLIA [id number] [place] [address] [place] [facility] Triglyceride [Mass/Vol]on FASTING TIME 24 hrs Normal [facility] Comment on above: Order Comment: Speci men Type: BLOOD SPECIMENOrdering Facility: [facility] Address: [address] [place] [address] Performed By: #### 1 9123-9, 1751-7, 2571-8, 13178-5 ####[facility] LABORATORYCLIA [id number] [place] [address] [place] Upper GI endoscopyon 024 Upper GI endoscopy [facility] Gastrointestinal Endoscopy Patient Name: Lolis Quinones Procedure Date: 11/26/2023 12:54 PM Date of : 1985 Admit Type: Inpatient Age: 38 Room: [facility] 02 Gender: Male Note Status: Finalized Attending MD: Sergei Alatorre MD, [id number] Procedure: Upper GI endoscopy Indications: Suspected upper [...] the patient. Procedure Code(s): --- Professional --- 14345, Esophagogastroduodenosco py, flexible, transoral; with biopsy, single or multiple Diagnosis Code(s): --- Professional --- K31.89, Other diseases of stomach and duodenum K29.71, Gastritis, unspecified, with bleeding CPT copyright 2020 [place] [employer]. All rights reserved. The codes documented in this report are preliminary and upon skiver welt end review may be revised to meet current compliance requirements. Attending Participation: I personally performed the entire procedure. Scope In: 1:32:00 PM Scope Out: 1:37:10 PM MD Sergei Coleman MD 11/26/2023 1:57:13 PM This report has been signed electronically by Sergei Alatorre MD Number of Addenda: 0 Note Initiated On: 11/26/2023 12:54 PM Estimated Blood Loss: Estimated blood loss was minimal. Normal [facility] Basic metabolic 2000 panelon 11-25-2023 Anion gap [Moles/Vol] 8 mmol/L Low 05-27 [facility] Comment on above: Order Comment: Speci men Type: BLOOD SPECIMENOrdering Facility: [facility] Address: [address] [place] [address] Performed By: #### 1 988-5, 16820-1, 35724-8, ####[facility] LABORATORYCLIA [id number] [place] [address] [place] Calcium [Mass/Vol] 8.6 mg/dL Normal 8.5-10.2 [facility] Comment on above: Order Comment: Speci men Type: BLOOD SPECIMENOrdering Facility: [facility] Address: [address] [place] [address] Performed By: #### 1 988-5, 71690-5, 43309-3, ####[facility] LABORATORYCLIA [id number] [place] [address] [place] Chloride [Moles/Vol] 103 mmol/L Normal 97-105 [facility] Comment on above: Order Comment: Speci men Type: BLOOD SPECIMENOrdering Facility: [facility] Address: [address] [place] [address] Performed By: #### 1 988-5, 87293-1, 79168-0, ####[facility]USCLIA [id number] [place] [address] [place] CO2 [Moles/Vol] 27 mmol/L Normal 22-30 [facility] Comment on above: Order Comment: Speci men Type: BLOOD SPECIMENOrdering Facility: [facility] Address: [address] [place] [address] Performed By: #### 1 988-5, 66474-8, 40208-6, ####[facility] LABORATORYCLIA [id number] [place] [address] [place] Creatinine [Mass/Vol] 0.52 mg/dL Low 0.73-1.22 [facility] Comment on above: Order Comment: Speci men Type: BLOOD SPECIMENOrdering Facility: [facility] Address: [address] [place] [address] Performed By: #### 1 988-5, 22220-5, 48196-1, ####[facility] LABORATORYCLIA [id number] [place] [address] [place] Creatinine and Glomerular filtration rate.predicted panel (S/P/Bld) 131 mL/min/1.73m??? Normal >=60 [facility] Comment on above: Order Comment: Darwin schwarz Type: BLOOD SPECIMENOrdering Facility: [facility] Address: [address] [place] [address] Result Comment: Rae mated Glomerular Filtration Rate [...] actual GFR. Performed By: #### 1 988-5, 38778-4, 95745-3, 33243-6 ####[facility] LABORATORYCLIA [id number] [place] [address] [place] Glucose [Mass/Vol] 99 mg/dL Normal 74-99 [facility] Comment on above: Order Comment: Darwin schwarz Type: BLOOD SPECIMENOrdering Facility: [facility] Address: [address] [place] [address] Result Comment: The [place] Diabetes Association (ADA) provides guidance for cutoff [...] Standards of Medical Care in Diabetes 2016, [place] [employer]. Diabetes Care. 2016.39(Suppl 1). Performed By: #### 1 988-5, 98635-2, 41861-3, 53322-2 ####[facility] LABORATORYCLIA [id number] [place] [address] [place] Potassium [Moles/Vol] 3.9 mmol/L Normal 3.7-5.1 [facility] Comment on above: Order Comment: Speci men Type: BLOOD SPECIMENOrdering Facility: [facility] Address: [address] [place] [address] Performed By: #### 1 988-5, 12769-7, 01067-6, 35380-7 ####[facility] LABORATORYCLIA [id number] [place] [address] [place] Sodium [Moles/Vol] 138 mmol/L Normal 136-144 [facility] Comment on above: Order Comment: Speci men Type: BLOOD SPECIMENOrdering Facility: [facility] Address: [address] [place] [address] Performed By: #### 1 988-5, 52064-0, 48285-7, 08556-2 ####[facility] LABORATORYCLIA [id number] [place] [address] [place] Urea nitrogen [Mass/Vol] 9 mg/dL Normal 9-24 [facility] Comment on above: Order Comment: Speci men Type: BLOOD SPECIMENOrdering Facility: [facility] Address: [address] [place] [address] Performed By: #### 1 988-5, 38675-0, 88559-1, 34468-3 ####[facility] LABORATORYCLIA [id number] [place] [address] [place] CBC panel Auto (Bld)on 11-24 Erythrocyte distribution width (RBC) [Ratio] 17.1 % High 11.5-15.0 [facility] Comment on above: Order Comment: Speci men Type: BLOOD SPECIMEN [facility] Address: [address] [place] [address] Performed By: #### 3 3959-8, 09443-4, 41940-5 #### [facility] CLIA [id number] [address] [place] [address] [place] Hematocrit (Bld) [Volume fraction] 27.4 % Low 39.0-51.0 [facility] Comment on above: Order Comment: Speci men Type: BLOOD SPECIMEN [facility] Address: [address] [place] [address] Performed By: #### 3 3959-8, 06717-1, 45412-4 #### [facility] CLIA [id number] [address] [place] [address] [place] Hemoglobin (Bld) [Mass/Vol] 8.4 g/dL Low 13.0-17.0 [facility] Comment on above: Order Comment: Speci men Type: BLOOD SPECIMEN [facility] Address: [address] [place] [address] Performed By: #### 3 3959-8, 79732-3, 81352-2 #### [facility] CLIA [id number] [place] MCH (RBC) [Entitic mass] 25.5 pg Low 26.0-34.0 [facility] Comment on above: Order Comment: Speci men Type: BLOOD SPECIMEN [facility] Address: [address] [place] [address] Performed By: #### 3 3959-8, 19371-6, 17929-0 #### [facility] CLIA [id number] [address] [place] [address] [place] MCHC (RBC) [Mass/Vol] 30.7 g/dL Normal 30.5-36.0 [facility] Comment on above: Order Comment: Speci men Type: BLOOD SPECIMEN [facility] Address: [address] [place] [address] Performed By: #### 3 3959-8, 23674-9, 96579-4 #### [facility] CLIA [id number] [address] [place] [address] [place] MCV (RBC) [Entitic vol] 83.0 fL Normal 80.0-100.0 [facility] Comment on above: Order Comment: Speci men Type: BLOOD SPECIMEN [facility] Address: [address] [place] [id number] Performed By: #### 3 3959-8, 37440-0, 25161-7 #### [facility] CLIA [id number] [address] [place] [address] [place] Nucleated RBC (Bld) [#/Vol] 10*3/uL Normal <0.01 [facility] Comment on above: Order Comment: Speci men Type: BLOOD SPECIMEN [facility] Address: [address] [place] [address] Performed By: #### 3 3959-8, 83997-9, 91963-7 #### [facility] CLIA [id number] [address] [place] [address] [place] Platelet mean volume (Bld) [Entitic vol] 11.1 fL Normal 9.0-12.7 [facility] Comment on above: Order Comment: Speci men Type: BLOOD SPECIMEN [facility] Address: [address] [place], [place] [address] Performed By: #### 3 3959-8, 96041-9, 01949-1 #### [facility] CLIA [id number] [address] [place] [address] [place] Platelets (Bld) [#/Vol] 343 10*3/uL Normal 150-400 [facility] Comment on above: Order Comment: Speci men Type: BLOOD SPECIMEN [facility] Address: [address] [place] [address] Performed By: #### 3 3959-8, 75691-8, 06371-0 #### [facility] CLIA [id number] [address] [place] [address] [place] RBC (Bld) [#/Vol] 3.30 10*6/uL Low 4.20-6.00 [facility] Comment on above: Order Comment: Speci men Type: BLOOD SPECIMEN [facility] Address: [address] [place] [address] Performed By: #### 3 3959-8, 21092-1, 49672-2 #### [facility] CLIA [id number] [place] [address] [facility] WBC (Bld) [#/Vol] 12.71 10*3/uL High 3.70-11.00 [facility] Comment on above: Order Comment: Speci men Type: BLOOD SPECIMEN [facility] Address: [address] [place] [address] Performed By: #### 3 3959-8, 61778-8, 77283-3 #### [facility] CLIA [id number] [address] [place] [address] [facility] CONSULT PROGon 11-25-2023 CONSULT PROG HNO ID: [id number] Author: TONIA TARANGO APRN.GRID MOLDER Service: Gastroenterology Author Type: Nurse Practitioner Type: [...] 3 pt drop from baseline hgb. Dr. Altaorre explained in details the indication for EGD [...] done. NPO after MN for procedure. Normal [facility] CRP SerPl-mCncon 11-25-2023 CRP [Mass/Vol] 3.8 mg/dL High <0.9 [facility] Comment on above: Order Comment: Speci men Type: BLOOD SPECIMENOrdering Facility: [facility] Address: [address] [place] [address] Performed By: #### 1 988-5, 81581-8, 70224-4, ####[facility] LABORATORYIA [id number] [place] [address] [facility] [place] Hepatic function 2000 panelo n 11-25-2023 Albumin [Mass/Vol] 2.7 g/dL Low 3.9-4.9 [facility] Comment on above: Order Comment: Speci men Type: BLOOD SPECIMENOrdering Facility: [facility] Address: [address] [place] [address] Performed By: #### 1 988-5, 78429-5, 14523-5, ####[facility] HOSPITALIA [id number] [place] [address] [place] ALP [Catalytic activity/Vol] 90 U/L Normal 38-113 [facility] Comment on above: Order Comment: Speci men Type: BLOOD SPECIMENOrdering Facility: [facility] Address: [address] [place] [address] Performed By: #### 1 988-5, 87916-6, 56558-1, ####[facility]ITALIA [id number] [place] [address] [place] ALT [Catalytic activity/Vol] 7 U/L Low 10-54 [facility] Comment on above: Order Comment: Speci men Type: BLOOD SPECIMENOrdering Facility: [facility] Address: [address] [place] [address] Performed By: #### 1 988-5, 42651-7, 68724-0, 32359-6 ####[facility] LABORATORYIA [id number] [place] [address] [place] AST [Catalytic activity/Vol] 11 U/L Low 14-40 [facility] Comment on above: Order Comment: Speci men Type: BLOOD SPECIMENOrdering Facility: [facility] Address: [address] [place] [address] Performed By: #### 1 988-5, 27968-0, 12030-4, 06056-4 ####[facility] H[facility]ITALIA [id number] [place] [address] [place] Bilirubin [Mass/Vol] 0.2 mg/dL Normal 0.2-1.3 [facility] [facility] Comment on above: Order Comment: Speci men Type: BLOOD SPECIMENOrdering Facility: [facility] Address: [address] [place] [address] Performed By: #### 1 988-5, 58589-7, 48332-5, ####[facility]PITALIA [id number] [place] [address] [place] Bilirubin.conjugated [Mass/Vol] mg/dL Normal <0.2 [facility] Comment on above: Order Comment: Speci men Type: BLOOD SPECIMENOrdering Facility: [facility] Address: [address] [place] [address] Performed By: #### 1 988-5, 18733-3, 30898-7, ####[facility] [id number] [place] [address] [place] Protein [Mass/Vol] 5.5 g/dL Low 6.3-8.0 [facility] Comment on above: Order Comment: Speci men Type: BLOOD SPECIMENOrdering Facility: [facility] Address: [address] [place] [address] Performed By: #### 1 988-5, 14588-2, 58983-3, ####[facility] [id number] [place] [address] [place] Magnesium SerPl-mCncon 11-24 Magnesium [Mass/Vol] 2.0 mg/dL Normal 1.7-2.3 [facility] Comment on above: Order Comment: Speci men Type: BLOOD SPECIMENOrdering Facility: [facility] Address: [address] [place] [address] Performed By: #### 1 988-5, 63789-8, 97819-3, 96905-4 ####[facility] LABORATORYCLIA [id number] [place] [address] [facility] [place] NUTRITIONon 11-25-2023 NUTRITION HNO ID: [id number] Author: PATY XIONG RD Service: Nutrition Therapy Author Type: Registered Dietitian Type: Nutrition Filed: 11/25/2023 14:58 Note Text: NUTRITION THERAPY PROGRESS NOTE SERVICE DATE: 11/25/2023 SERVICE TIME: 1155 Nutrition Assessment: Recommended Malnutrition Diagnosis: Moderate Protein-Calorie Malnutrition (11/22/23 0915 : Paty Xiong RD) Estimated kilocalorie needs: 7088-4939 Calorie Calculation Method: (23-28 kcals/kg) Estimated protein [...] days ago while r/o UGIB; Per Hannah ASIF, plan to start TFing and no longer [...] Product (26 years and up) OSMOLITE 1.2 [place] Approved Secondary TF Product (Do Not Change) [...] November 25, 2023 TIME: 2:55 PM Normal [facility] Phosphate SerPl-mCncon 11-24 Phosphate [Mass/Vol] 3.4 mg/dL Normal 2.7-4.8 [facility] Comment on above: Order Comment: Speci men Type: BLOOD SPECIMENOrdering Facility: [facility] Address: [address] [place] [address] Performed By: #### 2 777-1 ####[facility] LABORATORYCLIA [id number] [place] [address] [place] ALLIED HEALTHon 11-24-2023 ALLIED HEALTH HNO ID: [id number] Author: BERENICE TREJO RT(R) Service: ? Author Type: Technologist Type: [...] PATIENT PRESENTS WITH AN IMPLANTABLE OR ATTACHED HOT DIE PICKER: No RADIOLOGY DEPARTMENT: MR; Exam(s) Completed: Head: Routine Brain PERIPHERAL IV DATA: Not applicable SIGNED BY: Penelope Aj, RT(R)(MR) Berenice Trejo RT(R) November 24, 2023 6:38 PM Normal [facility] Albumin SerPl-mCncon 024 Albumin [Mass/Vol] 2.8 g/dL Low 3.9-4.9 [facility] Comment on above: Order Comment: Speci men Type: BLOOD SPECIMENOrdering Facility: [facility] Address: [address] [place] [address] Performed By: #### 2 4321-2, 1751-03, , 2776-09 ####[facility] LABORATORYCLIA [id number] [place] [address] [place] Basic metabolic 2000 panelon 11-24-2023 Anion gap [Moles/Vol] 9 mmol/L Normal -18 [facility] Comment on above: Order Comment: Speci men Type: BLOOD SPECIMENOrdering Facility: [facility] Address: [address] [place] [address] Performed By: #### 2 4321-2, 1751-03, , 2776-09 ####[facility] LABORATORYCLIA [id number] [place] [address] [place] Calcium [Mass/Vol] 8.7 mg/dL Normal 8.5-10.2 [facility] Comment on above: Order Comment: Speci men Type: BLOOD SPECIMENOrdering Facility: [facility] Address: [address] [place], [place] [address] Performed By: #### 2 4321-2, 1751-03, , 2776-09 ####[facility]ITALIA [id number] [place] [address] [place] Chloride [Moles/Vol] 105 mmol/L Normal 97-105 [facility] Comment on above: Order Comment: Speci men Type: BLOOD SPECIMENOrdering Facility: [facility] Address: [address] [place] [address] Performed By: #### 2 4321-2, 1751-03, , 2776-09 ####[facility]IA [id number] [place] [address] [place] CO2 [Moles/Vol] 26 mmol/L Normal 22-30 [facility] Comment on above: Order Comment: Speci men Type: BLOOD SPECIMENOrdering Facility: [facility] Address: [address] [place] [address] Performed By: #### 2 4321-2, 1751-03, , 2776-09 ####[facility] [id number] [place] [id number] [place] Creatinine [Mass/Vol] 0.46 mg/dL Low 0.73-1.22 [facility] Comment on above: Order Comment: Speci men Type: BLOOD SPECIMENOrdering Facility: [facility] Address: [address] [place] [address] Performed By: #### 2 4321-2, 1751-03, , 2776-09 ####[facility] [id number] [place] [address] [place] Creatinine and Glomerular filtration rate.predicted panel (S/P/Bld) 136 mL/min/1.73m??? Normal >=60 [facility] Comment on above: Order Comment: Speci men Type: BLOOD SPECIMENOrdering Facility: [facility] Address: [address] [place] [address] Result Comment: Rae mated Glomerular Filtration Rate [...] , 2776-09 ####[facility] LABORATORYCLIA [id number] [place] [address] [place] Glucose [Mass/Vol] 102 mg/dL High 74-99 [facility] Comment on above: Order Comment: Darwin schwarz Type: BLOOD SPECIMENOrdering Facility: [facility] Address: [address] [place] [address] Result Comment: The [place] Diabetes Association (ADA) provides guidance for cutoff [...] Standards of Medical Care in Diabetes 2016, [place] [employer]. Diabetes Care. 2016.39(Suppl 1). Performed By: #### 2 4321-2, 1751-03, , 2776-09 ####[facility] LABORATORYCLIA [id number] [place] [address] [place] Potassium [Moles/Vol] 3.9 mmol/L Normal 3.7-5.1 [facility] Comment on above: Order Comment: Darwin schwarz Type: BLOOD SPECIMENOrdering Facility: [facility] Address: [address] [place] [address] Performed By: #### 2 4321-2, 1751-03, , 2776-09 ####[facility] LABORATORYCLIA [id number] [place] [address] [place] Sodium [Moles/Vol] 140 mmol/L Normal 136-144 [facility] Comment on above: Order Comment: Speci men Type: BLOOD SPECIMENOrdering Facility: [facility] Address: [address] [place] [address] Performed By: #### 2 4321-2, 1751-03, , 2776-09 ####[facility] LABORATORYCLIA [id number] [place] [address] [place] Urea nitrogen [Mass/Vol] 11 mg/dL Normal 9-24 [facility] Comment on above: Order Comment: Speci men Type: BLOOD SPECIMENOrdering Facility: [facility] Address: [address] [place] [address] Performed By: #### 2 4321-2, 1751-03, , 2776-09 ####[facility] LABORATORYCLIA [id number] [place] [address] [place] CBC panel Auto (Bld)on 11-23 Erythrocyte distribution width (RBC) [Ratio] 17.1 % High 11.5-15.0 [facility] Comment on above: Order Comment: Speci men Type: BLOOD SPECIMENOrdering Facility: [facility] Address: [address] [place] [address] Performed By: #### 5 8410-2 ####[facility]IA [id number] [place] [address] [place] Hematocrit (Bld) [Volume fraction] 31.1 % Low 39.0-51.0 [facility] Comment on above: Order Comment: Speci men Type: BLOOD SPECIMENOrdering Facility: [facility] Address: [address] [place] [address] Performed By: #### 5 8410-2 ####[facility]IA [id number] [place] [address] [place] Hemoglobin (Bld) [Mass/Vol] 9.1 g/dL Low 13.0-17.0 [facility] Comment on above: Order Comment: Speci men Type: BLOOD SPECIMENOrdering Facility: [facility] Address: [address] [place] [address] Performed By: #### 5 8410-2 ####[facility] [id number] [place] [id number] [place] MCH (RBC) [Entitic mass] 25.1 pg Low 26.0-34.0 [facility] Comment on above: Order Comment: Speci men Type: BLOOD SPECIMENOrdering Facility: [facility] Address: [address] [place] [address] Performed By: #### 5 8410-2 ####[facility] [id number] [place] [address] [place] MCHC (RBC) [Mass/Vol] 29.3 g/dL Low 30.5-36.0 [facility] Comment on above: Order Comment: Speci men Type: BLOOD SPECIMENOrdering Facility: [facility] Address: [address] [place] [address] Performed By: #### 5 8410-2 ####[facility] [id number] [place] [address] [place] MCV (RBC) [Entitic vol] 85.7 fL Normal 80.0-100.0 [facility] Comment on above: Order Comment: Speci men Type: BLOOD SPECIMENOrdering Facility: [facility] Address: [address] [place] [address] Performed By: #### 5 8410-2 ####[facility] [id number] [address] [place] Nucleated RBC (Bld) [#/Vol] 10*3/uL Normal <0.01 [facility] Comment on above: Order Comment: Speci men Type: BLOOD SPECIMENOrdering Facility: [facility] Address: [address] [place] [address] Performed By: #### 5 8410-2 ####[facility] [id number] [place] [id number] [place] Platelet mean volume (Bld) [Entitic vol] 11.1 fL Normal 9.0-12.7 [facility] Comment on above: Order Comment: Speci men Type: BLOOD SPECIMENOrdering Facility: [facility] Address: [address] [place] [address] Performed By: #### 5 8410-2 ####[facility] LABORATORYCLIA [id number] [facility] [place] [address] [place] Platelets (Bld) [#/Vol] 347 10*3/uL Normal 150-400 [facility] Comment on above: Order Comment: Speci men Type: BLOOD SPECIMENOrdering Facility: [facility] Address: [address] [place] [address] Performed By: #### 5 8410-2 ####[facility]IA [id number] [place] [address] [place] RBC (Bld) [#/Vol] 3.63 10*6/uL Low 4.20-6.00 [facility] Comment on above: Order Comment: Speci men Type: BLOOD SPECIMENOrdering Facility: [facility] Address: [address] [place] [address] Performed By: #### 5 8410-2 ####[facility]ITALIA [id number] [place] [id number] [facility] [place] WBC (Bld) [#/Vol] 12.34 10*3/uL High 3.70-11.00 [facility] Comment on above: Order Comment: Speci men Type: BLOOD SPECIMENOrdering Facility: [facility] Address: [address] [place] [address] Performed By: #### 5 8410-2 ####[facility] LABORATORYIA [id number] [place] [id number] [facility] CONSULTon 11-24-2023 CONSULT HNO ID: [id number] Author: CAROLINA VILLALBA MD, PhD Service: Neurology [...] pm [place]: 1 pm to 5 pm [facility]: 10 am to 12 pm During weekends, coverage is only during rounding hours. [place]: 1 pm to 5 pm [place]: 8 am to 12 pm [place]: 8 am to 12 pm [place]: 10 am to 12 pm [place]: 1 pm to 5 pm [place]: 1 pm to 5 pm [facility]: 8 am to to 12 pm Statutory holidays do not have teleneuro coverage. [place]: During Off hours for Teleneurology please page (not call) [place] [facility] [address] concrete vibrator operator for concerns. [place]: During Off hours for Teleneurology please page (not call) [place] [facility] [address] concrete vibrator operator for concerns. [facility]: There is no off-hours coverage for Teleneurology. [...] psychiatry RN Copy/pasted from his admission to [facility] 06/09/23: The patient initially presented to [facility] due to left-sided weakness, slurred speech, diplopia. While there, he was noted to have tonic posturing of his extremities and was given a total of 6 mg of Ativan after suspecting seizures. Due to his ongoing posturing he was loaded with levetiracetam, intubated and sedated, and transferred to [facility] for further evaluation management. His initial CT head without contrast was negative. 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 Brain MRI [...] tube placement, respirator (more content not included)... Normal [facility] CONSULT PROGon 11-24-2023 CONSULT PROG HNO ID: [id number] Author: JOSE ROE MD Service: Infectious Disease [...] blood cx NGTD 08/13/2023: Respiratory culture from Maintenance Assistant with ESBL Klebsiella (obtained from care everywhere) [...] --- Sputum cultures are pending with mixed cruz and gram-positive diplococci but Staph aureus MRSA swab was negative --- Has a prior history of ESBL Klebsiella from sputum cultures in [place] --- Patient is currently stable on his baseline vent settings, white count is trending down, fevers also down --- CT of the chest demonstrating consolidations in the bilateral lungs, with some evidence of mucous plugging --- Given his reported vomiting episodes, most likely has developed aspiration pneumonia --- He is currently on IV meropenem with Acinetobacter and (more content not included)... Normal [facility] MRI BRAIN WO IVCONon 2 024 MRI BRAIN WO IVCON * * *Final Report* * * DATE OF EXAM: Nov 24 2023 6:29PM [facility] 0294 - MRI BRAIN WO IVCON / [...] changes C3-4 and inferiorly extend off the igqdk-yy-ialw of the brain examination. No significant marrow [...] and inferiorly, only partially included in the lhfhr-az-btwi of the examination. Lens Assistant: BENOIT Transcribe Date/Time: Nov 24 2023 6:30P Dictated by : SERGEI JOSEPH MD This examination was interpreted and the report reviewed and electronically signed by: SERGEI JOSEPH MD on Nov 24 2023 6:34PM EST [id number] Normal [facility] Magnesium SerPl-mCncon 11-23 Magnesium [Mass/Vol] 1.9 mg/dL Normal 1.7-2.3 [facility] Comment on above: Order Comment: Speci men Type: BLOOD SPECIMENOrdering Facility: [facility] Address: [address] [place] [address] Performed By: #### 2 4321-2, 1751-7, 01053-5, 2777-1 ####[facility] LABORATORYCLIA [id number] [place] [address] [facility] NUTRITIONon 11-24-2023 NUTRITION HNO ID: [id number] Author: ALDA WONG RD Service: Nutrition Therapy Author Type: Registered Dietitian Type: Nutrition Filed: 11/24/2023 11:02 Note Text: PARENTERAL NUTRITION PROGRESS NOTE SERVICE DATE: 11/24/2023 SERVICE TIME: 1020 RD offsite for weekend coverage, assessment completed remotely Nutrition Assessment: Recommended Malnutrition Diagnosis: Moderate Protein-Calorie Malnutrition (11/22/23 0915 : Paty Xiong, ABHINAV) In the context of: Acute Illness or [...] November 24, 2023 TIME: 10:24 AM Normal [facility] PT EDon 11-24-2023 PT ED HNO ID: [id number] Author: JENNIFER EVANS RN Service: PICC Team [...] [facility] Normal [facility] Phosphate SerPl-mCncon 11-23 Phosphate [Mass/Vol] 3.8 mg/dL Normal 2.7-4.8 [facility] Comment on above: Order Comment: Speci men Type: BLOOD SPECIMENOrdering Facility: [facility] Address: [address] [place] [address] Performed By: #### 2 4321-2, 1751-7, 22133-6, 2777-1 ####[facility] LABORATORYCLIA [id number] [place] [address] [place] Albumin SerPl-mCncon 024 Albumin [Mass/Vol] 2.8 g/dL Low 3.9-4.9 [facility] Comment on above: Order Comment: Speci men Type: BLOOD SPECIMENOrdering Facility: [facility] Address: [address] [place] [address] Performed By: #### 1 751-7, 2777-1, , 03515-7 ####[facility] LABORATORYCLIA [id number] [place] [address] [place] Basic metabolic 2000 panelon 11-23-2023 Anion gap [Moles/Vol] 9 mmol/L Normal 9-18 [facility] Comment on above: Order Comment: Speci men Type: BLOOD SPECIMENOrdering Facility: [facility] Address: [address] [place] [address] Performed By: #### 1 751-7, 2777-, , 92709-7 ####[facility]ITALIA [id number] [place] [address] [place] Calcium [Mass/Vol] 8.8 mg/dL Normal 8.5-10.2 [facility] Comment on above: Order Comment: Speci men Type: BLOOD SPECIMENOrdering Facility: [facility] Address: [address] [place] [address] Performed By: #### 1 751-7, 2777-1, , 90411-4 ####[facility]ITALIA [id number] [place] [address] [place] Chloride [Moles/Vol] 107 mmol/L High 97-105 [facility] Comment on above: Order Comment: Speci men Type: BLOOD SPECIMENOrdering Facility: [facility] Address: [address] [place] [address] Performed By: #### 1 751-7, 2777-1, , 00306-2 ####[facility] LABORATORYIA [id number] [place] [address] [place] CO2 [Moles/Vol] 30 mmol/L Normal 22-30 [facility] Comment on above: Order Comment: Darwin schwarz Type: BLOOD SPECIMENOrdering Facility: [facility] Address: [address] [place] [address] Performed By: #### 1 751-7, 2777-1, 17210-5, 22281-6 ####[facility] LABORATORYCLIA [id number] [place] [address] [place] Creatinine [Mass/Vol] 0.58 mg/dL Low 0.73-1.22 [facility] Comment on above: Order Comment: Gabrielai karishma Type: BLOOD SPECIMENOrdering Facility: [facility] Address: [address] [place] [address] Performed By: #### 1 751-7, 2777-, , 97236-0 ####[facility] LABORATORYCLIA [id number] [address] [place] Creatinine and Glomerular filtration rate.predicted panel (S/P/Bld) 127 mL/min/1.73m??? Normal >=60 [facility] Comment on above: Order Comment: Darwin schwarz Type: BLOOD SPECIMENOrdering Facility: [facility] Address: [address] [place] [address] Result Comment: Rae mated Glomerular Filtration Rate [...] GFR. Performed By: #### 1 751-7, 2777-1, , 87878-5 ####[facility] LABORATORYCLIA [id number] [place] [address] [place] Glucose [Mass/Vol] 123 mg/dL High 74-99 [facility] Comment on above: Order Comment: Darwin schwarz Type: BLOOD SPECIMENOrdering Facility: [facility] Address: [address] [place] [id number] Result Comment: The [place] Diabetes Association (ADA) provides guidance for cutoff [...] Standards of Medical Care in Diabetes 2016, [place] [employer]. Diabetes Care. 2016.39(Suppl 1). Performed By: #### 1 751-7, 2777-, , ####[facility] LABORATORYCLIA [id number] [place] [address] [place] Potassium [Moles/Vol] 3.3 mmol/L Low 3.7-5.1 [facility] Comment on above: Order Comment: Speci men Type: BLOOD SPECIMENOrdering Facility: [facility] Address: [address] [place] [address] Performed By: #### 1 751-7, 2777-, , ####[facility] LABORATORYCLIA [id number] [place] [address] [place] Sodium [Moles/Vol] 146 mmol/L High 136-144 [facility] Comment on above: Order Comment: Speci men Type: BLOOD SPECIMENOrdering Facility: [facility] Address: [address] [place] [id number] Performed By: #### 1 751-7, 2777-, , ####[facility] LABORATORYCLIA [id number] [place] [address] [place] Urea nitrogen [Mass/Vol] 14 mg/dL Normal 9-24 [facility] Comment on above: Order Comment: Speci men Type: BLOOD SPECIMENOrdering Facility: [facility] Address: [address] [place] [address] Performed By: #### 1 751-7, 2777-1, 94132-3, 30183-0 ####[facility] LABORATORYCLIA [id number] [place] [address] [place] CBC panel Auto (Bld)on 11-22 Erythrocyte distribution width (RBC) [Ratio] 16.7 % High 11.5-15.0 [facility] Comment on above: Order Comment: Speci men Type: SWAB OF INTERNAL NOSE [facility] Address: [address] [place] [address] Performed By: #### S APCR #### [facility] CLIA [id number] [address] [place] [address] [place] Hematocrit (Bld) [Volume fraction] 28.3 % Low 39.0-51.0 [facility] Comment on above: Order Comment: Speci men Type: SWAB OF INTERNAL NOSE [facility] Address: [address] [place] [address] Performed By: #### S APCR #### [facility] CLIA [id number] [address] [place] [address] [place] Hemoglobin (Bld) [Mass/Vol] 8.2 g/dL Low 13.0-17.0 [facility] Comment on above: Order Comment: Speci men Type: SWAB OF INTERNAL NOSE [facility] Address: [address] [place] [address] Performed By: #### S APCR #### [facility] CLIA [id number] [address] [place] [address] [place] MCH (RBC) [Entitic mass] 25.2 pg Low 26.0-34.0 [facility] Comment on above: Order Comment: Speci men Type: SWAB OF INTERNAL NOSE [facility] Address: [address] [place] [address] Performed By: #### S APCR #### [facility] CLIA [id number] [address] [place] [address] [place] MCHC (RBC) [Mass/Vol] 29.0 g/dL Low 30.5-36.0 [facility] Comment on above: Order Comment: Speci men Type: SWAB OF INTERNAL NOSE [facility] Address: [address] [place] [address] Performed By: #### S APCR #### [facility] CLIA [id number] [address] [place] [address] [place] MCV (RBC) [Entitic vol] 86.8 fL Normal 80.0-100.0 [facility] Comment on above: Order Comment: Speci men Type: SWAB OF INTERNAL NOSE [facility] Address: [address] [place] [address] Performed By: #### S APCR #### [facility] CLIA [id number] [address] [place] [address] [place] Nucleated RBC (Bld) [#/Vol] 10*3/uL Normal <0.01 [facility] Comment on above: Order Comment: Speci men Type: SWAB OF INTERNAL NOSE [facility] Address: [address] [place] [address] Performed By: #### S APCR #### [facility] CLIA [id number] [address] [place] [address] [place] Platelet mean volume (Bld) [Entitic vol] 10.9 fL Normal 9.0-12.7 [facility] Comment on above: Order Comment: Speci men Type: SWAB OF INTERNAL NOSE [facility] Address: [address] [place] [address] Performed By: #### S APCR #### [facility] CLIA [id number] [address] [place] [address] [place] Platelets (Bld) [#/Vol] 356 10*3/uL Normal 150-400 [facility] Comment on above: Order Comment: Speci men Type: SWAB OF INTERNAL NOSE [facility] Address: [address] [place] [address] Performed By: #### S APCR #### [facility] [facility] CLIA [id number] [address] [place] [address] [place] RBC (Bld) [#/Vol] 3.26 10*6/uL Low 4.20-6.00 [facility] Comment on above: Order Comment: Speci men Type: SWAB OF INTERNAL NOSE Ordering Facility: [facility] Address: [address] [place] [address] Performed By: #### S APCR #### [facility] CLIA [id number] [address] [place] [address] [place] WBC (Bld) [#/Vol] 12.18 10*3/uL High 3.70-11.00 [facility] Comment on above: Order Comment: Speci men Type: SWAB OF INTERNAL NOSE Ordering Facility: [facility] Address: [address] [place] [address] Performed By: #### S APCR #### [facility] CLIA [id number] [address] [place] [address] [place] CONSULT PROGon 11-23-2023 CONSULT PROG HNO ID: [id number] Author: JOSE ROE MD Service: Infectious Disease [...] blood cx NGTD 08/13/2023: Respiratory culture from Maintenance Assistant with ESBL Klebsiella (obtained from care everywhere) [...] --- Sputum cultures are pending with mixed cruz and gram-positive diplococci but Staph aureus MRSA swab was negative --- Has a prior history of ESBL Klebsiella from sputum cultures in [place] --- Patient is currently stable on his [...] tailor antibiotics accordingly spoke with brother at [facility] I spent a total of 35 minutes on the date of the service which included preparing to see the patient, [id number] patient care, completing clinical documentation, obtaining and/or reviewing separately obtained (more content not included)... Normal [facility] Fibrinogen PPP-mCncon 2023 Fibrinogen Coag (PPP) [Mass/Vol] 719 mg/dL High 200-400 [facility] Comment on above: Order Comment: Speci men Type: BLOOD SPECIMEN Ordering Facility: [facility] Address: [address] [place] [address] Performed By: #### 3 3959-8, 40506-1, 65334-7 #### [facility] CLIA [id number] [address] [place] [address] [facility] [place] Magnesium SerPl-mCncon 11-22 Magnesium [Mass/Vol] 2.0 mg/dL Normal 1.7-2.3 [facility] Comment on above: Order Comment: Speci men Type: BLOOD SPECIMENOrdering Facility: [facility] Address: [facility] [place] [address] Performed By: #### 1 751-7, 2777-1, 57655-6, 87413-6 ####[facility] LABORATORYCLIA [id number] [place] [address] [facility] NUTRITIONon 11-23-2023 NUTRITION HNO ID: [id number] Author: ALDA WONG RD Service: Nutrition Therapy [...] SIGNATURE: Alda Wong RD PATIENT NAME: Lolis Quinnoes III DATE: November 23, 2023 TIME: 2:23 PM Normal [facility] PT panel Coag (PPP)on 2023 INR Coag (PPP) [Relative time] 1.2 {INR} Normal 0.9-1.3 [facility] Comment on above: Order Comment: Darwin schwarz Type: BLOOD SPECIMEN Ordering Facility: [facility] Address: [address] [place] [address] Result Comment: Edilma min K Antagonist (VKA) Therapeutic Range: INR 2 to 3 (Target INR of 2.5) Note: For patients treated with VKA drugs, such as warfarin, the [place] [employer] 2012 Guideline recommends [...] to 3.5 (target INR of 3). Holger GH, et al. Chest 2012, 141:7S-47S Oh RA, et al. [facility] 2017, 70: 252-289 Performed By: #### 3 3959-8, 93390-1, 33183-6 #### [facility] CLIA [id number] [facility] [place], [place] [address] [place] [address] [place] PT Coag (PPP) [Time] 12.4 s Normal 9.7-13.0 [facility] Comment on above: Order Comment: Darwin schwarz Type: BLOOD SPECIMEN Ordering Facility: [facility] Address: [address] [place] [id number] Performed By: #### 3 3959-8, 31552-1, 36256-2 #### [facility] CLIA [id number] [address] [place] [address] [place] Phosphate SerPl-mCncon 11-22 Phosphate [Mass/Vol] 2.8 mg/dL Normal 2.7-4.8 [facility] Comment on above: Order Comment: Speci men Type: BLOOD SPECIMENOrdering Facility: [facility] Address: [address] [place] [address] Performed By: #### 1 751-7, 2777-1, 18475-5, 84854-0 ####[facility] LABORATORYCLIA [id number] [place] [id number] [place] aPTT PPPon 11-23-2023 aPTT Coag (PPP) [Time] 33.7 s High 23.0-32.4 [facility] Comment on above: Order Comment: Speci men Type: BLOOD SPECIMEN Ordering Facility: [facility] Address: [address] [place] [address] Performed By: #### 3 3959-8, 80937-2, 49455-8 #### [facility] [place] [id number] [address] [place] [address] [place] Bacteria Spec Resp Culton Bacteria identified Respiratory culture Nom (Unsp spec) ORGANISM ID: 1 Many Acinetobacter baumannii complex ORGANISM ID: 2 Few Klebsiella pneumoniae GRAM STAIN: Moderate Gram negative diplococci Rare Mixed oral cruz Many Polymorphonuclear leukocytes Abnormal [facility] Comment on above: Performed By: #### 3 2355-0 ####[facility] [id number] [facility] [id number] [address] [place] Basic metabolic 2000 panelon 11-22-2023 Anion gap [Moles/Vol] 9 mmol/L Normal 9-18 [facility] Comment on above: Order Comment: Speci men Type: BLOOD SPECIMEN Ordering Facility: [facility] Address: [address] [place] [address] Performed By: #### 3 3959-8, 32866-8, 73284-8 #### [facility] CLIA [id number] [address] [place] [address] [place] Calcium [Mass/Vol] 9.1 mg/dL Normal 8.5-10.2 [facility] Comment on above: Order Comment: Speci men Type: BLOOD SPECIMEN Ordering Facility: [facility] Address: [address] [place] [address] Performed By: #### 3 3959-8, 77103-4, 38572-4 #### [facility] CLIA [id number] [address] [place] [address] [place] Chloride [Moles/Vol] 106 mmol/L High 97-105 [facility] Comment on above: Order Comment: Speci men Type: BLOOD SPECIMEN Ordering Facility: [facility] Address: [address] [place] [address] Performed By: #### 3 3959-8, 51895-8, 22171-3 #### [facility] CLIA [id number] [address] [place] [address] [place] CO2 [Moles/Vol] 32 mmol/L High 22-30 [facility] Comment on above: Order Comment: Speci men Type: BLOOD SPECIMEN Ordering Facility: [facility] Address: [address] [place] [address] Performed By: #### 3 3959-8, 62217-7, 96841-1 #### [facility] CLIA [id number] [address] [place] [address] [place] Creatinine [Mass/Vol] 0.55 mg/dL Low 0.73-1.22 [facility] Comment on above: Order Comment: Speci men Type: BLOOD SPECIMEN Ordering Facility: [facility] Address: [address] [place] [address] Performed By: #### 3 3959-8, 05273-9, 96593-1 #### [facility] CLIA [id number] [address] [place] [address] [place] Creatinine and Glomerular filtration rate.predicted panel (S/P/Bld) 129 mL/min/1.73m??? Normal >=60 [facility] Comment on above: Order Comment: Darwin schwarz Type: BLOOD SPECIMEN Ordering Facility: [facility] Address: [address] [place] [address] Result Comment: Rae mated Glomerular Filtration Rate [...] actual GFR. Performed By: #### 3 3959-8, 91251-9, 47209-7 #### [facility] CLIA [id number] [address] [place] [address] [place] Glucose [Mass/Vol] 98 mg/dL Normal 74-99 [facility] Comment on above: Order Comment: Darwin schwarz Type: BLOOD SPECIMEN Ordering Facility: [facility] Address: [address] [place] [address] Result Comment: The [place] [employer] (ADA) provides guidance for cutoff [...] Standards of Medical Care in Diabetes 2016, [place] [employer]. Diabetes Care. 2016.39(Suppl 1). Performed By: #### 3 3959-8, 79672-0, 70724-3 #### [facility] CLIA [id number] [address] [place] [address] [place] Potassium [Moles/Vol] 3.6 mmol/L Low 3.7-5.1 [facility] Comment on above: Order Comment: Speci men Type: BLOOD SPECIMEN Ordering Facility: [facility] Address: [address] [place], [place] [address] Performed By: #### 3 3959-8, 83049-3, 99350-3 #### [facility] CLIA [id number] [address] [place] [address] [place] Sodium [Moles/Vol] 147 mmol/L High 136-144 [facility] Comment on above: Order Comment: Speci men Type: BLOOD SPECIMEN Ordering Facility: [facility] Address: [address] [place] [address] Performed By: #### 3 3959-8, 94288-0, 31928-8 #### [facility] CLIA [id number] [address] [place], [place] [address] [place] [address] [place] Urea nitrogen [Mass/Vol] 16 mg/dL Normal 9-24 [facility] Comment on above: Order Comment: Speci men Type: BLOOD SPECIMEN Ordering Facility: [facility] Address: [address] [place], [place] [address] Performed By: #### 3 3959-8, 13296-2, 90194-7 #### [facility] CLIA [id number] [address] [place] [address] [facility] [place] CASE MANAGEMon 11-22-2023 CASE MANAGEM HNO ID: [id number] Author: MONTSE FONG RN Service: ? 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 History of Dvt (Deep Vein Thrombosis) Itzel (Acute Kidney Injury) (Hcc) Tachycardia Coffee Ground Emesis Incontinence of Feces Attendees Present at Rounds: Plastic Surgery Coordinator: Patient: Lolis Quinones III Pharmacy: Provider: Respiratory Therapy: Staff Nurse: Needs Discussed on Rounds: Discharge Needs Equipment: Respiratory Equipment Oxygen and vent / trach Mobility Psycho/Social Plan of Care Anticipated Discharge Disposition: Jail Facility - return Last Vitals: BP 103/59 [...] November 22, 2023 TIME: 10:44 AM CSN: [id number] [facility] M[facility] ID: [id number] Author: MONTSE FONG RN Service: ? Author Type: Registered Nurse Type: Care Mgt Initial Assessment Filed: 11/22/2023 15:36 Note Text: CARE MANAGEMENT: ASSESSMENT AND DISCHARGE PLAN SERVICE DATE: November 22, 2023 SERVICE TIME: 3:28 pm PCP: No primary care provider on file. 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 Insurance Provider: MMPatricia DAWSON PPO Discharge Planning requested by: Per Department Practice Potential Transition Plans Other: See Comment (return to SNF) Advance Directives Current Advance Directive: Other Document: See Comment (Legal guardianship) In Chart: Yes Up To Date and Valid: Yes Current Living Arrangements and Support Lives with: Alone Type of Residence: Jail Facility Does the patient have to climb stairs at home?: No Support: Family members How do you manage to accomplish the following: Dependent: Transportation to appointments/community;B athe/Shower;Dress;Meals/ Meal Prep;Going to the bathroom;Medication Management Current Services/Equipment Current Post-Acute Service(s): DME Current DME Type: Oxygen (other equipment per facility) Discharge Planning Patient Goal(s): (unable to answer) [place] of Choice Explained: [place] of [place] Given: Yes Level of Care Discussed: Jail Facility Are you interested in bedside delivery [...] very supportive. Wants patient to return to [facility] where he was prior to admission, referral made and they accepted. Patient is O2 dependent - has trach / vent. Infectious disease on consult. Wound care on consult for sacral decub. Has chronic iverson, trach and PEG. CM Department will continue to follow. SIGNATURE: Montse Fong RN PATIENT NAME: Lolis Quinones III DATE: November 22, 2023 TIME: 3:28 PM CONTACT #: [phone] Normal [facility] CBC panel Auto (Bld)on 11-21 Erythrocyte distribution width (RBC) [Ratio] 17.2 % High 11.5-15.0 [facility] Comment on above: Order Comment: Speci men Type: BLOOD SPECIMENOrdering Facility: [facility] Address: [address] [place] [address] Performed By: #### 5 8410-2 ####[facility]ITALIA [id number] [place] [address] [place] Hematocrit (Bld) [Volume fraction] 22.9 % Low 39.0-51.0 [facility] Comment on above: Order Comment: Speci men Type: BLOOD SPECIMENOrdering Facility: [facility] Address: [address] [place] [address] Performed By: #### 5 8410-2 ####[facility]ITALIA [id number] [place] [address] [place] Hemoglobin (Bld) [Mass/Vol] 6.8 g/dL Low 13.0-17.0 [facility] Comment on above: Order Comment: Speci men Type: BLOOD SPECIMENOrdering Facility: [facility] Address: [address] [place] [address] Performed By: #### 5 8410-2 ####[facility]ITALIA [id number] [place] [address] [place] MCH (RBC) [Entitic mass] 24.8 pg Low 26.0-34.0 [facility] Comment on above: Order Comment: Speci men Type: BLOOD SPECIMENOrdering Facility: [facility] Address: [address] [place] [address] Performed By: #### 5 8410-2 ####[facility]ORATORYIA [id number] [place] [address] [place] MCHC (RBC) [Mass/Vol] 29.7 g/dL Low 30.5-36.0 [facility] Comment on above: Order Comment: Speci men Type: BLOOD SPECIMENOrdering Facility: [facility] Address: [address] [place] [address] Performed By: #### 5 8410-2 ####[facility] LABORATORYIA [id number] [place] [address] [place] MCV (RBC) [Entitic vol] 83.6 fL Normal 80.0-100.0 [facility] Comment on above: Order Comment: Speci men Type: BLOOD SPECIMENOrdering Facility: [facility] Address: [address] [place] [address] Performed By: #### 5 8410-2 ####[facility]ORATORYCLIA [id number] [place] [address] [place] Nucleated RBC (Bld) [#/Vol] 10*3/uL Normal <0.01 [facility] Comment on above: Order Comment: Speci men Type: BLOOD SPECIMENOrdering Facility: [facility] Address: [address] [place] [address] Performed By: #### 5 8410-2 ####[facility] LABORATORYCLIA [id number] [place] [address] [place] Platelet mean volume (Bld) [Entitic vol] 11.1 fL Normal 9.0-12.7 [facility] Comment on above: Order Comment: Speci men Type: BLOOD SPECIMENOrdering Facility: [facility] Address: [address] [place] [address] Performed By: #### 5 8410-2 ####[facility] LABORATORYIA [id number] [address] [place] Platelets (Bld) [#/Vol] 319 10*3/uL Normal 150-400 [facility] Comment on above: Order Comment: Speci men Type: BLOOD SPECIMENOrdering Facility: [facility] Address: [address] [place] [address] Performed By: #### 5 8410-2 ####[facility] LABORATORYIA [id number] [place] [address] [place] RBC (Bld) [#/Vol] 2.74 10*6/uL Low 4.20-6.00 [facility] Comment on above: Order Comment: Speci men Type: BLOOD SPECIMENOrdering Facility: [facility] Address: [address] [place] [address] Performed By: #### 5 8410-2 ####[facility]OSPITALIA [id number] [place] [id number] [place] WBC (Bld) [#/Vol] 11.27 10*3/uL High 3.70-11.00 [facility] Comment on above: Order Comment: Speci men Type: BLOOD SPECIMENOrdering Facility: [facility] Address: [address] [place] [address] Performed By: #### 5 8410-2 ####[facility]ITALIA [id number] [address] [place] Erythrocyte distribution width (RBC) [Ratio] 17.2 % High 11.5-15.0 [facility] Comment on above: Order Comment: Speci men Type: BLOOD SPECIMENOrdering Facility: [facility] Address: [address] [place] [address] Performed By: #### 5 8410-2 ####[facility]ITALIA [id number] [address] [place] Hematocrit (Bld) [Volume fraction] 25.5 % Low 39.0-51.0 [facility] Comment on above: Order Comment: Speci men Type: BLOOD SPECIMENOrdering Facility: [facility] Address: [address] [place] [address] Performed By: #### 5 8410-2 ####[facility]ITALIA [id number] [address] [place] Hemoglobin (Bld) [Mass/Vol] 7.2 g/dL Low 13.0-17.0 [facility] Comment on above: Order Comment: Speci men Type: BLOOD SPECIMENOrdering Facility: [facility] Address: [address] [place] [address] Performed By: #### 5 8410-2 ####[facility]ITALIA [id number] [place] [id number] [place] MCH (RBC) [Entitic mass] 24.5 pg Low 26.0-34.0 [facility] Comment on above: Order Comment: Speci men Type: BLOOD SPECIMENOrdering Facility: [facility] Address: [address] [place] [address] Performed By: #### 5 8410-2 ####[facility] LABORATORYIA [id number] [place] [address] [place] MCHC (RBC) [Mass/Vol] 28.2 g/dL Low 30.5-36.0 [facility] Comment on above: Order Comment: Speci men Type: BLOOD SPECIMENOrdering Facility: [facility] Address: [address] [place] [address] Performed By: #### 5 8410-2 ####[facility] [id number] [place] [address] [place] MCV (RBC) [Entitic vol] 86.7 fL Normal 80.0-100.0 [facility] Comment on above: Order Comment: Speci men Type: BLOOD SPECIMENOrdering Facility: [facility] Address: [address] [place] [address] Performed By: #### 5 8410-2 ####[facility] [id number] [place] [address] [place] Nucleated RBC (Bld) [#/Vol] 10*3/uL Normal <0.01 [facility] Comment on above: Order Comment: Speci men Type: BLOOD SPECIMENOrdering Facility: [facility] Address: [address] [place] [address] Performed By: #### 5 8410-2 ####[facility] LABORATORYIA [id number] [address] [place] Platelet mean volume (Bld) [Entitic vol] 11.4 fL Normal 9.0-12.7 [facility] Comment on above: Order Comment: Speci men Type: BLOOD SPECIMENOrdering Facility: [facility] Address: [address] [place] [address] Performed By: #### 5 8410-2 ####[facility] LABORATORYCLIA [id number] [facility] [place] [address] [place] Platelets (Bld) [#/Vol] 350 10*3/uL Normal 150-400 [facility] Comment on above: Order Comment: Speci men Type: BLOOD SPECIMENOrdering Facility: [facility] Address: [address] [place] [address] Performed By: #### 5 8410-2 ####[facility] LABORATORYIA [id number] [place] [address] [place] RBC (Bld) [#/Vol] 2.94 10*6/uL Low 4.20-6.00 [facility] Comment on above: Order Comment: Speci men Type: BLOOD SPECIMENOrdering Facility: [facility] Address: [address] [place] [address] Performed By: #### 5 8410-2 ####[facility]ITALIA [id number] [facility] [address] [place] WBC (Bld) [#/Vol] 11.54 10*3/uL High 3.70-11.00 [facility] Comment on above: Order Comment: Speci men Type: BLOOD SPECIMENOrdering Facility: [facility] Address: [address] [place] [address] Performed By: #### 5 8410-2 ####[facility] LABORATORYIA [id number] [place] [id number] [place] Erythrocyte distribution width (RBC) [Ratio] 17.1 % High 11.5-15.0 [facility] Comment on above: Order Comment: Speci men Type: BLOOD SPECIMENOrdering Facility: [facility] Address: [address] [place] [address] Performed By: #### 5 8410-2 ####[facility] LABORATORYIA [id number] [place] [address] [facility] [place] Hematocrit (Bld) [Volume fraction] 28.0 % Low 39.0-51.0 [facility] Comment on above: Order Comment: Speci men Type: BLOOD SPECIMENOrdering Facility: [facility] Address: [address] [place] [address] Performed By: #### 5 8410-2 ####[facility] [id number] [place] [address] [place] Hemoglobin (Bld) [Mass/Vol] 7.9 g/dL Low 13.0-17.0 [facility] Comment on above: Order Comment: Speci men Type: BLOOD SPECIMENOrdering Facility: [facility] Address: [address] [place] [address] Performed By: #### 5 8410-2 ####[facility] [id number] [place] [address] [place] MCH (RBC) [Entitic mass] 24.5 pg Low 26.0-34.0 [facility] Comment on above: Order Comment: Speci men Type: BLOOD SPECIMENOrdering Facility: [facility] Address: [address] [place] [address] Performed By: #### 5 8410-2 ####[facility] [id number] [place] [address] [place] MCHC (RBC) [Mass/Vol] 28.2 g/dL Low 30.5-36.0 [facility] Comment on above: Order Comment: Speci men Type: BLOOD SPECIMENOrdering Facility: [facility] Address: [address] [place] [address] Performed By: #### 5 8410-2 ####[facility]ITALIA [id number] [place] [address] [place] MCV (RBC) [Entitic vol] 87.0 fL Normal 80.0-100.0 [facility] Comment on above: Order Comment: Speci men Type: BLOOD SPECIMENOrdering Facility: [facility] Address: [address] [place] [address] Performed By: #### 5 8410-2 ####[facility] LABORATORYIA [id number] [facility] [place] [address] [place] Nucleated RBC (Bld) [#/Vol] 10*3/uL Normal <0.01 [facility] Comment on above: Order Comment: Speci men Type: BLOOD SPECIMENOrdering Facility: [facility] Address: [address] [place] [address] Performed By: #### 5 8410-2 ####[facility] LABORATORYCLIA [id number] [place] [address] [place] Platelet mean volume (Bld) [Entitic vol] 11.4 fL Normal 9.0-12.7 [facility] Comment on above: Order Comment: Speci men Type: BLOOD SPECIMENOrdering Facility: [facility] Address: [address] [place] [address] Performed By: #### 5 8410-2 ####[facility] LABORATORYCLIA [id number] [place] [address] [place] Platelets (Bld) [#/Vol] 354 10*3/uL Normal 150-400 [facility] Comment on above: Order Comment: Speci men Type: BLOOD SPECIMENOrdering Facility: [facility] Address: [address] [place] [address] Performed By: #### 5 8410-2 ####[facility] LABORATORYCLIA [id number] [place] [address] [place] RBC (Bld) [#/Vol] 3.22 10*6/uL Low 4.20-6.00 [facility] Comment on above: Order Comment: Speci men Type: BLOOD SPECIMENOrdering Facility: [facility] Address: [address] [place] [address] Performed By: #### 5 8410-2 ####[facility] LABORATORYCLIA [id number] [place] [address] [place] WBC (Bld) [#/Vol] 14.07 10*3/uL High 3.70-11.00 [facility] Comment on above: Order Comment: Speci men Type: BLOOD SPECIMENOrdering Facility: [facility] Address: [address] [place] [address] [place] [address] Performed By: #### 5 8410-2 ####[facility] LABORATORYCLIA [id number] [place] [address] [place] CONSULTon 11-22-2023 CONSULT HNO ID: [id number] Author: TONIA TARANGO APRN.CNP Service: Gastroenterology Author [...] and cervical spinal stenosis who resides at [facility] in [facility] who presented to [place] ED for fever and increased SOB. According [...] had a percutaneous kwasi tube placed at [facility] which was removed 10/10/2022. 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 [facility] CONSULT HNO ID: [id number] Author: GENEVA SHARP MD Service: Infectious Disease [...] recurrent UTI who initially presented to the [place] ED for fever and increased shortness of breath. Patient was reportedly febrile to 102 and tachycardic in the 140s in the ED but was maintained on his baseline 4 to 5% FiO2 and 5 of PEEP. Patient reported to have white count of 21.7 at [place] with a lactate of 1.8. Per MICU HANDP he had a CT abdomen/pelvis and CT brain at [place] that was negative. Family had requested the patient be transferred to [facility] MICU but due to bed availability the patient was transferred to [facility] ICU for further management. On discussion with [...] Respiratory cultures so far with mixed oral cruz. Strep pneumo/Legionella urine antigen is pending. COVID-19, [...] 10 mg ORAL/FE (more content not included)... [facility] CONSULT PROGon 11-22-2023 CONSULT PROG HNO ID: [id number] Author: ADOLFO CORMIER RPh Service: Pharmacy Author [...] pharmacy if there are questions. Adolfo Cormier RPh [facility] CONSULT PROG HNO ID: [id number] Author: DEONNA ANAND APRN.GRID MOLDER Service: Wound/Ostomy Author Type: Nurse Practitioner Type: [...] 2023 and progressively worsened. Sacral debridement at [facility] in October. Mother reports imaging done at [facility] showed fluid collection in piliformis muscle. Patient [facility] to [facility]. Follows with wound nurse and FISCAL ACCOUNTANT. Patient has current orders from facility for [...] 0.0 11/21/2023 Abs Neut 19.91 11/21/2023 Abs [place] 0.66 11/21/2023 Abs Eosin 0.00 11/21/2023 Abs Baso 0.00 11/21/2023 Glucose (mg/dL) Date Value 11/22/2023 98 01/16/2005 (more content not included)... Normal [facility] CONSULT PROG HNO ID: [id number] Author: CAT MARTIN RPh Service: Pharmacy Author [...] have any questions, please contact Pharmacy at [phone]. Age: [age] year old Allergies: ALLERGIES Allergen [...] Value 11/22/2023 0431 <4.0 (L) Cat [facility] CT ABD/PEL WO IVCONon 2023 CT ABD/PEL WO IVCON * * *Final Report* * * DATE OF EXAM: Nov 22 2023 10:59AM [facility] 0531 - CT ABD/PEL WO IVCON / PROCEDURE REASON: Sepsis * * * * Physician Interpretation * * * * EXAMINATION: CT CHEST WO IVCON, CT ABD/PEL WO IVCON CLINICAL HISTORY: Aspiration (accession [id number]), Sepsis (accession [id number]) TECHNIQUE: CT of the chest from the [...] left lateral listhesis of L2 over L3. Patient Care Nursing Assistant (topogram) images: No additional findings. IMPRESSION: 1. Consolidation and airways disease throughout the right lower lobe and in the posterior aspects of the remaining right lung. Left lower lung consolidation with a small left pleural effusion. Bilateral subsegmental airway mucus plugging. Findings are concerning for pneumonia or other pneumonitis such as aspiration. 2. Redemonstration of a sacral dec (more content not included)... Normal [facility] CT CHEST WO IVCONon 11-22-19 CT CHEST WO IVCON * * *Final Report* * * DATE OF EXAM: Nov 22 2023 10:59AM [facility] 0541 - CT CHEST WO IVCON / PROCEDURE REASON: Aspiration * * * * Physician Interpretation * * * * EXAMINATION: CT CHEST WO IVCON, CT ABD/PEL WO IVCON CLINICAL HISTORY: Aspiration (accession [id number]), Sepsis (accession [id number]) TECHNIQUE: CT of the chest from the [...] left lateral listhesis of L2 over L3. Patient Care Nursing Assistant (topogram) images: No additional findings. IMPRESSION: 1. Consolidation and airways disease throughout the right lower lobe and in the posterior aspects of the remaining right lung. Left lower lung consolidation with a small left pleural effusion. Bilateral subsegmental airway mucus plugging. Findings are concerning for pneumonia or other pneumonitis such as aspiration. 2. Redemonstration of a sacral d (more content not included)... Normal [facility] Gas and Carbon monoxide pane l (BldV)on 11-22-2023 Base excess Calc (BldV) [Moles/Vol] 10 mmol/L High 0-2 [facility] Comment on above: Order Comment: Speci karishma Type: BLOOD SPECIMEN [facility] Address: [address] [place] [address] Performed By: #### 3 3959-8, 06361-9, 34338-9 #### [facility] CLIA [id number] [address] [place] [address] [place] Body temperature 98.96 [degF] Normal [facility] Comment on above: Order Comment: Gabrielai karishma Type: BLOOD SPECIMEN [facility] Address: [address] [place] [address] Performed By: #### 3 3959-8, 86497-0, 02926-1 #### [facility] CLIA [id number] [address] [place] [address] [place] Calcium.ionized (Bld) [Mass/Vol] 1.22 mmol/L Normal 1.08-1.30 [facility] Comment on above: Order Comment: Gabrielai men Type: BLOOD SPECIMEN [facility] Address: [address] [place] [address] Performed By: #### 3 3959-8, 28955-5, 19508-0 #### [facility] CLIA [id number] [address] [place] [address] [place] Calcium.ionized adjusted to pH 7.4 (BldA) [Moles/Vol] 1.25 mmol/L Normal 1.08-1.30 [facility] Comment on above: Order Comment: Speci men Type: BLOOD SPECIMEN [facility] Address: [address] [place] [address] Performed By: #### 3 3959-8, 07056-9, 63203-8 #### [facility] CLIA [id number] [address] [place] [address] [place] Carboxyhemoglobin (BldV) [Mass fraction] 2.8 % High 0.0-2.0 [facility] Comment on above: Order Comment: Speci men Type: BLOOD SPECIMEN [facility] Address: [address] [place] [address] Result Comment: Carb oxyhemoglobin Reference Range for Smokers: 2.0-8.0% Performed By: #### 3 3959-8, 94690-1, 94737-6 #### [facility] CLIA [id number] [address] [place] [address] [place] CO2 (BldV) [Partial pressure] 51 mm[Hg] Normal 42-55 [facility] Comment on above: Order Comment: Speci men Type: BLOOD SPECIMEN [facility] Address: [address] [place], [place] [address] Performed By: #### 3 3959-8, 09290-0, 49413-5 #### [facility] CLIA [id number] [address] [place] [address] [place] CO2 adjusted to patient's actual temperature (BldV) [Partial pressure] 52 mmHg Normal 42-55 [facility] Comment on above: Order Comment: Speci men Type: BLOOD SPECIMEN [facility] Address: [address] [place] [address] Performed By: #### 3 3959-8, 82887-0, 14568-6 #### [facility] CLIA [id number] [address] [place] [address] [place] Glucose [Mass/Vol] 97 mg/dL Normal 60-105 [facility] Comment on above: Order Comment: Speci men Type: BLOOD SPECIMEN [facility] Address: [address] [place] [address] Performed By: #### 3 3959-8, 80510-6, 92647-6 #### [facility] CLIA [id number] [address] [place] [address] [place] HCO3 (Bld) [Moles/Vol] 35 mmol/L High 24-28 [facility] Comment on above: Order Comment: Speci men Type: BLOOD SPECIMEN [facility] Address: [address] [place] [address] Performed By: #### 3 3959-8, 37178-1, 31196-3 #### [facility] CLIA [id number] [address] [place] [address] [place] Hematocrit (Bld) [Volume fraction] 25.8 % Low 39.0-51.0 [facility] Comment on above: Order Comment: Speci men Type: BLOOD SPECIMEN [facility] Address: [address] [place] [address] Performed By: #### 3 3959-8, 50499-0, 00378-8 #### [facility] CLIA [id number] [address] [place] [address] [place] Hemoglobin (Bld) [Mass/Vol] 8.4 g/dL Low 13.0-17.0 [facility] Comment on above: Order Comment: Speci men Type: BLOOD SPECIMEN [facility] Address: [address] [place] [address] Performed By: #### 3 3959-8, 31322-0, 91387-7 #### [facility] CLIA [id number] [address] [place] [address] [place] Lactate [Moles/Vol] 1.2 mmol/L Normal 0.5-2.2 [facility] Comment on above: Order Comment: Speci men Type: BLOOD SPECIMEN [facility] Address: [address] [place] [address] Performed By: #### 3 3959-8, 83344-8, 05385-4 #### [facility] CLIA [id number] [address] [place] [address] [place] Methemoglobin (Bld) [Mass fraction] % Normal 0.0-1.5 [facility] Comment on above: Order Comment: Speci men Type: BLOOD SPECIMEN [facility] Address: [address] [place] [address] Performed By: #### 3 3959-8, 36284-3, 26392-1 #### [facility] CLIA [id number] [address] [place] [address] [place] O2 THERAPY Hi-Flow Trach Adapter-Heated [facility] Comment on above: Order Comment: Speci men Type: BLOOD SPECIMEN [facility] Address: [address] [place] [address] Performed By: #### 3 3959-8, 66025-8, 31834-6 #### [facility] CLIA [id number] [address] [place] [address] [place] Oxygen (BldV) [Partial pressure] 67 mm[Hg] High 35-45 [facility] Comment on above: Order Comment: Speci men Type: BLOOD SPECIMEN [facility] Address: [address] [place] [address] Performed By: #### 3 3959-8, 02462-8, 02913-8 #### [facility] CLIA [id number] [address] [place] [address] [place] Oxygen adjusted to patient's actual temperature (BldV) [Partial pressure] 68 mmHg High 35-45 [facility] Comment on above: Order Comment: Speci men Type: BLOOD SPECIMEN [facility] Address: [address] [place] [address] Performed By: #### 3 3959-8, 23370-1, 62439-5 #### [facility] CLIA [id number] [address] [place] [address] [place] Oxygen saturation in Venous blood 94 % High 60-85 [facility] Comment on above: Order Comment: Speci men Type: BLOOD SPECIMEN [facility] Address: [address] [place] [address] Performed By: #### 3 3959-8, 53419-1, 55572-5 #### [facility] CLIA [id number] [address] [place] [address] [place] Oxyhemoglobin (BldV) [Mass fraction] 92 % High 60-85 [facility] Comment on above: Order Comment: Speci men Type: BLOOD SPECIMEN [facility] Address: [address] [place] [address] Performed By: #### 3 3959-8, 70236-9, 20265-7 #### [facility] CLIA [id number] [address] [place] [address] [place] pH (BldV) 7.44 [pH] High 7.32-7.42 [facility] Comment on above: Order Comment: Speci men Type: BLOOD SPECIMEN [facility] Address: [address] [place] [address] Result Comment: Veno us specimen received in vacutainer. Suitable only for assessment of acid base status. Performed By: #### 3 3959-8, 90591-4, 06996-4 #### [facility] CLIA [id number] [address] [place] [address] [place] pH adjusted to patient's actual temperature (BldV) 7.44 High 7.32-7.42 [facility] Comment on above: Order Comment: Speci men Type: BLOOD SPECIMEN [facility] Address: [address] [place] [address] Performed By: #### 3 3959-8, 69547-0, 38787-0 #### [facility] CLIA [id number] [address] [place] [address] [place] Potassium [Moles/Vol] 3.5 mmol/L Normal 3.5-5.0 [facility] Comment on above: Order Comment: Speci men Type: BLOOD SPECIMEN [facility] Address: [address] [place] [address] Performed By: #### 3 3959-8, 59513-6, 96224-3 #### [facility] CLIA [id number] [address] [place] [address] [place] Sodium [Moles/Vol] 149 mmol/L High 136-144 [facility] Comment on above: Order Comment: Speci men Type: BLOOD SPECIMEN [facility] Address: [address] [place] [address] Performed By: #### 3 3959-8, 34177-3, 89227-8 #### [facility] CLIA [id number] [address] [place] [address] [place] Legionella Ag Ur Qlon 2023 Legionella sp Ag Ql (U) Negative Normal Negative [facility] Comment on above: Order Comment: Speci men Type: URINE SPECIMENOrdering Facility: [facility] Address: [address] [place] [address] Result Comment: Legi onella urinary antigen test is used as an aid in diagnosis of infection with Legionella pneumophila serogroup 1. It may be detected from a few days to several months after onset of signs and symptoms despite antibiotic therapy or disease resolution. A negative result cannot exclude Legionellosis. Clinical correlation is required. Performed By: #### 3 2781-7 ####[facility] LAB[facility] [id number] [facility] [id number] [place] [address] [place] Lipid 1996 panelon 4 Cholesterol [Mass/Vol] 91 mg/dL Normal <200 [facility] Comment on above: Order Comment: Speci men Type: BLOOD SPECIMEN [facility] Address: [address], [place] [address] Result Comment: <200 mg/dL, Desirable 200-239 mg/dL, Borderline high >239 mg/dL, High Performed By: #### 3 3959-8, 25106-1, 71047-9 #### [facility] CLIA [id number] [address] [place] [address] [facility] Cholesterol in HDL [Mass/Vol] 24 mg/dL Low >39 [facility] Comment on above: Order Comment: Darwin schwarz Type: BLOOD SPECIMEN [facility] Address: [address] [place] [address] Result Comment: 40-5 9 mg/dL, Acceptable >59 mg/dL, High: Negative risk factor for coronary heart disease <40 mg/dL, Low: Positive risk factor for coronary heart disease Performed By: #### 3 3959-8, 70747-9, 54647-5 #### [facility] CLIA [id number] [address] [place] [address] [facility] Cholesterol in LDL [Mass/Vol] 47 mg/dL Normal <100 [facility] Comment on above: Order Comment: Darwin schwarz Type: BLOOD SPECIMEN [facility] Address: [address] [place] [address] Result Comment: <100 mg/dL, Optimal 100-129 mg/dL, Near optimal/above optimal 130-159 mg/dL, Borderline high 160-189 mg/dL, High >189 mg/dL, Very high Secondary prevention optimal LDL Cholesterol levels are recommended to be < 70 mg/dL Performed By: #### 3 3959-8, 84013-2, 44018-0 #### [facility] CLIA [id number] [address] [place] [address] [facility] Cholesterol in LDL/Cholesterol in HDL [Mass ratio] 1.96 {ratio} Normal <2.54 [facility] Comment on above: Order Comment: Darwin schwarz Type: BLOOD SPECIMEN [facility] Address: [address] [place] [address] Result Comment: Refe rence: 1. National Cholesterol Education Program ATP III Guideline At-A-Glance Quick Desk Reference: National Heart, Lung, and Blood [place]. National Institutes of Health. 2001: NIH Publication No. 01-3305. 2. An International Atherosclerosis Society position paper: global recommendations for the management of dyslipidemia: executive summary, Atherosclerosis. 2014: 232(2):410-413. Performed By: #### 3 3959-8, 08617-8, 56163-1 #### [facility] CLIA [id number] [address] [place] [address] [place] Cholesterol in VLDL [Mass/Vol] 20 mg/dL Normal <30 [facility] Comment on above: Order Comment: [facility] Type: BLOOD SPECIMEN [facility] Address: [address] [place] [address] Performed By: #### 3 3959-8, 60211-4, 84344-4 #### [facility] CLIA [id number] [address] [facility] [place], [place] [address] [place] [address] [place] Cholesterol non HDL [Mass/Vol] 67 mg/dL Normal <130 [facility] Comment on above: Order Comment: [facility] Type: BLOOD SPECIMEN [facility] Address: [address] [place] [address] Result Comment: <130 mg/dL, Optimal 130-159 mg/dL, Near optimal/above optimal 160-189 mg/dL, Borderline high 190-219 mg/dL, High >219 mg/dL, Very high Secondary prevention optimal non HDL Cholesterol levels are recommended to be <100 mg/dL Performed By: #### 3 3959-8, 36433-8, 11709-3 #### [facility] CLIA [id number] [address] [place] [address] [place] Cholesterol.total/Ch olesterol in HDL [Mass ratio] 3.79 {ratio} Normal <5.10 [facility] Comment on above: Order Comment: [facility] Type: BLOOD SPECIMEN [facility] Address: [address] [place] [address] Performed By: #### 3 3959-8, 29083-0, 20434-3 #### [facility] CLIA [id number] [place] FASTING TIME 10 hrs Normal [facility] Comment on above: Order Comment: Speci men Type: BLOOD SPECIMEN [facility] Address: [address] [place] [address] Performed By: #### 3 3959-8, 49642-1, 27919-8 #### [facility] CLIA [id number] [place] Triglyceride [Mass/Vol] 98 mg/dL Normal <150 [facility] Comment on above: Order Comment: Speci men Type: BLOOD SPECIMEN [facility] Address: [address] [place] [address] Result Comment: <150 mg/dL, Normal 150-199 mg/dL, Borderline high 200-499 mg/dL, High >499 mg/dL, Very high Performed By: #### 3 3959-8, 23285-5, 85012-4 #### [facility] CLIA [id number] [place] MYCOPLASMA PNEUM PCRon 11-21 MYCOPLASMA PNEUM PCR [...] developed and its performance characteristics determined by [facility]. It has not been cleared or approved by the US Food and Drug Administration. This test was performed in a CLIA certified laboratory and is intended for clinical purposes. Performed By: [facility] [address] [place] [address] Mastercam Programmer: Nedra Francis MD, PhD CLIA Number: [id number] [facility] Comment on above: Performed By: #### M YCPCR ####[facility]IES[facility] [id number] [place] [address] Magnesium SerPl-mCncon 11-21 Magnesium [Mass/Vol] 2.0 mg/dL Normal 1.7-2.3 [facility] Comment on above: Order Comment: Speci men Type: BLOOD SPECIMEN [facility] Address: [address] [place] [address] Performed By: #### 3 3959-8, 20093-5, 41270-1 #### [facility] CLIA [id number] [address] [place] [address] [facility] NURSING PROGon 11-22-2023 NURSING PROG HNO ID: [id number] Author: JASON RODGERS RN Service: PICC Team Author Type: Registered Nurse Type: Nursing Progress Note Filed: 11/22/2023 13:44 Note Text: PICC/VASCULAR ACCESS PROGRESS NOTE SERVICE DATE: 11/22/2023 SERVICE TIME: 09 Patient ordered PICC line with blood cultures drawn yesterday. Ordering provider aware that blood cultures will need to be negative for 48 hours prior to placing central line. Patient has working IV at this time. SIGNATURE: Jason Rodgers RN PATIENT NAME: Lolis Quinones III DATE: November 22, 2023 TIME: 9:12 AM PAGER/CONTACT #: [phone] Normal [facility] NUTRITIONon 11-22-2023 NUTRITION HNO ID: [id number] Author: PATY XIONG RD Service: Nutrition Therapy [...] grd emesis; possible GIB) Estimated kilocalorie needs: 3979-9502 Calorie Calculation Method: (23-28 kcals/kg) Estimated protein [...] and cervical spinal stenosis who resides at [facility] in [facility] who presented to [place] ED for fever and increased SOB. Recently, he was treated for acute cholecystitis and had a percutaneous kwasi tube placed at [facility] which was removed 10/10/2022. ED provider initially requested patient to transfer to MICU at [facility] per family request but due to bed availability, patient is to be admitted to ICU at [facility] for Sepsis and Chronic Respiratory Failure requiring [...] DATE: November 22, 2023 TIME: 12:07 PM Normal [facility] Phosphate SerPl-mCncon 11-21 Phosphate [Mass/Vol] 2.6 mg/dL Low 2.7-4.8 [facility] Comment on above: Order Comment: Speci men Type: BLOOD SPECIMEN [facility] Address: [address] [place] [address] Performed By: #### 3 3959-8, 45533-3, 84556-5 #### [facility] CLIA [id number] [address] [place] [address] [place] STREPTOCOCCUS PNEUMONIAE AGo n 11-22-2023 STREPTOCOCCUS PNEUMONIAE AG STREP PNEUMO AG RESULT: Negative for Streptococcus pneumoniae antigen. Presumptive negative for pneumococcal pneumonia, suggesting no current or recent pneumococcal infection. Infection due to S.pneumoniae cannot be ruled out since the antigen present in the sample may be below the detection limit of the test. [facility] Comment on above: Performed By: #### S PNAG ####[facility] LABCLIA [id number] [id number] [address] [place] TYPE + SCREENon 11-22-2023 ABO A [facility] Comment on above: Order Comment: Speci men Type: BLOOD SPECIMENOrdering Facility: [facility] Address: [address] [place] [address] Performed By: #### T SCR ####[facility] BLOOD BANKCLIA [id number] [place] [address] [facility] HISTORICAL AB SCR STATUS Negative [facility] Comment on above: Order Comment: Speci men Type: BLOOD SPECIMENOrdering Facility: [facility] Address: [address] [place] [address] Performed By: #### T SCR ####JOHAN[facility] BLOOD BANKCLIA [id number] [place] [id number] [place] Rh Nom (Bld) Positive [facility] Comment on above: Order Comment: Speci men Type: BLOOD SPECIMENOrdering Facility: [facility] Address: [address] [place] [address] Performed By: #### T SCR ####JOHAN[facility] BLOOD BANKCLIA [id number] [place] [address] [place] TYPE AND SCREEN EXPIRATION 11/25/2023 23:59 [facility] Comment on above: Order Comment: Speci men Type: BLOOD SPECIMENOrdering Facility: [facility] Address: [address] [place] [address] Performed By: #### T SCR ####JOHAN[facility] BLOOD BANKCLIA [id number] [place] [address] [place] US ARM VEIN DVT [facility] LABo n 11-22-2023 US ARM VEIN DVT [facility] Non-Invasive Vascular Laboratory [facility] Upper Extremity Venous Duplex Bilateral/Complete Date [...] the internal jugular vein. Technologist: Wilder Stubbs [facility] Ordering physician: NIMA SCHRADER Referring physician: NIMA SCHRADER MD Interpreting physician: Richie Martinez MD Final CC [facility] Image : [id number] ID See Link below for Image Normal [facility] US LEG VEIN DVT [facility] LABo n 11-22-2023 US LEG VEIN DVT [facility] Non-Invasive Vascular Laboratory [facility] Lower Extremity Venous Duplex Bilateral/Complete Date [...] visualize the peroneal veins. Technologist: Wilder Stubbs [facility] Ordering physician: NIMA SCHRADER Referring physician: NIMA SCHRADER MD Interpreting physician: Richie Martinez MD Final [facility] Image : [id number] D See Link below for Image Normal [facility] Vancomycin [place] SerPl-mCncon 11-22-2023 Vancomycin random [Mass/Vol] <4.0 Low 10.0-20.0 [facility] Comment on above: Order Comment: Speci men Type: BLOOD SPECIMENOrdering Facility: [facility] Address: [address] [place] [address] Result Comment: Refe rence ranges and high/low indicator flags are provided as general guidelines only. The treating physician must determine appropriate target levels/dosing based on the specific clinical situation. Performed By: #### 4 091-5 ####[facility] LABORATORYCLIA [id number] [facility] [place] [address] [place] [facility] XR CHEST 1V FRONTAL PORTon 0 11-22-2023 [...] the right when compared to prior study. Lens Assistant: PSCJonas Transcribe Date/Time: Nov 22 2023 11:50A Dictated by : TONA BECKFORD MD This examination was interpreted and the report reviewed and electronically signed by: TONA BECKFORD MD on Nov 22 2023 11:53AM EST [id number] Normal [facility] Bacteria Bld Culton 11-21-19 24 Bacteria identified Cx Nom (Bld) CULTURE, BLOOD: No growth 5 days Normal [facility] Comment on above: Performed By: #### 6 00-7 ####[facility] LABCLIA [id number] [id number] [place] Bacteria identified Cx Nom (Bld) CULTURE, BLOOD: No growth 5 days Normal [facility] Comment on above: Performed By: #### 6 00-7 ####[facility] LABSALVADOR [id number] [facility] CENTERPooja [id number] [id number] [place] Bacteria Spec Resp Culton [...] and aztreonam. GRAM STAIN: Few Mixed oral cruz Rare Polymorphonuclear leukocytes ORGANISM ID: 1 (ACINETOBACTER BAUMANNII COMPLEX) ANTIBIOTIC INTERPRETATION JEFFREY STATUS REFERENCE RANGE Meropenem R >8 F Susceptible <=2 , [...] <=0.25 F ORGANISM ID: 2 (KLEBSIELLA PNEUMONIAE) ANTIBIOTIC INTERPRETATION JEFFREY STATUS REFERENCE RANGE Ampicillin R >=32 F Susceptible <=8 , [...] , Intermediate >=.5 , Resistant >=1 Abnormal [facility] Comment on above: Performed By: #### 3 2355-0 ####[facility] LABCLIA [id number] [place] [address] [place] Bacteria Ur Culton 4 Bacteria identified Cx Nom (U) ORGANISM ID: 1 >=100,000 CFU/ml Klebsiella pneumoniae Extended-spectrum beta-lactamase (ESBL) production detected in this isolate. ESBL producing strains are considered resistant to all cephalosporins, penicillins, and aztreonam. ORGANISM ID: 1 (KLEBSIELLA PNEUMONIAE) ANTIBIOTIC INTERPRETATION JEFFREY STATUS REFERENCE RANGE Ampicillin R >=32 F Susceptible <=8 , [...] , Intermediate >32 , Resistant >64 Abnormal [facility] Comment on above: Performed By: #### 6 30-4 ####[facility] LABSPRINGFIELD [facility] [id number] [facility] CLINICSDESK [id number], [place] [address] [place] CBC W Auto Differential pane l (Bld)on 11-21-2023 Anisocytosis Ql (Bld) Present Normal [facility] Comment on above: Order Comment: Speci men Type: BLOOD SPECIMENOrdering Facility: [facility] Address: [address] [place] [address] Performed By: #### 5 7021-8 ####[facility] LABORATORYIA [id number] [facility] [place] [address] [place] Basophils (Bld) [#/Vol] 0.00 10*3/uL Normal <0.11 [facility] Comment on above: Order Comment: Speci men Type: BLOOD SPECIMENOrdering Facility: [facility] Address: [address] [place] [address] Performed By: #### 5 7021-8 ####[facility] LABORATORYIA [id number] [place] [address] [place] Basophils/100 WBC (Bld) 0.0 % Normal [facility] Comment on above: Order Comment: Speci men Type: BLOOD SPECIMENOrdering Facility: [facility] Address: [address] [place] [address] Performed By: #### 5 7021-8 ####[facility] HOSPITALIA [id number] [place] [address] [place] Differential cell count method Nom (Bld) Manual Normal [facility] Comment on above: Order Comment: Speci men Type: BLOOD SPECIMENOrdering Facility: [facility] Address: [address] [place] [address] Performed By: #### 5 7021-8 ####[facility] LABORATORYIA [id number] [place] [address] [place] Eosinophils (Bld) [#/Vol] 0.00 10*3/uL Normal <0.46 [facility] Comment on above: Order Comment: Speci men Type: BLOOD SPECIMENOrdering Facility: [facility] Address: [address] [place] [address] Performed By: #### 5 7021-8 ####[facility] LABORATORYCLIA [id number] [place] [id number] [place] Eosinophils/100 WBC (Bld) 0.0 % Normal [facility] Comment on above: Order Comment: Speci men Type: BLOOD SPECIMENOrdering Facility: [facility] Address: [address] [place] [address] Performed By: #### 5 7021-8 ####[facility] LABORATORYCLIA [id number] [place] [address] [place] Erythrocyte distribution width (RBC) [Ratio] 17.2 % High 11.5-15.0 [facility] Comment on above: Order Comment: Speci men Type: BLOOD SPECIMENOrdering Facility: [facility] Address: [address] [place] [address] Performed By: #### 5 7021-8 ####[facility] HOSPITALIA [id number] [address] [place] Hematocrit (Bld) [Volume fraction] 33.1 % Low 39.0-51.0 [facility] Comment on above: Order Comment: Speci men Type: BLOOD SPECIMENOrdering Facility: [facility] Address: [address] [place] [address] Performed By: #### 5 7021-8 ####[facility] LABORATORYIA [id number] [place] [address] [place] Hemoglobin (Bld) [Mass/Vol] 9.5 g/dL Low 13.0-17.0 [facility] Comment on above: Order Comment: Speci men Type: BLOOD SPECIMENOrdering Facility: [facility] Address: [address] [place] [address] Performed By: #### 5 7021-8 ####[facility] LABORATORYIA [id number] [place] [id number] [place] Lymphocytes (Bld) [#/Vol] 1.31 10*3/uL Normal 1.00-4.00 [facility] Comment on above: Order Comment: Speci men Type: BLOOD SPECIMENOrdering Facility: [facility] Address: [address] [place] [address] Performed By: #### 5 7021-8 ####[facility] LABORATORYIA [id number] [place] [address] [place] Lymphocytes/100 WBC (Bld) 6.0 % Normal [facility] Comment on above: Order Comment: Speci men Type: BLOOD SPECIMENOrdering Facility: [facility] Address: [address] [place] [address] Performed By: #### 5 7021-8 ####[facility] HOSPITALIA [id number] [place] [address] [place] MCH (RBC) [Entitic mass] 24.8 pg Low 26.0-34.0 [facility] Comment on above: Order Comment: Speci men Type: BLOOD SPECIMENOrdering Facility: [facility] Address: [address] [place] [address] Performed By: #### 5 7021-8 ####[facility] HOSPITALIA [id number] [address] [place] MCHC (RBC) [Mass/Vol] 28.7 g/dL Low 30.5-36.0 [facility] Comment on above: Order Comment: Speci men Type: BLOOD SPECIMENOrdering Facility: [facility] Address: [address] [place] [address] Performed By: #### 5 7021-8 ####[facility] LABORATORYIA [id number] [place] [address] [place] MCV (RBC) [Entitic vol] 86.4 fL Normal 80.0-100.0 [facility] Comment on above: Order Comment: Speci men Type: BLOOD SPECIMENOrdering Facility: [facility] Address: [address] [place] [address] Performed By: #### 5 7021-8 ####[facility] LABORATORYIA [id number] [place] [address] [place] Monocytes (Bld) [#/Vol] 0.66 10*3/uL Normal <0.87 [facility] Comment on above: Order Comment: Speci men Type: BLOOD SPECIMENOrdering Facility: [facility] Address: [address] [place] [address] Performed By: #### 5 7021-8 ####[facility] LABORATORYCLIA [id number] [place] [address] [place] Monocytes/100 WBC (Bld) 3.0 % Normal [facility] Comment on above: Order Comment: Speci men Type: BLOOD SPECIMENOrdering Facility: [facility] Address: [address] [place] [address] Performed By: #### 5 7021-8 ####[facility] HOSPITALIA [id number] [place] [address] [place] Neutrophils (Bld) [#/Vol] 19.91 10*3/uL High 1.45-7.50 [facility] Comment on above: Order Comment: Speci men Type: BLOOD SPECIMENOrdering Facility: [facility] Address: [address] [place] [address] Performed By: #### 5 7021-8 ####[facility] HOSPITALIA [id number] [place] [address] [place] Neutrophils/100 WBC (Bld) 91.0 % Normal [facility] Comment on above: Order Comment: Speci men Type: BLOOD SPECIMENOrdering Facility: [facility] Address: [address] [place] [address] Performed By: #### 5 7021-8 ####[facility] LABORATORYIA [id number] [place] [address] [place] Nucleated RBC (Bld) [#/Vol] 10*3/uL Normal <0.01 [facility] Comment on above: Order Comment: Speci men Type: BLOOD SPECIMENOrdering Facility: [facility] Address: [address] [place] [address] Performed By: #### 5 7021-8 ####[facility] HOSPITALIA [id number] [place] [address] [place] Nucleated RBC/100 WBC (Bld) [Ratio] 0.0 /100 WBC Normal [facility] Comment on above: Order Comment: Speci men Type: BLOOD SPECIMENOrdering Facility: [facility] Address: [address] [place] [address] Performed By: #### 5 7021-8 ####[facility] HOSPITALIA [id number] [place] [address] [place] Platelet mean volume (Bld) [Entitic vol] 11.5 fL Normal 9.0-12.7 [facility] Comment on above: Order Comment: Speci men Type: BLOOD SPECIMENOrdering Facility: [facility] Address: [address] [place] [address] Performed By: #### 5 7021-8 ####[facility] HOSPITALIA [id number] [place] [address] [place] Platelets (Bld) [#/Vol] 435 10*3/uL High 150-400 [facility] Comment on above: Order Comment: Speci men Type: BLOOD SPECIMENOrdering Facility: [facility] Address: [address] [place] [address] Performed By: #### 5 7021-8 ####[facility] HOSPITALIA [id number] [place] [address] [place] Platelets Estimate (Bld) [#/Vol] Increased Normal [facility] Comment on above: Order Comment: Speci men Type: BLOOD SPECIMENOrdering Facility: [facility] Address: [address] [place] [address] Performed By: #### 5 7021-8 ####[facility] HOSPITALIA [id number] [place] [address] [place] Polychromasia LM Ql (Bld) Slight Normal [facility] Comment on above: Order Comment: Speci men Type: BLOOD SPECIMENOrdering Facility: [facility] Address: [address] [place] [address] Performed By: #### 5 7021-8 ####[facility] LABORATORYCLIA [id number] [facility] [place] [address] [place] RBC (Bld) [#/Vol] 3.83 10*6/uL Low 4.20-6.00 [facility] Comment on above: Order Comment: Speci men Type: BLOOD SPECIMENOrdering Facility: [facility] Address: [address] [place] [address] Performed By: #### 5 7021-8 ####[facility] LABORATORYCLIA [id number] [place] [address] [place] RED CELL MORPH Reviewed: see result s of individual morphologies Normal [facility] Comment on above: Order Comment: Speci men Type: BLOOD SPECIMENOrdering Facility: [facility] Address: [address] [place] [address] Performed By: #### 5 7021-8 ####[facility] LABORATORYIA [id number] [place] [address] [place] WBC (Bld) [#/Vol] 21.88 10*3/uL High 3.70-11.00 [facility] Comment on above: Order Comment: Speci men Type: BLOOD SPECIMENOrdering Facility: [facility] Address: [address] [place] [address] Performed By: #### 5 7021-8 ####[facility] LABORATORYIA [id number] [place] [address] [place] CNCRITCRon 11-21-2023 CNCRITCR Normal [facility] CONSULTon 11-21-2023 CONSULT HNO ID: [id number] Author: DEONNA ANAND APRN.GRID MOLDER Service: Wound/Ostomy Author Type: Nurse Practitioner Type: [...] the admitting diagnosis of Sepsis. Resides at [facility] and transfer from [facility]. 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 Information [...] of Onset Ischemic Heart Disease Paternal Grandfather [place] at 36 MEDICATIONS: Current Facility-Administered Medications Medication [...] scant yellow Julissa-wound: (more content not included)... Normal [facility] CONSULT PROGon 11-21-2023 CONSULT PROG HNO ID: [id number] Author: ADOLFO CORMIER RPh Service: Pharmacy Author [...] any questions, please contact pharmacist at extension [phone]. Age: [age] year old Allergies: ALLERGIES Allergen [...] Levels: No results found for: FEDERICO Cormier, [facility] Normal [facility] Comprehensive metabolic 2000 panelon 11-21-2023 Albumin [Mass/Vol] 3.0 g/dL Low 3.9-4.9 [facility] Comment on above: Order Comment: Speci men Type: BLOOD SPECIMEN [facility] Address: [address] [place] [address] Performed By: #### 3 3959-8, 57355-1, 28935-0 #### [facility] CLIA [id number] [address] [place] [address] [place] ALP [Catalytic activity/Vol] 118 U/L High 38-113 [facility] Comment on above: Order Comment: Speci men Type: BLOOD SPECIMEN [facility] Address: [address] [place] [address] Performed By: #### 3 3959-8, 67894-5, 32006-2 #### [facility] CLIA [id number] [address] [place] [address] [place] ALT [Catalytic activity/Vol] 26 U/L Normal 10-54 [facility] Comment on above: Order Comment: Speci men Type: BLOOD SPECIMEN [facility] Address: [address] [place] [address] Performed By: #### 3 3959-8, 16524-7, 19581-4 #### [facility] CLIA [id number] [address] [place] [address] [place] Anion gap [Moles/Vol] 11 mmol/L Normal 9-18 [facility] Comment on above: Order Comment: Speci men Type: BLOOD SPECIMEN [facility] Address: [address] [place] [address] Performed By: #### 3 3959-8, 64330-2, 93912-2 #### [facility] CLIA [id number] [address] [place] [address] [place] AST [Catalytic activity/Vol] 20 U/L Normal 14-40 [facility] Comment on above: Order Comment: Speci men Type: BLOOD SPECIMEN [facility] Address: [address] [place] [address] Performed By: #### 3 3959-8, 43374-2, 29185-7 #### [facility] CLIA [id number] [address] [place] [address] [place] Bilirubin [Mass/Vol] 0.3 mg/dL Normal 0.2-1.3 [facility] Comment on above: Order Comment: Speci men Type: BLOOD SPECIMEN [facility] Address: [address] [place] [address] Performed By: #### 3 3959-8, 48463-9, 09022-5 #### [facility] CLIA [id number] [address] [place] [address] [place] Calcium [Mass/Vol] 9.0 mg/dL Normal 8.5-10.2 [facility] Comment on above: Order Comment: Speci men Type: BLOOD SPECIMEN [facility] Address: [address] [place] [address] Performed By: #### 3 3959-8, 08137-7, 75292-4 #### [facility] CLIA [id number] [address] [place] [address] [place] Chloride [Moles/Vol] 104 mmol/L Normal 97-105 [facility] Comment on above: Order Comment: Speci men Type: BLOOD SPECIMEN [facility] Address: [address] [place] [address] Performed By: #### 3 3959-8, 77088-1, 39682-2 #### [facility] CLIA [id number] [address] [place] [address] [place] CO2 [Moles/Vol] 30 mmol/L Normal 22-30 [facility] Comment on above: Order Comment: Speci men Type: BLOOD SPECIMEN [facility] Address: [address] [place] [address] Performed By: #### 3 3959-8, 44630-5, 53412-1 #### [facility] CLIA [id number] [address] [place] [address] [place] Creatinine [Mass/Vol] 0.59 mg/dL Low 0.73-1.22 [facility] Comment on above: Order Comment: Speci men Type: BLOOD SPECIMEN [facility] Address: [address] [place] [address] Performed By: #### 3 3959-8, 67293-5, 78670-5 #### [facility] CLIA [id number] [address] [place], [place] [address] [place] [address] Creatinine and Glomerular filtration rate.predicted panel (S/P/Bld) 127 mL/min/1.73m??? Normal >=60 [facility] Comment on above: Order Comment: Speci men Type: BLOOD SPECIMEN [facility] Address: [address] [place] [address] Result Comment: Rae mated Glomerular Filtration Rate [...] actual GFR. Performed By: #### 3 3959-8, 62429-4, 82207-3 #### [facility] CLIA [id number] [address] [place] [address] [place] Glucose [Mass/Vol] 141 mg/dL High 74-99 [facility] Comment on above: Order Comment: Darwin schwarz Type: BLOOD SPECIMEN [facility] Address: [address] [place] [address] Result Comment: The [place] Diabetes Association (ADA) provides guidance for cutoff [...] Standards of Medical Care in Diabetes 2016, [place] [employer]. Diabetes Care. 2016.39(Suppl 1). Performed By: #### 3 3959-8, 47351-1, 06703-1 #### [facility] CLIA [id number] [address] [place] [address] [place] Potassium [Moles/Vol] 4.0 mmol/L Normal 3.7-5.1 [facility] Comment on above: Order Comment: Darwin schwarz Type: BLOOD SPECIMEN [facility] Address: [address] [place] [address] Performed By: #### 3 3959-8, 61957-3, 77164-3 #### [facility] CLIA [id number] [address] [place] [address] [place] Protein [Mass/Vol] 6.4 g/dL Normal 6.3-8.0 [facility] Comment on above: Order Comment: Darwin schwarz Type: BLOOD SPECIMEN [facility] Address: [address] [place], [place] [address] Performed By: #### 3 3959-8, 80756-3, 99732-8 #### [facility] CLIA [id number] [address] [place] [address] [place] Sodium [Moles/Vol] 145 mmol/L High 136-144 [facility] Comment on above: Order Comment: Speci men Type: BLOOD SPECIMEN [facility] Address: [address] [place] [address] Performed By: #### 3 3959-8, 01311-7, 08899-2 #### [facility] CLIA [id number] [address] [place] [address] [place] Urea nitrogen [Mass/Vol] 22 mg/dL Normal 9-24 [facility] Comment on above: Order Comment: Speci men Type: BLOOD SPECIMEN [facility] Address: [address] [place] [address] Performed By: #### 3 3959-8, 86289-6, 41532-0 #### [facility] CLIA [id number] [address] [place] [id number] [place] ECG COMPLETEon 11-21-2023 ECG COMPLETE Ventricular Rate : 1 21 BPM Atrial Rate : 121 BPM P-R Interval : 135 ms QRS Duration : 103 ms Q-T Interval : 297 ms QTC Calculation(Bazett) : 422 ms Calculated P [place] : 39 degrees Calculated R [place] : 88 degrees Calculated T [place] : -64 degrees Sinus tachycardia Borderline T abnormalities, diffuse leads Borderline ECG Confirmed by TING NEWELL M.D. ([id number]) on 11/21/2023 6:14:58 PM NAME : LOLIS QUINONES PID : [id number] : 1985 Gender : Male Race : ORD : [id number] Procedure Date : Nov 21 2023 16:35:57 Edit Date : Nov 21 2023 18:14:59 Diagnosis: Sinus tachycardia Borderline T abnormalities, diffuse leads Borderline ECG Confirmed by TING NEWELL M.D. ([id number]) on 11/21/2023 6:14:58 PM Test Reason : Arrhythmia Location : 300 : EKG ICU Overread By : TING NEWELL M.D. Edited By : TING NEWELL M.D. Referred By : IVAN COOK by : AURELIO SCHULTE Normal [facility] FLUABV+SARS-CoV-2+RSV Pnl Re sp COMPA+probeon 11-21-2023 FLUABV+SARS-CoV-2+RS V Pnl Resp COMPA+probe COVID 19 RESULT: Not detected The method used is RT-PCR or an equivalent NAAT method. Reference Range(the expected result in uninfected individuals): Not detected INFLUENZA A PCR: Not detected INFLUENZA B PCR: Not detected RSV PCR: Not detected Normal [facility] Comment on above: Performed By: #### 9 5941-1 ####[facility] LABORATORYCLIA [id number] [facility]USVD[address] [place] GASTRIC OCC BLDon 11-21-2023 Hemoglobin.gastroint estinal Ql (Gm fld) Positive Abnormal Negative [facility] Comment on above: Order Comment: Speci men Type: GASTRIC FLUID SPECIMENOrdering Facility: [facility] Address: [address] [place] [address] Performed By: #### F GSTRO ####[facility] LABCLIA [id number] [address] HISTORY PHYSICALon HISTORY PHYSICAL HNO ID: [id number] Author: THERON LEYVA APRN.GRID MOLDER Service: Critical Care Author Type: Nurse Practitioner Type: H&P Filed: 11/21/2023 17:59 Note Text: SERVICE DATE: 11/21/2023 SERVICE TIME: 5:54 PM [facility] HANDP NOTE HPI: This is a 38 year old male with a past medical history 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 According [...] had a percutaneous kwasi tube placed at [facility] which was removed 10/10/2022. ED provider initially requested patient to transfer to MICU at [facility] per family request but due to bed availability, patient is to be admitted to ICU at [facility] for Sepsis and Chronic Respiratory Failure requiring continuous ventilator support. 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 Normal [facility] NT-proBNP SerPl-mCncon 11-20 Natriuretic peptide.B prohormone N-Terminal [Mass/Vol] 236 pg/mL High <125 [facility] Comment on above: Order Comment: Speci men Type: BLOOD SPECIMEN [facility] Address: [address] [place] [address] Performed By: #### 3 3959-8, 28292-5, 94761-4 #### [facility] CLIA [id number] [place] Procalcitonin [facility]-ncon 0 11-21-2023 Procalcitonin [Mass/Vol] 0.86 ng/mL High <0.09 [facility] Comment on above: Order Comment: Speci karishma Type: BLOOD SPECIMEN [facility] Address: [address] [place] [address] Result Comment: For a guided interpretation of test results, please visit the Change in Procalcitonin Calculator, [email or web address]. Performed By: #### 3 3959-8, 85313-5, 93138-4 #### [facility] CLIA [id number] [place] [id number] [place] SEPSIS LACTATEon 11-21-2023 Lactate [Moles/Vol] 1.2 mmol/L Normal 0.0-2.0 [facility] Comment on above: Order Comment: Speci akrishma Type: BLOOD SPECIMENOrdering Facility: [facility] Address: [address] [place] [address] Performed By: #### S LACT ####[facility] LABORATORYCLIA [id number] [place] [address] [place] STAPH AUREUS PCRon S. aureus and MRSA panel COMPA+probe (Nose) Normal Negative [facility] Comment on above: Order Comment: Speci men Type: SWAB OF INTERNAL NOSE [facility] Address: [address] [place] [address] Result Comment: Nega tive for Staphylococcus aureus by PCR. Negative for MRSA by PCR Performed By: #### S APCR #### [facility] CLIA [id number] [address] [place] [address] [id number] [address] [place] Urinalysis complete panel (U )on 11-21-2023 Bacteria LM.HPF (Urine sed) [#/Area] Many Abnormal None Seen [facility] Comment on above: Order Comment: Speci men Type: URINE SPECIMENOrdering Facility: [facility] Address: [address] [place] [address] Performed By: #### 2 4356-8 ####[facility] [id number] [place] [address] [place] Bilirubin Ql (U) Negative Normal Negative [facility] Comment on above: Order Comment: Speci men Type: URINE SPECIMENOrdering Facility: [facility] Address: [address] [place] [address] Performed By: #### 2 4356-8 ####[facility] [id number] [place] [address] [place] Clarity (Unsp spec) Dense Turbid Abnormal Clear [facility] Comment on above: Order Comment: Speci men Type: URINE SPECIMENOrdering Facility: [facility] Address: [address] [place] [address] Performed By: #### 2 4356-8 ####[facility]ITAL[facility] [id number] [place] [address] [place] Color (U) Yellow Normal yellow [facility] Comment on above: Order Comment: Speci men Type: URINE SPECIMENOrdering Facility: [facility] Address: [address] [place] [address] Performed By: #### 2 4356-8 ####[facility] LABORATORYIA [id number] [place], [place] [address] [place] [address] Glucose Test strip (U) [Mass/Vol] Negative Normal Trace, Negative [facility] Comment on above: Order Comment: Speci men Type: URINE SPECIMENOrdering Facility: [facility] Address: [address] [place] [address] Performed By: #### 2 4356-8 ####[facility] LABORATORYIA [id number] [place] [address] [place] Hemoglobin Ql (U) 3+ Abnormal Negative, Trace [facility] Comment on above: Order Comment: Speci men Type: URINE SPECIMENOrdering Facility: [facility] Address: [address] [place] [address] Performed By: #### 2 4356-8 ####[facility]PITALIA [id number] [place], [place] [id number] [place] [address] Ketones Ql (U) Negative Normal Negative, Trace [facility] Comment on above: Order Comment: Speci men Type: URINE SPECIMENOrdering Facility: [facility] Address: [address] [place] [address] Performed By: #### 2 4356-8 ####[facility]OSPITALIA [id number] [place] [id number] [facility] Leukocyte esterase Test strip Ql (U) 500 Benjy/uL Abnormal Negative, 25 Benjy/uL [facility] Comment on above: Order Comment: Speci men Type: URINE SPECIMENOrdering Facility: [facility] Address: [address] [place] [address] Performed By: #### 2 4356-8 ####[facility]PITALIA [id number] [place] [address] [place] Nitrite Ql (U) 1+ Abnormal Negative [facility] Comment on above: Order Comment: Speci men Type: URINE SPECIMENOrdering Facility: [facility] Address: [address] [place] [address] Performed By: #### 2 4356-8 ####[facility] LABORATORYIA [id number] [place] [address] [place] pH (U) 7.0 [pH] Normal 5.0-8.0 [facility] Comment on above: Order Comment: Speci men Type: URINE SPECIMENOrdering Facility: [facility] Address: [address] [place] [address] Performed By: #### 2 4356-8 ####[facility]ITALIA [id number] [place] [id number] [place] Protein (U) [Mass/Vol] 1+ Abnormal Trace, Negative [facility] Comment on above: Order Comment: Speci men Type: URINE SPECIMENOrdering Facility: [facility] Address: [address] [place] [address] Performed By: #### 2 4356-8 ####[facility] [id number] [place] [address] [place] RBC LM.HPF (Urine sed) [#/Area] /[HPF] Abnormal 0-3 /HPF [facility] Comment on above: Order Comment: Speci men Type: URINE SPECIMENOrdering Facility: [facility] Address: [address] [place] [address] Performed By: #### 2 4356-8 ####[facility] [id number] [address] [place] Specific gravity (U) [Rel density] 1.042 High 1.005-1.030 [facility] Comment on above: Order Comment: Speci men Type: URINE SPECIMENOrdering Facility: [facility] Address: [address] [place] [address] Performed By: #### 2 4356-8 ####[facility]ITALIA [id number] [place] [id number] [place] Urobilinogen Ql (U) Normal Normal Normal [facility] Comment on above: Order Comment: Speci men Type: URINE SPECIMENOrdering Facility: [facility] Address: [address] [place] [address] Performed By: #### 2 4356-8 ####[facility] HOSPITALIA [id number] [place] [address] [facility] WBC LM.HPF (Urine sed) [#/Area] /[HPF] Abnormal 0-5 /HPF [facility] Comment on above: Order Comment: Speci men Type: URINE SPECIMENOrdering Facility: [facility] Address: [address] [place], [place] [address] Performed By: #### 2 4356-8 ####[facility] LABORATORYCLIA [id number] [place] [address] [place] XR CHEST 1V [...] IMPRESSION: Essentially stable bibasilar infiltrates and/or atelectasis. Lens Assistant: BENOIT Transcribe Date/Time: Nov 21 2023 4:50P Dictated by : ROWAN GARCIA MD This examination was interpreted and the report reviewed and electronically signed by: ROWAN GARCIA MD on Nov 21 2023 4:51PM EST [id number] Normal [facility] CASE MANAGEMon 10-23-2023 CASE MANAGEM Normal [facility] CNDSon 10-23-2023 CNDS Normal [facility] CONSULT PROGon 10-23-2023 CONSULT PROG Normal [facility] CASE MANAGEMon 10-22-2023 CASE MANAGEM Normal [facility] CBC panel Auto (Bld)on 10-22 Erythrocyte distribution width (RBC) [Ratio] 18.6 % High 11.5-15.0 [facility] Comment on above: Order Comment: Speci men Type: BLOOD SPECIMENOrdering Facility: [facility] Address: [address] [place] [address] Performed By: #### 5 8410-2 ####[facility] LABCLIA [id number] [place] [address] [place] Hematocrit (Bld) [Volume fraction] 34.4 % Low 39.0-51.0 [facility] Comment on above: Order Comment: Speci men Type: BLOOD SPECIMENOrdering Facility: [facility] Address: [address] [place] [address] Performed By: #### 5 8410-2 ####[facility] LABIA [id number] [place] [address] [place] Hemoglobin (Bld) [Mass/Vol] 10.4 g/dL Low 13.0-17.0 [facility] Comment on above: Order Comment: Speci men Type: BLOOD SPECIMENOrdering Facility: [facility] Address: [address] [place] [address] Performed By: #### 5 8410-2 ####[facility] LABIA [id number] [place] [address] [place] MCH (RBC) [Entitic mass] 25.6 pg Low 26.0-34.0 [facility] Comment on above: Order Comment: Speci men Type: BLOOD SPECIMENOrdering Facility: [facility] Address: [address] [place] [address] Performed By: #### 5 8410-2 ####[facility] LABCLIA [id number] [place] [address] [place] MCHC (RBC) [Mass/Vol] 30.2 g/dL Low 30.5-36.0 [facility] Comment on above: Order Comment: Speci men Type: BLOOD SPECIMENOrdering Facility: [facility] Address: [address] [place] [address] Performed By: #### 5 8410-2 ####[facility] LABCLIA [id number] [place] [address] [place] MCV (RBC) [Entitic vol] 84.5 fL Normal 80.0-100.0 [facility] Comment on above: Order Comment: Speci men Type: BLOOD SPECIMENOrdering Facility: [facility] Address: [address] [place] [address] Performed By: #### 5 8410-2 ####[facility] LABCLIA [id number] [place] [address] [place] Nucleated RBC (Bld) [#/Vol] 10*3/uL Normal <0.01 [facility] Comment on above: Order Comment: Speci men Type: BLOOD SPECIMENOrdering Facility: [facility] Address: [address] [place] [address] Performed By: #### 5 8410-2 ####[facility] LABCLIA [id number] [place] [address] [place] Platelet mean volume (Bld) [Entitic vol] 10.4 fL Normal 9.0-12.7 [facility] Comment on above: Order Comment: Speci men Type: BLOOD SPECIMENOrdering Facility: [facility] Address: [address] [place] [address] Performed By: #### 5 8410-2 ####[facility] LABCLIA [id number] [place] [address] [place] Platelets (Bld) [#/Vol] 479 10*3/uL High 150-400 [facility] Comment on above: Order Comment: Speci men Type: BLOOD SPECIMENOrdering Facility: [facility] Address: [address] [place] [address] Performed By: #### 5 8410-2 ####[facility] LABCLIA [id number] [address] [address] [place] RBC (Bld) [#/Vol] 4.07 10*6/uL Low 4.20-6.00 [facility] Comment on above: Order Comment: Speci men Type: BLOOD SPECIMENOrdering Facility: [facility] Address: [address] [place] [address] Performed By: #### 5 8410-2 ####[facility] HOSPITALIA [id number] [place] [id number] [place] WBC (Bld) [#/Vol] 13.67 10*3/uL High 3.70-11.00 [facility] Comment on above: Order Comment: Speci men Type: BLOOD SPECIMENOrdering Facility: [facility] Address: [address] [place] [address] Performed By: #### 5 8410-2 ####[facility] [id number] [place] [id number] [place] CONSULT PROGon 10-22-2023 CONSULT PROG Normal [facility] Comprehensive metabolic 2000 panelon 10-22-2023 Albumin [Mass/Vol] 2.9 g/dL Low 3.9-4.9 [facility] Comment on above: Order Comment: Speci men Type: BLOOD SPECIMENOrdering Facility: [facility] Address: [address] [place] [address] Performed By: #### 2 4323-8, 2777, ####[facility] [id number] [place] [id number] [place] ALP [Catalytic activity/Vol] 215 U/L High 38-113 [facility] Comment on above: Order Comment: Speci men Type: BLOOD SPECIMENOrdering Facility: [facility] Address: [address] [place] [address] Performed By: #### 2 4323-8, 2777-, ####[facility] LABCLIA [id number] [facility] [address] [address] [place] ALT [Catalytic activity/Vol] 22 U/L Normal 10-54 [facility] Comment on above: Order Comment: Speci men Type: BLOOD SPECIMENOrdering Facility: [facility] Address: [address] [place] [address] Performed By: #### 2 4323-8, 27703-09, ####[facility] LABCLIA [id number] [facility] [address] [address] [place] Anion gap [Moles/Vol] 11 mmol/L Normal 9-18 [facility] Comment on above: Order Comment: Speci men Type: BLOOD SPECIMENOrdering Facility: [facility] Address: [address] [place] [address] Performed By: #### 2 4323-8, 27703-09, ####[facility] LABCLIA [id number] [place] [id number] [place] AST [Catalytic activity/Vol] 14 U/L Normal 14-40 [facility] Comment on above: Order Comment: Speci men Type: BLOOD SPECIMENOrdering Facility: [facility] Address: [address] [place] [address] Performed By: #### 2 4323-8, 27703-09, ####[facility] LABCLIA [id number] [address] [address] [place] Bilirubin [Mass/Vol] 0.2 mg/dL Normal 0.2-1.3 [facility] Comment on above: Order Comment: Speci men Type: BLOOD SPECIMENOrdering Facility: [facility] Address: [address] [place], [place] [address] Performed By: #### 2 4323-8, 2777, ####[facility]CLIA [id number] [place] [address] [place] Calcium [Mass/Vol] 9.9 mg/dL Normal 8.5-10.2 [facility] Comment on above: Order Comment: Speci men Type: BLOOD SPECIMENOrdering Facility: [facility] Address: [address] [place] [address] Performed By: #### 2 4323-8, 2777, ####[facility]CLIA [id number] [place] [address] [place] Chloride [Moles/Vol] 96 mmol/L Low 97-105 [facility] Comment on above: Order Comment: Speci men Type: BLOOD SPECIMENOrdering Facility: [facility] Address: [address] [place] [address] Performed By: #### 2 4323-8, 27703-09, ####[facility] LABCLIA [id number] [place] [address] [place] CO2 [Moles/Vol] 31 mmol/L High 22-30 [facility] Comment on above: Order Comment: Speci men Type: BLOOD SPECIMENOrdering Facility: [facility] Address: [address] [place] [address] Performed By: #### 2 4323-8, 27703-09, ####[facility]CLIA [id number] [place] [address] [place] Creatinine [Mass/Vol] 0.46 mg/dL Low 0.73-1.22 [facility] Comment on above: Order Comment: Speci men Type: BLOOD SPECIMENOrdering Facility: [facility] Address: [address] [place] [address] Performed By: #### 2 4323-8, 27703-09, ####[facility]CLIA [id number] [place] [id number] [place] Creatinine and Glomerular filtration rate.predicted panel (S/P/Bld) 136 mL/min/1.73m??? Normal >=60 [facility] Comment on above: Order Comment: Darwin schwarz Type: BLOOD SPECIMENOrdering Facility: [facility] Address: [address] [place] [address] Result Comment: Rae mated Glomerular Filtration Rate [...] GFR. Performed By: #### 2 4323-8, 2777-, ####[facility]CL[facility] [id number] [place] [address] [place] Glucose [Mass/Vol] 108 mg/dL High 74-99 [facility] Comment on above: Order Comment: Darwin schwarz Type: BLOOD SPECIMENOrdering Facility: [facility] Address: [address] [place] [address] Result Comment: The [place] [employer] Association (ADA) provides guidance for cutoff [...] Standards of Medical Care in Diabetes 2016, [place] [employer]. Diabetes Care. 2016.39(Suppl 1). Performed By: #### 2 4323-8, 2777-, ####[facility]CLIA [id number] [place] [id number] [place] Potassium [Moles/Vol] 4.3 mmol/L Normal 3.7-5.1 [facility] Comment on above: Order Comment: Speci men Type: BLOOD SPECIMENOrdering Facility: [facility] Address: [address] [place] [address] Performed By: #### 2 4323-8, 2776-09, ####[facility]CLIA [id number] [place] [id number] [place] Protein [Mass/Vol] 6.2 g/dL Low 6.3-8.0 [facility] Comment on above: Order Comment: Speci men Type: BLOOD SPECIMENOrdering Facility: [facility] Address: [address] [place] [address] Performed By: #### 2 4323-8, 2776-09, ####[facility]CLIA [id number] [place] [id number] [place] Urea nitrogen [Mass/Vol] 12 mg/dL Normal 9-24 [facility] Comment on above: Order Comment: Speci men Type: BLOOD SPECIMENOrdering Facility: [facility] Address: [address] [place] [address] Performed By: #### 2 4323-8, 2776-09, ####[facility]CLIA [id number] [place] [id number] [place] Gas + CO Pnl BldVon 10-22-19 24 Sodium [Moles/Vol] 138 mmol/L Normal 136-144 [facility] Comment on above: Order Comment: Speci men Type: VENOUS BLOOD SPECIMENOrdering Facility: [facility] Address: [address] [place] [address] Performed By: #### 2 4344-4 ####[facility]CL[facility] [id number] [address] [address] [place] Order Comment: Speci men Type: BLOOD SPECIMENOrdering Facility: [facility] Address: [address] [place], [place] [address] Performed By: #### 2 4323-8, 2777-1, 95107-7 ####[facility] LABIA [id number] [place] [address] [place] Gas and Carbon monoxide pane l (BldV)on 10-22-2023 Base excess Calc (BldV) [Moles/Vol] 10 mmol/L High 0-2 [facility] Comment on above: Order Comment: Speci men Type: VENOUS BLOOD SPECIMENOrdering Facility: [facility] Address: [address] [place] [address] Performed By: #### 2 4344-4 ####[facility]IA [id number] [place] [address] [place] Body temperature 100.22 [degF] Normal [facility] Comment on above: Order Comment: Speci men Type: VENOUS BLOOD SPECIMENOrdering Facility: [facility] Address: [address] [place] [address] Performed By: #### 2 4344-4 ####[facility]IA [id number] [place] [address] [place] Calcium.ionized (Bld) [Mass/Vol] 1.25 mmol/L Normal 1.08-1.30 [facility] Comment on above: Order Comment: Speci men Type: VENOUS BLOOD SPECIMENOrdering Facility: [facility] Address: [address] [place] [address] Performed By: #### 2 4344-4 ####[facility]IA [id number] [place] [address] [place] Calcium.ionized adjusted to pH 7.4 (BldA) [Moles/Vol] 1.26 mmol/L Normal 1.08-1.30 [facility] Comment on above: Order Comment: Speci men Type: VENOUS BLOOD SPECIMENOrdering Facility: [facility] Address: [address] [place] [address] Performed By: #### 2 4344-4 ####[facility]CLIA [id number] [place] [address] [place] Carboxyhemoglobin (BldV) [Mass fraction] 1.2 % Normal 0.0-2.0 [facility] Comment on above: Order Comment: Speci men Type: VENOUS BLOOD SPECIMENOrdering Facility: [facility] Address: [address] [place] [address] Result Comment: Carb oxyhemoglobin Reference Range for Smokers: 2.0-8.0% Performed By: #### 2 4344-4 ####[facility] [id number] [place] [address] [place] CO2 (BldV) [Partial pressure] 56 mm[Hg] High 42-55 [facility] Comment on above: Order Comment: Speci men Type: VENOUS BLOOD SPECIMENOrdering Facility: [facility] [facility] Address: [address] [place] [address] Performed By: #### 2 4344-4 ####[facility] LABCLIA [id number] [place] [address] [place] CO2 adjusted to patient's actual temperature (BldV) [Partial pressure] 58 mmHg High 42-55 [facility] Comment on above: Order Comment: Speci men Type: VENOUS BLOOD SPECIMENOrdering Facility: [facility] Address: [address] [place] [address] Performed By: #### 2 4344-4 ####[facility]CL[facility] [id number] [place] [address] [place] FIO2 35 % Normal [facility] Comment on above: Order Comment: Speci men Type: VENOUS BLOOD SPECIMENOrdering Facility: [facility] Address: [address] [place] [address] Performed By: #### 2 4344-4 ####[facility]CL[facility] [id number] [place] [address] [place] Glucose [Mass/Vol] 114 mg/dL High 60-105 [facility] Comment on above: Order Comment: Speci men Type: VENOUS BLOOD SPECIMENOrdering Facility: [facility] Address: [address] [place] [address] Performed By: #### 2 4344-4 ####[facility]CLIA [id number] [place] [address] [place] HCO3 (Bld) [Moles/Vol] 35 mmol/L High 24-28 [facility] Comment on above: Order Comment: Speci men Type: VENOUS BLOOD SPECIMENOrdering Facility: [facility] Address: [address] [place] [address] Performed By: #### 2 4344-4 ####[facility]CL[facility] [id number] [place] [address] [place] Hematocrit (Bld) [Volume fraction] 32.6 % Low 39.0-51.0 [facility] Comment on above: Order Comment: Speci men Type: VENOUS BLOOD SPECIMENOrdering Facility: [facility] Address: [address] [place] [address] Performed By: #### 2 4344-4 ####[facility]CL[facility] [id number] [place] [address] [place] Hemoglobin (Bld) [Mass/Vol] 10.6 g/dL Low 13.0-17.0 [facility] Comment on above: Order Comment: Speci men Type: VENOUS BLOOD SPECIMENOrdering Facility: [facility] Address: [address] [place] [address] Performed By: #### 2 4344-4 ####[facility]CL[facility] [id number] [place] [address] [place] Lactate [Moles/Vol] 0.9 mmol/L Normal 0.5-2.2 [facility] Comment on above: Order Comment: Speci men Type: VENOUS BLOOD SPECIMENOrdering Facility: [facility] Address: [address] [place] [address] Performed By: #### 2 4344-4 ####[facility]CLIA [id number] [place] [id number] [place] Methemoglobin (Bld) [Mass fraction] 0.9 % Normal 0.0-1.5 [facility] Comment on above: Order Comment: Speci men Type: VENOUS BLOOD SPECIMENOrdering Facility: [facility] Address: [address] [place] [id number] Performed By: #### 2 4344-4 ####[facility]CL[facility] [id number] [place] [id number] [place] O2 THERAPY Ventilator Normal [facility] Comment on above: Order Comment: Speci men Type: VENOUS BLOOD SPECIMENOrdering Facility: [facility] Address: [address] [place] [id number] Performed By: #### 2 4344-4 ####[facility]CL[facility] [id number] [place] [id number] [place] Oxygen (BldV) [Partial pressure] 54 mm[Hg] High 35-45 [facility] Comment on above: Order Comment: Speci men Type: VENOUS BLOOD SPECIMENOrdering Facility: [facility] Address: [address] [place] [address] Performed By: #### 2 4344-4 ####[facility]CL[facility] [id number] [address] [address] [place] Oxygen adjusted to patient's actual temperature (BldV) [Partial pressure] 58 mmHg High 35-45 [facility] Comment on above: Order Comment: Speci men Type: VENOUS BLOOD SPECIMENOrdering Facility: [facility] Address: [address] [place] [address] Performed By: #### 2 4344-4 ####[facility]CL[facility] [id number] [address] [address] [place] Oxygen saturation in Venous blood 86 % High 60-85 [facility] Comment on above: Order Comment: Speci men Type: VENOUS BLOOD SPECIMENOrdering Facility: [facility] Address: [address] [place], [place] [address] Performed By: #### 2 4344-4 ####[facility]CLIA [id number] [place] [address] [place] Oxyhemoglobin (BldV) [Mass fraction] 84 % Normal 60-85 [facility] Comment on above: Order Comment: Speci men Type: VENOUS BLOOD SPECIMENOrdering Facility: [facility] Address: [address] [place] [address] Performed By: #### 2 4344-4 ####[facility]CL[facility] [id number] [place] [address] [place] pH (BldV) 7.42 [pH] Normal 7.32-7.42 [facility] Comment on above: Order Comment: Speci men Type: VENOUS BLOOD SPECIMENOrdering Facility: [facility] Address: [address] [place] [address] Performed By: #### 2 4344-4 ####[facility]CL[facility] [id number] [place] [address] [place] pH adjusted to patient's actual temperature (BldV) 7.41 Normal 7.32-7.42 [facility] Comment on above: Order Comment: Speci men Type: VENOUS BLOOD SPECIMENOrdering Facility: [facility] Address: [address] [place], [place] [address] Performed By: #### 2 4344-4 ####[facility]CL[facility] [id number] [place] [address] [place] Potassium [Moles/Vol] 4.1 mmol/L Normal 3.5-5.0 [facility] Comment on above: Order Comment: Speci men Type: VENOUS BLOOD SPECIMENOrdering Facility: [facility] Address: [address] [place], [place] [address] Performed By: #### 2 4344-4 ####[facility]CLIA [id number] [place] [address] [place] Magnesium SerPl-ncon 10-22 Magnesium [Mass/Vol] 2.1 mg/dL Normal 1.7-2.3 [facility] Comment on above: Order Comment: Speci men Type: BLOOD SPECIMENOrdering Facility: [facility] Address: [address] [place] [address] Performed By: #### 2 4323-8, 2777-1, 88624-7 ####[facility] LABIA [id number] [place] [address] [place] Phosphate SerPl-mCncon 10-22 Phosphate [Mass/Vol] 3.7 mg/dL Normal 2.7-4.8 [facility] Comment on above: Order Comment: Speci men Type: BLOOD SPECIMENOrdering Facility: [facility] Address: [address] [place] [address] Performed By: #### 2 4323-8, 2777-1, ####[facility] LABIA [id number] [place] [address] [place] THERAPY NTon 10-22-2023 THERAPY NT Normal [facility] Urinalysis complete panel (U )on 10-22-2023 Bacteria LM.HPF (Urine sed) [#/Area] Negative Normal Negative [facility] Comment on above: Order Comment: Speci men Type: URINE SPECIMENOrdering Facility: [facility] Address: [address] [place] [address] Performed By: #### 2 4356-8 ####[facility] LABIA [id number] [place] [address] [place] Bilirubin Ql (U) Negative Normal Negative [facility] Comment on above: Order Comment: Speci men Type: URINE SPECIMENOrdering Facility: [facility] Address: [address] [place] [address] Performed By: #### 2 4356-8 ####[facility]CL[facility] [id number] [place] [address] [place] Clarity (Unsp spec) Cloudy Abnormal Clear [facility] Comment on above: Order Comment: Speci men Type: URINE SPECIMENOrdering Facility: [facility] Address: [address] [place] [address] Performed By: #### 2 4356-8 ####[facility]CL[facility] [id number] [place] [address] [place] Color (U) Yellow Normal Yellow [facility] Comment on above: Order Comment: Speci men Type: URINE SPECIMENOrdering Facility: [facility] Address: [address] [place] [address] Performed By: #### 2 4356-8 ####[facility]CL[facility] [id number] [place] [address] [place] Epithelial cells LM.HPF (Urine sed) [#/Area] None Seen Normal [facility] Comment on above: Order Comment: Speci men Type: URINE SPECIMENOrdering Facility: [facility] Address: [address] [place] [address] Performed By: #### 2 4356-8 ####[facility]CL[facility] [id number] [place] [address] [place] Glucose Test strip (U) [Mass/Vol] Negative Normal Negative [facility] Comment on above: Order Comment: Speci men Type: URINE SPECIMENOrdering Facility: [facility] Address: [address] [place] [address] Performed By: #### 2 4356-8 ####[facility]CL[facility] [id number] [place] [address] [place] Hemoglobin Ql (U) 2+ Abnormal Negative [facility] Comment on above: Order Comment: Speci men Type: URINE SPECIMENOrdering Facility: [facility] Address: [address] [place] [address] Performed By: #### 2 4356-8 ####[facility]CL[facility] [id number] [place] [address] [place] Hyaline casts (Urine sed) [#/Area] 1-3 /LPF Abnormal 0 /LPF [facility] Comment on above: Order Comment: Speci men Type: URINE SPECIMENOrdering Facility: [facility] Address: [address] [place] [address] Performed By: #### 2 4356-8 ####[facility]CL[facility] [id number] [place] [address] [place] Ketones Ql (U) Negative Normal Negative [facility] Comment on above: Order Comment: Speci men Type: URINE SPECIMENOrdering Facility: [facility] Address: [address] [place] [address] Performed By: #### 2 4356-8 ####[facility]CLIA [id number] [place] [address] [place] Leukocyte esterase Test strip Ql (U) Negative Normal Negative [facility] Comment on above: Order Comment: Speci men Type: URINE SPECIMENOrdering Facility: [facility] Address: [address] [place] [address] Performed By: #### 2 4356-8 ####[facility]CLIA [id number] [facility] [place] [address] [place] Nitrite Ql (U) Negative Normal Negative [facility] Comment on above: Order Comment: Speci men Type: URINE SPECIMENOrdering Facility: [facility] Address: [address] [place] [address] Performed By: #### 2 4356-8 ####[facility]CLIA [id number] [place] [address] [place] pH (U) 8.0 [pH] Normal <8.5 [facility] Comment on above: Order Comment: Speci men Type: URINE SPECIMENOrdering Facility: [facility] Address: [address] [place] [address] Performed By: #### 2 4356-8 ####[facility] LABIA [id number] [place] [address] [place] Protein (U) [Mass/Vol] 1+ Abnormal Negative [facility] Comment on above: Order Comment: Speci men Type: URINE SPECIMENOrdering Facility: [facility] Address: [address] [place] [address] Performed By: #### 2 4356-8 ####[facility] LABIA [id number] [place] [address] [place] RBC LM.HPF (Urine sed) [#/Area] /[HPF] Abnormal 0-2 /HPF [facility] Comment on above: Order Comment: Speci men Type: URINE SPECIMENOrdering Facility: [facility] Address: [address] [place] [address] Performed By: #### 2 4356-8 ####[facility] LABIA [id number] [place] [address] [place] Specific gravity (U) [Rel density] 1.016 Normal 1.005-1.030 [facility] Comment on above: Order Comment: Speci men Type: URINE SPECIMENOrdering Facility: [facility] Address: [address] [place] [address] Performed By: #### 2 4356-8 ####[facility] LABIA [id number] [place] [address] [place] Urobilinogen Ql (U) 0.2 EU/dL Normal 0.2-1.0 EU/dL [facility] Comment on above: Order Comment: Speci men Type: URINE SPECIMENOrdering Facility: [facility] Address: [address] [place] [address] Performed By: #### 2 4356-8 ####[facility]CL[facility] [id number] [place] [address] [place] WBC LM.HPF (Urine sed) [#/Area] 0-5 /HPF Normal 0-5 /HPF [facility] Comment on above: Order Comment: Speci men Type: URINE SPECIMENOrdering Facility: [facility] Address: [address] [place] [address] Performed By: #### 2 4356-8 ####[facility] LABIA [id number] [place] [address] [place] XR CHEST 1V FRONTAL PORTon 0 10-22-2023 XR CHEST 1V FRONTAL PORT Normal [facility] aPTT PPPon 10-22-2023 aPTT Coag (PPP) [Time] 34.2 s High 23.0-32.4 [facility] Comment on above: Order Comment: Speci men Type: BLOOD SPECIMENOrdering Facility: [facility] Address: [address] [place] [address] Performed By: #### 1 4979-9 ####[facility] LABIA [id number] [place] [address] [place] CASE MANAGEMon 10-21-2023 CASE MANAGEM Normal [facility] CBC W Auto Differential pane l (Bld)on 10-21-2023 Basophils (Bld) [#/Vol] 0.09 10*3/uL Normal <0.11 [facility] Comment on above: Order Comment: Speci men Type: BLOOD SPECIMENOrdering Facility: [facility] Address: [address] [place] [address] Performed By: #### 5 8410-2, 20598-7 ####[facility]CLIA [id number] [place] [address] [place] Basophils/100 WBC (Bld) 0.6 % Normal [facility] Comment on above: Order Comment: Speci men Type: BLOOD SPECIMENOrdering Facility: [facility] Address: [address] [place] [address] Performed By: #### 5 8410-2, 76402-9 ####[facility]CL[facility] [id number] [place] [address] [place] Differential cell count method Nom (Bld) Auto Normal [facility] Comment on above: Order Comment: Speci men Type: BLOOD SPECIMENOrdering Facility: [facility] Address: [address] [place] [address] Performed By: #### 5 8410-2, 83116-2 ####[facility]CLIA [id number] [place] [address] [place] Eosinophils (Bld) [#/Vol] 0.12 10*3/uL Normal <0.46 [facility] Comment on above: Order Comment: Speci men Type: BLOOD SPECIMENOrdering Facility: [facility] Address: [address] [place] [address] Performed By: #### 5 8410-2, 25404-4 ####[facility]CLIA [id number] [place] [address] [place] Eosinophils/100 WBC (Bld) 0.8 % Normal [facility] Comment on above: Order Comment: Speci men Type: BLOOD SPECIMENOrdering Facility: [facility] Address: [address] [place] [address] Performed By: #### 5 8410-2, 51793-2 ####[facility]CLIA [id number] [place] [address] [place] Immature granulocytes (Bld) [#/Vol] 0.09 10*3/uL Normal <0.10 [facility] Comment on above: Order Comment: Speci men Type: BLOOD SPECIMENOrdering Facility: [facility] Address: [address] [place] [address] Performed By: #### 5 8410-2, 03980-0 ####[facility]CLIA [id number] [place] [address] [place] Immature granulocytes/100 WBC (Bld) 0.6 % Normal [facility] Comment on above: Order Comment: Speci men Type: BLOOD SPECIMENOrdering Facility: [facility] Address: [address] [place] [address] Performed By: #### 5 8410-2, 45022-8 ####[facility]CLIA [id number] [place] [address] [place] Lymphocytes (Bld) [#/Vol] 1.46 10*3/uL Normal 1.00-4.00 [facility] Comment on above: Order Comment: Speci men Type: BLOOD SPECIMENOrdering Facility: [facility] Address: [address] [place] [address] Performed By: #### 5 8410-2, 58310-4 ####[facility]CLIA [id number] [place] [address] [place] Lymphocytes/100 WBC (Bld) 9.1 % Normal [facility] Comment on above: Order Comment: Speci men Type: BLOOD SPECIMENOrdering Facility: [facility] Address: [address] [place] [address] Performed By: #### 5 8410-2, 03665-6 ####[facility]CLIA [id number] [place] [address] [place] Monocytes (Bld) [#/Vol] 0.70 10*3/uL Normal <0.87 [facility] Comment on above: Order Comment: Speci men Type: BLOOD SPECIMENOrdering Facility: [facility] Address: [address] [place] [address] Performed By: #### 5 8410-2, 94833-6 ####[facility]CLIA [id number] [place] [address] [place] Monocytes/100 WBC (Bld) 4.4 % Normal [facility] Comment on above: Order Comment: Speci men Type: BLOOD SPECIMENOrdering Facility: [facility] Address: [address] [place] [address] Performed By: #### 5 8410-2, 31490-6 ####[facility]CLIA [id number] [place] [address] [place] Neutrophils (Bld) [#/Vol] 13.50 10*3/uL High 1.45-7.50 [facility] Comment on above: Order Comment: Speci men Type: BLOOD SPECIMENOrdering Facility: [facility] Address: [address] [place] [address] Performed By: #### 5 8410-2, 45036-3 ####[facility] LABCLIA [id number] [place] [address] [place] Neutrophils/100 WBC (Bld) 84.5 % Normal [facility] Comment on above: Order Comment: Speci men Type: BLOOD SPECIMENOrdering Facility: [facility] Address: [address] [place] [address] Performed By: #### 5 8410-2, 73850-0 ####[facility]CLIA [id number] [place] [address] [place] CBC panel Auto (Bld)on 10-21 Erythrocyte distribution width (RBC) [Ratio] 18.4 % High 11.5-15.0 [facility] Comment on above: Order Comment: Speci men Type: BLOOD SPECIMENOrdering Facility: [facility] Address: [address] [place] [address] Performed By: #### 5 8410-2, 72675-5 ####[facility]CLIA [id number] [place] [address] [place] Hematocrit (Bld) [Volume fraction] 37.6 % Low 39.0-51.0 [facility] Comment on above: Order Comment: Speci men Type: BLOOD SPECIMENOrdering Facility: [facility] Address: [address] [place] [address] Performed By: #### 5 8410-2, 51814-6 ####[facility]CLIA [id number] [place] [address] [place] Hemoglobin (Bld) [Mass/Vol] 11.3 g/dL Low 13.0-17.0 [facility] Comment on above: Order Comment: Speci men Type: BLOOD SPECIMENOrdering Facility: [facility] Address: [address] [place] [address] Performed By: #### 5 8410-2, 62869-5 ####[facility] LABCLIA [id number] [place] [address] [place] MCH (RBC) [Entitic mass] 25.2 pg Low 26.0-34.0 [facility] Comment on above: Order Comment: Speci men Type: BLOOD SPECIMENOrdering Facility: [facility] Address: [address] [place] [address] Performed By: #### 5 8410-2, 98306-6 ####[facility] LABIA [id number] [place] [address] [place] MCHC (RBC) [Mass/Vol] 30.1 g/dL Low 30.5-36.0 [facility] Comment on above: Order Comment: Speci men Type: BLOOD SPECIMENOrdering Facility: [facility] Address: [address] [place] [address] Performed By: #### 5 8410-2, 73031-9 ####[facility]CLIA [id number] [place] [address] [place] MCV (RBC) [Entitic vol] 83.7 fL Normal 80.0-100.0 [facility] Comment on above: Order Comment: Speci men Type: BLOOD SPECIMENOrdering Facility: [facility] Address: [address] [place] [address] Performed By: #### 5 8410-2, 39258-4 ####[facility]CLIA [id number] [place] [address] [place] Nucleated RBC (Bld) [#/Vol] 10*3/uL Normal <0.01 [facility] Comment on above: Order Comment: Speci men Type: BLOOD SPECIMENOrdering Facility: [facility] Address: [address] [place] [address] Performed By: #### 5 8410-2, 62109-3 ####[facility]CLIA [id number] [place] [address] [place] Platelet mean volume (Bld) [Entitic vol] 10.2 fL Normal 9.0-12.7 [facility] Comment on above: Order Comment: Speci men Type: BLOOD SPECIMENOrdering Facility: [facility] Address: [address] [place] [address] Performed By: #### 5 8410-2, 17147-4 ####[facility] LABCLIA [id number] [place] [address] [place] Platelets (Bld) [#/Vol] 495 10*3/uL High 150-400 [facility] Comment on above: Order Comment: Speci men Type: BLOOD SPECIMENOrdering Facility: [facility] Address: [address] [place] [address] Performed By: #### 5 8410-2, 74052-8 ####[facility]CLIA [id number] [place] [address] [place] RBC (Bld) [#/Vol] 4.49 10*6/uL Normal 4.20-6.00 [facility] Comment on above: Order Comment: Speci men Type: BLOOD SPECIMENOrdering Facility: [facility] Address: [address] [place] [address] Performed By: #### 5 8410-2, 46699-1 ####[facility]CLIA [id number] [place] [address] [place] WBC (Bld) [#/Vol] 16.08 10*3/uL High 3.70-11.00 [facility] Comment on above: Order Comment: Speci men Type: BLOOD SPECIMENOrdering Facility: [facility] Address: [address] [place] [address] Performed By: #### 5 8410-2, 83352-3 ####[facility]CL[facility] [id number] [place] [address] [place] CONSULT PROGon 10-21-2023 CONSULT PROG Normal [facility] Comprehensive metabolic 2000 panelon 10-21-2023 Albumin [Mass/Vol] 3.0 g/dL Low 3.9-4.9 [facility] Comment on above: Order Comment: Speci men Type: BLOOD SPECIMENOrdering Facility: [facility] Address: [address] [place] [address] Performed By: #### 2 4323-8, 66072-3 ####[facility] LABIA [id number] [place] [address] [place] ALP [Catalytic activity/Vol] 263 U/L High 38-113 [facility] Comment on above: Order Comment: Speci men Type: BLOOD SPECIMENOrdering Facility: [facility] Address: [address] [place] [address] Performed By: #### 2 4323-8, 77551-7 ####[facility]CL[facility] [id number] [place] [address] [place] ALT [Catalytic activity/Vol] 29 U/L Normal 10-54 [facility] Comment on above: Order Comment: Speci men Type: BLOOD SPECIMENOrdering Facility: [facility] Address: [address] [place] [address] Performed By: #### 2 4323-8, 45211-0 ####[facility] LABCLIA [id number] [place] [address] [place] Anion gap [Moles/Vol] 9 mmol/L Normal 9-18 [facility] Comment on above: Order Comment: Speci men Type: BLOOD SPECIMENOrdering Facility: [facility] Address: [address] [place] [address] Performed By: #### 2 4323-8, 63946-5 ####[facility]CLIA [id number] [place] [address] [place] AST [Catalytic activity/Vol] 14 U/L Normal 14-40 [facility] Comment on above: Order Comment: Speci men Type: BLOOD SPECIMENOrdering Facility: [facility] Address: [address] [place] [address] Performed By: #### 2 4323-8, 53272-2 ####[facility] LABCLIA [id number] [place] [address] [place] Bilirubin [Mass/Vol] 0.2 mg/dL Normal 0.2-1.3 [place] [facility] Comment on above: Order Comment: Speci men Type: BLOOD SPECIMENOrdering Facility: [facility] Address: [address] [place] [address] Performed By: #### 2 4323-8, 27861-2 ####[facility] LABCLIA [id number] [place] [address] [place] Calcium [Mass/Vol] 9.9 mg/dL Normal 8.5-10.2 [facility] Comment on above: Order Comment: Speci men Type: BLOOD SPECIMENOrdering Facility: [facility] Address: [address] [place] [address] Performed By: #### 2 4323-8, 48300-4 ####[facility] LABCLIA [id number] [place] [id number] [place] Chloride [Moles/Vol] 96 mmol/L Low 97-105 [facility] Comment on above: Order Comment: Speci men Type: BLOOD SPECIMENOrdering Facility: [facility] Address: [address] [place] [address] Performed By: #### 2 4323-8, 18919-4 ####[facility] LABCLIA [id number] [place] [address] [place] CO2 [Moles/Vol] 34 mmol/L High 22-30 [facility] Comment on above: Order Comment: Speci men Type: BLOOD SPECIMENOrdering Facility: [facility] Address: [address] [place] [address] Performed By: #### 2 4323-8, 74306-8 ####[facility] LABCLIA [id number] [place] [address] [place] Creatinine [Mass/Vol] 0.41 mg/dL Low 0.73-1.22 [facility] Comment on above: Order Comment: Speci men Type: BLOOD SPECIMENOrdering Facility: [facility] Address: [address] [place] [address] Performed By: #### 2 4323-8, 93622-1 ####[facility] LABIA [id number] [place] [address] [place] Creatinine and Glomerular filtration rate.predicted panel (S/P/Bld) 141 mL/min/1.73m??? Normal >=60 [facility] Comment on above: Order Comment: Speci men Type: BLOOD SPECIMENOrdering Facility: [facility] Address: [address] [place] [address] Result Comment: Rae mated Glomerular Filtration Rate [...] actual GFR. Performed By: #### 2 4323-8, 98848-5 ####[facility] LABCLIA [id number] [address] [address] [place] Glucose [Mass/Vol] 106 mg/dL High 74-99 [facility] Comment on above: Order Comment: Speci men Type: BLOOD SPECIMENOrdering Facility: [facility] Address: [address] [id number] Result Comment: The [place] [employer] (ADA) provides guidance for cutoff [...] Standards of Medical Care in Diabetes 2016, [place] [employer]. Diabetes Care. 2016.39(Suppl 1). Performed By: #### 2 4323-8, 57053-0 ####[facility] LABCLIA [id number] [address] [address] [place] Potassium [Moles/Vol] 4.2 mmol/L Normal 3.7-5.1 [facility] Comment on above: Order Comment: Speci men Type: BLOOD SPECIMENOrdering Facility: [facility] Address: [address] [place] [address] Performed By: #### 2 4323-8, 50435-4 ####[facility] LABCLIA [id number] [address] [address] [place] Protein [Mass/Vol] 6.5 g/dL Normal 6.3-8.0 [facility] Comment on above: Order Comment: Speci men Type: BLOOD SPECIMENOrdering Facility: [facility] Address: [address] [place] [address] Performed By: #### 2 4323-8, 07514-0 ####[facility] LABCLIA [id number] [address] [address] [place] Sodium [Moles/Vol] 139 mmol/L Normal 136-144 [facility] Comment on above: Order Comment: Speci men Type: BLOOD SPECIMENOrdering Facility: [facility] Address: [address] [place] [address] Performed By: #### 2 4323-8, 65107-6 ####[facility] LABCLIA [id number] [place] [address] [place] Urea nitrogen [Mass/Vol] 11 mg/dL Normal 9-24 [facility] Comment on above: Order Comment: Speci men Type: BLOOD SPECIMENOrdering Facility: [facility] Address: [address] [place] [address] Performed By: #### 2 4323-8, 49183-4 ####[facility] LABCLIA [id number] [place] [address] [place] NUTRITIONon 10-21-2023 NUTRITION Normal [facility] Procalcitonin SerPl-mCncon 0 10-21-2023 Procalcitonin [Mass/Vol] 0.09 ng/mL High <0.09 [facility] Comment on above: Order Comment: Speci men Type: BLOOD SPECIMENOrdering Facility: [facility] Address: [address] [place] [address] Result Comment: For a guided interpretation of test results, please visit the Change in Procalcitonin Calculator, [email or web address]. Performed By: #### 2 4323-8, 33058-1 ####[facility] LABCLIA [id number] [place] [id number] [place] THERAPY NTon 10-21-2023 THERAPY NT Normal [facility] XR CHEST 1V FRONTAL PORTon 0 10-21-2023 XR CHEST 1V FRONTAL PORT Normal [facility] aPTT PPPon 10-21-2023 aPTT Coag (PPP) [Time] 33.9 s High 23.0-32.4 [facility] Comment on above: Order Comment: Speci men Type: BLOOD SPECIMENOrdering Facility: [facility] Address: [address] [place] [address] Performed By: #### 1 4979-9 ####[facility] LABCLIA [id number] [place] [address] [place] CBC panel Auto (Bld)on 10-20 Erythrocyte distribution width (RBC) [Ratio] 18.9 % High 11.5-15.0 [facility] Comment on above: Order Comment: Speci men Type: BLOOD SPECIMENOrdering Facility: [facility] Address: [address] [place] [address] Performed By: #### 5 8410-2 ####[facility] LABCLIA [id number] [place] [address] [place] Hematocrit (Bld) [Volume fraction] 35.4 % Low 39.0-51.0 [facility] Comment on above: Order Comment: Speci men Type: BLOOD SPECIMENOrdering Facility: [facility] Address: [address] [place] [address] Performed By: #### 5 8410-2 ####[facility] LABCLIA [id number] [place] [id number] [place] Hemoglobin (Bld) [Mass/Vol] 10.4 g/dL Low 13.0-17.0 [facility] Comment on above: Order Comment: Speci men Type: BLOOD SPECIMENOrdering Facility: [facility] Address: [address] [place] [address] Performed By: #### 5 8410-2 ####[facility] [id number] [place] [address] [place] MCH (RBC) [Entitic mass] 25.1 pg Low 26.0-34.0 [facility] Comment on above: Order Comment: Speci men Type: BLOOD SPECIMENOrdering Facility: [facility] Address: [address] [place] [address] Performed By: #### 5 8410-2 ####[facility] [id number] [place] [address] [place] MCHC (RBC) [Mass/Vol] 29.4 g/dL Low 30.5-36.0 [facility] Comment on above: Order Comment: Speci men Type: BLOOD SPECIMENOrdering Facility: [facility] Address: [address] [place] [address] Performed By: #### 5 8410-2 ####[facility] [id number] [place] [address] [place] MCV (RBC) [Entitic vol] 85.3 fL Normal 80.0-100.0 [facility] Comment on above: Order Comment: Speci men Type: BLOOD SPECIMENOrdering Facility: [facility] Address: [address] [place] [address] Performed By: #### 5 8410-2 ####[facility] [id number] [place] [address] [place] Nucleated RBC (Bld) [#/Vol] 10*3/uL Normal <0.01 [facility] Comment on above: Order Comment: Speci men Type: BLOOD SPECIMENOrdering Facility: [facility] Address: [address] [place] [address] Performed By: #### 5 8410-2 ####[facility] [id number] [place] [address] [place] Platelet mean volume (Bld) [Entitic vol] 10.4 fL Normal 9.0-12.7 [facility] Comment on above: Order Comment: Speci men Type: BLOOD SPECIMENOrdering Facility: [facility] Address: [address] [place] [address] Performed By: #### 5 8410-2 ####[facility] LABCLIA [id number] [place] [address] [place] Platelets (Bld) [#/Vol] 530 10*3/uL High 150-400 [facility] Comment on above: Order Comment: Speci men Type: BLOOD SPECIMENOrdering Facility: [facility] Address: [address] [place] [address] Performed By: #### 5 8410-2 ####[facility] LABIA [id number] [place] [address] [place] RBC (Bld) [#/Vol] 4.15 10*6/uL Low 4.20-6.00 [facility] Comment on above: Order Comment: Speci men Type: BLOOD SPECIMENOrdering Facility: [facility] Address: [address] [place] [address] Performed By: #### 5 8410-2 ####[facility] LABIA [id number] [place] [address] [place] WBC (Bld) [#/Vol] 11.74 10*3/uL High 3.70-11.00 [facility] Comment on above: Order Comment: Speci men Type: BLOOD SPECIMENOrdering Facility: [facility] Address: [address] [place] [address] Performed By: #### 5 8410-2 ####[facility] LABIA [id number] [place] [address] [place] Erythrocyte distribution width (RBC) [Ratio] 18.6 % High 11.5-15.0 [facility] Comment on above: Order Comment: Speci men Type: BLOOD SPECIMENOrdering Facility: [facility] Address: [address] [place] [address] Performed By: #### 5 8410-2 ####[facility] LABCLIA [id number] [place] [address] [place] Hematocrit (Bld) [Volume fraction] 33.1 % Low 39.0-51.0 [facility] Comment on above: Order Comment: Speci men Type: BLOOD SPECIMENOrdering Facility: [facility] Address: [address] [place] [address] Performed By: #### 5 8410-2 ####[facility] LABCLIA [id number] [place] [address] [place] Hemoglobin (Bld) [Mass/Vol] 9.7 g/dL Low 13.0-17.0 [facility] Comment on above: Order Comment: Speci men Type: BLOOD SPECIMENOrdering Facility: [facility] Address: [address] [place] [address] Performed By: #### 5 8410-2 ####[facility] LABCLIA [id number] [place] [address] [place] MCH (RBC) [Entitic mass] 24.8 pg Low 26.0-34.0 [facility] Comment on above: Order Comment: Speci men Type: BLOOD SPECIMENOrdering Facility: [facility] Address: [address] [place] [address] Performed By: #### 5 8410-2 ####[facility] LABCLIA [id number] [place] [address] [place] MCHC (RBC) [Mass/Vol] 29.3 g/dL Low 30.5-36.0 [facility] Comment on above: Order Comment: Speci men Type: BLOOD SPECIMENOrdering Facility: [facility] Address: [address] [place] [address] Performed By: #### 5 8410-2 ####[facility] LABCLIA [id number] [place] [address] [place] MCV (RBC) [Entitic vol] 84.7 fL Normal 80.0-100.0 [facility] Comment on above: Order Comment: Speci men Type: BLOOD SPECIMENOrdering Facility: [facility] Address: [address] [place] [address] Performed By: #### 5 8410-2 ####[facility] LABIA [id number] [place] [address] [place] Nucleated RBC (Bld) [#/Vol] 10*3/uL Normal <0.01 [facility] Comment on above: Order Comment: Speci men Type: BLOOD SPECIMENOrdering Facility: [facility] Address: [address] [place] [address] Performed By: #### 5 8410-2 ####[facility] [id number] [place] [address] [place] Platelet mean volume (Bld) [Entitic vol] 10.1 fL Normal 9.0-12.7 [facility] Comment on above: Order Comment: Speci men Type: BLOOD SPECIMENOrdering Facility: [facility] Address: [address] [place] [address] Performed By: #### 5 8410-2 ####[facility] [id number] [place] [address] [place] Platelets (Bld) [#/Vol] 470 10*3/uL High 150-400 [facility] Comment on above: Order Comment: Speci men Type: BLOOD SPECIMENOrdering Facility: [facility] Address: [address] [place] [address] Performed By: #### 5 8410-2 ####[facility] LABIA [id number] [place] [address] [place] RBC (Bld) [#/Vol] 3.91 10*6/uL Low 4.20-6.00 [facility] Comment on above: Order Comment: Speci men Type: BLOOD SPECIMENOrdering Facility: [facility] Address: [address] [place] [address] Performed By: #### 5 8410-2 ####[facility] LABCLIA [id number] [place] [address] [place] WBC (Bld) [#/Vol] 8.55 10*3/uL Normal 3.70-11.00 [facility] Comment on above: Order Comment: Speci men Type: BLOOD SPECIMENOrdering Facility: [facility] Address: [address] [place] [address] Performed By: #### 5 8410-2 ####[facility] LABCLIA [id number] [place] [address] [place] Comprehensive metabolic 2000 panelon 10-20-2023 Albumin [Mass/Vol] 2.9 g/dL Low 3.9-4.9 [facility] Comment on above: Order Comment: Speci men Type: BLOOD SPECIMENOrdering Facility: [facility] Address: [address] [place] [address] Performed By: #### 2 4323-8 ####[facility] LABCLIA [id number] [place] [address] [place] ALP [Catalytic activity/Vol] 290 U/L High 38-113 [facility] Comment on above: Order Comment: Speci men Type: BLOOD SPECIMENOrdering Facility: [facility] Address: [address] [place] [address] Performed By: #### 2 4323-8 ####[facility] LABCLIA [id number] [place] [address] [place] ALT [Catalytic activity/Vol] 34 U/L Normal 10-54 [facility] Comment on above: Order Comment: Speci men Type: BLOOD SPECIMENOrdering Facility: [facility] Address: [address] [place] [address] Performed By: #### 2 4323-8 ####[facility] LABCLIA [id number] [place] [address] [place] Anion gap [Moles/Vol] 11 mmol/L Normal 9-18 [facility] Comment on above: Order Comment: Speci men Type: BLOOD SPECIMENOrdering Facility: [facility] Address: [address] [place] [address] Performed By: #### 2 4323-8 ####[facility] LABCLIA [id number] [place] [address] [place] AST [Catalytic activity/Vol] 13 U/L Low 14-40 [facility] Comment on above: Order Comment: Speci men Type: BLOOD SPECIMENOrdering Facility: [facility] Address: [address] [place] [address] Performed By: #### 2 4323-8 ####[facility] LABCLIA [id number] [place] [address] [place] Bilirubin [Mass/Vol] 0.2 mg/dL Normal 0.2-1.3 [facility] Comment on above: Order Comment: Speci men Type: BLOOD SPECIMENOrdering Facility: [facility] Address: [address] [place] [address] Performed By: #### 2 4323-8 ####[facility] LABCLIA [id number] [place] [address] [place] Calcium [Mass/Vol] 9.5 mg/dL Normal 8.5-10.2 [facility] Comment on above: Order Comment: Speci men Type: BLOOD SPECIMENOrdering Facility: [facility] Address: [address] [place], [place] [address] Performed By: #### 2 4323-8 ####[facility] LABCLIA [id number] [place] [address] [place] Chloride [Moles/Vol] 96 mmol/L Low 97-105 [facility] Comment on above: Order Comment: Speci men Type: BLOOD SPECIMENOrdering Facility: [facility] Address: [address] [place] [address] Performed By: #### 2 4323-8 ####[facility] LABCLIA [id number] [place] [address] [place] CO2 [Moles/Vol] 33 mmol/L High 22-30 [facility] Comment on above: Order Comment: Speci men Type: BLOOD SPECIMENOrdering Facility: [facility] Address: [address] [place] [address] Performed By: #### 2 4323-8 ####[facility] LABIA [id number] [place] [address] [place] Creatinine [Mass/Vol] 0.46 mg/dL Low 0.73-1.22 [facility] Comment on above: Order Comment: Speci men Type: BLOOD SPECIMENOrdering Facility: [facility] Address: [address] [place] [address] Performed By: #### 2 4323-8 ####[facility] LABIA [id number] [place] [address] [place] Creatinine and Glomerular filtration rate.predicted panel (S/P/Bld) 136 mL/min/1.73m??? Normal >=60 [facility] Comment on above: Order Comment: Speci men Type: BLOOD SPECIMENOrdering Facility: [facility] Address: [address] [place] [address] Result Comment: Rae mated Glomerular Filtration Rate [...] actual GFR. Performed By: #### 2 4323-8 ####[facility] LABCLIA [id number] [address] [address] [place] Glucose [Mass/Vol] 99 mg/dL Normal 74-99 [facility] Comment on above: Order Comment: Speci men Type: BLOOD SPECIMENOrdering Facility: [facility] Address: [address] [place] [address] Result Comment: The [place] [employer] (ADA) provides guidance for cutoff [...] Standards of Medical Care in Diabetes 2016, [place] [employer]. Diabetes Care. 2016.39(Suppl 1). Performed By: #### 2 4323-8 ####[facility] LABCLIA [id number] [place] [address] [place] Potassium [Moles/Vol] 4.3 mmol/L Normal 3.7-5.1 [facility] Comment on above: Order Comment: Speci men Type: BLOOD SPECIMENOrdering Facility: [facility] Address: [address] [place], [place] [address] Performed By: #### 2 4323-8 ####[facility] LABCLIA [id number] [address] [address] [place] Protein [Mass/Vol] 6.0 g/dL Low 6.3-8.0 [facility] Comment on above: Order Comment: Speci men Type: BLOOD SPECIMENOrdering Facility: [facility] Address: [address] [place], [place] [address] Performed By: #### 2 4323-8 ####[facility] LABCLIA [id number] [place] [address] [place] Sodium [Moles/Vol] 140 mmol/L Normal 136-144 [facility] Comment on above: Order Comment: Speci men Type: BLOOD SPECIMENOrdering Facility: [facility] Address: [address] [place] [address] Performed By: #### 2 4323-8 ####[facility] LABCLIA [id number] [place] [address] [place] Urea nitrogen [Mass/Vol] 12 mg/dL Normal 9-24 [facility] Comment on above: Order Comment: Speci men Type: BLOOD SPECIMENOrdering Facility: [facility] Address: [address] [place] [address] Performed By: #### 2 4323-8 ####[facility] LABCLIA [id number] [place] [address] [place] Albumin [Mass/Vol] 2.8 g/dL Low 3.9-4.9 [facility] Comment on above: Order Comment: Speci men Type: BLOOD SPECIMENOrdering Facility: [facility] Address: [address] [place] [address] Performed By: #### 2 4323-8 ####[facility] LABCLIA [id number] [place] [address] [place] ALP [Catalytic activity/Vol] 328 U/L High 38-113 [facility] Comment on above: Order Comment: Speci men Type: BLOOD SPECIMENOrdering Facility: [facility] Address: [address] [place], [place] [address] Performed By: #### 2 4323-8 ####[facility] LABCLIA [id number] [place] [address] [place] ALT [Catalytic activity/Vol] 45 U/L Normal 10-54 [facility] Comment on above: Order Comment: Speci men Type: BLOOD SPECIMENOrdering Facility: [facility] Address: [address] [id number] Performed By: #### 2 4323-8 ####[facility] LABCLIA [id number] [place] [address] [place] Anion gap [Moles/Vol] 8 mmol/L Low 9-18 [facility] Comment on above: Order Comment: Speci men Type: BLOOD SPECIMENOrdering Facility: [facility] Address: [address] [place] [address] Performed By: #### 2 4323-8 ####[facility] LABCLIA [id number] [place] [address] [place] AST [Catalytic activity/Vol] 16 U/L Normal 14-40 [facility] Comment on above: Order Comment: Speci men Type: BLOOD SPECIMENOrdering Facility: [facility] Address: [address] [place] [address] Performed By: #### 2 4323-8 ####[facility] LABCLIA [id number] [place] [address] [place] Bilirubin [Mass/Vol] 0.2 mg/dL Normal 0.2-1.3 [facility] Comment on above: Order Comment: Speci men Type: BLOOD SPECIMENOrdering Facility: [facility] Address: [address] [place], [place] [address] Performed By: #### 2 4323-8 ####[facility] LABCLIA [id number] [place] [id number] [place] Calcium [Mass/Vol] 10.0 mg/dL Normal 8.5-10.2 [facility] Comment on above: Order Comment: Speci men Type: BLOOD SPECIMENOrdering Facility: [facility] Address: [address] [place], [place] [address] Performed By: #### 2 4323-8 ####[facility] LABCLIA [id number] [address] [place] Chloride [Moles/Vol] 96 mmol/L Low 97-105 [facility] Comment on above: Order Comment: Speci men Type: BLOOD SPECIMENOrdering Facility: [facility] Address: [address] [place] [address] Performed By: #### 2 4323-8 ####[facility] LABCLIA [id number] [place] [address] [place] CO2 [Moles/Vol] 35 mmol/L High 22-30 [facility] Comment on above: Order Comment: Speci men Type: BLOOD SPECIMENOrdering Facility: [facility] Address: [address] [place] [address] Performed By: #### 2 4323-8 ####[facility] LABCLIA [id number] [place] [address] [place] Creatinine [Mass/Vol] 0.43 mg/dL Low 0.73-1.22 [facility] Comment on above: Order Comment: Speci men Type: BLOOD SPECIMENOrdering Facility: [facility] Address: [address] [place] [address] Performed By: #### 2 4323-8 ####[facility] LABCLIA [id number] [address] [place] Creatinine and Glomerular filtration rate.predicted panel (S/P/Bld) 139 mL/min/1.73m??? Normal >=60 [facility] Comment on above: Order Comment: Speci men Type: BLOOD SPECIMENOrdering Facility: [facility] Address: [address] [place] [address] Result Comment: Rae mated Glomerular Filtration Rate [...] actual GFR. Performed By: #### 2 4323-8 ####[facility] LABCLIA [id number] [place] [address] [place] Glucose [Mass/Vol] 110 mg/dL High 74-99 [facility] Comment on above: Order Comment: Speci men Type: BLOOD SPECIMENOrdering Facility: [facility] Address: [address] [place] [address] Result Comment: The [place] [employer] (ADA) provides guidance for cutoff [...] Standards of Medical Care in Diabetes 2016, [place] [employer]. Diabetes Care. 2016.39(Suppl 1). Performed By: #### 2 4323-8 ####[facility] LABCLIA [id number] [place] [address] [place] Potassium [Moles/Vol] 4.2 mmol/L Normal 3.7-5.1 [facility] Comment on above: Order Comment: Speci men Type: BLOOD SPECIMENOrdering Facility: [facility] Address: [address] [place] [address] Performed By: #### 2 4323-8 ####[facility] LABCLIA [id number] [place] [id number] [place] Protein [Mass/Vol] 6.2 g/dL Low 6.3-8.0 [facility] Comment on above: Order Comment: Speci men Type: BLOOD SPECIMENOrdering Facility: [facility] Address: [address] [place] [address] Performed By: #### 2 4323-8 ####[facility] LABCLIA [id number] [place] [address] [place] Sodium [Moles/Vol] 139 mmol/L Normal 136-144 [facility] Comment on above: Order Comment: Speci men Type: BLOOD SPECIMENOrdering Facility: [facility] Address: [address] [place] [address] Performed By: #### 2 4323-8 ####[facility] LABCLIA [id number] [place] [address] [place] Urea nitrogen [Mass/Vol] 8 mg/dL Low 9-24 [facility] Comment on above: Order Comment: Speci men Type: BLOOD SPECIMENOrdering Facility: [facility] Address: [address] [place] [address] Performed By: #### 2 4323-8 ####[facility] LABCLIA [id number] [place] [address] [place] PTT, ANTICOAGULANT THERAPYon 10-20-2023 aPTT Coag (PPP) [Time] 34.6 s High 23.0-32.4 [facility] Comment on above: Order Comment: Speci men Type: BLOOD SPECIMENOrdering Facility: [facility] Address: [address] [place] [address] Performed By: #### P TTAC ####[facility] LABIA [id number] [place] [address] [place] aPTT PPPon 10-20-2023 aPTT Coag (PPP) [Time] 33.3 s High 23.0-32.4 [facility] Comment on above: Order Comment: Speci men Type: BLOOD SPECIMENOrdering Facility: [facility] Address: [address] [place] [address] Performed By: #### 1 4979-9 ####[facility] LABCLIA [id number] [place] [address] [place] aPTT PPPon 10-19-2023 aPTT Coag (PPP) [Time] 110.7 s High 23.0-32.4 [facility] Comment on above: Order Comment: Speci men Type: BLOOD SPECIMENOrdering Facility: [facility] Address: [address] [place] [address] Performed By: #### 1 4979-9 ####[facility] LABCLIA [id number] [place] [address] [place] CBC panel Auto (Bld)on 10-18 Erythrocyte distribution width (RBC) [Ratio] 18.5 % High 11.5-15.0 [facility] Comment on above: Order Comment: Speci men Type: BLOOD SPECIMENOrdering Facility: [facility] Address: [address] [place] [address] Performed By: #### 5 8410-2 ####[facility] LABCLIA [id number] [place] [address] [place] Hematocrit (Bld) [Volume fraction] 35.4 % Low 39.0-51.0 [facility] Comment on above: Order Comment: Speci men Type: BLOOD SPECIMENOrdering Facility: [facility] Address: [address] [place] [address] Performed By: #### 5 8410-2 ####[facility] LABCLIA [id number] [place] [address] [place] Hemoglobin (Bld) [Mass/Vol] 10.5 g/dL Low 13.0-17.0 [facility] Comment on above: Order Comment: Speci men Type: BLOOD SPECIMENOrdering Facility: [facility] Address: [address] [place] [address] Performed By: #### 5 8410-2 ####[facility] LABCLIA [id number] [place] [address] [place] MCH (RBC) [Entitic mass] 24.9 pg Low 26.0-34.0 [facility] Comment on above: Order Comment: Speci men Type: BLOOD SPECIMENOrdering Facility: [facility] Address: [address] [place] [address] Performed By: #### 5 8410-2 ####[facility] LABIA [id number] [place] [address] [place] MCHC (RBC) [Mass/Vol] 29.7 g/dL Low 30.5-36.0 [facility] Comment on above: Order Comment: Speci men Type: BLOOD SPECIMENOrdering Facility: [facility] Address: [address] [place] [address] Performed By: #### 5 8410-2 ####[facility] [id number] [place] [address] [place] MCV (RBC) [Entitic vol] 83.9 fL Normal 80.0-100.0 [facility] Comment on above: Order Comment: Speci men Type: BLOOD SPECIMENOrdering Facility: [facility] Address: [address] [place] [address] Performed By: #### 5 8410-2 ####[facility] LABIA [id number] [place] [address] [place] Nucleated RBC (Bld) [#/Vol] 10*3/uL Normal <0.01 [facility] Comment on above: Order Comment: Speci men Type: BLOOD SPECIMENOrdering Facility: [facility] Address: [address] [place] [address] Performed By: #### 5 8410-2 ####[facility] LABIA [id number] [place] [address] [place] Platelet mean volume (Bld) [Entitic vol] 10.2 fL Normal 9.0-12.7 [facility] Comment on above: Order Comment: Speci men Type: BLOOD SPECIMENOrdering Facility: [facility] Address: [address] [place] [address] Performed By: #### 5 8410-2 ####[facility] LABIA [id number] [place] [id number] [place] Platelets (Bld) [#/Vol] 508 10*3/uL High 150-400 [facility] Comment on above: Order Comment: Speci men Type: BLOOD SPECIMENOrdering Facility: [facility] Address: [address] [place] [address] Performed By: #### 5 8410-2 ####[facility] [id number] [place] [address] [place] RBC (Bld) [#/Vol] 4.22 10*6/uL Normal 4.20-6.00 [facility] Comment on above: Order Comment: Speci men Type: BLOOD SPECIMENOrdering Facility: [facility] Address: [address] [place] [address] Performed By: #### 5 8410-2 ####[facility] [id number] [place] [address] [place] WBC (Bld) [#/Vol] 12.37 10*3/uL High 3.70-11.00 [facility] Comment on above: Order Comment: Speci men Type: BLOOD SPECIMENOrdering Facility: [facility] Address: [address] [place] [address] Performed By: #### 5 8410-2 ####[facility] [id number] [place] [id number] [place] CONSULT PROGon 10-18-2023 CONSULT PROG Normal [facility] CONSULT PROG Normal [facility] CONSULT PROG Normal [facility] Comprehensive metabolic 2000 panelon 10-18-2023 Albumin [Mass/Vol] 2.8 g/dL Low 3.9-4.9 [facility] Comment on above: Order Comment: Speci men Type: BLOOD SPECIMENOrdering Facility: [facility] Address: [address] [place] [address] Performed By: #### 2 4323-8 ####[facility] LABCLIA [id number] [place] [address] [place] ALP [Catalytic activity/Vol] 422 U/L High 38-113 [facility] Comment on above: Order Comment: Speci men Type: BLOOD SPECIMENOrdering Facility: [facility] Address: [address] [place] [address] Performed By: #### 2 4323-8 ####[facility] LABCLIA [id number] [place] [address] [place] ALT [Catalytic activity/Vol] 67 U/L High 10-54 [facility] Comment on above: Order Comment: Speci men Type: BLOOD SPECIMENOrdering Facility: [facility] Address: [address] [place] [address] Performed By: #### 2 4323-8 ####[facility] LABCLIA [id number] [place] [address] [place] Anion gap [Moles/Vol] 8 mmol/L Low 9-18 [facility] Comment on above: Order Comment: Speci men Type: BLOOD SPECIMENOrdering Facility: [facility] Address: [address] [place] [address] Performed By: #### 2 4323-8 ####[facility] LABCLIA [id number] [place] [address] [place] AST [Catalytic activity/Vol] 23 U/L Normal 14-40 [facility] Comment on above: Order Comment: Speci men Type: BLOOD SPECIMENOrdering Facility: [facility] Address: [address] [place] [address] Performed By: #### 2 4323-8 ####[facility] LABCLIA [id number] [place] [address] [place] Bilirubin [Mass/Vol] mg/dL Low 0.2-1.3 [facility] Comment on above: Order Comment: Speci men Type: BLOOD SPECIMENOrdering Facility: [facility] Address: [address] [place] [address] Performed By: #### 2 4323-8 ####[facility] LABCLIA [id number] [address] [address] [place] Calcium [Mass/Vol] 9.5 mg/dL Normal 8.5-10.2 [facility] Comment on above: Order Comment: Speci men Type: BLOOD SPECIMENOrdering Facility: [facility] Address: [address] [place] [address] Performed By: #### 2 4323-8 ####[facility] LABCLIA [id number] [place] [address] [place] Chloride [Moles/Vol] 97 mmol/L Normal 97-105 [facility] Comment on above: Order Comment: Speci men Type: BLOOD SPECIMENOrdering Facility: [facility] Address: [address] [place] [address] Performed By: #### 2 4323-8 ####[facility] LABCLIA [id number] [place] [address] [place] CO2 [Moles/Vol] 34 mmol/L High 22-30 [facility] Comment on above: Order Comment: Speci men Type: BLOOD SPECIMENOrdering Facility: [facility] Address: [address] [place] [address] Performed By: #### 2 4323-8 ####[facility] LABCLIA [id number] [place] [address] [place] Creatinine [Mass/Vol] 0.46 mg/dL Low 0.73-1.22 [facility] Comment on above: Order Comment: Speci men Type: BLOOD SPECIMENOrdering Facility: [facility] Address: [address] [place] [address] Performed By: #### 2 4323-8 ####[facility] LABCLIA [id number] [place] [address] [place] Creatinine and Glomerular filtration rate.predicted panel (S/P/Bld) 136 mL/min/1.73m??? Normal >=60 [facility] Comment on above: Order Comment: Darwin schwarz Type: BLOOD SPECIMENOrdering Facility: [facility] Address: [address] [place] [address] Result Comment: Rae mated Glomerular Filtration Rate [...] actual GFR. Performed By: #### 2 4323-8 ####[facility] LABIA [id number] [place] [address] [place] Glucose [Mass/Vol] 121 mg/dL High 74-99 [facility] Comment on above: Order Comment: Darwin schwarz Type: BLOOD SPECIMENOrdering Facility: [facility] Address: [address] [place] [address] Result Comment: The [place] [employer] (ADA) provides guidance for cutoff [...] Standards of Medical Care in Diabetes 2016, [place] [employer]. Diabetes Care. 2016.39(Suppl 1). Performed By: #### 2 4323-8 ####[facility] LABCLIA [id number] [address] [id number] [address] [place] Potassium [Moles/Vol] 3.7 mmol/L Normal 3.7-5.1 [facility] Comment on above: Order Comment: Speci men Type: BLOOD SPECIMENOrdering Facility: [facility] Address: [address] [place] [address] Performed By: #### 2 4323-8 ####[facility] LABCLIA [id number] [place] [address] [place] Protein [Mass/Vol] 6.0 g/dL Low 6.3-8.0 [facility] Comment on above: Order Comment: Speci men Type: BLOOD SPECIMENOrdering Facility: [facility] Address: [address] [place] [address] Performed By: #### 2 4323-8 ####[facility] LABCLIA [id number] [place] [address] [place] Sodium [Moles/Vol] 139 mmol/L Normal 136-144 [facility] Comment on above: Order Comment: Speci men Type: BLOOD SPECIMENOrdering Facility: [facility] Address: [address] [place] [address] Performed By: #### 2 4323-8 ####[facility] LABCLIA [id number] [place] [address] [place] Urea nitrogen [Mass/Vol] 6 mg/dL Low 9-24 [facility] Comment on above: Order Comment: Speci men Type: BLOOD SPECIMENOrdering Facility: [facility] Address: [address] [place] [address] Performed By: #### 2 4323-8 ####[facility] LABCLIA [id number] [place] [address] [place] TYPE + SCREENon 10-18-2023 ABO A Normal [facility] Comment on above: Order Comment: Speci men Type: BLOOD SPECIMENOrdering Facility: [facility] Address: [address] [place] [address] Performed By: #### T SCR ####[facility] BANKCLIA [id number] [address] HISTORICAL AB SCR STATUS Negative Normal [facility] Comment on above: Order Comment: Speci men Type: BLOOD SPECIMENOrdering Facility: [facility] Address: [address] [place] [address] Performed By: #### T SCR ####[facility] BANKCLIA [id number] [place] [address] [place] Rh Nom (Bld) Positive Normal [facility] Comment on above: Order Comment: Speci men Type: BLOOD SPECIMENOrdering Facility: [facility] Address: [address] [place] [address] Performed By: #### T SCR ####[facility] BLO[facility] BANKCLIA [id number] [address] STATES OF [facility] TYPE AND SCREEN EXPIRATION 10/21/2023 23:59 Normal [facility] Comment on above: Order Comment: Speci men Type: BLOOD SPECIMENOrdering Facility: [facility] Address: [address] [place] [address] Performed By: #### T SCR ####[facility]LO[facility] BANKCLIA [id number] [place] [address] [place] XR CHEST 1V FRONTAL PORTon 0 10-18-2023 XR CHEST 1V FRONTAL PORT Normal [facility] aPTT PPPon 10-18-2023 aPTT Coag (PPP) [Time] 60.6 s High 23.0-32.4 [facility] Comment on above: Order Comment: Speci men Type: BLOOD SPECIMENOrdering Facility: [facility] Address: [address] [place] [address] Performed By: #### 1 4979-9 ####[facility] LABCLIA [id number] [address] [place] aPTT Coag (PPP) [Time] 63.3 s High 23.0-32.4 [facility] Comment on above: Order Comment: Speci men Type: BLOOD SPECIMENOrdering Facility: [facility] Address: [address] [place] [address] Performed By: #### 1 4979-9 ####[facility] LABCLIA [id number] [place] [address] [place] Bacteria Fld Culton 10-17-19 24 Bacteria identified Cx Nom (Body fld) CULTURE, BODY FLD: No growth GRAM STAIN: No organisms seen Moderate Polymorphonuclear leukocytes Gram stain from primary specimen Normal [facility] Comment on above: Performed By: #### 6 11-4, 39594-9 ####[facility] LABCLIA [id number] [place] [address] [place] CASE MANAGEMon 10-17-2023 CASE MANAGEM Normal [facility] CBC panel Auto (Bld)on 10-17 Erythrocyte distribution width (RBC) [Ratio] 18.5 % High 11.5-15.0 [facility] Comment on above: Order Comment: Speci men Type: BLOOD SPECIMENOrdering Facility: [facility] Address: [address] [place] [address] Performed By: #### 5 8410-2 ####[facility] LABCLIA [id number] [place] [address] [place] Hematocrit (Bld) [Volume fraction] 33.6 % Low 39.0-51.0 [facility] Comment on above: Order Comment: Speci men Type: BLOOD SPECIMENOrdering Facility: [facility] Address: [address] [place] [address] Performed By: #### 5 8410-2 ####[facility] LABCLIA [id number] [place] [address] [place] Hemoglobin (Bld) [Mass/Vol] 10.1 g/dL Low 13.0-17.0 [facility] Comment on above: Order Comment: Speci men Type: BLOOD SPECIMENOrdering Facility: [facility] Address: [address] [place] [address] Performed By: #### 5 8410-2 ####[facility] LABIA [id number] [place] [address] [place] MCH (RBC) [Entitic mass] 25.3 pg Low 26.0-34.0 [facility] Comment on above: Order Comment: Speci men Type: BLOOD SPECIMENOrdering Facility: [facility] Address: [address] [place] [address] Performed By: #### 5 8410-2 ####[facility] [id number] [place] [address] [place] MCHC (RBC) [Mass/Vol] 30.1 g/dL Low 30.5-36.0 [facility] Comment on above: Order Comment: Speci men Type: BLOOD SPECIMENOrdering Facility: [facility] Address: [address] [place] [address] Performed By: #### 5 8410-2 ####[facility] [id number] [place] [address] [place] MCV (RBC) [Entitic vol] 84.2 fL Normal 80.0-100.0 [facility] Comment on above: Order Comment: Speci men Type: BLOOD SPECIMENOrdering Facility: [facility] Address: [address] [place] [address] Performed By: #### 5 8410-2 ####[facility] LABIA [id number] [place] [address] [place] Nucleated RBC (Bld) [#/Vol] 10*3/uL Normal <0.01 [facility] Comment on above: Order Comment: Speci men Type: BLOOD SPECIMENOrdering Facility: [facility] Address: [address] [place] [address] Performed By: #### 5 8410-2 ####[facility] LABCLIA [id number] [place] [address] [place] Platelet mean volume (Bld) [Entitic vol] 10.7 fL Normal 9.0-12.7 [facility] Comment on above: Order Comment: Speci men Type: BLOOD SPECIMENOrdering Facility: [facility] Address: [address] [place] [address] Performed By: #### 5 8410-2 ####[facility] LABCLIA [id number] [place] [address] [place] Platelets (Bld) [#/Vol] 460 10*3/uL High 150-400 [facility] Comment on above: Order Comment: Speci men Type: BLOOD SPECIMENOrdering Facility: [facility] Address: [address] [place] [address] Performed By: #### 5 8410-2 ####[facility] LABIA [id number] [place] [address] [place] RBC (Bld) [#/Vol] 3.99 10*6/uL Low 4.20-6.00 [facility] Comment on above: Order Comment: Speci men Type: BLOOD SPECIMENOrdering Facility: [facility] Address: [address] [place] [address] Performed By: #### 5 8410-2 ####[facility] LABIA [id number] [place] [id number] [place] WBC (Bld) [#/Vol] 9.57 10*3/uL Normal 3.70-11.00 [facility] Comment on above: Order Comment: Speci men Type: BLOOD SPECIMENOrdering Facility: [facility] Address: [address] [place] [address] Performed By: #### 5 8410-2 ####[facility] LABIA [id number] [place] [address] [place] CONSULT PROGon 10-17-2023 CONSULT PROG Normal [facility] CONSULT PROG Normal [facility] Comprehensive metabolic 2000 panelon 10-17-2023 Albumin [Mass/Vol] 2.5 g/dL Low 3.9-4.9 [facility] Comment on above: Order Comment: Speci men Type: BLOOD SPECIMENOrdering Facility: [facility] Address: [address] [place] [address] Performed By: #### 2 4323-8 ####[facility] LABCLIA [id number] [place] [address] [place] ALP [Catalytic activity/Vol] 480 U/L High 38-113 [facility] Comment on above: Order Comment: Speci men Type: BLOOD SPECIMENOrdering Facility: [facility] Address: [address] [place] [address] Performed By: #### 2 4323-8 ####[facility] LABCLIA [id number] [place] [address] [place] ALT [Catalytic activity/Vol] 87 U/L High 10-54 [facility] Comment on above: Order Comment: Speci men Type: BLOOD SPECIMENOrdering Facility: [facility] Address: [address] [place] [address] Performed By: #### 2 4323-8 ####[facility] LABCLIA [id number] [place] [address] [place] Anion gap [Moles/Vol] 10 mmol/L Normal 9-18 [facility] Comment on above: Order Comment: Speci men Type: BLOOD SPECIMENOrdering Facility: [facility] Address: [address] [place] [address] Performed By: #### 2 4323-8 ####[facility] LABCLIA [id number] [place] [address] [place] AST [Catalytic activity/Vol] 28 U/L Normal 14-40 [facility] Comment on above: Order Comment: Speci men Type: BLOOD SPECIMENOrdering Facility: [facility] Address: [address] [place] [address] Performed By: #### 2 4323-8 ####[facility] LABCLIA [id number] [address] [address] [place] Bilirubin [Mass/Vol] 0.2 mg/dL Normal 0.2-1.3 [facility] Comment on above: Order Comment: Speci men Type: BLOOD SPECIMENOrdering Facility: [facility] Address: [address] [place] [address] Performed By: #### 2 4323-8 ####[facility] LABCLIA [id number] [place] [address] [place] Calcium [Mass/Vol] 9.5 mg/dL Normal 8.5-10.2 [facility] Comment on above: Order Comment: Speci men Type: BLOOD SPECIMENOrdering Facility: [facility] Address: [address] [place], [place] [address] Performed By: #### 2 4323-8 ####[facility] LABCLIA [id number] [place] [address] [place] Chloride [Moles/Vol] 98 mmol/L Normal 97-105 [facility] Comment on above: Order Comment: Speci men Type: BLOOD SPECIMENOrdering Facility: [facility] Address: [address] [place] [address] Performed By: #### 2 4323-8 ####[facility] LABCLIA [id number] [place] [address] [place] CO2 [Moles/Vol] 30 mmol/L Normal 22-30 [facility] Comment on above: Order Comment: Speci men Type: BLOOD SPECIMENOrdering Facility: [facility] Address: [address] [place] [address] Performed By: #### 2 4323-8 ####[facility] LABCLIA [id number] [place] [id number] [place] Creatinine [Mass/Vol] 0.45 mg/dL Low 0.73-1.22 [facility] Comment on above: Order Comment: Darwin schwarz Type: BLOOD SPECIMENOrdering Facility: [facility] Address: [address] [place] [address] Performed By: #### 2 4323-8 ####[facility] LABIA [id number] [place] [address] [place] Creatinine and Glomerular filtration rate.predicted panel (S/P/Bld) 137 mL/min/1.73m??? Normal >=60 [facility] Comment on above: Order Comment: Darwin schwarz Type: BLOOD SPECIMENOrdering Facility: [facility] Address: [address] [place] [address] Result Comment: Rae mated Glomerular Filtration Rate [...] actual GFR. Performed By: #### 2 4323-8 ####[facility] LABIA [id number] [place] [address] [place] Glucose [Mass/Vol] 133 mg/dL High 74-99 [facility] Comment on above: Order Comment: Darwin schwarz Type: BLOOD SPECIMENOrdering Facility: [facility] Address: [address] [place] [address] Result Comment: The [place] [employer] (ADA) provides guidance for cutoff [...] Standards of Medical Care in Diabetes 2016, [place] [employer]. Diabetes Care. 2016.39(Suppl 1). Performed By: #### 2 4323-8 ####[facility] LABCLIA [id number] [place] [address] [place] Potassium [Moles/Vol] 3.8 mmol/L Normal 3.7-5.1 [facility] Comment on above: Order Comment: Speci men Type: BLOOD SPECIMENOrdering Facility: [facility] Address: [address] [place] [address] Performed By: #### 2 4323-8 ####[facility] LABCLIA [id number] [place] [address] [place] Protein [Mass/Vol] 5.6 g/dL Low 6.3-8.0 [facility] Comment on above: Order Comment: Speci men Type: BLOOD SPECIMENOrdering Facility: [facility] Address: [address] [place] [address] Performed By: #### 2 4323-8 ####[facility] LABCLIA [id number] [place] [address] [place] Sodium [Moles/Vol] 138 mmol/L Normal 136-144 [facility] Comment on above: Order Comment: Speci men Type: BLOOD SPECIMENOrdering Facility: [facility] Address: [address] [place] [address] Performed By: #### 2 4323-8 ####[facility] LABCLIA [id number] [place] [address] [place] Urea nitrogen [Mass/Vol] 6 mg/dL Low 9-24 [facility] Comment on above: Order Comment: Speci men Type: BLOOD SPECIMENOrdering Facility: [facility] Address: [address] [place] [address] Performed By: #### 2 4323-8 ####[facility] LABCLIA [id number] [address] [place] Microorganism Spec Culton Microorganism identified Cx Nom (Unsp spec) CULTURE, FUNGAL: No Fungus isolated after 28 days FUNGAL SMEAR: No fungus seen Normal [facility] Comment on above: Performed By: #### 6 11-4, 16300-4 ####[facility] LABCLIA [id number] [place] [address] [place] Microorganism identified Cx Nom (Unsp spec) CULTURE, AFB: No Acid Fast Bacilli isolated after 42 days AFB STAIN: No acid fast bacilli seen by flurochrome stain Normal [facility] Comment on above: Performed By: #### 6 11-4, 54840-2 ####[facility] LABIA [id number] [place] [address] [place] PTT, ANTICOAGULANT THERAPYon 10-17-2023 aPTT Coag (PPP) [Time] 32.6 s High 23.0-32.4 [facility] Comment on above: Order Comment: Speci men Type: BLOOD SPECIMENOrdering Facility: [facility] Address: [address] [place] [address] Performed By: #### P TTAC ####[facility] LABIA [id number] [place] [address] [place] SYNOVIAL FL,CRYSTAL ID/STAFF REVon 10-17-2023 CRYSTAL PRELIM, SF PRELIMINARY REPORT N o diagnostic crystals seen. SEE FINAL SF PATH REVIEW Normal [facility] Comment on above: Order Comment: Speci men Type: BODY FLUID SPECIMENOrdering Facility: [facility] Address: [address] [place] [address] Performed By: #### R TSYNF, SFCRID, [id number] ####[facility] LABCLIA [id number] [place] [address] [place] CRYSTAL REVIEW Reviewed by Oscar Mccarthy MD Normal [facility] Comment on above: Order Comment: Speci men Type: BODY FLUID SPECIMENOrdering Facility: [facility] Address: [address] [place] [address] Performed By: #### R DEEP HAGEND, [id number] ####[facility] LABCLIA [id number] [place] [address] [place] Crystals LM Nom (Syn fld) None seen Normal None seen [facility] Comment on above: Order Comment: Speci men Type: BODY FLUID SPECIMENOrdering Facility: [facility] Address: [address] [place] [address] Performed By: #### R DEEP HAGEND, [id number] ####[facility] LABCLIA [id number] [place] [address] [place] SYNOVIAL FLUID MANUAL DIFFon 10-17-2023 DIF TTL, SYNOVIAL FLUID 100 cells counted Normal [facility] Comment on above: Order Comment: Speci men Type: BODY FLUID SPECIMENOrdering Facility: [facility] Address: [address] [place] [address] Performed By: #### R CHIN HAGENCRID, [id number] ####[facility] LABCLIA [id number] [place] [address] [place] EOSIN %, SF 1 Normal [facility] Comment on above: Order Comment: Speci men Type: BODY FLUID SPECIMENOrdering Facility: [facility] Address: [address] [place] [address] Performed By: #### R DEEP HAGEND, [id number] ####[facility] LABCLIA [id number] [place] [id number] [place] LYMPH%, SF 16 Normal [facility] Comment on above: Order Comment: Speci men Type: BODY FLUID SPECIMENOrdering Facility: [facility] Address: [address] [place] [address] Performed By: #### CHIN CLAIRECRIPooja, [id number] ####[facility] LABCLIA [id number] [address] [address] [place] MONO%, SF 17 Normal [facility] Comment on above: Order Comment: Speci men Type: BODY FLUID SPECIMENOrdering Facility: [facility] Address: [address] [place] [address] Performed By: #### R JORGE ALBERTO HAGEN, [id number] ####[facility] LABCLIA [id number] [place] [address] [place] NEUT% 63 High 0-<25 [facility] Comment on above: Order Comment: Speci men Type: BODY FLUID SPECIMENOrdering Facility: [facility] Address: [address] [place] [address] Performed By: #### DEEP CLAIRED, [id number] ####[facility] LABCLIA [id number] [place] [address] [place] SYNOVIAL C1% 3 Normal [facility] Comment on above: Order Comment: Speci men Type: BODY FLUID SPECIMENOrdering Facility: [facility] Address: [address] [place] [address] Performed By: #### JORGE ALBERTO CLAIRE, [id number] ####[facility] LABCLIA [id number] [address] [address] [place] SYNOVIAL FLUID, ROUTINEon Clarity (Unsp spec) Clear Normal Clear [facility] Comment on above: Order Comment: Speci men Type: BODY FLUID SPECIMENOrdering Facility: [facility] Address: [address] [place] [address] Performed By: #### JORGE ALBERTO CLAIRE, [id number] ####[facility] LABCLIA [id number] [place] [address] [place] Color (Syn fld) Yellow Normal Yellow [facility] Comment on above: Order Comment: Speci men Type: BODY FLUID SPECIMENOrdering Facility: [facility] Address: [address] [place] [address] Performed By: #### R JORGE ALBERTO HAGEN, [id number] ####[facility] LABCLIA [id number] [place] [address] [place] RBC Manual cnt (Syn fld) [#/Vol] <2000 Normal <2000 [facility] Comment on above: Order Comment: Speci men Type: BODY FLUID SPECIMENOrdering Facility: [facility] Address: [address] [place] [address] Performed By: #### R JORGE ALBERTO HAGEN, [id number] ####[facility] LABCLIA [id number] [place] [address] [place] Specimen source Nom (Unsp spec) HIP LEFT Normal [facility] Comment on above: Order Comment: Speci men Type: BODY FLUID SPECIMENOrdering Facility: [facility] Address: [address] [place] [address] Performed By: #### R JORGE ALBERTO HAGEN, [id number] ####[facility] LABCLIA [id number] [place] [address] [place] WBC Manual cnt (Syn fld) [#/Vol] 1661 /uL High 0-200 [facility] Comment on above: Order Comment: Speci men Type: BODY FLUID SPECIMENOrdering Facility: [facility] Address: [address] [place] [address] Performed By: #### R JORGE ALBERTO HAGEN, [id number] ####[facility] LABCLIA [id number] [place] [address] [place] XR HIP/ILIOPSOAS ASPIRATION LTon 10-17-2023 XR HIP/ILIOPSOAS ASPIRATION LT Normal [facility] aPTT PPPon 10-17-2023 aPTT Coag (PPP) [Time] 73.9 s High 23.0-32.4 [facility] Comment on above: Order Comment: Speci men Type: BLOOD SPECIMENOrdering Facility: [facility] Address: [address] [place] [address] Performed By: #### 1 4979-9 ####[facility] LABCLIA [id number] [place] [address] [place] aPTT Coag (PPP) [Time] 53.5 s High 23.0-32.4 [facility] Comment on above: Order Comment: Speci men Type: BLOOD SPECIMENOrdering Facility: [facility] Address: [address] [place] [address] Performed By: #### 1 4979-9 ####[facility] LABCLIA [id number] [place] [address] [place] CBC panel Auto (Bld)on 10-16 Erythrocyte distribution width (RBC) [Ratio] 18.5 % High 11.5-15.0 [facility] Comment on above: Order Comment: Speci men Type: BLOOD SPECIMENOrdering Facility: [facility] Address: [address] [place] [address] Performed By: #### 5 8410-2 ####[facility] LABCLIA [id number] [place] [address] [place] Hematocrit (Bld) [Volume fraction] 33.1 % Low 39.0-51.0 [facility] Comment on above: Order Comment: Speci men Type: BLOOD SPECIMENOrdering Facility: [facility] Address: [address] [place] [address] Performed By: #### 5 8410-2 ####[facility] LABCLIA [id number] [place] [address] [place] Hemoglobin (Bld) [Mass/Vol] 9.8 g/dL Low 13.0-17.0 [facility] Comment on above: Order Comment: Speci men Type: BLOOD SPECIMENOrdering Facility: [facility] Address: [address] [place] [address] Performed By: #### 5 8410-2 ####[facility] [id number] [place] [address] [place] MCH (RBC) [Entitic mass] 24.9 pg Low 26.0-34.0 [facility] Comment on above: Order Comment: Speci men Type: BLOOD SPECIMENOrdering Facility: [facility] Address: [address] [place] [address] Performed By: #### 5 8410-2 ####[facility] [id number] [place] [address] [place] MCHC (RBC) [Mass/Vol] 29.6 g/dL Low 30.5-36.0 [facility] Comment on above: Order Comment: Speci men Type: BLOOD SPECIMENOrdering Facility: [facility] Address: [address] [place] [address] Performed By: #### 5 8410-2 ####[facility] [id number] [place] [address] [place] MCV (RBC) [Entitic vol] 84.2 fL Normal 80.0-100.0 [facility] Comment on above: Order Comment: Speci men Type: BLOOD SPECIMENOrdering Facility: [facility] Address: [address] [place] [address] Performed By: #### 5 8410-2 ####[facility] [id number] [place] [address] [place] Nucleated RBC (Bld) [#/Vol] 10*3/uL Normal <0.01 [facility] Comment on above: Order Comment: Speci men Type: BLOOD SPECIMENOrdering Facility: [facility] Address: [address] [place] [address] Performed By: #### 5 8410-2 ####[facility] LABCLIA [id number] [place] [address] [place] Platelet mean volume (Bld) [Entitic vol] 11.0 fL Normal 9.0-12.7 [facility] Comment on above: Order Comment: Speci men Type: BLOOD SPECIMENOrdering Facility: [facility] Address: [address] [place] [address] Performed By: #### 5 8410-2 ####[facility] LABIA [id number] [place] [address] [place] Platelets (Bld) [#/Vol] 476 10*3/uL High 150-400 [facility] Comment on above: Order Comment: Speci men Type: BLOOD SPECIMENOrdering Facility: [facility] Address: [address] [place] [address] Performed By: #### 5 8410-2 ####[facility] LABIA [id number] [place] [address] [place] RBC (Bld) [#/Vol] 3.93 10*6/uL Low 4.20-6.00 [facility] Comment on above: Order Comment: Speci men Type: BLOOD SPECIMENOrdering Facility: [facility] Address: [address] [place] [address] Performed By: #### 5 8410-2 ####[facility] LABCLIA [id number] [place] [address] [place] WBC (Bld) [#/Vol] 10.02 10*3/uL Normal 3.70-11.00 [facility] Comment on above: Order Comment: Speci men Type: BLOOD SPECIMENOrdering Facility: [facility] Address: [address] [place] [address] Performed By: #### 5 8410-2 ####[facility] LABCLIA [id number] [address] [address] [place] CONSULTon 10-16-2023 CONSULT Normal [facility] CONSULT PROGon 10-16-2023 CONSULT PROG Normal [facility] CRP SerPl-mCncon 10-16-2023 CRP [Mass/Vol] 6.7 mg/dL High <0.9 [facility] Comment on above: Order Comment: Speci men Type: BLOOD SPECIMENOrdering Facility: [facility] Address: [address] [place] [address] Performed By: #### 1 988-5 ####[facility] LABCLIA [id number] [place] [address] [place] CRP [Mass/Vol] 6.7 mg/dL High <0.9 [facility] Comment on above: Order Comment: Speci men Type: BLOOD SPECIMENOrdering Facility: [facility] Address: [address] [place] [address] Performed By: #### 1 988-5, 86203-7 ####[facility] LABCLIA [id number] [place] [address] [place] Comprehensive metabolic 2000 panelon 10-16-2023 Albumin [Mass/Vol] 2.6 g/dL Low 3.9-4.9 [facility] Comment on above: Order Comment: Speci men Type: BLOOD SPECIMENOrdering Facility: [facility] Address: [address] [place] [address] Performed By: #### 2 4323-8 ####[facility] LABCLIA [id number] [place] [id number] [place] ALP [Catalytic activity/Vol] 628 U/L High 38-113 [facility] Comment on above: Order Comment: Speci men Type: BLOOD SPECIMENOrdering Facility: [facility] Address: [address] [place] [address] Performed By: #### 2 4323-8 ####[facility] LABCLIA [id number] [place] [id number] [place] ALT [Catalytic activity/Vol] 131 U/L High 10-54 [facility] Comment on above: Order Comment: Speci men Type: BLOOD SPECIMENOrdering Facility: [facility] Address: [address] [place] [address] Performed By: #### 2 4323-8 ####[facility] LABCLIA [id number] [place] [address] [place] Anion gap [Moles/Vol] 9 mmol/L Normal 9-18 [facility] Comment on above: Order Comment: Speci men Type: BLOOD SPECIMENOrdering Facility: [facility] Address: [address] [place] [address] Performed By: #### 2 4323-8 ####[facility] LABCLIA [id number] [place] [address] [place] AST [Catalytic activity/Vol] 40 U/L Normal 14-40 [facility] Comment on above: Order Comment: Speci men Type: BLOOD SPECIMENOrdering Facility: [facility] Address: [address] [place] [address] Performed By: #### 2 4323-8 ####[facility] LABCLIA [id number] [place] [address] [place] Bilirubin [Mass/Vol] 0.2 mg/dL Normal 0.2-1.3 [facility] Comment on above: Order Comment: Speci men Type: BLOOD SPECIMENOrdering Facility: [facility] Address: [address] [place], [place] [address] Performed By: #### 2 4323-8 ####[facility] LABCLIA [id number] [place] [address] [place] Calcium [Mass/Vol] 9.1 mg/dL Normal 8.5-10.2 [facility] Comment on above: Order Comment: Speci men Type: BLOOD SPECIMENOrdering Facility: [facility] Address: [address] [place] [address] Performed By: #### 2 4323-8 ####[facility] LABCLIA [id number] [place] [address] [place] Chloride [Moles/Vol] 98 mmol/L Normal 97-105 [facility] Comment on above: Order Comment: Speci men Type: BLOOD SPECIMENOrdering Facility: [facility] Address: [address] [place] [address] Performed By: #### 2 4323-8 ####[facility] LABCLIA [id number] [place] [address] [place] CO2 [Moles/Vol] 30 mmol/L Normal 22-30 [facility] Comment on above: Order Comment: Speci men Type: BLOOD SPECIMENOrdering Facility: [facility] Address: [address] [place] [address] Performed By: #### 2 4323-8 ####[facility] LABCLIA [id number] [place] [address] [place] Creatinine [Mass/Vol] 0.41 mg/dL Low 0.73-1.22 [facility] Comment on above: Order Comment: Speci men Type: BLOOD SPECIMENOrdering Facility: [facility] Address: [address] [place] [address] Performed By: #### 2 4323-8 ####[facility] LABCLIA [id number] [place] [address] [place] Creatinine and Glomerular filtration rate.predicted panel (S/P/Bld) 141 mL/min/1.73m??? Normal >=60 [facility] Comment on above: Order Comment: Speci men Type: BLOOD SPECIMENOrdering Facility: [facility] Address: [address] [place] [address] Result Comment: Rae mated Glomerular Filtration Rate [...] actual GFR. Performed By: #### 2 4323-8 ####[facility] LABCLIA [id number] [place] [address] [place] Glucose [Mass/Vol] 133 mg/dL High 74-99 [facility] Comment on above: Order Comment: Darwin schwarz Type: BLOOD SPECIMENOrdering Facility: [facility] Address: [address] [place] [address] Result Comment: The [place] [employer] (ADA) provides guidance for cutoff [...] Standards of Medical Care in Diabetes 2016, [place] [employer]. Diabetes Care. 2016.39(Suppl 1). Performed By: #### 2 4323-8 ####[facility] LABCLIA [id number] [place] [id number] [place] Potassium [Moles/Vol] 3.6 mmol/L Low 3.7-5.1 [facility] Comment on above: Order Comment: Darwin schwarz Type: BLOOD SPECIMENOrdering Facility: [facility] Address: [address] [place] [address] Performed By: #### 2 4323-8 ####[facility] LABCLIA [id number] [address] [address] [place] Protein [Mass/Vol] 5.5 g/dL Low 6.3-8.0 [facility] Comment on above: Order Comment: Speci men Type: BLOOD SPECIMENOrdering Facility: [facility] Address: [address] [place] [id number] Performed By: #### 2 4323-8 ####[facility] LABCLIA [id number] [address] [address] [place] Sodium [Moles/Vol] 137 mmol/L Normal 136-144 [facility] Comment on above: Order Comment: Speci men Type: BLOOD SPECIMENOrdering Facility: [facility] Address: [address] [place] [address] Performed By: #### 2 4323-8 ####[facility] LABCLIA [id number] [place] [address] [place] Urea nitrogen [Mass/Vol] 6 mg/dL Low 9-24 [facility] Comment on above: Order Comment: Speci men Type: BLOOD SPECIMENOrdering Facility: [facility] Address: [address] [place] [address] Performed By: #### 2 4323-8 ####[facility] LABCLIA [id number] [place] [address] [place] Albumin [Mass/Vol] 2.8 g/dL Low 3.9-4.9 [facility] Comment on above: Order Comment: Speci men Type: BLOOD SPECIMENOrdering Facility: [facility] Address: [address] [place] [address] Performed By: #### 1 988-5, 12316-8 ####[facility] LABCLIA [id number] [place] [id number] [place] ALP [Catalytic activity/Vol] 772 U/L High 38-113 [facility] Comment on above: Order Comment: Speci men Type: BLOOD SPECIMENOrdering Facility: [facility] Address: [address] [place] [address] Performed By: #### 1 988-5, ####[facility] LABCLIA [id number] [address] [address] [place] ALT [Catalytic activity/Vol] 187 U/L High 10-54 [facility] Comment on above: Order Comment: Speci men Type: BLOOD SPECIMENOrdering Facility: [facility] Address: [address] [place] [address] Performed By: #### 1 988-5, ####[facility] LABCLIA [id number] [place] [address] [place] Anion gap [Moles/Vol] 8 mmol/L Low 9-18 [facility] Comment on above: Order Comment: Speci men Type: BLOOD SPECIMENOrdering Facility: [facility] Address: [address] [place] [address] Performed By: #### 1 988-5, ####[facility] LABCLIA [id number] [place] [address] [place] AST [Catalytic activity/Vol] 53 U/L High 14-40 [facility] Comment on above: Order Comment: Speci men Type: BLOOD SPECIMENOrdering Facility: [facility] Address: [address] [place] [address] Performed By: #### 1 988-5, ####[facility] LABCLIA [id number] [place] [address] [place] Bilirubin [Mass/Vol] 0.2 mg/dL Normal 0.2-1.3 [facility] Comment on above: Order Comment: Speci men Type: BLOOD SPECIMENOrdering Facility: [facility] Address: [address] [place] [address] Performed By: #### 1 988-5, ####[facility] LABCLIA [id number] [place] [address] [place] Calcium [Mass/Vol] 9.5 mg/dL Normal 8.5-10.2 [facility] Comment on above: Order Comment: Speci men Type: BLOOD SPECIMENOrdering Facility: [facility] Address: [address] [place] [address] Performed By: #### 1 988-5, ####[facility] LABCLIA [id number] [place] [address] [place] Chloride [Moles/Vol] 100 mmol/L Normal 97-105 [facility] Comment on above: Order Comment: Speci men Type: BLOOD SPECIMENOrdering Facility: [facility] Address: [address] [place] [address] Performed By: #### 1 988-5, ####[facility] LABCLIA [id number] [place] [address] [place] CO2 [Moles/Vol] 31 mmol/L High 22-30 [facility] Comment on above: Order Comment: Speci men Type: BLOOD SPECIMENOrdering Facility: [facility] Address: [address] [place] [address] Performed By: #### 1 988-5, ####[facility] LABCLIA [id number] [place] [address] [place] Creatinine [Mass/Vol] 0.42 mg/dL Low 0.73-1.22 [facility] Comment on above: Order Comment: Speci men Type: BLOOD SPECIMENOrdering Facility: [facility] Address: [address] [place] [address] Performed By: #### 1 988-5, ####[facility] LABCLIA [id number] [place] [address] [place] Creatinine and Glomerular filtration rate.predicted panel (S/P/Bld) 140 mL/min/1.73m??? Normal >=60 [facility] Comment on above: Order Comment: Speci men Type: BLOOD SPECIMENOrdering Facility: [facility] Address: [address] [place] [address] Result Comment: Rae mated Glomerular Filtration Rate [...] actual GFR. Performed By: #### 1 988-5, 55326-3 ####[facility] [id number] [place] [address] [place] Glucose [Mass/Vol] 116 mg/dL High 74-99 [facility] Comment on above: Order Comment: Darwin schwarz Type: BLOOD SPECIMENOrdering Facility: [facility] Address: [address] [place] [address] Result Comment: The [place] [employer] (ADA) provides guidance for cutoff [...] Standards of Medical Care in Diabetes 2016, [place] [employer]. Diabetes Care. 2016.39(Suppl 1). Performed By: #### 1 988-5, 69571-4 ####[facility] [id number] [place] [id number] [place] Potassium [Moles/Vol] 4.3 mmol/L Normal 3.7-5.1 [facility] Comment on above: Order Comment: Darwin schwarz Type: BLOOD SPECIMENOrdering Facility: [facility] Address: [address] [place] [address] Performed By: #### 1 988-5, 34110-2 ####[facility] LABCL[facility] [id number] [place] [id number] [place] Protein [Mass/Vol] 6.0 g/dL Low 6.3-8.0 [facility] Comment on above: Order Comment: Speci men Type: BLOOD SPECIMENOrdering Facility: [facility] Address: [address] [place] [address] Performed By: #### 1 988-5, 67489-2 ####[facility] LABIA [id number] [place] [address] [place] Sodium [Moles/Vol] 139 mmol/L Normal 136-144 [facility] Comment on above: Order Comment: Speci men Type: BLOOD SPECIMENOrdering Facility: [facility] Address: [address] [place] [address] Performed By: #### 1 988-5, 12595-8 ####[facility] LABIA [id number] [place] [address] [place] Urea nitrogen [Mass/Vol] 7 mg/dL Low 9-24 [facility] Comment on above: Order Comment: Speci men Type: BLOOD SPECIMENOrdering Facility: [facility] Address: [address] [place] [address] Performed By: #### 1 988-5, 09354-9 ####[facility] LABCLIA [id number] [place] [id number] [place] ESR Westergren method (Bld) [Velocity]on 10-16-2023 ESR (Bld) [Velocity] 46 mm/h High 0-15 [facility] Comment on above: Order Comment: Speci men Type: BLOOD SPECIMENOrdering Facility: [facility] Address: [address] [place] [address] Performed By: #### 4 537-7 ####[facility] LABCLIA [id number] [place] [address] [place] NM HEPATOBILIARY WO RXon NM HEPATOBILIARY WO RX Normal [facility] NUTRITIONon 10-16-2023 NUTRITION Normal [facility] PTT, ANTICOAGULANT THERAPYon 10-16-2023 aPTT Coag (PPP) [Time] 83.7 s High 23.0-32.4 [facility] Comment on above: Order Comment: Speci men Type: BLOOD SPECIMENOrdering Facility: [facility] Address: [address] [place] [address] Performed By: #### 1 4979-9, PTTAC ####[facility] LABIA [id number] [place] [address] [place] XR HIP 3V PELV+ AP/LAT LTon 10-16-2023 XR HIP 3V PELV+ AP/LAT LT Normal [facility] aPTT PPPon 10-16-2023 aPTT Coag (PPP) [Time] 40.4 s High 23.0-32.4 [facility] Comment on above: Order Comment: Speci men Type: BLOOD SPECIMENOrdering Facility: [facility] Address: [address] [place] [address] Performed By: #### 1 4979-9 ####[facility] LABIA [id number] [place] [address] [place] aPTT Coag (PPP) [Time] 62.8 s High 23.0-32.4 [facility] Comment on above: Order Comment: Speci men Type: BLOOD SPECIMENOrdering Facility: [facility] Address: [address] [place] [address] Performed By: #### 1 4979-9 ####[facility] LABIA [id number] [place] [address] [place] Bacteria Spec Resp Culton Bacteria identified Respiratory culture Nom (Unsp spec) Abnormal [facility] Comment on above: Performed By: #### 3 2355-0 ####[facility] LABCLIA [id number] [place] [address] [place] CBC W Auto Differential pane l (Bld)on 10-15-2023 Basophils (Bld) [#/Vol] 0.07 10*3/uL Normal <0.11 [facility] Comment on above: Order Comment: Speci men Type: BLOOD SPECIMENOrdering Facility: [facility] Address: [address] [place] [address] Performed By: #### 5 7021-8, 4536-7 ####[facility] LABCLIA [id number] [place] [address] [place] Basophils/100 WBC (Bld) 0.8 % Normal [facility] Comment on above: Order Comment: Speci men Type: BLOOD SPECIMENOrdering Facility: [facility] Address: [address] [place] [address] Performed By: #### 5 7021-8, 4536-7 ####[facility] LABCLIA [id number] [place] [address] [place] Differential cell count method Nom (Bld) Auto Normal [facility] Comment on above: Order Comment: Speci men Type: BLOOD SPECIMENOrdering Facility: [facility] Address: [address] [place] [address] Performed By: #### 5 7021-8, 7 ####[facility] LABCLIA [id number] [place] [address] [place] Eosinophils (Bld) [#/Vol] 0.26 10*3/uL Normal <0.46 [facility] Comment on above: Order Comment: Speci men Type: BLOOD SPECIMENOrdering Facility: [facility] Address: [address] [place] [address] Performed By: #### 5 7021-8, 4536-7 ####[facility] LABCLIA [id number] [place] [address] [place] Eosinophils/100 WBC (Bld) 3.0 % Normal [facility] Comment on above: Order Comment: Speci men Type: BLOOD SPECIMENOrdering Facility: [facility] Address: [address] [place] [address] Performed By: #### 5 7021-8, 4537-7 ####[facility] LABCLIA [id number] [place] [address] [place] Erythrocyte distribution width (RBC) [Ratio] 18.2 % High 11.5-15.0 [facility] Comment on above: Order Comment: Speci men Type: BLOOD SPECIMENOrdering Facility: [facility] Address: [address] [place] [address] Performed By: #### 5 7021-8, 4537-7 ####[facility] LABCLIA [id number] [place] [address] [place] Hematocrit (Bld) [Volume fraction] 32.3 % Low 39.0-51.0 [facility] Comment on above: Order Comment: Speci men Type: BLOOD SPECIMENOrdering Facility: [facility] Address: [address] [place] [address] Performed By: #### 5 7021-8, 4537-7 ####[facility] LABCLIA [id number] [place] [address] [place] Hemoglobin (Bld) [Mass/Vol] 9.6 g/dL Low 13.0-17.0 [facility] Comment on above: Order Comment: Speci men Type: BLOOD SPECIMENOrdering Facility: [facility] Address: [address] [place] [address] Performed By: #### 5 7021-8, 4537-7 ####[facility] LABCLIA [id number] [place] [address] [place] Immature granulocytes (Bld) [#/Vol] 0.07 10*3/uL Normal <0.10 [facility] Comment on above: Order Comment: Speci men Type: BLOOD SPECIMENOrdering Facility: [facility] Address: [address] [place] [address] Performed By: #### 5 7021-8, 4536-7 ####[facility] LABCLIA [id number] [place] [address] [place] Immature granulocytes/100 WBC (Bld) 0.8 % Normal [facility] Comment on above: Order Comment: Speci men Type: BLOOD SPECIMENOrdering Facility: [facility] Address: [address] [place] [address] Performed By: #### 5 7021-8, 7 ####[facility] LABCLIA [id number] [place] [address] [place] Lymphocytes (Bld) [#/Vol] 2.35 10*3/uL Normal 1.00-4.00 [facility] Comment on above: Order Comment: Speci men Type: BLOOD SPECIMENOrdering Facility: [facility] Address: [address] [place] [address] Performed By: #### 5 7021-8, 7 ####[facility] LABCLIA [id number] [place] [address] [place] Lymphocytes/100 WBC (Bld) 27.5 % Normal [facility] Comment on above: Order Comment: Speci men Type: BLOOD SPECIMENOrdering Facility: [facility] Address: [address] [place] [address] Performed By: #### 5 7021-8, 4536-7 ####[facility] LABCLIA [id number] [place] [address] [place] MCH (RBC) [Entitic mass] 24.9 pg Low 26.0-34.0 [facility] Comment on above: Order Comment: Speci men Type: BLOOD SPECIMENOrdering Facility: [facility] Address: [address] [place] [address] Performed By: #### 5 7021-8, 4536-7 ####[facility] LABIA [id number] [place] [address] [place] MCHC (RBC) [Mass/Vol] 29.7 g/dL Low 30.5-36.0 [facility] Comment on above: Order Comment: Speci men Type: BLOOD SPECIMENOrdering Facility: [facility] Address: [address] [place] [address] Performed By: #### 5 7021-8, 4536-7 ####[facility] LABIA [id number] [place] [address] [place] MCV (RBC) [Entitic vol] 83.9 fL Normal 80.0-100.0 [facility] Comment on above: Order Comment: Speci men Type: BLOOD SPECIMENOrdering Facility: [facility] Address: [address] [place] [address] Performed By: #### 5 7021-8, 4536-7 ####[facility] LABIA [id number] [place] [address] [place] Monocytes (Bld) [#/Vol] 0.48 10*3/uL Normal <0.87 [facility] Comment on above: Order Comment: Speci men Type: BLOOD SPECIMENOrdering Facility: [facility] Address: [address] [place] [address] Performed By: #### 5 7021-8, 4536-7 ####[facility] LABIA [id number] [place] [address] [place] Monocytes/100 WBC (Bld) 5.6 % Normal [facility] Comment on above: Order Comment: Speci men Type: BLOOD SPECIMENOrdering Facility: [facility] Address: [address] [place] [address] Performed By: #### 5 7021-8, 7-7 ####[facility] LABCLIA [id number] [address] [address] [place] Neutrophils (Bld) [#/Vol] 5.31 10*3/uL Normal 1.45-7.50 [facility] Comment on above: Order Comment: Speci men Type: BLOOD SPECIMENOrdering Facility: [facility] Address: [address] [place] [address] Performed By: #### 5 7021-8, 4536-7 ####[facility] LABCLIA [id number] [place] [address] [place] Neutrophils/100 WBC (Bld) 62.3 % Normal [facility] Comment on above: Order Comment: Speci men Type: BLOOD SPECIMENOrdering Facility: [facility] Address: [address] [place] [address] Performed By: #### 5 7021-8, 4536-7 ####[facility] LABCLIA [id number] [place] [address] [place] Nucleated RBC (Bld) [#/Vol] 10*3/uL Normal <0.01 [facility] Comment on above: Order Comment: Speci men Type: BLOOD SPECIMENOrdering Facility: [facility] Address: [address] [place] [address] Performed By: #### 5 7021-8, 4536-7 ####[facility] LABCLIA [id number] [place] [address] [place] Nucleated RBC/100 WBC (Bld) [Ratio] 0.0 /100 WBC Normal [facility] Comment on above: Order Comment: Speci men Type: BLOOD SPECIMENOrdering Facility: [facility] Address: [address] [place] [address] Performed By: #### 5 7021-8, 7-7 ####[facility] LABCLIA [id number] [place] [address] [place] Platelet mean volume (Bld) [Entitic vol] 10.1 fL Normal 9.0-12.7 [facility] Comment on above: Order Comment: Speci men Type: BLOOD SPECIMENOrdering Facility: [facility] Address: [address] [place] [address] Performed By: #### 5 7021-8, 4537-7 ####[facility] LABCLIA [id number] [place] [address] [place] Platelets (Bld) [#/Vol] 438 10*3/uL High 150-400 [facility] Comment on above: Order Comment: Speci men Type: BLOOD SPECIMENOrdering Facility: [facility] Address: [address] [place] [address] Performed By: #### 5 7021-8, 4537-7 ####[facility] LABCLIA [id number] [place] [address] [place] RBC (Bld) [#/Vol] 3.85 10*6/uL Low 4.20-6.00 [facility] Comment on above: Order Comment: Speci men Type: BLOOD SPECIMENOrdering Facility: [facility] Address: [address] [place] [address] Performed By: #### 5 7021-8, 4537-7 ####[facility] LABCLIA [id number] [place] [address] [place] WBC (Bld) [#/Vol] 8.54 10*3/uL Normal 3.70-11.00 [facility] Comment on above: Order Comment: Speci men Type: BLOOD SPECIMENOrdering Facility: [facility] Address: [address] [place] [address] Performed By: #### 5 7021-8, 4537-7 ####[facility] LABCLIA [id number] [place] [address] [place] CBC panel Auto (Bld)on 10-15 Erythrocyte distribution width (RBC) [Ratio] 17.9 % High 11.5-15.0 [facility] Comment on above: Order Comment: Speci men Type: BLOOD SPECIMENOrdering Facility: [facility] Address: [address] [place] [address] Performed By: #### 5 8410-2 ####[facility] LABCLIA [id number] [place] [address] [place] Hematocrit (Bld) [Volume fraction] 32.4 % Low 39.0-51.0 [facility] Comment on above: Order Comment: Speci men Type: BLOOD SPECIMENOrdering Facility: [facility] Address: [address] [place] [address] Performed By: #### 5 8410-2 ####[facility] LABIA [id number] [place] [address] [place] Hemoglobin (Bld) [Mass/Vol] 9.6 g/dL Low 13.0-17.0 [facility] Comment on above: Order Comment: Speci men Type: BLOOD SPECIMENOrdering Facility: [facility] Address: [address] [place] [address] Performed By: #### 5 8410-2 ####[facility] LABIA [id number] [place] [address] [place] MCH (RBC) [Entitic mass] 24.7 pg Low 26.0-34.0 [facility] Comment on above: Order Comment: Speci men Type: BLOOD SPECIMENOrdering Facility: [facility] Address: [address] [place] [address] Performed By: #### 5 8410-2 ####[facility] LABCLIA [id number] [place] [address] [place] MCHC (RBC) [Mass/Vol] 29.6 g/dL Low 30.5-36.0 [facility] Comment on above: Order Comment: Speci men Type: BLOOD SPECIMENOrdering Facility: [facility] Address: [address] [place] [address] Performed By: #### 5 8410-2 ####[facility] [id number] [place] [address] [place] MCV (RBC) [Entitic vol] 83.3 fL Normal 80.0-100.0 [facility] Comment on above: Order Comment: Speci men Type: BLOOD SPECIMENOrdering Facility: [facility] Address: [address] [place] [address] Performed By: #### 5 8410-2 ####[facility] [id number] [place] [address] [place] Nucleated RBC (Bld) [#/Vol] 10*3/uL Normal <0.01 [facility] Comment on above: Order Comment: Speci men Type: BLOOD SPECIMENOrdering Facility: [facility] Address: [address] [place] [address] Performed By: #### 5 8410-2 ####[facility] [id number] [place] [address] [place] Platelet mean volume (Bld) [Entitic vol] 10.8 fL Normal 9.0-12.7 [facility] Comment on above: Order Comment: Speci men Type: BLOOD SPECIMENOrdering Facility: [facility] Address: [address] [place] [address] Performed By: #### 5 8410-2 ####[facility] LABIA [id number] [place] [address] [place] Platelets (Bld) [#/Vol] 475 10*3/uL High 150-400 [facility] Comment on above: Order Comment: Speci men Type: BLOOD SPECIMENOrdering Facility: [facility] Address: [address] [place] [address] Performed By: #### 5 8410-2 ####[facility] LABIA [id number] [address] [address] [place] RBC (Bld) [#/Vol] 3.89 10*6/uL Low 4.20-6.00 [facility] Comment on above: Order Comment: Speci men Type: BLOOD SPECIMENOrdering Facility: [facility] Address: [address] [place] [address] Performed By: #### 5 8410-2 ####[facility] LABIA [id number] [address] [address] [place] WBC (Bld) [#/Vol] 5.56 10*3/uL Normal 3.70-11.00 [facility] Comment on above: Order Comment: Speci men Type: BLOOD SPECIMENOrdering Facility: [facility] Address: [address] [place] [address] Performed By: #### 5 8410-2 ####[facility] [id number] [place] [id number] [place] CONSULTon 10-15-2023 CONSULT Normal [facility] CONSULT PROGon 10-15-2023 CONSULT PROG Normal [facility] Comprehensive metabolic 2000 panelon 10-15-2023 Albumin [Mass/Vol] 2.5 g/dL Low 3.9-4.9 [facility] Comment on above: Order Comment: Speci men Type: BLOOD SPECIMENOrdering Facility: [facility] Address: [address] [place] [address] Performed By: #### 2 4323-8, 2777-1, 79151-3 ####[facility] [id number] [place] [address] [place] ALP [Catalytic activity/Vol] 960 U/L High 38-113 [facility] Comment on above: Order Comment: Speci men Type: BLOOD SPECIMENOrdering Facility: [facility] Address: [address] [place] [address] Performed By: #### 2 4323-8, 27703-09, ####[facility] LABCLIA [id number] [address] [address] [place] ALT [Catalytic activity/Vol] 353 U/L High 10-54 [facility] Comment on above: Order Comment: Speci men Type: BLOOD SPECIMENOrdering Facility: [facility] Address: [address] [place] [address] Performed By: #### 2 4323-8, 27703-09, ####[facility] LABCLIA [id number] [place] [address] [place] Anion gap [Moles/Vol] 7 mmol/L Low 9-18 [facility] Comment on above: Order Comment: Speci men Type: BLOOD SPECIMENOrdering Facility: [facility] Address: [address] [place] [address] Performed By: #### 2 4323-8, 2776-09, ####[facility] LABIA [id number] [place] [address] [place] AST [Catalytic activity/Vol] 370 U/L High 14-40 [facility] Comment on above: Order Comment: Speci men Type: BLOOD SPECIMENOrdering Facility: [facility] Address: [address] [place] [address] Performed By: #### 2 4323-8, 27703-09, ####[facility] LABIA [id number] [address] [address] [place] Bilirubin [Mass/Vol] 0.3 mg/dL Normal 0.2-1.3 [facility] Comment on above: Order Comment: Speci men Type: BLOOD SPECIMENOrdering Facility: [facility] Address: [address] [place] [address] Performed By: #### 2 4323-8, 27703-09, ####[facility] LABCLIA [id number] [facility] [address] [address] [place] Calcium [Mass/Vol] 8.7 mg/dL Normal 8.5-10.2 [facility] Comment on above: Order Comment: Speci men Type: BLOOD SPECIMENOrdering Facility: [facility] Address: [address] [place] [address] Performed By: #### 2 4323-8, 27703-09, ####[facility] LABCLIA [id number] [facility] [address] [address] [place] Chloride [Moles/Vol] 100 mmol/L Normal 97-105 [facility] Comment on above: Order Comment: Speci men Type: BLOOD SPECIMENOrdering Facility: [facility] Address: [address] [place] [address] Performed By: #### 2 4323-8, 27703-09, ####[facility] LABCLIA [id number] [place] [id number] [place] CO2 [Moles/Vol] 30 mmol/L Normal 22-30 [facility] Comment on above: Order Comment: Speci men Type: BLOOD SPECIMENOrdering Facility: [facility] Address: [address] [place], [place] [address] Performed By: #### 2 4323-8, 27703-09, ####[facility] LABCLIA [id number] [facility] [address] [address] [place] Creatinine [Mass/Vol] 0.41 mg/dL Low 0.73-1.22 [facility] Comment on above: Order Comment: Speci men Type: BLOOD SPECIMENOrdering Facility: [facility] Address: [address] [place], [place] [address] Performed By: #### 2 4323-8, 2777, ####[facility] LABCLIA [id number] [place] [address] [place] Creatinine and Glomerular filtration rate.predicted panel (S/P/Bld) 141 mL/min/1.73m??? Normal >=60 [facility] Comment on above: Order Comment: Darwin schwarz Type: BLOOD SPECIMENOrdering Facility: [facility] Address: [address] [place] [address] Result Comment: Rae mated Glomerular Filtration Rate [...] GFR. Performed By: #### 2 4323-8, 2777-, 25588-7 ####[facility] LABCLIA [id number] [place] [address] [place] Glucose [Mass/Vol] 133 mg/dL High 74-99 [facility] Comment on above: Order Comment: Darwin schwarz Type: BLOOD SPECIMENOrdering Facility: [facility] Address: [address] [place] [address] Result Comment: The [place] [employer] (ADA) provides guidance for cutoff [...] Standards of Medical Care in Diabetes 2016, [place] [employer]. Diabetes Care. 2016.39(Suppl 1). Performed By: #### 2 4323-8, 2777-1, 04184-3 ####[facility] LABCLIA [id number] [place] [id number] [place] Potassium [Moles/Vol] 3.8 mmol/L Normal 3.7-5.1 [facility] Comment on above: Order Comment: Speci men Type: BLOOD SPECIMENOrdering Facility: [facility] Address: [address] [place] [address] Performed By: #### 2 4323-8, 1, ####[facility] LABCLIA [id number] [place] [address] [place] Protein [Mass/Vol] 5.4 g/dL Low 6.3-8.0 [facility] Comment on above: Order Comment: Speci men Type: BLOOD SPECIMENOrdering Facility: [facility] Address: [address] [place] [address] Performed By: #### 2 4323-8, 2776-09, ####[facility] LABCLIA [id number] [place] [address] [place] Sodium [Moles/Vol] 137 mmol/L Normal 136-144 [facility] Comment on above: Order Comment: Speci men Type: BLOOD SPECIMENOrdering Facility: [facility] Address: [address] [place] [address] Performed By: #### 2 4323-8, 2776-09, ####[facility] LABCLIA [id number] [place] [id number] [place] Urea nitrogen [Mass/Vol] 6 mg/dL Low 9-24 [facility] Comment on above: Order Comment: Speci men Type: BLOOD SPECIMENOrdering Facility: [facility] Address: [address] [place] [address] Performed By: #### 2 4323-8, 2776-09, ####[facility] LABCLIA [id number] [address] [address] [place] ESR Westergren method (Bld) [Velocity]on 10-15-2023 ESR (Bld) [Velocity] 52 mm/h High 0-15 [facility] Comment on above: Order Comment: Speci men Type: BLOOD SPECIMENOrdering Facility: [facility] Address: [address] [place] [address] Performed By: #### 5 7021-8, 4537-7 ####[facility] LABIA [id number] [place] [address] [place] Gas and Carbon monoxide pane l (BldV)on 10-15-2023 Base excess Calc (BldV) [Moles/Vol] 6 mmol/L High 0-2 [facility] Comment on above: Order Comment: Speci men Type: VENOUS BLOOD SPECIMENOrdering Facility: [facility] Address: [address] [place] [address] Performed By: #### 2 4344-4 ####[facility] LABIA [id number] [place] [address] [place] Body temperature 98.6 [degF] Normal [facility] Comment on above: Order Comment: Speci men Type: VENOUS BLOOD SPECIMENOrdering Facility: [facility] Address: [address] [place] [address] Performed By: #### 2 4344-4 ####[facility] LABIA [id number] [place] [address] [place] Calcium.ionized (Bld) [Mass/Vol] 1.22 mmol/L Normal 1.08-1.30 [facility] Comment on above: Order Comment: Speci men Type: VENOUS BLOOD SPECIMENOrdering Facility: [facility] Address: [address] [place] [address] Performed By: #### 2 4344-4 ####[facility] LABIA [id number] [place] [address] [place] Calcium.ionized adjusted to pH 7.4 (BldA) [Moles/Vol] 1.21 mmol/L Normal 1.08-1.30 [facility] Comment on above: Order Comment: Speci men Type: VENOUS BLOOD SPECIMENOrdering Facility: [facility] Address: [address] [place] [address] Performed By: #### 2 4344-4 ####[facility] LABCLIA [id number] [place] [address] [place] Carboxyhemoglobin (BldV) [Mass fraction] 1.5 % Normal 0.0-2.0 [facility] Comment on above: Order Comment: Speci men Type: VENOUS BLOOD SPECIMENOrdering Facility: [facility] Address: [address] [place] [address] Result Comment: Carb oxyhemoglobin Reference Range for Smokers: 2.0-8.0% Performed By: #### 2 4344-4 ####[facility] LABCLIA [id number] [place] [address] [place] CO2 (BldV) [Partial pressure] 52 mm[Hg] Normal 42-55 [facility] Comment on above: Order Comment: Speci men Type: VENOUS BLOOD SPECIMENOrdering Facility: [facility] Address: [address] [place] [address] Performed By: #### 2 4344-4 ####[facility]CLIA [id number] [place] [address] [place] FIO2 30 % Normal [facility] Comment on above: Order Comment: Speci men Type: VENOUS BLOOD SPECIMENOrdering Facility: [facility] Address: [address] [place] [address] Performed By: #### 2 4344-4 ####[facility] LABCLIA [id number] [place] [address] [place] Glucose [Mass/Vol] 111 mg/dL High 60-105 [facility] Comment on above: Order Comment: Speci men Type: VENOUS BLOOD SPECIMENOrdering Facility: [facility] Address: [address] [place] [address] Performed By: #### 2 4344-4 ####[facility] LABCLIA [id number] [place] [address] [place] HCO3 (Bld) [Moles/Vol] 32 mmol/L High 24-28 [facility] Comment on above: Order Comment: Speci men Type: VENOUS BLOOD SPECIMENOrdering Facility: [facility] Address: [address] [place] [address] Performed By: #### 2 4344-4 ####[facility]CLIA [id number] [place] [address] [place] Hematocrit (Bld) [Volume fraction] 31.0 % Low 39.0-51.0 [facility] Comment on above: Order Comment: Speci men Type: VENOUS BLOOD SPECIMENOrdering Facility: [facility] Address: [address] [place] [address] Performed By: #### 2 4344-4 ####[facility] LABIA [id number] [place] [address] [place] Hemoglobin (Bld) [Mass/Vol] 10.0 g/dL Low 13.0-17.0 [facility] Comment on above: Order Comment: Speci men Type: VENOUS BLOOD SPECIMENOrdering Facility: [facility] Address: [address] [place] [address] Performed By: #### 2 4344-4 ####[facility]CLIA [id number] [place] [address] [place] Lactate [Moles/Vol] 0.9 mmol/L Normal 0.5-2.2 [facility] Comment on above: Order Comment: Speci men Type: VENOUS BLOOD SPECIMENOrdering Facility: [facility] Address: [address] [place] [address] Performed By: #### 2 4344-4 ####[facility]CLIA [id number] [address] [address] [place] Methemoglobin (Bld) [Mass fraction] 0.8 % Normal 0.0-1.5 [facility] Comment on above: Order Comment: Speci men Type: VENOUS BLOOD SPECIMENOrdering Facility: [facility] Address: [address] [id number] Performed By: #### 2 4344-4 ####[facility]CLIA [id number] [address] [address] [place] O2 THERAPY Ventilator Normal [facility] Comment on above: Order Comment: Speci men Type: VENOUS BLOOD SPECIMENOrdering Facility: [facility] Address: [address] [place] [address] Performed By: #### 2 4344-4 ####[facility]CLIA [id number] [place] [address] [place] Oxygen (BldV) [Partial pressure] 51 mm[Hg] High 35-45 [facility] Comment on above: Order Comment: Speci men Type: VENOUS BLOOD SPECIMENOrdering Facility: [facility] Address: [address] [id number] Performed By: #### 2 4344-4 ####[facility] LABCLIA [id number] [address] [address] [place] Oxygen saturation in Venous blood 83 % Normal 60-85 [facility] Comment on above: Order Comment: Speci men Type: VENOUS BLOOD SPECIMENOrdering Facility: [facility] Address: [address] [place] [address] Performed By: #### 2 4344-4 ####[facility]CLIA [id number] [address] [address] [place] Oxyhemoglobin (BldV) [Mass fraction] 82 % Normal 60-85 [facility] Comment on above: Order Comment: Speci men Type: VENOUS BLOOD SPECIMENOrdering Facility: [facility] Address: [address] [place] [address] Performed By: #### 2 4344-4 ####[facility]CLIA [id number] [place] [address] [place] PEEP/CPAP 5 cmH2O Normal [facility] Comment on above: Order Comment: Speci men Type: VENOUS BLOOD SPECIMENOrdering Facility: [facility] Address: [address] [place] [address] Performed By: #### 2 4344-4 ####[facility]CLIA [id number] [place] [address] [place] pH (BldV) 7.40 [pH] Normal 7.32-7.42 [facility] Comment on above: Order Comment: Speci men Type: VENOUS BLOOD SPECIMENOrdering Facility: [facility] Address: [address] [place] [address] Performed By: #### 2 4344-4 ####[facility] LABIA [id number] [place] [address] [place] Potassium [Moles/Vol] 3.9 mmol/L Normal 3.5-5.0 [facility] Comment on above: Order Comment: Speci men Type: VENOUS BLOOD SPECIMENOrdering Facility: [facility] Address: [address] [place] [address] Performed By: #### 2 4344-4 ####[facility]CLIA [id number] [place] [address] [place] Sodium [Moles/Vol] 137 mmol/L Normal 136-144 [facility] Comment on above: Order Comment: Speci men Type: VENOUS BLOOD SPECIMENOrdering Facility: [facility] Address: [address] [place] [address] Performed By: #### 2 4344-4 ####[facility] LABCLIA [id number] [place] [id number] [place] Magnesium SerPl-mCncon 10-15 Magnesium [Mass/Vol] 2.0 mg/dL Normal 1.7-2.3 [facility] Comment on above: Order Comment: Speci men Type: BLOOD SPECIMENOrdering Facility: [facility] Address: [address] [place] [address] Performed By: #### 2 4323-8, 2777-1, 00752-9 ####[facility]CLIA [id number] [place] [address] [place] PTT, ANTICOAGULANT THERAPYon 10-15-2023 aPTT Coag (PPP) [Time] 88.3 s High 23.0-32.4 [facility] Comment on above: Order Comment: Speci men Type: BLOOD SPECIMENOrdering Facility: [facility] Address: [address] [place] [address] Performed By: #### 1 4979-9, PTTAC ####[facility] LABCLIA [id number] [place] [address] [place] Phosphate SerPl-mCncon 10-15 Phosphate [Mass/Vol] 3.0 mg/dL Normal 2.7-4.8 [facility] Comment on above: Order Comment: Speci men Type: BLOOD SPECIMENOrdering Facility: [facility] Address: [address] [place] [address] Performed By: #### 2 4323-8, 277-1, ####[facility] LABCLIA [id number] [place] [address] [place] TYPE + SCREENon 10-15-2023 ABO A Normal [facility] Comment on above: Order Comment: Speci men Type: BLOOD SPECIMENOrdering Facility: [facility] Address: [address] [place] [address] Performed By: #### T SCR ####[facility] B[facility] BANKCLIA [id number] [place] [address] [place] HISTORICAL AB SCR STATUS Negative Normal [facility] Comment on above: Order Comment: Speci men Type: BLOOD SPECIMENOrdering Facility: [facility] Address: [address] [place] [address] Performed By: #### T SCR ####[facility] BANKCLIA [id number] [address] [address] [place] Rh Nom (Bld) Positive Normal [facility] Comment on above: Order Comment: Speci men Type: BLOOD SPECIMENOrdering Facility: [facility] Address: [address] [place] [address] Performed By: #### T SCR ####[facility] BANKCLIA [id number] [place] [address] [place] [facility] TYPE AND SCREEN EXPIRATION 10/18/2023 23:59 Normal [facility] Comment on above: Order Comment: Speci men Type: BLOOD SPECIMENOrdering Facility: [facility] Address: [address] [place] [address] Performed By: #### T SCR ####[facility] BLO[facility] BANKCLIA [id number] [place] [address] [place] US ABD RIGHT UPPER QUADRANTo n 10-15-2023 US ABD RIGHT UPPER QUADRANT Normal [facility] US ABD SPLEEN -NBon 10-15-19 US ABD SPLEEN -NB Normal [facility] XR CHEST 1V FRONTAL PORTon 0 10-15-2023 XR CHEST 1V FRONTAL PORT Normal [facility] aPTT PPPon 10-15-2023 aPTT Coag (PPP) [Time] 67.1 s High 23.0-32.4 [facility] Comment on above: Order Comment: Speci men Type: BLOOD SPECIMENOrdering Facility: [facility] Address: [address] [place] [address] Performed By: #### 1 4979-9 ####[facility] LABCLIA [id number] [place] [address] [place] ALLIED HEALTHon 10-14-2023 ALLIED HEALTH Normal [facility] CASE MANAGEMon 10-14-2023 CASE MANAGEM Normal [facility] CASE MANAGEM Normal [facility] CASE MGT INIT ASSESon 2023 CASE MGT INIT ASSES Normal [facility] CNCOon 10-14-2023 CNCO Letter Text Normal [facility] GGT SerPl-cCncon 10-14-2023 Gamma glutamyl transferase [Catalytic activity/Vol] 272 U/L High 10-70 [facility] Comment on above: Order Comment: Speci men Type: BLOOD SPECIMENOrdering Facility: [facility] Address: [address] [place] [address] Performed By: #### 2 324-2 ####[facility] LABCLIA [id number] [place] [address] [place] MRI PELVIS WO/W IVCONon MRI PELVIS WO/W IVCON Normal [facility] NURSING PROGon 10-14-2023 NURSING PROG Normal [facility] PTT, ANTICOAGULANT THERAPYon 10-14-2023 aPTT Coag (PPP) [Time] 72.9 s High 23.0-32.4 [facility] Comment on above: Order Comment: Speci men Type: BLOOD SPECIMENOrdering Facility: [facility] Address: [address] [place] [address] Performed By: #### P TTAC ####[facility] LABCLIA [id number] [place] [address] [place] aPTT Coag (PPP) [Time] 72.2 s High 23.0-32.4 [facility] Comment on above: Order Comment: Speci men Type: BLOOD SPECIMENOrdering Facility: [facility] Address: [address] [place] [address] Performed By: #### P TTAC ####[facility]CLIA [id number] [place] [address] [place] THERAPY NTon 10-14-2023 THERAPY NT Normal [facility] CBC panel Auto (Bld)on 10-13 Erythrocyte distribution width (RBC) [Ratio] 18.2 % High 11.5-15.0 [facility] Comment on above: Order Comment: Speci men Type: BLOOD SPECIMENOrdering Facility: [facility] Address: [address] [place] [address] Performed By: #### 5 8410-2 ####[facility]CLIA [id number] [place] [address] [place] Hematocrit (Bld) [Volume fraction] 32.8 % Low 39.0-51.0 [facility] Comment on above: Order Comment: Speci men Type: BLOOD SPECIMENOrdering Facility: [facility] Address: [address] [place] [address] Performed By: #### 5 8410-2 ####[facility] LABCLIA [id number] [place] [address] [place] Hemoglobin (Bld) [Mass/Vol] 9.4 g/dL Low 13.0-17.0 [facility] Comment on above: Order Comment: Speci men Type: BLOOD SPECIMENOrdering Facility: [facility] Address: [address] [place] [address] Performed By: #### 5 8410-2 ####[facility] LABIA [id number] [place] [address] [place] MCH (RBC) [Entitic mass] 24.6 pg Low 26.0-34.0 [facility] Comment on above: Order Comment: Speci men Type: BLOOD SPECIMENOrdering Facility: [facility] Address: [address] [place] [address] Performed By: #### 5 8410-2 ####[facility] LABCLIA [id number] [place] [address] [place] MCHC (RBC) [Mass/Vol] 28.7 g/dL Low 30.5-36.0 [facility] Comment on above: Order Comment: Speci men Type: BLOOD SPECIMENOrdering Facility: [facility] Address: [address] [place] [address] Performed By: #### 5 8410-2 ####[facility] LABCLIA [id number] [place] [address] [place] MCV (RBC) [Entitic vol] 85.9 fL Normal 80.0-100.0 [facility] Comment on above: Order Comment: Speci men Type: BLOOD SPECIMENOrdering Facility: [facility] Address: [address] [place] [address] Performed By: #### 5 8410-2 ####[facility] LABIA [id number] [place] [address] [place] Nucleated RBC (Bld) [#/Vol] 10*3/uL Normal <0.01 [facility] Comment on above: Order Comment: Speci men Type: BLOOD SPECIMENOrdering Facility: [facility] Address: [address] [place] [address] Performed By: #### 5 8410-2 ####[facility] LABIA [id number] [place] [address] [place] Platelet mean volume (Bld) [Entitic vol] 10.9 fL Normal 9.0-12.7 [facility] Comment on above: Order Comment: Speci men Type: BLOOD SPECIMENOrdering Facility: [facility] Address: [address] [place] [address] Performed By: #### 5 8410-2 ####[facility] LABCLIA [id number] [place] [address] [place] Platelets (Bld) [#/Vol] 448 10*3/uL High 150-400 [facility] Comment on above: Order Comment: Speci men Type: BLOOD SPECIMENOrdering Facility: [facility] Address: [address] [place] [address] Performed By: #### 5 8410-2 ####[facility] LABIA [id number] [place] [address] [place] RBC (Bld) [#/Vol] 3.82 10*6/uL Low 4.20-6.00 [facility] Comment on above: Order Comment: Speci men Type: BLOOD SPECIMENOrdering Facility: [facility] Address: [address] [place] [address] Performed By: #### 5 8410-2 ####[facility] LABIA [id number] [place] [address] [place] WBC (Bld) [#/Vol] 8.07 10*3/uL Normal 3.70-11.00 [facility] Comment on above: Order Comment: Speci men Type: BLOOD SPECIMENOrdering Facility: [facility] Address: [address] [place] [address] Performed By: #### 5 8410-2 ####[facility] LABIA [id number] [place] [address] [place] Erythrocyte distribution width (RBC) [Ratio] 18.1 % High 11.5-15.0 [facility] Comment on above: Order Comment: Speci men Type: BLOOD SPECIMENOrdering Facility: [facility] Address: [address] [place] [address] Performed By: #### 5 8410-2 ####[facility] LABIA [id number] [place] [address] [place] Hematocrit (Bld) [Volume fraction] 31.1 % Low 39.0-51.0 [facility] Comment on above: Order Comment: Speci men Type: BLOOD SPECIMENOrdering Facility: [facility] Address: [address] [place] [address] Performed By: #### 5 8410-2 ####[facility] LABIA [id number] [place] [address] [place] Hemoglobin (Bld) [Mass/Vol] 9.0 g/dL Low 13.0-17.0 [facility] Comment on above: Order Comment: Speci men Type: BLOOD SPECIMENOrdering Facility: [facility] Address: [address] [place] [address] Performed By: #### 5 8410-2 ####[facility] LABIA [id number] [place] [address] [place] MCH (RBC) [Entitic mass] 24.7 pg Low 26.0-34.0 [facility] Comment on above: Order Comment: Speci men Type: BLOOD SPECIMENOrdering Facility: [facility] Address: [address] [place] [address] Performed By: #### 5 8410-2 ####[facility] LABCLIA [id number] [place] [address] [place] MCHC (RBC) [Mass/Vol] 28.9 g/dL Low 30.5-36.0 [facility] Comment on above: Order Comment: Speci men Type: BLOOD SPECIMENOrdering Facility: [facility] Address: [address] [place] [address] Performed By: #### 5 8410-2 ####[facility] LABIA [id number] [place] [address] [place] MCV (RBC) [Entitic vol] 85.2 fL Normal 80.0-100.0 [facility] Comment on above: Order Comment: Speci men Type: BLOOD SPECIMENOrdering Facility: [facility] Address: [address] [place] [address] Performed By: #### 5 8410-2 ####[facility] LABIA [id number] [place] [address] [place] Nucleated RBC (Bld) [#/Vol] 10*3/uL Normal <0.01 [facility] Comment on above: Order Comment: Speci men Type: BLOOD SPECIMENOrdering Facility: [facility] Address: [address] [place] [address] Performed By: #### 5 8410-2 ####[facility] LABCLIA [id number] [place] [address] [place] Platelet mean volume (Bld) [Entitic vol] 10.9 fL Normal 9.0-12.7 [facility] Comment on above: Order Comment: Speci men Type: BLOOD SPECIMENOrdering Facility: [facility] Address: [address] [place] [address] Performed By: #### 5 8410-2 ####[facility] LABCLIA [id number] [place] [address] [place] Platelets (Bld) [#/Vol] 433 10*3/uL High 150-400 [facility] Comment on above: Order Comment: Speci men Type: BLOOD SPECIMENOrdering Facility: [facility] Address: [address] [place] [address] Performed By: #### 5 8410-2 ####[facility] LABIA [id number] [place] [address] [place] RBC (Bld) [#/Vol] 3.65 10*6/uL Low 4.20-6.00 [facility] Comment on above: Order Comment: Speci men Type: BLOOD SPECIMENOrdering Facility: [facility] Address: [address] [place] [address] Performed By: #### 5 8410-2 ####[facility] LABCLIA [id number] [place] [address] [place] WBC (Bld) [#/Vol] 9.13 10*3/uL Normal 3.70-11.00 [facility] Comment on above: Order Comment: Speci men Type: BLOOD SPECIMENOrdering Facility: [facility] Address: [address] [place] [address] Performed By: #### 5 8410-2 ####[facility] LABCLIA [id number] [address] [address] [place] Comprehensive metabolic 2000 panelon 10-13-2023 Albumin [Mass/Vol] 2.4 g/dL Low 3.9-4.9 [facility] Comment on above: Order Comment: Speci men Type: BLOOD SPECIMENOrdering Facility: [facility] Address: [address] [place] [address] Performed By: #### 2 4323-8, 27703-09, ####[facility] LABCLIA [id number] [place] [id number] [place] ALP [Catalytic activity/Vol] 387 U/L High 38-113 [facility] Comment on above: Order Comment: Speci men Type: BLOOD SPECIMENOrdering Facility: [facility] Address: [address] [place] [address] Performed By: #### 2 4323-8, 2776-09, ####[facility] LABCLIA [id number] [address] [address] [place] ALT [Catalytic activity/Vol] 60 U/L High 10-54 [facility] Comment on above: Order Comment: Speci men Type: BLOOD SPECIMENOrdering Facility: [facility] Address: [address] [place] [address] Performed By: #### 2 4323-8, 2776-09, ####[facility] LABIA [id number] [address] [address] [place] Anion gap [Moles/Vol] 11 mmol/L Normal 9-18 [facility] Comment on above: Order Comment: Speci men Type: BLOOD SPECIMENOrdering Facility: [facility] Address: [address] [place], [place] [address] Performed By: #### 2 4323-8, 27703-09, ####[facility] LABCLIA [id number] [place] [address] [place] AST [Catalytic activity/Vol] 86 U/L High 14-40 [facility] Comment on above: Order Comment: Speci men Type: BLOOD SPECIMENOrdering Facility: [facility] Address: [address] [place] [address] Performed By: #### 2 4323-8, 27703-09, ####[facility] LABCLIA [id number] [place] [address] [place] Bilirubin [Mass/Vol] mg/dL Low 0.2-1.3 [facility] Comment on above: Order Comment: Speci men Type: BLOOD SPECIMENOrdering Facility: [facility] Address: [address] [place] [address] Performed By: #### 2 4323-8, 2776-09, ####[facility] LABCLIA [id number] [place] [address] [place] Calcium [Mass/Vol] 8.9 mg/dL Normal 8.5-10.2 [facility] Comment on above: Order Comment: Speci men Type: BLOOD SPECIMENOrdering Facility: [facility] Address: [address] [place] [address] Performed By: #### 2 4323-8, 2776-09, ####[facility] LABCLIA [id number] [place] [address] [place] Chloride [Moles/Vol] 103 mmol/L Normal 97-105 [facility] Comment on above: Order Comment: Speci men Type: BLOOD SPECIMENOrdering Facility: [facility] Address: [address] [place] [address] Performed By: #### 2 4323-8, 2776-09, ####[facility] LABCLIA [id number] [place] [id number] [place] CO2 [Moles/Vol] 25 mmol/L Normal 22-30 [facility] Comment on above: Order Comment: Darwin schwarz Type: BLOOD SPECIMENOrdering Facility: [facility] Address: [address] [place] [address] Performed By: #### 2 4323-8, 2777, ####[facility] LABCLIA [id number] [place] [address] [place] Creatinine [Mass/Vol] 0.40 mg/dL Low 0.73-1.22 [facility] Comment on above: Order Comment: Darwin schwarz Type: BLOOD SPECIMENOrdering Facility: [facility] Address: [address] [place] [address] Performed By: #### 2 4323-8, 27703-09, ####[facility] LABCLIA [id number] [place] [address] [place] Creatinine and Glomerular filtration rate.predicted panel (S/P/Bld) 142 mL/min/1.73m??? Normal >=60 [facility] Comment on above: Order Comment: Darwin schwarz Type: BLOOD SPECIMENOrdering Facility: [facility] Address: [address] [place] [address] Result Comment: Rae mated Glomerular Filtration Rate [...] GFR. Performed By: #### 2 4323-8, 2776-09, ####[facility] LABCLIA [id number] [place] [id number] [place] Glucose [Mass/Vol] 120 mg/dL High 74-99 [facility] Comment on above: Order Comment: Darwin men Type: BLOOD SPECIMENOrdering Facility: [facility] Address: [address] [place] [id number] Result Comment: The [place] [employer] (ADA) provides guidance for cutoff [...] Standards of Medical Care in Diabetes 2016, [place] [employer]. Diabetes Care. 2016.39(Suppl 1). Performed By: #### 2 4323-8, 2776-09, ####[facility] LABCLIA [id number] [place] [address] [place] Potassium [Moles/Vol] 3.8 mmol/L Normal 3.7-5.1 [facility] Comment on above: Order Comment: Speci men Type: BLOOD SPECIMENOrdering Facility: [facility] Address: [address] [place] [address] Performed By: #### 2 4323-8, 2776-09, ####[facility] LABCLIA [id number] [place] [address] [place] Protein [Mass/Vol] 5.5 g/dL Low 6.3-8.0 [facility] Comment on above: Order Comment: Speci men Type: BLOOD SPECIMENOrdering Facility: [facility] Address: [address] [id number] Performed By: #### 2 4323-8, 2776-09, ####[facility] LABCLIA [id number] [place] [id number] [place] Sodium [Moles/Vol] 139 mmol/L Normal 136-144 [facility] Comment on above: Order Comment: Speci men Type: BLOOD SPECIMENOrdering Facility: [facility] Address: [address] [place] [address] Performed By: #### 2 4323-8, 2776-09, ####[facility] LABCLIA [id number] [place] [id number] [place] Urea nitrogen [Mass/Vol] 9 mg/dL Normal 9-24 [facility] Comment on above: Order Comment: Speci men Type: BLOOD SPECIMENOrdering Facility: [facility] Address: [address] [place] [address] Performed By: #### 2 4323-8, 27703-09, ####[facility] LABCLIA [id number] [place] [address] [place] Albumin [Mass/Vol] 2.6 g/dL Low 3.9-4.9 [facility] Comment on above: Order Comment: Speci men Type: BLOOD SPECIMENOrdering Facility: [facility] Address: [address] [place] [address] Performed By: #### 2 4323-8 ####[facility] LABCLIA [id number] [place] [address] [place] ALP [Catalytic activity/Vol] 188 U/L High 38-113 [facility] Comment on above: Order Comment: Speci men Type: BLOOD SPECIMENOrdering Facility: [facility] Address: [address] [place] [address] Performed By: #### 2 4323-8 ####[facility] LABCLIA [id number] [place] [id number] [place] ALT [Catalytic activity/Vol] 18 U/L Normal 10-54 [facility] Comment on above: Order Comment: Speci men Type: BLOOD SPECIMENOrdering Facility: [facility] Address: [address] [place], [place] [address] Performed By: #### 2 4323-8 ####[facility] LABCLIA [id number] [place] [id number] [place] Anion gap [Moles/Vol] 8 mmol/L Low 9-18 [facility] Comment on above: Order Comment: Speci men Type: BLOOD SPECIMENOrdering Facility: [facility] Address: [address] [place] [address] Performed By: #### 2 4323-8 ####[facility] LABCLIA [id number] [place] [address] [place] AST [Catalytic activity/Vol] 9 U/L Low 14-40 [facility] Comment on above: Order Comment: Speci men Type: BLOOD SPECIMENOrdering Facility: [facility] Address: [address] [place] [address] Performed By: #### 2 4323-8 ####[facility] LABCLIA [id number] [place] [address] [place] Bilirubin [Mass/Vol] 0.2 mg/dL Normal 0.2-1.3 [facility] Comment on above: Order Comment: Speci men Type: BLOOD SPECIMENOrdering Facility: [facility] Address: [address] [place] [address] Performed By: #### 2 4323-8 ####[facility] LABCLIA [id number] [place] [address] [place] Calcium [Mass/Vol] 9.0 mg/dL Normal 8.5-10.2 [facility] Comment on above: Order Comment: Speci men Type: BLOOD SPECIMENOrdering Facility: [facility] Address: [address] [place] [address] Performed By: #### 2 4323-8 ####[facility] LABCLIA [id number] [place] [id number] [place] Chloride [Moles/Vol] 105 mmol/L Normal 97-105 [facility] Comment on above: Order Comment: Speci men Type: BLOOD SPECIMENOrdering Facility: [facility] Address: [address] [place] [address] Performed By: #### 2 4323-8 ####[facility]CLIA [id number] [place] [address] [place] CO2 [Moles/Vol] 28 mmol/L Normal 22-30 [facility] Comment on above: Order Comment: Speci men Type: BLOOD SPECIMENOrdering Facility: [facility] Address: [address] [place] [address] Performed By: #### 2 4323-8 ####[facility] LABIA [id number] [address] [place] Creatinine [Mass/Vol] 0.48 mg/dL Low 0.73-1.22 [facility] Comment on above: Order Comment: Speci men Type: BLOOD SPECIMENOrdering Facility: [facility] Address: [address] [place] [address] Performed By: #### 2 4323-8 ####[facility] LABIA [id number] [address] STATES OF [facility] Creatinine and Glomerular filtration rate.predicted panel (S/P/Bld) 135 mL/min/1.73m??? Normal >=60 [facility] Comment on above: Order Comment: Speci men Type: BLOOD SPECIMENOrdering Facility: [facility] Address: [address] [place] [address] Result Comment: Rae mated Glomerular Filtration Rate [...] actual GFR. Performed By: #### 2 4323-8 ####[facility] LABCLIA [id number] [place] [address] [place] Glucose [Mass/Vol] 115 mg/dL High 74-99 [facility] Comment on above: Order Comment: Speci men Type: BLOOD SPECIMENOrdering Facility: [facility] Address: [address] [place] [address] Result Comment: The [place] [employer] (ADA) provides guidance for cutoff [...] Standards of Medical Care in Diabetes 2016, [place] [employer]. Diabetes Care. 2016.39(Suppl 1). Performed By: #### 2 4323-8 ####[facility] LABCLIA [id number] [place] [address] [place] Potassium [Moles/Vol] 3.6 mmol/L Low 3.7-5.1 [facility] Comment on above: Order Comment: Speci men Type: BLOOD SPECIMENOrdering Facility: [facility] Address: [address] [place], [place] [address] Performed By: #### 2 4323-8 ####[facility] LABCLIA [id number] [place] [address] [place] Protein [Mass/Vol] 5.6 g/dL Low 6.3-8.0 [facility] Comment on above: Order Comment: Speci men Type: BLOOD SPECIMENOrdering Facility: [facility] Address: [address] [place] [address] Performed By: #### 2 4323-8 ####[facility] LABCLIA [id number] [place] [address] [place] Sodium [Moles/Vol] 141 mmol/L Normal 136-144 [facility] Comment on above: Order Comment: Speci men Type: BLOOD SPECIMENOrdering Facility: [facility] Address: [address] [place] [address] Performed By: #### 2 4323-8 ####[facility] LABCLIA [id number] [place] [address] [place] Urea nitrogen [Mass/Vol] 11 mg/dL Normal 9-24 [facility] Comment on above: Order Comment: Speci men Type: BLOOD SPECIMENOrdering Facility: [facility] Address: [address] [place] [address] Performed By: #### 2 4323-8 ####[facility] LABCLIA [id number] [place] [address] [place] Gas and Carbon monoxide pane l (BldV)on 10-13-2023 Base excess Calc (BldV) [Moles/Vol] 4 mmol/L High 0-2 [facility] Comment on above: Order Comment: Speci men Type: VENOUS BLOOD SPECIMENOrdering Facility: [facility] Address: [address] [place] [address] Performed By: #### 2 4344-4 ####[facility] LABCLIA [id number] [place] [address] [place] Body temperature 98.6 [degF] Normal [facility] Comment on above: Order Comment: Speci men Type: VENOUS BLOOD SPECIMENOrdering Facility: [facility] Address: [address] [place] [address] Performed By: #### 2 4344-4 ####[facility] LABCLIA [id number] [place] [address] [place] Calcium.ionized (Bld) [Mass/Vol] 1.26 mmol/L Normal 1.08-1.30 [facility] Comment on above: Order Comment: Speci men Type: VENOUS BLOOD SPECIMENOrdering Facility: [facility] Address: [address] [place] [address] Performed By: #### 2 4344-4 ####[facility] LABIA [id number] [place] [address] [place] Calcium.ionized adjusted to pH 7.4 (BldA) [Moles/Vol] 1.25 mmol/L Normal 1.08-1.30 [facility] Comment on above: Order Comment: Speci men Type: VENOUS BLOOD SPECIMENOrdering Facility: [facility] Address: [address] [place] [address] Performed By: #### 2 4344-4 ####[facility] LABIA [id number] [place] [address] [place] Carboxyhemoglobin (BldV) [Mass fraction] 1.5 % Normal 0.0-2.0 [facility] Comment on above: Order Comment: Speci men Type: VENOUS BLOOD SPECIMENOrdering Facility: [facility] Address: [address] [place] [address] Result Comment: Carb oxyhemoglobin Reference Range for Smokers: 2.0-8.0% Performed By: #### 2 4344-4 ####[facility] LABIA [id number] [place] [address] [place] CO2 (BldV) [Partial pressure] 49 mm[Hg] Normal 42-55 [facility] Comment on above: Order Comment: Speci men Type: VENOUS BLOOD SPECIMENOrdering Facility: [facility] Address: [address] [place] [address] Performed By: #### 2 4344-4 ####[facility] LABIA [id number] [place] [address] [place] FIO2 35 % Normal [facility] Comment on above: Order Comment: Speci men Type: VENOUS BLOOD SPECIMENOrdering Facility: [facility] Address: [address] [place] [address] Performed By: #### 2 4344-4 ####[facility] LABCLIA [id number] [place] [address] [place] Glucose [Mass/Vol] 117 mg/dL High 60-105 [facility] Comment on above: Order Comment: Speci men Type: VENOUS BLOOD SPECIMENOrdering Facility: [facility] Address: [address] [place] [address] Performed By: #### 2 4344-4 ####[facility] LABCLIA [id number] [place] [address] [place] HCO3 (Bld) [Moles/Vol] 29 mmol/L High 24-28 [facility] Comment on above: Order Comment: Speci men Type: VENOUS BLOOD SPECIMENOrdering Facility: [facility] Address: [address] [place] [address] Performed By: #### 2 4344-4 ####[facility] LABCLIA [id number] [place] [address] [place] Hematocrit (Bld) [Volume fraction] 28.2 % Low 39.0-51.0 [facility] Comment on above: Order Comment: Speci men Type: VENOUS BLOOD SPECIMENOrdering Facility: [facility] Address: [address] [place] [address] Performed By: #### 2 4344-4 ####[facility] LABCLIA [id number] [place] [address] [place] Hemoglobin (Bld) [Mass/Vol] 9.1 g/dL Low 13.0-17.0 [facility] Comment on above: Order Comment: Speci men Type: VENOUS BLOOD SPECIMENOrdering Facility: [facility] Address: [address] [place] [address] Performed By: #### 2 4344-4 ####[facility] LABCLIA [id number] [place] [address] [place] Lactate [Moles/Vol] 0.8 mmol/L Normal 0.5-2.2 [facility] Comment on above: Order Comment: Speci men Type: VENOUS BLOOD SPECIMENOrdering Facility: [facility] Address: [address] [place] [address] Performed By: #### 2 4344-4 ####[facility] LABCLIA [id number] [place] [address] [place] Methemoglobin (Bld) [Mass fraction] 0.7 % Normal 0.0-1.5 [facility] Comment on above: Order Comment: Speci men Type: VENOUS BLOOD SPECIMENOrdering Facility: [facility] Address: [address] [place] [address] Performed By: #### 2 4344-4 ####[facility] LABCLIA [id number] [place] [address] [place] O2 THERAPY Ventilator Normal [facility] Comment on above: Order Comment: Speci men Type: VENOUS BLOOD SPECIMENOrdering Facility: [facility] Address: [address] [place] [address] Performed By: #### 2 4344-4 ####[facility] LABCLIA [id number] [place] [address] [place] Oxygen (BldV) [Partial pressure] 50 mm[Hg] High 35-45 [facility] Comment on above: Order Comment: Speci men Type: VENOUS BLOOD SPECIMENOrdering Facility: [facility] Address: [address] [place] [address] Performed By: #### 2 4344-4 ####[facility] LABCLIA [id number] [place] [address] [place] Oxygen saturation in Venous blood 82 % Normal 60-85 [facility] Comment on above: Order Comment: Speci men Type: VENOUS BLOOD SPECIMENOrdering Facility: [facility] Address: [address] [place] [address] Performed By: #### 2 4344-4 ####[facility] LABCLIA [id number] [place] [address] [place] Oxyhemoglobin (BldV) [Mass fraction] 80 % Normal 60-85 [facility] Comment on above: Order Comment: Speci men Type: VENOUS BLOOD SPECIMENOrdering Facility: [facility] Address: [address] [place] [address] Performed By: #### 2 4344-4 ####[facility] LABCLIA [id number] [place] [address] [place] PEEP/CPAP 5 cmH2O Normal [facility] Comment on above: Order Comment: Speci men Type: VENOUS BLOOD SPECIMENOrdering Facility: [facility] Address: [address] [place] [address] Performed By: #### 2 4344-4 ####[facility] LABCLIA [id number] [place] [address] [place] pH (BldV) 7.39 [pH] Normal 7.32-7.42 [facility] Comment on above: Order Comment: Speci men Type: VENOUS BLOOD SPECIMENOrdering Facility: [facility] Address: [address] [place] [address] Performed By: #### 2 4344-4 ####[facility] LABCLIA [id number] [place] [address] [place] Potassium [Moles/Vol] 3.5 mmol/L Normal 3.5-5.0 [facility] Comment on above: Order Comment: Speci men Type: VENOUS BLOOD SPECIMENOrdering Facility: [facility] Address: [address] [place] [address] Performed By: #### 2 4344-4 ####[facility] LABCLIA [id number] [place] [id number] [place] Sodium [Moles/Vol] 140 mmol/L Normal 136-144 [facility] Comment on above: Order Comment: Speci men Type: VENOUS BLOOD SPECIMENOrdering Facility: [facility] Address: [address] [place] [address] [place] [id number] Performed By: #### 2 4344-4 ####[facility] LABIA [id number] [place] [id number] [place] Magnesium SerPl-mCncon 10-13 Magnesium [Mass/Vol] 1.8 mg/dL Normal 1.7-2.3 [facility] Comment on above: Order Comment: Speci men Type: BLOOD SPECIMENOrdering Facility: [facility] Address: [address] [place] [address] Performed By: #### 2 4323-8, 2777-, ####[facility] LABIA [id number] [place] [address] [place] PTT, ANTICOAGULANT THERAPYon 10-13-2023 aPTT Coag (PPP) [Time] 33.6 s High 23.0-32.4 [facility] Comment on above: Order Comment: Speci men Type: BLOOD SPECIMENOrdering Facility: [facility] Address: [address] [place] [address] Performed By: #### P TTAC ####[facility] LABIA [id number] [place] [id number] [place] Phosphate SerPl-mCncon 10-13 Phosphate [Mass/Vol] 2.9 mg/dL Normal 2.7-4.8 [facility] Comment on above: Order Comment: Speci men Type: BLOOD SPECIMENOrdering Facility: [facility] Address: [address] [place] [address] Performed By: #### 2 4323-8, 2777, ####[facility] LABIA [id number] [place] [id number] [place] TYPE + SCREENon 10-13-2023 ABO A Normal [facility] Comment on above: Order Comment: Speci men Type: BLOOD SPECIMENOrdering Facility: [facility] Address: [address] [place] [address] Performed By: #### T SCR ####[facility] BANKCLIA [id number] [place] [id number] [place] HISTORICAL AB SCR STATUS Negative Normal [facility] Comment on above: Order Comment: Speci men Type: BLOOD SPECIMENOrdering Facility: [facility] Address: [address] [place] [address] Performed By: #### T SCR ####[facility] BANKCLIA [id number] [place] [address] [place] Rh Nom (Bld) Positive Normal [facility] Comment on above: Order Comment: Speci men Type: BLOOD SPECIMENOrdering Facility: [facility] Address: [address] [place] [address] Performed By: #### T SCR ####[facility]LO[facility] BANKCLIA [id number] [place] [address] [place] TYPE AND SCREEN EXPIRATION 10/16/2023 23:59 Normal [facility] Comment on above: Order Comment: Speci men Type: BLOOD SPECIMENOrdering Facility: [facility] Address: [address] [place] [address] Performed By: #### T SCR ####[facility]LO[facility] BANKCLIA [id number] [place] [address] [place] aPTT PPPon 10-13-2023 aPTT Coag (PPP) [Time] 88.5 s High 23.0-32.4 [facility] Comment on above: Order Comment: Speci men Type: BLOOD SPECIMENOrdering Facility: [facility] Address: [address] [place] [address] Performed By: #### 1 4979-9 ####[facility] LABCLIA [id number] [place] [address] [place] aPTT Coag (PPP) [Time] 36.7 s High 23.0-32.4 [facility] Comment on above: Order Comment: Speci men Type: BLOOD SPECIMENOrdering Facility: [facility] Address: [address] [place] [address] Performed By: #### 1 4979-9 ####[facility] LABCLIA [id number] [place] [address] [place] aPTT Coag (PPP) [Time] 33.3 s High 23.0-32.4 [facility] Comment on above: Order Comment: Speci men Type: BLOOD SPECIMENOrdering Facility: [facility] Address: [address] [place] [address] Performed By: #### 1 4979-9 ####[facility] LABCLIA [id number] [place] [address] [place] CBC panel Auto (Bld)on 10-12 Erythrocyte distribution width (RBC) [Ratio] 18.3 % High 11.5-15.0 [facility] Comment on above: Order Comment: Speci men Type: BLOOD SPECIMENOrdering Facility: [facility] Address: [address] [place] [address] Performed By: #### 5 8410-2 ####[facility] LABCLIA [id number] [place] [address] [place] Hematocrit (Bld) [Volume fraction] 30.4 % Low 39.0-51.0 [facility] Comment on above: Order Comment: Speci men Type: BLOOD SPECIMENOrdering Facility: [facility] Address: [address] [place] [address] Performed By: #### 5 8410-2 ####[facility] LABCLIA [id number] [place] [address] [place] Hemoglobin (Bld) [Mass/Vol] 8.7 g/dL Low 13.0-17.0 [facility] Comment on above: Order Comment: Speci men Type: BLOOD SPECIMENOrdering Facility: [facility] Address: [address] [place] [address] Performed By: #### 5 8410-2 ####[facility] LABIA [id number] [place] [address] [place] MCH (RBC) [Entitic mass] 24.4 pg Low 26.0-34.0 [facility] Comment on above: Order Comment: Speci men Type: BLOOD SPECIMENOrdering Facility: [facility] Address: [address] [place] [address] Performed By: #### 5 8410-2 ####[facility] [id number] [place] [address] [place] MCHC (RBC) [Mass/Vol] 28.6 g/dL Low 30.5-36.0 [facility] Comment on above: Order Comment: Speci men Type: BLOOD SPECIMENOrdering Facility: [facility] Address: [address] [place] [address] Performed By: #### 5 8410-2 ####[facility] LABIA [id number] [place] [address] [place] MCV (RBC) [Entitic vol] 85.4 fL Normal 80.0-100.0 [facility] Comment on above: Order Comment: Speci men Type: BLOOD SPECIMENOrdering Facility: [facility] Address: [address] [place] [address] Performed By: #### 5 8410-2 ####[facility] LABIA [id number] [place] [address] [place] Nucleated RBC (Bld) [#/Vol] 10*3/uL Normal <0.01 [facility] Comment on above: Order Comment: Speci men Type: BLOOD SPECIMENOrdering Facility: [facility] Address: [address] [place] [address] Performed By: #### 5 8410-2 ####[facility] LABCLIA [id number] [address] [address] [place] Platelet mean volume (Bld) [Entitic vol] 11.0 fL Normal 9.0-12.7 [facility] Comment on above: Order Comment: Speci men Type: BLOOD SPECIMENOrdering Facility: [facility] Address: [address] [place] [address] Performed By: #### 5 8410-2 ####[facility] LABIA [id number] [place] [address] [place] Platelets (Bld) [#/Vol] 467 10*3/uL High 150-400 [facility] Comment on above: Order Comment: Speci men Type: BLOOD SPECIMENOrdering Facility: [facility] Address: [address] [place] [address] Performed By: #### 5 8410-2 ####[facility] LABIA [id number] [place] [address] [place] RBC (Bld) [#/Vol] 3.56 10*6/uL Low 4.20-6.00 [facility] Comment on above: Order Comment: Speci men Type: BLOOD SPECIMENOrdering Facility: [facility] Address: [address] [place] [address] Performed By: #### 5 8410-2 ####[facility] LABIA [id number] [place] [address] [place] WBC (Bld) [#/Vol] 9.91 10*3/uL Normal 3.70-11.00 [facility] Comment on above: Order Comment: Speci men Type: BLOOD SPECIMENOrdering Facility: [facility] Address: [address] [place] [address] Performed By: #### 5 8410-2 ####[facility] LABIA [id number] [place] [address] [place] CONSULTon 10-12-2023 CONSULT Normal [facility] Comp Metab 2000 Pnl SerPlon 10-12-2023 Sodium [Moles/Vol] 143 mmol/L Normal 136-144 [facility] Comment on above: Order Comment: Speci men Type: BLOOD SPECIMENOrdering Facility: [facility] Address: [address] [place] [address] Performed By: #### 2 4323-8 ####[facility] LABCLIA [id number] [place] [address] [place] Order Comment: Speci men Type: VENOUS BLOOD SPECIMENOrdering Facility: [facility] Address: [address] [place] [address] Performed By: #### 2 4344-4 ####[facility] LABCLIA [id number] [place] [address] [place] Comprehensive metabolic 2000 panelon 10-12-2023 Albumin [Mass/Vol] 2.7 g/dL Low 3.9-4.9 [facility] Comment on above: Order Comment: Speci men Type: BLOOD SPECIMENOrdering Facility: [facility] Address: [address] [place] [address] Performed By: #### 2 4323-8 ####[facility] LABCLIA [id number] [place] [address] [place] ALP [Catalytic activity/Vol] 222 U/L High 38-113 [facility] Comment on above: Order Comment: Speci men Type: BLOOD SPECIMENOrdering Facility: [facility] Address: [address] [place] [address] Performed By: #### 2 4323-8 ####[facility] LABCLIA [id number] [place] [address] [place] ALT [Catalytic activity/Vol] 22 U/L Normal 10-54 [facility] Comment on above: Order Comment: Speci men Type: BLOOD SPECIMENOrdering Facility: [facility] Address: [address] [place] [id number] Performed By: #### 2 4323-8 ####[facility] LABCLIA [id number] [place] [address] [place] Anion gap [Moles/Vol] 11 mmol/L Normal 9-18 [facility] Comment on above: Order Comment: Speci men Type: BLOOD SPECIMENOrdering Facility: [facility] Address: [address] [place] [address] Performed By: #### 2 4323-8 ####[facility] LABCLIA [id number] [place] [address] [place] AST [Catalytic activity/Vol] 11 U/L Low 14-40 [facility] Comment on above: Order Comment: Speci men Type: BLOOD SPECIMENOrdering Facility: [facility] Address: [address] [place] [address] Performed By: #### 2 4323-8 ####[facility] LABCLIA [id number] [place] [address] [place] Bilirubin [Mass/Vol] 0.2 mg/dL Normal 0.2-1.3 [facility] Comment on above: Order Comment: Speci men Type: BLOOD SPECIMENOrdering Facility: [facility] Address: [address] [place], [place] [address] Performed By: #### 2 4323-8 ####[facility] LABCLIA [id number] [place] [id number] [place] Calcium [Mass/Vol] 9.2 mg/dL Normal 8.5-10.2 [facility] Comment on above: Order Comment: Speci men Type: BLOOD SPECIMENOrdering Facility: [facility] Address: [address] [place], [place] [address] Performed By: #### 2 4323-8 ####[facility] LABCLIA [id number] [place] [address] [place] Chloride [Moles/Vol] 107 mmol/L High 97-105 [facility] Comment on above: Order Comment: Speci men Type: BLOOD SPECIMENOrdering Facility: [facility] Address: [address] [place] [address] Performed By: #### 2 4323-8 ####[facility] LABCLIA [id number] [place] [address] [place] CO2 [Moles/Vol] 25 mmol/L Normal 22-30 [facility] Comment on above: Order Comment: Speci men Type: BLOOD SPECIMENOrdering Facility: [facility] Address: [address] [place] [address] Performed By: #### 2 4323-8 ####[facility] LABCLIA [id number] [place] [address] [place] Creatinine [Mass/Vol] 0.53 mg/dL Low 0.73-1.22 [facility] Comment on above: Order Comment: Speci men Type: BLOOD SPECIMENOrdering Facility: [facility] Address: [address] [place] [address] Performed By: #### 2 4323-8 ####[facility] LABIA [id number] [address] [place] Creatinine and Glomerular filtration rate.predicted panel (S/P/Bld) 131 mL/min/1.73m??? Normal >=60 [facility] Comment on above: Order Comment: Speci men Type: BLOOD SPECIMENOrdering Facility: [facility] Address: [address] [place] [address] Result Comment: Rae mated Glomerular Filtration Rate [...] actual GFR. Performed By: #### 2 4323-8 ####[facility] LABCLIA [id number] [place] [address] [place] Glucose [Mass/Vol] 102 mg/dL High 74-99 [facility] Comment on above: Order Comment: Speci men Type: BLOOD SPECIMENOrdering Facility: [facility] Address: [address] [place] [address] Result Comment: The [place] [employer] (ADA) provides guidance for cutoff [...] Standards of Medical Care in Diabetes 2016, [place] [employer]. Diabetes Care. 2016.39(Suppl 1). Performed By: #### 2 4323-8 ####[facility] LABCLIA [id number] [place] [address] [place] Potassium [Moles/Vol] 3.3 mmol/L Low 3.7-5.1 [facility] Comment on above: Order Comment: Speci men Type: BLOOD SPECIMENOrdering Facility: [facility] Address: [address] [place] [address] Performed By: #### 2 4323-8 ####[facility] LABCLIA [id number] [place] [address] [place] Protein [Mass/Vol] 5.8 g/dL Low 6.3-8.0 [facility] Comment on above: Order Comment: Speci men Type: BLOOD SPECIMENOrdering Facility: [facility] Address: [address] [place] [address] Performed By: #### 2 4323-8 ####[facility] LABCLIA [id number] [place] [address] [place] Urea nitrogen [Mass/Vol] 10 mg/dL Normal 9-24 [facility] Comment on above: Order Comment: Speci men Type: BLOOD SPECIMENOrdering Facility: [facility] Address: [address] [place] [address] Performed By: #### 2 4323-8 ####[facility] LABIA [id number] [place] [address] [place] Gas and Carbon monoxide pane l (BldV)on 10-12-2023 Base excess Calc (BldV) [Moles/Vol] 3 mmol/L High 0-2 [facility] Comment on above: Order Comment: Speci men Type: VENOUS BLOOD SPECIMENOrdering Facility: [facility] Address: [address] [place] [address] Performed By: #### 2 4344-4 ####[facility] [id number] [place] [address] [place] Body temperature 98.24 [degF] Normal [facility] Comment on above: Order Comment: Speci men Type: VENOUS BLOOD SPECIMENOrdering Facility: [facility] Address: [address] [place] [address] Performed By: #### 2 4344-4 ####[facility] LABIA [id number] [place] [address] [place] Calcium.ionized (Bld) [Mass/Vol] 1.26 mmol/L Normal 1.08-1.30 [facility] Comment on above: Order Comment: Speci men Type: VENOUS BLOOD SPECIMENOrdering Facility: [facility] Address: [address] [place] [address] Performed By: #### 2 4344-4 ####[facility] LABIA [id number] [place] [address] [place] Calcium.ionized adjusted to pH 7.4 (BldA) [Moles/Vol] 1.29 mmol/L Normal 1.08-1.30 [facility] Comment on above: Order Comment: Speci men Type: VENOUS BLOOD SPECIMENOrdering Facility: [facility] Address: [address] [place] [address] Performed By: #### 2 4344-4 ####[facility] LABCLIA [id number] [place] [address] [place] Carboxyhemoglobin (BldV) [Mass fraction] 1.8 % Normal 0.0-2.0 [facility] Comment on above: Order Comment: Speci men Type: VENOUS BLOOD SPECIMENOrdering Facility: [facility] Address: [address] [place] [address] Result Comment: Carb oxyhemoglobin Reference Range for Smokers: 2.0-8.0% Performed By: #### 2 4344-4 ####[facility] LABCLIA [id number] [place] [address] [place] CO2 (BldV) [Partial pressure] 41 mm[Hg] Low 42-55 [facility] Comment on above: Order Comment: Speci men Type: VENOUS BLOOD SPECIMENOrdering Facility: [facility] Address: [address] [place] [address] Performed By: #### 2 4344-4 ####[facility] LABCLIA [id number] [place] [address] [place] CO2 adjusted to patient's actual temperature (BldV) [Partial pressure] 41 mmHg Low 42-55 [facility] Comment on above: Order Comment: Speci men Type: VENOUS BLOOD SPECIMENOrdering Facility: [facility] Address: [address] [place] [address] Performed By: #### 2 4344-4 ####[facility] LABCLIA [id number] [place] [address] [place] FIO2 35 % Normal [facility] Comment on above: Order Comment: Speci men Type: VENOUS BLOOD SPECIMENOrdering Facility: [facility] Address: [address] [place] [id number] Performed By: #### 2 4344-4 ####[facility] LABCLIA [id number] [place] [address] [place] Glucose [Mass/Vol] 107 mg/dL High 60-105 [facility] Comment on above: Order Comment: Speci men Type: VENOUS BLOOD SPECIMENOrdering Facility: [facility] Address: [address] [place] [address] Performed By: #### 2 4344-4 ####[facility] LABCLIA [id number] [place] [address] [place] HCO3 (Bld) [Moles/Vol] 27 mmol/L Normal 24-28 [facility] Comment on above: Order Comment: Speci men Type: VENOUS BLOOD SPECIMENOrdering Facility: [facility] Address: [address] [place] [address] Performed By: #### 2 4344-4 ####[facility] LABCLIA [id number] [place] [address] [place] Hematocrit (Bld) [Volume fraction] 28.4 % Low 39.0-51.0 [facility] Comment on above: Order Comment: Speci men Type: VENOUS BLOOD SPECIMENOrdering Facility: [facility] Address: [address] [place] [id number] Performed By: #### 2 4344-4 ####[facility] LABCLIA [id number] [place] [id number] [place] Hemoglobin (Bld) [Mass/Vol] 9.1 g/dL Low 13.0-17.0 [facility] Comment on above: Order Comment: Speci men Type: VENOUS BLOOD SPECIMENOrdering Facility: [facility] Address: [address] [place], [place] [address] Performed By: #### 2 4344-4 ####[facility] LABCLIA [id number] [place] [id number] [place] Lactate [Moles/Vol] 0.8 mmol/L Normal 0.5-2.2 [facility] Comment on above: Order Comment: Speci men Type: VENOUS BLOOD SPECIMENOrdering Facility: [facility] Address: [address] [place] [address] Performed By: #### 2 4344-4 ####[facility] LABCLIA [id number] [place] [address] [place] Methemoglobin (Bld) [Mass fraction] 0.9 % Normal 0.0-1.5 [facility] Comment on above: Order Comment: Speci men Type: VENOUS BLOOD SPECIMENOrdering Facility: [facility] Address: [address] [place] [address] Performed By: #### 2 4344-4 ####[facility] LABIA [id number] [place] [address] [place] O2 THERAPY Ventilator Normal [facility] Comment on above: Order Comment: Speci men Type: VENOUS BLOOD SPECIMENOrdering Facility: [facility] Address: [address] [place] [address] Performed By: #### 2 4344-4 ####[facility] LABIA [id number] [place] [address] [place] Oxygen (BldV) [Partial pressure] 58 mm[Hg] High 35-45 [facility] Comment on above: Order Comment: Speci men Type: VENOUS BLOOD SPECIMENOrdering Facility: [facility] Address: [address] [place], [place] [address] Performed By: #### 2 4344-4 ####[facility] LABCLIA [id number] [place] [id number] [place] Oxygen adjusted to patient's actual temperature (BldV) [Partial pressure] 57 mmHg High 35-45 [facility] Comment on above: Order Comment: Speci men Type: VENOUS BLOOD SPECIMENOrdering Facility: [facility] Address: [address] [place] [address] Performed By: #### 2 4344-4 ####[facility] LABCLIA [id number] [address] [address] [place] Oxygen saturation in Venous blood 90 % High 60-85 [facility] Comment on above: Order Comment: Speci men Type: VENOUS BLOOD SPECIMENOrdering Facility: [facility] Address: [address] [place], [place] [address] Performed By: #### 2 4344-4 ####[facility] LABCLIA [id number] [place] [address] [place] Oxyhemoglobin (BldV) [Mass fraction] 87 % High 60-85 [facility] Comment on above: Order Comment: Speci men Type: VENOUS BLOOD SPECIMENOrdering Facility: [facility] Address: [address] [place] [address] Performed By: #### 2 4344-4 ####[facility] LABCLIA [id number] [place] [address] [place] PEEP/CPAP 5 cmH2O Normal [facility] Comment on above: Order Comment: Speci men Type: VENOUS BLOOD SPECIMENOrdering Facility: [facility] Address: [address] [place], [place] [address] Performed By: #### 2 4344-4 ####[facility] LABCLIA [id number] [place] [id number] [place] pH (BldV) 7.44 [pH] High 7.32-7.42 [facility] Comment on above: Order Comment: Speci men Type: VENOUS BLOOD SPECIMENOrdering Facility: [facility] Address: [address] [place], [place] [address] Performed By: #### 2 4344-4 ####[facility] LABCLIA [id number] [place] [id number] [place] pH adjusted to patient's actual temperature (BldV) 7.44 High 7.32-7.42 [facility] Comment on above: Order Comment: Speci men Type: VENOUS BLOOD SPECIMENOrdering Facility: [facility] Address: [address] [place] [address] Performed By: #### 2 4344-4 ####[facility] LABCLIA [id number] [place] [address] [place] Potassium [Moles/Vol] 3.2 mmol/L Low 3.5-5.0 [facility] Comment on above: Order Comment: Speci men Type: VENOUS BLOOD SPECIMENOrdering Facility: [facility] Address: [address] [place] [address] Performed By: #### 2 4344-4 ####[facility] LABCLIA [id number] [place] [address] [place] PTT, ANTICOAGULANT THERAPYon 10-12-2023 aPTT Coag (PPP) [Time] 50.1 s High 23.0-32.4 [facility] Comment on above: Order Comment: Speci men Type: BLOOD SPECIMENOrdering Facility: [facility] Address: [address] [place] [address] Performed By: #### P TTAC ####[facility] LABCLIA [id number] [place] [address] [place] aPTT Coag (PPP) [Time] 55.6 s High 23.0-32.4 [facility] Comment on above: Order Comment: Speci men Type: BLOOD SPECIMENOrdering Facility: [facility] Address: [address] [place] [address] Performed By: #### P TTAC ####[facility] LABCLIA [id number] [place] [address] [place] THERAPY NTon 10-12-2023 THERAPY NT Normal [facility] aPTT PPPon 10-12-2023 aPTT Coag (PPP) [Time] 56.1 s High 23.0-32.4 [facility] Comment on above: Order Comment: Speci men Type: BLOOD SPECIMENOrdering Facility: [facility] Address: [address] [place] [address] Performed By: #### 1 4979-9 ####[facility] LABCLIA [id number] [place] [address] [place] CONSULTon 10-11-2023 CONSULT Normal [facility] CONSULT PROGon 10-11-2023 CONSULT PROG Normal [facility] CT ABD/PEL W IVCONon 024 CT ABD/PEL W IVCON Invalid Interpretation Code [facility] Comprehensive metabolic 2000 panelon 10-11-2023 Albumin [Mass/Vol] 2.9 g/dL Low 3.9-4.9 [facility] Comment on above: Order Comment: Speci men Type: BLOOD SPECIMENOrdering Facility: [facility] Address: [address] [place] [address] Performed By: #### 2 4323-8 ####[facility] LABCLIA [id number] [place] [address] [place] ALP [Catalytic activity/Vol] 250 U/L High 38-113 [facility] Comment on above: Order Comment: Speci men Type: BLOOD SPECIMENOrdering Facility: [facility] Address: [address] [place] [address] Performed By: #### 2 4323-8 ####[facility] LABCLIA [id number] [place] [address] [place] ALT [Catalytic activity/Vol] 22 U/L Normal 10-54 [facility] Comment on above: Order Comment: Speci men Type: BLOOD SPECIMENOrdering Facility: [facility] Address: [address] [place] [address] Performed By: #### 2 4323-8 ####[facility] LABCLIA [id number] [place] [address] [place] Anion gap [Moles/Vol] 12 mmol/L Normal 9-18 [facility] Comment on above: Order Comment: Speci men Type: BLOOD SPECIMENOrdering Facility: [facility] Address: [address] [place] [address] Performed By: #### 2 4323-8 ####[facility] LABCLIA [id number] [place] [address] [place] AST [Catalytic activity/Vol] 12 U/L Low 14-40 [facility] Comment on above: Order Comment: Speci men Type: BLOOD SPECIMENOrdering Facility: [facility] Address: [address] [place] [address] Performed By: #### 2 4323-8 ####[facility] LABCLIA [id number] [place] [address] [place] Bilirubin [Mass/Vol] 0.4 mg/dL Normal 0.2-1.3 [facility] Comment on above: Order Comment: Speci men Type: BLOOD SPECIMENOrdering Facility: [facility] Address: [address] [place] [address] Performed By: #### 2 4323-8 ####[facility] LABCLIA [id number] [place] [address] [place] Calcium [Mass/Vol] 9.4 mg/dL Normal 8.5-10.2 [facility] Comment on above: Order Comment: Speci men Type: BLOOD SPECIMENOrdering Facility: [facility] Address: [address] [place], [place] [address] Performed By: #### 2 4323-8 ####[facility] LABCLIA [id number] [place] [address] [place] Chloride [Moles/Vol] 109 mmol/L High 97-105 [facility] Comment on above: Order Comment: Speci men Type: BLOOD SPECIMENOrdering Facility: [facility] Address: [address] [place] [address] Performed By: #### 2 4323-8 ####[facility] LABCLIA [id number] [place] [address] [place] CO2 [Moles/Vol] 23 mmol/L Normal 22-30 [facility] Comment on above: Order Comment: Speci men Type: BLOOD SPECIMENOrdering Facility: [facility] Address: [address] [place] [address] Performed By: #### 2 4323-8 ####[facility] LABCLIA [id number] [place] [address] [place] Creatinine [Mass/Vol] 0.52 mg/dL Low 0.73-1.22 [facility] Comment on above: Order Comment: Speci men Type: BLOOD SPECIMENOrdering Facility: [facility] Address: [address] [place] [address] Performed By: #### 2 4323-8 ####[facility] LABIA [id number] [place] [address] [place] Creatinine and Glomerular filtration rate.predicted panel (S/P/Bld) 131 mL/min/1.73m??? Normal >=60 [facility] Comment on above: Order Comment: Speci men Type: BLOOD SPECIMENOrdering Facility: [facility] Address: [address] [place] [address] Result Comment: Rae mated Glomerular Filtration Rate [...] actual GFR. Performed By: #### 2 4323-8 ####[facility] LABCLIA [id number] [place] [address] [place] Glucose [Mass/Vol] 94 mg/dL Normal 74-99 [facility] Comment on above: Order Comment: Speci men Type: BLOOD SPECIMENOrdering Facility: [facility] Address: [address] [place] [address] Result Comment: The [place] [employer] (ADA) provides guidance for cutoff [...] Standards of Medical Care in Diabetes 2016, [place] [employer]. Diabetes Care. 2016.39(Suppl 1). Performed By: #### 2 4323-8 ####[facility] LABCLIA [id number] [place] [address] [place] Potassium [Moles/Vol] 4.0 mmol/L Normal 3.7-5.1 [facility] Comment on above: Order Comment: Speci men Type: BLOOD SPECIMENOrdering Facility: [facility] Address: [address] [place] [address] Performed By: #### 2 4323-8 ####[facility] LABCLIA [id number] [place] [address] [place] Protein [Mass/Vol] 6.0 g/dL Low 6.3-8.0 [facility] Comment on above: Order Comment: Speci men Type: BLOOD SPECIMENOrdering Facility: [facility] Address: [address] [place], [place] [address] Performed By: #### 2 4323-8 ####[facility] LABCLIA [id number] [place] [address] [place] Sodium [Moles/Vol] 144 mmol/L Normal 136-144 [facility] Comment on above: Order Comment: Speci men Type: BLOOD SPECIMENOrdering Facility: [facility] Address: [address] [place] [address] Performed By: #### 2 4323-8 ####[facility] LABCLIA [id number] [place] [address] [place] Urea nitrogen [Mass/Vol] 10 mg/dL Normal 9-24 [facility] Comment on above: Order Comment: Speci men Type: BLOOD SPECIMENOrdering Facility: [facility] Address: [address] [place] [address] Performed By: #### 2 4323-8 ####[facility] LABIA [id number] [place] [address] [place] Gas and Carbon monoxide pane l (BldV)on 10-11-2023 Base excess Calc (BldV) [Moles/Vol] 3 mmol/L High 0-2 [facility] Comment on above: Order Comment: Speci men Type: VENOUS BLOOD SPECIMENOrdering Facility: [facility] Address: [address] [place] [address] Performed By: #### 2 4344-4 ####[facility] LABIA [id number] [place] [address] [place] Body temperature 98.96 [degF] Normal [facility] Comment on above: Order Comment: Speci men Type: VENOUS BLOOD SPECIMENOrdering Facility: [facility] Address: [address] [place] [address] Performed By: #### 2 4344-4 ####[facility] LABIA [id number] [place] [address] [place] Calcium.ionized (Bld) [Mass/Vol] 1.26 mmol/L Normal 1.08-1.30 [facility] Comment on above: Order Comment: Speci men Type: VENOUS BLOOD SPECIMENOrdering Facility: [facility] Address: [address] [place] [address] Performed By: #### 2 4344-4 ####[facility] LABCLIA [id number] [place] [address] [place] Calcium.ionized adjusted to pH 7.4 (BldA) [Moles/Vol] 1.29 mmol/L Normal 1.08-1.30 [facility] Comment on above: Order Comment: Speci men Type: VENOUS BLOOD SPECIMENOrdering Facility: [facility] Address: [address] [place] [address] Performed By: #### 2 4344-4 ####[facility] LABIA [id number] [place] [address] [place] Carboxyhemoglobin (BldV) [Mass fraction] 1.7 % Normal 0.0-2.0 [facility] Comment on above: Order Comment: Speci men Type: VENOUS BLOOD SPECIMENOrdering Facility: [facility] Address: [address] [place] [address] Result Comment: Carb oxyhemoglobin Reference Range for Smokers: 2.0-8.0% Performed By: #### 2 4344-4 ####[facility] LABCLIA [id number] [place] [address] [place] CO2 (BldV) [Partial pressure] 41 mm[Hg] Low 42-55 [facility] Comment on above: Order Comment: Speci men Type: VENOUS BLOOD SPECIMENOrdering Facility: [facility] Address: [address] [place] [address] Performed By: #### 2 4344-4 ####[facility] LABCLIA [id number] [place] [address] [place] CO2 adjusted to patient's actual temperature (BldV) [Partial pressure] 41 mmHg Low 42-55 [facility] Comment on above: Order Comment: Speci men Type: VENOUS BLOOD SPECIMENOrdering Facility: [facility] Address: [address] [place] [address] Performed By: #### 2 4344-4 ####[facility] LABCLIA [id number] [place] [address] [place] FIO2 35 % Normal [facility] Comment on above: Order Comment: Speci men Type: VENOUS BLOOD SPECIMENOrdering Facility: [facility] Address: [address] [place] [address] Performed By: #### 2 4344-4 ####[facility] LABCLIA [id number] [place] [address] [place] Glucose [Mass/Vol] 98 mg/dL Normal 60-105 [facility] Comment on above: Order Comment: Speci men Type: VENOUS BLOOD SPECIMENOrdering Facility: [facility] Address: [address] [place] [address] Performed By: #### 2 4344-4 ####[facility] LABCLIA [id number] [place] [address] [place] HCO3 (Bld) [Moles/Vol] 27 mmol/L Normal 24-28 [facility] Comment on above: Order Comment: Speci men Type: VENOUS BLOOD SPECIMENOrdering Facility: [facility] Address: [address] [place] [address] Performed By: #### 2 4344-4 ####[facility] LABCLIA [id number] [place] [address] [place] Hematocrit (Bld) [Volume fraction] 30.0 % Low 39.0-51.0 [facility] Comment on above: Order Comment: Speci men Type: VENOUS BLOOD SPECIMENOrdering Facility: [facility] Address: [address] [place] [address] Performed By: #### 2 4344-4 ####[facility] LABCLIA [id number] [place] [address] [place] Hemoglobin (Bld) [Mass/Vol] 9.7 g/dL Low 13.0-17.0 [facility] Comment on above: Order Comment: Speci men Type: VENOUS BLOOD SPECIMENOrdering Facility: [facility] Address: [address] [place] [id number] Performed By: #### 2 4344-4 ####[facility] LABCLIA [id number] [address] [address] [place] Lactate [Moles/Vol] 0.8 mmol/L Normal 0.5-2.2 [facility] Comment on above: Order Comment: Speci men Type: VENOUS BLOOD SPECIMENOrdering Facility: [facility] Address: [address] [place], [place] [address] Performed By: #### 2 4344-4 ####[facility] LABCLIA [id number] [place] [address] [place] Methemoglobin (Bld) [Mass fraction] 1.1 % Normal 0.0-1.5 [facility] Comment on above: Order Comment: Speci men Type: VENOUS BLOOD SPECIMENOrdering Facility: [facility] Address: [address] [place] [address] Performed By: #### 2 4344-4 ####[facility] LABCLIA [id number] [place] [address] [place] O2 THERAPY Ventilator Normal [facility] Comment on above: Order Comment: Speci men Type: VENOUS BLOOD SPECIMENOrdering Facility: [facility] Address: [address] [place], [place] [address] Performed By: #### 2 4344-4 ####[facility] LABCLIA [id number] [place] [id number] [place] Oxygen (BldV) [Partial pressure] 70 mm[Hg] High 35-45 [facility] Comment on above: Order Comment: Speci men Type: VENOUS BLOOD SPECIMENOrdering Facility: [facility] Address: [address] [place] [place] [id number] Performed By: #### 2 4344-4 ####[facility] LABCLIA [id number] [address] [address] [place] Oxygen adjusted to patient's actual temperature (BldV) [Partial pressure] 71 mmHg High 35-45 [facility] Comment on above: Order Comment: Speci men Type: VENOUS BLOOD SPECIMENOrdering Facility: [facility] Address: [address] [place], [place] [address] Performed By: #### 2 4344-4 ####[facility] LABCLIA [id number] [place] [id number] [place] Oxygen saturation in Venous blood 95 % High 60-85 [facility] Comment on above: Order Comment: Speci men Type: VENOUS BLOOD SPECIMENOrdering Facility: [facility] Address: [address] [place] [address] Performed By: #### 2 4344-4 ####[facility] LABCLIA [id number] [place] [address] [place] Oxyhemoglobin (BldV) [Mass fraction] 92 % High 60-85 [facility] Comment on above: Order Comment: Speci men Type: VENOUS BLOOD SPECIMENOrdering Facility: [facility] Address: [address] [place] [address] Performed By: #### 2 4344-4 ####[facility] LABCLIA [id number] [place] [address] [place] PEEP/CPAP 5 cmH2O Normal [facility] Comment on above: Order Comment: Speci men Type: VENOUS BLOOD SPECIMENOrdering Facility: [facility] Address: [address] [place], [place] [address] Performed By: #### 2 4344-4 ####[facility] LABCLIA [id number] [place] [id number] [place] pH (BldV) 7.44 [pH] High 7.32-7.42 [facility] Comment on above: Order Comment: Speci men Type: VENOUS BLOOD SPECIMENOrdering Facility: [facility] Address: [address] [place] [address] Performed By: #### 2 4344-4 ####[facility] LABIA [id number] [place] [address] [place] pH adjusted to patient's actual temperature (BldV) 7.43 High 7.32-7.42 [facility] Comment on above: Order Comment: Speci men Type: VENOUS BLOOD SPECIMENOrdering Facility: [facility] Address: [address] [place] [address] Performed By: #### 2 4344-4 ####[facility] LABIA [id number] [place] [address] [place] Potassium [Moles/Vol] 4.3 mmol/L Normal 3.5-5.0 [facility] Comment on above: Order Comment: Speci men Type: VENOUS BLOOD SPECIMENOrdering Facility: [facility] Address: [address] [place] [address] Performed By: #### 2 4344-4 ####[facility] LABIA [id number] [place] [address] [place] Sodium [Moles/Vol] 143 mmol/L Normal 136-144 [facility] Comment on above: Order Comment: Speci men Type: VENOUS BLOOD SPECIMENOrdering Facility: [facility] Address: [address] [place] [address] Performed By: #### 2 4344-4 ####[facility] LABIA [id number] [place] [id number] [place] NUTRITIONon 10-11-2023 NUTRITION Normal [facility] PTT, ANTICOAGULANT THERAPYon 10-11-2023 aPTT Coag (PPP) [Time] 24.9 s Normal 23.0-32.4 [facility] Comment on above: Order Comment: Speci men Type: BLOOD SPECIMENOrdering Facility: [facility] Address: [address] [place] [address] Performed By: #### P TTAC ####[facility] LABCLIA [id number] [place] [address] [place] aPTT Coag (PPP) [Time] 40.3 s High 23.0-32.4 [facility] Comment on above: Order Comment: Speci men Type: BLOOD SPECIMENOrdering Facility: [facility] Address: [address] [place] [address] Performed By: #### P TTAC ####[facility] LABCLIA [id number] [address] [place] THERAPY NTon 10-11-2023 THERAPY NT Normal [facility] THERAPY NT Normal [facility] aPTT PPPon 10-11-2023 aPTT Coag (PPP) [Time] 118.8 s High 23.0-32.4 [facility] Comment on above: Order Comment: Speci men Type: BLOOD SPECIMENOrdering Facility: [facility] Address: [address] [place] [address] Result Comment: Samp le checked for clot.Result rechecked. Performed By: #### 1 4979-9 ####[facility] LABCLIA [id number] [place] [address] [place] BRIEF OP NOTon 10-10-2023 BRIEF OP NOT Normal [facility] Bacteria Bld Culton 10-10-19 24 Bacteria identified Cx Nom (Bld) CULTURE, BLOOD: No growth 5 days Normal [facility] Comment on above: Performed By: #### 6 00-7 ####[facility] LABCLIA [id number] [place] [address] [place] Bacteria identified Cx Nom (Bld) CULTURE, BLOOD: No growth 5 days Normal [facility] Comment on above: Performed By: #### 6 00-7 ####[facility] LABCLIA [id number] [address] [id number] [address] [place] Bacteria Spec Resp Culton Bacteria identified Respiratory culture Nom (Unsp spec) Abnormal [facility] Comment on above: Performed By: #### 3 2355-0 ####[facility] LABCLIA [id number] [address] [address] [place] Bacteria Ur Culton Bacteria identified Cx Nom (U) Abnormal [facility] Comment on above: Performed By: #### 6 30-4 ####[facility] LABCLIA [id number] [place] [address] [place] CBC panel Auto (Bld)on 10-10 Erythrocyte distribution width (RBC) [Ratio] 18.3 % High 11.5-15.0 [facility] Comment on above: Order Comment: Speci men Type: BLOOD SPECIMENOrdering Facility: [facility] Address: [address] [place] [address] Performed By: #### 5 8410-2 ####[facility] LABIA [id number] [place] [address] [place] Hematocrit (Bld) [Volume fraction] 33.0 % Low 39.0-51.0 [facility] Comment on above: Order Comment: Speci men Type: BLOOD SPECIMENOrdering Facility: [facility] Address: [address] [place] [address] Performed By: #### 5 8410-2 ####[facility] LABIA [id number] [place] [id number] [place] Hemoglobin (Bld) [Mass/Vol] 9.7 g/dL Low 13.0-17.0 [facility] Comment on above: Order Comment: Speci men Type: BLOOD SPECIMENOrdering Facility: [facility] Address: [address] [place] [address] Performed By: #### 5 8410-2 ####[facility] LABIA [id number] [place] [address] [place] MCH (RBC) [Entitic mass] 25.2 pg Low 26.0-34.0 [facility] Comment on above: Order Comment: Speci men Type: BLOOD SPECIMENOrdering Facility: [facility] Address: [address] [place] [address] Performed By: #### 5 8410-2 ####[facility] LABCLIA [id number] [place] [address] [place] MCHC (RBC) [Mass/Vol] 29.4 g/dL Low 30.5-36.0 [facility] Comment on above: Order Comment: Speci men Type: BLOOD SPECIMENOrdering Facility: [facility] Address: [address] [place] [address] Performed By: #### 5 8410-2 ####[facility] LABCLIA [id number] [place] [address] [place] MCV (RBC) [Entitic vol] 85.7 fL Normal 80.0-100.0 [facility] Comment on above: Order Comment: Speci men Type: BLOOD SPECIMENOrdering Facility: [facility] Address: [address] [place] [address] Performed By: #### 5 8410-2 ####[facility] LABIA [id number] [place] [address] [place] Nucleated RBC (Bld) [#/Vol] 10*3/uL Normal <0.01 [facility] Comment on above: Order Comment: Speci men Type: BLOOD SPECIMENOrdering Facility: [facility] Address: [address] [place] [address] Performed By: #### 5 8410-2 ####[facility] LABCLIA [id number] [place] [address] [place] Platelet mean volume (Bld) [Entitic vol] 11.1 fL Normal 9.0-12.7 [facility] Comment on above: Order Comment: Speci men Type: BLOOD SPECIMENOrdering Facility: [facility] Address: [address] [place] [address] Performed By: #### 5 8410-2 ####[facility] LABCLIA [id number] [place] [address] [place] Platelets (Bld) [#/Vol] 443 10*3/uL High 150-400 [facility] Comment on above: Order Comment: Speci men Type: BLOOD SPECIMENOrdering Facility: [facility] Address: [address] [place] [address] Performed By: #### 5 8410-2 ####[facility] LABCLIA [id number] [place] [address] [place] RBC (Bld) [#/Vol] 3.85 10*6/uL Low 4.20-6.00 [facility] Comment on above: Order Comment: Speci men Type: BLOOD SPECIMENOrdering Facility: [facility] Address: [address] [place] [address] Performed By: #### 5 8410-2 ####[facility] LABCLIA [id number] [place] [address] [place] WBC (Bld) [#/Vol] 9.74 10*3/uL Normal 3.70-11.00 [facility] Comment on above: Order Comment: Speci men Type: BLOOD SPECIMENOrdering Facility: [facility] Address: [address] [place] [address] Performed By: #### 5 8410-2 ####[facility] LABCLIA [id number] [place] [address] [place] CONFIRM BLOOD TYPEon 024 ABO A Normal [facility] Comment on above: Order Comment: Speci men Type: BLOOD SPECIMENOrdering Facility: [facility] Address: [address] [place] [address] Performed By: #### C ONABO ####[facility] BANKCLIA [id number] [address] [address] [place] Rh Nom (Bld) Positive Normal [facility] Comment on above: Order Comment: Speci men Type: BLOOD SPECIMENOrdering Facility: [facility] Address: [address] [place] [address] Performed By: #### C ONABO ####[facility] BLOOD BANKIA [id number] [place] [address] [place] CONSULTon 10-10-2023 CONSULT Normal [facility] CONSULT Normal [facility] CONSULT PROGon 10-10-2023 CONSULT PROG Normal [facility] CONSULT PROG Normal [facility] Gas and Carbon monoxide pane l (BldV)on 10-10-2023 Base excess Calc (BldV) [Moles/Vol] 4 mmol/L High 0-2 [facility] Comment on above: Order Comment: Speci men Type: VENOUS BLOOD SPECIMENOrdering Facility: [facility] Address: [address] [place] [address] Performed By: #### 2 4344-4 ####[facility] LABIA [id number] [place] [address] [place] Body temperature 99.32 [degF] Normal [facility] Comment on above: Order Comment: Speci men Type: VENOUS BLOOD SPECIMENOrdering Facility: [facility] Address: [address] [place] [address] Performed By: #### 2 4344-4 ####[facility] [id number] [place] [address] [place] Calcium.ionized (Bld) [Mass/Vol] 1.26 mmol/L Normal 1.08-1.30 [facility] Comment on above: Order Comment: Speci men Type: VENOUS BLOOD SPECIMENOrdering Facility: [facility] Address: [address] [place] [address] Performed By: #### 2 4344-4 ####[facility] LABCLIA [id number] [place] [address] [place] Calcium.ionized adjusted to pH 7.4 (BldA) [Moles/Vol] 1.32 mmol/L High 1.08-1.30 [facility] Comment on above: Order Comment: Speci men Type: VENOUS BLOOD SPECIMENOrdering Facility: [facility] Address: [address] [place] [address] Performed By: #### 2 4344-4 ####[facility] LABCLIA [id number] [place] [address] [place] Carboxyhemoglobin (BldV) [Mass fraction] 2.2 % High 0.0-2.0 [facility] Comment on above: Order Comment: Speci men Type: VENOUS BLOOD SPECIMENOrdering Facility: [facility] Address: [address] [place] [address] Result Comment: Carb oxyhemoglobin Reference Range for Smokers: 2.0-8.0% Performed By: #### 2 4344-4 ####[facility] LABCLIA [id number] [place] [address] [place] CO2 (BldV) [Partial pressure] 36 mm[Hg] Low 42-55 [facility] Comment on above: Order Comment: Speci men Type: VENOUS BLOOD SPECIMENOrdering Facility: [facility] Address: [address] [place] [address] Performed By: #### 2 4344-4 ####[facility] LABCLIA [id number] [place] [id number] [place] CO2 adjusted to patient's actual temperature (BldV) [Partial pressure] 37 mmHg Low 42-55 [facility] Comment on above: Order Comment: Speci men Type: VENOUS BLOOD SPECIMENOrdering Facility: [facility] Address: [address] [place] [address] Performed By: #### 2 4344-4 ####[facility] LABCLIA [id number] [place] [address] [place] FIO2 40 % Normal [facility] Comment on above: Order Comment: Speci men Type: VENOUS BLOOD SPECIMENOrdering Facility: [facility] Address: [address] [place] [address] Performed By: #### 2 4344-4 ####[facility] LABCLIA [id number] [place] [address] [place] Glucose [Mass/Vol] 87 mg/dL Normal 60-105 [facility] Comment on above: Order Comment: Speci men Type: VENOUS BLOOD SPECIMENOrdering Facility: [facility] Address: [address] [place] [address] Performed By: #### 2 4344-4 ####[facility] LABCLIA [id number] [place] [address] [place] HCO3 (Bld) [Moles/Vol] 27 mmol/L Normal 24-28 [facility] Comment on above: Order Comment: Speci men Type: VENOUS BLOOD SPECIMENOrdering Facility: [facility] Address: [address] [place] [address] Performed By: #### 2 4344-4 ####[facility] LABCLIA [id number] [place] [address] [place] Hematocrit (Bld) [Volume fraction] 30.0 % Low 39.0-51.0 [facility] Comment on above: Order Comment: Speci men Type: VENOUS BLOOD SPECIMENOrdering Facility: [facility] Address: [address] [place] [address] Performed By: #### 2 4344-4 ####[facility] LABCLIA [id number] [place] [address] [place] Hemoglobin (Bld) [Mass/Vol] 9.7 g/dL Low 13.0-17.0 [facility] Comment on above: Order Comment: Speci men Type: VENOUS BLOOD SPECIMENOrdering Facility: [facility] Address: [address] [place] [id number] Performed By: #### 2 4344-4 ####[facility] LABCLIA [id number] [address] [address] [place] Lactate [Moles/Vol] 0.8 mmol/L Normal 0.5-2.2 [facility] Comment on above: Order Comment: Speci men Type: VENOUS BLOOD SPECIMENOrdering Facility: [facility] Address: [address] [place] [address] Performed By: #### 2 4344-4 ####[facility] LABCLIA [id number] [place] [address] [place] Methemoglobin (Bld) [Mass fraction] 0.9 % Normal 0.0-1.5 [facility] Comment on above: Order Comment: Speci men Type: VENOUS BLOOD SPECIMENOrdering Facility: [facility] Address: [address] [place] [address] Performed By: #### 2 4344-4 ####[facility] LABIA [id number] [place] [address] [place] O2 THERAPY Ventilator Normal [facility] Comment on above: Order Comment: Speci men Type: VENOUS BLOOD SPECIMENOrdering Facility: [facility] Address: [address] [place] [address] Performed By: #### 2 4344-4 ####[facility] LABCLIA [id number] [place] [id number] [place] Oxygen (BldV) [Partial pressure] 56 mm[Hg] High 35-45 [facility] Comment on above: Order Comment: Speci men Type: VENOUS BLOOD SPECIMENOrdering Facility: [facility] Address: [address] [place], [place] [address] Performed By: #### 2 4344-4 ####[facility] LABCLIA [id number] [address] [address] [place] Oxygen adjusted to patient's actual temperature (BldV) [Partial pressure] 57 mmHg High 35-45 [facility] Comment on above: Order Comment: Speci men Type: VENOUS BLOOD SPECIMENOrdering Facility: [facility] Address: [address] [place] [address] Performed By: #### 2 4344-4 ####[facility] LABCLIA [id number] [place] [address] [place] Oxygen saturation in Venous blood 90 % High 60-85 [facility] Comment on above: Order Comment: Speci men Type: VENOUS BLOOD SPECIMENOrdering Facility: [facility] Address: [address] [place] [address] Performed By: #### 2 4344-4 ####[facility] LABCLIA [id number] [place] [address] [place] Oxyhemoglobin (BldV) [Mass fraction] 87 % High 60-85 [facility] Comment on above: Order Comment: Speci men Type: VENOUS BLOOD SPECIMENOrdering Facility: [facility] Address: [address] [place] [address] Performed By: #### 2 4344-4 ####[facility] LABCLIA [id number] [place] [address] [place] PEEP/CPAP 5 cmH2O Normal [facility] Comment on above: Order Comment: Speci men Type: VENOUS BLOOD SPECIMENOrdering Facility: [facility] Address: [address] [place] [address] Performed By: #### 2 4344-4 ####[facility] LABCLIA [id number] [place] [address] [place] pH (BldV) 7.49 [pH] High 7.32-7.42 [facility] Comment on above: Order Comment: Speci men Type: VENOUS BLOOD SPECIMENOrdering Facility: [facility] Address: [address] [place] [address] Performed By: #### 2 4344-4 ####[facility] LABCLIA [id number] [place] [address] [place] pH adjusted to patient's actual temperature (BldV) 7.48 High 7.32-7.42 [facility] Comment on above: Order Comment: Speci men Type: VENOUS BLOOD SPECIMENOrdering Facility: [facility] Address: [address] [place] [address] Performed By: #### 2 4344-4 ####[facility] LABCLIA [id number] [place] [address] [place] Potassium [Moles/Vol] 3.2 mmol/L Low 3.5-5.0 [facility] Comment on above: Order Comment: Speci men Type: VENOUS BLOOD SPECIMENOrdering Facility: [facility] Address: [address] [place] [address] Performed By: #### 2 4344-4 ####[facility] LABIA [id number] [place] [address] [place] Sodium [Moles/Vol] 145 mmol/L High 136-144 [facility] Comment on above: Order Comment: Speci men Type: VENOUS BLOOD SPECIMENOrdering Facility: [facility] Address: [address] [place] [address] Performed By: #### 2 4344-4 ####[facility] LABIA [id number] [place] [id number] [place] HIGH SENSITIVITY TROPONIN To n 10-10-2023 Troponin T.cardiac High sensitivity method [Mass/Vol] 66 ng/L High <12 [facility] Comment on above: Order Comment: Speci men Type: BLOOD SPECIMENOrdering Facility: [facility] Address: [address] [place] [address] Result Comment: When assessing risk for acute [...] day MACE. Performed By: #### H STNT ####[facility] LABCLIA [id number] [address] [place] HISTORY PHYSICALon HISTORY [facility]YSICAL [facility] IR PERC KWASI EXISTING ACCES Son 10-10-2023 IR PERC KWASI EXISTING ACCESS Normal [facility] PT EDon 10-10-2023 PT ED Normal [facility] PT panel Coag (PPP)on 2023 INR Coag (PPP) [Relative time] 1.1 {INR} Normal 0.9-1.3 [facility] Comment on above: Order Comment: Speci men Type: BLOOD SPECIMENOrdering Facility: [facility] Address: [address] [place] [address] Result Comment: Edilma min K Antagonist (VKA) Therapeutic Range: INR 2 to 3 (Target INR of 2.5)Note: For patients treated with VKA drugs, such as warfarin, the [employer] [employer] 2012 Guideline recommends [...] al. Chest 2012, 141:7S-47SNishimura RA, et al. [facility] 2017, 70: 252-289 Performed By: #### 3 4528-0, 61294-8 ####[facility] LABCLIA [id number] [address] [id number] [address] [place] PT Coag (PPP) [Time] 12.0 s Normal 9.7-13.0 [facility] Comment on above: Order Comment: Speci men Type: BLOOD SPECIMENOrdering Facility: [facility] Address: [address] [place] [address] Performed By: #### 3 4528-0, 72050-9 ####[facility] LABCLIA [id number] [place] [address] [place] PTT, ANTICOAGULANT THERAPYon 10-10-2023 aPTT Coag (PPP) [Time] 35.6 s High 23.0-32.4 [facility] Comment on above: Order Comment: Speci men Type: BLOOD SPECIMENOrdering Facility: [facility] Address: [address] [place] [address] Performed By: #### P TTAC ####[facility] LABCLIA [id number] [address] [place] aPTT Coag (PPP) [Time] 28.6 s Normal 23.0-32.4 [facility] Comment on above: Order Comment: Speci men Type: BLOOD SPECIMENOrdering Facility: [facility] Address: [address] [place] [address] Performed By: #### P TTAC ####[facility] LABCLIA [id number] [place] [address] [place] US ABD RIGHT UPPER QUADRANTo n 10-10-2023 US ABD RIGHT UPPER QUADRANT Normal [facility] aPTT PPPon 10-10-2023 aPTT Coag (PPP) [Time] 47.7 s High 23.0-32.4 [facility] Comment on above: Order Comment: Speci men Type: BLOOD SPECIMENOrdering Facility: [facility] Address: [address] [place] [address] Performed By: #### 1 4979-9 ####[facility] LABCLIA [id number] [place] [address] [place] aPTT Coag (PPP) [Time] 24.9 s Normal 23.0-32.4 [facility] Comment on above: Order Comment: Speci men Type: BLOOD SPECIMENOrdering Facility: [facility] Address: [address] [place] [address] Performed By: #### 3 4528-0, 22183-0 ####[facility] LABCLIA [id number] [place] [address] [place] Bacteria Wnd Culton 10-09-19 24 Bacteria identified Cx Nom (Wound) Abnormal [facility] Comment on above: Performed By: #### 6 462-6 ####[facility] LABCLIA [id number] [place] [address] [place] CBC panel Auto (Bld)on 10-09 Erythrocyte distribution width (RBC) [Ratio] 18.0 % High 11.5-15.0 [facility] Comment on above: Order Comment: Speci men Type: BLOOD SPECIMENOrdering Facility: [facility] Address: [address] [place] [address] Performed By: #### 5 8410-2 ####[facility] LABCLIA [id number] [place] [address] [place] Hematocrit (Bld) [Volume fraction] 32.9 % Low 39.0-51.0 [facility] Comment on above: Order Comment: Speci men Type: BLOOD SPECIMENOrdering Facility: [facility] Address: [address] [place] [address] Performed By: #### 5 8410-2 ####[facility] LABIA [id number] [place] [address] [place] Hemoglobin (Bld) [Mass/Vol] 9.7 g/dL Low 13.0-17.0 [facility] Comment on above: Order Comment: Speci men Type: BLOOD SPECIMENOrdering Facility: [facility] Address: [address] [place] [address] Performed By: #### 5 8410-2 ####[facility] LABIA [id number] [place] [address] [place] MCH (RBC) [Entitic mass] 25.1 pg Low 26.0-34.0 [facility] Comment on above: Order Comment: Speci men Type: BLOOD SPECIMENOrdering Facility: [facility] Address: [address] [place] [address] Performed By: #### 5 8410-2 ####[facility] [id number] [place] [address] [place] MCHC (RBC) [Mass/Vol] 29.5 g/dL Low 30.5-36.0 [facility] Comment on above: Order Comment: Speci men Type: BLOOD SPECIMENOrdering Facility: [facility] Address: [address] [place] [address] Performed By: #### 5 8410-2 ####[facility] [id number] [place] [address] [place] MCV (RBC) [Entitic vol] 85.2 fL Normal 80.0-100.0 [facility] Comment on above: Order Comment: Speci men Type: BLOOD SPECIMENOrdering Facility: [facility] Address: [address] [place] [address] Performed By: #### 5 8410-2 ####[facility] LABIA [id number] [place] [address] [place] Nucleated RBC (Bld) [#/Vol] 10*3/uL Normal <0.01 [facility] Comment on above: Order Comment: Speci men Type: BLOOD SPECIMENOrdering Facility: [facility] Address: [address] [place] [address] Performed By: #### 5 8410-2 ####[facility] [id number] [place] [address] [place] Platelet mean volume (Bld) [Entitic vol] 11.2 fL Normal 9.0-12.7 [facility] Comment on above: Order Comment: Speci men Type: BLOOD SPECIMENOrdering Facility: [facility] Address: [address] [place] [address] Performed By: #### 5 8410-2 ####[facility] LABIA [id number] [place] [address] [place] Platelets (Bld) [#/Vol] 446 10*3/uL High 150-400 [facility] Comment on above: Order Comment: Speci men Type: BLOOD SPECIMENOrdering Facility: [facility] Address: [address] [place] [address] Performed By: #### 5 8410-2 ####[facility] LABCLIA [id number] [place] [address] [place] RBC (Bld) [#/Vol] 3.86 10*6/uL Low 4.20-6.00 [facility] Comment on above: Order Comment: Speci men Type: BLOOD SPECIMENOrdering Facility: [facility] Address: [address] [place] [address] Performed By: #### 5 8410-2 ####[facility] LABIA [id number] [place] [address] [place] WBC (Bld) [#/Vol] 10.27 10*3/uL Normal 3.70-11.00 [facility] Comment on above: Order Comment: Speci men Type: BLOOD SPECIMENOrdering Facility: [facility] Address: [address] [place] [address] Performed By: #### 5 8410-2 ####[facility] LABCLIA [id number] [place] [address] [place] Comprehensive metabolic 2000 panelon 10-09-2023 Albumin [Mass/Vol] 3.0 g/dL Low 3.9-4.9 [facility] Comment on above: Order Comment: Speci men Type: BLOOD SPECIMENOrdering Facility: [facility] Address: [address] [place] [address] Performed By: #### H STNT, 21050-5 ####[facility] LABCLIA [id number] [place] [address] [place] ALP [Catalytic activity/Vol] 295 U/L High 38-113 [facility] Comment on above: Order Comment: Speci men Type: BLOOD SPECIMENOrdering Facility: [facility] Address: [address] [place] [address] Performed By: #### H STNT, 02903-1 ####[facility] LABCLIA [id number] [place] [address] [place] ALT [Catalytic activity/Vol] 38 U/L Normal 10-54 [facility] Comment on above: Order Comment: Speci men Type: BLOOD SPECIMENOrdering Facility: [facility] Address: [address] [place] [address] Performed By: #### H STNT, 52733-8 ####[facility] LABCLIA [id number] [place] [address] [place] Anion gap [Moles/Vol] 14 mmol/L Normal 9-18 [facility] Comment on above: Order Comment: Speci men Type: BLOOD SPECIMENOrdering Facility: [facility] Address: [address] [place] [address] Performed By: #### H STNT, 09553-8 ####[facility] LABCLIA [id number] [place] [address] [place] AST [Catalytic activity/Vol] 26 U/L Normal 14-40 [facility] Comment on above: Order Comment: Speci men Type: BLOOD SPECIMENOrdering Facility: [facility] Address: [address] [place] [address] Performed By: #### H STNT, 74837-9 ####[facility] LABCLIA [id number] [place] [address] [place] Bilirubin [Mass/Vol] 0.5 mg/dL Normal 0.2-1.3 [facility] Comment on above: Order Comment: Speci men Type: BLOOD SPECIMENOrdering Facility: [facility] Address: [address] [place] [address] Performed By: #### H STNT, 72046-5 ####[facility] LABCLIA [id number] [place] [address] [place] Calcium [Mass/Vol] 9.4 mg/dL Normal 8.5-10.2 [facility] Comment on above: Order Comment: Speci men Type: BLOOD SPECIMENOrdering Facility: [facility] Address: [address] [place] [address] Performed By: #### H STNT, 93456-7 ####[facility] LABCLIA [id number] [place] [address] [place] Chloride [Moles/Vol] 106 mmol/L High 97-105 [facility] Comment on above: Order Comment: Speci men Type: BLOOD SPECIMENOrdering Facility: [facility] Address: [address] [place] [address] Performed By: #### H STNT, 53034-1 ####[facility] LABCLIA [id number] [place] [address] [place] CO2 [Moles/Vol] 25 mmol/L Normal 22-30 [facility] Comment on above: Order Comment: Speci men Type: BLOOD SPECIMENOrdering Facility: [facility] Address: [address] [place] [address] Performed By: #### H STNT, 79656-4 ####[facility] LABCLIA [id number] [place] [address] [place] Creatinine [Mass/Vol] 0.51 mg/dL Low 0.73-1.22 [facility] Comment on above: Order Comment: Darwin schwarz Type: BLOOD SPECIMENOrdering Facility: [facility] Address: [address] [place] [address] Performed By: #### H STNT, 17435-2 ####[facility] LABCLIA [id number] [address] Creatinine and Glomerular filtration rate.predicted panel (S/P/Bld) 132 mL/min/1.73m??? Normal >=60 [facility] Comment on above: Order Comment: Darwin schwarz Type: BLOOD SPECIMENOrdering Facility: [facility] Address: [address] [place] [address] Result Comment: Rae mated Glomerular Filtration Rate [...] actual GFR. Performed By: #### H STNT, 67496-1 ####[facility] LABCLIA [id number] [place] [address] [place] Glucose [Mass/Vol] 83 mg/dL Normal 74-99 [facility] Comment on above: Order Comment: Darwin schwarz Type: BLOOD SPECIMENOrdering Facility: [facility] Address: [address] [place] [address] Result Comment: The [place] [employer] (ADA) provides guidance for cutoff [...] Standards of Medical Care in Diabetes 2016, [place] [employer]. Diabetes Care. 2016.39(Suppl 1). Performed By: #### H CAYLA, 85944-8 ####[facility] LABCLIA [id number] [address] [address] [place] Potassium [Moles/Vol] 3.7 mmol/L Normal 3.7-5.1 [facility] Comment on above: Order Comment: Speci men Type: BLOOD SPECIMENOrdering Facility: [facility] Address: [address] [place] [address] Performed By: #### H CAYLA, 58396-0 ####[facility] LABCLIA [id number] [place] [address] [place] Protein [Mass/Vol] 6.3 g/dL Normal 6.3-8.0 [facility] Comment on above: Order Comment: Speci men Type: BLOOD SPECIMENOrdering Facility: [facility] Address: [address] [place] [address] Performed By: #### H STNJosue, 96771-0 ####[facility] LABIA [id number] [place] [address] [place] Sodium [Moles/Vol] 145 mmol/L High 136-144 [facility] Comment on above: Order Comment: Speci men Type: BLOOD SPECIMENOrdering Facility: [facility] Address: [address] [place] [address] Performed By: #### H STNT, 27856-3 ####[facility] LABCLIA [id number] [place] [address] [place] Urea nitrogen [Mass/Vol] 12 mg/dL Normal 9-24 [facility] Comment on above: Order Comment: Speci men Type: BLOOD SPECIMENOrdering Facility: [facility] Address: [address] [place] [address] Performed By: #### H CAYLA, 56564-3 ####[facility] LABCLIA [id number] [place] [address] [place] ECG COMPLETEon 10-09-2023 ECG COMPLETE Normal [facility] Gas and Carbon monoxide pane l (BldV)on 10-09-2023 Base excess Calc (BldV) [Moles/Vol] 5 mmol/L High 0-2 [facility] Comment on above: Order Comment: Speci men Type: VENOUS BLOOD SPECIMENOrdering Facility: [facility] Address: [address] [place] [address] Performed By: #### 2 4344-4 ####[facility] LABIA [id number] [place] [address] [place] Body temperature 99.32 [degF] Normal [facility] Comment on above: Order Comment: Speci men Type: VENOUS BLOOD SPECIMENOrdering Facility: [facility] Address: [address] [place] [address] Performed By: #### 2 4344-4 ####[facility] LABIA [id number] [place] [address] [place] Calcium.ionized (Bld) [Mass/Vol] 1.25 mmol/L Normal 1.08-1.30 [facility] Comment on above: Order Comment: Speci men Type: VENOUS BLOOD SPECIMENOrdering Facility: [facility] Address: [address] [place] [address] Performed By: #### 2 4344-4 ####[facility] LABIA [id number] [place] [address] [place] Calcium.ionized adjusted to pH 7.4 (BldA) [Moles/Vol] 1.32 mmol/L High 1.08-1.30 [facility] Comment on above: Order Comment: Speci men Type: VENOUS BLOOD SPECIMENOrdering Facility: [facility] Address: [address] [place] [address] Performed By: #### 2 4344-4 ####[facility] LABCLIA [id number] [place] [address] [place] Carboxyhemoglobin (BldV) [Mass fraction] 1.2 % Normal 0.0-2.0 [facility] Comment on above: Order Comment: Speci men Type: VENOUS BLOOD SPECIMENOrdering Facility: [facility] Address: [address] [place] [address] Result Comment: Carb oxyhemoglobin Reference Range for Smokers: 2.0-8.0% Performed By: #### 2 4344-4 ####[facility] LABCLIA [id number] [place] [address] [place] CO2 (BldV) [Partial pressure] 36 mm[Hg] Low 42-55 [facility] Comment on above: Order Comment: Speci men Type: VENOUS BLOOD SPECIMENOrdering Facility: [facility] Address: [address] [place] [address] Performed By: #### 2 4344-4 ####[facility] LABCLIA [id number] [place] [address] [place] CO2 adjusted to patient's actual temperature (BldV) [Partial pressure] 36 mmHg Low 42-55 [facility] Comment on above: Order Comment: Speci men Type: VENOUS BLOOD SPECIMENOrdering Facility: [facility] Address: [address] [place] [address] Performed By: #### 2 4344-4 ####[facility] LABCLIA [id number] [place] [address] [place] FIO2 40 % Normal [facility] Comment on above: Order Comment: Speci men Type: VENOUS BLOOD SPECIMENOrdering Facility: [facility] Address: [address] [place] [address] Performed By: #### 2 4344-4 ####[facility] LABCLIA [id number] [place] [address] [place] Glucose [Mass/Vol] 87 mg/dL Normal 60-105 [facility] Comment on above: Order Comment: Speci men Type: VENOUS BLOOD SPECIMENOrdering Facility: [facility] Address: [address] [place] [address] Performed By: #### 2 4344-4 ####[facility] LABCLIA [id number] [place] [address] [place] HCO3 (Bld) [Moles/Vol] 28 mmol/L Normal 24-28 [facility] Comment on above: Order Comment: Speci men Type: VENOUS BLOOD SPECIMENOrdering Facility: [facility] Address: [address] [place] [address] Performed By: #### 2 4344-4 ####[facility] LABCLIA [id number] [place] [address] [place] Hematocrit (Bld) [Volume fraction] 30.6 % Low 39.0-51.0 [facility] Comment on above: Order Comment: Speci men Type: VENOUS BLOOD SPECIMENOrdering Facility: [facility] Address: [address] [place] [address] Performed By: #### 2 4344-4 ####[facility] LABCLIA [id number] [place] [address] [place] Hemoglobin (Bld) [Mass/Vol] 9.9 g/dL Low 13.0-17.0 [facility] Comment on above: Order Comment: Speci men Type: VENOUS BLOOD SPECIMENOrdering Facility: [facility] Address: [address] [place] [address] Performed By: #### 2 4344-4 ####[facility] LABCLIA [id number] [place] [address] [place] Lactate [Moles/Vol] 1.1 mmol/L Normal 0.5-2.2 [facility] Comment on above: Order Comment: Speci men Type: VENOUS BLOOD SPECIMENOrdering Facility: [facility] Address: [address] [place] [id number] Performed By: #### 2 4344-4 ####[facility] LABCLIA [id number] [place] [id number] [place] Methemoglobin (Bld) [Mass fraction] 0.9 % Normal 0.0-1.5 [facility] Comment on above: Order Comment: Speci men Type: VENOUS BLOOD SPECIMENOrdering Facility: [facility] Address: [address] [place] [id number] Performed By: #### 2 4344-4 ####[facility] LABCLIA [id number] [place] [address] [place] O2 THERAPY Ventilator Normal [facility] Comment on above: Order Comment: Speci men Type: VENOUS BLOOD SPECIMENOrdering Facility: [facility] Address: [address] [place] [id number] Performed By: #### 2 4344-4 ####[facility] LABCLIA [id number] [place] [id number] [place] Oxygen (BldV) [Partial pressure] 60 mm[Hg] High 35-45 [facility] Comment on above: Order Comment: Speci men Type: VENOUS BLOOD SPECIMENOrdering Facility: [facility] Address: [address] [place] [id number] Performed By: #### 2 4344-4 ####[facility] LABCLIA [id number] [place] [id number] [place] Oxygen adjusted to patient's actual temperature (BldV) [Partial pressure] 61 mmHg High 35-45 [facility] Comment on above: Order Comment: Speci men Type: VENOUS BLOOD SPECIMENOrdering Facility: [facility] Address: [address] [place] [id number] Performed By: #### 2 4344-4 ####[facility] LABCLIA [id number] [place] [id number] [address] [place] Oxygen saturation in Venous blood 91 % High 60-85 [facility] Comment on above: Order Comment: Speci men Type: VENOUS BLOOD SPECIMENOrdering Facility: [facility] Address: [address] [place] [address] Performed By: #### 2 4344-4 ####[facility] LABCLIA [id number] [address] [address] [place] Oxyhemoglobin (BldV) [Mass fraction] 89 % High 60-85 [facility] Comment on above: Order Comment: Speci men Type: VENOUS BLOOD SPECIMENOrdering Facility: [facility] Address: [address] [place] [address] Performed By: #### 2 4344-4 ####[facility] LABCLIA [id number] [place] [address] [place] PEEP/CPAP 5 cmH2O Normal [facility] Comment on above: Order Comment: Speci men Type: VENOUS BLOOD SPECIMENOrdering Facility: [facility] Address: [address] [place], [place] [address] Performed By: #### 2 4344-4 ####[facility] LABCLIA [id number] [place] [address] [place] pH (BldV) 7.50 [pH] High 7.32-7.42 [facility] Comment on above: Order Comment: Speci men Type: VENOUS BLOOD SPECIMENOrdering Facility: [facility] Address: [address] [place], [place] [address] Performed By: #### 2 4344-4 ####[facility] LABCLIA [id number] [place] [address] [place] pH adjusted to patient's actual temperature (BldV) 7.50 High 7.32-7.42 [facility] Comment on above: Order Comment: Speci men Type: VENOUS BLOOD SPECIMENOrdering Facility: [facility] Address: [address] [place] [address] Performed By: #### 2 4344-4 ####[facility] LABCLIA [id number] [place] [address] [place] Potassium [Moles/Vol] 3.5 mmol/L Normal 3.5-5.0 [facility] Comment on above: Order Comment: Speci men Type: VENOUS BLOOD SPECIMENOrdering Facility: [facility] Address: [address] [place] [address] Performed By: #### 2 4344-4 ####[facility] LABCLIA [id number] [place] [address] [place] Sodium [Moles/Vol] 145 mmol/L High 136-144 [facility] Comment on above: Order Comment: Speci men Type: VENOUS BLOOD SPECIMENOrdering Facility: [facility] Address: [address] [place] [address] Performed By: #### 2 4344-4 ####[facility] LABCLIA [id number] [place] [address] [place] HIGH SENSITIVITY TROPONIN To n 10-09-2023 Troponin T.cardiac High sensitivity method [Mass/Vol] 66 ng/L High <12 [facility] Comment on above: Order Comment: Speci men Type: BLOOD SPECIMENOrdering Facility: [facility] Address: [address] [place] [address] Result Comment: When assessing risk for acute [...] day MACE. Performed By: #### H STNT, 76234-5 ####[facility] LABCLIA [id number] [place] [address] [place] HISTORY PHYSICALon HISTORY PHYSICAL Normal [facility] STAPH AUREUS PCRon S. aureus and MRSA panel COMPA+probe (Nose) Normal Negative [facility] Comment on above: Order Comment: Speci men Type: SWAB OF INTERNAL NOSEOrdering Facility: [facility] Address: [address] [place] [address] Result Comment: Nega tive for Staphylococcus aureus by PCR.Negative for MRSA by PCR Performed By: #### S APCR ####[facility] LABCLIA [id number] [place] [address] [place] [facility] TYPE + SCREENon 10-09-2023 ABO A Normal [facility] Comment on above: Order Comment: Speci men Type: BLOOD SPECIMENOrdering Facility: [facility] Address: [address] [place] [address] Performed By: #### T SCR ####[facility] [id number] [place] [address] [place] HISTORICAL AB SCR STATUS Negative Normal [facility] Comment on above: Order Comment: Speci men Type: BLOOD SPECIMENOrdering Facility: [facility] Address: [address] [place] [address] Performed By: #### T SCR ####[facility] [id number] [place] [address] [place] Rh Nom (Bld) Positive Normal [facility] Comment on above: Order Comment: Speci men Type: BLOOD SPECIMENOrdering Facility: [facility] Address: [address] [place] [address] Performed By: #### T SCR ####[facility]CL[facility] [id number] [place] [address] [place] TYPE AND SCREEN EXPIRATION 10/12/2023 23:59 Normal [facility] Comment on above: Order Comment: Speci men Type: BLOOD SPECIMENOrdering Facility: [facility] Address: [address] [place] [address] Performed By: #### T SCR ####[facility] BANKCLIA [id number] [place] [address] [place] URINALYSIS, REFLEX MICROSCOP ICon 10-09-2023 BACTERIA UL >9821 High Negative [facility] Comment on above: Order Comment: Speci men Type: URINE SPECIMENOrdering Facility: [facility] Address: [address] [place] [address] Performed By: #### L [id number] ####[facility] LABCLIA [id number] [place] [address] [place] Bilirubin Ql (U) 1+ Abnormal Negative [facility] Comment on above: Order Comment: Speci men Type: URINE SPECIMENOrdering Facility: [facility] Address: [address] [place] [address] Result Comment: Sugg est correlation with clinical findings and serum bilirubin if clinically indicated. Performed By: #### L [id number] ####[facility] LABCL[facility] [id number] [place] [address] [place] CALCIUM OXALATE CRYSTALS (UA) Few Abnormal None Seen [facility] Comment on above: Order Comment: Speci men Type: URINE SPECIMENOrdering Facility: [facility] Address: [address] [place] [address] Performed By: #### L [id number] ####[facility] LABCLIA [id number] [place] [address] [place] Clarity (Unsp spec) Turbid Abnormal Clear [facility] Comment on above: Order Comment: Speci men Type: URINE SPECIMENOrdering Facility: [facility] Address: [address] [place] [address] Performed By: #### L [id number] ####[facility] LABCLIA [id number] [place] [id number] [place] Color (U) Dark Yellow Abnormal Yellow [facility] Comment on above: Order Comment: Speci men Type: URINE SPECIMENOrdering Facility: [facility] Address: [address] [place] [address] Performed By: #### L [id number] ####[facility] LABCLIA [id number] [place] [address] [place] Epithelial cells LM.HPF (Urine sed) [#/Area] None Seen Normal [facility] Comment on above: Order Comment: Speci men Type: URINE SPECIMENOrdering Facility: [facility] Address: [address] [place] [address] Performed By: #### L [id number] ####[facility] LABCLIA [id number] [address] [place] Glucose Test strip (U) [Mass/Vol] Negative Normal Negative [facility] Comment on above: Order Comment: Speci men Type: URINE SPECIMENOrdering Facility: [facility] Address: [address] [place] [address] Performed By: #### L [id number] ####[facility] LABCLIA [id number] [place] [address] [place] Hemoglobin Ql (U) 3+ Abnormal Negative [facility] Comment on above: Order Comment: Speci men Type: URINE SPECIMENOrdering Facility: [facility] Address: [address] [place] [address] Performed By: #### L [id number] ####[facility] LABCLIA [id number] [place] [address] [place] Hyaline casts (Urine sed) [#/Area] 4-10 /LPF Abnormal 0 /LPF [facility] Comment on above: Order Comment: Speci men Type: URINE SPECIMENOrdering Facility: [facility] Address: [address] [place] [address] Performed By: #### L [id number] ####[facility] LABCLIA [id number] [place] [address] [place] Ketones Ql (U) 2+ Abnormal Negative [facility] Comment on above: Order Comment: Speci men Type: URINE SPECIMENOrdering Facility: [facility] Address: [address] [place] [address] Performed By: #### L [id number] ####[facility] LABCLIA [id number] [place] [address] [place] Leukocyte esterase Test strip Ql (U) 1+ Abnormal Negative [facility] Comment on above: Order Comment: Speci men Type: URINE SPECIMENOrdering Facility: [facility] Address: [address] [place] [address] Performed By: #### L [id number] ####[facility] LABCLIA [id number] [place] [address] [place] Nitrite Ql (U) Positive Abnormal Negative [facility] Comment on above: Order Comment: Speci men Type: URINE SPECIMENOrdering Facility: [facility] Address: [address] [place] [address] Performed By: #### L [id number] ####[facility] LABCLIA [id number] [place] [address] [place] pH (U) 5.5 [pH] Normal <8.5 [facility] Comment on above: Order Comment: Speci men Type: URINE SPECIMENOrdering Facility: [facility] Address: [address] [place] [address] Performed By: #### L [id number] ####[facility] LABCLIA [id number] [place] [address] [place] Protein (U) [Mass/Vol] 1+ Abnormal Negative [facility] Comment on above: Order Comment: Speci men Type: URINE SPECIMENOrdering Facility: [facility] Address: [address] [place] [address] Performed By: #### L [id number] ####[facility] LABCLIA [id number] [place] [address] [place] RBC LM.HPF (Urine sed) [#/Area] /[HPF] Abnormal 0-2 /HPF [facility] Comment on above: Order Comment: Speci men Type: URINE SPECIMENOrdering Facility: [facility] Address: [address] [place] [address] Performed By: #### L [id number] ####[facility] LABIA [id number] [place] [address] [place] Specific gravity (U) [Rel density] 1.037 High 1.005-1.030 [facility] Comment on above: Order Comment: Speci men Type: URINE SPECIMENOrdering Facility: [facility] Address: [address] [place] [address] Performed By: #### L [id number] ####[facility] LABIA [id number] [place] [address] [place] Urobilinogen Ql (U) 1.0 EU/dL Normal 0.2-1.0 EU/dL [facility] Comment on above: Order Comment: Speci men Type: URINE SPECIMENOrdering Facility: [facility] Address: [address] [place] [address] Performed By: #### L [id number] ####[facility] LABIA [id number] [place] [address] [place] WBC LM.HPF (Urine sed) [#/Area] /[HPF] Abnormal 0-5 /HPF [facility] Comment on above: Order Comment: Speci men Type: URINE SPECIMENOrdering Facility: [facility] Address: [address] [place] [address] Performed By: #### L [id number] ####[facility] LABIA [id number] [place] [address] [place] XR ABDOMEN 1V SUPINEon 10-09 XR ABDOMEN 1V SUPINE Normal [facility] XR CHEST 1V FRONTAL PORTon 0 10-09-2023 XR CHEST 1V FRONTAL PORT Normal [facility] XR CHEST PORTABLEon 07-25-20 XR CHEST PORTABLE [...] Thom Rhoades MD 07/25/23 Final result Normal [facility] XR CHEST PORTABLEon 07-22-20 XR CHEST [...] Logan Valera MD 07/22/23 Final result Normal [facility] XR CHEST PORTABLEon 07-19-20 XR CHEST [...] Nghia Suarez MD 07/19/23 Final result Normal [facility] XR CHEST PORTABLEon 07-15-20 XR CHEST [...] Nghia Suarez MD 07/15/23 Final result Normal [facility] XR CHEST PORTABLEon 07-11-20 XR CHEST [...] Nghia Suarez MD 07/11/23 Final result Normal [facility] XR CHEST PORTABLEon 07-07-20 XR CHEST [...] Heavenly Kent MD 07/07/23 Final result Normal [facility] Retail - Clinical Noteon Retail - Clinical Note [id number]: 127 Normal [facility] Ambulatory Visit Summaryon 0 10-01-2022 Ambulatory Visit Summary LOLIS QUINONES III :1985 Visit Date:10/01/2022 Ambulatory Visit Instructions Your Diagnosis Chronic prostatitis Flaccid neurogenic bladder Incomplete bladder emptying Tests Performed Urnls Dip Stick Auto w/o Microscopy POC 96078 Your Care Team Attending Physician - ANNABELLE ANGUIANO, Cj Rodas Primary Care Physician - DANII MCNEIL MD This Is Your Medications List Contact [...] ANGUIANO, Cj Rodas Where: [facility] Normal [facility] Patient Educationon 10-01-19 Patient Education Infectious Disease [...] Follow these instructions at home: ? Take isuk-wxc-zstallx and prescription medicines only as told by [...] 11/08/2018 Docum (more content not included)... Normal [facility] Urology Office/Clinic Noteon 10-01-2022 Urology Office/Clinic Note [...] he had a likely pro[facility]itis infection [facility]. Was having lower pain, discharge. Completed abx [...] to cath since his neck surgery in 2014. Pt does not void on his own. [...] URL [facility] [address], [place] [address]- Additional Instructions: f/u 1 yr Patient Education Prostatitis I, Sapphire Fuller, personally scribed for Dr. Alanis on 10/01/2022 11:20:11. . Documentation recorded by the scribe, Sapphire Fuller, accurately reflects the services(s) I performed and decisions made by me. Authenticated by Dr. Alnais on 10/01/2022 11:21:22. Problem List/Past Medical History [...] have his card today. influenza virus vaccine, [facility] (more content not included)... Normal [facility] Comment on above: Result Comment: Elec tronically Signed By: Cj ALANIS MD R\.br\Date and Time Signed: 10/01/22 11:21 EST\.br\Electronically Co-Signed By: Sapphire Fuller\.br\Date and Time Co-Signed: 10/01/22 11:20 EST ER URINE PROFILEon 2 Bilirubin Ql (U) Negative Normal NEGATIVE [facility] Comment on above: Performed By: #### Brandin SAAVEDRA UMICRO #### [facility] [address] [place] [address] Dr. Alecia Trejo Clarity (U) CLEAR Normal CLEAR [facility] Comment on above: Performed By: #### Brandin SAAVEDRA UMICRO #### [facility] [address] [place] [address] Dr. Alecia Trejo Color (U) LT. YELLOW Normal YELLOW [facility] Comment on above: Performed By: #### Brandin SAAVEDRA UMICRO #### [facility] [address] [place] [address] Dr. Alecia Trejo ERUANJUD A micrscopic examina tion will be performed if indicated. Normal [facility] Comment on above: Performed By: #### Brandin SAAVEDRA UMICRO #### [facility] [address] [place] [address] Dr. Alecia Trejo Glucose Ql (U) Negative Normal NEGATIVE [facility] Comment on above: Performed By: #### Brandin SAAVEDRA UMICRO #### [facility] [address] [place] [address] Dr. Alecia Trejo Hemoglobin Ql (U) Negative Normal NEGATIVE [facility] Comment on above: Performed By: #### REMY BOGGSRO #### [facility] [address] [place] [address] Dr. Alecia Trejo Ketones Ql (U) Negative Normal NEGATIVE [facility] Comment on above: Performed By: #### REMY BOGGSRO #### [facility] [address] [place] [address] Dr. Alecia Trejo LEUKOCYTES TRACE Abnormal NEGATIVE The [facility] Comment on above: Performed By: #### REMY BOGGSRO #### [facility] [address] [place] [address] Dr. Alecia Trejo Nitrite Ql (U) Negative Normal NEGATIVE [facility] Comment on above: Performed By: #### REMY BOGGSRO #### [facility] [address] [place] [address] Dr. Alecia Trejo pH (U) 6.5 [pH] Normal 5-9 [facility] Comment on above: Performed By: #### REMY BOGGSRO #### [facility] [address] [place] [address] Dr. Alecia Trejo SPEC GRAVITY 1.015 Normal 1.005-<=1.02 5 [facility] Comment on above: Performed By: #### REMY BOGGSRO #### [facility] [address] [place] [address] Dr. Alecia Trejo UA PROTEIN Negative Normal NEGATIVE/ TRACE [facility] Comment on above: Performed By: #### REMY BOGGSRO #### [facility] [address] [place] [address] Dr. Alecia Trejo UR MICRO IND INDICATED Normal [facility] Comment on above: Performed By: #### REMY BOGGSRO #### [facility] [address] [place] [address] Dr. Alecia Trejo Urobilinogen Qn (U) 0.2 {Mayra'U}/dL Normal 0.2 - 1. 0 [facility] Comment on above: Performed By: #### REMY BOGGSRO #### [facility] [address] [place] [address] Dr. Alecia Trejo URINE MICROSCOPIC ONLYon BACTERIA NONE SEEN Normal NONE SEEN The [facility] Comment on above: Performed By: #### E RUR, UMICRO #### [facility] [address] [place] [address] Dr. Alecia Trejo Bacteria identified Cx Nom (U) NOT INDICATED Normal [facility] Comment on above: Performed By: #### E RUR, UMICRO #### [facility] [address] [place] [address] Dr. Alecia Trejo CAST NONE SEEN Normal NONE SEEN The [facility] Comment on above: Performed By: #### E RUR UMICRO #### [facility] [address] [place] [address] Dr. Alecia Trejo Crystals LM Nom (Urine sed) NONE SEEN Normal NONE SEEN The [facility] Comment on above: Performed By: #### E RUR UMICRO #### [facility] [address] [place] [address] Dr. Alecia Trejo Epithelial cells LM Ql (Urine sed) NONE SEEN Normal NONE SEEN /RARE [facility] Comment on above: Performed By: #### Brandin SAAVEDRA UMICRO #### [facility] [address] [place] [address] Dr. Alecia Trejo MUCOUS NONE SEEN Normal NONE SEEN The [facility] Comment on above: Performed By: #### Brandin SAAVEDRA, UMICRO #### [facility] [address] [place] [address] Dr. Alecia Trejo RBC 0-2 Normal 0-[address] [facility] Comment on above: Performed By: #### E SABIHAR UMICRO #### [facility] [address] [place] [address] Dr. Alecia Trejo WBC 0-2 Abnormal NONE SEEN The [facility] Comment on above: Performed By: #### E RUR, UMICRO #### [facility] [address] [place] [address] Dr. Alecia Trejo MRI LSPINE WO CONon 03-07-20 22 MRI LSPINE WO CON EXAMINATION: MRI LSP INE WO CON HISTORY: Lumbago co-occurrent with right-side [...] by: CLAIR CORTES Date: 2022-03-07 14:18 Normal [facility] XR CSPINE 2_3 VIEWSon 2021 XR CSPINE [...] by: CLAIR CORTES Date: 2022-02-12 20:52 Normal [facility] ELBOW LEFT 3 [facility] 2 ELBOW LEFT 3 [facility] Department of Radiology [address] [place] [id number] == Patient Name: LOLIS QUINONES : 1985 Sex: M Age: Race: White Pt. Location: [facility] Patient Status: E Ordered Date: 12/22/2021 5:55:00 PM Completed Date: 12/22/2021 06:12 PM Requesting Provider: CHRISTINE OCHOA Attending Provider: DAT PERALTA Report Copy To: Signs & Symptoms: Pain History: Comments: FX Exam: ELBOW LEFT 3 [facility] == ELBOW LEFT 3 VWS 12/22/2021 6:12 PM CLINICAL INDICATIONS: Pain TECHNOLOGIST [...] swelling. Electronically signed: Haroldo Trivedi. Transcribed by: [email or web address], User Resident: Electronically Signed by: HAROLDO TRIVEDI @ 12/22/2021 06:[address] [facility] Comment on above: Order Comment: FX ELBOW RIGHT 3 Son 12-23-19 ELBOW RIGHT [address] [facility] Department of Radiology [address] [place] [phone] == Patient Name: LOLIS QUINONES : 1985 Sex: M Age: Race: White Pt. Location: [facility] Patient Status: E Ordered Date: 12/22/2021 5:55:00 PM Completed Date: 12/22/2021 06:10 PM Requesting Provider: CHRISTINE OCHOA Attending Provider: DAT PERALTA Report Copy To: Signs & Symptoms: Pain History: Comments: FX Exam: ELBOW RIGHT 3 S == ELBOW RIGHT 3 S 12/22/2021 6:10 PM CLINICAL INDICATIONS: Pain TECHNOLOGIST [...] swelling. Electronically signed: Haroldo Trivedi. Transcribed by: [email or web address], User Resident: Electronically Signed by: HAROLDO TRIVEDI @ 12/22/2021 06:23 PM Normal [facility] Comment on above: Order Comment: FX [...] by: CLAIR CORTES Date: 2021-12-11 15:45 Normal [facility] XR wrist RT 2Von 11-28-2021 XR wrist RT 2V [facility] [address] [place] [address] XRay Report Signed Patient: Lolis Quinones III MR#: [id number] : 1985 Acct:[id number] Age/Sex: 36 / M ADM Date: 11/28/21 Loc: SOXD Room: Type: [facility] CLI Attending Dr: Tayler Dill MD Ordering [...] Ivan Allan M.D.11/28/2021 1:13 PM Dictation Location: [place] [address] Transcribed By: [facility] 11/28/21 1313 Dictated By: Ivan Allan DO 11/28/21 1311 Signed By: 11/28/21 1313 Normal [facility] XR chest 2V*on 03-30-2021 XR chest 2V* [facility] [address] [place] [address] XRay Report Signed Patient: Lolis Quinones III MR#: [id number] : 1985 Acct:[id number] Age/Sex: 36 / M ADM Date: 03/30/21 Loc: XDUCLY Room: Type: REG CLI Attending Dr: Eden Healy NP Ordering Provider: Eden Healy NP Date of Service: 03/30/21 XR/XR chest 2V*: Cough Copies to: Eden Healy FISCAL ACCOUNTANT PA AND LATERAL CHEST: CLINICAL HISTORY: Dry [...] Kathie Salamanca M.D.03/30/2021 3:35 PM Dictation Location: [place] [address] Transcribed By: [facility] 03/30/21 1533 Dictated By: Kathie Salamanca MD 03/30/21 1455 Signed By: 03/30/21 1531 [facility] Vital Signs Date Time Vital Sign Value Performing Clinician Sunili jada 05-07-2025 13:15-0400 Body height 157.5 cm Marty Arriaga MD Work Phone: [facility] 05-07-2025 13:15-0400 Body mass index (BMI) [Ratio] 37.49 kg/m2 Marty Arriaga MD Work Phone: [facility] 05-07-2025 13:15-0400 Body weight 92.99 kg Marty Arriaga MD Work Phone: [facility] 05-07-2025 13:15-0400 Diastolic blood pressure 62 mm[Hg] Marty Arriaga MD Work Phone: [facility] 05-07-2025 13:15-0400 Heart rate 73 /min Marty Arriaga MD Work Phone: [facility] 05-07-2025 13:15-0400 SaO2% (BldA) [Mass fraction] 90 % Marty Arriaga MD Work Phone: [facility] 05-07-2025 13:15-0400 Systolic blood pressure 104 mm[Hg] Marty Arriaga MD Work Phone: [facility] 05-28-2024 13:46-0400 Body mass index (BMI) [Ratio] 30.99 kg/m2 Zacharyer Traci DO Work Phone: [facility] 05-28-2024 13:46-0400 Body weight 77.47 kg Christopher Traci DO Work Phone: [facility] 05-28-2024 13:46-0400 Diastolic blood pressure 57 mm[Hg] Rosaliaopher Traci DO Work Phone: [facility] 05-28-2024 13:46-0400 Systolic blood pressure 105 mm[Hg] Zacharyer Traci DO Work Phone: [facility] 10-01-2022 10:11-0500 Blood Pressure Location jC ALANIS [facility] 10-01-2022 10:11-0500 Diastolic blood pressure 80 mm[Hg] Cj ALANIS [facility] 10-01-2022 10:11-0500 Heart rate 70 /min Cjmaurice ALANIS [facility] 10-01-2022 10:11-0500 Respiratory rate 16 /min Cj ALANIS [facility] 10-01-2022 10:11-0500 Systolic blood pressure 129 mm[Hg] Cj ALANIS [facility] 10-17-2021 14:15-0500 Body height 160.02 cm Tayler Olexa Other [employer] Other 10-17-2021 14:15-0500 Body mass index (BMI) [Ratio] 34.54 kg/m2 Tayler Olexa Other [employer] Other 10-17-2021 14:15-0500 Body weight 88.45 kg Tayler Olexa Other [employer] Other Encounters Encounter Date Encounter Type Care Provider Facility Start: 06-08-2025 End: 06-08-2025 Follow-up encounter Stacy [facility] Comment on above: Echo complete W/O co ntrast Start: 06-08-2025 End: 06-08-2025 Telephone encounter Leonor Castle [facility] Comment on above: ABBIE Start: 06-07-2025 End: 06-07-2025 ambulatory THOMASTON [facility] Start: 06-02-2025 End: 06-02-2025 Telephone encounter Rajeev Salamanca FISCAL ACCOUNTANT Work Phone: [facility] Start: 05-15-2025 End: 05-15-2025 Telephone encounter Rajeev Salamanca FISCAL ACCOUNTANT Work Phone: [facility] Start: 05-07-2025 End: 05-07-2025 Office consultation new/estab patient 40 min Marty Arriaga MD Work Phone: [facility] Comment on above: Chronic heart failur e with preserved ejection fraction (CMS- HCC) (Primary Dx); Cardiomegaly Start: 05-07-2025 End: 05-07-2025 ambulatory THOMASTON [facility] Start: 05-06-2025 End: 05-06-2025 Telephone encounter Dion[facility] Hernandez [facility] Start: 05-03-2025 End: 05-03-2025 Telephone encounter Rajeev Salamanca FISCAL ACCOUNTANT Work Phone: [facility] Start: 04-29-2025 End: 04-29-2025 Chart abstracting Scanning Provider External [facility] Start: 04-14-2025 End: 04-14-2025 Telephone encounter Rajeev Salamanca FISCAL ACCOUNTANT Work Phone: [facility] Start: 03-18-2025 End: 03-18-2025 Telephone encounter Rajeev Salamanca FISCAL ACCOUNTANT Work Phone: [facility] Start: 03-15-2025 End: 03-15-2025 Evaluation and management of inpatient ERLINDA J [facility] Start: 03-11-2025 End: 03-11-2025 Unlisted evaluation and management service Curtis Ahuja MD Work Phone: Radiation Oncology Comment on above: Opened In Error Start: 02-23-2025 End: 02-23-2025 Telephone encounter Rajeev Salamanca NP Work Phone: [facility] Start: 01-26-2025 End: 01-26-2025 Evaluation and management of inpatient ERLINDA Ang 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); Brainstem stroke (CMS/HCC); Spasticity Start: 01-13-2025 End: 01-13-2025 ambulatory CHRISTINA EVANS Not Available Start: 01-12-2025 End: 01-12-2025 Evaluation and management of inpatient SERGEI ROOT [place] Start: 01-12-2025 End: 01-12-2025 Admission to [facility] Phone Call Provider 2 [facility] Start: 12-25-2024 End: 12-25-2024 Telephone encounter Rajeev Salamanca FISCAL ACCOUNTANT Work Phone: [facility] Start: 12-08-2024 End: 12-08-2024 ambulatory RAJEEV SALAMANCA [place] Start: 11-18-2024 End: 11-18-2024 Evaluation and management of inpatient ERLINDA TEJADA [place] Start: 11-10-2024 End: 11-10-2024 ambulatory JACKIE SIMMONS Not Available Start: 11-10-2024 End: 11-10-2024 Bamboo flowsheet Jackie Simmons FISCAL ACCOUNTANT Work Phone: [facility] Start: 11-10-2024 End: 11-10-2024 Bamboo flowsheet Jackie Simmnos FISCAL ACCOUNTANT Work Phone: [facility] Start: 10-27-2024 End: 10-27-2024 Telephone encounter Rajeev Salamanca FISCAL ACCOUNTANT Work Phone: [facility] Start: 09-18-2024 End: 09-18-2024 Telephone encounter Rajeev Salamanca FISCAL ACCOUNTANT Work Phone: [facility] Start: 07-28-2024 End: 07-28-2024 Telephone encounter Rajeev Salamanca FISCAL ACCOUNTANT Work Phone: [facility] Start: 06-25-2024 End: 06-25-2024 Telephone encounter Rajeev Salamanca FISCAL ACCOUNTANT Work Phone: [facility] Start: 06-16-2024 End: 06-16-2024 ambulatory Mariela Hall RN [facility] [employer] RN Comment on above: Patient Update Start: 06-16-2024 End: 06-16-2024 Telephone encounter Sruthi Rai MD Work Phone: Dermatology Start: 05-28-2024 End: 05-28-2024 Bamboo flowsheet Radha Aviles DO Work Phone: [facility] Start: 05-28-2024 End: 05-28-2024 Bamboo flowsheet Zacharyer Traci DO Work Phone: [facility] Start: 05-28-2024 End: 05-28-2024 Office outpatient new 60 minutes Radha Aviles DO Work Phone: [facility] Comment on above: 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); Brainstem stroke (CMS/HCC); Spasticity; Osteomyelitis, unspecified site, unspecified type (CMS/HCC) Start: 05-28-2024 End: 05-28-2024 ambulatory ROSALIADIRK AVILES Not Available Start: 05-20-2024 End: 05-20-2024 ambulatory SERGEI Jonas ROOT II Facility:[facility] Start: 05-20-2024 End: 05-20-2024 Subsequent hospital visit by physician Mri 4 Radio Main Q (I-Stat/1.5t/3t) Work Phone: MRI Q Comment on above: 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] Start: 05-20-2024 End: 05-20-2024 Telephone encounter Rajeev Salamanca FISCAL ACCOUNTANT Work Phone: [facility] Start: 04-01-2024 End: 04-01-2024 Subsequent hospital visit by physician Mri 6 Radio Main Q (I-Stat/1.5t/3t) Work Phone: MRI Q Comment on above: Canceled (CC cx: Err or or Template Change) Start: 01-03-2024 End: 01-03-2024 ambulatory Jf Waldron MD Work Phone: Hematology/Oncology Comment on above: Iron deficiency anem ia due to chronic blood loss (Primary Dx) Start: 01-03-2024 End: 01-03-2024 Telemedicine consultation with patient Jf Waldron MD Work Phone: Hematology/Oncology Start: 01-03-2024 Telephone encounter fJ conti MD Work Phone: Cancer [facility] Comment on above: Results Start: 01-02-2024 Chart abstracting Yancy Perez MA Hem atology/Oncology Start: 01-01-2024 Telephone encounter Varun Funez MD Work Phone: Pulmonary Medicine Comment on above: Patient Question Start: 12-23-2023 End: 12-23-2023 Subsequent hospital visit by physician Mri [facility] (Lg Bore/1.5t) Radiology MRI Comment on above: Canceled (CC cx: Err or or Template Change) Start: 12-20-2023 Telephone encounter Radiologis t Radiology Work Phone: MR IMAGING Start: 11-26-2023 End: 11-26-2023 Evaluation and management of inpatient CAL MORRIS Facility:[facility] Start: 11-21-2023 End: 11-28-2023 Evaluation and management of inpatient NIGEL GUTIERREZ Facility:[facility] Start: 11-21-2023 ambulatory Yash Buschsarah GRID MOLDER Work Phone: Critical Care Start: 11-08-2023 ambulatory Leon Plascencia MD Work Phone: Infectious Disease Comment on above: [employer] Start: 10-24-2023 ambulatory Leon Plascencia MD Work Phone: Infectious Disease Comment on above: [employer] Start: 10-23-2023 ambulatory Leon Plascencia MD Work Phone: Infectious Disease Comment on above: [employer] Start: 10-17-2023 End: 10-17-2023 Evaluation and management of inpatient SERGEI ROOT II Facility:[facility] Start: 10-16-2023 End: 10-16-2023 Evaluation and management of inpatient SERGEI ROOT II Facility:[facility] Start: 10-09-2023 End: 10-23-2023 Evaluation and management of inpatient ADOLFO BEEBEDE Facility:[facility] Start: 10-07-2023 ambulatory [facility]IS [facility]LESLYE [facility] Start: 09-03-2023 Telephone encounter Coleman tate MD Work Phone: [facility] Start: 10-01-2022 End: 10-02-2022 ambulatory Cj ALANIS Facility:[facility] Start: 10-01-2022 End: 10-01-2022 Patient encounter procedure Cj ALANIS [facility] Start: 08-18-2022 End: 08-18-[address] DANII MCNEIL Facility: Start: 03-07-2022 End: 03-08-[address] DANII MCNEIL Facility:[facility] Start: 02-12-2022 End: 02-13-[address] DANII MCNEIL Facility:[facility] Start: 01-13-2022 End: 01-13-[address] DANII MCNEIL Facility:[facility] Start: 12-22-2021 End: 12-22-2021 Emergency department patient visit Christine Beto Facility:[facility] Start: 12-11-2021 End: 12-12-2021 ambulatory HAROLDO ORTIZ Facility: Start: 11-28-2021 End: 11-28-2021 ambulatory Tayler Olexa Other [employer] Other Start: 11-28-2021 Postop follow up vis it related to original px Tayler Olexa [facility] Start: 11-07-2021 End: 11-08-2021 ambulatory TAYLER OLEXA [employer] Other Start: 11-07-2021 Postop follow up vis it related to original px Tayler Olexa [facility] Start: 10-17-2021 End: 10-17-2021 ambulatory Tayler Olexa Other [employer] Other Start: 10-17-2021 [facility] visit new patient Tayler Olexa [facility] Start: 10-16-2021 End: 10-16-[address] DANII MCNEIL Facility: Procedures Date Procedure Procedure Detail Performing Clinician Start: 05-20-2024 Mri pelvis w/o & w/contrast material Ariane Sexton DO Work Phone: Start: 11-22-2023 Antibody screen ENDRIT ANTONIO Comment on above: Order Comment: Speci men Type: BLOOD SPECIMENOrdering Facility: [facility] Address: [address] [place] [address] Performed By: #### T SCR ####JOHANNE BLOOD BANKCLIA [id number] [place] [address] [place] Start: 11-22-2023 Lipid 1996 panel - S emely or Plasma Yash Andrysek MOLD ENGRAVER.GRID MOLDER Work Phone: Start: 10-18-2023 Antibody screen SERGEI ROOT II Comment on above: Order Comment: Speci men Type: BLOOD SPECIMENOrdering Facility: [facility] Address: [address] [place] [address] Performed By: #### T SCR ####CC MAIN BLOOD BANKCLIA [id number] [address] Start: 10-18-2023 H/O: tracheostomy History of tracheostomy Leon Plascencia MD Work Phone: Start: 10-15-2023 Antibody screen SERGEI ROOT II Comment on above: Order Comment: Speci men Type: BLOOD SPECIMENOrdering Facility: [facility] Address: [address] [place] [address] Performed By: #### T SCR ####CC MAIN BLOOD BANKCLIA [id number] [address] Start: 10-13-2023 Antibody screen SERGEI ROOT II Comment on above: Order Comment: Speci men Type: BLOOD SPECIMENOrdering Facility: [facility] Address: [address] [place] [address] Performed By: #### T SCR ####CC MAIN BLOOD BANKCLIA [id number] [address] Start: 10-10-2023 Maia ROOT II Start: 10-09-2023 Antibody screen SERGEI ROOT II Comment on above: Order Comment: Speci men Type: BLOOD SPECIMENOrdering Facility: [facility] Address: [address] [place] [address] Performed By: #### T SCR ####CC MAIN BLOOD BANKCLIA [id number] [address] Start: 08-13-2023 Adult depression scr eening kelly Garcia MD Work Phone: Start: 06-11-2023 Lipid 1996 panel - S emely or Plasma Leon Plascencia MD Work Phone: Start: 01-22-2019 Diagnostic endoscopi c examination on colon Cj ALANIS back surgery Cj ALANIS Repair of inguinal hernia Vipin ALANIS Plan of Treatment Date Care Activity Detail Author Start: 11-21-2028 Lipid panel Lipid Screening [facility] Start: 06-11-2028 Lipid panel Lipid Screening [facility] Start: 05-07-2026 Adult BMI Screening Adult BMI Screening [facility] Start: 05-07-2026 Tobacco Screening Tobacco Screening [facility] Start: 03-15-2026 Adult BMI Screening Adult BMI Screening [facility] Start: 03-15-2026 Tobacco Screening Tobacco Screening [facility] Start: 11-18-2025 Adult BMI Screening Adult BMI Screening [facility] Start: 11-18-2025 Tobacco Screening Tobacco Screening [facility] Start: 07-20-2025 End: 07-20-2025 Patient encounter procedure 07/20/2025 10:00 AM EST Appointment [facility] [address] [place] [address] [facility] Start: 07-07-2025 End: 07-07-2025 Admission to same day surgery center 07/07/2025 10:30 AM EDT - 07/07/2025 11:15 AM EDT Surgery [facility] - Surgery [facility] [place] [address] Erlinda Tejada MD [address] [id number] BRONCHOSCOPY [10535 (CPT )] [facility] - Surgery Comment on above: BRONCHOSCOPY [95636 (CPT )] Start: 07-07-2025 End: 07-07-2025 [facility]cell washg spx BRONCHOSCOPY Chronic respiratory failure with hypoxia ([facility]) Encounter for weaning from respirator ([facility]) Tracheostomy status ([facility]) 07/07/2025 10:30 AM EDT [facility] Start: 07-07-2025 Subsequent hospital visit by physician 07/07/2025 10:30 AM EDT Hospital Encounter [facility] Surgery [address] [place] [address] Erlinda Tejada MD [address] [facility] [address] [place] [address] [facility] Surgery Start: 07-06-2025 End: 07-06-2025 Patient encounter procedure 07/06/2025 2:15 PM EDT Office Visit [facility] [address] [facility] [address] [place] [address] Tayler Nuñez MD [address] [place] [phone] Marty Arriaga MD [address] [place] [address] [facility] Start: 07-01-2025 End: 07-01-2025 Patient encounter procedure 07/01/2025 11:00 AM EDT Appointment [place] [facility] [address] [place] [phone] Marty Arriaga MD [address] [place] [address] Leydi Worley DO [address] [place] [address] [place] [facility] Start: 06-28-2025 End: 06-28-2025 Patient encounter procedure 06/28/2025 12:45 PM EDT Office Visit [facility] [address] [place] [address] Tayler Nuñez MD [address] [place] [address] [facility] Start: 06-23-2025 End: 06-23-2025 Admission to establishment 06/23/2025 9:00 AM EDT Support Visit [facility] On [address] [address] [facility] Start: 06-21-2025 End: 06-21-2025 Patient encounter procedure 06/21/2025 1:00 PM EDT Appointment [facility] Imaging [address] [place] [address] [facility] Start: 05-10-2025 COVID-19 Vaccine ( season) COVID-19 Vaccine ( season) [facility] Start: 05-10-2025 Influenza vaccination [facility] Start: 05-07-2025 End: 05-07-2026 Echo complete W/O contrast Echo complete W/O contrast Echocardiography Routine Cardiomegaly Expected: 05/07/2025, Expires: 05/07/2026 [facility] Work Phone: Comment on above: Expected: 05/07/2025, Expires: Start: 05-07-2025 End: 05-07-2025 Patient encounter procedure 05/07/2025 1:30 PM EDT Office Visit [facility] [address] [place] [address] Marty Arriaga MD [address] [place] [address] [facility] Start: 03-30-2025 End: 03-30-2025 Patient encounter procedure 03/30/2025 11:40 AM EDT Office Visit [facility] [address] [place] [phone] Jackie Simmons NP [address] [place] [address] [facility] Start: 01-26-2025 End: 01-26-2025 Admission to same day surgery center 01/26/2025 10:00 AM EDT - 01/26/2025 11:00 AM EDT Surgery [facility] [address] [place] [address] Erlinda Tejada MD [address] [place] [address] [id number] BRONCHOSCOPY [82922 (CPT )] [facility] Comment on above: BRONCHOSCOPY [37422 (CPT )] Start: 01-26-2025 End: 01-26-2025 [facility]cell washg spx BRONCHOSCOPY CHRONIC RESPIRATORY FAILURE RESPIRATOR DEPENDENT TRACHEOSTOMY STATUS 01/26/2025 10:00 AM EDT [facility] Start: 01-26-2025 Subsequent hospital visit by physician 01/26/2025 10:00 AM EDT Hospital Encounter [facility] [address] [place] [address] Erlinda Tejada MD [address] [place] [address] [phone] [facility] Start: 01-26-2025 End: 01-26-2025 Tracheotomy tube change prior to fistula tract EXCHANGE TUBE TRACHEOSTOMY CHRONIC RESPIRATORY FAILURE RESPIRATOR DEPENDENT TRACHEOSTOMY STATUS 01/26/2025 10:00 AM EDT [facility] Start: 01-13-2025 End: 01-13-2025 Patient encounter procedure ASYA TOBAR Comment on above: Arrived Start: 11-10-2024 End: 11-10-2024 Patient encounter procedure [address]AH TOBAR [address] Comment on above: Arrived Start: 08-24-2024 Adult BMI Screening Adult BMI Screening [facility] Start: 08-20-2024 Tobacco Screening Tobacco Screening [facility] Start: 08-13-2024 Depression Screening Depression Screening [facility] Start: 05-28-2024 End: 05-28-2024 Patient encounter procedure [address]AH TOBAR [address] Comment on above: Arrived Start: 05-20-2024 End: 05-20-2024 Patient encounter procedure 05/20/2024 4:40 PM EDT Appointment MRI Q [address] [address] MRI PELVIS WOW/IVCON MRI Q Comment on above: MRI PELVIS WOW/IVCON Start: 05-10-2024 Covid-19 Vaccine ( season) Covid-19 Vaccine () [facility] Start: 05-10-2024 Covid-19 Vaccine ( season) Covid-19 Vaccine ( season) [facility] Start: 05-10-2024 Influenza vaccination [facility] Start: 01-28-2024 End: 01-28-2024 Patient encounter procedure 01/28/2024 3:00 PM EDT Appointment MRI Q [address] [address] Coming from [facility] facility w/ventilator and has outside respiratory therapist to manage the ventilator. Arriving in wheel chair as quadriplegic w/no mobility. MRI Q Comment on above: Coming from [facility] facility w/v entilator and has outside respiratory therapist to manage the ventilator. Arriving in wheel chair as quadriplegic w/no mobility. Start: 01-03-2024 End: 01-03-2024 ambulatory 01/03/2024 3:30 PM EDT [facility] Hematology/Oncology [address] [place] [address] Jf Waldron MD [address] [place] [address] [place] [address] CHRONIC ANEMIA Hematology/Oncology Comment on above: CHRONIC ANEMIA Start: 01-03-2024 End: 01-02-2025 CBC W Auto Differential panel - Blood COMPLETE BLOOD COUNT AND DIFFERENTIAL Lab Routine Iron deficiency anemia due to chronic blood loss Expected: 01/03/2024, Expires: 01/02/2025 [facility] Work Phone: Comment on above: Expected: 01/03/2024, Expires: Start: 01-03-2024 End: 01-02-2025 Cobalamin (Vitamin B12) [Mass/volume] in Serum or Plasma VITAMIN B12 Lab Routine Iron deficiency anemia due to chronic blood loss Expected: 01/03/2024, Expires: 01/02/2025 [facility] Comment on above: Expected: 01/03/2024, Expires: Start: 01-03-2024 End: 01-02-2025 Comprehensive metabolic 2000 panel - Serum or Plasma COMPREHENSIVE METABOLIC PANEL Lab Routine Iron deficiency anemia due to chronic blood loss Expected: 01/03/2024, Expires: 01/02/2025 [facility] Comment on above: Expected: 01/03/2024, Expires: Start: 01-03-2024 End: 04-03-2024 Erythropoietin (EPO) [Units/volume] in Serum or Plasma ERYTHROPOIETIN/EPO Lab Routine Iron deficiency anemia due to chronic blood loss Expected: 01/03/2024, Expires: 04/03/2024 [facility] Comment on above: Expected: 01/03/2024, Expires: Start: 01-03-2024 End: 01-02-2025 Ferritin [Mass/volume] in Serum or Plasma FERRITIN Lab Routine Iron deficiency anemia due to chronic blood loss Expected: 01/03/2024, Expires: 01/02/2025 [facility] Comment on above: Expected: 01/03/2024, Expires: Start: 01-03-2024 End: 01-02-2025 Folate [Mass/volume] in Serum or Plasma FOLATE, SERUM Lab Routine Iron deficiency anemia due to chronic blood loss Expected: 01/03/2024, Expires: 01/02/2025 [facility] Comment on above: Expected: 01/03/2024, Expires: 5 Start: 01-03-2024 End: 04-03-2024 Haptoglobin [Mass/volume] in Serum or Plasma HAPTOGLOBIN Lab Routine Iron deficiency anemia due to chronic blood loss Expected: 01/03/2024, Expires: 04/03/2024 [facility] Comment on above: Expected: 01/03/2024, Expires: 4 Start: 01-03-2024 End: 01-02-2025 Iron and Iron binding capacity panel - Serum or Plasma IRON AND TIBC Lab Routine Iron deficiency anemia due to chronic blood loss Expected: 01/03/2024, Expires: 01/02/2025 [facility] Comment on above: Expected: 01/03/2024, Expires: 5 Start: 01-03-2024 End: 04-03-2024 Lactate dehydrogenase [Enzymatic activity/volume] in Serum or Plasma LACTATE DEHYDROGENASE Lab Routine Iron deficiency anemia due to chronic blood loss Expected: 01/03/2024, Expires: 04/03/2024 [facility] Comment on above: Expected: 01/03/2024, Expires: 4 Start: 01-03-2024 End: 04-03-2024 RETICULOCYTE COUNT RETICULOCYTE COUNT Lab Routine Iron deficiency anemia due to chronic blood loss Expected: 01/03/2024, Expires: 04/03/2024 [facility] Comment on above: Expected: 01/03/2024, Expires: 4 Start: 09-09-2023 Behavioral Health Screening Behavioral Health Screening [facility] Start: 09-09-2023 Depression Assessment Depression Assessment [facility] Start: 05-10-2023 Covid-19 Vaccine () Covid-19 Vaccine () [facility] Start: 05-10-2023 Influenza vaccination [facility] Start: 01-29-2003 DTaP,Tdap and Td Vaccines (1 - Tdap) DTaP,Tdap and Td Vaccines (1 - Tdap) [facility] Start: 01-29-2003 Hepatitis B Vaccine (1 of 3 - 19+ 3-dose series) Hepatitis B Vaccine (1 of 3 - 19+ 3-dose series) [facility] Start: 01-29-2003 Pneumococcal vaccination Pneumococcal Vaccine (1 of 2 - PCV) [facility] Start: 01-29-2003 Urine microalbumin profile DTaP,Tdap,Td Vaccine (1 - Tdap) [facility] Start: 01-29-2002 Adult BMI Follow Up Plan Adult BMI Follow Up Plan [facility] Start: 01-29-2002 Anxiety Screening Anxiety Screening [facility] Start: 01-29-2002 Depression Screening Depression Screening [facility] Start: 01-29-2002 Hepatitis C screening Hepatitis C Screening [facility] Start: 01-29-2002 HIV screening HIV Screening [facility] Start: 1984 Hepatitis B Vaccine (1 of 3 - 3-dose series) Hepatitis B Vaccine (1 of 3 - 3-dose series) [facility] Immunizations Immunization Date Immunization Notes Care Provider [facility] 06-11-2022 influenza virus vaccine, unspecified formulation Cj ALANIS [facility] 06-11-2022 Seasonal, quadrivale nt, recombinant, injectable influenza vaccine, preservative free Coleman Garcia MD Work Phone: [facility] 09-12-2021 SARS-CoV-2 (COVID-19 ) mRNA-1273 vaccine Cj ALANIS [facility] 07-03-2021 influenza virus vaccine, unspecified formulation Cj ALANIS [facility] 07-03-2021 influenza, seasonal, injectable Coleman Garcia MD Work Phone: [facility] 06-09-2021 influenza virus vaccine, unspecified formulation Cj ALANIS [facility] 10-21-2020 SARS-CoV-2 (COVID-19 ) mRNA-1273 vaccine Cj ALANIS [facility] 09-23-2020 SARS-CoV-2 (COVID-19 ) mRNA-1273 vaccine Cj ALANIS [facility] 09-09-2020 SARS-CoV-2 (COVID-19 ) mRNA-1273 vaccine Cj ALANIS [facility] Comment on above: Result Comment: Pt h as had all 3 shots to date but does not have his card today. 06-23-2020 influenza virus vaccine, unspecified formulation Cj ALANIS [facility] 06-23-2020 influenza, injectabl e, quadrivalent, preservative free Coleman Garcia MD Work Phone: [facility] 06-20-2020 influenza virus vaccine, unspecified formulation Cj ALANIS [facility] 06-23-2019 influenza virus vaccine, unspecified formulation Cjmaurice ALANIS [facility] 06-23-2019 influenza, injectabl e, quadrivalent, preservative free Coleman Garcia MD Work Phone: [facility] 06-02-2018 influenza virus vaccine, unspecified formulation Cj ALANIS [facility] 06-02-2018 influenza, injectabl e, quadrivalent, contains preservative Coleman Gacria MD Work Phone: [facility] 06-05-2017 influenza virus vaccine, unspecified formulation Cjmaurice ALANIS [facility] 06-05-2017 influenza, seasonal, injectable Coleman Gracia MD Work Phone: [facility] 07-17-2016 influenza virus vaccine, unspecified formulation Cj ALANIS [facility] 07-17-2016 influenza, seasonal, injectable, preservative free Coleman Garcia MD Work Phone: [facility] 02-09-2014 influenza virus vaccine, unspecified formulation Cj ALANIS [facility] 02-09-2014 influenza, injectabl e, quadrivalent, preservative free Coleman Garcia MD Work Phone: [facility] 02-13-2007 hepatitis B vaccine, pediatric or pediatric/adolescent dosage Cj ALANIS [facility] 10-16-2006 hepatitis B vaccine, pediatric or pediatric/adolescent dosage Cj ALANIS [facility] 08-28-2006 hepatitis B vaccine, pediatric or pediatric/adolescent dosage Cj ALANIS [facility] Payers Date Payer Category Payer Medicaid [id number] 2024 Medicaid [id number] 2023 [facility] [employer] [id number] 2020 Worker's Compensation [id number] 2019 Private Health Insurance [id number] 2019 Unknown [id number] .[id number] 1984 Unknown [id number] 2.16.840.1.150422.3.579.2 .647 1984 Unknown [id number] 2.16.840.1.015044.3.579.2 .593 1984 Unknown [id number] 2.16.840.1.694340.3.579.2 .593 1984 Unknown [id number] 2.16.840.1.134209.3.579.2 .593 1984 Unknown [id number] 2.16.840.1.899445.3.579.2 .593 1984 Unknown [id number] 2.16.840.1.695054.3.579.2 .593 1984 Unknown [id number] 2.16840.1.710236.3.579.2 .593 1984 Unknown [id number] 2.16.840.1.112751.3.579.2 .593 1984 Unknown [id number] 2.16.840.1.359442.3.579.2 .727 1984 Unknown [id number] 2.16.840.1.698641.3.579.2 .727 1984 Unknown [id number] 2.16840.1.742010.3.579.2 .1259 1984 Unknown [id number] 2.16.840.1.641892.3.579.2 .1259 1984 Unknown [id number] 2.16.840.1.280317.3.579.2 .1259 1984 Unknown [id number] 2.16.840.1.975254.3.579.2 .1286 1984 Unknown [id number] 2.16.840.1.649895.3.579.2 .1286 1984 Unknown [id number] 2.16.840.1.562652.3.579.2 .1286 1984 Unknown [id number] 2.16.840.1.695495.3.579.2 .1286 1984 Unknown [id number] 2.16.840.1.672735.3.579.2 .1286 1984 Unknown [id number] 2.16.840.1.248913.3.579.2 .1286 1984 Unknown [id number] 2.16.840.1.404248.3.579.2 .1286 1959 Unknown [id number] 2.16.840.1.512865.19 Social History Date Type Detail Facility Start: 10-20-2020 End: 10-10-2023 Sex Assigned At [facility] Start: 10-05-2019 End: 08-13-2023 Tobacco smoking status Never smoked tobacco (finding) [facility] Start: 10-10-2023 End: 01-02-2024 Alcohol intake Current non-drinker of alcohol (finding) [facility] Start: 10-20-2020 End: 10-10-2023 History of Social function [facility] Start: 1985 Sex Assigned At Not on file [facility] Has the [employer], [employer], or water [employer] threatened to shut off services in your home in past 12Mo No [facility] (I/We) worried wheth er (my/our) food would run out before (I/we) got money to buy more. Never true [facility] In the past 12 month s, has lack of transportation kept you from medical appointments or from getting medications? No [facility] History of tobacco use Passive smoker [facility] Start: 08-13-2023 End: 01-02-2024 Tobacco use and exposure Smokeless tobacco non-user [facility] Tobacco smoking stat [facility] Tobacco smoking consumption unknown [facility] Start: 11-21-2022 Gender identity Identifies as male gender (finding) [facility] Start: 08-20-2023 End: 05-07-2025 Alcohol intake Ex-drinker (finding) [facility] How often to you hav e a drink containing alcohol? Monthly or less [facility] How many standard dr inks containing alcohol do you have on a typical day? 1 or 2 [facility] How often do you hav e 6 or more drinks on 1 occasion? Never [facility] Start: 08-13-2023 Alcohol Comment Rarely [facility] Start: 04-14-2015 Sex [facility] (finding[facility] Equipment Procedure Code Equipment Code Equipment Origin al Text Equipment Identifier Dates Ptty Puros Dbm W Rpm 2.5cc - [id number] - [id number] Start: 08-27-2017 Comment on above: Description: 10/13/17 Copied Lot no. to Serial no. field to link with [employer] Tissue Tracking System. Abbe CORCORAN Bone Spacer 7mm Can - [id number] - [id number] Start: 08-27-2017 Comment on above: Description: 10/13/17 Corrected Serial no. ([id number]) to link with [employer] TIssue Tracking System. Abbe CORCORAN Plt 40mm Trinica Slc 2 Lvl - Sn/A - [id number] Start: 08-27-2017 Scr Bn 16mm 4.2m m Slf Drl Juan - Sn/A - [id number] Start: 08-27-2017 Incv/Bngf Emmett 8 mm Spcr Use [id number] + [id number] + [id number] - [id number] - [id number] Start: 08-27-2017 Goals Date Patient Goal Desired Activity /State Personal health goal Comment on above: Formatting of this n ote might be different from the original. Evaluation of progress towards goal: to go to [facility] at discharge for continued care Personal health goal Comment on above: Formatting of this n ote might be different from the original. Evaluation of progress towards goal: Patient parents confirmed plan to return to [place]. Personal health goal Personal health goal Functional Status Date Assessment Result Facility 10-01-2022 Functional Status N/A [facility] Clinical Notes 10-16-2021 to 06-08-2025 Telephone Encounter - Leonor Castle RN - 06/08/2025 3:26 PM EDTTelephone Encounter - Leonor Castle RN - 06/08/2025 3:26 PM EDTTelephone Encounter - Rajeev Salamanca NP - 06/02/2025 1:00 PM EDT Note Date & Type Note Facility 06-08-2025 Miscellaneous Notes Received order from Stacy at the [facility] office. Patient scheduled for cath on 07/01/25 at 11 AM at [facility] with . Notified Stacy. documented in this encounter [facility] 06-08-2025 Telephone encounter Note Received order from Stacy at the [facility] office. Patient scheduled for cath on 07/01/25 at 11 AM at [facility] with . Notified Stacy. [facility] 06-02-2025 Telephone encounter Note Requested Prescriptions Signed Prescriptions Disp Refills LORazepam (Ativan) 1 MG tablet 90 tablet 3 Sig: Take 1 tablet (1 mg) by mouth in the morning and 1 tablet (1 mg) in the evening and 1 tablet (1 mg) before bedtime. Authorizing Provider: RAJEEV SALAMANCA oxyCODONE (Roxicodone) 10 MG immediate release tablet 90 tablet 0 Sig: Take 1 tablet (10 mg) by mouth every 8 (eight) hours Authorizing Provider: RAJEEV SALAMANCA [facility] 06-02-2025 Miscellaneous Notes Requested Prescriptions Signed Prescriptions Disp Refills LORazepam (Ativan) 1 MG tablet 90 tablet 3 Sig: Take 1 tablet (1 mg) by mouth in the morning and 1 tablet (1 mg) in the evening and 1 tablet (1 mg) before bedtime. Authorizing Provider: RAJEEV SALAMANCA oxyCODONE (Roxicodone) 10 MG immediate release tablet 90 tablet 0 Sig: Take 1 tablet (10 mg) by mouth every 8 (eight) hours Authorizing Provider: RAJEEV SALAMANCA documented in this encounter [facility] 05-15-2025 Telephone encounter Note Requested Prescriptions Signed Prescriptions Disp Refills LORazepam (Ativan) 0.5 MG tablet 42 tablet 0 Sig: Take 1 tablet (0.5 mg) by mouth every 8 (eight) hours if needed for anxiety for up to 14 days Authorizing Provider: RAJEEV SALAMANCA This is a filion patient. [facility] 05-15-2025 Miscellaneous Notes Requested Prescriptions Signed Prescriptions Disp Refills LORazepam (Ativan) 0.5 MG tablet 42 tablet 0 Sig: Take 1 tablet (0.5 mg) by mouth every 8 (eight) hours if needed for anxiety for up to 14 days Authorizing Provider: RAJEEV SALAMANCA This is a filion patient. documented in this encounter [facility] 05-07-2025 History of Present illness Narrative Lolis Quinones III Date of visit: 05/07/2025 Date of : 1985 Age: 40 y.o. Patient Active Problem List Diagnosis Cervical spinal stenosis Cervical subluxation, initial encounter Spondylolisthesis of lumbar region Right bundle branch block Neuropathy Limited joint range of motion (ROM) Cervical spondylosis with myelopathy Urinary retention Status epilepticus ([facility]) Pressure injury of sacral region, stage 3 ([facility]) Pressure injury of deep tissue of left ankle Pneumonia Chronic heart failure with preserved ejection fraction ([facility]) Cardiomegaly on chest x-ray Ventilator dependent ([facility]) 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 ([facility]) Generalized edema Allergies Allergen Reactions Fentanyl Anaphylaxis Bactrim [Sulfamethoxazole-Trimethoprim] Prozac [Fluoxetine] Calcium Channel Blocking Agents-Dihydropyridines Rash Current Outpatient Medications Medication Sig Dispense Refill acetaminophen (TYLENOL) 325 mg tablet Administer 2 tablets (650 mg total) per tube every 6 (six) hours as needed for fever. albuterol (PROVENTIL,VENTOLIN) 2.5 mg /3 mL (0.083 %) nebulizer solution Inhale 3 mL (2.5 mg total) by nebulization every 6 (six) hours as needed for wheezing. apixaban (ELIQUIS) 5 mg tablet Take 1 tablet (5 mg total) by mouth in the morning and 1 tablet (5 mg total) before bedtime. 60 tablet 3 bacitracin ophthalmic ointment Administer 1 Application to both eyes once daily at bedtime Indications: blepharoconjunctivitis, an inflammatory disorder of the eyes. baclofen (LIORESAL) 10 mg tablet Administer 1 tablet (10 mg total) per tube in the morning and 1 tablet (10 mg total) at noon and 1 tablet (10 mg total) before bedtime. busPIRone (BUSPAR) 10 mg tablet Administer 1 tablet (10 mg total) per tube every 8 (eight) hours Indications: repeated episodes of anxiety. chlorhexidine (PERIDEX) 0.12 % solution Apply 15 mL to the mouth or throat in the morning and 15 mL before bedtime. cholecalciferol 1,000 units tablet Administer 1 tablet (1,000 Units total) per tube in the morning. ciprofloxacin HCl (CIPRO) 250 mg tablet Administer 1 tablet (250 mg total) per tube in the morning and 1 tablet (250 mg total) before bedtime. osteomyelitis. escitalopram (LEXAPRO) 10 mg tablet Administer 1 tablet (10 mg total) per tube in the morning. esomeprazole (NexIUM) 40 mg capsule Take 1 capsule (40 mg total) by mouth every morning before breakfast Indications: gastroesophageal reflux disease. ferrous sulfate 325 (65 FE) mg EC tablet Take 1 tablet (325 mg total) by mouth in the morning and 1 tablet (325 mg total) in the evening. Take with meals. G-tube. fexofenadine (MAKSIM) 180 mg tablet Take 1 tablet (180 mg total) by mouth in the morning. folic acid (FOLVITE) 1 mg tablet Take 1 tablet (1 mg total) by mouth in the morning. furosemide (LASIX) 40 mg tablet Administer 1 tablet (40 mg total) per tube daily. gabapentin (NEURONTIN) 100 mg capsule Administer 1 capsule (100 mg total) per tube 3 (three) times a day. gabapentin (NEURONTIN) 400 mg capsule Administer 1 capsule (400 mg total) per tube 3 (three) times a day. guaiFENesin (ROBITUSSIN) 100 mg/5 mL syrup Take 10 mL (200 mg total) by mouth in the morning. hydrOXYzine (VISTARIL) 50 mg capsule Take 1 capsule (50 mg total) by mouth 3 (three) times a day as needed for anxiety. ipratropium-albuteroL (DUONEB) 0.5 mg-3 mg(2.5 mg base)/3 mL nebulizer Inhale 3 mL by nebulization every 4 (four) hours as needed for wheezing. lamoTRIgine (LaMICtal) 25 mg tablet Take 2 tablets (50 mg total) by mouth before bedtime. lidocaine viscous (lidocaine) 2 % solution 6 mL 3 (three) times a day as needed (for tooth pain). LORazepam (ATIVAN) 1 mg tablet Administer 1 tablet (1 mg total) per tube every 8 (eight) hours as needed for anxiety. melatonin (CIRCADIN) tablet Administer 5 tablets (5 mg total) per tube nightly. methenamine (HIPREX) 1 gram tablet Administer 1 tablet (1 g total) per tube in the morning and 1 tablet (1 g total) before bedtime. metoclopramide (REGLAN) 5 mg tablet Administer 1 tablet (5 mg total) per tube in the morning and at bedtime. metOLazone (ZAROXOLYN) 5 mg tablet Administer 0.5 tablets (2.5 mg total) per tube 2 (two) times a day. Saturday, Saturday, Saturday 30 mins before lasix metoprolol tartrate (LOPRESSOR) 50 mg tablet Take 1 tablet (50 mg total) by mouth in the morning and 1 tablet (50 mg total) before bedtime. (Patient taking differently: Take 0.5 tablets (25 mg total) by mouth in the morning and 0.5 tablets (25 mg total) before bedtime.) 60 tablet 3 ondansetron (ZOFRAN) 4 mg tablet Take 1 tablet (4 mg total) by mouth every 6 (six) hours as needed for nausea or vomiting. oxybutynin XL (DITROPAN-XL) 5 mg 24 hr tablet Take 2.5 mg by mouth in the morning. oxyCODONE (ROXICODONE) 10 MG tablet immediate release tablet 1 tablet (10 mg total) by feeding tube route in the morning and 1 tablet (10 mg total) at noon and 1 tablet (10 mg total) in the evening and 1 tablet (10 mg total) before bedtime. oxyCODONE (ROXICODONE) 5 mg immediate release tablet Administer 1 tablet (5 mg total) per tube every 8 (eight) hours as needed. polyethylene glycol (GLYCOLAX) 17 gram packet Administer 17 g per tube in the morning. potassium chloride (KAYCIEL) 20 mEq/15 mL solution Administer 30 mL (40 mEq total) per tube in the morning. scopolamine (TRANSDERM-SCOP) 1 mg/[address] 1 patch on the skin every third day. sennosides-docusate sodium (SENOKOT-S) 8.6-50 mg Administer 2 tablets per tube in the morning and 2 tablets before bedtime. sodium chloride (OCEAN) 0.65 % nasal spray Administer 1 spray into each nostril in the morning and 1 spray at noon and 1 spray before bedtime. sucralfate (CARAFATE) 1 gram tablet Administer 1 tablet (1 g total) per tube 3 (three) times a day. No current facility-administered medications for this visit. Chief Complaint Patient presents with 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 RAJEEV SALAMANCA CARDIOMEGALY,UNSURE OF ANY RECENT TESTING DONE, NO DEVICES, SCHED W/BENJAMÍN, PT ON A STRETCHER, A TRACH/VENT PT, ON OXYGEN, REAL ESTATE RECRUITER WILL BE W/PT History of Present Illness I had the opportunity to meet this 40-year-old today. 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 He is also accompanied by a respiratory therapist to manage his vent in transit There have been no concerns of chest pain. . He has been brought for evaluation as his mother is very concerned regarding cardiomegaly seen on chest x-ray and patient is edema He is occasionally tachycardic per his mother's report CV TESTING HISTORY: ECHO: Echo complete W/O contrast Result Date: 06/26/2023 Left Ventricle: Systolic function is hyperdynamic with an ejection fraction over 70%. Left Atrium: The interatrial septum is intact. Agitated saline bubble study revealed no evidence of right to left interatrial shunting . Aorta: The aortic root is dilated. No significant valve disease noted. STRESS: No results found. HOLTER: No results found. CARDIAC CATH: No results found. CAROTID: No results found. CXR: No results found. 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 Convulsions (CMS-HCC) Dependence on respirator (CMS-HCC) Depression Dislocation of multiple joints, recurrent bilateral elbows, several times Dysphagia Fusion of spine of cervical region GERD (gastroesophageal reflux disease) Head injury 2015 no LOC Headache, migraine random, only a few a year, with vision disturbances Hereditary and idiopathic neuropathy Hernia, umbilical Herniation of intervertebral disc with radiculopathy cervical and lumbar herniated discs Hypertension Limited joint range of motion (ROM) neck and arms 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 (CMS-HCC) Muscle spasm Neuromuscular dysfunction of bladder Neuropathy hands, legs Pathological dislocation of unspecified elbow, not elsewhere classified Pneumonia YEARS AGO PONV (postoperative nausea and vomiting) Pure hyperglyceridemia Radiculopathy of cervical region Radiculopathy of lumbar region Right bundle branch block Scoliosis Stroke ([facility]) Tracheostomy status ([facility]) Umbilical hernia without obstruction or gangrene Unspecified right bundle-branch block Visual impairment glasses Past Surgical History: Procedure Laterality Date ADENOIDECTOMY age 6 BRONCHOSCOPY N/A 03/15/2025 Performed by Erlinda Tejada MD at [facility] BRONCHOSCOPY N/A 01/26/2025 Performed by Erlinda Tejada MD at [facility] BRONCHOSCOPY N/A 11/18/2024 Performed by Erlinda Tejada MD at [facility] BRONCHOSCOPY ALVEOLAR LAVAGE N/A 11/18/2024 Performed by Erlinda Tejada MD at [facility] BRONCHOSCOPY ALVEOLAR LAVAGE LEFT LUNG Left 03/15/2025 Performed by Erlinda Tejada MD at [facility] Diagnostic cerebral angiogram N/A 06/10/2023 Performed by Patricio Marie MD at [facility] CARDIAC CATH LABS ESOPHAGOGASTRODUODENOSCOPY INSERTION PEG TUBE N/A 06/20/2023 Performed by Neil Marroquin MD at [facility] EXCHANGE TUBE TRACHEOSTOMY N/A 11/18/2024 Performed by Erlinda Tejada MD at [facility] EXCHANGE TUBE TRACHEOSTOMY, pt brought trach with them N/A 01/26/2025 Performed by Erlinda Tejada MD at [facility] FOOT ARTHRODESIS, TRIPLE Bilateral 2003 left, 2004 right with achilles extension FUSION CERVICAL ANTERIOR MULTI LEVEL C5-6, C6-7 PARTIAL VERTEBRAL BODY RESECTION N/A 08/27/2017 Performed by Nghia Marcano MD at [facility] HERNIA REPAIR 2011 umbilical TONSILLECTOMY age 6 TRACHEOSTOMY N/A 06/20/2023 Performed by Neil Marroquin MD at [facility] UNDESCENDED TESTICLE EXPLORATION age 2 Family History Problem Relation Age of Onset Aneurysm Maternal Grandfather Heart attack Paternal Grandfather Back Problems Mother Back Problems Father Skin cancer Father Aneurysm Maternal Grandmother Heart disease Maternal Grandmother Back Problems Paternal Grandmother Anesthesia problems Neg Hx Social History Socioeconomic History Marital status: Single Spouse name: Not on file Number of children: Not on file Years of education: Not on file Highest education level: Not on file Occupational History Not on file Tobacco Use Smoking status: Never Smokeless tobacco: Never Substance and Sexual Activity Alcohol use: Not Currently Comment: Rarely Drug use: No Sexual activity: Defer Other Topics Concern Caffeine Use No Social History Narrative Not on file Social Drivers of Health Financial Resource Strain: Not on file Food Insecurity: No Food Insecurity (05/07/2025) Hunger Screening Food Insecurity - Worry: Never True Food Insecurity - Inability: Never True Transportation Needs: No Transportation Needs (11/22/2023) Received from [facility] - Transportation Lack of Transportation (Medical): No Lack of Transportation (Non-Medical): No Physical Activity: Not on file Stress: Not on file Social Connections: Not on file Interpersonal Safety: Unknown (10/31/2023) Received from [facility] Safety & Environment Fear of Current or Ex-Partner: Not on file Emotionally Abused: Not on file Physically Abused: Not on file Sexually Abused: Not on file Physically or Sexually Abused: Not on file Housing Instability: Unknown (11/22/2023) Received from [facility] Housing Stability Vital Sign Unable to Pay for Housing in the Last Year: No Number of Places Lived in the Last Year: Not on file Unstable Housing in the Last Year: No Review of Systems Review of Systems Constitutional: Negative. HENT: Negative. Eyes: Negative. Cardiovascular: Negative. Vascular: Negative. Respiratory: Negative. Endocrine: Negative. Hematologic/Lymphatic: Negative. Skin: Negative. Musculoskeletal: Positive for back pain, joint swelling and muscle weakness. Gastrointestinal: Positive for constipation. Genitourinary: Negative. Neurological: Positive for headaches and light-headedness. Psychiatric/Behavioral: Positive for depression. The patient is nervous/anxious. Allergic/Immunologic: Positive for environmental allergies. CARDIOVASCULAR: Please review HPI. Physical Examination General appearance: Examined on stretcher Neck: Trach with ventilator Respiratory: Bilateral rhonchi Cardiovascular: RRR Musculoskeletal: Mild edema x4 VITAL SIGNS: BP 104/62 Pulse 73 Ht 157.5 cm (5' 2 ) Wt 93 kg (205 lb) SpO2 90% BMI 37.49 kg/m Orders Placed or Reconciled This Encounter Medications albuterol (PROVENTIL,VENTOLIN) 2.5 mg /3 mL (0.083 %) nebulizer solution Sig: Inhale 3 mL (2.5 mg total) by nebulization every 6 (six) hours as needed for wheezing. fexofenadine (MAKSIM) 180 mg tablet Sig: Take 1 tablet (180 mg total) by mouth in the morning. gabapentin (NEURONTIN) 400 mg capsule Sig: Administer 1 capsule (400 mg total) per tube 3 (three) times a day. gabapentin (NEURONTIN) 100 mg capsule Sig: Administer 1 capsule (100 mg total) per tube 3 (three) times a day. guaiFENesin (ROBITUSSIN) 100 mg/5 mL syrup Sig: Take 10 mL (200 mg total) by mouth in the morning. methenamine (HIPREX) 1 gram tablet Sig: Administer 1 tablet (1 g total) per tube in the morning and 1 tablet (1 g total) before bedtime. DISCONTD: furosemide (LASIX) 40 mg tablet Sig: Administer 1 tablet (40 mg total) per tube daily. escitalopram (LEXAPRO) 10 mg tablet Sig: Administer 1 tablet (10 mg total) per tube in the morning. oxyCODONE (ROXICODONE) 5 mg immediate release tablet Sig: Administer 1 tablet (5 mg total) per tube every 8 (eight) hours as needed. oxyCODONE (ROXICODONE) 10 MG tablet immediate release tablet Si tablet (10 mg total) by feeding tube route in the morning and 1 tablet (10 mg total) at noon and 1 tablet (10 mg total) in the evening and 1 tablet (10 mg total) before bedtime. sucralfate (CARAFATE) 1 gram tablet Sig: Administer 1 tablet (1 g total) per tube 3 (three) times a day. ondansetron (ZOFRAN) 4 mg tablet Sig: Take 1 tablet (4 mg total) by mouth every 6 (six) hours as needed for nausea or vomiting. Medications Discontinued During This Encounter Medication Reason artificial tears,hypromellose, (ISOPTO TEARS) 0.5 % ophthalmic solution cetirizine (ZyrTEC) 10 MG chewable tablet dextromethorphan-guaiFENesin (ROBITUSSIN-DM) 10-100 mg/5 mL liquid escitalopram (LEXAPRO) 10 mg tablet fluticasone propionate (FLONASE) 50 mcg/actuation nasal spray furosemide (LASIX) 40 mg tablet gabapentin (NEURONTIN) 50 mg/ mL solution methenamine (HIPREX) 1 gram tablet hakydahu-kputowyma-ymeSIKEUnekya (MAXITROL) 3.5mg/mL-10,000 unit/mL-0.1 % ophthalmic suspension oxyCODONE (ROXICODONE) 5 mg/5 mL solution sucralfate (CARAFATE) 100 mg/mL suspension IMPRESSIONS/PLAN 1. Cardiomegaly - Ambulatory referral to Cardiology ([facility]) - Echo complete W/O contrast; Future 2. Chronic heart failure with preserved ejection fraction ([facility]) 1. Cardiomegaly reported on chest x-ray with normal left ventricular size and systolic function on 06/2023 echocardiogram 2. Chronic heart failure with preserved ejection fraction with dependent edema associated with quadriplegic state 3. Autonomic dysfunction with expected tachycardia and variable blood pressures Echocardiogram to be obtained TODAYS ORDERS Orders Placed This Encounter Procedures Echo complete W/O contrast FOLLOW UP Return for 6-12 weeks. PCP: SERGEI ROOT MD Referring Physician: Rajeev Salamanca APRN-GRID MOLDER [address] [place] [address] Family member given central scheduling's phone number, ECF prefers to schedule testing for transportation. documented in this encounter [facility] 05-06-2025 Miscellaneous Notes Left message for patient to remind them to bring their most current medication list with them to their appointment. documented in this encounter [facility] 05-06-2025 Telephone encounter Note Left message for patient to remind them to bring their most current medication list with them to their appointment. [facility] 05-03-2025 Telephone encounter Note Requested Prescriptions Signed Prescriptions Disp Refills LORazepam (Ativan) 1 MG tablet 90 tablet 3 Sig: Take 1 tablet (1 mg) by mouth in the morning and 1 tablet (1 mg) in the evening and 1 tablet (1 mg) before bedtime. Authorizing Provider: RAJEEV SALAMANCA LORazepam (Ativan) 0.5 MG tablet 42 tablet 0 Sig: Take 1 tablet (0.5 mg) by mouth 3 (three) times a day as needed for anxiety for up to 14 days Authorizing Provider: RAJEEV SALAMANCA [facility] 05-03-2025 Miscellaneous Notes Requested Prescriptions Signed Prescriptions Disp Refills LORazepam (Ativan) 1 MG tablet 90 tablet 3 Sig: Take 1 tablet (1 mg) by mouth in the morning and 1 tablet (1 mg) in the evening and 1 tablet (1 mg) before bedtime. 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 He has been having increased pain and discomfort in his back. He is able to communicate with a computerized board. His dad has had a lot of health concerns. He has had increased anxiety related to his fathers illness. We will add a prn dose of oxycodone and ativan. 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 He has been having increased pain and discomfort in his back. He is able to communicate with a computerized board. His dad has had a lot of health concerns. He has had increased anxiety related to his fathers illness. We will add a prn dose of oxycodone and ativan. Requested Prescriptions Signed Prescriptions Disp Refills LORazepam (Ativan) 0.5 MG tablet 42 tablet 0 Sig: Take 1 tablet (0.5 mg) by mouth 3 (three) times a day as needed for anxiety for up to 14 days Authorizing Provider: RAJEEV SALAMANCA oxyCODONE (Roxicodone) 5 MG immediate release tablet 90 tablet 0 Sig: Take 1 tablet (5 mg) by mouth every 8 (eight) hours if needed for severe pain Authorizing Provider: RAJEEV SALAMANCA documented in this encounter [facility] 03-18-2025 Telephone encounter Note Requested Prescriptions Signed Prescriptions Disp Refills oxyCODONE (Roxicodone) 10 MG immediate release tablet 90 tablet 0 Sig: Take 1 tablet (10 mg) by mouth in the morning and 1 tablet (10 mg) in the evening and 1 tablet (10 mg) before bedtime. Authorizing Provider: RAJEEV SALAMANCA [facility] 03-18-2025 Miscellaneous Notes Requested Prescriptions Signed Prescriptions Disp Refills oxyCODONE (Roxicodone) 10 MG immediate release tablet 90 tablet 0 Sig: Take 1 tablet (10 mg) by mouth in the morning and 1 tablet (10 mg) in the evening and 1 tablet (10 mg) before bedtime. Authorizing Provider: RAJEEV SALAMANCA documented in this encounter [facility] 03-11-2025 Miscellaneous Notes Opened in error. Karina Ball RN This encounter was opened in error. documented in this encounter [facility] 03-11-2025 Telephone encounter Note Opened in error. Karina Ball RN This encounter was opened in error. [facility] 02-23-2025 Telephone encounter Note Requested Prescriptions Signed Prescriptions Disp Refills LORazepam (Ativan) 1 MG tablet 90 tablet 3 Sig: Take 1 tablet (1 mg) by mouth in the morning and 1 tablet (1 mg) in the evening and 1 tablet (1 mg) before bedtime. Authorizing Provider: RAJEEV SALAMANCA oxyCODONE (Roxicodone) 10 MG immediate release tablet 90 tablet 0 Sig: Take 1 tablet (10 mg) by mouth in the morning and 1 tablet (10 mg) in the evening and 1 tablet (10 mg) before bedtime. Authorizing Provider: RAJEEV SALAMANCA [facility] 02-23-2025 Miscellaneous Notes Requested Prescriptions Signed Prescriptions Disp Refills LORazepam (Ativan) 1 MG tablet 90 tablet 3 Sig: Take 1 tablet (1 mg) by mouth in the morning and 1 tablet (1 mg) in the evening and 1 tablet (1 mg) before bedtime. Authorizing Provider: RAJEEV SALAMANCA oxyCODONE (Roxicodone) 10 MG immediate release tablet 90 tablet 0 Sig: Take 1 tablet (10 mg) by mouth in the morning and 1 tablet (10 mg) in the evening and 1 tablet (10 mg) before bedtime. Authorizing Provider: RAJEEV SALAMANCA documented in this encounter [facility] 01-21-2025 Telephone encounter Note Requested Prescriptions Signed Prescriptions Disp Refills oxyCODONE (Roxicodone) 10 MG immediate release tablet 90 tablet 0 Sig: Take 1 tablet (10 mg) by mouth in the morning and 1 tablet (10 mg) in the evening and 1 tablet (10 mg) before bedtime. Authorizing Provider: RAJEEV SALAMANCA [facility] 01-21-2025 Miscellaneous Notes Requested Prescriptions Signed Prescriptions Disp Refills oxyCODONE (Roxicodone) 10 MG immediate release tablet 90 tablet 0 Sig: Take 1 tablet (10 mg) by mouth in the morning and 1 tablet (10 mg) in the evening and 1 tablet (10 mg) before bedtime. Authorizing Provider: RAJEEV SALAMANCA documented in this encounter [facility] 01-13-2025 History of Present illness Narrative Images from the original note were not included. No chief complaint on file. Jacklyn Quinones is a 39 y.o. male. History of Present Illness HPI information was obtained primarily from the patient's parents today, as the patient is nonverbal. STROKE -The patient presents via a stretcher and is nonambulatory -He has been unable to move his upper or lower extremities since his stroke in 2022 but retains consciousness -He can blink on command and can protrude/retract his tongue -He can respond to questions with eye movements (looking up = no, blinking = yes) -He has spasticity of the extremities and takes baclofen TID -He is not currently in physical therapy, occupational therapy, or speech therapy -He receives chest percussion therapy and has a G tube for enteral feeds/medication administration -patient is on gabapentin for his nystagmus -increased at last visit -seen an improvement -parents are requesting another increase -recently seen ophthalmology -mom states this was due to his left eye shutting more -ophthalmology said this was from trying to compensate for the right eye -will be getting a new communication device for his eyes Per documentation from [facility], the patient's code status is full code. His diet is NPO with enteral feeds. He has a iverson catheter. Review of Systems Constitutional: Positive for unexpected weight change (following with primary care provider). Negative for fever. HENT: Positive for trouble swallowing. Eyes: Negative for visual disturbance. Negative for visual change, double vision or loss of vision Respiratory: Negative for shortness of breath and wheezing. Cardiovascular: Positive for leg swelling. Negative for chest pain. Gastrointestinal: Negative for blood in stool. Musculoskeletal: Positive for gait problem (nonambulatory). Skin: Positive for wound. Neurological: Positive for speech difficulty and weakness (extremities). Negative for dizziness, tremors, seizures, syncope, facial asymmetry, light-headedness, numbness and headaches. Psychiatric/Behavioral: Negative for confusion, hallucinations, self-injury and suicidal ideas. Medication List acetaminophen 325 MG tablet; Commonly known as: Tylenol baclofen 10 MG tablet; Commonly known as: Lioresal busPIRone 10 MG tablet; Commonly known as: Buspar carboxymethylcellulose 1 % ophthalmic solution cetirizine 10 MG chewable tablet; Commonly known as: ZyrTEC chlorhexidine 0.12 % solution; Commonly known as: Peridex Cholecalciferol 25 MCG (1000 UT) chewable tablet ciprofloxacin 250 MG tablet; Commonly known as: Cipro Eliquis 5 MG tablet; Generic drug: apixaban escitalopram 10 MG tablet; Commonly known as: Lexapro esomeprazole 40 MG packet; Commonly known as: NexIUM ferrous sulfate 325 (65 Fe) MG tablet folic acid 1 MG tablet; Commonly known as: Folvite furosemide 40 MG tablet; Commonly known as: Lasix gabapentin 300 MG capsule; Commonly known as: Neurontin hydrOXYzine pamoate 50 MG capsule; Commonly known as: Vistaril ipratropium-albuterol 0.5-2.5 mg/3 mL nebulizer solution; Commonly known as: Duo-Neb lamoTRIgine 25 MG tablet; Commonly known as: LaMICtal LORazepam 1 MG tablet; Commonly known as: Ativan; Take 1 tablet (1 mg) via G tube every 8 (eight) hours if needed for anxiety melatonin 5 MG tablet methenamine hippurate 1 g tablet; Commonly known as: Hiprex metoclopramide 5 MG tablet; Commonly known as: Reglan metoprolol tartrate 25 MG tablet; Commonly known as: Lopressor oxyCODONE 10 MG immediate release tablet; Commonly known as: Roxicodone; Take 1 tablet (10 mg) via G tube three times a day for chronic pain polyethylene glycol (PEG) 3350 17 g packet; Commonly known as: Miralax Potassium Chloride 20 MEQ/15ML (10%) solution scopolamine 1 mg/72 hr patch 72 hour patch; Commonly known as: Transderm-Scop sennosides 8.6 MG tablet; Commonly known as: Senokot sodium chloride 3 % nebulizer solution sucralfate 1 g tablet; Commonly known as: Carafate Past Medical History: Diagnosis Date Anemia Anxiety Cerebral infarction due to unspecified occlusion or stenosis of unspecified posterior cerebral artery (CMS/HCC) Cervical radiculopathy Chronic pain syndrome Dependence on respirator (ventilator) status ([facility]/HCC) Depression ([facility]/HCC) DVT (deep venous thrombosis) ([facility]/HCC) right upper extremity axillary Dysphagia Essential hypertension ([facility]/HCC) GERD without esophagitis History of traumatic brain injury 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) Lumbar radiculopathy Neuromuscular dysfunction of bladder Neuropathy Right bundle branch block Umbilical hernia Past Surgical History: Procedure Laterality Date CERVICAL FUSION CT ANGIOGRAM HEART CORONARY 08/13/2023 CT ANGIOGRAM TAVR 08/13/2023 CT ANGIOGRAM HEART CORONARY 06/25/2023 CT ANGIOGRAM TAVR 06/25/2023 CT ANGIOGRAM UPPER EXTREMITY RIGHT Right 06/25/2023 CT ANGIOGRAM UPPER EXTREMITY RIGHT 06/25/2023 CT GUIDED TRANSVAGINAL TRANSRECTAL FLUID DRAIN 08/21/2023 CT GUIDED TRANSVAGINAL TRANSRECTAL FLUID DRAIN 08/21/2023 IR BILIARY CHOLECYSTOSTOMY 08/15/2023 IR BILIARY CHOLECYSTOSTOMY 08/15/2023 IR CVC PICC 11/24/2023 IR CVC PICC TRACHEOSTOMY TUBE PLACEMENT No family history on file. Social History Tobacco Use Smoking status: Not on file Smokeless tobacco: Not on file Substance Use Topics Alcohol use: Not Currently Allergies: Fentanyl, Ciprofloxacin, Diltiazem, Fluoxetine, Other, and Clindamycin There were no vitals filed for this visit. There is no height or weight on file to calculate BMI. Neurologic exam: Mental status and general appearance: Awake and alert with unlabored respirations. Nonverbal. Receptive language appears intact. Able to blink on command. Extremity edema. Cranial nerves: CN II: Unable to reliably assess. CN III, IV, : Pupils are round and reactive to light. Horizontal extraocular movements are limited. Vertical extraocular eye movements are intact. No ptosis present. Torsional nystagmus. CN V: Facial sensation is normal. CN VII: Facial features are symmetric at rest. Limited facial expressions. CN VIII: Unable to reliably assess. CN IX and X: Unable to reliably assess. CN XI: Unable to reliably assess. CN XII: Tongue is midline without atrophy or fasciculation. Motor: RUE strength deltoid , biceps , triceps , wrist extensors , wrist flexor , and benchroom shop optician strength 0/5. LUE strength deltoid , biceps , triceps , wrist extensors , wrist flexor , and benchroom shop optician strength 0/5. RLE strength iliopsoas, quadriceps, tibialis anterior, and plantar flexion strength 0/5. LLE strength iliopsoas, quadriceps, tibialis anterior, and plantar flexion strength 0/5. Tone is mildly increased in all 4 extremities. Sensory: Sensation is seemingly intact to light touch throughout all four extremities. Reflexes: RUE biceps reflex 4+ , brachioradialis reflex 4+. LUE biceps reflex 4+ , brachioradialis reflex 4+. RLE knee reflex 4+. LLE knee reflex 4+. Coordination: Bjlgxo-yd-lzvo testing unable to assess. Rapid alternating movements unable to assess. Gait: Not assessed. The patient presents on a stretcher. Review and summary of old records: A summary of the patient's hospital admission at the time of acute stroke in March and April of 2023 is as follows (reviewed by Dr. Aviles): The patient initially presented to [facility] due to left-sided weakness, slurred speech, diplopia. While there, he was noted to have tonic posturing of his extremities and was given a total of 6 mg of Ativan after suspecting seizures. Due to his ongoing posturing he was loaded with levetiracetam, intubated and sedated, and transferred to [facility] for further evaluation management. His initial CT head without contrast was negative. 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 After his 10 day of admission with the patient started showing fluctuating fevers and sinus tachycardia that progressed to persistent high-grade fevers. An extensive infectious workup including blood cultures, urine analysis, urine culture, chest x-ray, CT abdomen and pelvis, bilateral venous duplex all came back negative. A CT angiogram of the chest ruled out pulmonary embolism. The patient was treated with an extended course of antibiotics without any effect on his persistent high-grade fevers and tachycardia. After the extensive negative workup, these fevers were thought to be neurogenic related to autonomic dysfunction, the patient was started on gabapentin and his metoprolol dose was increased which resulted in significant improvement of his temperature and heart rate. The patient was started on escitalopram 10 mg once daily due to depression. The patient was eventually discharged to a long-term care facility on 07/03/2023 with a stable exam, he was conscious, alert, able to answer questions with his eyes, able to follow commands with his eyes, had no spontaneous/purposeful movement over his 4 extremities. LDL: 59. HBA1C: 5.4%. ECHO: hyperdynamic EF >70%. 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 Quinones is a 39-year-old male with a history of pontomedullary acute ischemic infarction in 2022. 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 He is able to blink and has some voluntary eye movements (vertical only) but is nonverbal, unable to swallow, and unable to spontaneously move his extremities. He remains conscious and communicates via blinking and certain eye movements. At the time of his stroke, the patient was initially seen at [facility] for care. [facility] 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 He has since been maintained on Eliquis. PLAN: - Continue aspirin 81 mg via G tube once a day for secondary stroke prevention - Continue Eliquis 5 mg via G tube twice a day - Follow up closely with primary care provider for management of blood pressure, cholesterol levels, and blood glucose - Management of tracheostomy, mechanical ventilation, enteral feedings, and urinary catheter per facility/outside specialties - Continue follow up with [facility] stroke neurology - Continue with occupational therapy/speech therapy to continue to explore communication devices Nystagmus The patient has torsional nystagmus on clinical exam today, like secondary to his pontomedullary stroke. He indicates this is bothersome to him when asked. He is currently taking gabapentin 400 mg PO TID. This was increased at last visit and he feels that it has been beneficial when asked. PLAN: - I will reach out to the facility to request recent blood work for kidney function. Will consider increase in gabapentin to 500 mg via G tube three times a day pending review of labs. I did discuss with the patient and his parents that use of this medication to help improve nystagmus would be off-label. I also educated them on possible adverse effects of gabapentin including but not limited to QUALITY TECHNICIAN FIBERGLASS effects, somnolence, and lower extremity edema. They verbalized understanding of the possible risks and wished to proceed with the dose increase in attempt to help reduce/improve his nystagmus. [facility] is followed. Spasticity The patient does have some mild spasticity in the bilateral upper and lower extremities secondary to his history of stroke. His mother does perform passive range of motion exercises with him regularly which is likely helpful for the spasticity. He is also taking baclofen. PLAN: - Continue passive range of motion exercises - He is taking baclofen 10 mg via G tube three times a day Osteomyelitis The patient has osteomyelitis due to a sacral wound, treated with ciprofloxacin. PLAN: - Follow up closely with outside providers and wound care for management Diagnosis and treatment options discussed in detail. All questions answered. The patient's parents verbalize understanding and are agreeable to the plan. Discussion in layman's terms. Follow up in the office within 2 months; sooner if needed for new or worsening symptoms. Christina Evans PA-C documented in this encounter [facility] 01-12-2025 Instructions Formatting of th is note might be different from the original. Your surgery/procedure is scheduled at [facility] on 01/26/25 at 1000 Arrival Time 0800 [facility] Address: [address] [place] [address], [address] [address] in the Emergency Center Parking lot. Report to the front maker lockstitch in the Emergency/Surgery Registration lobby of the hospital. Notify your SURGEON if you develop any illness such as a cold, cough, fever, sore throat, vomiting or are hospitalized between now and your surgery. Please call Pre-Admission Clinic at [phone] if you have any questions prior to surgery. For questions the morning of surgery, call the Pre-op Department at [phone]. Medication Instructions (Do not stop your medications without consulting the prescribing physician). Take the following medications the morning of surgery with a sip of water: CIPRO, GABAPENTIN, ESCITLOPRAM, METOPROLOL, OXYBUTYNIN, OXYCODONE NEEDED Diabetic or Weight loss medications: HOLD NA LAST DOSE NA Take inhalers as prescribed the morning of surgery. Due to the risk associated with these medications. If these medications are not held per instruction below, your surgery is at an increased risk for cancellation SGLT2 Medications- Hold 3 days prior to surgery: Jardiance, Empagliflozin, Farxiga, Dapagliflozin, Invokana, Canagliflozin, Trijardy, Synjardy GLP-1 Medications (Injection or Pill)- If taken daily hold day of surgery. If taken weekly, hold 1 week prior to surgery: Adlyxin, Byetta, Bydureon, Ozempic, Rybelsus,Trulicity, Victoza, Wegovy, Lixisenatide, Exenatide, Semaglutide, Dulaglutide, Liraglutide GIP/GLP-1(Injection or Pill)- If taken daily hold day of surgery. If taken weekly, hold 1 week prior to surgery: Mounjaro . Blood thinners: Please contact your prescribing physician regarding a stop/hold date for these medications. Medications such as Coumadin, Heparin, Aspirin, Plavix, Eliquis, Pradaxa Diabetics: If you take insulin, contact your prescribing doctor for instructions on how to manage this the night before and the morning of surgery. Non-steriodal Anti-Inflammatory Drugs (NSAIDS)- Hold 3 days prior to surgery unless otherwise directed by your surgeon. Vitamins/Herbal Products: You may continue to take your prescribed vitamins such as potassium, iron, vitamin B, vitamin C, or multivitamin unless specifically instructed by your surgeon to hold. STOP taking all herbal products/teas one week prior to your surgery. Marijuana: Stop marijuana 72 hours prior to surgery, stop CBD oil 48 hours prior to surgery. If you have been given bowel prep instructions by your surgeon, please call the surgeon's office with any questions about these instructions. What do I do the day of Surgery? Age 2 through adult - Stop all solids by midnight, You may have clear liquids up to 2 hours before surgery, unless otherwise instructed by your surgeon Clear liquids are: water, sports drinks such as Gatorade or G2, or apple juice. You may NOT have: tube feedings, dairy products, alcoholic beverages, orange juice, or any liquids with solids or pulp in it If applicable, shower again with CHG soap the morning of your surgery. What do I need to do to prepare for surgery? If you will be going home the same day as your surgery, arrange for an adult over [address] Riding in a bus or taxi by yourself is not permitted. You should not smoke or drink alcohol 24 hours before your surgery. Smoking increases the risk of breathing problems after surgery. Alcohol thins the blood and may cause bleeding problems during surgery If you have been assigned ALBERTO Education by your surgeon's office, please complete this education prior to your surgery. For questions regarding ALBERTO education, reach out to your surgeons office. If you have been given a prescription for occupational, physical or speech therapy, please set up these appointments before your procedure. If you would like to schedule therapy at a [facility] facility, please call [phone] ([phone]). Do not use lotions, creams, powders, perfume, make up, cologne or after-shaves day of surgery. Remove ALL jewelry including wedding rings, body piercings, hair extensions that contain metal, nail belizean, make-up, and contact lens. You may brush your teeth the morning of surgery, but do not swallow the water. Wear your dentures and partial plates to the hospital (no adhesive). Shower the night the before. If applicable, use the CHG (chlorhexidine gluconate) soap or wipes. Please place clean linens on your bed after showering. Do not allow your pets in your bed. Please be advised, [facility] has transitioned to a cashless payment system. What should I bring to the hospital? Eyeglass or contact lens case If you will be spending the night, please bring personal care items and leave them in the car until you are taken to your room after surgery. Leave ALL valuables at home. If any of these instructions conflict with those you recieved from the surgeon, please seek clarification from your surgeon's office. DEEP BREATHING EXERCISES This exercise helps promote good air exchange and helps to prevent pneumonia after surgery. Breathe in slowly and deeply through the nose. Hold your breath for a few seconds and then exhale slowly through the mouth. Repeat this three times and then cough. Coughing helps to clear your lungs. If you have had a surgery with an incision into your abdomen or chest, press gently against your incision with a pillow or a folded blanket when you cough. Please be aware - it may not be howard to cough following some types of surgeries involving the eyes, ears, sinuses and throat. Always follow your doctor's instructions. LEG EXERCISES These exercises help promote good circulation and help to prevent blood clots after surgery. Point your toes to the ceiling and then point them to the wall. Do this slowly about 15-20 times. You may also move your feet in circles. Do the exercise that is most comfortable for you. If you have had surgery involving your shoulder or arm, we recommend you move your fingers. PRACTICING We ask that you begin practicing these exercises before your surgery. After surgery try to do both exercises at least every 2 hours during the day and early evening. Surgical Site Infection Prevention What is a Surgical Site Infection (SSI)? Infection can happen to the area of the body where surgery is done. This is called a surgical site infection (SSI). A SSI does not happen very often. What are some of the things that hospitals are doing to prevent SSIs? Soap and water or alcohol hand rub are used before and after caring for each patient. Special soap is used to clean surgery workers hands and arms just before the surgery. Masks, gowns, gloves and hair covers are worn during the surgery to keep the area clean. Hair in the surgery area may be removed with clippers (not razors). A special soap that kills germs is used to clean the skin at the surgery site. Antibiotics may be given before the surgery starts. What can you do to prevent SSIs? Before surgery: You may be asked to shower or bathe with a special soap that kills germs the night before and the day of surgery. Use the soap as you were told. Place clean sheets on your bed the night before surgery and do not allow your pets in your bed. If you smoke or vape, stop or cut down. This creates a stress response in your body that increases inflammation, constricts blood vessels and deprives your tissues of oxygen. After surgery, this stress response disrupts the travel of oxygen, nutrients, and blood to your surgical site, interfering with the wound healing process. It also decreases the ability of your cells to fight infection. Ask your doctor about ways to quit. If you have high blood sugars or diabetes please talk with your doctor about having healthy blood sugar levels to promote healing. Do not shave near where you will have surgery. Shaving can irritate the skin and make it easier to get and infection. After surgery: Be sure that the doctors and nurses clean their hands before and after touching you. Be sure your family and friends clean their hands before and after visiting you. Do not be afraid to remind them. Always wash your hands before touching your incisional area. * Care for your wound at home as told by your doctor or nurse * Call your doctor right away if you have fever, redness, increased pain, or drainage at the surgery site. Can SSIs be treated? Antibiotics are used to treat SSI. Some patients may need another surgery to treat the infection. The doctor will discuss treatment options with you. Further questions? Contact the doctor, nurse or the Infection Prevention and Control department if you have any questions. PATIENT RIGHTS AND RESPONSIBILITIES As a patient at [facility], you have the right to: Receive medical care and be informed of who is taking care of you Be treated with dignity and respect Have a family member/sales and marketing representative of choice and your physician notified of your admission Receive information and actively participate in decisions about your care and treatment Refuse care, treatment and services Decide who may provide your support and speak for you Access yazidi and spiritual services Participate in ethical issues and questions about your care Receive private and confidential care Have appropriate assessment and management of your pain Know guest visitation restrictions or limitations Have an advance directive Access protective services Consent or refuse to participate in research studies or production or recordings, films or other images Have resolution of your complaints Receive information of hospital charges and payment methods Patient/patient sales and marketing representative responsibilities are to: Provide information about health status to facilitate care, treatment and services Follow the treatment, plan, keep appointments and speak up when you do not understand the plan Respect the rights of other patients and healthcare personnel Follow organizational rules and regulations that support quality care and a safe environment Fulfill financial obligations as promptly as possible [facility] 01-12-2025 Miscellaneous Notes PATIENT AT [facility] CALLED AND REQUESTED MEDICAL INFO AND MED LIST TO BE FAXED UPDATED CHART WITH FAXED MEDICAL HISTORY PROVIDED FROM [facility], FAXED PRE-PROCEDURE INSTRUCTIONS TO [facility]. Your surgery/procedure is scheduled at [facility] on 01/26/25 at 1000 Arrival Time 0800 [facility] Address: [address] [place] [address], [address] [place] [address] in the Emergency Center Parking lot. Report to the front maker lockstitch in the Emergency/Surgery Registration lobby of the hospital. Notify your SURGEON if you develop any illness such as a cold, cough, fever, sore throat, vomiting or are hospitalized between now and your surgery. Please call Pre-Admission Clinic at [phone] if you have any questions prior to surgery. For questions the morning of surgery, call the Pre-op Department at [phone]. Medication Instructions (Do not stop your medications without consulting the prescribing physician). Take the following medications the morning of surgery with a sip of water: CIPRO, GABAPENTIN, ESCITLOPRAM, METOPROLOL, OXYBUTYNIN, OXYCODONE NEEDED Diabetic or Weight loss medications: HOLD NA LAST DOSE NA Take inhalers as prescribed the morning of surgery. Due to the risk associated with these medications. If these medications are not held per instruction below, your surgery is at an increased risk for cancellation SGLT2 Medications- Hold 3 days prior to surgery: Jardiance, Empagliflozin, Farxiga, Dapagliflozin, Invokana, Canagliflozin, Trijardy, Synjardy GLP-1 Medications (Injection or Pill)- If taken daily hold day of surgery. If taken weekly, hold 1 week prior to surgery: Adlyxin, Byetta, Bydureon, Ozempic, Rybelsus,Trulicity, Victoza, Wegovy, Lixisenatide, Exenatide, Semaglutide, Dulaglutide, Liraglutide GIP/GLP-1(Injection or Pill)- If taken daily hold day of surgery. If taken weekly, hold 1 week prior to surgery: Mounjaro . Blood thinners: Please contact your prescribing physician regarding a stop/hold date for these medications. Medications such as Coumadin, Heparin, Aspirin, Plavix, Eliquis, Pradaxa Diabetics: If you take insulin, contact your prescribing doctor for instructions on how to manage this the night before and the morning of surgery. Non-steriodal Anti-Inflammatory Drugs (NSAIDS)- Hold 3 days prior to surgery unless otherwise directed by your surgeon. Vitamins/Herbal Products: You may continue to take your prescribed vitamins such as potassium, iron, vitamin B, vitamin C, or multivitamin unless specifically instructed by your surgeon to hold. STOP taking all herbal products/teas one week prior to your surgery. Marijuana: Stop marijuana 72 hours prior to surgery, stop CBD oil 48 hours prior to surgery. If you have been given bowel prep instructions by your surgeon, please call the surgeon's office with any questions about these instructions. What do I do the day of Surgery? Age 2 through adult - Stop all solids by midnight, You may have clear liquids up to 2 hours before surgery, unless otherwise instructed by your surgeon Clear liquids are: water, sports drinks such as Gatorade or G2, or apple juice. You may NOT have: tube feedings, dairy products, alcoholic beverages, orange juice, or any liquids with solids or pulp in it If applicable, shower again with CHG soap the morning of your surgery. What do I need to do to prepare for surgery? If you will be going home the same day as your surgery, arrange for an adult over [address] Riding in a bus or taxi by yourself is not permitted. You should not smoke or drink alcohol 24 hours before your surgery. Smoking increases the risk of breathing problems after surgery. Alcohol thins the blood and may cause bleeding problems during surgery If you have been assigned ALBERTO Education by your surgeon's office, please complete this education prior to your surgery. For questions regarding ALBERTO education, reach out to your surgeons office. If you have been given a prescription for occupational, physical or speech therapy, please set up these appointments before your procedure. If you would like to schedule therapy at a [facility] facility, please call [phone] ([phone]). Do not use lotions, creams, powders, perfume, make up, cologne or after-shaves day of surgery. Remove ALL jewelry including wedding rings, body piercings, hair extensions that contain metal, nail belizean, make-up, and contact lens. You may brush your teeth the morning of surgery, but do not swallow the water. Wear your dentures and partial plates to the hospital (no adhesive). Shower the night the before. If applicable, use the CHG (chlorhexidine gluconate) soap or wipes. Please place clean linens on your bed after showering. Do not allow your pets in your bed. Please be advised, [employer] has transitioned to a cashless payment system. What should I bring to the hospital? Eyeglass or contact lens case If you will be spending the night, please bring personal care items and leave them in the car until you are taken to your room after surgery. Leave ALL valuables at home. If any of these instructions conflict with those you recieved from the surgeon, please seek clarification from your surgeon's office. DEEP BREATHING EXERCISES This exercise helps promote good air exchange and helps to prevent pneumonia after surgery. Breathe in slowly and deeply through the nose. Hold your breath for a few seconds and then exhale slowly through the mouth. Repeat this three times and then cough. Coughing helps to clear your lungs. If you have had a surgery with an incision into your abdomen or chest, press gently against your incision with a pillow or a folded blanket when you cough. Please be aware - it may not be howard to cough following some types of surgeries involving the eyes, ears, sinuses and throat. Always follow your doctor's instructions. LEG EXERCISES These exercises help promote good circulation and help to prevent blood clots after surgery. Point your toes to the ceiling and then point them to the wall. Do this slowly about 15-20 times. You may also move your feet in circles. Do the exercise that is most comfortable for you. If you have had surgery involving your shoulder or arm, we recommend you move your fingers. PRACTICING We ask that you begin practicing these exercises before your surgery. After surgery try to do both exercises at least every 2 hours during the day and early evening. Surgical Site Infection Prevention What is a Surgical Site Infection (SSI)? Infection can happen to the area of the body where surgery is done. This is called a surgical site infection (SSI). A SSI does not happen very often. What are some of the things that hospitals are doing to prevent SSIs? Soap and water or alcohol hand rub are used before and after caring for each patient. Special soap is used to clean surgery workers hands and arms just before the surgery. Masks, gowns, gloves and hair covers are worn during the surgery to keep the area clean. Hair in the surgery area may be removed with clippers (not razors). A special soap that kills germs is used to clean the skin at the surgery site. Antibiotics may be given before the surgery starts. What can you do to prevent SSIs? Before surgery: You may be asked to shower or bathe with a special soap that kills germs the night before and the day of surgery. Use the soap as you were told. Place clean sheets on your bed the night before surgery and do not allow your pets in your bed. If you smoke or vape, stop or cut down. This creates a stress response in your body that increases inflammation, constricts blood vessels and deprives your tissues of oxygen. After surgery, this stress response disrupts the travel of oxygen, nutrients, and blood to your surgical site, interfering with the wound healing process. It also decreases the ability of your cells to fight infection. Ask your doctor about ways to quit. If you have high blood sugars or diabetes please talk with your doctor about having healthy blood sugar levels to promote healing. Do not shave near where you will have surgery. Shaving can irritate the skin and make it easier to get and infection. After surgery: Be sure that the doctors and nurses clean their hands before and after touching you. Be sure your family and friends clean their hands before and after visiting you. Do not be afraid to remind them. Always wash your hands before touching your incisional area. * Care for your wound at home as told by your doctor or nurse * Call your doctor right away if you have fever, redness, increased pain, or drainage at the surgery site. Can SSIs be treated? Antibiotics are used to treat SSI. Some patients may need another surgery to treat the infection. The doctor will discuss treatment options with you. Further questions? Contact the doctor, nurse or the Infection Prevention and Control department if you have any questions. PATIENT RIGHTS AND RESPONSIBILITIES As a patient at [facility], you have the right to: Receive medical care and be informed of who is taking care of you Be treated with dignity and respect Have a family member/sales and marketing representative of choice and your physician notified of your admission Receive information and actively participate in decisions about your care and treatment Refuse care, treatment and services Decide who may provide your support and speak for you Access yazidi and spiritual services Participate in ethical issues and questions about your care Receive private and confidential care Have appropriate assessment and management of your pain Know guest visitation restrictions or limitations Have an advance directive Access protective services Consent or refuse to participate in research studies or production or recordings, films or other images Have resolution of your complaints Receive information of hospital charges and payment methods Patient/patient sales and marketing representative responsibilities are to: Provide information about health status to facilitate care, treatment and services Follow the treatment, plan, keep appointments and speak up when you do not understand the plan Respect the rights of other patients and healthcare personnel Follow organizational rules and regulations that support quality care and a safe environment Fulfill financial obligations as promptly as possible documented in this encounter [facility] 01-12-2025 Nurse Note PATIENT AT [facility] CALLED AND RE[facility]ED MED[facility]-12[facility]2025 Nurse Note UPDATED CHART WITH FAXED MEDICAL HISTORY PROVIDED FROM [facility], FAXED PRE-PROCEDURE INSTRUCTIONS TO [facility]. [facility] 12-25-2024 Telephone encounter Note Requested Prescriptions Signed Prescriptions Disp Refills oxyCODONE (Roxicodone) 10 MG immediate release tablet 90 tablet 0 Sig: Take 1 tablet (10 mg) by mouth every 8 (eight) hours Authorizing Provider: RAJEEV SALAMANCA [facility] 12-25-2024 Miscellaneous Notes Requested Prescriptions Signed Prescriptions Disp Refills oxyCODONE (Roxicodone) 10 MG immediate release tablet 90 tablet 0 Sig: Take 1 tablet (10 mg) by mouth every 8 (eight) hours Authorizing Provider: RAJEEV SALAMANCA documented in this encounter [facility] 10-27-2024 Telephone encounter Note Requested Prescriptions Signed Prescriptions Disp Refills oxyCODONE (Roxicodone) 10 MG immediate release tablet 90 tablet 0 Sig: Take 1 tablet (10 mg) by mouth every 8 (eight) hours Authorizing Provider: RAJEEV SALAMANCA [facility] 10-27-2024 Miscellaneous Notes Requested Prescriptions Signed Prescriptions Disp Refills oxyCODONE (Roxicodone) 10 MG immediate release tablet 90 tablet 0 Sig: Take 1 tablet (10 mg) by mouth every 8 (eight) hours Authorizing Provider: RAJEEV SALAMANCA documented in this encounter [facility] 09-18-2024 Telephone encounter Note Dose reduction attempt. Oxycodone is decreased to q 8hrs from q 6 hrs. Monitor. Requested Prescriptions Signed Prescriptions Disp Refills oxyCODONE (Roxicodone) 10 MG immediate release tablet 90 tablet 0 Si tablet (10 mg) by Per G Tube route every 8 (eight) hours Authorizing Provider: RAJEEV SALAMANCA [facility] 09-18-2024 Miscellaneous Notes Dose reduction attempt. Oxycodone is decreased to q 8hrs from q 6 hrs. Monitor. Requested Prescriptions Signed Prescriptions Disp Refills oxyCODONE (Roxicodone) 10 MG immediate release tablet 90 tablet 0 Si tablet (10 mg) by Per G Tube route every 8 (eight) hours Authorizing Provider: RAJEEV SALAMANCA documented in this encounter [facility] 07-28-2024 Telephone encounter Note An Oxycodone rx is sent for this [place] patient today. Dx G89.4, R52. # 120 tablets, 0 Refills. [facility] 07-28-2024 Miscellaneous Notes An Oxycodone rx is sent for this [place] patient today. Dx G89.4, R52. # 120 tablets, 0 Refills. documented in this encounter [facility] 06-25-2024 Telephone encounter Note Ativan and oxycodone are sent for this [place] patient today. [facility] 06-25-2024 Miscellaneous Notes Ativan and oxycodone are sent for this [place] patient today. documented in this encounter [facility] 06-16-2024 Telephone encounter Note Mother calling with physician referral: Patient referred to Affiliate line Department. Mother denies any new or worsening symptoms of which a provider is not aware:Yes . Mom requesting information on a referral for son's osteomyelitis. Advised mom to have physician caring for patient at correction to call Aff[facility] Line [facility] 06-16-2024 Miscellaneous Notes Mother calling with physician referral: Patient referred to Affiliate line Department. Mother denies any new or worsening symptoms of which a provider is not aware:Yes . Mom requesting information on a referral for son's osteomyelitis. Advised mom to have physician caring for patient at correction to call [facility] Line documented in this encounter [facility] 05-28-2024 History of Present illness Narrative Images from the original note were not included. Chief complaint: Brainstem stroke Subjective Lolis Pooja Quinones, 39 y.o., male Lolis is here for a neurologic consult for stroke. He is currently at [facility]. He is here with both his parents. The stroke happened June 08 of last year. The stroke occurred in his brain stem they state. They have been wanting to follow up locally. He did a virtual visit while in the hospital with [facility]. He has not been seeing a neurologist since. He is able to communicate via paper with letters on it they use. He also looks up for no and blinks for yes. They state he is there cognitively but is physically dependant. They would like you to explain his condition as best you can. 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 He sticks his tongue out because it is easier for him to breathe. He is able to retract it though. Review of Systems Reason unable to perform ROS: due to the fact that the patient is unable to verbally communicate and has a tracheostomy. No past medical history on file. Past Surgical History: Procedure Laterality Date CT ANGIOGRAM HEART CORONARY 08/13/2023 CT ANGIOGRAM TAVR 08/13/2023 CT ANGIOGRAM HEART CORONARY 06/25/2023 CT ANGIOGRAM TAVR 06/25/2023 CT ANGIOGRAM UPPER EXTREMITY RIGHT Right 06/25/2023 CT ANGIOGRAM UPPER EXTREMITY RIGHT 06/25/2023 CT GUIDED TRANSVAGINAL TRANSRECTAL FLUID DRAIN 08/21/2023 CT GUIDED TRANSVAGINAL TRANSRECTAL FLUID DRAIN 08/21/2023 IR BILIARY CHOLECYSTOSTOMY 08/15/2023 IR BILIARY CHOLECYSTOSTOMY 08/15/2023 IR CVC PICC 11/24/2023 IR CVC PICC No family history on file. Social History Tobacco Use Smoking status: Not on file Smokeless tobacco: Not on file Substance Use Topics Alcohol use: Not on file Allergies: Patient has no allergy information on record. Vitals: 05/28/24 1346 BP: 105/57 Body mass index is 30.99 kg/m . weight: 170 lb 12.8 oz Neurologic exam: Mental status: Patient is awake and able to open his eyes. He is able to look towards the left and is able to blink to command. He also has vertical eye movements. He has difficulty with rightward gaze. He does have the ability to have some facial expression bilaterally Brainstem reflexes are intact He is unable to move his arms or his legs. He has mild spasticity throughout the bilateral upper and lower extremities. He is wheelchair-bound He has pathologic reflexes throughout Review and summary of old records: A summary of the patient's hospital admission at the time of acute stroke in March and April of 2023 is as follows: The patient initially presented to [facility] due to left-sided weakness, slurred speech, diplopia. While there, he was noted to have tonic posturing of his extremities and was given a total of 6 mg of Ativan after suspecting seizures. Due to his ongoing posturing he was loaded with levetiracetam, intubated and sedated, and transferred to [place] The patient initially presented to [facility] due to left-sided weakness, slurred speech, diplopia. While there, he was noted to have tonic posturing of his extremities and was given a total of 6 mg of Ativan after suspecting seizures. Due to his ongoing posturing he was loaded with levetiracetam, intubated and sedated, and transferred to [facility] for further evaluation management. His initial CT head without contrast was negative. 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 After his 10 day of admission with the patient started showing fluctuating fevers and sinus tachycardia that progressed to persistent high-grade fevers. An extensive infectious workup including blood cultures, urine analysis, urine culture, chest x-ray, CT abdomen and pelvis, bilateral venous duplex all came back negative. A CT angiogram of the chest ruled out pulmonary embolism. The patient was treated with an extended course of antibiotics without any effect on his persistent high-grade fevers and tachycardia. After the extensive negative workup, these fevers were thought to be neurogenic related to autonomic dysfunction, the patient was started on gabapentin and his metoprolol dose was increased which resulted in significant improvement of his temperature and heart rate. The patient was started on escitalopram 10 mg once daily due to depression. The patient was eventually discharged to a long-term care facility on 07/03/2023 with a stable exam, he was conscious, alert, able to answer questions with his eyes, able to follow commands with his eyes, had no spontaneous/purposeful movement over his 4 extremities. 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 This occurred in March of 2023. The patient was originally seen at [facility] for care. Patient had a tele neurology consult with [facility] and patient presents today with his mother and father with questions regarding his care and outcome. I did tell them, at this time, with stroke being approximately 1 year ago, I do not anticipate a meaningful neurologic recovery of the patient's function of his arms or legs. I do not anticipate substantial improvements otherwise neurologically at this time. Plan: Continue aspirin and Eliquis for secondary stroke prevention I did ask them to work with his care facility to have another occupational therapy assessment to see if he would be a candidate for communication device that would be responsive to eye movements that we sometimes see in patients with ALS. They will explore this again but stated that this was previously tried and failed. Spasticity The patient does have some mild spasticity in the bilateral upper and lower extremities. His mother does do passive range of motion exercises with him regularly which is probably help the spasticity tremendously. Plan: Should this worsen we could certainly consider Botox for spasticity of his extremities Osteomyelitis The patient does have a sacral wound which has led to osteomyelitis. I did tell the family that this is a serious condition that would require antibiotic treatment that would be very long-term. Plan: Follow up with surgery and wound care We did have a discussion regarding the patient's quality of life and I did tell the family that in my professional opinion I believe goals of care should be discussed and that comfort should be the primary goal in his care going forward. It seemed to voiced understanding to this affect. They are continuing to drake urinary tract infections and pneumonia and sacral infection and osteomyelitis. I told them I suspected that these would continue to be ongoing issues for the patient. Pt has been fully educated on their diagnosis, lab results, treatment options, follow up plan, and return instructions High-degree medical decision-making. Need for extensive discussion with the family greater than 60 minutes on [id number] interaction discussing diagnosis, prognosis and treatment options in detail. Review of extensive previous notations, imaging reports and hospitalizations. documented in this encounter [facility] 05-20-2024 Telephone encounter Note Rx for oxycodone is sent, #120 tabs, a 1 month supply for this [facility] patient. [facility] 05-20-2024 Miscellaneous Notes Rx for oxycodone is sent, #120 tabs, a 1 month supply for this [facility] patient. documented in this encounter [facility] 05-20-2024 History of Present illness Narrative Radiology Service Progress Note DATE OF SERVICE: May 20, 2024 TIME: 5:02 PM PATIENT WEIGHT: 170LBS PATIENT IDENTITY VERIFICATION COMPLETED USING TWO (2) STANDARD IDENTIFIERS: Name and Date of confirmed by identification band and Name and Date of obtained from a relative, guardian or prior caregiver.. FALL SCREENING: Has the patient had 2 falls in the last year or 1 fall with injury or currently using an Ambulatory Assistive Device (Walker, Cane, Wheelchair, Crutches, etc.)? Yes, Patient High Risk for Falls What interventions were put in place to prevent falls during this visit? Non-Skid Socks Used, Yellow Falls Risk Wristband Applied, Instructed Patient to Call for Help if Needed, Offered Assistance with Transfers/Clothing, Instructed Patient to Remain Seated (Not on Exam Table) Until Exam, Increased Observations by Caregivers, Patient Refused Interventions/Assistance, and family at bedside verbalizes understanding. PATIENT GENDER DATA: Male ALLERGIES: Reviewed and unchanged CONTRAST ALLERGY: No EXAM: MRI - CONTRAST TYPE: GROUP II IV SITE: Ambulatory: A peripheral IV was started in the Right forearm with a Angio cath: 22 gauge. IV SITE APPEARANCE: Clean,Dry and Intact Patient arrived via cart, with Trach and ventilator, RT at bedside changing to MRI safe vent. Family with patient. SIGNATURE: Parveen Foster RN PATIENT NAME: Lolis Quinones III DATE: May 20, 2024 TIME: 5:02 PM Radiology Service Progress Note PATIENT NAME: Lolis Quinones III DATE OF SERVICE: May 20, 2024 TIME: 5:38 PM PATIENT IDENTITY VERIFICATION COMPLETED USING TWO [...] PATIENT PRESENTS WITH AN IMPLANTABLE OR ATTACHED HOT DIE PICKER: No RADIOLOGY DEPARTMENT: MR; Exam(s) Completed: Body: Pelvis PERIPHERAL IV DATA: Site assessment: Clean,Dry and Intact, Site disposition Left in for next appointment SIGNED BY: RT Jaspreet(R) May 20, 2024 5:38 PM documented in this encounter [facility] 05-20-2024 Note [facility] 05-20-2024 Note [facility] 01-21-2024 Telephone encounter Note RX did not print. Reyna gagnon notified and provided number for [facility], that is used for pt care at their facility. Called [phone] and spoke with Diomedes Mata. She will add the Iron and Folic acid, as prescribed to pt MAR and notify facility of new medications to be given, as prescribed. They will call if any concerns/issues arise. Shanna Roa RN [facility] 01-21-2024 Miscellaneous Notes RX did not print. Reyna gagnon notified and provided number for [facility], that is used for pt care at their facility. Called [phone] and spoke with Esperanza [facility]. She will add the Iron and Folic acid, as prescribed to pt MAR and notify facility of new medications to be given, as prescribed. They will call if any concerns/issues arise. Shanna Roa RN Signed. thanks Spoke with mother. Pt admitted last night to [place], for aspiration of tube feed. She is aware of Luis Miguel's message and recommendations. She is asking if these can be increased in his tube feeding to continue with conservative treatment vs transferring for IV Iron. I will call to discuss with Reyna Gagnon. Called to Reyna Gagnon. Lizy reports pot operator is only in office on . Pt being given Osmolyte 1.2. No additional RX for Iron or Folic acid being given. If RX's recommended, she requests we fax to [phone]. Luis Miguel: pended Folic acid and Iron [...] Roa RN Labs awaiting final results per [facility]. Will check back Saturday. Shanna Roa RN Call placed to [facility] labs not all resulted. She will fax all results, once finalized. Shanna Roa RN Faxed lab orders to [phone] per Benjamín's request. Ashley Beltran Images from the original note were not included. Triage: Please see Dr. Bolanos's recommendations below for follow up. Thanks! I printed lab orders and will have them sent to facility. Jf Mann MD [facility] Clerical Pool 1. Draw labs at facility a. Send labs orders to them b. Triage call results to Marty (his mother) in 1 week i. Will plan follow up 2. Continue tube feeding with iron and folic acid supplementation. documented in this encounter [facility] 01-21-2024 Telephone encounter Note Signed. thanks [facility] 01-21-2024 Telephone encounter Note Spoke with mother. Pt admitted last night to [place], for aspiration of tube feed. She is aware of Luis Miguel's message and recommendations. She is asking if these can be increased in his tube feeding to continue with conservative treatment vs transferring for IV Iron. I will call to discuss with Reyna Gagnon. Called to Reyna Gagnon. Lizy reports pot operator is only in office on . Pt being given Osmolyte 1.2. No additional RX for Iron or Folic acid being given. If RX's recommended, she requests we fax to [phone]. Luis Miguel: pended Folic acid and Iron to be given per peg tube. Please review and sign, if agreeable. Shanna Roa RN [facility] 01-21-2024 Telephone encounter Note His iron [...] be placed in his tube is fine. [facility] 01-20-2024 Telephone encounter Note Luis Miguel: please review scanned labs and advise Shanna Roa RN [facility] 01-16-2024 Telephone encounter Note Labs awaiting final results per Lyla. Will check back Saturday. Shanna Roa RN [facility] 01-13-2024 Telephone encounter Note Call placed to [facility] labs not all resulted. She will fax all results, once finalized. Shanna Roa, RN [facility] 01-06-2024 Telephone encounter Note Faxed lab orders to [phone] per Benjamín's request. Ashley Beltran [facility] 01-03-2024 Telephone encounter Note Images from the original note were not included. Triage: Please see Dr. Bolanos's recommendations below for follow up. Thanks! I printed lab orders and will have them sent to facility. Jf Mann MD [facility] Clerical Pool 1. Draw labs at facility a. Send labs orders to them b. Triage call results to Marty (his mother) in 1 week i. Will plan follow up 2. Continue tube feeding with iron and folic acid supplementation. [facility] 01-03-2024 Instructions Jf Waldron MD - 01/03/2024 4:04 PM EDT Draw labs at facility Send labs orders to them Triage call results to Marty (his mother) in 1 week Will plan follow up Continue tube feeding with iron and folic acid supplementation. documented in this encounter [facility] 01-03-2024 History of Present illness Narrative Images from the original note were not included. NAME: Lolis Quinones [facility] NO.: [id number] DATE OF SERVICE: January 03, 2024 (Sunil) [...] NOTE This is a virtual visit using Dwe[employer] Zoom Video Visit. It required patient-provider interaction for the medical decision making as documented below. I have communicated my name and active licensure. The patient's identity and physical location were verified at the time of this visit. Either the patient or their legal sales and marketing representative has been informed of the risks and benefits of -- and alternatives to -- treatment through a remote evaluation and consents to proceed with the evaluation remotely. DIAGNOSIS: Anemia - GI bleed ASSESSMENT: 38 year old man with multiple chronic issues and locked-Syndrome with chronic Tube feeding. He had a GI bleed and was admitted to [facility] in November 2023 with Sepsis and GI [...] orders to them Triage call results to Marty (his mother) in 1 week Will plan follow up Continue tube feeding with iron and folic acid supplementation. HPI: CASE HISTORY: Reverse Chronological Order 11/28/2023 - CBC: 11.22 > 8.4 / 27.3 < 365 11/21/2023 - CBC: 21.88 > 9.5 / 33.1 < 435 11/21/2023-11/28/2023 - Admitted to [place] for sepsis & GI bleeds 10/22/2023 - CBC: 13.67 > 10.4 / 33.4 < 479 10/09/2023 - CBC: 10.27 > 9.7 / 32.9 < 446 10/09/2023-10/23/2023 - Admitted to [facility] for decubitus ulcer Initial Visit, January 03, 2024: Virtual Visit Lolis Quinones III presents today for a virtual Hematology and Oncology evaluation. He is a 38 year old male with chronic anemia. 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. Most recent CBC from 11/28/2023: 11.22 > 8.4 / 27.3 < 365. He was hospitalized twice for GI bleeds, Protonix and carafate seem to be helping now. He does not have any current bleeds. He currently has decubitus ulcers. His nutritional supplements have folic acid and iron, and he is on Eliquis. Patient's mother Marty is with him. He is unable to [...] of Onset Ischemic Heart Disease Paternal Grandfather [place] at 36 I spent a total of 60 minutes on the date of the service which included preparing to see the patient, [id number] patient care, completing clinical documentation, obtaining and/or reviewing separately obtained history, counseling and educating the patient/family/caregiver, ordering medications, tests, or procedures, independently interpreting results (not separately reported), communicating results to the patient/family/caregiver, and care coordination (not separately reported). Jf Waldron MD, CPE Hematology and Oncology Services Provided at: [facility], [place], [place] Scribe Attestation: This note was scribed [...] SELF Sergei Root II, MD, MD [address] [facility] [address] [facility] [id number] documented in this encounter [facility] 01-03-2024 Note [facility] 01-02-2024 Telephone encounter Note Pt's mom called saying she spoke with pt's insurance company and they would need a PA for the MRI [facility] 01-02-2024 Miscellaneous Notes Pt's mom called saying she spoke with pt's insurance [employer] and they would need a PA for the MRI Marty, pt's mom, called saying a follow-up MRI [...] will call back. documented in this encounter [facility] 01-01-2024 Telephone encounter Note Marty, pt's mom, called saying a follow-up MRI [...] for a facility and will call back. [facility] 12-20-2023 Miscellaneous Notes Patient unable to get scan at [facility], needs a hosptial for a lift. Spoke to patients father who is also Lolis Quinones., I rescheduled this patient for [facility] on 01/17/24 @ 5pm. Patient is immobile & would need a hospital setting with the proper equipment to lift patient on & off the table. documented in this encounter [facility] 11-27-2023 Note HNO ID: [id number] Author: KATHIE BURROWS RN Service: Care Management Author Type: Registered Nurse Type: Care Mgt Progress Note Filed: 11/27/2023 15:06 Note Text: CARE MANAGEMENT DISCHARGE NOTE SERVICE DATE: November 27, 2023 SERVICE TIME: 3:02 PM Admission Date: 11/21/2023 LOS: 6 days Discharge Arrangement Discharge Arrangement: Jail Facility Caregiver Assessment Caregiver is ready, willing and able to meet the patient's needs as recommended by the inter-professional team: Yes Name of Caregiver: confirmed with facility patient can return Transportation Arrangements Transportation Arrangements: Ambulance Transportation Agency and Phone #:: [facility] [phone] Date of Trip: 11/28/23 Time of Trip: 1230 Type of Service: ALS Non-emergency Is Patient Medicaid Pending?: No Specialty Development Consultant Location: [place] Destination: [facility] Handoff Communication: Handoff to: Other Caregiver Other Caregiver Name/Phone: updated Jackie RN with number for report [phone] and plan for DC tomorrow @ 12:30 pm Discharge Information Row Name Admission (Current) from 11/21/2023 in [facility] Intensive Care Unit [facility] Facility Agency [facility] Met with father Lolis at bedside, he is in agreement with plan for return to [facility] tomorrow. He became tearful when expressing gratitude for the care his son has been provided, stated nurses are angels . 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 According [...] had a percutaneous kwasi tube placed at [facility] which was removed 10/10/2022. ED provider initially requested patient to transfer to MICU at [facility] per family request but due to bed availability, patient is to be admitted to ICU at [place] for Sepsis and Chronic Respiratory Failure requiring continuous ventilator support. 11/25 no fevers, baseline vent settings, EGD showed gastritis 11/26 no change, WBC decreasing, can be discharged tomorrow once last antibiotic dose is given Subjective INTERVAL EVENTS: No Change Objective MEDICATIONS: Current medications and allergies reviewed. Recommended/planned medication changes discussed in detail in the A/P section below. Please refer to [facility] for list of inpatient medications. VITAL SIGNS: [...] Is Patient Clinically Ready to Transfer to [facility] or SDU?: No Discharge Planning: LTACH Prevention: [...] PRN Proventil -hypertonic (more content not included)... [facility] 11-26-2023 Note HNO ID: [id number] Author: NIGEL GUTIERREZ MD Service: Critical Care Author Type: Anesthesiologist Type: Progress Notes Filed: 11/26/2023 18:20 Note Text: SERVICE DATE: 11/26/2023 SERVICE TIME: 6:19 PM [facility] PROGRESS NOTE BRIEF HPI: [...] and cervical spinal stenosis who resides at [facility] in [facility] who presented to [place] ED for fever and increased SOB. According [...] had a percutaneous kwasi tube placed at [facility] which was removed 10/10/2022. ED provider initially requested patient to transfer to MICU at [facility] per family request but due to bed availability, patient is to be admitted to ICU at [place] for Sepsis and Chronic Respiratory Failure requiring continuous ventilator support. 11/25 no fevers, baseline vent settings, EGD showed gastritis Subjective INTERVAL EVENTS: No Change Objective MEDICATIONS: Current medications and allergies reviewed. Recommended/planned medication changes discussed in detail in the A/P section below. Please refer to [facility] for list of inpatient medications. VITAL SIGNS: [...] antibiotic course no (more content not included)... [facility] 11-26-2023 Note HNO ID: [id number] Author: SHANNA SMITH APRN.GRID MOLDER Service: Gastroenterology Author Type: Nurse Practitioner Type: [...] urgent GI needs. Will follow as needed [facility] 11-26-2023 Note HNO ID: [id number] Author: KELSEY DEGROOT APRN.GRID MOLDER Service: Neurology General Author Type: Nurse Practitioner Type: Plan of Care Filed: 11/26/2023 12:59 Note Text: TELENEUROLOGY CONSULT PROGRESS NOTE Patient seen using [facility]. Recommendations are placed in the chart. Please review. For questions after hours, when teleneurologist is not available, for [place]: Please Page [phone] for the [facility] from 5P to 8A Please follow normal inpatient acute stroke procedures per routine as needed. SERVICE DATE: 11/26/2023 SERVICE TIME: 12:58 PM Results of chart reviewed and the recommendations are: Incidentally noted, partially imaged cervical spine stenosis can be followed outpatient in [facility] center. Reportedly already has history of C spine surgery. Hx of locked-in syndrome [facility] will not follow this patient. Please call for additional assistance. SIGNATURE: Kelsey Degroot APRN.LAYA PATIENT NAME: Lolis Quinones III DATE: November 26, 2023 TIME: 12:58 PM PAGER/CONTACT #: [facility] 11-26-2023 Note HNO ID: [id number] Author: KATHIE BURROWS RN Service: Care Management Author Type: Registered Nurse Type: Care Mgt Progress Note Filed: 11/26/2023 12:05 Note Text: CARE MANAGEMENT PROGRESS NOTE SERVICE DATE: 11/26/2023 SERVICE TIME: 12:04 PM LOS: 5 days Updated clinical sent to [facility]. Plan is to return when medically cleared. Interdisciplinary rounds occurred this am. SIGNATURE: Kathie Burrows RN PATIENT NAME: Lolis Quinones III DATE: November 26, 2023 TIME: 12:04 PM PAGER/CONTACT #: [phone] [facility] 11-26-2023 Note HNO ID: [id number] Author: GENEVA SHARP MD Service: Infectious Disease [...] 0659 11/26/23 07 - 11/27/23 0659 Shift 4559-6865 1585-1853 5027-9751 24 Hour Total 7229-0166 8736-1515 7754-1264 24 Hour Total INTAKE IV 200 200 Volume (mL) (potassium chloride iv piggyback 20 mEq/100 mL) 100 100 Volume (mL) (meropenem 1 g in NaCl 0.9% 100 mL Vial-Bag (MERREM)) 100 100 Shift Total 200 200 OUTPUT Urine 746 409 4205 2675 Output ( Indwelling Urinary Catheter 11/21/23 1600 [facility] Coude 16 Fr) 698 842 6380 2675 Shift Total 274 163 4936 2675 Weight (kg) 76.2 76.2 76.2 76.2 [...] blood cx NGTD 08/13/2023: [facility] Klebs[facility] (obtained from care everywhere) [...] and klebsiella pneumonia (more content not included)... [facility] 11-25-2023 Note HNO ID: [id number] Author: NIGEL GUTIERREZ MD Service: Anesthesiology Author Type: Anesthesiologist Type: Progress Notes Filed: 11/25/2023 19:34 Note Text: SERVICE DATE: 11/25/2023 SERVICE TIME: 5:42 PM [facility] PROGRESS NOTE BRIEF HPI: Subjective INTERVAL EVENTS: No Change Objective MEDICATIONS: Current medications and allergies reviewed. Recommended/planned medication changes discussed in detail in the A/P section below. Please refer to [facility] for list of inpatient medications. VITAL [...] Is Patient Clinically Ready to Transfer to [facility] or SDU?: No Discharge Planning: LTACH Prevention: [...] Prophylaxis/Anticoagulants 11/21/23 1500 activity - mobilize patient (va,oh) VTE Prophylaxis: Contraindicated GI bleed p (more content not included)... [facility] 11-25-2023 Note HNO ID: [id number] Author: GENEVA SHARP MD Service: Infectious Disease [...] speech difficulties Psychological: appropriate behavior Stool: Date 11/24/23699 - 11/25/23 0659 11/25/23 07 - 11/26/23 0659 Shift 4545-2270 1453-0994 3826-2560 24 Hour Total 8704-8792 8373-9793 9839-5190 24 Hour Total INTAKE IV 1282 1282 [...] Total 50 90 3168 3308 OUTPUT Urine 7629 457 4320 2865 300 300 Output ( Indwelling Urinary Catheter 11/21/23 1600 [facility] Coude 16 Fr) 0514 645 5187 2865 300 300 Tubes 140 160 300 Output mL (I/O) (GI/ Feeding Gastric Right Abdomen) 140 160 300 # of BMs Stool Incontinence 1 x 1 x Number of BMs 1 x 1 x Shift Total 9855 868 1884 3165 300 300 Weight (kg) 76.7 76.7 [...] blood cx NGTD 08/13/2023: [facility] ESBL Klebsiella (obtained from care everywhere) [...] chronic trach w (more content not included)... [facility] 11-25-2023 Note HNO ID: [id number] Author: CASIE MEDRANO PA-C Service: Neurology General Author Type: Physician Diesel Crane Operator Type: Plan of Care Filed: 11/25/2023 10:55 Note Text: TELENEUROLOGY CONSULT PROGRESS NOTE Patient seen using [facility]. Recommendations are placed in the chart. Please review. For questions after hours, when teleneurologist is not available, for [place]: Please Page [phone] for the [facility] from 5 pm to 8 [...] had cervical spine surgery around 2015 in [place], although he cannot recall specifics. Could consider referral to [facility] although focus may be on pain management if patient can feel pain. Have not yet seen an examined patient. Will decide on need for referral after seeing. Teleneurology service will follow up pending studies. 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 According [...] had a percutaneous kwasi tube placed at [facility] which was removed 10/10/2022. ED provider initially requested patient to transfer to MICU at [facility] per family request but due to bed availability, patient is to be admitted to ICU at [place] for Sepsis and Chronic Respiratory Failure requiring continuous ventilator support. Subjective INTERVAL EVENTS: No further signs of bleeding; PICC placed for TPN Objective MEDICATIONS: Current medications and allergies reviewed. Recommended/planned medication changes discussed in detail in the A/P section below. Please refer to [facility] for list of inpatient medications. VITAL SIGNS: [...] Is Patient Clinically Ready to Transfer to [facility] or SDU?: No Discharge Planning: SNF Prevention: [...] opposed to anatomi (more content not included)... [facility] 11-24-2023 Note HNO ID: [id number] Author: JENNIFER EVANS RN Service: PICC Team Author Type: Registered Nurse Type: Procedures Filed: 11/24/2023 10:54 Note Text: PICC NURSE INSERTION NOTE DATE OF PROCEDURE: November 24, 2023 TIME OF PROCEDURE: 1030 ORDERING PHYSICIAN: Dr. Schrader INFORMED CONSENT: Obtained per hospital policy. INDICATION FOR LINE PLACEMENT: IV access CONDITION OF LINE PLACEMENT: Sterile PRIMARY PROCEDURALIST: Amy Cedillo RN PLASTIC CUTTER: Jennifer Evans RN PRE-PROCEDURE REVIEW ALLERGIES Allergen [...] collected. Jennifer Evans RN CATHETER PLACEMENT Brand: [employer] Lot: [id number] Number of Lumens: 2 Type of PICC: Power Injectable PICC Lumen Size: 5 Uzbek PLACEMENT TECHNIQUE Lidocaine: Yes, Lidocaine 1% Volume [...] Patient Education Materials: Placed in chart [facility] Line Insertion checklist was utilized during this procedure. QUESTIONS or PROBLEMS: Call [phone] [facility] SIGNATURE: Jennifer Evans RN PATIENT NAME: Lolis Quinones III DATE: November 24, 2023 TIME: 10:41 AM [facility] 11-23-2023 Note HNO ID: [id number] Author: NIMA SCHRADER MD Service: Critical Care Author Type: Anesthesiologist Type: Progress Notes Filed: 11/23/2023 11:46 Note Text: SERVICE DATE: 11/23/2023 SERVICE TIME: 11:37 AM [facility] PROGRESS NOTE BRIEF HPI: [...] and cervical spinal stenosis who resides at [facility] in [facility] who presented to [place] ED for fever and increased SOB. According [...] had a percutaneous kwasi tube placed at [facility] which was removed 10/10/2022. ED provider initially requested patient to transfer to MICU at [facility] per family request but due to bed availability, patient is to be admitted to ICU at [place] for Sepsis and Chronic Respiratory Failure requiring continuous ventilator support. Subjective INTERVAL EVENTS: received 1u pRBCs for Hgb 6.8-->8.2 Objective MEDICATIONS: Current medications and allergies reviewed. Recommended/planned medication changes discussed in detail in the A/P section below. Please refer to [facility] for list of inpatient medications. VITAL SIGNS: [...] Is Patient Clinically Ready to Transfer to [facility] or SDU?: No Discharge Planning: SNF Prevention: [...] anatomic; will r (more content not included)... [facility] 11-22-2023 Note HNO ID: [id number] Author: NIMA SCHRADER MD Service: Critical Care Author Type: Anesthesiologist Type: Progress Notes Filed: 11/22/2023 14:53 Note Text: SERVICE DATE: 11/22/2023 SERVICE TIME: 2:34 PM [facility] PROGRESS NOTE BRIEF HPI: [...] and cervical spinal stenosis who resides at [facility] in [facility] who presented to [place] ED for fever and increased SOB. According [...] had a percutaneous kwasi tube placed at [facility] which was removed 10/10/2022. ED provider initially requested patient to transfer to MICU at [facility] per family request but due to bed availability, patient is to be admitted to ICU at [place] for Sepsis and Chronic Respiratory Failure requiring continuous ventilator support. Subjective INTERVAL EVENTS: No change Objective MEDICATIONS: Current medications and allergies reviewed. Recommended/planned medication changes discussed in detail in the A/P section below. Please refer to [facility] for list of inpatient medications. VITAL SIGNS: [...] with endoscopy after resolution of acute symptoms. Lens Assistant: BENOIT Transcribe Date/Time: Nov 22 2023 1:14P Dictated [...] Is Patient Clinically Ready to Transfer to [facility] or SDU?: No Discharge Planning: SNF Prevention: Line Status: None Iverson Status: Present, will maintain Iverson Status Details: Urinary retention or obstruction Pressure Injury Status: Present on admission, specify GI/Stress Ulcer Prophylaxis: PPI Nutri (more content not included)... [facility] 11-22-2023 Note HNO ID: [id number] Author: ADOLFO CORMIER RPh Service: Pharmacy Author Type: Pharmacist Type: Plan of Care Filed: 11/22/2023 11:12 Note Text: PHARMACY MEDICATION REVIEW Patient Name: Lolis Quinones III : 1985 The following medications were updated within the QUALITY ASSURANCE COACH medication list: Medications ADDED to QUALITY ASSURANCE COACH medication list Dakin's solution Artificial tears Oxycodone Alprazolam Medications CHANGED on [facility] ASSURANCE [facility]ACH medication list Route changed for apixaban Baclofen changed from 15 mg TID to 5 mg TID Metoprolol changed from 12.5 mg BID to 25 mg BID PRN indication added to eye ointment Medications REMOVED from [facility]URANCE [facility] medication list Dextrose IV Dextrose gel KPhos Multivitamin Additional comments: Medications given at outside hospital:Vancomycin 1.25 g and pip-tazo 3.375 g given at outside ED prior to [facility] admission The below information represents the best possible medication history: Yes Medication history completed by: Pharmacist: Adolfo Cormier RPh Source of history: assisted/Other [facility] and Outside hospital records - Name:[facility] (spoke to their inpatient pharmacist 11/21) Medication nonadherence identified: Unable to assess; MAR not included with paperwork Reconciliation completed: Yes Completed by: Adolfo Cormier RPh All QUALITY ASSURANCE COACH medications addressed by LIP Patient interested in Bedside Delivery Services or using OP Pharmacy at discharge? No Preferred outpatient pharmacy: [facility] Allergies: Fentanyl Shortness of Breath Prior [...] a day. Facility-Administered Medications: None Adolfo Cormier [facility] 11/22/2023 [facility] 11-22-2023 Note HNO ID: [id number] Author: EVARISTO FERNÁNDEZ RT(R) Service: ? Author [...] PATIENT PRESENTS WITH AN IMPLANTABLE OR ATTACHED HOT DIE PICKER: No RADIOLOGY DEPARTMENT: CT; Exam(s) Completed: Chest Abdomen Pelvis PERIPHERAL IV DATA: Not applicable SIGNED BY: RT Flaquita(Clark) November 22, 2023 10:19 AM [facility] 11-22-2023 Note HNO ID: [id number] Author: ORIANA VAUGHAN RT(R) Service: ? Author [...] PATIENT PRESENTS WITH AN IMPLANTABLE OR ATTACHED HOT DIE PICKER: No RADIOLOGY DEPARTMENT: General X-ray: Exam(s) Completed: Chest X-Ray PERIPHERAL IV DATA: Not applicable SIGNED BY: RT Michael(R) November 22, 2023 6:29 AM [facility] 11-21-2023 Note HNO ID: [id number] Author: SHA DANGELO RT(R) Service: Radiology Author [...] PATIENT PRESENTS WITH AN IMPLANTABLE OR ATTACHED HOT DIE PICKER: No RADIOLOGY DEPARTMENT: General X-ray: Exam(s) Completed: Chest X-Ray PERIPHERAL IV DATA: Not applicable SIGNED BY: RT Elke(R) November 21, 2023 4:36 PM [facility] 11-21-2023 History of Past i llness [...] of this encounter (statuses as of 12/03/2023) [facility] History of Past illness Narrative* Problem Noted [...] of this encounter (statuses as of 12/20/2023) [facility] History of Past illness Narrative* Problem Noted [...] of this encounter (statuses as of 12/26/2023) [facility] History of Present illness Narrative* Yash Cornejo APRN.CNP - 11/21/2023 1:52 PM EDT Images from the original note were not included. CRITICAL CARE TRANSPORT MEDICAL CONTROL CONSULT NOTE Patient Name: Lolis Quinones III Service Date: November 21, 2023 Referring Facility: [facility] Accepting Facility: [facility] REASON [...] pressure ulcer, pneumonia, [facility]TI [facility]. Presented tachycardic [...] confirmed and read back via telephone with [facility] Transport managing member, Paola Richards RN SIGNATURE: Yash Cornejo APRN.CNP Acute Care Nurse Practitioner Critical Care Transport [facility]24 NoteHNO ID: [id number] Author: ?, ?, ? Service: ? Author Type: ? Type: Progress Notes Filed: 11/08/2023 14:05 Note Text: [place] copat stop date No follow up [facility]Day[facility] History of Present illness Narrative* Feng Adm Asst Iveth Hightower - 11/08/2023 2:05 PM EST [place] copat stop date No follow up needed documented in [facility] 10-16-2023 [facility]2024 [facility]20[facility]20[facility]2024 [facility]20[facility]20[facility] 10-10-2023 [facility]23 Miscellaneous Notes* Telephone Encounter - Kathie Beckford - 09/03/2023 8:51 AM EST Patient resides in [place], patients father stated there is not transportation and that he will have his call us when she is at home to possible reschedule or provide video visit. [facility] Telephone encounter Note* Telephone Encounter - Kathie Beckford - 09/03/2023 8:51 AM EST Patient resides in [place], patients father stated there is not transportation and that he will have his call us when she is at home to possible reschedule or provide video visit. [facility] [id number] Hospital Discharge instructions Patient Education 10/01/2022 08:20:01 [...] prostate. Follow these instructions at home: Take dlbw-tyb-jwqzaae and prescription medicines only as told by [...] 08/23/2001 Document Revised: 11/08/2018 Document Reviewed: 05/16/2017 [employer] Patient Education 2020 [employer]. Follow Up Care 10/02/2021 11:05:28 With:ANNABELLE ANGUIANO, Cj Rodas, URL Address: [facility] [address], [place] [address]- When: Unknown [facility] 03-22-2022 Evaluation note* Encounter Date Diagnosis Assessment Notes Treatment Notes Treatment Clinical Notes Nov, Closed fracture of distal end of right radius with routine healing, unspecified fracture morphology, subsequent encounter (ICD-10 - S52.501D) Radiographs reviewed with patient as healed fracture. May progress activity at this time. Continue motion and strengthening. Call with questions/concern s. [employer] Other 03-01-2022 NotePROCEDURE: XR WRIST RT 2V [...] Electronically authenticated by: CLAIR CORTES Date: 2021-11-07 14:07[facility]03-01-2022 Evaluation note* Encounter Date Diagnosis Assessment Notes [...] may continue off work at this time. 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 [employer] Other 02-07-2022 NotePROCEDURE: XR WRIST RT MIN [...] Electronically authenticated by: CLAIR CORTES Date: 2021-10-16 11:24[facility] Future Appointments Appointment Date:10/07/2023 10:15:00 AM Scheduled Provider:Cj ALANIS MD Location:[facility] Appointment Type:URO Office Visit [facility] evaluation note* Diagnosis Iron deficiency anemia due to chronic blood loss- Primary Iron deficiency anemia secondary to blood loss (chronic) [facility] Diagnosis Sepsis, due to unspecified organism, unspecified whether acute organ dysfunction present (HCC) Chronic respiratory failure (HCC) Chronic respiratory failure Ischemic stroke (HCC) Decubitus ulcer Pressure ulcer, unspecified site History of DVT (deep vein thrombosis) Personal history of venous thrombosis and embolism ITZEL (acute kidney injury) (HCC) Acute kidney failure, unspecified Tachycardia Tachycardia, unspecified Coffee ground emesis Hematemesis Incontinence of feces Full incontinence of feces Malnutrition of moderate degree (HCC) Malnutrition of moderate degree Encounter for management of wound VAC Pneumonia of both lower lobes due to infectious organism Urinary tract infection associated with indwelling urethral catheter (HCC) (HCC) Aspiration pneumonia of both lower lobes due to gastric secretions (HCC) Sacral wound, initial encounter History of ischemic vertebrobasilar artery brainstem stroke Transient ischemic attack (TIA), and cerebral infarction without residual deficits Tremor Abnormal involuntary movements Visual hallucinations Psychophysical visual disturbances 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 myositis [facility] Diagnosis Pain- Primary Generalized pain Anxiety Anxiety state, unspecified [facility] Diagnosis Chronic pain syndrome- Primary [facility] Diagnosis Pain- Primary Generalized pain [facility]* 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 Brainstem stroke (CMS/HCC) Unspecified cerebral artery occlusion with cerebral infarction Spasticity Abnormal involuntary movements Osteomyelitis, unspecified site, unspecified type (CMS/HCC) [facility] Diagnosis Chronic pain syndrome- Primary [facility] Diagnosis Chronic pain syndrome- Primary [facility] Diagnosis Nystagmus- Primary Unspecified nystagmus 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 Brainstem stroke (CMS/HCC) Unspecified cerebral artery occlusion with cerebral infarction Spasticity Abnormal involuntary movements [facility] Diagnosis Chronic pain syndrome- Primary Anxiety Anxiety state, unspecified [facility] Diagnosis Sepsis, due to unspecified organism, unspecified whether acute organ dysfunction present (HCC) Chronic respiratory failure (HCC) Chronic respiratory failure Ischemic stroke (HCC) Decubitus ulcer Pressure ulcer, unspecified site History of DVT (deep vein thrombosis) Personal history of venous thrombosis and embolism ITZEL (acute kidney injury) Acute kidney failure, unspecified Tachycardia Tachycardia, unspecified Coffee ground emesis Hematemesis Incontinence of feces Full incontinence of feces Malnutrition of moderate degree (HCC) Malnutrition of moderate degree Encounter for management of wound VAC Pneumonia of both lower lobes due to infectious organism Urinary tract infection associated with indwelling urethral catheter Aspiration pneumonia of both lower lobes due to gastric secretions (HCC) Sacral wound, initial encounter History of ischemic vertebrobasilar artery brainstem stroke Transient ischemic attack (TIA), and cerebral infarction without residual deficits Tremor Abnormal involuntary movements Visual hallucinations Psychophysical visual disturbances OPENED IN ERROR- Primary To allow closing an encounter opened in error (used in SmartSet) [facility] Diagnosis Chronic pain syndrome- Primary [facility] Diagnosis Chronic pain syndrome- Primary Anxiety Anxiety state, unspecified [facility] Diagnosis Chronic pain syndrome Anxiety Anxiety state, unspecified [facility] Diagnosis Chronic heart failure with preserved ejection fraction (CMS-HCC)- Primary Cardiomegaly [facility] Diagnosis Anxiety- Primary Anxiety state, unspecified [facility] Diagnosis Anxiety- Primary Anxiety state, unspecified Chronic pain syndrome documented in this encounter [facility] Narrative - Reported* Type Description Date Medical History hypertension Surgical History Foot Surgery Surgical History tonsillectomy and adenoidectomy Hospitalization History See Above [employer] Other Hospital course Narrative No data available for this section [facility] [place] InstructionsNot on filedocumented in this encounter [facility] filedocumented in this encounter [facility]ructionsNot on filedocumented in this encounter [facility]ructionsNot on filedocumented in this encounter [facility]ructionsNot on filedocumented in this encounter [facility]InstructionsNot on filedocumented in this encounter [facility] No data available for this section [facility] Summary Purpose Family History No Family History [...] Date Activated Date Inactivated Comments Full Code 08/13/2023 11:04 AM 08/24/2023 12:14 PM Code Status History Code Status Date Activated Date Inactivated Comments Full Code 06/09/2023 4:27 AM 07/03/2023 1:50 PM Full Code 08/27/2017 5:16 PM 08/29/2017 6:57 PM Date Activated Date Inactivated Comments 08/13/2023 11:04 AM 08/24/2023 12:14 PM Date Activated Date Inactivated Comments 06/09/2023 4:27 AM 07/03/2023 1:50 PM Date Activated Date Inactivated Comments 08/27/2017 5:16 PM 08/29/2017 6:57 PM Date Activated Date Inactivated Comments 08/13/2023 11:04 AM 08/24/2023 12:14 PM Date Activated Date Inactivated Comments 06/09/2023 4:27 AM 07/03/2023 1:50 PM Date Activated Date Inactivated Comments 08/27/2017 5:16 PM 08/29/2017 6:57 PM Health Concerns Infection Onset Date Last Indicated Resolved Time COVID-19 Rule-Out 11/21/2023 11/21/202311/2011/21/2023 7:00 PM EDT Reason for Referral Specialty Diagnoses / Procedures Referred By Contac t Referred To Contact MR IMAGING Diagnoses Infective myositis of left lower extremity Procedures MRI PELVIS WO/W IVCON MRI PELVIS W/O & W/CONTRAST MATERIAL Varun Funez MD [address] [place] [address] [place] [address] Referral ID Status Reason Start Date Expiration Date V isits Requested Visits Authorized [id number] Closed Auto-Generate d Referral 11/06/2023 11/21/2024 1 1 Specialty Diagnoses / Procedures Referred By Contac t Referred To Contact Jf Waldron MD [address] [place] [address] [place] [address] Referral ID Status Reason Start Date Expiration Date V isits Requested Visits Authorized [id number] Pending Review 1 1 Additional Source Comments (unrecognized sect ion and content) No Status Records FoundNo Status Records FoundNo Status Records FoundNo Status Records FoundNo Status Records FoundNo Status Records FoundNo Status Records FoundNo Status Records FoundNo Status Records FoundNo Status Records Found INFORMATION SOURCE (unrecogn ized section and content) DATE CREATED AUTHOR 11/29/2021 [facility] DATE CREATED AUTHOR AUTHOR'S ORGANIZ ATION 12/27/2021 [facility] DATE CREATED AUTHOR AUTHOR'S ORGANIZ ATION 08/20/2022 [facility] DATE CREATED AUTHOR AUTHOR'S ORGANIZ ATION 11/05/2022 [facility] DATE CREATED AUTHOR AUTHOR'S ORGANIZ ATION 07/27/2023 [facility] DATE CREATED AUTHOR AUTHOR'S ORGANIZ ATION 12/01/2023 [facility] DATE CREATED AUTHOR AUTHOR'S ORGANIZ ATION 06/18/2024 [facility] DATE CREATED AUTHOR AUTHOR'S ORGANIZ ATION 01/16/2025 [facility] DATE CREATED AUTHOR AUTHOR'S ORGANIZ ATION 05/20/2025 [place] DATE CREATED AUTHOR AUTHOR'S ORGANIZ ATION 06/13/2025 [facility] REASON FOR VISIT (unrecogniz ed section and content) Reason Comments CoPat Start Reason Comments CoPat Agency Reason Comments CoPat Stop Reason Comments Critical Care Transport Reason Comments Consult Anemia Reason Comments Patient Question Reason Comments Results Reason Comments Radiology MRI Specialty Diagnoses / Procedures [facility] Referred To Contact MR IMAGING Diagnoses Infective myositis of left lower extremity Procedures MRI PELVIS WO/W IVCON MRI PELVIS W/O & W/CONTRAST MATERIAL Varun Funez MD [address] [place] [id number] [place] [address] Referral ID Status Reason Start Date Expiration Date V isits Requested Visits Authorized [id number] Closed Auto-Generate d Referral 11/06/2023 11/21/2024 1 1 Reason Comments Patient Update Reason Comments Locked in Syndrome Reason Onset Date Comments Opened In Error 03/11/2025 Reason Comments 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 RAJEEV SAENZ ER CARDIOMEGALY,UNSURE OF ANY RECENT TESTING DONE, NO DEVICES, SCHED W/BENJAMÍN, PT ON A STRETCHER, A TRACH/VENT PT, ON OXYGEN, REAL ESTATE RECRUITER WILL BE W/PT Specialty Diagnoses / Procedures [facility] Referred To Contact Cardiology Diagnoses Cardiomegaly Rajeev Salamanca, MOLD ENGRAVER-GRID MOLDER [address] [place] [id number] Phone: tel: fax: [facility] [address] [facility] [address] [place] [address] Phone: tel: fax: Referral ID Status Reason Start Date Expiration Date Visits Requested Visits Authorized [id number] Pending Review Specialty Services Required 04/09/2025 04/09/2026 1 1 Reason Onset Date Comments ABBIE 06/08/2025 Patient Care team informatio n (unrecognized section and content) Mental Telepathist Relationship Specialty Start Date End Date Sergei Root II, MD [address] [facility] [address] [place] [phone] PCP - General Internal Medicine 12/27/23 Mental Telepathist Relationship Specialty Start Date End Date Sergei Root II, MD [address] [place] [address] [place] [address] PCP - General Internal Medicine 12/27/23 Mental Telepathist Relationship Specialty Start Date End Date Sergei Root II, MD [address] [place] [address] PCP - General Internal Medicine 12/27/23 Mental Telepathist Relationship Specialty Start Date End Date Sergei Root II, MD [address] [place] [address] PCP - General Internal Medicine 12/27/23 Mental Telepathist Relationship Specialty Start Date End Date Sergei Root II, MD [address] [facility] [address] [place] [address] PCP - General Internal Medicine 12/27/23 Mental Telepathist Relationship Specialty Start Date End Date Sergei Root II, MD [address] [facility] [address] [place] [address] PCP - General Internal Medicine 12/27/23 Mental Telepathist Relationship Specialty Start Date End Date Sergei Root II, MD [address] [facility] [address] [place] [address] PCP - General Internal Medicine 12/27/23 Mental Telepathist Relationship Specialty Start Date End Date Sergei Root II, MD [address] [place] [address] PCP - General Internal Medicine 12/27/23 Mental Telepathist Relationship Specialty Start Date End Date Danii Mcneil MD [facility] [place] [address] PCP - External PCP Family Medicine 02/16/23 Sergei Root MD [address] [facility] [address] [place] [address] PCP - Medical [place] [employer] 02/08/24 09/08/99 Sergei Root MD [address] [facility] [address] [place] [address] PCP - General Internal Medicine 05/28/24 Mental Telepathist Relationship Specialty Start Date End Date Danii Mcneil MD [address] [place] [phone] PCP - External PCP Family Medicine 02/16/23 Sergei Root MD [address] [facility] [address] [place] [address] PCP - Medical [place] [employer] 02/08/24 09/08/99 Sergei Root MD [address] [facility] [address] [place] [address] PCP - General Internal Medicine 05/28/24 Mental Telepathist Relationship Specialty Start Date End Date Danii Mcneil MD [address] [place] [address] PCP - External PCP Family Medicine 02/16/23 Sergei Root MD [address] [facility] [address] [place] [address] PCP - Medical [place] [employer] 02/08/24 09/08/99 Mental Telepathist Relationship Specialty Start Date End Date Danii Mcneil MD [address] [place] [phone] PCP - External PCP Family Medicine 02/16/23 Sergei Root MD [address] [place] [address] [place] [address] PCP - Medical [place] [employer] 02/08/24 09/08/99 Sergei Root MD [address] [place] [place] [address] PCP - General Internal Medicine 05/28/24 Mental Telepathist Relationship Specialty Start Date End Date Danii Mcneil MD [address] [place] [address] PCP - External PCP Family Medicine 02/16/23 Sergei Root MD [address] [facility] [address] [place] [address] PCP - Medical [place] [employer] 02/08/24 09/08/99 Sergei Root MD [address] [facility] [address] [place] [address] PCP - General Internal Medicine 05/28/24 Mental Telepathist Relationship Specialty Start Date End Date Danii Mcneil MD [address] [place] [address] PCP - External PCP Family Medicine 02/16/23 Sergei Root MD [address] [facility] [address] [place] [address] PCP - Medical [place] [employer] 02/08/24 09/08/99 Mental Telepathist Relationship Specialty Start Date End Date Sergei Root MD [address], [facility] [address] [place] [address] PCP - General Internal Medicine 08/13/23 Mental Telepathist Relationship Specialty Start Date End Date Danii Mcneil MD [address] [place] [address] PCP - External PCP Family Medicine 02/16/23 Sergei Root MD [address] [place] [address] [place] [address] PCP - Medical [place] [employer] 02/08/24 09/08/99 Mental Telepathist Relationship Specialty Start Date End Date Danii Mcneil MD [address] [place] [address] PCP - External PCP Family Medicine 02/16/23 Sergei Root MD [address] [facility] [address] [place] [address] PCP - Medical [place] [employer] 02/08/24 09/08/99 Mental Telepathist Relationship Specialty Start Date End Date Danii Mcneil MD [address] [place] [address] PCP - External PCP Family Medicine 02/16/23 Sergei Root MD [address] [facility] [address] [place] [address] PCP - Medical [place] [employer] 02/08/24 09/08/99 Mental Telepathist Relationship Specialty Start Date End Date Sergei Root MD [address], [facility] [address] [place] [address] PCP - General Internal Medicine 08/13/23 Mental Telepathist Relationship Specialty Start Date End Date Danii Mcneil MD [address] [place] [address] PCP - External PCP Family Medicine 02/16/23 Sergei Root MD [address] [facility] [address] [place] [address] PCP - Medical [place] [employer] 02/08/24 09/08/99 Mental Telepathist Relationship Specialty Start Date End Date Danii Mcneil MD [address] [place] [address] PCP - External PCP Family Medicine 02/16/23 Sergei Root MD [address] [facility] [address] [place] [address] PCP - Medical [place] [employer] 02/08/24 09/08/99 Mental Telepathist Relationship Specialty Start Date End Date Danii Mcneil MD [address] [place] [address] PCP - External PCP Family Medicine 02/16/23 Sergei Root MD [address] [facility] [address] [place] [address] PCP - Medical [place] [employer] 02/08/24 09/08/99 Mental Telepathist Relationship Specialty Start Date End Date Sergei Root II, MD [address] [facility] [address] [place] [address] PCP - General Internal Medicine 12/27/23 Mental Telepathist Relationship Specialty Start Date End Date Danii Mcneil MD [address] [place] [address] PCP - External PCP Family Medicine 02/16/23 Sergei Root MD [address] [facility] [address] [place] [address] PCP - Medical [place] [employer] 02/08/24 09/08/99 Mental Telepathist Relationship Specialty Start Date End Date Danii Mcneil MD [address] [place] [address] PCP - External PCP Family Medicine 02/16/23 Mental Telepathist Relationship Specialty Start Date End Date Sergei Root MD [address], [facility] [address] [place] [address] PCP - General Internal Medicine 08/13/23 Mental Telepathist Relationship Specialty Start Date End Date Danii Mcneil MD [address] [place] [address] PCP - External PCP Family Medicine 02/16/23 Mental Telepathist Relationship Specialty Start Date End Date Sergei Root MD [address], [place] [address] [place] [address] PCP - General Internal Medicine 08/13/23 Mental Telepathist Relationship Specialty Start Date End Date Sergei Root MD [address], [place] [place] [address] PCP - General Internal Medicine 08/13/23 Mental Telepathist Relationship Specialty Start Date End Date Danii Mcneil MD [address] [place] [address] PCP - External PCP Family Medicine 02/16/23 Mental Telepathist Relationship Specialty Start Date End Date Sergei Root MD [address], [place] [place] [address] PCP - General Internal Medicine 08/13/23 Source Comments (unrecognize d section and content) In the event this informatio n is protected by the Federal Confidentiality of Alcohol and Drug Abuse Patient Records regulations: The Federal rules restrict any use of the information to criminally investigate or prosecute any alcohol or drug abuse patient.[facility] System[facility] the event this information is protected by the Federal Confidentiality of Alcohol and Drug Abuse Patient Records regulations: The Federal rules restrict any use of the information to criminally investigate or prosecute any alcohol or drug abuse patient.[facility] SystemIn the event this information is protected by the Federal Confidentiality of Alcohol and Drug Abuse Patient Records regulations: The Federal rules restrict any use of the information to criminally investigate or prosecute any alcohol or drug abuse patient.[facility] SystemIn the event this information is protected by the Federal Confidentiality of Alcohol and Drug Abuse Patient Records regulations: The Federal rules restrict any use of the information to criminally investigate or prosecute any alcohol or drug abuse patient.[facility] SystemIn the event this information is protected by the Federal Confidentiality of Alcohol and Drug Abuse Patient Records regulations: The Federal rules restrict any use of the information to criminally investigate or prosecute any alcohol or drug abuse patient.[facility] SystemIn the event this information is protected by the Federal Confidentiality of Alcohol and Drug Abuse Patient Records regulations: The Federal rules restrict any use of the information to criminally investigate or prosecute any alcohol or drug abuse patient.[facility] SystemIn the event this information is protected by the Federal Confidentiality of Alcohol and Drug Abuse Patient Records regulations: The Federal rules restrict any use of the information to criminally investigate or prosecute any alcohol or drug abuse patient.[facility] SystemIn the event this information is protected by the Federal Confidentiality of Alcohol and Drug Abuse Patient Records regulations: The Federal rules restrict any use of the information to criminally investigate or prosecute any alcohol or drug abuse patient.[facility] SystemIn the event this information is protected by the Federal Confidentiality of Alcohol and Drug Abuse Patient Records regulations: The Federal rules restrict any use of the information to criminally investigate or prosecute any alcohol or drug abuse patient.[facility] SystemIn the event this information is protected by the Federal Confidentiality of Alcohol and Drug Abuse Patient Records regulations: The Federal rules restrict any use of the information to criminally investigate or prosecute any alcohol or drug abuse patient.[facility] SystemIn the event this information is protected by the Federal Confidentiality of Alcohol and Drug Abuse Patient Records regulations: The Federal rules restrict any use of the information to criminally investigate or prosecute any alcohol or drug abuse patient.[facility] SystemIn the event this information is protected by the Federal Confidentiality of Alcohol and Drug Abuse Patient Records regulations: The Federal rules restrict any use of the information to criminally investigate or prosecute any alcohol or drug abuse patient.[facility] SystemIn the event this information is protected by the Federal Confidentiality of Alcohol and Drug Abuse Patient Records regulations: The Federal rules restrict any use of the information to criminally investigate or prosecute any alcohol or drug abuse patient.[facility] SystemIn the event this information is protected by the Federal Confidentiality of Alcohol and Drug Abuse Patient Records regulations: The Federal rules restrict any use of the information to criminally investigate or prosecute any alcohol or drug abuse patient.[facility] SystemIn the event this information is protected by the Federal Confidentiality of Alcohol and Drug Abuse Patient Records regulations: The Federal rules restrict any use of the information to criminally investigate or prosecute any alcohol or drug abuse patient.[facility] Administered Medications - up to 3 most [...] BE BASED ON THE PRIMARY CLINICAL RECORDS. [employer] [facility] provides no warranty or guarantee of the accuracy or completeness of information in this document.
== END 2025-06-23 14:52 | disposition home or self-care (01) ==
LOC: CT 14:51
PROVIDERS: PCP Internal Medicine; Visit Provider Nurse Practitioner Family
DX: R91.8 Other nonspecific abnormal finding of lung field (principal); I51.7 Cardiomegaly
CPT/HCPCS: 71250